=== PATIENT | female | born 1950 | race Caucasian/White ===

== ENCOUNTER → 2018-02-11 11:07 | Outpatient (CLI) | payer MEDICARE, OTHER, SELFPAY ==
[2018-02-11 15:40] LABS: Absolute Neutrophil Count 1.7 X10^3/uL (2.0-7.7); Basophil# 0.01 X10^3/uL; Basophil% 0.3 % (0-1); Eosinophil# 0.03 X10^3/uL; Eosinophils% 0.9 % (0-5); Hematocrit 42.8 % (37-47); Hemoglobin 13.1 g/dl (12.0-15.0); Lymphocyte % 37.2 % (19-41); Mean Corp Hgb Conc 30.6 g/gl (32-36); Mean Corpuscular Hgb 30.6 pg (27.0-32.0); Mean Platelet Vol. 10.5 fl (6.2-12.0); Monocyte# 0.25 X10^3/uL; Monocyte% 7.7 % (0-10); Neutrophil # 1.74 X10^3/uL (2.7-7.7); Neutrophil % 53.9 % (47-70); Platelet Count 159 K/mm3 (150-450); RBC Distribution Width CV 13.8 % (11.6-14.6); RBC Distribution Width SD 50.5 fl (35.1-43.9); Red Blood Count 4.28 M/mm3 (4.2-5.4); White Blood Count 3.2 K/mm3 (4.4-11.0)
[2018-02-11 15:48] LABS: BUN 15 mg/dL (7-18); Creatinine, Serum 0.85 mg/dL (0.55-1.02); Glucose 73 mg/dL (74-106)
[2018-02-11 15:49] LABS: ALB/GLOB Ratio 0.7 RATIO (0.9-2.4); AST(SGOT) 19 U/L (15-37); Alanine Aminotransfer ALT/SGPT 16 U/L (13-56); Albumin, Serum 2.9 g/dL (3.2-5.0); Alkaline Phosphatase 50 U/L (45-117); Anion Gap 6 (5-15); BUN/Creat Ratio 17.6 RATIO (10-20); Calcium,Total 8.7 mg/dL (8.5-10.1); Chloride 99 mmol/L (98-107); Cholesterol 182 mg/dL (200); EST Glomerular Filtration Rate 71 mL/min (>60); Est Glom Filt Rate - Afr Amer 86 mL/min (>60); High Density Lipoprotein 44 mg/dL; Potassium 4.4 mmol/L (3.5-5.1); Protein, Total 6.9 g/dL (6.4-8.2); Sodium Level 140 mmol/L (136-145); Thyroid Stim Hormone (TSH) 2.73 uIU/mL (0.358-3.74); Triglycerides 108 mg/dL; Very Low Density Lipoprotein 22 mg/dL (5-40)
[2018-02-11 15:51] LABS: POSITIVE COUNT NO; POSITIVE DIFFERENTIAL NO; POSITIVE MORPHOLOGY NO
== END ==
PROVIDERS: Family Provider Family Medicine; PCP Family Medicine; Visit Provider Family Medicine
DX: R10.9 Unspecified abdominal pain (principal); I10 Essential (primary) hypertension; E78.00 Pure hypercholesterolemia, unspecified; J43.9 Emphysema, unspecified; R53.83 Other fatigue; K59.00 Constipation, unspecified
CPT/HCPCS: 36415; 74018; 80053; 80061; 84443; 85025

== ENCOUNTER → 2018-02-11 11:41 | Outpatient (CLI) | payer MEDICARE, OTHER, SELFPAY ==
--- NOTE | 2018-02-11 12:20 | RAD_ITS ---
STUDY: X-RAY - ABDOMEN/PELVIS REASON FOR EXAM: Female, 67 years old. Abdominal pain and constipation for several years. Patient has history of hysterectomy for endometriosis. TECHNIQUE: Two AP supine views of the abdomen and pelvis. COMPARISON: CT of the abdomen and pelvis dated September 09, 2016. FINDINGS: Visualized heart appears to be enlarged. There are prominent bronchovascular markings at the lung bases. There is an unremarkable bowel gas pattern. There is no demonstrated free abdominal air. There is no obvious organomegaly, mass or dilated bowel. There are vascular calcifications of the common iliac arteries as well as the arteries of the proximal medial thighs.. There is large amount of bowel gas. Normal soft tissue structures. Patient has had previous thoracic spine surgery. The bones are osteopenic. There are mild degenerative changes of both hips. RAD/Abdomen Single View IMPRESSION: 1. Large amount of bowel gas. 2. No radiographic evidence of acute intra-abdominal disease. Electronically Signed: Danae Mayes MD at 7:25 EDT , Service support ,
== END ==
PROVIDERS: Family Provider Family Medicine; PCP Family Medicine; Visit Provider Family Medicine
DX: R10.9 Unspecified abdominal pain (principal); K59.00 Constipation, unspecified
CPT/HCPCS: 74018

== ENCOUNTER → 2018-06-24 09:28 | Outpatient (CLI) | payer MEDICARE, OTHER, SELFPAY ==
[2016-09-09 14:45] VITALS: BMI 29.3
--- NOTE | 2018-06-24 09:33 | RAD_ITS ---
STUDY: X-RAY CHEST REASON FOR EXAM: Female, 67 years old. Back pain TECHNIQUE: PA and lateral views of the chest. COMPARISON: 06/07/2014 FINDINGS: There is hyperinflation of the lungs consistent with chronic obstructive lung disease (COPD). There is no demonstrated pleural abnormality. There is mild cardiac enlargement. Normal mediastinum and mark. Normal visualized pulmonary arteries. There is atherosclerotic calcification of the aortic arch with tortuosity. Diffuse osteopenia. Posterior fusion hardware of the thoracic spine with stable exaggerated thoracic kyphosis. Normal visualized ribs, clavicles, and shoulders. There is no demonstrated abnormality of the visualized soft tissue structures of the upper abdomen. RAD/Chest PA and Lateral IMPRESSION: Stable, nonacute x-ray examination of the chest. Electronically Signed: David Edmondson MD at 18:29 EST , Service support ,
--- NOTE | 2018-06-24 09:33 | RAD_ITS ---
STUDY: X-RAY - THORACIC SPINE REASON FOR EXAM: Female, 67 years old. Back pain, prior back surgery TECHNIQUE: 3 view(s) of the thoracic spine were obtained. COMPARISON: CTA chest of 04/11/2014 FINDINGS: There is an increase in the normal thoracic kyphosis. There is no substantial scoliosis. There is demineralization of the thoracic spine. Multilevel posterior fusion of the thoracic spine standing compression of T6 and T7 although not well seen, compression appears more severe than prior CT. Atherosclerotic calcifications are identified. RAD/Thoracic Spine 3 Views IMPRESSION: Apparent increased compression of T6 and T7 but would better be evaluated with CT for assessment of interval change. Long segment thoracic posterior fusion. Electronically Signed: David Edmondson MD at 18:36 EST , Service support ,
== END ==
PROVIDERS: Family Provider Family Medicine; PCP Family Medicine; Referring Provider Family Medicine; Visit Provider Family Medicine
DX: J43.9 Emphysema, unspecified (principal); M54.6 Pain in thoracic spine
CPT/HCPCS: 71046; 72072

== ENCOUNTER → 2018-12-06 | Outpatient (CLI) | payer MEDICARE, OTHER, SELFPAY ==
[2018-12-06 15:09] LABS: Absolute Lymphocyte Count 1.05 X10^3/ul (0.83-4.51); Absolute Neutrophil Count 3.3 X10^3/uL (2.0-7.7); Basophil# 0.01 X10^3/uL; Basophil% 0.2 % (0-1); Eosinophil# 0.02 X10^3/uL; Eosinophils% 0.4 % (0-5); Hematocrit 45.1 % (37-47); Hemoglobin 14.3 g/dl (12.0-15.0); Lymphocyte # 1.05 X10^3/ul (4.0); Lymphocyte % 21.6 % (19-41); Mean Corp Hgb Conc 31.7 g/gl (32-36); Mean Corpuscular Volume 100.9 fL (81-99); Mean Platelet Vol. 10.3 fl (6.2-12.0); Monocyte# 0.47 X10^3/uL; Monocyte% 9.7 % (0-10); Neutrophil # 3.31 X10^3/uL (2.7-7.7); Neutrophil % 67.9 % (47-70); POSITIVE COUNT NO; POSITIVE DIFFERENTIAL NO; POSITIVE MORPHOLOGY NO; Platelet Count 143 K/mm3 (150-450); RBC Distribution Width CV 14.1 % (11.6-14.6); RBC Distribution Width SD 51.6 fl (35.1-43.9); Red Blood Count 4.47 M/mm3 (4.2-5.4); White Blood Count 4.9 K/mm3 (4.4-11.0)
[2018-12-06 15:27] LABS: ALB/GLOB Ratio 0.8 RATIO (0.9-2.4); AST(SGOT) 14 U/L (15-37); Alanine Aminotransfer ALT/SGPT 12 U/L (13-56); Alkaline Phosphatase 52 U/L (45-117); Anion Gap 5 (5-15); BUN 21 mg/dL (7-18); BUN/Creat Ratio 25.3 RATIO (10-20); Calcium,Total 8.9 mg/dL (8.5-10.1); Chloride 97 mmol/L (98-107); Creatinine, Serum 0.83 mg/dL (0.55-1.02); EST Glomerular Filtration Rate 73 mL/min (>60); Est Glom Filt Rate - Afr Amer 88 mL/min (>60); Globulin 3.9 g/dL (2.2-4.2); Glucose 98 mg/dL (74-106); Potassium 4.3 mmol/L (3.5-5.1); Protein, Total 6.9 g/dL (6.4-8.2); Sodium Level 139 mmol/L (136-145)
[2018-12-06 15:34] LABS: International Normalized Ratio 1.1; Prothrombin Time (Protime)PT. 13.7 SECONDS (11.7-14.9)
[2018-12-06 15:35] LABS: Partial Thromboplast Time 32.3 Seconds (24.1-36.2)
== END | disposition home or self-care (01) ==
PROVIDERS: Family Provider Family Medicine; PCP Family Medicine; Visit Provider Family Medicine
DX: R23.8 Other skin changes (principal); R23.3 Spontaneous ecchymoses; I10 Essential (primary) hypertension
CPT/HCPCS: 36415; 80053; 85025; 85610; 85730

== ENCOUNTER → 2018-12-13 | Outpatient (CLI) | payer MEDICARE, OTHER, SELFPAY ==
--- NOTE | 2018-12-13 09:52 | US_ITS ---
STUDY: ABDOMINAL ULTRASOUND REASON FOR EXAM: Female, 68 years old. Pain TECHNIQUE: Transabdominal ultrasound was performed with real-time and static pond scale imaging. TECHNICAL QUALITY: Adequate. COMPARISON: None. FINDINGS: Liver: The liver measures 16 cm. There is normal echogenicity of the liver. The bile ducts are within normal limits. There is hepatic color flow. The direction of portal flow is hepatopetal. There is no demonstrated mass lesion. Gallbladder: The gallbladder wall measures 2 mm. There is a negative sonographic Sung's sign. There is no pericholecystic fluid. There are no gallstones. Common Bile Duct (C.B.D.): The common bile duct measures 7 mm. Pancreas: Normal size of the head, body and tail of the pancreas. There is normal echogenicity of the pancreas. There is no demonstrated pancreatic mass or cyst. Spleen: The spleen is mildly enlarged. The spleen measures 11 cm. Right Kidney: The right kidney measures 11 cm. Normal renal cortex. There is a right renal 1.4 cm cyst and right renal 1 cm cyst.. There is mild right renal pelvis prominence. Left Kidney: The left kidney measures 12 cm. Normal renal cortex. There is a left renal 1.7 cm cyst and left renal 7 mm stone.. There is no left hydronephrosis. Aorta: The distal aorta measures 2.8 cm in diameter. I.V.C.: The IVC is patent. There is no ascites. US/Abdomen Complete IMPRESSION: No acute abdominal pathology identified. Bilateral renal cysts and left renal stone. Mild distal aorta ectasia. Mild right renal pelvis prominence. Mild splenomegaly. Electronically Signed: Elder Wood, at 21:31 EDT Tel , Service support ,
== END | disposition home or self-care (01) ==
LOC: US 09:50
PROVIDERS: Family Provider Family Medicine; PCP Family Medicine; Referring Provider Family Medicine; Visit Provider Family Medicine
DX: R10.12 Left upper quadrant pain (principal)
CPT/HCPCS: 76700

== ENCOUNTER 2019-03-03 16:14 | Inpatient (IN) | payer MEDICARE, OTHER, SELFPAY ==
[2019-03-03] VITALS (10 sets, daily range): BP systolic 75–166; BP diastolic 46–114; PULSE 57–76; RESP 15–18; TEMP 36.8–37.2; O2SAT 80–95; BMI 27.6; BMI 27.1
--- NOTE | 2019-03-03 16:36 | EKG12_ITS ---
Test Reason : SOB Blood Pressure : / mmHG Vent. Rate : 058 BPM Atrial Rate : 058 BPM P-R Int : 168 ms QRS Dur : 088 ms QT Int : 408 ms P-R-T Axes : 069 -07 049 degrees QTc Int : 400 ms Sinus bradycardia with marked sinus arrhythmia Low Voltage QRS (Limb Leads) Possible Left atrial enlargement Poor R- wave Progression Borderline ECG Confirmed by ROSA ROMERO, BENNY ([id number]), editor city JSOEPH EASLEY ([id number]) on 03/07/2019 10:22:11 AM Referred By: Quinn South Confirmed By:BENNY LEE MD
--- NOTE | 2019-03-03 17:15 | RAD_ITS ---
HISTORY:Weakness and not feeling well at all per patient. Weakness and not feeling well at all per patient. EXAM: XR Chest 1 View: COMPARISON: June 24, 2018 FINDINGS: # of images incl. paperwork: 2 LINES/DEVICES: None. LUNGS: Right basilar atelectasis. Mild interstitial thickening with hyper aeration seen within the upper lobe suspect for COPD similar to prior study. No consolidation, edema or effusion. No pneumothorax. MEDIASTINUM AND CARDIOVASCULAR STRUCTURES: Cardiac silhouette not enlarged. BONES AND SOFT TISSUES: Posterior rods and pedicle screws with metallic bridge seen at the superior aspect of the rods. Also at the mid to distal aspect. This is present on the prior study in similar RAD/Chest 1 View (Portable) IMPRESSION: Right basilar atelectasis The remainder the chest is similar at 1800 Reported and signed by: Melody Pleitez DO Electronically Signed: Melody Pleitez DO at 17:58 EDT Tel , Service support ,
[2019-03-03] MEDS: 0.9% Normal Saline 1,000 ML 999 ML IV ×3 (17:50→21:34)
[2019-03-03 18:01] LABS: Absolute Lymphocyte Count 1.16 X10^3/uL (0.83-4.51); Basophil# 0.02 X10^3/uL; Basophil% 0.4 % (0-1); Eosinophil# 0.01 X10^3/uL; Eosinophils% 0.2 % (0-5); Hematocrit 46.4 % (37-47); Lymphocyte # 1.16 X10^3/ul (4.0); Lymphocyte % 24.8 % (19-41); Mean Corp Hgb Conc 30.2 g/dL (32-36); Mean Corpuscular Hgb 31.7 pg (27.0-32.0); Monocyte# 0.42 X10^3/uL; NRBC Flagged by Analyzer 0 % (0-5); Neutrophil # 3.01 X10^3/uL (2.7-7.7); Neutrophil % 64.5 % (47-70); Platelet Count 145 K/mm3 (150-450); RBC Distribution Width CV 13.4 % (11.6-14.6); Red Blood Count 4.42 M/mm3 (4.2-5.4); White Blood Count 4.7 K/mm3 (4.4-11.0)
[2019-03-03 18:05] LABS: International Normalized Ratio 1.2; Prothrombin Time (Protime)PT. 14.5 SECONDS (11.7-14.9)
[2019-03-03 18:06] LABS: Partial Thromboplast Time 34.1 Seconds (24.1-36.2)
[2019-03-03 18:14] LABS: Lactic Acid 0.8 mmol/L (0.4-2.0)
[2019-03-03 18:16] LABS: ALB/GLOB Ratio 0.7 RATIO (0.9-2.4); AST(SGOT) 15 U/L (15-37); Alanine Aminotransfer ALT/SGPT 12 U/L (13-56); Albumin, Serum 3.2 g/dL (3.2-5.0); Alkaline Phosphatase 63 U/L (45-117); Anion Gap 1 (5-15); BUN 23 mg/dL (7-18); BUN/Creat Ratio 23.9 RATIO (10-20); Chloride 97 mmol/L (98-107); Creatinine, Serum 0.96 mg/dL (0.55-1.02); EST Glomerular Filtration Rate 61 mL/min (>60); Est Glom Filt Rate - Afr Amer 74 mL/min (>60); Estimated Creatinine Clearance 52.51 ml/min; Globulin 4.3 g/dL (2.2-4.2); Glucose 88 mg/dL (74-106); Protein, Total 7.5 g/dL (6.4-8.2); Sodium Level 138 mmol/L (136-145); Thyroid Stim Hormone (TSH) 1.34 uIU/mL (0.358-3.74)
[2019-03-03 20:14] LABS: Bacteria 0 SEEN /hpf (None Seen); Mucous, Urine 0 SEEN /hpf (<or=2+); Red Blood Cells-Urine 0 SEEN /hpf (0-5); White Blood Cells 0 SEEN /hpf (0-5)
[2019-03-03 20:35] LABS: Color, Urine Yellow (Yellow); Glucose, Dipstick Normal (Normal); Ketone-Dipstick Negative (Negative); Leukocyte Esterase-Dipstick Negative /ul (Negative); Nitrite-Dipstick Negative (Negative); Occult Blood-Urine Negative /ul (Negative); Protein-Dipstick 30 mg/dl (Negative); Specific Gravity, Urine 1.015 (1.002-1.030); Urine Bilirubin Dipstick Negative (Negative); Urine Clarity Clear (Clear); Urine Urobilinogen Normal (Normal)
[2019-03-03 20:57] LABS: Squamous Epithelial Cells - UA 0-5 SEEN /hpf (5-10)
--- NOTE | 2019-03-03 21:12 | PCM.HP.STD ---
Problem List (1) Generalized weakness Status: Acute (2) Hypotension Status: Acute History of Present Illness Date of Admission: 03/03/19 Chief Complaint: weakness The patient is a 68 year old F with a significant history of COPD; chronic back pain and this disease with rods in her back; and hyperlipidemia who presents emergency department with generalized weakness. On day of presentation patient was too weak that she could not go about her activities of daily living. Typically patients get around with her wheelchair and can stand up momentarily to do some chores. However on the day of presentation she was too weak to get around. At the emergency department her blood pressure was found to be low but patient reported that her blood pressure is typically low with systolic in the 80s even though she still continues to be on blood pressure medications. Past Medical History Medical History: Medical History (Last Reviewed 03/04/19 @ 05:44 by Quinn South MD) HTN (hypertension) I10 Allergies No Known Allergies Allergy (Verified 09/09/16 14:43) Home Medications: Ambulatory Orders Medication Instructions Recorded Lisinopril/Hydrochlorothiazide 1 tablet PO DAILY 10/18/13 [Zestoretic Tablet] Gabapentin [Neurontin] 600 mg PO BID 03/03/19 Gemfibrozil 600 mg PO BID 03/03/19 Morphine Sulfate [Morphine Sulfate 30 mg PO DAILY 03/03/19 ER] Morphine Sulfate [Morphine Sulfate 60 mg PO DAILY 03/03/19 ER] Pregabalin 50 mg PO TID 03/03/19 Smz/Tmp Ds [Bactrim Ds] 1 tab PO BID 03/03/19 Surgical History: - - Rods at the back. Lives: Spouse/ Significant Other Smoking Status: Current every day smoker Tobacco Use: Cigarettes Alcohol: None - *Family History Maternal History Items: Heart Disease Paternal History Items: Heart Disease Review of Systems Constitutional: Reports: Weakness, Fatigue. Denies: Chills, Fever, Weight Change HEENT: Denies: Head Aches, Sinus Congestion, Sinus Drainage Cardiovascular: Denies: Chest Pain, Palpitations Respiratory: Denies: Cough, Shortness of breath at rest, Sputum production Gastrointestinal: Denies: Abdominal Pain, Nausea, Vomiting Genitourinary: Denies: Dysuria Musculoskeletal: Reports: Back Pain - chronic. Denies: Joint Pain, Joint Tenderness Skin: Reports: Wounds - open area at coccyx.. Denies: Rash Neurological: Denies: Numbness, Tingling, Focal weakness Psychiatric: Denies: Anxiety, Depression, Homicidal Ideations, Suicidal Ideations Hematologic/ Lymphatic: Denies: Easy Bruising, Easy Bleeding VTE Information - Inpt Only VTE Present on Admission: No VTE Mechan Device Prophylaxis: None VTE Pharm Prophylaxis ordered?: Yes Patient Problems: Active and Suspected Problems (Last Reviewed 03/04/19 @ 05:44 by Quinn South MD) Generalized weakness (Acute) Hypotension (Acute) - Physical Exam General: Oriented x3, Lethargic HEENT: Atraumatic, PERRLA, EOMI, Normocephalic Neck: Supple, No JVD, Negative Carotid Bruits Lungs: Clear to auscultation Cardiovascular: Regular rate, Normal S1, Normal S2, No murmurs Abdomen: Bowel Sounds Present, Soft, Non Tender Extremities: No edema, Capillary Refill Less than 3 Seconds Skin: Ulcer/ Wound - ulcer at coccyx. Musculoskeletal: No Muscle Wasting Neurological: Cranial nerves II-XII grossly intact Psych/Mental Status: Impulsive, - - Tangential conversation. At times changes answers. Vital Signs Temp Pulse Resp BP Pulse Ox 98.2 F 72 15 85/61 L 93 03/03/19 19:21 03/03/19 20:00 03/03/19 20:00 03/03/19 20:00 03/03/19 20:00 Oxygen Flow Rate (L/min) 5 Oxygen Delivery Method Nasal Cannula Weight: 77.8 kg Body Mass Index (BMI) 27.6 Intake and Output for Last 24 Hours 03/01/19 03/02/19 03/03/19 23:59 23:59 23:59 Intake Total 1000 / 1000 Balance 1000 / 1000 Laboratory Tests Past 24 Hrs 03/03/19 03/03/19 03/03/19 17:40 17:40 17:40 WBC 4.7 RBC 4.42 Hgb 14.0 Hct 46.4 MCV 105.0 H MCH 31.7 MCHC 30.2 L RDW Std Deviation 52.0 H RDW Coeff of [place]ver[place] 13.4 Plt Count 145 L MPV 10.0 Immature Gran % (Auto) 1.100 H Neut % (Auto) 64.5 Lymph % (Auto) 24.8 [place] % (Auto) 9.0 Eos % (Auto) 0.2 Baso % (Auto) 0.4 Absolute Neuts (auto) 3.0 Absolute Lymphs (auto) 1.16 Nucleated RBC % 0 PT 14.5 INR 1.2 APTT 34.1 Sodium 138 Potassium 5.0 Chloride 97 L Carbon Dioxide 40.0 H Anion Gap 1 L BUN 23 H Creatinine 0.96 Estim Creat Clear Calc 52.51 Est GFR (MDRD) Af Amer 74 Est GFR (MDRD) Non-Af 61 BUN/Creatinine Ratio 23.9 H Glucose 88 Lactic Acid Calcium 9.0 Total Bilirubin 0.30 AST 15 ALT 12 L Alkaline Phosphatase 63 Troponin I < 0.015 Total Protein 7.5 Albumin 3.2 Globulin 4.3 H Albumin/Globulin Ratio 0.7 L TSH 1.34 Urine Color Urine Clarity Urine pH Ur Specific [place] Urine Protein Urine Glucose (UA) Urine Ketones Urine Occult Blood Urine Nitrite Urine Bilirubin Urine Urobilinogen Ur Leukocyte Esterase Urine RBC Urine WBC Ur Squamous Epith Cells Urine Bacteria Urine Mucus 03/03/19 03/03/19 17:40 20:00 WBC RBC Hgb Hct MCV MCH MCHC RDW Std Deviation RDW Coeff of [place] Plt Count MPV Immature Gran % (Auto) Neut % (Auto) Lymph % (Auto) [place] % (Auto) Eos % (Auto) Baso % (Auto) Absolute Neuts (auto) Absolute Lymphs (auto) Nucleated RBC % PT INR APTT Sodium Potassium Chloride Carbon Dioxide Anion Gap BUN Creatinine Estim Creat Clear Calc Est GFR (MDRD) Af Amer Est GFR (MDRD) Non-Af BUN/Creatinine Ratio Glucose Lactic Acid 0.8 Calcium Total Bilirubin AST ALT Alkaline Phosphatase Troponin I Total Protein Albumin Globulin Albumin/Globulin Ratio TSH Urine Color Yellow Urine Clarity Clear Urine pH 6.0 Ur Specific [place] 1.015 Urine Protein 30 H Urine Glucose (UA) Normal Urine Ketones Negative Urine Occult Blood Negative Urine Nitrite Negative Urine Bilirubin Negative Urine Urobilinogen Normal Ur Leukocyte Esterase Negative Urine RBC 0 SEEN Urine WBC 0 SEEN Ur Squamous Epith Cells 0-5 SEEN Urine Bacteria 0 SEEN Urine Mucus 0 SEEN Assessment/Plan All Active Problems (Last Reviewed 03/04/19 @ 05:44 by Quinn South MD) Generalized weakness (Acute) Hypotension (Acute) The patient is a 68 year old F with a significant history of COPD; chronic back pain and this disease with rods in her back; and hyperlipidemia who presents emergency department with generalized weakness; and hypotension. Generalized weakness Patient is on multiple sedating medications. Will de-escalate her home morphine and gabapentin. Hold Lyrica. Patient working PT and OT. Check TSH Hypotension Reported chronic. Would hold home lisinopril and hydrochlorothiazide. De-escalate sedating medications as above Acute Encephalopathy Likely due to multiple drug use and hypertension. De-escalate medications as above DVT Prophylaxis Subcutaneous lovenox Code Visit OBSV E&M: 29030 Initial observation care L3
--- NOTE | 2019-03-03 21:23 | ED.VISSUMM ---
- ER Visit Summary Date of Service: 03/03/19 Chief Complaint: Weakness History of Present Illness: The patient is a 68 F who presents with generalized weakness. Symptoms have been going on for some time, but they were worse over the last 2 days. Nothing seemed to bring this on. She never had this before. She lives with her . She can barely stand or use the bathroom. She required EMS to bring her to the ED for evaluation. She has no new symptoms otherwise. No other complaints. She has chronic back pain with hardware. She takes Bactrim to suppress history of infections. She is denying any increasing back pain or fevers. Denies any focal neurologic symptoms. Her review of systems otherwise is completely negative. She denies any new medications. Physical Examination: Blood pressure 95/75. Heart rate 57. Afebrile and otherwise vitals unremarkable. Alert and oriented. No acute distress. Speaking full sentences without any distress. Moving comfortably in bed. Head and neck are atraumatic. Heart regular rate and rhythm. Lungs clear. Abdomen soft and nontender. Extremities nontender. Strength and sensation intact, symmetric. No focal or lateralizing neurologic abnormalities. Test Results: EKG showed sinus rhythm at a rate of 58. No acute abnormalities. Chest x-ray showed right basilar atelectasis. Nothing else acute or abnormal. Platelets stable 145, metabolic panel unremarkable. Coags normal. Urinalysis normal. Troponin and lactate normal. Cultures pending. TSH normal. Emergency Department Course and Treatment: Patient presents with generalized weakness. She has no other symptoms to narrow down the differential diagnosis. I checked a broad work-up. Results as above. On reevaluation, patient has some intermittent low blood pressures. She is mentating well. Heart rate is in the 50s. She says this is normal. I looked back her old vital signs from 2017, and they were within normal limits. She is taking lisinopril and HCTZ. No other blood pressure medications. I suspect that these may be contributing and that she may benefit from discontinuing these. I find no other cause for her hypotension emergently. I find no other cause for her generalized weakness. She is not doing well at home and is concerned about safety. I contacted the hospitalist who will admit for further care. Treatment Plan: As above Disposition: Admission Impression: 1. Generalized weakness This note was generated with [employer] software. It may contain incorrect words, spelling, and punctuation that were not noted in review of the chart prior to signing ED Disposition - Plan for ED Patient: Referrals: Matthew Valdivia DO [Primary Care Provider] -
[2019-03-03] MEDS: Smz/Tmp Ds Tablet 1 TABLET PO (23:31)
[2019-03-03] MEDS: Gemfibrozil 600 MG Tablet PO (23:31)
[2019-03-03] MEDS: Gabapentin 300 MG Capsule PO (23:31)
[2019-03-03] MEDS: Menthol/Lanolin/Calamine/Znox 113 GM Tube 1 APPLIC TOPICAL (23:31)
[2019-03-04] VITALS (11 sets, daily range): BP systolic 101–131; BP diastolic 40–78; PULSE 59–84; RESP 15–19; TEMP 36.8–37.2; O2SAT 90–95
[2019-03-04] MEDS: Gemfibrozil 600 MG Tablet PO ×2 (06:47→18:34)
[2019-03-04 07:56] LABS: Absolute Lymphocyte Count 0.63 X10^3/uL (0.83-4.51); Absolute Neutrophil Count 2.9 X10^3/uL (2.0-7.7); Basophil# 0.01 X10^3/uL; Basophil% 0.3 % (0-1); Hemoglobin 13.4 g/dL (12.0-15.0); Lymphocyte # 0.63 X10^3/ul (4.0); Lymphocyte % 16.8 % (19-41); Mean Corp Hgb Conc 31.2 g/dL (32-36); Mean Corpuscular Hgb 31.9 pg (27.0-32.0); Mean Corpuscular Volume 102.4 fL (81-99); Mean Platelet Vol. 10.3 fl (6.2-12.0); Monocyte# 0.19 X10^3/uL; Monocyte% 5.1 % (0-10); NRBC Flagged by Analyzer 0 % (0-5); Neutrophil # 2.88 X10^3/uL (2.7-7.7); POSITIVE COUNT YES; Platelet Count 102 K/mm3 (150-450); RBC Distribution Width CV 13.2 % (11.6-14.6); RBC Distribution Width SD 49.7 fl (35.1-43.9); White Blood Count 3.7 K/mm3 (4.4-11.0)
[2019-03-04 08:04] LABS: Differential Indicated SCAN CRITERIA MET
[2019-03-04 08:23] LABS: Anion Gap 4 (5-15); BUN 20 mg/dL (7-18); BUN/Creat Ratio 29.1 RATIO (10-20); Calcium,Total 8.7 mg/dL (8.5-10.1); Chloride 106 mmol/L (98-107); Creatinine, Serum 0.69 mg/dL (0.55-1.02); EST Glomerular Filtration Rate 90 mL/min (>60); Est Glom Filt Rate - Afr Amer 109 mL/min (>60); Estimated Creatinine Clearance 50.41 ml/min; Glucose 72 mg/dL (74-106); Potassium 4.3 mmol/L (3.5-5.1); Sodium Level 136 mmol/L (136-145)
[2019-03-04] MEDS: Smz/Tmp Ds Tablet 1 TABLET PO ×2 (10:58→18:34)
[2019-03-04] MEDS: morphine SR 15 MG Tablet PO ×2 (10:58→21:00)
[2019-03-04] MEDS: Gabapentin 300 MG Capsule PO ×2 (10:58→21:01)
[2019-03-04] MEDS: Enoxaparin 40 MG/0.4 ML Syringe SC (10:59)
[2019-03-04 11:56] LABS: Magnesium 1.7 mg/dL (1.6-2.6)
--- NOTE | 2019-03-04 13:27 | PN_ITS ---
Patient Problems: Active and Suspected Problems (Last Reviewed 03/04/19 @ 05:44 by Quinn South MD) Generalized weakness (Acute) Hypotension (Acute) Subjective: Patient seen and examined. She complains of leg cramps and feeling tired. Denies chest pain, dizziness. She is wheelchair-bound at baseline and does not move around much. She is on 5 L of oxygen from chronic COPD. She continues to smoke. Discussed with the patient and the at the bedside, depending on what physical and Occupational Therapy says patient will be eligible for subacute care. Vitals/I&O's: Vital Signs Temp Pulse Resp BP Pulse Ox 98.7 F 68 15 114/40 L 90 03/04/19 09:01 03/04/19 12:09 03/04/19 09:01 03/04/19 09:01 03/04/19 11:10 Oxygen Flow Rate (L/min) 5 Oxygen Delivery Method Nasal Cannula Weight: 76.1 kg Body Mass Index (BMI) 27.1 Intake and Output for Last 24 Hours 03/02/19 03/03/19 03/04/19 23:59 23:59 23:59 Intake Total 2500 / 2600 150 / 150 Balance 2500 / 2600 150 / 150 General: Alert, Oriented x3, Cooperative, - - on 5L oxygen HEENT: Atraumatic, PERRLA, EOMI, Normocephalic Oral: Moist Mucosa Neck: Supple Lungs: Clear to auscultation, Normal air movement Cardiovascular: Regular rate, Regular Rhythm, Normal S1, Normal S2, No murmurs Abdomen: Bowel Sounds Present, Soft, Non Tender, Non-Distended, No Hepato- splenomegaly Extremities: No edema Skin: No rashes, No breakdown Musculoskeletal: No Tenderness to Palpation of Joints or Extremities Lymphatic: No Cervical, Supraclavicular, or Inguinal Adenopathy Neurological: Cranial nerves II-XII grossly intact, Neuro grossly intact - except for weakness in left lower extremity. Psych/Mental Status: Normal Affect, Appropriate Laboratory Results 03/03/19 17:40: Sodium 138, Potassium 5.0, Chloride 97 L, Carbon Dioxide 40.0 H, Anion Gap 1 L, BUN 23 H, Creatinine 0.96, Estim Creat Clear Calc 52.51, Est GFR (MDRD) Af Amer 74, Est GFR (MDRD) Non-Af 61, BUN/Creatinine Ratio 23.9 H, Glucose 88, Calcium 9.0, Total Bilirubin 0.30, AST 15, ALT 12 L, Alkaline Phosphatase 63, Troponin I < 0.015, Total Protein 7.5, Albumin 3.2, Globulin 4.3 H, Albumin/Globulin Ratio 0.7 L, TSH 1.34 03/03/19 17:40: WBC 4.7, RBC 4.42, Hgb 14.0, Hct 46.4, MCV 105.0 H, MCH 31.7, MCHC 30.2 L, RDW Std Deviation 52.0 H, RDW Coeff of Alverto 13.4, Plt Count 145 L, MPV 10.0, Immature Gran % (Auto) 1.100 H, Neut % (Auto) 64.5, Lymph % (Auto) 24.8, [place] % (Auto) 9.0, Eos % (Auto) 0.2, Baso % (Auto) 0.4, Absolute Neuts (auto) 3.0, Absolute Lymphs (auto) 1.16, Nucleated RBC % 0 03/03/19 17:40: PT 14.5, INR 1.2, APTT 34.1 03/03/19 17:40: Lactic Acid 0.8 03/03/19 20:00: Urine Color Yellow, Urine Clarity Clear, Urine pH 6.0, Ur Specific [place] 1.015, Urine Protein 30 H, Urine Glucose (UA) Normal, Urine Ketones Negative, Urine Occult Blood Negative, Urine Nitrite Negative, Urine Bilirubin Negative, Urine Urobilinogen Normal, Ur Leukocyte Esterase Negative, Urine RBC 0 SEEN, Urine WBC 0 SEEN, Ur Squamous Epith Cells 0-5 SEEN, Urine Bacteria 0 SEEN, Urine Mucus 0 SEEN 03/04/19 07:35: WBC 3.7 L, RBC 4.20, Hgb 13.4, Hct 43.0, MCV 102.4 H, MCH 31.9, MCHC 31.2 L, RDW Std Deviation 49.7 H, RDW Coeff of [place]verto 13.2, Plt Count 102 L, MPV 10.3, Immature Gran % (Auto) 0.800, Neut % (Auto) 77.0 H, Lymph % (Auto) 16.8 L, [place] % (Auto) 5.1, Eos % (Auto) 0.0, Baso % (Auto) 0.3, Absolute Neuts (auto) 2.9, Absolute Lymphs (auto) 0.63 L, Nucleated RBC % 0 03/04/19 07:35: Sodium 136, Potassium 4.3, Chloride 106, Carbon Dioxide 26.0, Anion Gap 4 L, BUN 20 H, Creatinine 0.69, Estim Creat Clear Calc 50.41, Est GFR (MDRD) Af Amer 109, Est GFR (MDRD) Non-Af 90, BUN/Creatinine Ratio 29.1 H, Glucose 72 L, Calcium 8.7 03/04/19 11:30: Magnesium 1.7 Current Medications Acetaminophen (Tylenol) 650 mg PO Q6H PRN PRN PRN Reason: Mild pain 1-3/Temp > 100.7 F Calamine/Phenol (Calmoseptine Ointment) 1 applic TOPICAL TID [facility]; Protocol Last Admin: 03/04/19 06:47 Dose: Not Given Documented by: Dextrose (D50w Syringe) 0 gm IV X1 PRN; Protocol PRN Reason: Hypoglycemia Enoxaparin Sodium (Lovenox) 40 mg SC DAILY@1000 [facility] Last Admin: 03/04/19 10:59 Dose: 40 mg Documented by: Gabapentin (Neurontin) 300 mg PO BID [facility] Last Admin: 03/04/19 10:58 Dose: 300 mg Documented by: Gemfibrozil (Lopid) 600 mg PO BIDAC [facility] Last Admin: 03/04/19 06:47 Dose: 600 mg Documented by: Glucagon () 1 mg IM .X1 PRN PRN Reason: Hypoglycemia Sodium Chloride () 250 mls @ 15 mls/hr IV .[id number] PRN PRN Reason: SALINE FLUSH Morphine Sulfate (Ms Contin) 15 mg PO BID [facility] Last Admin: 03/04/19 10:58 Dose: 15 mg Documented by: Nicotine (Nicoderm Cq (Pbkc)) 21 mg TRANSDERM. DAILY [facility] Nicotine Polacrilex ([place] Nicotine (Pbkc)) 4 mg PO Q2H PRN PRN PRN Reason: Nicotine Craving Nutritional Formula (Lactose Free) (Ensure Enlive) 120 ml PO 4X/DAY [facility] Last Admin: 03/04/19 10:59 Dose: 120 ml Documented by: Sodium Chloride () 5 - 15 ml IV UD PRN PRN Reason: SALINE FLUSH Trimethoprim/[facility]ulfamethox[facility]s) [facility] Last Admin: 03/04/19 10:58 Dose: 1 tablet Documented by: Medical Necessity - Tobacco Use Smoking Status: Current every day smoker Tobacco Use: Cigarettes Assessment/Plan All Active Problems (Last Reviewed 03/04/19 @ 05:44 by Quinn South MD) Generalized weakness (Acute) Hypotension (Acute) 68 y/o female with PMHx of COPD and chronic back pain, s/p multiple back santana rgeries,wheel- chair bound who comes in with progressive generalized weakness and hypotension. 1. Hypotension, medication side effect, improved on IV fluids Off lisinopril, hydrochlorothiazide Continue to monitor 2. Progressive debility in a patient who is wheelchair-bound, history of multiple back surgeries Normal blood work, will wait for PT and OT to evaluate May need subacute care in the nursing facility 3. Hypomagnesemia, symptomatic leg cramps, replaced, recheck in am 4. Acute encephalopthy continue to polypharmacy, Lyrica held. Continue to monitor off Lyrica 5. DVT PPx- Lovenox SC Code Visit Inpatient E&M: 45200 Subs Hosp L2
[2019-03-04] MEDS: Menthol/Lanolin/Calamine/Znox 113 GM Tube 1 APPLIC TOPICAL ×2 (15:14→21:01)
--- NOTE | 2019-03-04 15:50 | CASEMGMT ---
Social Work Consult: SNF placement Informant: Dr. Mcgee Met with patient and patient family in room. Introduced self as well as social work msw role. Patient prior level of wheelchair with assistance from spouse. Patient and patient family believe that patient is weaker and unable to return to home at prior level. Dr. Mcgee is recommending half-way placement for patient. This social work msw providing patient with list of Nursing homes for patient to choose from. Patient and patient family planning to discuss further over the weekend but that this time [facility] is first choice. Support provided. Social Work to continue to follow. Dominique Maddox MSW, BRIAN
[2019-03-04] MEDS: Ondansetron 4 MG/2 ML Vial IV (17:43)
[2019-03-05] VITALS (14 sets, daily range): BP systolic 94–135; BP diastolic 45–63; PULSE 51–70; RESP 16–20; TEMP 36.8–37.3; O2SAT 94–99
[2019-03-05] MEDS: Menthol/Lanolin/Calamine/Znox 113 GM Tube 1 APPLIC TOPICAL ×3 (06:59→21:50)
[2019-03-05] MEDS: Gemfibrozil 600 MG Tablet PO ×2 (07:00→16:23)
[2019-03-05] MEDS: Enoxaparin 40 MG/0.4 ML Syringe SC (10:51)
[2019-03-05] MEDS: Gabapentin 300 MG Capsule PO ×2 (10:51→21:42)
[2019-03-05] MEDS: morphine SR 15 MG Tablet PO ×2 (10:51→21:45)
[2019-03-05] MEDS: Smz/Tmp Ds Tablet 1 TABLET PO ×2 (10:51→16:23)
[2019-03-05 11:32] LABS: Anion Gap 4 (5-15); BUN 19 mg/dL (7-18); BUN/Creat Ratio 24.4 RATIO (10-20); Calcium,Total 8.6 mg/dL (8.5-10.1); Chloride 100 mmol/L (98-107); Creatinine, Serum 0.78 mg/dL (0.55-1.02); EST Glomerular Filtration Rate 78 mL/min (>60); Est Glom Filt Rate - Afr Amer 95 mL/min (>60); Estimated Creatinine Clearance 50.41 ml/min; Glucose 122 mg/dL (74-106); Magnesium 1.9 mg/dL (1.6-2.6); Potassium 3.8 mmol/L (3.5-5.1); Sodium Level 140 mmol/L (136-145)
--- NOTE | 2019-03-05 13:28 | PN_ITS ---
Patient Problems: Active and Suspected Problems (Last Reviewed 03/04/19 @ 05:44 by Quinn South MD) Generalized weakness (Acute) Hypotension (Acute) Subjective: Patient was seen and examined. Denied any new complains. She appears more alert today. Sitting in a chair, drinking coffee. No more leg cramps Objective: Physical exam: General: Alert, Oriented x3, Cooperative, - - on 5L oxygen HEENT: Atraumatic, PERRLA, EOMI, Normocephalic Oral: Moist Mucosa Neck: Supple Lungs: Clear to auscultation, Normal air movement Cardiovascular: Regular rate, Regular Rhythm, Normal S1, Normal S2, No murmurs Abdomen: Bowel Sounds Present, Soft, Non Tender, Non-Distended, No Hepato- splenomegaly Extremities: No edema Skin: No rashes, No breakdown Musculoskeletal: No Tenderness to Palpation of Joints or Extremities Lymphatic: No Cervical, Supraclavicular, or Inguinal Adenopathy Neurological: Cranial nerves II-XII grossly intact, Neuro grossly intact - except for weakness in left lower extremity. Psych/Mental Status: Normal Affect, Appropriate Vitals/I&O's: Vital Signs Temp Pulse Resp BP Pulse Ox 98.3 F 56 L 18 100/61 96 03/05/19 09:20 03/05/19 11:20 03/05/19 09:20 03/05/19 09:20 03/05/19 09:20 Oxygen Flow Rate (L/min) 3 Oxygen Delivery Method Nasal Cannula Weight: 76.1 kg Body Mass Index (BMI) 27.1 Intake and Output for Last 24 Hours 03/03/19 03/04/19 03/05/19 23:59 23:59 23:59 Intake Total 2500 / 2600 1214 / 1214 240 / 240 Balance 2500 / 2600 1214 / 1214 240 / 240 Microbiology Past 72 Hours 03/03/19 20:00 Urine, Clean Catch Urine Culture - Preliminary Culture exhibits no growth. Laboratory Results 03/05/19 10:50: Sodium 140, Potassium 3.8, Chloride 100, Carbon Dioxide 36.0 H, Anion Gap 4 L, BUN 19 H, Creatinine 0.78, Estim Creat Clear Calc 50.41, Est GFR (MDRD) Af Amer 95, Est GFR (MDRD) Non-Af 78, BUN/Creatinine Ratio 24.4 H, Glucose 122 H, Calcium 8.6, Magnesium 1.9 Current Medications Acetaminophen (Tylenol) 650 mg PO Q6H PRN PRN PRN Reason: Mild pain 1-3/Temp > 100.7 F Calamine/Phenol (Calmoseptine Ointment) 1 applic TOPICAL TID [facility]; Protocol Last Admin: 03/05/19 06:59 Dose: 1 applicatio Documented by: Dextrose (D50w Syringe) 0 gm IV X1 PRN; Protocol PRN Reason: Hypoglycemia Enoxaparin Sodium (Lovenox) 40 mg SC DAILY@1000 [facility] Last Admin: 03/05/19 10:51 Dose: 40 mg Documented by: Gabapentin (Neurontin) 300 mg PO BID [facility] Last Admin: 03/05/19 10:51 Dose: 300 mg Documented by: Gemfibrozil (Lopid) 600 mg PO BIDAC [facility] Last Admin: 03/05/19 07:00 Dose: 600 mg Documented by: Glucagon () 1 mg IM .X1 PRN PRN Reason: Hypoglycemia Sodium Chloride () 250 mls @ 15 mls/hr IV .[id number] PRN PRN Reason: SALINE FLUSH Morphine Sulfate (Ms Contin) 15 mg PO BID [facility] Last Admin: 03/05/19 10:51 Dose: 15 mg Documented by: Nicotine (Nicoderm Cq (Pbkc)) 21 mg TRANSDERM. DAILY [facility] Last Admin: 03/05/19 10:51 Dose: 21 mg Documented by: Nicotine Polacrilex (Rugby Nicotine (Pbkc)) 4 mg PO Q2H PRN PRN PRN Reason: Nicotine Craving Nutritional Formula (Lactose Free) (Ensure Enlive) 120 ml PO 4X/DAY [facility] Last Admin: 03/05/19 10:51 Dose: 120 ml Documented by: Ondansetron HCl (Zofran) 4 mg IV Q8H PRN PRN PRN Reason: NAUSEA Last Admin: 03/04/19 17:43 Dose: 4 mg Documented by: Sodium Chloride () 5 - 15 ml IV UD PRN PRN Reason: SALINE FLUSH Trimethoprim/Sulfamethoxazole (Bactrim Ds) 1 tablet PO BIDCM [facility] Last Admin: 03/05/19 10:51 Dose: 1 tablet Documented by: Medical Necessity - Tobacco Use Smoking Status: Current every day smoker Tobacco Use: Cigarettes Assessment/Plan All Active Problems (Last Reviewed 03/04/19 @ 05:44 by Quinn South MD) Generalized weakness (Acute) Hypotension (Acute) 68 y/o female with PMHx of COPD and chronic back pain, s/p multiple back surgeries,wheel-chair bound who comes in with progressive generalized weakness and hypotension. 1. Hypotension secondary to medication side effect, BP appears improved compared to BP on admission Continue to monitor off lisinopril and hydrochlorothiazide 2. Acute encephalopathy secondary to polypharmacy, improved. Continue to hold Lyrica. 3. Hypomagnesemia, replaced, recheck in am 4. Progressive debility in a patient who is wheelchair-bound, history of multiple back surgeries Discharge planning with geriatric social work professor/case management in progress 5. Nicotine dependence, on replacement 6. DVT PPx- Lovenox SC 7. Disposition: DC to SNF when bed is available, Code Visit Inpatient E&M: 05091 Subs Hosp L2
[2019-03-05] MEDS: 0.9% NaCl Peripheral Flush Adult/Peds IV ×2 (15:11→17:22)
--- NOTE | 2019-03-05 17:25 | NURSING ---
read and reviewed all SN documentation
[2019-03-06] VITALS (11 sets, daily range): BP systolic 92–140; BP diastolic 44–64; PULSE 52–70; RESP 11–18; TEMP 36.8–37.2; O2SAT 94–98
[2019-03-06] MEDS: Menthol/Lanolin/Calamine/Znox 113 GM Tube 1 APPLIC TOPICAL ×3 (05:56→21:14)
[2019-03-06] MEDS: Gemfibrozil 600 MG Tablet PO ×2 (05:56→16:51)
[2019-03-06 06:29] LABS: Anion Gap 6 (5-15); BUN 19 mg/dL (7-18); BUN/Creat Ratio 24.7 RATIO (10-20); Calcium,Total 8.7 mg/dL (8.5-10.1); Chloride 99 mmol/L (98-107); Creatinine, Serum 0.77 mg/dL (0.55-1.02); EST Glomerular Filtration Rate 79 mL/min (>60); Est Glom Filt Rate - Afr Amer 96 mL/min (>60); Estimated Creatinine Clearance 50.41 ml/min; Glucose 82 mg/dL (74-106); Potassium 3.9 mmol/L (3.5-5.1); Sodium Level 142 mmol/L (136-145)
[2019-03-06] MEDS: morphine SR 15 MG Tablet PO ×2 (08:33→21:16)
[2019-03-06] MEDS: Enoxaparin 40 MG/0.4 ML Syringe SC (08:33)
[2019-03-06] MEDS: Gabapentin 300 MG Capsule PO ×2 (08:33→21:16)
[2019-03-06] MEDS: Smz/Tmp Ds Tablet 1 TABLET PO ×2 (08:33→16:51)
--- NOTE | 2019-03-06 08:43 | NURSING ---
Was asked to see patient for wound to sacrum. pt up in chair at this time and states she just got comfortable. prefers that this nurse come back later to asses the sacrum.
--- NOTE | 2019-03-06 09:43 | CASEMGMT ---
SW had a noted on desk that indicates [facility] post [facility] referral [facility] and left a message with referral. SW spoke with patient and she confirmed her 1st choice is TCU. SW told her SW has a call out to TCU to see if they have a room available. Await return call. Cheryl TORRES MSW
--- NOTE | 2019-03-06 11:12 | CASEMGMT ---
TANG received a call from [facility] and she said the only way they would have a bed in TCU would be if another patient gets denied by her insurance. TANG told her to keep patient's name on the list and SW will also make a referral to [facility], patient's second choice. TANG called [facility] with referral as well as faxed information. TANG also let [facility] know that if a bed opens in TCU patient wants TCU. She verbalized understanding. TANG will notify patient. Plan: TCU vs [facility]. Cheryl TORRES MSW
--- NOTE | 2019-03-06 11:34 | CASEMGMT ---
Addendum entered by Cheryl Zaragoza 03/06/19 12:47: TANG spoke with patient and her after GISSELLE Hillman spoke with her. She said she would go to TCU, but nowhere else. TANG told her there may not be a bed in TCU tomorrow and she said she would go home if that is the case. Plan: TCU if there is a bed and if not home. Cheryl Magallanes Nik [employer] Addendum entered by Cheryl Zaraogza 03/06/19 11:55: GISSELLE spoke with patient and she is in agreement with TCU. SW will go back in and let patient know there may not be a bed in TCU and she may have to go to [facility] (her 2nd choice). Cheryl TORRES [employer]ORE J[employer] SOFTWARE ENGINEER Original Note: SW went to patient's room to let her know about the bed situation in TCU and [facility] being a back up plan. Patient's was in the room and he said I thought she was going home tomorrow. TANG told her it was TANG's impression that she came to [facility] for [facility]ci placement for rehab. She said she is doing better now. TANG asked if she would like home health where therapy can come out and see her at home. She said she did not think so as long as the therapists can give her lists of exercises. TANG told her she would have to ask therapy for the handouts. TANG again asked so you do not want to go anywhere for rehab and she said no she is going home. TANG notified KENYA PECK who will notify Rafy PITTS. Plan: Home with . Cheryl TORRES [employer] SOFTWARE ENGINEER
--- NOTE | 2019-03-06 12:27 | PCM.PROGNOTE ---
<Rafy Todd - Last Filed: 03/06/19 12:27> Patient Problems: Active and Suspected Problems (Last Reviewed 03/04/19 @ 05:44 by Quinn South MD) Generalized weakness (Acute) Hypotension (Acute) Subjective: Pt resting upright in chair NAD. No SOB. On 5lpm O2 which is her baseline (2/2 COPD). No cough. No dizziness/LH. Her appetite has been poor recently, improved this AM. She was very unsteady on her feet with therapy yesterday. She would [place] go [place] - Physical Exam General: Alert, Oriented x3, Cooperative HEENT: Atraumatic, PERRLA, EOMI, Normocephalic Neck: Supple, No JVD, Negative Carotid Bruits Lungs: Clear to auscultation, Diminished Cardiovascular: Regular rate, No murmurs Abdomen: Bowel Sounds Present, Soft, Non Tender Extremities: No edema, Capillary Refill Less than 3 Seconds Skin: No rashes, No breakdown Musculoskeletal: No Tenderness to Palpation of Joints or Extremities Neurological: Cranial nerves II-XII grossly intact Psych/Mental Status: Normal Affect, Appropriate, Alert and oriented to time, place, person, mood and affect Vital Signs Temp Pulse Resp BP Pulse Ox 98.3 F 60 16 101/47 L 94 03/06/19 08:15 03/06/19 11:08 03/06/19 08:15 03/06/19 08:15 03/06/19 08:15 Oxygen Flow Rate (L/min) 5 Oxygen Delivery Method Room Air Weight: 167 lb 12.348 oz Body Mass Index (BMI) 27.1 Intake and Output for Last 24 Hours 03/04/19 03/05/19 03/06/19 23:59 23:59 23:59 Intake Total 1214 / 1214 814 / 814 660 / 660 Output Total / Balance 1214 / 1214 814 / 814 658 / 658 Microbiology Past 72 Hours 03/03/19 20:00 Urine Culture - Final Urine, Clean Catch Culture exhibits no growth. 03/03/19 19:40 Blood Culture - Preliminary Blood Culture (Wb) - Right Forearm No growth in 48 hours. 03/03/19 17:40 Blood Culture - Preliminary Blood Culture (Wb) - Left Forearm No growth in 48 hours. Laboratory Tests Past 24 Hrs 03/06/19 05:24 Sodium 142 Potassium 3.9 Chloride 99 Carbon Dioxide 37.0 H Anion Gap 6 BUN 19 H Creatinine 0.77 Estim Creat Clear Calc 50.41 Est GFR (MDRD) Af Amer 96 Est GFR (MDRD) Non-Af 79 BUN/Creatinine Ratio 24.7 H Glucose 82 Calcium 8.7 Medical Necessity - Tobacco Use Smoking Status: Current every day smoker Tobacco Use: Cigarettes Assessment/Plan All Active Problems (Last Reviewed 03/04/19 @ 05:44 by Quinn South MD) Generalized weakness (Acute) Hypotension (Acute) 1. Generalized debility - continue PTOT. Plan for TCU at [place]. 2. Hypotension 2/2 polypharmacy - resolved. Stable without BP meds. 3. Acute toxic encephalopathy present on admission 2/2 lyrica - resolved. no further lyrica. 4. Low mag - repleted. 5. Chronic hypoxic respiratory failure 2/2 COPD - stable at baseline (5lpm) 6. Nicotine dependence - patch DVT ppx: lovenox DC planning: TCU This patient was seen by Rafy Todd PA-C under the supervision of Doctor Sweta. <Laura Sol - Last Filed: 03/06/19 14:23> - Physical Exam Vital Signs Temp Pulse Resp BP Pulse Ox 99.0 F 53 L 17 92/44 L 94 03/06/19 13:52 03/06/19 13:52 03/06/19 13:52 03/06/19 13:52 03/06/19 13:52 Oxygen Flow Rate (L/min) 5 Oxygen Delivery Method Nasal Cannula Weight: 167 lb 12.348 oz Body Mass Index (BMI) 27.1 Intake and Output for Last 24 Hours 03/04/19 03/05/19 03/06/19 23:59 23:59 23:59 Intake Total 1214 / 1214 814 / 814 660 / 660 Output Total 2 / 2 Balance 1214 / 1214 814 / 814 658 / 658 Microbiology Past 72 Hours 03/03/19 20:00 Urine Culture - Final Urine, Clean Catch Culture exhibits no growth. 03/03/19 19:40 Blood Culture - Preliminary Blood Culture (Wb) - Right Forearm No growth in 48 hours. 03/03/19 17:40 Blood Culture - Preliminary Blood Culture (Wb) - Left Forearm No growth in 48 hours. Laboratory Tests Past 24 Hrs 03/06/19 05:24 Sodium 142 Potassium 3.9 Chloride 99 Carbon Dioxide 37.0 H Anion Gap 6 BUN 19 H Creatinine 0.77 Estim Creat Clear Calc 50.41 Est GFR (MDRD) Af Amer 96 Est GFR (MDRD) Non-Af 79 BUN/Creatinine Ratio 24.7 H Glucose 82 Calcium 8.7 Assessment/Plan Patient seen by Rafy Todd PA-C under my supervision Patient seen and examined. She was admitted with complaint of generalized debility. She is awaiting placement. Patient has no complaints today. She feels well and was eating breakfast at time of review. Review of systems otherwise negative. Labs and vitals reviewed. o/e: Vital Signs Height 5 ft 6 in Weight: 167 lb 12.348 oz Weight in Pounds 167.8 lbs Pulse Ox 94 Temperature 99.0 F Pulse Rate 53 Respiratory Rate 17 Blood Pressure 92/44 Blood Pressure Position Left Lateral General: Alert, Oriented x3, Cooperative HEENT: Atraumatic, PERRLA, EOMI, Normocephalic Neck: Supple, No JVD, Negative Carotid Bruits Lungs: Clear to auscultation, Diminished Cardiovascular: Regular rate, No murmurs Abdomen: Bowel Sounds Present, Soft, Non Tender Extremities: No edema, Capillary Refill Less than 3 Seconds Skin: No rashes, No breakdown Musculoskeletal: No Tenderness to Palpation of Joints or Extremities Neurological: Cranial nerves II-XII grossly intact Psych/Mental Status: Normal Affect, Appropriate, Alert and oriented to time, place, person, mood and affect She remains off lisinopril and hydrochlorothiazide. Patient still has episodes of asymptomatic low blood pressure with blood pressure running in the mid 90s and low 100 systolic. Acute metabolic encephalopathy due to polypharmacy has also resolved and patient is stable. Patient is awaiting placement on account of progressive debility and had been wheelchair-bound. Today she stated that she wanted to go home instead of going to the TCU but could not ambulate very well with rehab. She is therefore awaiting placement. Management as per Rafy Todd PA-C's notes which I reviewed and endorsed Code Visit Inpatient E&M: [id number] Subs Hosp L2
[2019-03-06] MEDS: Acetaminophen 325 MG Tablet 650 MG PO (13:09)
[2019-03-07] VITALS (10 sets, daily range): BP systolic 63–129; BP diastolic 41–64; PULSE 48–70; RESP 12–19; TEMP 36.5–36.8; O2SAT 93–95
[2019-03-07] MEDS: Gemfibrozil 600 MG Tablet PO ×2 (06:34→16:32)
[2019-03-07] MEDS: Menthol/Lanolin/Calamine/Znox 113 GM Tube 1 APPLIC TOPICAL ×2 (06:36→13:42)
[2019-03-07] MEDS: Gabapentin 300 MG Capsule PO (09:06)
[2019-03-07] MEDS: Smz/Tmp Ds Tablet 1 TABLET PO ×2 (09:06→16:32)
[2019-03-07] MEDS: Enoxaparin 40 MG/0.4 ML Syringe SC (09:06)
[2019-03-07] MEDS: morphine SR 15 MG Tablet PO (09:08)
--- NOTE | 2019-03-07 13:15 | PCM.PROGNOTE ---
<Rafy Todd - Last Filed: 03/07/19 13:15> Patient Problems: Active and Suspected Problems (Last Reviewed 03/04/19 @ 05:44 by Quinn South MD) Generalized weakness (Acute) Hypotension (Acute) Subjective: No complaints. Upright in chair at side of bed with NAD. Eating no issues. No SOB. Weaned below baseline O2 (5) to 3lpm and without issues. Plan to continue at lower dose. Pt previously followed with Dr. Newell but has not seen him in years. I advised follow up as an outpatient. - Physical Exam General: Alert, Oriented x3, Cooperative HEENT: Atraumatic, PERRLA, EOMI, Normocephalic Neck: Supple, No JVD, Negative Carotid Bruits Lungs: Clear to auscultation, Normal air movement Cardiovascular: Regular rate, No murmurs Abdomen: Bowel Sounds Present, Soft, Non Tender Extremities: No edema, Capillary Refill Less than 3 Seconds Skin: No rashes, No breakdown Musculoskeletal: No Tenderness to Palpation of Joints or Extremities Neurological: Cranial nerves II-XII grossly intact Psych/Mental Status: Normal Affect, Appropriate, Alert and oriented to time, place, person, mood and affect Vital Signs Temp Pulse Resp BP Pulse Ox 97.7 F L 54 L 16 120/58 L 93 03/07/19 09:13 03/07/19 09:13 03/07/19 09:13 03/07/19 09:13 03/07/19 09:13 Oxygen Flow Rate (L/min) 3 Oxygen Delivery Method Nasal Cannula Weight: 167 lb 12.348 oz Body Mass Index (BMI) 27.1 Intake and Output for Last 24 Hours 03/05/19 03/06/19 03/07/19 23:59 23:59 23:59 Intake Total 814 / 814 1300 / 1300 300 / 300 Output Total 2 / 2 Balance 814 / 814 1298 / 1298 300 / 300 Microbiology Past 72 Hours 03/03/19 20:00 Urine Culture - Final Urine, Clean Catch Culture exhibits no growth. 03/03/19 19:40 Blood Culture - Preliminary Blood Culture (Wb) - Right Forearm No growth in 48 hours. 03/03/19 17:40 Blood Culture - Preliminary Blood Culture (Wb) - Left Forearm No growth in 48 hours. Medical Necessity - Tobacco Use Smoking Status: Current every day smoker Tobacco Use: Cigarettes Assessment/Plan All Active Problems (Last Reviewed 03/04/19 @ 05:44 by Quinn South MD) Generalized weakness (Acute) Hypotension (Acute) 1. Generalized debility - continue PTOT. Ambulates with walker. Plan for TCU at [place]. 2. Hypotension 2/2 polypharmacy - resolved. BP still controlled without BP meds. 3. Acute toxic encephalopathy present on admission 2/2 lyrica - resolved. no further lyrica. 4. Low mag - repleted. 5. Chronic hypoxic respiratory failure 2/2 COPD - weaned below baseline. O/p follow up with Dr. Newell. 6. Nicotine dependence - patch DVT ppx: lovenox DC planning: TCU This patient was seen by Rafy Todd PA-C under the supervision of Doctor Sweta. <Laura Sol - Last Filed: 03/07/19 14:03> - Physical Exam Vital Signs Temp Pulse Resp BP Pulse Ox 97.9 F 66 12 80/41 L 93 03/07/19 13:40 03/07/19 13:40 03/07/19 13:40 03/07/19 13:40 03/07/19 13:40 Oxygen Flow Rate (L/min) 3 Oxygen Delivery Method Nasal Cannula Weight: 167 lb 12.348 oz Body Mass Index (BMI) 27.1 Intake and Output for Last 24 Hours 03/05/19 03/06/19 03/07/19 23:59 23:59 23:59 Intake Total 814 / 814 1300 / 1300 300 / 300 Output Total 2 / 2 Balance 814 / 814 1298 / 1298 300 / 300 Microbiology Past 72 Hours 03/03/19 20:00 Urine Culture - Final Urine, Clean Catch Culture exhibits no growth. 03/03/19 19:40 Blood Culture - Preliminary Blood Culture (Wb) - Right Forearm No growth in 48 hours. 03/03/19 17:40 Blood Culture - Preliminary Blood Culture (Wb) - Left Forearm No growth in 48 hours. Assessment/Plan Patient seen by Rafy Todd PA-C under my supervision Patient seen and examined. She was admitted with complaint of generalized debility. She is awaiting placement. Patient has no complaints today. Review of systems otherwise negative. o/e: Vital Signs Height 5 ft 6 in Weight: 167 lb 12.348 oz Weight in Pounds 167.8 lbs Pulse Ox 93 Temperature 97.9 F Pulse Rate 66 Respiratory Rate 12 Blood Pressure 80/41 Blood Pressure Position Sitting General: Alert, Oriented x3, Cooperative HEENT: Atraumatic, PERRLA, EOMI, Normocephalic Neck: Supple, No JVD, Negative Carotid Bruits Lungs: Clear to auscultation, Diminished Cardiovascular: Regular rate, No murmurs Abdomen: Bowel Sounds Present, Soft, Non Tender Extremities: No edema, Capillary Refill Less than 3 Seconds Skin: No rashes, No breakdown Musculoskeletal: No Tenderness to Palpation of Joints or Extremities Neurological: Cranial nerves II-XII grossly intact Psych/Mental Status: Normal Affect, Appropriate, Alert and oriented to time, place, person, mood and affect She remains off lisinopril and hydrochlorothiazide. Patient still has episodes of asymptomatic low blood pressure with blood pressure running in the mid 90s and low 100 systolic. Patient is awaiting placement on account of progressive debility and had been wheelchair-bound. Awaiting bed in TCU. Will check orthostatics and hydrate as needed Management as per Rafy Todd PA-C's notes which I reviewed and endorsed Code Visit Inpatient E&M: [id number] Subs Hosp L2
--- NOTE | 2019-03-07 13:57 | CASEMGMT ---
TANG spoke with patient and her . SW let them know we are still waiting to see if another patient is approved for TCU. SW explained if this other person's insurance denies her then patient would have a bed and if not she said she would go home. SW asked patient and her how they feel about her going home. They both feel okay with it. Patient is feeling much better. SW asked about home health and they do not want home health. They have a list of exercises to do when she gets home. SW told them we can give it until 430 and if we haven't heard anything we can plan for home. They were in agreement with this plan. Cheryl TORRES MSW
[2019-03-07] MEDS: 0.9% Normal Saline 1,000 ML 999 ML IV (14:41)
[2019-03-07] MEDS: 0.9% NaCl Peripheral Flush Adult/Peds IV (14:41)
--- NOTE | 2019-03-07 15:09 | CASEMGMT ---
A bed is now available for patient to go to TCU. SW notified patient, RN, and CM who notified physician. Plan: d/c to [facility] TCU Cheryl SHIN
--- NOTE | 2019-03-07 15:31 | PCM.EXTCARCO ---
<Rafy Todd - Last Filed: 03/07/19 15:31> - Diet 03/03/19 22:30 Diet: Regular Diet Food consistency:: Regular Liquid Consistency:: Regular/Thin - Routine Orders/Code Status Suppository Type: Dulcolax 10mg Suppository Frequency: Daily PRN Routine Lab Work: CBC - 5 days, BMP - 5 days Code Status: DNRCC-A - Wound(s) Coccyx Wound Type: Pressure Injury L forearm Wound Type: Skin Tear - Therapies Physical Therapy: Eval and Treat Occupational Therapy: Eval and Treat - Problem/Diagnosis (1) Hypotension Status: Acute Current Visit: Yes (2) Polypharmacy Status: Acute Current Visit: Yes (3) Toxic encephalopathy Status: Acute Current Visit: Yes (4) Chronic respiratory failure with hypoxia Status: Chronic Current Visit: Yes (5) COPD (chronic obstructive pulmonary disease) Status: Chronic Current Visit: Yes (6) Nicotine abuse Status: Chronic Current Visit: Yes (7) Generalized weakness Status: Chronic Current Visit: Yes - Allergies/Procedures Done in Hospital Allergies/Adverse Reactions: Allergies No Known Allergies Allergy (Verified 09/09/16 14:43) Procedures: None - Type of Care/Length of Stay Estimated LOS: Convalescent Care Less Than 30 days Type of Care Needed: Skilled Rehab Potential: Fair Prognosis: Fair - Additional Orders/Day of Discharge Day of Discharge: 03/07/19 - Follow Up Care Primary Care Physician: Matthew Valdivia DO [Primary Care Provider] - Please follow up with your Primary Care Physician in: 2 weeks <Laura Sol - Last Filed: 03/07/19 16:49> - Diet 03/03/19 22:30 Diet: Regular Diet Food consistency:: Regular Liquid Consistency:: Regular/Thin
--- NOTE | 2019-03-07 16:25 | PCM.DC.SUM ---
<Rafy Todd - Last Filed: 03/07/19 16:25> Discharge Date and Diagnosis - Problem List Patient Problems: Active and Suspected Problems (Last Reviewed 03/04/19 @ 05:44 by Quinn South MD) Hypotension (Acute) Polypharmacy (Acute) Toxic encephalopathy (Acute) Date of Admission: 03/03/19 Date of Discharge: 03/07/19 - Primary Discharge Diagnosis Active and Suspected Problems (Last Reviewed 03/04/19 @ 05:44 by Quinn South MD) Hypotension 2/2 Polypharmacy Toxic encephalopathy 2/2 polypharmacy Orthostatic hypotension Hx HTN Chronic hypoxic respiratory failure 2/2 COPD Generalized Debility Nicotine abuse - Secondary Discharge Diagnosis Chronic Problems (Last Reviewed 03/04/19 @ 05:44 by Quinn South MD) Generalized weakness (Chronic) Chronic respiratory failure with hypoxia (Chronic) COPD (chronic obstructive pulmonary disease) (Chronic) Nicotine abuse (Chronic) Hospital Course and Treatment Imaging Results: RAD/Chest 1 View (Portable) IMPRESSION: Right basilar atelectasis The remainder the chest is similar Consultations 03/03/19 23:43 Consult: Onc/Wound/director health Routine Comment: Reason for Consult:: healing ulcer on coccyx Operations: None Procedures: None Summary of Care Provided: Hospital Course: The patient is a 68 year old F with pmhx of chronic back pain for which she was on MS contin, lyrica, gabapentin, and with HTN for which she was taking lisinopril and HCTZ, who presented to the ER with weakness, hypotension and encephalopathy. These were felt to be 2/2 polypharmacy. She was admitted to the PCU and her BP meds were discontinued, her morphine and gabapentin were significantly reduced, and her lyrica was discontinued. She had improvement in her blood pressure, mentation, and weakness. She continued to remain unsteady with ambulation and nursing home was recommended. Her BP remained well controlled off of her prior BP meds. She also had significant orthostatic hypotension on the day of discharge, which resolved after 1 liter bolus of IV fluids. She was placed on low dose midodrine to try for 2 weeks given her orthostasis, and will need to be monitored for HTN. She will continue her modified pain regimen at the lower dose of morphine and gabapentin and she should remain off lyrica. She chronically was wearing 5lpm o2 at home for her COPD and chronic hypoxic respiratory failure, however here she remained stable on 3lpm and she had no respiratory complaints. She was discharged to nursing home in stable condition and will need follow up with her PCP in 2 weeks. This patient was seen by Rafy Todd PA-C under the supervision of Dr. Sol. [] Patient Problems: Active and Suspected Problems (Last Reviewed 03/04/19 @ 05:44 by Quinn South MD) Hypotension (Acute) Polypharmacy (Acute) Toxic encephalopathy (Acute) - Physical Exam General: Alert, Oriented x3, Cooperative HEENT: Atraumatic, PERRLA, EOMI, Normocephalic Neck: Supple, No JVD, Negative Carotid Bruits Lungs: Clear to auscultation, Normal air movement Cardiovascular: Regular rate, No murmurs Abdomen: Bowel Sounds Present, Soft, Non Tender Extremities: No edema, Capillary Refill Less than 3 Seconds Skin: No rashes, No breakdown Musculoskeletal: No Tenderness to Palpation of Joints or Extremities Neurological: Cranial nerves II-XII grossly intact Psych/Mental Status: Normal Affect, Appropriate, Alert and oriented to time, place, person, mood and affect Vital Signs Temp Pulse Resp BP Pulse Ox 98.0 F 63 16 118/64 94 03/07/19 16:01 03/07/19 16:01 03/07/19 16:01 03/07/19 16:01 03/07/19 16:01 Oxygen Flow Rate (L/min) 3 Oxygen Delivery Method Nasal Cannula Weight: 167 lb 12.348 oz Body Mass Index (BMI) 27.1 Orthostatic Vital Signs Start: 03/07/19 14:37 Freq: q24h Status: Active Protocol: Activity Type Activity Date Activity User E-Sign Co-Sign Detail Recorded Client Recorded Date Recorded By Document 03/07/19 15:58 MLB [id number] 03/07/19 16:01 MLB 03/07/19 15:58 Orthostatic Vitals Standing -Blood Pressure (90/60-120/80) 106/57 L -Extremity Use Left Arm -Pulse Rate (60-100) 63 Sitting -Blood Pressure (90/60-120/80) 101/58 L -Extremity Use Left Arm -Pulse Rate (60-100) 56 L Lying -Blood Pressure (90/60-120/80) 118/64 -Extremity Use Left Arm -Pulse Rate (60-100) 54 L Intake and Output for Last 24 Hours 03/05/19 03/06/19 03/07/19 23:59 23:59 23:59 Intake Total 814 / 814 1300 / 1300 1300 / 1300 Output Total / Balance 814 / 814 1298 / 1298 1300 / 1300 Microbiology Past 72 Hours 03/03/19 20:00 Urine Culture - Final Urine, Clean Catch Culture exhibits no growth. 03/03/19 19:40 Blood Culture - Preliminary Blood Culture (Wb) - Right Forearm No growth in 48 hours. 03/03/19 17:40 Blood Culture - Preliminary Blood Culture (Wb) - Left Forearm No growth in 48 hours. Laboratory Tests Past 24 Hrs 03/07/19 14:45 Cortisol 18.00 Discharge Diet: Low fat/ Low Cholesterol, 2000 mg Sodium Diet Discharge Activity: Return to Normal Activity Home Medications: Medications to take at Discharge Gemfibrozil 600 mg PO BID 03/03/19 Smz/Tmp Ds [Bactrim Ds] 1 tab PO BID 03/03/19 Acetaminophen [Tylenol Tablet] 650 mg PO Q6H PRN PRN tab 03/07/19 Ensure Enlive 120 ml PO 4X/DAY liquid 03/07/19 Gabapentin [Neurontin] 100 mg PO BIDCM cap 03/07/19 Menthol/Lanolin/Calamine/Znox [Calmoseptine Ointment] 1 applic TOPICAL TID tube 03/07/19 Midodrine HCl 2.5 mg PO TID #42 tab 03/07/19 Nicotine [Nicoderm Cq] 21 mg TRANSDERM. DAILY patch 03/07/19 morphine SR tablet [Ms Contin] 15 mg PO BID 3 Days #6 tab 03/07/19 Following Prescrptions Were Given to Patient: Midodrine HCl 2.5 mg PO TID #42 tab morphine SR tablet [Ms Contin] 15 mg PO BID 3 Days #6 tab Prescription Printed Primary Care Physician: Matthew Valdivia DO [Primary Care Provider] - Please follow up with your Primary Care Physician in: 2 weeks Disposition: Long-Term facility Minutes spent on discharge:: 35 Patient Condition:: Stable Medical Necessity - Tobacco Use Smoking Status: Current every day smoker Tobacco Use: Cigarettes Meaningful Use Info Meaningful Use Diagnoses (Choose all that apply): None applicable <Laura Sol - Last Filed: 03/07/19 16:48> Discharge Date and Diagnosis - Primary Discharge Diagnosis Active and Suspected Problems (Last Reviewed 03/04/19 @ 05:44 by Quinn South MD) Hypotension (Acute) Polypharmacy (Acute) Toxic encephalopathy (Acute) - Secondary Discharge Diagnosis Chronic Problems (Last Reviewed 03/04/19 @ 05:44 by Quinn South MD) Generalized weakness (Chronic) Chronic respiratory failure with hypoxia (Chronic) COPD (chronic obstructive pulmonary disease) (Chronic) Nicotine abuse (Chronic) Hospital Course and Treatment Consultations 03/03/19 23:43 Consult: Onc/Wound/director health Routine Comment: Reason for Consult:: healing ulcer on coccyx Summary of Care Provided: Patient seen by Rafy Todd PA-C under my supervision The patient is a 68 year old F admitted through the ED with a complaint of weakness, and altered mental status. She was managed for debility, hypotension and acute metabolic encephalopathy which was thought to be due to polypharmacy. Hypotension was thought to be due to medication and blood pressure medications were discontinued and morphine and gabapentin doses were significantly reduced and Lyrica discontinued. Blood pressure did improve and mentation improved with resolution of acute metabolic encephalopathy. However patient remained persistently orthostatic hypotensive especially on the day of discharge with blood pressure going as low as the 80s systolic and even 60s systolic. This improved with initiation of IV fluids. Due to patient's significant orthostatic hypotension, she was started on low-dose Midodrin for 2 weeks to help improve her orthostasis. Patient was on oxygen 5 L at home on account of COPD but had not been following up with pulmonology. She is follow-up with pulmonology upon discharge. She remained stable and was discharged to a [facility] on 03/07/2019 with a prescription for midodrine. She is follow-up with her primary care doctor and pulmonology. Patient seen and examined prior to discharge. She felt well and had no complaints and was insistent about being discharged. Review of systems otherwise negative. Labs and vitals reviewed. Home medication reviewed and reconciled. o/e: Vital Signs Height 5 ft 6 in Weight: 167 lb 12.348 oz Weight in Pounds 167.8 lbs Pulse Ox 94 Temperature 98.0 F Pulse Rate [Standing] 63 Pulse Rate [Sitting] 56 Pulse Rate [Lying] 54 Pulse Rate 63 Respiratory Rate 16 Blood Pressure [Standing] 106/57 Blood Pressure [Sitting] 101/58 Blood Pressure [Lying] 118/64 Blood Pressure 118/64 Blood Pressure Position Supine [] General: Alert, Oriented x3, Cooperative HEENT: Atraumatic, PERRLA, EOMI, Normocephalic Neck: Supple, No JVD, Negative Carotid Bruits Lungs: Clear to auscultation, Diminished Cardiovascular: Regular rate, No murmurs Abdomen: Bowel Sounds Present, Soft, Non Tender Extremities: No edema, Capillary Refill Less than 3 Seconds Skin: No rashes, No breakdown Musculoskeletal: No Tenderness to Palpation of Joints or Extremities Neurological: Cranial nerves II-XII grossly intact Psych/Mental Status: Normal Affect, Appropriate, Alert and oriented to time, place, person, mood and affect Rest of management as per Rafy Todd PA-C's note, which I have reviewed and endorsed. - Physical Exam Vital Signs Temp Pulse Resp BP Pulse Ox 98.0 F 63 16 118/64 94 03/07/19 16:01 03/07/19 16:01 03/07/19 16:01 03/07/19 16:01 03/07/19 16:01 Oxygen Flow Rate (L/min) 3 Oxygen Delivery Method Nasal Cannula Weight: 167 lb 12.348 oz Body Mass Index (BMI) 27.1 Orthostatic Vital Signs Start: 03/07/19 14:37 Freq: q24h Status: Active Protocol: Activity Type Activity Date Activity User E-Sign Co-Sign Detail Recorded Client Recorded Date Recorded By Document 03/07/19 15:58 MLB [id number] 03/07/19 16:01 MLB 03/07/19 15:58 Orthostatic Vitals Standing -Blood Pressure (90/60-120/80) 106/57 L -Extremity Use Left Arm -Pulse Rate (60-100) 63 Sitting -Blood Pressure (90/60-120/80) 101/58 L -Extremity Use Left Arm -Pulse Rate (60-100) 56 L Lying -Blood Pressure (90/60-120/80) 118/64 -Extremity Use Left Arm -Pulse Rate (60-100) 54 L Intake and Output for Last 24 Hours 03/05/19 03/06/19 03/07/19 23:59 23:59 23:59 Intake Total 814 / 814 1300 / 1300 1300 / 1300 Output Total / Balance 814 / 814 1298 / 1298 1300 / 1300 Microbiology Past 72 Hours 03/03/19 20:00 Urine Culture - Final Urine, Clean Catch Culture exhibits no growth. 03/03/19 19:40 Blood Culture - Preliminary Blood Culture (Wb) - Right Forearm No growth in 48 hours. 03/03/19 17:40 Blood Culture - Preliminary Blood Culture (Wb) - Left Forearm No growth in 48 hours. Laboratory Tests Past 24 Hrs 03/07/19 14:45 Cortisol 18.00 Code Visit Inpatient E&M: [id number] Disch Hosp
[2019-03-07] MEDS: Gabapentin 100 MG Capsule PO (16:32)
--- NOTE | 2019-03-07 16:44 | NURSING ---
report called to Petrona ZAMBRANO in TCU
--- NOTE | 2019-03-07 16:47 | NURSING ---
David notified patient going to TCU room 8.
== END 2019-03-07 16:57 | disposition skilled nursing facility (03) | DRG 312 ==
LOC: ED 17:02 → PCU 22:18
PROVIDERS: Internal Medicine; Admitting Provider Hospitalist; Emergency Provider Emergency Medicine; Family Provider Family Medicine; PCP Family Medicine; Referring Provider Hospitalist; Visit Provider Student in an Organized Health Care Education/Training Program
DX: I95.2 Hypotension due to drugs (principal); G92 Toxic encephalopathy; J96.11 Chronic respiratory failure with hypoxia; R53.1 Weakness; J44.9 Chronic obstructive pulmonary disease, unspecified; E78.5 Hyperlipidemia, unspecified; F17.210 Nicotine dependence, cigarettes, uncomplicated; Z99.3 Dependence on wheelchair; Z99.81 Dependence on supplemental oxygen; E83.42 Hypomagnesemia; T42.6X5A Adverse effect of other antiepileptic and sedative-hypnotic drugs, initial encounter; R53.81 Other malaise; T46.4X5A Adverse effect of angiotensin-converting-enzyme inhibitors, initial encounter; T50.2X5A Adverse effect of carbonic-anhydrase inhibitors, benzothiadiazides and other diuretics, initial encounter; M54.9 Dorsalgia, unspecified; G89.29 Other chronic pain; I95.1 Orthostatic hypotension
CPT/HCPCS: 36415; 71045; 80048; 80053; 81001; 82533; 83605; 83735; 84443; 84484; 85025; 85610; 85730; 87040; 87086; 93005; 97110; 97116; 97162; 97166; 97530; 97802; 99285; 99406; J7030; P9612; A4216; J2405

== ENCOUNTER 2019-03-07 17:26 | Inpatient (IN) | payer MEDICARE, OTHER, SELFPAY ==
[2019-03-03 22:50] VITALS: BMI 27.1
[2019-03-07 17:35] VITALS: BP 138/56; PULSE 55; RESP 16; RESP 18; TEMP 37.7; O2SAT 91; O2SAT 96
[2019-03-07 18:01] VITALS: BMI 26.2
[2019-03-07 18:03] VITALS: BMI 26.2
[2019-03-07] MEDS: morphine SR 15 MG Tablet PO (20:17)
[2019-03-07] MEDS: Midodrine HCl 5 MG Tablet 2.5 MG PO (20:19)
[2019-03-07] MEDS: Menthol/Lanolin/Calamine/Znox 113 GM Tube 1 APPLIC TOPICAL (20:21)
--- NOTE | 2019-03-07 20:23 | HP.PCM_ITS ---
Problem List (1) Debility Status: Acute (2) Chronic back pain Status: Chronic (3) Orthostatic hypotension Status: Acute (4) Hyperlipidemia Status: Chronic (5) Neuropathic pain Status: Chronic (6) Opioid dependence Status: Chronic (7) Recurrent UTI Status: Chronic (8) Tobacco abuse Status: Chronic (9) Generalized weakness Status: Acute (10) Polypharmacy Status: Acute (11) Toxic encephalopathy Status: Acute (12) Chronic respiratory failure with hypoxia Status: Chronic (13) COPD (chronic obstructive pulmonary disease) Status: Chronic History of Present Illness Date of Admission: 03/07/19 Chief Complaint: Here for rehabilitation, strengthening, prior to discharge home with . The patient is a 68 year old Female with below past medical history presented to [facility] Emergency Department 03/03/2019 with weakness. 03/03/2019 Chest X-ray right basilar atelectasis. Generalized weakness, worse x 2 days, can barely stand. EKG sinus rhythm, rate 58. Platelet 145, BMP okay, Coags okay, UA okay, Troponin okay, Lactate okay. TSH okay. Blood pressure low, but patient states her blood pressure is chronically low. 03/03/2019 Admit to Hospital. PT/OT. Hold Lyrica, decrease Morphine, decrease Gabapentin. Hold Lisinopril HCT. Confusion due to polypharmacy. Blood pressure, cognition, weakness improved with medication adjustments. Orthostatic hypotension resolved with 1 liter IV fluid bolus. Low dose Midodrine x 2 weeks for orthostasis. Chronic 5 liters Oxygen at home for COPD, patient did well with 3 liters Oxygen in hospital. 03/07/2019 Admit to TCU with debility, here for rehabilitation, strengthening, prior to discharge home with . Past Medical History Past Medical History (Chronic Problems): Chronic Problems (Last Reviewed 03/04/19 @ 05:44 by Quinn South MD) Chronic respiratory failure with hypoxia (Chronic) COPD (chronic obstructive pulmonary disease) (Chronic) Nicotine abuse (Chronic) Chronic back pain (Chronic) Hyperlipidemia (Chronic) Neuropathic pain (Chronic) Opioid dependence (Chronic) Recurrent UTI (Chronic) Tobacco abuse (Chronic) Medical History: Medical History (Last Reviewed 03/04/19 @ 05:44 by Quinn South MD) HTN (hypertension) I10 Allergies No Known Allergies Allergy (Verified 09/09/16 14:43) Home Medications: Ambulatory Orders Medication Instructions Recorded Gemfibrozil 600 mg PO BID 03/03/19 Smz/Tmp Ds [Bactrim Ds] 1 tab PO BID 03/03/19 Acetaminophen [Tylenol Tablet] 650 mg PO Q6H PRN PRN tab 03/07/19 Ensure Enlive 120 ml PO 4X/DAY 03/07/19 Gabapentin [Neurontin] 100 mg PO BIDCM 03/07/19 Menthol/Lanolin/Calamine/Znox 1 applic TOPICAL TID 03/07/19 [Calmoseptine Ointment] Midodrine HCl 2.5 mg PO TID 03/07/19 Nicotine [Nicoderm Cq] 21 mg TRANSDERM. DAILY 03/07/19 morphine SR tablet [Ms Contin] 15 mg PO BID 03/07/19 Surgical History: - - Rods at the back. 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 Denies: Chills, Fever, Weight Change HEENT: Denies: Head Aches, Sinus Congestion, Sinus Drainage Cardiovascular: Denies: Chest Pain, Palpitations Respiratory: Denies: Cough, Shortness of breath at rest, Sputum production Gastrointestinal: Denies: Abdominal Pain, Nausea, Vomiting Genitourinary: Denies: Dysuria Musculoskeletal: Denies: Joint Pain, Joint Tenderness Skin: Denies: Rash, Wounds Neurological: Denies: Numbness, Tingling, Focal weakness Psychiatric: Denies: Anxiety, Depression, Homicidal Ideations, Suicidal Ideations Hematologic/ Lymphatic: Denies: Easy Bruising, Easy Bleeding VTE Information - Inpt Only VTE Present on Admission: No VTE Mechan Device Prophylaxis: Knee High JERMAINE Hose VTE Pharm Prophylaxis ordered?: Yes Patient Problems: Active and Suspected Problems (Last Reviewed 03/04/19 @ 05:44 by Quinn South MD) Debility (Acute) Orthostatic hypotension (Acute) - Physical Exam General: Alert, Oriented x3, Cooperative HEENT: Atraumatic, PERRLA, EOMI, Normocephalic Neck: Supple, No JVD, Negative Carotid Bruits Lungs: Clear to auscultation, Normal air movement Cardiovascular: Regular rate, No murmurs Abdomen: Bowel Sounds Present, Soft, Non Tender Extremities: No edema, Capillary Refill Less than 3 Seconds Skin: No rashes, No breakdown Musculoskeletal: No Tenderness to Palpation of Joints or Extremities Neurological: Cranial nerves II-XII grossly intact Psych/Mental Status: Normal Affect, Appropriate Vital Signs Temp Pulse Resp BP Pulse Ox 99.9 F H 55 L 18 138/56 H 91 03/07/19 17:35 03/07/19 17:35 03/07/19 17:35 03/07/19 17:35 03/07/19 17:35 Oxygen Flow Rate (L/min) 3 Oxygen Delivery Method Nasal Cannula Weight: 73.624 kg Body Mass Index (BMI) 26.2 Intake and Output for Last 24 Hours 03/05/19 03/06/19 03/07/19 23:59 23:59 23:59 Intake Total 120 / 120 Balance 120 / 120 Assessment/Plan All Active Problems (Last Reviewed 03/04/19 @ 05:44 by Quinn South MD) Generalized weakness (Acute) Hypotension (Acute) Polypharmacy (Acute) Toxic encephalopathy (Acute) Debility (Acute) Orthostatic hypotension (Acute) 68 year old female with below past medical history hospitalized for weakness, encephalopathy, hypotension secondary to polypharmacy, admitted to TCU with debility, here for rehabilitation, strengthening, prior to discharge home with . * Debility - PT/OT. * Pain - MS Contin 15MG BID, Tylenol 1000MG Q6H PRN pain (1-10) * Bowel - Miralax 17GM daily, Senna/colace 2 tablets BID, Dulcolax 10MG MI daily PRN. * Pneumonia vaccination - Administer Prevnar 13 and/or Pneumovax 23 as necessary. * DVT prophylaxis - Lovenox 40MG SC daily. * Nutrition - Ensure Enlive 120ML 4x/day. * Neuropathic pain - Gabapentin 100MG BID. * Hyperlipidemia - Lopid 600MG BIDAC. * Skin irritation - Calmoseptine TID. * Orthostatic hypotension - Midodrine 2.5MG TID. * Tobacco Abuse - Nicotine patch 21MG 1 patch TD daily. * Recurrent UTI - Bactrim DS 1 tablet BID.
--- NOTE | 2019-03-07 23:28 | NURSING ---
Resident has a nicoderm patch to right upper arm dated 03/07/19.
[2019-03-08 06:08] LABS: Absolute Lymphocyte Count 1.03 X10^3/uL (0.83-4.51); Absolute Neutrophil Count 1.9 X10^3/uL (2.0-7.7); Basophil# 0.02 X10^3/uL; Basophil% 0.6 % (0-1); Eosinophil# 0.02 X10^3/uL; Eosinophils% 0.6 % (0-5); Hematocrit 40.2 % (37-47); Hemoglobin 12.6 g/dL (12.0-15.0); Lymphocyte # 1.03 X10^3/ul (4.0); Mean Corp Hgb Conc 31.3 g/dL (32-36); Mean Corpuscular Hgb 31.4 pg (27.0-32.0); Mean Corpuscular Volume 100.2 fL (81-99); Mean Platelet Vol. 10.6 fl (6.2-12.0); Monocyte# 0.43 X10^3/uL; Monocyte% 12.5 % (0-10); NRBC Flagged by Analyzer 0 % (0-5); Neutrophil # 1.92 X10^3/uL (2.7-7.7); Platelet Count 121 K/mm3 (150-450); RBC Distribution Width CV 13.2 % (11.6-14.6); RBC Distribution Width SD 48.6 fl (35.1-43.9); Red Blood Count 4.01 M/mm3 (4.2-5.4); White Blood Count 3.4 K/mm3 (4.4-11.0)
[2019-03-08] MEDS: Midodrine HCl 5 MG Tablet 2.5 MG PO ×3 (06:17→20:15)
[2019-03-08 06:18] LABS: Anion Gap 4 (5-15); BUN 21 mg/dL (7-18); Calcium,Total 8.8 mg/dL (8.5-10.1); Chloride 103 mmol/L (98-107); Creatinine, Serum 0.75 mg/dL (0.55-1.02); EST Glomerular Filtration Rate 82 mL/min (>60); Est Glom Filt Rate - Afr Amer 99 mL/min (>60); Estimated Creatinine Clearance 50.41 ml/min; Glucose 84 mg/dL (74-106); Potassium 4.2 mmol/L (3.5-5.1); Sodium Level 143 mmol/L (136-145)
[2019-03-08] MEDS: Enoxaparin 40 MG/0.4 ML Syringe SC (06:19)
[2019-03-08] MEDS: Senna/Docusate Sodium 1 Tablet 2 TABLET PO ×2 (06:19→18:03)
[2019-03-08] MEDS: Polyethylene Glycol 3350 17 GM PACKET PO (06:19)
[2019-03-08] MEDS: morphine SR 15 MG Tablet PO ×2 (06:26→17:54)
[2019-03-08] MEDS: Menthol/Lanolin/Calamine/Znox 113 GM Tube 1 APPLIC TOPICAL ×3 (06:33→20:16)
--- NOTE | 2019-03-08 07:08 | PCA ---
went in to check patient blood sugar and he refused for me to check it
[2019-03-08] MEDS: Gemfibrozil 600 MG Tablet PO ×2 (08:41→17:55)
[2019-03-08] MEDS: Gabapentin 100 MG Capsule PO ×2 (08:41→17:55)
[2019-03-08] MEDS: Smz/Tmp Ds Tablet 1 TABLET PO ×2 (08:41→17:56)
--- NOTE | 2019-03-08 09:56 | NURSING ---
PT REFUSED TEDHOSE AT THIS TIME. THIS NURSE EXPLAINED TO PT WHY THEY ARE WORN,PT STILL REFUSED.
[2019-03-08] MEDS: Magnesium Citrate 300 ML PO (09:58)
[2019-03-08] MEDS: Tuberculin,Purif.prot.deriv. 50 TU/ML Vial 5 ML ID (09:59)
--- NOTE | 2019-03-08 10:27 | PCM.PN.RX ---
<Mansi Salgado - Last Filed: 03/08/19 10:27> Progress Note - Pharmacy Subjective: TCU Admission Objective: Allergies No Known Allergies Allergy (Verified 09/09/16 14:43) Current Medications Generic Name Dose Route Start Last Admin Trade Name Freq PRN Reason Stop Dose Admin Acetaminophen 1,000 mg 03/07/19 20:38 Tylenol PO Q6H PRN PRN Pain Score 1-10 Bisacodyl 10 mg 03/07/19 17:41 Dulcolax RECTAL DAILY PRN Constipation Calamine/Phenol 1 applic 03/07/19 22:00 03/08/19 06:33 Calmoseptine Ointment TOPICAL 1 applicatio TID LIDA Administration Protocol Enoxaparin Sodium 40 mg 03/08/19 06:00 03/08/19 06:19 Lovenox SC 40 mg DAILY@0600 LIDA Administration Gabapentin 100 mg 03/08/19 08:00 03/08/19 08:41 Neurontin PO 100 mg BIDCM LIDA Administration Gemfibrozil 600 mg 03/08/19 07:30 03/08/19 08:41 Lopid PO 600 mg BIDAC LIDA Administration Midodrine 2.5 mg 03/07/19 22:00 03/08/19 06:17 Proamatine PO 2.5 mg TID LIDA Administration Morphine Sulfate 15 mg 03/07/19 18:00 03/08/19 06:26 Ms Contin PO 15 mg BID LIDA Administration Multi-Ingredient Cream 1 applic 03/08/19 06:00 03/08/19 06:25 Eucerin TOPICAL 1 applicatio 0600,2200 LIDA Administration Protocol Nicotine 21 mg 03/08/19 06:00 03/08/19 06:33 Nicoderm Cq (Pbkc) TRANSDERM. 21 mg DAILY LIDA Administration Nutritional Formula (Lactose Free) 120 ml 03/07/19 22:00 03/08/19 06:18 Ensure Enlive PO 120 ml 4X/DAY LIDA Administration Polyethylene Glycol 17 gm 03/08/19 06:00 03/08/19 06:19 Miralax PO 17 gm DAILY LIDA Administration Senna/Docusate Sodium 2 tablet 03/08/19 06:00 03/08/19 06:19 Senokot-S, Dianna-Colace PO 2 tablet BID LIDA Administration Trimethoprim/Sulfamethoxazole 1 tablet 03/08/19 08:00 03/08/19 08:41 Bactrim Ds PO 1 tablet BIDCM LIDA Administration Tuberculin PPD 5 tu 03/15/19 10:00 Tubersol, Aplisol, Ppd ID 03/15/19 10:01 X1 ONE Problem List (Last Reviewed 03/04/19 @ 05:44 by Quinn South MD) Debility (Acute) Chronic back pain (Chronic) Orthostatic hypotension (Acute) Hyperlipidemia (Chronic) Neuropathic pain (Chronic) Opioid dependence (Chronic) Recurrent UTI (Chronic) Tobacco abuse (Chronic) Vital Signs Temp Pulse Resp BP Pulse Ox 99.9 F H 55 L 16 138/56 H 96 03/07/19 17:35 03/07/19 17:35 03/07/19 17:35 03/07/19 17:35 03/07/19 17:35 Oxygen Flow Rate (L/min) 3 Oxygen Delivery Method Nasal Cannula Weight: 73.624 kg Body Mass Index (BMI) 26.2 Sodium 143 mmol/L (136-145) 03/08/19 05:10 Potassium 4.2 mmol/L (3.5-5.1) 03/08/19 05:10 Chloride 103 mmol/L (98-107) 03/08/19 05:10 Carbon Dioxide 36.0 mmol/L (21.0-32.0) H 03/08/19 05:10 Anion Gap 4 (5-15) L 03/08/19 05:10 BUN 21 mg/dL (7-18) H 03/08/19 05:10 Creatinine 0.75 mg/dL (0.55-1.02) 03/08/19 05:10 Est GFR (MDRD) Af Amer 99 mL/min (>60) 03/08/19 05:10 Est GFR (MDRD) Non-Af 82 mL/min (>60) 03/08/19 05:10 BUN/Creatinine Ratio 28.0 RATIO (10-20) H 03/08/19 05:10 Glucose 84 mg/dL (74-106) 03/08/19 05:10 Assessment/Plan: 1. Pain: morphine SR 15mg PO BID and acetaminophen 1000mg PO Q6H PRN pain (-03/09). Please continue to monitor for S/S respiratory depression, constipation, and increased pain. 2. Recurrent UTI: sulfamethoxazole/trimethoprim DS 1T PO BIDCM. Please continue to monitor for S/S of infection and renal function. 3. Orthostatic hypotension: midodrine 2.5mg PO TID. Please continue to monitor for S/S of hypotension. *4. Tobacco abuse: nicotine patch 21mg 1 patch TD daily. Please consider adding nicotine 4mg gum Q2H PRN nicotine cravings if cravings not satisfied with nicotine patch. Please continue to monitor for nicotine cravings. 5. Neuropathic pain: gabapentin 100mg PO BIDCM. Please continue to monitor renal function and confusion. *6. Hyperlipidemia: gemfibrozil 600mg PO BIDAC. Please consider ordering a lipid panel now and then annually as clinically appropriate. 7. DVT prophylaxis: enoxaparin 40mg SC daily. Please continue to monitor for S/S bleeding, renal function, platelets and S/S of DVT. Psychotropic Medications: None Unnecessary Medications: None Bowel Regimen: Miralax 17gm PO daily, senna/docusate 2T PO BID, bisacodyl 10mg [place] daily PRN constipation. Please continue to monitor for constipation and PRN usage. Date of Note:: 03/08/19 - Provider Comments Provider responsibility: Provider responsible to enter orders to implement recommendations <Alan Leon Chi - Last Filed: 03/08/19 16:51> Progress Note - Pharmacy Subjective: [] Objective: Allergies No Known Allergies Allergy (Verified 09/09/16 14:43) Current Medications Generic Name Dose Route Start Last Admin Trade Name Freq PRN Reason Stop Dose Admin Acetaminophen 1,000 mg 03/07/19 20:38 Tylenol PO Q6H PRN PRN Pain Score 1-03/09 Bisacodyl 10 mg 03/07/19 17:41 Dulcolax RECTAL DAILY PRN Constipation Calamine/Phenol 1 applic 03/07/19 22:00 03/08/19 13:29 Calmoseptine Ointment TOPICAL 1 applicatio TID [facility] Administration Protocol Enoxaparin Sodium 40 mg 03/08/19 06:00 03/08/19 06:19 Lovenox SC 40 mg DAILY@0600 [facility] Administration Gabapentin 100 mg 03/08/19 08:00 03/08/19 08:41 Neurontin PO 100 mg BIDCM [facility] Administration Gemfibrozil 600 mg 03/08/19 07:30 03/08/19 08:41 Lopid PO 600 mg BIDAC LIDA Administration Midodrine 2.5 mg 03/07/19 22:00 03/08/19 13:27 Proamatine PO 2.5 mg TID LIDA Administration Morphine Sulfate 15 mg 03/07/19 18:00 03/08/19 06:26 Ms Contin PO 15 mg BID LIDA Administration Multi-Ingredient Cream 1 applic 03/08/19 06:00 03/08/19 06:25 Eucerin TOPICAL 1 applicatio 0600,2200 LIDA Administration Protocol Nicotine 21 mg 03/08/19 06:00 03/08/19 06:33 Nicoderm Cq (Pbkc) TRANSDERM. 21 mg DAILY LIDA Administration Nutritional Formula (Lactose Free) 120 ml 03/07/19 22:00 03/08/19 11:21 Ensure Enlive PO Not Given 4X/DAY LIDA Polyethylene Glycol 17 gm 03/08/19 06:00 03/08/19 06:19 Miralax PO 17 gm DAILY LIDA Administration Senna/Docusate Sodium 2 tablet 03/08/19 06:00 03/08/19 06:19 Senokot-S, Dianna-Colace PO 2 tablet BID LIDA Administration Trimethoprim/Sulfamethoxazole 1 tablet 03/08/19 08:00 03/08/19 08:41 Bactrim Ds PO 1 tablet BIDCM LIDA Administration Tuberculin PPD 5 tu 03/15/19 10:00 Tubersol, Aplisol, Ppd ID 03/15/19 10:01 X1 ONE Problem List (Last Reviewed 03/04/19 @ 05:44 by Quinn South MD) Debility (Acute) Chronic back pain (Chronic) Orthostatic hypotension (Acute) Hyperlipidemia (Chronic) Neuropathic pain (Chronic) Opioid dependence (Chronic) Recurrent UTI (Chronic) Tobacco abuse (Chronic) Vital Signs Temp Pulse Resp BP Pulse Ox 98.8 F 96 18 118/46 L 100 03/08/19 16:00 03/08/19 16:00 03/08/19 16:00 03/08/19 16:00 03/08/19 16:00 Oxygen Flow Rate (L/min) 3 Oxygen Delivery Method Room Air Weight: 73.624 kg Body Mass Index (BMI) 26.2 Sodium 143 mmol/L (136-145) 03/08/19 05:10 Potassium 4.2 mmol/L (3.5-5.1) 03/08/19 05:10 Chloride 103 mmol/L (98-107) 03/08/19 05:10 Carbon Dioxide 36.0 mmol/L (21.0-32.0) H 03/08/19 05:10 Anion Gap 4 (5-15) L 03/08/19 05:10 BUN 21 mg/dL (7-18) H 03/08/19 05:10 Creatinine 0.75 mg/dL (0.55-1.02) 03/08/19 05:10 Est GFR (MDRD) Af Amer 99 mL/min (>60) 03/08/19 05:10 Est GFR (MDRD) Non-Af 82 mL/min (>60) 03/08/19 05:10 BUN/Creatinine Ratio 28.0 RATIO (10-20) H 03/08/19 05:10 Glucose 84 mg/dL (74-106) 03/08/19 05:10 Assessment/Plan: Psychotropic Medications: Unnecessary Medications: Bowel Regimen: - Provider Comments Provider responsibility: Provider responsible to enter orders to implement recommendations Provider Comments to Recommendations by Pharmacy: Agree
[2019-03-08 16:00] VITALS: BP 118/46; PULSE 96; RESP 18; TEMP 37.1; O2SAT 100
--- NOTE | 2019-03-08 16:25 | CHAPLAIN ---
Type of Pastoral Visit _x__ Initial Visit ___ Follow-up Visit ___ On-call Visit ___ General Patient Visit ___ Spiritual Assessment ___ Family Conference ___ Bereavement ___ Rapid Response ___ Code Blue ___ Other (describe below) Pastoral Care Referral From _x__ Patient ___ Family ___ Nurse ___ Physician ___ Professor Of Marketing ___ Comparator Operator ___ Other (describe below) Sacrament/Intervention _x__ Active listening ___ Anointing ___ Jain ___ Bereavement ___ Communion ___ Rosa Maria exploration ___ _x__ Life review _x__ Prayer ___ Reconciliation ___ Sacrament of Sick _x__ Supportive presence ___ Wedding ___ Other (describe below) Pastoral Comments patient has concerns about future living arrangements for spouse and herself; SW was notified about this concern and she will follow up; 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
[2019-03-08] MEDS: Acetaminophen 500 MG Tablet 1000 MG PO (20:14)
[2019-03-08 20:19] VITALS: PULSE 60; RESP 16
[2019-03-09 00:12] VITALS: O2SAT 94
[2019-03-09] MEDS: Enoxaparin 40 MG/0.4 ML Syringe SC (06:30)
[2019-03-09] MEDS: morphine SR 15 MG Tablet PO ×2 (06:31→17:28)
[2019-03-09] MEDS: Senna/Docusate Sodium 1 Tablet 2 TABLET PO ×2 (06:31→17:28)
[2019-03-09] MEDS: Menthol/Lanolin/Calamine/Znox 113 GM Tube 1 APPLIC TOPICAL ×3 (06:32→21:23)
[2019-03-09] MEDS: Midodrine HCl 5 MG Tablet 2.5 MG PO ×3 (06:33→21:24)
[2019-03-09 06:37] VITALS: PULSE 60; O2SAT 96
[2019-03-09 07:08] VITALS: O2SAT 96
[2019-03-09] MEDS: Smz/Tmp Ds Tablet 1 TABLET PO ×2 (08:38→16:36)
[2019-03-09] MEDS: Gabapentin 100 MG Capsule PO ×2 (08:38→16:36)
[2019-03-09] MEDS: Gemfibrozil 600 MG Tablet PO ×2 (08:38→16:36)
[2019-03-09] MEDS: Acetaminophen 500 MG Tablet 1000 MG PO (08:40)
[2019-03-09 15:43] VITALS: BP 140/59; PULSE 50; RESP 16; TEMP 37.1; O2SAT 93
--- NOTE | 2019-03-09 16:08 | CASEMGMT ---
Social Work Spoke with pt and IDT about pt request on discharging home. Pt states she has met her goals of getting stronger, walking farther than prior and doing ADLS independently. Pt completed 3 steps with handrails. observed pt therapy and is comfortable with DC. Pt denied any DME or HHC/outpatient - states she will be adamant about completing home exercises. Pt and agreeable to DC home 03/11. Plan: DC home with 03/11 with no needs. ALEIDA AndinoW
--- NOTE | 2019-03-09 21:23 | DCINST_ITS ---
- Discharge Diagnoses Current Active Problems: Current Active and Chronic Problems (Last Reviewed 03/04/19 @ 05:44 by Quinn South MD) Debility (Acute) Chronic back pain (Chronic) Orthostatic hypotension (Acute) Hyperlipidemia (Chronic) Neuropathic pain (Chronic) Opioid dependence (Chronic) Recurrent UTI (Chronic) Tobacco abuse (Chronic) You will use the following diet at home:: No restrictions, Regular Your food should be the consistency of: Regular Your liquids should be the consistency of: Regular/Thin Discharge Activity: Return to Normal Activity, May Shower, Use Walker Weight Bearing Status: Weight bearing as tolerated Call your doctor if you observe: Fever of 101 or Higher, Inability to urinate, Inability to have a bowel movement, Shortness of breath, Chest pain, Uncontroll ed pain Allergies/Adverse Reactions: Allergies No Known Allergies Allergy (Verified 09/09/16 14:43) Medications to take at Discharge Gemfibrozil 600 mg PO BID 03/03/19 Smz/Tmp Ds [Bactrim Ds] 1 tab PO BID 03/03/19 Menthol/Lanolin/Calamine/Znox [Calmoseptine Ointment] 1 applic TOPICAL TID 03/07/19 Acetaminophen [Tylenol] 1,000 mg PO Q6H PRN PRN tab 03/09/19 Gabapentin [Neurontin] 100 mg PO BIDCM #60 cap 03/09/19 Mineral Oil/Petrolatum,White [Eucerin] 1 applic TOPICAL 0600,2200 jar 03/09/19 Nicotine [Nicoderm Cq] 21 mg TRANSDERM. DAILY #30 patch 03/09/19 morphine SR tablet [Ms Contin] 15 mg PO BID 7 Days #14 tab 03/09/19 The following prescriptions were given: morphine SR tablet [Ms Contin] 15 mg PO BID 7 Days #14 tab Prescription Printed Gabapentin [Neurontin] 100 mg PO BIDCM #60 cap Transmission Status: Pending to [facility] #30 Nicotine [Nicoderm Cq] 21 mg TRANSDERM. DAILY #30 patch Transmission Status: Pending to [facility] #30 Primary Care Physician: Matthew Valdivia DO [Primary Care Provider] - Please follow up with your Primary Care Physician in: 1 week. Test Results: Test results from this visit will be discussed in further detail at your follow- up appointment, if applicable. Proposed Discharge Date: 03/11/19
--- NOTE | 2019-03-09 21:25 | DS.PCM_ITS ---
Discharge Date and Diagnosis - Problem List Patient Problems: Active and Suspected Problems (Last Reviewed 03/04/19 @ 05:44 by Quinn South MD) Debility (Acute) Orthostatic hypotension (Acute) Date of Admission: 03/07/19 Date of Discharge: 03/11/19 - Primary Discharge Diagnosis Active and Suspected Problems (Last Reviewed 03/04/19 @ 05:44 by Quinn South MD) Debility (Acute) Orthostatic hypotension (Acute) - Secondary Discharge Diagnosis Chronic Problems (Last Reviewed 03/04/19 @ 05:44 by Quinn South MD) Chronic respiratory failure with hypoxia (Chronic) COPD (chronic obstructive pulmonary disease) (Chronic) Nicotine abuse (Chronic) Chronic back pain (Chronic) Hyperlipidemia (Chronic) Neuropathic pain (Chronic) Opioid dependence (Chronic) Recurrent UTI (Chronic) Tobacco abuse (Chronic) Hospital Course and Treatment Imaging Results: 03/07/19 17:39 Diet: Regular Diet Diet Comments: give small portions Labs (Last 48 Hours) 03/08/19 03/08/19 05:10 05:10 WBC 3.4 L RBC 4.01 L Hgb 12.6 Hct 40.2 MCV 100.2 H MCH 31.4 MCHC 31.3 L RDW Std Deviation 48.6 H RDW Coeff of Alverto 13.2 Plt Count 121 L MPV 10.6 Immature Gran % (Auto) 0.300 Neut % (Auto) 56.0 Lymph % (Auto) 30.0 [place] % (Auto) 12.5 H Eos % (Auto) 0.6 Baso % (Auto) 0.6 Absolute Neuts (auto) 1.9 L Absolute Lymphs (auto) 1.03 Nucleated RBC % 0 Sodium 143 Potassium 4.2 Chloride 103 Carbon Dioxide 36.0 H Anion Gap 4 L BUN 21 H Creatinine 0.75 Estim Creat Clear Calc 50.41 Est GFR (MDRD) Af Amer 99 Est GFR (MDRD) Non-Af 82 BUN/Creatinine Ratio 28.0 H Glucose 84 Calcium 8.8 Operations: None Procedures: None Summary of Care Provided: The patient is a 68 year old Female with below past medical history hospitalized for weakness, encephalopathy, hypotension secondary to polypharmacy, admitted to TCU with debility, here for rehabilitation, strengthening, prior to discharge home with . Morphine, Gabapentin dose decreased. Lyrica stopped. Consider tapering off Morphine and/or Gabapentin if possible. Resident had no untoward effects from stopping Lyrica, and lowering morphine, gabapentin. Nicotine patches added to aid in smoking cessation. Discharge home with . Patient Problems: Active and Suspected Problems (Last Reviewed 03/04/19 @ 05:44 by Quinn South MD) Debility (Acute) Orthostatic hypotension (Acute) - Physical Exam Vital Signs Temp Pulse Resp BP Pulse Ox 98.8 F 50 L 16 140/59 H 93 03/09/19 15:43 03/09/19 15:43 03/09/19 15:43 03/09/19 15:43 03/09/19 15:43 Oxygen Flow Rate (L/min) 2 Oxygen Delivery Method Nasal Cannula Weight: 73.624 kg Body Mass Index (BMI) 26.2 Intake and Output for Last 24 Hours 03/07/19 03/08/19 03/09/19 23:59 23:59 23:59 Intake Total 120 / 120 920 / 920 1080 / 1080 Balance 120 / 120 920 / 920 1080 / 1080 Discharge Diet: No Restrictions Discharge Activity: Return to Normal Activity, May Shower, Use Walker Weight Bearing Status: Weight bearing as tolerated Call your doctor if you observe: Fever of 101 or Higher, Inability to urinate, Inability to have a bowel movement, Shortness of breath, Chest pain, Uncontrolled pain Home Medications: Medications to take at Discharge Gemfibrozil 600 mg PO BID 03/03/19 Smz/Tmp Ds [Bactrim Ds] 1 tab PO BID 03/03/19 Menthol/Lanolin/Calamine/Znox [Calmoseptine Ointment] 1 applic TOPICAL TID 03/07/19 Acetaminophen [Tylenol] 1,000 mg PO Q6H PRN PRN tab 03/09/19 Gabapentin [Neurontin] 100 mg PO BIDCM #60 cap 03/09/19 Mineral Oil/Petrolatum,White [Eucerin] 1 applic TOPICAL 0600,2200 jar 03/09/19 Nicotine [Nicoderm Cq] 21 mg TRANSDERM. DAILY #30 patch 03/09/19 morphine SR tablet [Ms Contin] 15 mg PO BID 7 Days #14 tab 03/09/19 Following Prescrptions Were Given to Patient: morphine SR tablet [Ms Contin] 15 mg PO BID 7 Days #14 tab Prescription Printed Gabapentin [Neurontin] 100 mg PO BIDCM #60 cap Transmission Status: Pending to [facility] #30 Nicotine [Nicoderm Cq] 21 mg TRANSDERM. DAILY #30 patch Transmission Status: Pending to [facility] #30 Primary Care Physician: Matthew Valdivia DO [Primary Care Provider] - Please follow up with your Primary Care Physician in: 1 week. Disposition: Home Minutes spent on discharge:: 30 Patient Condition:: Good Medical Necessity - Tobacco Use Smoking Status: Current every day smoker Tobacco Use: Cigarettes Meaningful Use Info Meaningful Use Diagnoses (Choose all that apply): None applicable
[2019-03-09 22:00] VITALS: PULSE 58; RESP 16; O2SAT 97
[2019-03-10] MEDS: Enoxaparin 40 MG/0.4 ML Syringe SC (05:14)
[2019-03-10] MEDS: Midodrine HCl 5 MG Tablet 2.5 MG PO ×3 (05:15→20:35)
[2019-03-10] MEDS: Menthol/Lanolin/Calamine/Znox 113 GM Tube 1 APPLIC TOPICAL ×3 (05:15→20:35)
[2019-03-10] MEDS: Senna/Docusate Sodium 1 Tablet 2 TABLET PO ×2 (05:16→17:00)
[2019-03-10] MEDS: morphine SR 15 MG Tablet PO ×2 (05:22→17:00)
[2019-03-10] MEDS: Gemfibrozil 600 MG Tablet PO ×2 (08:03→16:56)
[2019-03-10] MEDS: Smz/Tmp Ds Tablet 1 TABLET PO ×2 (08:03→16:56)
[2019-03-10] MEDS: Gabapentin 100 MG Capsule PO ×2 (08:03→16:57)
--- NOTE | 2019-03-10 09:17 | CASEMGMT ---
Social Work BIMS and PHQ-9 completed for MDS assessment. Paris Bernabe, COMPLETION MANAGER ALCOHOL RUBBER
[2019-03-10 09:50] VITALS: RESP 16
--- NOTE | 2019-03-10 14:13 | MDS.RN ---
Pain interview for dave 03/11/19 completed.
[2019-03-10 15:45] VITALS: BP 125/82; PULSE 70; RESP 18; TEMP 36.9; O2SAT 96
[2019-03-11] MEDS: morphine SR 15 MG Tablet PO (05:02)
[2019-03-11] MEDS: Menthol/Lanolin/Calamine/Znox 113 GM Tube 1 APPLIC TOPICAL (05:03)
[2019-03-11] MEDS: Enoxaparin 40 MG/0.4 ML Syringe SC (05:04)
[2019-03-11] MEDS: Midodrine HCl 5 MG Tablet 2.5 MG PO (05:06)
[2019-03-11] MEDS: Gabapentin 100 MG Capsule PO (08:26)
[2019-03-11] MEDS: Gemfibrozil 600 MG Tablet PO (08:26)
[2019-03-11] MEDS: Smz/Tmp Ds Tablet 1 TABLET PO (08:26)
[2019-03-11 10:00] VITALS: PULSE 62; RESP 16; O2SAT 96
[2019-03-11 11:29] VITALS: BP 94/63; PULSE 62; RESP 16; TEMP 36.1; O2SAT 96
--- NOTE | 2019-03-20 09:16 | MDS.RN ---
Information for the mds was obtained from review of the clinical record, interview of resident, staff, and direct observation of resident's care.
== END 2019-03-11 10:55 | disposition home or self-care (01) | DRG 92 ==
PROVIDERS: Admitting Provider Family Medicine Geriatric Medicine; Family Provider Family Medicine; PCP Family Medicine; Referring Provider Family Medicine Geriatric Medicine; Visit Provider Family Medicine Geriatric Medicine
DX: G92 Toxic encephalopathy (principal); F11.20 Opioid dependence, uncomplicated; J96.11 Chronic respiratory failure with hypoxia; E78.5 Hyperlipidemia, unspecified; J44.9 Chronic obstructive pulmonary disease, unspecified; I95.1 Orthostatic hypotension; G89.29 Other chronic pain; Z99.81 Dependence on supplemental oxygen; I10 Essential (primary) hypertension; F17.210 Nicotine dependence, cigarettes, uncomplicated
CPT/HCPCS: 36415; 80048; 85025; 97110; 97116; 97162; 97165; 97530; 97535; 97802; 99406

== ENCOUNTER → 2019-03-17 11:27 | Outpatient (CLI) | payer MEDICARE, OTHER, SELFPAY ==
[2019-03-07 18:01] VITALS: BMI 26.2
--- NOTE | 2019-03-17 11:32 | RAD_ITS ---
STUDY: X-RAY - LEFT KNEE REASON FOR EXAM: Left knee pain after fall/hyperextension injury 03/11/2019. TECHNIQUE: 4 view(s) of the knee. COMPARISON: None. FINDINGS: Normal visualized distal femur. Normal visualized proximal tibia and fibula. Normal proximal tibiofibular articulation. There is mild space narrowing of the medial femorotibial compartment. There is mild joint space narrowing of the lateral femorotibial compartment. Normal patellofemoral articulation. There is vascular calcification. RAD/Knee 4 or More Views IMPRESSION: Mild arthrosis of the medial and lateral femorotibial compartments. Electronically Signed: Mando Warren MD at 16:01 EDT Tel , Service support ,
== END ==
PROVIDERS: Family Provider Family Medicine; PCP Family Medicine; Referring Provider Family Medicine; Visit Provider Family Medicine
DX: M25.562 Pain in left knee (principal)
CPT/HCPCS: 73564

== ENCOUNTER → 2019-07-11 14:14 | Outpatient (CLI) | payer MEDICARE, OTHER, SELFPAY ==
--- NOTE | 2019-07-11 14:19 | RAD_ITS ---
STUDY: X-RAY - LUMBAR SPINE REASON FOR EXAM: Female, 68 years old. degeneration of lumbar or lumbosacral intervertebral disc -- back pain TECHNIQUE: 5 view(s) of the lumbar spine were obtained. COMPARISON: 10 February 2013 FINDINGS: Lumbar spine is intact with degenerative changes in the lower lumbar facets. There is grade 1 degenerative anterolisthesis of L5 on S1, less than 2 mm and stable since prior. There is thoracic hardware fusion. Mineralization is diffusely decreased. There are extensive aortic atherosclerotic calcifications. Appearance is similar to prior. RAD/L/S Spine Min 4 Views IMPRESSION: Degenerative changes. Osteoporosis. Atherosclerosis. Prior lower thoracic hardware instrumentation. Electronically Signed: Etienne Bowman, at 9:25 EST Tel , Service support ,
== END ==
PROVIDERS: PCP Family Medicine; Referring Provider Nurse Practitioner Family; Visit Provider Nurse Practitioner Family
DX: M51.36 Other intervertebral disc degeneration, lumbar region (principal); M54.9 Dorsalgia, unspecified
CPT/HCPCS: 72110

== ENCOUNTER 2020-08-06 14:05 | Outpatient (RCR) | payer MEDICARE, OTHER, SELFPAY ==
[2020-08-06] MEDS: COVID-19 VACC, MRNA(PFIZER)/PF 30 MCG/0.3 ML SYRINGE IM (15:49)
[2020-08-27] MEDS: COVID-19 VACC, MRNA(PFIZER)/PF 30 MCG/0.3 ML SYRINGE IM (15:52)
== END 2020-11-05 23:59 ==
LOC: IMMUN 14:05
PROVIDERS: PCP Family Medicine; Referring Provider Family Medicine; Visit Provider Family Medicine
DX: Z23 Encounter for immunization (principal)
CPT/HCPCS: 0001A; 0002A; 91300

== ENCOUNTER 2021-05-05 10:51 | Emergency (ER) | payer MEDICARE, OTHER, SELFPAY ==
[2021-05-05 10:52] VITALS: BP 94/57; PULSE 88; RESP 18; TEMP 35.9; O2SAT 94; BMI 32.3
[2021-05-05 11:16] VITALS: O2SAT 93
--- NOTE | 2021-05-05 11:16 | RAD_ITS ---
STUDY: X-RAY CHEST REASON FOR EXAM: Female, 70 years old. Shortness of breath and chest pain with a deep inspiration. TECHNIQUE: Single AP portable view of the chest. COMPARISON: Comparison is made with prior examination dated 03/03/2019. FINDINGS: Mild degree of residual increased markings at the lung bases likely worse on the right side suggestive of linear atelectasis and/or early infiltrate. There is no demonstrated pleural abnormality. There is mild cardiac enlargement. Normal mediastinum and mark. Normal visualized pulmonary arteries. There is atherosclerotic calcification of the aortic arch with tortuosity. The patient is status post interpedicular screw and anjel fixation of the thoracic spine. Dextroscoliosis. Normal visualized ribs, clavicles, and shoulders. There is no demonstrated abnormality of the visualized soft tissue structures of the upper abdomen. RAD/Chest 1 View (Portable) IMPRESSION: Mild degree of increased markings at the lung bases suggestive of bibasilar atelectasis and/or infiltrates. Follow-up is recommended. Electronically Signed: Óscar Leyva MD at 12:23 EST , Service support ,
--- NOTE | 2021-05-05 11:16 | EKG12_ITS ---
Test Reason : RIB PAIN Blood Pressure : / mmHG Vent. Rate : 088 BPM Atrial Rate : 088 BPM P-R Int : 194 ms QRS Dur : 092 ms QT Int : 360 ms P-R-T Axes : 072 -06 060 degrees QTc Int : 435 ms Normal sinus rhythm Low voltage QRS Confirmed by ROSA ROMERO, BENNY ([id number]), scientific editor NAMITA OVIEDO ([id number]) on 05/07/2021 10:30:21 AM Referred By: BENNY Confirmed By:BENNY LEE MD
[2021-05-05 11:41] LABS: Absolute Lymphocyte Count 0.66 X10^3/uL (0.83-4.51); Absolute Neutrophil Count 5.8 X10^3/uL (2.0-7.7); Basophil# 0.02 X10^3/uL; Basophil% 0.3 % (0-1); Eosinophil# 0.01 X10^3/uL; Eosinophils% 0.1 % (0-5); Hematocrit 35.2 % (37-47); Hemoglobin 11.2 g/dL (12.0-15.0); Lymphocyte # 0.66 X10^3/ul (0.83-4.51); Lymphocyte % 9.2 % (19-41); Mean Corp Hgb Conc 31.8 g/dL (32-36); Mean Corpuscular Hgb 31.9 pg (27.0-32.0); Mean Corpuscular Volume 100.3 fL (81-99); Mean Platelet Vol. 9.9 fl (6.2-12.0); Monocyte# 0.69 X10^3/uL; Monocyte% 9.6 % (0-10); NRBC Flagged by Analyzer 0 % (0-5); Neutrophil # 5.76 X10^3/uL (2.7-7.7); Neutrophil % 80.2 % (47-70); Platelet Count 136 K/mm3 (150-450); RBC Distribution Width CV 13.2 % (11.6-14.6); RBC Distribution Width SD 48.5 fl (35.1-43.9); Red Blood Count 3.51 M/mm3 (4.2-5.4); White Blood Count 7.2 K/mm3 (4.4-11.0)
[2021-05-05 11:56] LABS: D-Dimer Quantitative (DVT/PE) 3.42 FEU/ug/m (0.27-0.49)
[2021-05-05 11:59] LABS: Anion Gap 11 (5-15); BUN 58 mg/dL (7-18); BUN/Creat Ratio 18.1 RATIO (10-20); Chloride 104 mmol/L (98-107); Creatinine, Serum 3.21 mg/dL (0.55-1.02); EST Glomerular Filtration Rate 15 mL/min (>60); Est Glom Filt Rate - Afr Amer 18 mL/min (>60); Estimated Creatinine Clearance 15.27 ml/min; Glucose 99 mg/dL (74-106); Potassium 4.2 mmol/L (3.5-5.1); Sodium Level 138 mmol/L (136-145); Troponin-I HS 19 pg/mL (3.0-54.0)
[2021-05-05 12:39] VITALS: BP 80/69; PULSE 82; RESP 18; O2SAT 92
[2021-05-05 12:52] VITALS: BP 80/69; PULSE 82; RESP 18; O2SAT 92
--- NOTE | 2021-05-05 12:52 | ED.RN ---
PT SIGNED OUT AMA, DR. ZAPATA EXPLAINED RISKS AT BEDSIDE WITH THIS RN. PT AND FAMILY VERBALIZED UNDERSTANDING OF LEAVING AMA. PT D/C TO HOME WITH FAMILY.
--- NOTE | 2021-05-05 13:13 | ED.VIS.CHEST ---
HPI History of Present Illness Chief Complaint: Shortness of Breath Narrative Narrative: Patient presenting with sharp pleuritic pain in the right ribs. This just recently started. She does describe some shortness of breath and pain with deep inspiration. 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 She is not currently anticoagulated. Patient does states she is dyspneic on exertion. She is not describing orthopnea. She states has been eating and drinking normally. She is making normal urine and stool. PFSH PFS Medical History HLD (hyperlipidemia) HTN (hypertension) Home Medications gemfibrozil 600 mg PO BID 03/03/19 [History Last Taken 03/03/19] sulfamethoxazole-trimethoprim 1 tab PO BID 03/03/19 [History Last Taken 03/03/19] menthol-zinc oxide 1 applic TOPICAL TID 03/07/19 [History Last Taken Unknown] acetaminophen 1,000 mg PO Q6H PRN PRN tab 03/09/19 [Rx Last Taken Unknown] gabapentin 100 mg PO BIDCM #60 cap 03/09/19 [Rx Last Taken Unknown] morphine 15 mg PO BID 7 Days #14 tab 03/09/19 [Rx Last Taken Unknown] nicotine 21 mg TRANSDERM. DAILY #30 patch 03/09/19 [Rx Last Taken Unknown] white petrolatum-mineral oil 1 applic TOPICAL 0600,2200 jar 03/09/19 [Rx Last Taken Unknown] Allergy/AdvReac Type Severity Reaction Status Date / Time No Known Allergies Allergy Verified 05/05/21 11:04 Social History Smoking Status: Former smoker ROS ROS ED Constitutional Constitutional ED: Denies chills, fever(s) or subjective Eyes Eyes: Denies blurry vision or change in vision ENT ENT ED: Denies rhinorrhea or sore throat Cardiovascular Cardiovascular: Reports as per HPI and chest pain Respiratory/Chest Respiratory/Chest: Reports dyspnea and dyspnea on exertion; Denies cough Gastrointestinal Gastrointestinal: Denies abdominal pain or nausea Genitourinary Genitourinary ED: Denies dysuria or hematuria Musculoskeletal Musculoskeletal: Denies arthralgias or myalgias Integumentary Denies abscess or rash Neurologic Neurologic: Denies headache(s) Psychiatric Psychiatric: Denies anxiety or depression EXAM Physical Exam Const Vital Signs: 05/05/21 10:52 05/05/21 11:03 05/05/21 11:16 Temperature 96.7 F L Temperature Source Temporal Pulse Rate 88 Respiratory Rate 18 Respiratory Effort Normal Non-Labored Respiratory Depth Normal Respiratory Pattern Normal Blood Pressure 94/57 L Blood Pressure Mean 69 Pulse Ox 94 93 Oxygen Delivery Method Room Air Room Air Room Air 05/05/21 12:39 05/05/21 12:52 Temperature Temperature Source Pulse Rate 82 82 Respiratory Rate 18 18 Respiratory Effort Respiratory Depth Respiratory Pattern Blood Pressure 80/69 L 80/69 L Blood Pressure Mean 72 Pulse Ox 92 92 Oxygen Delivery Method Room Air Positive obese General Appearance ED: NAD; Negative for pallor Nutritional Appearance: obese HEENT normocephalic and atraumatic Eyes PERRL and EOMs intact bilaterally Chest Wall inspection of chest normal and palpation of chest normal Resp normal respiratory effort and clear to auscultation bilaterally Effort and Inspection: respiratory distress Cardio regular rate and regular rhythm Extremity normal to inspection General Extremety ED: Negative for edema or tenderness General Extremity: Negative for edema Neuro oriented x3 and CN's II-XII intact bilaterally Sensorium / Orientation: awake and alert Psych mental status grossly normal Skin General Skin Exam: Negative for jaundice or pallor Heart Score History: Slightly/Non-Suspicious ECG: Normal Age: >/= 65 years Risk Factors: >/= 3 Risk Factors or History of CAD Troponin: </= Normal Limit Score: 4 MDM MDM MDM Narrative Medical decision making narrative: Patient presenting with sharp chest pain and concern for PE with history of DVT/PE and is currently not anticoagulated. I did obtain a cardiac work-up and her EKG is sinus rhythm at a ventricular rate of 88 bpm without sign of ischemic change on my interpretation. Chest x-ray on my interpretation shows bibasilar atelectasis. Radiologist does state that this could be infiltrates. Patient is not having fever, chills, body aches. It is unclear that this would be pneumonia without an elevated white blood cell count. Her CBC shows her white blood cell count is 7.2. Hemoglobin is stable at 11.2. Creatinine is acutely elevated at 3.21. This was 0.075 and 2019. Patient counseled that she will need to be admitted for her renal failure, and in the interim we can obtain a VQ scan to the rule out PE because I cannot do a CTA with her renal function so bad. She states that she does not want to stay in the hospital. She does not want IV fluids. She acknowledges that we cannot diagnose a PE and therefore she cannot be anticoagulated and this might kill her. She also acknowledges that her renal failure could kill her. Her GFR is currently 15. She states that she does not want to stay in the hospital and she acknowledges the risk of , debility, injury. I asked her if she would prefer to speak with her about this and she stated that she would not. At this point we discussed DNR status and she wishes to be a DNR CCA with no intubation. She does not want CPR. I had her fill out the form for this. I did recommend to her that she could return at any time if she changes her mind. She acknowledges understanding this. I spoke with Dr. Valdivia her primary care physician and he states that he will try to follow-up with her. He does acknowledge that she has a poor quality of living and has for some time. He believes this is why she is making this decision. Patient appears mentally clear and has a capacity to make this decision. I will discharge her AGAINST MEDICAL ADVICE. Impression: 1. Chest pain 2. Acute renal failure 3. AMA Lab Data Labs: Laboratory Results - last 24 hr 05/05/21 05/05/21 05/05/21 11:35 11:35 11:35 WBC 7.2 RBC 3.51 L Hgb 11.2 L Hct 35.2 L MCV 100.3 H MCH 31.9 MCHC 31.8 L RDW Std Deviation 48.5 H RDW Coeff of [place]ver[place] 13.2 Plt Count 136 L MPV 9.9 Immature Gran % (Auto) 0.600 Neut % (Auto) 80.2 H Lymph % (Auto) 9.2 L [place] % (Auto) 9.6 Eos % (Auto) 0.1 Baso % (Auto) 0.3 Absolute Neuts (auto) 5.8 Absolute Lymphs (auto) 0.66 L Nucleated RBC % 0 D-Dimer Quant (PE/DVT) 3.42 H* Sodium 138 Potassium 4.2 Chloride 104 Carbon Dioxide 23.0 Anion Gap 11 BUN 58 H Creatinine 3.21 H Estim Creat Clear Calc 15.27 Est GFR (MDRD) Af Amer 18 L Est GFR (MDRD) Non-Af 15 L BUN/Creatinine Ratio 18.1 Glucose 99 Calcium 9.0 Troponin I High Sens 19 Radiography Diagnostic Testing: Clinical Impression(s) from Imaging Studies Chest X-Ray 05/05/21 11:16 IMPRESSION: Mild degree of increased markings at the lung bases suggestive of bibasilar atelectasis and/or infiltrates. Follow-up is recommended. Electronically Signed: Óscar Leyva MD at 12:23 EST , Service support , Discharge Plan Triage Chief Complaint: Shortness of Breath ED Provider: Hi Alvarado Dx/Rx/DC Orders Instructions: ED Chest Pain, Uncertain Cause, ED Renal Insufficiency Prescriptions: No Action sulfamethoxazole-trimethoprim 1 TABLET tablet 1 tab PO BID RF: 0 gemfibrozil 600 MG tablet 600 mg PO BID RF: 0 menthol-zinc oxide 1 APPLIC ointment 1 applic topical TID RF: 0 acetaminophen 500 MG tablet 1,000 mg PO Q6H PRN PRN (Reason: Pain Score 1-10/10) RF: 0 white petrolatum-mineral oil 1 APPLIC cream 1 applic topical 0600,2200 RF: 0 nicotine 21 MG patch 21 mg TRANSDERM. DAILY Qty: 30 RF: 0 morphine 15 MG tablet 15 mg PO BID 7 Days Qty: 14 RF: 0 gabapentin 100 MG capsule 100 mg PO BIDCM Qty: 60 RF: 0 Primary Care Provider: Matthew Valdivia Referrals: Matthew Valdivia DO [Primary Care Provider] - Disposition Disposition: Home, Self Care Discharge Date/Time: 05/05/21 12:55
== END 2021-05-05 12:55 | disposition home or self-care (01) ==
PROVIDERS: Emergency Provider Student in an Organized Health Care Education/Training Program; PCP Family Medicine
DX: R07.9 Chest pain, unspecified (principal); N17.9 Acute kidney failure, unspecified; R06.02 Shortness of breath; R07.81 Pleurodynia; R07.1 Chest pain on breathing; I10 Essential (primary) hypertension; E78.5 Hyperlipidemia, unspecified; Z79.899 Other long term (current) drug therapy; Z86.718 Personal history of other venous thrombosis and embolism; Z86.711 Personal history of pulmonary embolism; Z87.891 Personal history of nicotine dependence
CPT/HCPCS: 71045; 80048; 84484; 85025; 85379; 93005; 99285; A4216

== ENCOUNTER 2021-05-06 15:25 | Inpatient (IN) | payer MEDICARE, OTHER, SELFPAY ==
[2021-05-06] VITALS (13 sets, daily range): BP systolic 75–170; BP diastolic 55–95; PULSE 74–87; RESP 15–22; TEMP 36.1–36.6; O2SAT 89–97; BMI 32.3; BMI 36.1
--- NOTE | 2021-05-06 15:50 | EKG12_ITS ---
Test Reason : DYSRHYTHMIA Blood Pressure : / mmHG Vent. Rate : 080 BPM Atrial Rate : 080 BPM P-R Int : 176 ms QRS Dur : 092 ms QT Int : 350 ms P-R-T Axes : 005 -06 053 degrees QTc Int : 403 ms Normal sinus rhythm Normal ECG Confirmed by URIEL ROMERO, TANA ([id number]), video tape editor NAMITA OVIEDO ([id number]) on 05/07/2021 1:57:16 PM Referred By: MELINDA Confirmed By:TANA TREVINO MD
[2021-05-06 16:02] LABS: Absolute Neutrophil Count 6.1 X10^3/uL (2.0-7.7); Basophil# 0.02 X10^3/uL; Basophil% 0.3 % (0-1); Eosinophil# 0.01 X10^3/uL; Eosinophils% 0.1 % (0-5); Hematocrit 33.8 % (37-47); Lymphocyte % 11.7 % (19-41); Mean Corp Hgb Conc 32.5 g/dL (32-36); Mean Corpuscular Hgb 32.5 pg (27.0-32.0); Mean Platelet Vol. 11.6 fl (6.2-12.0); Monocyte# 0.65 X10^3/uL; Monocyte% 8.5 % (0-10); NRBC Flagged by Analyzer 0 % (0-5); Neutrophil # 6.05 X10^3/uL (2.7-7.7); Neutrophil % 78.9 % (47-70); Platelet Count 197 K/mm3 (150-450); RBC Distribution Width CV 13.6 % (11.6-14.6); RBC Distribution Width SD 50.3 fl (35.1-43.9); Red Blood Count 3.38 M/mm3 (4.2-5.4); White Blood Count 7.7 K/mm3 (4.4-11.0)
--- NOTE | 2021-05-06 16:23 | ED.RN ---
blood is hemolized
--- NOTE | 2021-05-06 16:30 | RAD_ITS ---
STUDY: X-RAY CHEST REASON FOR EXAM: Female, 70 years old. PT WAS SEEN YESTERDAY FOR CHEST PAIN AND POSSIBLE PE. PT LEFT AMA. SEEN PCP TODAY AND IS WILLING TO BE ADMITTED TODAY. PT IN RENAL FAILURE AND HAVING R SIDED CHEST AND BACK PAIN TECHNIQUE: AP COMPARISON: 05/05/2021 FINDINGS: Focal scarring of the lung bases stable. There is no demonstrated pleural abnormality. Normal size heart. Normal mediastinum and mark. Normal visualized pulmonary arteries. Normal visualized aortic arch and descending thoracic aorta. Similar fusion hardware of the thoracic spine. Normal visualized ribs, clavicles, and shoulders. There is no demonstrated abnormality of the visualized soft tissue structures of the upper abdomen. RAD/Chest 1 View (Portable) IMPRESSION: No airspace consolidation or pleural effusion. Electronically Signed: David Edmondson MD ([place]) at 16:44 EST , Service support ,
[2021-05-06 17:51] LABS: Anion Gap 9 (5-15); BUN 65 mg/dL (7-18); BUN/Creat Ratio 18.1 RATIO (10-20); Calcium,Total 9.4 mg/dL (8.5-10.1); Chloride 103 mmol/L (98-107); Creatinine, Serum 3.59 mg/dL (0.55-1.02); EST Glomerular Filtration Rate 13 mL/min (>60); Est Glom Filt Rate - Afr Amer 16 mL/min (>60); Estimated Creatinine Clearance 13.65 ml/min; Glucose 104 mg/dL (74-106); Potassium 4.6 mmol/L (3.5-5.1); Sodium Level 136 mmol/L (136-145); Troponin-I HS 21 pg/mL (3.0-54.0)
[2021-05-06] MEDS: Aspirin 81 MG TAB.CHEW 324 MG PO (18:29)
--- NOTE | 2021-05-06 18:53 | EDS_ITS ---
HPI History of Present Illness Chief Complaint: Chest Pain Informant: patient Onset/Context/Timing Onset: Days (3 days) Current Severity: Moderate Maximum Severity: Moderate Narrative Narrative: Patient presents secondary to right-sided chest pain and shortness of breath. Patient states she woke up Wednesday morning with symptoms. She thought she just laid funny on her side. She did report shortness of breath and increased pain with deep breath. She is a history of PE and felt this was similar. The following day she went to urgent care where she was then sent to the emergency room. Work-up in the emergency room revealed renal failure with a creatinine over 3. D-dimer was elevated but patient was not able to undergo CTA because of her renal condition. Patient signed out AMA. She returns back today stating that she is willing to be admitted for further evaluation. [facility] Medical History (Updated 05/06/21 @ 19:[address] Livier Whipple MD) Chronic back pain COPD (chronic obstructive pulmonary disease) History of pulmonary embolism HLD (hyperlipidemia) HTN (hypertension) Home Medications gemfibrozil 600 mg PO BID 03/03/19 [History Last Taken 03/03/19] sulfamethoxazole-trimethoprim 1 tab PO BID 03/03/19 [History Last Taken 03/03/19] gabapentin 100 mg PO BIDCM #60 cap 03/09/19 [Rx Last Taken Unknown] lisinopril-hydrochlorothiazide 1 tab DAILY 05/06/21 [History Last Taken Unknown] phentermine 37.5 mg DAILY 05/06/21 [History Last Taken Unknown] Allergy/AdvReac Type Severity Reaction Status Date / Time No Known Allergies Allergy Verified 05/06/21 15:27 Social History Smoking Status: Former smoker ROS ROS ED Constitutional Constitutional ED: Denies chills or fever(s) Eyes Eyes: Denies change in vision ENT ENT ED: Denies sore throat Cardiovascular Cardiovascular: Reports chest pain Respiratory/Chest Respiratory/Chest: Reports dyspnea; Denies cough Gastrointestinal Gastrointestinal: Denies abdominal pain, diarrhea, nausea or vomiting Genitourinary Genitourinary ED: Denies dysuria Musculoskeletal Musculoskeletal: Denies back pain Integumentary Denies rash Neurologic Neurologic: Denies headache(s) or weakness Psychiatric Psychiatric: Denies anxiety or depression Endocrine Endocrinology: Denies polydipsia or polyuria Allergic/Immunologic Allergic/Immunologic ED: Denies urticaria EXAM Physical Exam Const Vital Signs: 05/06/21 15:25 05/06/21 18:34 05/06/21 18:35 Temperature 96.9 F L Temperature Source Temporal Pulse Rate 83 87 Respiratory Rate 18 20 H Respiratory Effort Respiratory Pattern Blood Pressure 170/95 H 81/65 L Blood Pressure Mean 120 70 Pulse Ox 93 95 Oxygen Delivery Method Room Air Room Air Room Air 05/06/21 19:00 Temperature Temperature Source Pulse Rate Respiratory Rate Respiratory Effort Normal Non-Labored Respiratory Pattern Normal Blood Pressure Blood Pressure Mean Pulse Ox Oxygen Delivery Method Positive well nourished and well developed General Appearance ED: well developed HEENT Reports moist mucous membranes Eyes PERRL and EOMs intact bilaterally Neck no lymphadenopathy and supple Chest Wall inspection of chest normal and palpation of chest normal Resp normal respiratory effort and clear to auscultation bilaterally Cardio regular rate and regular rhythm GI normal to inspection, nondistended, normoactive bowel sounds and non-tender Palpation: soft Extremity normal to inspection Neuro oriented x3 Sensorium / Orientation: alert Psych mental status grossly normal Skin no rashes or lesions noted MDM MDM MDM Narrative Medical decision making narrative: EKG, lab work, chest x-ray obtained. Lab Data Attestation: I reviewed the patient's lab results. Labs: Laboratory Results - last 24 hr 05/06/21 05/06/21 05/06/21 15:45 15:45 17:21 WBC 7.7 RBC 3.38 L Hgb 11.0 L Hct 33.8 L MCV 100.0 H MCH 32.5 H MCHC 32.5 RDW Std Deviation 50.3 H RDW Coeff of [place]verto 13.6 Plt Count 197 MPV 11.6 Immature Gran % (Auto) 0.500 Neut % (Auto) 78.9 H Lymph % (Auto) 11.7 L [place] % (Auto) 8.5 Eos % (Auto) 0.1 Baso % (Auto) 0.3 Absolute Neuts (auto) 6.1 Absolute Lymphs (auto) 0.90 Nucleated RBC % 0 Sodium Cancelled 136 Potassium Cancelled 4.6 Chloride Cancelled 103 Carbon Dioxide Cancelled 24.0 Anion Gap Cancelled 9 BUN Cancelled 65 H Creatinine Cancelled 3.59 H Estim Creat Clear Calc Cancelled 13.65 Est GFR (MDRD) Af Amer Cancelled 16 L Est GFR (MDRD) Non-Af Cancelled 13 L BUN/Creatinine Ratio Cancelled 18.1 Glucose Cancelled 104 Calcium Cancelled 9.4 Troponin I High Sens Cancelled 21 Radiography Chest X-Ray - ED: 1 View, Read by ED Physician and Chronic Changes Diagnostic Testing: Clinical Impression(s) from Imaging Studies Chest X-Ray 05/06/21 16:30 IMPRESSION: No airspace consolidation or pleural effusion. Electronically Signed: David Edmondson MD ([place]) at 16:44 EST , Service support , EKG Initial EKG: Attestation: I personally reviewed and interpreted this EKG as follows: Interpretation: Sinus Rhythm (Sinus 80 with no acute ischemia.) Treatment and Re-Evaluation Comments:: Patient's blood pressure in triage was listed at 170/95. When she is placed in a room blood pressure is reading 81/65. This is checked on both arms and is reading low. Patient states her blood pressure normally runs low. Yesterday at urgent care her blood pressure was 98/58 and in the ER was 80/69. Patient is currently on lisinopril and states she did take her dose this morning. Lab work is reviewed and largely unchanged from yesterday. Troponin remains negative at 21. Creatinine is 3.59. At this time we cannot obtain a CTA to rule out blood clot. This feels like her prior clot. I will start her on a heparin drip to treat her until a VQ scan can be obtained. I will speak with hospitalist regarding admission. She is currently receiving an IV fluid bolus for her blood pressure. Discharge Plan Triage Chief Complaint: Chest Pain ED Provider: Livier Whipple Dx/Rx/DC Orders Clinical Impression: Renal failure, Hypotension, Pleuritic chest pain Prescriptions: No Action sulfamethoxazole-trimethoprim 1 TABLET tablet 1 tab PO BID RF: 0 gemfibrozil 600 MG tablet 600 mg PO BID RF: 0 gabapentin 100 MG capsule 100 mg PO BIDCM Qty: 60 RF: 0 phentermine 37.5 mg tablet 37.5 mg DAILY RF: 0 lisinopril-hydrochlorothiazide 20-25 mg tablet 1 tab DAILY RF: 0 Primary Care Provider: Matthew Valdivia Referrals: Matthew Valdivia DO [Primary Care Provider] - Disposition Disposition: Acute Care Hospital [facility]
[2021-05-06] MEDS: 0.9% Normal Saline 1,000 ML 999 ML IV (18:59)
[2021-05-06] MEDS: HEPARIN/D5w 25,000 UNITS 25,000 UNITS/250 ML IV.SOLN. 12 UNITS IV (19:33)
[2021-05-06] MEDS: Heparin Injection (Vial) 5,000 UNIT/ML VIAL 6000 UNIT IV (19:39)
--- NOTE | 2021-05-06 19:56 | PCM.HP.STD ---
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 The pain radiates to her entire right side to his right chest and to his right neck. He woke up with the pain. She went up to an urgent care and also the emergent department a day before presentation. D-dimer was elevated. Patient signed out against medical advice and went home. She returns again because of the persistence of the pain. At rest the pain is 5 out of 10. The pain worsens with movement or taking a deep breath. With movement and deep breathing pain increases to 9 out of 10. She described the pain as sharp. She denies any nausea or vomiting. She report that initially she attributed the pain to lying on the right side when she slept but because the pain was not going away and because of shortness of breath she correlated her pain with a previous pulmonary embolism. [facility] Medical History Chronic back pain COPD (chronic obstructive pulmonary disease) History of pulmonary embolism HLD (hyperlipidemia) HTN (hypertension) Stroke/cerebrovascular accident Home Medications gemfibrozil 600 mg PO BID 03/03/19 [History Last Taken 05/06/21] sulfamethoxazole-trimethoprim 1 tab PO BID 03/03/19 [History Last Taken 05/06/21] gabapentin 600 mg PO TID 05/06/21 [History Last Taken 05/06/21] lisinopril-hydrochlorothiazide 1 tab DAILY 05/06/21 [History Last Taken 05/06/21] phentermine 37.5 mg PO DAILY 05/06/21 [History Last Taken 05/06/21] Allergy/AdvReac Type Severity Reaction Status Date / Time No Known Allergies Allergy Verified 05/06/21 15:27 Family History Other Heart disease Surgical History Previous back surgery Social History Smoking Status: Former smoker ROS ROS Narrative Constitutional: Denies fever, chills, fatigue, anorexia and change in weight Eyes: Denies blurry vision, change in eye color, change in vision, discharge from eye(s), double vision, erythema, eye pain, loss of vision or other HEENT: Denies abnormal hearing, dysphagia, ear pain, epistaxis, headache(s), hearing loss, nasal congestion, nasal discharge, post nasal drip, sinus pressure, sore throat or other Cardiovascular: Reports right-sided chest pain chest pain. Denies palpitations. Denies dyspnea on exertion, orthopnea and paroxysmal nocturnal dyspnea Respiratory/Chest: Reports shortness of breath. Denies cough, excessive phlegm production, or wheezing Gastrointestinal: Denies abdominal pain, coffee ground emesis, constipation, diarrhea, dyspepsia, hematemesis, hematochezia, loose stools, melena, nausea, vomiting or other Genitourinary: Denies burning urination, difficulty urinating, dysuria, hematuria, nocturia, urinary frequency, urinary hesitancy, urinary incontinence, urinary urgency or other Musculoskeletal: Reports right waist pain. Denies arthralgias, back pain, joint pain, joint stiffness, joint swelling, myalgias, neck pain or other Neurologic: Denies abnormal gait, abnormal speech, confusion, disequilibrium, dizziness, focal weakness, headache(s), numbness, paresthesias, seizure-like activity, seizures, syncope, tingling, tremor(s) or other Psychiatric: Denies anxiety, depression, homicidal ideation, suicidal ideation or other Endocrinology: Denies change in body appearance, cold intolerance, excessive sweating, heat intolerance, polydipsia, polyuria or other Hematologic/Lymphatic: Denies anemia, easy bleeding, easy bruising, lymphadenopathy or other Integumentary: Denies rashes Allergic/Immunologic: Denies rhinitis, hives, eczema, asthma or other Vital Signs Vital Signs Vital Signs: 05/06/21 15:25 05/06/21 18:34 05/06/21 18:35 Temperature 96.9 F L Temperature Source Temporal Pulse Rate 83 87 Respiratory Rate 18 20 H Respiratory Effort Respiratory Pattern Blood Pressure 170/95 H 81/65 L Blood Pressure Mean 120 70 Pulse Ox 93 95 Oxygen Delivery Method Room Air Room Air Room Air 05/06/21 19:00 Temperature Temperature Source Pulse Rate Respiratory Rate Respiratory Effort Normal Non-Labored Respiratory Pattern Normal Blood Pressure Blood Pressure Mean Pulse Ox Oxygen Delivery Method Weight Weight: 90.718 kg Body Mass Index (BMI) 32.3 Physical Exam Narrative Physical exam: General: Well-nourished, well-developed. Head: Normocephalic, atraumatic, no tenderness Eyes: PERRLA, EOMI ENT, no trauma, moist mucous membranes, no rhinorrhea Neck: Nontender, full range of motion, no spinal tenderness, deformities, step-off CVS: Regular rate and rhythm. S1-S2 present. No murmur, gallop or rub. Respiratory : clear to auscultation bilaterally, chest wall nontender, no wheezing Abdomen: Soft, nontender, nondistended, normal bowel sounds, no masses : Deferred Back: Nontender, no CVA tenderness, no midline spinal tenderness, deformities, step-offs Extremities: Decreased range of motion of left leg. Strength in left leg 1 out of 5. Full range of motion of right leg. Strength in the right leg and bilateral upper extremities 5 out of 5. Skin: Normal color, no trauma, abrasions Neuro: Alert, oriented, cranial nerves II through XII grossly intact. Psychiatry: Normal mood. Normal affect. Not depressed. Not anxious. Results Lab / Micro Data Result Diagrams: 05/06/21 15:45 05/06/21 17:21 Labs: Laboratory Results - last 24 hr 05/06/21 15:45: WBC 7.7, RBC 3.38 L, Hgb 11.0 L, Hct 33.8 L, MCV 100.0 H, MCH 32.5 H, MCHC 32.5, RDW Std Deviation 50.3 H, RDW Coeff of Alverto 13.6, Plt Count 197, MPV 11.6, Immature Gran % (Auto) 0.500, Neut % (Auto) 78.9 H, Lymph % (Auto) 11.7 L, Turner % (Auto) 8.5, Eos % (Auto) 0.1, Baso % (Auto) 0.3, Absolute Neuts (auto) 6.1, Absolute Lymphs (auto) 0.90, Nucleated RBC % 0 05/06/21 15:45: Sodium Cancelled, Potassium Cancelled, Chloride Cancelled, Carbon Dioxide Cancelled, Anion Gap Cancelled, BUN Cancelled, Creatinine Cancelled, Estim Creat Clear Calc Cancelled, Est GFR (MDRD) Af Amer Cancelled, Est GFR (MDRD) Non-Af Cancelled, BUN/Creatinine Ratio Cancelled, Glucose Cancelled, Calcium Cancelled, Troponin I High Sens Cancelled 05/06/21 17:21: Sodium 136, Potassium 4.6, Chloride 103, Carbon Dioxide 24.0, Anion Gap 9, BUN 65 H, Creatinine 3.59 H, Estim Creat Clear Calc 13.65, Est GFR (MDRD) Af Amer 16 L, Est GFR (MDRD) Non-Af 13 L, BUN/Creatinine Ratio 18.1, Glucose 104, Calcium 9.4, Troponin I High Sens 21 Radiology Impression Chest X-Ray 05/06/21 16:30 IMPRESSION: No airspace consolidation or pleural effusion. Electronically Signed: David Edmondson MD (Brooks) at 16:44 EST , Service support , Assessment & Plan Assessment/Plan (1) Hypotension: QUALIFIERS: Hypotension type: unspecified hypotension type Qualified Code(s): I95.9 - Hypotension, unspecified (2) Renal failure: QUALIFIERS: Acute renal failure type: unspecified Renal failure chronicity: acute Qualified Code(s): N17.9 - Acute kidney failure, unspecified PLAN: Hypotension Etiology unclear. Hold home blood pressure medication. Review of records shows that patient has history of orthostatic hypotension from polypharmacy (from discharge summary of Dr. Leon 03/09/2019; discharge summary of Dr. Laura Sol 03/07/2019) Admit to intensive care unit as pulmonary emboli is on the differential. Trend blood pressures. Elevated D-dimer Review of records shows that D-dimer on 05/05/2021 was 3.42. GFR is 13.65 and unable to obtain a CTPA at this time. Was empirically started on heparin drip at emergency department and continued. However when patient got to the intensive care unit she reported that she has a history of brain bleed 5 to 6 years ago. Will stop heparin drip at this time. Will get ultrasound of bilateral legs and VQ scan. If positive for DVT or PE consider IVC filter. Emergent department doctor discussed the case with manager aviation. Will admit to the intensive care unit and will consult manager aviation. Acute Renal failure Stop home Bactrim. Creatinine on presentation was 3.5 now. Review of records show that had creatinine on 05/05/2021 was 3.21. Previous records in hospital system ([facility]) shows creatinine anywhere from 0.69-0.96 in 2019. Review of [facility] records did not show any earlier BMP. Received normal saline bolus at emergency department and continued. Urine electrolytes ordered. History of osteomyelitis Reportedly she takes Bactrim for infection of her back. Stop Bactrim in the setting of acute renal failure. Reportedly she been taking Bactrim since 2005. No sensitivities to start different antibiotics. DVT Prophylaxis Contraindicated at this time since patient may be having PE but reports history of brain bleed. Charges/Coding Visit Charges Inpatient E&M: 48933 Init Hosp L3
[2021-05-06 20:04] LABS: International Normalized Ratio 1.4; Prothrombin Time (Protime)PT. 16.8 SECONDS (11.7-14.9)
--- NOTE | 2021-05-06 21:23 | NM_ITS ---
CLINICAL: 70-year-old female with history of chest pain. VENTILATION-PERFUSION LUNG SCINTIGRAPHY COMPARISON: Plain film chest radiograph report 05/06/2021 FINDINGS: The patient was administered 45.2 mCi 99m Tc DTPA aerosol. The aerosol ventilation study demonstrates heterogeneous ventilation in the bilateral lung alas without corresponding radiographic changes visualized on review of plain film chest x-ray dated 05/06/2021. Central clumping of the aerosol is identified in the bilateral hemithorax. Following the intravenous administration of 5.3 mCi of 99m Tc MAA, the pulmonary perfusion study reveals matching non-uniform perfusion in the right and left lungs correlating with the previously defined ventilation pattern. No moderate subsegmental or large segmental ventilation-perfusion mismatches are noted. There are regions of retained normal perfusion visualized. NM/Lung Scan Vent/Perf IMPRESSION: 1. VERY LOW PROBABILITY FOR PULMONARY EMBOLUS (<10%) 99m Tc DTPA aerosol ventilation / 99m Tc MAA pulmonary perfusion imaging examination, according to PIOPED II interpretive criteria with regard given to the presence of > 2 ventilation-perfusion matches without corresponding radiographic changes. (Sotsman et al, Radiology 246: 941, 2008 Soelvia et al, J Nucl Med 49: 1741, 2008). 2. Central clumping of the aerosol may be secondary to obstructive airway mechanics and or clinical tachypnea. Electronically Signed: Ismael Nolasco DO at 13:51 EST Tel , Service support ,
--- NOTE | 2021-05-06 21:45 | VDLE_ITS ---
Reason For Study: Elevated D-dimer RIGHT LEFT GSV is normal. CFV is compressible, spontaneous, phasic, CFV is compressible, spontaneous, phasic, competent, and demonstrates normal competent and demonstrates normal augmentation. augmentation. FV prox-mid is compressible. FV is compressible, spontaneous, phasic, Acute deep vein thrombosis is noted in the competent and demonstrates normal left FV distal, PopV, T/P Trunk, GastrocV, augmentation. PTV, PeronealV, and SoleusV. POP V is compressible, spontaneous, phasic, competent and demonstrates normal augmentation. T/P Trunk is compressible. PTV is compressible. RT PerV is compressible. Procedure This is a venous duplex using B-mode, color flow and spectral Doppler. Exam performed portable in ED. A preliminary report was called and/or faxed to [facility]. VL/Venous Duplex US - Yonny Extrem Interpretation Summary There is no evidence of right lower extremity deep vein thrombosis. Right great saphenous vein appears patent and compressible segmentally. Acute deep venous thrombosis left femoral, popliteal, tibioperoneal trunk, gastrocnemius, posterior tibial, peroneal, and soleus vein s Patent and compressible left great saphenous vein Ordering Physician: Quinn South Referring Physician: Matthew Valdivia Performed By: Cheryl Moss RVT
[2021-05-06] MEDS: Gabapentin 100 MG Capsule PO (22:00)
[2021-05-06] MEDS: MELATONIN 3 MG TABLET PO (22:01)
[2021-05-06] MEDS: 0.9% Normal Saline 1,000 ML 75 ML IV (22:01)
[2021-05-06 22:29] LABS: Troponin-I HS 21 pg/mL (3.0-54.0)
[2021-05-07] VITALS (22 sets, daily range): BP systolic 72–109; BP diastolic 42–70; PULSE 50–81; RESP 12–21; TEMP 36.3–36.7; O2SAT 92–100
[2021-05-07 00:06] LABS: Troponin-I HS 22 pg/mL (3.0-54.0)
[2021-05-07] MEDS: 0.9% Normal Saline 1,000 ML 500 ML IV (03:15)
[2021-05-07 04:05] LABS: Urea Nitrogen, Urine 476 mg/dL (NO RANGE EST.); Urine Sodium 64 mmol/L (Not Establ.)
[2021-05-07 04:21] LABS: Osmolality, Urine 382 mOsm/KG
[2021-05-07 05:37] LABS: Absolute Lymphocyte Count 0.74 X10^3/uL (0.83-4.51); Absolute Neutrophil Count 3.8 X10^3/uL (2.0-7.7); Basophil# 0.01 X10^3/uL; Basophil% 0.2 % (0-1); Eosinophil# 0.02 X10^3/uL; Eosinophils% 0.4 % (0-5); Hematocrit 29.8 % (37-47); Hemoglobin 9.5 g/dL (12.0-15.0); Lymphocyte # 0.74 X10^3/ul (0.83-4.51); Lymphocyte % 14.7 % (19-41); Mean Corp Hgb Conc 31.9 g/dL (32-36); Mean Corpuscular Hgb 32.4 pg (27.0-32.0); Mean Corpuscular Volume 101.7 fL (81-99); Mean Platelet Vol. 9.8 fl (6.2-12.0); NRBC Flagged by Analyzer 0 % (0-5); Neutrophil # 3.83 X10^3/uL (2.7-7.7); Neutrophil % 76.1 % (47-70); Platelet Count 148 K/mm3 (150-450); RBC Distribution Width CV 13.1 % (11.6-14.6); RBC Distribution Width SD 49.1 fl (35.1-43.9); Red Blood Count 2.93 M/mm3 (4.2-5.4)
[2021-05-07 05:54] LABS: Anion Gap 8 (5-15); BUN 54 mg/dL (7-18); BUN/Creat Ratio 19.7 RATIO (10-20); Calcium,Total 8.5 mg/dL (8.5-10.1); Chloride 110 mmol/L (98-107); Creatinine, Serum 2.74 mg/dL (0.55-1.02); EST Glomerular Filtration Rate 18 mL/min (>60); Est Glom Filt Rate - Afr Amer 22 mL/min (>60); Estimated Creatinine Clearance 17.88 ml/min; Glucose 94 mg/dL (74-106); Potassium 4.2 mmol/L (3.5-5.1); Sodium Level 140 mmol/L (136-145)
--- NOTE | 2021-05-07 05:55 | ECHOCS_ITS ---
Reason For Study: Hypotension Procedure This was a 2D Doppler, Color Flow transthoracic echocardiogram. The study was technically difficult. Contrast injection was performed. Exam performed portable in ICU/CCU. Left Ventricle Normal LV size. Left ventricular systolic function is normal. The estimated ejection fraction is 60 %. Stage 1 diastolic dysfunction. No regional wall motion abnormalities noted. Right Ventricle Normal RV size. Normal systolic function. Atria Normal left atrium. Normal right atrium. Mitral Valve Normal mitral valve. Tricuspid Valve The tricuspid valve is not well visualized. Aortic Valve The aortic valve is not well visualized. Pulmonic Valve The pulmonic valve is not well visualized. Great Vessels Normal aortic root. The pulmonary artery is normal size. Normal inferior vena cava. Pericardium/Pleural No pericardial effusion. Medication Diluted definity 3ml given slow IV push to enhance endocardial definition. MMode/2D Measurements & Calculations LAV(MOD-bp): 52.3 ml LA A4 area: 18.0 cm2 RA A4 area: 16.4 cm2 LAV(MOD-bp) Indexed: 24.9 ml/m2 LAV(MOD-sp2): 59.8 ml LAV(MOD-sp4): 44.7 ml Time Measurements MV dec time: 0.25 sec Doppler Measurements & Calculations MV E max mikal: 68.3 cm/sec Lat Peak E' Mikal: 7.5 cm/sec Med Peak E' Mikal: 6.6 cm/sec MV A max mikal: 97.9 cm/sec E/E' lat: 9.1 E/E' med: 10.4 MV E/A: 0.70 MV V2 max: 126.1 cm/sec MV P1/2t max mikal: 92.9 cm/sec Ao V2 max: 153.6 cm/sec MV max P.4 mmHg MV P1/2t: 63.6 msec Ao max P.4 mmHg MV V2 mean: 68.2 cm/sec MV dec slope: 427.8 cm/sec2 MV mean P.2 mmHg MV V2 VTI: 31.0 cm MVA(P1/2t): 3.5 cm2 LV V1 max: 129.6 cm/sec PA V2 max: 98.4 cm/sec LV V1 max P.7 mmHg ECHO/Echo Complete W/ Contrast Interpretation Summary Normal LV size. Left ventricular systolic function is normal. The estimated ejection fraction is 60 %. Stage 1 diastolic dysfunction. Contrast injection was performed. Ordering Physician: Quinn South Referring Physician: Matthew Valdivia Performed By: Eladio Ho RCS
[2021-05-07] MEDS: Gabapentin 100 MG Capsule PO ×3 (06:20→21:06)
--- NOTE | 2021-05-07 07:36 | US_ITS ---
STUDY: RENAL ULTRASOUND - COMPLETE REASON FOR EXAM: Female, 70 years old. Right flank pain TECHNIQUE: Ultrasound evaluation of the kidneys was performed with real-time and static fall-scale imaging. COMPARISON: None. FINDINGS: RIGHT KIDNEY: Normal location of the right kidney, which is normal in size. The right kidney measures 11.6 cm x 6.2 cm x 5.7 cm. There is diffuse thinning of the renal cortex. The renal cortex measures 0.8 cm. There are 2 renal cysts. The larger measures 1.2 cm x 1.1 cm x 1.1 cm. There are no right renal calculi. There is no right hydronephrosis. DISTAL RIGHT URETER: There is non-visualization of the distal right ureter. There is no demonstrated right ureterovesical junction calculus. There is no demonstrated right ureteral jet. LEFT KIDNEY: Normal location of the left kidney, which is normal in size. The left kidney measures 12.1 cm x 6.4 cm x 5.9 cm. There is diffuse thinning of the renal cortex. The renal cortex measures 0.7 cm. 2 left renal cysts are seen. The larger measures 1.6 cm x 1.6 cm x 1.6 cm. There are no left renal calculi. There is no left hydronephrosis. DISTAL LEFT URETER: There is non-visualization of the distal left ureter. There is no demonstrated left ureterovesical junction calculus. There is no demonstrated left ureteral jet. BLADDER: The distended urinary bladder has a volume of 465 ml. There is a normal wall thickness of the distended urinary bladder. There is no demonstrated mass within the urinary bladder. There is diffuse bladder wall thickening. US/Kidney and Bladder IMPRESSION: Mild degree of the renal cortical thinning. Bilateral renal cysts. Diffuse urinary bladder wall thickening. Electronically Signed: Óscar Leyva MD at 15:12 EST , Service support ,
--- NOTE | 2021-05-07 08:13 | EX.PCM.CONCC ---
Assessment & Plan Assessment/Plan (1) Renal failure: QUALIFIERS: Renal failure chronicity: acute Acute renal failure type: unspecified Qualified Code(s): N17.9 - Acute kidney failure, unspecified (2) Hypotension: QUALIFIERS: Hypotension type: unspecified hypotension type Qualified Code(s): I95.9 - Hypotension, unspecified (3) Polypharmacy: PLAN: RECOMMENDATIONS: 1. Continue work-up for DVT/PE as ordered 2. Hold on systemic anticoagulation for now 3. Obtain renal ultrasound 4. Continue to bolus with IV fluids for hypotension 5. Encourage incentive spirometer and out of bed as tolerated 6. Hold baseline NEGAR inhibitor IMPRESSIONS: 1. Acute kidney injury Unclear onset. Patient does have labs from 2019 showing relatively normal renal function with a creatinine around 1. Patient is reporting good output without hematuria, but appears to have right flank pain. Will obtain an ultrasound for evaluation of hydronephrosis. NEGAR inhibitor will be held. Patient will continue to have aggressive fluid resuscitation as this appears to be improving her overall condition. Bactrim should also be held. No indication for renal replacement therapy at this time. 2. Hypoxia Unclear etiology. Differential diagnosis would include pulmonary embolism, atelectasis, evolving pneumonia or chronic respiratory failure secondary to COPD. Patient should have a PFT at some point. Chest x-ray is not very suggestive of an acute infectious etiology. Patient does have extensive hardware with bony abnormalities. Given history of cerebral bleed, would hold off on empiric anticoagulation at this time as patient is not tachycardic or significantly hypoxic. Agree with work-up with a V/Q and lower extremity Dopplers. 3. Advanced age/history of osteomyelitis/chronic pain syndrome/kyphoscoliosis/delayed presentation Complicates care, management, recovery and prognosis. Monitor for retention of opiates secondary to renal dysfunction. Low clinical suspicion for active osteomyelitis given lack of leukocytosis, fever or other constitutional symptoms. HPI Consult Data Date of Consult: 05/07/21 HPI Narrative HPI Narrative: DESIRE CHAUDHRY is a 70 F, with past medical history listed below, who presents to [facility] on 05/06/2021 secondary to right-sided chest pain and associated shortness of breath. Patient reportedly had woken up 2 days prior with symptomatology. Patient had thought that she had just slept funny overnight. Over time, patient developed worsening shortness of breath and pleuritic chest pain. Patient does have a history of PE and thought this felt similar. Patient went to an urgent care and then was sent to an emergency room. Patient was told that her creatinine was over 3, so she did not undergo a CTA. Patient signed out AMA, but returned last evening for an evaluation after discussing with her family. Patient is not aware of any previous renal dysfunction. On presentation to the ER, patient was initially hypertensive at 170/95, but then became hypotensive at 81/65. Patient was saturating well on room air initially. Laboratory work-up showed a white blood cell count of 7.7, hemoglobin of 11 and platelets of 197. Chemistry showed a potassium of 4.6, BUN of 65 and a creatinine of 3.59. Chest x-ray showed extensive spinal hardware without infiltrates. Given concern for PE, patient was initiated on a heparin drip. Patient also received a fluid bolus with improvement in blood pressure, so no pressors were required. After presentation to the intensive care unit, patient's blood pressure has been relatively stable overnight. Heparin drip was discontinued as patient reported that she did have a history of a brain bleed after being admitted to the hospital. Patient overall feels subjectively unchanged compared to previous on my evaluation this morning. Patient does report a history of a [id number] smoking history and presumed COPD. This has not been confirmed. Patient does have chronic back pain, but states this feels different. Patient states that the pain is localized more to her right flank and she feels she needs oxygen because I cannot take a deep breath. Patient does not report a history of alcohol or drug use. Patient has no history of TB or asbestos exposure. Patient reports that she is an avid drinker of water and pees frequently. Patient has not reported any hematuria. Patient denies any history of renal stones. Review of systems otherwise negative from a constitutional, HEENT, respiratory, cardiovascular, GI, genitourinary, musculoskeletal, skin, neurologic, psychiatric and hematologic system unless stated above. [facility] Medical History Chronic back pain COPD (chronic obstructive pulmonary disease) History of pulmonary embolism HLD (hyperlipidemia) HTN (hypertension) Stroke/cerebrovascular accident Home Medications gemfibrozil 600 mg PO BID 03/03/19 [History Last Taken 05/06/21] sulfamethoxazole-trimethoprim 1 tab PO BID 03/03/19 [History Last Taken 05/06/21] gabapentin 600 mg PO TID 05/06/21 [History Last Taken 05/06/21] lisinopril-hydrochlorothiazide 1 tab DAILY 05/06/21 [History Last Taken 05/06/21] phentermine 37.5 mg PO DAILY 05/06/21 [History Last Taken 05/06/21] Allergy/AdvReac Type Severity Reaction Status Date / Time No Known Allergies Allergy Verified 05/06/21 15:27 Family History Other Heart disease Surgical History Previous back surgery Social History Smoking Status: Former smoker ROS ROS Narrative See HPI Physical Exam Const alert, oriented x3 and no apparent distress General Appearance: cooperative and well developed HEENT normocephalic, head/scalp atraumatic and moist oral mucous membranes Eyes PERRL and EOMs intact bilaterally Neck full ROM and no lymphadenopathy Chest Chest: abnormal inspection of the chest kyphotic, scoliotic and increased A-P diameter; Negative for crepitus Resp normal respiratory effort and no use of accessory muscles Effort and Inspection: able to speak in complete sentences Auscultation: rales bilateral base and diminished lung sounds; Negative for rhonchi or wheezes Percussion: Negative for dullness Cardio regular rate, regular rhythm, S1 normal heart sound, S2 normal heart sound, no murmurs, no rub and no gallops GI normal to inspection, nondistended, normoactive bowel sounds no CVA tenderness Extremity no clubbing, cyanosis or edema Skin no rashes or lesions noted Neuro oriented x3, CN's II-XII intact bilaterally, moves all extremities and no focal motor deficits Psych cooperative and affect normal Lab / Micro Data Result Diagrams: 05/07/21 05:30 05/07/21 05:30 Labs: Laboratory Results - last 24 hr 05/06/21 15:45: WBC 7.7, RBC 3.38 L, Hgb 11.0 L, Hct 33.8 L, MCV 100.0 H, MCH 32.5 H, MCHC 32.5, RDW Std Deviation 50.3 H, RDW Coeff of Alverto 13.6, Plt Count 197, MPV 11.6, Immature Gran % (Auto) 0.500, Neut % (Auto) 78.9 H, Lymph % (Auto) 11.7 L, Tripp % (Auto) 8.5, Eos % (Auto) 0.1, Baso % (Auto) 0.3, Absolute Neuts (auto) 6.1, Absolute Lymphs (auto) 0.90, Nucleated RBC % 0 05/06/21 15:45: Sodium Cancelled, Potassium Cancelled, Chloride Cancelled, Carbon Dioxide Cancelled, Anion Gap Cancelled, BUN Cancelled, Creatinine Cancelled, Estim Creat Clear Calc Cancelled, Est GFR (MDRD) Af Amer Cancelled, Est GFR (MDRD) Non-Af Cancelled, BUN/Creatinine Ratio Cancelled, Glucose Cancelled, Calcium Cancelled, Troponin I High Sens Cancelled 05/06/21 17:21: Sodium 136, Potassium 4.6, Chloride 103, Carbon Dioxide 24.0, Anion Gap 9, BUN 65 H, Creatinine 3.59 H, Estim Creat Clear Calc 13.65, Est GFR (MDRD) Af Amer 16 L, Est GFR (MDRD) Non-Af 13 L, BUN/Creatinine Ratio 18.1, Glucose 104, Calcium 9.4, Troponin I High Sens 05/06/21 19:15: PT 16.8 H, INR 1.4, APTT 40.0 H 05/06/21 21:50: Troponin I High Sens 05/06/21 23:35: Troponin I High Sens 05/07/21 03:48: Urine Osmolality 382, Ur Random Sodium 64, Urine Creatinine 51.40, Urine Urea Nitrogen 476 05/07/21 05:30: WBC 5.0, RBC 2.93 L, Hgb 9.5 L, Hct 29.8 L, MCV 101.7 H, MCH 32.4 H, MCHC 31.9 L, RDW Std Deviation 49.1 H, RDW Coeff of Alverto 13.1, Plt Count 148 L, MPV 9.8, Immature Gran % (Auto) 0.600, Neut % (Auto) 76.1 H, Lymph % (Auto) 14.7 L, Tripp % (Auto) 8.0, Eos % (Auto) 0.4, Baso % (Auto) 0.2, Absolute Neuts (auto) 3.8, Absolute Lymphs (auto) 0.74 L, Nucleated RBC % 0 05/07/21 05:30: Sodium 140, Potassium 4.2, Chloride 110 H, Carbon Dioxide 22.0, Anion Gap 8, BUN 54 H, Creatinine 2.74 H, Estim Creat Clear Calc 17.88, Est GFR (MDRD) Af Amer 22 L, Est GFR (MDRD) Non-Af 18 L, BUN/Creatinine Ratio 19.7, Glucose 94, Calcium 8.5 Radiology Impression Chest X-Ray 05/06/21 16:30 IMPRESSION: No airspace consolidation or pleural effusion. Electronically Signed: David Edmondson MD (Brooks) at 16:44 EST , Service support , Charges/Coding Visit Charges Inpatient E&M: 24867 Init Hosp L3
[2021-05-07] MEDS: Lactated Ringers 1,000 ML 999 ML IV (08:20)
[2021-05-07 10:22] LABS: Bacteria 0 SEEN /hpf (None Seen); Mucous, Urine 0 SEEN /hpf (<or=2+); Squamous Epithelial Cells - UA 0 SEEN /hpf (5-10); White Blood Cells 0 SEEN /hpf (0-5)
[2021-05-07 10:36] LABS: Color, Urine Yellow (Yellow); Glucose, Dipstick Normal (Normal); Ketone-Dipstick Negative (Negative); Leukocyte Esterase-Dipstick Negative /ul (Negative); Nitrite-Dipstick Negative (Negative); Occult Blood-Urine 10 /ul (Negative); Protein-Dipstick 30 mg/dl (Negative); Specific Gravity, Urine 1.015 (1.002-1.030); Urine Bilirubin Dipstick Negative (Negative); Urine Clarity Clear (Clear); Urine Urobilinogen 1 mg/dl (Normal)
--- NOTE | 2021-05-07 10:40 | CASEMGMT ---
KENYA PECK Face to Face with patient for initial transition planning/care coordination assessment. RN CM introduced self and role at [facility]. Patient lying in bed, alert and oriented. Patient willing to participate in assessment and is able to answer all questions appropriately. Care providers, pharmacy, and demographics verified. Patient wishes to discharge home, denies need for home health at this time. Patient states she has no further needs or concerns at this time. CM to follow for discharge planning needs that may arise. PCP: Shea Specialists: none Preferred Pharmacy: [facility] at discharge Insurance: Nevaeh HAMM Prescription Benefit: yes Living Will/HPOA: yes, David Blount LNOK: , niece Living Arrangements: Patient lives with at [facility] independent living in a 2 floor apt with elevator. Patient states she is independent at home Transportation: Niece/ DME/HHC: Patient states she has shower chair, raised toilet, grab bars, cane, walker, wheelchair, and medical alert at home. Patient states she has had [facility] HHC in the past. Disposition Plan: Patient to discharge home with family support and follow-up plans in place. Cheryl ROGERS, RN, CM
[2021-05-07 10:45] LABS: Red Blood Cells-Urine 0-5 SEEN /hpf (0-5)
[2021-05-07] MEDS: 0.9% Normal Saline 1,000 ML 75 ML IV ×2 (10:45→23:55)
--- NOTE | 2021-05-07 12:03 | PN.HOSP_ITS ---
Subjective Subjective Follow-up on hypotension: Patient was seen and examined. Remains relatively hypotensive. Received fluid boluses this morning. VQ scan is negative for acute PE. The echo shows EF of 50%, stage I diastolic dysfunction. Objective Data Objective Data Vital Signs: Vital Signs Temp Pulse Resp BP Pulse Ox 97.4 F L 77 16 97/58 L 97 05/07/21 08:00 05/07/21 11:00 05/07/21 11:00 05/07/21 11:00 05/07/21 11:00 Oxygen Flow Rate (L/min) 2 Oxygen Delivery Method Nasal Cannula Weight: 101.3 kg Body Mass Index (BMI) 36.1 Intake & Output: Intake and Output for Last 24 Hours 05/05/21 05/06/21 05/07/21 23:59 23:59 23:59 Intake Total 1029.4 / 1149.4 3175 / 3175 Balance 1029.4 / 1149.4 3175 / 3175 Lab / Micro Data Result Diagrams: 05/07/21 05:30 05/07/21 05:30 Labs: Laboratory Results - last 24 hr 05/06/21 15:45: WBC 7.7, RBC 3.38 L, Hgb 11.0 L, Hct 33.8 L, MCV 100.0 H, MCH 32.5 H, MCHC 32.5, RDW Std Deviation 50.3 H, RDW Coeff of Alverto 13.6, Plt Count 197, MPV 11.6, Immature Gran % (Auto) 0.500, Neut % (Auto) 78.9 H, Lymph % (Auto) 11.7 L, [place] % (Auto) 8.5, Eos % (Auto) 0.1, Baso % (Auto) 0.3, Absolute Neuts (auto) 6.1, Absolute Lymphs (auto) 0.90, Nucleated RBC % 0 05/06/21 15:45: Sodium Cancelled, Potassium Cancelled, Chloride Cancelled, Carbon Dioxide Cancelled, Anion Gap Cancelled, BUN Cancelled, Creatinine Cancelled, Estim Creat Clear Calc Cancelled, Est GFR (MDRD) Af Amer Cancelled, Est GFR (MDRD) Non-Af Cancelled, BUN/Creatinine Ratio Cancelled, Glucose Cancelled, Calcium Cancelled, Troponin I High Sens Cancelled 05/06/21 17:21: Sodium 136, Potassium 4.6, Chloride 103, Carbon Dioxide 24.0, Anion Gap 9, BUN 65 H, Creatinine 3.59 H, Estim Creat Clear Calc 13.65, Est GFR (MDRD) Af Amer 16 L, Est GFR (MDRD) Non-Af 13 L, BUN/Creatinine Ratio 18.1, Glucose 104, Calcium 9.4, Troponin I High Sens 21 05/06/21 19:15: PT 16.8 H, INR 1.4, APTT 40.0 H 05/06/21 21:50: Troponin I High Sens 21 05/06/21 23:35: Troponin I High Sens 22 05/07/21 03:48: Urine Osmolality 382, Ur Random Sodium 64, Urine Creatinine 51.40, Urine Urea Nitrogen 476 05/07/21 05:30: WBC 5.0, RBC 2.93 L, Hgb 9.5 L, Hct 29.8 L, MCV 101.7 H, MCH 32.4 H, MCHC 31.9 L, RDW Std Deviation 49.1 H, RDW Coeff of Alverto 13.1, Plt Count 148 L, MPV 9.8, Immature Gran % (Auto) 0.600, Neut % (Auto) 76.1 H, Lymph % (Auto) 14.7 L, [place] % (Auto) 8.0, Eos % (Auto) 0.4, Baso % (Auto) 0.2, Absolute Neuts (auto) 3.8, Absolute Lymphs (auto) 0.74 L, Nucleated RBC % 0 05/07/21 05:30: Sodium 140, Potassium 4.2, Chloride 110 H, Carbon Dioxide 22.0, Anion Gap 8, BUN 54 H, Creatinine 2.74 H, Estim Creat Clear Calc 17.88, Est GFR (MDRD) Af Amer 22 L, Est GFR (MDRD) Non-Af 18 L, BUN/Creatinine Ratio 19.7, Glucose 94, Calcium 8.5 05/07/21 10:15: Urine Color Yellow, Urine Clarity Clear, Urine pH 6.0, Ur Specific [place] 1.015, Urine Protein 30 H, Urine Glucose (UA) Normal, Urine Ketones Negative, Urine Occult Blood 10 H, Urine Nitrite Negative, Urine Bilirubin Negative, Urine Urobilinogen 1 H, Ur Leukocyte Esterase Negative, Urine RBC 0-5 SEEN, Urine WBC 0 SEEN, Ur Squamous Epith Cells 0 SEEN, Urine Bacteria 0 SEEN, Urine Mucus 0 SEEN Radiography Diagnostic Testing: Radiology Impression Chest X-Ray 05/06/21 16:30 IMPRESSION: No airspace consolidation or pleural effusion. Electronically Signed: David Edmondson MD (Brooks) at 16:44 EST , Service support , Physical Exam Narrative Physical exam: General: Alert, Oriented x3, Cooperative, obese, in pain, on 2 L of oxygen HEENT: Atraumatic Oral: Moist Mucosa Neck: Supple Lungs: Diminished to auscultation Cardiovascular: HS I+II, regular, no murmurs Abdomen: Bowel Sounds Present, Soft, Non Tender Extremities: No edema Assessment & Plan Assessment/Plan (1) Hypotension: QUALIFIERS: Hypotension type: unspecified hypotension type Qu alified Code(s): I95.9 - Hypotension, unspecified (2) Generalized weakness: (3) Flank pain: PLAN: 1. Hypotension, unclear etiology, patient's blood pressure remains tenuous Continue on IV fluid 2. Concern for possible acute PE, acute PE ruled out with negative VQ scan 3. Acute Flank pain, possible renal stone Renal ultrasound pending Continue pain meds 4. Rest of her chronic medical conditions including chronic back pain, COPD, PE, hypertension, hyperlipidemia remained stable Continue to hold lisinopril hydrochlorothiazide Charges/Coding Visit Charges Inpatient E&M: 03612 Subs Hosp L2
[2021-05-07] MEDS: fentaNYL 100 MCG/2 ML Ampul 50 MCG IV (13:11)
[2021-05-07] MEDS: Enoxaparin 100 MG/ML Syringe SC (17:52)
[2021-05-07] MEDS: MELATONIN 3 MG TABLET PO (21:09)
[2021-05-07] MEDS: 0.9% Saline Lock 10 ML Syringe IV (21:09)
[2021-05-07] MEDS: Acetaminophen 325 MG Tablet 650 MG PO (21:09)
[2021-05-08] VITALS (15 sets, daily range): BP systolic 82–114; BP diastolic 57–72; PULSE 65–91; RESP 17–22; TEMP 36.3–37.1; O2SAT 83–96
[2021-05-08 03:37] LABS: ALB/GLOB Ratio 0.6 RATIO (0.9-2.4); AST(SGOT) 15 U/L (15-37); Alanine Aminotransfer ALT/SGPT 15 U/L (13-56); Albumin, Serum 2.4 g/dL (3.2-5.0); Alkaline Phosphatase 43 U/L (45-117); Anion Gap 7 (5-15); BUN 35 mg/dL (7-18); BUN/Creat Ratio 19.7 RATIO (10-20); Calcium,Total 8.7 mg/dL (8.5-10.1); Chloride 113 mmol/L (98-107); Creatinine, Serum 1.78 mg/dL (0.55-1.02); EST Glomerular Filtration Rate 30 mL/min (>60); Est Glom Filt Rate - Afr Amer 36 mL/min (>60); Estimated Creatinine Clearance 27.53 ml/min; Globulin 4.2 g/dL (2.2-4.2); Glucose 99 mg/dL (74-106); Potassium 4.1 mmol/L (3.5-5.1); Protein, Total 6.6 g/dL (6.4-8.2); Sodium Level 142 mmol/L (136-145)
[2021-05-08 03:41] LABS: Absolute Lymphocyte Count 0.74 X10^3/uL (0.83-4.51); Absolute Neutrophil Count 2.6 X10^3/uL (2.0-7.7); Basophil# 0.01 X10^3/uL; Basophil% 0.3 % (0-1); Eosinophil# 0.04 X10^3/uL; Eosinophils% 1.1 % (0-5); Hematocrit 29.9 % (37-47); Hemoglobin 9.6 g/dL (12.0-15.0); Lymphocyte # 0.74 X10^3/ul (0.83-4.51); Lymphocyte % 19.6 % (19-41); Mean Corp Hgb Conc 32.1 g/dL (32-36); Mean Corpuscular Hgb 32.2 pg (27.0-32.0); Mean Corpuscular Volume 100.3 fL (81-99); Mean Platelet Vol. 9.9 fl (6.2-12.0); Monocyte# 0.38 X10^3/uL; Monocyte% 10.1 % (0-10); NRBC Flagged by Analyzer 0 % (0-5); Neutrophil # 2.58 X10^3/uL (2.7-7.7); Neutrophil % 68.4 % (47-70); Platelet Count 163 K/mm3 (150-450); RBC Distribution Width CV 13.2 % (11.6-14.6); RBC Distribution Width SD 48.3 fl (35.1-43.9); Red Blood Count 2.98 M/mm3 (4.2-5.4); White Blood Count 3.8 K/mm3 (4.4-11.0)
[2021-05-08] MEDS: Gabapentin 100 MG Capsule PO ×3 (04:38→21:00)
[2021-05-08] MEDS: 0.9% Saline Lock 10 ML Syringe IV (04:38)
--- NOTE | 2021-05-08 07:43 | PN.CC_ITS ---
Assessment & Plan Assessment/Plan (1) Renal failure: QUALIFIERS: Renal failure chronicity: acute Acute renal failure type: unspecified Qualified Code(s): N17.9 - Acute kidney failure, unspecified (2) Hypotension: QUALIFIERS: Hypotension type: unspecified hypotension type Qualified Code(s): I95.9 - Hypotension, unspecified (3) Polypharmacy: PLAN: RECOMMENDATIONS: 1. Possibly transition to a 10 a inhibitor for 3 months of total therapy 2. Increase activity as tolerated 3. Possible Florinef candidate. Check orthostatics 4. Continue to hold NEGAR inhibitor 5. Encourage incentive spirometer and out of bed as tolerated 6. Okay to leave the intensive care unit from my perspective 7. If remains hemodynamically stable through the day, will likely sign off from a critical care perspective IMPRESSIONS: 1. Acute kidney injury Slowly improving. Unclear onset. Patient does have labs from 2019 showing relatively normal renal function with a creatinine around 1. Patient is reporting good output without hematuria, but appears to have right flank pain. Will obtain an ultrasound for evaluation of hydronephrosis. NEGAR inhibitor will be held. Patient will continue to have aggressive fluid resuscitation as this appears to be improving her overall condition. Bactrim should also be held. No indication for renal replacement therapy at this time. Renal ultrasound was not suggestive of an occlusive kidney stone and UA did not have red blood cells. 2. Acute hypoxic respiratory insufficiency secondary to subsegmental PE/DVT Unclear etiology. Differential diagnosis would include pulmonary embolism, atelectasis, evolving pneumonia or chronic respiratory failure secondary to COPD. VQ was suggestive of very low probability of PE. However, given the findings of DVT, hypoxia and improvement of pain with anticoagulation, I believe patient likely had a small PE on presentation that was below the resolution of the VQ scan. Patient does have a history of cerebral bleed and previous DVT PE. Patient will need 3 months of anticoagulation, but ultimately will have to choose which is a greater risk before proceeding with lifelong anticoagulation 3. Advanced age/history of osteomyelitis/chronic pain syndrome/kyphoscoliosis/delayed presentation Complicates care, management, recovery and prognosis. Monitor for retention of opiates secondary to renal dysfunction. Low clinical suspicion for active osteomyelitis given lack of leukocytosis, fever or other constitutional symptoms. Subjective Subjective Patient did okay overnight. Patient subjectively feels much improved compared to previous. Patient's blood pressures have remained stable, but on the lower side overnight. Patient did receive some fluid boluses yesterday. Patient tolerating room air when awake. Objective Data Objective Data Vital Signs: Vital Signs Temp Pulse Resp BP Pulse Ox 36.6 C 78 17 82/58 L 93 05/08/21 05:00 05/08/21 06:59 05/08/21 05:00 05/08/21 05:00 05/08/21 05:00 Oxygen Flow Rate (L/min) 2 Oxygen Delivery Method Nasal Cannula Weight: 102.9 kg Body Mass Index (BMI) 36.1 Intake & Output: Intake and Output for Last 24 Hours 05/06/21 05/07/21 05/08/21 23:59 23:59 23:59 Intake Total 1029.4 / 1149.4 4802.5 / 4802.5 60 / 60 Output Total 600 / 600 400 / 400 Balance 1029.4 / 1149.4 4202.5 / 4202.5 -340 / -340 Lab / Micro Data Result Diagrams: 05/08/21 03:10 05/08/21 03:10 Labs: Laboratory Results - last 24 hr 05/07/21 10:15: Urine Color Yellow, Urine Clarity Clear, Urine pH 6.0, Ur Specific [place] 1.015, Urine Protein 30 H, Urine Glucose (UA) Normal, Urine Ketones Negative, Urine Occult Blood 10 H, Urine Nitrite Negative, Urine Bilirubin Negative, Urine Urobilinogen 1 H, Ur Leukocyte Esterase Negative, Urine RBC 0-5 SEEN, Urine WBC 0 SEEN, Ur Squamous Epith Cells 0 SEEN, Urine Bacteria 0 SEEN, Urine Mucus 0 SEEN 05/08/21 03:10: WBC 3.8 L, RBC 2.98 L, Hgb 9.6 L, Hct 29.9 L, MCV 100.3 H, MCH 32.2 H, MCHC 32.1, RDW Std Deviation 48.3 H, RDW Coeff of Alverto 13.2, Plt Count 163, MPV 9.9, Immature Gran % (Auto) 0.500, Neut % (Auto) 68.4, Lymph % (Auto) 19.6, [place] % (Auto) 10.1 H, Eos % (Auto) 1.1, Baso % (Auto) 0.3, Absolute Neuts (auto) 2.6, Absolute Lymphs (auto) 0.74 L, Nucleated RBC % 0 05/08/21 03:10: Sodium 142, Potassium 4.1, Chloride 113 H, Carbon Dioxide 22.0, Anion Gap 7, BUN 35 H, Creatinine 1.78 H, Estim Creat Clear Calc 27.53, Est GFR (MDRD) Af Amer 36 L, Est GFR (MDRD) Non-Af 30 L, BUN/Creatinine Ratio 19.7, Glucose 99, Calcium 8.7, Total Bilirubin 0.20, AST 15, ALT 15, Alkaline Phosphatase 43 L, Total Protein 6.6, Albumin 2.4 L, Globulin 4.2, Albumin/Globulin Ratio 0.6 L Radiography Diagnostic Testing: Radiology Impression Lung Scan-VQ NM 05/06/21 21:23 IMPRESSION: 1. VERY LOW PROBABILITY FOR PULMONARY EMBOLUS (<10%) 99m Tc DTPA aerosol ventilation / 99m Tc MAA pulmonary perfusion imaging examination, according to PIOPED II interpretive criteria with regard given to the presence of > 2 ventilation-perfusion matches without corresponding radiographic changes. (Sotsman et al, Radiology 246: 941, 2008 Soelvia et al, J Nucl Med 49: 1741, 2008). 2. Central clumping of the aerosol may be secondary to obstructive airway mechanics and or clinical tachypnea. Electronically Signed: Ismael Nolasco DO at 13:51 EST Tel , Service support , Venous Doppler Study 05/06/21 21:45 Interpretation Summary There is no evidence of right lower extremity deep vein thrombosis. Right great saphenous vein appears patent and compressible segmentally. Acute deep venous thrombosis left femoral, popliteal, tibioperoneal trunk, gastrocnemius, posterior tibial, peroneal, and soleus veins Patent and compressible left great saphenous vein Ordering Physician: Quinn South Referring Physician: Matthew Valdivia Performed By: Cheryl Moss RVT Echocardiogram 05/07/21 05:55 Interpretation Summary Normal LV size. Left ventricular systolic function is normal. The estimated ejection fraction is 60 %. Stage 1 diastolic dysfunction. Contrast injection was performed. Ordering Physician: Quinn South Referring Physician: Matthew Valdivia Performed By: Eladio Ho, [facility] Renal Ultrasound 05/07/21 07:36 IMPRESSION: Mild degree of the renal cortical thinning. Bilateral renal cysts. Diffuse urinary bladder wall thickening. Electronically Signed: Óscar Leyva MD at 15:12 EST , Service support , Physical Exam Const alert, oriented x3 and no apparent distress General Appearance: cooperative and well developed HEENT normocephalic, head/scalp atraumatic and moist oral mucous membranes Eyes PERRL and EOMs intact bilaterally Neck full ROM and no lymphadenopathy Chest Chest: abnormal inspection of the chest kyphotic, scoliotic and increased A-P diameter; Negative for crepitus Resp normal respiratory effort and no use of accessory muscles Resp Narrative: Less splinting with deep inhalation today Effort and Inspection: able to speak in complete sentences Auscultation: diminished lung sounds; Negative for rales, rhonchi or wheezes Percussion: Negative for dullness Cardio regular rate, regular rhythm, S1 normal heart sound, S2 normal heart sound, no murmurs, no rub and no gallops GI normal to inspection, nondistended, normoactive bowel sounds no CVA tenderness Extremity no clubbing, cyanosis or edema Skin no rashes or lesions noted Neuro oriented x3, CN's II-XII intact bilaterally, moves all extremities and no focal motor deficits Psych cooperative and affect normal Charges/Coding Visit Charges Inpatient E&M: 55162 Subs Hosp L2
--- NOTE | 2021-05-08 07:43 | PCS.PANDOC ---
PANDEMIC DOCUMENTATION INITIATED: Date: 01/13/2021 Time: 190
[2021-05-08] MEDS: Enoxaparin 100 MG/ML Syringe SC (08:48)
--- NOTE | 2021-05-08 13:13 | CHAPLAIN ---
Type of Pastoral Visit _x__ Initial Visit ___ Follow-up Visit ___ On-call Visit ___ General Patient Visit ___ Spiritual Assessment ___ Family Conference ___ Bereavement ___ Rapid Response ___ Code Blue ___ Other (describe below) Pastoral Care Referral From _x__ Patient ___ Family ___ Nurse ___ Physician ___ Oleomargarine Maker ___ Fisher Eel Spear ___ Other (describe below) Sacrament/Intervention _x__ Active listening ___ Anointing ___ Tenriism ___ Bereavement ___ Communion ___ Rosa Maria exploration ___ _x__ Life review _x__ Prayer ___ Reconciliation ___ Sacrament of Sick _x__ Supportive presence ___ Wedding ___ Other (describe below) Pastoral Comments patient is sitting up in chair and discusses her current health; pt goal is clear and that is of going home soon; pt believes she is doing better; pt shares about recent move into [place] along with her
[2021-05-08] MEDS: 0.9% Normal Saline 1,000 ML 75 ML IV (13:18)
--- NOTE | 2021-05-08 13:25 | PN.HOSP_ITS ---
Subjective Subjective Follow-up on hypotension: Patient was seen and examined. Blood pressures are much better. Kidney ultrasound did not show any acute kidney stones. Doppler ultrasound of the left leg shows acute DVT. Patient denied any new complaints. No acute events overnight. Objective Data Objective Data Vital Signs: Vital Signs Temp Pulse Resp BP Pulse Ox 97.9 F 88 22 H 114/72 93 05/08/21 13:23 05/08/21 13:23 05/08/21 13:23 05/08/21 13:23 05/08/21 13:23 Oxygen Flow Rate (L/min) 2 Oxygen Delivery Method Room Air Weight: 102.9 kg Body Mass Index (BMI) 36.1 Intake & Output: Intake and Output for Last 24 Hours 05/06/21 05/07/21 05/08/21 23:59 23:59 23:59 Intake Total 1029.4 / 1149.4 4802.5 / 4802.5 1060 / 1060 Output Total 600 / 600 400 / 400 Balance 1029.4 / 1149.4 4202.5 / 4202.5 660 / 660 Lab / Micro Data Result Diagrams: 05/08/21 03:10 05/08/21 03:10 Labs: Laboratory Results - last 24 hr 05/08/21 03:10: WBC 3.8 L, RBC 2.98 L, Hgb 9.6 L, Hct 29.9 L, MCV 100.3 H, MCH 32.2 H, MCHC 32.1, RDW Std Deviation 48.3 H, RDW Coeff of Alverto 13.2, Plt Count 163, MPV 9.9, Immature Gran % (Auto) 0.500, Neut % (Auto) 68.4, Lymph % (Auto) 19.6, [place] % (Auto) 10.1 H, Eos % (Auto) 1.1, Baso % (Auto) 0.3, Absolute Neuts (auto) 2.6, Absolute Lymphs (auto) 0.74 L, Nucleated RBC % 0 05/08/21 03:10: Sodium 142, Potassium 4.1, Chloride 113 H, Carbon Dioxide 22.0, Anion Gap 7, BUN 35 H, Creatinine 1.78 H, Estim Creat Clear Calc 27.53, Est GFR (MDRD) Af Amer 36 L, Est GFR (MDRD) Non-Af 30 L, BUN/Creatinine Ratio 19.7, Glucose 99, Calcium 8.7, Total Bilirubin 0.20, AST 15, ALT 15, Alkaline Phosphatase 43 L, Total Protein 6.6, Albumin 2.4 L, Globulin 4.2, Albumin/Globulin Ratio 0.6 L Radiography Diagnostic Testing: Radiology Impression Lung Scan-VQ NM 05/06/21 21:23 IMPRESSION: 1. VERY LOW PROBABILITY FOR PULMONARY EMBOLUS (<10%) 99m Tc DTPA aerosol ventilation / 99m Tc MAA pulmonary perfusion imaging examination, according to PIOPED II interpretive criteria with regard given to the presence of > 2 ventilation-perfusion matches without corresponding radiographic changes. (Sotsman et al, Radiology 246: 941, 2008 Sotsman et al, J Nucl Med 49: 1741, 2008). 2. Central clumping of the aerosol may be secondary to obstructive airway mechanics and or clinical tachypnea. Electronically Signed: Ismael Nolasco DO at 13:51 EST Tel , Service support , Venous Doppler Study 05/06/21 21:45 Interpretation Summary There is no evidence of right lower extremity deep vein thrombosis. Right great saphenous vein appears patent and compressible segmentally. Acute deep venous thrombosis left femoral, popliteal, tibioperoneal trunk, gastrocnemius, posterior tibial, peroneal, and soleus veins Patent and compressible left great saphenous vein Ordering Physician: Quinn South Referring Physician: Matthew Valdivia Performed By: Cheryl Moss RVT Renal Ultrasound 05/07/21 07:36 IMPRESSION: Mild degree of the renal cortical thinning. Bilateral renal cysts. Diffuse urinary bladder wall thickening. Electronically Signed: Óscar Leyva MD at 15:12 EST , Service support , Physical Exam Narrative Physical exam: General: Alert, Oriented x3, Cooperative, obese, in pain, off oxygen, but oxygen requirements are tenuous HEENT: Atraumatic Oral: Moist Mucosa Neck: Supple Lungs: Diminished to auscultation Cardiovascular: HS I+II, regular, no murmurs Abdomen: Bowel Sounds Present, Soft, Non Tender Extremities: No edema Assessment & Plan Assessment/Plan (1) Hypotension: QUALIFIERS: Hypotension type: unspecified hypotension type Qualified Code(s): I95.9 - Hypotension, unspecified (2) Generalized weakness: (3) Flank pain: PLAN: 1. Hypotension, improved with IV fluid Continue to monitor, DC IV fluid 2. Acute DVT of the left lower extremity, probable acute PE Doppler ultrasound of the legs positive for acute DVT of the left leg -femoral, popliteal, tibioperoneal trunk, gastrocnemius, posterior tibial, peroneal and soleus veins VQ scan negative for acute PE. Continue on Lovenox therapeutic dosing Change when renal function continues to improved; probably tomorrow 3. RYLEY, baseline creatinine less than 1, slowly improving Admitted creatinine of 3.21; creatinine today is 1.78 Repeat blood work in a.m. 4. Acute flank pain, appears resolved Ultrasound of the kidneys negative for acute sounds 5. Rest of her chronic medical conditions including chronic back pain, COPD, h/o PE, hypertension, hyperlipidemia remained stable Continue to hold lisinopril and hydrochlorothiazide Charges/Coding Visit Charges Inpatient E&M: 74888 Subs Hosp L3
[2021-05-08] MEDS: MELATONIN 3 MG TABLET PO (22:39)
[2021-05-09] VITALS (11 sets, daily range): BP systolic 100–119; BP diastolic 54–87; PULSE 75–100; RESP 18–22; TEMP 36.5–36.9; O2SAT 93–96
[2021-05-09 02:39] LABS: Absolute Lymphocyte Count 0.68 X10^3/uL (0.83-4.51); Absolute Neutrophil Count 1.9 X10^3/uL (2.0-7.7); Basophil# 0.02 X10^3/uL; Basophil% 0.7 % (0-1); Eosinophil# 0.03 X10^3/uL; Hemoglobin 9.6 g/dL (12.0-15.0); Lymphocyte # 0.68 X10^3/ul (0.83-4.51); Lymphocyte % 22.4 % (19-41); Mean Corpuscular Hgb 32.1 pg (27.0-32.0); Mean Corpuscular Volume 100.3 fL (81-99); Mean Platelet Vol. 9.6 fl (6.2-12.0); Monocyte# 0.37 X10^3/uL; Monocyte% 12.2 % (0-10); NRBC Flagged by Analyzer 0 % (0-5); Neutrophil # 1.89 X10^3/uL (2.7-7.7); Neutrophil % 62.4 % (47-70); Platelet Count 175 K/mm3 (150-450); Red Blood Count 2.99 M/mm3 (4.2-5.4)
[2021-05-09 03:17] LABS: ALB/GLOB Ratio 0.6 RATIO (0.9-2.4); AST(SGOT) 18 U/L (15-37); Alanine Aminotransfer ALT/SGPT 15 U/L (13-56); Albumin, Serum 2.4 g/dL (3.2-5.0); Alkaline Phosphatase 41 U/L (45-117); Anion Gap 8 (5-15); BUN 28 mg/dL (7-18); BUN/Creat Ratio 20.1 RATIO (10-20); Calcium,Total 8.9 mg/dL (8.5-10.1); Chloride 115 mmol/L (98-107); Creatinine, Serum 1.39 mg/dL (0.55-1.02); EST Glomerular Filtration Rate 40 mL/min (>60); Est Glom Filt Rate - Afr Amer 48 mL/min (>60); Estimated Creatinine Clearance 35.26 ml/min; Globulin 4.2 g/dL (2.2-4.2); Glucose 96 mg/dL (74-106); Potassium 3.7 mmol/L (3.5-5.1); Protein, Total 6.6 g/dL (6.4-8.2); Sodium Level 145 mmol/L (136-145)
[2021-05-09] MEDS: Gabapentin 100 MG Capsule PO (05:50)
--- NOTE | 2021-05-09 08:32 | PN.CC_ITS ---
Assessment & Plan Assessment/Plan (1) Renal failure: QUALIFIERS: Renal failure chronicity: acute Acute renal failure type: unspecified Qualified Code(s): N17.9 - Acute kidney failure, unspecified (2) Hypotension: QUALIFIERS: Hypotension type: unspecified hypotension type Qualified Code(s): I95.9 - Hypotension, unspecified (3) Polypharmacy: PLAN: RECOMMENDATIONS: 1. Consider transition to a 10 a inhibitor for 3 months of total therapy 2. Increase activity as tolerated 3. Walking oximetry prior to discharge 4. Continue to hold NEGAR inhibitor 5. Encourage incentive spirometer and out of bed as tolerated 6. Okay to leave the intensive care unit from my perspective 7. Hemodynamically stable on room air. Will sign off from a critical care perspective IMPRESSIONS: 1. Acute kidney injury Slowly improving. Unclear onset. Patient does have labs from 2019 showing relatively normal renal function with a creatinine around 1. Patient is reporting good output without hematuria, but appears to have right flank pain. May be able to restart NEGAR inhibitor on discharge with close follow-up. Patient will continue to have aggressive fluid resuscitation as this appears to be improving her overall condition. Bactrim should also be held. No indication for renal replacement therapy at this time. Renal ultrasound was not suggestive of an occlusive kidney stone and UA did not have red blood cells. 2. Acute hypoxic respiratory insufficiency secondary to subsegmental PE/DVT Unclear etiology. Differential diagnosis would include pulmonary embolism, atelectasis, evolving pneumonia or chronic respiratory failure secondary to COPD. VQ was suggestive of very low probability of PE. However, given the findings of DVT, hypoxia and improvement of pain with anticoagulation, I believe patient likely had a small PE on presentation that was below the resolution of the VQ scan. Patient does have a history of cerebral bleed and previous DVT PE. Patient will need 3 months of anticoagulation, but ultimately will have to choose which is a greater risk before proceeding with lifelong anti coagulation. Clinical suspicion for overnight hypoxia related to untreated sleep apnea 3. Advanced age/history of osteomyelitis/chronic pain syndrome/kyphoscoliosis/delayed presentation Complicates care, management, recovery and prognosis. Monitor for retention of opiates secondary to renal dysfunction. Low clinical suspicion for active osteomyelitis given lack of leukocytosis, fever or other constitutional symptoms. Subjective Subjective Patient did well overnight. Patient was noted to have apneic episodes while sleeping and did require supplemental oxygen. Patient subjectively feels improved today compared to yesterday. Patient continues to wait for a floor bed. No fluid boluses or pressors were required overnight. Objective Data Objective Data Vital Signs: Vital Signs Temp Pulse Resp BP Pulse Ox 36.9 C 92 18 107/54 L 95 05/09/21 02:30 05/09/21 06:59 05/09/21 02:30 05/09/21 02:30 05/09/21 02:30 Oxygen Flow Rate (L/min) 3 Oxygen Delivery Method Nasal Cannula Weight: 102.5 kg Body Mass Index (BMI) 36.1 Intake & Output: Intake and Output for Last 24 Hours 05/07/21 05/08/21 05/09/21 23:59 23:59 23:59 Intake Total 4802.5 / 4802.5 1078.75 / 1078.75 Output Total 600 / 600 1000 / 1000 300 / 300 Balance 4202.5 / 4202.5 78.75 / 78.75 -300 / -300 Lab / Micro Data Result Diagrams: 05/09/21 02:25 05/09/21 02:25 Labs: Laboratory Results - last 24 hr 05/08/21 12:15: COVID-19 (NICOLE) Not Detected 05/09/21 02:25: WBC 3.0 L, RBC 2.99 L, Hgb 9.6 L, Hct 30.0 L, MCV 100.3 H, MCH 32.1 H, MCHC 32.0, RDW Std Deviation 48.0 H, RDW Coeff of Alverto 13.0, Plt Count 175, MPV 9.6, Immature Gran % (Auto) 1.300 H, Neut % (Auto) 62.4, Lymph % (Auto) 22.4, [place] % (Auto) 12.2 H, Eos % (Auto) 1.0, Baso % (Auto) 0.7, Absolute Neuts (auto) 1.9 L, Absolute Lymphs (auto) 0.68 L, Nucleated RBC % 0 05/09/21 02:25: Sodium 145, Potassium 3.7, Chloride 115 H, Carbon Dioxide 22.0, Anion Gap 8, BUN 28 H, Creatinine 1.39 H, Estim Creat Clear Calc 35.26, Est GFR (MDRD) Af Amer 48 L, Est GFR (MDRD) Non-Af 40 L, BUN/Creatinine Ratio 20.1 H, G lucose 96, Calcium 8.9, Total Bilirubin 0.20, AST 18, ALT 15, Alkaline Phosphatase 41 L, Total Protein 6.6, Albumin 2.4 L, Globulin 4.2, Album in/Globulin Ratio 0.6 L Physical Exam Const alert, oriented x3 and no apparent distress Constitutional Narrative: Sitting in the chair sleeping on my arrival General Appearance: cooperative and well developed HEENT normocephalic, head/scalp atraumatic and moist oral mucous membranes Eyes PERRL and EOMs intact bilaterally Neck full ROM and no lymphadenopathy Chest Chest: abnormal inspection of the chest kyphotic, scoliotic and increased A-P diameter; Negative for crepitus Resp normal respiratory effort and no use of accessory muscles Resp Narrative: No splinting with deep inhalation today. Some apneic episodes Effort and Inspection: able to speak in complete sentences Auscultation: diminished lung sounds; Negative for rales, rhonchi or wheezes Percussion: Negative for dullness Cardio regular rate, regular rhythm, S1 normal heart sound, S2 normal heart sound, no murmurs, no rub and no gallops GI normal to inspection, nondistended, normoactive bowel sounds no CVA tenderness Extremity no clubbing, cyanosis or edema Skin no rashes or lesions noted Neuro oriented x3, CN's II-XII intact bilaterally, moves all extremities and no focal motor deficits Psych cooperative and affect normal Charges/Coding Visit Charges Inpatient E&M: 30757 Subs Hosp L2
[2021-05-09] MEDS: Enoxaparin 100 MG/ML Syringe SC (10:39)
--- NOTE | 2021-05-09 11:52 | DS.PCM_ITS ---
Providers Date of Admission: 05/06/21 Date of Discharge: 05/09/21 Primary Care Physician: Dr. 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 / Pulmonary Medicine Routine Consulting Provider: Rupert Newell Reason for Consult: Hypotension; possible PE EMERGENT Consult: No MD Notified: Yes Date Notified: 05/06/21 Time Notified: 21:37 Method of Notification: Text Reason For Visit: HYPOTENSION Diagnosis Discharge Diagnosis (1) Renal failure: Status: Acute Code(s): N19 - Unspecified kidney failure Qualifiers: Acute renal failure type: unspecified Renal failure chronicity: acute Qualified Code(s): N17.9 - Acute kidney failure, unspecified (2) Hypotension: Status: Acute Code(s): I95.9 - Hypotension, unspecified Qualifiers: Hypotension type: unspecified hypotension type Qualified Code(s): I95.9 - Hypotension, unspecified (3) Polypharmacy: Status: Acute Code(s): Z79.899 - 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 Patient was seen earlier on in the emergency room and had elevated D-dimer. She signed out AGAINST MEDICAL ADVICE and went home. She returned to the ED with persistent pain. She believed that her pain was due to acute PE. Her kidney function was elevated and could not undergo CTA chest. Patient was also found to be hypotensive and had acute kidney injury. Patient was admitted to the ICU, managed on IV fluids. Her home blood pressure medications were held. VQ scan was negative for acute PE. Doppler ultrasound lower extremities was positive for acute femoral, popliteal, tibioperoneal trunk, gastrocnemius, posterior tibial, peroneal and soleus vein DVT. Patient was started on therapeutic Lovenox. She had 2D echo done that showed EF of 60%, stage I diastolic dysfunction. Kidney ultrasound showed medical renal disease, bilateral renal cyst, diffuse urinary bladder wall thickening. Patient denied any acute UTI symptoms. UA was on not suggestive of acute UTI. She was off oxygen and at time of discharge. However patient needed oxygen usually at night. Suspect she has obstructive sleep apnea. Patient will follow up with pulmonology in the outpatient for [place] oximetry or sleep study. It was stressed to her that she was being discharged with her blood pressure medications. She needed to check her blood pressure every day. She should follow-up with her primary care doctor within a week for possible resumption of blood pressure medication and lasix. She was asked to weigh herself every day. Physical Exam Narrative Physical exam: General: Alert, Oriented x3, Cooperative, obese, in pain, off oxygen, but oxygen requirements are tenuous HEENT: Atraumatic Oral: Moist Mucosa Neck: Supple Lungs: Diminished to auscultation Cardiovascular: HS I+II, regular, no murmurs Abdomen: Bowel Sounds Present, Soft, Non Tender Extremities: No edema Weight / BMI Weight Weight: 102.5 kg Body Mass Index (BMI) 36.1 ABG / Lab / Microbiology Data Result Diagrams: 05/09/21 02:25 05/09/21 02:25 Laboratory: Laboratory Results - last 24 hr 05/08/21 12:15: COVID-19 (NICOLE) Not Detected 05/09/21 02:25: WBC 3.0 L, RBC 2.99 L, Hgb 9.6 L, Hct 30.0 L, MCV 100.3 H, MCH 32.1 H, MCHC 32.0, RDW Std Deviation 48.0 H, RDW Coeff of Alverto 13.0, Plt Count 175, MPV 9.6, Immature Gran % (Auto) 1.300 H, Neut % (Auto) 62.4, Lymph % (Auto) 22.4, [place] % (Auto) 12.2 H, Eos % (Auto) 1.0, Baso % (Auto) 0.7, Absolute Neuts (auto) 1.9 L, Absolute Lymphs (auto) 0.68 L, Nucleated RBC % 0 05/09/21 02:25: Sodium 145, Potassium 3.7, Chloride 115 H, Carbon Dioxide 22.0, Anion Gap 8, BUN 28 H, Creatinine 1.39 H, Estim Creat Clear Calc 35.26, Est GFR (MDRD) Af Amer 48 L, Est GFR (MDRD) Non-Af 40 L, BUN/Creatinine Ratio 20.1 H, Glucose 96, Calcium 8.9, Total Bilirubin 0.20, AST 18, ALT 15, Alkaline Phosphatase 41 L, Total Protein 6.6, Albumin 2.4 L, Globulin 4.2, Albumin /Globulin Ratio 0.6 L Microbiology: Microbiology 05/07/21 10:15 Urine, Clean Catch Urine Culture - Final Mixed Gram Positive Organisms D/C Instructions Discharge Diet: 2000 mg Sodium Diet Meaningful Use Info Meaningful Use Diagnoses (Choose all that apply): None applicable Discharge Plan Admission Admit Date/Time: 05/06/21 19:42 Primary Reason for Your Visit: Hypotension probable acute PE, Acute left leg DVT Attending Provider: Adelina Munson Primary Care Provider: Matthew Valdivia Consulting Providers: Rupert Newell Instructions Additional Instructions / Restrictions: Take note of changes to your medications. You need to continue to take your blood thinners as prescribed. Follow-up with your primary care doctor within 1 to 2 weeks. Follow-up with pulmonology as scheduled for consideration for nocturnal pulse oximetry or sleep study to evaluate for sleep apnea. Measure your blood pressure daily and showed a reading of your blood pressures to your primary care doctor. Discharge Orders/Prescriptions Prescriptions: [place] DVT-PE Treat 30D Start 5 mg (74 tabs) tablets,dose pack See Taper mg PO BID Qty: 74 RF: 0 gabapentin 100 mg Capsule 100 mg PO TID 30 Days Qty: 90 RF: 0 Continued gemfibrozil 600 MG tablet 600 mg PO BID RF: 0 phentermine 37.5 mg tablet 37.5 mg PO DAILY RF: 0 Discontinued sulfamethoxazole-trimethoprim 1 TABLET tablet 1 tab PO BID RF: 0 lisinopril-hydrochlorothiazide 20-25 mg tablet 1 tab DAILY RF: 0 gabapentin 300 mg capsule 600 mg PO TID RF: 0 Referrals / Follow Up: Matthew Valdivia DO [Primary Care Provider] - Viktoria Ramon ENGRAVER SET UP OPERATOR, ENGRAVER SET UP OPERATOR-C [Nurse Practitioner] - 05/27/21 11:15 am Disposition Disposition (needs filled in before D/C Order can be placed): Home, Self Care Charges/Coding Visit Charges Inpatient E&M: 18995 Disch Hosp
--- NOTE | 2021-05-09 12:00 | CASEMGMT ---
KENYA CM in to discuss discharge needs. Patient provided with [employer] savings card. Copay is $25 per [facility]. Patient denies further needs at discharge. Patient does not qualify for home oxygen.
== END 2021-05-09 13:30 | disposition home or self-care (01) | DRG 315 ==
LOC: ED 19:40 → ICU 20:26
PROVIDERS: Emergency Medicine; Admitting Provider Hospitalist; Emergency Provider Emergency Medicine; PCP Family Medicine; Visit Provider Internal Medicine
DX: I95.9 Hypotension, unspecified (principal); N17.9 Acute kidney failure, unspecified; I82.412 Acute embolism and thrombosis of left femoral vein; I82.432 Acute embolism and thrombosis of left popliteal vein; I82.442 Acute embolism and thrombosis of left tibial vein; I82.452 Acute embolism and thrombosis of left peroneal vein; R09.02 Hypoxemia; R07.9 Chest pain, unspecified; G83.14 Monoplegia of lower limb affecting left nondominant side; J44.9 Chronic obstructive pulmonary disease, unspecified; I10 Essential (primary) hypertension; E78.5 Hyperlipidemia, unspecified; M54.9 Dorsalgia, unspecified; G89.4 Chronic pain syndrome; G47.33 Obstructive sleep apnea (adult) (pediatric); Z99.3 Dependence on wheelchair; Z79.899 Other long term (current) drug therapy; Z86.711 Personal history of pulmonary embolism; Z86.73 Personal history of transient ischemic attack (TIA), and cerebral infarction without residual deficits; Z86.718 Personal history of other venous thrombosis and embolism; Z87.891 Personal history of nicotine dependence
CPT/HCPCS: 71045; 76770; 78582; 80048; 80053; 81001; 82570; 83935; 84300; 84484; 84540; 85025; 85379; 85610; 85730; 87086; 87088; 87635; 93005; 93306; 93970; 94762; 97161; 97166; 97802; 99285; A9540; A9567; J7030; J7120; Q9957; U0005; A4216; C8929; U0003

== ENCOUNTER 2021-11-30 20:23 | Inpatient (IN) | payer MEDICARE, OTHER, SELFPAY ==
[2021-11-30] VITALS (12 sets, daily range): BP systolic 84–145; BP diastolic 63–93; PULSE 70–103; RESP 16–21; TEMP 36.8–38.7; O2SAT 85–100; BMI 35.6; BMI 35.2
--- NOTE | 2021-11-30 20:51 | EKG12_ITS ---
Test Reason : FALL Blood Pressure : / mmHG Vent. Rate : 083 BPM Atrial Rate : 083 BPM P-R Int : 178 ms QRS Dur : 090 ms QT Int : 340 ms P-R-T Axes : 048 -24 057 degrees QTc Int : 399 ms Normal sinus rhythm Leftward axis Poor R wave progression Confirmed by ROSA ROMERO, BENNY ([id number]), editor newspaper NAMITA OVIEDO ([id number]) on 12/02/2021 9:50:28 AM Referred By: SUSANNA Confirmed By:BENNY LEE MD
--- NOTE | 2021-11-30 20:53 | EDS_ITS ---
HPI History of Present Illness Chief Complaint: Fall Informant: patient Onset/Context/Timing Onset: Today Narrative Narrative: Patient presents via EMS secondary to weakness. She states today she was just too weak and was lowered to the ground when her leg gave out on her trying to transfer. She states she did not fall hard and there was no injury. EMS reportedly had her O2 sat at 68% on room air. She does not normally wear home oxygen. She denies shortness of breath. She states overall for the past couple days she has felt very weak and tired. No vomiting or diarrhea. She has had a mild cough. [facility] Medical History (Updated 11/30/21 @ 22:[address] Livier Whipple MD) Chronic back pain Constipation COPD (chronic obstructive pulmonary disease) Emphysema lung History of pulmonary embolism HLD (hyperlipidemia) HTN (hypertension) Stroke/cerebrovascular accident Thrombocytopenia Home Medications gemfibrozil 600 mg tablet 600 mg PO BID Check with primary doctor 03/03/19 [History Last Taken 05/06/21] phentermine 37.5 mg tablet 37.5 mg PO DAILY WT LOSS 05/06/21 [History Last Taken 05/06/21] apixaban 5 mg (74 tabs) tablets in a dose pack (Eliquis DVT-PE Treat 30D Start) See Taper PO BID #74 tabs 05/09/21 [Rx Last Taken Unknown] gabapentin 100 mg capsule 100 mg PO TID 30 days #90 caps 05/09/21 [Rx Last Taken Unknown] loperamide 2 mg tablet 2 mg PO Q6H PRN Loose Stool 11/30/21 [History Last Taken Unknown] Allergy/AdvReac Type Severity Reaction Status Date / Time No Known Allergies Allergy Verified 05/27/21 11:18 Family History (Updated 11/30/21 @ 21:[address] Daisy Rivera MD) Mother Heart disease Father Heart disease Surgical History (Updated 11/30/21 @ 21:[address] Daisy Rivera MD) Previous back surgery Social History (Updated 11/30/21 @ 21:[address] Daisy Rivera MD) household members: spouse Smoking Status: Former smoker alcohol intake: never substance use type: does not use ROS ROS ED Constitutional Constitutional ED: Reports fever(s) and subjective; Denies chills Eyes Eyes: Denies change in vision or discharge from eye(s) ENT ENT ED: Reports sore throat; Denies discharge from eye(s) or rhinorrhea Cardiovascular Cardiovascular: Denies palpitations Respiratory/Chest Respiratory/Chest: Reports cough; Denies dyspnea Gastrointestinal Gastrointestinal: Denies abdominal pain, diarrhea, nausea or vomiting Genitourinary Genitourinary ED: Denies dysuria Musculoskeletal Musculoskeletal: Denies back pain or extremity pain Integumentary Denies Abrasions or rash Neurologic Neurologic: Reports weakness; Denies headache(s) Allergic/Immunologic Allergic/Immunologic ED: Denies lip swelling or urticaria EXAM Physical Exam Const Vital Signs: 11/30/21 20:24 11/30/21 20:28 11/30/21 20:30 Temperature 101.7 F H Temperature Source Temporal Pulse Rate 78 74 Respiratory Rate 16 16 Respiratory Effort Normal Non-Labored Respiratory Depth Normal Respiratory Pattern Normal Blood Pressure 137/65 H 137/65 H Blood Pressure Mean 89 89 Pulse Ox 85 92 90 Oxygen Delivery Method Room Air Nasal Cannula Nasal Cannula Oxygen Flow Rate (L/min) 2 2 11/30/21 20:28 11/30/21 22:13 Temperature 100.9 F H 99.4 F H Temperature Source Temporal Oral Pulse Rate 70 98 Respiratory Rate 16 18 Respiratory Effort Respiratory Depth Respiratory Pattern Blood Pressure 137/65 H 135/93 H Blood Pressure Mean 89 107 Pulse Ox 95 95 Oxygen Delivery Method Nasal Cannula Nasal Cannula Oxygen Flow Rate (L/min) 3 8 Positive well nourished and well developed General Appearance ED: well developed HEENT Reports normocephalic and head/scalp atraumatic Eyes PERRL and EOMs intact bilaterally Neck supple Chest Wall inspection of chest normal and palpation of chest normal Resp normal respiratory effort and clear to auscultation bilaterally Cardio regular rate and regular rhythm GI non-tender Auscultation: hypoactive bowel sounds Palpation: soft Extremity normal to inspection Neuro oriented x3 Neuro Narrative: Generalized weakness but no focal neurologic deficits. Sensorium / Orientation: alert Psych mental status grossly normal Skin no rashes or lesions noted MDM MDM MDM Narrative Medical decision making narrative: EKG, chest x-ray, lab work obtained. Lab Data Attestation: I reviewed the patient's lab results. Labs: Laboratory Results - last 24 hr 11/30/21 11/30/21 11/30/21 20:50 20:50 20:50 WBC 3.8 L RBC 3.89 L Hgb 12.4 Hct 39.4 MCV 101.3 H MCH 31.9 MCHC 31.5 L RDW Std Deviation 50.4 H RDW Coeff of Alverto 13.6 Plt Count 127 L MPV 10.1 Immature Gran % (Auto) 1.100 H Neut % (Auto) 73.7 H Lymph % (Auto) 13.5 L [place] % (Auto) 11.4 H Eos % (Auto) 0.0 Baso % (Auto) 0.3 Absolute Neuts (auto) 2.8 Absolute Lymphs (auto) 0.51 L Nucleated RBC % 0 Differential Comment SCANNED D-Dimer Quant (PE/DVT) 1.22 H* Sodium 135 L Potassium 4.7 Chloride 102 Carbon Dioxide 27.0 Anion Gap 6 BUN 28 H Creatinine 2.04 H Estim Creat Clear Calc 25.52 Est GFR (MDRD) Af Amer 31 L Est GFR (MDRD) Non-Af 26 L BUN/Creatinine Ratio 13.7 Glucose 112 H Lactic Acid Calcium 8.7 Total Bilirubin 0.20 Direct Bilirubin 0.09 AST 22 ALT 17 Alkaline Phosphatase 56 Troponin I High Sens 41 Total Protein 7.6 Albumin 3.7 Globulin 3.9 Urine Color Urine Clarity Urine pH Ur Specific [place] Urine Protein Urine Glucose (UA) Urine Ketones Urine Occult Blood Urine Nitrite Urine Bilirubin Urine Urobilinogen Ur Leukocyte Esterase Urine RBC Urine WBC Ur Squamous Epith Cells Urine Bacteria Fine Granular Casts Coarse Granular Casts Urine Mucus 11/30/21 11/30/21 20:50 21:24 WBC RBC Hgb Hct MCV MCH MCHC RDW Std Deviation RDW Coeff of [place] Plt Count MPV Immature Gran % (Auto) Neut % (Auto) Lymph % (Auto) [place] % (Auto) Eos % (Auto) Baso % (Auto) Absolute Neuts (auto) Absolute Lymphs (auto) Nucleated RBC % Differential Comment D-Dimer Quant (PE/DVT) Sodium Potassium Chloride Carbon Dioxide Anion Gap BUN Creatinine Estim Creat Clear Calc Est GFR (MDRD) Af Amer Est GFR (MDRD) Non-Af BUN/Creatinine Ratio Glucose Lactic Acid 0.8 Calcium Total Bilirubin Direct Bilirubin AST ALT Alkaline Phosphatase Troponin I High Sens Total Protein Albumin Globulin Urine Color Yellow Urine Clarity Clear Urine pH 5.0 Ur Specific [place] 1.020 Urine Protein 100 H Urine Glucose (UA) Normal Urine Ketones Negative Urine Occult Blood 50 H Urine Nitrite Negative Urine Bilirubin 1 H Urine Urobilinogen Normal Ur Leukocyte Esterase Negative Urine RBC 0-5 SEEN Urine WBC 0-5 SEEN Ur Squamous Epith Cells 0-5 SEEN Urine Bacteria RARE Fine Granular Casts 5-10 SEEN Coarse Granular Casts 5-10 SEEN Urine Mucus 0 SEEN Rapid COVID: Negative Influenza: Negative Radiography Chest X-Ray - ED: 1 View, Read by ED Physician and Chronic Changes Diagnostic Testing: Clinical Impression(s) from Imaging Studies Chest X-Ray 11/30/21 21:05 IMPRESSION: No acute cardiopulmonary disease or major interval change. Electronically Signed: Shay LombardoDO at 21:53 EDT Reading Location ID and State: [address] [place] [address] Tel [phone], Service support , EKG Initial EKG: Attestation: I personally reviewed and interpreted this EKG as follows: Interpretation: Sinus Rhythm (Sinus at 83 with no acute ischemia.) Treatment and Re-Evaluation Narrative: CBC reveals low white count at 3.8. D-dimer 1.22. Chemistry studies reveal a BUN of 28 and a creatinine of 2.04. She has had a variable baseline creatinine over the last year or 2 ranging from 1.4-2.6. Lactic acid is normal. Troponin is normal at 41. Chest x-ray per my interpretation shows chronic changes with no obvious infiltrate. Patient does have an elevated D-dimer, however her GFR is too low to tolerate a CTA of the chest at this time. Patient is currently on Eliquis and denies missing doses. She denies chest pain and is not tachycardic. Rapid COVID test is negative and influenza test is negative. Is a reenter the room patient's O2 sats are reading in the 70s on nasal cannula. She is sleeping. I awaken her and tell her to take deep breaths. She comes up into the high 80s and then is switched to a nonrebreather mask. At this time she is on high flow nasal cannula at 7 L and maintaining her sats in the high 90s. She falls asleep easily. ABG will be obtained to determine whether patient will need BiPAP. I will speak with hospitalist. Addendum: Patient's ABG reveals a pH of 7.083 with a PCO2 of 98. PO2 is 77 with a sat of 87%. She is being placed on BiPAP and will be admitted to the ICU. Discharge Plan Dx/Rx/DC Orders Clinical Impression: Generalized weakness, Hypoxia, Viral syndrome, CO2 retention Disposition Disposition: Acute Care Hospital [facility]
[2021-11-30 21:04] LABS: Absolute Lymphocyte Count 0.51 X10^3/uL (0.83-4.51); Absolute Neutrophil Count 2.8 X10^3/uL (2.0-7.7); Basophil# 0.01 X10^3/uL; Basophil% 0.3 % (0-1); Hematocrit 39.4 % (37-47); Hemoglobin 12.4 g/dL (12.0-15.0); Lymphocyte # 0.51 X10^3/ul (0.83-4.51); Lymphocyte % 13.5 % (19-41); Mean Corp Hgb Conc 31.5 g/dL (32-36); Mean Corpuscular Hgb 31.9 pg (27.0-32.0); Mean Corpuscular Volume 101.3 fL (81-99); Mean Platelet Vol. 10.1 fl (6.2-12.0); Monocyte# 0.43 X10^3/uL; Monocyte% 11.4 % (0-10); NRBC Flagged by Analyzer 0 % (0-5); Neutrophil # 2.79 X10^3/uL (2.7-7.7); Neutrophil % 73.7 % (47-70); POSITIVE DIFFERENTIAL YES; Platelet Count 127 K/mm3 (150-450); RBC Distribution Width CV 13.6 % (11.6-14.6); RBC Distribution Width SD 50.4 fl (35.1-43.9); Red Blood Count 3.89 M/mm3 (4.2-5.4); White Blood Count 3.8 K/mm3 (4.4-11.0)
[2021-11-30 21:05] LABS: Differential Indicated SCAN CRITERIA MET
--- NOTE | 2021-11-30 21:05 | RAD_ITS ---
STUDY: X-RAY CHEST REASON FOR EXAM: Female, 71 years old. Shortness of breath. Fever sore throat and hypoxia. Oxygen saturation at 68% by EMS. Fall. TECHNIQUE: Single AP portable view of the chest. COMPARISON: 05/06/2021. FINDINGS: The lungs are clear and expanded. There is no demonstrated pleural abnormality. Normal size heart. Normal mediastinum and mark. Normal visualized pulmonary arteries. Normal visualized aortic arch and descending thoracic aorta. Stable fusion of the thoracic spine. Normal visualized ribs, clavicles, and shoulders. There is no demonstrated abnormality of the visualized soft tissue structures of the upper abdomen. RAD/Chest 1 View (Portable) IMPRESSION: No acute cardiopulmonary disease or major interval change. Electronically Signed: Shay Lombardo DO at 21:53 EDT ,
[2021-11-30 21:23] LABS: D-Dimer Quantitative (DVT/PE) 1.22 FEU/ug/m (0.27-0.49)
[2021-11-30] MEDS: Acetaminophen 500 MG Tablet 1000 MG PO (21:24)
[2021-11-30] MEDS: 0.9% Normal Saline 1,000 ML 150 ML IV (21:26)
[2021-11-30 21:28] LABS: Differential Comment SCANNED
[2021-11-30 21:35] LABS: AST(SGOT) 22 U/L (15-37); Alanine Aminotransfer ALT/SGPT 17 U/L (13-56); Albumin, Serum 3.7 g/dL (3.2-5.0); Alkaline Phosphatase 56 U/L (45-117); Anion Gap 6 (5-15); BUN 28 mg/dL (7-18); BUN/Creat Ratio 13.7 RATIO (10-20); Bilirubin, Direct 0.09 mg/dL (0.00-0.30); Calcium,Total 8.7 mg/dL (8.5-10.1); Chloride 102 mmol/L (98-107); Creatinine, Serum 2.04 mg/dL (0.55-1.02); EST Glomerular Filtration Rate 26 mL/min (>60); Est Glom Filt Rate - Afr Amer 31 mL/min (>60); Estimated Creatinine Clearance 25.52 ml/min; Globulin 3.9 g/dL (2.2-4.2); Glucose 112 mg/dL (74-106); Lactic Acid 0.8 mmol/L (0.4-1.9); Potassium 4.7 mmol/L (3.5-5.1); Protein, Total 7.6 g/dL (6.4-8.2); Sodium Level 135 mmol/L (136-145); Troponin-I HS 41 pg/mL (3.0-54.0)
[2021-11-30 21:37] LABS: Mucous, Urine 0 SEEN /hpf (<or=2+)
[2021-11-30 22:02] LABS: Color, Urine Yellow (Yellow); Glucose, Dipstick Normal (Normal); Ketone-Dipstick Negative (Negative); Leukocyte Esterase-Dipstick Negative /ul (Negative); Nitrite-Dipstick Negative (Negative); Occult Blood-Urine 50 /ul (Negative); Protein-Dipstick 100 mg/dl (Negative); Urine Clarity Clear (Clear); Urine Urobilinogen Normal (Normal)
[2021-11-30 22:05] LABS: Urine Bilirubin Dipstick 1 mg/dL (Negative)
[2021-11-30 22:12] LABS: Red Blood Cells-Urine 0-5 SEEN /hpf (0-5); Squamous Epithelial Cells - UA 0-5 SEEN /hpf (5-10); White Blood Cells 0-5 SEEN /hpf (0-5)
[2021-11-30 22:13] LABS: Bacteria RARE /hpf (None Seen)
[2021-11-30 22:14] LABS: Coarse Granular Cast 5-10 SEEN /lpf (0-5 /lpf); Fine Granular Cast- Urine 5-10 SEEN /lpf (0-5)
--- NOTE | 2021-11-30 22:15 | HP.PCM.HOS_ITS ---
HPI - General General Date of Admission: 11/30/21 Date of Service: 11/30/21 Chief Complaint: Fall, weakness, mild cough, hypoxia. HPI Narrative The patient is a 71 y/o F w/ PMHx: COPD with Chronic Hypoxic Respiratory Failure q HS only with suspected YESSY, HTN, HLD, Hx PE, Hx CVA, Chronic thrombocytopenia, Chronic back pain, Obesity, Chronically debilitated and wheelchair bound who presents to the [facility] ED on 11/30/21 with history of mechanical fall with significant weakness reporting that she was attempting to transfer however her legs gave out with no injury upon her fall, loss of consciousness or head trauma however she was unable to even get up prompting EMS call with their evaluation notable for oxygenation 68% on room air with patient reporting that she does not normally wear home oxygen however her records indicate that she has been chronically hypoxic with respiratory failure requiring supplementation previously with reported mild cough, nonproductive with fever and chills prompting ED evaluation. states he felt his baseline and has not been ill at all. He denies that they have had any ill contacts. Work-up in the ED included T101.7, heart rate 78, BP 137/65, respiratory rate 16, initially 85% on room air with improvement to 92 to 95% on 2 to 3 L nasal cannula however continued to worsen eventually increased to 8L NC to maintain even low 90s with eventual transition to BIPAP, CBC with WC 3.8, hemoglobin 12.4, platelet 127 with lymphopenia however increased immature granulocytes noted, D-dimer 1.22, CMP with sodium 135, BUN/creatinine 28/2.04, glucose 112, lactic acid 0.8, unremarkable hepatic profile, urinalysis not marked appearing, chest x-ray with no acute cardiopulmonary findings, blood culture x2 pending per ED, rapid COVID and flu testing negative. In the ED following short period even of BiPAP placement patient is able to be awoken and can answer some questions which is improving since prior. [facility] Medical History (Updated 11/30/21 @ 22:[address] Livier Whipple MD) Chronic back pain Constipation COPD (chronic obstructive pulmonary disease) Emphysema lung History of pulmonary embolism HLD (hyperlipidemia) HTN (hypertension) Stroke/cerebrovascular accident Thrombocytopenia Home Medications gemfibrozil 600 mg tablet 600 mg PO BID Check with primary doctor 03/03/19 [History Last Taken 05/06/21] phentermine 37.5 mg tablet 37.5 mg PO DAILY WT LOSS 05/06/21 [History Last Taken 05/06/21] apixaban 5 mg (74 tabs) tablets in a dose pack (Eliquis DVT-PE Treat 30D Start) See Taper PO BID #74 tabs 05/09/21 [Rx Last Taken Unknown] gabapentin 100 mg capsule 100 mg PO TID 30 days #90 caps 05/09/21 [Rx Last Taken Unknown] loperamide 2 mg tablet 2 mg PO Q6H PRN Loose Stool 11/30/21 [History Last Taken Unknown] Allergy/AdvReac Type Severity Reaction Status Date / Time No Known Allergies Allergy Verified 05/27/21 11:18 Family History (Updated 11/30/21 @ 21:[address] Daisy Rivera MD) Mother Heart disease Father Heart disease Surgical History (Updated 11/30/21 @ 21:[address] Daisy Rivera MD) Previous back surgery Social History (Updated 11/30/21 @ 21:[address] Daisy Rivera MD) household members: spouse Smoking Status: Former smoker alcohol intake: never substance use type: does not use ROS ROS Narrative Patient's who is present gives admission ROS: Admission Review of Systems: CONSTITUTIONAL: No weight loss, + fever, chills, weakness or fatigue. HEENT: Eyes: No visual loss, blurred vision, double vision or yellow sclerae. Ears, Nose, Throat: No hearing loss, sneezing, congestion, runny nose or sore throat. SKIN: No rash or itching, lesions, wounds. CARDIOVASCULAR: No chest pain, chest pressure or chest discomfort, palpitations, edema, orthopnea, syncopal events. RESPIRATORY: + shortness of breath, cough without marked sputum, occasional wheezing, No hemoptysis. GASTROINTESTINAL: + anorexia, No nausea, vomiting or diarrhea, abdominal pain, melena, BRBPR. GENITOURINARY: No dysuria, frequency, urgency or retention. NEUROLOGICAL: + Confusion, encephalopathy, wheelchair bound, chronic neuropathy, chronic debility/weakness, No headache, dizziness, syncope, paralysis, ataxia, focal weakness, change in bowel or bladder control, seizure. MUSCULOSKELETAL: + muscle, back pain, joint pain or stiffness. HEMATOLOGIC: No anemia, bleeding or bruising. LYMPHATICS: No enlarged nodes. No history of splenectomy. PSYCHIATRIC: No history of depression or anxiety. ENDOCRINOLOGIC: No reports of sweating, cold or heat intolerance. No polyuria or polydipsia. ALLERGIES: + history of rhinitis. Vital Signs Vital Signs Vital Signs: 11/30/21 20:24 11/30/21 20:28 11/30/21 20:30 Temperature 101.7 F H Temperature Source Temporal Pulse Rate 78 74 Respiratory Rate 16 16 Respiratory Effort Normal Non-Labored Respiratory Depth Normal Respiratory Pattern Normal Blood Pressure 137/65 H 137/65 H Blood Pressure Mean 89 89 Pulse Ox 85 92 90 Oxygen Delivery Method Room Air Nasal Cannula Nasal Cannula Oxygen Flow Rate (L/min) 2 2 11/30/21 20:28 Temperature 100.9 F H Temperature Source Temporal Pulse Rate 70 Respiratory Rate 16 Respiratory Effort Respiratory Depth Respiratory Pattern Blood Pressure 137/65 H Blood Pressure Mean 89 Pulse Ox 95 Oxygen Delivery Method Nasal Cannula Oxygen Flow Rate (L/min) 3 Weight Weight: 234 lb 9.149 oz Body Mass Index (BMI) 35.6 Physical Exam Narrative Physical Examination: General: Patient is lethargic, awakens to stimuli, more alert when she is awoken but very fatigued, answering some orientation questions appropriately including place, month and year but quickly falls back asleep, currently BiPAP in place, laying in the ED bed, respiratory rate mildly increased, some accessory muscle usage, evidence of distress although improving with BiPAP. Skin: Normal color, normal turgor, no icterus, no cyanosis. HEENT: AT/NC, EOM unable to be assessed well given lethargy, PERRLA, dry MM, difficult to assess carotid bruits or JVD given thickened neck and also BiPAP in place with referred sounds Lungs: Significantly diffusely diminished, increased respiratory rate, accessory muscle usage, BiPAP in place currently, respiratory distress is improving, occasional very soft distant expiratory wheeze. Heart: Tachycardic with regular rhythm; no gallop, rub audible. Abdomen: Soft, obese, NTTP, appears distended but notes this is normal, distant normal BS, difficult to assess HSM secondary to habitus. Extremities: No cyanosis, no clubbing, mild ankle edema, not markedly pitting. Neurological: Patient is lethargic, awakens to stimuli, more alert when she is awoken but very fatigued, answering some orientation questions appropriately i ncluding place, month and year but quickly falls back asleep, currently BiPAP in place, cognitive function not baseline intact; pupils equally reactive to light and accommodation, cranial nerves grossly normal but difficult assessment given lethargy, moving all 4 extremities, no focal deficits, strength severely global decrease secondary to acute presentation Psychiatric: Affect appears flat, lethargic, respiratory distress is improved, no acute evidence of depressive or anxiety feelings. Results Lab / Micro Data Result Diagrams: 11/30/21 20:50 11/30/21 20:50 Labs: Laboratory Results - last 24 hr 11/30/21 20:50: WBC 3.8 L, RBC 3.89 L, Hgb 12.4, Hct 39.4, MCV 101.3 H, MCH 31.9, MCHC 31.5 L, RDW Std Deviation 50.4 H, RDW Coeff of [place]ver[place] 13.6, Plt Count 127 L, MPV 10.1, Immature Gran % (Auto) 1.100 H, Neut % (Auto) 73.7 H, Lymph % (Auto) 13.5 L, [place] % (Auto) 11.4 H, Eos % (Auto) 0.0, Baso % (Auto) 0.3, Absolute Neuts (auto) 2.8, Absolute Lymphs (auto) 0.51 L, Nucleated RBC % 0, Differential Comment SCANNED 11/30/21 20:50: D-Dimer Quant (PE/DVT) 1.22 H* 11/30/21 20:50: Sodium 135 L, Potassium 4.7, Chloride 102, Carbon Dioxide 27.0, Anion Gap 6, BUN 28 H, Creatinine 2.04 H, Estim Creat Clear Calc 25.52, Est GFR (MDRD) Af Amer 31 L, Est GFR (MDRD) Non-Af 26 L, BUN/Creatinine Ratio 13.7, Glucose 112 H, Calcium 8.7, Total Bilirubin 0.20, Direct Bilirubin 0.09, AST 22, ALT 17, Alkaline Phosphatase 56, Troponin I High Sens 41, Total Protein 7.6, Albumin 3.7, Globulin 3.9 11/30/21 20:50: Lactic Acid 0.8 11/30/21 21:24: Urine Color Yellow, Urine Clarity Clear, Urine pH 5.0, Ur Specif ic [place] 1.020, Urine Protein 100 H, Urine Glucose (UA) Normal, Urine Ketones Negative, Urine Occult Blood 50 H, Urine Nitrite Negative, Urine Bilirubin 1 H, Urine Urobilinogen Normal, Ur Leukocyte Esterase Negative, Urine RBC 0-5 SEEN, Urine WBC 0-5 SEEN, Ur Squamous Epith Cells 0-5 SEEN, Urine Bacteria RARE, Fine Granular Casts 5-10 SEEN, Coarse Granular Casts 5-10 SEEN, Urine Mucus 0 SEEN Micro: Microbiology 11/30/21 20:59 Nasal Secretion SARS-CoV-2 & FLU Antigen (Rapid) - Final Radiology Impression Chest X-Ray 11/30/21 21:05 IMPRESSION: No acute cardiopulmonary disease or major interval change. Electronically Signed: Shay Lombardo DO at 21:53 EDT Reading Location ID and State: [facility] / [place] Tel [phone], Service support , Assessment & Plan Assessment/Plan (1) Generalized weakness: (2) Hypoxia: (3) Viral syndrome: PLAN: Plan The patient is a 71 y/o F w/ PMHx: COPD with Chronic Hypoxic Respiratory Failure q HS only with suspected YESSY, HTN, HLD, Hx PE, Hx CVA, Chronic thrombocytopenia, Chronic back pain, Obesity, Chronically debilitated and wheelchair bound who presents to the [facility] ED on 11/30/21 with history of mechanical fall with significant weakness reporting that she was attempting to transfer however her legs gave out with no injury upon her fall, loss of consciousness or head trauma however she was unable to even get up prompting EMS call with their evaluation notable for oxygenation 68% on room air with patient reporting that she does not normally wear home oxygen however her records indicate that she has been chron ically hypoxic with respiratory failure requiring supplementation previously with reported mild cough, nonproductive with fever and chills prompting ED evaluation. #1. Acute Encephalopathy secondary to Acute Hypoxic and Hypercarbic Respiratory Failure (chart reports chronic hypoxic respiratory failure q HS only but patient denies) secondary to Acute viral syndrome and concurrent resulting Acute on Chronic COPD Exacerbation with associated Failure to thrive in adult with generalized weakness, fall: We will admit to ICU to be cautious given worsening hypoxia in the ED now up to 8L NC, transitioning to BIPAP now, will request ICU physician involvement, maintain on fall precautions, continue oxygen supplementation, will obtain respiratory full viral panel as well as COVID PCR to be cautious although rapid was negative, initiate IV solumedrol, continue as noted treatment of COPD with ATC DuoNeb therapies and as needed albuterol, judiciously hydrate, encourage head of bed, I-S, PT/OT/case management consultation for discharge planning. We will additionally also plan repeat chest x-ray in a.m. following overnight hydration to assure no developing pneumonia. #2. Acute kidney injury: Secondary to likely acute presentation number 1 and certainly could have progressing renal disease as no repeat baseline was performed after last noted 05/09/2021 with hospitalization just prior to that. Admission BUN/Cr 28/2.04, prior baseline creatinine noted to be 0.8-1.1 although patient did have admission in April 2021 with acute kidney injury at that time and upon discharge creatinine 1.39 on 05/09/2021. Will continue to hydrate, hold nephrotoxic regimen and trend CMP. If no improvement would obtain renal ultrasound and FeNa assessment if appropriate. #3. Chronic thrombocytopenia, unclear specific etiology: Admission platelets 127, most recently had normal value 05/09/2021 platelet 175 but review of re 3 cords patient does transiently decrease 120-140, continue to trend. #4. Hypertension: Previous list noting lisinopril?hydrochlorothiazide 20-25 mg once daily however from recent medication listing not filled recently although given acute kidney injury would hold at this time, PRN hydralazine. #5. Hyperlipidemia: We will continue patient home gemfibrozil regimen. #6. History CVA: We will continue patient home Eliquis, reinitiate hypertensive regimen if appropriate and once acute kidney injury resolved or use alternate agent that is not nephrotoxic, not on statin therapy but on gemfibrozil, no diabetic history. #7. Chronic back pain: We will continue patient home low-dose gabapentin regimen, encourage positional changes, fall precautions. #8. History VTE, pulmonary emboli: We will continue patient home Eliquis regimen. #9. Obesity: Weight loss and lifestyle changes encouraged. #10. DVT prophylaxis: SCDs, continue home Eliquis regimen. #11. CODE status: Patient SHARON is her who is present and living will is currently in. Discussed CODE status at length including difference between FULL code, DNR-CCA and DNR-CC status. Following discussions about the differences in these status, requested Full Code status. Advanced Care Planning Face to Face Time: 16 minutes. Charges/Coding Visit Charges Inpatient E&M: 94204 Init Hosp L3 Procedures Hospitalists Procedures: 42671 Advncd Care Plan 30 Min
--- NOTE | 2021-11-30 22:31 | ED.RN ---
CALLED REPORT TO KRISH IN ICU.
[2021-11-30] MEDS: 0.9% Normal Saline 1,000 ML 100 ML IV (23:11)
[2021-12-01] VITALS (40 sets, daily range): BP systolic 49–156; BP diastolic 39–97; PULSE 51–119; RESP 11–27; TEMP 35.9–38.2; O2SAT 91–100
[2021-12-01] MEDS: MethylPREDNISolone 125 MG/2 ML Vial IV (00:08)
[2021-12-01] MEDS: CLARIFY ORDER 1 EACH NOTE (01:51)
[2021-12-01 01:52] LABS: Allen Test POS; Blood Gas Specimen Type ART; O2 Delivery Device Nasal Can; SITE R RADIAL
[2021-12-01 01:53] LABS: Bicarbonate 29.5 mmol/L (22-26); PO2 77 mmHG (75-100); SO2 88 % (95-99); Time Given 2212; Total Carbon Dioxide 33 mmol/L; pCO2 98.9 mmHg (35-45); pH 7.08 (7.35-7.45)
[2021-12-01 02:10] LABS: M R Staph aureus DNA By PCR Negative (Negative); Probe Check PASS; Specimen Processing Control PASS
[2021-12-01 02:21] LABS: Allen Test Positive; Base Excess -2 mmol/L (-2 to +2); Blood Gas Specimen Type ART; Comment 18; FI02 50; O2 Delivery Device BiPAP; PO2 122 mmHG (75-100); RR 18; SITE R Brach; SO2 96 % (95-99); Total Carbon Dioxide 32 mmol/L; pCO2 106.1 mmHg (35-45); pH 7.04 (7.35-7.45)
[2021-12-01 04:01] LABS: Allen Test Positive; Base Excess -3 mmol/L (-2 to +2); Bicarbonate 27.4 mmol/L (22-26); Blood Gas Specimen Type ART; FI02 45; O2 Delivery Device BiPAP; PO2 112 mmHG (75-100); RR 16; SITE R Radial; SO2 95 % (95-99); Total Carbon Dioxide 31 mmol/L; Vt 450; pCO2 100.2 mmHg (35-45); pH 7.05 (7.35-7.45)
[2021-12-01 05:35] LABS: Absolute Lymphocyte Count 0.39 X10^3/uL (0.83-4.51); Absolute Neutrophil Count 3.7 X10^3/uL (2.0-7.7); Basophil# 0.01 X10^3/uL; Basophil% 0.2 % (0-1); Eosinophil# 0.01 X10^3/uL; Eosinophils% 0.2 % (0-5); Hematocrit 39.2 % (37-47); Lymphocyte # 0.39 X10^3/ul (0.83-4.51); Lymphocyte % 8.8 % (19-41); Mean Corp Hgb Conc 30.6 g/dL (32-36); Mean Corpuscular Hgb 31.7 pg (27.0-32.0); Mean Corpuscular Volume 103.7 fL (81-99); Mean Platelet Vol. 9.9 fl (6.2-12.0); Monocyte# 0.14 X10^3/uL; Monocyte% 3.2 % (0-10); NRBC Flagged by Analyzer 0 % (0-5); Neutrophil # 3.74 X10^3/uL (2.7-7.7); Neutrophil % 84.2 % (47-70); POSITIVE DIFFERENTIAL YES; Platelet Count 106 K/mm3 (150-450); RBC Distribution Width CV 13.5 % (11.6-14.6); RBC Distribution Width SD 51.8 fl (35.1-43.9); Red Blood Count 3.78 M/mm3 (4.2-5.4); White Blood Count 4.4 K/mm3 (4.4-11.0)
[2021-12-01 05:36] LABS: Differential Indicated SCAN CRITERIA MET
[2021-12-01 05:53] LABS: ALB/GLOB Ratio 0.8 RATIO (0.9-2.4); AST(SGOT) 23 U/L (15-37); Alanine Aminotransfer ALT/SGPT 18 U/L (13-56); Albumin, Serum 3.3 g/dL (3.2-5.0); Alkaline Phosphatase 53 U/L (45-117); Anion Gap 3 (5-15); BUN 29 mg/dL (7-18); BUN/Creat Ratio 14.5 RATIO (10-20); Calcium,Total 8.4 mg/dL (8.5-10.1); Chloride 105 mmol/L (98-107); EST Glomerular Filtration Rate 26 mL/min (>60); Est Glom Filt Rate - Afr Amer 32 mL/min (>60); Estimated Creatinine Clearance 26.03 ml/min; Glucose 154 mg/dL (74-106); Potassium 5.7 mmol/L (3.5-5.1); Protein, Total 7.3 g/dL (6.4-8.2); Sodium Level 136 mmol/L (136-145)
--- NOTE | 2021-12-01 05:55 | RAD_ITS ---
INDICATION: Dyspnea, cough EXAMINATION/TECHNIQUE: X-RAY - XR Chest 1 View COMPARISON: 11/30/2021 FINDINGS: LINES/DEVICES: None. LUNGS: Left lateral lung base opacity partially obscuring the left hemidiaphragm, new compared to the prior. No edema or effusion. No pneumothorax. MEDIASTINUM AND CARDIOVASCULAR STRUCTURES: Atherosclerotic calcifications and cardiomediastinal contours, similar to the prior. BONES AND SOFT TISSUES: Spinal fusion hardware, similar compared to the prior. No acute osseous abnormality.. RAD/Chest 1 View (Portable) IMPRESSION: Left basal lateral opacity, may represent atelectasis or infection. Electronically Signed: Rahul Langford MD at 7:41 EDT ,
[2021-12-01 06:27] LABS: Differential Comment SCANNED
[2021-12-01] MEDS: Ipratropium/Albuterol Sulfate 3 ML AMPUL.NEB INHALATION ×4 (06:55→19:15)
[2021-12-01] MEDS: Propofol 10MG/Ml 1,000 MG/100 ML Bottle 9.5 MG CONT INF ×2 (07:00→08:46)
--- NOTE | 2021-12-01 07:07 | NURSING ---
Decision made to intubate patient based on ABG results. MD at bedside at 0647 20 of etomidate given per MD order at 0649 Intubation at 0650 using glidescope. 7.5fr ET tube, 20cm at the lip. MD also placed NG tube at this time Restraints ordered and placed on patient for safety
--- NOTE | 2021-12-01 07:11 | EX.PCM.CONCC ---
Assessment & Plan Assessment/Plan (1) Acute respiratory failure with hypoxia and hypercapnia: (2) Pneumonia due to COVID-19 virus: (3) Toxic encephalopathy: (4) Renal failure: QUALIFIERS: Renal failure chronicity: acute Acute renal failure type: unspecified Qualified Code(s): N17.9 - Acute kidney failure, unspecified PLAN: Plan RECOMMENDATIONS: 1. Repeat ABG after 1 hour of mechanical ventilation 2. Transition to Decadron therapy 3. Clarify onset with family. Consult ID. Possible baricitinib versus Remdesivir 4. Okay to start tube feeds 5. Potentially obtain renal ultrasound. Monitor urine output with Silverio catheter IMPRESSIONS: 1. Acute combined respiratory failure secondary to COVID-19 pneumonia Patient failed BiPAP therapy and was subsequently intubated on 12/01/2021. Repeat ABG is currently pending. Chest x-ray shows support devices in appropriate position. Somewhat obstructed secondary to spinal hardware. Patient does appear to be developing bilateral infiltrates. Sputum culture has been sent. Initiate antibiotics if gram stain is positive. Procalcitonin will be sent. Spontaneous breathing and awakening trials per protocol. Unclear onset, so will not initiate Remdesivir or baricitinib at this time. Infectious disease can be consulted. 2. Metabolic encephalopathy Patient with significantly elevated CO2. Patient also has an element of renal failure, but BUN is not very elevated. Delirium protocol. Patient is on gabapentin at baseline and may have had some retention given renal failure. 3. Acute kidney injury Baseline creatinine appears to be 1.3. Patient up to 2 at this time. Unclear if this is related to problem #1. No indication for renal replacement therapy at this time. This does pose a relative contraindication to baricitinib and Remdesivir, but defer to infectious disease. 4. Hypertension/hyperlipidemia/chronic thrombocytopenia/obesity/history of VTE/chronic back pain status post fixation Complicates care, management, recovery and prognosis. Patient is reportedly a full code. Patient is anticoagulated at baseline with a 10A inhibitor. May need to discontinue antihypertensives completely. Lisinopril has been held secondary to acute kidney injury. TIME: 40 minutes critical care time spent addressing patient's respiratory failure, metabolic encephalopathy, acute kidney injury, review of all data and collaboration with care team HPI Consult Data Date of Consult: 12/01/21 HPI Narrative Reason for Consultation: Respiratory failure HPI Narrative: DESIRE CHAUDHRY is a 71 F, with past medical history listed below, who presents to [facility] on 11/30/2021 secondary to progressive weakness. Patient reportedly had lowered her self to the ground when her leg gave out. Patient denied any trauma. Patient had called EMS and was noted to be 68% on room air. Patient does not wear supplemental oxygen at baseline and was not reporting any dyspnea at that time. Patient had reported 2 to 3 days of similar type symptoms. Patient denied any nausea or vomiting. Patient did report a mild cough. Patient is currently anticoagulated with Eliquis secondary to history of DVT PE. Patient does carry a diagnosis of COPD. In the ER, patient was febrile at 101.7 ?F and hypoxic noted to be 80s on room air. Patient was initially placed on 2 L nasal cannula, but progressively required up to 8 L nasal cannula. Patient was not tachypneic and blood pressure was adequate. Laboratory work-up showed a white blood cell count of 3.8, hemoglobin 12.4 and platelet count of 127. D-dimer was slightly elevated at 1.22. Creatinine was elevated at 2.04. Lactate and UA were unremarkable. Chest x-ray showed no current infiltrates. Rapid COVID test and influenza test was negative. ABG showed significant hypercarbic respiratory failure with a pH of 7.083 with a PCO2 of 98 and a saturation of 87%. Patient was placed on BiPAP and then transferred to the intensive care unit. Since being in the intensive care unit, patient has had 2 additional ABGs, all with pH is less than 7.1. On my arrival, patient was on BiPAP, but barely arousable. Patient was not significantly tachypneic, but was achieving her volumes on AVAPS. Full CODE STATUS was verified in computer and with nursing and patient was subsequently urgently intubated using a glide scope (see procedure note). No additional information was able to be provided given time of day and patient condition. [facility] Medical History Chronic back pain Constipation COPD (chronic obstructive pulmonary disease) Emphysema lung History of pulmonary embolism HLD (hyperlipidemia) HTN (hypertension) Stroke/cerebrovascular accident Thrombocytopenia Home Medications gemfibrozil 600 mg tablet 600 mg PO BID Check with primary doctor 03/03/19 [History Last Taken 05/06/21] phentermine 37.5 mg tablet 37.5 mg PO DAILY WT LOSS 05/06/21 [History Last Taken 05/06/21] apixaban 5 mg (74 tabs) tablets in a dose pack (Eliquis DVT-PE Treat 30D Start) See Taper PO BID #74 tabs 05/09/21 [Rx Last Taken Unknown] gabapentin 100 mg capsule 100 mg PO TID 30 days #90 caps 05/09/21 [Rx Last Taken Unknown] loperamide 2 mg tablet 2 mg PO Q6H PRN Loose Stool 11/30/21 [History Last Taken Unknown] Allergy/AdvReac Type Severity Reaction Status Date / Time No Known Allergies Allergy Verified 05/27/21 11:18 Family History Mother Heart disease Father Heart disease Surgical History Previous back surgery Social History household members: spouse Smoking Status: Former smoker alcohol intake: never substance use type: does not use ROS Review of Systems ROS Unobtainable: due to endotracheal tube and due to mental status Physical Exam Const General Appearance: patient mechanically ventilated Orientation / Consciousness: obtunded Nutritional Appearance: obese HEENT normocephalic Mouth: endotracheal tube in place and OG tube in place Eyes PERRL, EOMs intact bilaterally and conjunctivae normal Eyes Narrative: Slight scleral injection Neck no lymphadenopathy and no JVD Resp Effort and Inspection: prolonged expiratory phase; Negative for uses accessory muscles Auscultation: diminished lung sounds; Negative for rales, rhonchi or wheezes Cardio regular rate, regular rhythm, S1 normal heart sound, S2 normal heart sound, no murmurs, no rub and no gallops GI normal to inspection, nondistended, normoactive bowel sounds Extremity General Extremity: Negative for clubbing or edema Skin no rashes or lesions noted Neuro Neuro Narrative: Spontaneous movement of all extremities. Sensation intact. Not following commands. Psych Mood & Affect: blunted affect Medical Records Data Attestation: I reviewed the patient's medical records Medical records narrative: Patient has required supplemental oxygen previously and was seen in our office. Patient subsequently has been weaned from oxygen and was following up as needed. Patient's last pulmonary function test was in 2014 showing an isolated reduction in diffusing capacity with preserved spirometry and lung volumes. Lab / Micro Data Attestation: I reviewed the patient's lab results. Result Diagrams: 12/01/21 05:20 12/01/21 05:20 Labs: Laboratory Results - last 24 hr 11/30/21 20:50: WBC 3.8 L, RBC 3.89 L, Hgb 12.4, Hct 39.4, MCV 101.3 H, MCH 31.9, MCHC 31.5 L, RDW Std Deviation 50.4 H, RDW Coeff of Alverto 13.6, Plt Count 127 L, MPV 10.1, Immature Gran % (Auto) 1.100 H, Neut % (Auto) 73.7 H, Lymph % (Auto) 13.5 L, [place] % (Auto) 11.4 H, Eos % (Auto) 0.0, Baso % (Auto) 0.3, Absolute Neuts (auto) 2.8, Absolute Lymphs (auto) 0.51 L, Nucleated RBC % 0, Differential Comment SCANNED, Diff Path Review September foll 11/30/21 20:50: D-Dimer Quant (PE/DVT) 1.22 H* 11/30/21 20:50: Sodium 135 L, Potassium 4.7, Chloride 102, Carbon Dioxide 27.0, Anion Gap 6, BUN 28 H, Creatinine 2.04 H, Estim Creat Clear Calc 25.52, Est GFR (MDRD) Af Amer 31 L, Est GFR (MDRD) Non-Af 26 L, BUN/Creatinine Ratio 13.7, Glucose 112 H, Calcium 8.7, Total Bilirubin 0.20, Direct Bilirubin 0.09, AST 22, ALT 17, Alkaline Phosphatase 56, Troponin I High Sens 41, Total Protein 7.6, Albumin 3.7, Globulin 3.9 11/30/21 20:50: Lactic Acid 0.8 11/30/21 21:24: Urine Color Yellow, Urine Clarity Clear, Urine pH 5.0, Ur Specific [place] 1.020, Urine Protein 100 H, Urine Glucose (UA) Normal, Urine Ketones Negative, Urine Occult Blood 50 H, Urine Nitrite Negative, Urine Bilirubin 1 H, Urine Urobilinogen Normal, Ur Leukocyte Esterase Negative, Urine RBC 0-5 SEEN, Urine WBC 0-5 SEEN, Ur Squamous Epith Cells 0-5 SEEN, Urine Bacteria RARE, Fine Granular Casts 5-10 SEEN, Coarse Granular Casts 5-10 SEEN, Urine Mucus 0 SEEN 11/30/21 23:45: MRSA (PCR) Negative 12/01/21 01:50: COVID-19 (NICOLE) Detected 12/01/21 05:20: WBC 4.4, RBC 3.78 L, Hgb 12.0, Hct 39.2, MCV 103.7 H, MCH 31.7, MCHC 30.6 L, RDW Std Deviation 51.8 H, RDW Coeff of Alverto 13.5, Plt Count 106 L, MPV 9.9, Immature Gran % (Auto) 3.400 H, Neut % (Auto) 84.2 H, Lymph % (Auto) 8.8 L, [place] % (Auto) 3.2, Eos % (Auto) 0.2, Baso % (Auto) 0.2, Absolute Neuts (auto) 3.7, Absolute Lymphs (auto) 0.39 L, Nucleated RBC % 0, Differential Comment SCANNED 12/01/21 05:20: Sodium 136, Potassium 5.7 H, Chloride 105, Carbon Dioxide 28.0, Anion Gap 3 L, BUN 29 H, Creatinine 2.00 H, Estim Creat Clear Calc 26.03, Est GFR (MDRD) Af Amer 32 L, Est GFR (MDRD) Non-Af 26 L, BUN/Creatinine Ratio 14.5, Glucose 154 H, Calcium 8.4 L, Total Bilirubin 0.10 L, AST 23, ALT 18, Alkaline Phosphatase 53, Total Protein 7.3, Albumin 3.3, Globulin 4.0, Albumin/Globulin Ratio 0.8 L Micro: Microbiology 12/01/21 01:50 Mucosa - Nasopharyngeal Respiratory Panel (PCR) - Final 11/30/21 20:59 Nasal Secretion SARS-CoV-2 & FLU Antigen (Rapid) - Final ABG Data ABG results: ABG 11/30/21 11/30/21 11/30/21 22:12 22:12 22:20 Specimen Type Cancelled ART Cancelled Sample Site Cancelled R RADIAL Cancelled pH Cancelled 7.08 L* Cancelled Bicarbonate Actual Cancelled 29.5 H Cancelled Total CO2 Cancelled 33 Cancelled Base Excess Cancelled -0 Cancelled O2 Saturation Cancelled 88 L Cancelled O2 % Cancelled Cancelled ABG pCO2 Cancelled 98.9 H* Cancelled ABG pO2 Cancelled 77 Cancelled Noman Test Cancelled POS Cancelled Respiration Rate Cancelled Cancelled O2 Delivery Device Cancelled Nasal Can Cancelled Liter Flow Cancelled 6.0 Cancelled Minute Volume Cancelled Cancelled Vent Mode Cancelled Cancelled Inspiratory Time Cancelled Cancelled Expiratory Time Cancelled Cancelled Tidal Volume Cancelled Cancelled Mean Airway Pressure Cancelled Cancelled POC PEEP Cancelled Cancelled Peak Inspir Pressure Cancelled Cancelled POC Pressure Suppt Cancelled Cancelled Pressure Control Cancelled Cancelled Pressure High Cancelled Cancelled Pressure Low Cancelled Cancelled Time High Cancelled Cancelled Time Low Cancelled Cancelled EPAP Cancelled Cancelled IPAP Cancelled Cancelled Blood Gas Comments Cancelled Cancelled Crit Call To/Read Back Cancelled Yes Cancelled Blood Gas Notified Whom Cancelled DR HUFF Cancelled Blood Gas Notified Time Cancelled 2212 Cancelled Clinical Comments Cancelled Cancelled 12/01/21 12/01/21 02:16 03:52 Specimen Type ART ART Sample Site R Brach R Radial pH 7.04 L* 7.05 L* Bicarbonate Actual 29.0 H 27.4 H Total CO2 32 31 Base Excess -2 -3 L O2 Saturation 96 95 O2 % 50 45 ABG pCO2 106.1 H* 100.2 H* ABG pO2 122 H 112 H Noman Test Positive Positive Respiration Rate 18 16 O2 Delivery Device BiPAP BiPAP Liter Flow Minute Volume Vent Mode Inspiratory Time Expiratory Time Tidal Volume 450 Mean Airway Pressure POC PEEP Peak Inspir Pressure POC Pressure Suppt Pressure Control Pressure High Pressure Low Time High Time Low EPAP IPAP Blood Gas Comments Crit Call To/Read Back Yes Yes Blood Gas Notified Whom karissa white Karissa,White Blood Gas Notified Time Clinical Comments 18 Attestation: I personally reviewed and interpreted this ABG as follows: Interpretation: Severe respiratory acidosis with increased AA gradient and partial compensation with metabolic alkalosis Rhythm Strip Rhythm Strip: Sinus Rhythm Rate: 68 Radiology Impression Chest X-Ray 11/30/21 21:05 IMPRESSION: No acute cardiopulmonary disease or major interval change. Electronically Signed: Shay Lombardo DO at 21:53 EDT Reading Location ID and State: [address] [place] [address] Tel [phone], Service support , Charges/Coding Procedures Hospitalists Procedures: [id number] [facility]
[2021-12-01 07:56] LABS: CRP 4.11 mg/L (0.0-3.0); Ferritin 79 ng/mL (8-252); LDH 198 U/L (84-246)
[2021-12-01 08:08] LABS: BNP,B-Type NATRIURETIC PEPTIDE 266.5 pg/mL (0-100)
[2021-12-01 08:16] LABS: Allen Test Positive; Base Excess -3 mmol/L (-2 to +2); Bicarbonate 23.9 mmol/L (22-26); Blood Gas Specimen Type ART; FI02 45; Mode AC; O2 Delivery Device Adult Vent; PEEP 5; PO2 90 mmHG (75-100); RR 14; SITE L Radial; SO2 95 % (95-99); Total Carbon Dioxide 26 mmol/L; Vt 450; pCO2 53.1 mmHg (35-45); pH 7.26 (7.35-7.45)
[2021-12-01] MEDS: 0.9% Normal Saline 1,000 ML 100 ML IV ×2 (08:48→17:04)
[2021-12-01] MEDS: Etomidate 20 MG/10 ML Vial IV (08:52)
[2021-12-01 09:21] LABS: CPK Total, Creatine Kinase 208 U/L (26-192); Triglycerides 79 mg/dL
--- NOTE | 2021-12-01 09:28 | PCM.OP.PRO ---
Procedure Report Date of Procedure: 12/01/21 Intubation Indication: Acute combined respiratory failure Consent was obtained from: Emergent The patient was placed in the appropriate sniffing position. Preoxygenated sedation via BiPAP was provided for a minimum of 3 minutes. The patient had continuous cardiac as well as pulse oximetry monitoring during the procedure. Procedure sedation was provided by the administration of 20 mg of etomidate. Video laryngoscopy was then performed using a number 4 blade, which revealed a grade 1 view. A 7.5 mm endotracheal tube was visualized advancing between the cords to the level of 24 cm at the lip. The stylette was then removed and discarded. Tube placement was confirmed by fogging in the tube along with equal and bilateral breath sounds. Colorimetric change was visualized on the CO2 meter. The cuff was then inflated and the tube secured using a commercially available device. A good pulse oximetry waveform was seen on the monitor throughout the procedure. A portable chest x-ray has been ordered to confirm appropriate placement. The patient tolerated the procedure well.
[2021-12-01 10:07] LABS: Procalcitonin 0.21 ng/mL (0.00-0.09)
[2021-12-01] MEDS: Chlorhexidine 15 ML PO ×2 (10:38→22:01)
--- NOTE | 2021-12-01 10:38 | PN.HOSP_ITS ---
Subjective Subjective Intubated and sedated, significant improvement in pH after intubation Objective Data Objective Data Vital Signs: Vital Signs Temp Pulse Resp BP Pulse Ox O2 Del Method O2 Flow Rate 96.6 F L 100 18 156/86 H 100 Mechanical Ventilator 8 12/01/21 04:00 12/01/21 07:00 12/01/21 07:00 12/01/21 07:00 12/01/21 07:00 12/01/21 07:00 11/30/21 22:13 FiO2 35 12/01/21 07:50 Oxygen Flow Rate (L/min) 8 Oxygen Delivery Method Mechanical Ventilator Weight: 232 lb 2.348 oz Body Mass Index (BMI) 35.2 Intake & Output: Intake and Output for Last 24 Hours 11/30/21 12/01/21 12/02/21 03:59 03:59 03:59 Intake Total 1977.48 / Output Total 0 / 0 / Balance 0 / 0 1947.48 / 48 Lab / Micro Data Result Diagrams: 12/01/21 05:20 12/01/21 05:20 Labs: Laboratory Results - last 24 hr 11/30/21 20:50: WBC 3.8 L, RBC 3.89 L, Hgb 12.4, Hct 39.4, MCV 101.3 H, MCH 31.9, MCHC 31.5 L, RDW Std Deviation 50.4 H, RDW Coeff of Alverto 13.6, Plt Count 127 L, MPV 10.1, Immature Gran % (Auto) 1.100 H, Neut % (Auto) 73.7 H, Lymph % (Auto) 13.5 L, [place] % (Auto) 11.4 H, Eos % (Auto) 0.0, Baso % (Auto) 0.3, Absolute Neuts (auto) 2.8, Absolute Lymphs (auto) 0.51 L, Nucleated RBC % 0, Differential Comment SCANNED, Diff Path Review September11/30/21 20:50: D-Dimer Quant (PE/DVT) 1.22 H* 11/30/21 20:50: Sodium 135 L, Potassium 4.7, Chloride 102, Carbon Dioxide 27.0, Anion Gap 6, BUN 28 H, Creatinine 2.04 H, Estim Creat Clear Calc 25.52, Est GFR (MDRD) Af Amer 31 L, Est GFR (MDRD) Non-Af 26 L, BUN/Creatinine Ratio 13.7, Glucose 112 H, Calcium 8.7, Total Bilirubin 0.20, Direct Bilirubin 0.09, AST 22, ALT 17, Alkaline Phosphatase 56, Troponin I High Sens 41, Total Protein 7.6, Albumin 3.7, Globulin 3.9 11/30/21 20:50: Lactic Acid 0.8 11/30/21 20:50: Ferritin 79, Lactate Dehydrogenase 198, C-React Prot Ext Range 4.11 H 11/30/21 21:24: Urine Color Yellow, Urine Clarity Clear, Urine pH 5.0, Ur Specific [place] 1.020, Urine Protein 100 H, Urine Glucose (UA) Normal, Urine Ketones Negative, Urine Occult Blood 50 H, Urine Nitrite Negative, Urine Bilirubin 1 H, Urine Urobilinogen Normal, Ur Leukocyte Esterase Negative, Urine RBC 0-5 SEEN, Urine WBC 0-5 SEEN, Ur Squamous Epith Cells 0-5 SEEN, Urine Bacteria RARE, Fine Granular Casts 5-10 SEEN, Coarse Granular Casts 5-10 SEEN, Urine Mucus 0 SEEN 11/30/21 23:45: MRSA (PCR) Negative 12/01/21 01:50: COVID-19 (NICOLE) Detected 12/01/21 05:20: B-Natriuretic Peptide 266.5 H 12/01/21 05:20: WBC 4.4, RBC 3.78 L, Hgb 12.0, Hct 39.2, MCV 103.7 H, MCH 31.7, MCHC 30.6 L, RDW Std Deviation 51.8 H, RDW Coeff of Alverto 13.5, Plt Count 106 L, MPV 9.9, Immature Gran % (Auto) 3.400 H, Neut % (Auto) 84.2 H, Lymph % (Auto) 8.8 L, [place] % (Auto) 3.2, Eos % (Auto) 0.2, Baso % (Auto) 0.2, Absolute Neuts (auto) 3.7, Absolute Lymphs (auto) 0.39 L, Nucleated RBC % 0, Differential Comment SCANNED 12/01/21 05:20: Sodium 136, Potassium 5.7 H, Chloride 105, Carbon Dioxide 28.0, Anion Gap 3 L, BUN 29 H, Creatinine 2.00 H, Estim Creat Clear Calc 26.03, Est GFR (MDRD) Af Amer 32 L, Est GFR (MDRD) Non-Af 26 L, BUN/Creatinine Ratio 14.5, Glucose 154 H, Calcium 8.4 L, Total Bilirubin 0.10 L, AST 23, ALT 18, Alkaline Phosphatase 53, Total Protein 7.3, Albumin 3.3, Globulin 4.0, Albumin/Globulin Ratio 0.8 L 12/01/21 05:20: Total Creatine Kinase 208 H, Triglycerides 79 12/01/21 09:15: Procalcitonin 0.21 H Micro: Microbiology 12/01/21 07:01 Sputum, Induced/Lukens Gram Stain - Preliminary 11/30/21 06:20 Urine, Clean Catch Legionella Antigen - Final 11/30/21 06:20 Urine, Clean Catch Streptococcus pneumoniae Antigen (M - Final 12/01/21 01:50 Mucosa - Nasopharyngeal Respiratory Panel (PCR) - Final 11/30/21 20:59 Nasal Secretion SARS-CoV-2 & FLU Antigen (Rapid) - Final ABG Data ABG results: ABG 11/30/21 11/30/21 11/30/21 22:12 22:12 22:20 Specimen Type Cancelled ART Cancelled Sample Site Cancelled R RADIAL Cancelled pH Cancelled 7.08 L* Cancelled Bicarbonate Actual Cancelled 29.5 H Cancelled Total CO2 Cancelled 33 Cancelled Base Excess Cancelled -0 Cancelled O2 Saturation Cancelled 88 L Cancelled O2 % Cancelled Cancelled ABG pCO2 Cancelled 98.9 H* Cancelled ABG pO2 Cancelled 77 Cancelled Noman Test Cancelled POS Cancelled Respiration Rate Cancelled Cancelled O2 Delivery Device Cancelled Nasal Can Cancelled Liter Flow Cancelled 6.0 Cancelled Minute Volume Cancelled Cancelled Vent Mode Cancelled Cancelled Inspiratory Time Cancelled Cancelled Expiratory Time Cancelled Cancelled Tidal Volume Cancelled Cancelled Mean Airway Pressure Cancelled Cancelled POC PEEP Cancelled Cancelled Peak Inspir Pressure Cancelled Cancelled POC Pressure Suppt Cancelled Cancelled Pressure Control Cancelled Cancelled Pressure High Cancelled Cancelled Pressure Low Cancelled Cancelled Time High Cancelled Cancelled Time Low Cancelled Cancelled EPAP Cancelled Cancelled IPAP Cancelled Cancelled Blood Gas Comments Cancelled Cancelled Crit Call To/Read Back Cancelled Yes Cancelled Blood Gas Notified Whom Cancelled DR HUFF Cancelled Blood Gas Notified Time Cancelled 2212 Cancelled Clinical Comments Cancelled Cancelled 12/01/21 12/01/21 12/01/21 02:16 03:52 08:07 Specimen Type ART ART ART Sample Site R Brach R Radial L Radial pH 7.04 L* 7.05 L* 7.26 L Bicarbonate Actual 29.0 H 27.4 H 23.9 Total CO2 32 31 26 Base Excess -2 -3 L -3 L O2 Saturation 96 95 95 O2 % 50 45 45 ABG pCO2 106.1 H* 100.2 H* 53.1 H ABG pO2 122 H 112 H 90 Noman Test Positive Positive Positive Respiration Rate 18 16 14 O2 Delivery Device BiPAP BiPAP Adult Vent Liter Flow Minute Volume Vent Mode AC Inspiratory Time Expiratory Time Tidal Volume 450 450 Mean Airway Pressure POC PEEP 5 Peak Inspir Pressure POC Pressure Suppt Pressure Control Pressure High Pressure Low Time High Time Low EPAP IPAP Blood Gas Comments Crit Call To/Read Back Yes Yes Blood Gas Notified Whom white ,White Blood Gas Notified Time Clinical Comments 18 Radiography Diagnostic Testing: Radiology Impression Chest X-Ray 11/30/21 21:05 IMPRESSION: No acute cardiopulmonary disease or major interval change. Electronically Signed: Shay Lombardo DO at 21:53 EDT , Chest X-Ray 12/01/21 05:55 IMPRESSION: Left basal lateral opacity, may represent atelectasis or infection. Electronically Signed: Rahul Langford MD at 7:41 EDT , Rhythm Strip Rhythm Strip: Sinus Rhythm Rate: 68 Physical Exam Const General Appearance: intubated and patient mechanically ventilated HEENT normocephalic Eyes PERRL and conjunctivae normal Neck supple and no JVD Resp normal respiratory effort, no retractions and no use of accessory muscles Auscultation: diminished lung sounds; Negative for crackles, rales, rhonchi or wheezes Cardio regular rate, regular rhythm, S1 normal heart sound, S2 normal heart sound and no murmurs GI soft to palpation and non-distended; Negative for hepatosplenomegaly Extremity no clubbing, cyanosis or edema Skin no rashes or lesions noted Neuro Sensorium / Orientation: sedated on vent Psych Appearance: intubated Assessment & Plan Assessment/Plan (1) Generalized weakness: (2) Hypoxia: (3) Viral syndrome: PLAN: Plan 1. Acute encephalopathy secondary to acute hypoxic and hypercapnic respiratory failure secondary to COVID complicated by acute on chronic COPD exacerbation/RYLEY ? She was intubated this morning, appreciate pulmonology assistance ? Continue with Decadron as she does have an RYLEY no baricitinib hold her remdesivir she is already intubated and there is uncertainty as to how long symptoms have been going on ? Unsure whether or not she is ever been vaccinated ? Continue with Eliquis and inhaler ? Baseline creatinine is around 1 and currently she is at 2, will continue to monitor 2. HTN/HLD/history of CVA/obesity ? Blood pressures are stable ? We will monitor blood pressures and if necessary add more medications at this time she does have hydralazine and as needed available ? Continue with gemfibrozil ? BMI of 35.2, will discuss lifestyle modifications when extubated 3. History of PE ? Continue with her home Eliquis DVT: Eliquis Charges/Coding Visit Charges Inpatient E&M: 66478 Subs Hosp L2
[2021-12-01] MEDS: dexAMETHasone 10 MG/ML Vial 6 MG IV (11:16)
[2021-12-01] MEDS: Insulin Lispro 100 UNIT/ML INSULN.PEN SC ×2 (11:17→23:52)
[2021-12-01] MEDS: 0.9% Saline Lock 10 ML Syringe IV (11:17)
[2021-12-01 13:36] LABS: Bedside Glucose 173 mg/dL (74-106)
[2021-12-01] MEDS: Gabapentin 100 MG Capsule NG ×2 (14:03→22:00)
[2021-12-01] MEDS: Vital High Protein 1,000 ML 20 ML GT (14:03)
[2021-12-01 17:05] LABS: Bedside Glucose 138 mg/dL (74-106)
[2021-12-01] MEDS: Propofol 10MG/Ml 1,000 MG/100 ML Bottle 15.8 MG CONT INF (17:05)
[2021-12-01] MEDS: Propofol 10MG/Ml 1,000 MG/100 ML Bottle 12.6 MG CONT INF (19:40)
[2021-12-01] MEDS: APIXABAN 5 MG TABLET NG (22:00)
[2021-12-01] MEDS: Gemfibrozil 600 MG Tablet NG (22:00)
[2021-12-02] VITALS (39 sets, daily range): BP systolic 78–134; BP diastolic 61–102; PULSE 58–99; RESP 14–25; TEMP 37.6–37.9; O2SAT 88–97
[2021-12-02] MEDS: Dexmedetomidine 1,000 mcg in 0.9% NS 240 mL 26.3 MCG CONT INF (01:20)
[2021-12-02 01:26] LABS: Bedside Glucose 155 mg/dL (74-106)
[2021-12-02] MEDS: 0.9% Normal Saline 1,000 ML 100 ML IV ×3 (02:41→21:34)
[2021-12-02 03:26] LABS: Absolute Lymphocyte Count 0.66 X10^3/uL (0.83-4.51); Absolute Neutrophil Count 4.3 X10^3/uL (2.0-7.7); Hematocrit 34.1 % (37-47); Hemoglobin 11.3 g/dL (12.0-15.0); Lymphocyte # 0.66 X10^3/ul (0.83-4.51); Lymphocyte % 12.2 % (19-41); Mean Corp Hgb Conc 33.1 g/dL (32-36); Mean Corpuscular Hgb 31.8 pg (27.0-32.0); Mean Corpuscular Volume 96.1 fL (81-99); Mean Platelet Vol. 10.6 fl (6.2-12.0); Monocyte# 0.43 X10^3/uL; Monocyte% 7.9 % (0-10); NRBC Flagged by Analyzer 0 % (0-5); Neutrophil # 4.32 X10^3/uL (2.7-7.7); Neutrophil % 79.5 % (47-70); Platelet Count 116 K/mm3 (150-450); RBC Distribution Width CV 13.2 % (11.6-14.6); RBC Distribution Width SD 46.5 fl (35.1-43.9); Red Blood Count 3.55 M/mm3 (4.2-5.4); White Blood Count 5.4 K/mm3 (4.4-11.0)
[2021-12-02 03:48] LABS: Anion Gap 8 (5-15); BUN 30 mg/dL (7-18); BUN/Creat Ratio 19.7 RATIO (10-20); Calcium,Total 8.2 mg/dL (8.5-10.1); Chloride 109 mmol/L (98-107); Creatinine, Serum 1.52 mg/dL (0.55-1.02); EST Glomerular Filtration Rate 36 mL/min (>60); Est Glom Filt Rate - Afr Amer 43 mL/min (>60); Estimated Creatinine Clearance 34.24 ml/min; Glucose 118 mg/dL (74-106); Potassium 4.1 mmol/L (3.5-5.1); Sodium Level 140 mmol/L (136-145)
[2021-12-02 06:15] LABS: Allen Test Positive; Base Excess -2 mmol/L (-2 to +2); Bicarbonate 23.2 mmol/L (22-26); Blood Gas Specimen Type ART; FI02 25; Mode CPAP/PS; O2 Delivery Device Adult Vent; PEEP 5; PO2 55 mmHG (75-100); PS 5; SITE L Radial; SO2 87 % (95-99); Total Carbon Dioxide 25 mmol/L; pCO2 41.8 mmHg (35-45); pH 7.35 (7.35-7.45)
--- NOTE | 2021-12-02 06:35 | PCM.PN.INT ---
Assessment & Plan Assessment/Plan (1) Acute respiratory failure with hypoxia and hypercapnia: (2) Pneumonia due to COVID-19 virus: (3) Toxic encephalopathy: (4) Renal failure: QUALIFIERS: Renal failure chronicity: acute Acute renal failure type: unspecified Qualified Code(s): N17.9 - Acute kidney failure, unspecified PLAN: Plan RECOMMENDATIONS: 1. Initiate trial of extubation 2. Continue Decadron therapy for now 3. Hold on baricitinib or Remdesivir given rapid improvement 4. Wean oxygen as tolerated 5. Increase activity IMPRESSIONS: 1. Acute combined respiratory failure secondary to COVID-19 pneumonia Patient failed BiPAP therapy and was subsequently intubated on 12/01/2021. Patient with rapid recovery following intubation. COVID-19 typically leads to significant AA gradient issues, but patient is more consistent with a COPD/asthma exacerbation secondary to COVID-19 with hypercarbia. Patient doing very well on Decadron therapy. Will attempt trial of extubation. Wean oxygen as tolerated. Wean off Precedex after extubation 2. Metabolic encephalopathy Significantly improved. Patient with significantly elevated CO2. Patient also has an element of renal failure, but BUN is not very elevated. Delirium protocol. Patient is on gabapentin at baseline and may have had some retention given renal failure. 3. Acute kidney injury Improving. Baseline creatinine appears to be 1.3. Unclear if this is related to problem #1. No indication for renal replacement therapy at this time. 4. Hypertension/hyperlipidemia/chronic thrombocytopenia/obesity/history of VTE/chronic back pain status post fixation Complicates care, management, recovery and prognosis. Patient is reportedly a full code. Patient is anticoagulated at baseline with a 10A inhibitor. Continue to hold lisinopril given problem #3 TIME: 34 minutes critical care time spent addressing patient's respiratory failure, metabolic encephalopathy, acute kidney injury, review of all data and collaboration with care team Subjective Subjective Patient did well overnight. Patient did have some soft blood pressures that were attributed to propofol, so she was transitioned to Precedex. Patient was able to tolerate a spontaneous breathing trial this morning and was able to be extubated following my evaluation. Patient was able to tell me that she had pruritus and that she has been vaccinated against COVID-19 previously. Patient was able to tolerate tube feeds prior to spontaneous breathing trial. Objective Data Objective Data Vital Signs: Vital Signs Temp Pulse Resp BP Pulse Ox O2 Del Method O2 Flow Rate 37.6 C H 68 21 H 107/73 90 Mechanical Ventilator 8 12/02/21 06:00 12/02/21 06:00 12/02/21 06:00 12/02/21 06:00 12/02/21 06:00 12/02/21 06:00 11/30/21 22:13 FiO2 25 12/02/21 06:00 Oxygen Flow Rate (L/min) 8 Oxygen Delivery Method Mechanical Ventilator Weight: 105.3 kg Body Mass Index (BMI) 35.2 Intake & Output: Intake and Output for Last 24 Hours 11/30/21 12/01/21 12/02/21 23:59 23:59 23:59 Intake Total 3486.88 / 3535.18 1216.60 / 1216.60 Output Total 1520 / 1660 315 / 315 Balance 1966.88 / 1875.18 901.60 / 901.60 Lab / Micro Data Attestation: I reviewed the patient's lab results. Result Diagrams: 12/02/21 03:20 12/02/21 03:20 Labs: Laboratory Results - last 24 hr 11/30/21 20:50: Ferritin 79, Lactate Dehydrogenase 198, C-React Prot Ext Range 4.11 H 12/01/21 05:20: B-Natriuretic Peptide 266.5 H 12/01/21 05:20: Total Creatine Kinase 208 H, Triglycerides 79 12/01/21 09:15: Procalcitonin 0.21 H 12/01/21 11:14: POC Glucose 173 H 12/01/21 16:36: POC Glucose 138 H 12/01/21 23:51: POC Glucose 155 H 12/02/21 03:20: WBC 5.4, RBC 3.55 L, Hgb 11.3 L, Hct 34.1 L, MCV 96.1 D, MCH 31.8, MCHC 33.1 D, RDW Std Deviation 46.5 H, RDW Coeff of Alverto 13.2, Plt Count 116 L, MPV 10.6, Immature Gran % (Auto) 0.400, Neut % (Auto) 79.5 H, Lymph % (Auto) 12.2 L, [place] % (Auto) 7.9, Eos % (Auto) 0.0, Baso % (Auto) 0.0, Absolute Neuts (auto) 4.3, Absolute Lymphs (auto) 0.66 L, Nucleated RBC % 0 12/02/21 03:20: Sodium 140, Potassium 4.1, Chloride 109 H, Carbon Dioxide 23.0, Anion Gap 8, BUN 30 H, Creatinine 1.52 H, Estim Creat Clear Calc 34.24, Est GFR (MDRD) Af Amer 43 L, Est GFR (MDRD) Non-Af 36 L, BUN/Creatinine Ratio 19.7, Glucose 118 H, Calcium 8.2 L Micro: Microbiology 12/01/21 07:01 Sputum, Induced/Lukens Gram Stain - Preliminary 11/30/21 06:20 Urine, Clean Catch Legionella Antigen - Final 11/30/21 06:20 Urine, Clean Catch Streptococcus pneumoniae Antigen (M - Final 12/01/21 01:50 Mucosa - Nasopharyngeal Respiratory Panel (PCR) - Final 11/30/21 20:59 Nasal Secretion SARS-CoV-2 & FLU Antigen (Rapid) - Final ABG Data ABG results: ABG 12/01/21 12/02/21 08:07 06:11 Specimen Type ART ART Sample Site L Radial L Radial pH 7.26 L 7.35 Bicarbonate Actual 23.9 23.2 Total CO2 26 25 Base Excess -3 L -2 O2 Saturation 95 87 L O2 % 45 25 ABG pCO2 53.1 H 41.8 ABG pO2 90 55 L Noman Test Positive Positive Respiration Rate 14 O2 Delivery Device Adult Vent Adult Vent Vent Mode AC CPAP/PS Tidal Volume 450 POC PEEP 5 5 POC Pressure Suppt 5 Attestation: I personally reviewed and interpreted this ABG as follows: Interpretation: Mild respiratory acidosis with an increased AA gradient Radiography Diagnostic Testing: Radiology Impression Chest X-Ray 12/01/21 05:55 IMPRESSION: Left basal lateral opacity, may represent atelectasis or infection. Electronically Signed: Rahul Langford MD at 7:41 EDT , Rhythm Strip Rhythm Strip: Sinus Rhythm Rate: 62 Physical Exam Const alert and no apparent distress Constitutional Narrative: Comfortable on spontaneous breathing trial General Appearance: patient mechanically ventilated Nutritional Appearance: obese HEENT normocephalic, head/scalp atraumatic and moist oral mucous membranes Eyes PERRL, EOMs intact bilaterally, conjunctivae normal and no scleral icterus Neck no lymphadenopathy and no JVD Resp Effort and Inspection: prolonged expiratory phase; Negative for uses accessory muscles Auscultation: diminished lung sounds; Negative for rales, rhonchi or wheezes Cardio regular rate, regular rhythm, S1 normal heart sound, S2 normal heart sound, no murmurs, no rub and no gallops GI normal to inspection, nondistended, normoactive bowel sounds Extremity General Extremity: Negative for clubbing or edema Skin no rashes or lesions noted Neuro CN's II-XII intact bilaterally, moves all extremities and no focal motor deficits Psych cooperative and affect normal Charges/Coding Procedures Hospitalists Procedures: 00032 Critial Care 1st Hr
[2021-12-02] MEDS: Ipratropium/Albuterol Sulfate 3 ML AMPUL.NEB INHALATION ×4 (07:38→19:54)
[2021-12-02 07:55] LABS: Bedside Glucose 117 mg/dL (74-106)
--- NOTE | 2021-12-02 08:42 | PN.HOSP_ITS ---
Subjective Subjective Extubated this morning and doing well Objective Data Objective Data Vital Signs: Vital Signs Temp Pulse Resp BP Pulse Ox O2 Del Method O2 Flow Rate 99.8 F H 72 16 85/69 L 92 Nasal Cannula 3 12/02/21 08:00 12/02/21 08:00 12/02/21 08:00 12/02/21 08:00 12/02/21 08:00 12/02/21 08:00 12/02/21 08:00 FiO2 25 12/02/21 06:00 Oxygen Flow Rate (L/min) 3 Oxygen Delivery Method Nasal Cannula Weight: 235 lb 3.732 oz Body Mass Index (BMI) 35.2 Intake & Output: Intake and Output for Last 24 Hours 12/01/21 12/02/21 12/03/21 03:59 03:59 03:59 Intake Total 4631.35 / 4677.80 78.25 / 78.25 Output Total 0 / 0 1835 / 1835 200 / 200 Balance 0 / 0 2796.35 / 2842.80 -121.75 / -121.75 Lab / Micro Data Result Diagrams: 12/02/21 03:20 12/02/21 03:20 Labs: Laboratory Results - last 24 hr 12/01/21 05:20: Total Creatine Kinase 208 H, Triglycerides 79 12/01/21 09:15: Procalcitonin 0.21 H 12/01/21 11:14: POC Glucose 173 H 12/01/21 16:36: POC Glucose 138 H 12/01/21 23:51: POC Glucose 155 H 12/02/21 03:20: WBC 5.4, RBC 3.55 L, Hgb 11.3 L, Hct 34.1 L, MCV 96.1 D, MCH 31.8, MCHC 33.1 D, RDW Std Deviation 46.5 H, RDW Coeff of Alverto 13.2, Plt Count 116 L, MPV 10.6, Immature Gran % (Auto) 0.400, Neut % (Auto) 79.5 H, Lymph % (Auto) 12.2 L, [place] % (Auto) 7.9, Eos % (Auto) 0.0, Baso % (Auto) 0.0, Absolute Neuts (auto) 4.3, Absolute Lymphs (auto) 0.66 L, Nucleated RBC % 0 12/02/21 03:20: Sodium 140, Potassium 4.1, Chloride 109 H, Carbon Dioxide 23.0, Anion Gap 8, BUN 30 H, Creatinine 1.52 H, Estim Creat Clear Calc 34.24, Est GFR (MDRD) Af Amer 43 L, Est GFR (MDRD) Non-Af 36 L, BUN/Creatinine Ratio 19.7, Glucose 118 H, Calcium 8.2 L 12/02/21 06:34: POC Glucose 117 H Micro: Microbiology 12/01/21 07:01 Sputum, Induced/Lukens Gram Stain - Preliminary 12/01/21 07:01 Sputum, Induced/Lukens Respiratory Culture - Preliminary Appears to be normal respiratory hung. Further studies to follow. 11/30/21 06:20 Urine, Clean Catch Legionella Antigen - Final 11/30/21 06:20 Urine, Clean Catch Streptococcus pneumoniae Antigen (M - Final 12/01/21 01:50 Mucosa - Nasopharyngeal Respiratory Panel (PCR) - Final 11/30/21 20:59 Nasal Secretion SARS-CoV-2 & FLU Antigen (Rapid) - Final ABG Data ABG results: ABG 12/02/21 06:11 Specimen Type ART Sample Site L Radial pH 7.35 Bicarbonate Actual 23.2 Total CO2 25 Base Excess -2 O2 Saturation 87 L O2 % 25 ABG pCO2 41.8 ABG pO2 55 L Noman Test Positive O2 Delivery Device Adult Vent Vent Mode CPAP/PS POC PEEP 5 POC Pressure Suppt 5 Rhythm Strip Rhythm Strip: Sinus Rhythm Rate: 62 Physical Exam Const alert, oriented x3 and no apparent distress General Appearance: cooperative HEENT normocephalic and moist oral mucous membranes Eyes PERRL, EOMs intact bilaterally and conjunctivae normal Neck supple and no JVD Resp normal respiratory effort, no retractions and no use of accessory muscles Auscultation: diminished lung sounds; Negative for crackles, rales, rhonchi or wheezes Cardio regular rate, regular rhythm, S1 normal heart sound, S2 normal heart sound and no murmurs GI soft to palpation, non-tender and non-distended; Negative for hepatosplenomegaly Extremity no clubbing, cyanosis or edema Skin no rashes or lesions noted Neuro no focal motor deficits and no sensory deficits noted Psych affect normal Appearance: appropriate Assessment & Plan Assessment/Plan (1) Generalized weakness: (2) Hypoxia: (3) Viral syndrome: PLAN: Plan 1. Acute encephalopathy secondary to acute hypoxic and hypercapnic respiratory failure secondary to COVID complicated by acute on chronic COPD exacerbation/RYLEY ?Extubated 12/02/2021 ? Continue with Decadron as she does have an RYLEY no baricitinib or remdesivir as she is rapidly improving ? Continue with Eliquis and inhaler ? Baseline creatinine is around 1 and currently she is at 1.5 just, will continue to monitor 2. HTN/HLD/history of CVA/obesity ? Blood pressures are stable ? We will monitor blood pressures and if necessary add more medications at this time she does have hydralazine and as needed available ? Continue with gemfibrozil ? BMI of 35.2, will discuss lifestyle modifications when extubated 3. History of PE ? Continue with her home Eliquis DVT: Eliquis Charges/Coding Visit Charges Inpatient E&M: 01478 Subs Hosp L2
[2021-12-02] MEDS: Gemfibrozil 600 MG Tablet NG (09:31)
[2021-12-02] MEDS: dexAMETHasone 10 MG/ML Vial 6 MG IV (09:31)
[2021-12-02] MEDS: APIXABAN 5 MG TABLET NG (09:31)
[2021-12-02 12:40] LABS: Bedside Glucose 122 mg/dL (74-106)
[2021-12-02] MEDS: Gabapentin 100 MG Capsule NG (12:51)
--- NOTE | 2021-12-02 15:15 | CASEMGMT ---
KENYA PECK Face to Face with patient for initial transition planning/care coordination assessment. RN CM introduced self and role at [facility]. Patient sitting in chair, alert and oriented. Patient willing to participate in assessment and is able to answer all questions appropriately. Care providers, pharmacy, and demographics verified. Patient wishes to discharge home, denies need for home health at this time. Will monitor progress with therapy for further recommendations. Patient states she has no further needs or concerns at this time. CM to follow for discharge planning needs that may arise. PCP: Shea Specialists: none Preferred Pharmacy: [facility] Insurance: Nevaeh HAMM Prescription Benefit: yes Living Will/HPOA: yes, David Blount LNOK: , niece Living Arrangements: Patient lives with in at [facility] in a 2nd floor apartment with elevator. Patient states she is independent at home. Transportation: Niece DME/HHC: Patient states she has shower chair, raised toilet, grab bars, walker, wheelchair, and pulse ox at home. Patient states she prefers [employer] for DME if needed. Will monitor for home oxygen. Patient states she has had HHC in the past with [facility]. No previous SNF. Disposition Plan: Patient to discharge home with family support and follow-up plans in place. Will monitor for home oxygen and HHC pending course of treatment and progress with therapy. Cheryl ROGERS, RN, CM
[2021-12-02 15:29] LABS: Pathologist Review Reviewed
[2021-12-02 19:36] LABS: Bedside Glucose 131 mg/dL (74-106)
[2021-12-02] MEDS: Gemfibrozil 600 MG Tablet PO (21:35)
[2021-12-02] MEDS: Gabapentin 100 MG Capsule PO (21:35)
[2021-12-02] MEDS: APIXABAN 5 MG TABLET PO (21:35)
[2021-12-02 23:31] LABS: Bedside Glucose 99 mg/dL (74-106)
[2021-12-03] VITALS (22 sets, daily range): BP systolic 93–166; BP diastolic 61–91; PULSE 62–101; RESP 12–22; TEMP 37.2–37.6; O2SAT 90–95
[2021-12-03] MEDS: Gabapentin 100 MG Capsule PO ×3 (04:59→21:20)
[2021-12-03] MEDS: 0.9% Normal Saline 1,000 ML 100 ML IV (05:00)
[2021-12-03 05:11] LABS: Absolute Lymphocyte Count 0.87 X10^3/uL (0.83-4.51); Absolute Neutrophil Count 3.3 X10^3/uL (2.0-7.7); Basophil# 0.01 X10^3/uL; Basophil% 0.2 % (0-1); Hematocrit 33.5 % (37-47); Hemoglobin 10.9 g/dL (12.0-15.0); Lymphocyte # 0.87 X10^3/ul (0.83-4.51); Lymphocyte % 18.9 % (19-41); Mean Corp Hgb Conc 32.5 g/dL (32-36); Mean Corpuscular Hgb 31.9 pg (27.0-32.0); Mean Platelet Vol. 10.2 fl (6.2-12.0); Monocyte# 0.41 X10^3/uL; Monocyte% 8.9 % (0-10); NRBC Flagged by Analyzer 0 % (0-5); Neutrophil % 71.6 % (47-70); Platelet Count 113 K/mm3 (150-450); RBC Distribution Width CV 13.4 % (11.6-14.6); RBC Distribution Width SD 47.9 fl (35.1-43.9); Red Blood Count 3.42 M/mm3 (4.2-5.4); White Blood Count 4.6 K/mm3 (4.4-11.0)
[2021-12-03 05:25] LABS: Anion Gap 7 (5-15); BUN 25 mg/dL (7-18); BUN/Creat Ratio 21.4 RATIO (10-20); Calcium,Total 8.1 mg/dL (8.5-10.1); Chloride 110 mmol/L (98-107); Creatinine, Serum 1.17 mg/dL (0.55-1.02); EST Glomerular Filtration Rate 49 mL/min (>60); Est Glom Filt Rate - Afr Amer 59 mL/min (>60); Estimated Creatinine Clearance 44.49 ml/min; Glucose 89 mg/dL (74-106); Potassium 3.6 mmol/L (3.5-5.1); Sodium Level 142 mmol/L (136-145)
[2021-12-03] MEDS: Ipratropium/Albuterol Sulfate 3 ML AMPUL.NEB INHALATION ×4 (05:46→19:04)
--- NOTE | 2021-12-03 06:08 | PN.CC_ITS ---
Assessment & Plan Assessment/Plan (1) Acute respiratory failure with hypoxia and hypercapnia: (2) Pneumonia due to COVID-19 virus: (3) Toxic encephalopathy: (4) Renal failure: QUALIFIERS: Acute renal failure type: unspecified Renal failure chronicity: acute Qualified Code(s): N17.9 - Acute kidney failure, unspecified PLAN: Plan RECOMMENDATIONS: 1. Add mucolytic 2. Complete 10-day course of Decadron 3. Administer single dose of Lasix therapy 4. Wean oxygen as tolerated 5. Discontinue blood sugar checks 6. Okay to leave the intensive care unit from my perspective IMPRESSIONS: 1. Acute combined respiratory failure secondary to COVID-19 pneumonia Patient failed BiPAP therapy and was subsequently intubated on 12/01/2021. Patient with rapid recovery following intubation. COVID-19 typically leads to significant AA gradient issues, but patient is more consistent with a COPD/asthma exacerbation secondary to COVID-19 with hypercarbia. Patient doing very well on Decadron therapy. Patient has tolerated extubation well. However, secretions are an issue. Patient appears to be somewhat slightly fluid overloaded, so we will give Lasix. Patient will also be given mucolytic to help with pulmonary toileting. Patient likely okay to leave the intensive care unit from my perspective 2. Metabolic encephalopathy Significantly improved. Patient with significantly elevated CO2. Patient also has an element of renal failure, but BUN is not very elevated. Delirium protocol. Patient is on gabapentin at baseline and may have had some retention given renal failure. 3. Acute kidney injury Improving. Baseline creatinine appears to be 1.3. Unclear if this is related to problem #1. No indication for renal replacement therapy at this time. 4. Hypertension/hyperlipidemia/chronic thrombocytopenia/obesity/history of VTE/chronic back pain status post fixation Complicates care, management, recovery and prognosis. Patient is reportedly a full code. Patient is anticoagulated at baseline with a 10A inhibitor. Likely restart lisinopril tomorrow if renal function continues to improve. Patient's blood sugars have remained acceptable despite Decadron therapy. We will discontinue checks. Subjective Subjective Patient successfully extubated yesterday. Patient did well overnight. Patient has had some issues with secretions requiring as needed breathing treatments. Patient reportedly is on 1 to 3 L of nasal cannula oxygen at baseline at the assisted living per nursing. No nausea or vomiting of been reported. Objective Data Objective Data Vital Signs: Vital Signs Temp Pulse Resp BP Pulse Ox O2 Del Method O2 Flow Rate 37.3 C H 71 13 119/69 92 Nasal Cannula 1 12/03/21 05:00 12/03/21 05:46 12/03/21 05:46 12/03/21 05:00 12/03/21 05:00 12/03/21 05:00 12/03/21 05:00 FiO2 25 12/02/21 06:00 Oxygen Flow Rate (L/min) 1 Oxygen Delivery Method Nasal Cannula Weight: 106.594 kg Body Mass Index (BMI) 35.2 Intake & Output: Intake and Output for Last 24 Hours 12/01/21 12/02/21 12/03/21 23:59 23:59 23:59 Intake Total 3486.88 / 3535.18 3951.06 / 3951.06 863.33 / 863.33 Output Total 1520 / 1660 2915 / 2915 980 / 980 Balance 1966.88 / 1875.18 1036.06 / 1036.06 -116.67 / -116.67 Lab / Micro Data Attestation: I reviewed the patient's lab results. Result Diagrams: 12/03/21 05:00 12/03/21 05:00 Labs: Laboratory Results - last 24 hr 11/30/21 20:50: Diff Path Review Reviewed 12/02/21 06:34: POC Glucose 117 H 12/02/21 11:44: POC Glucose 122 H 12/02/21 16:10: POC Glucose 131 H 12/02/21 21:33: POC Glucose 99 12/03/21 05:00: WBC 4.6, RBC 3.42 L, Hgb 10.9 L, Hct 33.5 L, MCV 98.0, MCH 31.9, MCHC 32.5, RDW Std Deviation 47.9 H, RDW Coeff of Alverto 13.4, Plt Count 113 L, MPV 10.2, Immature Gran % (Auto) 0.400, Neut % (Auto) 71.6 H, Lymph % (Auto) 18.9 L, [place] % (Auto) 8.9, Eos % (Auto) 0.0, Baso % (Auto) 0.2, Absolute Neuts (auto) 3.3, Absolute Lymphs (auto) 0.87, Nucleated RBC % 0 12/03/21 05:00: Sodium 142, Potassium 3.6, Chloride 110 H, Carbon Dioxide 25.0, Anion Gap 7, BUN 25 H, Creatinine 1.17 H, Estim Creat Clear Calc 44.49, Est GFR (MDRD) Af Amer 59 L, Est GFR (MDRD) Non-Af 49 L, BUN/Creatinine Ratio 21.4 H, Glucose 89, Calcium 8.1 L Micro: Microbiology 12/01/21 07:01 Sputum, Induced/Lukens Gram Stain - Final 12/01/21 07:01 Sputum, Induced/Lukens Respiratory Culture - Preliminary Appears to be normal respiratory hung. Further studies to follow. 11/30/21 06:20 Urine, Clean Catch Legionella Antigen - Final 11/30/21 06:20 Urine, Clean Catch Streptococcus pneumoniae Antigen (M - Final 12/01/21 01:50 Mucosa - Nasopharyngeal Respiratory Panel (PCR) - Final 11/30/21 20:59 Nasal Secretion SARS-CoV-2 & FLU Antigen (Rapid) - Final ABG Data ABG results: ABG 12/02/21 06:11 Specimen Type ART Sample Site L Radial pH 7.35 Bicarbonate Actual 23.2 Total CO2 25 Base Excess -2 O2 Saturation 87 L O2 % 25 ABG pCO2 41.8 ABG pO2 55 L Noman Test Positive O2 Delivery Device Adult Vent Vent Mode CPAP/PS POC PEEP 5 POC Pressure Suppt 5 Rhythm Strip Rhythm Strip: Sinus Rhythm Rate: 66 Physical Exam Const alert and no apparent distress Constitutional Narrative: Slight conversational dyspnea. Receiving breathing treatment Nutritional Appearance: obese HEENT normocephalic, head/scalp atraumatic and moist oral mucous membranes Eyes PERRL, EOMs intact bilaterally, conjunctivae normal and no scleral icterus Eyes Narrative: Slight scleral injection Neck no lymphadenopathy and no JVD Resp Effort and Inspection: prolonged expiratory phase; Negative for uses accessory muscles Auscultation: rales bilateral base and diminished lung sounds; Negative for rhonchi or wheezes Cardio regular rate, regular rhythm, S1 normal heart sound, S2 normal heart sound, no murmurs, no rub and no gallops GI normal to inspection, nondistended, normoactive bowel sounds Extremity General Extremity: Negative for clubbing or edema Skin no rashes or lesions noted Neuro CN's II-XII intact bilaterally, moves all extremities and no focal motor deficits Psych cooperative and affect normal Mood & Affect: flat affect Charges/Coding Visit Charges Inpatient E&M: 54413 Subs Hosp L3
[2021-12-03] MEDS: guaiFENesin 1,200 MG Tablet 1200 MG PO ×2 (08:19→21:20)
[2021-12-03] MEDS: APIXABAN 5 MG TABLET PO ×2 (08:19→22:14)
[2021-12-03] MEDS: Furosemide 20 MG/2 ML VIAL IV (08:19)
[2021-12-03] MEDS: Gemfibrozil 600 MG Tablet PO ×2 (08:19→21:20)
[2021-12-03] MEDS: dexAMETHasone 10 MG/ML Vial 6 MG IV (08:21)
[2021-12-03] MEDS: Albuterol 2.5 MG/3 ML VIAL.NEB. INHALATION (08:38)
[2021-12-03] MEDS: guaiFENesin 10 ML UDC (200MG/10ML) PO ×2 (08:42→21:20)
--- NOTE | 2021-12-03 09:22 | PCM.PN.HOSP ---
Subjective Subjective Doing well, no issues overnight. She will be trialed on some Lasix today, and see if we can get her off the nasal cannula. Objective Data Objective Data Vital Signs: Vital Signs Temp Pulse Resp BP Pulse Ox O2 Del Method O2 Flow Rate 99.1 F 101 H 21 H 93/71 93 Nasal Cannula 2 12/03/21 08:00 12/03/21 09:00 12/03/21 09:00 12/03/21 09:00 12/03/21 09:00 12/03/21 09:00 12/03/21 09:00 FiO2 25 12/02/21 06:00 Oxygen Flow Rate (L/min) 2 Oxygen Delivery Method Nasal Cannula Weight: 235 lb Body Mass Index (BMI) 35.2 Intake & Output: Intake and Output for Last 24 Hours 12/02/21 12/03/21 12/04/21 03:59 03:59 03:59 Intake Total 4631.35 / 4677.80 2806.59 / 2806.59 1263.33 / 1263.33 Output Total 1835 / 1835 2600 / 2600 980 / 980 Balance 2796.35 / 2842.80 206.59 / 206.59 283.33 / 283.33 Lab / Micro Data Result Diagrams: 12/03/21 05:00 12/03/21 05:00 Labs: Laboratory Results - last 24 hr 11/30/21 20:50: Diff Path Review Reviewed 12/02/21 11:44: POC Glucose 122 H 12/02/21 16:10: POC Glucose 131 H 12/02/21 21:33: POC Glucose 99 12/03/21 05:00: WBC 4.6, RBC 3.42 L, Hgb 10.9 L, Hct 33.5 L, MCV 98.0, MCH 31.9, MCHC 32.5, RDW Std Deviation 47.9 H, RDW Coeff of Alverto 13.4, Plt Count 113 L, MPV 10.2, Immature Gran % (Auto) 0.400, Neut % (Auto) 71.6 H, Lymph % (Auto) 18.9 L, [place] % (Auto) 8.9, Eos % (Auto) 0.0, Baso % (Auto) 0.2, Absolute Neuts (auto) 3.3, Absolute Lymphs (auto) 0.87, Nucleated RBC % 0 12/03/21 05:00: Sodium 142, Potassium 3.6, Chloride 110 H, Carbon Dioxide 25.0, Anion Gap 7, BUN 25 H, Creatinine 1.17 H, Estim Creat Clear Calc 44.49, Est GFR (MDRD) Af Amer 59 L, Est GFR (MDRD) Non-Af 49 L, BUN/Creatinine Ratio 21.4 H, Glucose 89, Calcium 8.1 L Micro: Microbiology 12/01/21 07:01 Sputum, Induced/Lukens Gram Stain - Final 12/01/21 07:01 Sputum, Induced/Lukens Respiratory Culture - Preliminary Gram negative cocco bacillus 11/30/21 06:20 Urine, Clean Catch Legionella Antigen - Final 11/30/21 06:20 Urine, Clean Catch Streptococcus pneumoniae Antigen (M - Final 12/01/21 01:50 Mucosa - Nasopharyngeal Respiratory Panel (PCR) - Final 11/30/21 20:59 Nasal Secretion SARS-CoV-2 & FLU Antigen (Rapid) - Final Rhythm Strip Rhythm Strip: Sinus Rhythm Rate: 66 Physical Exam Narrative Const alert, oriented x3 and no apparent distress General Appearance: cooperative HEENT normocephalic and moist oral mucous membranes Eyes PERRL, EOMs intact bilaterally and conjunctivae normal Neck supple and no JVD Resp normal respiratory effort, no retractions and no use of accessory muscles Auscultation: diminished lung sounds with Rales at the bases; Negative for crackles, rhonchi or wheezes Cardio regular rate, regular rhythm, S1 normal heart sound, S2 normal heart sound and no murmurs GI soft to palpation, non-tender and non-distended; Negative for hepatosplenomegaly Extremity no clubbing, cyanosis or edema Skin no rashes or lesions noted Neuro no focal motor deficits and no sensory deficits noted Psych affect normal Appearance: appropriate Assessment & Plan Assessment/Plan (1) Generalized weakness: (2) Hypoxia: (3) Viral syndrome: PLAN: Plan 1. Acute encephalopathy secondary to acute hypoxic and hypercapnic respiratory failure secondary to COVID complicated by acute on chronic COPD exacerbation/RYLEY ?Extubated 12/02/2021 ? Continue with Decadron ? Renal function is improved, and she is about 3 L positive, will try to diurese ? Continue with Eliquis and inhaler ? Baseline creatinine is around 1 and currently she is at 1.17 just, will continue to monitor 2. HTN/HLD/history of CVA/obesity ? Blood pressures are stable ? We will monitor blood pressures and if necessary add more medications at this time she does have hydralazine and as needed available ? Continue with gemfibrozil ? BMI of 35.2, will discuss lifestyle modifications when extubated 3. History of PE ? Continue with her home Eliquis DVT: Eliquis Charges/Coding Visit Charges Inpatient E&M: 30141 Subs Hosp L2
[2021-12-03] MEDS: 0.9% Saline Lock 10 ML Syringe IV (21:21)
[2021-12-04] VITALS (7 sets, daily range): BP systolic 92–173; BP diastolic 59–87; PULSE 62–89; RESP 16–18; TEMP 36.2–38.3; O2SAT 85–98
[2021-12-04] MEDS: Gabapentin 100 MG Capsule PO (05:38)
[2021-12-04 05:54] LABS: Absolute Lymphocyte Count 0.42 X10^3/uL (0.83-4.51); Absolute Neutrophil Count 3.1 X10^3/uL (2.0-7.7); Basophil# 0.01 X10^3/uL; Basophil% 0.3 % (0-1); Hematocrit 34.4 % (37-47); Lymphocyte # 0.42 X10^3/ul (0.83-4.51); Lymphocyte % 10.9 % (19-41); Mean Corpuscular Hgb 31.6 pg (27.0-32.0); Mean Corpuscular Volume 98.9 fL (81-99); Mean Platelet Vol. 10.2 fl (6.2-12.0); Monocyte# 0.27 X10^3/uL; NRBC Flagged by Analyzer 0 % (0-5); Neutrophil # 3.11 X10^3/uL (2.7-7.7); POSITIVE DIFFERENTIAL YES; Platelet Count 108 K/mm3 (150-450); RBC Distribution Width CV 13.2 % (11.6-14.6); RBC Distribution Width SD 47.8 fl (35.1-43.9); Red Blood Count 3.48 M/mm3 (4.2-5.4); White Blood Count 3.8 K/mm3 (4.4-11.0)
[2021-12-04 05:59] LABS: Differential Indicated SCAN CRITERIA MET
[2021-12-04 06:06] LABS: Anion Gap 4 (5-15); BUN 26 mg/dL (7-18); BUN/Creat Ratio 21.5 RATIO (10-20); Calcium,Total 8.3 mg/dL (8.5-10.1); Chloride 105 mmol/L (98-107); Creatinine, Serum 1.21 mg/dL (0.55-1.02); EST Glomerular Filtration Rate 47 mL/min (>60); Est Glom Filt Rate - Afr Amer 56 mL/min (>60); Estimated Creatinine Clearance 43.02 ml/min; Glucose 84 mg/dL (74-106); Potassium 3.6 mmol/L (3.5-5.1); Sodium Level 140 mmol/L (136-145)
[2021-12-04 06:13] LABS: Differential Comment SCANNED
--- NOTE | 2021-12-04 06:40 | PN.CC_ITS ---
Assessment & Plan Assessment/Plan (1) Acute respiratory failure with hypoxia and hypercapnia: (2) Pneumonia due to COVID-19 virus: (3) Toxic encephalopathy: (4) Renal failure: QUALIFIERS: Renal failure chronicity: acute Acute renal failure type: unspecified Qualified Code(s): N17.9 - Acute kidney failure, unspecified PLAN: Plan RECOMMENDATIONS: 1. Add amoxicillin 2. Complete 10-day course of Decadron 3. Hold on additional Lasix for now 4. Wean oxygen as tolerated 5. Increase activity as tolerated 6. Potential discharge if able to ambulate off of supplemental oxygen IMPRESSIONS: 1. Acute combined respiratory failure secondary to COVID-19 and H flu pneumonia Patient failed BiPAP therapy and was subsequently intubated on 12/01/2021. Patient with rapid recovery following intubation. COVID-19 typically leads to significant AA gradient issues, but patient is more consistent with a COPD/asth ma exacerbation secondary to COVID-19 with hypercarbia. Patient doing very well on Decadron therapy. Patient has tolerated extubation well. Patient has had some increased secretions recently. Patient is growing rare H. influenzae, so we will treat with amoxicillin. 2. Metabolic encephalopathy Resolved. Patient with significantly elevated CO2. Patient also has an element of renal failure, but BUN is not very elevated. Delirium protocol. Okay to reinitiate baseline medications from my perspective 3. Acute kidney injury Improving. Baseline creatinine appears to be 1.3. Unclear if this is related to problem #1. No indication for renal replacement therapy at this time. 4. Hypertension/hyperlipidemia/chronic thrombocytopenia/obesity/history of VTE/chronic back pain status post fixation Complicates care, management, recovery and prognosis. Patient is reportedly a full code. Patient is anticoagulated at baseline with a 10A inhibitor. Restart lisinopril. Subjective Subjective Patient did well overnight. Patient was made MedSurg status yesterday, but was not moved secondary to room availability. Patient did have some increased blood pressures overnight. Patient's oxygenation has improved. Patient continues to have a productive cough, but no fever was noted. Patient does state that she was on lisinopril in the past. Objective Data Objective Data Vital Signs: Vital Signs Temp Pulse Resp BP Pulse Ox O2 Del Method O2 Flow Rate 37.2 C 62 18 173/87 H 98 Nasal Cannula 1 12/04/21 02:00 12/04/21 02:00 12/04/21 02:00 12/04/21 02:00 12/04/21 02:00 12/04/21 02:00 12/04/21 02:00 FiO2 25 12/02/21 06:00 Oxygen Flow Rate (L/min) 1 Oxygen Delivery Method Nasal Cannula Weight: 102 kg Body Mass Index (BMI) 35.2 Intake & Output: Intake and Output for Last 24 Hours 12/02/21 12/03/21 12/04/21 23:59 23:59 23:59 Intake Total 3951.06 / 3951.06 1743.33 / 1743.33 Output Total 2915 / 2915 2780 / 2780 350 / 350 Balance 1036.06 / 1036.06 -1036.67 / -1036.67 -350 / -350 Lab / Micro Data Attestation: I reviewed the patient's lab results. Result Diagrams: 12/04/21 05:40 12/04/21 05:40 Labs: Laboratory Results - last 24 hr 12/04/21 05:40: WBC 3.8 L, RBC 3.48 L, Hgb 11.0 L, Hct 34.4 L, MCV 98.9, MCH 31.6, MCHC 32.0, RDW Std Deviation 47.8 H, RDW Coeff of Alverto 13.2, Plt Count 108 L, MPV 10.2, Immature Gran % (Auto) 0.800, Neut % (Auto) 81.0 H, Lymph % (Auto) 10.9 L, [place] % (Auto) 7.0, Eos % (Auto) 0.0, Baso % (Auto) 0.3, Absolute Neuts (auto) 3.1, Absolute Lymphs (auto) 0.42 L, Nucleated RBC % 0, Differential Comment SCANNED, Diff Path Review September12/04/21 05:40: Sodium 140, Potassium 3.6, Chloride 105, Carbon Dioxide 31.0, Anion Gap 4 L, BUN 26 H, Creatinine 1.21 H, Estim Creat Clear Calc 43.02, Est GFR (MDRD) Af Amer 56 L, Est GFR (MDRD) Non-Af 47 L, BUN/Creatinine Ratio 21.5 H , Glucose 84, Calcium 8.3 L Micro: Microbiology 12/01/21 07:01 Sputum, Induced/Lukens Gram Stain - Final 12/01/21 07:01 Sputum, Induced/Lukens Respiratory Culture - Final Haemophilus influenzae 11/30/21 21:40 Blood Culture (Wb) - Right Hand Blood Culture - Preliminary No growth in 48 hours. 11/30/21 20:50 Blood Culture (Wb) - Anticubital Right Blood Culture - Preliminary No growth in 48 hours. 11/30/21 06:20 Urine, Clean Catch Legionella Antigen - Final 11/30/21 06:20 Urine, Clean Catch Streptococcus pneumoniae Antigen (M - Final 12/01/21 01:50 Mucosa - Nasopharyngeal Respiratory Panel (PCR) - Final 11/30/21 20:59 Nasal Secretion SARS-CoV-2 & FLU Antigen (Rapid) - Final Physical Exam Const alert and no apparent distress Constitutional Narrative: Slight conversational dyspnea. Receiving breathing treatment Nutritional Appearance: obese HEENT normocephalic, head/scalp atraumatic and moist oral mucous membranes Eyes PERRL, EOMs intact bilaterally, conjunctivae normal and no scleral icterus Neck no lymphadenopathy and no JVD Resp Effort and Inspection: prolonged expiratory phase; Negative for uses accessory muscles Auscultation: diminished lung sounds; Negative for rhonchi or wheezes Cardio regular rate, regular rhythm, S1 normal heart sound, S2 normal heart sound, no murmurs, no rub and no gallops GI normal to inspection, nondistended, normoactive bowel sounds Extremity General Extremity: Negative for clubbing or edema Skin no rashes or lesions noted Neuro CN's II-XII intact bilaterally, moves all extremities and no focal motor deficits Psych cooperative and affect normal Charges/Coding Visit Charges Inpatient E&M: 42714 Subs Hosp L2
[2021-12-04] MEDS: Ipratropium/Albuterol Sulfate 3 ML AMPUL.NEB INHALATION ×2 (07:31→11:16)
[2021-12-04] MEDS: guaiFENesin 1,200 MG Tablet 1200 MG PO (08:14)
[2021-12-04] MEDS: dexAMETHasone 4 MG Tablet 6 MG PO (08:14)
[2021-12-04] MEDS: AMOXICILLIN 500 MG CAPSULE PO (08:14)
[2021-12-04] MEDS: Lisinopril 5 MG Tablet PO (08:15)
[2021-12-04] MEDS: APIXABAN 5 MG TABLET PO (08:15)
[2021-12-04] MEDS: Gemfibrozil 600 MG Tablet PO (08:15)
[2021-12-04] MEDS: Acetaminophen 325 MG Tablet 650 MG PO (08:26)
--- NOTE | 2021-12-04 09:35 | CASEMGMT ---
Per Rasheeda ZAMBRANO, pt qualifies for 2L continuous home oxygen and pt states preference for [employer] for [employer] company. Order obtained and faxed to [employer] and pt to use e-tank already provided to [facility]. Pt has pulse ox at home and declines any further therapy. Bryon ZAMBRANO CM
--- NOTE | 2021-12-04 10:16 | DCINST_ITS ---
Discharge Instructions Diet Discharge Diet: Low fat / Low cholesterol Activity Discharge Activity: Return to Normal Activity Dressing / Incision Call your doctor if you observe: Fever of 101 or Higher, Shortness of breath, Dizziness, Fainting spells, Swelling in the ankles, Chest pain and Increased palpitations (irregular heartbeat) Follow Up Care Test Results: Test results from this visit will be discussed in further detail at your follow- up appointment, if applicable. Discharge Plan Admission Admit Date/Time: 11/30/21 22:18 Attending Provider: Teja Zeng Primary Care Provider: Matthew Valdivia Consulting Providers: Daisy Rivera ; Jesus Jolley Discharge Orders/Prescriptions Prescriptions: New amoxicillin 500 mg Capsule 500 mg PO Q12 6 Days Qty: 12 0RF dexamethasone 4 mg Tablet 6 mg PO DAILY 6 Days Qty: 9 0RF Continued gemfibrozil 600 MG tablet 600 mg PO BID phentermine 37.5 mg tablet 37.5 mg PO DAILY Label Comments: TAKE 1 TABLET BY MOUTH DAILY Eliquis DVT-PE Treat 30D Start 5 mg (74 tabs) tablets,dose pack See Taper PO BID Qty: 74 0RF Taper: Apixaban VTE Treatment 10 mg TWICE A DAY for 7 Days 5 mg TWICE A DAY for 30 Days gabapentin 100 mg Capsule 100 mg PO TID 30 Days Qty: 90 0RF loperamide 2 mg Tablet 2 mg PO Q6H PRN (Reason: Loose Stool) Referrals / Follow Up: Matthew Valdivia DO [Primary Care Provider] - Within 1 Week Disposition Disposition (needs filled in before D/C Order can be placed): Home, Self Care
--- NOTE | 2021-12-04 10:21 | PCM.DC.SUM ---
Providers Date of Admission: 11/30/21 Primary Care Physician: Dr. Matthew Valdivia, DO Consultations 11/30/21 23:00 Consult: Mohs Surgeon / Pulmonary Medicine Routine Consulting Provider: Jesus Jolley Reason for Consult: Resp failure, BIPAP started, Acute viral syndrome, COPD EMERGENT Consult: No MD Notified: Yes Date Notified: 11/30/21 Time Notified: 22:20 Method of Notification: Text Reason For Visit: RESPIRATORY FAILURE, ACUTE VIRAL SYNDROME Diagnosis Discharge Diagnosis (1) Acute respiratory failure with hypoxia and hypercapnia: Status: Acute Code(s): J96.01 - Acute respiratory failure with hypoxia; J96.02 - Acute respiratory failure with hypercapnia (2) Pneumonia due to COVID-19 virus: Status: Acute Code(s): U07.1 - COVID-19; J12.82 - Pneumonia due to coronavirus disease 2019 (3) Toxic encephalopathy: Status: Acute Code(s): G92 - Toxic encephalopathy (4) Renal failure: Status: Acute Code(s): N19 - Unspecified kidney failure Qualifiers: Renal failure chronicity: acute Acute renal failure type: unspecified Qualified Code(s): N17.9 - Acute kidney failure, unspecified Plan 1. Acute encephalopathy secondary to acute hypoxic and hypercapnic respiratory failure secondary to COVID complicated by acute on chronic COPD exacerbation/RYLEY ?Extubated 12/02/2021 ? Continue with Decadron ? Renal function is improved, and she is about 3 L positive, will try to diurese ? Continue with Eliquis and inhaler ? Baseline creatinine is around 1 and currently she is at 1.17 just, will continue to monitor 2. HTN/HLD/history of CVA/obesity ? Blood pressures are stable ? We will monitor blood pressures and if necessary add more medications at this time she does have hydralazine and as needed available ? Continue with gemfibrozil ? BMI of 35.2, will discuss lifestyle modifications when extubated 3. History of PE ? Continue with her home Eliquis DVT: Eliquis Medications at Discharge Home Medications gemfibrozil 600 mg tablet 600 mg PO BID Check with primary doctor 03/03/19 phentermine 37.5 mg tablet 37.5 mg PO DAILY WT LOSS 05/06/21 apixaban 5 mg (74 tabs) tablets in a dose pack (Eliquis DVT-PE Treat 30D Start) See Taper PO BID #74 tabs 05/09/21 gabapentin 100 mg capsule 100 mg PO TID 30 days #90 caps 05/09/21 loperamide 2 mg tablet 2 mg PO Q6H PRN Loose Stool 11/30/21 amoxicillin 500 mg capsule 500 mg PO Q12 6 days #12 caps 12/04/21 dexamethasone 4 mg tablet 6 mg PO DAILY 6 days #9 tabs 12/04/21 Hospital Course Operations None Summary of Care Provided Minutes Spent on Discharge: 45 Hospital Course: Per HPI: The patient is a 71 y/o F w/ PMHx: COPD with Chronic Hypoxic Respiratory Failure q HS only with suspected YESSY, HTN, HLD, Hx PE, Hx CVA, Chronic thrombocytopenia, Chronic back pain, Obesity, Chronically debilitated and wheelchair bound who presents to the [facility] ED on 11/30/21 with history of mechanical fall with significant weakness reporting that she was attempting to transfer however her legs gave out with no injury upon her fall, loss of consciousness or head trauma however she was unable to even get up prompting EMS call with their evaluation notable for oxygenation 68% on room air with patient reporting that she does not normally wear home oxygen however her records indicate that she has been chronically hypoxic with respiratory failure requiring supplementation previously with reported mild cough, nonproductive with fever and chills prompting ED evaluation.? states he felt his baseline and has not been ill at all.? He denies that they have had any ill contacts.? Work-up in the ED included T101.7, heart rate 78, BP 137/65, respiratory rate 16, initially 85% on room air with improvement to 92 to 95% on 2 to 3 L nasal cannula however continued to worsen eventually increased to 8L NC to maintain even low 90s with eventual transition to BIPAP, CBC with WC 3.8, hemoglobin 12.4, platelet 127 with lymphopenia however increased immature granulocytes noted, D-dimer 1.22, CMP with sodium 135, BUN/creatinine 28/2.04, glucose 112, lactic acid 0.8, unremarkable hepatic profile, urinalysis not marked appearing, chest x-ray with no acute cardiopulmonary findings, blood culture x2 pending per ED, rapid COVID and flu testing negative.? In the ED following short period even of BiPAP placement patient is able to be awoken and can answer some questions which is improving since prior. Hospital Course: 1.? Acute encephalopathy secondary to acute hypoxic and hypercapnic respiratory failure secondary to COVID and H influenza complicated by acute on chronic COPD exacerbation/RYLEY ?Extubated 12/02/2021, symptoms started on 11/26/2021 ? Continue with Decadron ? Renal function is improved, she is breathing better but does require 2 L nasal cannula continuously ? Continue with Eliquis and inhaler ? Creatinine is stable but do recommend outpatient follow-up ? Sputum cultures also growing H. influenzae so she will be on 5 days of amoxicillin as well ? I discussed with her the plan for discharge today she expressed understanding of the risk benefits going home and would like to go home today. No changes were made in her home medications, she was discharged on Decadron to complete 10 days total as well as 6 more days of amoxicillin for haemophilus influenza. 2.? HTN/HLD/history of CVA/obesity ? Blood pressures are stable ? We will monitor blood pressures and if necessary add more medications at this time she does have hydralazine and as needed available ? Continue with gemfibrozil ? BMI of 35.2, discussed lifestyle modifications 3.? History of PE ? Continue with her home Eliquis Physical Exam Narrative Const alert, oriented x3 and no apparent distress General Appearance: cooperative HEENT normocephalic and moist oral mucous membranes Eyes PERRL, EOMs intact bilaterally and conjunctivae normal Neck supple and no JVD Resp normal respiratory effort, no retractions and no use of accessory muscles Auscultation: diminished lung sounds with Rales at the bases; Negative for crackles,? rhonchi or wheezes Cardio regular rate, regular rhythm, S1 normal heart sound, S2 normal heart sound and no murmurs GI soft to palpation, non-tender and non-distended; Negative for hepatosplenomegaly Extremity no clubbing, cyanosis or edema Skin no rashes or lesions noted Neuro no focal motor deficits and no sensory deficits noted Psych affect normal Appearance: appropriate Weight / BMI Weight Weight: 224 lb 13.944 oz Body Mass Index (BMI) 35.2 ABG / Lab / Microbiology Data Result Diagrams: 12/04/21 05:40 12/04/21 05:40 Laboratory: Laboratory Results - last 24 hr 12/04/21 05:40: WBC 3.8 L, RBC 3.48 L, Hgb 11.0 L, Hct 34.4 L, MCV 98.9, MCH 31.6, MCHC 32.0, RDW Std Deviation 47.8 H, RDW Coeff of Alverto 13.2, Plt Count 108 L, MPV 10.2, Immature Gran % (Auto) 0.800, Neut % (Auto) 81.0 H, Lymph % (Auto) 10.9 L, [place] % (Auto) 7.0, Eos % (Auto) 0.0, Baso % (Auto) 0.3, Absolute Neuts (auto) 3.1, Absolute Lymphs (auto) 0.42 L, Nucleated RBC % 0, Differential Comment SCANNED, Diff Path Review September12/04/21 05:40: Sodium 140, Potassium 3.6, Chloride 105, Carbon Dioxide 31.0, Anion Gap 4 L, BUN 26 H, Creatinine 1.21 H, Estim Creat Clear Calc 43.02, Est GFR (MDRD) Af Amer 56 L, Est GFR (MDRD) Non-Af 47 L, BUN/Creatinine Ratio 21.5 H, Glucose 84, Calcium 8.3 L Microbiology: Microbiology 12/01/21 07:01 Sputum, Induced/Lukens Gram Stain - Final 12/01/21 07:01 Sputum, Induced/Lukens Respiratory Culture - Final Haemophilus influenzae 11/30/21 21:40 Blood Culture (Wb) - Right Hand Blood Culture - Preliminary No growth in 48 hours. 11/30/21 20:50 Blood Culture (Wb) - Anticubital Right Blood Culture - Preliminary No growth in 48 hours. 11/30/21 06:20 Urine, Clean Catch Legionella Antigen - Final 11/30/21 06:20 Urine, Clean Catch Streptococcus pneumoniae Antigen (M - Final 12/01/21 01:50 Mucosa - Nasopharyngeal Respiratory Panel (PCR) - Final 11/30/21 20:59 Nasal Secretion SARS-CoV-2 & FLU Antigen (Rapid) - Final D/C Instructions Discharge Diet: Low fat / Low cholesterol Call your doctor if you observe: Fever of 101 or Higher, Shortness of breath, Dizziness, Fainting spells, Swelling in the ankles, Chest pain and Increased palpitations (irregular heartbeat) Meaningful Use Info Meaningful Use Diagnoses (Choose all that apply): None applicable Discharge Plan Admission Admit Date/Time: 11/30/21 22:18 Attending Provider: Teja Zeng Primary Care Provider: Matthew Valdivia Consulting Providers: Daisy Rivera ; Jesus Jolley Discharge Orders/Prescriptions Prescriptions: New amoxicillin 500 mg Capsule 500 mg PO Q12 6 Days Qty: 12 0RF dexamethasone 4 mg Tablet 6 mg PO DAILY 6 Days Qty: 9 0RF Continued gemfibrozil 600 MG tablet 600 mg PO BID phentermine 37.5 mg tablet 37.5 mg PO DAILY Label Comments: TAKE 1 TABLET BY MOUTH DAILY Eliquis DVT-PE Treat 30D Start 5 mg (74 tabs) tablets,dose pack See Taper PO BID Qty: 74 0RF Taper: Apixaban VTE Treatment 10 mg TWICE A DAY for 7 Days 5 mg TWICE A DAY for 30 Days gabapentin 100 mg Capsule 100 mg PO TID 30 Days Qty: 90 0RF loperamide 2 mg Tablet 2 mg PO Q6H PRN (Reason: Loose Stool) Referrals / Follow Up: Matthew Valdivia DO [Primary Care Provider] - Within 1 Week Disposition Disposition (needs filled in before D/C Order can be placed): Home, Self Care Charges/Coding Visit Charges Inpatient E&M: 53929 Disch Hosp
--- NOTE | 2021-12-04 13:33 | CASEMGMT ---
Social Work Telephone call from Jaylene Thompson. Jyalene request for discharge information to be faxed to [phone] as patient is in supervised care. This social media editor explained to be under the impression that patient was in Independent Living and did not need to send discharge information. Jaylene voiced understanding. This social media editor faxed discharge information. Dominique SHIN, RAQUELS
[2021-12-05 09:37] LABS: Pathologist Review Reviewed
== END 2021-12-04 11:30 | disposition home or self-care (01) | DRG 208 ==
LOC: ED 22:24 → ICU 22:27
PROVIDERS: Internal Medicine Critical Care Medicine; Admitting Provider Family Medicine; Emergency Provider Emergency Medicine; PCP Family Medicine; Visit Provider Family Medicine
DX: U07.1 COVID-19 (principal); J96.01 Acute respiratory failure with hypoxia; J12.82 Pneumonia due to coronavirus disease 2019; G92.9 Unspecified toxic encephalopathy; G93.41 Metabolic encephalopathy; J14 Pneumonia due to Hemophilus influenzae; J96.02 Acute respiratory failure with hypercapnia; N17.9 Acute kidney failure, unspecified; D69.6 Thrombocytopenia, unspecified; J43.9 Emphysema, unspecified; E87.70 Fluid overload, unspecified; I10 Essential (primary) hypertension; E78.5 Hyperlipidemia, unspecified; G47.33 Obstructive sleep apnea (adult) (pediatric); M54.9 Dorsalgia, unspecified; G89.29 Other chronic pain; E66.9 Obesity, unspecified; Z68.35 Body mass index [BMI] 35.0-35.9, adult; Z20.822 Contact with and (suspected) exposure to COVID-19; Z79.01 Long term (current) use of anticoagulants; Z79.899 Other long term (current) drug therapy; Z99.3 Dependence on wheelchair; Z86.73 Personal history of transient ischemic attack (TIA), and cerebral infarction without residual deficits; Z86.711 Personal history of pulmonary embolism; Z87.891 Personal history of nicotine dependence
CPT/HCPCS: 31500; 31720; 36415; 36600; 71045; 80048; 80053; 80076; 81001; 82550; 82728; 82803; 82962; 83605; 83615; 83880; 84145; 84478; 84484; 85025; 85379; 86140; 87040; 87070; 87077; 87205; 87428; 87449; 87633; 87635; 87641; 93005; 94002; 94003; 94640; 94660; 97162; 97166; 97802; 99251; 99285; J7030; J7050; A4216; G0463; J1940; J3010; U0003; U0005

== ENCOUNTER 2022-08-24 09:13 | Emergency (ER) | payer MEDICARE, OTHER, SELFPAY ==
[2022-08-24 09:14] VITALS: BP 104/54; PULSE 64; RESP 14; TEMP 36.9; O2SAT 84; O2SAT 95; BMI 39.2
--- NOTE | 2022-08-24 09:32 | EKG12_ITS ---
Test Reason : LETHARGY Blood Pressure : / mmHG Vent. Rate : 061 BPM Atrial Rate : 061 BPM P-R Int : 188 ms QRS Dur : 086 ms QT Int : 406 ms P-R-T Axes : 043 008 035 degrees QTc Int : 408 ms Sinus rhythm with sinus arrhythmia with occasional Premature ventricular complexes Low voltage QRS Borderline ECG Confirmed by URIEL ROMERO, TANA ([id number]), advertising editor NAMITA OVIEDO ([id number]) on 08/26/2022 9:52:56 AM Referred By: SUSANNA Confirmed By:TANA TREVINO MD
--- NOTE | 2022-08-24 09:33 | EX.ED.DYSGE1 ---
HPI History of Present Illness Chief Complaint: Weakness Informant: patient, EMS and SNF Narrative Narrative: Patient sent in from [facility] secondary to shortness of breath and lethargy. Patient reportedly fell on Wednesday. She was sitting in a chair and got her feet caught in a comforter. She fell from the chair to the floor. Staff from [facility] state patient has been more lethargic since that time. Patient denies striking her head. She denies a headache. She is on Eliquis. Patient denies feeling short of breath. [facility] Medical History Chronic back pain Constipation COPD (chronic obstructive pulmonary disease) Emphysema lung History of pulmonary embolism HLD (hyperlipidemia) HTN (hypertension) Stroke/cerebrovascular accident Thrombocytopenia Home Medications gemfibrozil 600 mg tablet 600 mg PO BID Check with primary doctor 03/03/19 [History Last Taken 05/06/21] phentermine 37.5 mg tablet 37.5 mg PO DAILY WT LOSS 05/06/21 [History Last Taken 05/06/21] apixaban 5 mg (74 tabs) tablets in a dose pack (Eliquis DVT-PE Treat 30D Start) See Taper PO BID #74 tabs 05/09/21 [Rx Last Taken Unknown] gabapentin 100 mg capsule 100 mg PO TID 30 days #90 caps 05/09/21 [Rx Last Taken Unknown] loperamide 2 mg tablet 2 mg PO Q6H PRN Loose Stool 11/30/21 [History Last Taken Unknown] amoxicillin 500 mg capsule 500 mg PO Q12 6 days #12 caps 12/04/21 [Rx Last Taken Unknown] dexamethasone 4 mg tablet 6 mg PO DAILY 6 days #9 tabs 12/04/21 [Rx Last Taken Unknown] doxycycline monohydrate 100 mg capsule 100 mg PO BID #20 CAPSULES 08/24/22 [Rx Last Taken Unknown] Allergy/AdvReac Type Severity Reaction Status Date / Time No Known Allergies Allergy Verified 08/24/22 09:23 Family History Mother Heart disease Father Heart disease Surgical History Previous back surgery Social History household members: spouse Smoking Status: Former smoker alcohol intake: never substance use type: does not use ROS ROS ED Constitutional Constitutional ED: Denies chills or fever(s) Eyes Eyes: Denies change in vision ENT ENT ED: Denies rhinorrhea or sore throat Cardiovascular Cardiovascular: Denies chest pain or palpitations Respiratory/Chest Respiratory/Chest: Denies cough or dyspnea Gastrointestinal Gastrointestinal: Denies abdominal pain Musculoskeletal Musculoskeletal: Denies back pain or neck pain Neurologic Neurologic: Reports weakness; Denies headache(s) Allergic/Immunologic Allergic/Immunologic ED: Denies mouth swelling or tongue swelling EXAM Physical Exam Const Vital Signs: 08/24/22 09:14 08/24/22 09:14 08/24/22 09:28 Temperature 98.4 F Temperature Source Oral Pulse Rate 64 Respiratory Rate 14 Respiratory Pattern Tachypnea Blood Pressure 104/54 L Blood Pressure Mean 70 Pulse Ox 84 95 Oxygen Delivery Method Room Air Nasal Cannula Oxygen Flow Rate (L/min) 6 Fraction of Inspired Oxygen (FIO2) 08/24/22 10:30 08/24/22 11:40 Temperature Temperature Source Pulse Rate 56 L 73 Respiratory Rate 17 20 H Respiratory Pattern Normal Blood Pressure 127/57 H Blood Pressure Mean 80 Pulse Ox 96 90 Oxygen Delivery Method Nasal Cannula Oxygen Flow Rate (L/min) 6 Fraction of Inspired Oxygen (FIO2) 40 Positive well nourished, well developed and obese General Appearance ED: well developed Nutritional Appearance: obese HEENT Reports normocephalic and head/scalp atraumatic Eyes PERRL and EOMs intact bilaterally Neck supple Chest Wall inspection of chest normal and palpation of chest normal Resp normal respiratory effort and clear to auscultation bilaterally Cardio regular rate and regular rhythm GI non-tender Auscultation: normoactive bowel sounds Palpation: soft Extremity normal to inspection Neuro Neuro Narrative: Sleepy but arouses to voice and answers questions appropriately. No focal neurologic deficits. Sensorium / Orientation: alert Psych Psych Narrative: Flat affect. Skin no rashes or lesions noted MDM MDM MDM Narrative Medical decision making narrative: Lab work and ABG ordered. Chest x-ray obtained. Swab for COVID and influenza ordered. CT head ordered given patient's fall. ABG Data ABG results: ABG 08/24/22 09:54 Specimen Type ART Sample Site R Radial pH 7.09 L* Bicarbonate Actual 31.9 H Total CO2 35 Base Excess 2 O2 Saturation 72 L ABG pCO2 106.4 H* ABG pO2 55 L Noman Test Positive O2 Delivery Device Cannula Liter Flow 10.0 Crit Call To/Read Back Yes Radiography Chest X-Ray - ED: 1 View, Read by ED Physician and Right Infiltrate Diagnostic Testing: Clinical Impression(s) from Imaging Studies Chest X-Ray 08/24/22 10:15 IMPRESSION: Cardiomegaly with diffuse interstitial pattern. New denser opacity at the right base which may represent atelectasis or early/developing pneumonia. Follow-up chest imaging to resolution recommended. Electronically Signed: Diego Garvey, at 11:31 EDT , EKG Initial EKG: Attestation: I personally reviewed and interpreted this EKG as follows: Interpretation: Sinus Rhythm (Sinus at 61 with no acute ischemia.) Treatment and Re-Evaluation :: Patient's ABG shows significant CO2 retention. She is placed on BiPAP and only requiring 30% FiO2. Chest x-ray per my interpretation reveals a right lower lobe infiltrate. Radiology interpretation reviewed. At this time we have not been able to get blood from her IV line. Patient is now alert and refusing care. She states she wants the mask off and does not want to be intubated. She states that she will just wear nasal cannula oxygen if she has to. She is refusing blood work. She states she does not want stay in the hospital and wants discharged. She is alert and aware of what is going on. We have advised her multiple times that her oxygen level can drop and she can . I spoke with the patient's niece who is listed as primary contact as well as the patient's . They both agree that they have had conversations and that the patient in fact does not want to be intubated. We have attempted multiple times to convince the patient to stay for treatment, but she is refusing. I spoke with the patient's primary care physician, Dr. Valdivia. Patient has refused to go see him in the office for any follow-up as well. Patient will be discharged back to the [facility] on nasal cannula oxygen. I will write her prescription for an antibiotic to cover pneumonia. I did speak with Dr. Valdivia about possibility of getting palliative care or hospice involved as she is refusing any further care. Discharge Plan Triage Chief Complaint: Weakness Other Complaint: Fall ED Provider: Livier Whipple Dx/Rx/DC Orders Clinical Impression: Pneumonia, CO2 retention, Refusal of care by patient Instructions: ED Pneumonia (Adult) Prescriptions: New doxycycline monohydrate 100 mg capsule 100 mg PO BID Qty: 20 0RF No Action gemfibrozil 600 MG tablet 600 mg PO BID phentermine 37.5 mg tablet 37.5 mg PO DAILY Label Comments: TAKE 1 TABLET BY MOUTH DAILY Eliquis DVT-PE Treat 30D Start 5 mg (74 tabs) tablets,dose pack See Taper PO BID Qty: 74 0RF Taper: Apixaban VTE Treatment 10 mg TWICE A DAY for 7 Days 5 mg TWICE A DAY for 30 Days gabapentin 100 mg Capsule 100 mg PO TID 30 Days Qty: 90 0RF loperamide 2 mg Tablet 2 mg PO Q6H PRN (Reason: Loose Stool) amoxicillin 500 mg Capsule 500 mg PO Q12 6 Days Qty: 12 0RF dexamethasone 4 mg Tablet 6 mg PO DAILY 6 Days Qty: 9 0RF Primary Care Provider: Matthew Valdivia Referrals: Matthew Valdivia DO [Primary Care Provider] - As soon as possible Disposition Disposition: Home, Self Care
[2022-08-24 10:01] LABS: Allen Test Positive; Base Excess 2 mmol/L (-2 to +2); Bicarbonate 31.9 mmol/L (22-26); Blood Gas Specimen Type ART; O2 Delivery Device Cannula; PO2 55 mmHG (75-100); SITE R Radial; SO2 72 % (95-99); Total Carbon Dioxide 35 mmol/L; pCO2 106.4 mmHg (35-45); pH 7.09 (7.35-7.45)
--- NOTE | 2022-08-24 10:15 | RAD_ITS ---
STUDY: X-RAY CHEST REASON FOR EXAM: Female, 71 years old. Shortness of breath. TECHNIQUE: Single frontal view of the chest. COMPARISON: November 01, 2021. FINDINGS: Low volume inspiration with diffuse interstitial pattern. Patchy opacity at the right base which is increased in size and density since the prior study. Right pleural effusion which is increased. Stable cardiomegaly. Normal mediastinum and mark. Normal visualized pulmonary arteries. Aortic tortuosity with calcification. Nathan rods with dextroscoliosis unchanged. Normal visualized ribs, clavicles, and shoulders. There is no demonstrated abnormality of the visualized soft tissue structures of the upper abdomen. RAD/Chest 1 View (Portable) IMPRESSION: Cardiomegaly with diffuse interstitial pattern. New denser opacity at the right base which may represent atelectasis or early/developing pneumonia. Follow-up chest imaging to resolution recommended. Electronically Signed: Diego Garvey, at 11:31 EDT ,
[2022-08-24 10:30] VITALS: PULSE 56; RESP 12; RESP 17; O2SAT 96
--- NOTE | 2022-08-24 10:41 | CPS ---
ER Doc Marilee Whipple notified of ABG results by HINGING MACHINE OPERATOR
[2022-08-24 11:40] VITALS: BP 127/57; PULSE 73; RESP 20; O2SAT 90
[2022-08-24 12:38] VITALS: O2SAT 84; O2SAT 96
--- NOTE | 2022-08-24 12:51 | CM.ED ---
Addendum entered by Mami Heard 08/24/22 13:08: TANG contacted by Talisha with [facility] to review referral, inquiring if patient is active with other providers as she was previously working with [facility]. TANG met with patient and introduced herself and role as [facility] Jute Bag Clipper. Patient was laying on hospital bed and agreeable to speak with social media marketer. SW inquired about patient's current use of oxygen at [facility]. Patient reports she is not currently using oxygen but has used [employer] services in the past. Patient explained she returned all of the equipment. SW inquired if patients FOC is still [employer], patient reports it is preferred. SW explained [facility] hospital liaison was referring patient's referral and would need credit card information on file. Patient reports understanding. TANG updated Talisha with [facility], Talisha reports she just returned from lunch and will be in to patient's room as soon as she is able. Plan: d/c to [facility] with oxygen from [employer] BRIAN Andres Original Note: Social Work Note Referral Source: home restoration service supervisor Alyssa Referral Reason: Home oxygen home restoration service supervisor Alyssa contacted TANG explaining patient is requesting to return to [facility] instead of being admitted to [facility] as recommended by . [facility] reports patient will need oxygen to return. TANG explained she would add the home oxygen qualifications to patient's worklist and send referral to [facility]. TANG met with MD Whipple to complete script for home oxygen. TANG sent referral via [facility] to [facility]. Plan: discharge to [facility] with oxygen BRIAN Andres
--- NOTE | 2022-08-24 13:39 | NURSING ---
CALLED [facility], ETA IS 2 HRS
[2022-08-24 14:29] VITALS: BP 98/63; PULSE 68; RESP 16; O2SAT 92
== END 2022-08-24 15:07 | disposition home or self-care (01) ==
PROVIDERS: Emergency Provider Emergency Medicine; PCP Family Medicine; Visit Provider Emergency Medicine
DX: J18.9 Pneumonia, unspecified organism (principal); J43.9 Emphysema, unspecified; E78.5 Hyperlipidemia, unspecified; Z87.891 Personal history of nicotine dependence; I10 Essential (primary) hypertension; E87.29 Other acidosis; R53.1 Weakness; Z79.01 Long term (current) use of anticoagulants; Z53.9 Procedure and treatment not carried out, unspecified reason; Z20.822 Contact with and (suspected) exposure to COVID-19
CPT/HCPCS: 36600; 71045; 82803; 87428; 93005; 94002; 99285; J7030; A4216

== ENCOUNTER → 2023-03-25 | Outpatient (CLI) | payer MEDICARE, OTHER, SELFPAY ==
[2023-03-25 17:36] LABS: Absolute Lymphocyte Count 0.75 X10^3/uL (0.83-4.51); Absolute Neutrophil Count 1.6 X10^3/uL (2.0-7.7); Basophil# 0.02 X10^3/uL; Basophil% 0.7 % (0-1); Eosinophil# 0.03 X10^3/uL; Eosinophils% 1.1 % (0-5); Hemoglobin 11.8 g/dL (12.0-15.0); Lymphocyte # 0.75 X10^3/ul (0.83-4.51); Lymphocyte % 26.8 % (19-41); Mean Corp Hgb Conc 30.3 g/dL (32-36); Mean Corpuscular Hgb 32.5 pg (27.0-32.0); Mean Corpuscular Volume 107.4 fL (81-99); Mean Platelet Vol. 10.9 fl (6.2-12.0); Monocyte# 0.34 X10^3/uL; Monocyte% 12.1 % (0-10); NRBC Flagged by Analyzer 0 % (0-5); Neutrophil # 1.64 X10^3/uL (2.7-7.7); Neutrophil % 58.6 % (47-70); Platelet Count 145 K/mm3 (150-450); RBC Distribution Width CV 13.7 % (11.6-14.6); RBC Distribution Width SD 54.5 fl (35.1-43.9); Red Blood Count 3.63 M/mm3 (4.2-5.4); White Blood Count 2.8 K/mm3 (4.4-11.0)
[2023-03-25 18:14] LABS: Hemoglobin A1c 4.9 % (3.8-5.6)
[2023-03-25 18:38] LABS: ALB/GLOB Ratio 0.8 RATIO (0.9-2.4); AST(SGOT) 23 U/L (15-37); Alanine Aminotransfer ALT/SGPT 19 U/L (13-56); Albumin, Serum 3.3 g/dL (3.2-5.0); Alkaline Phosphatase 48 U/L (45-117); Anion Gap 6 (5-15); BUN 29 mg/dL (7-18); BUN/Creat Ratio 16.9 RATIO (10-20); Calcium,Total 8.9 mg/dL (8.5-10.1); Chloride 106 mmol/L (98-107); Creatinine, Serum 1.72 mg/dL (0.55-1.02); EST Glomerular Filtration Rate 31 mL/min (>60); Est Glom Filt Rate - Afr Amer 37 mL/min (>60); Globulin 4.1 g/dL (2.2-4.2); Glucose 86 mg/dL (74-106); Potassium 4.8 mmol/L (3.5-5.1); Protein, Total 7.4 g/dL (6.4-8.2); Sodium Level 140 mmol/L (136-145); T4 Free Direct 0.69 ng/dL (0.76-1.46); Thyroid Stim Hormone (TSH) 3.38 uIU/mL (0.358-3.74)
== END | disposition home or self-care (01) ==
PROVIDERS: PCP Family Medicine; Referring Provider Family Medicine; Visit Provider Family Medicine
DX: M19.90 Unspecified osteoarthritis, unspecified site (principal); N18.31 Chronic kidney disease, stage 3a; R53.83 Other fatigue; R73.01 Impaired fasting glucose; R63.5 Abnormal weight gain
CPT/HCPCS: 36415; 80053; 82533; 83036; 84439; 84443; 85025

== ENCOUNTER → 2023-10-26 | Outpatient (CLI) | payer MEDICARE, OTHER, SELFPAY ==
[2023-10-26 15:36] LABS: Anion Gap 6 (5-15); BUN 21 mg/dL (7-18); BUN/Creat Ratio 11.8 RATIO (10-20); Calcium,Total 9.4 mg/dL (8.5-10.1); Chloride 106 mmol/L (98-107); Creatinine, Serum 1.78 mg/dL (0.55-1.02); EST Glomerular Filtration Rate 30 mL/min (>60); Est Glom Filt Rate - Afr Amer 36 mL/min (>60); Glucose 85 mg/dL (74-106); Potassium 4.9 mmol/L (3.5-5.1); Sodium Level 139 mmol/L (136-145)
[2023-10-26 15:39] LABS: Absolute Neutrophil Count 1.6 X10^3/uL (2.0-7.7); Basophil# 0.02 X10^3/uL; Basophil% 0.8 % (0-1); Eosinophil# 0.02 X10^3/uL; Eosinophils% 0.8 % (0-5); Hematocrit 38.4 % (37-47); Hemoglobin 11.6 g/dL (12.0-15.0); Lymphocyte % 23.8 % (19-41); Mean Corp Hgb Conc 30.2 g/dL (32-36); Mean Corpuscular Hgb 31.7 pg (27.0-32.0); Mean Corpuscular Volume 104.9 fL (81-99); Mean Platelet Vol. 10.9 fl (6.2-12.0); Monocyte% 11.9 % (0-10); NRBC Flagged by Analyzer 0 % (0-5); Neutrophil # 1.56 X10^3/uL (2.7-7.7); Neutrophil % 61.9 % (47-70); POSITIVE DIFFERENTIAL YES; Platelet Count 157 K/mm3 (150-450); RBC Distribution Width CV 14.2 % (11.6-14.6); RBC Distribution Width SD 54.1 fl (35.1-43.9); Red Blood Count 3.66 M/mm3 (4.2-5.4); White Blood Count 2.5 K/mm3 (4.4-11.0)
[2023-10-26 15:41] LABS: Differential Indicated SCAN CRITERIA MET
[2023-10-26 19:43] LABS: Differential Comment SCANNED
[2023-10-27 14:05] LABS: Pathologist Review Reviewed
== END | disposition home or self-care (01) ==
LOC: BFHLAB 13:09
PROVIDERS: PCP Family Medicine; Referring Provider Family Medicine; Visit Provider Family Medicine
DX: D61.818 Other pancytopenia (principal); N18.31 Chronic kidney disease, stage 3a
CPT/HCPCS: 36415; 80048; 85025

== ENCOUNTER → 2023-11-10 | Outpatient (CLI) | payer MEDICARE, OTHER, SELFPAY ==
--- NOTE | 2023-11-10 07:46 | CT_ITS ---
STUDY: CT CHEST WITH CONTRAST REASON FOR EXAM: Female, 72 years old. LT LOWER RIB/CHEST WALL PAIN, SMOKER RADIATION DOSAGE (If Supplied By Facility): CTDIvol = ( 20.32 ) mGy, DLP = ( 797.97 ) mGycm TECHNIQUE: Transaxial imaging was performed following intravenous administration of 100 ml Isovue 370. Multiplanar coronal and sagittal images were reformatted. Individualized dose optimization techniques were used for this CT. COMPARISON: Comparison is made with prior study dated August 10, 2011. FINDINGS: CHEST Heterogeneous enlargement of the thyroid gland more prominent on the left side with the mild degree of left substernal extension. Increased markings in the posterior aspect of the lingular segment of the left upper lobe suggestive of scarring. There is also evidence of increased linear markings at the lung bases suggestive of linear scarring. 2 mm noncalcified nodule in the peripheral lateral aspect of the right upper lobe as seen on axial image #64. There is a 4.1 mm noncalcified nodule in the peripheral lateral aspect of the right middle lobe as seen on axial image #94. There is no demonstrated pleural abnormality. There are calcifications of the coronary arteries. Cardiomegaly. Normal mediastinum. Normal hilar regions. The main pulmonary artery is dilated. Normal aorta arch and descending thoracic aorta. Prior intraventricular sclerotic fixation of the thoracic vertebrae with increased kyphosis. Renal cortical thinning. CT/Chest WITH Contrast IMPRESSION: 4.1 mm noncalcified nodule in the peripheral lateral aspect of the right middle lobe as well as a 2 mm noncalcified nodule in the peripheral lateral aspect of the right upper lobe. These are unchanged. Electronically Signed: Óscar Leyva MD at 8:43 EDT ,
== END | disposition home or self-care (01) ==
LOC: CT 07:44
PROVIDERS: PCP Family Medicine; Referring Provider Family Medicine; Visit Provider Family Medicine
DX: R07.81 Pleurodynia (principal); D70.9 Neutropenia, unspecified
CPT/HCPCS: 71260; Q9967

== ENCOUNTER 2024-01-21 11:08 | Inpatient (IN) | payer MEDICARE, OTHER, SELFPAY ==
[2024-01-21] VITALS (30 sets, daily range): BP systolic 86–145; BP diastolic 49–89; PULSE 51–84; RESP 13–24; TEMP 36.2–37; O2SAT 55–100; BMI 39.2; BMI 38.1
[2024-01-21 11:36] LABS: Base Excess 0 mmol/L (-2 to +2); Bicarbonate 30.6 mmol/L (22-26); Blood Gas Specimen Type ART; Mode Not entered; O2 Delivery Device NRB; PO2 82 mmHG (75-100); SITE L Brach; SO2 89 % (95-99); Total Carbon Dioxide 34 mmol/L; pCO2 106.6 mmHg (35-45); pH 7.07 (7.35-7.45)
[2024-01-21 11:45] LABS: Absolute Lymphocyte Count 0.69 X10^3/uL (0.83-4.51); Absolute Neutrophil Count 4.2 X10^3/uL (2.0-7.7); Basophil# 0.05 X10^3/uL; Basophil% 0.9 % (0-1); Hemoglobin 11.7 g/dL (12.0-15.0); Lymphocyte # 0.69 X10^3/ul (0.83-4.51); Lymphocyte % 12.3 % (19-41); Mean Corp Hgb Conc 29.3 g/dL (32-36); Mean Corpuscular Hgb 31.9 pg (27.0-32.0); Mean Platelet Vol. 10.5 fl (6.2-12.0); Monocyte# 0.49 X10^3/uL; Monocyte% 8.7 % (0-10); Neutrophil # 4.24 X10^3/uL (2.7-7.7); Neutrophil % 75.4 % (47-70); Platelet Count 173 K/mm3 (150-450); RBC Distribution Width CV 15.8 % (11.6-14.6); Red Blood Count 3.67 M/mm3 (4.2-5.4); White Blood Count 5.6 K/mm3 (4.4-11.0)
--- NOTE | 2024-01-21 11:52 | RAD_ITS ---
STUDY: X-RAY CHEST REASON FOR EXAM: Female, 73 years old. Respiratory failure TECHNIQUE: Single AP portable view of the chest. COMPARISON: August 24, 2022 FINDINGS: There are monitoring devices. There are mild lower lung increased opacities with consolidation and small pleural effusions. Normal size heart. Normal mediastinum and mark. Normal visualized pulmonary arteries. There is atherosclerotic calcification of the aortic arch with tortuosity. There is postoperative change with rods and screws in the thoracic spine. There is partial resection of the left sixth rib. There is no demonstrated abnormality of the visualized soft tissue structures of the upper abdomen. RAD/Chest 1 View (Portable) IMPRESSION: Lower lung infiltrates or edema and small pleural effusions. Electronically Signed: Luis Antonio Trevino MD at 12:59 EDT ,
[2024-01-21] MEDS: 0.9% Normal Saline (500mL Bag) 500 ML 1000 ML IV (12:02)
[2024-01-21 12:10] LABS: International Normalized Ratio 1.4; Partial Thromboplast Time 35.9 Seconds (24.1-36.2); Prothrombin Time (Protime)PT. 17.1 SECONDS (11.7-14.9)
--- NOTE | 2024-01-21 12:17 | EX.ED.CRITCA ---
HPI History of Present Illness Chief Complaint: Alt LOC Detail of Chief Complaint: Altered mental status due to respiratory failure Informant: family Onset/Context/Timing Onset: Days (Not been her normal self for several days. Detailed HPI narrative) Context: Gradual Onset Timing: Continuous Quality: Altered mental status and hypoxia Location: Presumed respiratory versus cardiovascular Current Severity: Unable to tell since patient is nonverbal Maximum Severity: Unable to tell since patient is nonverbal Worsened by: Unknown Relieved by: Nothing Associated Symptoms Associated Symptoms: other (Unable to determine) Narrative Narrative: Patient is a 73-year-old woman who reportedly has been doing too much caring for her . They are both at [facility]. Family member this with her in the room feels that she overdid herself. There is no outbreak of COVID to their knowledge. She thought the patient's lips looked ashen/pond. Patient does have a signed DNR Comfort Care arrest with specific indication no intubation. History is limited because patient is somnolent. Prior similar symptoms: No Recent Illness/Hospitalization: No PFSH PFS Medical History Constipation Emphysema lung Thrombocytopenia Stroke/cerebrovascular accident History of pulmonary embolism HLD (hyperlipidemia) Chronic back pain COPD (chronic obstructive pulmonary disease) HTN (hypertension) Home Medications ?Medication ?Instructions ?Recorded ?Last Taken ?Type gemfibrozil 600 mg tablet 600 mg PO BID Check with primary 03/03/19 05/06/21 History doctor phentermine 37.5 mg tablet 37.5 mg PO DAILY WT LOSS 05/06/21 05/06/21 History apixaban 5 mg (74 tabs) tablets in See Taper PO BID #74 tabs 05/09/21 Unknown Rx a dose pack (Eliquis DVT-PE Treat 30D Start) gabapentin 100 mg capsule 100 mg PO TID 30 days #90 caps 05/09/21 Unknown Rx loperamide 2 mg tablet 2 mg PO Q6H PRN Loose Stool 11/30/21 Unknown History amoxicillin 500 mg capsule 500 mg PO Q12 6 days #12 caps 12/04/21 Unknown Rx dexamethasone 4 mg tablet 6 mg (1.5 x 4 mg) PO DAILY 6 days 12/04/21 Unknown Rx #9 tabs doxycycline monohydrate 100 mg 100 mg PO BID #20 CAPSULES 08/24/22 Unknown Rx capsule Allergy/AdvReac Type Severity Reaction Status Date / Time No Known Allergies Allergy Verified 01/21/24 12:03 Family History Mother Heart disease Father Heart disease Surgical History Previous back surgery Social History household members: spouse Smoking Status: Former smoker alcohol intake: never substance use type: does not use ROS ROS ED Review of Systems ROS Unobtainable: due to mental status EXAM Physical Exam Const Vital Signs: 01/21/24 11:10 01/21/24 11:10 01/21/24 11:10 Temperature 98.5 F 98.5 F Temperature Source Oral Oral Pulse Rate 84 84 Respiratory Rate 24 H 24 H Blood Pressure 98/49 L 98/49 L Blood Pressure Mean 65 65 Pulse Ox 55 81 55 Oxygen Delivery Method Room Air Nasal Cannula Room Air Oxygen Flow Rate (L/min) 6 Fraction of Inspired Oxygen (FIO2) 01/21/24 11:20 01/21/24 11:31 01/21/24 11:40 Temperature Temperature Source Pulse Rate 69 71 Respiratory Rate 22 H 18 Blood Pressure 100/63 Blood Pressure Mean 75 Pulse Ox 95 98 95 Oxygen Delivery Method Non-Rebreather Non-Rebreather Oxygen Flow Rate (L/min) 15 Fraction of Inspired Oxygen (FIO2) 35 01/21/24 12:32 Temperature 98.6 F Temperature Source Oral Pulse Rate 67 Respiratory Rate 20 H Blood Pressure 121/60 H Blood Pressure Mean 80 Pulse Ox 94 Oxygen Delivery Method Bi-pap Oxygen Flow Rate (L/min) Fraction of Inspired Oxygen (FIO2) 35 Positive well nourished and well developed Constitutional Narrative: Patient is somnolent. She attempts to open her eyes to noxious stimuli. General Appearance ED: well developed and NAD; Negative for pallor HEENT normocephalic, atraumatic and cyanosis of lips/distal nose Eyes Eyes Narrative: There is mild exophthalmos's. Patient has no evidence subconjunctival hemorrhage. There is no nystagmus. General Eye ED: Negative for pale conjunctiva or scleral icterus Neck full ROM and no lymphadenopathy Neck Narrative: Unable to determine JVD because of body habitus. Resp Resp Narrative: Respiration is rapid not necessarily labored. She has bibasilar rales. Diminished breath sounds bilaterally. Cardio regular rate, regular rhythm, S1 normal heart sound, S2 normal heart sound and no murmurs GI non-tender, non-distended and no masses Inspection: Negative for abdominal distention Auscultation: hypoactive bowel sounds Palpation: soft Extremity Extremity Narrative: Patient has edema of her extremities. There are significant bruising. Patient has noted to be on anticoagulant. Neuro No oriented x3 Sensorium / Orientation: Negative for alert Psych Psych Narrative: Unable to determine Skin General Skin Exam: Negative for jaundice or pallor Sepsis Attestation Sepsis Alert: Yes Sepsis Attestation: Sepsis Ruled Out (Patient has multiple issues. There is no obvious infiltrate noted. She has a normal white count. This most likely represents a cardiac etiology and COPD.) MDM MDM MDM Narrative Medical decision making narrative: With history of COPD need to evaluate for respiratory failure with hypercapnia. Differential diagnosis would include congestive heart failure, pneumonia, pneumothorax, pulmonary embolus. Pulm emesis less likely should she is on anticoagulant. She does have a history of prior DVT. EKG was obtained to rule out acute cardiac ischemia. Troponin as well as BNP because of the bibasilar rales and limited history. Since she presents from nursing facility will obtain rapid antigen for COVID, influenza and RSV. Lab Data Attestation: I reviewed the patient's lab results. Lab results narrative: White count reveals mild anemia with MCV of 109. Coags are slightly elevated most likely due to the fact she is on Eliquis. Base metabolic panel was elevated BUN/creatinine of 49 and 2.65.Prior BUN and creatinine was 21 and 1.78 on October 26, 2023. Similar results March 25, 2023. Suspect the elevated troponin is due to type III non-ST elevation MD. BNP is elevated. Chest x-ray is of limited value due to limited inspiratory effort. There may be a component of heart failure on top of everything else. Lasix was not ordered since patient was hypotensive. Labs: Laboratory Results - last 24 hr 01/21/24 01/21/24 11:30 11:47 WBC 5.6 RBC 3.67 L Hgb 11.7 L Hct 40.0 MCV 109.0 H MCH 31.9 MCHC 29.3 L RDW Std Deviation 62.0 H RDW Coeff of Alverto 15.8 H Plt Count 173 MPV 10.5 Immature Gran % (Auto) 2.700 H Neut % (Auto) 75.4 H Lymph % (Auto) 12.3 L [place] % (Auto) 8.7 Eos % (Auto) 0.0 Baso % (Auto) 0.9 Absolute Neuts (auto) 4.2 Absolute Lymphs (auto) 0.69 L Nucleated RBC % 2.0 PT 17.1 H INR 1.4 APTT 35.9 Sodium 134 L Potassium 4.8 Chloride 99 Carbon Dioxide 27.0 Anion Gap 8 BUN 49 H Creatinine 2.65 H Estim Creat Clear Calc 25.41 Est GFR (MDRD) Af Amer 23 L Est GFR (MDRD) Non-Af 19 L BUN/Creatinine Ratio 18.5 Glucose 126 H Lactic Acid 0.5 Calcium 8.0 L Total Bilirubin 0.30 AST 24 ALT 21 Alkaline Phosphatase 55 Troponin I High Sens 277 H* B-Natriuretic Peptide 830.1 H Total Protein 7.0 Albumin 2.9 L Globulin 4.1 Albumin/Globulin Ratio 0.7 L ABG Data Attestation: I personally reviewed and interpreted this ABG as follows: Interpretation: ABG reveals an acute respiratory failure with a pH of 7.07, pCO2 of 106.6, pO2 of 82 on 15 L by nasal cannula. Saturation is 89% which is slightly lower than pulse ox reading of 94%. ABG results: ABG 01/21/24 11:32 Specimen Type ART Sample Site L Brach pH 7.07 L* Bicarbonate Actual 30.6 H Total CO2 34 Base Excess 0 O2 Saturation 89 L O2 % 15.0 ABG pCO2 106.6 H* ABG pO2 82 O2 Delivery Device NRB Vent Mode Not entered Crit Call To/Read Back Yes Blood Gas Notified Whom ug Blood Gas Notified Time 11:33:30 Radiography Chest X-Ray - ED: 1 View and Read by ED Physician (Single view portable chest x-ray is limited. Patient has rods noted in the dorsal spine. This is multilevel. Limited inspiratory volume. There may be a small effusion on the right. Unable to turn but there is an effusion on the left. There is no evidence of pneumothorax.) Diagnostic Testing: Clinical Impression(s) from Imaging Studies Chest X-Ray 01/21/24 11:52 IMPRESSION: Lower lung infiltrates or edema and small pleural effusions. Electronically Signed: Luis Antonio Trevino MD at 12:59 EDT , Management Discussion w/another healthcare provider: Hospitalist Treatment and Re-Evaluation Narrative: Case was discussed with hospitalist. Patient be admitted to PCU stepdown. Critical Care Time Critical Care Time: Yes Critical care time (excluding procedures): 30-74 minutes (33), Including time spent: (History, physical, documentation, review of prior laboratory studies and reports, independent interpretation of laboratory results and initiation of therapy for respiratory failure), Discussing w/Patient &/or Family/Cloth Printing Utility Worker (Regarding DNR status.), Discussing w/Consultants and Arranging Admission or Transfer Discharge Plan Dx/Rx/DC Orders Clinical Impression: Acute respiratory failure with hypoxia and hypercapnia, Acute hypotension, Acute kidney injury superimposed on chronic kidney disease, Non-ST elevation MD (NSTEMI), Elevated brain natriuretic peptide (BNP) level, History of COPD Disposition Disposition: Acute Care [facility]
[2024-01-21 12:31] LABS: ALB/GLOB Ratio 0.7 RATIO (0.9-2.4); AST(SGOT) 24 U/L (15-37); Alanine Aminotransfer ALT/SGPT 21 U/L (13-56); Albumin, Serum 2.9 g/dL (3.2-5.0); Alkaline Phosphatase 55 U/L (45-117); Anion Gap 8 (5-15); BUN 49 mg/dL (7-18); BUN/Creat Ratio 18.5 RATIO (10-20); Chloride 99 mmol/L (98-107); Creatinine, Serum 2.65 mg/dL (0.55-1.02); EST Glomerular Filtration Rate 19 mL/min (>60); Est Glom Filt Rate - Afr Amer 23 mL/min (>60); Estimated Creatinine Clearance 25.41 ml/min; Globulin 4.1 g/dL (2.2-4.2); Glucose 126 mg/dL (74-106); Potassium 4.8 mmol/L (3.5-5.1); Sodium Level 134 mmol/L (136-145); Troponin-I HS (w/2H Reflex) 277 pg/mL (3.0-54.0)
[2024-01-21 12:33] LABS: BNP,B-Type NATRIURETIC PEPTIDE 830.1 pg/mL (0-100)
[2024-01-21 12:37] LABS: Lactic Acid 0.5 mmol/L (0.4-1.9)
--- NOTE | 2024-01-21 13:13 | PCM.HP.STD ---
HPI - General General Date of Admission: 01/21/24 Date of Service: 01/21/24 HPI Narrative DESIRE CHAUDHRY, is a 73 F who presents with altered mental status. Patient is a resident at an assisted living facility was found to be increasingly lethargic and sleepy during the day. EMS squad was called and patient was brought to the emergency department. Patient could not provide history given her present condition. History was therefore provided by her niece. Per patient's niece she did notice patient has been complaining of decreased energy level and increasing fatigue. There was no report of fever no chills. Patient's niece thought her condition was due to patient taking care of her however given her increasing lethargy the EMS cart was called as reported above. Workup in the emergency department demonstrated significant respiratory acidosis was placed on BiPAP and admitted to the intensive care unit for subsequent management [facility] Medical History Constipation Emphysema lung Thrombocytopenia Stroke/cerebrovascular accident History of pulmonary embolism HLD (hyperlipidemia) Chronic back pain COPD (chronic obstructive pulmonary disease) HTN (hypertension) Home Medications ?Medication ?Instructions ?Recorded ?Last Taken ?Type gemfibrozil 600 mg tablet 600 mg PO BID Check with primary 03/03/19 05/06/21 [address] doctor gabapentin 100 mg capsule 100 mg PO TID 30 days #90 caps 05/09/21 Unknown Rx loperamide 2 mg tablet 2 mg PO Q6H PRN Loose Stool 11/30/21 Unknown History acetaminophen 325 mg capsule 325 mg PO Q6H PRN fever or pain 01/21/24 Unknown History apixaban 5 mg tablet (Eliquis) 5 mg PO BID 01/21/24 Unknown History Allergy/AdvReac Type Severity Reaction Status Date / Time No Known Allergies Allergy Verified 01/21/24 12:03 Family History Mother Heart disease Father Heart disease Surgical History Previous back surgery Social History household members: spouse Smoking Status: Former smoker alcohol intake: never substance use type: does not use ROS ROS Narrative Unable to obtain given patient lethargy Vital Signs Vital Signs Vital Signs: 01/21/24 11:10 01/21/24 11:10 01/21/24 11:10 Temperature 98.5 F 98.5 F Temperature Source Oral Oral Pulse Rate 84 84 Respiratory Rate 24 H 24 H Blood Pressure 98/49 L 98/49 L Blood Pressure Mean 65 65 Pulse Ox 55 81 55 Oxygen Delivery Method Room Air Nasal Cannula Room Air Oxygen Flow Rate (L/min) 6 Fraction of Inspired Oxygen (FIO2) 01/21/24 11:20 01/21/24 11:31 01/21/24 11:40 Temperature Temperature Source Pulse Rate 69 71 Respiratory Rate 22 H 18 Blood Pressure 100/63 Blood Pressure Mean 75 Pulse Ox 95 98 95 Oxygen Delivery Method Non-Rebreather Non-Rebreather Oxygen Flow Rate (L/min) 15 Fraction of Inspired Oxygen (FIO2) 35 01/21/24 12:32 01/21/24 12:45 01/21/24 13:00 Temperature 98.6 F 98.5 F 98.6 F Temperature Source Axillary Axillary Axillary Pulse Rate 67 62 64 Respiratory Rate 20 H 15 18 Blood Pressure 121/60 H 117/64 101/71 Blood Pressure Mean 80 81 81 Pulse Ox 94 90 93 Oxygen Delivery Method Bi-pap Bi-pap Bi-pap Oxygen Flow Rate (L/min) Fraction of Inspired Oxygen (FIO2) 35 35 35 Weight Weight: 117 kg Body Mass Index (BMI) 39.2 Physical Exam Narrative GENERAL: Significantly lethargic on BiPAP HEENT: Atraumatic; normocephalic EYES; Anicteric, Normal Conjunctiva NECK; supple, normal thyroid, RESPIRATORY: Diminished to auscultation CARDIOVASCULAR: Regular S1 S2, GI: soft, normoactive bowel sounds, : No Renal angle tenderness; EXTREMITIES: edema, no clubbing, MUSCULOSKELETAL: no muscle wasting NEURO: Lethargic but arouses with sternal rub SKIN: No Rash PSYCH; lethargic Results Lab / Micro Data 01/21/24 11:30 01/21/24 11:30 Labs: Laboratory Results - last 24 hr 01/21/24 11:30: WBC 5.6, RBC 3.67 L, Hgb 11.7 L, Hct 40.0, MCV 109.0 H, MCH 31.9, MCHC 29.3 L, RDW Std Deviation 62.0 H, RDW Coeff of Alverto 15.8 H, Plt Count 173, MPV 10.5, Immature Gran % (Auto) 2.700 H, Neut % (Auto) 75.4 H, Lymph % (Auto) 12.3 L, [place] % (Auto) 8.7, Eos % (Auto) 0.0, Baso % (Auto) 0.9, Absolute Neuts (auto) 4.2, Absolute Lymphs (auto) 0.69 L, Nucleated RBC % 2.0, Sodium 134 L, Potassium 4.8, Chloride 99, Carbon Dioxide 27.0, Anion Gap 8, BUN 49 H, Creatinine 2.65 H, Estim Creat Clear Calc 25.41, Est GFR (MDRD) Af Amer 23 L, Est GFR (MDRD) Non-Af 19 L, BUN/Creatinine Ratio 18.5, Glucose 126 H, Calcium 8.0 L, Total Bilirubin 0.30, AST 24, ALT 21, Alkaline Phosphatase 55, Troponin I High Sens 277 H*, Total Protein 7.0, Albumin 2.9 L, Globulin 4.1, Albumin/Globulin Ratio 0.7 L 01/21/24 11:47: PT 17.1 H, INR 1.4, APTT 35.9, Lactic Acid 0.5, B-Natriuretic Peptide 830.1 H ABG Data ABG results: ABG 01/21/24 11:32 Specimen Type ART Sample Site L Brach pH 7.07 L* Bicarbonate Actual 30.6 H Total CO2 34 Base Excess 0 O2 Saturation 89 L O2 % 15.0 ABG pCO2 106.6 H* ABG pO2 82 O2 Delivery Device NRB Vent Mode Not entered Crit Call To/Read Back Yes Blood Gas Notified Whom ug Blood Gas Notified Time 11:33:30 Imaging Radiology Impression Chest X-Ray 01/21/24 11:52 IMPRESSION: Lower lung infiltrates or edema and small pleural effusions. Electronically Signed: Luis Antonio Trevino MD at 12:59 EDT , Assessment & Plan Assessment/Plan (1) Acute respiratory failure with hypoxia and hypercapnia: PLAN: Plan Patient is a 73-year-old lady with history of COPD admitted with increasing lethargy 1. Acute metabolic encephalopathy ? Secondary to combination of hypoxic and hypercapnic respiratory failure secondary to COPD with acute exacerbation. Admitted to the intensive care unit for management of underlying clinical etiology 2. Acute respiratory acidosis ? Secondary to COPD with acute exacerbation with significant hypercapnia. Admitted to the intensive care unit with treatment of COPD 3. COPD with acute exacerbation ? Patient started on bronchodilator treatment, systemic steroid as well as antibiotic therapy. Patient placed on oxygen via BiPAP titrated to keep saturation greater than 90. 4. Acute kidney injury ? Superimposed on chronic kidney disease stage III. Baseline creatinine from 10/26/2023 was 1.7, creatinine on admission was 2.65 patient started on hydration daily monitoring with BMP ordered 5. Dyslipidemia ? Patient is on gemfibrozil currently being held 6. History of CVA ? Per history 7. History of pulmonary embolism ? Patient patient is on apixaban plan is to resume once home meds have been reconciled 8. Class III obesity with BMI of 40 ? Complicating care 9.Anemia ? Secondary to chronic disorder monitoring H&H and transfuse if patient becomes symptomatic or hemoglobin falls below 7 10. DVT prophylaxis ? Patient already on systemic anticoagulation with apixaban Time spent in the patient's overall evaluation,decision-making process, review of diagnostic data, adjustment of management, discussion with other providers, nursing nursing and ancillary staff involved in patient's care documentation, 80 minutes Advance planning; did discuss with the patient's condition with her niece who was present in the room regarding advanced directives as well as CODE STATUS. Did explain the various scenarios involved ( FULL CODE, DNR CCA, DNR CCA with no intubation, and DNR CC and what each meant) patient had apparently discussed with the niece to remain DNR CCA no intubation prior to her admission. Order was placed. Time spent on discussion 18 minutes. Charges/Coding Multi Select Codes Visit Charges Visit Charges: 72754 Init Hosp L3 Hospitalists' Procedures Procedures: 55564 Advncd Care Plan 30 Min
[2024-01-21 13:20] LABS: Base Excess 0 mmol/L (-2 to +2); Bicarbonate 30.2 mmol/L (22-26); Blood Gas Specimen Type ART; Mode avaps; O2 Delivery Device Not entered; PEEP 14; PIP 28; PO2 71 mmHG (75-100); RR 18; SITE R Brach; SO2 83 % (95-99); Total Carbon Dioxide 34 mmol/L; pH 7.06 (7.35-7.45)
--- NOTE | 2024-01-21 13:28 | CPS ---
Rt talked to Dr menchaca after ABG results. RT let know there is no more wiggle room on the AVAPS machine. This RT also talked to transmitter engineer in charge to let them know about pt condition
[2024-01-21 13:38] LABS: Reflex Troponin-HS? (from REC) Y
[2024-01-21 14:06] LABS: Bacteria 0 SEEN /hpf (None Seen); Mucous, Urine 0 SEEN /hpf (<or=2+); Red Blood Cells-Urine 0 SEEN /hpf (0-5); Squamous Epithelial Cells - UA 0 SEEN /hpf (5-10)
[2024-01-21 14:07] LABS: Color, Urine Yellow (Yellow); Glucose, Dipstick Normal (Normal); Ketone-Dipstick Negative (Negative); Leukocyte Esterase-Dipstick 25 /ul (Negative); Nitrite-Dipstick Negative (Negative); Occult Blood-Urine 10 /ul (Negative); Protein-Dipstick 100 mg/dl (Negative); Specific Gravity, Urine 1.025 (1.002-1.030); Urine Clarity Sl. Cloudy (Clear); Urine Urobilinogen 1 mg/dl (Normal)
[2024-01-21 14:16] LABS: Urine Bilirubin Dipstick 3 mg/dL (Negative)
[2024-01-21 14:21] LABS: White Blood Cells 0-5 SEEN /hpf (0-5)
[2024-01-21 14:32] LABS: Troponin-I HS 315 pg/mL (3.0-54.0)
[2024-01-21] MEDS: 0.9% Normal Saline (1000mL) 1,000 ML 100 ML IV (16:12)
[2024-01-21] MEDS: levoFLOXacin IV 750 MG/150 ML BAG 100 MG IV (16:44)
[2024-01-21] MEDS: 0.9% Normal Saline (500mL Bag) 500 ML 999 ML IV (18:35)
[2024-01-21] MEDS: Ipratropium/Albuterol Sulfate 3 ML AMPUL.NEB INHALATION ×2 (19:12→22:47)
[2024-01-21] MEDS: 0.9% Saline Lock 10 ML Syringe IV (22:00)
[2024-01-22] VITALS (37 sets, daily range): BP systolic 87–129; BP diastolic 51–92; PULSE 53–82; RESP 15–26; TEMP 36.6–37.1; O2SAT 90–100; BMI 38.2
--- NOTE | 2024-01-22 01:34 | CPS ---
Patient placed on 5LNC for a break as tolerated from bipap. RT applied protective barrier on nose due to redness for when patient goes back on bipap. Nursing aware.
[2024-01-22] MEDS: Ipratropium/Albuterol Sulfate 3 ML AMPUL.NEB INHALATION ×6 (03:09→23:09)
[2024-01-22] MEDS: 0.9% Normal Saline (1000mL) 1,000 ML 100 ML IV ×3 (04:38→23:29)
[2024-01-22] MEDS: 0.9% Saline Lock 10 ML Syringe IV (04:45)
[2024-01-22 05:09] LABS: Absolute Lymphocyte Count 0.22 X10^3/uL (0.83-4.51); Absolute Neutrophil Count 4.1 X10^3/uL (2.0-7.7); Basophil# 0.01 X10^3/uL; Basophil% 0.2 % (0-1); Hematocrit 38.1 % (37-47); Hemoglobin 11.3 g/dL (12.0-15.0); Lymphocyte # 0.22 X10^3/ul (0.83-4.51); Lymphocyte % 4.8 % (19-41); Mean Corp Hgb Conc 29.7 g/dL (32-36); Mean Corpuscular Hgb 32.1 pg (27.0-32.0); Mean Corpuscular Volume 108.2 fL (81-99); Mean Platelet Vol. 10.2 fl (6.2-12.0); Monocyte# 0.17 X10^3/uL; Monocyte% 3.7 % (0-10); NRBC Flagged by Analyzer 2.4 % (0-5); Neutrophil # 4.05 X10^3/uL (2.7-7.7); Neutrophil % 89.1 % (47-70); POSITIVE DIFFERENTIAL YES; Platelet Count 154 K/mm3 (150-450); RBC Distribution Width CV 15.4 % (11.6-14.6); RBC Distribution Width SD 59.9 fl (35.1-43.9); Red Blood Count 3.52 M/mm3 (4.2-5.4); White Blood Count 4.6 K/mm3 (4.4-11.0)
[2024-01-22 05:29] LABS: Anion Gap 7 (5-15); BUN 53 mg/dL (7-18); BUN/Creat Ratio 20.4 RATIO (10-20); Calcium,Total 7.6 mg/dL (8.5-10.1); Chloride 103 mmol/L (98-107); EST Glomerular Filtration Rate 19 mL/min (>60); Est Glom Filt Rate - Afr Amer 23 mL/min (>60); Estimated Creatinine Clearance 25.57 ml/min; Glucose 121 mg/dL (74-106); Magnesium 2.1 mg/dL (1.6-2.6); Phosphorus 5.6 mg/dL (2.5-4.9); Potassium 5.2 mmol/L (3.5-5.1); Sodium Level 138 mmol/L (136-145)
--- NOTE | 2024-01-22 07:07 | PCM.PN.HOSP ---
Reason for Visit Reason for Visit: Diagnoses Acute respiratory failure with hypoxia (01/21/24) Acute respiratory failure with hypercapnia (01/21/24) Subjective Subjective Patient seen remains on BiPAP her mentation improving. ABG still shows persistent respiratory acidosis Objective Data Objective Data Vital Signs: Vital Signs Temp Pulse Resp BP Pulse Ox O2 Del Method O2 Flow Rate 98.5 F 69 20 H 91/51 L 95 Bi-pap 5 01/22/24 04:00 01/22/24 07:00 01/22/24 07:00 01/22/24 07:00 01/22/24 07:00 01/22/24 07:00 01/22/24 01:00 FiO2 50 01/22/24 07:00 Oxygen Flow Rate (L/min) 5 Oxygen Delivery Method Bi-pap Weight: 114.3 kg Body Mass Index (BMI) 38.2 Intake & Output: Intake and Output for Last 24 Hours 01/20/24 01/21/24 01/22/24 23:59 23:59 23:59 Intake Total 1233.33 / 1233.33 916.67 / 916.67 Output Total 150 / 400 550 / 550 Balance 1083.33 / 833.33 366.67 / 366.67 Lab / Micro Data 01/22/24 04:43 01/22/24 04:43 Labs: Laboratory Results - last 24 hr 01/21/24 11:30: WBC 5.6, RBC 3.67 L, Hgb 11.7 L, Hct 40.0, MCV 109.0 H, MCH 31.9, MCHC 29.3 L, RDW Std Deviation 62.0 H, RDW Coeff of Alverto 15.8 H, Plt Count 173, MPV 10.5, Immature Gran % (Auto) 2.700 H, Neut % (Auto) 75.4 H, Lymph % (Auto) 12.3 L, [place] % (Auto) 8.7, Eos % (Auto) 0.0, Baso % (Auto) 0.9, Absolute Neuts (auto) 4.2, Absolute Lymphs (auto) 0.69 L, Nucleated RBC % 2.0, Sodium 134 L, Potassium 4.8, Chloride 99, Carbon Dioxide 27.0, Anion Gap 8, BUN 49 H, Creatinine 2.65 H, Estim Creat Clear Calc 25.41, Est GFR (MDRD) Af Amer 23 L, Est GFR (MDRD) Non-Af 19 L, BUN/Creatinine Ratio 18.5, Glucose 126 H, Calcium 8.0 L, Total Bilirubin 0.30, AST 24, ALT 21, Alkaline Phosphatase 55, Troponin I High Sens 277 H*, Total Protein 7.0, Albumin 2.9 L, Globulin 4.1, Albumin/Globulin Ratio 0.7 L 01/21/24 11:47: PT 17.1 H, INR 1.4, APTT 35.9, Lactic Acid 0.5, B-Natriuretic Peptide 830.1 H 01/21/24 14:02: Troponin I High Sens 315 H*, Urine Color Yellow, Urine Clarity Sl. Cloudy, Urine pH 5.0, Ur Specific [place] 1.025, Urine Protein 100 H, Urine Glucose (UA) Normal, Urine Ketones Negative, Urine Occult Blood 10 H, Urine Nitrite Negative, Urine Bilirubin 3 H, Urine Urobilinogen 1 H, Ur Leukocyte Esterase 25 H, Urine RBC 0 SEEN, Urine WBC 0-5 SEEN, Ur Squamous Epith Cells 0 SEEN, Urine Bacteria 0 SEEN, Urine Mucus 0 SEEN 01/22/24 04:43: WBC 4.6, RBC 3.52 L, Hgb 11.3 L, Hct 38.1, MCV 108.2 H, MCH 32.1 H, MCHC 29.7 L, RDW Std Deviation 59.9 H, RDW Coeff of Alverto 15.4 H, Plt Count 154, MPV 10.2, Immature Gran % (Auto) 2.200 H, Neut % (Auto) 89.1 H, Lymph % (Auto) 4.8 L, [place] % (Auto) 3.7, Eos % (Auto) 0.0, Baso % (Auto) 0.2, Absolute Neuts (auto) 4.1, Absolute Lymphs (auto) 0.22 L, Nucleated RBC % 2.4, Sodium 138, Potassium 5.2 H, Chloride 103, Carbon Dioxide 28.0, Anion Gap 7, BUN 53 H, Creatinine 2.60 H, Estim Creat Clear Calc 25.57, Est GFR (MDRD) Af Amer 23 L, Est GFR (MDRD) Non-Af 19 L, BUN/Creatinine Ratio 20.4 H, Glucose 121 H, Calcium 7.6 L, Phosphorus 5.6 H, Magnesium 2.1 Micro: Microbiology 01/21/24 14:04 Mucosa - Nasopharyngeal Respiratory Panel (PCR) - Final 01/21/24 14:04 Mucosa - Nose SARS-CoV-2, Influenza & RSV (PCR) - Final ABG Data ABG results: ABG 01/21/24 01/21/24 11:32 13:16 Specimen Type ART ART Sample Site L Brach R Brach pH 7.07 L* 7.06 L* Bicarbonate Actual 30.6 H 30.2 H Total CO2 34 34 Base Excess 0 0 O2 Saturation 89 L 83 L O2 % 15.0 40.0 ABG pCO2 106.6 H* 107.0 H* ABG pO2 82 71 L Respiration Rate 18 O2 Delivery Device NRB Not entered Vent Mode Not entered avaps Tidal Volume 500.0 POC PEEP 14 Peak Inspir Pressure 28 Crit Call To/Read Back Yes Yes Blood Gas Notified Whom ug ug Blood Gas Notified Time 11:33:30 13:17:41 Radiography Diagnostic Testing: Radiology Impression Chest X-Ray 01/21/24 11:52 IMPRESSION: Lower lung infiltrates or edema and small pleural effusions. Electronically Signed: Luis Antonio Trevino MD at 12:59 EDT , Physical Exam Narrative GENERAL: Patient on BiPAP HEENT: Atraumatic; normocephalic EYES; Anicteric, Normal Conjunctiva NECK; supple, normal thyroid, RESPIRATORY: Diminished to auscultation CARDIOVASCULAR: Regular S1 S2, GI: soft, normoactive bowel sounds, : No Renal angle tenderness; EXTREMITIES: edema, no clubbing, MUSCULOSKELETAL: no muscle wasting NEURO: Lethargic but arouses with sternal rub SKIN: No Rash PSYCH; lethargic Assessment & Plan Assessment/Plan (1) Acute respiratory failure with hypoxia and hypercapnia: PLAN: Plan Patient is a 73-year-old lady with history of COPD admitted with increasing lethargy 1. Acute metabolic encephalopathy ? Secondary to combination of hypoxic and hypercapnic respiratory failure secondary to COPD with acute exacerbation. Admitted to the intensive care unit for management of underlying clinical etiology ? 01/22/2024; level of sensorium improving 2. Acute hypoxic and hypercapnic respiratory failure respiratory acidosis ? Secondary to COPD with acute exacerbation with significant hypercapnia. Admitted to the intensive care unit with treatment of COPD ? 01/22/2024 respiratory acidosis improved attempt to wean patient off so far unsuccessful 3. COPD with acute exacerbation ? Patient started on bronchodilator treatment, systemic steroid as well as antibiotic therapy. Patient placed on oxygen via BiPAP titrated to keep saturation greater than 90. 4. Acute kidney injury ? Superimposed on chronic kidney disease stage III. Baseline creatinine from 10/26/2023 was 1.7, creatinine on admission was 2.65 patient started on hydration daily monitoring with BMP ordered 5. Dyslipidemia ? Patient is on gemfibrozil currently being held 6. History of CVA ? Per history 7. History of pulmonary embolism ? Patient patient is on apixaban plan is to resume once home meds have been reconciled 8. Class III obesity with BMI of 40 ? Complicating care 9.Anemia ? Secondary to chronic disorder monitoring H&H and transfuse if patient becomes symptomatic or hemoglobin falls below 7 10. DVT prophylaxis ? Patient already on systemic anticoagulation with apixaban Time spent in the patient's overall evaluation,decision-making process, review of diagnostic data, adjustment of management, discussion with other providers, nursing nursing and ancillary staff involved in patient's care documentation, 55 minutes Charges/Coding Visit Charges Inpatient E&M: 16860 [facility] Hosp L3
[2024-01-22 09:14] LABS: Allen Test Positive; Base Excess -2 mmol/L (-2 to +2); Bicarbonate 26.5 mmol/L (22-26); Blood Gas Specimen Type ART; Mode Not entered; O2 Delivery Device BiPAP; PEEP 18; PO2 139 mmHG (75-100); RR 18; SITE R Radial; SO2 98 % (95-99); Total Carbon Dioxide 29 mmol/L; pCO2 74.5 mmHg (35-45); pH 7.16 (7.35-7.45)
[2024-01-22] MEDS: guaiFENesin 1,200 MG Tablet 1200 MG PO (09:26)
[2024-01-22] MEDS: APIXABAN 5 MG TABLET PO ×2 (09:26→20:55)
--- NOTE | 2024-01-22 09:28 | CPS ---
Rt attempted abg times 1 in left radial without success. Rt obtained abg in right radial times 1. Results of testing notified to patients nurse. Results sent to dr. Metzger. no adverse reaction noted.
--- NOTE | 2024-01-22 15:39 | NURSING ---
patient refusing to wear bipap and airvo at this times. Benefits of bipap and airvo explained to patient.Continues to refuse to wear. Currently on 6L nc and tolerating well.
--- NOTE | 2024-01-22 15:51 | CPS ---
took patient off of bipap and airvo at 15:40 at her request. She states she does not want either one anymore. nursing informed. put on 6 lpm nasal cannula
[2024-01-23] VITALS (26 sets, daily range): BP systolic 87–162; BP diastolic 51–93; PULSE 57–88; RESP 18–32; TEMP 36.6–37.3; O2SAT 91–100; BMI 39.1
[2024-01-23 01:50] LABS: Allen Test Positive; Base Excess 0 mmol/L (-2 to +2); Bicarbonate 26.7 mmol/L (22-26); Blood Gas Specimen Type ART; Mode Not entered; O2 Delivery Device Cannula; PO2 68 mmHG (75-100); SITE R Radial; SO2 91 % (95-99); Total Carbon Dioxide 28 mmol/L; pCO2 55.5 mmHg (35-45); pH 7.29 (7.35-7.45)
--- NOTE | 2024-01-23 02:03 | NURSING ---
Addendum entered by Shira Wasserman 01/23/24 02:14: Pt received a full bath and is now on Bipap. Original Note: Upon entering room pt had removed dewitt, midline, PIV, and ECG leads. New IV and dewitt placed. Dr. Stone ordered ABG's to be drawn. CO2 trending down to 55.
[2024-01-23 06:21] LABS: Absolute Neutrophil Count 3.9 X10^3/uL (2.0-7.7); Basophil# 0.02 X10^3/uL; Basophil% 0.4 % (0-1); Hematocrit 35.2 % (37-47); Hemoglobin 10.6 g/dL (12.0-15.0); Lymphocyte % 11.5 % (19-41); Mean Corp Hgb Conc 30.1 g/dL (32-36); Mean Corpuscular Volume 106.3 fL (81-99); Mean Platelet Vol. 10.1 fl (6.2-12.0); Monocyte# 0.64 X10^3/uL; Monocyte% 12.3 % (0-10); Neutrophil % 74.8 % (47-70); POSITIVE DIFFERENTIAL YES; Platelet Count 146 K/mm3 (150-450); RBC Distribution Width CV 15.2 % (11.6-14.6); RBC Distribution Width SD 57.9 fl (35.1-43.9); Red Blood Count 3.31 M/mm3 (4.2-5.4); White Blood Count 5.2 K/mm3 (4.4-11.0)
[2024-01-23 06:58] LABS: Anion Gap 8 (5-15); BUN 57 mg/dL (7-18); BUN/Creat Ratio 24.8 RATIO (10-20); Chloride 106 mmol/L (98-107); EST Glomerular Filtration Rate 22 mL/min (>60); Est Glom Filt Rate - Afr Amer 27 mL/min (>60); Estimated Creatinine Clearance 29.31 ml/min; Glucose 106 mg/dL (74-106); Potassium 4.4 mmol/L (3.5-5.1); Sodium Level 137 mmol/L (136-145)
[2024-01-23] MEDS: Ipratropium/Albuterol Sulfate 3 ML AMPUL.NEB INHALATION ×4 (07:02→19:40)
--- NOTE | 2024-01-23 07:20 | PCM.PN.HOSP ---
Reason for Visit Reason for Visit: Diagnoses Acute respiratory failure with hypoxia (01/21/24) Acute respiratory failure with hypercapnia (01/21/24) Subjective Subjective Patient seen per nursing staff patient was delirious during the night and repeating IV as well as Silverio catheter insisting she was going to walk home. Hypercarbia appears to be improving. Kidney function has however worsened. Ordered renal ultrasound for subsequent eval Objective Data Objective Data Vital Signs: Vital Signs Temp Pulse Resp BP Pulse Ox O2 Del Method O2 Flow Rate 98.5 F 63 23 H 110/60 96 Bi-pap 2 01/23/24 05:00 01/23/24 07:03 01/23/24 07:03 01/23/24 07:00 01/23/24 07:03 01/23/24 07:00 01/23/24 00:00 FiO2 30 01/23/24 07:03 Oxygen Flow Rate (L/min) 2 Oxygen Delivery Method Bi-pap Weight: 117.2 kg Body Mass Index (BMI) 39.1 Intake & Output: Intake and Output for Last 24 Hours 01/21/24 01/22/24 01/23/24 23:59 23:59 23:59 Intake Total 1233.33 / 1233.33 3161.67 / 3161.67 Output Total 150 / 400 1000 / 1000 825 / 825 Balance 1083.33 / 833.33 2161.67 / 2161.67 -825 / -825 Lab / Micro Data 01/23/24 06:10 01/23/24 06:10 Labs: Laboratory Results - last 24 hr 01/23/24 06:10: WBC 5.2, RBC 3.31 L, Hgb 10.6 L, Hct 35.2 L, MCV 106.3 H, MCH 32.0, MCHC 30.1 L, RDW Std Deviation 57.9 H, RDW Coeff of Alverto 15.2 H, Plt Count 146 L, MPV 10.1, Immature Gran % (Auto) 1.000 H, Neut % (Auto) 74.8 H, Lymph % (Auto) 11.5 L, [place] % (Auto) 12.3 H, Eos % (Auto) 0.0, Baso % (Auto) 0.4, Absolute Neuts (auto) 3.9, Absolute Lymphs (auto) 0.60 L, Nucleated RBC % 1.0, Sodium 137, Potassium 4.4, Chloride 106, Carbon Dioxide 23.0, Anion Gap 8, BUN 57 H, Creatinine 2.30 H, Estim Creat Clear Calc 29.31, Est GFR (MDRD) Af Amer 27 L, Est GFR (MDRD) Non-Af 22 L, BUN/Creatinine Ratio 24.8 H, Glucose 106, Calcium 8.0 L Micro: Microbiology 01/21/24 14:04 Mucosa - Nasopharyngeal Respiratory Panel (PCR) - Final 01/21/24 14:04 Mucosa - Nose SARS-CoV-2, Influenza & RSV (PCR) - Final ABG Data ABG results: ABG 01/22/24 01/23/24 09:07 01:45 Specimen Type ART ART Sample Site R Radial R Radial pH 7.16 L* 7.29 L Bicarbonate Actual 26.5 H 26.7 H Total CO2 29 28 Base Excess -2 0 O2 Saturation 98 91 L O2 % 50.0 2.0 ABG pCO2 74.5 H* 55.5 H ABG pO2 139 H 68 L [place]oman Test Positive Positive Respiration Rate 18 O2 Delivery Device BiPAP Cannula Vent Mode Not entered Not entered Tidal Volume 500.0 POC PEEP 18 Crit Call To/Read Back Yes Blood Gas Notified Whom dr nation Blood Gas Notified Time 09:09:57 Physical Exam Narrative GENERAL: Patient on BiPAP HEENT: Atraumatic; normocephalic EYES; Anicteric, Normal Conjunctiva NECK; supple, normal thyroid, RESPIRATORY: Diminished to auscultation CARDIOVASCULAR: Regular S1 S2, GI: soft, normoactive bowel sounds, : No Renal angle tenderness; EXTREMITIES: edema, no clubbing, MUSCULOSKELETAL: no muscle wasting NEURO: Lethargic but arouses with sternal rub SKIN: No Rash PSYCH; lethargic Assessment & Plan Assessment/Plan (1) Acute respiratory failure with hypoxia and hypercapnia: PLAN: Plan Patient is a 73-year-old lady with history of COPD admitted with increasing lethargy 1. Acute metabolic encephalopathy ? Secondary to combination of hypoxic and hypercapnic respiratory failure secondary to COPD with acute exacerbation. Admitted to the intensive care unit for management of underlying clinical etiology ? 01/22/2024; level of sensorium improving ? 01/23/2024. Patient did experience episode of delirium during the evening ripping out her IV as well as Silverio catheter. Her hypercapnia is however improving 2. Acute hypoxic and hypercapnic respiratory failure respiratory acidosis ? Secondary to COPD with acute exacerbation with significant hypercapnia. Admitted to the intensive care unit with treatment of COPD ? 01/22/2024 respiratory acidosis improved attempt to wean patient off so far unsuccessful ? 01/23/2024; patient has been weaned off BiPAP currently on nasal cannula 3. COPD with acute exacerbation ? Patient started on bronchodilator treatment, systemic steroid as well as antibiotic therapy. Patient placed on oxygen via BiPAP titrated to keep saturation greater than 90. 4. Acute kidney injury ? Superimposed on chronic kidney disease stage III. Baseline creatinine from 10/26/2023 was 1.7, creatinine on admission was 2.65 patient started on hydration daily monitoring with BMP ordered ? 01/23/2024; kidney function continues to worsen ordered renal ultrasound for subsequent eval 5. Dyslipidemia ? Patient is on gemfibrozil currently being held 6. History of CVA ? Per history 7. History of pulmonary embolism ? Patient patient is on apixaban plan is to resume once home meds have been reconciled 8. Class III obesity with BMI of 40 ? Complicating care 9.Anemia ? Secondary to chronic disorder monitoring H&H and transfuse if patient becomes symptomatic or hemoglobin falls below 7 10. DVT prophylaxis ? Patient already on systemic anticoagulation with apixaban 11. Physical deconditioning ? Requested for PT OT eval and manager social responsibility to assist with discharge planning Time spent in the patient's overall evaluation,decision-making process, review of diagnostic data, adjustment of management, discussion with other providers, nursing nursing and ancillary staff involved in patient's care documentation, 50 minutes Charges/Coding Visit Charges Inpatient E&M: 50322 Subs Hosp L3
[2024-01-23] MEDS: predniSONE 20 MG Tablet 40 MG PO (07:51)
[2024-01-23] MEDS: levoFLOXacin IV 750 MG/150 ML BAG 100 MG IV (07:51)
[2024-01-23] MEDS: guaiFENesin 1,200 MG Tablet 1200 MG PO ×2 (07:51→20:52)
[2024-01-23] MEDS: APIXABAN 5 MG TABLET PO ×2 (07:51→20:51)
[2024-01-23] MEDS: 0.9% Normal Saline (1000mL) 1,000 ML 100 ML IV ×2 (10:47→20:50)
[2024-01-23] MEDS: 0.9% Saline Lock 10 ML Syringe IV (10:47)
--- NOTE | 2024-01-23 12:21 | NURSING ---
Pt is wanting to leave AMA back to [place]. Risks of leaving AMA explained to both Niece and Patient. Message sent to Dr Metzger. Niece is wondering if there is anyway she can be discharged today.
--- NOTE | 2024-01-23 12:51 | PN_ITS ---
Progress Note Got a notification from patient's nurse regarding patient threatening to sign out AGAINST MEDICAL ADVICE. Went over patient's case her progress so far and the need for patient to stay 1 more day. Did discuss with patient on the need to be assessed for home oxygen and also to undergo renal ultrasound to evaluate her impaired kidney function. Patient was still insistent on going home with her niece who happens to be a POA stated patient makes her own decisions. All attempts made for patient to rescind her decision proved futile. She was ins tructed to come back to the emergency department if she changed her mind.
--- NOTE | 2024-01-23 12:52 | DS.PCM_ITS ---
Providers Date of Admission: 01/21/24 Date of Discharge: 01/23/24 Primary Care Physician: Dr. Matthew Valdivia, DO Reason For Visit: AMS Diagnosis Discharge Diagnosis (1) Acute respiratory failure with hypoxia and hypercapnia: Status: Acute Code(s): J96.01 - Acute respiratory failure with hypoxia; J96.02 - Acute respiratory failure with hypercapnia Plan Patient is a 73-year-old lady with history of COPD admitted with increasing lethargy 1. Acute metabolic encephalopathy ? Secondary to combination of hypoxic and hypercapnic respiratory failure secondary to COPD with acute exacerbation. Admitted to the intensive care unit for management of underlying clinical etiology ? 01/22/2024; level of sensorium improving ? 01/23/2024. Patient did experience episode of delirium during the evening ripping out her IV as well as Silverio catheter. Her hypercapnia is however improving Patient elected to sign out AGAINST MEDICAL ADVICE attempt made for patient to rescind her decision proved futile 2. Acute hypoxic and hypercapnic respiratory failure respiratory acidosis ? Secondary to COPD with acute exacerbation with significant hypercapnia. Admitted to the intensive care unit with treatment of COPD ? 01/22/2024 respiratory acidosis improved attempt to wean patient off so far unsuccessful ? 01/23/2024; patient has been weaned off BiPAP currently on nasal cannula 3. COPD with acute exacerbation ? Patient started on bronchodilator treatment, systemic steroid as well as antibiotic therapy. Patient placed on oxygen via BiPAP titrated to keep saturation greater than 90. 4. Acute kidney injury ? Superimposed on chronic kidney disease stage III. Baseline creatinine from 10/26/2023 was 1.7, creatinine on admission was 2.65 patient started on hydration daily monitoring with BMP ordered ? 01/23/2024; kidney function continues to worsen ordered renal ultrasound for subsequent eval 5. Dyslipidemia ? Patient is on gemfibrozil currently being held 6. History of CVA ? Per history 7. History of pulmonary embolism ? Patient patient is on apixaban plan is to resume once home meds have been reconciled 8. Class III obesity with BMI of 40 ? Complicating care 9.Anemia ? Secondary to chronic disorder monitoring H&H and transfuse if patient becomes symptomatic or hemoglobin falls below 7 10. DVT prophylaxis ? Patient already on systemic anticoagulation with apixaban 11. Physical deconditioning ? Requested for PT OT eval and school social worker to assist with discharge planning Time spent in the patient's overall evaluation,decision-making process, review of diagnostic data, adjustment of management, discussion with other providers, nursing nursing and ancillary staff involved in patient's care documentation, 50 minutes Medications at Discharge Home Medications gemfibrozil 600 mg tablet 600 mg PO BID Check with primary doctor 03/03/19 gabapentin 100 mg capsule 100 mg PO TID 30 days #90 caps 05/09/21 loperamide 2 mg tablet 2 mg PO Q6H PRN Loose Stool 11/30/21 acetaminophen 325 mg capsule 325 mg PO Q6H PRN fever or pain 01/21/24 apixaban 5 mg tablet (Eliquis) 5 mg PO BID 01/21/24 Weight / BMI Weight Weight: 117.2 kg Body Mass Index (BMI) 39.1 ABG / Lab / Microbiology Data 01/23/24 06:10 01/23/24 06:10 Laboratory: Laboratory Results - last 24 hr 01/23/24 06:10: WBC 5.2, RBC 3.31 L, Hgb 10.6 L, Hct 35.2 L, MCV 106.3 H, MCH 32.0, MCHC 30.1 L, RDW Std Deviation 57.9 H, RDW Coeff of Alverto 15.2 H, Plt Count 146 L, MPV 10.1, Immature Gran % (Auto) 1.000 H, Neut % (Auto) 74.8 H, Lymph % (Auto) 11.5 L, [place] % (Auto) 12.3 H, Eos % (Auto) 0.0, Baso % (Auto) 0.4, Absolute Neuts (auto) 3.9, Absolute Lymphs (auto) 0.60 L, Nucleated RBC % 1.0, Sodium 137, Potassium 4.4, Chloride 106, Carbon Dioxide 23.0, Anion Gap 8, BUN 57 H, Creatinine 2.30 H, Estim Creat Clear Calc 29.31, Est GFR (MDRD) Af Amer 27 L, Est GFR (MDRD) Non-Af 22 L, BUN/Creatinine Ratio 24.8 H, Glucose 106, Calcium 8.0 L Microbiology: Microbiology 01/21/24 14:04 Mucosa - Nasopharyngeal Respiratory Panel (PCR) - Final 01/21/24 14:04 Mucosa - Nose SARS-CoV-2, Influenza & RSV (PCR) - Final ABG: ABG 01/23/24 01:45 Specimen Type ART Sample Site R Radial pH 7.29 L Bicarbonate Actual 26.7 H Total CO2 28 Base Excess 0 O2 Saturation 91 L O2 % 2.0 ABG pCO2 55.5 H ABG pO2 68 L Noman Test Positive O2 Delivery Device Cannula Vent Mode Not entered Meaningful Use Info Meaningful Use Meaningful Use Diagnoses (Choose all that apply): None applicable Ischemic Stroke Statin Dosing Therapy Reference: STATIN DOSE THERAPY REFERENCE: * Patients > 75 years receive moderate or high dose statin therapy. * Patients 75 years or YOUNGER should receive HIGH intensity statin dose unless contraindicated. You will be required to document reason for non-treatment if statin daily dose does not meet guidelines. HIGH DOSE STATIN THERAPY DAILY Atorvastatin > than or = to 40 mg Rosuvastatin > than or = to 20 mg Amlodipine + Atorvastatin > than or = to 2.5/40 mg Ezetimibe + Simvastatin 10/80 mg Simvastatin 80mg Discharge Plan Admission Admit Date/Time: 01/21/24 13:01 Attending Provider: Con Metzger Primary Care Provider: Matthew Valdivia Discharge Orders/Prescriptions Prescriptions: No Action gemfibrozil 600 MG tablet 600 mg PO BID gabapentin 100 mg Capsule 100 mg PO TID 30 Days Qty: 90 0RF loperamide 2 mg Tablet 2 mg PO Q6H PRN (Reason: Loose Stool) Eliquis 5 mg tablet 5 mg PO BID acetaminophen 325 mg capsule 325 mg PO Q6H PRN (Reason: fever or pain) Referrals / Follow Up: Matthew Valdivia DO [Primary Care Provider] - Disposition Disposition (needs filled in before D/C Order can be placed): Against Medical Advice Charges/Coding Visit Charges Inpatient E&M: 15746 Disch Hosp >30min
[2024-01-24] VITALS (9 sets, daily range): BP systolic 143–166; BP diastolic 59–84; PULSE 60–81; RESP 18–25; TEMP 36.5–37; O2SAT 84–95; BMI 39.3
[2024-01-24 02:26] LABS: Absolute Lymphocyte Count 0.55 X10^3/uL (0.83-4.51); Absolute Neutrophil Count 3.5 X10^3/uL (2.0-7.7); Basophil# 0.01 X10^3/uL; Basophil% 0.2 % (0-1); Hematocrit 34.3 % (37-47); Hemoglobin 10.6 g/dL (12.0-15.0); Lymphocyte # 0.55 X10^3/ul (0.83-4.51); Lymphocyte % 11.7 % (19-41); Mean Corp Hgb Conc 30.9 g/dL (32-36); Mean Corpuscular Hgb 32.1 pg (27.0-32.0); Mean Corpuscular Volume 103.9 fL (81-99); Mean Platelet Vol. 9.7 fl (6.2-12.0); Monocyte# 0.56 X10^3/uL; Monocyte% 11.9 % (0-10); NRBC Flagged by Analyzer 0.9 % (0-5); Neutrophil # 3.52 X10^3/uL (2.7-7.7); Neutrophil % 75.1 % (47-70); POSITIVE DIFFERENTIAL YES; Platelet Count 139 K/mm3 (150-450); RBC Distribution Width CV 15.1 % (11.6-14.6); RBC Distribution Width SD 56.4 fl (35.1-43.9); White Blood Count 4.7 K/mm3 (4.4-11.0)
[2024-01-24 02:39] LABS: Anion Gap 5 (5-15); BUN 49 mg/dL (7-18); BUN/Creat Ratio 24.9 RATIO (10-20); Calcium,Total 8.2 mg/dL (8.5-10.1); Chloride 108 mmol/L (98-107); Creatinine, Serum 1.97 mg/dL (0.55-1.02); EST Glomerular Filtration Rate 26 mL/min (>60); Est Glom Filt Rate - Afr Amer 32 mL/min (>60); Estimated Creatinine Clearance 34.22 ml/min; Glucose 107 mg/dL (74-106); Potassium 4.1 mmol/L (3.5-5.1); Sodium Level 139 mmol/L (136-145)
--- NOTE | 2024-01-24 03:54 | CPS ---
Patient refuses to wear Bipap per RN
[2024-01-24] MEDS: 0.9% Normal Saline (1000mL) 1,000 ML 100 ML IV (05:14)
--- NOTE | 2024-01-24 07:20 | US_ITS ---
STUDY: RENAL ULTRASOUND - COMPLETE REASON FOR EXAM: Female, 73 years old. [place] TECHNIQUE: Ultrasound evaluation of the kidneys was performed with real-time and static fall-scale imaging. COMPARISON: Comparison is made with prior study May 07, 2021. FINDINGS: RIGHT KIDNEY: Normal location of the right kidney, which is normal in size. The right kidney measures 12.4 cm x 6.5 cm x 6.1 cm. There is diffuse thinning of the renal cortex. The renal cortex measures 1 cm. Several cysts are seen. The largest measures 1.8 cm x 1.7 cm x 1.3 cm. There are no right renal calculi. There is no right hydronephrosis. DISTAL RIGHT URETER: There is non-visualization of the distal right ureter. There is no demonstrated right ureterovesical junction calculus. There is a visualized right ureteral jet. LEFT KIDNEY: Normal location of the left kidney, which is normal in size. The left kidney measures 10.5 cm x 6.1 cm x 5.2 cm. There is a normal cortex of the left kidney. The renal cortex measures 1.1 cm. There is no left renal mass or cyst. There are no left renal calculi. There is no left hydronephrosis. DISTAL LEFT URETER: There is non-visualization of the distal left ureter. There is no demonstrated left ureterovesical junction calculus. There is a visualized left ureteral jet. BLADDER: The bladder was not visualized. A Silverio catheter is seen within the empty bladder. US/Kidney and Bladder IMPRESSION: Mild right cortical thinning. Right renal cysts. Electronically Signed: Óscar Leyva MD at 12:03 EDT ,
[2024-01-24] MEDS: predniSONE 20 MG Tablet 40 MG PO (07:35)
[2024-01-24] MEDS: APIXABAN 5 MG TABLET PO (07:35)
[2024-01-24] MEDS: guaiFENesin 1,200 MG Tablet 1200 MG PO (07:35)
--- NOTE | 2024-01-24 09:37 | CASEMGMT ---
Social Work- TANG called Tim and left a message for Juana to determine if pt is able to return at d/c. YOLANDE Koehler
--- NOTE | 2024-01-24 10:22 | CASEMGMT ---
Addendum entered by Yohana Alvares 01/24/24 11:11: Fax confirmation rec'd. Yohana Alvares DC Planning Asst. Original Note: Discharge Planning Updates faxed to Juana Sarmiento @ [place]. Yohana Alvares DC Planning Asst.
[2024-01-24] MEDS: Ipratropium/Albuterol Sulfate 3 ML AMPUL.NEB INHALATION ×2 (11:52→15:24)
--- NOTE | 2024-01-24 13:37 | CASEMGMT ---
Social Work- TANG completed/updated HCPOA per pt request. Pt dtr Amirah and son Real were present. Dtr Amirah asked about medicaid, as pt has no assets and minimal income. TANG completed referral to [facility] and provided [facility]'s contact information to myranda. Rodo., YOLANDE
--- NOTE | 2024-01-24 13:37 | CASEMGMT ---
Social Work Precert has been obtained.? Physician updated and pt is ready for discharge today.? SW faxed discharge to TCU. SW met with pt and they are agreeable to discharge plan as stated above.? Pt dtr Amirah and son Real and bedside nurse notified of discharge. Disposition:?TCU, skilled level of care under convalescent stay. YOLANDE Koehler
--- NOTE | 2024-01-24 13:54 | CASEMGMT ---
Social Work- SW called and spoke with Emeka, nursing at [facility], who reports that pt can return. Oxygen will need set up and delivered prior to pt arrival. RNCM advised. YOLANDE Koehler
--- NOTE | 2024-01-24 14:43 | DCINST_ITS ---
Discharge Instructions Diet Discharge Diet: No restrictions Activity Discharge Activity: Return to Normal Activity Weight Bearing Status: Weight bearing as tolerated Follow Up Care Test Results: Test results from this visit will be discussed in further detail at your follow- up appointment, if applicable. Discharge Plan Admission Admit Date/Time: 01/21/24 13:01 Primary Reason for Your Visit: Respiratory failure, exacerbation of COPD Attending Provider: Matthew Fields Primary Care Provider: Matthew Valdivia Consulting Providers: Con Metzger Instructions Additional Instructions / Restrictions: Use oxygen at 2 L/min via nasal cannula at all times Discharge Orders/Prescriptions Prescriptions: New prednisone 20 mg Tablet 40 mg PO DAILY@0800 Qty: 14 0RF Rx Instructions: 2 tablets daily for 7 days then discontinue albuterol sulfate 90 mcg/actuation HFA aerosol inhaler 2 puff inhalation Q6H PRN (Reason: shortness of breath or wheezing) Qty: 8.5 0RF budesonide-formoterol [Breyna] 80-4.5 mcg/actuation HFA aerosol inhaler 2 puff inhalation BID Qty: 10.2 0RF Continued gemfibrozil 600 MG tablet 600 mg PO BID gabapentin 100 mg Capsule 100 mg PO TID 30 Days Qty: 90 0RF loperamide 2 mg Tablet 2 mg PO Q6H PRN (Reason: Loose Stool) Eliquis 5 mg tablet 5 mg PO BID acetaminophen 325 mg capsule 325 mg PO Q6H PRN (Reason: fever or pain) Referrals / Follow Up: Matthew Valdivia DO [Primary Care Provider] - Within 2 Weeks Disposition Disposition (needs filled in before D/C Order can be placed): Assisted Living
--- NOTE | 2024-01-24 14:43 | PCM.HOSP.N ---
Hospitalist Note Oxygen testing reviewed, patient is ambulatory in the home and community and requires home oxygen with portability
--- NOTE | 2024-01-24 14:45 | CASEMGMT ---
RN CISCO updated that patient will need oxygen at discharge. RN CISCO called benson Fernandes to update regarding oxygen, prefers [facility]. Script received. KENYA PECK udpated by TANG that oxygen will need to be delivered to [place] prior to patient arrival. RN CISCO sent referral via [facility] to [facility]. KENYA PECK called Nayeli at [facility] to arrange for oxygen delivery prior to patient discharge. Nayeli to update CM when oxygen is delivered so transport can be setup. KENYA PECK updated SW. CM will continue to follow this patient and plan for a safe discharge.
--- NOTE | 2024-01-24 14:55 | DS.PCM_ITS ---
Providers Date of Admission: 01/21/24 Date of Discharge: 01/24/24 Primary Care Physician: Dr. Matthew Valdivia DO Reason For Visit: AMS Diagnosis Discharge Diagnosis (1) Acute respiratory failure with hypoxia and hypercapnia: Status: Acute Code(s): J96.01 - Acute respiratory failure with hypoxia; J96.02 - Acute respiratory failure with hypercapnia Plan 1. Acute metabolic encephalopathy-secondary to combined acute respiratory failure secondary to COPD with exacerbation #2 COPD with acute exacerbation #3 acute kidney injury on a backdrop of chronic kidney disease stage IIIb #4 acute combined respiratory failure secondary to exacerbation of COPD Medications at Discharge Home Medications gemfibrozil 600 mg tablet 600 mg PO BID Check with primary doctor 03/03/19 gabapentin 100 mg capsule 100 mg PO TID 30 days #90 caps 05/09/21 loperamide 2 mg tablet 2 mg PO Q6H PRN Loose Stool 11/30/21 acetaminophen 325 mg capsule 325 mg PO Q6H PRN fever or pain 01/21/24 apixaban 5 mg tablet (Eliquis) 5 mg PO BID 01/21/24 albuterol sulfate 90 mcg/actuation aerosol inhaler 2 puff inhalation Q6H PRN shortness of breath or wheezing #8.5 grams 01/24/24 budesonide-formoterol HFA 80 mcg-4.5 mcg/actuation aerosol inhaler (Breyna) 2 puff inhalation BID #10.2 grams 01/24/24 prednisone 20 mg tablet 40 mg (2 x 20 mg) PO DAILY@0800 #14 tabs 01/24/24 Hospital Course Operations None Procedures None Summary of Care Provided Minutes Spent on Discharge: 31 Hospital Course: This 73-year-old white female presented to the emergency room at [facility] from an assisted living facility due to altered mental status, she had been found to be increasingly lethargic and somnolent. Workup in the emergency room demonstrated significant respiratory acidosis and the patient was placed on BiPAP and admitted to the intensive care unit for acute combined respiratory failure. Patient was placed on bronchodilator treatment and systemic corticosteroids as well as antibiotics, she was able to be weaned off BiPAP and onto nasal cannula oxygen. Patient's creatinine was elevated on admission she was felt to have acute kidney injury, she was started on IV fluids and her creatinine improved during her hospital stay. Patient one-time threatened to leave AGAINST MEDICAL ADVICE but then relented. On 01/24/2024, patient was seen and examined: On examination she appeared in good health and spirits, she does not appear to be in any distress. Vital signs as documented. Skin warm and dry and without overt rashes. Neck without JVD, thyroid appears normal, trachea is midline, neck is supple. Lungs clear, normal air movement was noted. Heart exam notable for regular rhythm, normal sounds and absence of murmurs, rubs or gallops. Abdomen unremarkable and without evidence of organomegaly, masses, or abdominal aortic enlargement, bowel sounds are present in all 4 quadrants, no abdominal tenderness was noted. Extremities nonedematous, no cyanosis was noted, no clubbing was noted. Neuro: Cranial nerves II through XII are grossly intact, no focal motor deficits were noted, sensation to light touch and pinprick is intact, motor exam 5/5 throughout. Psych: Patient is alert and oriented x3, she does not appear anxious or depressed, she does not appear agitated. Patient appeared to be stable for discharge back to assisted living on 01/24/2024, patient required 2 L of oxygen continuously via nasal cannula and this was set up for the patient. Weight / BMI Weight Weight: 117.8 kg Body Mass Index (BMI) 39.3 ABG / Lab / Microbiology Data 01/24/24 02:15 01/24/24 02:15 Laboratory: Laboratory Results - last 24 hr 01/24/24 02:15: WBC 4.7, RBC 3.30 L, Hgb 10.6 L, Hct 34.3 L, MCV 103.9 H, MCH 32.1 H, MCHC 30.9 L, RDW Std Deviation 56.4 H, RDW Coeff of Alverto 15.1 H, Plt Count 139 L, MPV 9.7, Immature Gran % (Auto) 1.100 H, Neut % (Auto) 75.1 H, L ymph % (Auto) 11.7 L, [place] % (Auto) 11.9 H, Eos % (Auto) 0.0, Baso % (Auto) 0.2, Absolute Neuts (auto) 3.5, Absolute Lymphs (auto) 0.55 L, Nucleated RBC % 0.9, Sodium 139, Potassium 4.1, Chloride 108 H, Carbon Dioxide 26.0, Anion Gap 5, BUN 49 H, Creatinine 1.97 H, Estim Creat Clear Calc 34.22, Est GFR (MDRD) Af Amer 32 L, Est GFR (MDRD) Non-Af 26 L, BUN/Creatinine Ratio 24.9 H, Glucose 107 H, C alcium 8.2 L Microbiology: Microbiology 01/21/24 14:04 Mucosa - Nasopharyngeal Respiratory Panel (PCR) - Final 01/21/24 14:04 Mucosa - Nose SARS-CoV-2, Influenza & RSV (PCR) - Final Radiography Diagnostic Testing: Radiology Impression Renal Ultrasound 01/24/24 07:20 IMPRESSION: Mild right cortical thinning. Right renal cysts. Electronically Signed: Óscar Leyva MD at 12:03 EDT , D/C Instructions Discharge Diet: No restrictions Weight Bearing Status: Weight bearing as tolerated Meaningful Use Info Meaningful Use Meaningful Use Diagnoses (Choose all that apply): None applicable Ischemic Stroke Statin Dosing Therapy Reference: STATIN DOSE THERAPY REFERENCE: * Patients > 75 years receive moderate or high dose statin therapy. * Patients 75 years or YOUNGER should receive HIGH intensity statin dose unless contraindicated. You will be required to document reason for non-treatment if statin daily dose does not meet guidelines. HIGH DOSE STATIN THERAPY DAILY Atorvastatin > than or = to 40 mg Rosuvastatin > than or = to 20 mg Amlodipine + Atorvastatin > than or = to 2.5/40 mg Ezetimibe + Simvastatin 10/80 mg Simvastatin 80mg Discharge Plan Admission Admit Date/Time: 01/21/24 13:01 Primary Reason for Your Visit: Respiratory failure, exacerbation of COPD Attending Provider: Matthwe Fields Primary Care Provider: Matthew Valdivia Consulting Providers: Con Metzger Instructions Additional Instructions / Restrictions: Use oxygen at 2 L/min via nasal cannula at all times Discharge Orders/Prescriptions Prescriptions: New prednisone 20 mg Tablet 40 mg PO DAILY@0800 Qty: 14 0RF Rx Instructions: 2 tablets daily for 7 days then discontinue albuterol sulfate 90 mcg/actuation HFA aerosol inhaler 2 puff inhalation Q6H PRN (Reason: shortness of breath or wheezing) Qty: 8.5 0RF budesonide-formoterol [Breyna] 80-4.5 mcg/actuation HFA aerosol inhaler 2 puff inhalation BID Qty: 10.2 0RF Continued gemfibrozil 600 MG tablet 600 mg PO BID gabapentin 100 mg Capsule 100 mg PO TID 30 Days Qty: 90 0RF loperamide 2 mg Tablet 2 mg PO Q6H PRN (Reason: Loose Stool) Eliquis 5 mg tablet 5 mg PO BID acetaminophen 325 mg capsule 325 mg PO Q6H PRN (Reason: fever or pain) Referrals / Follow Up: Matthew Valdivia DO [Primary Care Provider] - Within 2 Weeks Disposition Disposition (needs filled in before D/C Order can be placed): Assisted Living Charges/Coding Visit Charges Inpatient E&M: 71595 Disch Hosp >30min
--- NOTE | 2024-01-24 16:26 | CASEMGMT ---
Social Work- RNCM reported oxygen was delivered to [facility]. TANG called [facility] to confirm fax number and oxygen delivery. TANG faxed over d/c instructions. TANG advised [facility] to set up transport. TANG confirmed with [facility] that fax was received and transport time of 5pm. TANG called Dena, pt benson, to advise of d/c. Dena reports that she is on her way to the hospital and will follow pt to [facility]. TANG advised ICU nurse of transport time and Dena's intent to come in to assist pt in getting ready and follow her over. Plan: Return to [facility], YOLANDE Bateman
--- NOTE | 2024-01-24 16:42 | CASEMGMT ---
Discharge Planning SW faxed discharge instructions to [facility]. Physicians will transport patient by wheelchair at . Nursing, SW, and patient updated. SW updated pts Dena knowles. Yohana Alvares DC Planning Asst.
== END 2024-01-24 17:25 | disposition home or self-care (01) | DRG 189 ==
LOC: ED 12:55 → ICU 01-23 12:53
PROVIDERS: Admitting Provider Internal Medicine; Emergency Provider Emergency Medicine; PCP Family Medicine; Visit Provider Internal Medicine
DX: J96.01 Acute respiratory failure with hypoxia (principal); G93.41 Metabolic encephalopathy; J44.1 Chronic obstructive pulmonary disease with (acute) exacerbation; N17.9 Acute kidney failure, unspecified; D69.6 Thrombocytopenia, unspecified; I95.9 Hypotension, unspecified; N18.32 Chronic kidney disease, stage 3b; I12.9 Hypertensive chronic kidney disease with stage 1 through stage 4 chronic kidney disease, or unspecified chronic kidney disease; Z68.39 Body mass index [BMI] 39.0-39.9, adult; E66.01 Morbid (severe) obesity due to excess calories; J96.02 Acute respiratory failure with hypercapnia; J43.9 Emphysema, unspecified; E78.5 Hyperlipidemia, unspecified; Z66 Do not resuscitate; G89.29 Other chronic pain; Z79.01 Long term (current) use of anticoagulants; Z79.899 Other long term (current) drug therapy; Z86.73 Personal history of transient ischemic attack (TIA), and cerebral infarction without residual deficits; Z86.718 Personal history of other venous thrombosis and embolism; Z87.891 Personal history of nicotine dependence
CPT/HCPCS: 36600; 51702; 71045; 76770; 80048; 80053; 81001; 82803; 83605; 83735; 83880; 84100; 84484; 85025; 85610; 85730; 87631; 87633; 93005; 94002; 94003; 94640; 94660; 94668; 94762; 97162; 97165; 97530; 97802; 99252; 99285; J7030; J7040; A4216; G0463

== ENCOUNTER → 2024-03-10 | Outpatient (CLI) | payer MEDICARE, OTHER, SELFPAY ==
--- NOTE | 2024-03-10 12:52 | VDLE_ITS ---
Reason For Study: Left leg swelling Procedure LEFT This is a venous duplex using B-mode, color CFV is compressible, spontaneous, phasic, flow and spectral Doppler. competent, and demonstrates normal Exam performed in department. augmentation. Patient was scanned in reverse Trendelenburg FV is compressible, spontaneous, phasic, position during reflux assessment. competent and demonstrates normal augmentation. POP V is compressible, phasic, and INCOMPETENT for greater than 1.0 second. T/P Trunk is compressible. PTV is compressible. LT PerV is compressible. SFJ is INCOMPETENT and measures 0.65 cm. GSV proximal thigh measures 0.73 x 0.70 cm. GSV above knee is competent. GSV at knee measures 0.46 x 0.47 cm. GSV below knee is INCOMPETENT for greater than 0.5 seconds. ASV proximal calf is INCOMPETENT for greater than 0.5 seconds and measures 0.18 x 0.18 cm. SSV proximal calf is competent and measures 0.16 x 0.14 cm. VL/Venous Duplex US, Unilateral Interpretation Summary Deep veins of the left lower extremity are patent and compressible segmentally. There is no evidence of left lower extremity deep vein thrombosis. The left great saphenous vein carlito ears patent and compressible segmentally. Positive for reflux in the left popliteal vein, saphenofemoral junction, great saphenous vein below the knee, and accessory saphenous vein in the calf Ordering Physician: Matthew Valdivia Referring Physician: Matthew Valdivia Performed By: Cheryl Moss RVT
== END | disposition home or self-care (01) ==
LOC: CVS 12:51
PROVIDERS: PCP Family Medicine; Referring Provider Family Medicine; Visit Provider Family Medicine
DX: M79.89 Other specified soft tissue disorders (principal); Z86.718 Personal history of other venous thrombosis and embolism
CPT/HCPCS: 93971

== ENCOUNTER → 2024-03-29 | Outpatient (CLI) | payer MEDICARE, OTHER, SELFPAY ==
[2024-03-29 15:58] LABS: Syphilis Antibodies Non-reactive
== END | disposition home or self-care (01) ==
LOC: MTLAB 11:25
PROVIDERS: PCP Family Medicine; Referring Provider Physician Assistant; Visit Provider Physician Assistant
DX: L08.9 Local infection of the skin and subcutaneous tissue, unspecified (principal)
CPT/HCPCS: 36415; 86780

== ENCOUNTER → 2024-05-03 | Outpatient (CLI) | payer MEDICARE, OTHER, SELFPAY ==
--- NOTE | 2024-05-03 10:53 | CDU_ITS ---
Version 2 Reason For Study: Carotid Bruit Rt. Velocities/BP Lt. Velocities/BP Prox CCA 132.1/13.3 cm/sec. Prox CCA 124.1/12.7 cm/sec. Mid CCA 105.2/15.7 cm/sec. Mid CCA 119.0/17.9 cm/sec. Dist CCA 81.5/6.6 cm/sec. Dist CCA 144.9/10.1 cm/sec. Prox ICA 134.5/38.6 cm/sec. Prox ICA 341.2/47.9 cm/sec. Mid ICA 60.2/13.3 cm/sec. Mid ICA 173.3/31.0 cm/sec. Dist ICA 113.8/17.9 cm/sec. Dist ICA 199.1/34.3 cm/sec. Rt. ICA/CCA = 1.1. Lt. ICA/CCA = 2.9. Prox ECA 92.5/0.0 cm/sec. Prox ECA 320.5/0.0 cm/sec. Abnormal waveform noted. Flow appears to Abnormal waveform noted. Flow appears to be retrograde. be retrograde. Right Extracranial There is intimal thickening but no significant atherosclerotic plaque noted in the right common carotid artery. There is heterogeneous, irregular atherosclerotic plaque noted in the right internal carotid artery. There is heterogeneous, irregular atherosclerotic plaque noted in the right external carotid artery. Left Extracranial There is heterogeneous, irregular atherosclerotic plaque noted in the left common carotid artery. There is heterogeneous, irregular atherosclerotic plaque noted in the left internal carotid artery. There is heterogeneous, irregular atherosclerotic plaque noted in the left external carotid artery. Procedure Carotid Duplex [id number]. This is a Carotid Duplex examination using B-mode, color flow and specral Doppler. Exam performed in department. . Preliminary report given to GISSELLE Fontana. VL/Carotid Duplex Ultrasound Interpretation Summary Moderate (50-69%) stenosis right extracranial internal carotid. Severe (>70%) stenosis left extracranial internal carotid. Patent and retrograde vertebrals bilaterally. Ordering Physician: Allie Coreas Referring Physician: Matthew Valdivia Performed By: Cheryl Moss RVT and Student
== END | disposition home or self-care (01) ==
LOC: CVS 10:53
PROVIDERS: PCP Family Medicine; Referring Provider Physician Assistant; Visit Provider Physician Assistant
DX: R09.89 Other specified symptoms and signs involving the circulatory and respiratory systems (principal)
CPT/HCPCS: 93880

== ENCOUNTER → 2024-06-21 | Outpatient (CLI) | payer MEDICARE, OTHER, SELFPAY ==
[2024-06-21] MEDS: 0.9% Normal Saline (500mL Bag) 500 ML IV (13:08)
[2024-06-21 13:10] VITALS: BP 121/72; PULSE 59; RESP 16; O2SAT 100; BMI 38.7
[2024-06-21 14:20] VITALS: BP 133/72; PULSE 65; RESP 16; O2SAT 98
--- NOTE | 2024-06-21 14:35 | CT_ITS ---
EXAM: CT ANGIOGRAPHY HEAD AND NECK WITH INTRAVENOUS CONTRAST CLINICAL INDICATION: L ICA stenosis TECHNIQUE: [place] [facility] [place]/head and neck CT angiography protocol performed with intravenous contrast. This CT exam was performed using one or more of the following dose reduction techniques: automated exposure control, adjustment of the mA and/or kV according to patient size, and/or use of iterative reconstruction technique. MIP reconstructed images were created and reviewed. CONTRAST: 100 cc of Isovue-370 IV. RADIATION DOSE: CTDIvol = 31.35 mGy, DLP = 1627.03 mGy-cm COMPARISON: No relevant prior studies available. FINDINGS: HEAD: RIGHT ANTERIOR CEREBRAL ARTERY: Unremarkable. No occlusion or significant stenosis. Anterior communicating artery is present. No aneurysm. RIGHT MIDDLE CEREBRAL ARTERY: Unremarkable. No occlusion or significant stenosis. No aneurysm. RIGHT POSTERIOR CEREBRAL ARTERY: Unremarkable. No occlusion or significant stenosis. No aneurysm. RIGHT INTRACRANIAL INTERNAL CAROTID ARTERY: Mild atherosclerotic changes right intracavernous internal carotid artery without hemodynamic significant stenosis. No dissection or occlusion. RIGHT INTRACRANIAL VERTEBRAL ARTERY: Unremarkable. No significant stenosis. No dissection or occlusion. LEFT ANTERIOR CEREBRAL ARTERY: Unremarkable. No occlusion or significant stenosis. No aneurysm. LEFT MIDDLE CEREBRAL ARTERY: Unremarkable. No occlusion or significant stenosis. No aneurysm. LEFT POSTERIOR CEREBRAL ARTERY: Unremarkable. No occlusion or significant stenosis. No aneurysm. LEFT INTRACRANIAL INTERNAL CAROTID ARTERY: Mild atherosclerotic changes left intracavernous internal carotid artery without hemodynamic significant stenosis. No dissection or occlusion. LEFT INTRACRANIAL VERTEBRAL ARTERY: Unremarkable. No significant stenosis. No dissection or occlusion. BASILAR ARTERY: Unremarkable. No occlusion or significant stenosis. No aneurysm. OTHER VASCULATURE: No vascular malformation. NECK: RIGHT COMMON CAROTID ARTERY: Unremarkable. No significant stenosis. No dissection or occlusion. RIGHT EXTRACRANIAL INTERNAL CAROTID ARTERY: Dense atherosclerotic calcifications right carotid bulb and proximal right internal carotid artery with an approximate 50% diameter stenosis. No dissection or occlusion. RIGHT EXTERNAL CAROTID ARTERY: Unremarkable. No occlusion. RIGHT EXTRACRANIAL VERTEBRAL ARTERY: Unremarkable. No significant stenosis. No dissection or occlusion. LEFT COMMON CAROTID ARTERY: Scattered atherosclerotic changes of the left common carotid artery without hemodynamically significant stenosis. No dissection or occlusion. LEFT EXTRACRANIAL INTERNAL CAROTID ARTERY: Dense atherosclerotic calcifications of the left carotid bulb and proximal left internal carotid artery with an approximate 65% diameter stenosis. No dissection or occlusion. LEFT EXTERNAL CAROTID ARTERY: Unremarkable. No occlusion. LEFT EXTRACRANIAL VERTEBRAL ARTERY: Unremarkable. No significant stenosis. No dissection or occlusion. THYROID: Low-density nodule measuring 1.1 cm left lobe of the thyroid. BRACHIOCEPHALIC AND SUBCLAVIAN ARTERIES: Unremarkable as visualized. No occlusion or significant stenosis. LUNG APICES: Unremarkable as visualized. HEAD and NECK: BONES/JOINTS: Unremarkable. No discrete lytic or blastic abnormalities. SOFT TISSUES: Unremarkable. CAROTID STENOSIS REFERENCE USING NASCET CRITERIA: % ICA stenosis = (1 - narrowest ICA diameter/diameter of distal cervical ICA) x 100. Mild - <50% stenosis. Moderate - 50-69% stenosis. Severe - 70-94% stenosis. Near occlusion - 95-99% stenosis. Occluded - 100% stenosis. CT/CTA Head AND Neck W/ Contrast IMPRESSION: 1. No large vessel occlusion or significant intracranial vascular abnormality. 2. Dense atherosclerotic calcifications of the left carotid bulb and proximal left internal carotid artery with an approximate 65% diameter stenosis. 3. Dense atherosclerotic calcifications right carotid bulb and proximal right internal carotid artery with an approximate 50% diameter stenosis. 4. Mild atherosclerotic changes right intracavernous internal carotid artery without hemodynamic significant stenosis. 5. Mild atherosclerotic changes left intracavernous internal carotid artery without hemodynamic significant stenosis. 6. Low-density nodule measuring 1.1 cm left lobe of the thyroid. No follow-up is necessary. Electronically Signed: Alo Fairbanks MD at 22:27 EST ,
== END | disposition home or self-care (01) ==
LOC: CT 11:55
PROVIDERS: PCP Family Medicine; Referring Provider Physician Assistant; Visit Provider Physician Assistant
DX: I65.22 Occlusion and stenosis of left carotid artery (principal)
CPT/HCPCS: 70496; 70498; Q9967

== ENCOUNTER 2024-10-31 13:11 | Inpatient (IN) | payer MEDICARE, OTHER, SELFPAY ==
[2024-10-31] VITALS (24 sets, daily range): BP systolic 89–139; BP diastolic 41–97; PULSE 54–78; RESP 12–95; TEMP 36.4–37; O2SAT 69–100; BMI 41.3; BMI 41.6
--- NOTE | 2024-10-31 13:31 | EKG12_ITS ---
Test Reason : SOB Blood Pressure : */* mmHG Vent. Rate : 61 BPM Atrial Rate : 61 BPM P-R Int : 176 ms QRS Dur : 84 ms QT Int : 398 ms P-R-T Axes : 76 18 68 degrees QTcB Int : 400 ms Normal sinus rhythm with sinus arrhythmia Normal ECG Confirmed by PORSHA ROMERO, LUKASZ ([id number]), subeditor NAMITA OVIEDO ([id number]) on 11/06/2024 7:08:06 AM Referred By: Confirmed By: LUKASZ STORY MD
--- NOTE | 2024-10-31 13:31 | RAD_ITS ---
PROCEDURE: CHEST PA AND LATERAL 10/31/2024 REASON FOR EXAM: SOB TECHNIQUE: Frontal and lateral views of the chest. COMPARISON: 01/21/2024 CHEST FINDINGS: Lungs: Prominent bilateral lung markings particularly in the lower lobes. Can not exclude a developing infiltrate. Pleura: Bilateral pleural effusions blunt the lateral and posterior costophrenic angles. Heart: Cardiac enlargement. Mediastinum/Estephania: No widening. No hilar masses. Great vessels: Unremarkable. Bones/soft tissues: Dorsal fusion with bilateral Nathan rods and screws. RAD/Chest PA and Lateral IMPRESSION: Prominent lung markings bilaterally. Can not exclude developing infiltrate. Small bilateral pleural effusions. Cardiac enlargement. Other nonacute findings documented above. Reading Location: [place] [address]
--- NOTE | 2024-10-31 13:39 | EX.ED.DYSGE1 ---
HPI History of Present Illness Chief Complaint: Shortness of Breath Narrative Narrative: Patient is a 73-year-old female past medical history of CVA, pulmonary embolism on Eliquis, COPD, hypertension who presented to the emergency department with chief complaint of family noticing that she looked blue. According the patient she went to bed last night and felt well. She states that today she got up early this morning and noted that she felt weak try to get up off the toilet but was ultimately able to do so and went back downstairs to lay on the couch and noted that she put her oxygen on which she wears 2 L at night. She states that she is not on oxygen during the day. Patient states that she felt slightly off earlier as well, when presented to triage she was noted to be hypoxic to 69% on room air. Patient states that she has been compliant with all her medications [facility] Medical History Constipation Emphysema lung Thrombocytopenia Stroke/cerebrovascular accident History of pulmonary embolism HLD (hyperlipidemia) Chronic back pain COPD (chronic obstructive pulmonary disease) HTN (hypertension) Home Medications ?Medication ?Instructions ?Recorded ?Last Taken ?Type gemfibrozil 600 mg tablet 600 mg PO BID Check with primary 03/03/19 10/31/24 History doctor apixaban 5 mg tablet (Eliquis) 5 mg PO BID 01/21/24 10/31/24 History docusate sodium 100 mg capsule 100 mg PO BID 10/31/24 10/31/24 History (Col-Rite) gabapentin 100 mg capsule 200 mg PO BID 10/31/24 10/31/24 History sulfamethoxazole 400 1 tab PO BID 10/31/24 10/31/24 History mg-trimethoprim 80 mg tablet Allergy/AdvReac Type Severity Reaction Status Date / Time No Known Allergies Allergy Verified 10/31/24 13:12 Family History Mother Heart disease Father Heart disease Surgical History Previous back surgery Social History (Updated 10/31/24 @ 13:42 by Jackeline Salinas) household members: spouse housing: assisted living facility Smoking Status: Former smoker alcohol intake: never substance use type: does not use ROS ROS ED ROS Narrative Constitutional: Pleasant lightheadedness denies dizziness, fevers or chills Eyes: Complains of double vision but states that this has been going on for months and is following up with the sausage cutter for this this is not new Cardiovascular: Denies chest pain or palpitations Respiratory: Denies coughing wheezing shortness of breath Abdomen: Denies abdominal pain nausea vomit diarrhea : Denies urinary symptoms Neurological: Denies any numbness, tingling complains of generalized weakness Musculoskeletal: Denies back pain Skin: Denies rashes or lesions EXAM Physical Exam Narrative Exam Narrative: General: Patient lying in bed rest comfortably did not appear to be in acute distress Head: Atraumatic, normocephalic Eyes: PERRL bilaterally, EOMI bilaterally, no conjunctival injection noted Neck: Soft, supple, trachea midline Cardiovascular: Regular rate and rhythm no murmurs gallops rubs noted Respiratory: Clear to auscultation bilaterally Abdomen: Soft, nondistended, no tenderness palpation Extremities: Radial pulses +2/4 in the bilateral extremities, +4/5 strength noted in the bilateral upper and lower extremities Neurological: Patient follow commands knew that she was at [facility] the year is 2024 NIH of 0 GCS 15 Skin: Warm, dry, intact no rashes or lesions noted Const Vital Signs: 10/31/24 13:12 10/31/24 13:16 10/31/24 13:17 Temperature 97.6 F L 97.6 F L Temperature Source Temporal Temporal Pulse Rate 61 61 Respiratory Rate 20 H 20 H Respiratory Effort Respiratory Depth Respiratory Pattern Blood Pressure 94/75 94/75 Blood Pressure Mean 81 81 Pulse Ox 69 69 98 Oxygen Delivery Method Room Air Room Air Nasal Cannula Oxygen Flow Rate (L/min) 3 Fraction of Inspired Oxygen (FIO2) 10/31/24 13:41 10/31/24 13:41 10/31/24 13:53 Temperature Temperature Source Pulse Rate 61 Respiratory Rate 16 Respiratory Effort Non-Labored Short of Breath Respiratory Depth Normal Respiratory Pattern Normal Blood Pressure Blood Pressure Mean Pulse Ox 96 Oxygen Delivery Method Nasal Cannula Nasal Cannula Oxygen Flow Rate (L/min) 3 3 Fraction of Inspired Oxygen (FIO2) 10/31/24 14:16 10/31/24 14:21 10/31/24 15:00 Temperature 98.3 F 98.6 F Temperature Source Oral Oral Pulse Rate 78 76 Respiratory Rate 19 H 23 H Respiratory Effort Respiratory Depth Respiratory Pattern Blood Pressure 123/97 H 100/57 L Blood Pressure Mean 105 71 Pulse Ox 98 94 94 Oxygen Delivery Method Non-Rebreather @ 15L/min Nasal Cannula Nasal Cannula Oxygen Flow Rate (L/min) 2 2 Fraction of Inspired Oxygen (FIO2) 10/31/24 15:44 10/31/24 16:00 10/31/24 16:23 Temperature 98.6 F Temperature Source Temporal Pulse Rate 68 60 Respiratory Rate 15 17 Respiratory Effort Respiratory Depth Respiratory Pattern Blood Pressure 89/50 L 116/54 L Blood Pressure Mean 63 74 Pulse Ox 100 95 Oxygen Delivery Method Bi-pap Oxygen Flow Rate (L/min) Fraction of Inspired Oxygen (FIO2) 30 10/31/24 16:30 10/31/24 17:00 10/31/24 17:09 Temperature 98 F Temperature Source Pulse Rate 60 63 63 Respiratory Rate 95 H 19 H 19 H Respiratory Effort Respiratory Depth Respiratory Pattern Blood Pressure 124/46 H 112/46 L 112/46 L Blood Pressure Mean 72 68 68 Pulse Ox 94 96 96 Oxygen Delivery Method Bi-pap Bi-pap Oxygen Flow Rate (L/min) Fraction of Inspired Oxygen (FIO2) 10/31/24 17:15 10/31/24 17:30 10/31/24 17:32 Temperature Temperature Source Pulse Rate 68 68 62 Respiratory Rate 22 H 15 16 Respiratory Effort Respiratory Depth Respiratory Pattern Normal Blood Pressure 112/41 L 124/59 H Blood Pressure Mean 62 73 Pulse Ox 100 Oxygen Delivery Method Oxygen Flow Rate (L/min) Fraction of Inspired Oxygen (FIO2) 30 MDM MDM MDM Narrative Medical decision making narrative: Patient is a 73-year-old female who presents to the emergency department with a chief complaint of lightheadedness and not feeling well, once again the patient was noted be hypoxic on room air to 69%. On the differential diagnosis includes but not limited to pneumonia, pneumothorax, ACS, PE although feel this less likely as she is chronically anticoagulated on Eliquis not missing doses. Once workup is obtained reviewed she will be reevaluated. Patient will be given DuoNeb and 30 cc/kg bolus of IV fluids based on ideal body weight for BMI of greater than 30 Patient's CBC was reviewed showed a white blood count of 4.8, hemoglobin of 10, platelet count was noted be 156. Patient's INR was 1.2, PT of 15, arterial blood gas was reviewed showed a respiratory acidosis with a pH 7.18 with a PCO2 88.1. Patient sodium was 139, potassium normal at 4.5, creatinine is elevated 1.71 she has underlying chronic kidney disease, lactic acid was less than 1. Patient AST and ALT were 19 and 8 respectively, troponin was 35 with delta troponin pending. Patient's EKG showed sinus rhythm with a rate of 61 bpm this was compared to EKG from January 21, 2024 which is largely unchanged. Patient's urinalysis reviewed and showed negative nitrites negative will leukocyte esterase 0-5 white cells with no bacteria noted. Patient's chest x-ray reviewed by radiology by myself which showed prominent lung markings bilaterally cannot exclude developing infiltrate. Small bilateral pleural effusions. Cardiac enlargement. Patient was given Rocephin and azithromycin at 1536 although there is no identifiable source infection at this time as she is not coughing anything up. After discussion with staff they notified me that the patient does not want to go on BiPAP I went back in and had a long discussion with the patient and she is now agreeable to BiPAP with Ativan she will be given 0.5 mg Ativan. At this point time do believe the patient will warrant admission to the hospital for her acute hypercapnic respiratory failure hypoxic. Patient's case will be discussed with hospitalist for admission. Discussed case with hospitalist who accept patient for admission. Patient is agreeable to plan. Patient's repeat blood gas was reviewed showed a pH 7.18 however pCO2 did improve to 76.9 we will increase her tidal volume and her pressure support. Repeat gas will be obtained. Critical care time 59 minutes Lab Data Labs: Laboratory Results - last 24 hr 10/31/24 10/31/24 10/31/24 13:30 14:55 15:28 WBC 4.8 RBC 3.15 L Hgb 10.0 L Hct 33.1 L MCV 105.1 H MCH 31.7 MCHC 30.2 L RDW Std Deviation 54.5 H RDW Coeff of Alverto 14.4 Plt Count 156 MPV 10.5 Immature Gran % (Auto) 1.400 H Neut % (Auto) 78.2 H Lymph % (Auto) 10.1 L Rolette % (Auto) 9.9 Eos % (Auto) 0.2 Baso % (Auto) 0.2 Absolute Neuts (auto) 3.8 Absolute Lymphs (auto) 0.49 L Nucleated RBC % 0 PT 15.0 H INR 1.2 APTT 32.4 Sodium 139 Potassium 4.5 Chloride 101 Carbon Dioxide 29.1 Anion Gap 9 BUN 27 H Creatinine 1.71 H Estim Creat Clear Calc 37.98 L Est GFR (MDRD) Non-Af 31 L BUN/Creatinine Ratio 15.8 Glucose 112 H Lactic Acid < 1.0 Calcium 8.9 Total Bilirubin 0.17 AST 19 ALT 8 Alkaline Phosphatase 66 Troponin T High Sens 35 H Troponin T Hi Sens 2 Hr 30 H NT pro BNP II 1111 H Total Protein 6.8 Albumin 3.7 Globulin 3.2 Albumin/Globulin Ratio 1.2 Urine Color Yellow Urine Clarity Cloudy Urine pH 6.0 Ur Specific [place] 1.020 Urine Protein 500 H Urine Glucose (UA) Normal Urine Ketones Negative Urine Occult Blood Negative Urine Nitrite Negative Urine Bilirubin Negative Urine Urobilinogen Normal Ur Leukocyte Esterase Negative Urine RBC 0-5 SEEN Urine WBC 0-5 SEEN Ur Squamous Epith Cells 0-5 SEEN Amorphous Sediment 3+ Urine Bacteria 0 SEEN Urine Mucus 0 SEEN ABG Data ABG results: ABG 10/31/24 10/31/24 14:02 17:24 Specimen Type ART ART Sample Site L Brach L Radial pH 7.18 L* 7.18 L* Bicarbonate Actual 32.5 H 28.6 H Total CO2 35 31 Base Excess 4 H 0 O2 Saturation 90 L 82 L O2 % 2.0 25.0 ABG pCO2 88.1 H* 76.9 H* ABG pO2 76 59 L Noman Test Positive Positive O2 Delivery Device Cannula BiPAP Vent Mode Not entered Not entered Crit Call To/Read Back Yes Yes Blood Gas Notified Whom chichi Blood Gas Notified Time 14:04:53 17:27:12 Radiography Diagnostic Testing: Clinical Impression(s) from Imaging Studies Chest X-Ray 10/31/24 13:31 IMPRESSION: Prominent lung markings bilaterally. Can not exclude developing infiltrate. Small bilateral pleural effusions. Cardiac enlargement. Other nonacute findings documented above. Reading Location: [place] [address] Discharge Plan Triage Chief Complaint: Shortness of Breath ED Provider: Janak Hernandez Dx/Rx/DC Orders Clinical Impression: Acute respiratory failure with hypoxia and hypercapnia, CHF (congestive heart failure) Prescriptions: No Action gemfibrozil 600 MG tablet 600 mg PO BID Eliquis 5 mg tablet 5 mg PO BID sulfamethoxazole-trimethoprim 400-80 mg tablet 1 tab PO BID gabapentin 100 mg capsule 200 mg PO BID docusate sodium [Col-Rite] 100 mg capsule 100 mg PO BID Primary Care Provider: Matthew Valdivia Referrals: Matthew Valdivia DO [Primary Care Provider] - Print Language: Austrian Disposition Disposition: Acute Care Hospital [facility]
[2024-10-31 13:43] LABS: Absolute Lymphocyte Count 0.49 X10^3/uL (0.83-4.51); Absolute Neutrophil Count 3.8 X10^3/uL (2.0-7.7); Basophil# 0.01 X10^3/uL; Basophil% 0.2 % (0-1); Eosinophil# 0.01 X10^3/uL; Eosinophils% 0.2 % (0-5); Hematocrit 33.1 % (37-47); Lymphocyte # 0.49 X10^3/ul (0.83-4.51); Lymphocyte % 10.1 % (19-41); Mean Corp Hgb Conc 30.2 g/dL (32-36); Mean Corpuscular Hgb 31.7 pg (27.0-32.0); Mean Corpuscular Volume 105.1 fL (81-99); Mean Platelet Vol. 10.5 fl (6.2-12.0); Monocyte# 0.48 X10^3/uL; Monocyte% 9.9 % (0-10); NRBC Flagged by Analyzer 0 % (0-5); Neutrophil # 3.77 X10^3/uL (2.7-7.7); Neutrophil % 78.2 % (47-70); POSITIVE DIFFERENTIAL YES; Platelet Count 156 K/mm3 (150-450); RBC Distribution Width CV 14.4 % (11.6-14.6); RBC Distribution Width SD 54.5 fl (35.1-43.9); Red Blood Count 3.15 M/mm3 (4.2-5.4); White Blood Count 4.8 K/mm3 (4.4-11.0)
[2024-10-31] MEDS: 0.9% Normal Saline (1000mL) 1,000 ML 999 ML IV ×2 (13:48→15:06)
[2024-10-31 13:52] LABS: International Normalized Ratio 1.2
[2024-10-31 13:53] LABS: Partial Thromboplast Time 32.4 Seconds (24.1-36.2)
[2024-10-31] MEDS: Ipratropium/Albuterol Sulfate 3 ML AMPUL.NEB INHALATION (13:53)
[2024-10-31 14:08] LABS: Allen Test Positive; Base Excess 4 mmol/L (-2 to +2); Bicarbonate 32.5 mmol/L (22-26); Blood Gas Specimen Type ART; Mode Not entered; O2 Delivery Device Cannula; PO2 76 mmHG (75-100); SITE L Brach; SO2 90 % (95-99); Time Given 14:04:53; Total Carbon Dioxide 35 mmol/L; pCO2 88.1 mmHg (35-45); pH 7.18 (7.35-7.45)
[2024-10-31 14:22] LABS: Troponin T High Sensitivity 35 ng/L (<=14)
[2024-10-31 14:23] LABS: ALB/GLOB Ratio 1.2 RATIO (0.9-2.4); AST(SGOT) 19 U/L (<=31); Alanine Aminotransfer ALT/SGPT 8 U/L (<=34); Albumin, Serum 3.7 g/dL (3.4-4.8); Alkaline Phosphatase 66 U/L (35-104); Anion Gap 9 (5-15); BUN 27 mg/dL (4-19); BUN/Creat Ratio 15.8 RATIO (10-20); Calcium,Total 8.9 mg/dL (7.6-11.0); Carbon Dioxide 29.1 mmol/L (21.0-32.0); Chloride 101 mmol/L (98-108); Creatinine, Serum 1.71 mg/dL (0.70-1.20); EST Glomerular Filtration Rate 31 (>60); Estimated Creatinine Clearance 37.98 ml/min (50-250); Globulin 3.2 g/dL (2.2-4.2); Glucose 112 mg/dL (70-99); Lactic Acid < 1.0 mmol/L (0.0-2.0); Potassium 4.5 mmol/L (3.3-5.1); Protein, Total 6.8 g/dL (5.9-8.4); Sodium Level 139 mmol/L (133-145); Total Bilirubin 0.17 mg/dL (0.00-1.30)
[2024-10-31 14:40] LABS: Pro- Brain NATRIURETIC PEPTIDE 1111 pg/mL (<=900)
[2024-10-31 15:02] LABS: Bacteria 0 SEEN /hpf (None Seen); Mucous, Urine 0 SEEN /hpf (<or=2+)
[2024-10-31 15:06] LABS: Color, Urine Yellow (Yellow); Glucose, Dipstick Normal (Normal); Ketone-Dipstick Negative (Negative); Leukocyte Esterase-Dipstick Negative /ul (Negative); Nitrite-Dipstick Negative (Negative); Occult Blood-Urine Negative /ul (Negative); Protein-Dipstick 500 mg/dl (Negative); Urine Bilirubin Dipstick Negative (Negative); Urine Clarity Cloudy (Clear); Urine Urobilinogen Normal (Normal)
[2024-10-31] MEDS: Lorazepam 2 MG/ML WCH Syringe 0.5 MG IV (15:29)
[2024-10-31 15:33] LABS: Red Blood Cells-Urine 0-5 SEEN /hpf (0-5); Squamous Epithelial Cells - UA 0-5 SEEN /hpf (5-10); White Blood Cells 0-5 SEEN /hpf (0-5)
[2024-10-31 15:34] LABS: Amorphous Sediment 3+
--- NOTE | 2024-10-31 15:39 | ED.RN ---
verbal order from dr. cadet to withhold rest of sepsis fluids.
[2024-10-31] MEDS: Ceftriaxone 2 GM in 0.9% Normal Saline (50mL MB+) 50 ML IV (15:57)
[2024-10-31] MEDS: 0.9% Normal Saline (500mL Bag) 500 ML 999 ML IV (15:59)
[2024-10-31 16:09] LABS: Troponin T High Sens 2 HR 30 ng/L (<=14)
--- NOTE | 2024-10-31 16:11 | ED.RN ---
notified Dr. Hernandez of manual BP 90/50. Held lasix. verbal order for 500 cc bolus.
[2024-10-31] MEDS: Azithromycin 500 MG in 0.9% Normal Saline (250mL Bag) 250 ML 255 MG IV (16:32)
--- NOTE | 2024-10-31 17:02 | CM.ED ---
Social work This SW was informed [facility] ED Registration (Giselle) that patient was initially refusing Bipap and entering Hospice care and may be in need of a SW consult. Per doctor's note, patient was later agreeable to Bipap. In looking through patient's chart, HCPOA documents on file do not match the POA listed next to patient's emergency contact of patient's niece, Dena Tirado. SW entered patient's room, introducing self and role at [facility]. SW asked about the discrepancy and Dena stated ability to bring in the updated documents tomorrow, 11/01/24 when coming to visit with patient. This information will be passed on to the acute SW team. Luz Maria Holt, FREELANCE RECR[employer]ITER, [employer]
[2024-10-31 17:29] LABS: Allen Test Positive; Base Excess 0 mmol/L (-2 to +2); Bicarbonate 28.6 mmol/L (22-26); Blood Gas Specimen Type ART; Mode Not entered; O2 Delivery Device BiPAP; PO2 59 mmHG (75-100); SITE L Radial; SO2 82 % (95-99); Time Given 17:27:12; Total Carbon Dioxide 31 mmol/L; pCO2 76.9 mmHg (35-45); pH 7.18 (7.35-7.45)
--- NOTE | 2024-10-31 17:34 | CPS ---
Increased AVAPS settings per MD after ABG results
--- NOTE | 2024-10-31 18:10 | PCM.HP.STD ---
HPI - General General Date of Admission: 10/31/24 Date of Service: 10/31/24 Chief Complaint: Shortness of breath HPI Narrative DESIRE CHAUDHRY, is a 73 F who presented to the emergency department at [facility] on 10/31/2024 with a chief complaint of shortness of breath. Patient told the emergency department that she went to bed last night and felt well and then got up early this morning and felt weak when she tried to get up off the toilet but was ultimately able to do so and then went back downstairs to lay down on the couch. At that time she put her oxygen on. She is supposed to wear 2 L at night however family reported that she is intermittently compliant with everything and, does what she wants. Family noticed that she looked blue at the time they visited. She reported she been compliant with all of her medicines lately however again family does report she is intermittently compliant. Patient was fairly sleepy at the time of my evaluation and was on BiPAP so is unable to obtain any further history from her at the time of my evaluation in the time of admission. Vital signs on presentation showed temperature of 97.6, heart rate 61, respiratory rate 20, blood pressure was 94/75 and pulse ox was 69% on room air. She improved to 98% on 3 L nasal cannula but remained labored so she was placed on BiPAP. CBC shows no leukocytosis. She has a chronic stable anemia with a hemoglobin of 10.0. She has a slight left shift which she does appear to have fairly chronically. Coags are slightly elevated which is to be suspected due to her Eliquis use at baseline. Chemistry panel shows stable CKD with normal electrolytes, glucose of 112 a lactic acid of less than 1 and normal LFTs. Her initial troponin was 35 with a delta of 30 and a 4-hour troponin of 32. Her proBNP is a bit elevated at 1111. COVID/flu/RSV is unremarkable. Blood and urine cultures were obtained in emergency department but are pending at the time of admission. Respiratory viral panel is pending. Chest x-ray shows prominent lung markings bilaterally, small bilateral pleural effusions with cardiac enlargement but no other acute findings. Patient has a significant severe kyphosis and restrictive lung disease related to her kyphosis and instrumentation for fixation. [facility] Medical History Chronic anemia Constipation Emphysema lung Thrombocytopenia Stroke/cerebrovascular accident History of pulmonary embolism HLD (hyperlipidemia) Chronic back pain COPD (chronic obstructive pulmonary disease) HTN (hypertension) Home Medications ?Medication ?Instructions ?Recorded ?Last Taken ?Type gemfibrozil 600 mg tablet 600 mg PO BID Check with primary 03/03/19 10/31/24 History doctor apixaban 5 mg tablet (Eliquis) 5 mg PO BID 01/21/24 10/31/24 History docusate sodium 100 mg capsule 100 mg PO BID 10/31/24 10/31/24 History ([facility]) gabapentin 100 mg capsule 200 mg PO BID 10/31/24 10/31/24 History sulfamethoxazole 400 1 tab PO BID 10/31/24 10/31/24 History mg-trimethoprim 80 mg tablet Allergy/AdvReac Type Severity Reaction Status Date / Time No Known Allergies Allergy Verified 10/31/24 13:12 Family History Mother Heart disease Father Heart disease Surgical History Previous back surgery Social History housing: assisted living facility Smoking Status: Former smoker alcohol intake: never substance use type: does not use ROS Review of Systems ROS Unobtainable: due to mental status Vital Signs Vital Signs Vital Signs: 10/31/24 13:12 10/31/24 13:16 10/31/24 13:17 Temperature 97.6 F L 97.6 F L Temperature Source Temporal Temporal Pulse Rate 61 61 Respiratory Rate 20 H 20 H Respiratory Effort Respiratory Depth Respiratory Pattern Blood Pressure 94/75 94/75 Blood Pressure Mean 81 81 Pulse Ox 69 69 98 Oxygen Delivery Method Room Air Room Air Nasal Cannula Oxygen Flow Rate (L/min) 3 Fraction of Inspired Oxygen (FIO2) 10/31/24 13:41 10/31/24 13:41 10/31/24 13:53 Temperature Temperature Source Pulse Rate 61 Respiratory Rate 16 Respiratory Effort Non-Labored Short of Breath Respiratory Depth Normal Respiratory Pattern Normal Blood Pressure Blood Pressure Mean Pulse Ox 96 Oxygen Delivery Method Nasal Cannula Nasal Cannula Oxygen Flow Rate (L/min) 3 3 Fraction of Inspired Oxygen (FIO2) 10/31/24 14:16 10/31/24 14:21 10/31/24 15:00 Temperature 98.3 F 98.6 F Temperature Source Oral Oral Pulse Rate 78 76 Respiratory Rate 19 H 23 H Respiratory Effort Respiratory Depth Respiratory Pattern Blood Pressure 123/97 H 100/57 L Blood Pressure Mean 105 71 Pulse Ox 98 94 94 Oxygen Delivery Method Non-Rebreather @ 15L/min Nasal Cannula Nasal Cannula Oxygen Flow Rate (L/min) 2 2 Fraction of Inspired Oxygen (FIO2) 10/31/24 15:44 10/31/24 16:00 10/31/24 16:23 Temperature 98.6 F Temperature Source Temporal Pulse Rate 68 60 Respiratory Rate 15 17 Respiratory Effort Respiratory Depth Respiratory Pattern Blood Pressure 89/50 L 116/54 L Blood Pressure Mean 63 74 Pulse Ox 100 95 Oxygen Delivery Method Bi-pap Oxygen Flow Rate (L/min) Fraction of Inspired Oxygen (FIO2) 30 10/31/24 16:30 10/31/24 17:00 10/31/24 17:09 Temperature 98 F Temperature Source Pulse Rate 60 63 63 Respiratory Rate 95 H 19 H 19 H Respiratory Effort Respiratory Depth Respiratory Pattern Blood Pressure 124/46 H 112/46 L 112/46 L Blood Pressure Mean 72 68 68 Pulse Ox 94 96 96 Oxygen Delivery Method Bi-pap Bi-pap Oxygen Flow Rate (L/min) Fraction of Inspired Oxygen (FIO2) 10/31/24 17:15 10/31/24 17:30 10/31/24 17:32 Temperature Temperature Source Pulse Rate 68 68 62 Respiratory Rate 22 H 15 16 Respiratory Effort Respiratory Depth Respiratory Pattern Normal Blood Pressure 112/41 L 124/59 H Blood Pressure Mean 62 73 Pulse Ox 100 Oxygen Delivery Method Oxygen Flow Rate (L/min) Fraction of Inspired Oxygen (FIO2) 30 Weight Weight: 116.3 kg Body Mass Index (BMI) 41.3 Physical Exam Const no apparent distress and well nourished; Negative for oriented x3, average body habitus or healthy appearing Constitutional Narrative: Morbidly obese, older, white female, lying in bed, appears comfortable, awakens and tries to communicate but fairly sleepy, does follow commands consistently, but patient does not appear toxic General Appearance: cooperative HEENT normocephalic, head/scalp atraumatic and hearing grossly normal bilaterally HEENT Narrative: Mucous membranes are dry but patient is on BiPAP currently, Mallampati is 3-4, no thrush noted Eyes conjunctivae normal Eyes Narrative: No scleral icterus Neck supple Neck Narrative: Neck is short and thick but trachea is midline Resp No normal respiratory effort, no use of accessory muscles and No clear to auscultation bilaterally Resp Narrative: Severely diminished diffusely with few scattered end expiratory wheezes, currently resting comfortably on BiPAP Auscultation: wheezes; Negative for crackles or rhonchi Cardio regular rate, regular rhythm, S1 normal heart sound, S2 normal heart sound, no murmurs, no rub, no gallops and no clicks GI normal to inspection, nondistended, normoactive bowel sounds, soft to palpation and non-tender GI Narrative: Large protuberant abdomen Extremity Extremity Narrative: Trace bilateral lower extremity pitting edema, no clubbing or cyanosis noted Skin Skin Narrative: No significant wounds, bilateral lower extremities are consistent with chronic venous stasis changes in the skin Neuro Neuro Narrative: Spontaneously moves all 4 extremities but does appear to be generally weak Psych Psych Narrative: Currently calm Results Lab / Micro Data 10/31/24 13:30 10/31/24 13:30 Labs: Laboratory Results - last 24 hr 10/31/24 13:30: WBC 4.8, RBC 3.15 L, Hgb 10.0 L, Hct 33.1 L, MCV 105.1 H, MCH 31.7, MCHC 30.2 L, RDW Std Deviation 54.5 H, RDW Coeff of [place] 14.4, Plt Count 156, MPV 10.5, Immature Gran % (Auto) 1.400 H, Neut % (Auto) 78.2 H, Lymph % (Auto) 10.1 L, [place] % (Auto) 9.9, Eos % (Auto) 0.2, Baso % (Auto) 0.2, Absolute Neuts (auto) 3.8, Absolute Lymphs (auto) 0.49 L, Nucleated RBC % 0, PT 15.0 H, INR 1.2, APTT 32.4, Sodium 139, Potassium 4.5, Chloride 101, Carbon Dioxide 29.1, Anion Gap 9, BUN 27 H, Creatinine 1.71 H, Estim Creat Clear Calc 37.98 L, Est GFR (MDRD) Non-Af 31 L, BUN/Creatinine Ratio 15.8, Glucose 112 H, Lactic Acid < 1.0, Calcium 8.9, Total Bilirubin 0.17, AST 19, ALT 8, Alkaline Phosphatase 66, Troponin T High Sens 35 H, NT pro BNP II 1111 H, Total Protein 6.8, Albumin 3.7, Globulin 3.2, Albumin/Globulin Ratio 1.2 10/31/24 14:55: Urine Color Yellow, Urine Clarity Cloudy, Urine pH 6.0, Ur Specific [place] 1.020, Urine Protein 500 H, Urine Glucose (UA) Normal, Urine Ketones Negative, Urine Occult Blood Negative, Urine Nitrite Negative, Urine Bilirubin Negative, Urine Urobilinogen Normal, Ur Leukocyte Esterase Negative, Urine RBC 0-5 SEEN, Urine WBC 0-5 SEEN, Ur Squamous Epith Cells 0-5 SEEN, Amorphous Sediment 3+, Urine Bacteria 0 SEEN, Urine Mucus 0 SEEN 10/31/24 15:28: Troponin T Hi Sens 2 Hr 30 H Micro: Microbiology 10/31/24 13:40 Mucosa - Nose SARS-CoV-2, Influenza & RSV (PCR) - Final ABG Data ABG results: ABG 10/31/24 10/31/24 14:02 17:24 Specimen Type ART ART Sample Site L Brach L Radial pH 7.18 L* 7.18 L* Bicarbonate Actual 32.5 H 28.6 H Total CO2 35 31 Base Excess 4 H 0 O2 Saturation 90 L 82 L O2 % 2.0 25.0 ABG pCO2 88.1 H* 76.9 H* ABG pO2 76 59 L Noman Test Positive Positive O2 Delivery Device Cannula BiPAP Vent Mode Not entered Not entered Crit Call To/Read Back Yes Yes Blood Gas Notified Whom [facility] Blood Gas Notified Time 14:04:53 17:27:12 Imaging Radiology Impression Chest X-Ray 10/31/24 13:31 IMPRESSION: Prominent lung markings bilaterally. Can not exclude developing infiltrate. Small bilateral pleural effusions. Cardiac enlargement. Other nonacute findings documented above. Reading Location: [place] [id number] Assessment & Plan Assessment/Plan (1) Acute respiratory failure with hypoxia and hypercapnia: (2) Elevated troponin: (3) Chronic obstructive pulmonary disease with (acute) exacerbation: PLAN: Plan Acute hypoxic and hypercapnic respiratory failure secondary to acute exacerbation of COPD - Patient does not seem to have cough or any signs of pneumonia at this time -Will hold off on antibiotics for now - COVID/flu/RSV are negative - Check respiratory viral panel - Blood and urine cultures were obtained in the emergency department - Was given 1 dose of IV Lasix in the ED as BNP was elevated however I do not feel she is in acute heart failure -Solu-Medrol 40 every 8 - Continue BiPAP and repeat ABG at 5 AM--> follow-up ABGs are showing resolution of her hypercapnia slowly - N.p.o. until off BiPAP - Aggressive pulmonary toilet with scheduled and as needed DuoNebs - Wean oxygen as able - Will need ambulatory pulse ox prior to discharge Elevated troponin - Highly suspect related to demand ischemia from hypoxemia - Will check echocardiogram with elevated BNP in addition to elevated troponin - Last echocardiogram showed EF of 60% with stage I diastolic dysfunction, RV systolic function appeared to be normal but pulmonary artery pressures were not estimated Toxic/metabolic encephalopathy - Related to acute hypercapnia - Seems to be slowly improving - Continue to follow Chronic macrocytic anemia - Hemoglobin is stable - Repeat in a.m. CKD stage IIIb - BUN is 27 serum creatinine 1.71 - Close to baseline - Will trend - Avoid nephrotoxins as able - No further workup required at this time Bilateral carotid artery stenosis - Mild right ICA/moderate left ICA - Continue risk factor modification - Continue outpatient follow-up with vascular surgery Chronic lymphedema secondary to venous insufficiency - IV diuretics given the emergency department - Does have evidence of venous reflux on venous vascular study History of pulmonary embolus - Continue home Eliquis COPD/emphysema - Interestingly patient is not on any home inhalers but has significant emphysematous changes on her CAT scan - Treatment as noted above - Recommend outpatient follow-up with pulmonary medicine after discharge History of thrombocytopenia - Currently normal - Will trend Hyperlipidemia - Continue home gemfibrozil Neuropathy - Continue home gabapentin Chronic constipation - Continue home docusate - As needed senna available Chronic back pain - As needed Tylenol DVT prophylaxis - Continue full dose Eliquis CODE STATUS -DNR CCA with no intubation Charges/Coding Visit Charges Inpatient E&M: 67357 Init Hosp L3
[2024-10-31 18:47] LABS: Troponin T High Sens 4 HR 32 ng/L (<=14)
--- NOTE | 2024-10-31 18:57 | ED.RN ---
PT BP 104/[address] THOMPSON NOTIFIED, WAS TOLD TO TALK TO ER DOC. DR. RESENDEZ NOTIFIED, WAS TOLD BP AND OTHER VITALS ARE STABLE. TO MONITOR AND SEND TO FLOOR WHEN READY.
--- NOTE | 2024-10-31 20:01 | ECHOCS_ITS ---
Reason For Study Reason For Study: CHF Procedure This was a 2D Doppler, Color Flow transthoracic echocardiogram. The study was technically difficult. Contrast injection was performed. Exam performed portable in patient room. Left Ventricle Mild concentric left ventricular hypertrophy. Normal LV size. The LV systolic function is normal. EF is 65 %. Stage 1 diastolic dysfunction. Right Ventricle Normal right ventricle. Atria The left atrium is severely enlarged. Normal right atrium. Prominent eustachian valve. Mitral Valve Trivial mitral valve insufficiency. Tricuspid Valve Trivial tricuspid valve insufficiency. Right ventricular systolic pressure estimated to be 47 mmHg. Aortic Valve Trisinus/trileaflet aortic valve. Aortic sclerosis, no stenosis. Pulmonic Valve The pulmonic valve is not well visualized. Great Vessels Mildly dilated aortic root. Pericardium/Pleural No pericardial effusion. Medication Diluted definity 2.5ml given slow IV push to enhance endocardial definition. MMode/2D Measurements & Calculations LVIDd: 5.4 cm IVSd: 1.2 cm Ao root diam: 4.1 cm LVIDs: 4.0 cm LVPWd: 1.3 cm LA dimension: 5.1 cm RVDd: 3.8 cm FS: 26.7 % LAV(MOD-bp): 70.2 ml LVAd ap4: 44.4 cm2 SV(MOD-sp4): 105.8 ml LAV(MOD-bp) Indexed: 31.5 ml/m2 LVLd ap4: 8.9 cm SI(MOD-sp4): 47.5 ml/m2 LAV(MOD-sp2): 71.8 ml EDV(MOD-sp4): 182.2 ml LAV(MOD-sp4): 68.9 ml EDV(sp4-el): 187.6 ml LVAs ap4: 25.0 cm2 LVLs ap4: 6.6 cm ESV(MOD-sp4): 76.4 ml ESV(sp4-el): 80.2 ml EF(MOD-sp4): 58.1 % EF(sp4-el): 57.2 % SV(sp4-el): 107.3 ml LA A4 area: 23.2 cm2 LA dimension(2D): 4.8 cm RA A4 area: 22.0 cm2 Time Measurements MV dec time: 0.12 sec Doppler Measurements & Calculations MV E max mikal: 101.8 cm/sec Lat Peak E' Mikal: 9.5 cm/sec Med Peak E' Mikal: 7.7 cm/sec MV A max mikal: 126.7 cm/sec E/E' lat: 10.8 E/E' med: 13.1 MV E/A: 0.80 MV V2 max: 151.2 cm/sec MV P1/2t max mikal: 122.5 cm/sec Ao V2 max: 172.2 cm/sec MV max P.1 mmHg MV P1/2t: 55.5 msec Ao max P.9 mmHg MV V2 mean: 83.9 cm/sec MV dec slope: 646.8 cm/sec2 MV mean P.3 mmHg MVA(P1/2t): 4.0 cm2 MV V2 VTI: 40.7 cm LV V1 max: 149.3 cm/sec TR max mikal: 282.9 cm/sec LV V1 max P.9 mmHg TR max P.0 mmHg ECHO/Echo Complete W/ Contrast Interpretation Summary The study was technically difficult. Mild concentric left ventricular hypertrophy. The LV systolic function is normal. EF is 65 %. Stage 1 diastolic dysfunction. The left atrium is severely enlarged. Right ventricular systolic pressure estimated to be 47 mmHg. Aortic sclerosis, no stenosis. Mildly dilated aortic root. Ordering Physician: Zhane Stone Performed By: Eladio Ho RCS
[2024-10-31] MEDS: APIXABAN 5 MG TABLET PO (21:21)
[2024-10-31] MEDS: Gabapentin 100 MG Capsule 200 MG PO (21:21)
[2024-10-31] MEDS: Docusate Sodium 100 MG Capsule PO (21:21)
[2024-10-31] MEDS: Acetaminophen 500 MG Tablet 1000 MG PO (21:21)
[2024-10-31] MEDS: guaiFENesin 1,200 MG Tablet 1200 MG PO (21:21)
[2024-10-31 21:36] LABS: Allen Test Positive; Base Excess 7 mmol/L (-2 to +2); Bicarbonate 34.2 mmol/L (22-26); Blood Gas Specimen Type ART; Mode Not entered; O2 Delivery Device Cannula; PO2 53 mmHG (75-100); SITE L Radial; SO2 79 % (95-99); Time Given 21:33:07; Total Carbon Dioxide 37 mmol/L; pCO2 77.3 mmHg (35-45); pH 7.25 (7.35-7.45)
--- OUTSIDE RECORDS SUMMARY | 2024-10-31 21:56 | XMS RPT_ITS | CCD ---
Author Organization [facility] Care Team Providers Care Aerographer Name Role Phone Dr. Matthew Valdivia Primary Care Provider [phone] Livier Whipple Emergency Provider [phone] Dr. Daisy Rivera Admit Provider Dr. Daisy Rivera Other Provider Dr. Jesus Jolley Other Provider Dr. Teja Zeng Other Provider Dr. Rupert Newell Attending Provider [phone] Teja Zeng Attending Provider Shea, Matthew Primary Care Unavailable [employer] Consulting Unavailable Con Nation Admitting Unavailable Matthew Fields Attending Unavailable TerMatthew elmore Consulting Unavailable Shea, Matthew Primary Care Unavailable Shea, Matthew Referring Unavailable Allie Coreas Attending Unavailable Yehuda Snider Attending Unavailable Shea, Matthew Primary Care Unavailable Shea, Matthew Referring Unavailable Shea, Matthew Attending Unavailable Shea, Matthew Primary Care Unavailable Shea, Matthew Referring Unavailable Shea, Matthew Primary Care Unavailable Shea, Matthew Referring Unavailable Shea, Matthew Attending Unavailable Con Nation Attending Unavailable Shea, Matthew Attending Unavailable Shea, Matthew Primary Care Unavailable Shea, Matthew Referring Unavailable Shea, Matthew Primary Care Unavailable Madalyn Jha Referring Unavailable Michael PAMadalyn Attending Unavailable Shea, Matthew Primary Care Unavailable CoreasSudhirAllie Attending Unavailable Coreas, Allie Referring Unavailable Shea, Matthew Primary Care Unavailable Con Nation Admitting Unavailable Mathtew Fields Attending Unavailable [employer] Consulting Unavailable Shea, Matthew Primary Care Unavailable Allie Coreas Referring Unavailable Allie Coreas Attending Unavailable Yehuda Snider Attending Unavailable Matthew Valdivia Primary Care Unavailable Allie Coreas Referring Unavailable Matthew Valdivia Primary Care Unavailable Matthew Valdivia Referring Unavailable Allie Coreas Attending Unavailable Medications Current Medications Medication Drug Class(es) Dates Sig (Normalized) Sig (Original) amoxicillin 500 mg oral capsule (3 sources) Penicillin-class Antibacterial Start: 12-04-2021 take 500 mg by mouth every twelve hours Amoxicillin Active 500 MG PO EVERY 12 HOURS 12 December 04, 2021 12:00am Apixaban (4 sources) Factor Xa Inhibitor Start: 05-09-2021 Apixaban (Eliquis Dvt-Pe Treat 30d Start) 5 mg (74 tabs) tablets,dose pack Active 0 MG PO TWICE A DAY May 09, 2021 1:00am dexamethasone 4 mg oral tablet (3 sources) Corticosteroid Start: 12-04-2021 take 6 mg by mouth once daily Dexamethasone Active 6 MG PO DAILY 9 December 04, 2021 12:00am doxycycline monohydrate 100 mg oral capsule (2 sources) Tetracycline-class Drug Start: 08-24-2022 take 100 mg by mouth twice daily Doxycycline Monohydrate Active 100 MG PO TWICE A DAY August 24, 2022 12:00am gabapentin 100 mg oral capsule (20 sources) Anti-epileptic Agent Start: 05-09-2021 take 100 mg by mouth three times daily Gabapentin Active 100 MG PO THREE TIMES A DAY May 09, 2021 1:00am Start: 05-06-2021 End: 05-09-2021 take 600 mg by mouth three times daily Gabapentin Discontinued 600 MG PO THREE TIMES A DAY May 06, 2021 1:00am May 09, 2021 12:50pm Start: 03-07-2019 End: 03-09-2019 take 100 mg by mouth twice daily at mealtime Gabapentin Discontinued 100 MG PO TWICE DAILY WITH MEALS March 07, 2019 5:38pm March 09, 2019 9:23pm Start: 03-03-2019 End: 03-07-2019 take 600 mg by mouth twice daily Gabapentin Discontinu ed 600 MG PO TWICE A DAY March 03, 2019 12:00am March 07, 2019 3:27pm gemfibrozil 600 mg oral tablet (4 sources) Peroxisome Proliferator Receptor alpha Agonist Start: 03-03-2019 take 600 mg by mouth twice daily Gemfibrozil Active 600 MG PO TWICE A DAY March 03, 2019 12:00am loperamide hydrochloride 2 mg oral tablet (4 sources) Opioid Agonist Start: 11-30-2021 take 2 mg by mouth every six hours Loperamide Active 2 MG PO EVERY 6 HOURS November 30, 2021 12:00am phentermine hydrochloride 37.5 mg oral tablet (4 sources) Sympathomimetic Amine Anorectic Start: 05-06-2021 take 37.5 mg by mouth once daily Phentermine Active 37.5 MG PO DAILY May 06, 2021 1:00am Completed/Discontinued Medications Medication Drug Class(es) Dates Sig (Normalized) Sig (Original) acetaminophen 325 mg oral tablet (4 sources) Start: 03-07-2019 End: 03-09-2019 take 650 mg by mouth every six hours as needed Acetaminophen Discontinued 650 MG PO EVERY 6 HOURS NEEDED March 07, 2019 12:00am March 09, 2019 9:21pm Food Supplemt, Lactose-Reduced (8 sources) Start: 03-07-2019 End: 03-09-2019 take 1 mL by mouth four times daily Food Supplemt, Lactose-Reduced Discontinued 120 ML PO 4 TIMES DAILY March 07, 2019 5:38pm March 09, 2019 9:21pm Start: 03-07-2019 End: 03-07-2019 take 1 mL by mouth four times daily Food Supplemt, Lactose-Reduced Discontinued 120 ML PO 4 TIMES DAILY March 07, 2019 12:00am March 07, 2019 5:38pm hydroCHLOROthiazide 25 mg / lisinopril 20 mg oral tablet (8 sources) Thiazide Diuretic, Angiotensin Converting Enzyme Inhibitor Start: 05-06-2021 End: 05-09-2021 Lisinopril-Hydrochlorothiazi de Discontinued 1 TABLET DAILY May 06, 2021 1:00am May 09, 2021 12:50pm Start: 10-18-2013 End: 03-07-2019 Lisinopril/Hydrochlorothiazi de (Zestoretic 20/25 Tablet) 1 TABLET tablet Discontinued 1 TABLET PO DAILY October 18, 2013 12:00am March 07, 2019 3:28pm menthol 0.0044 mg/mg / zinc oxide 0.2 mg/mg topical ointment (4 sources) Start: 03-07-2019 End: 03-07-2019 Menthol-Zinc Oxide Discontinued 1 APPLIC TOPICAL THREE TIMES A DAY March 07, 2019 12:00am March 07, 2019 5:38pm midodrine hydrochloride 2.5 mg oral tablet (8 sources) alpha-Adrenergi c Agonist Start: 03-07-2019 End: 03-09-2019 take 2.5 mg by mouth three times daily Midodrine Discontinued 2.5 MG PO THREE TIMES A DAY March 07, 2019 5:38pm March 09, 2019 9:21pm morphine sulfate 15 mg extended release oral tablet (12 sources) Opioid Agonist Start: 03-07-2019 End: 03-09-2019 take 15 mg by mouth twice daily Morphine Discontinued 15 MG PO TWICE A DAY March 07, 2019 5:38pm March 09, 2019 9:23pm Start: 03-03-2019 End: 03-07-2019 take 60 mg by mouth once daily Morphine Discontinued 6 0 MG PO DAILY March 03, 2019 12:00am March 07, 2019 3:28pm Morphine Sulfate (Morphine Sulfate Er) 30 MG Tablet.Er (4 sources) Start: 03-03-2019 End: 03-07-2019 take 1 tablet by mouth once daily Morphine Sulfate (Morphine Sulfate Er) 30 MG Tablet.Er Discontinued 30 MG PO DAILY March 03, 2019 12:00am March 07, 2019 3:27pm 24 hr nicotine 0.875 mg/hr transdermal system (8 sources) Cholinergic Nicotinic Agonist Start: 03-07-2019 End: 03-09-2019 Nicotine Discontinued 21 MG TRANSDERM. DAILY March 07, 2019 5:38pm March 09, 2019 9:23pm pregabalin 50 mg oral capsule (4 sources) Start: 03-03-2019 End: 03-07-2019 take 50 mg by mouth three times daily Pregabalin Discontinued 50 MG PO THREE TIMES A DAY March 03, 2019 12:00am March 07, 2019 3:29pm sulfamethoxazole 800 mg / trimethoprim 160 mg oral tablet (4 sources) Dihydrofolate Reductase Inhibitor Antibacterial, Sulfonamide Antimicrobial Start: 03-03-2019 End: 05-09-2021 take 1 tablet by mouth twice daily Sulfamethoxazole- Trimethoprim Discontinued 1 TABLET PO TWICE A DAY March 03, 2019 12:00am May 09, 2021 12:50pm Problems Active Problems Problem Classification Problem Date Documented Da te Episodic/Chronic Abdominal pain (8 sources) Flank pain; Translations: [Unspecified abdominal pain] 05-13-2021 Episodic Acute and unspecified renal failure (5 sources) Renal failure syndrome; Translations: [Unspecified kidney failure] Chronic Chronic obstructive pulmonary disease and bronchiectasis (4 sources) Chronic obstructive lung disease; Translations: [Chronic obstructive pulmonary disease, unspecified] 05-06-2021 Chronic Deficiency and other anemia (1 source) Other pancytopenia; Translations: [Other pancytopenia] Onset: 11-03-2023 Chronic Disorders of lipid metabolism (4 sources) Hyperlipidemia; Translations: [Hyperlipidemia, unspecified] 03-07-2019 Chronic Fluid and electrolyte disorders (2 sources) Hypercapnia; Translations: [Carbon dioxide retention] 08-24-2022 Episodic Malaise and fatigue (14 sources) Asthenia; Translations: [Weakness] Episodic Occlusion or stenosis of precerebral arteries (1 source) Occlusion and stenosis of left carotid artery; Translations: [Occlusion and stenosis of left carotid artery] Onset: 07-11-2024 Chronic Other aftercare (4 sources) Polypharmacy ; Translations: [Other keno terminal operator (current) drug therapy] 05-13-2021 Episodic Other circulatory disease (4 sources) Orthostatic hypotension; Translations: [Orthostatic hypotension] 03-07-2019 Episodic Other circulatory disease (8 sources) Low blood pressure; Translations: [Hypotension, unspecified] 03-07-2019 Episodic Other circulatory disease (1 source) Other specified symptoms and signs involving the circulatory and respiratory systems; Translations: [Other specified symptoms and signs involving the circulatory and respiratory systems] Onset: 06-01-2024 Episodic Other connective tissue disease (4 sources) Neuropathic pain; Translations: [Neuralgia and neuritis, unspecified] 03-07-2019 Episodic Other lower respiratory disease (4 sources) Pleuritic pain; Translations: [Pleurodynia] 05-13-2021 Episodic Other lower respiratory disease (2 sources) Hypoxia; Translations: [Hypoxemia] Episodic Other lower respiratory disease (2 sources) Hypoxemia; Translations: [Hypoxemia] Episodic Other nervous system disorders (5 sources) Toxic encephalopathy; Translations: [Toxic encephalopathy] Episodic Pneumonia (except that caused by tuberculosis or sexually transmitted disease) (2 sources) Pneumonia; Translations: [Pneumonia, unspecified organism] 08-24-2022 Episodic Residual codes; unclassified (4 sources) Harmful pattern of use of nicotine; Translations: [Tobacco use] 03-07-2019 Episodic Residual codes; unclassified (4 sources) Tobacco user; Translations: [Tobacco use] 03-07-2019 Episodic Respiratory failure; insufficiency; arrest (adult) (4 sources) Chronic hypoxemic respiratory failure; Translations: [Chronic respiratory failure with hypoxia] 03-07-2019 Chronic Respiratory failure; insufficiency; arrest (adult) (7 sources) Acute hypoxemic and hypercapnic respiratory failure; Translations: [Acute respiratory failure with hypoxia] Onset: 01-25-2024 Episodic Skin and subcutaneous tissue infections (1 source) Local infection of the skin and subcutaneous tissue, unspecified; Translations: [Local infection of the skin and subcutaneous tissue, unspecified] Onset: 04-19-2024 Episodic Spondylosis; intervertebral disc disorders; other back problems (4 sources) Chronic back pain ; Translations: [Dorsalgia, unspecified] 05-06-2021 Episodic Substance-related disorders (4 sources) Opioid dependence; Translations: [Opioid dependence, uncomplicated] 03-07-2019 Chronic Urinary tract infections (4 sources) Recurrent urinary tract infection; Translations: [Urinary tract infection, site not specified] 03-07-2019 Episodic Viral infection (8 sources) Viral disease; Translations: [Viral infection, unspecified] Episodic Past or Other Problems Problem Classification Problem Date Documented Da te Episodic/Chronic Other connective tissue disease (1 source) Other specified soft tissue disorders; Translations: [Other specified soft tissue disorders] Onset: 04-04-2024 Episodic Other lower respiratory disease (1 source) Pleurodynia; Translations: [Pleurodynia] Onset: 11-19-2023 Episodic Results Test Name Value Interpretation Reference Range Facility MR/BMSSyl 06-29-2024 MR/BMSGUILLERMO [facility] Vascular Surgery [address] [place] [address] OFFICE VISIT Date of Service: 06/29/24 MR#: [id number] Acct: [id number] Name: LINA CHAUDHRY Rep #: [id number] : 1950 Provider: GISSELLE Fontana Age/Sex: 73/F Location: [facility] Status: Signed Intake Vital Signs 01/22/24 17:49 06/21/24 13:10 06/29/24 09:19 Height 5 ft 8 in 5 ft 6 in BP 134/64 H Blood Pressure Location Rt brachial Position Sitting Respiration 16 Pulse 54 L Pulse Source Monitor Temp 97.4 F L Temp Source Temporal Pulse Oximetry (%) 96 Oxygen Delivery Method room air Intake Visit Reasons: 8 WK FU Is patient in pain?: No Allergies No Known Allergies Allergy (Verified 06/21/24 13:12) Medications ???Medication ???Instructions ???Recorded ???Confirmed ???Type gemfibrozil 600 mg tablet 600 mg PO BID Check with primary 1 06/29/24 History doctor gabapentin 100 mg capsule 100 mg PO TID 30 days #90 caps 03/2006/29/24 Rx apixaban 5 mg tablet (Eliquis) 5 mg PO BID 01/21/24 06/29/24 Hist ory sulfamethoxazole 800 0.5 tab PO BID 06/29/24 06/29/24 H istory mg-trimethoprim 160 mg tablet Is last menstrual period known: No Post menopausal: Yes Patient : No Have you fallen in the past year?: No PFSH Medical History Constipation Emphysema lung Thrombocytopenia Stroke/cerebrovascular accident History of pulmonary embolism HLD (hyperlipidemia) Chronic back pain COPD (chronic obstructive pulmonary disease) HTN (hypertension) Surgical History Previous back surgery Family History Mother Heart disease Father Heart disease Social History household members: spouse Smoking Status: Former smoker alcohol intake: never substance use type: does not use HPI HPI HPI: LINA CHAUDHRY, is a 73 F who presents to the office today for follow-up of LLE edema and to discuss recent carotid ultrasound/CTA results. Carotid duplex was ordered due to bruit on exam. It demonstrated >70% stenosis in the L ICA with max PSV 341.2/47.9 cm/s, 50-69% stenosis R ICA with max PSV 134.5/38.6 cm/sec, and retrograde flow through the bilateral vertebral arteries. Given these findings, further evaluated with CTA. Head/Neck CTA images were reviewed and showed L ICA 58% stenosis, R ICA 46% stenosis. She does not have a history of CVA/TIA. She already takes Eliquis daily. For her LLE edema, at last OV initiated measured compression (with use of an assistive device to increase compliance if possible), leg elevation, and exercise as able. She did obtain 15-20 mmHg knee-high compression stockings and she has been able to apply these daily. She hasn't noticed much difference in her swelling but her legs do seem to bother her less and she has not had any recurrent weeping/wounds since she started wearing them. ROS General General: No weight change, appetite, fatigue, colon cancer, breast cancer or weakness HEENT HEENT: No difficulty swallowing, eye injury, eye surgery, swollen glands or hoarseness Endo Endocrine: No thyroid disease, diabetes mellitus, thyroid cancer, Hair loss, heat intolerance or cold intolerance Skin Skin: No rash or changing moles Musc Musculoskeletal: Yes back problems, arthritis, rheumatoid arthritis and joint pain; No gout Cardio Cardiovascular: Yes murmur; No pacemaker, heart disease, atrial fibrillation, high blood pressure, heart attack, heart stent, palpitations, shortness of breat with exertion or chest pain Psych Psychiatric: No depression, anxiety or hearing voices Resp Respiratory: No shortness of breath, No sleep apnea, No cough, Yes COPD, No asthma, No emphysema and No wheezing Gastro Gastrointestinal: No abdominal pain, No nausea or vomiting, No diarrhea, No constipation, No blood in stool, No acid reflux, No hemorrhoids, No ulcers, No gallbladder problem and No black,tarry stools Fred Hematologic: Yes blood thinners, No blood disorders, Yes bleeding, No anemia and Yes blood clots Neuro Neurologic: No system reviewed and no additional complaints, except as documented, No as per HPI, Yes abnormal gait, No abnormal hearing, No abnormal movements, No abnormal speech, No behavioral changes, No burning sensations, No confusion, No convulsions, Yes disequilibrium, No dizziness, No localized weakness, No frequent falls, No headache(s), No lack of coordination, No loss of vision, No memory loss, Yes numbness, No other visual disturbances, No radicular pain, Yes restless legs, No sensory deficit, No syncope, Yes tingling, No tremor(s), No weakness and No other (more content not included)... Normal [facility] CTA Head AND Neck W/ Contras ton 06-21-2024 CTA Head AND Neck W/ Contrast [facility] Imaging Services [address] [place] [address] CTA Head AND Neck W/ Contrast MR#: [id number] Acct: [id number] Name: LINA CHAUDHRY Rep #: [id number] : 1950 F 73 From: Alo Cheatham PCP: Dr. Matthew Valdivia, DO Status: REG CLI Study: CTA Head AND Neck W/ Contrast Date of Exam: Exam# [id number] Ordering Dr: Allie Coreas [id number] EXAM: CT ANGIOGRAPHY HEAD AND NECK WITH INTRAVENOUS CONTRAST CLINICAL INDICATION: L ICA stenosis TECHNIQUE: [place]/head and neck CT angiography protocol performed with intravenous contrast. This CT exam was performed using one or more of the following dose reduction techniques: automated exposure control, adjustment of the mA and/or kV according to patient size, and/or use of iterative reconstruction technique. MIP reconstructed images were created and reviewed. CONTRAST: 100 cc of Isovue-370 IV. RADIATION DOSE: CTDIvol = 31.35 mGy, DLP = 1627.03 mGy-cm COMPARISON: No relevant prior studies available. FINDINGS: HEAD: RIGHT ANTERIOR CEREBRAL ARTERY: Unremarkable. No occlusion or significant stenosis. Anterior communicating artery is present. No aneurysm. RIGHT MIDDLE CEREBRAL ARTERY: Unremarkable. No occlusion or significant stenosis. No aneurysm. RIGHT POSTERIOR CEREBRAL ARTERY: Unremarkable. No occlusion or significant stenosis. No aneurysm. RIGHT INTRACRANIAL INTERNAL CAROTID ARTERY: Mild atherosclerotic changes right intracavernous internal carotid artery without hemodynamic significant stenosis. No dissection or occlusion. RIGHT INTRACRANIAL VERTEBRAL ARTERY: Unremarkable. No significant stenosis. No dissection or occlusion. LEFT ANTERIOR CEREBRAL ARTERY: Unremarkable. No occlusion or significant stenosis. No aneurysm. LEFT MIDDLE CEREBRAL ARTERY: Unremarkable. No occlusion or significant stenosis. No aneurysm. LEFT POSTERIOR CEREBRAL ARTERY: Unremarkable. No occlusion or significant stenosis. No aneurysm. LEFT INTRACRANIAL INTERNAL CAROTID ARTERY: Mild atherosclerotic changes left intracavernous internal carotid artery without hemodynamic significant stenosis. No dissection or occlusion. LEFT INTRACRANIAL VERTEBRAL ARTERY: Unremarkable. No significant stenosis. No dissection or occlusion. BASILAR ARTERY: Unremarkable. No occlusion or significant stenosis. No aneurysm. OTHER VASCULATURE: No vascular malformation. NECK: RIGHT COMMON CAROTID ARTERY: Unremarkable. No significant stenosis. No dissection or occlusion. RIGHT EXTRACRANIAL INTERNAL CAROTID ARTERY: Dense atherosclerotic calcifications right carotid bulb and proximal right internal carotid artery with an approximate 50% diameter stenosis. No dissection or occlusion. RIGHT EXTERNAL CAROTID ARTERY: Unremarkable. No occlusion. RIGHT EXTRACRANIAL VERTEBRAL ARTERY: Unremarkable. No significant stenosis. No dissection or occlusion. LEFT COMMON CAROTID ARTERY: Scattered atherosclerotic changes of the left common carotid artery without hemodynamically significant stenosis. No dissection or occlusion. LEFT EXTRACRANIAL INTERNAL CAROTID ARTERY: Dense atherosclerotic calcifications of the left carotid bulb and proximal left internal carotid artery with an approximate 65% diameter stenosis. No dissection or occlusion. LEFT EXTERNAL CAROTID ARTERY: Unremarkable. No occlusion. LEFT EXTRACRANIAL VERTEBRAL ARTERY: Unremarkable. No significant stenosis. No dissection or occlusion. THYROID: Low-density nodule measuring 1.1 cm left lobe of the thyroid. BRACHIOCEPHALIC AND SUBCLAVIAN ARTERIES: Unremarkable as visualized. No occlusion or significant stenosis. LUNG APICES: Unremarkable as visualized. HEAD and NECK: BONES/JOINTS: Unremarkable. No discrete lytic or blastic abnormalities. SOFT TISSUES: Unremarkable. CAROTID STENOSIS REFERENCE USING NASCET CRITERIA: % ICA stenosis = (1 - narrowest ICA diameter/diameter of distal cervical ICA) x 100. Mild - <50% stenosis. Moderate - 50-69% stenosis. Severe - 70-94% stenosis. Near occlusion - 95-99% stenosis. Occluded - 100% stenosis. CT/CTA Head AND Neck W/ Contrast IMPRESSION: 1. No large vessel occlusion or significant intracranial vascular abnormality. 2. Dense atherosclerotic calcifications of the left carotid bulb and proximal left internal carotid artery with an approximate 65% diameter stenosis. 3. Dense atherosclerotic calcifications right carotid bulb and proximal right internal carotid artery with an approximate 50% diameter stenosis. 4. Mild atherosclerotic changes right intracavernous internal carotid artery without hemodynamic significant stenosis. 5. Mild atherosclerotic changes left intracavernous internal carotid artery without hemodynamic significant stenosis. 6. Low-density nodule measuring 1.1 cm left (more content not included)... Normal [facility] Carotid Duplex Ultrasoundon 05-03-2024 Carotid Duplex Ultrasound [facility] Cardiovascular [place] [address] [address] Carotid Duplex Ultrasound 05/03/24 1054 MR#: [id number] Acct: [id number] Name: LINA CHAUDHRY Rep #: [id number] : 1950 73 From: Yehuda Snider MD Attending Dr: GISSELLE Fontana Status: REG CLI Ordering Dr: Allie Coreas Date: 05/03/24 Location: [facility] Sex: F C Admitted: Version 2 Reason For Study: Carotid Bruit Rt. Velocities/BP Lt. Velocities/BP Prox CCA 132.1/13.3 cm/sec. Prox CCA 124.1/12.7 cm/sec. Mid CCA 105.2/15.7 cm/sec. Mid CCA 119.0/17.9 cm/sec. Dist CCA 81.5/6.6 cm/sec. Dist CCA 144.9/10.1 cm/sec. Prox ICA 134.5/38.6 cm/sec. Prox ICA 341.2/47.9 cm/sec. Mid ICA 60.2/13.3 cm/sec. Mid ICA 173.3/31.0 cm/sec. Dist ICA 113.8/17.9 cm/sec. Dist ICA 199.1/34.3 cm/sec. Rt. ICA/CCA = 1.1. Lt. ICA/CCA = 2.9. Prox ECA 92.5/0.0 cm/sec. Prox ECA 320.5/0.0 cm/sec. Abnormal waveform noted. Flow appears to Abnormal waveform noted. Flow appears to be retrograde. be retrograde. Right Extracranial There is intimal thickening but no significant atherosclerotic plaque noted in the right common carotid artery. There is heterogeneous, irregular atherosclerotic plaque noted in the right internal carotid artery. There is heterogeneous, irregular atherosclerotic plaque noted in the right external carotid artery. Left Extracranial There is heterogeneous, irregular atherosclerotic plaque noted in the left common carotid artery. There is heterogeneous, irregular atherosclerotic plaque noted in the left internal carotid artery. There is heterogeneous, irregular atherosclerotic plaque noted in the left external carotid artery. Procedure Carotid Duplex [id number]. This is a Carotid Duplex examination using B-mode, color flow and specral Doppler. Exam performed in department. . Preliminary report given to GISSELLE Fontana. VL/Carotid Duplex Ultrasound Interpretation Summary Moderate (50-69%) stenosis right extracranial internal carotid. Severe (>70%) stenosis left extracranial internal carotid. Patent and retrograde vertebrals bilaterally. Ordering Physician: Allie Coreas Referring Physician: Matthew Valdivia Performed By: Clay Moss RVT and Student 05/03/24 1627 Date Yehuda Snider MD CC: GISSELLE Fontana; Dr. Matthew Valdivia, Date Dictated: 05/03/24 1054 Date Transcribed: 05/03/24 1623 Shell Machine Operator: Signed Normal [facility] MR/BMS.BVSon 04-18-2024 MR/BMS.BVS [facility] Vascular Surgery [address] [place] [address]. [address] [place] [address] OFFICE VISIT Date of Service: 04/18/24 MR#: [id number] Acct: [id number] Name: LINA CHAUDHRY Rep #: [id number] : 1950 Provider: GISSELLE Fontana Age/Sex: 73/F Location: [facility] Status: Signed Intake Vital Signs 01/22/24 17:49 04/18/24 13:09 Height 5 ft 8 in Weight: 210 lb BP 104/69 Blood Pressure Location Rt brachial Position Sitting Respiration 16 Pulse 70 Pulse Source Monitor Temp 98.2 F Temp Source Temporal Pulse Oximetry (%) 100 Oxygen Delivery Method room air Intake Visit Reasons: RE VENOUS REFLUX WITH EDEMA LLE Chief Complaint: establish care Is patient in pain?: No Allergies No Known Allergies Allergy (Verified 04/18/24 13:10) Medications ???Medication ???Instructions ???Recorded ???Confirmed ???Type gemfibrozil 600 mg tablet 600 mg PO BID Check with primary 03/03/19 01/21/24 History doctor gabapentin 100 mg capsule 100 mg PO TID 30 days #90 caps 05/09/21 01/21/24 Rx apixaban 5 mg tablet (Eliquis) 5 mg PO BID 01/21/24 01/21/24 History Is last menstrual period known: No Post menopausal: Yes Patient : No Have you fallen in the past year?: No PFSH Medical History Constipation Emphysema lung Thrombocytopenia Stroke/cerebrovascular accident History of pulmonary embolism HLD (hyperlipidemia) Chronic back pain COPD (chronic obstructive pulmonary disease) HTN (hypertension) Surgical History Previous back surgery Family History Mother Heart disease Father Heart disease Social History household members: spouse Smoking Status: Former smoker alcohol intake: never substance use type: does not use HPI HPI HPI: LINA CHAUDHRY, is a 73 F who presents to the office today for evaluation of persistent LLE edema. She reports that much of her LLE symptoms started 20 years ago following a spinal surgery. Since that spine surgery, she has had weakness and sensory deficits throughout her LLE extremity. Presently, she is able to move at her ankle but not much beyond that, she does not ambulate well at this point and is mostly in a wheelchair. She has noticed progressive reddish-purple discoloration in her LLE. More recently, she feels that her LLE no longer improves with elevation as it has in the past. She also has a small area of superficial skin breakdown and has had some occasional weeping though none presently. She is not utilizing any compression, she is not sure she could apply the stockings. She spends a lot of her time in and sleeps in a recliner with her legs elevated. She does also note a history of at least 2 prior episodes of DVT/PE. She reports both DVTs were in her LLE. She is now chronically anticoagulated with Eliquis for this. Unclear if any provocation other than her limited mobility. No recurrence of VTE since starting anticoagulation. ROS General General: Yes weakness; No weight change, appetite, fatigue, colon cancer or breast cancer HEENT HEENT: No difficulty swallowing, eye injury, eye surgery, swollen glands or hoarseness Endo Endocrine: No thyroid disease, diabetes mellitus, thyroid cancer, Hair loss, heat intolerance or cold intolerance Skin Skin: No rash or changing moles Musc Musculoskeletal: Yes back problems, arthritis and rheumatoid arthritis; No gout or joint pain Cardio Cardiovascular: Yes high blood pressure; No murmur, pacemaker, heart disease, atrial fibrillation, heart attack, heart stent, palpitations, shortness of breat with exertion or chest pain Psych Psychiatric: No depression, anxiety or hearing voices Resp Respiratory: No shortness of breath, No sleep apnea, No cough, Yes COPD, No asthma, No emphysema and No wheezing Gastro Gastrointestinal: No abdominal pain, No nausea or vomiting, No diarrhea, No constipation, No blood in stool, No acid reflux, No hemorrhoids, No ulcers, No gallbladder problem and No black,tarry stools Fred Hematologic: Yes blood thinners, No blood disorders, Yes bleeding, No anemia and Yes blood clots Neuro Neurologic: No system reviewed and no additional complaints, except as documented, No as per HPI, Yes abnormal gait, No abnormal hearing, No abnormal movements, No abnormal speech, No behavioral changes, No burning sensations, No confusion, No convulsions, Yes disequilibrium, No dizziness, No localized weakness, No frequent falls, No headache(s), No lack of coordination, No loss of vision, No memory loss, Yes numbness, No other visual disturbances, No radicular pain, Yes restless legs, No sensory defic (more content not included)... Normal [facility] L509.8000on 03-29-2024 Syphilis Abs Non-Reactive Normal [facility] Comment on above: Performed By: #### L 500.2500, L100.0100 #### [facility] [address] [place], [address] Venous Duplex US, Unilateral on 03-10-2024 Venous Duplex US, Unilateral [facility] [address] [place] [address] Venous Duplex US, Unilateral 03/10/24 1306 MR#: [id number] Acct: [id number] Name: LINA CHAUDHRY Rep #: [id number] : 1950 73 From: Yehuda Snider MD Attending Dr: Dr. Matthew Valdivia DO Status: REG CLI Ordering Dr: Matthew Valdivia DO Date: 03/10/24 Location: [facility] Sex: F C Admitted: Reason For Study: Left leg swelling Procedure LEFT This is a venous duplex using B-mode, color CFV is compressible, spontaneous, phasic, flow and spectral Doppler. competent, and demonstrates normal Exam performed in department. augmentation. Patient was scanned in reverse Trendelenburg FV is compressible, spontaneous, phasic, position during reflux assessment. competent and demonstrates normal augmentation. POP V is compressible, phasic, and INCOMPETENT for greater than 1.0 second. T/P Trunk is compressible. PTV is compressible. LT PerV is compressible. SFJ is INCOMPETENT and measures 0.65 cm. GSV proximal thigh measures 0.73 x 0.70 cm. GSV above knee is competent. GSV at knee measures 0.46 x 0.47 cm. GSV below knee is INCOMPETENT for greater than 0.5 seconds. ASV proximal calf is INCOMPETENT for greater than 0.5 seconds and measures 0.18 x 0.18 cm. SSV proximal calf is competent and measures 0.16 x 0.14 cm. VL/Venous Duplex US, Unilateral Interpretation Summary Deep veins of the left lower extremity are patent and compressible segmentally. There is no evidence of left lower extremity deep vein thrombosis. The left great saphenous vein appears patent and compressible segmentally. Positive for reflux in the left popliteal vein, saphenofemoral junction, great saphenous vein below the knee, and accessory saphenous vein in the calf Ordering Physician: Matthew Valdivia Referring Physician: Matthew Valdivia Performed By: Clay Moss RVT 03/13/24800 Date Yehuda Snider MD CC: Dr. Matthew Valdivia, DO Date Dictated: 03/10/24 1306 Date Transcribed: 03/13/24800 Shell Machine Operator: Signed Normal [facility] Basic Metabolic Profile (BMP )on 01-25-2024 BUN Normal 7-18 [facility] Comment on above: Result Comment: Canc elled via OM: Order cancelled - Patient discharged Performed By: #### L 500.2500, L100.0100 #### [facility] [address] [place], [address] BUN/CRE Normal 10-20 [facility] Comment on above: Result Comment: Canc elled via OM: Order cancelled - Patient discharged Performed By: #### L 500.2500, L100.0100 #### [facility] [address] [place], [address] CA,Total Normal 8.5-10.1 [facility] Comment on above: Result Comment: Canc elled via OM: Order cancelled - Patient discharged Performed By: #### L 500.2500, L100.0100 #### [facility] [address] [place], [address] CL Normal 98-107 [facility] Comment on above: Result Comment: Canc elled via OM: Order cancelled - Patient discharged Performed By: #### L 500.2500, L100.0100 #### [facility] [address] [place], [address] CO2 Normal 21.0-32.0 [facility] Comment on above: Result Comment: Canc elled via OM: Order cancelled - Patient discharged Performed By: #### L 500.2500, L100.0100 #### [facility] [address] [place], [address] CREAT,SERUM Normal 0.55-1.02 [facility] Comment on above: Result Comment: Canc elled via OM: Order cancelled - Patient discharged Performed By: #### L 500.2500, L100.0100 #### [facility] [address] [place], [address] EST GFR Normal >60 [facility] Comment on above: Result Comment: Canc elled via OM: Order cancelled - Patient discharged Performed By: #### L 500.2500, L100.0100 #### [facility] [address] [place], [address] EST GFR - AA Normal >60 [facility] Comment on above: Result Comment: Canc elled via OM: Order cancelled - Patient discharged Performed By: #### L 500.2500, L100.0100 #### [facility] [address] [place], [address] GAP Normal 5-15 [facility] Comment on above: Result Comment: Canc elled via OM: Order cancelled - Patient discharged Performed By: #### L 500.2500, L100.0100 #### [facility] [address] [place], [address] GLU Normal 74-106 [facility] Comment on above: Result Comment: Canc elled via OM: Order cancelled - Patient discharged Performed By: #### L 500.2500, L100.0100 #### [facility] [address] [place], [address] Potassium Normal 3.5-5.1 [facility] Comment on above: Result Comment: Canc elled via OM: Order cancelled - Patient discharged Performed By: #### L 500.2500, L100.0100 #### [facility] [address] [place], [address] Basic Metabolic Profile (BMP) Normal 136-145 [facility] Comment on above: Result Comment: Canc elled via OM: Order cancelled - Patient discharged Performed By: #### L 500.2500, L100.0100 #### [facility] [address] [place], [address] CBC W/Diff, Automatedon 08-2 Absolute Neut Normal 2.0-7.7 [facility] Comment on above: Result Comment: Canc elled via OM: Order cancelled - Patient discharged Performed By: #### L 500.2500, L100.0100 #### [facility] [address] [place], [address] HCT Normal 37-47 [facility] Comment on above: Result Comment: Canc elled via OM: Order cancelled - Patient discharged Performed By: #### L 500.2500, L100.0100 #### [facility] [address] [place], [address] HGB Normal 12.0-15.0 [facility] Comment on above: Result Comment: Canc elled via OM: Order cancelled - Patient discharged Performed By: #### L 500.2500, L100.0100 #### [facility] [address] [place], [address] MCH Normal 27.0-32.0 [facility] Comment on above: Result Comment: Canc elled via OM: Order cancelled - Patient discharged Performed By: #### L 500.2500, L100.0100 #### [facility] [address] [place], [address] MCHC Normal 32-36 [facility] Comment on above: Result Comment: Canc elled via OM: Order cancelled - Patient discharged Performed By: #### L 500.2500, L100.0100 #### [facility] [address] [place], [address] MCV Normal 81-99 [facility] Comment on above: Result Comment: Canc elled via OM: Order cancelled - Patient discharged Performed By: #### L 500.2500, L100.0100 #### [facility] [address] [place], [address] NEUT% Normal 47-70 [facility] Comment on above: Result Comment: Canc elled via OM: Order cancelled - Patient discharged Performed By: #### L 500.2500, L100.0100 #### [facility] [address] [place], [address] PLT Normal 150-450 [facility] Comment on above: Result Comment: Canc elled via OM: Order cancelled - Patient discharged Performed By: #### L 500.2500, L100.0100 #### [facility] [address] [place], [address] RBC Normal 4.2-5.4 [facility] Comment on above: Result Comment: Canc elled via OM: Order cancelled - Patient discharged Performed By: #### L 500.2500, L100.0100 #### [facility] [address] [place], [address] RDW CV Normal 11.6-14.6 [facility] Comment on above: Result Comment: Canc elled via OM: Order cancelled - Patient discharged Performed By: #### L 500.2500, L100.0100 #### [facility] [address] [place], [address] RDW SD Normal 35.1-43.9 [facility] Comment on above: Result Comment: Canc elled via OM: Order cancelled - Patient discharged Performed By: #### L 500.2500, L100.0100 #### [facility] [address] [place], [address] WBC Normal 4.4-11.0 [facility] Comment on above: Result Comment: Canc elled via OM: Order cancelled - Patient discharged Performed By: #### L 500.2500, L100.0100 #### [facility] [address] [place], [address] Basic Metabolic Profile (BMP )on 01-24-2024 BUN/CRE 24.9 RATIO High 10-20 [facility] Comment on above: Performed By: #### L 500.2500, L100.0100 #### [facility] [address] [place], [address] CA,Total 8.2 mg/dL Low 8.5-10.1 [facility] Comment on above: Performed By: #### L 500.2500, L100.0100 #### [facility] [address] [place], [address] Chloride [Moles/Vol] 108 mmol/L High 98-107 [facility] Comment on above: Performed By: #### L 500.2500, L100.0100 #### [facility] [address] [place], [address] CO2 [Moles/Vol] 26.0 mmol/L Normal 21.0-32.0 [facility] Comment on above: Performed By: #### L 500.2500, L100.0100 #### [facility] [address] [place], [address] Creatinine [Mass/Vol] 1.97 mg/dL High 0.55-1.02 [facility] Comment on above: Result Comment: The validity of the calculated GFR GFRAA in patients over 70 years has not been determined. Clinical correlation is essential. Performed By: #### L 500.2500, L100.0100 #### [facility] [address] [place], [address] ECRCL 34.22 ml/min Normal [facility] Comment on above: Performed By: #### L 500.2500, L100.0100 #### [facility] [address] [place], [address] EST GFR - AA 32 mL/min Low >60 [facility] Comment on above: Result Comment: Afri can Moldovan GFR Calc Performed By: #### L 500.2500, L100.0100 #### [facility] [address] [place], [address] GAP 5 Normal 5-15 [facility] Comment on above: Performed By: #### L 500.2500, L100.0100 #### [facility] [address] [place], [address] GFR/1.73 sq M.predicted among non-blacks MDRD (S/P/Bld) [Vol rate/Area] 26 mL/min/{1.73_m2} Low >60 [facility] Comment on above: Result Comment: Non- GFR Calc Performed By: #### L 500.2500, L100.0100 #### [facility] [address] [place], [address] Glucose [Mass/Vol] 107 mg/dL High 74-106 [facility] Comment on above: Result Comment: Fast ing Glucose result from 100 to 125 mg/dL suggests IMPAIRED HOMEOSTASIS per A.D.A. criteria. Performed By: #### L 500.2500, L100.0100 #### [facility] [address] [place], [address] Potassium [Moles/Vol] 4.1 mmol/L Normal 3.5-5.1 [facility] Comment on above: Performed By: #### L 500.2500, L100.0100 #### [facility] [address] [place], [address] Sodium [Moles/Vol] 139 mmol/L Normal 136-145 [facility] Comment on above: Performed By: #### L 500.2500, L100.0100 #### [facility] [address] [place], [address] Urea nitrogen [Mass/Vol] 49 mg/dL High 7-18 [facility] Comment on above: Performed By: #### L 500.2500, L100.0100 #### [facility] [address] [place], [address] CBC W/Diff, Automatedon 12-30-2023 Absolute Lymph 0.55 X10 3/uL Low 0.83-4.51 [facility] Comment on above: Performed By: #### L 500.2500, L100.0100 #### [facility] [address] [place], [address] Absolute Neut 3.5 X10 3/uL Normal 2.0-7.7 [facility] Comment on above: Performed By: #### L 500.2500, L100.0100 #### [facility] [address] [place], [address] Basophils/100 WBC (Bld) 0.2 % Normal 0-1 [facility] Comment on above: Performed By: #### L 500.2500, L100.0100 #### [facility] [address] [place], [address] Eosinophils/100 WBC (Bld) 0.0 % Normal 0-5 [facility] Comment on above: Performed By: #### L 500.2500, L100.0100 #### [facility] [address] [place], [address] Erythrocyte distribution width (RBC) [Ratio] 15.1 % High 11.6-14.6 [facility] Comment on above: Performed By: #### L 500.2500, L100.0100 #### [facility] [address] [place], [address] Hematocrit (Bld) [Volume fraction] 34.3 % Low 37-47 [facility] Comment on above: Performed By: #### L 500.2500, L100.0100 #### [facility] [address] [place], [address] Hemoglobin (Bld) [Mass/Vol] 10.6 g/dL Low 12.0-15.0 [facility] Comment on above: Performed By: #### L 500.2500, L100.0100 #### [facility] [address] [place], [address] IG% 1.100 High 0.0-0.9 [facility] Comment on above: Result Comment: IG% - Immature Granulocytes (promyelocytes, myelocytes and metamyelocytes) > 1% indicates that a LEFT SHIFT is Present. Performed By: #### L 500.2500, L100.0100 #### [facility] [address] [place], [address] Lymphocytes/100 WBC (Bld) 11.7 % Low 19-41 [facility] Comment on above: Performed By: #### L 500.2500, L100.0100 #### [facility] [address] [place], [address] MCH (RBC) [Entitic mass] 32.1 pg High 27.0-32.0 [facility] Comment on above: Performed By: #### L 500.2500, L100.0100 #### [facility] [address] [place], [address] MCHC (RBC) [Mass/Vol] 30.9 g/dL Low 32-36 [facility] Comment on above: Performed By: #### L 500.2500, L100.0100 #### [facility] [address] [place], [address] MCV (RBC) [Entitic vol] 103.9 fL High 81-99 [facility] Comment on above: Performed By: #### L 500.2500, L100.0100 #### [facility] [address] [place], [address] Monocytes/100 WBC (Bld) 11.9 % High 0-10 [facility] Comment on above: Performed By: #### L 500.2500, L100.0100 #### [facility] [address] [place], [address] Neutrophils/100 WBC (Bld) 75.1 % High 47-70 [facility] Comment on above: Performed By: #### L 500.2500, L100.0100 #### [facility] [address] [place], [address] Nucleated RBC (Bld) [#/Vol] 0.9 10*3/uL Normal 0-5 [facility] Comment on above: Performed By: #### L 500.2500, L100.0100 #### [facility] [address] [place], [address] Platelet mean volume (Bld) [Entitic vol] 9.7 fL Normal 6.2-12.0 [facility] Comment on above: Performed By: #### L 500.2500, L100.0100 #### [facility] [address] [place], [address] Platelets (Bld) [#/Vol] 139 10*3/uL Low 150-450 [facility] Comment on above: Performed By: #### L 500.2500, L100.0100 #### [facility] [address] [place], [address] RBC (Bld) [#/Vol] 3.30 10*6/uL Low 4.2-5.4 [facility] Comment on above: Performed By: #### L 500.2500, L100.0100 #### [facility] [address] [place], [address] RDW SD 56.4 fl High 35.1-43.9 [facility] Comment on above: Performed By: #### L 500.2500, L100.0100 #### [facility] [address] [place], [address] WBC (Bld) [#/Vol] 4.7 10*3/uL Normal 4.4-11.0 [facility] Comment on above: Performed By: #### L 500.2500, L100.0100 #### [facility] [address] [place], [address] Discharge Instructionon 12-30 Discharge Instruction [facility] Medical Records Department [address] [place] [address] Instructions for Home/Discharge Instructions 01/24/24 1443 MR#: [id number] Acct: [id number] Name: LINA CHAUDHRY Rep #: [id number] : 1950 73 From: Matthew Fields DO PCP: Dr. Matthew Valdivia DO Status:ADM IN Discharge Instructions Diet Discharge Diet: No restrictions Activity Discharge Activity: Return to Normal Activity Weight Bearing Status: Weight bearing as tolerated Follow Up Care Test Results: Test results from this visit will be discussed in further detail at your follow-up appointment, if applicable. Discharge Plan Admission Admit Date/Time: 01/21/24 13:01 Primary Reason for Your Visit: Respiratory failure, exacerbation of COPD Attending Provider: Matthew Fields Primary Care Provider: Matthew Valdivia Consulting Providers: Con Nation Instructions Additional Instructions / Restrictions: Use oxygen at 2 L/min via nasal cannula at all times Discharge Orders/Prescriptions Prescriptions: New prednisone 20 mg Tablet 40 mg PO DAILY@0800 Qty: 14 0RF Rx Instructions: 2 tablets daily for 7 days then discontinue albuterol sulfate 90 mcg/actuation HFA aerosol inhaler 2 puff inhalation Q6H PRN (Reason: shortness of breath or wheezing) Qty: 8.5 0RF budesonide-formoterol [Breyna] 80-4.5 mcg/actuation HFA aerosol inhaler 2 puff inhalation BID Qty: 10.2 0RF Continued gemfibrozil 600 MG tablet 600 mg PO BID gabapentin 100 mg Capsule 100 mg PO TID 30 Days Qty: 90 0RF loperamide 2 mg Tablet 2 mg PO Q6H PRN (Reason: Loose Stool) Eliquis 5 mg tablet 5 mg PO BID acetaminophen 325 mg capsule 325 mg PO Q6H PRN (Reason: fever or pain) Referrals / Follow Up: Matthew Valdivia DO [Primary Care Provider] - Within 2 Weeks Disposition Disposition (needs filled in before D/C Order can be placed): Assisted Living 01/24/24 1455 Matthew Fields DO CC: Dr. Con Nation MD; Dr. Matthew Valdivia DO Signed Normal [facility] Bladderon 024 Kidney and Bladder [facility] Imaging Services [address] [place], [place] [address] Kidney and Bladder MR#: [id number] Acct: [id number] Name: LINA CHAUDHRY Rep #: [id number] : 1950 F 73 From: Óscar love MD PCP: Dr. Matthew Valdivia DO Status: ADM IN Study: Kidney and Bladder Date of Exam: 01/24/24 Exam# [id number] Ordering Dr: Con Nation [place] [id number] STUDY: RENAL ULTRASOUND - COMPLETE REASON FOR EXAM: Female, 73 years old. [place] TECHNIQUE: Ultrasound evaluation of the kidneys was performed with real-time and static fall-scale imaging. COMPARISON: Comparison is made with prior study May 07, 2021. FINDINGS: RIGHT KIDNEY: Normal location of the right kidney, which is normal in size. The right kidney measures 12.4 cm x 6.5 cm x 6.1 cm. There is diffuse thinning of the renal cortex. The renal cortex measures 1 cm. Several cysts are seen. The largest measures 1.8 cm x 1.7 cm x 1.3 cm. There are no right renal calculi. There is no right hydronephrosis. DISTAL RIGHT URETER: There is non-visualization of the distal right ureter. There is no demonstrated right ureterovesical junction calculus. There is a visualized right ureteral jet. LEFT KIDNEY: Normal location of the left kidney, which is normal in size. The left kidney measures 10.5 cm x 6.1 cm x 5.2 cm. There is a normal cortex of the left kidney. The renal cortex measures 1.1 cm. There is no left renal mass or cyst. There are no left renal calculi. There is no left hydronephrosis. DISTAL LEFT URETER: There is non-visualization of the distal left ureter. There is no demonstrated left ureterovesical junction calculus. There is a visualized left ureteral jet. BLADDER: The bladder was not visualized. A Silverio catheter is seen within the empty bladder. US/Kidney and Bladder IMPRESSION: Mild right cortical thinning. Right renal cysts. Electronically Signed: Óscar Leyva MD at 12:03 EDT Reading Location ID and State: [facility] / [place] , Service support , CC: Dr. Con Nation MD; Dr. Matthew Valdivia DO Shell Machine Operator: Signed Normal [facility] Basic Metabolic Profile (BMP )on 01-23-2024 BUN/CRE 24.8 RATIO High 10-20 [facility] [facility] Comment on above: Performed By: #### L 500.2500, L100.0100 #### [facility] [address] [place], [address] CA,Total 8.0 mg/dL Low 8.5-10.1 [facility] Comment on above: Performed By: #### L 500.2500, L100.0100 #### [facility] [address] [place], [address] Chloride [Moles/Vol] 106 mmol/L Normal 98-107 [facility] Comment on above: Performed By: #### L 500.2500, L100.0100 #### [facility] [address] [place], [address] CO2 [Moles/Vol] 23.0 mmol/L Normal 21.0-32.0 [facility] Comment on above: Performed By: #### L 500.2500, L100.0100 #### [facility] [address] [place], [address] Creatinine [Mass/Vol] 2.30 mg/dL High 0.55-1.02 [facility] Comment on above: Result Comment: The validity of the calculated GFR GFRAA in patients over 70 years has not been determined. Clinical correlation is essential. Performed By: #### L 500.2500, L100.0100 #### [facility] [address] [place], [address] ECRCL 29.31 ml/min Normal [facility] Comment on above: Performed By: #### L 500.2500, L100.0100 #### [facility] [address] [place], [address] EST GFR - AA 27 mL/min Low >60 [facility] Comment on above: Result Comment: Afri can Moldovan GFR Calc Performed By: #### L 500.2500, L100.0100 #### [facility] [address] [place], [address] GAP 8 Normal 5-15 [facility] Comment on above: Performed By: #### L 500.2500, L100.0100 #### [facility] [address] [place], [address] GFR/1.73 sq M.predicted among non-blacks MDRD (S/P/Bld) [Vol rate/Area] 22 mL/min/{1.73_m2} Low >60 [facility] Comment on above: Result Comment: Non- GFR Calc Performed By: #### L 500.2500, L100.0100 #### [facility] [address] [place], [address] Glucose [Mass/Vol] 106 mg/dL Normal 74-106 [facility] Comment on above: Result Comment: Fast ing Glucose result from 100 to 125 mg/dL suggests IMPAIRED HOMEOSTASIS per A.D.A. criteria. Performed By: #### L 500.2500, L100.0100 #### [facility] [address] [place], [address] Potassium [Moles/Vol] 4.4 mmol/L Normal 3.5-5.1 [facility] Comment on above: Performed By: #### L 500.2500, L100.0100 #### [facility] [address] [place], [address] Sodium [Moles/Vol] 137 mmol/L Normal 136-145 [facility] Comment on above: Performed By: #### L 500.2500, L100.0100 #### [facility] [address] [place], [address] Urea nitrogen [Mass/Vol] 57 mg/dL High 7-18 [facility] Comment on above: Performed By: #### L 500.2500, L100.0100 #### [facility] [address] [place], [address] Blood Gases by [facility] 024 RHIANNON TEST Positive Normal [facility] Comment on above: Performed By: #### L 500.2500, L100.0100 #### [facility] [address] [place], [address] Base excess Calc (Bld) [Moles/Vol] 0 mmol/L Normal -2 to +2 [facility] Comment on above: Performed By: #### L 500.2500, L100.0100 #### [facility] [address] [place], [address] Blood Gas Type ART Normal [facility] Comment on above: Performed By: #### L 500.2500, L100.0100 #### [facility] [address] [place], [address] CO2 [Moles/Vol] 28 mmol/L Normal [facility] Comment on above: Performed By: #### L 500.2500, L100.0100 #### [facility] [address] [place], [address] FI02 2.0 Normal [facility] Comment on above: Performed By: #### L 500.2500, L100.0100 #### [facility] [address] [place], [address] HCO3 (Bld) [Moles/Vol] 26.7 mmol/L High 22-26 [facility] Comment on above: Performed By: #### L 500.2500, L100.0100 #### [facility] [address] [place], [address] Mode Not entered [facility] Comment on above: Performed By: #### L 500.2500, L100.0100 #### [facility] [address] [place], [address] O2 Delivery Dev Cannula Normal [facility] Comment on above: Performed By: #### L 500.2500, L100.0100 #### [facility] [address] [place], [address] pCO2 55.5 mmHg High 35-45 [facility] Comment on above: Performed By: #### L 500.2500, L100.0100 #### [facility] [address] [place], [address] pH (Bld) 7.29 [pH] Low 7.35-7.45 [facility] Comment on above: Performed By: #### L 500.2500, L100.0100 #### [facility] [address] [place], [address] PO2 68 mmHG Low 75-100 [facility] Comment on above: Performed By: #### L 500.2500, L100.0100 #### [facility] [address] [place], [address] SITE R Radial Normal [facility] Comment on above: Performed By: #### L 500.2500, L100.0100 #### [facility] [address] [place], [address] SO2 91 Low 95-99 [facility] Comment on above: Performed By: #### L 500.2500, L100.0100 #### [facility] [address] [place], [address] CBC W/Diff, Automatedon 12-30-2023 Absolute Lymph 0.60 X10 3/uL Low 0.83-4.51 [facility] Comment on above: Performed By: #### L 500.2500, L100.0100 #### [facility] [address] [place], [address] Absolute Neut 3.9 X10 3/uL Normal 2.0-7.7 [facility] Comment on above: Performed By: #### L 500.2500, L100.0100 #### [facility] [address] [place], [address] Basophils/100 WBC (Bld) 0.4 % Normal 0-1 [facility] Comment on above: Performed By: #### L 500.2500, L100.0100 #### [facility] [address] [place], [address] Eosinophils/100 WBC (Bld) 0.0 % Normal 0-5 [facility] Comment on above: Performed By: #### L 500.2500, L100.0100 #### [facility] [address] [place], [address] Erythrocyte distribution width (RBC) [Ratio] 15.2 % High 11.6-14.6 [facility] Comment on above: Performed By: #### L 500.2500, L100.0100 #### [facility] [address] [place], [address] Hematocrit (Bld) [Volume fraction] 35.2 % Low 37-47 [facility] Comment on above: Performed By: #### L 500.2500, L100.0100 #### [facility] [address] [place], [address] Hemoglobin (Bld) [Mass/Vol] 10.6 g/dL Low 12.0-15.0 [facility] Comment on above: Performed By: #### L 500.2500, L100.0100 #### [facility] [address] [place], [address] IG% 1.000 High 0.0-0.9 [facility] Comment on above: Result Comment: IG% - Immature Granulocytes (promyelocytes, myelocytes and metamyelocytes) > 1% indicates that a LEFT SHIFT is Present. Performed By: #### L 500.2500, L100.0100 #### [facility] [address] [place], [address] Lymphocytes/100 WBC (Bld) 11.5 % Low 19-41 [facility] Comment on above: Performed By: #### L 500.2500, L100.0100 #### [facility] [address] [place], [address] MCH (RBC) [Entitic mass] 32.0 pg Normal 27.0-32.0 [facility] Comment on above: Performed By: #### L 500.2500, L100.0100 #### [facility] [address] [place], [address] MCHC (RBC) [Mass/Vol] 30.1 g/dL Low 32-36 [facility] Comment on above: Performed By: #### L 500.2500, L100.0100 #### [facility] [address] [place], [address] MCV (RBC) [Entitic vol] 106.3 fL High 81-99 [facility] Comment on above: Performed By: #### L 500.2500, L100.0100 #### [facility] [address] [place], [address] Monocytes/100 WBC (Bld) 12.3 % High 0-10 [facility] Comment on above: Performed By: #### L 500.2500, L100.0100 #### [facility] [address] [place], [address] Neutrophils/100 WBC (Bld) 74.8 % High 47-70 [facility] Comment on above: Performed By: #### L 500.2500, L100.0100 #### [facility] [address] [place], [address] Nucleated RBC (Bld) [#/Vol] 1.0 10*3/uL Normal 0-5 [facility] Comment on above: Performed By: #### L 500.2500, L100.0100 #### [facility] [address] [place], [address] Platelet mean volume (Bld) [Entitic vol] 10.1 fL Normal 6.2-12.0 [facility] Comment on above: Performed By: #### L 500.2500, L100.0100 #### [facility] [address] [place], [address] Platelets (Bld) [#/Vol] 146 10*3/uL Low 150-450 [facility] Comment on above: Performed By: #### L 500.2500, L100.0100 #### [facility] [address] [place], [address] RBC (Bld) [#/Vol] 3.31 10*6/uL Low 4.2-5.4 [facility] Comment on above: Performed By: #### L 500.2500, L100.0100 #### [facility] [address] [place], [address] RDW SD 57.9 fl High 35.1-43.9 [facility] Comment on above: Performed By: #### L 500.2500, L100.0100 #### [facility] [address] [place], [address] WBC (Bld) [#/Vol] 5.2 10*3/uL Normal 4.4-11.0 [facility] Comment on above: Performed By: #### L 500.2500, L100.0100 #### [facility] [address] [place], [address] Basic Metabolic Profile (BMP )on 01-22-2024 BUN/CRE 20.4 RATIO High 10-20 [facility] Comment on above: Performed By: #### L 500.2500, L100.0100 #### [facility] [address] [place], [address] CA,Total 7.6 mg/dL Low 8.5-10.1 [facility] Comment on above: Performed By: #### L 500.2500, L100.0100 #### [facility] [address] [place], [address] Chloride [Moles/Vol] 103 mmol/L Normal 98-107 [facility] Comment on above: Performed By: #### L 500.2500, L100.0100 #### [facility] [address] [place], [address] CO2 [Moles/Vol] 28.0 mmol/L Normal 21.0-32.0 [facility] Comment on above: Performed By: #### L 500.2500, L100.0100 #### [facility] [address] [place], [address] Creatinine [Mass/Vol] 2.60 mg/dL High 0.55-1.02 [facility] Comment on above: Result Comment: The validity of the calculated GFR GFRAA in patients over 70 years has not been determined. Clinical correlation is essential. Performed By: #### L 500.2500, L100.0100 #### [facility] [address] [place], [address] ECRCL 25.57 ml/min Normal [facility] Comment on above: Performed By: #### L 500.2500, L100.0100 #### [facility] [address] [place], [address] EST GFR - AA 23 mL/min Low >60 [facility] Comment on above: Result Comment: Afri can Moldovan GFR Calc Performed By: #### L 500.2500, L100.0100 #### [facility] [address] [place], [address] GAP 7 Normal 5-15 [facility] Comment on above: Performed By: #### L 500.2500, L100.0100 #### [facility] [address] [place], [address] GFR/1.73 sq M.predicted among non-blacks MDRD (S/P/Bld) [Vol rate/Area] 19 mL/min/{1.73_m2} Low >60 [facility] Comment on above: Result Comment: Non- GFR Calc Performed By: #### L 500.2500, L100.0100 #### [facility] [address] [place], [address] Glucose [Mass/Vol] 121 mg/dL High 74-106 [facility] Comment on above: Result Comment: Fast ing Glucose result from 100 to 125 mg/dL suggests IMPAIRED HOMEOSTASIS per A.D.A. criteria. Performed By: #### L 500.2500, L100.0100 #### [facility] [address] [place], [address] Potassium [Moles/Vol] 5.2 mmol/L High 3.5-5.1 [facility] Comment on above: Performed By: #### L 500.2500, L100.0100 #### [facility] [address] [place], [address] Sodium [Moles/Vol] 138 mmol/L Normal 136-145 [facility] Comment on above: Performed By: #### L 500.2500, L100.0100 #### [facility] [address] [place], [address] Urea nitrogen [Mass/Vol] 53 mg/dL High 7-18 [facility] Comment on above: Performed By: #### L 500.2500, L100.0100 #### [facility] [address] [place], [address] Blood Gases by [facility] 024 RHIANNON TEST Positive Normal [facility] Comment on above: Performed By: #### L 500.2500, L100.0100 #### [facility] [address] [place], [address] Base excess Calc (Bld) [Moles/Vol] -2 mmol/L Normal -2 to +2 [facility] Comment on above: Performed By: #### L 500.2500, L100.0100 #### [facility] [address] [place], [address] Blood Gas Type ART Normal [facility] Comment on above: Performed By: #### L 500.2500, L100.0100 #### [facility] [address] [place], [address] CO2 [Moles/Vol] 29 mmol/L Normal [facility] Comment on above: Performed By: #### L 500.2500, L100.0100 #### [facility] [address] [place], [address] FI02 50.0 Normal [facility] Comment on above: Performed By: #### L 500.2500, L100.0100 #### [facility] [address] [place], [address] HCO3 (Bld) [Moles/Vol] 26.5 mmol/L High 22-26 [facility] Comment on above: Performed By: #### L 500.2500, L100.0100 #### [facility] [address] [place], [address] Mode Not entered Normal [facility] Comment on above: Performed By: #### L 500.2500, L100.0100 #### [facility] [address] [place], [address] O2 Delivery Dev BiPAP Normal [facility] Comment on above: Performed By: #### L 500.2500, L100.0100 #### [facility] [address] [place], [address] pCO2 74.5 mmHg Invalid Interpretation Code 35-45 [facility] Comment on above: Performed By: #### L 500.2500, L100.0100 #### [facility] [address] [place], [address] PEEP 18 Normal [facility] Comment on above: Performed By: #### L 500.2500, L100.0100 #### [facility] [address] [place], [address] pH (Bld) 7.16 [pH] Invalid Interpretation Code 7.35-7.45 [facility] Comment on above: Performed By: #### L 500.2500, L100.0100 #### [facility] [address] [place], [address] PO2 139 mmHG High 75-100 [facility] Comment on above: Performed By: #### L 500.2500, L100.0100 #### [facility] [address] [place], [address] Read Back By Yes [facility] Comment on above: Performed By: #### L 500.2500, L100.0100 #### [facility] [address] [place], [address] nation [facility] Comment on above: Performed By: #### L 500.2500, L100.0100 #### [facility] [address] [place], [address] RR 18 [facility] Comment on above: Performed By: #### L 500.2500, L100.0100 #### [facility] [address] [place], [address] SITE R Radial [facility] Comment on above: Performed By: #### L 500.2500, L100.0100 #### [facility] [address] [place], [address] SO2 98 Normal 95-99 [facility] Comment on above: Performed By: #### L 500.2500, L100.0100 #### [facility] [address] [place], [address] Time Given 09:09:57 [facility] Comment on above: Performed By: #### L 500.2500, L100.0100 #### [facility] [address] [place], [address] Vt 500.0 mL [facility] Comment on above: Performed By: #### L 500.2500, L100.0100 #### [facility] [address] [place], [address] CBC W/Diff, Automatedon 08-2 -2023 Absolute Lymph 0.22 X10 3/uL Low 0.83-4.51 [facility] Comment on above: Performed By: #### L 500.2500, L100.0100 #### [facility] [address] [place], [address] Absolute Neut 4.1 X10 3/uL Normal 2.0-7.7 [facility] Comment on above: Performed By: #### L 500.2500, L100.0100 #### [facility] [address] [place], [address] Basophils/100 WBC (Bld) 0.2 % Normal 0-1 [facility] Comment on above: Performed By: #### L 500.2500, L100.0100 #### [facility] [address] [place], [address] Eosinophils/100 WBC (Bld) 0.0 % Normal 0-5 [facility] Comment on above: Performed By: #### L 500.2500, L100.0100 #### [facility] [address] [place], [address] Erythrocyte distribution width (RBC) [Ratio] 15.4 % High 11.6-14.6 [facility] Comment on above: Performed By: #### L 500.2500, L100.0100 #### [facility] [address] [place], [address] Hematocrit (Bld) [Volume fraction] 38.1 % Normal 37-47 [facility] Comment on above: Performed By: #### L 500.2500, L100.0100 #### [facility] [address] [place], [address] Hemoglobin (Bld) [Mass/Vol] 11.3 g/dL Low 12.0-15.0 [facility] Comment on above: Performed By: #### L 500.2500, L100.0100 #### [facility] [address] [place], [address] IG% 2.200 High 0.0-0.9 [facility] Comment on above: Result Comment: IG% - Immature Granulocytes (promyelocytes, myelocytes and metamyelocytes) > 1% indicates that a LEFT SHIFT is Present. Performed By: #### L 500.2500, L100.0100 #### [facility] [address] [place], [address] Lymphocytes/100 WBC (Bld) 4.8 % Low 19-41 [facility] Comment on above: Performed By: #### L 500.2500, L100.0100 #### [facility] [address] [place], [address] MCH (RBC) [Entitic mass] 32.1 pg High 27.0-32.0 [facility] Comment on above: Performed By: #### L 500.2500, L100.0100 #### [facility] [address] [place], [address] MCHC (RBC) [Mass/Vol] 29.7 g/dL Low 32-36 [facility] Comment on above: Performed By: #### L 500.2500, L100.0100 #### [facility] [address] [place], [address] MCV (RBC) [Entitic vol] 108.2 fL High 81-99 [facility] Comment on above: Performed By: #### L 500.2500, L100.0100 #### [facility] [address] [place], [address] Monocytes/100 WBC (Bld) 3.7 % Normal 0-10 [facility] Comment on above: Performed By: #### L 500.2500, L100.0100 #### [facility] [address] [place], [address] Neutrophils/100 WBC (Bld) 89.1 % High 47-70 [facility] Comment on above: Performed By: #### L 500.2500, L100.0100 #### [facility] [address] [place], [address] Nucleated RBC (Bld) [#/Vol] 2.4 10*3/uL Normal 0-5 [facility] Comment on above: Performed By: #### L 500.2500, L100.0100 #### [facility] [address] [place], [address] Platelet mean volume (Bld) [Entitic vol] 10.2 fL Normal 6.2-12.0 [facility] Comment on above: Performed By: #### L 500.2500, L100.0100 #### [facility] [address] [place], [address] Platelets (Bld) [#/Vol] 154 10*3/uL Normal 150-450 [facility] Comment on above: Performed By: #### L 500.2500, L100.0100 #### [facility] [address] [place], [address] RBC (Bld) [#/Vol] 3.52 10*6/uL Low 4.2-5.4 [facility] Comment on above: Performed By: #### L 500.2500, L100.0100 #### [facility] [address] [place], [address] RDW SD 59.9 fl High 35.1-43.9 [facility] Comment on above: Performed By: #### L 500.2500, L100.0100 #### [facility] [address] [place], [address] WBC (Bld) [#/Vol] 4.6 10*3/uL Normal 4.4-11.0 [facility] Comment on above: Performed By: #### L 500.2500, L100.0100 #### [facility] [address] [place], [address] Magnesiumon 01-22-2024 Magnesium [Mass/Vol] 2.1 mg/dL Normal 1.6-2.6 [facility] Comment on above: Performed By: #### L 500.2500, L100.0100 #### [facility] [address] [place], [address] Phosphoruson 01-22-2024 Phosphate [Mass/Vol] 5.6 mg/dL High 2.5-4.9 [facility] Comment on above: Performed By: #### L 500.2500, L100.0100 #### [facility] [address] [place], [address] BNP,B-Type NATRIURETIC PEPTI Bhavin 01-21-2024 Natriuretic peptide B (Bld) [Mass/Vol] 830.1 pg/mL High 0-100 [facility] Comment on above: Performed By: #### L 300.3900, L503.6620, L501.5425, L503.6005, L500.4050, L100.0100, L300.4310 #### [facility] [address] [place], [address] Blood Gases by [facility] 024 Base excess Calc (Bld) [Moles/Vol] 0 mmol/L Normal -2 to +2 [facility] Comment on above: Performed By: #### L 300.3900, L503.6620, L501.5425, L503.6005, L500.4050, L100.0100, L300.4310 #### [facility] [address] [place], [address] Blood Gas Type ART [facility] Comment on above: Performed By: #### L 300.3900, L503.6620, L501.5425, L503.6005, L500.4050, L100.0100, L300.4310 #### [facility] [address] [place], [address] CO2 [Moles/Vol] 34 mmol/L [facility] Comment on above: Performed By: #### L 300.3900, L503.6620, L501.5425, L503.6005, L500.4050, L100.0100, L300.4310 #### [facility] [address] [place], [address] FI02 40.0 [facility] Comment on above: Performed By: #### L 300.3900, L503.6620, L501.5425, L503.6005, L500.4050, L100.0100, L300.4310 #### [facility] [address] [place], [address] HCO3 (Bld) [Moles/Vol] 30.2 mmol/L High 22-26 [facility] Comment on above: Performed By: #### L 300.3900, L503.6620, L501.5425, L503.6005, L500.4050, L100.0100, L300.4310 #### [facility] [address] [place], [address] Mode avaps Normal [facility] Comment on above: Performed By: #### L 300.3900, L503.6620, L501.5425, L503.6005, L500.4050, L100.0100, L300.4310 #### [facility] [address] [place], [address] O2 Delivery Dev Not entered Normal [facility] Comment on above: Performed By: #### L 300.3900, L503.6620, L501.5425, L503.6005, L500.4050, L100.0100, L300.4310 #### [facility] [address] [place], [address] pCO2 107.0 mmHg Invalid Interpretation Code 35-45 [facility] Comment on above: Performed By: #### L 300.3900, L503.6620, L501.5425, L503.6005, L500.4050, L100.0100, L300.4310 #### [facility] [address] [place], [address] PEEP 14 [facility] Comment on above: Performed By: #### L 300.3900, L503.6620, L501.5425, L503.6005, L500.4050, L100.0100, L300.4310 #### [facility] [address] [place], [address] pH (Bld) 7.06 [pH] Invalid Interpretation Code 7.35-7.45 [facility] Comment on above: Performed By: #### L 300.3900, L503.6620, L501.5425, L503.6005, L500.4050, L100.0100, L300.4310 #### [facility] [address] [place], [address] PIP 28 [facility] Comment on above: Performed By: #### L 300.3900, L503.6620, L501.5425, L503.6005, L500.4050, L100.0100, L300.4310 #### [facility] [address] [place], [address] PO2 71 mmHG Low 75-100 [facility] Comment on above: Performed By: #### L 300.3900, L503.6620, L501.5425, L503.6005, L500.4050, L100.0100, L300.4310 #### [facility] [address] [place], [address] Read Back By Yes [facility] Comment on above: Performed By: #### L 300.3900, L503.6620, L501.5425, L503.6005, L500.4050, L100.0100, L300.4310 #### [facility] [address] [place], [address] Results To [facility] Comment on above: Performed By: #### L 300.3900, L503.6620, L501.5425, L503.6005, L500.4050, L100.0100, L300.4310 #### [facility] [address] [place], [address] RR 18 [facility] Comment on above: Performed By: #### L 300.3900, L503.6620, L501.5425, L503.6005, L500.4050, L100.0100, L300.4310 #### [facility] [address] [place], [address] SITE R Brach [facility] Comment on above: Performed By: #### L 300.3900, L503.6620, L501.5425, L503.6005, L500.4050, L100.0100, L300.4310 #### [facility] [address] [place], [address] SO2 83 Low 95-99 [facility] Comment on above: Performed By: #### L 300.3900, L503.6620, L501.5425, L503.6005, L500.4050, L100.0100, L300.4310 #### [facility] [address] [place], [address] Time Given 13:17:41 Normal [facility] Comment on above: Performed By: #### L 300.3900, L503.6620, L501.5425, L503.6005, L500.4050, L100.0100, L300.4310 #### [facility] [address] [place], [address] Vt 500.0 mL Normal [facility] Comment on above: Performed By: #### L 300.3900, L503.6620, L501.5425, L503.6005, L500.4050, L100.0100, L300.4310 #### [facility] [address] [place], [address] Base excess Calc (Bld) [Moles/Vol] 0 mmol/L Normal -2 to +2 [facility] Comment on above: Performed By: #### L 9000.0800 #### [facility] [address] [place], [address] Blood Gas Type ART [facility] Comment on above: Performed By: #### L 9000.0800 #### [facility] [address] [place], [address] CO2 [Moles/Vol] 34 mmol/L [facility] Comment on above: Performed By: #### L 9000.0800 #### [facility] [address] [place], [address] FI02 15.0 Normal [facility] Comment on above: Performed By: #### L 9000.0800 #### [facility] [address] [place], [address] HCO3 (Bld) [Moles/Vol] 30.6 mmol/L High 22-26 [facility] Comment on above: Performed By: #### L 9000.0800 #### [facility] [address] [place], [address] Mode Not entered [facility] Comment on above: Performed By: #### L 9000.0800 #### [facility] [address] [place], [address] O2 Delivery Dev NRB Normal [facility] Comment on above: Performed By: #### L 9000.0800 #### [facility] [address] [place], [address] pCO2 106.6 mmHg Invalid Interpretation Code 35-45 [facility] Comment on above: Performed By: #### L 9000.0800 #### [facility] [address] [place], [address] pH (Bld) 7.07 [pH] Invalid Interpretation Code 7.35-7.45 [facility] Comment on above: Performed By: #### L 9000.0800 #### [facility] [address] [place], [address] PO2 82 mmHG Normal 75-100 [facility] Comment on above: Performed By: #### L 9000.0800 #### [facility] [address] [place], [address] Read Back By Yes [facility] Comment on above: Performed By: #### L 9000.0800 #### [facility] [address] [place], [address] Results To ug [facility] Comment on above: Performed By: #### L 9000.0800 #### [facility] [address] [place], [address] SITE L Brach Normal [facility] Comment on above: Performed By: #### L 9000.0800 #### [facility] [address] [place], [address] SO2 89 Low 95-99 [facility] Comment on above: Performed By: #### L 9000.0800 #### [facility] [address] [place], [address] Time Given 11:33:30 Normal [facility] Comment on above: Performed By: #### L 9000.0800 #### [facility] [address] [place], [address] CBC W/Diff, Automatedon 12-30 Absolute Lymph 0.69 X10 3/uL Low 0.83-4.51 [facility] Comment on above: Performed By: #### L 300.3900, L503.6620, L501.5425, L503.6005, L500.4050, L100.0100, L300.4310 #### [facility] [address] [place], [address] Absolute Neut 4.2 X10 3/uL Normal 2.0-7.7 [facility] Comment on above: Performed By: #### L 300.3900, L503.6620, L501.5425, L503.6005, L500.4050, L100.0100, L300.4310 #### [facility] [address] [place], [address] Basophils/100 WBC (Bld) 0.9 % Normal 0-1 [facility] Comment on above: Performed By: #### L 300.3900, L503.6620, L501.5425, L503.6005, L500.4050, L100.0100, L300.4310 #### [facility] [address] [place], [address] Eosinophils/100 WBC (Bld) 0.0 % Normal 0-5 [facility] Comment on above: Performed By: #### L 300.3900, L503.6620, L501.5425, L503.6005, L500.4050, L100.0100, L300.4310 #### [facility] [address] [place], [address] Erythrocyte distribution width (RBC) [Ratio] 15.8 % High 11.6-14.6 [facility] Comment on above: Performed By: #### L 300.3900, L503.6620, L501.5425, L503.6005, L500.4050, L100.0100, L300.4310 #### [facility] [address] [place], [address] Hematocrit (Bld) [Volume fraction] 40.0 % Normal 37-47 [facility] Comment on above: Performed By: #### L 300.3900, L503.6620, L501.5425, L503.6005, L500.4050, L100.0100, L300.4310 #### [facility] [address] [place], [address] Hemoglobin (Bld) [Mass/Vol] 11.7 g/dL Low 12.0-15.0 [facility] Comment on above: Performed By: #### L 300.3900, L503.6620, L501.5425, L503.6005, L500.4050, L100.0100, L300.4310 #### [facility] [address] [place], [address] IG% 2.700 High 0.0-0.9 [facility] Comment on above: Result Comment: IG% - Immature Granulocytes (promyelocytes, myelocytes and metamyelocytes) > 1% indicates that a LEFT SHIFT is Present. Performed By: #### L 300.3900, L503.6620, L501.5425, L503.6005, L500.4050, L100.0100, L300.4310 #### [facility] [address] [place], [address] Lymphocytes/100 WBC (Bld) 12.3 % Low 19-41 [facility] Comment on above: Performed By: #### L 300.3900, L503.6620, L501.5425, L503.6005, L500.4050, L100.0100, L300.4310 #### [facility] [address] [place], [address] MCH (RBC) [Entitic mass] 31.9 pg Normal 27.0-32.0 [facility] Comment on above: Performed By: #### L 300.3900, L503.6620, L501.5425, L503.6005, L500.4050, L100.0100, L300.4310 #### [facility] [address] [place], [address] MCHC (RBC) [Mass/Vol] 29.3 g/dL Low 32-36 [facility] Comment on above: Performed By: #### L 300.3900, L503.6620, L501.5425, L503.6005, L500.4050, L100.0100, L300.4310 #### [facility] [address] [place], [address] MCV (RBC) [Entitic vol] 109.0 fL High 81-99 [facility] Comment on above: Performed By: #### L 300.3900, L503.6620, L501.5425, L503.6005, L500.4050, L100.0100, L300.4310 #### [facility] [address] [place], [address] Monocytes/100 WBC (Bld) 8.7 % Normal 0-10 [facility] Comment on above: Performed By: #### L 300.3900, L503.6620, L501.5425, L503.6005, L500.4050, L100.0100, L300.4310 #### [facility] [address] [place], [address] Neutrophils/100 WBC (Bld) 75.4 % High 47-70 [facility] Comment on above: Performed By: #### L 300.3900, L503.6620, L501.5425, L503.6005, L500.4050, L100.0100, L300.4310 #### [facility] [address] [place], [address] Nucleated RBC (Bld) [#/Vol] 2.0 10*3/uL Normal 0-5 [facility] Comment on above: Performed By: #### L 300.3900, L503.6620, L501.5425, L503.6005, L500.4050, L100.0100, L300.4310 #### [facility] [address] [place], [address] Platelet mean volume (Bld) [Entitic vol] 10.5 fL Normal 6.2-12.0 [facility] Comment on above: Performed By: #### L 300.3900, L503.6620, L501.5425, L503.6005, L500.4050, L100.0100, L300.4310 #### [facility] [address] [place], [address] Platelets (Bld) [#/Vol] 173 10*3/uL Normal 150-450 [facility] Comment on above: Performed By: #### L 300.3900, L503.6620, L501.5425, L503.6005, L500.4050, L100.0100, L300.4310 #### [facility] [address] [place], [address] RBC (Bld) [#/Vol] 3.67 10*6/uL Low 4.2-5.4 [facility] Comment on above: Performed By: #### L 300.3900, L503.6620, L501.5425, L503.6005, L500.4050, L100.0100, L300.4310 #### [facility] [address] [place], [address] RDW SD 62.0 fl High 35.1-43.9 [facility] Comment on above: Performed By: #### L 300.3900, L503.6620, L501.5425, L503.6005, L500.4050, L100.0100, L300.4310 #### [facility] [address] [place], [address] WBC (Bld) [#/Vol] 5.6 10*3/uL Normal 4.4-11.0 [facility] Comment on above: Performed By: #### L 300.3900, L503.6620, L501.5425, L503.6005, L500.4050, L100.0100, L300.4310 #### [facility] [address] [place], [address] Chest 1 View (Portable)on Chest 1 View (Portable) [facility] Imaging Services [address] [place] [address] Chest 1 View (Portable) MR#: [id number] Acct: [id number] Name: LINA CHAUDHRY Rep #: [id number] : 1950 F 73 From: Luis Antonio Trevino MD PCP: Dr. Matthew Valdivia, DO Status: [facility] ER Study: Chest 1 View (Portable) Date of Exam: 01/21/24 Exam# [id number] Ordering Dr: Hernan Diaz MD [id number] STUDY: X-RAY CHEST REASON FOR EXAM: Female, 73 years old. Respiratory failure TECHNIQUE: Single AP portable view of the chest. COMPARISON: August 24, 2022 FINDINGS: There are monitoring devices. There are mild lower lung increased opacities with consolidation and small pleural effusions. Normal size heart. Normal mediastinum and mark. Normal visualized pulmonary arteries. There is atherosclerotic calcification of the aortic arch with tortuosity. There is postoperative change with rods and screws in the thoracic spine. There is partial resection of the left sixth rib. There is no demonstrated abnormality of the visualized soft tissue structures of the upper abdomen. RAD/Chest 1 View (Portable) IMPRESSION: Lower lung infiltrates or edema and small pleural effusions. Electronically Signed: Luis Antonio Trevino MD at 12:59 EDT , CC: Dr. Matthew Valdivia DO; Dr. Hernan Diaz MD Shell Machine Operator: Signed Normal [facility] Comprehensive Metabolic Prof okon 01-21-2024 Albumin [Mass/Vol] 2.9 g/dL Low 3.2-5.0 [facility] Comment on above: Order Comment: 1 Y Performed By: #### L 300.3900, L503.6620, L501.5425, L503.6005, L500.4050, L100.0100, L300.4310 #### [facility] [address] [place], [address] Albumin/Globulin [Mass ratio] 0.7 {ratio} Low 0.9-2.4 [facility] Comment on above: Order Comment: 1 Y Performed By: #### L 300.3900, L503.6620, L501.5425, L503.6005, L500.4050, L100.0100, L300.4310 #### [facility] [address] [place], [address] ALK P 55 U/L Normal 45-117 [facility] Comment on above: Order Comment: 1 Y Performed By: #### L 300.3900, L503.6620, L501.5425, L503.6005, L500.4050, L100.0100, L300.4310 #### [facility] [address] [place], [address] ALT [Catalytic activity/Vol] 21 U/L Normal 13-56 [facility] Comment on above: Order Comment: 1 Y Performed By: #### L 300.3900, L503.6620, L501.5425, L503.6005, L500.4050, L100.0100, L300.4310 #### [facility] [address] [place], [address] AST [Catalytic activity/Vol] 24 U/L Normal 15-37 [facility] Comment on above: Order Comment: 1 Y Performed By: #### L 300.3900, L503.6620, L501.5425, L503.6005, L500.4050, L100.0100, L300.4310 #### [facility] [address] [place], [address] Bilirubin [Mass/Vol] 0.30 mg/dL Normal 0.20-1.00 [facility] Comment on above: Order Comment: 1 Y Result Comment: For patients on eltrombopag therapy, use of Dimension [place] TBIL is not recommended. Performed By: #### L 300.3900, L503.6620, L501.5425, L503.6005, L500.4050, L100.0100, L300.4310 #### [facility] [address] [place], [address] BUN/CRE 18.5 RATIO Normal 10-20 [facility] Comment on above: Order Comment: 1 Y Performed By: #### L 300.3900, L503.6620, L501.5425, L503.6005, L500.4050, L100.0100, L300.4310 #### [facility] [address] [place], [address] CA,Total 8.0 mg/dL Low 8.5-10.1 [facility] Comment on above: Order Comment: 1 Y Performed By: #### L 300.3900, L503.6620, L501.5425, L503.6005, L500.4050, L100.0100, L300.4310 #### [facility] [address] [place], [address] Chloride [Moles/Vol] 99 mmol/L Normal 98-107 [facility] Comment on above: Order Comment: 1 Y Performed By: #### L 300.3900, L503.6620, L501.5425, L503.6005, L500.4050, L100.0100, L300.4310 #### [facility] [address] [place], [address] CO2 [Moles/Vol] 27.0 mmol/L Normal 21.0-32.0 [facility] Comment on above: Order Comment: 1 Y Performed By: #### L 300.3900, L503.6620, L501.5425, L503.6005, L500.4050, L100.0100, L300.4310 #### [facility] [address] [place], [address] Creatinine [Mass/Vol] 2.65 mg/dL High 0.55-1.02 [facility] Comment on above: Order Comment: 1 Y Result Comment: The validity of the calculated GFR GFRAA in patients over 70 years has not been determined. Clinical correlation is essential. Performed By: #### L 300.3900, L503.6620, L501.5425, L503.6005, L500.4050, L100.0100, L300.4310 #### [facility] [address] [place], [address] ECRCL 25.41 ml/min Normal [facility] Comment on above: Order Comment: 1 Y Performed By: #### L 300.3900, L503.6620, L501.5425, L503.6005, L500.4050, L100.0100, L300.4310 #### [facility] [address] [place], [address] EST GFR - AA 23 mL/min Low >60 [facility] Comment on above: Order Comment: 1 Y Result Comment: Afri can Moldovan GFR Calc Performed By: #### L 300.3900, L503.6620, L501.5425, L503.6005, L500.4050, L100.0100, L300.4310 #### [facility] [address] [place], [address] GAP 8 Normal 5-15 [facility] Comment on above: Order Comment: 1 Y Performed By: #### L 300.3900, L503.6620, L501.5425, L503.6005, L500.4050, L100.0100, L300.4310 #### [facility] [address] [place], [address] GFR/1.73 sq M.predicted among non-blacks MDRD (S/P/Bld) [Vol rate/Area] 19 mL/min/{1.73_m2} Low >60 [facility] Comment on above: Order Comment: 1 Y Result Comment: Non- GFR Calc Performed By: #### L 300.3900, L503.6620, L501.5425, L503.6005, L500.4050, L100.0100, L300.4310 #### [facility] [address] [place], [address] Globulin (S) [Mass/Vol] 4.1 g/dL Normal 2.2-4.2 [facility] Comment on above: Order Comment: 1 Y Performed By: #### L 300.3900, L503.6620, L501.5425, L503.6005, L500.4050, L100.0100, L300.4310 #### [facility] [address] [place], [address] Glucose [Mass/Vol] 126 mg/dL High 74-106 [facility] Comment on above: Order Comment: 1 Y Result Comment: Fast ing Glucose result greater than or equal to 126 mg/dL suggests DIABETES MELLITUS per A.D.A. criteria. Performed By: #### L 300.3900, L503.6620, L501.5425, L503.6005, L500.4050, L100.0100, L300.4310 #### [facility] [address] [place], [address] Potassium [Moles/Vol] 4.8 mmol/L Normal 3.5-5.1 [facility] Comment on above: Order Comment: 1 Y Performed By: #### L 300.3900, L503.6620, L501.5425, L503.6005, L500.4050, L100.0100, L300.4310 #### [facility] [address] [place], [address] Sodium [Moles/Vol] 134 mmol/L Low 136-145 [facility] Comment on above: Order Comment: 1 Y Performed By: #### L 300.3900, L503.6620, L501.5425, L503.6005, L500.4050, L100.0100, L300.4310 #### [facility] [address] [place], [address] T PROT 7.0 g/dL Normal 6.4-8.2 [facility] Comment on above: Order Comment: 1 Y Performed By: #### L 300.3900, L503.6620, L501.5425, L503.6005, L500.4050, L100.0100, L300.4310 #### [facility] [address] [place], [address] Urea nitrogen [Mass/Vol] 49 mg/dL High 7-18 [facility] Comment on above: Order Comment: 1 Y Performed By: #### L 300.3900, L503.6620, L501.5425, L503.6005, L500.4050, L100.0100, L300.4310 #### [facility] [address] [place], [address] Emergency Department Summary on 01-21-2024 Emergency Department Summary [facility] Medical Records Department [address] [place] [id number] Emergency Department Summary 01/21/24 MR#: [id number] Acct: [id number] Name: LINA CHAUDHRY Rep #: [id number] : 1950 73 From: Hernan Diaz MD PCP: Dr. Matthew Valdivia, DO Status:REG ER Location: ED HPI History of Present Illness Chief Complaint: Alt LOC Detail of Chief Complaint: Altered mental status due to respiratory failure Informant: family Onset/Context/Timing Onset: Days (Not been her normal self for several days. Detailed HPI narrative) Context: Gradual Onset Timing: Continuous Quality: Altered mental status and hypoxia Location: Presumed respiratory versus cardiovascular Current Severity: Unable to tell since patient is nonverbal Maximum Severity: Unable to tell since patient is nonverbal Worsened by: Unknown Relieved by: Nothing Associated Symptoms Associated Symptoms: other (Unable to determine) Narrative Narrative: Patient is a 73-year-old woman who reportedly has been doing too much caring for her . They are both at [facility]. Family member this with her in the room feels that she overdid herself. There is no outbreak of COVID to their knowledge. She thought the patient's lips looked ashen/pond. Patient does have a signed DNR Comfort Care arrest with specific indication no intubation. History is limited because patient is somnolent. Prior similar symptoms: No Recent Illness/Hospitalizatio n: No PFSH PFSH Medical History Constipation Emphysema lung Thrombocytopenia Stroke/cerebrovascular accident History of pulmonary embolism HLD (hyperlipidemia) Chronic back pain COPD (chronic obstructive pulmonary disease) HTN (hypertension) Home Medications ???Medication ???Instructions ???Recorded ???Last Taken ???Type gemfibrozil 600 mg tablet 600 mg PO BID Check with primary 03/03/19 05/06/21 History doctor phentermine 37.5 mg tablet 37.5 mg PO DAILY WT LOSS 05/06/21 05/06/21 History apixaban 5 mg (74 tabs) tablets in See Taper PO BID #74 tabs 05/09/21 Unknown Rx a dose pack ([employer] DVT-PE Treat 30D Start) gabapentin 100 mg capsule 100 mg PO TID 30 days #90 caps 05/09/21 Unknown Rx loperamide 2 mg tablet 2 mg PO Q6H PRN Loose Stool 11/30/21 Unknown History amoxicillin 500 mg capsule 500 mg PO Q12 6 days #12 caps 12/04/21 Unknown Rx dexamethasone 4 mg tablet 6 mg (1.5 x 4 mg) PO DAILY 6 days 12/04/21 Unknown Rx #9 tabs doxycycline monohydrate 100 mg 100 mg PO BID #20 CAPSULES 08/24/22 Unknown Rx capsule Allergy/AdvReac Type Severity Reaction Status Date / Time No Known Allergies Allergy Verified 01/21/24 12:03 Family History Mother Heart disease Father Heart disease Surgical History Previous back surgery Social History household members: spouse Smoking Status: Former smoker alcohol intake: never substance use type: does not use ROS ROS ED Review of Systems ROS Unobtainable: due to mental status EXAM Physical Exam Const Vital Signs: 01/21/24 11:10 01/21/24 11:10 01/21/24 11:10 Temperature 98.5 F 98.5 F Temperature Source Oral Oral Pulse Rate 84 84 Respiratory Rate 24 H 24 H Blood Pressure 98/49 L 98/49 L Blood Pressure Mean 65 65 Pulse Ox 55 81 55 Oxygen Delivery Method Room Air Nasal Cannula Room Air Oxygen Flow Rate (L/min) 6 Fraction of Inspired Oxygen (FIO2) 01/21/24 11:20 01/21/24 11:31 01/21/24 11:40 Temperature Temperature Source Pulse Rate 69 71 Respiratory Rate 22 H 18 Blood Pressure 100/63 Blood Pressure Mean 75 Pulse Ox 95 98 95 Oxygen Delivery Method Non-Rebreather Non-Rebreather Oxygen Flow Rate (L/min) 15 Fraction of Inspired Oxygen (FIO2) 35 01/21/24 12:32 Temperature 98.6 F Temperature Source Oral Pulse Rate 67 Respiratory Rate 20 H Blood Pressure 121/60 H Blood Pressure Mean 80 Pulse Ox 94 Oxygen Delivery Method Bi-pap Oxygen Flow Rate (L/min) Fraction of Inspired Oxygen (FIO2) 35 Positive well nourished and well developed Constitutional Narrative: Patient is somnolent. She attempts to open her eyes to noxious stimuli. General Appearance ED: well developed and NAD; Negative for pallor HEENT normocephalic, atraumatic and cyanosis of lips/distal nose Eyes Eyes Narrative: There is mild exophthalmos's. Patient has no evidence subconjunctival hemorrhage. There is no nystagmus. General Eye ED: Negative for pale conjunctiva or scleral icterus Neck full ROM and no lymphadenopathy Neck Narrative: Unable to determine JVD because of body habitus. (more content not included)... Normal [facility] H AND P Exam - [facility]iston 01-21-2024 H&P Exam - Hospitalist [facility] Medical Records Department [address] [place] [address] H P Exam - Hospitalist 01/21/24 1313 MR#: [id number] Acct: [id number] Name: LINA CHAUDHRY Rep #: [id number] : 1950 73 From: Con Nation MD PCP: Dr. Matthew Valdivia, DO Status:ADM IN Location: ICU ICU02-1 HPI - General General Date of Admission: 01/21/24 Date of Service: 01/21/24 HPI Narrative LINA CHAUDHRY, is a 73 F who presents with altered mental status. Patient is a resident at an assisted living facility was found to be increasingly lethargic and sleepy during the day. EMS squad was called and patient was brought to the emergency department. Patient could not provide history given her present condition. History was therefore provided by her niece. Per patient's niece she did notice patient has been complaining of decreased energy level and increasing fatigue. There was no report of fever no chills. Patient's niece thought her condition was due to patient taking care of her however given her increasing lethargy the EMS cart was called as reported above. Workup in the emergency department demonstrated significant respiratory acidosis was placed on BiPAP and admitted to the intensive care unit for subsequent management [facility] Medical History Constipation Emphysema lung Thrombocytopenia Stroke/cerebrovascular accident History of pulmonary embolism HLD (hyperlipidemia) Chronic back pain COPD (chronic obstructive pulmonary disease) HTN (hypertension) Home Medications ???Medication ???Instructions ???Recorded ???Last Taken ???Type gemfibrozil 600 mg tablet 600 mg PO BID Check with primary 03/03/19 05/06/21 [address] doctor gabapentin 100 mg capsule 100 mg PO TID 30 days #90 caps 05/09/21 Unknown Rx loperamide 2 mg tablet 2 mg PO Q6H PRN Loose Stool 11/30/21 Unknown History acetaminophen 325 mg capsule 325 mg PO Q6H PRN fever or pain 01/21/24 Unknown History apixaban 5 mg tablet (Eliquis) 5 mg PO BID 01/21/24 Unknown History Allergy/AdvReac Type Severity Reaction Status Date / Time No Known Allergies Allergy Verified 01/21/24 12:03 Family History Mother Heart disease Father Heart disease Surgical History Previous back surgery Social History household members: spouse Smoking Status: Former smoker alcohol intake: never substance use type: does not use ROS ROS Narrative Unable to obtain given patient lethargy Vital Signs Vital Signs Vital Signs: 01/21/24 11:10 01/21/24 11:10 01/21/24 11:10 Temperature 98.5 F 98.5 F Temperature Source Oral Oral Pulse Rate 84 84 Respiratory Rate 24 H 24 H Blood Pressure 98/49 L 98/49 L Blood Pressure Mean 65 65 Pulse Ox 55 81 55 Oxygen Delivery Method Room Air Nasal Cannula Room Air Oxygen Flow Rate (L/min) 6 Fraction of Inspired Oxygen (FIO2) 01/21/24 11:20 01/21/24 11:31 01/21/24 11:40 Temperature Temperature Source Pulse Rate 69 71 Respiratory Rate 22 H 18 Blood Pressure 100/63 Blood Pressure Mean 75 Pulse Ox 95 98 95 Oxygen Delivery Method Non-Rebreather Non-Rebreather Oxygen Flow Rate (L/min) 15 Fraction of Inspired Oxygen (FIO2) 35 01/21/24 12:32 01/21/24 12:45 01/21/24 13:00 Temperature 98.6 F 98.5 F 98.6 F Temperature Source Axillary Axillary Axillary Pulse Rate 67 62 64 Respiratory Rate 20 H 15 18 Blood Pressure 121/60 H 117/64 101/71 Blood Pressure Mean 80 81 81 Pulse Ox 94 90 93 Oxygen Delivery Method Bi-pap Bi-pap Bi-pap Oxygen Flow Rate (L/min) Fraction of Inspired Oxygen (FIO2) 35 35 35 Weight Weight: 117 kg Body Mass Index (BMI) 39.2 Physical Exam Narrative GENERAL: Significantly lethargic on BiPAP HEENT: Atraumatic; normocephalic EYES; Anicteric, Normal Conjunctiva NECK; supple, normal thyroid, RESPIRATORY: Diminished to auscultation CARDIOVASCULAR: Regular S1 S2, GI: soft, normoactive bowel sounds, : No Renal angle tenderness; EXTREMITIES: edema, no clubbing, MUSCULOSKELETAL: no muscle wasting NEURO: Lethargic but arouses with sternal rub SKIN: No Rash PSYCH; lethargic Results Lab / Micro Data 01/21/24 11:30 01/21/24 11:30 Labs: Laboratory Results - last 24 hr 01/21/24 11:30: WBC 5.6, RBC 3.67 L, Hgb 11.7 L, Hct 40.0, MCV 109.0 H, MCH 31.9, MCHC 29.3 L, RDW Std Deviation 62.0 H, RDW Coeff of Alverto 15.8 H, Plt Count 173, MPV 10.5, Immature Gran % (Auto) 2.700 H, Neut % (Auto) 75.4 H, Lymph % (Auto) 12.3 L, [place] % (Auto) 8.7, Eos % (Auto) 0.0, Baso % (Auto) 0.9, Absolute Neuts (auto) 4.2, Absolute Lymphs (auto) 0 (more content not included)... Normal [facility] L501.4020on 01-21-2024 TROPONIN-I HS 315 pg/mL Invalid Interpretation Code 3.0-54.0 [facility] Comment on above: Result Comment: Crit ical Result(s) Called at: 14:31:43 01/21/2024 by: CLAY MIJARES. Results read back by Michaelle. Please Note: New Test Units and Gender Specific Reference Ranges. For more information see Policy Stat Procedure [place] High Sensitivity Troponin (TNIH) and attachments. Performed By: #### L 300.3900, L503.6620, L501.5425, L503.6005, L500.4050, L100.0100, L300.4310 #### [facility] [address] [place], [address] L501.5425on 01-21-2024 TROPONIN-I HS 277 pg/mL Invalid Interpretation Code 3.0-54.0 [facility] Comment on above: Order Comment: 1 Y Result Comment: Crit ical Result(s) Called at: 12:30:09 01/21/2024 by: CLAY MIJARES. Results read back by Michaelle Please Note: New Test Units and Gender Specific Reference Ranges. For more information see Policy Stat Procedure [place] High Sensitivity Troponin (TNIH) and attachments. Performed By: #### L 300.3900, L503.6620, L501.5425, L503.6005, L500.4050, L100.0100, L300.4310 #### [facility] [address] [place], [address] Lactic Acidon 01-21-2024 Lactate [Moles/Vol] 0.5 mmol/L Normal 0.4-1.9 [facility] Comment on above: Order Comment: Y Performed By: #### L 300.3900, L503.6620, L501.5425, L503.6005, L500.4050, L100.0100, L300.4310 #### [facility] [address] [place], [address] M100.678on 01-21-2024 M100.678 Pending SARS-CoV-2 (COVID 19) Negative INFLUENZA A Negative INFLUENZA B Negative RSV PCR Negative Normal [facility] Comment on above: Performed By: #### L 500.2500, L100.0100 #### [facility] [address] [place], [address] Partial Thromboplast Timeon 01-21-2024 aPTT Coag (Bld) [Time] 35.9 s Normal 24.1-36.2 [facility] Comment on above: Performed By: #### L 300.3900, L503.6620, L501.5425, L503.6005, L500.4050, L100.0100, L300.4310 #### [facility] [address] [place], [address] Prothrombin Time w/INRon INR Coag (PPP) [Relative time] 1.4 {INR} Normal [facility] Comment on above: Performed By: #### L 300.3900, L503.6620, L501.5425, L503.6005, L500.4050, L100.0100, L300.4310 #### [facility] [address] [place], [address] PT Coag (PPP) [Time] 17.1 s High 11.7-14.9 [facility] Comment on above: Performed By: #### L 300.3900, L503.6620, L501.5425, L503.6005, L500.4050, L100.0100, L300.4310 #### [facility] [address] [place], [address] RESPIRATORY PANEL MOLECULARo n 01-21-2024 RP PANEL ADENOVIRUS Not Detected INFLUENZA A Not Detected INFLUENZA A (SUBTYPE H1) Not Detected INFLUENZA A (SUBTYPE H3) Not Detected INFLUENZA B Not Detected HUMAN METAPHNEUMO Not Detected PARAINFLUENZA 1 Not Detected PARAINFLUENZA 2 Not Detected PARAINFLUENZA 3 Not Detected PARAINFLUENZA 4 Not Detected RHINOVIRUS Not Detected RSV A Not Detected RSV B Not Detected Normal [facility] Comment on above: Performed By: #### L 500.2500, L100.0100 #### [facility] [address] [place], [address] Urinalysis, Completeon 01-20 WBC 0-5 SEEN Normal 0-5 [facility] Comment on above: Order Comment: BOZENA TER SPECIMEN Performed By: #### L 500.2500, L100.0100 #### [facility] [address] [place], [address] BACTERIA 0 SEEN Normal None Seen [facility] Comment on above: Order Comment: BOZENA TER SPECIMEN Performed By: #### L 500.2500, L100.0100 #### [facility] [address] [place], [address] EPI,SQUAMOUS 0 SEEN Normal 5-10 [facility] Comment on above: Order Comment: BOZENA TER SPECIMEN Performed By: #### L 500.2500, L100.0100 #### [facility] [address] [place], [address] Mucus Ql (Urine sed) 0 SEEN Normal [facility] Comment on above: Order Comment: BOZENA TER SPECIMEN Performed By: #### L 500.2500, L100.0100 #### [facility] [address] [place], [address] RBC 0 SEEN Normal 0-5 [facility] Comment on above: Order Comment: BOZENA TER SPECIMEN Performed By: #### L 500.2500, L100.0100 #### [facility] [address] [place], [address] Chest WITH Contraston 2023 Chest WITH Contrast [facility] Imaging Services [address] [place] [address] Chest WITH Contrast MR#: [id number] Acct: [id number] Name: LINA CHAUDHRY Rep #: [id number] : 1950 F 72 From: Óscar love MD PCP: Dr. Matthew Valdivia DO Status: REG CLI Study: Chest WITH Contrast Date of Exam: 11/10/23 Exam# [id number] Ordering Dr: Matthew Valdivia DO [id number] STUDY: CT CHEST WITH CONTRAST REASON FOR EXAM: Female, 72 years old. LT LOWER RIB/CHEST WALL PAIN, SMOKER RADIATION DOSAGE (If Supplied By Facility): CTDIvol = ( 20.32 ) mGy, DLP = ( 797.97 ) mGycm TECHNIQUE: Transaxial imaging was performed following intravenous administration of 100 ml Isovue 370. Multiplanar coronal and sagittal images were reformatted. Individualized dose optimization techniques were used for this CT. COMPARISON: Comparison is made with prior study dated August 10, 2011. FINDINGS: CHEST Heterogeneous enlargement of the thyroid gland more prominent on the left side with the mild degree of left substernal extension. Increased markings in the posterior aspect of the lingular segment of the left upper lobe suggestive of scarring. There is also evidence of increased linear markings at the lung bases suggestive of linear scarring. 2 mm noncalcified nodule in the peripheral lateral aspect of the right upper lobe as seen on axial image #64. There is a 4.1 mm noncalcified nodule in the peripheral lateral aspect of the right middle lobe as seen on axial image #94. There is no demonstrated pleural abnormality. There are calcifications of the coronary arteries. Cardiomegaly. Normal mediastinum. Normal hilar regions. The main pulmonary artery is dilated. Normal aorta arch and descending thoracic aorta. Prior intraventricular sclerotic fixation of the thoracic vertebrae with increased kyphosis. Renal cortical thinning. CT/Chest WITH Contrast IMPRESSION: 4.1 mm noncalcified nodule in the peripheral lateral aspect of the right middle lobe as well as a 2 mm noncalcified nodule in the peripheral lateral aspect of the right upper lobe. These are unchanged. Electronically Signed: Óscar Leyva MD at 8:43 EDT , CC: Dr. Matthew Valdivia, DO Shell Machine Operator: Signed Normal [facility] CBC W/Diff, Automatedon - PATH REV Reviewed Normal [facility] Comment on above: Result Comment: ABSO LUTE NEUTOPENIA MACROCYTIC RBC's Clinical correlation suggested. Sathish Owens D.O. 10/27/23 AMENDED REPORT 10/27/23 1404 PATH REV previously reported as: September Performed By: #### L 500.2500, L100.0100 #### [facility] [address] [place], [address] Basic Metabolic Profile (BMP )on 10-26-2023 BUN/CRE 11.8 RATIO Normal 10-20 [facility] Comment on above: Performed By: #### L 500.2500, L100.0100 #### [facility] [address] [place], [address] CA,Total 9.4 mg/dL Normal 8.5-10.1 [facility] Comment on above: Performed By: #### L 500.2500, L100.0100 #### [facility] [address] [place], [address] Chloride [Moles/Vol] 106 mmol/L Normal 98-107 [facility] Comment on above: Performed By: #### L 500.2500, L100.0100 #### [facility] [address] [place], [address] CO2 [Moles/Vol] 27.0 mmol/L Normal 21.0-32.0 [facility] Comment on above: Performed By: #### L 500.2500, L100.0100 #### [facility] [address] [place], [address] Creatinine [Mass/Vol] 1.78 mg/dL High 0.55-1.02 [facility] Comment on above: Result Comment: The validity of the calculated GFR GFRAA in patients over 70 years has not been determined. Clinical correlation is essential. Performed By: #### L 500.2500, L100.0100 #### [facility] [address] [place], [address] EST GFR - AA 36 mL/min Low >60 [facility] Comment on above: Result Comment: Afri can [place] GFR Calc Performed By: #### L 500.2500, L100.0100 #### [facility] [address] [place], [address] GAP 6 Normal 5-15 [facility] Comment on above: Performed By: #### L 500.2500, L100.0100 #### [facility] [address] [place], [address] GFR/1.73 sq M.predicted among non-blacks MDRD (S/P/Bld) [Vol rate/Area] 30 mL/min/{1.73_m2} Low >60 [facility] Comment on above: Result Comment: Non- GFR Calc Performed By: #### L 500.2500, L100.0100 #### [facility] [address] [place], [address] Glucose [Mass/Vol] 85 mg/dL Normal 74-106 [facility] Comment on above: Performed By: #### L 500.2500, L100.0100 #### [facility] [address] [place], [address] Potassium [Moles/Vol] 4.9 mmol/L Normal 3.5-5.1 [facility] Comment on above: Performed By: #### L 500.2500, L100.0100 #### [facility] [address] [place], [address] Sodium [Moles/Vol] 139 mmol/L Normal 136-145 [facility] Comment on above: Performed By: #### L 500.2500, L100.0100 #### [facility] [address] [place], [address] Urea nitrogen [Mass/Vol] 21 mg/dL High 7-18 [facility] Comment on above: Performed By: #### L 500.2500, L100.0100 #### [facility] [address] [place], [address] Absolute lymphocyte countOrd ered By: Matthew Valdivia on 03-25-2023 Lymphocytes Auto (Unsp spec) [#/Vol] 0.75 10*3/uL 0.83-4.51 [facility] Basophil percentageOrdered B y: Matthew Valdivia on 03-25-2023 Basophils/100 WBC (Bld) 0.7 % 0-1 [facility] Bilirubin [Mass/Vol] 0.20 mg/dL 0.20-1.00 [facility] Comment on above: For patients on eltr ombopag therapy, use of Dimension [place] TBIL is not recommended. Chloride [Moles/Vol] 106 mmol/L 98-107 [facility] Eosinophils/100 WBC (Bld) 1.1 % 0-5 [facility] Glucose [Mass/Vol] 86 mg/dL 74-106 [facility] Neutrophils (Bld) [#/Vol] 1.6 10*3/uL 2.0-7.7 [facility] Neutrophils/100 WBC (Bld) 58.6 % 47-70 [facility] Potassium [Moles/Vol] 4.8 mmol/L 3.5-5.1 [facility] Comment on above: Slight Hemolysis, Re sult may be falsely increased. Protein [Mass/Vol] 7.4 g/dL 6.4-8.2 [facility] Sodium [Moles/Vol] 140 mmol/L 136-145 [facility] WBC (Bld) [#/Vol] 2.8 10*3/uL 4.4-11.0 [facility] Blood erythrocytes count (nu mber/volume)Ordered By: Matthew Valdivia on 03-25-2023 RBC (Bld) [#/Vol] 3.63 10*6/uL 4.2-5.4 [facility] Blood hemoglobin measurement (mass/volume)Ordered By: Matthew Valdivia on 03-25-2023 Hemoglobin (Bld) [Mass/Vol] 11.8 g/dL 12.0-15.0 [facility] Blood lymphocytes/100 leukoc ytesOrdered By: Matthew Valdivia on 03-25-2023 Lymphocytes/100 WBC (Bld) 26.8 % 19-41 [facility] Blood monocytes/100 leukocyt esOrdered By: Matthew Valdivia on 03-25-2023 Monocytes/100 WBC (Bld) 12.1 % 0-10 [facility] Blood platelet mean volumeOr dered By: Matthew Valdivia on 03-25-2023 Platelet mean volume (Bld) [Entitic vol] 10.9 fL 6.2-12.0 [facility] Determination of erythrocyte mean corpuscular volume (MCV)Ordered By: Matthew Valdivia on 03-25-2023 MCV (RBC) [Entitic vol] 107.4 fL 81-99 [facility] Hematocrit Auto (Bld) [Volum e fraction]Ordered By: Matthew Valdivia on 03-25-2023 Hematocrit (Bld) [Volume fraction] 39.0 % 37-47 [facility] - Chemistry and C hemistry - challengeOrdered By: Matthew Valdivia on 03-25-2023 ALP [Catalytic activity/Vol] 48 U/L 45-117 [facility] ALT [Catalytic activity/Vol] 19 U/L 13-56 [facility] CO2 [Moles/Vol] 28.0 mmol/L 21.0-32.0 [facility] Free T4 [Mass/Vol] 0.69 ng/dL 0.76-1.46 [facility] Globulin (S) [Mass/Vol] 4.1 g/dL 2.2-4.2 [facility] Urea nitrogen/Creatinine [Mass ratio] 16.9 mg/mg 10-20 [facility] - Hematology and Cell countsOrdered By: Matthew Valdivia on 03-25-2023 Erythrocyte distribution width (RBC) [Entitic vol] 54.5 fL 35.1-43.9 [facility] Erythrocyte distribution width (RBC) [Ratio] 13.7 % 11.6-14.6 [facility] Immature granulocytes/100 WBC (Bld) 0.700 % 0.0-0.9 [facility] Comment on above: IG% - Immature Granu locytes (promyelocytes, myelocytes and metamyelocytes) > 1% indicates that a LEFT SHIFT is Present. MCH (RBC) [Entitic mass] 32.5 pg 27.0-32.0 [facility] Nucleated RBC/100 WBC (Bld) [Ratio] 0 % 0-5 [facility] MCHC Auto (RBC) [Mass/Vol]Or dered By: Matthew Valdivia on 03-25-2023 MCHC (RBC) [Mass/Vol] 30.3 g/dL 32-36 [facility] No Panel InformationOrdered By: Matthew Valdivia on 03-25-2023 Estimated GFR (MDRD) Amer 37 mL/min >60 [facility] Comment on above: GFR Calc Estimated GFR (MDRD) Non-Af Amer 31 mL/min >60 [facility] Comment on above: Non- GFR Calc Thyroid Stimulating Hormone (TSH) 3.38 uIU/mL 0.358-3.74 [facility] Platelets bldOrdered By: Kim Valdivia on 03-25-2023 Platelets (Bld) [#/Vol] 145 10*3/uL 150-450 [facility] Serum or plasma albumin jocelyn urement (mass/volume)Ordered By: Matthew Valdivia on 03-25-2023 Albumin [Mass/Vol] 3.3 g/dL 3.2-5.0 [facility] Serum or plasma albumin/glob ulin mass ratioOrdered By: Matthew Valdivia on 03-25-2023 Albumin/Globulin [Mass ratio] 0.8 {ratio} 0.9-2.4 [facility] Serum or plasma calcium jocelyn urement (mass/volume)Ordered By: Matthew Valdivia on 03-25-2023 Calcium [Mass/Vol] 8.9 mg/dL 8.5-10.1 [facility] Serum or plasma cortisol cathy surement (mass/volume)Ordered By: Matthew Valdivia on 03-25-2023 Cortisol [Mass/Vol] 10.40 ug/dL 3.44-22.45 [facility] Comment on above: Adult (AM) 5.27 - 22 .45 ug/dL Adult (PM) 3.44 - 16.76 ug/dLPlease note revised CORTISOL reference range effective 2019. Serum or plasma creatinine m easurement (mass/volume)Ordered By: Matthew Valdivia on 03-25-2023 Creatinine [Mass/Vol] 1.72 mg/dL 0.55-1.02 [facility] Comment on above: The validity of the calculated GFR & GFRAA in patients over 70 years has not been determined. Clinical correlation is essential. Serum or plasma urea nitroge n measurement (mass/volume)Ordered By: Matthew Valdivia on 03-25-2023 Urea nitrogen [Mass/Vol] 29 mg/dL 7-18 [facility] Thin prep Papanicolaou smear with manual screeningOrdered By: Matthew Valdivia on 03-25-2023 Thin prep Papanicolaou smear with manual screening 23 U/L 15-37 [facility] Comment on above: Slight Hemolysis, Re sult may be falsely increased. Thin prep Papanicolaou smear with manual screening 6 5-15 [facility] Whole blood hemoglobin A1c/t otal hemoglobin ratio (mass fraction)Ordered By: Matthew Valdivia on 03-25-2023 HbA1c (Bld) [Mass fraction] 4.9 % 3.8-5.6 [facility] Comment on above: Normal < 5.7 % Predi abetic 5.7 - 6.4 % Diabetic >or= 6.5 % Please note range changes. Assessment of wrist artery p atency prior to arterial punctureOrdered By: Dr. Whipple on 08-24-2022 Arterial patency Wrist artery --pre arterial puncture Positive [facility] Base excessOrdered By: Dr. Ronan gaspar on 08-24-2022 Base excess Calc (BldV) [Moles/Vol] 2 mmol/L -2-2 [facility] Basophil percentageOrdered B y: Dr. Whipple on 08-24-2022 Basophil percentage 31.9 mmol/L 22- [facility] Basophils/100 WBC (Bld) 72 % 95-99 [facility] CO2 (BldA) [Partial pressure ]Ordered By: Dr. Whipple on 08-24-2022 CO2 (Bld) [Partial pressure] 106.4 mm[Hg] 35-45 [facility] Influenza virus A and B and SARS-CoV-2 (COVID-19) Ag panel - Upper respiratory specimOrdered By: Dr. Whipple on 08-24-2022 SARS-CoV-2 (COVID-19) RNA NICOLE+probe Ql (Resp) [facility] No Panel InformationOrdered By: Dr. Whipple on 08-24-2022 Bld Gas Crit Called To/Read Back By Yes [facility] Blood Gas Liter Flow 10.0 /min [facility] Blood Gas Sample Site R Radial [facility] Blood Gas Specimen Type ART [facility] Blood Gas Total CO2 35 mmol/L [facility] Oxygen Delivery Device Cannula [facility] Oxygen (BldA) [Partial press ure]Ordered By: Dr. Whipple on 08-24-2022 Oxygen (Bld) [Partial pressure] 55 mmHG 75-100 [facility] pH measurementOrdered By: Dr Saravanan Whipple on 08-24-2022 pH (Unsp spec) 7.09 [pH] 7.35-7.45 [facility] Absolute lymphocyte counton 12-04-2021 Lymphocytes Auto (Unsp spec) [#/Vol] 0.42 10*3/uL 0.83-4.51 [facility] Work Phone: Basophil percentageon 2021 Basophils/100 WBC (Bld) 0.3 % 0-1 [facility] Work Phone: Chloride [Moles/Vol] 105 mmol/L 98-107 [facility] Work Phone: Eosinophils/100 WBC (Bld) 0.0 % 0-5 [facility] Work Phone: Glucose [Mass/Vol] 84 mg/dL 74-106 [facility] Work Phone: Neutrophils (Bld) [#/Vol] 3.1 10*3/uL 2.0-7.7 [facility] Work Phone: Neutrophils/100 WBC (Bld) 81.0 % 47-70 [facility] Work Phone: Potassium [Moles/Vol] 3.6 mmol/L 3.5-5.1 [facility] Work Phone: Comment on above: Slight Hemolysis, Re sult may be falsely increased. Sodium [Moles/Vol] 140 mmol/L 136-145 [facility] Work Phone: WBC (Bld) [#/Vol] 3.8 10*3/uL 4.4-11.0 [facility] Work Phone: Blood erythrocytes count (nu mber/volume)on 12-04-2021 RBC (Bld) [#/Vol] 3.48 10*6/uL 4.2-5.4 [facility] Work Phone: Blood hemoglobin measurement (mass/volume)on 12-04-2021 Hemoglobin (Bld) [Mass/Vol] 11.0 g/dL 12.0-15.0 [facility] Work Phone: Blood lymphocytes/100 leukoc yteson 12-04-2021 Lymphocytes/100 WBC (Bld) 10.9 % 19-41 [facility] Work Phone: Blood manual differential co mment interpretation (narrative result)on 12-04-2021 Manual differential comment Alvaro (Bld) [Interp] SCANNED [facility] Work Phone: Blood monocytes/100 leukocyt eson 12-04-2021 Monocytes/100 WBC (Bld) 7.0 % 0-10 [facility] Work Phone: [phone] Blood platelet mean volumeon 12-04-2021 Platelet mean volume (Bld) [Entitic vol] 10.2 fL 6.2-12.0 [facility] Work Phone: [phone] Determination of erythrocyte mean corpuscular volume (MCV)on 12-04-2021 MCV (RBC) [Entitic vol] 98.9 fL 81-99 [facility] Work Phone: [phone] Hematocrit Auto (Bld) [Volum e fraction]on 12-04-2021 Hematocrit (Bld) [Volume fraction] 34.4 % 37-47 [facility] Work Phone: Laboratory - Chemistry and C hemistry - challengeon 12-04-2021 CO2 [Moles/Vol] 31.0 mmol/L 21.0-32.0 [facility] Work Phone: [phone] Urea nitrogen/Creatinine [Mass ratio] 21.5 mg/mg 10-20 [facility] Work Phone: [phone] Laboratory - Hematology and Cell countson 12-04-2021 Erythrocyte distribution width (RBC) [Entitic vol] 47.8 fL 35.1-43.9 [facility] Work Phone: [phone] Erythrocyte distribution width (RBC) [Ratio] 13.2 % 11.6-14.6 [facility] Work Phone: [phone] Immature granulocytes/100 WBC (Bld) 0.800 % 0.0-0.9 [facility] Work Phone: [phone] Comment on above: IG% - Immature Granu locytes (promyelocytes, myelocytes and metamyelocytes) > 1% indicates that a LEFT SHIFT is Present. MCH (RBC) [Entitic mass] 31.6 pg 27.0-32.0 [facility] Work Phone: Nucleated RBC/100 WBC (Bld) [Ratio] 0 % 0-5 [facility] Work Phone: MCHC Auto (RBC) [Mass/Vol]on 12-04-2021 MCHC (RBC) [Mass/Vol] 32.0 g/dL 32-36 [facility] Work Phone: No Panel Informationon 12-04 Estimated Creatinine Clearance Calc 43.02 ml/min [facility] Work Phone: Estimated GFR (MDRD) Amer 56 mL/min >60 [facility] Work Phone: Comment on above: GFR Calc Estimated GFR (MDRD) Non-Af Amer 47 mL/min >60 [facility] Work Phone: Comment on above: Non- GFR Calc Platelets bldon 12-04-2021 Platelets (Bld) [#/Vol] 108 10*3/uL 150-450 [facility] Work Phone: Review by pathologiston Pathologist review Alvaro (Unsp spec) [Interp] May toyin [facility] Work Phone: Serum or plasma calcium jocelyn urement (mass/volume)on 12-04-2021 Calcium [Mass/Vol] 8.3 mg/dL 8.5-10.1 [facility] Work Phone: Serum or plasma creatinine m easurement (mass/volume)on 12-04-2021 Creatinine [Mass/Vol] 1.21 mg/dL 0.55-1.02 [facility] Work Phone: Comment on above: The validity of the calculated GFR & GFRAA in patients over 70 years has not been determined. Clinical correlation is essential. Serum or plasma urea nitroge n measurement (mass/volume)on 12-04-2021 Urea nitrogen [Mass/Vol] 26 mg/dL 7-18 [facility] Work Phone: Thin prep Papanicolaou smear with manual screeningon 12-04-2021 Thin prep Papanicolaou smear with manual screening 4 5-15 [facility] Work Phone: Assessment of wrist artery p atency prior to arterial punctureon 12-02-2021 Arterial patency Wrist artery --pre arterial puncture Positive [facility] Work Phone: [phone] Base excesson 12-02-2021 Base excess Calc (BldV) [Moles/Vol] -2 mmol/L -2-2 [facility] Work Phone: Basophil percentageon 2021 Basophil percentage 23.2 mmol/L 22-26 [facility] Work Phone: Basophils/100 WBC (Bld) 87 % 95-99 [facility] Work Phone: CO2 (BldA) [Partial pressure ]on 12-02-2021 CO2 (Bld) [Partial pressure] 41.8 mm[Hg] 35-45 [facility] Work Phone: [phone] Glucose Glucometer (BldC) [M ass/Vol]on 12-02-2021 Glucose [Mass/Vol] 99 mg/dL 74-106 [facility] Work Phone: Comment on above: MANAGEMENT OF PATIEN T CARE PER NURSING PROTOCOL No Panel Informationon 12-02 Bedside Blood Gas PEEP 5 [facility] Work Phone: Bedside Blood Gas Pressure Support 5 [facility] Work Phone: Blood Gas Oxygen Percent 25 [facility] Work Phone: Blood Gas Sample Site L Radial [facility] Work Phone: Blood Gas Specimen Type ART [facility] Work Phone: [phone] Blood Gas Total CO2 25 mmol/L [facility] Work Phone: Blood Gas Vent Mode CPAP/PS [facility] Work Phone: Oxygen Delivery Device Adult Vent [facility] Work Phone: [phone] Oxygen (BldA) [Partial press ure]on 12-02-2021 Oxygen (Bld) [Partial pressure] 55 mmHG 75-100 [facility] Work Phone: pH measurementon 12-02-2021 pH (Unsp spec) 7.35 [pH] 7.35-7.45 [facility] Work Phone: Basophil percentageon 2021 Bilirubin [Mass/Vol] 0.10 mg/dL 0.20-1.00 [facility] Work Phone: Comment on above: For patients on eltr ombopag therapy, use of Dimension [place] TBIL is not recommended. Protein [Mass/Vol] 7.3 g/dL 6.4-8.2 [facility] Work Phone: Triglyceride [Mass/Vol] 79 mg/dL <199 [facility] Work Phone: Comment on above: The drugs N-Acetylcy steine and Metamizole may falsely depress this assay.Serum Triglycerides Reference Interval Normal <150 mg/dL Borderline high 150 - 199 mg/dL High 200 - 499 mg/dL Very High > or = 500 mg/dL Laboratory - Chemistry and C hemistry - challengeon 12-01-2021 ALP [Catalytic activity/Vol] 53 U/L 45-117 [facility] Work Phone: ALT [Catalytic activity/Vol] 18 U/L 13-56 [facility] Work Phone: CK [Catalytic activity/Vol] 208 U/L 26-192 [facility] Work Phone: Globulin (S) [Mass/Vol] 4.0 g/dL 2.2-4.2 [facility] Work Phone: Natriuretic peptide B (Bld) [Mass/Vol] 266.5 pg/mL 0-100 [facility] Work Phone: Laboratory - Microbiology an d Antimicrobial susceptibilityon 12-01-2021 SARS-CoV-2 (COVID-19) RNA NICOLE+probe Ql (Unsp spec) Detected Not Detect [facility] Work Phone: Comment on above: RESULTS CALLED TO KENIA CARR 12/01/21 0438 Roman Rivera.REPORT READ BACK BY SAME.Normal Reference Range: Not DetectedMethod:(RT-PCR) real-time reverse transcriptase PCRLuOrganizerx VideoMining Instrument*The Food and Drug Administration (FDA) has issued an Emergency Use Authorization (EAU) for the VideoMining SARS-CoV-2 Assay for the rapid detection of the virus that causes COVID-19. This test has been validated, but the FDAs independent review of this validation is pending.*Negative results do not preclude infection and should not be used as the sole basis for treatment or patient management. Optimum specimen types and timing for peak viral levels during infections caused by SARS-CoV-2 have not been determined. Collection of multiple specimens from the same patient may be necessary to detect the virus. The possibility of a false negative result should be considered if the patient has clinical presentation or has had recent exposure. No Panel Informationon 12-01 Blood Gas Respiration Rate 14 [facility] Work Phone: [phone] Blood Gas Tidal Volume 450 [facility] Work Phone: [phone] Bld Gas Crit Called To/Read Back By Yes [facility] Work Phone: [phone] Blood Gas Clinical Comments See comment [facility] Work Phone: [phone] Comment on above: AVAPS VT450 RR16 E8 MIN16 MAX26 45% Blood Gas Notified Whom Nicole Villa [facility] Work Phone: [phone] Serum or plasma albumin jocelyn urement (mass/volume)on 12-01-2021 Albumin [Mass/Vol] 3.3 g/dL 3.2-5.0 [facility] Work Phone: [phone] Serum or plasma albumin/glob ulin mass ratioon 12-01-2021 Albumin/Globulin [Mass ratio] 0.8 {ratio} 0.9-2.4 [facility] Work Phone: [phone] Serum procalcitonin measurem enton 12-01-2021 Procalcitonin [Mass/Vol] 0.21 ng/mL 0.00-0.09 [facility] Work Phone: [phone] Comment on above: A procalcitonin (PCT ) level above 2.0 ng/mL on the first day of ICU admission is associated with a high risk for progression to severe sepsis and/or septic shock. A PCT level below 0.5 ng/mL on the first day of ICU admission is associated with a low risk for progression to severe and/or septic shock. Note: Concentrations <0.5 ng/mL do not exclude an infection on account of localized infections (without systemic signs) which can be associated with such low concentrations, or a systemic infection in its initial stages (<6 hours). Furthermore, increased procalcitonin can occur without infection. PCT concentrations between 0.5 and 2.0 ng/mL should be interpreted taking into account the patient's history. It is recommended to retest PCT within 6-24 hours if any concentrations <2 ng/mL are obtained. Thin prep Papanicolaou smear with manual screeningon 12-01-2021 Thin prep Papanicolaou smear with manual screening 23 U/L 15-37 [facility] Work Phone: Absolute lymphocyte counton 11-30-2021 Lymphocytes Auto (Unsp spec) [#/Vol] 0.51 10*3/uL 0.83-4.51 [facility] Work Phone: Assessment of wrist artery p atency prior to arterial punctureon 11-30-2021 Arterial patency Wrist artery --pre arterial puncture Positive [facility] Work Phone: Base excesson 11-30-2021 Base excess Calc (BldV) [Moles/Vol] 0 mmol/L -2-2 [facility] Work Phone: Basophil percentageon 2021 Basophil percentage 29.4 mmol/L 22-26 [facility] Work Phone: [phone] Basophils/100 WBC (Bld) 89 % 95-99 [facility] Work Phone: [phone] Basophil percentage 0-5 SEEN /hpf 0-5 [facility] Work Phone: Basophils/100 WBC (Bld) 0.3 % 0-1 [facility] Work Phone: [phone] Bilirubin [Mass/Vol] 0.20 mg/dL 0.20-1.00 [facility] Work Phone: [phone] Comment on above: For patients on eltr ombopag therapy, use of Dimension [place] TBIL is not recommended. Chloride [Moles/Vol] 102 mmol/L 98-107 [facility] Work [facility]: Eosinophils/100 WBC (Bld) 0.0 % 0-5 [facility] Work Phone: Glucose [Mass/Vol] 112 mg/dL 74-106 [facility] Work Phone: Comment on above: Fasting Glucose resu lt from 100 to 125 mg/dL suggests IMPAIRED HOMEOSTASIS per A.D.A. criteria. Lactate [Moles/Vol] 0.8 mmol/L 0.4-2.0 [facility] Work Phone: Neutrophils (Bld) [#/Vol] 2.8 10*3/uL 2.0-7.7 [facility] Work Phone: Neutrophils/100 WBC (Bld) 73.7 % 47-70 [facility] Work Phone: Potassium [Moles/Vol] 4.7 mmol/L 3.5-5.1 [facility] Work Phone: Protein [Mass/Vol] 7.6 g/dL 6.4-8.2 [facility] Work Phone: Sodium [Moles/Vol] 135 mmol/L 136-145 [facility] Work Phone: WBC (Bld) [#/Vol] 3.8 10*3/uL 4.4-11.0 [facility] Work Phone: Bilirubin Test strip Ql (U)o n 11-30-2021 Bilirubin Ql (U) 1 mg/dL Negative [facility] Work Phone: Comment on above: NCOLOR OF URINE MAY AFFECT DIPSTICK RESULTS. Blood erythrocytes count (nu mber/volume)on 11-30-2021 RBC (Bld) [#/Vol] 3.89 10*6/uL 4.2-5.4 [facility] Work Phone: Blood hemoglobin measurement (mass/volume)on 11-30-2021 Hemoglobin (Bld) [Mass/Vol] 12.4 g/dL 12.0-15.0 [facility] Work Phone: Blood lymphocytes/100 leukoc yteson 11-30-2021 Lymphocytes/100 WBC (Bld) 13.5 % 19-41 [facility] Work Phone: [phone] Blood manual differential co mment interpretation (narrative result)on 11-30-2021 Manual differential comment Alvaro (Bld) [Interp] SCANNED [facility] Work Phone: Comment on above: LYMPHOPENIA NOTED Blood monocytes/100 leukocyt eson 11-30-2021 Monocytes/100 WBC (Bld) 11.4 % 0-10 [facility] Work Phone: Blood platelet mean volumeon 11-30-2021 Platelet mean volume (Bld) [Entitic vol] 10.1 fL 6.2-12.0 [facility] Work Phone: CO2 (BldA) [Partial pressure ]on 11-30-2021 CO2 (Bld) [Partial pressure] 93.8 mm[Hg] 35-45 [facility] Work Phone: [phone] Determination of erythrocyte mean corpuscular volume (MCV)on 11-30-2021 MCV (RBC) [Entitic vol] 101.3 fL 81-99 [facility] Work Phone: Direct bilirubinon Bilirubin.direct [Mass/Vol] 0.09 mg/dL 0.00-0.30 [facility] Work Phone: [phone] Hematocrit Auto (Bld) [Volum e fraction]on 11-30-2021 Hematocrit (Bld) [Volume fraction] 39.4 % 37-47 [facility] Work Phone: [phone] Ketones Test strip Ql (U)on 11-30-2021 Ketones Ql (U) Negative Negative [facility] Work Phone: [phone] Laboratory - Chemistry and C hemistry - challengeon 11-30-2021 ALP [Catalytic activity/Vol] 56 U/L 45-117 [facility] Work Phone: [phone] ALT [Catalytic activity/Vol] 17 U/L 13-56 [facility] Work Phone: [phone] CO2 [Moles/Vol] 27.0 mmol/L 21.0-32.0 [facility] Work Phone: [phone] Globulin (S) [Mass/Vol] 3.9 g/dL 2.2-4.2 [facility] Work Phone: [phone] Urea nitrogen/Creatinine [Mass ratio] 13.7 mg/mg 10-20 [facility] Work Phone: [phone] Laboratory - Hematology and Cell countson 11-30-2021 Erythrocyte distribution width (RBC) [Entitic vol] 50.4 fL 35.1-43.9 [facility] Work Phone: [phone] Erythrocyte distribution width (RBC) [Ratio] 13.6 % 11.6-14.6 [facility] Work Phone: [phone] Immature granulocytes/100 WBC (Bld) 1.100 % 0.0-0.9 [facility] Work Phone: [phone] Comment on above: IG% - Immature Granu locytes (promyelocytes, myelocytes and metamyelocytes) > 1% indicates that a LEFT SHIFT is Present. MCH (RBC) [Entitic mass] 31.9 pg 27.0-32.0 [facility] Work Phone: Nucleated RBC/100 WBC (Bld) [Ratio] 0 % 0-5 [facility] Work Phone: [phone] MCHC Auto (RBC) [Mass/Vol]on 11-30-2021 MCHC (RBC) [Mass/Vol] 31.5 g/dL 32-36 [facility] Work Phone: Mucus LM Ql (Urine sed)on Mucus Ql (Urine sed) 0 SEEN /hpf [facility] Work Phone: [phone] Nitrite Test strip Ql (U)on 11-30-2021 Nitrite Ql (U) Negative Negative [facility] Work Phone: [phone] No Panel Informationon 11-30 Methicillin-Resist S.aureus DNA PCR Negative Negative [facility] Work Phone: [phone] Bld Gas Crit Called To/Read Back By Yes [facility] Work Phone: Blood Gas Liter Flow 6.0 /min [facility] Work Phone: [phone] Blood Gas Notified Whom whipple [facility] Work Phone: Blood Gas Sample Site R Radial [facility] Work Phone: Blood Gas Specimen Type ART [facility] Work Phone: Blood Gas Total CO2 32 mmol/L [facility] Work Phone: Oxygen Delivery Device Cannula [facility] Work Phone: [phone] Blood Gas Liter Flow 6.0 /min [facility] Work Phone: Blood Gas Notified Time 2212 [facility] Work Phone: [phone] D-Dimer Quantitative (PE/DVT) 1.22 FEU/ug/m 0.27-0.49 [facility] Work Phone: Comment on above: D-Dimer ELEVATED (>0 .49): Additional studies and clinicalassessments are indicated to conclude diagnosis of:Deep Vein Thrombosis (DVT) or Pulmonary Embolism (PE)CRITICAL VALUE VERIFIED. CALLED TO [id number] Kaylah Maurice.RESULTS READ BACK BY SAME . Estimated Creatinine Clearance Calc 25.52 ml/min [facility] Work Phone: [phone] Estimated GFR (MDRD) Amer 31 mL/min >60 [facility] Work Phone: Comment on above: GFR Calc Estimated GFR (MDRD) Non-Af Amer 26 mL/min >60 [facility] Work Phone: [phone] Comment on above: Non- GFR Calc Troponin I High Sensitivity 41 pg/mL 3.0-54.0 [facility] Work Phone: [phone] Comment on above: Please Note: New Rosa Elena t Units and Gender Specific Reference Ranges. For more information see Policy Stat Procedure [place] High Sensitivity Troponin (TNIH) and attachments. Oxygen (BldA) [Partial press ure]on 11-30-2021 Oxygen (Bld) [Partial pressure] 78 mmHG 75-100 [facility] Work Phone: Platelets bldon 11-30-2021 Platelets (Bld) [#/Vol] 127 10*3/uL 150-450 [facility] Work Phone: Protein Test strip Ql (U)on 11-30-2021 Protein Ql (U) 100 mg/dl Negative [facility] Work Phone: Serum or plasma C reactive p rotein measurement (mass/volume)on 11-30-2021 CRP [Mass/Vol] 4.11 mg/L 0.0-3.0 [facility] Work Phone: Comment on above: C-Reactive Protein ( CRP) provides useful information for thediagnosis, therapy and monitoring of inflammatory processesand associated diseases. For the evaluation of Relative Riskfor Cardiovascular Disease, a High Sensitivity CRP (HSCRP)should be ordered. Serum or plasma albumin jocelyn urement (mass/volume)on 11-30-2021 Albumin [Mass/Vol] 3.7 g/dL 3.2-5.0 [facility] Work Phone: Serum or plasma calcium jocelyn urement (mass/volume)on 11-30-2021 Calcium [Mass/Vol] 8.7 mg/dL 8.5-10.1 [facility] Work Phone: Serum or plasma creatinine m easurement (mass/volume)on 11-30-2021 Creatinine [Mass/Vol] 2.04 mg/dL 0.55-1.02 [facility] Work Phone: Comment on above: The validity of the calculated GFR & GFRAA in patients over 70 years has not been determined. Clinical correlation is essential. Serum or plasma ferritin cathy surement (mass/volume)on 11-30-2021 Ferritin [Mass/Vol] 79 ng/mL 8-252 [facility] Work Phone: Serum or plasma urea nitroge n measurement (mass/volume)on 11-30-2021 Urea nitrogen [Mass/Vol] 28 mg/dL 7-18 [facility] Work Phone: Squamous epithelial cells de tection in urine sediment by light microscopyon 11-30-2021 Epithelial cells.squamous LM Ql (Urine sed) 0-5 SEEN /hpf 5-10 [facility] Work Phone: Thin prep Papanicolaou smear with manual screeningon 11-30-2021 Thin prep Papanicolaou smear with manual screening 22 U/L 15-37 [facility] Work Phone: Thin prep Papanicolaou smear with manual screening 6 5-15 [facility] Work Phone: Thin prep Papanicolaou smear with manual screening 198 U/L 84-246 [facility] Work Phone: Urine blood detectionon 07- RBC Ql (U) 50 /ul Negative [facility] Work Phone: RBC Ql (U) 0-5 SEEN /hpf 0-5 [facility] Work Phone: Urine clarityon 11-30-2021 Clarity (U) Clear Clear [facility] Work Phone: Urine coarse granular cast d etectionon 11-30-2021 Coarse Granular Casts LM Ql (Urine sed) 5-10 SEEN /lpf 0-5 /lpf [facility] Work Phone: Urine color determinationon 11-30-2021 Color (U) Yellow Yellow [facility] Work Phone: Urine glucose detectionon Glucose Ql (U) Normal mg/dl Normal [facility] Work Phone: Urine leukocyte esterase det ection by dipstickon 11-30-2021 Leukocyte esterase Test strip Ql (U) Negative Negative [facility] Work Phone: Urine pHon 11-30-2021 pH (U) 5.0 [pH] 5.0 - 8.0 [facility] Work Phone: Urine sediment bacteria coun t by microscopy (number/high power field)on 11-30-2021 Bacteria LM.HPF (Urine sed) [#/Area] RARE /hpf None Seen [facility] Work Phone: Urine sediment fine granular cast count by microscopy (number/low power field)on 11-30-2021 Fine Granular Casts LM.LPF (Urine sed) [#/Area] 5-10 SEEN /lpf 0-5 [facility] Work Phone: Urine specific gravity measu rementon 11-30-2021 Specific gravity (U) [Rel density] 1.020 1.002-1.030 [facility] Work Phone: Urobilinogen Auto test strip Ql (U)on 11-30-2021 Urobilinogen Ql (U) Normal mg/dl Normal [facility] Work Phone: pH measurementon 11-30-2021 pH (Unsp spec) 7.10 [pH] 7.35-7.45 [facility] Work Phone: CNOVon 05-05-2021 CNOV Office Visit (UCWSTR ) LINA CHAUDHRY ([id number]) 1950 F Date Time Provider Department 05/05/21 10:30 AM [place] [facility] During your visit today, we recorded the following information about you: Temperature Pulse Respiration Blood pressure 97.8 degrees 91/minute 16/minute 98/58 Weight 90.7 kg Montana Hendrix PA-C 05/05/2021 9:18 PM Signed Subjective HPI HPI Linachristine Chaudhry is a 70 year old female who presents with pleuritic CP that feels just like my previous blood clot. Has a hx of PE. C/o associated SOB. BP 98/58 Pulse 91 Temp 36.6 ?C (97.8 ?F) Resp 16 Wt 90.7 kg (200 lb) SpO2 91% BMI 32.28 kg/m? ALLERGIES No Known Allergies ACTIVE PROBLEM LIST Benign Neoplasm of Colon Internal Hemorrhoids Without Mention of Complication External Hemorrhoids Without Mention of Complication Unspecified Constipation Epidermal Cyst Fusion of Spine, Thoracic Region Spinal Stenosis, Lumbar Region, With Neurogenic Claudication Left Buttock Pain Chronic Midline Low Back Pain Without Sciatica Family History Problem Relation Age of Onset - Coronary Artery Disease Mother - Coronary Artery Disease Father - Diabetes Brother - Diabetes Sister Social History Tobacco Use - Smoking status: Current Every Day Smoker Packs/day: 0.50 Years: 20.00 Pack years: 10.00 Types: Cigarettes Last attempt to quit: 03/31/2006 Years since quittin.1 - Smokeless tobacco: Never Used Substance Use Topics - Alcohol use: No - Drug use: No ROS Objective Physical Exam ASSESSMENT/PLAN: 1. SOB (shortness of breath) - ICD9: 786.05, ICD10: R06.02 SOB, Pulse ox of 91% associated with pleuritic CP that feels just like when I had a PE in the past - explained to pt that she requires a higher level of care to adequately evaluate for more concerning causes. Pt expressed understanding and agrees. Pt's niece will drive her over at this time. Montana Hendrix PA-C Referring Provider: SELF [200] Allergies As of Date: 05/05/2021 (No Known Allergies) Date Reviewed: 05/05/2021 Reviewed by: Tiffany Chase MA - Fully Assessed Reason for Visit: Shortness of Breath [227] Cmt: R sided chest discomfort x1 day Primary Visit Diagnosis:SOB (shortness of breath) [R06.02] Prescriptions as of 05/05/2021 - morphine SR (MS CONTIN, ORAMORPH SR) 60 mg 12 hr tablet Take 60 mg by mouth twice daily. - budesonide-formoterol (SYMBICORT) 160-4.5 mcg/actuation inhaler Inhale 2 Puffs as instructed twice daily. - Fenofibric Acid (TRILIPIX) 135 mg CpDR Take by mouth. - aclidinium bromide (TUDORZA PRESSAIR) 400 mcg/actuation AePB Inhale as instructed. - B Complex-Vitamin C-Folic Acid 0.5 mg Tab Take by mouth. - polyethylene glycol 3350(MIRALAX 100 % ORAL POWDER) Take 30ml mixed in 8oz water once daily - NEURONTIN 300 MG CAP Take two capsules three times daily - FOLIC ACID-VIT B6-VIT B12 2.2 MG-25 MG-1 MG TAB Take one(1) tablet daily. Problem List As Of Date 05/05/2021 Noted Resolved BENIGN NEOPLASM LG BOWEL [D12.6] 06/06/2007 INT HEMORRHOID W/O COMPL [K64.8] 06/06/2007 EXT HEMORRHOID W/O COMPL [K64.4] 06/06/2007 CONSTIPATION NOS [K59.00] 06/06/2007 Epidermal cyst [L72.0] 02/03/2013 Midline low back pain without sciatica [M54.50] 03/26/2015 01/30/2016 Fusion of spine, thoracic region [M43.24] 03/26/2015 Spinal stenosis, lumbar region, with neurogenic*04/11/2015 Left buttock pain [M79.18] 07/23/2015 Chronic midline low back pain without sciatica *01/30/2016 Letter Text Encounter Status:Closed by [place] HENDRI[place] on 05/05/21 Normal [place] Bronchoalveolar lavage cultu re with Gram stain Respiratory Culture Haemophilus influenzae [facility] Work Phone: Gram stain for investigation of transfusion reaction Microscopic observation Gram stain Nom (Unsp spec) [facility] Work Phone: No Panel Information SARS-CoV-2 & FLU Antigen (Rapid) [facility] Work Phone: Streptococcus pneumoniae Antigen (M [facility] Work Phone: Vital Signs Date Time Vital Sign Value Performing Clinician Facility 08-24-2022 14:29-0400 Diastolic blood pressure 63 mm[Hg] [facility] 08-24-2022 14:29-0400 Heart rate 68 /min [facility] 08-24-2022 14:29-0400 Respiratory rate 16 /min [facility] 08-24-2022 14:29-0400 SaO2% (BldA) [Mass fraction] 92 % [facility] 08-24-2022 14:29-0400 Systolic blood pressure 98 mm[Hg] [facility] 08-24-2022 12:38-0400 Inhaled oxygen flow rate 6 L/min [facility] 08-24-2022 10:30-0400 Inhaled oxygen concentration 40 % [facility] 08-24-2022 09:14-0400 Body height 172.72 cm [facility] 08-24-2022 09:14-0400 Body mass index (BMI) [Ratio] 39.2 kg/m2 [facility] 08-24-2022 09:14-0400 Body temperature 98.4 [degF] [facility] 08-24-2022 09:14-0400 Body weight 117 kg [facility] 12-04-2021 11:20-0400 Inhaled oxygen flow rate 1 L/min Dr. Matthew Valdivia Work Phone: [facility] Work Phone: 12-04-2021 11:20-0400 SaO2% (BldA) [Mass fraction] 93 % Dr. Matthew Valdivia Work Phone: [facility] Work Phone: 12-04-2021 11:16-0400 Heart rate 69 /min Dr. Matthew Valdivia Work Phone: [facility] Work Phone: 12-04-2021 11:16-0400 Respiratory rate 17 /min Dr. Matthew Valdivia Work Phone: [facility] Work Phone: 12-04-2021 10:40-0400 Body temperature 97.2 [degF] Dr. Matthew Valdivia Work Phone: [facility] Work Phone: 12-04-2021 10:40-0400 Diastolic blood pressure 59 mm[Hg] Dr. Matthew Valdivia Work Phone: [facility] Work Phone: 12-04-2021 10:40-0400 Systolic blood pressure 92 mm[Hg] Dr. Matthew Valdivia Work Phone: [facility] Work Phone: 12-04-2021 09:07-0400 Body height 172.[address] Matthew Valdivia Work Phone: [facility] Work Phone: 12-04-2021 09:07-0400 Body weight [address] Matthew Valdivia Work Phone: [facility] Work Phone: 12-02-2021 06:00-0400 Inhaled oxygen concentration 25 % Dr. Matthew Valdivia Work Phone: [facility] Work Phone: 11-30-2021 23:02-0400 Body mass index (BMI) [Ratio] 35.2 kg/m2 Dr. Matthew Valdivia Work Phone: [facility] Work Phone: 11-30-2021 22:29-0400 Body temperature 99.4 [degF] [facility] Work Phone: 11-30-2021 22:29-0400 Diastolic blood pressure 90 mm[Hg] [facility] Work Phone: 11-30-2021 22:29-0400 Heart rate 103 /min [facility] Work Phone: 11-30-2021 22:29-0400 Respiratory rate 18 /min [facility] Work Phone: 11-30-2021 22:29-0400 SaO2% (BldA) [Mass fraction] 100 % [facility] Work Phone: 11-30-2021 22:29-0400 Systolic blood pressure 145 mm[Hg] [facility] Work Phone: 11-30-2021 22:13-0400 Inhaled oxygen flow rate 8 L/min [facility] Work Phone: 11-30-2021 20:24-0400 Body height 172.72 cm [facility] Work Phone: 11-30-2021 20:24-0400 Body mass index (BMI) [Ratio] 35.6 kg/m2 [facility] Work Phone: 11-30-2021 20:24-0400 Body weight 106.4 kg [facility] Work Phone: Encounters Encounter Date Encounter Type Care Provider Facility Start: 06-29-2024 End: 06-29-2024 ambulatory [facility] Start: 06-21-2024 End: 06-21-2024 ambulatory [facility] Facility:[facility] Start: 05-03-2024 ambulatory [facility] Start: 05-03-2024 End: 05-03-2024 ambulatory [facility] Facility:[facility] Start: 04-18-2024 End: 04-18-2024 ambulatory [facility] Start: 03-29-2024 End: 03-29-2024 ambulatory [facility] Facility:[facility] Start: 03-10-2024 ambulatory [facility] Start: 03-10-2024 End: 03-10-2024 ambulatory [facility] Facility:[facility] Start: 01-21-2024 ambulatory [facility] Start: 01-21-2024 End: 01-24-2024 Evaluation and management of inpatient [facility] Facility:[facility] Start: 11-10-2023 End: 11-10-2023 ambulatory [facility] Facility:[facility] Start: 10-26-2023 End: 10-26-2023 ambulatory [facility] Facility:[facility] Start: 03-25-2023 End: 03-25-2023 ambulatory [facility] Work Phone: Start: 03-25-2023 End: 03-25-2023 Patient encounter procedure [facility]Angel Matt [facility] Start: 08-24-2022 End: 08-24-2022 Emergency department patient visit [facility] Start: 12-04-2021 Non-patient / Non-visit Dr. Ramona Valdivia Work Phone: [facility] Start: 12-03-2021 Non-patient / Non-visit Dr. Ramona Valdivia Work Phone: [facility] Start: 12-03-2021 Non-patient / Non-visit Dr. Ramona Valdivia Work Phone: [facility] Start: 12-02-2021 Non-patient / Non-visit Dr. Ramona polo Shea Work Phone: [facility] Start: 12-02-2021 Non-patient / Non-visit Dr. Ramona polo Shea Work Phone: [facility] Start: 12-01-2021 Non-patient / Non-visit Dr. Ramona Glasgowutzman Work Phone: [facility] Start: 12-01-2021 Non-patient / Non-visit Dr. Ramona polo [employer] Work Phone: [facility] Start: 11-30-2021 End: 12-04-2021 Evaluation and management of inpatient [facility]Intensive Care Unit Procedures Date Procedure Procedure Detail Performing Clinician Start: 08-24-2022 Plain chest X-ray Start: 12-01-2021 Plain chest X-ray Dr. Valarie Valdivia Work Phone: Start: 11-30-2021 Plain chest X-ray Investigation of transfusion reaction Dr. Matthew Valdivia Work Phone: Legionella pneumophi la antigen assay Dr. Matthew Valdivia Work Phone: Refusal of treatment by patient Refusal of care by patient Respiratory microbia l culture Dr. Matthew Valdivia Work Phone: SARS-CoV-2 & FLU Ant igen (Rapid) SARS-CoV-2 & FLU Ant igen (Rapid) Streptococcus pneumo niae Antigen (M Dr. Matthew Valdivia Work Phone: Plan of Treatment Date Care Activity Detail Author Start: 08-24-2022 Continuous pulse oximetry [facility] Start: 08-24-2022 Dual pressure spontaneous ventilation support [facility] Start: 08-24-2022 Blood chemistry [facility] Start: 08-24-2022 Brain natriuretic peptide measurement [facility] Start: 08-24-2022 CT of head without contrast Brain/Head without Contrast [facility] Start: 08-24-2022 Troponin I measurement [facility] Start: 08-24-2022 End: 08-24-2022 [facility] Start: 12-04-2021 Patient discharge [facility] Work Phone: Start: 12-03-2021 Care planning and problem solving actions [facility] Work Phone: Start: 12-01-2021 End: 12-02-2021 [facility] Work Phone: Start: 12-01-2021 Application of intermittent pneumatic compression device [facility] Work Phone: Start: 11-30-2021 Following clinical pathway protocol [facility] Work Phone: Start: 11-30-2021 Aspiration precautions [facility] Work Phone: Start: 11-30-2021 Assessment of risk of venous thromboembolism [facility] Work Phone: Start: 11-30-2021 Consultation [facility] Work Phone: Start: 11-30-2021 Continuous pulse oximetry [facility] Work Phone: Start: 11-30-2021 Elevation of head of bed [facility] Work Phone: Start: 11-30-2021 Fall prevention [facility] Work Phone: Start: 11-30-2021 Incentive spirometry [facility] Work Phone: Start: 11-30-2021 Inhalation therapy procedure [facility] Work Phone: Start: 11-30-2021 Insertion of catheter into peripheral vein [facility] Work Phone: Start: 11-30-2021 Introduction of urinary catheter [facility] Work Phone: Start: 11-30-2021 Measuring intake and output [facility] Work Phone: Start: 11-30-2021 Methicillin resistant Staphylococcus aureus screening test [facility] Work Phone: Start: 11-30-2021 Oxygen therapy [facility] Work Phone: Start: 11-30-2021 Providing care according to standard [facility] Work Phone: Start: 11-30-2021 Provision of activity privileges [facility] Work Phone: Start: 11-30-2021 Referral to occupational therapist [facility] Work Phone: Start: 11-30-2021 Referral to service [facility] Work Phone: Start: 11-30-2021 Vital signs measurements [facility] Work Phone: Start: 11-30-2021 Verification routine [facility] Work Phone: Start: 11-30-2021 Brain natriuretic peptide measurement [facility] Work Phone: Start: 11-30-2021 Dual pressure spontaneous ventilation support [facility] Work Phone: Start: 11-30-2021 Legionella pneumophila Ag [Presence] in Urine [facility] Work Phone: Start: 11-30-2021 Streptococcus pneumoniae antigen assay [facility] Work Phone: Start: 11-30-2021 End: 11-30-2021 [facility] Work Phone: Start: 11-30-2021 Viral nucleic acid assay [facility] Work Phone: Start: 11-30-2021 Admission procedure [facility] Work Phone: Start: 11-30-2021 End: 11-30-2021 Blood culture [facility] Work Phone: Start: 11-30-2021 End: 12-01-2021 [facility] Work Phone: Start: 11-30-2021 Patient referral to dietitian [facility] Work Phone: Alanine aminotransfe rase [Enzymatic activity/volume] in Serum or Plasma [facility] Albumin [Mass/volume ] in Serum or Plasma [facility] Alkaline phosphatase [Enzymatic activity/volume] in Serum or Plasma [facility] Anion gap measurement [facility] Aspartate aminotrans ferase [Enzymatic activity/volume] in Serum or Plasma [facility] Bacteria identified in Blood by Culture Blood Culture [facility] Work Phone: Bilirubin, total measurement [facility] Bilirubin.direct [Mass/volume] in Serum or Plasma [facility] Blood culture [facility] Work Phone: Brain natriuretic pe ptide measurement [facility] Work Phone: BUN/Creatinine ratio [facility] C reactive protein [Mass/volume] in Serum or Plasma [facility] Work Phone: Calcium [Mass/volume ] in Serum or Plasma [facility] Carbon dioxide, tota l [Moles/volume] in Serum or Plasma [facility] Chloride [Moles/volu me] in Serum or Plasma [facility] Creatinine [Moles/vo lume] in Serum or Plasma [facility] Ferritin [Mass/volum e] in Serum or Plasma [facility] Work Phone: Glucose [Mass/volume ] in Serum or Plasma [facility] Hematocrit [Volume F raction] of Blood [facility] Hemoglobin [Mass/vol ume] in Blood [facility] Work Phone: Leukocytes [#/volume ] in Blood [facility] Mean corpuscular hem oglobin concentration determination [facility] Mean corpuscular hem oglobin determination [facility] Measurement of renal function [facility] Neutrophil count [facility] Neutrophil percent differential count [facility] Patient Education ED Pneumonia (Adult) [facility] Work Phone: Patient referral [facility] Work Phone: Platelets [#/volume] in Blood [facility] Potassium [Moles/vol ume] in Serum or Plasma [facility] Red blood cell count [facility] Red cell distributio n width determination [facility] Sodium [Moles/volume ] in Serum or Plasma [facility] Total protein measurement [facility] Urea nitrogen [Mass/ volume] in Serum or Plasma [facility] Immunizations Immunization Date Immunization Notes Care Provider Fa cili 08-27-2020 Covid (Pfizer) [facility] 08-06-2020 Covid (Pfizer) [facility] Payers Date Payer Category Payer Self-pay [id number] 2014 Private Health Insurance [id number] 2006 Medicare [id number] Unknown [id number] 2.16.8 [id number] Unknown [id number] 2.16.8 [id number] Unknown [id number] 2.16.8 [id number] Unknown [id number] 2.16.8 [id number] Unknown [id number] 2.16.8 [id number] Unknown [id number] 2.16.8 [id number] Unknown [id number] 2.16.8 [id number] Unknown [id number] 2.16.8 [id number] Unknown [id number] 2.16.8 [id number] Unknown [id number] 2.16.8 [id number] Unknown [id number] 2.16.8 [id number] Unknown [id number] 2.16.8 [id number] Unknown [id number] 2.16.8 [id number] Unknown [id number] 2.16.8 [id number] Unknown [id number] 2.16.8 [id number] Social History Date Type Detail Facility Start: 11-30-2021 End: 08-24-2022 Tobacco smoking status NHIS Unknown if ever smoked [facility] Start: 03-07-2019 None [facility] Start: 03-07-2019 Spouse/ Signif icant Other [facility] Start: 03-08-2019 Cigarettes [facility] Start: 1950 Sex Assigned At Female W [facility] Goals Date Patient Goal Desired Activity /State Functional Status Date Assessment Result Facility 12-04-2021 Functional status Chair [facility] Work Phone: Mental Status Date Assessment Result Facility 08-24-2022 Cognitive function Level Of Consciousness Drowsy [facility] Work Phone: 12-04-2021 Cognitive function Voice/Name [facility] Work Phone: Discharge summary note 01-24-2024 Note Date & Type Note Facility 01-24-2024 Note [facility] Medical Records Department [address] [place] [address] Discharge Summary 01/24/24 1455 MR#: [id number] Acct: [id number] Name: ISIDOROLINA K Rep #: [id number] : 1950 73 From: Matthew Fields DO PCP: Dr. Matthew Valdivia DO Status:DIS IN Location: ICU ICU02-1 Providers Date of Admission: 01/21/24 Date of Discharge: 01/24/24 Primary Care Physician: Dr. Matthew Valdivia DO Reason For Visit: AMS Diagnosis Discharge Diagnosis (1) Acute respiratory failure with hypoxia and hypercapnia: Status: Acute Code(s): J96.01 - Acute respiratory failure with hypoxia; J96.02 - Acute respiratory failure with hypercapnia Plan 1. Acute metabolic encephalopathy-secondary to combined acute respiratory failure secondary to COPD with exacerbation #2 COPD with acute exacerbation #3 acute kidney injury on a backdrop of chronic kidney disease stage IIIb #4 acute combined respiratory failure secondary to exacerbation of COPD Medications at Discharge Home Medications gemfibrozil 600 mg tablet 600 mg PO BID Check with primary doctor 03/03/19 gabapentin 100 mg capsule 100 mg PO TID 30 days #90 caps 05/09/21 loperamide 2 mg tablet 2 mg PO Q6H PRN Loose Stool 11/30/21 acetaminophen 325 mg capsule 325 mg PO Q6H PRN fever or pain 01/21/24 apixaban 5 mg tablet (Eliquis) 5 mg PO BID 01/21/24 albuterol sulfate 90 mcg/actuation aerosol inhaler 2 puff inhalation Q6H PRN shortness of breath or wheezing #8.5 grams 01/24/24 budesonide-formoterol HFA 80 mcg-4.5 mcg/actuation aerosol inhaler (Breyna) 2 puff inhalation BID #10.2 grams 01/24/24 prednisone 20 mg tablet 40 mg (2 x 20 mg) PO DAILY@0800 #14 tabs 01/24/24 Hospital Course Operations None Procedures None Summary of Care Provided Minutes Spent on Discharge: 31 Hospital Course: This 73-year-old white female presented to the emergency room at [facility] from an assisted living facility due to altered mental status, she had been found to be increasingly lethargic and somnolent. Workup in the emergency room demonstrated significant respiratory acidosis and the patient was placed on BiPAP and admitted to the intensive care unit for acute combined respiratory failure. Patient was placed on bronchodilator treatment and systemic corticosteroids as well as antibiotics, she was able to be weaned off BiPAP and onto nasal cannula oxygen. Patient's creatinine was elevated on admission she was felt to have acute kidney injury, she was started on IV fluids and her creatinine improved during her hospital stay. Patient one-time threatened to leave AGAINST MEDICAL ADVICE but then relented. On 01/24/2024, patient was seen and examined: On examination she appeared in good health and spirits, she does not appear to be in any distress. Vital signs as documented. Skin warm and dry and without overt rashes. Neck without JVD, thyroid appears normal, trachea is midline, neck is supple. Lungs clear, normal air movement was noted. Heart exam notable for regular rhythm, normal sounds and absence of murmurs, rubs or gallops. Abdomen unremarkable and without evidence of organomegaly, masses, or abdominal aortic enlargement, bowel sounds are present in all 4 quadrants, no abdominal tenderness was noted. Extremities nonedematous, no cyanosis was noted, no clubbing was noted. Neuro: Cranial nerves II through XII are grossly intact, no focal motor deficits were noted, sensation to light touch and pinprick is intact, motor exam 5/5 throughout. Psych: Patient is alert and oriented x3, she does not appear anxious or depressed, she does not appear agitated. Patient appeared to be stable for discharge back to assisted living on 01/24/2024, patient required 2 L of oxygen continuously via nasal cannula and this was set up for the patient. Weight / BMI Weight Weight: 117.8 kg Body Mass Index (BMI) 39.3 ABG / Lab / Microbiology Data 01/24/24 02:15 01/24/24 02:15 Laboratory: Laboratory Results - last 24 hr 01/24/24 02:15: WBC 4.7, RBC 3.30 L, Hgb 10.6 L, Hct 34.3 L, MCV 103.9 H, MCH 32.1 H, MCHC 30.9 L, R DW Std Deviation 56.4 H, RDW Coeff of Alverto 15.1 H, Plt Count 139 L, MPV 9.7, Immature Gran % (Auto) 1.100 H, Neut % (Auto) 75.1 H, Lymph % (Auto) 11.7 L, [place] % (Auto) 11.9 H, Eos % (Auto) 0.0, Baso % (Auto) 0.2, Absolute Neuts (auto) 3.5, Absolute Lymphs (auto) 0.55 L, Nucleated RBC % 0.9, Sodium 139, Potassium 4.1, Chloride 108 H, Carbon Dioxide 26.0, Anion Gap 5, BUN 49 H, Creatinine 1.97 H, Estim Creat Clear Calc 34.22, Est GFR (MDRD) Af Amer 32 L, Est GFR (MDRD) Non-Af 26 L, B UN/Creatinine Ratio 24.9 H, Glucose 107 H, Calcium 8.2 L Microbiology: Microbiology 01/21/24 14:04 Mucosa - Nasopharyngeal Respiratory Panel (PCR) - Final 01/21/24 14:04 Mucosa - Nose SARS-CoV-2, Influenza RSV (PCR) - Final Radiography Diagnostic (more content not included)... [facility] Progress note 05-05-2021 Note Date & Type Note Facility 05-05-2021 Note HNO ID: [id number] Author: Montana Hendrix PA-C Service: ? Author Type: Physician Rn Telephonic Type: Progress Notes Filed: 05/05/2021 9:18 PM Note Text: Subjective HPI HPI Lina Chaudhry is a 70 year old female who presents with pleuritic CP that feels just like my previous blood clot. Has a hx of PE. C/o associated SOB. BP 98/58 Pulse 91 Temp 36.6 ?C (97.8 ?F) Resp 16 Wt 90.7 kg (200 lb) SpO2 91% BMI 32.28 kg/m? ALLERGIES No Known Allergies ACTIVE PROBLEM LIST Benign Neoplasm of Colon Internal Hemorrhoids Without Mention of Complication External Hemorrhoids Without Mention of Complication Unspecified Constipation Epidermal Cyst Fusion of Spine, Thoracic Region Spinal Stenosis, Lumbar Region, With Neurogenic Claudication Left Buttock Pain Chronic Midline Low Back Pain Without Sciatica Family History Problem Relation Age of Onset - Coronary Artery Disease Mother - Coronary Artery Disease Father - Diabetes Brother - Diabetes Sister Social History Tobacco Use - Smoking status: Current Every Day Smoker Packs/day: 0.50 Years: 20.00 Pack years: 10.00 Types: Cigarettes Last attempt to quit: 03/31/2006 Years since quittin.1 - Smokeless tobacco: Never Used Substance Use Topics - Alcohol use: No - Drug use: No ROS Objective Physical Exam ASSESSMENT/PLAN: 1. SOB (shortness of breath) - ICD9: 786.05, ICD10: R06.02 SOB, Pulse ox of 91% associated with pleuritic CP that feels just like when I had a PE in the past - explained to pt that she requires a higher level of care to adequately evaluate for more concerning causes. Pt expressed understanding and agrees. Pt's niece will drive her over at this time. Montana Hendrix PA-C [place] Evaluation note Note Date & Type Note Facility Evaluation note Diagnosis Onset Date Generalized weakness acute Hypoxia acute Viral syndrome [facility] Work Phone: Evaluation note Note Date & Type Note Facility Evaluation note Diagnosis Onset Date Acute respiratory failure wi th hypoxia and hypercapnia acute Generalized weakness acute Hypoxia acute Pneumonia due to COVID-19 virus acute Renal failure acute Toxic encephalopathy acute Viral syndrome [facility] Work Phone: Evaluation note Note Date & Type Note Facility Evaluation note No assessment information availa [facility] Work Phone: Summary Purpose Family History No Family History Records Found Relationship Condition Age at Onset Recorded Date/T emery mother Cardiac disease Unknown father Cardiac disease Unknown Advance Directives No Advanced Directives Records Found Advance Directive Response Recorded Date/ Time Advance Directives Yes October 20 4 1:05pm Living Will Yes November 30, 2021 8 :30pm Power of Ruling Machine Set Up Operator Yes November 30, 2021 8:30pm Name of Medical Power of Ruling Machine Set Up Operator ARLYN YANETH November 30, 2021 8:30pm Advance Directive Response Recorded Date/ Time Name of Medical Power of Ruling Machine Set Up Operator Sharita November 30, 2021 11:02pm Advance Directives Yes October 20 1:05pm Living Will Yes November 30, 2021 1 1:02pm Power of Ruling Machine Set Up Operator Yes November 30, 2021 11:02pm Advance Directive Response Recorded Date/ Time Advance Directives Yes October 20 4 1:05pm Living Will No August 24, 2022 9:29am Power of Ruling Machine Set Up Operator No August 24 9:29am Chief Complaint and Reason for Visit Chief Complaint RESPIRATORY FAILURE, ACUTE VIRAL SYNDROME Reason for Visit Generalized weakness Hypoxia Viral syndrome Chief Complaint RESPIRATORY FAILURE, ACUTE VIRAL SYNDROME RESPIRATORY FAILURE, ACUTE VIRAL SYNDROME RESPIRATORY FAILURE, ACUTE VIRAL SYNDROME RESPIRATORY FAILURE, ACUTE VIRAL SYNDROME RESPIRATORY FAILURE, ACUTE VIRAL SYNDROME RESPIRATORY FAILURE, ACUTE VIRAL SYNDROME RESPIRATORY FAILURE, ACUTE VIRAL SYNDROME RESPIRATORY FAILURE, ACUTE VIRAL SYNDROME Reason for Visit Acute respiratory fa ilure with hypoxia and hypercapnia Generalized weakness Hypoxia Pneumonia due to COVID-19 virus Renal failure Toxic encephalopathy Viral syndrome Chief Complaint FALL, LETHARGY Additional Source Comments INFORMATION SOURCE (unrecogn ized section and content) DATE CREATED AUTHOR 08/17/2021 [place] DATE CREATED AUTHOR AUTHOR'S ORGANROVERTO ATION 07/13/2024 [facility] Goals (unrecognized section and content) Goals may be documented in a n alternate sectionGoals may be documented in an alternate sectionGoals may be documented in an alternate section Care Teams (unrecognized sec tion and content) Team Status: Active Member Role Status Dates Dr. Matthew Valdivia DO Family Provider Active Dr. Matthew Valdivia DO Primary Care Provider Active Team Status: Inactive Member Role Status Dates Dr. Matthew Valdivia DO Primary Care Provider Active Dr. Livier Whipple MD Emergency Provider Active Team Status: Inactive Member Role Status Dates Dr. Matthew Valdivia DO Primary Care Prov ider, Attending Provider, Referring Provider Active FOR RECORDS PERTAINING TO PATIENTS WHO ARE OR HAVE BEEN ENROLLED IN A CHEMICAL DEPENDENCY/SUBSTANCEABUSE PROGRAM, SOME INFORMATION MAY BE OMITTED. This clinical summary was aggregated from multiple sources. Caution should be exercised in using it in the provision of clinical care. This summary normalizes information from multiple sources, and as a consequence, information in this document may materially change the coding, format and clinical context of patient data. In addition, data may be omitted in some cases. CLINICAL DECISIONS SHOULD BE BASED ON THE PRIMARY CLINICAL RECORDS. [facility] [employer] [facility]. provides no warranty or guarantee of the accuracy or completeness of information in this document.
--- NOTE | 2024-10-31 22:15 | PCM.HOSP.N ---
Sepsis Attestation Sepsis Alert: Yes Sepsis Attestation: Sepsis Ruled Out Date exam was performed: 10/31/24 Time exam was performed: 19:00
[2024-11-01] VITALS (14 sets, daily range): BP systolic 102–135; BP diastolic 61–79; PULSE 59–90; RESP 14–22; TEMP 36.5–37.4; O2SAT 92–95; BMI 41.9
[2024-11-01] MEDS: Ipratropium/Albuterol Sulfate 3 ML AMPUL.NEB INHALATION ×5 (00:15→19:30)
[2024-11-01 01:19] LABS: Allen Test Positive; Base Excess 2 mmol/L (-2 to +2); Bicarbonate 29.4 mmol/L (22-26); Blood Gas Specimen Type ART; Mode AVAPS; O2 Delivery Device BiPAP; PEEP 10; PIP 23; PO2 71 mmHG (75-100); RR 16; SITE L Radial; SO2 91 % (95-99); Total Carbon Dioxide 31 mmol/L; pCO2 66.6 mmHg (35-45); pH 7.25 (7.35-7.45)
[2024-11-01] MEDS: Acetaminophen 500 MG Tablet 1000 MG PO ×3 (05:28→20:56)
[2024-11-01] MEDS: Gemfibrozil 600 MG Tablet PO ×2 (05:29→16:06)
[2024-11-01 05:38] LABS: Allen Test Positive; Base Excess 5 mmol/L (-2 to +2); Bicarbonate 31.4 mmol/L (22-26); Blood Gas Specimen Type ART; Mode AVAPS; O2 Delivery Device BiPAP; PEEP 10; PIP 28; PO2 79 mmHG (75-100); RR 16; SITE R Radial; SO2 93 % (95-99); Total Carbon Dioxide 34 mmol/L; pCO2 68.3 mmHg (35-45); pH 7.27 (7.35-7.45)
[2024-11-01 05:42] LABS: Absolute Lymphocyte Count 0.33 X10^3/uL (0.83-4.51); Basophil# 0.01 X10^3/uL; Basophil% 0.2 % (0-1); Hematocrit 28.8 % (37-47); Hemoglobin 8.9 g/dL (12.0-15.0); Lymphocyte # 0.33 X10^3/ul (0.83-4.51); Lymphocyte % 7.3 % (19-41); Mean Corp Hgb Conc 30.9 g/dL (32-36); Mean Corpuscular Hgb 31.7 pg (27.0-32.0); Mean Corpuscular Volume 102.5 fL (81-99); Mean Platelet Vol. 10.5 fl (6.2-12.0); Monocyte# 0.13 X10^3/uL; Monocyte% 2.9 % (0-10); NRBC Flagged by Analyzer 0 % (0-5); Neutrophil # 3.99 X10^3/uL (2.7-7.7); Neutrophil % 88.9 % (47-70); POSITIVE DIFFERENTIAL YES; Platelet Count 142 K/mm3 (150-450); RBC Distribution Width CV 14.1 % (11.6-14.6); RBC Distribution Width SD 52.5 fl (35.1-43.9); Red Blood Count 2.81 M/mm3 (4.2-5.4); White Blood Count 4.5 K/mm3 (4.4-11.0)
[2024-11-01 06:22] LABS: ALB/GLOB Ratio 1.1 RATIO (0.9-2.4); AST(SGOT) 13 U/L (<=31); Alanine Aminotransfer ALT/SGPT 6 U/L (<=34); Albumin, Serum 3.2 g/dL (3.4-4.8); Alkaline Phosphatase 58 U/L (35-104); Anion Gap 9 (5-15); BUN 29 mg/dL (4-19); Calcium,Total 8.6 mg/dL (7.6-11.0); Carbon Dioxide 25.3 mmol/L (21.0-32.0); Chloride 104 mmol/L (98-108); Creatinine, Serum 1.61 mg/dL (0.70-1.20); EST Glomerular Filtration Rate 34 (>60); Estimated Creatinine Clearance 40.47 ml/min (50-250); Globulin 2.9 g/dL (2.2-4.2); Glucose 121 mg/dL (70-99); Phosphorus 3.7 mg/dL (2.7-4.5); Protein, Total 6.1 g/dL (5.9-8.4); Sodium Level 138 mmol/L (133-145); Total Bilirubin 0.16 mg/dL (0.00-1.30)
[2024-11-01] MEDS: APIXABAN 5 MG TABLET PO ×2 (10:01→20:56)
[2024-11-01] MEDS: guaiFENesin 1,200 MG Tablet 1200 MG PO ×2 (10:01→20:56)
[2024-11-01] MEDS: Docusate Sodium 100 MG Capsule PO ×2 (10:01→20:55)
[2024-11-01] MEDS: Gabapentin 100 MG Capsule 200 MG PO ×2 (10:02→20:55)
[2024-11-01] MEDS: 0.9% Saline Lock 10 ML Syringe IV ×2 (14:03→20:55)
--- NOTE | 2024-11-01 16:34 | PN_ITS ---
Subjective Subjective Patient seen and examined. She was feeling much better today and felt her breathing had improved. She denied any cough, chest pain, palpitations, nausea, vomiting or any other symptoms. Review of systems is otherwise negative. She is on 4L of oxygen by nasal canula. Objective Data Objective Data Vital Signs: Vital Signs Temp Pulse Resp BP Pulse Ox O2 Del Method O2 Flow Rate 99.4 F H 70 20 H 112/68 93 Nasal Cannula 4 11/01/24 16:00 11/01/24 16:00 11/01/24 16:00 11/01/24 16:00 11/01/24 16:00 11/01/24 16:00 11/01/24 16:06 FiO2 35 11/01/24 02:45 Oxygen Flow Rate (L/min) 4 Oxygen Delivery Method Nasal Cannula Weight: 259 lb 15.999 oz Body Mass Index (BMI) 41.9 Intake & Output: Intake and Output for Last 24 Hours 10/30/24 10/31/24 11/01/24 23:59 23:59 23:59 Intake Total 2371.1 / 2671.1 700 / 700 Balance 2371.1 / 2671.1 700 / 700 Lab / Micro Data 11/01/24 04:42 11/01/24 04:42 Labs: Laboratory Results - last 24 hr 10/31/24 18:23: Troponin T Hi Sens 4Hr 32 H 11/01/24 04:42: WBC 4.5, RBC 2.81 L, Hgb 8.9 L, Hct 28.8 L, MCV 102.5 H, MCH 31.7, MCHC 30.9 L, RDW Std Deviation 52.5 H, RDW Coeff of Alverto 14.1, Plt Count 142 L, MPV 10.5, Immature Gran % (Auto) 0.700, Neut % (Auto) 88.9 H, Lymph % (Auto) 7.3 L, [place] % (Auto) 2.9, Eos % (Auto) 0.0, Baso % (Auto) 0.2, Absolute Neuts (auto) 4.0, Absolute Lymphs (auto) 0.33 L, Nucleated RBC % 0, Sodium 138, Potassium 5.0, Chloride 104, Carbon Dioxide 25.3, Anion Gap 9, BUN 29 H, C reatinine 1.61 H, Estim Creat Clear Calc 40.47 L, Est GFR (MDRD) Non-Af 34 L, BUN/Creatinine Ratio 18.0, Glucose 121 H, Calcium 8.6, Phosphorus 3.7, Magnesium 2.0, Total Bilirubin 0.16, AST 13, ALT 6, Alkaline Phosphatase 58, Total Protein 6.1, Albumin 3.2 L, Globulin 2.9, Albumin/Globulin Ratio 1.1 Micro: Microbiology 10/31/24 20:24 Mucosa - Nasopharyngeal Respiratory Panel (PCR) - Final 10/31/24 13:40 Mucosa - Nose SARS-CoV-2, Influenza & RSV (PCR) - Final ABG Data ABG results: ABG 10/31/24 10/31/24 11/01/24 17:24 21:30 01:14 Specimen Type ART ART ART Sample Site L Radial L Radial L Radial pH 7.18 L* 7.25 L 7.25 L Bicarbonate Actual 28.6 H 34.2 H 29.4 H Total CO2 31 37 31 Base Excess 0 7 H 2 O2 Saturation 82 L 79 L 91 L O2 % 25.0 5.0 35.0 ABG pCO2 76.9 H* 77.3 H* 66.6 H ABG pO2 59 L 53 L 71 L Noman Test Positive Positive Positive Respiration Rate 16 O2 Delivery Device BiPAP Cannula BiPAP Vent Mode Not entered Not entered AVAPS Tidal Volume 500.0 POC PEEP 10 Peak Inspir Pressure 23 Crit Call To/Read Back Yes Yes Blood Gas Notified Whom chichi Stone Blood Gas Notified Time 17:27:12 21:33:07 11/01/24 05:34 Specimen Type ART Sample Site R Radial pH 7.27 L Bicarbonate Actual 31.4 H Total CO2 34 Base Excess 5 H O2 Saturation 93 L O2 % 35.0 ABG pCO2 68.3 H* ABG pO2 79 Noman Test Positive Respiration Rate 16 O2 Delivery Device BiPAP Vent Mode AVAPS Tidal Volume 500.0 POC PEEP 10 Peak Inspir Pressure 28 Crit Call To/Read Back Yes Blood Gas Notified Whom DR JONES Blood Gas Notified Time 05:36:18 Radiography Diagnostic Testing: Radiology Impression Echocardiogram 10/31/24 20:01 Interpretation Summary The study was technically difficult. Mild concentric left ventricular hypertrophy. The LV systolic function is normal. EF is 65 %. Stage 1 diastolic dysfunction. The left atrium is severely enlarged. Right ventricular systolic pressure estimated to be 47 mmHg. Aortic sclerosis, no stenosis. Mildly dilated aortic root. Ordering Physician: Zhane Stone Performed By: Eladio Ho RCS Physical Exam Const alert, oriented x3 and no apparent distress Constitutional Narrative: class III obesity General Appearance: cooperative HEENT normocephalic, head/scalp atraumatic and moist oral mucous membranes Eyes PERRL and EOMs intact bilaterally Neck no lymphadenopathy and supple Lymph Lymphatic: no lymphedema noted Resp normal respiratory effort, normal air movement and clear to auscultation bilaterally Cardio regular rate, regular rhythm, S1 normal heart sound, S2 normal heart sound and no murmurs GI normal to inspection, nondistended, normoactive bowel sounds, soft to palpation, non-tender and non-distended Extremity normal capillary refill, no clubbing, cyanosis or edema and no calf tenderness General Extremity: no tenderness to palpation of joints or extremities Skin General Skin Exam: no breakdown Neuro CN's II-XII intact bilaterally and no focal motor deficits Motor Exam: general weakness Psych thought process normal and cooperative Appearance: appropriate Assessment & Plan Assessment/Plan (1) CHF (congestive heart failure): (2) Elevated troponin: (3) Acute respiratory failure with hypoxia and hypercapnia: PLAN: Plan #Acute hypoxic and hypercapnic respiratory failure due to acute exacerbation of COPD * now on 4L of oxygen. * on breathing treatment with bronchodilators. Titrate oxygen to maintain sats >90% * on Iv solumedrol 40mg q8 * 2D echo shwoed EF of 65% with mild concentric LVH and stage I diastolic dysfunction; left atrium is severely enlarged. RVSP is 47mmHg. #Elevated troponin: #Acute metabolic encephalopathy: * thought to be due to demand ischemia from hypoxia. * Her BNP was elevated though. Resolved. Now alert and communicative. #CKD IIIb: Cr is 1.61. was 1.71 on admission> Baseline Cr is ~ 1.7. #Bilateral carotid artery disease * imagine showed mild right ICA and moderate left ICA. * to follow up with vascular surgery on outpatient basis * #History of PE: on eliquis #Chronic thrombocytopenia: * platelets are 142 today. * Was 156 yesterday, though she has had occasional thrombocytopenia. Will monitor closely. #Hyperlipidemia: on gemfibrozil #History of peripheral neuropathy: on gabapentin #DVT prophylaxis: on eliquis Charges/Coding Visit Charges Inpatient E&M: 05138 Subs Hosp L2
[2024-11-01] MEDS: Menthol/Lanolin/Calamine/Znox 113 GM Tube 1 APPLIC TOPICAL (20:56)
[2024-11-01] MEDS: Nystatin Powder 15gm Bottle 1 APPLIC TOPICAL (20:57)
[2024-11-01] MEDS: MELATONIN 3 MG TABLET PO (23:47)
[2024-11-02] VITALS (13 sets, daily range): BP systolic 109–156; BP diastolic 68–88; PULSE 56–86; RESP 16–20; TEMP 36.7–37.1; O2SAT 87–98; BMI 41.2
[2024-11-02] MEDS: Ipratropium/Albuterol Sulfate 3 ML AMPUL.NEB INHALATION ×6 (00:49→23:55)
[2024-11-02 05:49] LABS: Absolute Lymphocyte Count 0.34 X10^3/uL (0.83-4.51); Hematocrit 29.3 % (37-47); Hemoglobin 9.2 g/dL (12.0-15.0); Lymphocyte # 0.34 X10^3/ul (0.83-4.51); Lymphocyte % 7.4 % (19-41); Mean Corp Hgb Conc 31.4 g/dL (32-36); Mean Corpuscular Hgb 31.9 pg (27.0-32.0); Mean Corpuscular Volume 101.7 fL (81-99); Mean Platelet Vol. 10.8 fl (6.2-12.0); Monocyte# 0.22 X10^3/uL; Monocyte% 4.8 % (0-10); NRBC Flagged by Analyzer 0 % (0-5); Neutrophil # 3.98 X10^3/uL (2.7-7.7); Neutrophil % 86.9 % (47-70); POSITIVE DIFFERENTIAL YES; Platelet Count 162 K/mm3 (150-450); RBC Distribution Width SD 51.2 fl (35.1-43.9); Red Blood Count 2.88 M/mm3 (4.2-5.4); White Blood Count 4.6 K/mm3 (4.4-11.0)
[2024-11-02] MEDS: Acetaminophen 500 MG Tablet 1000 MG PO ×3 (06:11→22:39)
[2024-11-02] MEDS: Gemfibrozil 600 MG Tablet PO ×2 (06:12→17:25)
[2024-11-02] MEDS: 0.9% Saline Lock 10 ML Syringe IV ×3 (06:12→22:39)
[2024-11-02 06:22] LABS: Anion Gap 11 (5-15); BUN 36 mg/dL (4-19); BUN/Creat Ratio 21.9 RATIO (10-20); Calcium,Total 8.5 mg/dL (7.6-11.0); Carbon Dioxide 25.5 mmol/L (21.0-32.0); Chloride 104 mmol/L (98-108); Creatinine, Serum 1.65 mg/dL (0.70-1.20); EST Glomerular Filtration Rate 33 (>60); Estimated Creatinine Clearance 39.26 ml/min (50-250); Glucose 131 mg/dL (70-99); Potassium 4.9 mmol/L (3.3-5.1); Sodium Level 141 mmol/L (133-145)
--- NOTE | 2024-11-02 08:06 | CASEMGMT ---
Addendum entered by Yohana Alvares 11/02/24 08:24: Fax confirmation rec'd. Yohana Alvares DC Planning Asst. Original Note: Discharge Planning Updates faxed to Jackie @ [place]. Asked for confirmation of current O2 order and where she gets it from. Awaiting response. Yohana Alvares DC Planning Asst.
[2024-11-02] MEDS: APIXABAN 5 MG TABLET PO ×2 (10:03→22:39)
[2024-11-02] MEDS: Menthol/Lanolin/Calamine/Znox 113 GM Tube 1 APPLIC TOPICAL ×2 (10:03→22:41)
[2024-11-02] MEDS: Gabapentin 100 MG Capsule 200 MG PO ×2 (10:03→22:38)
[2024-11-02] MEDS: guaiFENesin 1,200 MG Tablet 1200 MG PO ×2 (10:03→22:39)
[2024-11-02] MEDS: Nystatin Powder 15gm Bottle 1 APPLIC TOPICAL ×2 (10:04→22:40)
--- NOTE | 2024-11-02 11:38 | CASEMGMT ---
Addendum entered by Cheryl Zaragoza 11/02/24 12:41: [facility] has accepted patient. SW will notify patient. Cheryl TORRES Original Note: SW spoke with patient and she is aware she may return to [place] today. SW asked patient about transportation back and she said family will transport her. SW asked patient if she would like therapy at [place]. Patient said she would as long as her insurance pays for it. SW told patient it does. SW called [facility] and made a referral as this is who [place] utilizes. They will review referral. Cheryl TORRES
--- NOTE | 2024-11-02 16:27 | PN_ITS ---
Subjective Subjective Patient seen and examined. She had no complaints and was on 3 L of oxygen today. Says she was feeling better. Patient tells me that she does not wear any oxygen at home during the day. However according to case management it does appear that patient is post to be wearing 2 L continuous oxygen. Review systems otherwise negative. Objective Data Objective Data Vital Signs: Vital Signs Temp Pulse Resp BP Pulse Ox O2 Del Method O2 Flow Rate 98.1 F 69 18 109/68 93 Nasal Cannula 2 11/02/24 10:15 11/02/24 11:40 11/02/24 11:40 11/02/24 10:15 11/02/24 14:03 11/02/24 14:03 11/02/24 14:03 FiO2 35 11/02/24 03:55 Oxygen Flow Rate (L/min) 2 Oxygen Delivery Method Nasal Cannula Weight: 255 lb 4.725 oz Body Mass Index (BMI) 41.2 Intake & Output: Intake and Output for Last 24 Hours 10/31/24 11/01/24 11/02/24 23:59 23:59 23:59 Intake Total 2371.1 / 2671.1 1300 / 1300 520 / 520 Output Total 500 / 500 Balance 2371.1 / 2671.1 1300 / 1300 20 / 20 Lab / Micro Data 11/02/24 04:40 11/02/24 04:40 Labs: Laboratory Results - last 24 hr 11/02/24 04:40: WBC 4.6, RBC 2.88 L, Hgb 9.2 L, Hct 29.3 L, MCV 101.7 H, MCH 31.9, MCHC 31.4 L, RDW Std Deviation 51.2 H, RDW Coeff of Alverto 14.0, Plt Count 162, MPV 10.8, Immature Gran % (Auto) 0.900, Neut % (Auto) 86.9 H, Lymph % (Auto) 7.4 L, [place] % (Auto) 4.8, Eos % (Auto) 0.0, Baso % (Auto) 0.0, Absolute Neuts (auto) 4.0, Absolute Lymphs (auto) 0.34 L, Nucleated RBC % 0, Sodium 141, Potassium 4.9, Chloride 104, Carbon Dioxide 25.5, Anion Gap 11, BUN 36 H, C reatinine 1.65 H, Estim Creat Clear Calc 39.26 L, Est GFR (MDRD) Non-Af 33 L, B UN/Creatinine Ratio 21.9 H, Glucose 131 H, Calcium 8.5 Micro: Microbiology 10/31/24 13:55 Blood Culture (Wb) - Venous Blood Culture - Preliminary No growth in 48 hours. 10/31/24 13:30 Blood Culture (Wb) - Venous Blood Culture - Preliminary No growth in 48 hours. 10/31/24 14:55 Urine, Clean Catch Urine Culture - Final Mixed Gram Positive Organisms 10/31/24 20:24 Mucosa - Nasopharyngeal Respiratory Panel (PCR) - Final 10/31/24 13:40 Mucosa - Nose SARS-CoV-2, Influenza & RSV (PCR) - Final Physical Exam Const alert, oriented x3, no apparent distress and well nourished; Negative for average body habitus or healthy appearing Constitutional Narrative: class III obesity General Appearance: cooperative HEENT normocephalic, head/scalp atraumatic, hearing grossly normal bilaterally and moist oral mucous membranes Eyes EOMs intact bilaterally and conjunctivae normal Eyes Narrative: No scleral icterus Neck no lymphadenopathy and supple Lymph Lymphatic: no lymphedema noted Resp Resp Narrative: mildly diminished breath sounds bibasally, no wheezes or crackles. On 2L of oxygen by nasal canula. Cardio regular rate, regular rhythm, S1 normal heart sound, S2 normal heart sound and no murmurs GI normal to inspection, nondistended, normoactive bowel sounds, soft to palpation, non-tender and non-distended GI Narrative: obese abdomen Extremity normal capillary refill Extremity Narrative: Trace bilateral lower extremity pitting edema, no clubbing or cyanosis noted General Extremity: no tenderness to palpation of joints or extremities Skin Skin Narrative: No significant wounds, bilateral lower extremities are consistent with chronic venous stasis changes in the skin Neuro CN's II-XII intact bilaterally and no focal motor deficits Neuro Narrative: Spontaneously moves all 4 extremities Motor Exam: general weakness Psych thought process normal and cooperative Appearance: appropriate Assessment & Plan Assessment/Plan (1) CHF (congestive heart failure): (2) Elevated troponin: (3) Acute respiratory failure with hypoxia and hypercapnia: PLAN: Plan #Acute hypoxic and hypercapnic respiratory failure due to acute exacerbation of COPD * now on 2L of oxygen. * on breathing treatment with bronchodilators. Titrate oxygen to maintain sats >90% * on Iv solumedrol 40mg q8 * 2D echo showed EF of 65% with mild concentric LVH and stage I diastolic dysfunction; left atrium is severely enlarged. RVSP is 47mmHg. #Elevated troponin: #Acute metabolic encephalopathy: * thought to be due to demand ischemia from hypoxia. * Her BNP was elevated though. Resolved. Now alert and communicative. #CKD IIIb: Cr is 1.65. was 1.71 on admission> Baseline Cr is ~ 1.7. #Bilateral carotid artery disease * imagine showed mild right ICA and moderate left ICA. * to follow up with vascular surgery on outpatient basis * #History of PE: on eliquis #Chronic thrombocytopenia: * have improved to 162 today. Will monitor. #Hyperlipidemia: on gemfibrozil #History of peripheral neuropathy: on gabapentin #DVT prophylaxis: on eliquis Disposition; anticipate dc over the next 24 hours. Charges/Coding Visit Charges Inpatient E&M: 64813 Subs Hosp L2
[2024-11-02] MEDS: MELATONIN 3 MG TABLET PO (22:38)
[2024-11-02] MEDS: Docusate Sodium 100 MG Capsule PO (22:40)
[2024-11-03] VITALS (8 sets, daily range): BP systolic 124–153; BP diastolic 65–86; PULSE 59–102; RESP 16–18; TEMP 36.5–36.9; O2SAT 86–96; BMI 41.3
[2024-11-03] MEDS: Ipratropium/Albuterol Sulfate 3 ML AMPUL.NEB INHALATION ×2 (03:20→08:06)
[2024-11-03] MEDS: Acetaminophen 500 MG Tablet 1000 MG PO (06:01)
[2024-11-03] MEDS: 0.9% Saline Lock 10 ML Syringe IV (06:01)
[2024-11-03] MEDS: Gemfibrozil 600 MG Tablet PO (06:02)
[2024-11-03 06:52] LABS: Absolute Lymphocyte Count 0.32 X10^3/uL (0.83-4.51); Absolute Neutrophil Count 4.1 X10^3/uL (2.0-7.7); Hematocrit 32.4 % (37-47); Hemoglobin 10.3 g/dL (12.0-15.0); Lymphocyte # 0.32 X10^3/ul (0.83-4.51); Lymphocyte % 6.9 % (19-41); Mean Corp Hgb Conc 31.8 g/dL (32-36); Mean Corpuscular Hgb 31.9 pg (27.0-32.0); Mean Corpuscular Volume 100.3 fL (81-99); Mean Platelet Vol. 10.6 fl (6.2-12.0); Monocyte# 0.18 X10^3/uL; Monocyte% 3.9 % (0-10); NRBC Flagged by Analyzer 0 % (0-5); Neutrophil # 4.13 X10^3/uL (2.7-7.7); Neutrophil % 88.3 % (47-70); POSITIVE DIFFERENTIAL YES; Platelet Count 183 K/mm3 (150-450); RBC Distribution Width CV 14.3 % (11.6-14.6); RBC Distribution Width SD 51.2 fl (35.1-43.9); Red Blood Count 3.23 M/mm3 (4.2-5.4); White Blood Count 4.7 K/mm3 (4.4-11.0)
[2024-11-03 07:36] LABS: Anion Gap 12 (5-15); BUN 36 mg/dL (4-19); BUN/Creat Ratio 21.9 RATIO (10-20); Calcium,Total 9.3 mg/dL (7.6-11.0); Carbon Dioxide 27.4 mmol/L (21.0-32.0); Chloride 102 mmol/L (98-108); Creatinine, Serum 1.63 mg/dL (0.70-1.20); EST Glomerular Filtration Rate 33 (>60); Estimated Creatinine Clearance 39.78 ml/min (50-250); Glucose 118 mg/dL (70-99); Potassium 4.5 mmol/L (3.3-5.1); Sodium Level 142 mmol/L (133-145)
[2024-11-03] MEDS: Menthol/Lanolin/Calamine/Znox 113 GM Tube 1 APPLIC TOPICAL (10:05)
[2024-11-03] MEDS: predniSONE 20 MG Tablet 40 MG PO (10:05)
[2024-11-03] MEDS: Nystatin Powder 15gm Bottle 1 APPLIC TOPICAL (10:05)
[2024-11-03] MEDS: Gabapentin 100 MG Capsule 200 MG PO (10:06)
[2024-11-03] MEDS: Docusate Sodium 100 MG Capsule PO (10:06)
[2024-11-03] MEDS: guaiFENesin 1,200 MG Tablet 1200 MG PO (10:06)
[2024-11-03] MEDS: APIXABAN 5 MG TABLET PO (10:06)
--- NOTE | 2024-11-03 11:29 | DCINST_ITS ---
Discharge Instructions Diet Discharge Diet: No restrictions DC O2, CPAP, BIPAP needs Home O2 Discharge instructions: No Dressing / Incision Discharge Activity: Return to Normal Activity Dressing / Incision Call your doctor if you observe: Fever of 101 or Higher, Shortness of breath, Dizziness, Fainting spells, Swelling in the ankles, Chest pain and Increased palpitations (irregular heartbeat) Follow Up Care Test Results: Test results from this visit will be discussed in further detail at your follow- up appointment, if applicable. Discharge Plan Admission Admit Date/Time: 10/31/24 18:12 Attending Provider: Teja Zeng Primary Care Provider: Matthew Valdivia Consulting Providers: Zhane Stone; Laura Sol Discharge Orders/Prescriptions Prescriptions: New prednisone 10 mg tablet 10 mg PO DAILY Qty: 20 0RF Rx Instructions: 3 tablets daily for 3 days then 2 tablets daily for 3 days then 1 tablet daily for 3 days then half tablet daily for 4 days Continued gemfibrozil 600 MG tablet 600 mg PO BID Eliquis 5 mg tablet 5 mg PO BID sulfamethoxazole-trimethoprim 400-80 mg tablet 1 tab PO BID gabapentin 100 mg capsule 200 mg PO BID docusate sodium [Col-Rite] 100 mg capsule 100 mg PO BID Referrals / Follow Up: Matthew Valdivia DO [Primary Care Provider] - Within 1 Week Disposition Disposition (needs filled in before D/C Order can be placed): Assisted Living
--- NOTE | 2024-11-03 11:47 | CASEMGMT ---
Discharge Planning Discharge instructions faxed to [facility] and directly to [facility]. Phone number given to nursing for report. Fax confirmations [email or web address]'bethany. Yohana Alvares DC Planning Asst.
--- NOTE | 2024-11-03 17:35 | PCM.DC.SUM ---
Providers Date of Admission: 10/31/24 Primary Care Physician: Dr. Matthew Valdivia, DO Reason For Visit: ACUTE ON CHRONIC HYPOXIC & HYPERCAPNIC RESPIRATORY Diagnosis Discharge Diagnosis (1) Elevated troponin: Status: Acute Code(s): R79.89 - Other specified abnormal findings of blood chemistry (2) Acute respiratory failure with hypoxia and hypercapnia: Status: Acute Code(s): J96.01 - Acute respiratory failure with hypoxia; J96.02 - Acute respiratory failure with hypercapnia Medications at Discharge Home Medications gemfibrozil 600 mg tablet 600 mg PO BID cholesteol 03/03/19 apixaban 5 mg tablet (Eliquis) 5 mg PO BID blood thinner 01/21/24 docusate sodium 100 mg capsule (Col-Rite) 100 mg PO BID stool softner 10/31/24 gabapentin 100 mg capsule 200 mg PO BID nerve pain 10/31/24 sulfamethoxazole 400 mg-trimethoprim 80 mg tablet 1 tab PO BID infection 10/31/24 prednisone 10 mg tablet 10 mg PO DAILY #20 tabs 11/03/24 Hospital Course Operations None Procedures 2-D Echocardiogram Summary of Care Provided Minutes Spent on Discharge: 31 Hospital Course: Per HPI: DESIRE CHAUDHRY, is a 73 F who presented to the emergency department at [facility] on 10/31/2024 with a chief complaint of shortness of breath. Patient told the emergency department that she went to bed last night and felt well and then got up early this morning and felt weak when she tried to get up off the toilet but was ultimately able to do so and then went back downstairs to lay down on the couch. At that time she put her oxygen on. She is supposed to wear 2 L at night however family reported that she is intermittently compliant with everything and, does what she wants. Family noticed that she looked blue at the time they visited. She reported she been compliant with all of her medicines lately however again family does report she is intermittently compliant. Patient was fairly sleepy at the time of my evaluation and was on BiPAP so is unable to obtain any further history from her at the time of my evaluation in the time of admission. Vital signs on presentation showed temperature of 97.6, heart rate 61, respiratory rate 20, blood pressure was 94/75 and pulse ox was 69% on room air. She improved to 98% on 3 L nasal cannula but remained labored so she was placed on BiPAP. CBC shows no leukocytosis. She has a chronic stable anemia with a hemoglobin of 10.0. She has a slight left shift which she does appear to have fairly chronically. Coags are slightly elevated which is to be suspected due to her Eliquis use at baseline. Chemistry panel shows stable CKD with normal electrolytes, glucose of 112 a lactic acid of less than 1 and normal LFTs. Her initial troponin was 35 with a delta of 30 and a 4-hour troponin of 32. Her proBNP is a bit elevated at 1111. COVID/flu/RSV is unremarkable. Blood and urine cultures were obtained in emergency department but are pending at the time of admission. Respiratory viral panel is pending. Chest x-ray shows prominent lung markings bilaterally, small bilateral pleural effusions with cardiac enlargement but no other acute findings. Patient has a significant severe kyphosis and restrictive lung disease related to her kyphosis and instrumentation for fixation. Hospital Course: 1. Acute hypoxic and hypercapnic respiratory failure secondary to COPD exacerbation with acute metabolic encephalopathy?73-year-old female presented to the hospital with hypoxia and hypercapnia. She needed to be on BiPAP given her labored breathing and her elevated pCO2 68 on ABG. She did have subsequent improvement and is currently on 2 L nasal cannula with activity and at night. There is some question of a possible CHF exacerbation however echocardiogram had an EF of 65% with stage I diastolic dysfunction and RVSP of 47 mmHg. She has not been on Lasix in the last 24 hours with continued improvement and does not take Lasix at home. Will continue with the steroid taper on discharge. I do recommend that she follow-up with her PCP in 3 to 5 days and potentially be referred for pulmonary function testing and if necessary establish with a sprinkler tender depending on his pulmonary function tests. Of note she did have an elevated troponin which was insignificant secondary to her hypoxia did not need further workup 2. CKD 3, history of pulmonary embolism with chronic thrombocytopenia, hyperlipidemia, peripheral neuropathy all chronic medical conditions which complicate her care. Her home medications were continued where appropriate Physical Exam Narrative General: Alert, Oriented x3, Cooperative, No apparent distress HEENT: Atraumatic, PERRLA, EOMI, Normocephalic Oral: Moist Mucosa Neck: Supple, No JVD Lungs: Diminished, Normal air movement, No rhonchi, No wheeze, No rales Cardiovascular: Regular rate, Regular Rhythm, Normal S1, Normal S2, No murmurs Abdomen: Soft, Non Tender, Non-Distended, No Hepato-splenomegaly Extremities: No edema, Capillary Refill Less than 3 Seconds Skin: No rashes, No breakdown Musculoskeletal: No Tenderness to Palpation of Joints or Extremities Neurological: No focal neurological deficits, Motor Exam 5/5 strength throughout, Sensory exam intact to light touch and pain Psych/Mental Status: Normal Affect, Appropriate Weight / BMI Weight Weight: 255 lb 11.779 oz Body Mass Index (BMI) 41.3 ABG / Lab / Microbiology Data 11/03/24 06:10 11/03/24 06:10 Laboratory: Laboratory Results - last 24 hr 11/03/24 06:10: WBC 4.7, RBC 3.23 L, Hgb 10.3 L, Hct 32.4 L, MCV 100.3 H, MCH 31.9, MCHC 31.8 L, RDW Std Deviation 51.2 H, RDW Coeff of Alverto 14.3, Plt Count 183, MPV 10.6, Immature Gran % (Auto) 0.900, Neut % (Auto) 88.3 H, Lymph % (Auto) 6.9 L, [place] % (Auto) 3.9, Eos % (Auto) 0.0, Baso % (Auto) 0.0, Absolute Neuts (auto) 4.1, Absolute Lymphs (auto) 0.32 L, Nucleated RBC % 0, Sodium 142, Potassium 4.5, Chloride 102, Carbon Dioxide 27.4, Anion Gap 12, BUN 36 H, Creatinine 1.63 H, Estim Creat Clear Calc 39.78 L, Est GFR (MDRD) Non-Af 33 L, BUN/Creatinine Ratio 21.9 H, Glucose 118 H, Calcium 9.3 Microbiology: Microbiology 10/31/24 13:55 Blood Culture (Wb) - Venous Blood Culture - Preliminary No growth in 48 hours. 10/31/24 13:30 Blood Culture (Wb) - Venous Blood Culture - Preliminary No growth in 48 hours. 10/31/24 14:55 Urine, Clean Catch Urine Culture - Final Mixed Gram Positive Organisms 10/31/24 20:24 Mucosa - Nasopharyngeal Respiratory Panel (PCR) - Final 10/31/24 13:40 Mucosa - Nose SARS-CoV-2, Influenza & RSV (PCR) - Final D/C Instructions Discharge Diet: No restrictions Call your doctor if you observe: Fever of 101 or Higher, Shortness of breath, Dizziness, Fainting spells, Swelling in the ankles, Chest pain and Increased palpitations (irregular heartbeat) DC O2, CPAP, BIPAP Needs Home O2 Discharge instructions: No Meaningful Use Info Meaningful Use Meaningful Use Diagnoses (Choose all that apply): None applicable Ischemic Stroke Statin Dosing Therapy Reference: STATIN DOSE THERAPY REFERENCE: * Patients > 75 years receive moderate or high dose statin therapy. * Patients 75 years or YOUNGER should receive HIGH intensity statin dose unless contraindicated. You will be required to document reason for non-treatment if statin daily dose does not meet guidelines. HIGH DOSE STATIN THERAPY DAILY Atorvastatin > than or = to 40 mg Rosuvastatin > than or = to 20 mg Amlodipine + Atorvastatin > than or = to 2.5/40 mg Ezetimibe + Simvastatin 10/80 mg Simvastatin 80mg Discharge Plan Admission Admit Date/Time: 10/31/24 18:12 Attending Provider: Teja Zeng Primary Care Provider: Matthew Valdivia Consulting Providers: Zhane Stone; Laura Sol Discharge Orders/Prescriptions Prescriptions: New prednisone 10 mg tablet 10 mg PO DAILY Qty: 20 0RF Rx Instructions: 3 tablets daily for 3 days then 2 tablets daily for 3 days then 1 tablet daily for 3 days then half tablet daily for 4 days Continued gemfibrozil 600 MG tablet 600 mg PO BID Eliquis 5 mg tablet 5 mg PO BID sulfamethoxazole-trimethoprim 400-80 mg tablet 1 tab PO BID gabapentin 100 mg capsule 200 mg PO BID docusate sodium [Col-Rite] 100 mg capsule 100 mg PO BID Referrals / Follow Up: Matthew Valdivia DO [Primary Care Provider] - Within 1 Week Disposition Disposition (needs filled in before D/C Order can be placed): Assisted Living Charges/Coding Visit Charges Inpatient E&M: 16202 Disch Hosp >30min
== END 2024-11-03 13:01 | disposition home or self-care (01) | DRG 189 ==
LOC: ED 17:44 → PCU 18:21
PROVIDERS: Student in an Organized Health Care Education/Training Program; Admitting Provider Internal Medicine; Emergency Provider Emergency Medicine; PCP Family Medicine; Visit Provider Family Medicine
DX: J96.02 Acute respiratory failure with hypercapnia (principal); G93.41 Metabolic encephalopathy; I13.0 Hypertensive heart and chronic kidney disease with heart failure and stage 1 through stage 4 chronic kidney disease, or unspecified chronic kidney disease; Z68.41 Body mass index [BMI] 40.0-44.9, adult; J44.1 Chronic obstructive pulmonary disease with (acute) exacerbation; I24.89 Other forms of acute ischemic heart disease; I50.30 Unspecified diastolic (congestive) heart failure; Z66 Do not resuscitate; N18.32 Chronic kidney disease, stage 3b; I65.23 Occlusion and stenosis of bilateral carotid arteries; D53.9 Nutritional anemia, unspecified; J96.01 Acute respiratory failure with hypoxia; J43.9 Emphysema, unspecified; E78.5 Hyperlipidemia, unspecified; I89.0 Lymphedema, not elsewhere classified; I87.2 Venous insufficiency (chronic) (peripheral); G62.9 Polyneuropathy, unspecified; Z11.52 Encounter for screening for COVID-19; T41.5X6A Underdosing of therapeutic gases, initial encounter; Z91.148 Patient's other noncompliance with medication regimen for other reason; E66.813 Obesity, class 3; G89.29 Other chronic pain; Z79.01 Long term (current) use of anticoagulants; Z79.899 Other long term (current) drug therapy; Z87.891 Personal history of nicotine dependence; Z86.711 Personal history of pulmonary embolism; Z86.73 Personal history of transient ischemic attack (TIA), and cerebral infarction without residual deficits
CPT/HCPCS: 36415; 36600; 71046; 80048; 80053; 81001; 82803; 83605; 83735; 83880; 84100; 84484; 85025; 85610; 85730; 87040; 87086; 87088; 87631; 87633; 93005; 93306; 94002; 94003; 94640; 94668; 94762; 97116; 97161; 97165; 97802; 99284; Q9957; A4216; C8929; J0696; J1938

== ENCOUNTER 2025-01-05 09:50 | Inpatient (IN) | payer MEDICARE, OTHER, SELFPAY ==
[2025-01-05] VITALS (19 sets, daily range): BP systolic 111–153; BP diastolic 46–73; PULSE 63–100; RESP 10–24; TEMP 36–37.1; O2SAT 2–100; BMI 42.5; BMI 40.5
--- NOTE | 2025-01-05 10:08 | EKG12_ITS ---
Test Reason : AFIB RVR Blood Pressure : */* mmHG Vent. Rate : 144 BPM Atrial Rate : * BPM P-R Int : * ms QRS Dur : 190 ms QT Int : 330 ms P-R-T Axes : * 2 135 degrees QTcB Int : 510 ms Critical Test Result: High HR , Arrhythmia Atrial fibrillation with rapid ventricular response Non-specific intra-ventricular conduction block Minimal voltage criteria for LVH, may be normal variant ( [place] product ) Anterolateral infarct , age undetermined Abnormal ECG When compared with ECG of 05-Jan-2025 10:15, MANUAL COMPARISON REQUIRED DATA IS UNCONFIRMED Confirmed by URIEL ROMERO, TANA ([id number]), editor farm journal CRISTINA ROCK ([id number]) on 01/08/2025 1:02:22 PM Referred By: Confirmed By: TANA TREVINO MD
--- NOTE | 2025-01-05 10:08 | EKG12_ITS ---
Test Reason : AFIB RVR Blood Pressure : */* mmHG Vent. Rate : 144 BPM Atrial Rate : * BPM P-R Int : * ms QRS Dur : 190 ms QT Int : 330 ms P-R-T Axes : * 2 135 degrees QTcB Int : 510 ms Critical Test Result: High HR , Arrhythmia Atrial fibrillation with rapid ventricular response Non-specific intra-ventricular conduction block Minimal voltage criteria for LVH, may be normal variant ( [place] product ) Anterolateral infarct , age undetermined Abnormal ECG When compared with ECG of 05-Jan-2025 10:15, MANUAL COMPARISON REQUIRED DATA IS UNCONFIRMED Confirmed by URIEL ROMERO, TANA ([id number]), pictures editor CRISTINA ROCK ([id number]) on 01/08/2025 1:02:22 PM Referred By: Confirmed By: TANA TREVINO MD
--- NOTE | 2025-01-05 10:09 | RAD_ITS ---
PROCEDURE: CHEST PA AND LATERAL 01/05/2025 REASON FOR EXAM: CHEST PAIN TECHNIQUE: CHEST PA AND LATERAL COMPARISON: October 31, 2024 FINDINGS: Hardware: Posterior fusion of the thoracic spine with pedicle screws and rods. EKG leads. Heart: Enlarged. Mediastinum: Atherosclerosis of the thoracic aorta. Lungs: Interstitial and alveolar edema with scant pleural fluid and subsegmental atelectasis. Bones: Degenerative changes are identified within the thoracic spine. RAD/Chest PA and Lateral IMPRESSION: Cardiac enlargement. Interstitial and alveolar edema. Reading Location: [id number]
--- NOTE | 2025-01-05 10:09 | RAD_ITS ---
PROCEDURE: CHEST PA AND LATERAL 01/05/2025 REASON FOR EXAM: CHEST PAIN TECHNIQUE: CHEST PA AND LATERAL COMPARISON: October 31, 2024 FINDINGS: Hardware: Posterior fusion of the thoracic spine with pedicle screws and rods. EKG leads. Heart: Enlarged. Mediastinum: Atherosclerosis of the thoracic aorta. Lungs: Interstitial and alveolar edema with scant pleural fluid and subsegmental atelectasis. Bones: Degenerative changes are identified within the thoracic spine. RAD/Chest PA and Lateral IMPRESSION: Cardiac enlargement. Interstitial and alveolar edema. Reading Location: [id number]
--- NOTE | 2025-01-05 10:11 | ED.VIS.DYS ---
HPI History of Present Illness Chief Complaint: Shortness of Breath Informant: patient Onset/Context/Timing Onset: Days Context: gradual Timing: Continuous Current Severity: Mild Maximum Severity: Mild Worsened by: Nothing Associated Symptoms Negative for cough Chest Pain: Positive for None Narrative Narrative: 74-year-old female history of COPD and hypertension currently on Eliquis due to prior DVT and PEs. She is chronically on 2 L of oxygen recently has been bumped up to 3 L. States that she has been short of breath the last couple days. No new cough. No chest pain. No leg pain or swelling. Denies any fever or chills. Denies recent illness. Was hospitalized at [facility] for similar event in early October. PE Risk Factors: Positive for Prior DVT or PE and Recent immobilization; Negative for Cancer, OCP + Smoking + > 35, Recent surgery or Recent travel Prior similar symptoms: Yes Recent Illness/Hospitalization: Yes [facility] Medical History Chronic anemia Constipation Emphysema lung Thrombocytopenia Stroke/cerebrovascular accident History of pulmonary embolism HLD (hyperlipidemia) Chronic back pain COPD (chronic obstructive pulmonary disease) HTN (hypertension) Home Medications ?Medication ?Instructions ?Recorded ?Last Taken ?Type gemfibrozil 600 mg tablet 600 mg PO BID cholesteol 03/03/19 10/31/24 History apixaban 5 mg tablet (Eliquis) 5 mg PO BID blood thinner 01/21/24 10/31/24 History docusate sodium 100 mg capsule 100 mg PO BID stool softner 10/31/24 10/31/24 History (Col-Rite) gabapentin 100 mg capsule 200 mg PO BID nerve pain 10/31/24 10/31/24 History sulfamethoxazole 400 1 tab PO BID infection 10/31/24 10/31/24 History mg-trimethoprim 80 mg tablet prednisone 10 mg tablet 10 mg PO DAILY #20 tabs 11/03/24 Unknown Rx Allergy/AdvReac Type Severity Reaction Status Date / Time No Known Allergies Allergy Verified 01/05/25 09:52 Family History Mother Heart disease Father Heart disease Surgical History Previous back surgery Social History housing: assisted living facility Smoking Status: Former smoker alcohol intake: never substance use type: does not use ROS ROS ED ROS Narrative Shortness of breath. Denies cough. Denies fever. Denies chest pain. Constitutional Constitutional ED: Denies chills or fever(s) Eyes Eyes: Denies blurry vision ENT ENT ED: Denies ear pain Cardiovascular Cardiovascular: Denies chest pain Respiratory/Chest Respiratory/Chest: Denies cough Gastrointestinal Gastrointestinal: Denies abdominal pain Genitourinary Genitourinary ED: Denies dysuria or hematuria Musculoskeletal Musculoskeletal: Denies arthralgias or back pain Integumentary Denies abscess or Abrasions Neurologic Neurologic: Denies headache(s) Psychiatric Psychiatric: Denies anxiety or depression Endocrine Endocrinology: Denies cold intolerance Hematologic/Lymphatic Hematologic/Lymphatic: Denies easy bleeding Allergic/Immunologic Allergic/Immunologic ED: Denies mouth swelling or tongue swelling EXAM Physical Exam Narrative Exam Narrative: 74-year-old female sitting upright in bed. Family at bedside. Vital signs are stable she is hypoxic on 2 L at 85 to 89%. But she is not in significant distress. H EENT exam pupils round react light. Moist mucous membranes. Neck nontender no JVD. Lungs coarse breath sounds. No rales or rhonchi. Really not excessive wheezing. Heart regular rhythm rate about 60 no murmur. Chest wall ribs nontender. Abdomen soft nontender. Moving all 4 extremities. Calves are nontender without edema or cords. Normal dorsi plantarflexion. 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 Neurologically she is awake and alert. Answering questions following commands. Const Vital Signs: 01/05/25 09:52 01/05/25 09:56 01/05/25 09:56 Temperature 98.5 F 98.5 F Temperature Source Oral Oral Pulse Rate 64 63 Respiratory Rate 24 H 18 Respiratory Effort Short of Breath Respiratory Depth Normal Respiratory Pattern Normal Blood Pressure 116/46 L 116/46 L Blood Pressure Mean 69 69 Pulse Ox 89 85 Oxygen Delivery Method Nasal Cannula Nasal Cannula Nasal Cannula Oxygen Flow Rate (L/min) 2 4 4 01/05/25 10:25 01/05/25 10:26 01/05/25 10:26 Temperature Temperature Source Pulse Rate 63 Respiratory Rate 20 H Respiratory Effort Respiratory Depth Respiratory Pattern Blood Pressure Blood Pressure Mean Pulse Ox 2 96 Oxygen Delivery Method Nasal Cannula Nasal Cannula Oxygen Flow Rate (L/min) 3 01/05/25 10:30 01/05/25 10:37 Temperature Temperature Source Pulse Rate 65 Respiratory Rate 22 H Respiratory Effort Respiratory Depth Respiratory Pattern Blood Pressure 153/73 H Blood Pressure Mean 99 Pulse Ox 98 Oxygen Delivery Method Nasal Cannula Oxygen Flow Rate (L/min) 2 Positive well nourished and well developed General Appearance ED: well developed; Negative for pallor HEENT Reports moist mucous membranes Eyes PERRL and EOMs intact bilaterally Neck no lymphadenopathy, supple, no meningeal signs and no JVD Resp normal respiratory effort Resp Narrative: Coarse breath sounds bilaterally. Auscultation: wheezes; Negative for rales or rhonchi Cardio regular rate, regular rhythm, S1 normal heart sound, S2 normal heart sound and no murmurs GI non-tender, non-distended and no masses Auscultation: normoactive bowel sounds Palpation: soft; Negative for tender, guarding or rebound tenderness present Back/Spine no CVA tenderness and normal to inspection Extremity normal to inspection General Extremety ED: Negative for edema or tenderness General Extremity: Negative for edema Neuro oriented x3 and CN's II-XII intact bilaterally Sensorium / Orientation: alert, oriented to person, oriented to place and oriented to time; Negative for orientation impaired, confused or lethargic Speech: speech normal Motor Exam: strength 5/5 throughout Psych mental status grossly normal Thought Process: normal thought process Skin no wounds and skin turgor normal General Skin Exam: Negative for jaundice or pallor Lesions: no lesions Rashes: no rashes MDM MDM MDM Narrative Medical decision making narrative: 74-year-old female history of COPD and prior DVT and PEs on Eliquis complaining shortness of breath. She is on oxygen on her normal 2 L she is 85 to 89%. Cardiac site and respiratory workup. She will be treated with DuoNeb and albuterol aerosols and IV Solu-Medrol. Differential would include COPD exacerbation, pneumonia, viral URI, CHF versus other etiologies. I do not think this is a PE given that she is on anticoagulation has been taking it. History & Record Review Additional record(s) reviewed:: Prior inpatient record, Prior outpatient record, Prior ED visit and Prior labs Lab Data Attestation: I reviewed the patient's lab results. Lab results narrative: CBC shows a white count of 5.5. H&H 10.1 and 33. Platelets 153. Electrolytes show sodium 141. Gap 8. BUN and creatinine of 30 and 1.79. Glucose 96. Troponin 37. Blood gas shows a pH of 7.12, PCO2 of 97 and PO2 of 57 consistent with CO2 retention and respiratory acidosis along with hypoxia. Sat was 76%. Labs: Laboratory Results - last 24 hr 01/05/25 10:10 WBC 5.5 RBC 3.11 L Hgb 10.1 L Hct 33.7 L MCV 108.4 H MCH 32.5 H MCHC 30.0 L RDW Std Deviation 57.4 H RDW Coeff of [place]ver[place] 14.5 Plt Count 153 MPV 10.7 Immature Gran % (Auto) 4.200 H Neut % (Auto) 77.1 H Lymph % (Auto) 9.6 L [place] % (Auto) 8.5 Eos % (Auto) 0.2 Baso % (Auto) 0.4 Absolute Neuts (auto) 4.3 Absolute Lymphs (auto) 0.53 L Nucleated RBC % 0 Sodium 141 Potassium 4.9 Chloride 102 Carbon Dioxide 31.4 Anion Gap 8 BUN 38 H Creatinine 1.79 H Estim Creat Clear Calc 36.33 L Est GFR (MDRD) Non-Af 29 L BUN/Creatinine Ratio 21.3 H Glucose 96 Calcium 9.3 Troponin T High Sens 37 H ABG Data ABG results: ABG 01/05/25 10:46 Specimen Type ART Sample Site L Brach pH 7.12 L* Bicarbonate Actual 32.0 H Total CO2 35 Base Excess 3 H O2 Saturation 76 L O2 % 2.0 ABG pCO2 97.8 H* ABG pO2 57 L O2 Delivery Device Cannula Vent Mode Not entered Crit Call To/Read Back Yes Radiography Chest X-Ray - ED: 2 View, Read by ED Physician, Heart, Mediastinum, Bony Structures and Chronic Changes Diagnostic Testing: Chest x-ray, 2 views AP and lateral shows prominent opacity right lower lung could be consistent with a pneumonia. Normal cardiac silhouette. Orthopedic hardware along the thoracic spine with rods and screws. Rhythm Strip Rhythm Strip: Sinus Rhythm Rate: 65 Ectopy: None EKG Initial EKG: Attestation: I personally reviewed and interpreted this EKG as follows: Interpretation: Sinus Rhythm and No Acute Injury Pattern Comments: Normal sinus rhythm rate of 65 no acute signs of [place] or ischemia. Discharge Plan Triage Chief Complaint: Shortness of Breath ED Provider: Lobito Benson Dx/Rx/DC Orders Prescriptions: No Action gemfibrozil 600 MG tablet 600 mg PO BID Eliquis 5 mg tablet 5 mg PO BID sulfamethoxazole-trimethoprim 400-80 mg tablet 1 tab PO BID gabapentin 100 mg capsule 200 mg PO BID docusate sodium [Col-Rite] 100 mg capsule 100 mg PO BID prednisone 10 mg tablet 10 mg PO DAILY Qty: 20 0RF Rx Instructions: 3 tablets daily for 3 days then 2 tablets daily for 3 days then 1 tablet daily for 3 days then half tablet daily for 4 days Primary Care Provider: Matthew Valdivia Referrals: Matthew Valdivia DO [Primary Care Provider] - Print Language: Slovenian
[2025-01-05] MEDS: Albuterol 2.5 MG/3 ML VIAL.NEB. INHALATION ×2 (10:23→19:56)
[2025-01-05 10:25] LABS: Hematocrit 33.7 % (37-47); Hemoglobin 10.1 g/dL (12.0-15.0); Immature Granulocytes Count 0.230 X10^3/uL (0.0-0.0); Mean Corp Hgb Conc 30.0 g/dL (32-36); Mean Corpuscular Volume 108.4 fL (81-99); Mean Platelet Vol. 10.7 fl (6.2-12.0); NRBC Flagged by Analyzer 0 % (0-5); POSITIVE DIFFERENTIAL YES; Platelet Count 153 K/mm3 (150-450); RBC Distribution Width CV 14.5 % (11.6-14.6); RBC Distribution Width SD 57.4 fl (35.1-43.9); Red Blood Count 3.11 M/mm3 (4.2-5.4); White Blood Count 5.5 K/mm3 (4.4-11.0)
[2025-01-05 10:49] LABS: Anion Gap 8 (5-15); BUN 38 mg/dL (4-19); BUN/Creat Ratio 21.3 RATIO (10-20); Calcium,Total 9.3 mg/dL (7.6-11.0); Carbon Dioxide 31.4 mmol/L (21.0-32.0); Chloride 102 mmol/L (98-108); Estimated Creatinine Clearance 36.33 ml/min (50-250); Glucose 96 mg/dL (70-99); Potassium 4.9 mmol/L (3.3-5.1); Troponin T High Sensitivity 37 ng/L (<=14)
--- NOTE | 2025-01-05 10:50 | CPS ---
Critical blood gas results given to Dr Benson.
--- NOTE | 2025-01-05 10:50 | CPS ---
Critical blood gas results given to Dr Benson.
[2025-01-05 10:51] LABS: Base Excess 3 mmol/L (-2 to +2); FI02 2.0; PO2 57 mmHG (75-100); SITE L Brach; SO2 76 % (95-99)
--- NOTE | 2025-01-05 11:07 | PCM.HP.STD ---
HPI - General General Date of Admission: 01/05/25 Date of Service: 01/05/25 Chief Complaint: shortness of breath HPI Narrative DESIRE CHAUDHRY, is a 74 F with a PMH as outlined who was admitted via the ED on 01/05/2025 with a complaint of shortness of breath. She is chronically on 2L of oxygen at home, and says she had recently been bumped up to 3L. She started feeling short of breath for a couple of days prior to admission. She usually wears oxygen at home but her shortness of breath was not improving. She denied any cough, chest pain, wheezing, nausea or vomiting, palpitations or any other symptoms. She called the EMS who found her to be saturating in the 30s when they arrived. Vitals in the ED were BP of 153/65, [place] of 72, RR of 20 and temp of 96.8F. She was saturating at 100% on BIPAP. CBC showed hb of 10.1, wbc of 5.5 and platelets of 153. Chemistry showed sodium of 141, potassium of 4.9 and bicarb of 31.4. Cr was 1.79 and initial troponin was 37. ABG showed pH of 7.12, pCO2 of 97.8 as well as pO2 of 57. She is being admitted to be managed for acute on chronic hypoxic and hypercapnic respiratory failure due to COPD exacerbation and possible pneumonia. CXR showed cardiac enlargement with interstitial and alveolar edema. FORMERLY [facility], [facility] Medical History Chronic anemia Constipation Emphysema lung Thrombocytopenia Stroke/cerebrovascular accident History of pulmonary embolism HLD (hyperlipidemia) Chronic back pain COPD (chronic obstructive pulmonary disease) HTN (hypertension) Home Medications ?Medication ?Instructions ?Recorded ?Last Taken ?Type gemfibrozil 600 mg tablet 600 mg PO BID cholesteol 03/03/19 10/31/24 History apixaban 5 mg tablet (Eliquis) 5 mg PO BID blood thinner 01/21/24 10/31/24 History sulfamethoxazole 400 1 tab PO BID infection 10/31/24 10/31/24 History mg-trimethoprim 80 mg tablet albuterol sulfate 90 mcg/actuation 2 puff inhalation Q6H PRN PRN 01/05/25 Unknown History aerosol inhaler wheezing budesonide-formoterol HFA 80 2 puff inhalation Q12H COPD 01/05/25 Unknown History mcg-4.5 mcg/actuation aerosol inhaler (Breyna) gabapentin 300 mg capsule 300 mg PO Q12H 01/05/25 Unknown History sennosides 8.6 mg-docusate sodium 2 tab-cap PO BID PRN constipation 01/05/25 Unknown History 50 mg tablet (Senna with Docusate Sodium) Allergy/AdvReac Type Severity Reaction Status Date / Time No Known Allergies Allergy Verified 01/05/25 09:52 Family History Mother Heart disease Father Heart disease Surgical History Previous back surgery Social History housing: assisted living facility Smoking Status: Former smoker alcohol intake: never substance use type: does not use ROS Constitutional Constitutional: Reports fatigue, malaise and weakness; Denies anorexia, chills or fever(s) Eyes Eyes: Denies change in vision ENT HEENT: Denies dysphagia, headache(s) or sore throat Cardiovascular Cardiovascular: Reports dyspnea on exertion; Denies chest pain, edema, lightheadedness, orthopnea, palpitations, paroxysmal nocturnal dyspnea, rapid heart rate or syncope Respiratory/Chest Respiratory/Chest: Reports cough, dyspnea, shortness of breath at rest and shortness of breath with exertion; Denies excessive phlegm production, hemoptysis, productive cough or wheezing Gastrointestinal Gastrointestinal: Denies abdominal pain, constipation, diarrhea, nausea or vomiting Genitourinary Genitourinary: Denies dysuria Neurologic Neurologic: Denies confusion, dizziness, focal weakness, headache(s) or numbness Psychiatric Psychiatric: Denies anxiety Vital Signs Vital Signs Vital Signs: 01/05/25 09:52 01/05/25 09:56 01/05/25 09:56 Temperature 98.5 F 98.5 F Temperature Source Oral Oral Pulse Rate 64 63 Respiratory Rate 24 H 18 Respiratory Effort Short of Breath Respiratory Depth Normal Respiratory Pattern Normal Blood Pressure 116/46 L 116/46 L Blood Pressure Mean 69 69 Pulse Ox 89 85 Oxygen Delivery Method Nasal Cannula Nasal Cannula Nasal Cannula Oxygen Flow Rate (L/min) 2 4 4 01/05/25 10:25 01/05/25 10:26 01/05/25 10:26 Temperature Temperature Source Pulse Rate 63 Respiratory Rate 20 H Respiratory Effort Respiratory Depth Respiratory Pattern Blood Pressure Blood Pressure Mean Pulse Ox 2 96 Oxygen Delivery Method Nasal Cannula Nasal Cannula Oxygen Flow Rate (L/min) 3 01/05/25 10:30 01/05/25 10:37 Temperature Temperature Source Pulse Rate 65 Respiratory Rate 22 H Respiratory Effort Respiratory Depth Respiratory Pattern Blood Pressure 153/73 H Blood Pressure Mean 99 Pulse Ox 98 Oxygen Delivery Method Nasal Cannula Oxygen Flow Rate (L/min) 2 Weight Weight: 263 lb 14.293 oz Body Mass Index (BMI) 42.5 Physical Exam Const alert, oriented x3 and no apparent distress Constitutional Narrative: Class II obesity. At time of my review patient off BiPAP and on 3 L of oxygen by nasal cannula HEENT normocephalic, head/scalp atraumatic and hearing grossly normal bilaterally HEENT Narrative: dry oral mucosa Mouth: oral and palatal mucosa normal Eyes EOMs intact bilaterally and conjunctivae normal Neck no lymphadenopathy and supple Resp Resp Narrative: Moderately diminished breath sounds bibasilar. Mild wheezing, bilateral coarse crackles. Was on 3 L at time of my review but later transitioned back onto BiPAP. Cardio regular rate, regular rhythm, S1 normal heart sound, S2 normal heart sound and no murmurs GI normal to inspection, nondistended, normoactive bowel sounds, soft to palpation, non-tender and non-distended Extremity normal to inspection, full ROM and no clubbing, cyanosis or edema Neuro oriented x3, CN's II-XII intact bilaterally and moves all extremities Sensorium / Orientation: awake and alert Motor Exam: strength 5/5 throughout Psych affect normal Results Lab / Micro Data 01/05/25 10:10 01/05/25 10:10 Labs: Laboratory Results - last 24 hr 01/05/25 10:10: WBC 5.5, RBC 3.11 L, Hgb 10.1 L, Hct 33.7 L, MCV 108.4 H, MCH 32.5 H, MCHC 30.0 L, RDW Std Deviation 57.4 H, RDW Coeff of Alverto 14.5, Plt Count 153, MPV 10.7, Immature Gran % (Auto) 4.200 H, Neut % (Auto) 77.1 H, Lymph % (Auto) 9.6 L, [place] % (Auto) 8.5, Eos % (Auto) 0.2, Baso % (Auto) 0.4, Absolute Neuts (auto) 4.3, Absolute Lymphs (auto) 0.53 L, Nucleated RBC % 0, Sodium 141, Potassium 4.9, Chloride 102, Carbon Dioxide 31.4, Anion Gap 8, BUN 38 H, Creatinine 1.79 H, Estim Creat Clear Calc 36.33 L, Est GFR (MDRD) Non-Af 29 L, BUN/Creatinine Ratio 21.3 H, Glucose 96, Calcium 9.3, Troponin T High Sens 37 H ABG Data ABG results: ABG 01/05/25 10:46 Specimen Type ART Sample Site L Brach pH 7.12 L* Bicarbonate Actual 32.0 H Total CO2 35 Base Excess 3 H O2 Saturation 76 L O2 % 2.0 ABG pCO2 97.8 H* ABG pO2 57 L O2 Delivery Device Cannula Vent Mode Not entered Crit Call To/Read Back Yes Rhythm Strip Rhythm Strip: Sinus Rhythm Rate: 65 Ectopy: None Imaging Radiology Impression Chest X-Ray 01/05/25 10:09 IMPRESSION: Cardiac enlargement. Interstitial and alveolar edema. Reading Location: [facility] Assessment & Plan Assessment/Plan (1) Increasing shortness of breath: (2) Right lower lobe pneumonia: (3) Hypoxia: PLAN: Plan #Acute on chronic hypoxic and hypercapnic respiratory failure due to COPD exacerbation as well as fluid overload and pneumonia Admit to PCU. Patient was on BiPAP but she wants to be DNR CCA no intubation so will not put her in the ICU. Admitted with a complaint of sudden onset shortness of breath that started in the early hours of the day of admission. Chest x-ray showed interstitial and alveolar edema as well as cardiac enlargement. CT of the chest done without contrast as she is already on blood thinners showed bilateral small pleural effusions right greater than left with consolidation in the right lower lobe and possible atelectasis in the left lower lobe as well as minimal pericardial thickening Started on IV levofloxacin. Also added on IV Solu-Medrol 40 mg Q8. Diuresed with IV Lasix 40 mg twice daily in light of elevated BNP ABG done showed pH of 7.12 with PCO2 of 97 and PO2 of 57. Patient used BiPAP as needed for shortness of breath Breathing treatments bronchodilators. Consult pulmonology. Titrate oxygen to maintain saturation above 90%. Check urine for strep and Legionella and sputum cultures. #History of PE: On Eliquis #Hyperlipidemia: On gemfibrozil #History of peripheral neuropathy: On gabapentin. History of CKD stage III: Creatinine was 1.79 on admission which is around her baseline. WIll monitor DVT prophylaxis: Already on Eliquis CODE STATUS: DNR CCA no intubation Patient counseled extensively about different types of CODE STATUS including full code, DNR CC and DNR CCA. Patient elects to be DNRCCA no intubation; she does not want chest compressions and does not want to be intubated. her niece who is her primary caregiver was by her bedside and clarified that this is what patient wanted. Total [id number] time 17 minutes. Charges/Coding Visit Charges Inpatient E&M: 99722 Init Hosp L3 Procedures Hospitalists Procedures: 25205 Advncd Care Plan 30 Min
--- NOTE | 2025-01-05 11:11 | CT_ITS ---
PROCEDURE: CHEST WITHOUT CONTRAST 01/05/2025 REASON FOR EXAM: RIGHT LOWER LOBE DENSITY QUESTION PNEUMONIA VERSUS TECHNIQUE: Chest CT without contrast. Coronal and Sagittal reconstruction series were provided. One or more dose reduction techniques were used (e.g., Automated exposure control, adjustment of the mA and/or kV according to patient size, use of iterative reconstruction technique RADIATION DOSE SUMMARY: CTDlvol: 21.87 mGy DLP: 788.07 mGycm COMPARISON: Prior chest radiograph done earlier in the day. FINDINGS: Hardware: EKG electrodes are seen. A dual-chamber pacemaker is seen. Lymph nodes: Small benign-appearing mediastinal lymph nodes. Heart and Vasculature: Cardiomegaly. Minimal pericardial thickening. Coronary Artery Calcifications: Present Lungs and Airways: Small bilateral pleural effusions. Consolidation in the right lower lobe. Mild increased markings at the left lung base suggestive of possible compressive atelectasis. No evidence of pulmonary edema. Upper Abdomen: Unremarkable Bones: Prior intrapedicular screw and anjel fixation of the thoracic spine. Multilevel loss of height of the thoracic spine with increased kyphosis. CT/Chest without Contrast IMPRESSION: Coronary artery calcification (CAC) is is present Small bilateral effusions right greater than left with consolidation in the rig ht lower lobe and possible atelectasis in the left lower lobe. Minimal pericardial thickening. Reading Location: [id number]
--- NOTE | 2025-01-05 11:19 | CPS ---
Addendum entered by Melly Law 01/05/25 12:04: Patient wanting BiPAP mask off at 1105, settings decreased from 18/9 to 12/5. Patient tolerated a bit better. BiPAP mask removed at [address] scan. Patient awake and alert when returning from imaging. Patient left on 2lpm nasal cannula, RN aware. Original Note: 1
--- NOTE | 2025-01-05 11:25 | CASEMGMT ---
Social Work Patients family verified that patient will be returning to [place] when medically ready. Emily Herrera, TAXI TRUCK DRIVER, COMMERCIAL ART INSTRUCTOR
--- NOTE | 2025-01-05 11:25 | CASEMGMT ---
Social Work Patients family verified that patient will be returning to [place] when medically ready. Emily Herrera, TUNNEL FORM PLACING SUPERVISOR, METAL BONDING HELPER
[2025-01-05 12:34] LABS: Troponin T High Sens 2 HR 31 ng/L (<=14)
--- NOTE | 2025-01-05 12:39 | ED.RN ---
called respiratory to inform of pt being drowsy again, will awakened but may need to be placed back on bipap. medic taking patient to PCU
--- NOTE | 2025-01-05 12:39 | ED.RN ---
called respiratory to inform of pt being drowsy again, will awakened but may need to be placed back on bipap. medic taking patient to PCU
[2025-01-05] MEDS: 0.9% Saline Lock 10 ML Syringe IV ×3 (14:50→20:16)
--- NOTE | 2025-01-05 16:00 | NURSING ---
dewayne lepe r/t waiting for pharm to send to floor.
--- NOTE | 2025-01-05 16:00 | NURSING ---
dewayne lepe r/t waiting for pharm to send to floor.
[2025-01-05] MEDS: Smz/Tmp Ds Tablet 0.5 TABLET PO (17:06)
[2025-01-05] MEDS: levoFLOXacin IV 750 MG/150 ML BAG 100 MG IV (17:19)
[2025-01-05 19:31] LABS: Allen Test Positive; Base Excess 10 mmol/L (-2 to +2); FI02 30.0; PEEP 8; PO2 59 mmHG (75-100); SITE R Radial; SO2 88 % (95-99)
[2025-01-05] MEDS: Budesonide Respules 0.5 MG/2 ML AMPUL.NEB. INHALATION (19:56)
[2025-01-05] MEDS: APIXABAN 5 MG TABLET PO (20:28)
[2025-01-06] VITALS (10 sets, daily range): BP systolic 114–158; BP diastolic 54–76; PULSE 67–176; RESP 14–20; TEMP 2.9–37.3; O2SAT 91–98
--- NOTE | 2025-01-06 03:32 | PCMCONS.TICU ---
HPI Consult Data Date of Consult: 01/06/25 HPI Narrative HPI Narrative: DESIRE CHAUDHRY is a 74 F with a history of chronic O2 presentes with progressive shortness of breath over several days. EMS found SpO2 in the 30s; placed on BiPAP with rapid improvement. Initial ABG: PCO2 97.8 mmHg, pH 7.12 (severe hypercapnia and respiratory acidosis). She denies history of sleep study, CPAP, or BiPAP at home. No known history of snoring or witnessed apneas. Denies nocturnal choking or gasping, though detailed sleep history limited. Reports no prior nocturnal noninvasive ventilation use. Currently on BiPAP, tolerating well, improved comfort and breathing. No acute distress. Education provided about likely contribution of obesity hypoventilation syndrome and/or sleep-disordered breathing to recurrent hypercapnic episodes; emphasized importance of sleep study and home noninvasive ventilation. [facility] Medical History Chronic anemia Constipation Emphysema lung Thrombocytopenia Stroke/cerebrovascular accident History of pulmonary embolism HLD (hyperlipidemia) Chronic back pain COPD (chronic obstructive pulmonary disease) HTN (hypertension) Home Medications ?Medication ?Instructions ?Recorded ?Last Taken ?Type gemfibrozil 600 mg tablet 600 mg PO BID cholesteol 03/03/19 10/31/24 History apixaban 5 mg tablet (Eliquis) 5 mg PO BID blood thinner 01/21/24 10/31/24 History sulfamethoxazole 400 1 tab PO BID infection 10/31/24 10/31/24 History mg-trimethoprim 80 mg tablet albuterol sulfate 90 mcg/actuation 2 puff inhalation Q6H PRN PRN 01/05/25 Unknown History aerosol inhaler wheezing budesonide-formoterol HFA 80 2 puff inhalation Q12H COPD 01/05/25 Unknown History mcg-4.5 mcg/actuation aerosol inhaler (Breyna) gabapentin 300 mg capsule 300 mg PO Q12H 01/05/25 Unknown History sennosides 8.6 mg-docusate sodium 2 tab-cap PO BID PRN constipation 01/05/25 Unknown History 50 mg tablet (Senna with Docusate Sodium) Allergy/AdvReac Type Severity Reaction Status Date / Time No Known Allergies Allergy Verified 01/05/25 09:52 Family History Mother Heart disease Father Heart disease Surgical History Previous back surgery Social History housing: assisted living facility Smoking Status: Former smoker alcohol intake: never substance use type: does not use Objective Data Objective Data Vital Signs: Vital Signs Last response Temperature 36.7 C 01/05/25 20:13 Temperature Source Temporal 01/05/25 20:13 Pulse Rate 85 01/05/25 23:25 Pulse Strength Normal (2+) 01/05/25 20:15 Respiratory Rate 20 H 01/05/25 23:25 Respiratory Effort Normal, Non-Labored 01/05/25 20:15 Respiratory Depth Normal 01/05/25 20:15 Respiratory Pattern Normal 01/05/25 23:25 Blood Pressure 145/68 H 01/05/25 20:13 Blood Pressure Mean 93 01/05/25 20:13 Pulse Ox 92 01/05/25 23:25 Oxygen Delivery Method Nasal Cannula 01/05/25 21:08 Oxygen Flow Rate (L/min) 2.5 01/05/25 21:08 Fraction of Inspired Oxygen (FIO2) 32 01/05/25 23:25 I&O: I&O Last 24 Hours 01/05/25 01/05/25 01/06/25 11:59 23:59 11:59 Intake Total 250 / 250 Output Total 2200 / 2200 Balance -1950 / -1950 I&O: Total Stay 01/05/25 09:50 thru 01/05/25 23:30 Intake Total 250 Output Total 0 Balance -1949 Current Meds Ordered / Administered: Current meds ordered / Administered Generic Name Dose Route Start Last Admin Trade Name Freq PRN Reason Stop Dose Admin Acetaminophen 650 mg 01/05/25 13:15 Acetaminophen 325 Mg Tablet PO Q6H PRN PRN Pain 1-10 Or Fever >100.7 Albuterol Sulfate 2.5 mg 01/05/25 13:30 01/05/25 19:56 Albuterol 2.5 Mg/3 Ml Vial.Neb. INHALATION 2.5 mg Q6HWA.RT LIDA Administration Apixaban 5 mg 01/05/25 22:00 01/05/25 20:28 Apixaban 5 Mg Tablet PO 5 mg BID LIDA Administration Budesonide 0.5 mg 01/05/25 13:30 01/05/25 19:56 Budesonide Respules 0.5 Mg/2 Ml Ampul.Neb. INHALATION 0.5 mg Q12H.RT LIDA Administration Furosemide 40 mg 01/05/25 13:15 01/05/25 19:00 Furosemide 40 Mg/4 Ml Vial IV 40 mg BIDLX LIDA Administration Protocol Gabapentin 300 mg 01/05/25 22:00 01/05/25 20:28 Gabapentin 300 Mg Capsule PO 300 mg Q12 LIDA Administration Gemfibrozil 600 mg 01/05/25 22:00 01/05/25 20:28 Gemfibrozil 600 Mg Tablet PO 600 mg BID LIDA Administration Levofloxacin 750 mg in 150 mls @ 100 mls/hr 01/05/25 13:15 01/05/25 19:00 Levaquin Iv IV Infused Q48 LIDA Infusion Sodium Chloride 250 mls @ 15 mls/hr 01/05/25 14:30 IV .[id number] PRN Saline Flush Sodium Chloride 250 mls @ 15 mls/hr 01/05/25 14:30 IV .[id number] PRN Additional IVPB Infusion Methylprednisolone Sodium Succinate 40 mg 01/05/25 19:00 01/05/25 20:16 Methylprednisolone Sod Succ 40 Mg/Ml Vial IV 40 mg Q8 LIDA Administration Nitroglycerin 0.4 mg 01/05/25 13:15 Nitroglycerin (Inpatient Use) 0.4 Mg Tab.Subl SL Q5M PRN CARDIAC/CHEST PAIN Ondansetron HCl 4 mg 01/05/25 13:15 Ondansetron 4 Mg/2 Ml Vial IV Q8H PRN PRN NAUSEA/VOMITING Oxycodone HCl 2.5 - 5 mg 01/05/25 13:15 Oxycodone 5 Mg Tablet PO Q4H PRN PRN Pain Score 4-10 Sodium Chloride 10 - 40 ml 01/05/25 14:30 01/05/25 20:16 0.9% Saline Lock 10 Ml Syringe IV 10 ml UD PRN Administration SALINE FLUSH Trimethoprim/Sulfamethoxazole 0.5 tablet 01/05/25 17:00 01/05/25 17:06 Smz/Tmp Ds Tablet PO 0.5 tablet BIDCM LIDA Administration Physical Exam Narrative General: Alert, talking, comfortable on BiPAP Resp: Improved oxygenation on BiPAP Neuro: No focal deficits Const alert and oriented x3 General Appearance: cooperative Eyes PERRL Neck full ROM Resp Effort and Inspection: able to speak in complete sentences GI normal to inspection, nondistended, normoactive bowel sounds Neuro oriented x3, moves all extremities and no focal motor deficits Lab / Micro Data 01/05/25 10:10 01/05/25 10:10 Labs: Laboratory Results - last 24 hr 01/05/25 10:10: WBC 5.5, RBC 3.11 L, Hgb 10.1 L, Hct 33.7 L, MCV 108.4 H, MCH 32.5 H, MCHC 30.0 L, RDW Std Deviation 57.4 H, RDW Coeff of Alverto 14.5, Plt Count 153, MPV 10.7, Immature Gran % (Auto) 4.200 H, Neut % (Auto) 77.1 H, Lymph % (Auto) 9.6 L, [place] % (Auto) 8.5, Eos % (Auto) 0.2, Baso % (Auto) 0.4, Absolute Neuts (auto) 4.3, Absolute Lymphs (auto) 0.53 L, Nucleated RBC % 0, Sodium 141, Potassium 4.9, Chloride 102, Carbon Dioxide 31.4, Anion Gap 8, BUN 38 H, Creatinine 1.79 H, Estim Creat Clear Calc 36.33 L, Est GFR (MDRD) Non-Af 29 L, BUN/Creatinine Ratio 21.3 H, Glucose 96, Calcium 9.3, Troponin T High Sens 37 H 01/05/25 12:00: Troponin T Hi Sens 2 Hr 31 H Micro: Microbiology 01/05/25 20:18 Mucosa - Nasopharyngeal Respiratory Panel (PCR) - Final 01/05/25 15:15 Urine, Random Legionella Antigen - Final 01/05/25 15:15 Urine, Random Streptococcus pneumoniae Antigen (M - Final ABG Data ABG results: ABG 01/05/25 01/05/25 10:46 19:26 Specimen Type ART ART Sample Site L Brach R Radial pH 7.12 L* 7.34 L Bicarbonate Actual 32.0 H 35.7 H Total CO2 35 38 Base Excess 3 H 10 H O2 Saturation 76 L 88 L O2 % 2.0 30.0 ABG pCO2 97.8 H* 65.6 H ABG pO2 57 L 59 L Noman Test Positive O2 Delivery Device Cannula BiPAP Vent Mode Not entered AVAPS Tidal Volume 450.0 POC PEEP 8 Crit Call To/Read Back Yes Rhythm Strip Rhythm Strip: Sinus Rhythm Rate: 65 Ectopy: None Imaging Radiology Impression Chest X-Ray 01/05/25 10:09 IMPRESSION: Cardiac enlargement. Interstitial and alveolar edema. Reading Location: [id number] Chest CT 01/05/25 11:11 IMPRESSION: Coronary artery calcification (CAC) is is present Small bilateral effusions right greater than left with consolidation in the right lower lobe and possible atelectasis in the left lower lobe. Minimal pericardial thickening. Reading Location: [id number] Assessment and Plan . Assessment and plan: Critical Care Time: The entirety of this encounter was done via Telemedicine 1. Acute on chronic hypercapnic respiratory failure ? Continue BiPAP, titrate settings for optimal CO2 clearance; monitor serial ABGs; transition to nocturnal noninvasive ventilation when stable. 2. Suspected obesity hypoventilation syndrome ? undiagnosed sleep apnea ? Arrange outpatient sleep study; patient counseling completed. 3. Chronic hypoxemic respiratory failure ? Resume baseline O2 when not on BiPAP; monitor saturation. 4. Education/Long-term planning ? Reinforced need for home BiPAP/CPAP to prevent recurrence; coordinate with pulmonology.
[2025-01-06] MEDS: 0.9% Saline Lock 10 ML Syringe IV (05:22)
[2025-01-06 06:48] LABS: Hematocrit 29.1 % (37-47); Hemoglobin 8.8 g/dL (12.0-15.0); Immature Granulocytes Count 0.050 X10^3/uL (0.0-0.0); Mean Corp Hgb Conc 30.2 g/dL (32-36); Mean Corpuscular Volume 104.7 fL (81-99); Mean Platelet Vol. 11.2 fl (6.2-12.0); NRBC Flagged by Analyzer 0 % (0-5); POSITIVE DIFFERENTIAL YES; Platelet Count 165 K/mm3 (150-450); RBC Distribution Width CV 14.0 % (11.6-14.6); RBC Distribution Width SD 53.3 fl (35.1-43.9); Red Blood Count 2.78 M/mm3 (4.2-5.4); White Blood Count 4.8 K/mm3 (4.4-11.0)
[2025-01-06] MEDS: Budesonide Respules 0.5 MG/2 ML AMPUL.NEB. INHALATION ×2 (06:48→19:55)
[2025-01-06] MEDS: Albuterol 2.5 MG/3 ML VIAL.NEB. INHALATION ×3 (06:48→19:55)
[2025-01-06 07:10] LABS: Anion Gap 11 (5-15); BUN 42 mg/dL (4-19); BUN/Creat Ratio 20.8 RATIO (10-20); Calcium,Total 9.0 mg/dL (7.6-11.0); Carbon Dioxide 30.2 mmol/L (21.0-32.0); Chloride 98 mmol/L (98-108); Estimated Creatinine Clearance 32.69 ml/min (50-250); Glucose 118 mg/dL (70-99); Potassium 4.9 mmol/L (3.3-5.1)
[2025-01-06] MEDS: Smz/Tmp Ds Tablet 0.5 TABLET PO ×2 (08:06→17:27)
[2025-01-06] MEDS: APIXABAN 5 MG TABLET PO ×2 (10:42→21:42)
--- NOTE | 2025-01-06 11:21 | CASEMGMT ---
Social Work Updated clinicals faxed to Jackie at [place]. Phone call to Jackie who confirms pt can return to [facility] when medically ready. Pt sister is able to provide transport home. Green Sheet on chart to facilitate weekend discharge. Plan: Return to [facility], when medically ready YOLANDE Rodarte
--- NOTE | 2025-01-06 11:21 | CASEMGMT ---
Social Work Updated clinicals faxed to Jackie at [place]. Phone call to Jackie who confirms pt can return to [facility] when medically ready. Pt sister is able to provide transport home. Green Sheet on chart to facilitate weekend discharge. Plan: Return to [facility], when medically ready YOLANDE Rodarte
--- NOTE | 2025-01-06 13:26 | PN.CC_ITS ---
Objective Data Objective Data Vital Signs: Vital Signs Last response 3 Temperature 37.1 C 01/06/25 08:03 Temperature Source Oral 01/06/25 08:03 Pulse Rate 74 01/06/25 13:11 Pulse Strength Normal (2+) 01/06/25 10:00 Respiratory Rate 18 01/06/25 13:11 Respiratory Effort Normal, Non-Labored 01/06/25 10:00 Respiratory Depth Normal 01/06/25 10:00 Respiratory Pattern Normal 01/06/25 13:11 Blood Pressure 158/64 H 01/06/25 08:03 Blood Pressure Mean 95 01/06/25 08:03 Pulse Ox 93 01/06/25 08:03 Oxygen Delivery Method Nasal Cannula 01/06/25 10:00 Oxygen Flow Rate (L/min) 3 01/06/25 10:00 Fraction of Inspired Oxygen (FIO2) 32 01/06/25 03:00 I&O: I&O Last 24 Hours 3 01/05/25 01/06/25 01/06/25 23:59 11:59 23:59 Intake Total 250 / 250 180 / 180 Output Total 2200 / 2200 1000 / 1000 Balance -1950 / -1950 -820 / -820 I&O: Total Stay 3 01/05/25 09:50 thru 01/06/25 09:40 Intake Total 430 Output Total 3200 Balance -2770 Current Meds Ordered / Administered: Current meds ordered / Administered 3 Generic Name Dose Route Start Last Admin Trade Name Freq PRN Reason Stop Dose Admin Acetaminophen 650 mg 01/05/25 13:15 Acetaminophen 325 Mg Tablet PO Q6H PRN PRN Pain 1-10 Or Fever >100.7 Albuterol Sulfate 2.5 mg 01/05/25 13:30 01/06/25 13:11 Albuterol 2.5 Mg/3 Ml Vial.Neb. INHALATION 2.5 mg Q6HWA.RT LIDA Administration Apixaban 5 mg 01/05/25 22:00 01/06/25 10:42 Apixaban 5 Mg Tablet PO 5 mg BID LIDA Administration Budesonide 0.5 mg 01/05/25 13:30 01/06/25 06:48 Budesonide Respules 0.5 Mg/2 Ml Ampul.Neb. INHALATION 0.5 mg Q12H.RT LIDA Administration Furosemide 40 mg 01/05/25 13:15 01/06/25 10:43 Furosemide 40 Mg/4 Ml Vial IV 40 mg BIDLX LIDA Administration Protocol Gabapentin 300 mg 01/05/25 22:00 01/06/25 10:46 Gabapentin 300 Mg Capsule PO 300 mg Q12 LIDA Administration Gemfibrozil 600 mg 01/05/25 22:00 01/06/25 10:43 Gemfibrozil 600 Mg Tablet PO 600 mg BID LIDA Administration Levofloxacin 750 mg in 150 mls @ 100 mls/hr 01/05/25 13:15 01/05/25 19:00 Levaquin Iv IV Infused Q48 LIDA Infusion Sodium Chloride 250 mls @ 15 mls/hr 01/05/25 14:30 IV .[id number] PRN Saline Flush Sodium Chloride 250 mls @ 15 mls/hr 01/05/25 14:30 IV .[id number] PRN Additional IVPB Infusion Methylprednisolone Sodium Succinate 40 mg 01/05/25 19:00 01/06/25 05:22 Methylprednisolone Sod Succ 40 Mg/Ml Vial IV 40 mg Q8 LIDA Administration Nitroglycerin 0.4 mg 01/05/25 13:15 Nitroglycerin (Inpatient Use) 0.4 Mg Tab.Subl SL Q5M PRN CARDIAC/CHEST PAIN Ondansetron HCl 4 mg 01/05/25 13:15 Ondansetron 4 Mg/2 Ml Vial IV Q8H PRN PRN NAUSEA/VOMITING Oxycodone HCl 2.5 - 5 mg 01/05/25 13:15 Oxycodone 5 Mg Tablet PO Q4H PRN PRN Pain Score 4-10 Sodium Chloride 10 - 40 ml 01/05/25 14:30 01/06/25 05:22 0.9% Saline Lock 10 Ml Syringe IV 10 ml UD PRN Administration SALINE FLUSH Trimethoprim/Sulfamethoxazole 0.5 tablet 01/05/25 17:00 01/06/25 08:06 Smz/Tmp Ds Tablet PO 0.5 tablet BIDCM LIDA Administration Lab / Micro Data 01/06/25 05:31 01/06/25 05:31 Labs: Laboratory Results - last 24 hr 01/06/25 05:31: WBC 4.8, RBC 2.78 L, Hgb 8.8 L, Hct 29.1 L, MCV 104.7 H, MCH 31.7, MCHC 30.2 L, RDW Std Deviation 53.3 H, RDW Coeff of Alverto 14.0, Plt Count 165, MPV 11.2, Immature Gran % (Auto) 1.000 H, Neut % (Auto) 83.7 H, Lymph % (Auto) 8.5 L, [place] % (Auto) 6.6, Eos % (Auto) 0.0, Baso % (Auto) 0.2, Absolute Neuts (auto) 4.0, Absolute Lymphs (auto) 0.41 L, Nucleated RBC % 0, Sodium 140, Potassium 4.9, Chloride 98, Carbon Dioxide 30.2, Anion Gap 11, BUN 42 H, C reatinine 2.00 H, Estim Creat Clear Calc 32.69 L, Est GFR (MDRD) Non-Af 26 L, B UN/Creatinine Ratio 20.8 H, Glucose 118 H, Calcium 9.0 Micro: Microbiology 01/05/25 20:18 Mucosa - Nasopharyngeal Respiratory Panel (PCR) - Final 01/05/25 15:15 Urine, Random Legionella Antigen - Final 01/05/25 15:15 Urine, Random Streptococcus pneumoniae Antigen (M - Final ABG Data ABG results: ABG 01/05/25 19:26 Specimen Type ART Sample Site R Radial pH 7.34 L Bicarbonate Actual 35.7 H Total CO2 38 Base Excess 10 H O2 Saturation 88 L O2 % 30.0 ABG pCO2 65.6 H ABG pO2 59 L Noman Test Positive O2 Delivery Device BiPAP Vent Mode AVAPS Tidal Volume 450.0 POC PEEP 8 Rhythm Strip Rhythm Strip: Sinus Rhythm Rate: 65 Ectopy: None Assessment and Plan . Assessment and plan: Chart and data reviewed d/w ICU staff She is improved - ABG noted Continue supplemental O2, NIV support w/ sleep, inhaled BD, loop diuretics, short course steroids
--- NOTE | 2025-01-06 16:35 | PN_ITS ---
Subjective Subjective Patient seen and examined. She says she is feeling much better today. She is down to 3 L of oxygen. I saw her with her nurse by her bedside. Patient was requesting to be discharged home. I explained to her that she was very short of breath yesterday requiring BiPAP and just got on the oxygen by nasal cannula today. I therefore think it is advisable to keep her 1 more day to ensure she is further optimized. She insisted on leaving and wanted to sign out AMA but her family member came in and spoke to her subsequently and calmed her down. She therefore agreed to stay for 1 more night. Has been hemodynamically stable. Objective Data Objective Data Vital Signs: Vital Signs Temp Pulse Resp BP Pulse Ox O2 Del Method O2 Flow Rate 98.5 F 72 18 141/65 H 93 Nasal Cannula 3 01/06/25 13:32 01/06/25 13:32 01/06/25 13:32 01/06/25 13:32 01/06/25 13:32 01/06/25 14:00 01/06/25 14:00 FiO2 32 01/06/25 03:00 Oxygen Flow Rate (L/min) 3 Oxygen Delivery Method Nasal Cannula Weight: 258 lb 13.163 oz Body Mass Index (BMI) 40.5 Intake & Output: Intake and Output for Last 24 Hours 01/04/25 01/05/25 01/06/25 23:59 23:59 23:59 Intake Total 250 / 250 180 / 180 Output Total 2200 / 2200 1400 / 1400 Balance -1950 / -1950 -1220 / -1220 Lab / Micro Data 01/06/25 05:31 01/06/25 05:31 Labs: Laboratory Results - last 24 hr 01/06/25 05:31: WBC 4.8, RBC 2.78 L, Hgb 8.8 L, Hct 29.1 L, MCV 104.7 H, MCH 31.7, MCHC 30.2 L, RDW Std Deviation 53.3 H, RDW Coeff of Alverto 14.0, Plt Count 165, MPV 11.2, Immature Gran % (Auto) 1.000 H, Neut % (Auto) 83.7 H, Lymph % (Auto) 8.5 L, [place] % (Auto) 6.6, Eos % (Auto) 0.0, Baso % (Auto) 0.2, Absolute Neuts (auto) 4.0, Absolute Lymphs (auto) 0.41 L, Nucleated RBC % 0, Sodium 140, Potassium 4.9, Chloride 98, Carbon Dioxide 30.2, Anion Gap 11, BUN 42 H, C reatinine 2.00 H, Estim Creat Clear Calc 32.69 L, Est GFR (MDRD) Non-Af 26 L, B UN/Creatinine Ratio 20.8 H, Glucose 118 H, Calcium 9.0 Micro: Microbiology 01/05/25 20:18 Mucosa - Nasopharyngeal Respiratory Panel (PCR) - Final 01/05/25 15:15 Urine, Random Legionella Antigen - Final 01/05/25 15:15 Urine, Random Streptococcus pneumoniae Antigen (M - Final ABG Data ABG results: ABG 01/05/25 19:26 Specimen Type ART Sample Site R Radial pH 7.34 L Bicarbonate Actual 35.7 H Total CO2 38 Base Excess 10 H O2 Saturation 88 L O2 % 30.0 ABG pCO2 65.6 H ABG pO2 59 L Noman Test Positive O2 Delivery Device BiPAP Vent Mode AVAPS Tidal Volume 450.0 POC PEEP 8 Rhythm Strip Rhythm Strip: Sinus Rhythm Rate: 65 Ectopy: None Physical Exam Const alert, oriented x3 and no apparent distress Constitutional Narrative: Class II obesity. HEENT normocephalic, head/scalp atraumatic and hearing grossly normal bilaterally Eyes EOMs intact bilaterally and conjunctivae normal Neck no lymphadenopathy and supple Resp Resp Narrative: Mildly diminished breath sounds bibasilarly. No wheezes or crackles. On 3 L of oxygen by nasal cannula. Cardio regular rate, regular rhythm, S1 normal heart sound, S2 normal heart sound and no murmurs GI normal to inspection, nondistended, normoactive bowel sounds, soft to palpation, non-tender and non-distended Extremity normal to inspection, full ROM, normal capillary refill and no clubbing, cyanosis or edema General Extremity: no tenderness to palpation of joints or extremities Skin General Skin Exam: no breakdown Neuro oriented x3, CN's II-XII intact bilaterally and moves all extremities Sensorium / Orientation: awake and alert Motor Exam: general weakness Psych thought process normal, cooperative and affect normal Appearance: appropriate Assessment & Plan Assessment/Plan (1) Increasing shortness of breath: (2) Right lower lobe pneumonia: (3) Hypoxia: PLAN: Plan #Acute on chronic hypoxic and hypercapnic respiratory failure due to COPD exacerbation as well as fluid overload and pneumonia * Off BiPAP and on 3 L of oxygen by nasal cannula. * Currently on IV levofloxacin and IV Solu-Medrol as well as IV Lasix. * Critical care on board. Breathing treatments and bronchodilators. Titrate oxygen to maintain saturation above 90%. * Chest x-ray showed interstitial and alveolar edema as well as cardiac enlargement. CT of the chest done without contrast as she is already on blood thinners showed bilateral small pleural effusions right greater than left with consolidation in the right lower lobe and possible atelectasis in the left lower lobe as well as minimal pericardial thickening * Breathing treatments bronchodilators. Consult pulmonology. Titrate oxygen to maintain saturation above 90%. * Urine for strep and Legionella negative * #History of PE: On Eliquis #Hyperlipidemia: On gemfibrozil #History of peripheral neuropathy: On gabapentin. History of CKD stage III: Creatinine is 2 today. This is up from 1.79 yesterday but is around previous baselines. Will monitor. DVT prophylaxis: Already on Eliquis CODE STATUS: DNR CCA no intubation * Disposition: Anticipate discharge tomorrow if she remains medically stable Charges/Coding Visit Charges Inpatient E&M: 42732 Subs Hosp L2
--- NOTE | 2025-01-06 22:48 | EKG12_ITS ---
Test Reason : SOB Blood Pressure : */* mmHG Vent. Rate : 65 BPM Atrial Rate : 65 BPM P-R Int : 182 ms QRS Dur : 86 ms QT Int : 392 ms P-R-T Axes : 44 9 45 degrees QTcB Int : 407 ms Normal sinus rhythm with sinus arrhythmia Possible Anterior infarct , age undetermined Abnormal ECG Confirmed by URIEL ROMERO, TANA ([id number]), web editor CRISTINA ROCK ([id number]) on 01/08/2025 1:03:40 PM Referred By: RODRIGO Confirmed By: TANA TREVINO MD
--- NOTE | 2025-01-06 22:48 | EKG12_ITS ---
Test Reason : SOB Blood Pressure : */* mmHG Vent. Rate : 65 BPM Atrial Rate : 65 BPM P-R Int : 182 ms QRS Dur : 86 ms QT Int : 392 ms P-R-T Axes : 44 9 45 degrees QTcB Int : 407 ms Normal sinus rhythm with sinus arrhythmia Possible Anterior infarct , age undetermined Abnormal ECG Confirmed by URIEL ROMERO, TANA ([id number]), sports editor CRISTINA ROCK ([id number]) on 01/08/2025 1:03:40 PM Referred By: RODRIGO Confirmed By: TANA TREVINO MD
--- NOTE | 2025-01-06 23:24 | PCM.HOSP.N ---
Hospitalist Note Patient with onset of chest fluttering, on monitor had onset PAF with RVR, does not appear to have history, already on eliquis. Will administer cardizem bolus and add oral BB regimen pending response to bolus. Recent ECHO 10/31/24 noted. Will obtain mag, TSH levels.
[2025-01-07] VITALS (12 sets, daily range): BP systolic 98–148; BP diastolic 49–74; PULSE 60–127; RESP 16–18; TEMP 36.5–37.2; O2SAT 91–98
[2025-01-07 00:57] LABS: Magnesium 1.8 mg/dL (1.5-2.2)
[2025-01-07 07:06] LABS: Hematocrit 29.4 % (37-47); Hemoglobin 9.2 g/dL (12.0-15.0); Immature Granulocytes Count 0.050 X10^3/uL (0.0-0.0); Mean Corp Hgb Conc 31.3 g/dL (32-36); Mean Corpuscular Volume 101.4 fL (81-99); Mean Platelet Vol. 10.6 fl (6.2-12.0); NRBC Flagged by Analyzer 0 % (0-5); POSITIVE DIFFERENTIAL YES; Platelet Count 185 K/mm3 (150-450); RBC Distribution Width CV 13.7 % (11.6-14.6); RBC Distribution Width SD 51.0 fl (35.1-43.9); Red Blood Count 2.90 M/mm3 (4.2-5.4); White Blood Count 6.4 K/mm3 (4.4-11.0)
[2025-01-07] MEDS: Albuterol 2.5 MG/3 ML VIAL.NEB. INHALATION ×3 (07:12→19:03)
[2025-01-07] MEDS: Budesonide Respules 0.5 MG/2 ML AMPUL.NEB. INHALATION ×2 (07:12→19:03)
[2025-01-07] MEDS: Smz/Tmp Ds Tablet 0.5 TABLET PO ×2 (07:33→17:02)
[2025-01-07 07:40] LABS: Anion Gap 11 (5-15); BUN 52 mg/dL (4-19); BUN/Creat Ratio 26.3 RATIO (10-20); Calcium,Total 8.8 mg/dL (7.6-11.0); Carbon Dioxide 32.7 mmol/L (21.0-32.0); Chloride 97 mmol/L (98-108); Estimated Creatinine Clearance 33.36 ml/min (50-250); Glucose 123 mg/dL (70-99); Potassium 4.2 mmol/L (3.3-5.1)
[2025-01-07] MEDS: APIXABAN 5 MG TABLET PO ×2 (09:52→21:14)
[2025-01-07] MEDS: levoFLOXacin IV 750 MG/150 ML BAG 100 MG IV (09:53)
--- NOTE | 2025-01-07 10:54 | PN_ITS ---
Subjective Subjective Patient seen and examined. I saw her with her nurse by her bedside. She was lying in bed calmly. She had no active complaints. She did have an episode of A-fib with RVR overnight which resolved with Cardizem bolus. She is saturating just around 90% even on 3 L of oxygen this morning. She denies any shortness of breath or cough, palpitations, nausea or vomiting. Review of systems otherwise negative. Objective Data Objective Data Vital Signs: Vital Signs Temp Pulse Resp BP Pulse Ox O2 Del Method O2 Flow Rate 97.7 F L 97 18 148/72 H 91 Nasal Cannula 3 01/07/25 07:29 01/07/25 09:52 01/07/25 07:29 01/07/25 07:29 01/07/25 07:29 01/07/25 07:54 01/07/25 07:54 FiO2 32 01/06/25 03:00 Oxygen Flow Rate (L/min) 3 Oxygen Delivery Method Nasal Cannula Weight: 258 lb 13.163 oz Body Mass Index (BMI) 40.5 Intake & Output: Intake and Output for Last 24 Hours 01/05/25 01/06/25 01/07/25 23:59 23:59 23:59 Intake Total 250 / 250 580 / 580 Output Total 2200 / 2200 3050 / 3950 900 / 900 Balance -1950 / -1950 -2470 / -3370 -900 / -900 Lab / Micro Data 01/07/25 06:53 01/07/25 06:53 Labs: Laboratory Results - last 24 hr 01/06/25 00:07: Magnesium 1.8 01/07/25 06:53: WBC 6.4, RBC 2.90 L, Hgb 9.2 L, Hct 29.4 L, MCV 101.4 H, MCH 31.7, MCHC 31.3 L, RDW Std Deviation 51.0 H, RDW Coeff of Alverto 13.7, Plt Count 185, MPV 10.6, Immature Gran % (Auto) 0.800, Neut % (Auto) 86.2 H, Lymph % (Auto) 8.3 L, [place] % (Auto) 4.7, Eos % (Auto) 0.0, Baso % (Auto) 0.0, Absolute Neuts (auto) 5.5, Absolute Lymphs (auto) 0.53 L, Nucleated RBC % 0, Sodium 140, Potassium 4.2, Chloride 97 L, Carbon Dioxide 32.7 H, Anion Gap 11, BUN 52 H, C reatinine 1.96 H, Estim Creat Clear Calc 33.36 L, Est GFR (MDRD) Non-Af 26 L, B UN/Creatinine Ratio 26.3 H, Glucose 123 H, Calcium 8.8, TSH 0.756 Micro: Microbiology 01/05/25 20:18 Mucosa - Nasopharyngeal Respiratory Panel (PCR) - Final 01/05/25 15:15 Urine, Random Legionella Antigen - Final 01/05/25 15:15 Urine, Random Streptococcus pneumoniae Antigen (M - Final Rhythm Strip Rhythm Strip: Sinus Rhythm Rate: 65 Ectopy: None Physical Exam Const alert, oriented x3 and no apparent distress Constitutional Narrative: Class II obesity. HEENT normocephalic, head/scalp atraumatic and hearing grossly normal bilaterally Eyes EOMs intact bilaterally and conjunctivae normal Neck no lymphadenopathy and supple Resp Resp Narrative: Mildly diminished breath sounds bibasilarly. No wheezes or crackles. On 3 L of oxygen by nasal cannula. Cardio regular rate, regular rhythm, S1 normal heart sound, S2 normal heart sound and no murmurs GI normal to inspection, nondistended, normoactive bowel sounds, soft to palpation, non-tender and non-distended Extremity normal to inspection, full ROM, normal capillary refill and no clubbing, cyanosis or edema General Extremity: no tenderness to palpation of joints or extremities Skin General Skin Exam: no breakdown Neuro oriented x3, CN's II-XII intact bilaterally and moves all extremities Sensorium / Orientation: awake and alert Motor Exam: general weakness Psych thought process normal, cooperative and affect normal Appearance: appropriate Assessment & Plan Assessment/Plan (1) Increasing shortness of breath: (2) Right lower lobe pneumonia: (3) Hypoxia: PLAN: Plan #Acute on chronic hypoxic and hypercapnic respiratory failure due to COPD exacerbation as well as fluid overload and pneumonia * remains on 3L of oxygen. * Currently on IV levofloxacin and IV Solu-Medrol as well as IV Lasix. * Critical care on board. Breathing treatments and bronchodilators. Titrate oxygen to maintain saturation above 90%. * Chest x-ray showed interstitial and alveolar edema as well as cardiac enlargement. CT of the chest done without contrast as she is already on blood thinners showed bilateral small pleural effusions right greater than left with consolidation in the right lower lobe and possible atelectasis in the left lower lobe as well as minimal pericardial thickening * Breathing treatments bronchodilators. Titrate oxygen to maintain saturation above 90%. * Urine for strep and Legionella negative * In cumulative negative balance by 5.32 L. * #Paroxysmal afib * new onset. Developed afib with RVR overnight and received a cardizem bolus. * Started on oral metoprolol. * 2D echo done on 10/31/2024 showed: Mild concentric left ventricular hypertrophy with EF of 65% and stage I diastolic dysfunction with severely enlarged left atrium and RVSP of 47 mmHg. * continue eliquis and oral metoprolol 12.5mg bid. * TSH WNL * #History of PE: On Eliquis #Hyperlipidemia: On gemfibrozil #History of peripheral neuropathy: On gabapentin. History of CKD stage III: Cr is down to 1.96 today. This is up from 1.79 yesterday but is around previous baselines. Will monitor. DVT prophylaxis: Already on Eliquis CODE STATUS: DNR CCA no intubation * Disposition: Anticipated discharge by tomorrow if patient remains stable in light of new onset A-fib. Charges/Coding Visit Charges Inpatient E&M: 23205 Subs Hosp L2
--- NOTE | 2025-01-07 18:05 | PN.CC_ITS ---
Objective Data Objective Data Vital Signs: Vital Signs Last response 3 Temperature 36.9 C 01/07/25 13:42 Temperature Source Oral 01/07/25 13:42 Pulse Rate 77 01/07/25 13:42 Pulse Strength Normal (2+) 01/07/25 07:57 Respiratory Rate 17 01/07/25 13:42 Respiratory Effort Normal, Non-Labored 01/07/25 07:54 Respiratory Depth Normal 01/07/25 07:54 Respiratory Pattern Normal 01/07/25 12:59 Blood Pressure 98/59 L 01/07/25 13:42 Blood Pressure Mean 72 01/07/25 13:42 Blood Pressure Source Monitor 01/07/25 06:00 Pulse Ox 91 01/07/25 13:42 Oxygen Delivery Method Nasal Cannula 01/07/25 14:00 Oxygen Flow Rate (L/min) 3 01/07/25 14:00 Fraction of Inspired Oxygen (FIO2) 32 01/06/25 03:00 I&O: I&O Last 24 Hours 3 01/06/25 01/07/25 01/07/25 23:59 11:59 23:59 Intake Total 400 / 580 270 / 620 350 / 620 Output Total 2050 / 3950 1550 / 2500 950 / 2500 Balance -1650 / -3370 -1280 / -1880 -600 / -1880 I&O: Total Stay 3 01/05/25 09:50 thru 01/07/25 15:48 Intake Total 1450 Output Total 7750 Balance -6300 Current Meds Ordered / Administered: Current meds ordered / Administered 3 Generic Name Dose Route Start Last Admin Trade Name Brandonq PRN Reason Stop Dose Admin Acetaminophen 650 mg 01/05/25 13:15 Acetaminophen 325 Mg Tablet PO Q6H PRN PRN Pain 1-10 Or Fever >100.7 Albuterol Sulfate 2.5 mg 01/05/25 13:30 01/07/25 12:58 Albuterol 2.5 Mg/3 Ml Vial.Neb. INHALATION 2.5 mg Q6HWA.RT LIDA Administration Apixaban 5 mg 01/05/25 22:00 01/07/25 09:52 Apixaban 5 Mg Tablet PO 5 mg BID LIDA Administration Budesonide 0.5 mg 01/05/25 13:30 01/07/25 07:12 Budesonide Respules 0.5 Mg/2 Ml Ampul.Neb. INHALATION 0.5 mg Q12H.RT LIDA Administration Furosemide 40 mg 01/05/25 13:15 01/07/25 16:58 Furosemide 40 Mg/4 Ml Vial IV 40 mg BIDLX LIDA Administration Protocol Gabapentin 300 mg 01/05/25 22:00 01/07/25 09:51 Gabapentin 300 Mg Capsule PO 300 mg Q12 LIDA Administration Gemfibrozil 600 mg 01/05/25 22:00 01/07/25 09:52 Gemfibrozil 600 Mg Tablet PO 600 mg BID LIDA Administration Levofloxacin 750 mg in 150 mls @ 100 mls/hr 01/05/25 13:15 01/07/25 11:48 Levaquin Iv IV Infused Q48 LIDA Infusion Sodium Chloride 250 mls @ 15 mls/hr 01/05/25 14:30 IV .[id number] PRN Saline Flush Sodium Chloride 250 mls @ 15 mls/hr 01/05/25 14:30 IV .[id number] PRN Additional IVPB Infusion Methylprednisolone Sodium Succinate 40 mg 01/05/25 19:00 01/07/25 13:39 Methylprednisolone Sod Succ 40 Mg/Ml Vial IV 40 mg Q8 LIDA Administration Metoprolol Tartrate 12.5 mg 01/07/25 00:15 01/07/25 09:52 Metoprolol Tartrate 25 Mg Tablet PO 12.5 mg BID LIDA Administration Protocol Nitroglycerin 0.4 mg 01/05/25 13:15 Nitroglycerin (Inpatient Use) 0.4 Mg Tab.Subl SL Q5M PRN CARDIAC/CHEST PAIN Ondansetron HCl 4 mg 01/05/25 13:15 Ondansetron 4 Mg/2 Ml Vial IV Q8H PRN PRN NAUSEA/VOMITING Oxycodone HCl 2.5 - 5 mg 01/05/25 13:15 Oxycodone 5 Mg Tablet PO Q4H PRN PRN Pain Score 4-10 Sodium Chloride 10 - 40 ml 01/05/25 14:30 01/06/25 05:22 0.9% Saline Lock 10 Ml Syringe IV 10 ml UD PRN Administration SALINE FLUSH Trimethoprim/Sulfamethoxazole 0.5 tablet 01/05/25 17:00 01/07/25 17:02 Smz/Tmp Ds Tablet PO 0.5 tablet BIDCM LIDA Administration Lab / Micro Data 01/07/25 06:53 01/07/25 06:53 Labs: Laboratory Results - last 24 hr 01/06/25 00:07: Magnesium 1.8 01/07/25 06:53: WBC 6.4, RBC 2.90 L, Hgb 9.2 L, Hct 29.4 L, MCV 101.4 H, MCH 31.7, MCHC 31.3 L, RDW Std Deviation 51.0 H, RDW Coeff of Alverto 13.7, Plt Count 185, MPV 10.6, Immature Gran % (Auto) 0.800, Neut % (Auto) 86.2 H, Lymph % (Auto) 8.3 L, [place] % (Auto) 4.7, Eos % (Auto) 0.0, Baso % (Auto) 0.0, Absolute Neuts (auto) 5.5, Absolute Lymphs (auto) 0.53 L, Nucleated RBC % 0, Sodium 140, Potassium 4.2, Chloride 97 L, Carbon Dioxide 32.7 H, Anion Gap 11, BUN 52 H, C reatinine 1.96 H, Estim Creat Clear Calc 33.36 L, Est GFR (MDRD) Non-Af 26 L, B UN/Creatinine Ratio 26.3 H, Glucose 123 H, Calcium 8.8, TSH 0.756 Rhythm Strip Rhythm Strip: Sinus Rhythm Rate: 65 Ectopy: None Assessment and Plan . Assessment and plan: HPI 74 F with a history of chronic O2 presentes with progressive shortness of breath over several days. EMS found SpO2 in the 30s; placed on BiPAP with rapid improvement. Initial ABG: PCO2 97.8 mmHg, pH 7.12 (severe hypercapnia and respiratory acidosis). She denies history of sleep study, CPAP, or BiPAP at home. No known history of snoring or witnessed apneas. Denies nocturnal choking or gasping, though detailed sleep history limited. Reports no prior nocturnal noninvasive ventilation use. Currently on BiPAP, tolerating well, improved comfort and breathing. No acute distress. Education provided about likely contribution of obesity hypoventilation syndrome and/or sleep-disordered breathing to recurrent hypercapnic episodes; emphasized importance of sleep study and home noninvasive ventilation. 01/07/25 She feels better O2 3 LPM N/C Transient AF/RVR - now NSR Brisk diuresis w/ furosemide Renal function stable TTE - LVH, dilated LA EXAM GEN NAD VS as above HEENT N/C NECK obese COR RRR CHEST CTA ABD soft EXT modest edema SKIN w/d JARRED NF ASSESSMENT/PLAN 1. Acute and chronic respiratory failure requiring NIV support 2. Suspected underlying and untreated YESSY/OHVS 3. Chronic CHF 4. CKD 5. Former tobacco use 6. PAF - NSR now 7. H/O VTED - chronic NOAC use -supplemental O2 -continue NIV support w/ sleep as tolerated -stop albuterol d/t AF/tachycardia -short course steroids/ABX - would stop soon -chronic A/C -loop diuretics as tolerated -needs outpatient PSG or perhaps just commit to chronic nocturnal NIV use given chronic hypercapnia The entirety of this encounter was done via Telemedicine
[2025-01-07] MEDS: 0.9% Saline Lock 10 ML Syringe IV (21:15)
[2025-01-08 03:30] VITALS: BP 149/77; PULSE 77; RESP 18; TEMP 36.7; O2SAT 94
[2025-01-08 06:05] LABS: Hematocrit 33.1 % (37-47); Hemoglobin 10.1 g/dL (12.0-15.0); Immature Granulocytes Count 0.050 X10^3/uL (0.0-0.0); Mean Corp Hgb Conc 30.5 g/dL (32-36); Mean Corpuscular Volume 103.8 fL (81-99); Mean Platelet Vol. 10.5 fl (6.2-12.0); NRBC Flagged by Analyzer 0 % (0-5); POSITIVE DIFFERENTIAL YES; Platelet Count 178 K/mm3 (150-450); RBC Distribution Width CV 13.7 % (11.6-14.6); RBC Distribution Width SD 52.0 fl (35.1-43.9); Red Blood Count 3.19 M/mm3 (4.2-5.4); White Blood Count 5.5 K/mm3 (4.4-11.0)
[2025-01-08 06:34] LABS: Anion Gap 15 (5-15); BUN 64 mg/dL (4-19); BUN/Creat Ratio 29.1 RATIO (10-20); Calcium,Total 8.4 mg/dL (7.6-11.0); Carbon Dioxide 31.3 mmol/L (21.0-32.0); Chloride 94 mmol/L (98-108); Estimated Creatinine Clearance 29.86 ml/min (50-250); Glucose 125 mg/dL (70-99); Potassium 4.1 mmol/L (3.3-5.1)
[2025-01-08 06:58] VITALS: PULSE 65; RESP 16; O2SAT 95
[2025-01-08] MEDS: Budesonide Respules 0.5 MG/2 ML AMPUL.NEB. INHALATION (06:58)
[2025-01-08 07:25] VITALS: BP 145/69; PULSE 63; RESP 17; TEMP 36.5; O2SAT 94
[2025-01-08] MEDS: Smz/Tmp Ds Tablet 0.5 TABLET PO ×2 (07:30→16:05)
[2025-01-08 09:10] VITALS: PULSE 69
[2025-01-08] MEDS: APIXABAN 5 MG TABLET PO (09:11)
--- NOTE | 2025-01-08 13:59 | DCINST_ITS ---
Discharge Instructions DC O2, CPAP, BIPAP needs Home O2 Discharge instructions: Yes Type of respiratory needs?: Oxygen Oxygen frequency: Continuous Continuous oxygen liters per minute: 2 Dressing / Incision Discharge Activity: Return to Normal Activity Weight Bearing Status: Weight bearing as tolerated Dressing / Incision Call your doctor if you observe: Fever of 101 or Higher, Shortness of breath, Di zziness, Swelling in the ankles and Chest pain Follow Up Care Test Results: Test results from this visit will be discussed in further detail at your follow- up appointment, if applicable. Discharge Plan Admission Admit Date/Time: 01/05/25 11:13 Primary Reason for Your Visit: acute on chronic hypoxic and hypercapnic respiratory failure Attending Provider: Laura Sol Primary Care Provider: Matthew Valdivia Instructions Patient Instructions: Coping with Heart Failure, COPD Controlled Breathing Dc Discharge Orders/Prescriptions Prescriptions: New furosemide 40 mg Tablet 40 mg PO DAILY Qty: 30 2RF levofloxacin 750 mg Tablet 750 mg PO Q48 Qty: 3 0RF metoprolol tartrate 25 mg Tablet 12.5 mg PO BID Qty: 30 2RF prednisone 20 mg tablet 40 mg PO DAILY 5 Days Qty: 10 0RF Continued gemfibrozil 600 MG tablet 600 mg PO BID albuterol sulfate 90 mcg/actuation HFA aerosol inhaler 2 puff inhalation Q6H PRN PRN (Reason: wheezing) budesonide-formoterol [Breyna] 80-4.5 mcg/actuation HFA aerosol inhaler 2 puff inhalation Q12H gabapentin 300 mg capsule 300 mg PO Q12H sennosides-docusate sodium [Senna with Docusate Sodium] 8.6-50 mg tablet 2 tab-cap PO BID PRN (Reason: constipation) Eliquis 5 mg tablet 5 mg PO BID Discontinued sulfamethoxazole-trimethoprim 400-80 mg tablet 1 tab PO BID Referrals / Follow Up: Matthew Valdivia DO [Primary Care Provider] - Within 1 Week Disposition Disposition (needs filled in before D/C Order can be placed): Home, Self Care
--- NOTE | 2025-01-08 14:01 | DS.PCM_ITS ---
Providers Date of Admission: 01/05/25 Date of Discharge: 01/08/25 Primary Care Physician: Dr. Matthew Valdivia, DO Consultations 01/05/25 18:43 Consult: Construction Technician / Pulmonary Medicine Routine Consulting Provider: Intensivists/Pulmonary Med Reason for Consult: acute on chronic hypoxic and hypercapnic respiratory failure EMERGENT Consult: No MD Notified: Yes Date Notified: 01/05/25 Time Notified: 18:43 Method of Notification: Answering Service Reason For Visit: ACUTE ON CHRONIC HYPOXIC & HYPERCAPNIC RESPIRATORY Diagnosis Discharge Diagnosis (1) Increasing shortness of breath: Status: Acute Code(s): R06.02 - Shortness of breath (2) Right lower lobe pneumonia: Status: Acute Code(s): J18.9 - Pneumonia, unspecified organism (3) Hypoxia: Status: Acute Code(s): R09.02 - Hypoxemia Plan #Acute on chronic hypoxic and hypercapnic respiratory failure due to COPD exacerbation as well as fluid overload and pneumonia * remains on 3L of oxygen. * Currently on IV levofloxacin and IV Solu-Medrol as well as IV Lasix. * Critical care on board. Breathing treatments and bronchodilators. Titrate oxygen to maintain saturation above 90%. * Chest x-ray showed interstitial and alveolar edema as well as cardiac enlargement. CT of the chest done without contrast as she is already on blood thinners showed bilateral small pleural effusions right greater than left with consolidation in the right lower lobe and possible atelectasis in the left lower lobe as well as minimal pericardial thickening * Breathing treatments bronchodilators. Titrate oxygen to maintain saturation above 90%. * Urine for strep and Legionella negative * In cumulative negative balance by 5.32 L. * #Paroxysmal afib * new onset. Developed afib with RVR overnight and received a cardizem bolus. * Started on oral metoprolol. * 2D echo done on 10/31/2024 showed: Mild concentric left ventricular hypertrophy with EF of 65% and stage I diastolic dysfunction with severely enlarged left atrium and RVSP of 47 mmHg. * continue eliquis and oral metoprolol 12.5mg bid. * TSH WNL * #History of PE: On Eliquis #Hyperlipidemia: On gemfibrozil #History of peripheral neuropathy: On gabapentin. History of CKD stage III: Cr is down to 1.96 today. This is up from 1.79 yesterday but is around previous baselines. Will monitor. DVT prophylaxis: Already on Eliquis CODE STATUS: DNR CCA no intubation * Disposition: Anticipated discharge by tomorrow if patient remains stable in
--- NOTE | 2025-01-08 14:01 | PCM.DC.SUM ---
Providers Date of Admission: 01/05/25 Date of Discharge: 01/08/25 Primary Care Physician: Dr. Matthew Valdivia, DO Consultations 01/05/25 18:43 Consult: Dry Placer Machine Operator / Pulmonary Medicine Routine Consulting Provider: Intensivists/Pulmonary Med Reason for Consult: acute on chronic hypoxic and hypercapnic respiratory failure EMERGENT Consult: No MD Notified: Yes Date Notified: 01/05/25 Time Notified: 18:43 Method of Notification: Answering Service Reason For Visit: ACUTE ON CHRONIC HYPOXIC & HYPERCAPNIC RESPIRATORY Diagnosis Discharge Diagnosis (1) Increasing shortness of breath: Status: Acute Code(s): R06.02 - Shortness of breath (2) Right lower lobe pneumonia: Status: Acute Code(s): J18.9 - Pneumonia, unspecified organism (3) Hypoxia: Status: Acute Code(s): R09.02 - Hypoxemia Plan #Acute on chronic hypoxic and hypercapnic respiratory failure due to COPD exacerbation as well as fluid overload and pneumonia remains on 3L of oxygen. Currently on IV levofloxacin and IV Solu-Medrol as well as IV Lasix. Critical care on board. Breathing treatments and bronchodilators. Titrate oxygen to maintain saturation above 90%. Chest x-ray showed interstitial and alveolar edema as well as cardiac enlargement. CT of the chest done without contrast as she is already on blood thinners showed bilateral small pleural effusions right greater than left with consolidation in the right lower lobe and possible atelectasis in the left lower lobe as well as minimal pericardial thickening Breathing treatments bronchodilators. Titrate oxygen to maintain saturation above 90%. Urine for strep and Legionella negative In cumulative negative balance by 5.32 L. #Paroxysmal afib new onset. Developed afib with RVR overnight and received a cardizem bolus. Started on oral metoprolol. 2D echo done on 10/31/2024 showed: Mild concentric left ventricular hypertrophy with EF of 65% and stage I diastolic dysfunction with severely enlarged left atrium and RVSP of 47 mmHg. continue eliquis and oral metoprolol 12.5mg bid. TSH WNL #History of PE: On Eliquis #Hyperlipidemia: On gemfibrozil #History of peripheral neuropathy: On gabapentin. History of CKD stage III: Cr is down to 1.96 today. This is up from 1.79 yesterday but is around previous baselines. Will monitor. DVT prophylaxis: Already on Eliquis CODE STATUS: DNR CCA no intubation Disposition: Anticipated discharge by tomorrow if patient remains stable in light of new onset A-fib. Medications at Discharge Home Medications gemfibrozil 600 mg tablet 600 mg PO BID cholesteol 03/03/19 apixaban 5 mg tablet (Eliquis) 5 mg PO BID blood thinner 01/21/24 albuterol sulfate 90 mcg/actuation aerosol inhaler 2 puff inhalation Q6H PRN PRN wheezing 01/05/25 budesonide-formoterol HFA 80 mcg-4.5 mcg/actuation aerosol inhaler (Breyna) 2 puff inhalation Q12H COPD 01/05/25 gabapentin 300 mg capsule 300 mg PO Q12H 01/05/25 sennosides 8.6 mg-docusate sodium 50 mg tablet (Senna with Docusate Sodium) 2 tab-cap PO BID PRN constipation 01/05/25 furosemide 40 mg tablet 40 mg PO DAILY #30 tabs 01/08/25 levofloxacin 750 mg tablet 750 mg PO Q48 #3 tabs 01/08/25 metoprolol tartrate 25 mg tablet 12.5 mg (1/2 x 25 mg) PO BID #30 tabs 01/08/25 prednisone 20 mg tablet 40 mg (2 x 20 mg) PO DAILY 5 days #10 tabs 01/08/25 Hospital Course Operations None Procedures None Summary of Care Provided Minutes Spent on Discharge: 47 Hospital Course: DESIRE CHAUDHRY, is a 74 F with a PMH as outlined who was admitted via the ED on 01/05/2025 with a complaint of shortness of breath. She is chronically on 2L of oxygen at home, and says she had recently been bumped up to 3L. She started feeling short of breath for a couple of days prior to admission. She usually wears oxygen at home but her shortness of breath was not improving. She denied any cough, chest pain, wheezing, nausea or vomiting, palpitations or any other symptoms. She called the EMS who found her to be saturating in the 30s when they arrived. Vitals in the ED were BP of 153/65, ME of 72, RR of 20 and temp of 96.8F. She was saturating at 100% on BIPAP. CBC showed hb of 10.1, wbc of 5.5 and platelets of 153. Chemistry showed sodium of 141, potassium of 4.9 and bicarb of 31.4. Cr was 1.79 and initial troponin was 37. ABG showed pH of 7.12, pCO2 of 97.8 as well as pO2 of 57. She was admitted to be managed for acute on chronic hypoxic and hypercapnic respiratory failure due to COPD exacerbation and possible pneumonia. CXR showed cardiac enlargement with interstitial and alveolar edema. She was started on diuresis with IV Lasix and also started on IV Levophed floxacillin as well as IV Solu-Medrol. Pulmonology was consulted. Hospital course was complicated by new onset A-fib for which she was started on p.o. metoprolol. The A-fib subsequently resolved and she converted to normal sinus rhythm. Her shortness of breath improved and she was weaned down to her baseline oxygen levels. She felt much better and was discharged home on 01/08/2025. Lasix 40 mg daily, p.o. metoprolol 12.5 mg twice daily. She was already on Eliquis 5 mg daily and was continued on this. She was discharged with a 3 day course of PO levaquin 750mg [id number]. She is to follow up with her PCP and income auditor within 1-2 weeks. Patient seen and examined prior to discharge. She felt much better today and had no complaints. She had an uneventful night. Review of systems otherwise negative. Her shortness of breath is improved. Labs and vitals reviewed. Home medication reviewed and reconciled. Physical Exam Const alert, oriented x3 and no apparent distress Constitutional Narrative: Class II obesity. General Appearance: cooperative and comfortable HEENT normocephalic, head/scalp atraumatic and hearing grossly normal bilaterally Mouth: oral and palatal mucosa normal Eyes PERRL, EOMs intact bilaterally and conjunctivae normal Neck no lymphadenopathy and supple Resp Resp Narrative: Mildly diminished breath sounds bibasilarly. No wheezes or crackles. On 2L of oxygen by nasal cannula. Cardio regular rate, regular rhythm, S1 normal heart sound, S2 normal heart sound and no murmurs GI normal to inspection, nondistended, normoactive bowel sounds, soft to palpation, non-tender and non-distended Extremity normal to inspection, full ROM, normal capillary refill and no clubbing, cyanosis or edema General Extremity: no tenderness to palpation of joints or extremities Skin General Skin Exam: no breakdown Neuro oriented x3, CN's II-XII intact bilaterally and moves all extremities Sensorium / Orientation: awake and alert Motor Exam: strength 5/5 throughout and general weakness Psych thought process normal, cooperative and affect normal Appearance: appropriate Weight / BMI Weight Weight: 258 lb 13.163 oz Body Mass Index (BMI) 40.5 ABG / Lab / Microbiology Data 01/08/25 05:33 01/08/25 05:33 Laboratory: Laboratory Results - last 24 hr 01/08/25 05:33: WBC 5.5, RBC 3.19 L, Hgb 10.1 L, Hct 33.1 L, MCV 103.8 H, MCH 31.7, MCHC 30.5 L, RDW Std Deviation 52.0 H, RDW Coeff of Alverto 13.7, Plt Count 178, MPV 10.5, Immature Gran % (Auto) 0.900, Neut % (Auto) 87.5 H, Lymph % (Auto) 6.7 L, Alexander % (Auto) 4.7, Eos % (Auto) 0.0, Baso % (Auto) 0.2, Absolute Neuts (auto) 4.8, Absolute Lymphs (auto) 0.37 L, Nucleated RBC % 0, Sodium 140, Potassium 4.1, Chloride 94 L, Carbon Dioxide 31.3, Anion Gap 15, BUN 64 H, Creatinine 2.19 H, Estim Creat Clear Calc 29.86 L, Est GFR (MDRD) Non-Af 23 L, BUN/Creatinine Ratio 29.1 H, Glucose 125 H, Calcium 8.4 Microbiology: Microbiology 01/05/25 20:18 Mucosa - Nasopharyngeal Respiratory Panel (PCR) - Final 01/05/25 15:15 Urine, Random Legionella Antigen - Final 01/05/25 15:15 Urine, Random Streptococcus pneumoniae Antigen (M - Final D/C Instructions Discharge Activity: Return to Normal Activity Weight Bearing Status: Weight bearing as tolerated Call your doctor if you observe: Fever of 101 or Higher, Shortness of breath, Dizziness, Swelling in the ankles and Chest pain DC O2, CPAP, BIPAP Needs Home O2 Discharge instructions: Yes Type of respiratory needs?: Oxygen Oxygen frequency: Continuous Continuous oxygen liters per minute: 2 DC home with Oxygen: Yes Home O2 MD Review: I have reviewed the oxygen testing, and the patient qualifies for home oxygen equipment and portability. The patient is mobile in the home and the community. Meaningful Use Info Meaningful Use Meaningful Use Diagnoses (Choose all that apply): CHF CHF NEGAR/ARB ordered at discharge?: No Reason NEGAR/ARB not ordered?: Not indicated Documented LVEF (%): 65 Discharge Plan Admission Admit Date/Time: 01/05/25 11:13 Primary Reason for Your Visit: acute on chronic hypoxic and hypercapnic respiratory failure Attending Provider: Laura Sol Primary Care Provider: Matthew Valdivia Instructions Patient Instructions: Coping with Heart Failure, COPD Controlled Breathing Dc Discharge Orders/Prescriptions Prescriptions: New furosemide 40 mg Tablet 40 mg PO DAILY Qty: 30 2RF levofloxacin 750 mg Tablet 750 mg PO Q48 Qty: 3 0RF metoprolol tartrate 25 mg Tablet 12.5 mg PO BID Qty: 30 2RF prednisone 20 mg tablet 40 mg PO DAILY 5 Days Qty: 10 0RF Continued gemfibrozil 600 MG tablet 600 mg PO BID albuterol sulfate 90 mcg/actuation HFA aerosol inhaler 2 puff inhalation Q6H PRN PRN (Reason: wheezing) budesonide-formoterol [Breyna] 80-4.5 mcg/actuation HFA aerosol inhaler 2 puff inhalation Q12H gabapentin 300 mg capsule 300 mg PO Q12H sennosides-docusate sodium [Senna with Docusate Sodium] 8.6-50 mg tablet 2 tab-cap PO BID PRN (Reason: constipation) Eliquis 5 mg tablet 5 mg PO BID Discontinued sulfamethoxazole-trimethoprim 400-80 mg tablet 1 tab PO BID Referrals / Follow Up: Matthew Valdivia DO [Primary Care Provider] - Within 1 Week Disposition Disposition (needs filled in before D/C Order can be placed): Home, Self Care Charges/Coding Visit Charges Inpatient E&M: 65286 Disch Hosp >30min
--- NOTE | 2025-01-08 14:33 | CASEMGMT ---
KENYA PECK in to update patient and Niece Dena of discharge. KENYA PECK discussed HHC for therapy at [facility], patient declines HHC at this time. KENYA PECK encourages patient to follow up with [facility] if patient would need HHC in the future. Patient and niece state they will need transport setup for discharge. Patient and niece state they have no further questions or concerns. CM setup transport with Physician at 1730. KENYA PECK updated patient, niece, and staff. OLIVER sales planning coordinator to update [facility] of transport time.
--- NOTE | 2025-01-08 14:33 | CASEMGMT ---
KENYA PECK in to update patient and Niece Dena of discharge. KENYA PECK discussed HHC for therapy at [facility], patient declines HHC at this time. KENYA PECK encourages patient to follow up with [facility] if patient would need HHC in the future. Patient and niece state they will need transport setup for discharge. Patient and niece state they have no further questions or concerns. CM setup transport with Physician at 1730. KENYA PECK updated patient, niece, and staff. OLIVER director traffic and planning to update [facility] of transport time.
--- NOTE | 2025-01-08 14:43 | PHA.DC_ITS ---
Pharmacy [facility] Counseling Pharmacy Service has performed discharge medication reconciliation and counseling for this patient. 1. FUROSEMIDE 40MG PO DAILY 2. LEVOFLOXACIN 750MG PO Q48 X 3 DOSES 3. METOPROLOL TARTRATE 12.5MG PO BID 4. PREDNISONE 40MG PO X 5 DAYS The patient's discharge medication list was reviewed for discrepancies and discrepancies were resolved. The patient was counseled on the following discharge medications and changes in medications for homegoing were reviewed. The Reason for Use, instructions for use, and potential side effects were reviewed for all new medications. The patient's questions regarding all of their medications were answered. The patient was able to verbally demonstrate an understanding of their discharge medications. Medications at Discharge Home Medications gemfibrozil 600 mg tablet 600 mg PO BID cholesteol 03/03/19 apixaban 5 mg tablet (Eliquis) 5 mg PO BID blood thinner 01/21/24 albuterol sulfate 90 mcg/actuation aerosol inhaler 2 puff inhalation Q6H PRN PRN wheezing 01/05/25 budesonide-formoterol HFA 80 mcg-4.5 mcg/actuation aerosol inhaler (Breyna) 2 puff inhalation Q12H COPD 01/05/25 gabapentin 300 mg capsule 300 mg PO Q12H 01/05/25 sennosides 8.6 mg-docusate sodium 50 mg tablet (Senna with Docusate Sodium) 2 tab-cap PO BID PRN constipation 01/05/25 furosemide 40 mg tablet 40 mg PO DAILY #30 tabs 01/08/25 levofloxacin 750 mg tablet 750 mg PO Q48 #3 tabs 01/08/25 metoprolol tartrate 25 mg tablet 12.5 mg (1/2 x 25 mg) PO BID #30 tabs 01/08/25 prednisone 20 mg tablet 40 mg (2 x 20 mg) PO DAILY 5 days #10 tabs 01/08/25
--- NOTE | 2025-01-08 14:46 | CASEMGMT ---
Addendum entered by Yohana Alvares 01/08/25 14:54: Fax confirmation rec'd. Yohana Alvares DC Planning Asst. Original Note: Discharge Planning Discharge Instructions and transport time sent to [facility] [place]. Yohana Alvares DC Planning Asst.
--- NOTE | 2025-01-08 16:57 | NURSING ---
report called to Marilee prajapati [place]
--- NOTE | 2025-01-08 16:57 | NURSING ---
report called to Marilee prajapati [place]
== END 2025-01-08 16:59 | disposition home or self-care (01) | DRG 189 ==
LOC: ED 11:19 → PCU 11:26
PROVIDERS: Family Medicine; Admitting Provider Student in an Organized Health Care Education/Training Program; Emergency Provider Emergency Medicine; PCP Family Medicine; Visit Provider Student in an Organized Health Care Education/Training Program
DX: J96.21 Acute and chronic respiratory failure with hypoxia (principal); I50.33 Acute on chronic diastolic (congestive) heart failure; J18.9 Pneumonia, unspecified organism; E66.2 Morbid (severe) obesity with alveolar hypoventilation; I13.0 Hypertensive heart and chronic kidney disease with heart failure and stage 1 through stage 4 chronic kidney disease, or unspecified chronic kidney disease; J44.0 Chronic obstructive pulmonary disease with (acute) lower respiratory infection; Z68.41 Body mass index [BMI] 40.0-44.9, adult; J44.1 Chronic obstructive pulmonary disease with (acute) exacerbation; Z66 Do not resuscitate; Z99.81 Dependence on supplemental oxygen; N18.30 Chronic kidney disease, stage 3 unspecified; I48.0 Paroxysmal atrial fibrillation; E78.5 Hyperlipidemia, unspecified; G62.9 Polyneuropathy, unspecified; K59.00 Constipation, unspecified; J96.22 Acute and chronic respiratory failure with hypercapnia; G89.29 Other chronic pain; Z86.711 Personal history of pulmonary embolism; Z86.718 Personal history of other venous thrombosis and embolism; Z79.01 Long term (current) use of anticoagulants; Z86.73 Personal history of transient ischemic attack (TIA), and cerebral infarction without residual deficits; Z87.891 Personal history of nicotine dependence
CPT/HCPCS: 36415; 36600; 71046; 71250; 80048; 82803; 83735; 84443; 84484; 85025; 87449; 87633; 93005; 94002; 94003; 94640; 94762; 97802; 99285; A4216; J1938

== ENCOUNTER 2025-04-23 10:16 | Inpatient (IN) | payer MEDICARE, OTHER, SELFPAY ==
[2025-04-23] VITALS (15 sets, daily range): BP systolic 98–139; BP diastolic 53–64; PULSE 53–61; RESP 12–26; TEMP 36.5–37.1; O2SAT 87–97; BMI 42.3; BMI 42.1
--- NOTE | 2025-04-23 10:37 | EKG12_ITS ---
Test Reason : WEAKNESS Blood Pressure : */* mmHG Vent. Rate : 53 BPM Atrial Rate : 53 BPM P-R Int : 186 ms QRS Dur : 86 ms QT Int : 422 ms P-R-T Axes : 69 20 78 degrees QTcB Int : 395 ms Sinus bradycardia with Premature atrial complexes Nonspecific ST abnormality Abnormal ECG Confirmed by URIEL ROMERO, TANA ([id number]), editorial clerk NAMITA OVIEDO ([id number]) on 04/25/2025 9:08:45 AM Referred By: NENO Confirmed By: TANA TREVINO MD
--- NOTE | 2025-04-23 10:38 | ED.VIS.DYS ---
HPI History of Present Illness Chief Complaint: Shortness of Breath Informant: patient and EMS Narrative Narrative: Patient is a 74-year-old female with a history of COPD and blood clots, presenting [facility] a [facility] for evaluation of hypoxia and decreased mobility. - Patient was [facility] from the [facility] after routine vital sign check revealed SpO2 of 89%; she was reportedly not moving around as well as usual and had difficulty getting to the bathroom. - Patient is a mouth breather and uses 2 L/min O2 at baseline. - Denies increased dyspnea, chest discomfort, or cough. - Reports feeling weak and fatigued for the past 2-3 days. - Experienced a back spasm 3-4 days ago while sitting in a chair, lasting about an hour; denies recurrence. - Denies abdominal discomfort, emesis, or diarrhea. - Denies orthopnea. - Has not been using her prescribed inhaler. - Reports mild leg swelling, which is chronic and attributed to a bad leg. - On Eliquis for a history of blood clots. - Denies known cardiac issues. - Underwent back surgery 20 years ago, complicated by blood clots. - Received cortisone injections for knee and shoulder issues. [facility] Medical History Chronic anticoagulation Chronic anemia Constipation Emphysema lung Thrombocytopenia Stroke/cerebrovascular accident History of pulmonary embolism HLD (hyperlipidemia) Chronic back pain COPD (chronic obstructive pulmonary disease) HTN (hypertension) Home Medications ?Medication ?Instructions ?Recorded ?Last Taken ?Type gemfibrozil 600 mg tablet 600 mg PO BID cholesteol 03/03/19 10/31/24 History apixaban 5 mg tablet (Eliquis) 5 mg PO BID blood thinner 01/21/24 10/31/24 History albuterol sulfate 90 mcg/actuation 2 puff inhalation Q6H PRN PRN 01/05/25 Unknown History aerosol inhaler wheezing budesonide-formoterol HFA 80 2 puff inhalation Q12H COPD 01/05/25 Unknown History mcg-4.5 mcg/actuation aerosol inhaler (Breyna) gabapentin 300 mg capsule 300 mg PO Q12H 01/05/25 Unknown History sennosides 8.6 mg-docusate sodium 2 tab-cap PO BID PRN constipation 01/05/25 Unknown History 50 mg tablet (Senna with Docusate Sodium) furosemide 40 mg tablet 40 mg PO DAILY #30 tabs 01/08/25 Unknown Rx acetaminophen 325 mg capsule 325 mg PO Q4H PRN fever or pain 04/23/25 Unknown History duloxetine 30 mg capsule,delayed 30 mg PO DAILY 04/23/25 Unknown History release loperamide 2 mg tablet 2 mg PO Q6H PRN loose stool 04/23/25 Unknown History (Anti-Diarrheal (loperamide)) magnesium hydroxide 400 mg/5 mL 30 ml PO PRN 04/23/25 Unknown History oral suspension (Gentle Laxative (magnesium hydroxide)) metoprolol tartrate 25 mg tablet 25 mg PO BID 04/23/25 Unknown History Allergy/AdvReac Type Severity Reaction Status Date / Time No Known Allergies Allergy Verified 04/23/25 10:22 Family History Mother Heart disease Father Heart disease Surgical History Previous back surgery Social History housing: assisted living facility Smoking Status: Former smoker alcohol intake: never substance use type: does not use ROS ROS ED Constitutional Constitutional ED: Reports fatigue; Denies chills or fever(s) Eyes Eyes: Denies change in vision or diplopia ENT ENT ED: Denies rhinorrhea or sore throat Cardiovascular Cardiovascular: Reports leg edema; Denies chest pain or palpitations Respiratory/Chest Respiratory/Chest: Denies cough or dyspnea Gastrointestinal Gastrointestinal: Denies abdominal pain, diarrhea, nausea or vomiting Genitourinary Genitourinary ED: Denies dysuria or hematuria Musculoskeletal Musculoskeletal: Denies back pain or neck pain Integumentary Denies abscess or rash Neurologic Neurologic: Denies headache(s), paresthesias or weakness Psychiatric Psychiatric: Denies anxiety or suicidal thoughts Hematologic/Lymphatic Hematologic/Lymphatic: Reports easy bleeding and easy bruising EXAM Physical Exam Const Vital Signs: 04/23/25 10:17 04/23/25 10:22 04/23/25 10:37 Temperature 98.2 F 98.2 F Temperature Source Oral Oral Pulse Rate 58 L 55 L Respiratory Rate 16 19 H Respiratory Pattern Blood Pressure 121/53 H 121/53 H Blood Pressure Mean 75 75 Pulse Ox 90 96 Oxygen Delivery Method Nasal Cannula Nasal Cannula Nasal Cannula Oxygen Flow Rate (L/min) 4 4 2 04/23/25 11:04 04/23/25 11:22 Temperature 97.7 F L Temperature Source Temporal Pulse Rate 60 57 L Respiratory Rate 16 20 H Respiratory Pattern Normal Blood Pressure 110/57 L Blood Pressure Mean 74 Pulse Ox 97 Oxygen Delivery Method Bi-pap Oxygen Flow Rate (L/min) Positive well nourished, well developed and obese General Appearance ED: well developed and NAD Nutritional Appearance: obese HEENT Reports moist mucous membranes normocephalic and atraumatic Eyes PERRL and EOMs intact bilaterally Neck full ROM, no lymphadenopathy, supple, no meningeal signs and no JVD Resp normal respiratory effort Resp Narrative: Diffuse mild expiratory wheezes. Diffuse mild expiratory rhonchi. Conversive in full sentences Cardio regular rate, regular rhythm and no murmurs GI non-tender and non-distended Auscultation: normoactive bowel sounds Palpation: soft Back/Spine no CVA tenderness General Back: other FROM Extremity normal to inspection General Extremety ED: Yes edema; Negative for pulses abnormal or tenderness General Extremity: edema bilateral lower extremity Details: moderate (With changes of chronic stasis dermatitis bilaterally no tenderness); Negative for pulses abnormal Neuro oriented x3, CN's II-XII intact bilaterally and no sensory deficits noted Sensorium / Orientation: awake and alert Motor Exam: general weakness Skin no rashes or lesions noted and no wounds MDM MDM MDM Narrative Medical decision making narrative: Assessment: The patient is a 74-year-old female with PMH of COPD, chronic kidney disease, prior venous thromboembolism on Eliquis, and recurrent hypercapnic episodes, presenting from a nursing facility for hypoxia noted during routine vitals and progressive fatigue with decreased mobility since /Wednesday. She is DNR-CCA with no intubation per prior directive confirmed with daughter. ABG shows pH 7.15, PCO2 86, HCO3 30 indicating acute on chronic hypercapnic respiratory acidosis. Chest X-ray demonstrates mild cephalization supportive of congestive heart failure, and proBNP 7 is roughly double her October baseline despite stable renal function, suggesting acute on chronic diastolic CHF exacerbation. Troponin 35 and non-ischemic EKG make ACS unlikely. Overall picture is acute on chronic respiratory failure with hypoxia and hypercapnia attributable to COPD exacerbation, complicated by volume overload from diastolic CHF. In talking with the niece the patient did follow-up with pulmonary, but decided not to do the sleep study because she did not want to do CPAP/BiPAP at night. Also, since the patient has been feeling weak the last 3 to 4 days, she been having trouble getting up and getting to the bathroom so she stopped taking her every other day furosemide, which may also be contributing to her mild pulmonary edema. Plan: - Duo-neb breathing treatment administered for wheezes and to improve oxygenation; after cardiac workup showing mild exacerbation of diastolic CHF, furosemide also ordered - Maintained on home O2 2 L nasal cannula; avoided higher flows to limit CO2 retention - Confirmed and documented DNR-CCA (no intubation) status with niece - Accepted for admission to PCU for non-invasive ventilation as needed and management of acute on chronic respiratory failure and CHF exacerbation Diagnostics: - ABG: pH 7.15, PCO2 86 mmHg, HCO3 30 mEq/L, base excess 1.4 ? acute on chronic hypercapnia - Chest X-ray: mild cephalization consistent with CHF - proBNP 2237 pg/mL (elevated above prior baseline) - Troponin 35 ng/L, unchanged from prior - EKG interpreted by [facility]: no ST-segment elevation or ischemic changes Consultations: - Dr. Jolley, Critical Care ? agrees with PCU admission; comfortable without intubation given DNR-CCA - Hospitalist service ? accepted patient to PCU for further management History & Record Review Additional record(s) reviewed:: Prior labs and Other (Prior echo 10/31/2024 showing stage I diastolic dysfunction but normal EF) Lab Data Attestation: I reviewed the patient's lab results. Labs: Laboratory Results - last 24 hr 04/23/25 10:40 WBC 5.6 RBC 3.15 L Hgb 10.2 L Hct 33.4 L MCV 106.0 H MCH 32.4 H MCHC 30.5 L RDW Std Deviation 59.8 H RDW Coeff of Alverto 15.5 H Plt Count 160 MPV 10.7 Immature Gran % (Auto) 2.700 H Neut % (Auto) 80.4 H Lymph % (Auto) 8.3 L [place] % (Auto) 7.9 Eos % (Auto) 0.0 Baso % (Auto) 0.7 Absolute Neuts (auto) 4.5 Absolute Lymphs (auto) 0.46 L Nucleated RBC % 0 Sodium 141 Potassium 5.0 Chloride 105 Carbon Dioxide 26.5 Anion Gap 10 BUN 41 H Creatinine 1.74 H Estim Creat Clear Calc 38.47 L Est GFR (MDRD) Non-Af 30 L BUN/Creatinine Ratio 23.6 H Glucose 111 H Calcium 9.1 Troponin T High Sens 35 H NT pro BNP II 2237 H ABG Data ABG results: ABG 04/23/25 11:16 Specimen Type ART Sample Site L Radial pH 7.15 L* Bicarbonate Actual 30.2 H Total CO2 33 Base Excess 1 O2 Saturation 73 L O2 % 2.0 ABG pCO2 85.9 H* ABG pO2 51 L Noman Test Positive O2 Delivery Device Cannula Vent Mode Not entered Crit Call To/Read Back Yes Blood Gas Notified Whom NENO Blood Gas Notified Time 11:18:11 Radiography Diagnostic Testing: Clinical Impression(s) from Imaging Studies Chest X-Ray 04/23/25 11:00 IMPRESSION: Cardiomegaly and mild CHF with blunting of the right costophrenic angle and mild bibasilar atelectasis. Reading Location: [place] [id number] Rhythm Strip Rhythm Strip: Sinus Rhythm Rate: 55 Ectopy: PAC(s) EKG Initial EKG: Attestation: I personally reviewed and interpreted this EKG as follows: Interpretation: Sinus Rhythm and No Acute Injury Pattern Comments: pac. Normal intervals and normal axis. Management Discussion w/another healthcare provider: Hospitalist and Environmental Remediation Engineer (Pulmonary Dr. Shaw for PCU non-ICU admission on BiPAP) Critical Care Time Critical Care Time: Yes Critical care time (excluding procedures): 30-74 minutes (33 min), Including time spent:, Discussing w/Patient &/or Family/Manager Corporate Strategy, Discussing w/Consultants, Arranging Admission or Transfer and Performing Direct Patient Care at Bedside Discharge Plan Dx/Rx/DC Orders Clinical Impression: Acute on chronic respiratory failure with hypoxia and hypercapnia, COPD (chronic obstructive pulmonary disease), CKD (chronic kidney disease), Acute on chronic diastolic (congestive) heart failure Disposition Disposition: [facility]
[2025-04-23 10:50] LABS: Hematocrit 33.4 % (37-47); Hemoglobin 10.2 g/dL (12.0-15.0); Immature Granulocytes Count 0.150 X10^3/uL (0.0-0.0); Mean Corp Hgb Conc 30.5 g/dL (32-36); Mean Corpuscular Volume 106.0 fL (81-99); Mean Platelet Vol. 10.7 fl (6.2-12.0); NRBC Flagged by Analyzer 0 % (0-5); POSITIVE DIFFERENTIAL YES; Platelet Count 160 K/mm3 (150-450); RBC Distribution Width CV 15.5 % (11.6-14.6); RBC Distribution Width SD 59.8 fl (35.1-43.9); Red Blood Count 3.15 M/mm3 (4.2-5.4); White Blood Count 5.6 K/mm3 (4.4-11.0)
--- NOTE | 2025-04-23 11:00 | RAD_ITS ---
PROCEDURE: CHEST 1 VIEW (PORTABLE) 04/23/2025 REASON FOR EXAM: SOB TECHNIQUE: Frontal view of the chest. COMPARISON: January 05, 2025. FINDINGS: Hardware: EKG electrodes are seen. Marked degree of dextroconvex scoliosis with evidence of prior screw and anjel fixation. Heart: Cardiomegaly. Lungs: Vascular congestion and mild CHF. Small right pleural effusion with the bibasilar atelectasis. Bones: Marked dextroscoliosis and prior screw and anjel fixation. RAD/Chest 1 View (Portable) IMPRESSION: Cardiomegaly and mild CHF with blunting of the right costophrenic angle and mil d bibasilar atelectasis. Reading Location: [place] [id number]
[2025-04-23 11:22] LABS: Allen Test Positive; Base Excess 1 mmol/L (-2 to +2); FI02 2.0; PO2 51 mmHG (75-100); SITE L Radial; SO2 73 % (94-98)
[2025-04-23 11:27] LABS: Anion Gap 10 (5-15); BUN 41 mg/dL (4-19); BUN/Creat Ratio 23.6 RATIO (10-20); Calcium,Total 9.1 mg/dL (7.6-11.0); Carbon Dioxide 26.5 mmol/L (21.0-32.0); Chloride 105 mmol/L (98-108); Estimated Creatinine Clearance 38.47 ml/min (50-250); Glucose 111 mg/dL (70-99); Potassium 5.0 mmol/L (3.3-5.1); Pro- Brain NATRIURETIC PEPTIDE 2237 pg/mL (<=900); Troponin T High Sensitivity 35 ng/L (<=14)
--- NOTE | 2025-04-23 11:57 | HP.PCM.HOS_ITS ---
HPI - General General Date of Admission: 04/23/25 Date of Service: 04/23/25 Chief Complaint: Shortness of breath HPI Narrative DESIRE CHAUDHRY, is a 74 F with past medical history sent in for COPD, class III obesity with BMI of 42, suspected sleep apnea chronic congestive heart failure who presented to the emergency department with shortness of breath. Patient could not provide much history given her lethargy history was provided by niece her POA who was with her by the bedside. Patient is apparently a resident at time [facility] and was found to have significant hypoxia and decreased mobility. Patient had apparently not been using her breathing treatment and diuretic therapy as previously diagnosed. In the emergency department patient was found to be significantly hypoxic with respiratory acidosis and hypercapnic. Placed on noninvasive ventilation and admitted to regular nursing floor for further management [facility] Medical History Chronic anticoagulation Chronic anemia Constipation Emphysema lung Thrombocytopenia Stroke/cerebrovascular accident History of pulmonary embolism HLD (hyperlipidemia) Chronic back pain COPD (chronic obstructive pulmonary disease) HTN (hypertension) Home Medications ?Medication ?Instructions ?Recorded ?Last Taken ?Type gemfibrozil 600 mg tablet 600 mg PO BID cholesteol 09/1610/31/24 History apixaban 5 mg tablet (Eliquis) 5 mg PO BID blood thinn er 01/21/24 10/31/24 History albuterol sulfate 90 mcg/actuation 2 puff inhalation Q 6H PRN PRN 01/05/25 Unknown History aerosol inhaler wheezing budesonide-formoterol HFA 80 2 puff inhalation Q12H CO PD 01/05/25 Unknown History mcg-4.5 mcg/actuation aerosol inhaler (Breyna) gabapentin 300 mg capsule 300 mg PO Q12H 01/05/25 Unkn own History sennosides 8.6 mg-docusate sodium 2 tab-cap PO BID PRN constipation 01/05/25 Unknown History 50 mg tablet (Senna with Docusate Sodium) furosemide 40 mg tablet 40 mg PO DAILY #30 tabs 12/29 06/24 Unknown Rx acetaminophen 325 mg capsule 325 mg PO Q4H PRN fever o r pain 04/23/25 Unknown History duloxetine 30 mg capsule,delayed 30 mg PO DAILY Unknown History release loperamide 2 mg tablet 2 mg PO Q6H PRN loose stool 04/23/25 Unknown History (Anti-Diarrheal (loperamide)) magnesium hydroxide 400 mg/5 mL 30 ml PO PRN 04/23/25 Unknown History oral suspension (Gentle Laxative (magnesium hydroxide)) metoprolol tartrate 25 mg tablet 25 mg PO BID 04/23/25 Unknown History Allergy/AdvReac Type Severity Reaction Status Date / Time No Known Allergies Allergy Verified 04/23/25 10:22 Family History Mother Heart disease Father Heart disease Surgical History Previous back surgery Social History housing: assisted living facility Smoking Status: Former smoker alcohol intake: never substance use type: does not use ROS ROS Narrative Unable to obtain given patient current clinical condition Vital Signs Vital Signs Vital Signs: 04/23/25 10:17 04/23/25 10:22 04/23/25 10:37 Temperature 98.2 F 98.2 F Temperature Source Oral Oral Pulse Rate 58 L 55 L Respiratory Rate 16 19 H Respiratory Pattern Blood Pressure 121/53 H 121/53 H Blood Pressure Mean 75 75 Pulse Ox 90 96 Oxygen Delivery Method Nasal Cannula Nasal Cannula Nasal Cannula Oxygen Flow Rate (L/min) 4 4 2 04/23/25 11:04 04/23/25 11:22 Temperature 97.7 F L Temperature Source Temporal Pulse Rate 60 57 L Respiratory Rate 16 20 H Respiratory Pattern Normal Blood Pressure 110/57 L Blood Pressure Mean 74 Pulse Ox 97 Oxygen Delivery Method Bi-pap Oxygen Flow Rate (L/min) Weight Weight: 122.4 kg Body Mass Index (BMI) 42.3 Physical Exam Narrative GENERAL: Lethargic but arousable, on BiPAP HEENT: Atraumatic; normocephalic EYES; Anicteric, Normal Conjunctiva NECK; supple, normal thyroid, RESPIRATORY: Diminished to auscultation CARDIOVASCULAR: Regular S1 S2, GI: soft, normoactive bowel sounds, : No Renal angle tenderness; EXTREMITIES: Trace bipedal edema, no clubbing, MUSCULOSKELETAL: no muscle wasting NEURO: Lethargic but arousable no lateralizing signs. SKIN: No Rash PSYCH; lethargic Results Lab / Micro Data 04/23/25 10:40 04/23/25 10:40 Labs: Laboratory Results - last 24 hr 04/23/25 10:40: WBC 5.6, RBC 3.15 L, Hgb 10.2 L, Hct 33.4 L, MCV 106.0 H, MCH 32.4 H, MCHC 30.5 L, RDW Std Deviation 59.8 H, RDW Coeff of Alverto 15.5 H, Plt Count 160, MPV 10.7, Immature Gran % (Auto) 2.700 H, Neut % (Auto) 80.4 H, Lymph % (Auto) 8.3 L, [place] % (Auto) 7.9, Eos % (Auto) 0.0, Baso % (Auto) 0.7, Absolute Neuts (auto) 4.5, Absolute Lymphs (auto) 0.46 L, Nucleated RBC % 0, Sodium 141, Potassium 5.0, Chloride 105, Carbon Dioxide 26.5, Anion Gap 10, BUN 41 H, C reatinine 1.74 H, Estim Creat Clear Calc 38.47 L, Est GFR (MDRD) Non-Af 30 L, B UN/Creatinine Ratio 23.6 H, Glucose 111 H, Calcium 9.1, Troponin T High Sens 35 H, NT pro BNP II 2237 H ABG Data ABG results: ABG 04/23/25 11:16 Specimen Type ART Sample Site L Radial pH 7.15 L* Bicarbonate Actual 30.2 H Total CO2 33 Base Excess 1 O2 Saturation 73 L O2 % 2.0 ABG pCO2 85.9 H* ABG pO2 51 L Noman Test Positive O2 Delivery Device Cannula Vent Mode Not entered Crit Call To/Read Back Yes Blood Gas Notified Whom NENO Blood Gas Notified Time 11:18:11 Rhythm Strip Rhythm Strip: Sinus Rhythm Rate: 55 Ectopy: PAC(s) Imaging Radiology Impression Chest X-Ray 04/23/25 11:00 IMPRESSION: Cardiomegaly and mild CHF with blunting of the right costophrenic angle and mild bibasilar atelectasis. Reading Location: [facility] Assessment & Plan Assessment/Plan (1) Acute on chronic diastolic (congestive) heart failure: (2) CKD (chronic kidney disease): (3) COPD (chronic obstructive pulmonary disease): (4) Acute on chronic respiratory failure with hypoxia and hypercapnia: PLAN: Plan Patient is 74-year-old lady with multiple comorbidities presented with significant shortness of breath 1. Acute hypoxic and hypercapnic respiratory failure ? Multifactorial including CHF, COPD, suspected obstructive sleep apnea as well as obesity hypoventilation syndrome. ABG obtained on admission demonstrated significant acidosis with pH of 7.15 and pCO2 of 85.9. Patient placed on noninvasive ventilation BiPAP admitted to monitored bed. Repeat ABG ordered in 3 hours to assess response to initial therapy 2. Acute on chronic congestive heart failure with preserved ejection fraction ? 2D echo obtained in October 2024 did show Mild concentric left ventricular hypertrophy. The LV systolic function is normal. EF is 65 %. Stage 1 diastolic dysfunction. The left atrium is severely enlarged.Right ventricular systolic pressure estimated to be 47 mmHg. Aortic sclerosis, no stenosis. Mildly dilated aortic root.. Chest x-ray on admission demonstrated Cardiomegaly and mild CHF with blunting of the right costophrenic angle and mild bibasilar atelectasis. Patient presented with acute hypoxic and hypercapnic respiratory failure admitted to a monitored bed placed on noninvasive ventilation BiPAP as documented above also ordered IV furosemide 40 mg every 8 in addition to fluid restriction strict input and output Silverio catheter was ordered for assessment of accurate I's and O's 3. COPD ? Bronchodilator treatments as needed in addition to PAP therapy described above 4. Suspected obstructive sleep apnea ? Patient had apparently been evaluated by pulmonology as outpatient patient however elected not to wear any PAP therapy official sleep study was subsequently not ordered 5. Class III obesity with BMI of 42.3 ? Complicating care plan is to admissions counselor patient on weight reduction following improvement in her altered mental status 6. Acute metabolic encephalopathy Secondary to combination of hypoxia and hypercapnic respiratory failure do expect improvement in her level of sensorium with treatment of underlying clinical etiology 7. History of pulmonary embolism ? Patient is on apixaban 8. Chronic kidney disease stage IIIb ? Patient kidney function at baseline 9. Anemia ? Secondary to chronic disorder monitoring H&H and transfuse if patient becomes symptomatic or hemoglobin falls below 7 10. Essential hypertension ? Patient is on metoprolol 11. Dyslipidemia ? Patient is on gemfibrozil held on admission 12. DVT prophylaxis ? Patient already anticoagulated with apixaban Time spent in the patient's overall evaluation,decision-making process, review of diagnostic data, adjustment of management, discussion with other providers, nursing nursing and ancillary staff involved in patient's care documentation, 75 Minutes Advance planning; did discuss with the patient's family (her niece who appears to be MPOA) regarding advanced directives as well as CODE STATUS. Did explain the various scenarios involved ( FULL CODE, DNR CCA, DNR CCA with no intubation, and DNR CC and what each meant) patient's POA did confirm patient CODE STATUS which is DNR CCA with no intubation Order was placed. Time spent on discussion 16 minutes. Charges/Coding Multi Select Codes Visit Charges Visit Charges: 75633 Init Hosp L3
[2025-04-23 13:15] LABS: Troponin T High Sens 2 HR 36 ng/L (<=14)
[2025-04-23] MEDS: 0.9% Saline Lock 10 ML Syringe IV ×2 (14:09→21:27)
[2025-04-23 14:37] LABS: Base Excess 2 mmol/L (-2 to +2); FI02 3.0; PO2 61 mmHG (75-100); SITE R Brach; SO2 85 % (94-98)
[2025-04-23 15:14] LABS: Troponin T High Sens 4 HR 39 ng/L (<=14)
--- OUTSIDE RECORDS SUMMARY | 2025-04-23 17:06 | XMS RPT_ITS | CCD ---
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 Zee Jose Primary Care Provider Dr. Livier Whipple Emergency Provider Dr. Daisy Rivera Admit Provider Dr. Daisy Rivera Other Provider Dr. Jesus Akhtar Other Provider Dr. Teja Zeng Other Provider Dr. Rupert Newell Attending Provider Dr. Teja Zeng Attending Provider Dr. Zee Jose DO Primary Care Provider Dr. Janak Hernandez DO Emergency Provider Dr. Zhane Stone DO Admit Provider Dr. Zhane Stone DO Other Provider Dr. Teja Zeng MD Attending Provider Sweta ROMERO, Dr. Laura Álvarez Other Provider Dr. Michelle Gonzales MD Attending Provider Sweta ROMERO, Dr. Laura Álvarez Attending Provider Dr. Zhane Stone DO Attending Provider Dr. Teja Zeng MD Other Provider Dr. Lobito Benson MD Emergency Provider Sweta ROMERO, Dr. Laura Álvarez Admit Provider Dominga ROMERO, Dr. Maurice Other Provider Jennifer ROMERO, Dr. Gonzalez Other Provider Reece ROMERO, Dr. Emery Other Provider Shola ESCOBEDO, Dr. Lee Other Provider Tiki ROMERO, Dr. Con Eisenberg Other Provider Lina ROMERO, Dr. Villaseñor Other Provider Flavio ROMERO, Dr. Oh Other Provider Frieda ROMERO, Dr. Melgoza Other Provider Chai ROMERO, Dr. Reyes Other Provider Manish ROMERO, Dr. Alegria Other Provider [phone] Juvenal ROMERO, Dr. Collazo Other Provider Efrem ROMERO, Dr. Schneider Other Provider Jonathan ROMERO, Dr. Belle Other Provider Unavailabl jg Lisa MD, Dr. Rae Other Provider Reece ROMERO, Dr. Li Other Provider [phone] Sindy ROMERO, Dr. Espitia Other Provider Kiersten ROMERO, Dr. Tomlinson Other Provider Dr. Farhan Benavidez DO Other Provider [phone] Dr. Cordell Dia MD Other Provider Sandra ROMERO, Dr. Marquez Other Provider [phone] Dr. Marvin Jameson DO Other Provider Baron ROMERO, Dr. Wadsworth Other Provider [phone] Tal ROMERO, Dr. Castro Other Provider [phone] Yehuda Snider Attending Unavailable Allie Coreas Referring Unavailable Zee Jose Primary Care Unavailable Con Metzger Attending Unavailable Con Metzger Consulting Unavailable Con Metzger Admitting Unavailable Zee Jose Primary Care Unavailable Allie Coreas Attending Unavailable [facility] Primary Care Unavailable [facility] Referring Unavailable Josafat Orr Consulting Unavailable Koram, Laura Preeti Admitting Unavailable Koram, Laura Preeti Attending Unavailable [facility] Primary Care Unavailable Jennifer, Carlos Consulting Unavailable Rupert Newell Consulting Unavailable Jesus Akhtar Consulting Unavailable Con Fairbanks Consulting Unavailable Kasi Mills Consulting Unavailable Flavio, Adriano Consulting Unavailable Habtegebrclaire, Rhona Consulting Unavailab le Dand, Eric Consulting Unavailable Hammond, Raji Consulting Unavailable Zay Sanford Consulting Unavailable Efrem, Jennie Consulting Unavailable Aljundi, Lamia Consulting Unavailable Lisa, Kyra Consulting Unavailable Reece, Guillermo Consulting Unavailable Irukulla, Omkar Consulting Unavailable Kiersten, Davi Consulting Unavailable Dhesi, Farhan Consulting Unavailable Cordell Dia Consulting Unavailable Athens, Solemanishah Consulting Unavailable Fernstrom, Marvin Consulting Unavailable Baron, Ananth Consulting Unavailable Matthew Parada Consulting Unavailable Koram, Laura Preeti Consulting Unavailable Zhane Stone Consulting Unavailable [facility] Primary Care Unavailable Koram, Laura Preeti Attending Unavailable Zhane Stone Admitting Unavailable Koram, Laura Preeti Consulting Unavailable Teja Zeng Attending Unavailable Teja Zeng Consulting Unavailable Josafat Orr Consulting Unavailable Koram, Laura Preeti Admitting Unavailable Koram, Laura Preeti Attending Unavailable [facility] Care Unavailable Jennifer, Carlos Consulting Unavailable Rupert Newell Consulting Unavailable Jesus Akhtar Consulting Unavailable Con Fairbanks Consulting Unavailable Kasi Mills Consulting Unavailable Flavio, Adriano Consulting Unavailable Habtegeflorecita, Rhona Consulting Unavailab le Dand, Eric Consulting Unavailable Hammond, Raji Consulting Unavailable Sanford Zay Consulting Unavailable Efrem, Jennie Consulting Unavailable Aljundi, Lamia Consulting Unavailable Lisa, Kyra Consulting Unavailable Reece, Guillermo Consulting Unavailable Irukulla, Omkar Consulting Unavailable Kiersten, Davi Consulting Unavailable Dhesi, Farhan Consulting Unavailable Dia, Cordell Consulting Unavailable Athens, Soleyah Consulting Unavailable Fernstrom, Marvin Consulting Unavailable Baron, Ananth Consulting Unavailable Matthew Parada Consulting Unavailable Zhane Stone Admitting Unavailable Zhane Stone Consulting Unavailable Teja Zeng Attending Unavailable Rebeca, Zee Primary Care Unavailable Laura Sol Consulting Unavailable Zee Fields Attending Unavailable Zee Fields Consulting Unavailable Michelle Gonzales Attending Unavailable Rebeca, Zee Primary Care Unavailable Yehuda Snider Attending Unavailable Rebeca, Zee Primary Care Unavailable Rebeca, Zee Referring Unavailable Zhane Stone Attending Unavailable Rebeca, Zee Referring Unavailable Rebeca, Zee Primary Care Unavailable Coreas, Allie Attending Unavailable Michael PITTS, Madalyn Attending Unavailable Michael PITTS, Madalyn Referring Unavailable Rebeca, Zee Primary Care Unavailable Coreas, Allie Attending Unavailable Coreas, Allie Referring Unavailable Rebeca, Zee Primary Care Unavailable Con Metzger Consulting Unavailable Zee Fields Attending Unavailable Con Metzger Admitting Unavailable Rebeca, Zee Primary Care Unavailable Coreas, Allie Attending Unavailable Coreas, Allie Referring Unavailable Rebeca, Zee Primary Care Unavailable RebecaZee randhawa Attending Unavailable Rebeca, Zee Primary Care Unavailable Rebeca, Zee Referring Unavailable Rebeca Zee ESCOBEDO A Primary Care Provider REBECAZEE RANDHAWA A Primary Care Unavailable KATHARINE AKHTAR Referring Unavailable JACQUELYN CASTILLO Attending Unavailable REBECAZEE RANDHAWA Referring Unavailable REBECA, ZEE A Primary Care Unavailable KATHARINE AKHTAR Attending Unavailable ZEE JOSE Primary Care Unavailable KATHARINE AKHTAR Referring Unavailable ZEE JOSE Primary Care Unavailable KATHARINE AKHTAR Referring Unavailable Medications Current Medications Medication Drug Class(es) Dates Sig (Normalized) Sig (Original) [id number] 200 actuat albuterol 0.09 mg/actuat metered dose inhaler (7 sources) beta2-Adrenergic Agonist Start: 01-05-2025 Albuterol Sulfate 90 mcg/actuation HFA aerosol inhaler Active 2 NMA INHALATION EVERY 6 HOURS NEEDED as needed for wheezing January 05, 2025 12:00am Start: 01-24-2024 End: 04-18-2024 Albuterol Sulfate 90 mcg/act uation HFA aerosol inhaler Discontinued 2 NMA INHALATION EVERY 6 HOURS as needed for shortness of breath or wheezing 8.5 0 January 24, 2024 12:00am April 18, 2024 2:11pm apixaban 5 mg oral tablet (16 sources) Factor Xa Inhibitor Start: 01-21-2024 take 1 tablet by mouth twice daily ELIQUIS 5 mg tab(s) Take 5 mg by mouth two times a day. 12/04/2024 Active Start: 05-09-2021 End: 01-21-2024 Apixaban (Eliquis Dvt-Pe Christiano at 30d Start) 5 mg (74 tabs) tablets,dose pack Discontinued 0 mg PO TWICE A DAY 74 May 09, 2021 1:00am January 21, 2024 1:13pm Please contact the information source for Taper Schedule details. Start: 05-09-2021 End: 01-21-2024 Apixaban (Eliquis Dvt-Pe Christiano at 30d Start) 5 mg (74 tabs) tablets,dose pack Discontinued 0 mg PO TWICE A DAY May 09, 2021 1:00am January 21, 2024 1:13pm Please contact the information source for Taper Schedule details. Start: 05-09-2021 Apixaban (Eliq uis Dvt-Pe Treat 30d Start) 5 mg (74 tabs) tablets,dose pack Active 0 MG PO TWICE A DAY May 09, 2021 1:00am Budesonide-Formoterol (10 sources) Corticosteroid, beta2-Adrenergic Agonist Start: 01-05-2025 Budesonide-Formoterol (Breyna) 80-4.5 mcg/actuation HFA aerosol inhaler Active 2 NMA INHALATION Q12H January 05, 2025 12:00am COPD Start: 01-05-2025 Budesonide-For moterol (Breyna) 80-4.5 mcg/actuation HFA aerosol inhaler Active 2 NMA INHALATION Q12H January 05, 2025 12:00am Start: 01-24-2024 End: 04-18-2024 Budesonide-Formoterol (Breyn a) 80-4.5 mcg/actuation HFA aerosol inhaler Discontinued 2 NMA INHALATION TWICE A DAY 10.2 0 January 24, 2024 12:00am April 18, 2024 2:00pm Start: 01-24-2024 End: 04-18-2024 Budesonide-Formoterol (Breyn a) 80-4.5 mcg/actuation HFA aerosol inhaler Discontinued 2 NMA INHALATION TWICE A DAY 10.2 January 24, 2024 12:00am April 18, 2024 2:00pm End: 01-16-2025 take 2 puff(s) by inhalation twice daily budesonide-formoterol (SYMBICORT) 160-4.5 mcg/actuation inhaler Inhale 2 Puffs as instructed twice daily. 01/16/2025 Discontinued (Other) 120 actuat budesonide 0.16 mg/actuat / formoterol fumarate 0.0048 mg/actuat / glycopyrrolate 0.009 mg/actuat metered dose inhaler (2 sources) Corticosteroid, beta2-Adrenergic Agonist Start: 01-16-2025 take 2 puff(s) by inhalation twice daily xltjtsuact-eazwneso-qctplhcryj (BREZTRI AEROSPHERE) 160-9-4.8 mcg/actuation HFA aerosol inhaler Inhale 2 puffs as instructed two times a day. 1 each 11 01/16/2025 Active docusate sodium 50 mg / sennosides, halfway 8.6 mg oral tablet (1 source) Start: 01-05-2025 Sennosides-Docusate Sodium (Senna With Docusate Sodium) 8.6-50 mg tablet Active 2 NMA PO TWICE A DAY as needed for constipation January 05, 2025 12:00am 30 actuat fluticasone furoate 0.1 mg/actuat / umeclidinium 0.0625 mg/actuat / vilanterol 0.025 mg/actuat dry powder inhaler (1 source) Anticholinergic, Corticosteroid, beta2-Adrenergic Agonist Start: 01-17-2025 take 1 puff(s) by inhalation once daily karxgxcziar-nzyehvxda-hehhzkyy (TRELEGY ELLIPTA) 100-62.5-25 mcg inhalation powder Inhale 1 puff as instructed once daily. 1 each 01/17/2025 Active furosemide 40 mg oral tablet (3 sources) Loop Diuretic Start: 01-08-2025 take 1 tablet by mouth once daily furosemide (LASIX) 40 mg tablet Take 1 tablet by mouth once daily. 01/08/2025 Active gabapentin 300 mg oral capsule (20 sources) Anti-epileptic Agent Start: 01-05-2025 take 1 capsule by mouth every twelve hours Gabapentin 300 mg capsule Active 300 mg PO Q12H January 05, 2025 12:00am Start: 10-31-2024 End: 01-05-2025 take 2 capsules by mouth twice daily Gabapentin 100 mg capsule Discontinued 200 mg PO TWICE A DAY October 31, 2024 12:00am January 05, 2025 11:11am nerve pain Start: 10-31-2024 End: 10-31-2024 Gabapentin 300 mg capsule Discontinued PO October 31, 2024 12:00am October 31, 2024 2:01pm Start: 05-09-2021 End: 10-31-2024 take 1 capsule by mouth three times daily Gabapentin 100 mg Capsule Discontinued 100 mg PO THREE TIMES A DAY 90 30 0 May 09, 2021 1:00am October 31, 2024 1:14pm Start: 05-06-2021 End: 05-09-2021 take 600 mg by mouth three times daily Gabapentin Discontinued 600 MG PO THREE TIMES A DAY May 06, 2021 1:00am May 09, 2021 12:50pm Start: 03-07-2019 End: 03-09-2019 take 1 capsule by mouth twice daily at mealtime Gabapentin 100 MG capsule Discontinued 100 mg PO TWICE DAILY WITH MEALS March 07, 2019 5:38pm March 09, 2019 9:23pm nerve pain Start: 03-03-2019 End: 03-07-2019 take 2 capsules by mouth twice daily Gabapentin 300 MG capsule Discontinued 600 mg PO TWICE A DAY March 03, 2019 12:00am March 07, 2019 3:27pm Start: 03-03-2019 End: 03-07-2019 take 600 mg by mouth twice daily Gabapentin Discontinu ed 600 MG PO TWICE A DAY March 03, 2019 12:00am March 07, 2019 3:27pm Start: 07-16-2006 End: 05-09-2021 NEURONTIN 300 MG CAP Take tw o capsules three times daily 0 07/16/2006 Active gemfibrozil 600 mg oral tablet (11 sources) Peroxisome Proliferator Receptor alpha Agonist Start: 03-03-2019 take 1 tablet by mouth twice daily gemfibrozil (LOPID) 600 mg tablet Take 600 mg by mouth two times a day. 03/03/2019 Active levoFLOXacin 750 mg oral tablet (1 source) Quinolone Antimicrobial Start: 01-08-2025 Levofloxacin 750 mg Tablet Active 750 mg PO EVERY 48 HOURS 3 January 08, 2025 12:00am metoprolol tartrate 25 mg oral tablet (3 sources) beta-Adrenergic Kathy Start: 01-08-2025 take 1 tablet by mouth twice daily metoprolol tartrate, short acting, (LOPRESSOR) 25 mg tablet Take 25 mg by mouth two times a day. 01/08/2025 Active Start: 01-08-2025 Metoprolol Tar trate 25 mg Tablet Active 12.5 mg PO TWICE A DAY 30 January 08, 2025 12:00am predniSONE 20 mg oral tablet (10 sources) Start: 01-08-2025 take 2 tablets by mouth once daily Prednisone 20 mg tablet Active 40 mg PO DAILY 10 5 January 08, 2025 12:00am Start: 11-03-2024 End: 01-05-2025 take 3 tablets by mouth once daily, then take 2 tablets by mouth once daily, then take 1 tablet by mouth once daily, then take 0.5 tablet by mouth once daily Prednisone 10 mg tablet Discontinued 10 mg PO DAILY 20 0 November 03, 2024 12:00am January 05, 2025 11:11am 3 tablets daily for 3 days then 2 tablets daily for 3 days then 1 tablet daily for 3 days then half tablet daily for 4 days Start: 01-24-2024 End: 04-18-2024 Prednisone 20 mg Tablet Disc ontinued 40 mg PO DAILY@0800 14 January 24, 2024 12:00am April 18, 2024 2:00pm 2 tablets daily for 7 days then discontinue sulfamethoxazole 400 mg / trimethoprim 80 mg oral tablet (20 sources) Dihydrofolate Reductase Inhibitor Antibacterial, Sulfonamide Antimicrobial Start: 12-30-2024 take 1 tablet by mouth once daily sulfamethoxazole-trimethoprim (BACTRIM) 400-80 mg per tablet Take 1 tablet by mouth once daily. 12/30/2024 Active Start: 10-31-2024 End: 01-08-2025 Sulfamethoxazole-Trimethopri m 400-80 mg tablet Discontinued 1 {tbl} PO TWICE A DAY October 31, 2024 12:00am January 08, 2025 1:58pm infection Start: 06-21-2024 End: 10-31-2024 Sulfamethoxazole-Trimethopri m 800-160 mg tablet Discontinued 0.5 {tbl} PO TWICE A DAY June 29, 2024 10:06am October 31, 2024 2:01pm Start: 03-03-2019 End: 05-09-2021 Sulfamethoxazole-Trimethopri m 1 TABLET tablet Discontinued 1 {tbl} PO TWICE A DAY March 03, 2019 12:00am May 09, 2021 12:50pm antibiotic Start: 03-03-2019 End: 05-09-2021 take 1 tablet by mouth twice daily Sulfamethoxazole-Trimethoprim Discontinu ed 1 TABLET PO TWICE A DAY March 03, 2019 12:00am May 09, 2021 12:50pm Completed/Discontinued Medications Medication Drug Class(es) Dates Sig (Normalized) Sig (Original) acetaminophen 325 mg oral capsule (14 sources) Start: 01-21-2024 End: 04-18-2024 take 1 capsule by mouth every six hours as needed for pain Acetaminophen 325 mg capsule Discontinued 325 mg PO EVERY 6 HOURS as needed for fever or pain January 21, 2024 12:00am April 18, 2024 2:00pm Start: 03-07-2019 End: 03-09-2019 Acetaminophen 325 MG tablet Discontinued 650 mg PO EVERY 6 HOURS NEEDED as needed for Mild pain 1-3/Temp > 100.7 F 0 March 07, 2019 12:00am March 09, 2019 9:21pm Start: 03-07-2019 End: 03-09-2019 take 650 mg by mouth every six hours as needed Acetaminophen Discontinued 650 MG PO EVERY 6 HOURS NEEDED March 07, 2019 12:00am March 09, 2019 9:21pm 30 actuat aclidinium bromide 0.4 mg/actuat dry powder inhaler (3 sources) Start: 01-12-2013 End: 01-16-2025 aclidinium bromide (TUDORZA PRESSAIR) 400 mcg/actuation AePB Inhale as instructed. 0 01/12/2013 01/16/2025 Discontinued (Other) amoxicillin 500 mg oral capsule (8 sources) Penicillin-class Antibacterial Start: 12-04-2021 End: 01-21-2024 take 1 capsule by mouth every twelve hours Amoxicillin 500 mg Capsule Discontinued 500 mg PO EVERY 12 HOURS 12 6 0 December 04, 2021 12:00am January 21, 2024 1:13pm B Complex-Vitamin C-Folic Acid 0.5 mg Tab (3 sources) Start: 01-12-2013 End: 01-16-2025 B Complex-Vitamin C-Folic Acid 0.5 mg Tab Take by mouth. 0 01/12/2013 01/16/2025 Discontinued (Other) dexamethasone 4 mg oral tablet (8 sources) Corticosteroid Start: 12-04-2021 End: 01-21-2024 take 6 mg by mouth once daily Dexamethasone 4 mg Tablet Discontinued 6 mg PO DAILY 9 December 04, 2021 12:00am January 21, 2024 1:13pm Start: 12-04-2021 take 6 mg by mouth once daily Dexamethasone Active 6 MG PO DAILY 9 December 04, 2021 12:00am docusate sodium 100 mg oral capsule (5 sources) Start: 10-31-2024 End: 01-05-2025 take 1 capsule by mouth twice daily Docusate Sodium (Col-Rite) 100 mg capsule Discontinued 100 mg PO TWICE A DAY October 31, 2024 12:00am January 05, 2025 11:11am stool softner doxycycline monohydrate 100 mg oral capsule (7 sources) Tetracycline-class Drug Start: 08-24-2022 End: 01-21-2024 take 1 capsule by mouth twice daily Doxycycline Monohydrate 100 mg capsule Discontinued 100 mg PO TWICE A DAY August 24, 2022 12:00am January 21, 2024 1:13pm fenofibric acid 135 mg delayed release oral capsule (3 sources) Peroxisome Proliferator Receptor alpha Agonist Start: 01-12-2013 End: 01-16-2025 Fenofibric Acid (TRILIPIX) 135 mg CpDR Take by mouth. 0 01/12/2013 01/16/2025 Discontinued (Other) folic acid 2.2 mg / pyridoxine 25 mg / vitamin b12 1 mg oral tablet (3 sources) Vitamin B12 Start: 07-16-2006 End: 01-16-2025 FOLIC ACID-VIT B6-VIT B12 2.2 MG-25 MG-1 MG TAB Take one(1) tablet daily. 100 0 07/16/2006 01/16/2025 Discontinued (Other) Food Supplemt, Lactose-Reduced (8 sources) Start: 03-07-2019 [...] 07, 2019 12:00am March 07, 2019 5:38pm Food Supplemt, Lactose-Reduced 120 ML liquid (10 sources) Start: 03-07-2019 End: 03-09-2019 take 1 mL by mouth four times daily Food Supplemt, Lactose-Reduced 120 ML liquid Discontinued 120 mL PO 4 TIMES DAILY March 07, 2019 5:38pm March 09, 2019 9:21pm supplement Start: 03-07-2019 End: 03-09-2019 take 1 mL by mouth four times daily Food Supplemt, Lactose-Reduced 120 ML liquid Discontinued 120 mL PO 4 TIMES DAILY March 07, 2019 5:38pm March 09, 2019 9:21pm Start: 03-07-2019 End: 03-07-2019 take 1 mL by mouth four times daily Food Supplemt, Lactose-Reduced 120 ML liquid Discontinued 120 mL PO 4 TIMES DAILY 0 March 07, 2019 12:00am March 07, 2019 5:38pm Start: 03-07-2019 End: 03-07-2019 take 1 mL by mouth four times daily Food Supplemt, Lactose-Reduced 120 ML liquid Discontinued 120 mL PO 4 TIMES DAILY March 07, 2019 12:00am March 07, 2019 5:38pm hydroCHLOROthiazide 25 mg / lisinopril 20 mg oral tablet (18 sources) Thiazide Diuretic, Angiotensin Converting Enzyme Inhibitor Start: 05-06-2021 End: 05-09-2021 Lisinopril-Hydrochlorothiazi de 20-25 mg tablet Discontinued 1 {tbl} DAILY May 06, 2021 1:00am May 09, 2021 12:50pm Start: 05-06-2021 End: 05-09-2021 Lisinopril-Hydrochlorothiazi de Discontinued 1 TABLET DAILY May 06, 2021 1:00am May 09, 2021 12:50pm Start: 10-18-2013 End: 03-07-2019 take 1 tablet by mouth once daily Lisinopril/Hydrochlorothiazide (Zestoret ic 20/25 Tablet) 1 TABLET tablet Discontinued 1 {tbl} PO DAILY October 18, 2013 12:00am March 07, 2019 3:28pm loperamide hydrochloride 2 mg oral tablet (9 sources) Opioid Agonist Start: 11-30-2021 End: 04-18-2024 take 1 tablet by mouth every six hours as needed Loperamide 2 mg Tablet Discontinued 2 mg PO EVERY 6 HOURS as needed for Loose Stool November 30, 2021 12:00am April 18, 2024 2:00pm menthol 0.0044 mg/mg / zinc oxide 0.2 mg/mg topical ointment (9 sources) Start: 03-07-2019 End: 03-07-2019 Menthol-Zinc Oxide 1 APPLIC ointment Discontinued 1 NMA TOPICAL THREE TIMES A DAY 0 March 07, 2019 12:00am March 07, 2019 5:38pm Please contact the information source for Protocol details. Start: 03-07-2019 End: 03-07-2019 Menthol-Zinc Oxide Discontin ued 1 APPLIC TOPICAL THREE TIMES A DAY March 07, 2019 12:00am March 07, 2019 5:38pm midodrine hydrochloride 2.5 mg oral tablet (18 sources) alpha-Adrenergic Agonist Start: 03-07-2019 End: 03-09-2019 take 1 tablet by mouth three times daily Midodrine 2.5 MG tablet Discontinued 2.5 mg PO THREE TIMES A DAY March 07, 2019 5:38pm March 09, 2019 9:21pm orthostatic BP morphine sulfate 15 mg extended release oral tablet (20 sources) Opioid Agonist Start: 03-07-2019 End: 03-09-2019 take 1 tablet by mouth twice daily Morphine 15 MG tablet Discontinued 15 mg PO TWICE A DAY March 07, 2019 5:38pm March 09, 2019 9:23pm pain Start: 03-03-2019 End: 03-07-2019 take 2 tablets by mouth once daily Morphine 30 MG tablet extended release Discontinued 60 mg PO DAILY March 03, 2019 12:00am March 07, 2019 3:28pm Start: 03-03-2019 End: 03-07-2019 take 60 mg by mouth once daily Morphine Discontinued 6 0 MG PO DAILY March 03, 2019 12:00am March 07, 2019 3:28pm End: 01-16-2025 take 1 tablet by mouth twice daily, then take 1 tablet by mouth every twelve hours morphine SR (MS CONTIN, ORAMORPH SR) 60 mg 12 hr tablet Take 60 mg by mouth twice daily. 01/16/2025 Discontinued (Other) Morphine Sulfate (Morphine Sulfate Er) 30 MG Tablet.Er (9 sources) Start: 03-03-2019 End: 03-07-2019 take 1 tablet by mouth once daily Morphine Sulfate (Morphine Sulfate Er) 30 MG Tablet.Er Discontinued 30 mg PO DAILY March 03, 2019 12:00am March 07, 2019 3:27pm Start: 03-03-2019 End: 03-07-2019 take 1 tablet by mouth once daily Morphine Sulfate (Morphine Sulfate Er) 30 MG Tablet.Er Discontinued 30 MG PO DAILY March 03, 2019 12:00am March 07, 2019 3:27pm 24 hr nicotine 0.875 mg/hr transdermal system (18 sources) Cholinergic Nicotinic Agonist Start: 03-07-2019 End: 03-09-2019 apply 21 mg transdermal route once daily Nicotine 21 MG patch Discontinued 21 mg TRANSDERM. DAILY March 07, 2019 5:38pm March 09, 2019 9:23pm pain phentermine hydrochloride 37.5 mg oral tablet (9 sources) Sympathomimetic Amine Anorectic Start: 05-06-2021 End: 01-21-2024 take 1 tablet by mouth once daily Phentermine 37.5 mg tablet Discontinued 37.5 mg PO DAILY May 06, 2021 1:00am January 21, 2024 1:13pm WT LOSS polyethylene glycol 3350 94938 mg powder for oral solution (3 sources) Osmotic Laxative Start: 06-06-2007 End: 01-16-2025 polyethylene glycol 3350(MIRALAX 100 % ORAL POWDER) Take 30ml mixed in 8oz water once daily 0 06/06/2007 01/16/2025 Discontinued (Other) pregabalin 50 mg oral capsule (9 sources) Start: 03-03-2019 End: 03-07-2019 take 1 capsule by mouth three times daily Pregabalin 50 MG capsule Discontinued 50 mg PO THREE TIMES A DAY March 03, 2019 12:00am March 07, 2019 3:29pm pain Problems Active Problems Problem Classification Problem Date Documented Da te Episodic/Chronic Abdominal pain (18 sources) Flank pain; Translations: [Unspecified abdominal pain] 05-13-2021 Episodic Acute and unspecified renal failure (10 sources) Renal failure syndrome; Translations: [Unspecified kidney failure] Chronic Acute and unspecified renal failure (5 sources) Acute renal failure syndrome; Translations: [Acute kidney failure, unspecified] 01-21-2024 Episodic Acute myocardial infarction (5 sources) Myocardial infarction; Translations: [Non-ST elevation (NSTEMI) myocardial infarction] 01-21-2024 Chronic Chronic kidney disease (5 sources) Chronic kidney disease; Translations: [Chronic kidney disease, unspecified] 06-20-2024 Chronic Chronic obstructive pulmonary disease and bronchiectasis (20 sources) Chronic obstructive lung disease; Translations: [Chronic obstructive pulmonary disease, unspecified] Onset: 11-03-2024 05-06-2021 Chronic Congestive heart failure; nonhypertensive (10 sources) Congestive heart failure; Translations: [Heart failure, unspecified] Onset: 11-03-2024 10-31-2024 Chronic Disorders of lipid metabolism (9 sources) Hyperlipidemia; Translations: [Hyperlipidemia, unspecified] 03-07-2019 Chronic Fluid and electrolyte disorders (7 sources) Hypercapnia; Translations: [Carbon dioxide retention] 08-24-2022 Episodic Malaise and fatigue (20 sources) Asthenia; Translations: [Weakness] Episodic Occlusion or stenosis of precerebral arteries (11 sources) Bilateral stenosis of carotid arteries; Translations: [Occlusion and stenosis of bilateral carotid arteries] Onset: 07-11-2024 06-29-2024 Chronic Comment on above: CTA 06/22/24: L ICA 5 8% stenosis, R ICA 46% stenosis. Other aftercare (9 sources) Polypharmacy ; Translations: [Other fpc (current) drug therapy] 05-13-2021 Episodic Other aftercare (4 sources) Long-term current use of anticoagulant; Translations: [longterm (current) use of anticoagulants] 01-05-2025 Episodic Other circulatory disease (9 sources) Orthostatic hypotension; Translations: [Orthostatic hypotension] 03-07-2019 Episodic Other circulatory disease (20 sources) Low blood pressure; Translations: [Hypotension, unspecified] 03-07-2019 Episodic Other circulatory disease (5 sources) Carotid bruit; Translations: [Other specified symptoms and signs involving the circulatory and respiratory systems] 04-18-2024 Episodic Other connective tissue disease (9 sources) Neuropathic pain; Translations: [Neuralgia and neuritis, unspecified] 03-07-2019 Episodic Other diseases of veins and lymphatics (5 sources) Lymphedema; Translations: [Lymphedema, not elsewhere classified] 04-18-2024 Chronic Other diseases of veins and lymphatics (5 sources) Vascular insufficiency; Translations: [Venous insufficiency (chronic) (peripheral)] 04-18-2024 Episodic Comment on above: Venous reflux study 03/10/24: Positive for reflux in the left popliteal vein, saphenofemoral junction, great saphenous vein belowthe knee, and accessory saphenous vein in the calf Other lower respiratory disease (9 sources) Pleuritic pain; Translations: [Pleurodynia] 05-13-2021 Episodic Other lower respiratory disease (6 sources) Hypoxia; Translations: [Hypoxemia] 01-05-2025 Episodic Other lower respiratory disease (3 sources) Hypoxemia; Translations: [Hypoxemia] Onset: 01-09-2025 Episodic Other lower respiratory disease (5 sources) History of chronic obstructive airway disease; Translations: [Personal history of other diseases of the respiratory system] 01-21-2024 Episodic Other lower respiratory disease (4 sources) Increasing breathlessness; Translations: [Shortness of breath] 01-05-2025 Episodic Other lower respiratory disease (2 sources) Shortness of breath; Translations: [Shortness of breath] Onset: 01-09-2025 Episodic Other lower respiratory disease (1 source) Other abnormalities of breathing; Translations: [Hypercapnia] Onset: 03-19-2025 Episodic Other nervous system disorders (10 sources) Toxic encephalopathy; Translations: [Toxic encephalopathy] Episodic Other nutritional; endocrine; and metabolic disorders (1 source) Morbid obesity; Translations: [Morbid (severe) obesity due to excess calories] 01-16-2025 Chronic Other nutritional; endocrine; and metabolic disorders (1 source) Morbid (severe) obesity due to excess calories; Translations: [Morbid obesity (HCC)] Onset: 01-16-2025 Chronic Other screening for suspected conditions (not mental disorders or infectious disease) (16 sources) Hormone level - finding; Translations: [Other specified abnormal findings of blood chemistry] Onset: 11-03-2024 01-21-2024 Episodic Pneumonia (except that caused by tuberculosis or sexually transmitted disease) (12 sources) Pneumonia; Translations: [Pneumonia, unspecified organism] Onset: 01-09-2025 08-24-2022 Episodic Pulmonary heart disease (2 sources) Pulmonary hypertension; Translations: [Pulmonary hypertension, unspecified] Onset: 01-16-2025 01-16-2025 Chronic Residual codes; unclassified (2 sources) Obstructive sleep apnea syndrome; Translations: [Obstructive sleep apnea (adult) (pediatric)] 01-16-2025 Chronic Residual codes; unclassified (1 source) Obstructive sleep apnea (adult) (pediatric); Translations: [YESSY (obstructive sleep apnea)] Onset: 01-16-2025 Chronic Residual codes; unclassified (9 sources) Harmful pattern of use of nicotine; Translations: [Tobacco use] 03-07-2019 Episodic Residual codes; unclassified (9 sources) Tobacco user; Translations: [Tobacco use] 03-07-2019 Episodic Residual codes; unclassified (5 sources) Procedure and treatment not carried out because of patient's decision for other reasons; Translations: [Care refused by patient] 09-01-2022 Episodic Respiratory failure; insufficiency; arrest (adult) (12 sources) Chronic hypoxemic respiratory failure; Translations: [Chronic respiratory failure with hypoxia] Onset: 01-16-2025 03-07-2019 Chronic Respiratory failure; insufficiency; arrest (adult) (20 sources) Acute hypoxemic and hypercapnic respiratory failure; Translations: [Acute respiratory failure with hypoxia] Onset: 04-18-2024 Episodic Screening and history of mental health and substance abuse codes (2 sources) Ex-cigarette smoker; Translations: [Personal history of nicotine dependence] Onset: 01-16-2025 01-16-2025 Episodic Substance-related disorders (9 sources) Opioid dependence; Translations: [Opioid dependence, uncomplicated] 03-07-2019 Chronic Urinary tract infections (9 sources) Recurrent urinary tract infection; Translations: [Urinary tract infection, site not specified] 03-07-2019 Episodic Viral infection (13 sources) Viral disease; Translations: [Viral infection, unspecified] Episodic Past or Other Problems Problem Classification Problem Date Documented Da te Episodic/Chronic Hemorrhoids (8 sources) Internal hemorrhoids; Translations: [Other hemorrhoids] Onset: 06-06-2007 09-26-2024 Episodic Other and unspecified benign neoplasm (4 sources) Benign neoplasm of colon; Translations: [Benign neoplasm of colon, unspecified] Onset: 06-06-2007 09-26-2024 Episodic Other circulatory disease (1 source) Other specified symptoms and signs involving the circulatory and respiratory systems; Translations: [Other specified symptoms and signs involving the circulatory and respiratory systems] Onset: 06-01-2024 Episodic Other connective tissue disease (1 source) Other specified soft tissue disorders; Translations: [Other specified soft tissue disorders] Onset: 04-04-2024 Episodic Other connective tissue disease (4 sources) Pain in buttock; Translations: [Myalgia, other site] Onset: 07-23-2015 07-23-2015 Episodic Other gastrointestinal disorders (4 sources) Constipation; Translations: [Constipation, unspecified] Onset: 06-06-2007 09-26-2024 Episodic Other skin disorders (4 sources) Epidermoid cyst of skin; Translations: [Epidermal cyst] Onset: 02-03-2013 02-03-2013 Episodic Skin and subcutaneous tissue infections (1 source) Local infection of the skin and subcutaneous tissue, unspecified; Translations: [Local infection of the skin and subcutaneous tissue, unspecified] Onset: 04-19-2024 Episodic Spondylosis; intervertebral disc disorders; other back problems (20 sources) Chronic back pain ; Translations: [Dorsalgia, unspecified] Onset: 03-26-2015 Resolved: 01-30-2016 05-06-2021 Episodic Results Test Name Value Interpretation Reference Range Facility CNOVon 03-19-2025 CNOV Office Visit (SLEWST ) DESIRE CHAUDHRY ([id number]) 1950 F Date Time Provider Department 03/19/25 8:00 AM JACQUELYN CASTILLO During your visit today, we recorded the following information about you: Pulse Respiration Blood pressure 61/minute 16/minute 138/92 Jacquelyn Castillo APRN.CNP 03/23/2025 5:[address] [facility] New Patient Evaluation PATIENT NAME: Desire Chaudhry DATE OF SERVICE: March 18, 2025 Recording using Powered software for draft documentation of the visit was discussed with the patient/authorized health and safety representative; all questions welcomed and answered. Patient/authorized health and safety representative agreed to proceed CONSULTING PROVIDER: Katharine Akhtar ([facility]) [address] [facility] [address] REASON FOR CONSULT: Katharine Akhtar sends the patient for an opinion about Has COPD as well with history of hypercapnia. Treated with BiPAP in hospital. My findings and recommendations will be transmitted electronically via shared medical record to the consulting provider. HPI: The patient is a 74-year-old female with COPD, chronic hypoxemic and hypercapnic respiratory failure, diastolic heart failure, recent-onset atrial fibrillation, stroke with left leg paralysis, CKD, HTN, HLD, pulmonary HTN, obesity, and limited mobility due to left leg paralysis from stroke and complications from multiple back surgeries. She presents for evaluation of sleep-disordered breathing and the need for a BiPAP titration. She is accompanied by a it application architect who provides additional history. The patient was referred by pulmonology for a sleep study due to multiple hospitalizations for hypercapnia. She has been treated with BiPAP during hospitalizations but reports poor tolerance of the mask. She currently uses 2 L of oxygen at night, prescribed by her PCP, and believes she is doing well with this regimen. She is not interested in a sleep study or BiPAP therapy at this time. She reports that her had noted snoring, but she denies waking herself up with snoring, snorting, or gasping. She denies headaches, heartburn, acid reflux, sleep paralysis, sleep hallucinations, memory issues, and acting out dreams. She reports a single episode of palpitations during her last hospitalization, which led to the initiation of a new medication. She denies restless legs but notes chronic left leg pain and limited mobility due to her stroke and back surgeries. Her sleep schedule consists of going to bed around midnight and waking up around 0600. She reports no difficulty falling asleep and wakes up a couple of times during the night to use the bathroom. She occasionally takes naps but not routinely. She reports feeling well during the day and does not drive. She engages in activities such as crossword puzzles, jigsaw puzzles, painting, and word searches. Patient Questionnaires Sleep Scores 01/30/2016 PHQ-9 Score 2 Data saved with a previous flowsheet row definition 01/30/2016 PROMIS Global Health - (T-Scores - the mean of general population = 50. Five points is a clinically meaningful difference.) Mental T-Score 41.1 PAST TREATMENTS: None PRIOR SLEEP STUDIES: None PAST MEDICAL HISTORY Diagnosis Date Atherosclerosis of both carotid arteries Atrial fibrillation (HCC) Benign neoplasm of colon Chronic respiratory failure (HCC) CKD (chronic kidney disease) COPD (chronic obstructive pulmonary disease) (HCC) Degeneration of intervertebral disc, site unspecified Diastolic heart failure (HCC) History of DVT (deep vein thrombosis) HLD (hyperlipidemia) Hypertension Intracranial hemorrhage (HCC) 2017 Lymphedema Obesity, unspecified Pulmonary hypertension (HCC) Pure hypercholesterolemia Unspecified constipation PAST SURGICAL HISTORY Procedure Laterality Date BACK SURGERY HX x 7 COLONOSCOPY FLX DX W/COLLJ SPEC WHEN PFRMD 06/06/2007 Colonoscopy DECOMPRESSION THORACIC SEGMENT TRANSPED PAST SURGICAL HISTORY OF hysterectomy ACTIVE PROBLEM LIST Benign Neoplasm of Colon Internal Hemorrhoids Without Mention of Complication External Hemorrhoids Without Mention of Complication Unspecified Constipation Epidermal Cyst Fusion of Spine, Thoracic Region Spinal Stenosis, Lumbar Region, With Neurogenic Claudication Left Buttock Pain Chronic Midline Low Back Pain Without Sciatica Allergies As of Date: 03/19/2025 (No Known Allergies) Fully Assessed 03/19/2025 CURRENT MEDICATIONS: ELIQUIS 5 mg tab(s) Take 5 mg by mouth two times a day. furosemide (LASIX) 40 mg tablet Take 1 tablet by mouth once daily. (Patient taking differently: Take 1 tablet by mouth as needed.) gemfibrozil (LOPID) 600 mg tablet Take 600 mg by mouth two times a day. metoprolol tartrate, short acting, (LOPRESSOR) 25 mg tablet Take 25 mg by mouth two times a day. sulfamethoxazole (more content not included)... [facility] DESIRE CHAUDHRY ([id number]) 1950 F Date Time Provider Department 01/17/25 KATHARINE AKHTAR During your visit today, we recorded the following information about you: Beti Siegel LPN 01/17/2025 9:35 AM Signed Breztri is a non covered medication by patient's benefit plan. Prefer Trelegy Ellipta. Please advise. Beti KYE Siegel Allergies As of Date: 01/17/2025 (No Known Allergies) Date Reviewed: 01/16/2025 Reviewed by: Katharine Akhtar MD - Fully Assessed Reason for Visit: Insurance Authorization [[id number]] Order(s):fluticasone-um eclidin-vilanter (TRELEGY ELLIPTA) 100-62.5-25 mcg inhalation powderInhale 1 puff as instructed once daily.Disp: 1 eachRfl: 5 Prescriptions as of 01/17/2025 - yudelxumppz-zpsaltsnx-e ilanter (TRELEGY ELLIPTA) 100-62.5-25 mcg inhalation powder Inhale 1 puff as instructed once daily. - ELIQUIS 5 mg tab(s) Take 5 mg by mouth two times a day. - furosemide (LASIX) 40 mg tablet Take 1 tablet by mouth once daily. - gemfibrozil (LOPID) 600 mg tablet Take 600 mg by mouth two times a day. - metoprolol tartrate, short acting, (LOPRESSOR) 25 mg tablet Take 25 mg by mouth two times a day. - sulfamethoxazole-trimet hoprim (BACTRIM) 400-80 mg per tablet Take 1 tablet by mouth once daily. - mmiabwenxq-msdtxcqr-umf moterol (BREZTRI AEROSPHERE) 160-9-4.8 mcg/actuation HFA aerosol inhaler Inhale 2 puffs as instructed two times a day. - NEURONTIN 300 MG CAP Take two capsules three times daily Problem List As Of Date 01/17/2025 Noted Resolved BENIGN NEOPLASM LG BOWEL [D12.6] 06/06/2007 INT HEMORRHOID W/O COMPL [K64.8] 06/06/2007 EXT HEMORRHOID W/O COMPL [K64.4] 06/06/2007 CONSTIPATION NOS [K59.00] 06/06/2007 Epidermal cyst [L72.0] 02/03/2013 Midline low back pain without sciatica [M54.50] 03/26/2015 01/30/2016 Fusion of spine, thoracic region [M43.24] 03/26/2015 Spinal stenosis, lumbar region, with neurogenic*04/11/2015 Left buttock pain [M79.18] 07/23/2015 Chronic midline low back pain without sciatica *01/30/2016 Prescriptions ordered this encounter Disp Refills Start End TRELEGY ELLIPTA 100 MCG-62.5 MCG-25 * 1 ea* 5 01/17/2025 Route: INH Sig: Inhale 1 puff as instructed once daily. Encounter Status:Closed by KATHARINE AKHTAR on 01/17/25 Normal [facility] CNOVon 01-16-2025 CNOV Office Visit (PULMWS ) DESIRE CHAUDHRY ([id number]) 1950 F Date Time Provider Department 01/16/25 1:30 PM KATHARINE AKHTAR PULMWS During your visit today, we recorded the following information about you: Pulse Blood pressure Weight Height 84/minute 99/58 116.1 kg 1.676 m Katharine Akhtar MD 01/16/2025 4:32 PM Signed . Respiratory Brandon Note Patient name: Desire Chaudhry PCP: Zee Jose DO Referring Physician: same Recording using Powered software for draft documentation of the visit was discussed with the patient/authorized health and safety representative; all questions welcomed and answered. Patient/authorized health and safety representative agreed to proceed Consultation requested by Dr. Jose for an opinion regarding COPD. My final recommendations will be communicated back to the requesting physician by way of shared Medical record or letter to requesting physician via US mail. CC: COPD HPI: Desire Chaudhry 74 year old female recently admitted to [facility] with acute on chronic hypoxemic and hypercapnic respiratory failure due to COPD exacerbation with diastolic heart failure, new onset AF and possible pneumonia. Other medical issues include CKD, history of stroke, history of pulmonary embolism on Eliquis, HTN, HLD, pulmonary hypertension. She required BiPAP/NIV during her hospital stay for hypercapnia (pCO2 92 with pH 7.19). Responded well to diuresis and was discharged on 2 L continuous oxygen. She states that she used to have portable tanks at home but no longer has portable oxygen available. Desire has been hospitalized three times for CO2 retention. She has not undergone a sleep study and is not currently using BiPAP. She is non-ambulatory, with limited mobility due to paralyzed left leg as complication from multiple back surgeries. Can only transfer from her chair to the toilet and couch. Chronic respiratory symptoms consist of RICHARDSON. Denies chronic cough, mucus production, wheezing or chest pain. Not currently using any inhaled therapy other than albuterol which she stopped using due to lack of efficacy. She is a former 1 pack-a-day smoker having quit more than 15 years ago. DME: [employer] 2 L DATA: PFT: PFT 2015: SPIROMETRY Ref ULN/LLN Pre Pre Post Post Post Reese % Ref Reese % Ref % Chg FVC (L) 2.97 2.39 81 2.38 80 -1 FEV1 (L) 2.19 1.56 72 1.65 75 5 FEV1/FVC (%) 81 65 69 FEV6 2.22 2.26 2 FEF 25-75% (L/sec) 1.88 0.73 39 0.99 53 36 FEF 50% (L/sec) 2.73 (1.4 - 4.1) 1.09 40 1.65 60 52 FEF 75% (L/sec) 0.64 (0.2 - 1.1) 0.23 36 0.30 47 30 PEF (L/sec) 5.77 (2.9 - 8.6) 4.16 72 4.82 83 16 FET 100% (sec) 10.90 9.48 -13 FIVC (L/min) 2.97 2.07 70 2.17 73 5 FEF/FIF50 0.46 0.51 12 MVV (L/min) Imaging / Diagnostic Studies: Echocardiogram 10/2024: Stage I diastolic dysfunction, EF 65%. Severe LAE RVSP [address] 01/05/25 [facility]: Lungs and Airways: Small bilateral pleural effusions. Consolidation in the right lower lobe. Mild increased markings at the left lung base suggestive of possible compressive atelectasis. No evidence of pulmonary edema. Review of chest CT shows pleural effusions, emphysema and RLL consolidation PAST MEDICAL HISTORY Diagnosis Date Atherosclerosis of both carotid arteries Atrial fibrillation (HCC) Benign neoplasm of colon Chronic respiratory failure (HCC) CKD (chronic kidney disease) COPD (chronic obstructive pulmonary disease) (HCC) Degeneration of intervertebral disc, site unspecified Diastolic heart failure (HCC) History of DVT (deep vein thrombosis) HLD (hyperlipidemia) Hypertension Intracranial hemorrhage (HCC) 2017 Lymphedema Obesity, unspecified Pulmonary hypertension (HCC) Pure hypercholesterolemia Unspecified constipation ALLERGIES No Known Allergies ELIQUIS 5 mg tab(s) Take 5 mg by mouth two times a day. furosemide (LASIX) 40 mg tablet Take 1 tablet by mouth once daily. gemfibrozil (LOPID) 600 mg tablet Take 600 mg by mouth two times a day. metoprolol tartrate, short acting, (LOPRESSOR) 25 mg tablet Take 25 mg by mouth two times a day. sulfamethoxazole-trimet hoprim (BACTRIM) 400-80 mg per tablet Take 1 tablet by mouth once daily. NEURONTIN 300 MG CAP Take two capsules three times daily mgobsajtxm-comkigsz-uoo moterol (BREZTRI AEROSPHERE) 160-9-4.8 mcg/actuation HFA aerosol inhaler Inhale 2 puffs as instructed two times a day. SOCIAL HISTORY[1] Retired from [employer] 31 years Pets: None FAMILY HISTORY Problem Relation Age of Onset Coronary Artery Disease Mother Coronary Artery Disease Father other (Black lung) Father Diabetes Sister Diabetes Brother PAST SURGICAL HISTORY Procedure Laterality Date BACK SURGERY HX x 7 COLONOSCOPY FLX DX W/COLLJ SPEC WHEN PFRMD 06/06/2007 Colonoscopy DECOMPRESSION THORACIC SEGMENT TRANSPED PAST SURGICAL HISTORY OF hysterectomy (more content not included)... 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 No contraindications or sensitivities were noted. Meds taken: No inhaled respiratory medications taken before testing. 4 puffs Albuterol (360 mcg) delivered by MDI via holding chamber. HR pre = 84 /min, HR post = 84 /min. Current ATS/ERS acceptability and repeatability standards for spirometry met. Start of test and EOFE criteria met. Current ATS/ERS acceptability and repeatability standards for DLCO met with 2 acceptable maneuvers. IMPRESSION: Spirometry indicates severe obstruction. Negative bronchodilator response. The diffusing capacity (uncorrected for hemoglobin) is reduced. Electronically Signed On 01-16-2025 16:56:46 EDT by Katharine Akhtar MD ID: [id number] Name: DESIRE CHAUDHRY Race: White Ht: 66.00 in Wt: 256.00 lbs Age: 74 Gender: Female : 1950 Dx: COPD_ Smoking Hx: Non-smoker Doctor: KATHARINE AKHTAR Test Date: 01/16/2025 Site: Tech: Candy Ramirez PRE-BRONCH POST-BRONCH Reese LLN Pred ULN %Pred ZScore Reese %Pred %Chg ZScore SPIROMETRY FVC 1.91 2.02 2.89 3.78 66 -1.87 1.91 66 0 -1.87 FEV1 1.05 1.53 2.21 2.86 47 -2.70 1.15 52 4 -2.47 FEV1/FVC 0.55 0.65 0.78 0.89 70 -2.62 0.60 77 10 -2.10 FEFMax 3.54 3.81 5.63 7.45 62 -1.88 3.86 68 9 -1.59 FEF50 0.47 1.56 3.16 4.77 14 -2.76 0.69 21 47 -2.53 FIF50 2.27 2.33 2 FEF50/FIF50 0.21 90-100 0.29 43 FIVC 1.90 1.80 -5 ULD09-77 0.28 0.80 1.81 3.27 15 -3.03 0.47 26 66 -2.43 ExpiredTime 10.90 8.28 -24 TimeToFEFMax 0.08 0.05 -34 TINO 0.05 0.04 -24 VolExtrap% 2 2 -24 LUNG DIFFUSION DLCOunc 13.18 14.68 19.65 25.80 67 -2.22 DLCOStdPB 12.94 14.68 19.65 25.80 65 -2.32 VA 3.32 3.84 4.82 5.91 68 -2.61 Kco 3.91 3.07 4.03 5.14 96 -0.20 Comments: Medications and Allergies were reviewed for possible drug interactions per policy. No contraindications or sensitivities were noted. Meds taken: No inhaled respiratory medications taken before testing. 4 puffs Albuterol (360 mcg) delivered by MDI via holding chamber. HR pre = 84 /min, HR post = 84 /min. Current ATS/ERS acceptability and repeatability standards for spirometry met. Start of test and EOFE criteria met. Current ATS/ERS acceptability and repeatability standards for DLCO met with 2 acceptable maneuvers. Normal [facility] No Panel Informationon 01-16 DLCO (ml/min/mmHg) 13.18 ml/min/mmHg [facility] DLCO LLN (ml/min/mmHg) 14.68 ml/min/mmHg [facility] DLCO PREDICTED (ml/min/mmHg) 19.65 ml/min/mmHg [facility] DLCO ULN (ml/min/mmHg) 25.80 ml/min/mmHg [facility] DLCO/VA (ml/min/mmHg/L) 0.04 ml/m in/mmHg /L [facility] DLCO/VA PREDICTED (ml/min/mmHg/L) 0.04 ml/min/mmHg /L [facility] DLCO/VAcor (ml/min/mmHg/L) 0.04 ml/min/mmHg /L [facility] DLCOcor (ml/min/mmHg) 12.94 ml/min/mmHg Cl [facility] DLCOcor PREDICTED (ml/min/mmHg) 19.65 ml/min/mmHg [facility] ERV PREDICTED (L) 0.96 L/S [facility] FEF25% POST (L/S) 2.63 L/S [facility] FEF25% PRE (L/S) 1.62 L/S [facility] KGA18-62% LLN (L/S) 0.80 L/S [facility] LJZ46-54% POST (L/S) 0.47 L/S [facility] GBF41-85% PRE (L/S) 0.28 L/S [facility] LSI46-63% PREDICTED (L/S) 1.81 L/S [facility] FEF75% LLN (L/S) 0.15 L/S [facility] FEF75% POST (L/S) 0.18 L/S [facility] FEF75% PRE (L/S0 0.09 L/S [facility] FEF75% PREDICTED (L/S) 0.43 L/S [facility] FEF75% ULN (L/S) 1.19 L/S [facility] FET POST (S) 8.[address] [facility] FET PRE (S) 10.[address] [facility] FEV1 LLN (L) 1.[address] [facility] FEV1 PRE (L) 1.[address] [facility] FEV1 PREDICTED (L) 2.21 L [facility] FEV1 ULN (L) 2.[address] [facility] FEV1/FVC LLN (%) 65 % [facility] FEV1/FVC POST (%) 60 % [facility] FEV1/FVC PRE (%) 55 % [facility] FEV1/FVC PREDICTED (%) 78 % [facility] FEV1_POST (L) 1.[address] [facility] FVC LLN (L) 2.[address] [facility] FVC POST (L) 1.[address] [facility] FVC PRE (L) 1.[address] [facility] FVC PREDICTED (L) 2.89 L [facility] FVC ULN (L) 3.[address] [facility] IC PREDICTED (L) 1.93 L/S [facility] PEF LLN (L/S) 3.81 L/S [facility] PEF POST (L/S) 3.86 L/S [facility] PEF PRE (L/S) 3.54 L/S [facility] PEF ULN (L/S) 7.45 L/S [facility] SVC LLN (L) 2.02 L/S [facility] SVC PREDICTED (L) 2.89 L/S [facility] SVC ULN (L) 3.78 L/S [facility] VA (L) 3.[address] 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 No contraindications or sensitivities were noted. Meds taken: No inhaled respiratory medications taken before testing. 4 puffs Albuterol (360 mcg) delivered by MDI via holding chamber. HR pre = 84 /min, HR post = 84 /min. Current ATS/ERS acceptability and repeatability standards for spirometry met. Start of test and EOFE criteria met. Current ATS/ERS acceptability and repeatability standards for DLCO met with 2 acceptable maneuvers. IMPRESSION: Spirometry indicates severe obstruction. Negative bronchodilator response. The diffusing capacity (uncorrected for hemoglobin) is reduced. Electronically Signed On 01-16-2025 16:56:46 EDT by Katharine Akhtar MD ID: [id number] Name: DESIRE CHAUDHRY Race: White Ht: 66.00 in Wt: 256.00 lbs Age: 74 Gender: Female : 1950 Dx: COPD_ Smoking Hx: Non-smoker Doctor: KATHARINE AKHTAR Test Date: 01/16/2025 Site: Tech: Candy Ramirez PRE-BRONCH POST-BRONCH Reese LLN Pred ULN %Pred ZScore Reese %Pred %Chg ZScore SPIROMETRY FVC 1.91 2.02 2.89 3.78 66 -1.87 1.91 66 0 -1.87 FEV1 1.05 1.53 2.21 2.86 47 -2.70 1.15 52 4 -2.47 FEV1/FVC 0.55 0.65 0.78 0.89 70 -2.62 0.60 77 10 -2.10 FEFMax 3.54 3.81 5.63 7.45 62 -1.88 3.86 68 9 -1.59 FEF50 0.47 1.56 3.16 4.77 14 -2.76 0.69 21 47 -2.53 FIF50 2.27 2.33 2 FEF50/FIF50 0.21 90-100 0.29 43 FIVC 1.90 1.80 -5 AET67-74 0.28 0.80 1.81 3.27 15 -3.03 0.47 26 66 -2.43 ExpiredTime 10.90 8.28 -24 TimeToFEFMax 0.08 0.05 -34 TINO 0.05 0.04 -24 VolExtrap% 2 2 -24 LUNG DIFFUSION DLCOunc 13.18 14.68 19.65 25.80 67 -2.22 DLCOStdPB 12.94 14.68 19.65 25.80 65 -2.32 VA 3.32 3.84 4.82 5.91 68 -2.61 Kco 3.91 3.07 4.03 5.14 96 -0.20 Comments: Medications and Allergies were reviewed for possible drug interactions per policy. No contraindications or sensitivities were noted. Meds taken: No inhaled respiratory medications taken before testing. 4 puffs Albuterol (360 mcg) delivered by MDI via holding chamber. HR pre = 84 /min, HR post = 84 /min. Current ATS/ERS acceptability and repeatability standards for spirometry met. Start of test and EOFE criteria met. Current ATS/ERS acceptability and repeatability standards for DLCO met with 2 acceptable maneuvers. PULMONARY FUNCTION LAB 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 No contraindications or sensitivities were noted. Meds taken: No inhaled respiratory medications taken before testing. 4 puffs Albuterol (360 mcg) delivered by MDI via holding chamber. HR pre = 84 /min, HR post = 84 /min. Current ATS/ERS acceptability and repeatability standards for spirometry met. Start of test and EOFE criteria met. Current ATS/ERS acceptability and repeatability standards for DLCO met with 2 acceptable maneuvers. IMPRESSION: Spirometry indicates severe obstruction. Negative bronchodilator response. The diffusing capacity (uncorrected for hemoglobin) is reduced. Electronically Signed On 01-16-2025 16:56:46 EDT by Katharine Akhtar MD ID: [id number] Name: DESIRE CHAUDHRY Race: White Ht: 66.00 in Wt: 256.00 lbs Age: 74 Gender: Female : 1950 Dx: COPD_ Smoking Hx: Non-smoker Doctor: KATHARINE AKHTAR Test Date: 01/16/2025 Site: Tech: Candy Ramirez PRE-BRONCH POST-BRONCH Reese LLN Pred ULN %Pred ZScore Reese %Pred %Chg ZScore SPIROMETRY FVC 1.91 2.02 2.89 3.78 66 -1.87 1.91 66 0 -1.87 FEV1 1.05 1.53 2.21 2.86 47 -2.70 1.15 52 4 -2.47 FEV1/FVC 0.55 0.65 0.78 0.89 70 -2.62 0.60 77 10 -2.10 FEFMax 3.54 3.81 5.63 7.45 62 -1.88 3.86 68 9 -1.59 FEF50 0.47 1.56 3.16 4.77 14 -2.76 0.69 21 47 -2.53 FIF50 2.27 2.33 2 FEF50/FIF50 0.21 90-100 0.29 43 FIVC 1.90 1.80 -5 ZYI70-61 0.28 0.80 1.81 3.27 15 -3.03 0.47 26 66 -2.43 ExpiredTime 10.90 8.28 -24 TimeToFEFMax 0.08 0.05 -34 TINO 0.05 0.04 -24 VolExtrap% 2 2 -24 LUNG DIFFUSION DLCOunc 13.18 14.68 19.65 25.80 67 -2.22 DLCOStdPB 12.94 14.68 19.65 25.80 65 -2.32 VA 3.32 3.84 4.82 5.91 68 -2.61 Kco 3.91 3.07 4.03 5.14 96 -0.20 Comments: Medications and Allergies were reviewed for possible drug interactions per policy. No contraindications or sensitivities were noted. Meds taken: No inhaled respiratory medications taken before testing. 4 puffs Albuterol (360 mcg) delivered by MDI via holding chamber. HR pre = 84 /min, HR post = 84 /min. Current ATS/ERS acceptability and repeatability standards for spirometry met. Start of test and EOFE criteria met. Current ATS/ERS acceptability and repeatability standards for DLCO met with 2 acceptable maneuvers. FVC_PRE (L) : 1.91 L FVC_POST (L) : 1.91 L FVC_PRED (L) : 2.89 L FVC_LLN (L) : 2.02 L FVC_ULN (L) : 3.78 L FEV1_PRE (L) : 1.05 L FEV1_POST (L) : 1.15 L FEV1_PRED (L) : 2.21 L FEV1_LLN (L) : 1.53 L FEV1_ULN (L) : 2.86 L FEV1/FVC_PRE (%) : 55 % FEV1/FVC_POST (%) : 60 % FEV1/FVC_PRED (%) : 78 % FEV1/FVC_LLN (%) : 65 % RFR72_TFU (L/S) : 1.62 L/S VAU90_BJVO (L/S) : 2.63 L/S NEC65_RXT (L/S) : 0.09 L/S JAR19_FNOH (L/S) : 0.18 L/S BLQ67_BBYJ (L/S) : 0.43 L/S LMQ17_KXD (L/S) : 0.15 L/S PKO95_IPK (L/S) : 1.19 L/S VQI54-61%_PRE (L/S) : 0.28 L/S JWK44-55%_POST (L/S) : 0.47 L/S FOX31-74%_PRED (L/S) : 1.81 L/S DFE65-52%_LLN (L/S) : 0.80 L/S PEF_PRE (L/S) : 3.54 L/S PEF_POST (L/S) : 3.86 L/S PEFMAX_LLN (L/S) : 3.81 L/S PEFMAX_ULN (L/S) : 7.45 L/S SVC_PRED (L) : 2.89 L/S SVC_LLN (L) : 2.02 L/S SVC_ULN (L/S) : 3.78 L/S IC_PRED (L) : 1.93 L/S ERV_PREDICTED (L) : 0.96 L/S DLCO (ML/MIN/MMHG) : 13.18 ml/min/mmHg DLCO_PRED (ML/MIN/MMHG) : 19.65 ml/min/mmHg DLCO_LLN(ML/MIN/MMHG) : 14.68 ml/min/mmHg DLCO_ULN (ML/MIN/MMHG) : 25.80 ml/min/mmHg FET_PRE (S) : 10.90 S FET_POST (S) : 8.28 S VA (L) : 3.32 L VA_PRD (L) : 4.82 L DLCO/VA (ML/MIN/MMHG/L) : 0.04 ml/min/mmHg/L DLCO_VA_PRED (L) : 0.04 ml/min/mmHg/L DLCOCOR (ML/MIN/MMHG) : 12.94 ml/min/mmHg DLCOCOR_PRED (ML/MIN/MMHG) : 19.65 ml/min/mmHg DLCO/VACOR (ML/MIN/MMHG/L) : 0.04 ml/min/mmHg/L Normal [facility] Basic Metabolic Profile (BMP )on 01-10-2025 BUN Normal 09-16 [facility] Comment on above: Result Comment: Canc elled via OM: Order cancelled - Patient discharged Performed By: #### L 500.2500, L100.0100 ####[facility] [address] [place], [address] BUN/CRE Normal - [facility] Comment on above: Result Comment: Canc elled via OM: Order cancelled - Patient discharged Performed By: #### L 500.2500, L100.0100 ####[facility] [address] [place], [address] Calcium Normal 7.6-11.0 [facility] Comment on above: Result Comment: Canc elled via OM: Order cancelled - Patient discharged Performed By: #### L 500.2500, L100.0100 ####[facility] [address] [place], [address] CL Normal 98-108 [facility] Comment on above: Result Comment: Canc elled via OM: Order cancelled - Patient discharged Performed By: #### L 500.2500, L100.0100 ####[facility] [address] [place], [address] CO2 Normal 21.0-32.0 [facility] Comment on above: Result Comment: Canc elled via OM: Order cancelled - Patient discharged Performed By: #### L 500.2500, L100.0100 ####[facility] [address] [place], [address] CREAT,SERUM Normal 0.70-1.20 [facility] Comment on above: Result Comment: Canc elled via OM: Order cancelled - Patient discharged Performed By: #### L 500.2500, L100.0100 ####[facility] [address] [place], [address] eGFR Normal >60 [facility] Comment on above: Result Comment: Canc elled via OM: Order cancelled - Patient discharged Performed By: #### L 500.2500, L100.0100 ####[facility] [address] [place], [address] GAP Normal 5-15 [facility] Comment on above: Result Comment: Canc elled via OM: Order cancelled - Patient discharged Performed By: #### L 500.2500, L100.0100 ####[facility] [address] [place], [address] GLU Normal 70-99 [facility] Comment on above: Result Comment: Canc elled via OM: Order cancelled - Patient discharged Performed By: #### L 500.2500, L100.0100 ####[facility] [address] [place], [address] Potassium Normal 3.3-5.1 [facility] Comment on above: Result Comment: Canc elled via OM: Order cancelled - Patient discharged Performed By: #### L 500.2500, L100.0100 ####[facility] [address] [place], [address] Basic Metabolic Profile (BMP) Normal 133-145 [facility] Comment on above: Result Comment: Canc elled via OM: Order cancelled - Patient discharged Performed By: #### L 500.2500, L100.0100 ####[facility] [address] [place], [address] CBC W/Diff, Automatedon 08- Absolute Neut Normal 2.0-7.7 [facility] Comment on above: Result Comment: Canc elled via OM: Order cancelled - Patient discharged Performed By: #### L 500.2500, L100.0100 ####[facility] [address] [place], [address] HCT Normal 37-47 [facility] Comment on above: Result Comment: Canc elled via OM: Order cancelled - Patient discharged Performed By: #### L 500.2500, L100.0100 ####[facility] [address] [place], [address] HGB Normal 12.0-15.0 [facility] Comment on above: Result Comment: Canc elled via OM: Order cancelled - Patient discharged Performed By: #### L 500.2500, L100.0100 ####[facility] [address] [place], [address] MCH Normal 27.0-32.0 [facility] Comment on above: Result Comment: Canc elled via OM: Order cancelled - Patient discharged Performed By: #### L 500.2500, L100.0100 ####[facility] [address] [place], [address] MCHC Normal 32-36 [facility] Comment on above: Result Comment: Canc elled via OM: Order cancelled - Patient discharged Performed By: #### L 500.2500, L100.0100 ####[facility] [address] [place], [address] MCV Normal 81-99 [facility] Comment on above: Result Comment: Canc elled via OM: Order cancelled - Patient discharged Performed By: #### L 500.2500, L100.0100 ####[facility] [address] [place], [address] NEUT% Normal 47-70 [facility] Comment on above: Result Comment: Canc elled via OM: Order cancelled - Patient discharged Performed By: #### L 500.2500, L100.0100 ####[facility] [address] [place], [address] PLT Normal 150-450 [facility] Comment on above: Result Comment: Canc elled via OM: Order cancelled - Patient discharged Performed By: #### L 500.2500, L100.0100 ####[facility] [address] [place], [address] RBC Normal 4.2-5.4 [facility] Comment on above: Result Comment: Canc elled via OM: Order cancelled - Patient discharged Performed By: #### L 500.2500, L100.0100 ####[facility] [address] [place], [address] RDW CV Normal 11.6-14.6 [facility] Comment on above: Result Comment: Canc elled via OM: Order cancelled - Patient discharged Performed By: #### L 500.2500, L100.0100 ####[facility] [address] [place], [address] RDW SD Normal 35.1-43.9 [facility] Comment on above: Result Comment: Canc elled via OM: Order cancelled - Patient discharged Performed By: #### L 500.2500, L100.0100 ####[facility] [address] [place], [address] WBC Normal 4.4-11.0 [facility] Comment on above: Result Comment: Canc elled via OM: Order cancelled - Patient discharged Performed By: #### L 500.2500, L100.0100 ####[facility] [address] [place], [address] Basic Metabolic Profile (BMP )on 01-09-2025 BUN Normal 4-19 [facility] Comment on above: Result Comment: Canc elled via OM: Order cancelled - Patient discharged Performed By: #### L 500.2500, L100.0100 ####[facility] [address] [place], [address] BUN/CRE Normal 10-20 [facility] Comment on above: Result Comment: Canc elled via OM: Order cancelled - Patient discharged Performed By: #### L 500.2500, L100.0100 ####[facility] [address] [place], [address] Calcium Normal 7.6-11.0 [facility] Comment on above: Result Comment: Canc elled via OM: Order cancelled - Patient discharged Performed By: #### L 500.2500, L100.0100 ####[facility] [address] [place], [address] CL Normal 98-108 [facility] Comment on above: Result Comment: Canc elled via OM: Order cancelled - Patient discharged Performed By: #### L 500.2500, L100.0100 ####[facility] [address] [place], [address] CO2 Normal 21.0-32.0 [facility] Comment on above: Result Comment: Canc elled via OM: Order cancelled - Patient discharged Performed By: #### L 500.2500, L100.0100 ####[facility] [address] [place], [address] CREAT,SERUM Normal 0.70-1.20 [facility] Comment on above: Result Comment: Canc elled via OM: Order cancelled - Patient discharged Performed By: #### L 500.2500, L100.0100 ####[facility] [address] [place], [address] eGFR Normal >60 [facility] Comment on above: Result Comment: Canc elled via OM: Order cancelled - Patient discharged Performed By: #### L 500.2500, L100.0100 ####[facility] [address] [place], [address] GAP Normal 5-15 [facility] Comment on above: Result Comment: Canc elled via OM: Order cancelled - Patient discharged Performed By: #### L 500.2500, L100.0100 ####[facility] [address] [place], [address] GLU Normal 70-99 [facility] Comment on above: Result Comment: Canc elled via OM: Order cancelled - Patient discharged Performed By: #### L 500.2500, L100.0100 ####[facility] [address] [place], [address] Potassium Normal 3.3-5.1 [facility] Comment on above: Result Comment: Canc elled via OM: Order cancelled - Patient discharged Performed By: #### L 500.2500, L100.0100 ####[facility] [address] [place], [address] Basic Metabolic Profile (BMP) Normal 133-145 [facility] Comment on above: Result Comment: Canc elled via OM: Order cancelled - Patient discharged Performed By: #### L 500.2500, L100.0100 ####[facility] [address] [place], [address] CBC W/Diff, Automatedon - Absolute Neut Normal 2.0-7.7 [facility] Comment on above: Result Comment: Canc elled via OM: Order cancelled - Patient discharged Performed By: #### L 500.2500, L100.0100 ####[facility] [address] [place], [address] HCT Normal 37-47 [facility] Comment on above: Result Comment: Canc elled via OM: Order cancelled - Patient discharged Performed By: #### L 500.2500, L100.0100 ####[facility] [address] [place], [address] HGB Normal 12.0-15.0 [facility] Comment on above: Result Comment: Canc elled via OM: Order cancelled - Patient discharged Performed By: #### L 500.2500, L100.0100 ####[facility] [address] [place], [address] MCH Normal 27.0-32.0 [facility] Comment on above: Result Comment: Canc elled via OM: Order cancelled - Patient discharged Performed By: #### L 500.2500, L100.0100 ####[facility] [address] [place], [address] MCHC Normal 32-36 [facility] Comment on above: Result Comment: Canc elled via OM: Order cancelled - Patient discharged Performed By: #### L 500.2500, L100.0100 ####[facility] [address] [place], [address] MCV Normal 81-99 [facility] Comment on above: Result Comment: Canc elled via OM: Order cancelled - Patient discharged Performed By: #### L 500.2500, L100.0100 ####[facility] [address] [place], [address] NEUT% Normal 47-70 [facility] Comment on above: Result Comment: Canc elled via OM: Order cancelled - Patient discharged Performed By: #### L 500.2500, L100.0100 ####[facility] [address] [place], [address] PLT Normal 150-450 [facility] Comment on above: Result Comment: Canc elled via OM: Order cancelled - Patient discharged Performed By: #### L 500.2500, L100.0100 ####[facility] [address] [place], [address] RBC Normal 4.2-5.4 [facility] Comment on above: Result Comment: Canc elled via OM: Order cancelled - Patient discharged Performed By: #### L 500.2500, L100.0100 ####[facility] [address] [place], [address] RDW CV Normal 11.6-14.6 [facility] Comment on above: Result Comment: Canc elled via OM: Order cancelled - Patient discharged Performed By: #### L 500.2500, L100.0100 ####[facility] [address] [place], [address] RDW SD Normal 35.1-43.9 [facility] Comment on above: Result Comment: Canc elled via OM: Order cancelled - Patient discharged Performed By: #### L 500.2500, L100.0100 ####[facility] [address] [place], [address] WBC Normal 4.4-11.0 [facility] Comment on above: Result Comment: Canc elled via OM: Order cancelled - Patient discharged Performed By: #### L 500.2500, L100.0100 ####[facility] [address] [place], [address] Absolute lymphocyte countOrd ered By: Laura Sol on 01-08-2025 Lymphocytes Auto (Unsp spec) [#/Vol] 0.37 10*3/uL Low 0.83-4.51 [facility] Absolute neutrophil countOrd ered By: Laurameka Sol on 01-08-2025 Neutrophils (Bld) [#/Vol] 4.8 10*3/uL 2.0-7.7 [facility] Anion gap in Serum or Plasma Ordered By: Laura Sol on 01-08-2025 Anion gap [Moles/Vol] 15 mmol/L 5-15 [facility] Automated lymphocyte count a s percentage of total leukocytesOrdered By: Laura Sol on 01-08-2025 Lymphocytes/100 WBC Auto (Unsp spec) 6.7 % Low 19-41 [facility] BUN/creatinine ratioOrdered By: Laura Sol on 01-08-2025 Urea nitrogen/Creatinine [Mass ratio] 29.1 mg/mg High 10-20 [facility] Basic Metabolic Profile (BMP )on 01-08-2025 BUN/CRE 29.1 RATIO High 10-20 [facility] Comment on above: Performed By: #### L 500.2500, L100.0100 ####[facility] [address] [place], [address] Calcium [Mass/Vol] 8.4 mg/dL Normal 7.6-11.0 [facility] Comment on above: Performed By: #### L 500.2500, L100.0100 ####[facility] [address] [place], [address] Chloride [Moles/Vol] 94 mmol/L Low 98-108 [facility] Comment on above: Performed By: #### L 500.2500, L100.0100 ####[facility] [address] [place], [address] CO2 [Moles/Vol] 31.3 mmol/L Normal 21.0-32.0 [facility] Comment on above: Performed By: #### L 500.2500, L100.0100 ####[facility] [address] [place], [address] Creatinine [Mass/Vol] 2.19 mg/dL High 0.70-1.20 [facility] Comment on above: Performed By: #### L 500.2500, L100.0100 ####[facility] [address] [place], [address] ECRCL 29.86 ml/min Low 50-250 [facility] Comment on above: Performed By: #### L 500.2500, L100.0100 ####[facility] [address] [place], [address] GAP 15 Normal 5-15 [facility] Comment on above: Performed By: #### L 500.2500, L100.0100 ####[facility] [address] [place], [address] GFR/1.73 sq M.predicted among non-blacks MDRD (S/P/Bld) [Vol rate/Area] 23 mL/min/{1.73_m2} Low >60 [facility] Comment on above: Result Comment: mL/m in/1.73m2 CKD-EPI Creatinine Equation (2020) Performed By: #### L 500.2500, L100.0100 ####[facility] [address] [place], [address] Glucose [Mass/Vol] 125 mg/dL High 70-99 [facility] Comment on above: Performed By: #### L 500.2500, L100.0100 ####[facility] [address] [place], [address] Potassium [Moles/Vol] 4.1 mmol/L Normal 3.3-5.1 [facility] Comment on above: Performed By: #### L 500.2500, L100.0100 ####[facility] [address] [place], [address] Sodium [Moles/Vol] 140 mmol/L Normal 133-145 [facility] Comment on above: Performed By: #### L 500.2500, L100.0100 ####[facility] [address] [place], [address] Urea nitrogen [Mass/Vol] 64 mg/dL High 4-19 [facility] Comment on above: Performed By: #### L 500.2500, L100.0100 ####[facility] [address] [place], [address] Basophil percentageOrdered B y: Laura Sol on 01-08-2025 Basophils/100 WBC (Bld) 0.2 % 0-[address] [facility] CBC W/Diff, Automatedon 12-29 Absolute Lymph 0.37 X10 3/uL Low 0.83-4.51 [facility] Comment on above: Performed By: #### L 500.2500, L100.0100 ####[facility] [address] [place], [address] Absolute Neut 4.8 X10 3/uL Normal 2.0-7.7 [facility] Comment on above: Performed By: #### L 500.2500, L100.0100 ####[facility] [address] [place], [address] Basophils/100 WBC (Bld) 0.2 % Normal 0-[address] [facility] Comment on above: Performed By: #### L 500.2500, L100.0100 ####[facility] [address] [place], [address] Eosinophils/100 WBC (Bld) 0.0 % Normal 0-5 [facility] Comment on above: Performed By: #### L 500.2500, L100.0100 ####[facility] [address] [place], [address] Erythrocyte distribution width (RBC) [Ratio] 13.7 % Normal 11.6-14.6 [facility] Comment on above: Performed By: #### L 500.2500, L100.0100 ####[facility] [address] [place], [address] Hematocrit (Bld) [Volume fraction] 33.1 % Low 37-47 [facility] Comment on above: Performed By: #### L 500.2500, L100.0100 ####[facility] [address] [place], [address] Hemoglobin (Bld) [Mass/Vol] 10.1 g/dL Low 12.0-15.0 [facility] Comment on above: Performed By: #### L 500.2500, L100.0100 ####[facility] [address] [place], [address] IG% 0.900 Normal 0.0-0.9 [facility] Comment on above: Result Comment: IG% - Immature Granulocytes (promyelocytes, myelocytes andmetamyelocytes) > 1% indicates that a LEFT SHIFT is Present. Performed By: #### L 500.2500, L100.0100 ####[facility] [address] [place], [address] Lymphocytes/100 WBC (Bld) 6.7 % Low 19-41 [facility] Comment on above: Performed By: #### L 500.2500, L100.0100 ####[facility] [address] [place], [address] MCH (RBC) [Entitic mass] 31.7 pg Normal 27.0-32.0 [facility] Comment on above: Performed By: #### L 500.2500, L100.0100 ####[facility] [address] [place], [address] MCHC (RBC) [Mass/Vol] 30.5 g/dL Low 32-36 [facility] Comment on above: Performed By: #### L 500.2500, L100.0100 ####[facility] [address] [place], [address] MCV (RBC) [Entitic vol] 103.8 fL High 81-[address] [facility] Comment on above: Performed By: #### L 500.2500, L100.0100 ####[facility] [address] [place], [address] Monocytes/100 WBC (Bld) 4.7 % Normal 0-10 [facility] Comment on above: Performed By: #### L 500.2500, L100.0100 ####[facility] [address] [place], [address] Neutrophils/100 WBC (Bld) 87.5 % High 47-70 [facility] Comment on above: Performed By: #### L 500.2500, L100.0100 ####[facility] [address] [place], [address] Nucleated RBC (Bld) [#/Vol] 0 10*3/uL Normal 0-5 [facility] Comment on above: Performed By: #### L 500.2500, L100.0100 ####[facility] [address] [place], [address] Platelet mean volume (Bld) [Entitic vol] 10.5 fL Normal 6.2-12.0 [facility] Comment on above: Performed By: #### L 500.2500, L100.0100 ####[facility] [address] [place], [address] Platelets (Bld) [#/Vol] 178 10*3/uL Normal 150-450 [facility] Comment on above: Performed By: #### L 500.2500, L100.0100 ####[facility] [address] [place], [address] RBC (Bld) [#/Vol] 3.19 10*6/uL Low 4.2-5.4 [facility] Comment on above: Performed By: #### L 500.2500, L100.0100 ####[facility] [address] [place], [address] RDW SD 52.0 fl High 35.1-43.9 [facility] Comment on above: Performed By: #### L 500.2500, L100.0100 ####[facility] [address] [place], [address] WBC (Bld) [#/Vol] 5.5 10*3/uL Normal 4.4-11.0 [facility] Comment on above: Performed By: #### L 500.2500, L100.0100 ####[facility] [address] [place], [address] Carbon dioxide, total [Moles /volume] in Central venous bloodOrdered By: Laura Sol on 01-08-2025 CO2 [Moles/Vol] 31.3 mmol/L 21.0-32.0 [facility] Chloride assayOrdered By: Erik Sol on 01-08-2025 Chloride [Moles/Vol] 94 mmol/L Low 98-108 [facility] Discharge Instructionon 12-29 Discharge Instruction Normal [facility] Electrocardiogram reportOrde red By: Aris Childs on 01-08-2025 EKG study [facility] Cardiovascular Services [address] [place] [address] 12 Lead EKG 01/05/25 1015 MR#: [id number] Acct: [id number] Name: DESIRE CHAUDHRY Rep #:[id number] : 1950 74 From: Aris Childs MD Attending Dr: Dr. Laura Sol MD Status: ADM IN Ordering Dr: Daisy Rivera MD Date: 01/06/25 Location: U Sex: F C Admitted: 01/05/25 Test Reason : SOB Blood Pressure : */* mmHG Vent. Rate : 65 BPM Atrial Rate : 65 BPM P-R Int : 182 ms QRS Dur : 86 ms QT Int : 392 ms P-R-T Axes : 44 9 45 degrees QTcB Int : 407 ms Normal sinus rhythm with sinus arrhythmia Possible Anterior infarct , age undetermined Abnormal ECG Confirmed by URIEL ROMERO, ARIS ([id number]), visual effects editor CRISTINA ROCK ([id number]) on 01/08/2025 1:03:40 PM Referred By: RODRIGO Confirmed By: ARIS CHILDS MD 01/08/25 1303 Date _ Aris Childs MD CC: Dr. Daisy Rivera MD; Dr. Zee Jose DO; Dr. Laura Sol MD ~ Signed [facility] Other Phone: EKG study [facility] Cardiovascular Services [address] [place] [address] 12 Lead EKG 01/06/25 2305 MR#: [id number] Acct: [id number] Name: DESIRE CHAUDHRY Rep #:[id number] : 1950 74 From: Aris Childs MD Attending Dr: Dr. Laura Sol MD Status: ADM IN Ordering Dr: Lobito Benson MD Date: 01/22 Location: U Sex: F C Admitted: 01/05/25 Test Reason : AFIB RVR Blood Pressure : */* mmHG Vent. Rate : 144 BPM Atrial Rate : * BPM P-R Int : * ms QRS Dur : 190 ms QT Int : 330 ms P-R-T Axes : * 2 135 degrees QTcB Int : 510 ms Critical Test Result: High HR , Arrhythmia Atrial fibrillation with rapid ventricular response Non-specific intra-ventricular conduction block Minimal voltage criteria for LVH, may be normal variant ( Ghanshyam product ) Anterolateral infarct , age undetermined Abnormal ECG When compared with ECG of 05-Jan-2025 10:15, MANUAL COMPARISON REQUIRED DATA IS UNCONFIRMED Confirmed by ARIS CHILDS MD ([id number]), visual effects editor CRISTINA ROCK ([id number]) on 01/08/2025 1:02:22 PM Referred By: Confirmed By: ARIS CHILDS MD 01/08/25 1302 Date _ Aris Childs MD CC: Dr. Lobito Benson MD; Dr. Zee Jose DO; Dr. Laura Sol MD ~ Signed [facility] Other Phone: Eosinophil percentageOrdered By: Laura Sol on 01-08-2025 Eosinophils/100 WBC (Bld) 0.0 % 0-5 [facility] Erythrocyte distribution wid th ratioOrdered By: Laura Sol on 01-08-2025 Erythrocyte distribution width (RBC) [Ratio] 13.7 % 11.6-14.6 [facility] Erythrocyte distribution wid th standard deviationOrdered By: Laura Sol on 01-08-2025 Erythrocyte distribution width (RBC) [Ratio] 52.0 fl High 35.1-43.9 [facility] Glomerular filtration rate ( GFR) estimation/1.73 sq m using serum, plasma, or whole bOrdered By: Laura Sol on 01-08-2025 GFR/1.73 sq M.predicted among non-blacks MDRD (S/P/Bld) [Vol rate/Area] 23 mL/min/{1.73_m2} Low >60 [facility] Comment on above: mL/min/1.73m2 CKD-EP I Creatinine Equation (2020) Hematocrit Auto (Bld) [Volum e fraction]Ordered By: Laura Sol on 01-08-2025 Hematocrit (Bld) [Volume fraction] 33.1 % Low 37-47 [facility] Hemoglobin measurementOrdere d By: Laura Sol on 01-08-2025 Hemoglobin (Bld) [Mass/Vol] 10.1 g/dL Low 12.0-15.0 [facility] Immature granulocytes/100 WB C Auto (Bld)Ordered By: Laura Sol on 01-08-2025 Immature granulocytes/100 WBC (Bld) 0.900 % 0.0-0.9 [facility] Comment on above: IG% - Immature Granu locytes (promyelocytes, myelocytes and metamyelocytes) > 1% indicates that a LEFT SHIFT is Present. MCV (mean corpuscular volume ) determinationOrdered By: Laura Sol on 01-08-2025 MCV (RBC) [Entitic vol] 103.8 fL High 81-[address] [facility] Mean corpuscular hemoglobin (MCH) determinationOrdered By: Laura Sol 01-08-2025 MCH (RBC) [Entitic mass] 31.7 pg 27.0-32.0 [facility] Mean corpuscular hemoglobin concentration (MCHC) determinationOrdered By: Laura Sol 01-08-2025 MCHC (RBC) [Mass/Vol] 30.5 g/dL Low 32-36 [facility] Mean platelet volume determi nationOrdered By: Laura Sol 01-08-2025 Platelet mean volume (Bld) [Entitic vol] 10.5 fL 6.2-12.0 [facility] Monocyte percentageOrdered B y: Laura Sol on 01-08-2025 Monocytes/100 WBC (Bld) 4.7 % 0-[address] [facility] Neutrophil percentageOrdered By: Laura Sol on 01-08-2025 Neutrophils/100 WBC (Bld) 87.5 % High 47-70 [facility] Nucleated red blood cell per centageOrdered By: Laura Sol on 01-08-2025 Nucleated RBC/100 WBC (Bld) [Ratio] 0 % 0-5 [facility] Platelet countOrdered By: Erik Sol on 01-08-2025 Platelets (Bld) [#/Vol] 178 10*3/uL 150-450 [facility] Potassium measurement (mass/ volume)Ordered By: Laura Sol on 01-08-2025 Potassium (Unsp spec) [Mass/Vol] 4.1 mmol/L 3.3-5.1 [facility] RBC Auto (Bld) [#/Vol]Ordere d By: Laura Sol on 01-08-2025 RBC (Bld) [#/Vol] 3.19 10*6/uL Low 4.2-5.4 [facility] Serum creatinine measurement (mass/volume)Ordered By: Laura Sol on 01-08-2025 Creatinine [Mass/Vol] 2.19 mg/dL High 0.70-1.20 [facility] Serum glucose measurement (m ass/volume)Ordered By: Laura Sol on 01-08-2025 Glucose [Mass/Vol] 125 mg/dL High 70-99 [facility] Serum or plasma calcium reese urement (mass/volume)Ordered By: Laura Sol on 01-08-2025 Calcium [Mass/Vol] 8.4 mg/dL 7.6-11.0 [facility] Serum or plasma urea nitroge n measurement (mass/volume)Ordered By: Laura Sol on 01-08-2025 Urea nitrogen [Mass/Vol] 64 mg/dL High 4-19 [facility] Sodium levelOrdered By: Laura Sol on 01-08-2025 Sodium [Moles/Vol] 140 mmol/L 133-145 [facility] White blood cell (WBC) count Ordered By: Laura Sol on 01-08-2025 WBC (Bld) [#/Vol] 5.5 10*3/uL 4.4-11.0 [facility] Basic Metabolic Profile (BMP )on 01-07-2025 BUN/CRE 26.3 RATIO High 10-20 [facility] Comment on above: Performed By: #### L 500.2500, L100.0100, L501.9520 ####[facility] [address] [place], [place], [address] Calcium [Mass/Vol] 8.8 mg/dL Normal 7.6-11.0 [facility] Comment on above: Performed By: #### L 500.2500, L100.0100, L501.9520 ####[facility] [address] [place], [address] Chloride [Moles/Vol] 97 mmol/L Low 98-108 [facility] Comment on above: Performed By: #### L 500.2500, L100.0100, L501.9520 ####[facility] [address] [place], [address] CO2 [Moles/Vol] 32.7 mmol/L High 21.0-32.0 [facility] Comment on above: Performed By: #### L 500.2500, L100.0100, L501.9520 ####[facility] [address] [place], [address] Creatinine [Mass/Vol] 1.96 mg/dL High 0.70-1.20 [facility] Comment on above: Performed By: #### L 500.2500, L100.0100, L501.9520 ####[facility] [address] [place], [address] ECRCL 33.36 ml/min Low 50-250 [facility] Comment on above: Performed By: #### L 500.2500, L100.0100, L501.9520 ####[facility] [address] [place], [address] GAP 11 Normal 5-15 [facility] Comment on above: Performed By: #### L 500.2500, L100.0100, L501.9520 ####[facility] [address] [place], [address] GFR/1.73 sq M.predicted among non-blacks MDRD (S/P/Bld) [Vol rate/Area] 26 mL/min/{1.73_m2} Low >60 [facility] Comment on above: Result Comment: mL/m in/1.73m2 CKD-EPI Creatinine Equation (2020) Performed By: #### L 500.2500, L100.0100, L501.9520 ####[facility] [address] [place], [address] Glucose [Mass/Vol] 123 mg/dL High 70-99 [facility] Comment on above: Performed By: #### L 500.2500, L100.0100, L501.9520 ####[facility] [address] [place], [address] Potassium [Moles/Vol] 4.2 mmol/L Normal 3.3-5.1 [facility] Comment on above: Performed By: #### L 500.2500, L100.0100, L501.9520 ####[facility] [address] [place], [address] Sodium [Moles/Vol] 140 mmol/L Normal 133-145 [facility] Comment on above: Performed By: #### L 500.2500, L100.0100, L501.9520 ####[facility] [address] [place], [address] Urea nitrogen [Mass/Vol] 52 mg/dL High 4-19 [facility] Comment on above: Performed By: #### L 500.2500, L100.0100, L501.9520 ####[facility] [address] [place], [address] CBC W/Diff, Automatedon 08 0-2024 Absolute Lymph 0.53 X10 3/uL Low 0.83-4.51 [facility] Comment on above: Performed By: #### L 500.2500, L100.0100, L501.9520 ####[facility] [address] [place], [address] Absolute Neut 5.5 X10 3/uL Normal 2.0-7.7 [facility] Comment on above: Performed By: #### L 500.2500, L100.0100, L501.9520 ####[facility] [address] [place], [address] Basophils/100 WBC (Bld) 0.0 % Normal 0-[address] [facility] Comment on above: Performed By: #### L 500.2500, L100.0100, L501.9520 ####[facility] [address] [place], [address] Eosinophils/100 WBC (Bld) 0.0 % Normal 0-5 [facility] Comment on above: Performed By: #### L 500.2500, L100.0100, L501.9520 ####[facility] [address] [place], [address] Erythrocyte distribution width (RBC) [Ratio] 13.7 % Normal 11.6-14.6 [facility] Comment on above: Performed By: #### L 500.2500, L100.0100, L501.9520 ####[facility] [address] [place], [address] Hematocrit (Bld) [Volume fraction] 29.4 % Low 37-47 [facility] Comment on above: Performed By: #### L 500.2500, L100.0100, L501.9520 ####[facility] [address] [place], [address] Hemoglobin (Bld) [Mass/Vol] 9.2 g/dL Low 12.0-15.0 [facility] Comment on above: Performed By: #### L 500.2500, L100.0100, L501.9520 ####[facility] [address] [place], [address] IG% 0.800 Normal 0.0-0.9 [facility] Comment on above: Result Comment: IG% - Immature Granulocytes (promyelocytes, myelocytes andmetamyelocytes) > 1% indicates that a LEFT SHIFT is Present. Performed By: #### L 500.2500, L100.0100, L501.20 ####[facility] [address] [place], [address] Lymphocytes/100 WBC (Bld) 8.3 % Low 19-41 [facility] Comment on above: Performed By: #### L 500.2500, L100.0100, L5.20 ####[facility] [address] [place], [address] MCH (RBC) [Entitic mass] 31.7 pg Normal 27.0-32.0 [facility] Comment on above: Performed By: #### L 500.2500, L100.0100, L501.20 ####[facility] [address] [place], [address] MCHC (RBC) [Mass/Vol] 31.3 g/dL Low 32-36 [facility] Comment on above: Performed By: #### L 500.2500, L100.0100, L5.20 ####[facility] [address] [place], [address] MCV (RBC) [Entitic vol] 101.4 fL High 81-[address] [facility] Comment on above: Performed By: #### L 500.2500, L100.0100, L5.20 ####[facility] [address] [place], [address] Monocytes/100 WBC (Bld) 4.7 % Normal 0-[address] [facility] Comment on above: Performed By: #### L 500.2500, L100.0100, L501.20 ####[facility] [address] [place], [address] Neutrophils/100 WBC (Bld) 86.2 % High 47-70 [facility] Comment on above: Performed By: #### L 500.2500, L100.0100, L501.9520 ####[facility] [address] [place], [address] Nucleated RBC (Bld) [#/Vol] 0 10*3/uL Normal 0-5 [facility] Comment on above: Performed By: #### L 500.2500, L100.0100, L501.9520 ####[facility] [address] [place], [address] Platelet mean volume (Bld) [Entitic vol] 10.6 fL Normal 6.2-12.0 [facility] Comment on above: Performed By: #### L 500.2500, L100.0100, L501.9520 ####[facility] [address] [place], [address] Platelets (Bld) [#/Vol] 185 10*3/uL Normal 150-450 [facility] Comment on above: Performed By: #### L 500.2500, L100.0100, L501.9520 ####[facility] [address] [place], [address] RBC (Bld) [#/Vol] 2.90 10*6/uL Low 4.2-5.4 [facility] Comment on above: Performed By: #### L 500.2500, L100.0100, L501.9520 ####[facility] [address] [place], [address] RDW SD 51.0 fl High 35.1-43.9 [facility] Comment on above: Performed By: #### L 500.2500, L100.0100, L501.9520 ####[facility] [address] [place], [address] WBC (Bld) [#/Vol] 6.4 10*3/uL Normal 4.4-11.0 [facility] Comment on above: Performed By: #### L 500.2500, L100.0100, L501.9520 ####[facility] [address] [place], [address] Magnesiumon 01-07-2025 Magnesium [Mass/Vol] 1.8 mg/dL Normal 1.5-2.2 [facility] Comment on above: Performed By: #### L 501.5200 ####[facility] [address] [place], [address] TSH DL <= 0.005 mIU/L QnOrde red By: Daisy White on 01-07-2025 TSH Qn 0.756 uIU/mL 0.300-4.200 [facility] Thyroid Stim Hormone (TSH)on 01-07-2025 TSH 0.756 uIU/mL Normal 0.300-4.200 [facility] Comment on above: Performed By: #### L 500.2500, L100.0100, L501.9520 ####[facility] [address] [place], [address] 12 Lead EKGon 01-06-2025 12 Lead EKG Normal [facility] Basic Metabolic Profile (BMP )on 01-06-2025 BUN/CRE 20.8 RATIO High 10-20 [facility] Comment on above: Performed By: #### L 500.2500, L100.0100 ####[facility] [address] [place], [address] Calcium [Mass/Vol] 9.0 mg/dL Normal 7.6-11.0 [facility] Comment on above: Performed By: #### L 500.2500, L100.0100 ####[facility] [address] [place], [address] Chloride [Moles/Vol] 98 mmol/L Normal 98-108 [facility] Comment on above: Performed By: #### L 500.2500, L100.0100 ####[facility] [address] [place], [address] CO2 [Moles/Vol] 30.2 mmol/L Normal 21.0-32.0 [facility] Comment on above: Performed By: #### L 500.2500, L100.0100 ####[facility] [address] [place], [address] Creatinine [Mass/Vol] 2.00 mg/dL High 0.70-1.20 [facility] Comment on above: Performed By: #### L 500.2500, L100.0100 ####[facility] [address] [place], [address] ECRCL 32.69 ml/min Low 50-250 [facility] Comment on above: Performed By: #### L 500.2500, L100.0100 ####[facility] [address] [place], [address] GAP 11 Normal 5-15 [facility] Comment on above: Performed By: #### L 500.2500, L100.0100 ####[facility] [address] [place], [address] GFR/1.73 sq M.predicted among non-blacks MDRD (S/P/Bld) [Vol rate/Area] 26 mL/min/{1.73_m2} Low >60 [facility] Comment on above: Result Comment: mL/m in/1.73m2 CKD-EPI Creatinine Equation (2020) Performed By: #### L 500.2500, L100.0100 ####[facility] [address] [place], [address] Glucose [Mass/Vol] 118 mg/dL High 70-99 [facility] Comment on above: Performed By: #### L 500.2500, L100.0100 ####[facility] [address] [place], [address] Potassium [Moles/Vol] 4.9 mmol/L Normal 3.3-5.1 [facility] Comment on above: Performed By: #### L 500.2500, L100.0100 ####[facility] [address] [place], [address] Sodium [Moles/Vol] 140 mmol/L Normal 133-145 [facility] Comment on above: Performed By: #### L 500.2500, L100.0100 ####[facility] [address] [place], [address] Urea nitrogen [Mass/Vol] 42 mg/dL High 4-19 [facility] Comment on above: Performed By: #### L 500.2500, L100.0100 ####[facility] [address] [place], [address] CBC W/Diff, Automatedon 08-0 9-2024 Absolute Lymph 0.41 X10 3/uL Low 0.83-4.51 [facility] Comment on above: Performed By: #### L 500.2500, L100.0100 ####[facility] [address] [place], [address] Absolute Neut 4.0 X10 3/uL Normal 2.0-7.7 [facility] Comment on above: Performed By: #### L 500.2500, L100.0100 ####[facility] [address] [place], [address] Basophils/100 WBC (Bld) 0.2 % Normal 0-[address] [facility] Comment on above: Performed By: #### L 500.2500, L100.0100 ####[facility] [address] [place], [address] Eosinophils/100 WBC (Bld) 0.0 % Normal 0-5 [facility] Comment on above: Performed By: #### L 500.2500, L100.0100 ####[facility] [address] [place], [address] Erythrocyte distribution width (RBC) [Ratio] 14.0 % Normal 11.6-14.6 [facility] Comment on above: Performed By: #### L 500.2500, L100.0100 ####[facility] [address] [place], [address] Hematocrit (Bld) [Volume fraction] 29.1 % Low 37-47 [facility] Comment on above: Performed By: #### L 500.2500, L100.0100 ####[facility] [address] [place], [address] Hemoglobin (Bld) [Mass/Vol] 8.8 g/dL Low 12.0-15.0 [facility] Comment on above: Performed By: #### L 500.2500, L100.0100 ####[facility] [address] [place], [address] IG% 1.000 High 0.0-0.9 [facility] Comment on above: Result Comment: IG% - Immature Granulocytes (promyelocytes, myelocytes andmetamyelocytes) > 1% indicates that a LEFT SHIFT is Present. Performed By: #### L 500.2500, L100.0100 ####[facility] [address] [place], [address] Lymphocytes/100 WBC (Bld) 8.5 % Low 19-41 [facility] Comment on above: Performed By: #### L 500.2500, L100.0100 ####[facility] [address] [place], [address] MCH (RBC) [Entitic mass] 31.7 pg Normal 27.0-32.0 [facility] Comment on above: Performed By: #### L 500.2500, L100.0100 ####[facility] [address] [place], [address] MCHC (RBC) [Mass/Vol] 30.2 g/dL Low 32-36 [facility] Comment on above: Performed By: #### L 500.2500, L100.0100 ####[facility] [address] [place], [address] MCV (RBC) [Entitic vol] 104.7 fL High 81-99 [facility] Comment on above: Performed By: #### L 500.2500, L100.0100 ####[facility] [address] [place], [address] Monocytes/100 WBC (Bld) 6.6 % Normal 0-10 [facility] Comment on above: Performed By: #### L 500.2500, L100.0100 ####[facility] [address] [place], [address] Neutrophils/100 WBC (Bld) 83.7 % High 47-70 [facility] Comment on above: Performed By: #### L 500.2500, L100.0100 ####[facility] [address] [place], [address] Nucleated RBC (Bld) [#/Vol] 0 10*3/uL Normal 0-5 [facility] Comment on above: Performed By: #### L 500.2500, L100.0100 ####[facility] [address] [place], [address] Platelet mean volume (Bld) [Entitic vol] 11.2 fL Normal 6.2-12.0 [facility] Comment on above: Performed By: #### L 500.2500, L100.0100 ####[facility] [address] [place], [address] Platelets (Bld) [#/Vol] 165 10*3/uL Normal 150-450 [facility] Comment on above: Performed By: #### L 500.2500, L100.0100 ####[facility] [address] [place], [address] RBC (Bld) [#/Vol] 2.78 10*6/uL Low 4.2-5.4 [facility] Comment on above: Performed By: #### L 500.2500, L100.0100 ####[facility] [address] [place], [address] RDW SD 53.3 fl High 35.1-43.9 [facility] Comment on above: Performed By: #### L 500.2500, L100.0100 ####[facility] [address] [place], [address] WBC (Bld) [#/Vol] 4.8 10*3/uL Normal 4.4-11.0 [facility] Comment on above: Performed By: #### L 500.2500, L100.0100 ####[facility] [address] 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, [address] 12 Lead EKGon 01-05-2025 12 Lead EKG Normal [facility] Absolute lymphocyte countOrd ered By: Lobito Benson on 01-05-2025 Lymphocytes Auto (Unsp spec) [#/Vol] 0.53 10*3/uL Low 0.83-4.51 [facility] Absolute neutrophil countOrd ered By: Lobito Benson on 01-05-2025 Neutrophils (Bld) [#/Vol] 4.3 10*3/uL 2.0-7.7 [facility] Anion gap in Serum or Plasma Ordered By: Lobito Benson on 01-05-2025 Anion gap [Moles/Vol] 8 mmol/L 5-15 [facility] Assessment of wrist artery p atency prior to arterial punctureOrdered By: Laura Sol on 01-05-2025 Arterial patency Wrist artery --pre arterial puncture Positive [facility] Automated lymphocyte count a s percentage of total leukocytesOrdered By: Lobiot Benson on 01-05-2025 Lymphocytes/100 WBC Auto (Unsp spec) 9.6 % Low 19-41 [facility] BUN/creatinine ratioOrdered By: Lobito Benson on 01-05-2025 Urea nitrogen/Creatinine [Mass ratio] 21.3 mg/mg High 10-20 [facility] Basic Metabolic Profile (BMP )on 01-05-2025 BUN/CRE 21.3 RATIO High 10-20 [facility] Comment on above: Performed By: #### L 500.2500, L501.4021, L100.0100 ####[facility] [address] [place], [address] Calcium [Mass/Vol] 9.3 mg/dL Normal 7.6-11.0 [facility] Comment on above: Performed By: #### L 500.2500, L501.4021, L100.0100 ####[facility] [address] [place], [address] Chloride [Moles/Vol] 102 mmol/L Normal 98-108 [facility] Comment on above: Performed By: #### L 500.2500, L501.4021, L100.0100 ####[facility] [address] [place], [address] CO2 [Moles/Vol] 31.4 mmol/L Normal 21.0-32.0 [facility] Comment on above: Performed By: #### L 500.2500, L501.4021, L100.0100 ####[facility] [address] [place], [address] Creatinine [Mass/Vol] 1.79 mg/dL High 0.70-1.20 [facility] Comment on above: Performed By: #### L 500.2500, L501.4021, L100.0100 ####[facility] [address] [place], [address] ECRCL 36.33 ml/min Low 50-250 [facility] Comment on above: Performed By: #### L 500.2500, L501.4021, L100.0100 ####[facility] [address] [place], [address] GAP 8 Normal 5-15 [facility] Comment on above: Performed By: #### L 500.2500, L501.4021, L100.0100 ####[facility] [address] [place], [address] GFR/1.73 sq M.predicted among non-blacks MDRD (S/P/Bld) [Vol rate/Area] 29 mL/min/{1.73_m2} Low >60 [facility] Comment on above: Result Comment: mL/m in/1.73m2 CKD-EPI Creatinine Equation (2020) Performed By: #### L 500.2500, L501.4021, L100.0100 ####[facility] [address] [place], [address] Glucose [Mass/Vol] 96 mg/dL Normal 70-99 [facility] Comment on above: Performed By: #### L 500.2500, L501.4021, L100.0100 ####[facility] [address] [place], [address] Potassium [Moles/Vol] 4.9 mmol/L Normal 3.3-5.1 [facility] Comment on above: Performed By: #### L 500.2500, L501.4021, L100.0100 ####[facility] [address] [place], [address] Sodium [Moles/Vol] 141 mmol/L Normal 133-145 [facility] Comment on above: Performed By: #### L 500.2500, L501.4021, L100.0100 ####[facility] [address] [place], [address] Urea nitrogen [Mass/Vol] 38 mg/dL High 4-19 [facility] Comment on above: Performed By: #### L 500.2500, L501.4021, L100.0100 ####[facility] [address] [place], [address] Basophil percentageOrdered B y: Lobito Benson on 01-05-2025 Basophils/100 WBC (Bld) 0.4 % 0-[address] [facility] R[facility]ON TEST Positive Normal [facility] Comment on above: Performed By: #### L 9000.0800 ####[facility] [address] [place], [address] Base excess Calc (Bld) [Moles/Vol] 10 mmol/L High -2 to +2 [facility] Comment on above: Performed By: #### L 9000.0800 ####[facility] [address] [place], [address] Blood Gas Type ART Normal [facility] Comment on above: Performed By: #### L 9000.0800 ####[facility] [address] [place], [address] CO2 [Moles/Vol] 38 mmol/L Normal [facility] Comment on above: Performed By: #### L 9000.0800 ####[facility] [address] [place], [address] FI02 30.0 Normal [facility] Comment on above: Performed By: #### L 9000.0800 ####[facility] [address] [place], [address] HCO3 (Bld) [Moles/Vol] 35.7 mmol/L High 22-[address] [facility] Comment on above: Performed By: #### L 9000.0800 ####[facility] [address] [place], [address] Mode AVAPS Normal [facility] Comment on above: Performed By: #### L 9000.0800 ####[facility] [address] [place], [address] O2 Delivery Dev BiPAP Normal [facility] Comment on above: Performed By: #### L 9000.0800 ####[facility] [address] [place], [address] pCO2 65.6 mmHg High 35-45 [facility] Comment on above: Performed By: #### L 9000.0800 ####[facility] [address] [place], [address] PEEP 8 Normal [facility] Comment on above: Performed By: #### L 9000.0800 ####[facility] [address] [place], [address] pH (Bld) 7.34 [pH] Low 7.35-7.45 [facility] Comment on above: Performed By: #### L 9000.0800 ####[facility] [address] [place], [address] PO2 59 mmHG Low 75-100 [facility] Comment on above: Performed By: #### L 9000.0800 ####[facility] [address] [place], [address] SITE R Radial Normal [facility] Comment on above: Performed By: #### L 9000.0800 ####[facility] [address] [place], [address] SO2 88 Low 95-99 [facility] Comment on above: Performed By: #### L 9000.0800 ####[facility] [address] [place], [address] Vt 450.0 mL Normal [facility] Comment on above: Performed By: #### L 9000.0800 ####[facility] [address] [place], [address] Base excess Calc (Bld) [Moles/Vol] 3 mmol/L High -2 to +2 [facility] Comment on above: Performed By: #### L 9000.0800 ####[facility] [address] [place], [address] Blood Gas Type ART Normal [facility] Comment on above: Performed By: #### L 9000.0800 ####[facility] [address] [place], [address] CO2 [Moles/Vol] 35 mmol/L Normal [facility] Comment on above: Performed By: #### L 9000.0800 ####[facility] [address] [place], [address] FI02 2.0 Normal [facility] Comment on above: Performed By: #### L 9000.0800 ####[facility] [address] [place], [address] HCO3 (Bld) [Moles/Vol] 32.0 mmol/L High 22-[address] [facility] Comment on above: Performed By: #### L 9000.0800 ####[facility] [address] [place], [address] Mode Not entered Normal [facility] Comment on above: Performed By: #### L 9000.0800 ####[facility] [address] [place], [address] O2 Delivery Dev Cannula Normal [facility] Comment on above: Performed By: #### L 9000.0800 ####[facility] [address] [place], [address] pCO2 97.8 mmHg Invalid Interpretation Code 35-45 [facility] Comment on above: Performed By: #### L 9000.0800 ####[facility] [address] [place], [address] pH (Bld) 7.12 [pH] Invalid Interpretation Code 7.35-7.45 [facility] Comment on above: Performed By: #### L 9000.0800 ####[facility] [address] [place], [address] PO2 57 mmHG Low 75-100 [facility] Comment on above: Performed By: #### L 9000.0800 ####[facility] [address] [place], [address] Read Back By Yes [facility] Comment on above: Performed By: #### L 9000.0800 ####[facility] [address] [place], [address] SITE L Brach Normal [facility] Comment on above: Performed By: #### L 9000.0800 ####[facility] [address] [place], [address] SO2 76 Low 95-99 [facility] Comment on above: Performed By: #### L 9000.0800 ####[facility] [address] [place], [address] Blood base excess determinat ionOrdered By: Laura Sol on 01-05-2025 Base excess Calc (BldV) [Moles/Vol] 10 mmol/L [facility]2-2 [facility] Blood base excess determinat ionOrdered By: Lobito Benson on 01-05-2025 Base excess Calc (BldV) [Moles/Vol] 3 mmol/L [facility]22 [facility] Blood bicarbonate measuremen tOrdered By: Laura Sol on 01-05-2025 HCO3 (Bld) [Moles/Vol] 35.7 mmol/L High - [facility] Blood bicarbonate measuremen tOrdered By: Lobito Benson on 01-05-2025 HCO3 (Bld) [Moles/Vol] 32.0 mmol/L High 22-[address] [facility] CBC W/Diff, Automatedon Absolute Lymph 0.53 X10 3/uL Low 0.83-4.51 [facility] Comment on above: Performed By: #### L 500.2500, L501.4021, L100.0100 ####[facility] [address] [place], [address] Absolute Neut 4.3 X10 3/uL Normal 2.0-7.7 [facility] Comment on above: Performed By: #### L 500.2500, L501.4021, L100.0100 ####[facility] [address] [place], [address] Basophils/100 WBC (Bld) 0.4 % Normal 0-[address] [facility] Comment on above: Performed By: #### L 500.2500, L501.4021, L100.0100 ####[facility] [address] [place], [address] Eosinophils/100 WBC (Bld) 0.2 % Normal 0-5 [facility] Comment on above: Performed By: #### L 500.2500, L501.4021, L100.0100 ####[facility] [address] [place], [address] Erythrocyte distribution width (RBC) [Ratio] 14.5 % Normal 11.6-14.6 [facility] Comment on above: Performed By: #### L 500.2500, L501.4021, L100.0100 ####[facility] [address] [place], [address] Hematocrit (Bld) [Volume fraction] 33.7 % Low 37-47 [facility] Comment on above: Performed By: #### L 500.2500, L501.4021, L100.0100 ####[facility] [address] [place], [address] Hemoglobin (Bld) [Mass/Vol] 10.1 g/dL Low 12.0-15.0 [facility] Comment on above: Performed By: #### L 500.2500, L501.4021, L100.0100 ####[facility] [address] [place], [address] IG% 4.200 High 0.0-0.9 [facility] Comment on above: Result Comment: IG% - Immature Granulocytes (promyelocytes, myelocytes andmetamyelocytes) > 1% indicates that a LEFT SHIFT is Present. Performed By: #### L 500.2500, L501.4021, L100.0100 ####[facility] [address] [place], [address] Lymphocytes/100 WBC (Bld) 9.6 % Low 19-41 [facility] Comment on above: Performed By: #### L 500.2500, L501.4021, L100.0100 ####[facility] [address] [place], [address] MCH (RBC) [Entitic mass] 32.5 pg High 27.0-32.0 [facility] Comment on above: Performed By: #### L 500.2500, L501.4021, L100.0100 ####[facility] [address] [place], [address] MCHC (RBC) [Mass/Vol] 30.0 g/dL Low 32-36 [facility] Comment on above: Performed By: #### L 500.2500, L501.4021, L100.0100 ####[facility] [address] [place], [address] MCV (RBC) [Entitic vol] 108.4 fL High 81-[address] [facility] Comment on above: Performed By: #### L 500.2500, L501.4021, L100.0100 ####[facility] [address] [place], [address] Monocytes/100 WBC (Bld) 8.5 % Normal 0-10 [facility] Comment on above: Performed By: #### L 500.2500, L501.4021, L100.0100 ####[facility] [address] [place], [address] Neutrophils/100 WBC (Bld) 77.1 % High 47-70 [facility] Comment on above: Performed By: #### L 500.2500, L501.4021, L100.0100 ####[facility] [address] [place], [address] Nucleated RBC (Bld) [#/Vol] 0 10*3/uL Normal 0-5 [facility] Comment on above: Performed By: #### L 500.2500, L501.4021, L100.0100 ####[facility] [address] [place], [address] Platelet mean volume (Bld) [Entitic vol] 10.7 fL Normal 6.2-12.0 [facility] Comment on above: Performed By: #### L 500.2500, L501.4021, L100.0100 ####[facility] [address] [place], [address] Platelets (Bld) [#/Vol] 153 10*3/uL Normal 150-450 [facility] Comment on above: Performed By: #### L 500.2500, L501.4021, L100.0100 ####[facility] [address] [place], [address] RBC (Bld) [#/Vol] 3.11 10*6/uL Low 4.2-5.4 [facility] Comment on above: Performed By: #### L 500.2500, L501.4021, L100.0100 ####[facility] [address] [place], [address] RDW SD 57.4 fl High 35.1-43.9 [facility] Comment on above: Performed By: #### L 500.2500, L501.4021, L100.0100 ####[facility] [address] [place], [address] WBC (Bld) [#/Vol] 5.5 10*3/uL Normal 4.4-11.0 [facility] Comment on above: Performed By: #### L 500.2500, L501.4021, L100.0100 ####[facility] [address] [place], [address] Carbon dioxide, total [Moles /volume] in Central venous bloodOrdered By: Lobito Benson on 01-05-2025 CO2 [Moles/Vol] 31.4 mmol/L 21.0-32.0 [facility] Chest PA and Lateralon 01-05 Chest PA and Lateral Normal [facility] Chest without Contraston Chest without Contrast Normal [facility] Chloride assayOrdered By: James Benson on 01-05-2025 Chloride [Moles/Vol] 102 mmol/L 98-108 [facility] Emergency Department Summary on 01-05-2025 Emergency Department Summary Normal [facility] Eosinophil percentageOrdered By: Lobito Benson on 01-05-2025 Eosinophils/100 WBC (Bld) 0.2 % 0-5 [facility] Erythrocyte distribution wid th ratioOrdered By: Lobito Benson on 01-05-2025 Erythrocyte distribution width (RBC) [Ratio] 14.5 % 11.6-14.6 [facility] Erythrocyte distribution wid th standard deviationOrdered By: Lobito Benson on 01-05-2025 Erythrocyte distribution width (RBC) [Ratio] 57.4 fl High 35.1-43.9 [facility] Glomerular filtration rate ( GFR) estimation/1.73 sq m using serum, plasma, or whole bOrdered By: Lobito Benson on 01-05-2025 GFR/1.73 sq M.predicted among non-blacks MDRD (S/P/Bld) [Vol rate/Area] 29 mL/min/{1.73_m2} Low >60 [facility] Comment on above: mL/min/1.73m2 CKD-EP I Creatinine Equation (2020) H AND P Exam - Hospitaliston 01-05-2025 H&P Exam - Hospitalist Normal [facility] Hematocrit Auto (Bld) [Volum e fraction]Ordered By: Lobito Benson on 01-05-2025 Hematocrit (Bld) [Volume fraction] 33.7 % Low 37-47 [facility] Hemoglobin measurementOrdere d By: Lobito Benson on 01-05-2025 Hemoglobin (Bld) [Mass/Vol] 10.1 g/dL Low 12.0-15.0 [facility] Immature granulocytes/100 WB C Auto (Bld)Ordered By: Lobito Benson on 01-05-2025 Immature granulocytes/100 WBC (Bld) 4.200 % High 0.0-0.9 [facility] Comment on above: IG% - Immature Granu locytes (promyelocytes, myelocytes and metamyelocytes) > 1% indicates that a LEFT SHIFT is Present. L501.4021on 01-05-2025 Trop T High Sen 37 ng/L High <=14 [facility] Comment on above: Performed By: #### L 500.2500, L501.4021, L100.0100 ####[facility] [address] [place], [address] Legionella Antigen Urineon 0 01-05-2025 LEGU Normal [facility] Comment on above: Performed By: #### M 300.4500, M300.4600 ####[facility] [address] [place], [address] MCV (mean corpuscular volume ) determinationOrdered By: Lobito Benson on 01-05-2025 MCV (RBC) [Entitic vol] 108.4 fL High 81-99 [facility] Mean corpuscular hemoglobin (MCH) determinationOrdered By: Lobito Benson on 01-05-2025 MCH (RBC) [Entitic mass] 32.5 pg High 27.0-32.0 [facility] Mean corpuscular hemoglobin concentration (MCHC) determinationOrdered By: Lobito Benson on 01-05-2025 MCHC (RBC) [Mass/Vol] 30.0 g/dL Low 32-36 [facility] Mean platelet volume determi nationOrdered By: Lobito Benson on 01-05-2025 Platelet mean volume (Bld) [Entitic vol] 10.7 fL 6.2-12.0 [facility] Measurement, pHOrdered By: Dat Sol on 01-05-2025 pH (Unsp spec) 7.34 [pH] Low 7.35-7.45 [facility] Measurement, pHOrdered By: Acosta Benson on 01-05-2025 pH (Unsp spec) 7.12 [pH] Low 7.35-7.45 [facility] Monocyte percentageOrdered B y: Lobito Benson on 01-05-2025 Monocytes/100 WBC (Bld) 8.5 % 0-10 [facility] Neutrophil percentageOrdered By: Lobito Benson on 01-05-2025 Neutrophils/100 WBC (Bld) 77.1 % High 47-70 [facility] No Panel InformationOrdered By: Laura Sol on 01-05-2025 Bedside Blood Gas PEEP 8 [facility] Blood Gas Sample Site R Radial [facility] Blood Gas Specimen Type ART [facility] Blood Gas Tidal Volume 450.0 mL [facility] Blood Gas Vent Mode AVAPS [facility] Oxygen Delivery Device BiPAP [facility] No Panel InformationOrdered By: Lobito Benson on 01-05-2025 Bld Gas Crit Called To/Read Back By Yes [facility] Blood Gas Sample Site L Joselin [facility] Blood Gas Specimen Type ART [facility] Blood Gas Vent Mode Not entered [facility] Oxygen Delivery Device Cannula [facility] Nucleated red blood cell per centageOrdered By: Lobito Benson on 01-05-2025 Nucleated RBC/100 WBC (Bld) [Ratio] 0 % 0-5 [facility] Platelet countOrdered By: James Benson on 01-05-2025 Platelets (Bld) [#/Vol] 153 10*3/uL 150-450 [facility] Potassium measurement (mass/ volume)Ordered By: Lobito Benson on 01-05-2025 Potassium (Unsp spec) [Mass/Vol] 4.9 mmol/L 3.3-5.1 [facility] RBC Auto (Bld) [#/Vol]Ordere d By: Lobito Benson on 01-05-2025 RBC (Bld) [#/Vol] 3.11 10*6/uL Low 4.2-5.4 [facility] Respiratory pathogens detect ion panel by molecular detection methodOrdered By: Laura Sol on 01-05-2025 Respiratory pathogens DNA and RNA panel NICOLE+probe (Resp) [facility] Serum creatinine measurement (mass/volume)Ordered By: Lobito Benson on 01-05-2025 Creatinine [Mass/Vol] 1.79 mg/dL High 0.70-1.20 [facility] Serum glucose measurement (m ass/volume)Ordered By: Lobito Benson on 01-05-2025 Glucose [Mass/Vol] 96 mg/dL 70-99 [facility] Serum or plasma calcium reese urement (mass/volume)Ordered By: Lobito Benson on 01-05-2025 Calcium [Mass/Vol] 9.3 mg/dL 7.6-11.0 [facility] Serum or plasma urea nitroge n measurement (mass/volume)Ordered By: Lobito Benson on 01-05-2025 Urea nitrogen [Mass/Vol] 38 mg/dL High 4-19 [facility] Sodium levelOrdered By: Lobito Benson on 01-05-2025 Sodium [Moles/Vol] 141 mmol/L 133-145 [facility] Strep pneumoniae Antig(UR,CS F)on 01-05-2025 STPAG Normal [facility] Comment on above: Performed By: #### M 300.4500, M300.4600 ####[facility] [address] [place], [place], [id number] Total carbon dioxide measure mentOrdered By: Laura Sol on 01-05-2025 CO2 [Moles/Vol] 38 mmol/L [facility] Total carbon dioxide measure mentOrdered By: Lobito Benson on 01-05-2025 CO2 [Moles/Vol] 35 mmol/L [facility] Troponin T HS 2 HRon 025 Trop T High Sen 31 ng/L High <=14 [facility] Comment on above: Performed By: #### L 499.0042 ####[facility] [address] [place], [address] Troponin T.cardiac [Mass/vol ume] in Serum or Plasma by High sensitivity methodOrdered By: Lobito Benson on 01-05-2025 Troponin T.cardiac High sensitivity method [Mass/Vol] 31 ng/L High <14 [facility] Troponin T.cardiac High sensitivity method [Mass/Vol] 37 ng/L High <14 [facility] Urine Legionella pneumophila antigen detectionOrdered By: Laura Sol on 01-05-2025 L. pneumophila Ag Ql (U) [facility] White blood cell (WBC) count Ordered By: Lobito Benson on 01-05-2025 WBC (Bld) [#/Vol] 5.5 10*3/uL 4.4-11.0 [facility] Basic Metabolic Profile (BMP )on 11-09-2024 BUN Normal 4-19 [facility] Comment on above: Result Comment: Canc elled via OM: Order cancelled - Patient discharged Performed By: #### L 500.2500, L100.0100 ####[facility] [address] [place], [place], [id number] BUN/CRE Normal 10-20 [facility] Comment on above: Result Comment: Canc elled via OM: Order cancelled - Patient discharged Performed By: #### L 500.2500, L100.0100 ####[facility] [address] [place], [address] Calcium Normal 7.6-11.0 [facility] Comment on above: Result Comment: Canc elled via OM: Order cancelled - Patient discharged Performed By: #### L 500.2500, L100.0100 ####[facility] [address] [place], [address] CL Normal 98-108 [facility] Comment on above: Result Comment: Canc elled via OM: Order cancelled - Patient discharged Performed By: #### L 500.2500, L100.0100 ####[facility] [address] [place], [address] CO2 Normal 21.0-32.0 [facility] Comment on above: Result Comment: Canc elled via OM: Order cancelled - Patient discharged Performed By: #### L 500.2500, L100.0100 ####[facility] [address] [place], [address] CREAT,SERUM Normal 0.70-1.20 [facility] Comment on above: Result Comment: Canc elled via OM: Order cancelled - Patient discharged Performed By: #### L 500.2500, L100.0100 ####[facility] [address] [place], [address] eGFR Normal >60 [facility] Comment on above: Result Comment: Canc elled via OM: Order cancelled - Patient discharged Performed By: #### L 500.2500, L100.0100 ####[facility] [address] [place], [address] GAP Normal 5-15 [facility] Comment on above: Result Comment: Canc elled via OM: Order cancelled - Patient discharged Performed By: #### L 500.2500, L100.0100 ####[facility] [address] [place], [address] GLU Normal 70-99 [facility] Comment on above: Result Comment: Canc elled via OM: Order cancelled - Patient discharged Performed By: #### L 500.2500, L100.0100 ####[facility] [address] [place], [address] Potassium Normal 3.3-5.1 [facility] Comment on above: Result Comment: Canc elled via OM: Order cancelled - Patient discharged Performed By: #### L 500.2500, L100.0100 ####[facility] [address] [place], [address] Basic Metabolic Profile (BMP) Normal 133-145 [facility] Comment on above: Result Comment: Canc elled via OM: Order cancelled - Patient discharged Performed By: #### L 500.2500, L100.0100 ####[facility] [address] [place], [address] CBC W/Diff, Automatedon 06- Absolute Neut Normal 2.0-7.7 [facility] Comment on above: Result Comment: Canc elled via OM: Order cancelled - Patient discharged Performed By: #### L 500.2500, L100.0100 ####[facility] [address] [place], [address] HCT Normal 37-47 [facility] Comment on above: Result Comment: Canc elled via OM: Order cancelled - Patient discharged Performed By: #### L 500.2500, L100.0100 ####[facility] [address] [place], [address] HGB Normal 12.0-15.0 [facility] Comment on above: Result Comment: Canc elled via OM: Order cancelled - Patient discharged Performed By: #### L 500.2500, L100.0100 ####[facility] [address] [place], [address] MCH Normal 27.0-32.0 [facility] Comment on above: Result Comment: Canc elled via OM: Order cancelled - Patient discharged Performed By: #### L 500.2500, L100.0100 ####[facility] [address] [place], [address] MCHC Normal 32-36 [facility] Comment on above: Result Comment: Canc elled via OM: Order cancelled - Patient discharged Performed By: #### L 500.2500, L100.0100 ####[facility] [address] [place], [address] MCV Normal 81-99 [facility] Comment on above: Result Comment: Canc elled via OM: Order cancelled - Patient discharged Performed By: #### L 500.2500, L100.0100 ####[facility] [address] [place], [address] NEUT% Normal 47-70 [facility] Comment on above: Result Comment: Canc elled via OM: Order cancelled - Patient discharged Performed By: #### L 500.2500, L100.0100 ####[facility] [address] [place], [address] PLT Normal 150-450 [facility] Comment on above: Result Comment: Canc elled via OM: Order cancelled - Patient discharged Performed By: #### L 500.2500, L100.0100 ####[facility] [address] [place], [address] RBC Normal 4.2-5.4 [facility] Comment on above: Result Comment: Canc elled via OM: Order cancelled - Patient discharged Performed By: #### L 500.2500, L100.0100 ####[facility] [address] [place], [address] RDW CV Normal 11.6-14.6 [facility] Comment on above: Result Comment: Canc elled via OM: Order cancelled - Patient discharged Performed By: #### L 500.2500, L100.0100 ####[facility] [address] [place], [address] RDW SD Normal 35.1-43.9 [facility] Comment on above: Result Comment: Canc elled via OM: Order cancelled - Patient discharged Performed By: #### L 500.2500, L100.0100 ####[facility] [address] [place], [address] WBC Normal 4.4-11.0 [facility] Comment on above: Result Comment: Canc elled via OM: Order cancelled - Patient discharged Performed By: #### L 500.2500, L100.0100 ####[facility] [address] [place], [address] Basic Metabolic Profile (BMP )on 11-08-2024 BUN Normal 4-19 [facility] Comment on above: Result Comment: Canc elled via OM: Order cancelled - Patient discharged Performed By: #### L 500.2500, L100.0100 ####[facility] [address] [place], [address] BUN/CRE Normal 10-20 [facility] Comment on above: Result Comment: Canc elled via OM: Order cancelled - Patient discharged Performed By: #### L 500.2500, L100.0100 ####[facility] [address] [place], [address] Calcium Normal 7.6-11.0 [facility] Comment on above: Result Comment: Canc elled via OM: Order cancelled - Patient discharged Performed By: #### L 500.2500, L100.0100 ####[facility] [address] [place], [address] CL Normal 98-108 [facility] Comment on above: Result Comment: Canc elled via OM: Order cancelled - Patient discharged Performed By: #### L 500.2500, L100.0100 ####[facility] [address] [place], [address] CO2 Normal 21.0-32.0 [facility] Comment on above: Result Comment: Canc elled via OM: Order cancelled - Patient discharged Performed By: #### L 500.2500, L100.0100 ####[facility] [address] [place], [address] CREAT,SERUM Normal 0.70-1.20 [facility] Comment on above: Result Comment: Canc elled via OM: Order cancelled - Patient discharged Performed By: #### L 500.2500, L100.0100 ####[facility] [address] [place], [address] eGFR Normal >60 [facility] Comment on above: Result Comment: Canc elled via OM: Order cancelled - Patient discharged Performed By: #### L 500.2500, L100.0100 ####[facility] [address] [place], [address] GAP Normal 5-15 [facility] Comment on above: Result Comment: Canc elled via OM: Order cancelled - Patient discharged Performed By: #### L 500.2500, L100.0100 ####[facility] [address] [place], [address] GLU Normal 70-99 [facility] Comment on above: Result Comment: Canc elled via OM: Order cancelled - Patient discharged Performed By: #### L 500.2500, L100.0100 ####[facility] [address] [place], [address] Potassium Normal 3.3-5.1 [facility] Comment on above: Result Comment: Canc elled via OM: Order cancelled - Patient discharged Performed By: #### L 500.2500, L100.0100 ####[facility] [address] [place], [address] Basic Metabolic Profile (BMP) Normal 133-145 [facility] Comment on above: Result Comment: Canc elled via OM: Order cancelled - Patient discharged Performed By: #### L 500.2500, L100.0100 ####[facility] [address] [place], [address] CBC W/Diff, Automatedon - Absolute Neut Normal 2.0-7.7 [facility] Comment on above: Result Comment: Canc elled via OM: Order cancelled - Patient discharged Performed By: #### L 500.2500, L100.0100 ####[facility] [address] [place], [address] HCT Normal 37-47 [facility] Comment on above: Result Comment: Canc elled via OM: Order cancelled - Patient discharged Performed By: #### L 500.2500, L100.0100 ####[facility] [address] [place], [address] HGB Normal 12.0-15.0 [facility] Comment on above: Result Comment: Canc elled via OM: Order cancelled - Patient discharged Performed By: #### L 500.2500, L100.0100 ####[facility] [address] [place], [address] MCH Normal 27.0-32.0 [facility] Comment on above: Result Comment: Canc elled via OM: Order cancelled - Patient discharged Performed By: #### L 500.2500, L100.0100 ####[facility] [address] [place], [address] MCHC Normal 32-36 [facility] Comment on above: Result Comment: Canc elled via OM: Order cancelled - Patient discharged Performed By: #### L 500.2500, L100.0100 ####[facility] [address] [place], [address] MCV Normal 81-99 [facility] Comment on above: Result Comment: Canc elled via OM: Order cancelled - Patient discharged Performed By: #### L 500.2500, L100.0100 ####[facility] [address] [place], [address] NEUT% Normal 47-70 [facility] Comment on above: Result Comment: Canc elled via OM: Order cancelled - Patient discharged Performed By: #### L 500.2500, L100.0100 ####[facility] [address] [place], [address] PLT Normal 150-450 [facility] Comment on above: Result Comment: Canc elled via OM: Order cancelled - Patient discharged Performed By: #### L 500.2500, L100.0100 ####[facility] [address] [place], [address] RBC Normal 4.2-5.4 [facility] Comment on above: Result Comment: Canc elled via OM: Order cancelled - Patient discharged Performed By: #### L 500.2500, L100.0100 ####[facility] [address] [place], [address] RDW CV Normal 11.6-14.6 [facility] Comment on above: Result Comment: Canc elled via OM: Order cancelled - Patient discharged Performed By: #### L 500.2500, L100.0100 ####[facility] [address] [place], [address] RDW SD Normal 35.1-43.9 [facility] Comment on above: Result Comment: Canc elled via OM: Order cancelled - Patient discharged Performed By: #### L 500.2500, L100.0100 ####[facility] [address] [place], [address] WBC Normal 4.4-11.0 [facility] Comment on above: Result Comment: Canc elled via OM: Order cancelled - Patient discharged Performed By: #### L 500.2500, L100.0100 ####[facility] [address] [place], [address] Basic Metabolic Profile (BMP )on 11-07-2024 BUN Normal 4-19 [facility] Comment on above: Result Comment: Canc elled via OM: Order cancelled - Patient discharged Performed By: #### L 500.2500, L100.0100 ####[facility] [address] [place], [address] BUN/CRE Normal 10-20 [facility] Comment on above: Result Comment: Canc elled via OM: Order cancelled - Patient discharged Performed By: #### L 500.2500, L100.0100 ####[facility] [address] [place], [address] Calcium Normal 7.6-11.0 [facility] Comment on above: Result Comment: Canc elled via OM: Order cancelled - Patient discharged Performed By: #### L 500.2500, L100.0100 ####[facility] [address] [place], [address] CL Normal 98-108 [facility] Comment on above: Result Comment: Canc elled via OM: Order cancelled - Patient discharged Performed By: #### L 500.2500, L100.0100 ####[facility] [address] [place], [address] CO2 Normal 21.0-32.0 [facility] Comment on above: Result Comment: Canc elled via OM: Order cancelled - Patient discharged Performed By: #### L 500.2500, L100.0100 ####[facility] [address] [place], [address] CREAT,SERUM Normal 0.70-1.20 [facility] Comment on above: Result Comment: Canc elled via OM: Order cancelled - Patient discharged Performed By: #### L 500.2500, L100.0100 ####[facility] [address] [place], [address] eGFR Normal >60 [facility] Comment on above: Result Comment: Canc elled via OM: Order cancelled - Patient discharged Performed By: #### L 500.2500, L100.0100 ####[facility] [address] [place], [address] GAP Normal 5-15 [facility] Comment on above: Result Comment: Canc elled via OM: Order cancelled - Patient discharged Performed By: #### L 500.2500, L100.0100 ####[facility] [address] [place], [address] GLU Normal 70-99 [facility] Comment on above: Result Comment: Canc elled via OM: Order cancelled - Patient discharged Performed By: #### L 500.2500, L100.0100 ####[facility] [address] [place], [address] Potassium Normal 3.3-5.1 [facility] Comment on above: Result Comment: Canc elled via OM: Order cancelled - Patient discharged Performed By: #### L 500.2500, L100.0100 ####[facility] [address] [place], [address] Basic Metabolic Profile (BMP) Normal 133-145 [facility] Comment on above: Result Comment: Canc elled via OM: Order cancelled - Patient discharged Performed By: #### L 500.2500, L100.0100 ####[facility] [address] [place], [address] CBC W/Diff, Automatedon 06- 0-2024 Absolute Neut Normal 2.0-7.7 [facility] Comment on above: Result Comment: Canc elled via OM: Order cancelled - Patient discharged Performed By: #### L 500.2500, L100.0100 ####[facility] [address] [place], [address] HCT Normal 37-47 [facility] Comment on above: Result Comment: Canc elled via OM: Order cancelled - Patient discharged Performed By: #### L 500.2500, L100.0100 ####[facility] [address] [place], [address] HGB Normal 12.0-15.0 [facility] Comment on above: Result Comment: Canc elled via OM: Order cancelled - Patient discharged Performed By: #### L 500.2500, L100.0100 ####[facility] [address] [place], [address] MCH Normal 27.0-32.0 [facility] Comment on above: Result Comment: Canc elled via OM: Order cancelled - Patient discharged Performed By: #### L 500.2500, L100.0100 ####[facility] [address] [place], [address] MCHC Normal 32-36 [facility] Comment on above: Result Comment: Canc elled via OM: Order cancelled - Patient discharged Performed By: #### L 500.2500, L100.0100 ####[facility] [address] [place], [address] MCV Normal 81-99 [facility] Comment on above: Result Comment: Canc elled via OM: Order cancelled - Patient discharged Performed By: #### L 500.2500, L100.0100 ####[facility] [address] [place], [address] NEUT% Normal 47-70 [facility] Comment on above: Result Comment: Canc elled via OM: Order cancelled - Patient discharged Performed By: #### L 500.2500, L100.0100 ####[facility] [address] [place], [address] PLT Normal 150-450 [facility] Comment on above: Result Comment: Canc elled via OM: Order cancelled - Patient discharged Performed By: #### L 500.2500, L100.0100 ####[facility] [address] [place], [address] RBC Normal 4.2-5.4 [facility] Comment on above: Result Comment: Canc elled via OM: Order cancelled - Patient discharged Performed By: #### L 500.2500, L100.0100 ####[facility] [address] [place], [address] RDW CV Normal 11.6-14.6 [facility] Comment on above: Result Comment: Canc elled via OM: Order cancelled - Patient discharged Performed By: #### L 500.2500, L100.0100 ####[facility] [address] [place], [address] RDW SD Normal 35.1-43.9 [facility] Comment on above: Result Comment: Canc elled via OM: Order cancelled - Patient discharged Performed By: #### L 500.2500, L100.0100 ####[facility] [address] [place], [address] WBC Normal 4.4-11.0 [facility] Comment on above: Result Comment: Canc elled via OM: Order cancelled - Patient discharged Performed By: #### L 500.2500, L100.0100 ####[facility] [address] [place], [address] Basic Metabolic Profile (BMP )on 11-06-2024 BUN Normal 4-19 [facility] Comment on above: Result Comment: Canc elled via OM: Order cancelled - Patient discharged Performed By: #### L 100.0100, L500.2500 ####[facility] [address] [place], [address] BUN/CRE Normal 10-20 [facility] Comment on above: Result Comment: Canc elled via OM: Order cancelled - Patient discharged Performed By: #### L 100.0100, L500.2500 ####[facility] [address] [place], [address] Calcium Normal 7.6-11.0 [facility] Comment on above: Result Comment: Canc elled via OM: Order cancelled - Patient discharged Performed By: #### L 100.0100, L500.2500 ####[facility] [address] [place], [address] CL Normal 98-108 [facility] Comment on above: Result Comment: Canc elled via OM: Order cancelled - Patient discharged Performed By: #### L 100.0100, L500.2500 ####[facility] [address] [place], [address] CO2 Normal 21.0-32.0 [facility] Comment on above: Result Comment: Canc elled via OM: Order cancelled - Patient discharged Performed By: #### L 100.0100, L500.2500 ####[facility] [address] [place], [address] CREAT,SERUM Normal 0.70-1.20 [facility] Comment on above: Result Comment: Canc elled via OM: Order cancelled - Patient discharged Performed By: #### L 100.0100, L500.2500 ####[facility] [address] [place], [address] eGFR Normal >60 [facility] Comment on above: Result Comment: Canc elled via OM: Order cancelled - Patient discharged Performed By: #### L 100.0100, L500.2500 ####[facility] [address] [place], [address] GAP Normal 5-15 [facility] Comment on above: Result Comment: Canc elled via OM: Order cancelled - Patient discharged Performed By: #### L 100.0100, L500.2500 ####[facility] [address] [place], [address] GLU Normal 70-99 [facility] Comment on above: Result Comment: Canc elled via OM: Order cancelled - Patient discharged Performed By: #### L 100.0100, L500.2500 ####[facility] [address] [place], [address] Potassium Normal 3.3-5.1 [facility] Comment on above: Result Comment: Canc elled via OM: Order cancelled - Patient discharged Performed By: #### L 100.0100, L500.2500 ####[facility] [address] [place], [address] Basic Metabolic Profile (BMP) Normal 133-145 [facility] Comment on above: Result Comment: Canc elled via OM: Order cancelled - Patient discharged Performed By: #### L 100.0100, L500.2500 ####[facility] [address] [place], [address] CBC W/Diff, Automatedon 06-0 9-2024 Absolute Neut Normal 2.0-7.7 [facility] Comment on above: Result Comment: Canc elled via OM: Order cancelled - Patient discharged Performed By: #### L 100.0100, L500.2500 ####[facility] [address] [place], [address] HCT Normal 37-47 [facility] Comment on above: Result Comment: Canc elled via OM: Order cancelled - Patient discharged Performed By: #### L 100.0100, L500.2500 ####[facility] [address] [place], [address] HGB Normal 12.0-15.0 [facility] Comment on above: Result Comment: Canc elled via OM: Order cancelled - Patient discharged Performed By: #### L 100.0100, L500.2500 ####[facility] [address] [place], [address] MCH Normal 27.0-32.0 [facility] Comment on above: Result Comment: Canc elled via OM: Order cancelled - Patient discharged Performed By: #### L 100.0100, L500.2500 ####[facility] [address] [place], [address] MCHC Normal 32-36 [facility] Comment on above: Result Comment: Canc elled via OM: Order cancelled - Patient discharged Performed By: #### L 100.0100, L500.2500 ####[facility] [address] [place], [address] MCV Normal 81-99 [facility] Comment on above: Result Comment: Canc elled via OM: Order cancelled - Patient discharged Performed By: #### L 100.0100, L500.2500 ####[facility] [address] [place], [address] NEUT% Normal 47-70 [facility] Comment on above: Result Comment: Canc elled via OM: Order cancelled - Patient discharged Performed By: #### L 100.0100, L500.2500 ####[facility] [address] [place], [address] PLT Normal 150-450 [facility] Comment on above: Result Comment: Canc elled via OM: Order cancelled - Patient discharged Performed By: #### L 100.0100, L500.2500 ####[facility] [address] [place], [address] RBC Normal 4.2-5.4 [facility] Comment on above: Result Comment: Canc elled via OM: Order cancelled - Patient discharged Performed By: #### L 100.0100, L500.2500 ####[facility] [address] [place], [address] RDW CV Normal 11.6-14.6 [facility] Comment on above: Result Comment: Canc elled via OM: Order cancelled - Patient discharged Performed By: #### L 100.0100, L500.2500 ####[facility] [address] [place], [address] RDW SD Normal 35.1-43.9 [facility] Comment on above: Result Comment: Canc elled via OM: Order cancelled - Patient discharged Performed By: #### L 100.0100, L500.2500 ####[facility] [address] [place], [address] WBC Normal 4.4-11.0 [facility] Comment on above: Result Comment: Canc elled via OM: Order cancelled - Patient discharged Performed By: #### L 100.0100, L500.2500 ####[facility] [address] [place], [address] Basic Metabolic Profile (BMP )on 11-05-2024 BUN Normal 4-19 [facility] Comment on above: Result Comment: Canc elled via OM: Order cancelled - Patient discharged Performed By: #### L 100.0100, L500.2500 ####[facility] [address] [place], [address] BUN/CRE Normal 10-20 [facility] Comment on above: Result Comment: Canc elled via OM: Order cancelled - Patient discharged Performed By: #### L 100.0100, L500.2500 ####[facility] [address] [place], [address] Calcium Normal 7.6-11.0 [facility] Comment on above: Result Comment: Canc elled via OM: Order cancelled - Patient discharged Performed By: #### L 100.0100, L500.2500 ####[facility] [address] [place], [address] CL Normal 98-108 [facility] Comment on above: Result Comment: Canc elled via OM: Order cancelled - Patient discharged Performed By: #### L 100.0100, L500.2500 ####[facility] [address] [place], [address] CO2 Normal 21.0-32.0 [facility] Comment on above: Result Comment: Canc elled via OM: Order cancelled - Patient discharged Performed By: #### L 100.0100, L500.2500 ####[facility] [address] [place], [address] CREAT,SERUM Normal 0.70-1.20 [facility] Comment on above: Result Comment: Canc elled via OM: Order cancelled - Patient discharged Performed By: #### L 100.0100, L500.2500 ####[facility] [address] [place], [address] eGFR Normal >60 [facility] Comment on above: Result Comment: Canc elled via OM: Order cancelled - Patient discharged Performed By: #### L 100.0100, L500.2500 ####[facility] [address] [place], [address] GAP Normal 5-15 [facility] Comment on above: Result Comment: Canc elled via OM: Order cancelled - Patient discharged Performed By: #### L 100.0100, L500.2500 ####[facility] [address] [place], [address] GLU Normal 70-99 [facility] Comment on above: Result Comment: Canc elled via OM: Order cancelled - Patient discharged Performed By: #### L 100.0100, L500.2500 ####[facility] [address] [place], [address] Potassium Normal 3.3-5.1 [facility] Comment on above: Result Comment: Canc elled via OM: Order cancelled - Patient discharged Performed By: #### L 100.0100, L500.2500 ####[facility] [address] [place], [address] Basic Metabolic Profile (BMP) Normal 133-145 [facility] Comment on above: Result Comment: Canc elled via OM: Order cancelled - Patient discharged Performed By: #### L 100.0100, L500.2500 ####[facility] [address] [place], [address] CBC W/Diff, Automatedon 06-0 -2024 Absolute Neut Normal 2.0-7.7 [facility] Comment on above: Result Comment: Canc elled via OM: Order cancelled - Patient discharged Performed By: #### L 100.0100, L500.2500 ####[facility] [address] [place], [address] HCT Normal 37-47 [facility] Comment on above: Result Comment: Canc elled via OM: Order cancelled - Patient discharged Performed By: #### L 100.0100, L500.2500 ####[facility] [address] [place], [address] HGB Normal 12.0-15.0 [facility] Comment on above: Result Comment: Canc elled via OM: Order cancelled - Patient discharged Performed By: #### L 100.0100, L500.2500 ####[facility] [address] [place], [address] MCH Normal 27.0-32.0 [facility] Comment on above: Result Comment: Canc elled via OM: Order cancelled - Patient discharged Performed By: #### L 100.0100, L500.2500 ####[facility] [address] [place], [address] MCHC Normal 32-36 [facility] Comment on above: Result Comment: Canc elled via OM: Order cancelled - Patient discharged Performed By: #### L 100.0100, L500.2500 ####[facility] [address] [place], [address] MCV Normal 81-99 [facility] Comment on above: Result Comment: Canc elled via OM: Order cancelled - Patient discharged Performed By: #### L 100.0100, L500.2500 ####[facility] [address] [place], [address] NEUT% Normal 47-70 [facility] Comment on above: Result Comment: Canc elled via OM: Order cancelled - Patient discharged Performed By: #### L 100.0100, L500.2500 ####[facility] [address] [place], [address] PLT Normal 150-450 [facility] Comment on above: Result Comment: Canc elled via OM: Order cancelled - Patient discharged Performed By: #### L 100.0100, L500.2500 ####[facility] [address] [place], [address] RBC Normal 4.2-5.4 [facility] Comment on above: Result Comment: Canc elled via OM: Order cancelled - Patient discharged Performed By: #### L 100.0100, L500.2500 ####[facility] [address] [place], [address] RDW CV Normal 11.6-14.6 [facility] Comment on above: Result Comment: Canc elled via OM: Order cancelled - Patient discharged Performed By: #### L 100.0100, L500.2500 ####[facility] [address] [place], [address] RDW SD Normal 35.1-43.9 [facility] Comment on above: Result Comment: Canc elled via OM: Order cancelled - Patient discharged Performed By: #### L 100.0100, L500.2500 ####[facility] [address] [place], [address] WBC Normal 4.4-11.0 [facility] Comment on above: Result Comment: Canc elled via OM: Order cancelled - Patient discharged Performed By: #### L 100.0100, L500.2500 ####[facility] [address] [place], [address] Culture, Blood (WB)on 2024 CUB Blood cultures x2, f rom two different sites No growth in 5 days. Normal [facility] Comment on above: Performed By: #### L 300.3900, M200.1000, L500.4050, L300.4310, L503.6005, L501.4021, L100.0100 ####[facility] [address] [place], [address] Basic Metabolic Profile (BMP )on 11-04-2024 BUN Normal 4-19 [facility] Comment on above: Result Comment: Canc elled via OM: Order cancelled - Patient discharged Performed By: #### L 500.2500, L100.0100 ####[facility] [address] [place], [address] BUN/CRE Normal 10-20 [facility] Comment on above: Result Comment: Canc elled via OM: Order cancelled - Patient discharged Performed By: #### L 500.2500, L100.0100 ####[facility] [address] [place], [address] Calcium Normal 7.6-11.0 [facility] Comment on above: Result Comment: Canc elled via OM: Order cancelled - Patient discharged Performed By: #### L 500.2500, L100.0100 ####[facility] [address] [place], [address] CL Normal 98-108 [facility] Comment on above: Result Comment: Canc elled via OM: Order cancelled - Patient discharged Performed By: #### L 500.2500, L100.0100 ####[facility] [address] [place], [address] CO2 Normal 21.0-32.0 [facility] Comment on above: Result Comment: Canc elled via OM: Order cancelled - Patient discharged Performed By: #### L 500.2500, L100.0100 ####[facility] [address] [place], [address] CREAT,SERUM Normal 0.70-1.20 [facility] Comment on above: Result Comment: Canc elled via OM: Order cancelled - Patient discharged Performed By: #### L 500.2500, L100.0100 ####[facility] [address] [place], [address] eGFR Normal >60 [facility] Comment on above: Result Comment: Canc elled via OM: Order cancelled - Patient discharged Performed By: #### L 500.2500, L100.0100 ####[facility] [address] [place], [address] GAP Normal 5-15 [facility] Comment on above: Result Comment: Canc elled via OM: Order cancelled - Patient discharged Performed By: #### L 500.2500, L100.0100 ####[facility] [address] [place], [address] GLU Normal 70-99 [facility] Comment on above: Result Comment: Canc elled via OM: Order cancelled - Patient discharged Performed By: #### L 500.2500, L100.0100 ####[facility] [address] [place], [address] Potassium Normal 3.3-5.1 [facility] Comment on above: Result Comment: Canc elled via OM: Order cancelled - Patient discharged Performed By: #### L 500.2500, L100.0100 ####[facility] [address] [place], [address] Basic Metabolic Profile (BMP) Normal 133-145 [facility] Comment on above: Result Comment: Canc elled via OM: Order cancelled - Patient discharged Performed By: #### L 500.2500, L100.0100 ####[facility] [address] [place], [address] CBC W/Diff, Automatedon 06-0 -2024 Absolute Neut Normal 2.0-7.7 [facility] Comment on above: Result Comment: Canc elled via OM: Order cancelled - Patient discharged Performed By: #### L 500.2500, L100.0100 ####[facility] [address] [place], [address] HCT Normal 37-47 [facility] Comment on above: Result Comment: Canc elled via OM: Order cancelled - Patient discharged Performed By: #### L 500.2500, L100.0100 ####[facility] [address] [place], [address] HGB Normal 12.0-15.0 [facility] Comment on above: Result Comment: Canc elled via OM: Order cancelled - Patient discharged Performed By: #### L 500.2500, L100.0100 ####[facility] [address] [place], [address] MCH Normal 27.0-32.0 [facility] Comment on above: Result Comment: Canc elled via OM: Order cancelled - Patient discharged Performed By: #### L 500.2500, L100.0100 ####[facility] [address] [place], [address] MCHC Normal 32-36 [facility] Comment on above: Result Comment: Canc elled via OM: Order cancelled - Patient discharged Performed By: #### L 500.2500, L100.0100 ####[facility] [address] [place], [address] MCV Normal 81-99 [facility] Comment on above: Result Comment: Canc elled via OM: Order cancelled - Patient discharged Performed By: #### L 500.2500, L100.0100 ####[facility] [address] [place], [address] NEUT% Normal 47-70 [facility] Comment on above: Result Comment: Canc elled via OM: Order cancelled - Patient discharged Performed By: #### L 500.2500, L100.0100 ####[facility] [address] [place], [address] PLT Normal 150-450 [facility] Comment on above: Result Comment: Canc elled via OM: Order cancelled - Patient discharged Performed By: #### L 500.2500, L100.0100 ####[facility] [address] [place], [address] RBC Normal 4.2-5.4 [facility] Comment on above: Result Comment: Canc elled via OM: Order cancelled - Patient discharged Performed By: #### L 500.2500, L100.0100 ####[facility] [address] [place], [address] RDW CV Normal 11.6-14.6 [facility] Comment on above: Result Comment: Canc elled via OM: Order cancelled - Patient discharged Performed By: #### L 500.2500, L100.0100 ####[facility] [address] [place], [address] RDW SD Normal 35.1-43.9 [facility] Comment on above: Result Comment: Canc elled via OM: Order cancelled - Patient discharged Performed By: #### L 500.2500, L100.0100 ####[facility] [address] [place], [address] WBC Normal 4.4-11.0 [facility] Comment on above: Result Comment: Canc elled via OM: Order cancelled - Patient discharged Performed By: #### L 500.2500, L100.0100 ####[facility] [address] [place], [address] Absolute lymphocyte countOrd ered By: Laurameka Sol on 11-03-2024 Lymphocytes Auto (Unsp spec) [#/Vol] 0.32 10*3/uL Low 0.83-4.51 [facility] Absolute neutrophil countOrd ered By: Laurameka Sol on 11-03-2024 Neutrophils (Bld) [#/Vol] 4.1 10*3/uL 2.0-7.7 [facility] Anion gap in Serum or Plasma Ordered By: Laura Sol on 11-03-2024 Anion gap [Moles/Vol] 12 mmol/L 5-15 [facility] Automated lymphocyte count a s percentage of total leukocytesOrdered By: Laura Sol on 11-03-2024 Lymphocytes/100 WBC Auto (Unsp spec) 6.9 % Low 19-41 [facility] BUN/creatinine ratioOrdered By: Laura Sol on 11-03-2024 Urea nitrogen/Creatinine [Mass ratio] 21.9 mg/mg High 10-20 [facility] Basic Metabolic Profile (BMP )on 11-03-2024 BUN/CRE 21.9 RATIO High 10-20 [facility] Comment on above: Performed By: #### L 100.0100, L500.2500 ####[facility] [address] [place], [address] Calcium [Mass/Vol] 9.3 mg/dL Normal 7.6-11.0 [facility] Comment on above: Performed By: #### L 100.0100, L500.2500 ####[facility] [address] [place], [address] Chloride [Moles/Vol] 102 mmol/L Normal 98-108 [facility] Comment on above: Performed By: #### L 100.0100, L500.2500 ####[facility] [address] [place], [address] CO2 [Moles/Vol] 27.4 mmol/L Normal 21.0-32.0 [facility] Comment on above: Performed By: #### L 100.0100, L500.2500 ####[facility] [address] [place], [address] Creatinine [Mass/Vol] 1.63 mg/dL High 0.70-1.20 [facility] Comment on above: Performed By: #### L 100.0100, L500.2500 ####[facility] [address] [place], [address] ECRCL 39.78 ml/min Low 50-250 [facility] Comment on above: Performed By: #### L 100.0100, L500.2500 ####[facility] [address] [place], [address] GAP 12 Normal 5-15 [facility] Comment on above: Performed By: #### L 100.0100, L500.2500 ####[facility] [address] [place], [address] GFR/1.73 sq M.predicted among non-blacks MDRD (S/P/Bld) [Vol rate/Area] 33 mL/min/{1.73_m2} Low >60 [facility] Comment on above: Result Comment: mL/m in/1.73m2 CKD-EPI Creatinine Equation (2020) Performed By: #### L 100.0100, L500.2500 ####[facility] [address] [place], [address] Glucose [Mass/Vol] 118 mg/dL High 70-99 [facility] Comment on above: Performed By: #### L 100.0100, L500.2500 ####[facility] [address] [place], [address] Potassium [Moles/Vol] 4.5 mmol/L Normal 3.3-5.1 [facility] Comment on above: Performed By: #### L 100.0100, L500.2500 ####[facility] [address] [place], [address] Sodium [Moles/Vol] 142 mmol/L Normal 133-145 [facility] Comment on above: Performed By: #### L 100.0100, L500.2500 ####[facility] [address] [place], [address] Urea nitrogen [Mass/Vol] 36 mg/dL High 4-19 [facility] Comment on above: Performed By: #### L 100.0100, L500.2500 ####[facility] [address] [place], [address] Basophil percentageOrdered B y: Laura Sol on 11-03-2024 Basophils/100 WBC (Bld) 0.0 % 0-[address] [facility] CBC W/Diff, Automatedon Absolute Lymph 0.32 X10 3/uL Low 0.83-4.51 [facility] Comment on above: Performed By: #### L 100.0100, L500.2500 ####[facility] [address] [place], [address] Absolute Neut 4.1 X10 3/uL Normal 2.0-7.7 [facility] Comment on above: Performed By: #### L 100.0100, L500.2500 ####[facility] [address] [place], [address] Basophils/100 WBC (Bld) 0.0 % Normal 0-[address] [facility] Comment on above: Performed By: #### L 100.0100, L500.2500 ####[facility] [address] [place], [address] Eosinophils/100 WBC (Bld) 0.0 % Normal 0-5 [facility] Comment on above: Performed By: #### L 100.0100, L500.2500 ####[facility] [address] [place], [address] Erythrocyte distribution width (RBC) [Ratio] 14.3 % Normal 11.6-14.6 [facility] Comment on above: Performed By: #### L 100.0100, L500.2500 ####[facility] [address] [place], [address] Hematocrit (Bld) [Volume fraction] 32.4 % Low 37-47 [facility] Comment on above: Performed By: #### L 100.0100, L500.2500 ####[facility] [address] [place], [address] Hemoglobin (Bld) [Mass/Vol] 10.3 g/dL Low 12.0-15.0 [facility] Comment on above: Performed By: #### L 100.0100, L500.2500 ####[facility] [address] [place], [address] IG% 0.900 Normal 0.0-0.9 [facility] Comment on above: Result Comment: IG% - Immature Granulocytes (promyelocytes, myelocytes andmetamyelocytes) > 1% indicates that a LEFT SHIFT is Present. Performed By: #### L 100.0100, L500.2500 ####[facility] [address] [place], [address] Lymphocytes/100 WBC (Bld) 6.9 % Low 19-41 [facility] Comment on above: Performed By: #### L 100.0100, L500.2500 ####[facility] [address] [place], [address] MCH (RBC) [Entitic mass] 31.9 pg Normal 27.0-32.0 [facility] Comment on above: Performed By: #### L 100.0100, L500.2500 ####[facility] [address] [place], [address] MCHC (RBC) [Mass/Vol] 31.8 g/dL Low 32-36 [facility] Comment on above: Performed By: #### L 100.0100, L500.2500 ####[facility] [address] [place], [address] MCV (RBC) [Entitic vol] 100.3 fL High 81-[address] [facility] Comment on above: Performed By: #### L 100.0100, L500.2500 ####[facility] [address] [place], [address] Monocytes/100 WBC (Bld) 3.9 % Normal 0-10 [facility] Comment on above: Performed By: #### L 100.0100, L500.2500 ####[facility] [address] [place], [address] Neutrophils/100 WBC (Bld) 88.3 % High 47-70 [facility] Comment on above: Performed By: #### L 100.0100, L500.2500 ####[facility] [address] [place], [address] Nucleated RBC (Bld) [#/Vol] 0 10*3/uL Normal 0-5 [facility] Comment on above: Performed By: #### L 100.0100, L500.2500 ####[facility] [address] [place], [address] Platelet mean volume (Bld) [Entitic vol] 10.6 fL Normal 6.2-12.0 [facility] Comment on above: Performed By: #### L 100.0100, L500.2500 ####[facility] [address] [place], [address] Platelets (Bld) [#/Vol] 183 10*3/uL Normal 150-450 [facility] Comment on above: Performed By: #### L 100.0100, L500.2500 ####[facility] [address] [place], [address] RBC (Bld) [#/Vol] 3.23 10*6/uL Low 4.2-5.4 [facility] Comment on above: Performed By: #### L 100.0100, L500.2500 ####[facility] [address] [place], [address] RDW SD 51.2 fl High 35.1-43.9 [facility] Comment on above: Performed By: #### L 100.0100, L500.2500 ####[facility] [address] [place], [address] WBC (Bld) [#/Vol] 4.7 10*3/uL Normal 4.4-11.0 [facility] Comment on above: Performed By: #### L 100.0100, L500.2500 ####[facility] [address] [place], [address] Carbon dioxide, total [Moles /volume] in Central venous bloodOrdered By: Laura Sol on 11-03-2024 CO2 [Moles/Vol] 27.4 mmol/L 21.0-32.0 [facility] Chloride assayOrdered By: Erik Sol on 11-03-2024 Chloride [Moles/Vol] 102 mmol/L 98-108 [facility] Discharge Instructionon 06-0 Discharge Instruction Normal [facility] Eosinophil percentageOrdered By: Laura Sol on 11-03-2024 Eosinophils/100 WBC (Bld) 0.0 % 0-5 [facility] Erythrocyte distribution wid th ratioOrdered By: Laura Sol on 11-03-2024 Erythrocyte distribution width (RBC) [Ratio] 14.3 % 11.6-14.6 [facility] Erythrocyte distribution wid th standard deviationOrdered By: Laura Sol on 11-03-2024 Erythrocyte distribution width (RBC) [Ratio] 51.2 fl High 35.1-43.9 [facility] Glomerular filtration rate ( GFR) estimation/1.73 sq m using serum, plasma, or whole bOrdered By: Laurameka Sol on 11-03-2024 GFR/1.73 sq M.predicted among non-blacks MDRD (S/P/Bld) [Vol rate/Area] 33 mL/min/{1.73_m2} Low >60 [facility] Comment on above: mL/min/1.73m2 CKD-EP I Creatinine Equation (2020) Hematocrit Auto (Bld) [Volum e fraction]Ordered By: Laura Sol 11-03-2024 Hematocrit (Bld) [Volume fraction] 32.4 % Low 37-47 [facility] Hemoglobin measurementOrdere d By: [facility]-2024 Hemoglobin (Bld) [Mass/Vol] 10.3 g/dL Low 12.0-15.0 [facility] Immature granulocytes/100 WB C Auto (Bld)Ordered By: Laura Sol 11-03-2024 Immature granulocytes/100 WBC (Bld) 0.900 % 0.0-0.9 [facility] Comment on above: IG% - Immature Granu locytes (promyelocytes, myelocytes and metamyelocytes) > 1% indicates that a LEFT SHIFT is Present. MCV (mean corpuscular volume ) determinationOrdered By: Laura Sol 11-03-2024 MCV (RBC) [Entitic vol] 100.3 fL High 81-[address] [facility] Mean corpuscular hemoglobin (MCH) determinationOrdered By: Laura Sol 11-03-2024 MCH (RBC) [Entitic mass] 31.9 pg 27.0-32.0 [facility] Mean corpuscular hemoglobin concentration (MCHC) determinationOrdered By: Laura Sol on 11-03-2024 MCHC (RBC) [Mass/Vol] 31.8 g/dL Low 32-36 [facility] Mean platelet volume determi nationOrdered By: Laura Sol on 11-03-2024 Platelet mean volume (Bld) [Entitic vol] 10.6 fL 6.2-12.0 [facility] Monocyte percentageOrdered B y: Laura Sol on 11-03-2024 Monocytes/100 WBC (Bld) 3.9 % 0-[address] [facility] Neutrophil percentageOrdered By: Laura Sol on 11-03-2024 Neutrophils/100 WBC (Bld) 88.3 % High 47-70 [facility] Nucleated red blood cell per centageOrdered By: Laura Sol on 11-03-2024 Nucleated RBC/100 WBC (Bld) [Ratio] 0 % 0-5 [facility] Platelet countOrdered By: Na erik Sol on 11-03-2024 Platelets (Bld) [#/Vol] 183 10*3/uL 150-450 [facility] Potassium measurement (mass/ volume)Ordered By: Laura Sol on 11-03-2024 Potassium (Unsp spec) [Mass/Vol] 4.5 mmol/L 3.3-5.1 [facility] RBC Auto (Bld) [#/Vol]Ordere d By: Laura Sol on 11-03-2024 RBC (Bld) [#/Vol] 3.23 10*6/uL Low 4.2-5.4 [facility] Serum creatinine measurement (mass/volume)Ordered By: Laura Sol on 11-03-2024 Creatinine [Mass/Vol] 1.63 mg/dL High 0.70-1.20 [facility] Serum glucose measurement (m ass/volume)Ordered By: Laura Sol on 11-03-2024 Glucose [Mass/Vol] 118 mg/dL High 70-99 [facility] Serum or plasma calcium reese urement (mass/volume)Ordered By: Laura Sol on 11-03-2024 Calcium [Mass/Vol] 9.3 mg/dL 7.6-11.0 [facility] Serum or plasma urea nitroge n measurement (mass/volume)Ordered By: Laura Sol on 11-03-2024 Urea nitrogen [Mass/Vol] 36 mg/dL High 4-19 [facility] Sodium levelOrdered By: Laura Sol on 11-03-2024 Sodium [Moles/Vol] 142 mmol/L 133-145 [facility] White blood cell (WBC) count Ordered By: Laura Sol on 11-03-2024 WBC (Bld) [#/Vol] 4.7 10*3/uL 4.4-11.0 [facility] Basic Metabolic Profile (BMP )on 11-02-2024 BUN/CRE 21.9 RATIO High 10-20 [facility] Comment on above: Performed By: #### L 100.0100, L500.2500 ####[facility] [address] [place], [address] Calcium [Mass/Vol] 8.5 mg/dL Normal 7.6-11.0 [facility] Comment on above: Performed By: #### L 100.0100, L500.2500 ####[facility] [address] [place], [address] Chloride [Moles/Vol] 104 mmol/L Normal 98-108 [facility] Comment on above: Performed By: #### L 100.0100, L500.2500 ####[facility] [address] [place], [address] CO2 [Moles/Vol] 25.5 mmol/L Normal 21.0-32.0 [facility] Comment on above: Performed By: #### L 100.0100, L500.2500 ####[facility] [address] [place], [address] Creatinine [Mass/Vol] 1.65 mg/dL High 0.70-1.20 [facility] Comment on above: Performed By: #### L 100.0100, L500.2500 ####[facility] [address] [place], [address] ECRCL 39.26 ml/min Low 50-250 [facility] Comment on above: Performed By: #### L 100.0100, L500.2500 ####[facility] [address] [place], [address] GAP 11 Normal 5-15 [facility] Comment on above: Performed By: #### L 100.0100, L500.2500 ####[facility] [address] [place], [address] GFR/1.73 sq M.predicted among non-blacks MDRD (S/P/Bld) [Vol rate/Area] 33 mL/min/{1.73_m2} Low >60 [facility] Comment on above: Result Comment: mL/m in/1.73m2 CKD-EPI Creatinine Equation (2020) Performed By: #### L 100.0100, L500.2500 ####[facility] [address] [place], [address] Glucose [Mass/Vol] 131 mg/dL High 70-99 [facility] Comment on above: Performed By: #### L 100.0100, L500.2500 ####[facility] [address] [place], [address] Potassium [Moles/Vol] 4.9 mmol/L Normal 3.3-5.1 [facility] Comment on above: Performed By: #### L 100.0100, L500.2500 ####[facility] [address] [place], [address] Sodium [Moles/Vol] 141 mmol/L Normal 133-145 [facility] Comment on above: Performed By: #### L 100.0100, L500.2500 ####[facility] [address] [place], [address] Urea nitrogen [Mass/Vol] 36 mg/dL High 4-19 [facility] Comment on above: Performed By: #### L 100.0100, L500.2500 ####[facility] [address] [place], [address] CBC W/Diff, Automatedon 06-0 5-2025 Absolute Lymph 0.34 X10 3/uL Low 0.83-4.51 [facility] Comment on above: Performed By: #### L 100.0100, L500.2500 ####[facility] [address] [place], [address] Absolute Neut 4.0 X10 3/uL Normal 2.0-7.7 [facility] Comment on above: Performed By: #### L 100.0100, L500.2500 ####[facility] [address] [place], [address] Basophils/100 WBC (Bld) 0.0 % Normal 0-[address] [facility] Comment on above: Performed By: #### L 100.0100, L500.2500 ####[facility] [address] [place], [address] Eosinophils/100 WBC (Bld) 0.0 % Normal 0-5 [facility] Comment on above: Performed By: #### L 100.0100, L500.2500 ####[facility] [address] [place], [address] Erythrocyte distribution width (RBC) [Ratio] 14.0 % Normal 11.6-14.6 [facility] Comment on above: Performed By: #### L 100.0100, L500.2500 ####[facility] [address] [place], [address] Hematocrit (Bld) [Volume fraction] 29.3 % Low 37-47 [facility] Comment on above: Performed By: #### L 100.0100, L500.2500 ####[facility] [address] [place], [address] Hemoglobin (Bld) [Mass/Vol] 9.2 g/dL Low 12.0-15.0 [facility] Comment on above: Performed By: #### L 100.0100, L500.2500 ####[facility] [address] [place], [address] IG% 0.900 Normal 0.0-0.9 [facility] Comment on above: Result Comment: IG% - Immature Granulocytes (promyelocytes, myelocytes andmetamyelocytes) > 1% indicates that a LEFT SHIFT is Present. Performed By: #### L 100.0100, L500.2500 ####[facility] [address] [place], [address] Lymphocytes/100 WBC (Bld) 7.4 % Low 19-41 [facility] Comment on above: Performed By: #### L 100.0100, L500.2500 ####[facility] [address] [place], [address] MCH (RBC) [Entitic mass] 31.9 pg Normal 27.0-32.0 [facility] Comment on above: Performed By: #### L 100.0100, L500.2500 ####[facility] [address] [place], [address] MCHC (RBC) [Mass/Vol] 31.4 g/dL Low 32-36 [facility] Comment on above: Performed By: #### L 100.0100, L500.2500 ####[facility] [address] [place], [address] MCV (RBC) [Entitic vol] 101.7 fL High 81-[address] [facility] Comment on above: Performed By: #### L 100.0100, L500.2500 ####[facility] [address] [place], [address] Monocytes/100 WBC (Bld) 4.8 % Normal 0-[address] [facility] Comment on above: Performed By: #### L 100.0100, L500.2500 ####[facility] [address] [place], [address] Neutrophils/100 WBC (Bld) 86.9 % High 47-70 [facility] Comment on above: Performed By: #### L 100.0100, L500.2500 ####[facility] [address] [place], [address] Nucleated RBC (Bld) [#/Vol] 0 10*3/uL Normal 0-5 [facility] Comment on above: Performed By: #### L 100.0100, L500.2500 ####[facility] [address] [place], [address] Platelet mean volume (Bld) [Entitic vol] 10.8 fL Normal 6.2-12.0 [facility] Comment on above: Performed By: #### L 100.0100, L500.2500 ####[facility] [address] [place], [address] Platelets (Bld) [#/Vol] 162 10*3/uL Normal 150-450 [facility] Comment on above: Performed By: #### L 100.0100, L500.2500 ####[facility] [address] [place], [address] RBC (Bld) [#/Vol] 2.88 10*6/uL Low 4.2-5.4 [facility] Comment on above: Performed By: #### L 100.0100, L500.2500 ####[facility] [address] [place], [address] RDW SD 51.2 fl High 35.1-43.9 [facility] Comment on above: Performed By: #### L 100.0100, L500.2500 ####[facility] [address] [place], [address] WBC (Bld) [#/Vol] 4.6 10*3/uL Normal 4.4-11.0 [facility] Comment on above: Performed By: #### L 100.0100, L500.2500 ####[facility] [address] [place], [address] Urine Cultureon 11-02-2024 URC Mixed Gram Positive Organisms [place] Count 50,000-80,000 MIXC Mixed contaminants. Submit a new specimen if indicated. Normal [facility] Comment on above: Performed By: #### M 100.2200, L400.0001, M100.678 ####[facility] [address] [place], [address] Assessment of wrist artery p atency prior to arterial punctureOrdered By: Zhane Stone on 11-01-2024 Arterial patency Wrist artery --pre arterial puncture Positive [facility] Bilirubin, totalOrdered By: Zhane Stone on 11-01-2024 Bilirubin [Mass/Vol] 0.16 mg/dL 0.00-1.30 [facility] Blood Gases by CPSon 025 RHIANNON TEST Positive Normal [facility] Comment on above: Performed By: #### L 9000.0800 ####[facility] [address] [place], [address] Base excess Calc (Bld) [Moles/Vol] 5 mmol/L High -2 to +2 [facility] Comment on above: Performed By: #### L 9000.0800 ####[facility] [address] [place], [address] Blood Gas Type ART Normal [facility] Comment on above: Performed By: #### L 9000.0800 ####[facility] [address] [place], [address] CO2 [Moles/Vol] 34 mmol/L Normal [facility] Comment on above: Performed By: #### L 9000.0800 ####[facility] [address] [place], [address] FI02 35.0 Normal [facility] Comment on above: Performed By: #### L 9000.0800 ####[facility] [address] [place], [address] HCO3 (Bld) [Moles/Vol] 31.4 mmol/L High 22-[address] [facility] Comment on above: Performed By: #### L 9000.0800 ####[facility] [address] [place], [address] Mode AVAPS Normal [facility] Comment on above: Performed By: #### L 9000.0800 ####[facility] [address] [place], [address] O2 Delivery Dev BiPAP Normal [facility] Comment on above: Performed By: #### L 9000.0800 ####[facility] [address] [place], [address] pCO2 68.3 mmHg Invalid Interpretation Code 35-45 [facility] Comment on above: Performed By: #### L 9000.0800 ####[facility] [address] [place], [address] PEEP 10 Normal [facility] Comment on above: Performed By: #### L 9000.0800 ####[facility] [address] [place], [address] pH (Bld) 7.27 [pH] Low 7.35-7.45 [facility] Comment on above: Performed By: #### L 9000.0800 ####[facility] [address] [place], [address] PIP 28 Normal [facility] Comment on above: Performed By: #### L 9000.0800 ####[facility] [address] [place], [address] PO2 79 mmHG Normal 75-100 [facility] Comment on above: Performed By: #### L 9000.0800 ####[facility] [address] [place], [address] Read Back By Yes [facility] Comment on above: Performed By: #### L 9000.0800 ####[facility] [address] [place], [address] RIVERA [facility] Comment on above: Performed By: #### L 9000.0800 ####[facility] [address] [place], [address] [address] 16 Normal [facility] Comment on above: Performed By: #### L 9000.0800 ####[facility] [address] [place], [address] SITE R Radial Normal [facility] Comment on above: Performed By: #### L 9000.0800 ####[facility] [address] [place], [address] SO2 93 Low 95-99 [facility] Comment on above: Performed By: #### L 9000.0800 ####[facility] [address] [place], [address] Time Given 05:36:18 [facility] Comment on above: Performed By: #### L 9000.0800 ####[facility] [address] [place], [address] Vt 500.0 mL [facility] Comment on above: Performed By: #### L 9000.0800 ####[facility] [address] [place], [address] RHIANNON TEST Positive Normal [facility] Comment on above: Performed By: #### L 9000.0800 ####[facility] [address] [place], [address] Base excess Calc (Bld) [Moles/Vol] 2 mmol/L Normal -2 to +2 [facility] [facility] Comment on above: Performed By: #### L 9000.0800 ####[facility] [address] [place], [address] Blood Gas Type ART Normal [facility] Comment on above: Performed By: #### L 9000.0800 ####[facility] [address] [place], [address] CO2 [Moles/Vol] 31 mmol/L Normal [facility] Comment on above: Performed By: #### L 9000.0800 ####[facility] [address] [place], [address] FI02 35.0 Normal [facility] Comment on above: Performed By: #### L 9000.0800 ####[facility] [address] [place], [address] HCO3 (Bld) [Moles/Vol] 29.4 mmol/L High 22-[address] [facility] Comment on above: Performed By: #### L 9000.0800 ####[facility] [address] [place], [address] Mode AVAPS Normal [facility] Comment on above: Performed By: #### L 9000.0800 ####[facility] [address] [place], [address] O2 Delivery Dev BiPAP Normal [facility] Comment on above: Performed By: #### L 9000.0800 ####[facility] [address] [place], [address] pCO2 66.6 mmHg High 35-45 [facility] Comment on above: Performed By: #### L 9000.0800 ####[facility] [address] [place], [address] PEEP 10 Normal [facility] Comment on above: Performed By: #### L 9000.0800 ####[facility] [address] [place], [address] pH (Bld) 7.25 [pH] Low 7.35-7.45 [facility] Comment on above: Performed By: #### L 9000.0800 ####[facility] [address] [place], [address] PIP 23 Normal [facility] Comment on above: Performed By: #### L 9000.0800 ####[facility] [address] [place], [address] PO2 71 mmHG Low 75-100 [facility] Comment on above: Performed By: #### L 9000.0800 ####[facility] [address] [place], [address] RR 16 Normal [facility] Comment on above: Performed By: #### L 9000.0800 ####[facility] [address] [place], [address] SITE L Radial Normal [facility] Comment on above: Performed By: #### L 9000.0800 ####[facility] [address] [place], [address] SO2 91 Low 95-99 [facility] Comment on above: Performed By: #### L 9000.0800 ####[facility] [address] [place], [address] Vt 500.0 mL Normal [facility] Comment on above: Performed By: #### L 9000.0800 ####[facility] [address] [place], [address] Blood base excess determinat ionOrdered By: Zhane Stone on 11-01-2024 Base excess Calc (BldV) [Moles/Vol] 5 mmol/L High -2-2 [facility] Blood bicarbonate measuremen tOrdered By: Zhane Stone on 11-01-2024 HCO3 (Bld) [Moles/Vol] 31.4 mmol/L High 22-[address] [facility] CBC W/Diff, Automatedon 06-0 Absolute Lymph 0.33 X10 3/uL Low 0.83-4.51 [facility] Comment on above: Performed By: #### L 500.4050, L100.0100, L501.2300, L501.5200 ####[facility] [address] [place], [address] Absolute Neut 4.0 X10 3/uL Normal 2.0-7.7 [facility] Comment on above: Performed By: #### L 500.4050, L100.0100, L501.2300, L501.5200 ####[facility] [address] [place], [address] Basophils/100 WBC (Bld) 0.2 % Normal 0-[address] [facility] Comment on above: Performed By: #### L 500.4050, L100.0100, L501.2300, L501.5200 ####[facility] [address] [place], [address] Eosinophils/100 WBC (Bld) 0.0 % Normal 0-5 [facility] Comment on above: Performed By: #### L 500.4050, L100.0100, L501.2300, L501.5200 ####[facility] [address] [place], [address] Erythrocyte distribution width (RBC) [Ratio] 14.1 % Normal 11.6-14.6 [facility] Comment on above: Performed By: #### L 500.4050, L100.0100, L501.2300, L501.5200 ####[facility] [address] [place], [address] Hematocrit (Bld) [Volume fraction] 28.8 % Low 37-47 [facility] Comment on above: Performed By: #### L 500.4050, L100.0100, L501.2300, L501.5200 ####[facility] [address] [place], [address] Hemoglobin (Bld) [Mass/Vol] 8.9 g/dL Low 12.0-15.0 [facility] Comment on above: Performed By: #### L 500.4050, L100.0100, L501.2300, L501.5200 ####[facility] [address] [place], [address] IG% 0.700 Normal 0.0-0.9 [facility] Comment on above: Result Comment: IG% - Immature Granulocytes (promyelocytes, myelocytes andmetamyelocytes) > 1% indicates that a LEFT SHIFT is Present. Performed By: #### L 500.4050, L100.0100, L501.2300, L501.5200 ####[facility] [address] [place], [address] Lymphocytes/100 WBC (Bld) 7.3 % Low 19-41 [facility] Comment on above: Performed By: #### L 500.4050, L100.0100, L501.2300, L501.5200 ####[facility] [address] [place], [address] MCH (RBC) [Entitic mass] 31.7 pg Normal 27.0-32.0 [facility] Comment on above: Performed By: #### L 500.4050, L100.0100, L501.2300, L501.5200 ####[facility] [address] [place], [address] MCHC (RBC) [Mass/Vol] 30.9 g/dL Low 32-36 [facility] Comment on above: Performed By: #### L 500.4050, L100.0100, L501.2300, L501.5200 ####[facility] [address] [place], [address] MCV (RBC) [Entitic vol] 102.5 fL High 81-[address] [facility] Comment on above: Performed By: #### L 500.4050, L100.0100, L501.2300, L501.5200 ####[facility] [address] [place], [address] Monocytes/100 WBC (Bld) 2.9 % Normal 0-10 [facility] Comment on above: Performed By: #### L 500.4050, L100.0100, L501.2300, L501.5200 ####[facility] [address] [place], [address] Neutrophils/100 WBC (Bld) 88.9 % High 47-70 [facility] Comment on above: Performed By: #### L 500.4050, L100.0100, L501.2300, L501.5200 ####[facility] [address] [place], [address] Nucleated RBC (Bld) [#/Vol] 0 10*3/uL Normal 0-5 [facility] Comment on above: Performed By: #### L 500.4050, L100.0100, L501.2300, L501.5200 ####[facility] [address] [place], [address] Platelet mean volume (Bld) [Entitic vol] 10.5 fL Normal 6.2-12.0 [facility] Comment on above: Performed By: #### L 500.4050, L100.0100, L501.2300, L501.5200 ####[facility] [address] [place], [address] Platelets (Bld) [#/Vol] 142 10*3/uL Low 150-450 [facility] Comment on above: Performed By: #### L 500.4050, L100.0100, L501.2300, L501.5200 ####[facility] [address] [place], [address] RBC (Bld) [#/Vol] 2.81 10*6/uL Low 4.2-5.4 [facility] Comment on above: Performed By: #### L 500.4050, L100.0100, L501.2300, L501.5200 ####[facility] [address] [place], [address] RDW SD 52.5 fl High 35.1-43.9 [facility] Comment on above: Performed By: #### L 500.4050, L100.0100, L501.2300, L501.5200 ####[facility] [address] [place], [address] WBC (Bld) [#/Vol] 4.5 10*3/uL Normal 4.4-11.0 [facility] Comment on above: Performed By: #### L 500.4050, L100.0100, L501.2300, L501.5200 ####[facility] [address] [place], [address] Comprehensive Metabolic Prof [facility] 11-01-2024 Albumin [Mass/Vol] 3.2 g/dL Low 3.4-4.8 [facility] Comment on above: Performed By: #### L 500.4050, L100.0100, L501.2300, L501.5200 ####[facility] [address] [place], [address] Albumin/Globulin [Mass ratio] 1.1 {ratio} Normal 0.9-2.4 [facility] Comment on above: Performed By: #### L 500.4050, L100.0100, L501.2300, L501.5200 ####[facility] [address] [place], [address] ALK PHOS 58 U/L Normal 35-104 [facility] Comment on above: Performed By: #### L 500.4050, L100.0100, L501.2300, L501.5200 ####[facility] [address] [place], [address] ALT [Catalytic activity/Vol] 6 U/L Normal <=34 [facility] Comment on above: Performed By: #### L 500.4050, L100.0100, L501.2300, L501.5200 ####[facility] [address] [place], [address] AST [Catalytic activity/Vol] 13 U/L Normal <=31 [facility] Comment on above: Performed By: #### L 500.4050, L100.0100, L501.2300, L501.5200 ####[facility] [address] [place], [address] Bilirubin [Mass/Vol] 0.16 mg/dL Normal 0.00-1.30 [facility] Comment on above: Performed By: #### L 500.4050, L100.0100, L501.2300, L501.5200 ####[facility] [address] [place], [address] BUN/CRE 18.0 RATIO Normal 10-20 [facility] Comment on above: Performed By: #### L 500.4050, L100.0100, L501.2300, L501.5200 ####[facility] [address] [place], [address] Calcium [Mass/Vol] 8.6 mg/dL Normal 7.6-11.0 [facility] Comment on above: Performed By: #### L 500.4050, L100.0100, L501.2300, L501.5200 ####[facility] [address] [place], [address] Chloride [Moles/Vol] 104 mmol/L Normal 98-108 [facility] Comment on above: Performed By: #### L 500.4050, L100.0100, L501.2300, L501.5200 ####[facility] [address] [place], [address] CO2 [Moles/Vol] 25.3 mmol/L Normal 21.0-32.0 [facility] Comment on above: Performed By: #### L 500.4050, L100.0100, L501.2300, L501.5200 ####[facility] [address] [place], [address] Creatinine [Mass/Vol] 1.61 mg/dL High 0.70-1.20 [facility] Comment on above: Performed By: #### L 500.4050, L100.0100, L501.2300, L501.5200 ####[facility] [address] [place], [address] ECRCL 40.47 ml/min Low 50-250 [facility] Comment on above: Performed By: #### L 500.4050, L100.0100, L501.2300, L501.5200 ####[facility] [address] [place], [address] GAP 9 Normal 5-15 [facility] Comment on above: Performed By: #### L 500.4050, L100.0100, L501.2300, L501.5200 ####[facility] [address] [place], [address] GFR/1.73 sq M.predicted among non-blacks MDRD (S/P/Bld) [Vol rate/Area] 34 mL/min/{1.73_m2} Low >60 [facility] Comment on above: Result Comment: mL/m in/1.73m2 CKD-EPI Creatinine Equation (2020) Performed By: #### L 500.4050, L100.0100, L501.2300, L501.5200 ####[facility] [address] [place], [address] Globulin (S) [Mass/Vol] 2.9 g/dL Normal 2.2-4.2 [facility] Comment on above: Performed By: #### L 500.4050, L100.0100, L501.2300, L501.5200 ####[facility] [address] [place], [address] Glucose [Mass/Vol] 121 mg/dL High 70-99 [facility] Comment on above: Performed By: #### L 500.4050, L100.0100, L501.2300, L501.5200 ####[facility] [address] [place], [address] Potassium [Moles/Vol] 5.0 mmol/L Normal 3.3-5.1 [facility] Comment on above: Performed By: #### L 500.4050, L100.0100, L501.2300, L501.5200 ####[facility] [address] [place], [address] Sodium [Moles/Vol] 138 mmol/L Normal 133-145 [facility] Comment on above: Performed By: #### L 500.4050, L100.0100, L501.2300, L501.5200 ####[facility] [address] [place], [address] T PROT 6.1 g/dL Normal 5.9-8.4 [facility] Comment on above: Performed By: #### L 500.4050, L100.0100, L501.2300, L501.5200 ####[facility] [address] [place], [address] Urea nitrogen [Mass/Vol] 29 mg/dL High 4-19 [facility] Comment on above: Performed By: #### L 500.4050, L100.0100, L501.2300, L501.5200 ####[facility] [address] [place], [address] Echocardiogram study reportO rdered By: Michelle Gonzales on 11-01-2024 Study report [facility] [address] [place] [address] Echo Complete W/ Contrast 11/01/24 0855 MR#: [id number] Acct: [id number] Name: DESIRE CHAUDHRY Rep #:[id number] : 1950 73 From: Michelle Gonzales MD Attending Dr: Dr. Laura Sol MD Status: ADM IN Ordering Dr: Zhane Stone DO Date: 08/22 Location: U Sex: F C Admitted: 10/31/24 Reason For Study Reason For Study: CHF Procedure This was a 2D Doppler, Color Flow transthoracic echocardiogram. The study was technically difficult. Contrast injection was performed. Exam performed portable in patient room. Left Ventricle Mild concentric left ventricular hypertrophy. Normal LV size. The LV systolic function is normal. EF is 65 %. Stage 1 diastolic dysfunction. Right Ventricle Normal right ventricle. Atria The left atrium is severely enlarged. Normal right atrium. Prominent eustachian valve. Mitral Valve Trivial mitral valve insufficiency. Tricuspid Valve Trivial tricuspid valve insufficiency. Right ventricular systolic pressure estimated to be 47 mmHg. Aortic Valve Trisinus/trileaflet aortic valve. Aortic sclerosis, no stenosis. Pulmonic Valve The pulmonic valve is not well visualized. Great Vessels Mildly dilated aortic root. Pericardium/Pleural No pericardial effusion. Medication Diluted definity 2.5ml given slow IV push to enhance endocardial definition. MMode/2D Measurements & Calculations LVIDd: 5.4 cm IVSd: 1.2 cm Ao root diam: 4.1 cm LVIDs: 4.0 cm LVPWd: 1.3 cm LA dimension: 5.1 cm RVDd: 3.8 cm FS: 26.7 % LAV(MOD-bp): 70.2 ml LVAd ap4: 44.4 cm2 SV(MOD-sp4): 105.8 ml LAV(MOD-bp) Indexed: 31.5 ml/m2 LVLd ap4: 8.9 cm SI(MOD-sp4): 47.5 ml/m2 LAV(MOD-sp2): 71.8 ml EDV(MOD-sp4): 182.2 ml LAV(MOD-sp4): 68.9 ml EDV(sp4-el): 187.6 ml LVAs ap4: 25.0 cm2 LVLs ap4: 6.6 cm ESV(MOD-sp4): 76.4 ml ESV(sp4-el): 80.2 ml EF(MOD-sp4): 58.1 % EF(sp4-el): 57.2 % SV(sp4-el): 107.3 ml LA A4 area: 23.2 cm2 LA dimension(2D): 4.8 cm RA A4 area: 22.0 cm2 Time Measurements MV dec time: 0.12 sec Doppler Measurements & Calculations MV E max yogesh: 101.8 cm/sec Lat Peak E' Yogesh: 9.5 cm/sec Med Peak E' Yogesh: 7.7 cm/sec MV A max yogesh: 126.7 cm/sec E/E' lat: 10.8 E/E' med: 13.1 MV E/A: 0.80 MV V2 max: 151.2 cm/sec MV P1/2t max yogesh: 122.5 cm/sec Ao V2 max: 172.2 cm/sec MV max P.1 mmHg MV P1/2t: 55.5 msec Ao max P.9 mmHg MV V2 mean: 83.9 cm/sec MV dec slope: 646.8 cm/sec2 MV mean P.3 mmHg MVA(P1/2t): 4.0 cm2 MV V2 VTI: 40.7 cm LV V1 max: 149.3 cm/sec TR max yogesh: 282.9 cm/sec LV V1 max P.9 mmHg TR max P.0 mmHg ECHO/Echo Complete W/ Contrast Interpretation Summary The study was technically difficult. Mild concentric left ventricular hypertrophy. The LV systolic function is normal. EF is 65 %. Stage 1 diastolic dysfunction. The left atrium is severely enlarged. Right ventricular systolic pressure estimated to be 47 mmHg. Aortic sclerosis, no stenosis. Mildly dilated aortic root. Ordering Physician: Zhane Stone Performed By: Eladio Ho RCS 11/01/24 1204 Date _ Michelle Gonzales MD CC: Dr. Zhane Stone DO; Dr. Zee Jose DO; Dr. Laura Sol MD ~ Date Dictated: 11/01/24 0855 Date Transcribed: 11/01/24 1204 Mobile Developer: Signed [facility] Work Phone: Laboratory - Chemistry and C hemistry - challengeOrdered By: Zhane Stone on 11-01-2024 AST [Catalytic activity/Vol] 13 U/L <32 [facility] Magnesiumon 11-01-2024 Magnesium [Mass/Vol] 2.0 mg/dL Normal 1.5-2.2 [facility] Comment on above: Performed By: #### L 500.4050, L100.0100, L501.2300, L501.5200 ####[facility] [address] [place], [place], [address] Magnesium measurement (mass/ volume)Ordered By: Zhane Stone on 11-01-2024 Magnesium (Unsp spec) [Mass/Vol] 2.0 mg/dL 1.5-2.2 [facility] Measurement, pHOrdered By: Ronan Stone on 11-01-2024 pH (Unsp spec) 7.27 [pH] Low 7.35-7.45 [facility] No Panel InformationOrdered By: Zhane Stone on 11-01-2024 Bedside Blood Gas PEEP 10 [facility] Bld Gas Crit Called To/Read Back By Yes [facility] Bld Gas Peak Inspiratory Pressure 28 [facility] Blood Gas Notified Time 05:36:18 [facility] Blood Gas Notified Whom DR RIVERA [facility] Blood Gas Respiration Rate 16 [facility] Blood Gas Sample Site R Radial [facility] Blood Gas Specimen Type ART [facility] Blood Gas Tidal Volume 500.0 mL [facility] Blood Gas Vent Mode AVAPS [facility] Oxygen Delivery Device BiPAP [facility] Phosphoruson 11-01-2024 Phosphate [Mass/Vol] 3.7 mg/dL Normal 2.7-4.5 [facility] Comment on above: Performed By: #### L 500.4050, L100.0100, L501.2300, L501.5200 ####[facility] [address] [place], [place], [id number] RESPIRATORY PANEL MOLECULARo n 11-01-2024 RP PANEL Normal [facility] Comment on above: Performed By: #### M 100.638 ####[facility] [address] [place], [place], [address] Serum globulin measurementOr dered By: Zhane Stone on 11-01-2024 Globulin (S) [Mass/Vol] 2.9 g/dL 2.2-4.2 [facility] Serum or plasma alanine centeno otransferase (ALT) measurementOrdered By: Zhane Stone on 11-01-2024 ALT [Catalytic activity/Vol] 6 U/L <35 [facility] Serum or plasma albumin reese urement (mass/volume)Ordered By: Zhane Stone on 11-01-2024 Albumin [Mass/Vol] 3.2 g/dL Low 3.4-4.8 [facility] Serum or plasma albumin/glob ulin mass ratioOrdered By: Zhane Stone on 11-01-2024 Albumin/Globulin [Mass ratio] 1.1 {ratio} 0.9-2.4 [facility] Serum or plasma alkaline sohail sphatase measurementOrdered By: Zhane Stone on 11-01-2024 ALP [Catalytic activity/Vol] 58 U/L 35-104 [facility] Total carbon dioxide measure mentOrdered By: Zhane Stone on 11-01-2024 CO2 [Moles/Vol] 34 mmol/L [facility] Total proteinOrdered By: Darlene Stone on 11-01-2024 Protein [Mass/Vol] 6.1 g/dL 5.9-8.4 [facility] 12 Lead EKGon 10-31-2024 12 Lead EKG Normal [facility] Absolute lymphocyte countOrd ered By: Janak Hernandez on 10-31-2024 Lymphocytes Auto (Unsp spec) [#/Vol] 0.49 10*3/uL Low 0.83-4.51 [facility] Absolute neutrophil countOrd ered By: Janak Hernandez on 10-31-2024 Neutrophils (Bld) [#/Vol] 3.8 10*3/uL 2.0-7.7 [facility] Activated partial thrombopla stin time (aPTT) in platelet poor plasma by coagulation aOrdered By: Janak Hernandez on 10-31-2024 aPTT Coag (PPP) [Time] 32.4 s 24.1-36.2 [facility] Amorphous sediment detection in urine sediment by light microscopyOrdered By: Janak Hernandez on 10-31-2024 Amorphous sediment LM Ql (Urine sed) 3+ [facility] Anion gap in Serum or Plasma Ordered By: Janak Hernandez on 10-31-2024 Anion gap [Moles/Vol] 9 mmol/L 5-15 [facility] Assessment of wrist artery p atency prior to arterial punctureOrdered By: Janak Hernandez on 10-31-2024 Arterial patency Wrist artery --pre arterial puncture Positive [facility] Automated lymphocyte count a s percentage of total leukocytesOrdered By: Janak Hernandez on 10-31-2024 Lymphocytes/100 WBC Auto (Unsp spec) 10.1 % Low 19-41 [facility] BUN/creatinine ratioOrdered By: Janak Hernandez on 10-31-2024 Urea nitrogen/Creatinine [Mass ratio] 15.8 mg/mg 10-20 [facility] Basophil percentageOrdered B y: Janak Hernandez on 10-31-2024 Basophils/100 WBC (Bld) 0.2 % 0-[address] [facility] Bilirubin Test strip Ql (U)O rdered By: Janak Hernandez on 10-31-2024 Bilirubin Ql (U) Negative Negative [facility] Bilirubin, totalOrdered By: Janak Henrandez on 10-31-2024 Bilirubin [Mass/Vol] 0.17 mg/dL 0.00-1.30 [facility] Blood Gases by CPSon 025 RHIANNON TEST Positive Normal [facility] Comment on above: Performed By: #### L 9000.0800 ####[facility] [address] [place], [address] Base excess Calc (Bld) [Moles/Vol] 7 mmol/L High -2 to +2 [facility] Comment on above: Performed By: #### L 9000.0800 ####[facility] [address] [place], [address] Blood Gas Type ART Normal [facility] Comment on above: Performed By: #### L 9000.0800 ####[facility] [address] [place], [address] CO2 [Moles/Vol] 37 mmol/L Normal [facility] Comment on above: Performed By: #### L 9000.0800 ####[facility] [address] [place], [address] FI02 5.0 Normal [facility] Comment on above: Performed By: #### L 9000.08 ####[facility] [address] [place], [address] HCO3 (Bld) [Moles/Vol] 34.2 mmol/L High 22-[address] [facility] Comment on above: Performed By: #### L 9000.0800 ####[facility] [address] [place], [address] Mode Not entered Normal [facility] Comment on above: Performed By: #### L 9000.0800 ####[facility] [address] [place], [address] O2 Delivery Dev Cannula Normal [facility] Comment on above: Performed By: #### L 9000.0800 ####[facility] [address] [place], [address] pCO2 77.3 mmHg Invalid Interpretation Code 35-45 [facility] Comment on above: Performed By: #### L 9000.0800 ####[facility] [address] [place], [address] pH (Bld) 7.25 [pH] Low 7.35-7.45 [facility] Comment on above: Performed By: #### L 9000.0800 ####[facility] [address] [place], [address] PO2 53 mmHG Low 75-100 [facility] Comment on above: Performed By: #### L 9000.0800 ####[facility] [address] [place], [address] Read Back By Yes [facility] Comment on above: Performed By: #### L 9000.0800 ####[facility] [address] [place], [address] Results To Chase [facility] Comment on above: Performed By: #### L 9000.0800 ####[facility] [address] [place], [address] SITE L Radial Normal [facility] Comment on above: Performed By: #### L 8999.799 ####[facility] [address] [place], [address] SO2 79 Low 95-99 [facility] Comment on above: Performed By: #### L 8999.08 ####[facility] [address] [place], [address] Time Given 21:33:07 Normal [facility] Comment on above: Performed By: #### L 8999.08 ####[facility] [address] [place], [address] RHIANNON TEST Positive Normal [facility] Comment on above: Performed By: #### L 8999.08 ####[facility] [address] [place], [address] Base excess Calc (Bld) [Moles/Vol] 0 mmol/L Normal -2 to +2 [facility] Comment on above: Performed By: #### L 8999.08 ####[facility] [address] [place], [address] Blood Gas Type ART Normal [facility] Comment on above: Performed By: #### L 8999.08 ####[facility] [address] [place], [address] CO2 [Moles/Vol] 31 mmol/L Normal [facility] Comment on above: Performed By: #### L 8999.08 ####[facility] [address] [place], [address] FI02 25.0 Normal [facility] Comment on above: Performed By: #### L 8999.0800 ####[facility] [address] [place], [address] HCO3 (Bld) [Moles/Vol] 28.6 mmol/L High 22-[address] [facility] Comment on above: Performed By: #### L 9000.0800 ####[facility] [address] [place], [address] Mode Not entered Normal [facility] Comment on above: Performed By: #### L 9000.0800 ####[facility] [address] [place], [address] O2 Delivery Dev BiPAP Normal [facility] Comment on above: Performed By: #### L 9000.0800 ####[facility] [address] [place], [address] pCO2 76.9 mmHg Invalid Interpretation Code 35-45 [facility] Comment on above: Performed By: #### L 9000.0800 ####[facility] [address] [place], [address] pH (Bld) 7.18 [pH] Invalid Interpretation Code 7.35-7.45 [facility] Comment on above: Performed By: #### L 9000.0800 ####[facility] [address] [place], [address] PO2 59 mmHG Low 75-100 [facility] Comment on above: Performed By: #### L 9000.0800 ####[facility] [address] [place], [address] Read Back By Yes Normal [facility] Comment on above: Performed By: #### L 9000.0800 ####[facility] [address] [place], [address] Results To hernandez Normal [facility] Comment on above: Performed By: #### L 9000.0800 ####[facility] [address] [place], [address] SITE L Radial Normal [facility] Comment on above: Performed By: #### L 9000.0800 ####[facility] [address] [place], [address] SO2 82 Low 95-99 [facility] Comment on above: Performed By: #### L 9000.0800 ####[facility] [address] [place], [address] Time Given 17:27:12 [facility] Comment on above: Performed By: #### L 9000.0800 ####[facility] [address] [place], [address] RHIANNON TEST Positive Normal [facility] Comment on above: Performed By: #### L 9000.0800 ####[facility] [address] [place], [address] Base excess Calc (Bld) [Moles/Vol] 4 mmol/L High -2 to +2 [facility] Comment on above: Performed By: #### L 9000.0800 ####[facility] [address] [place], [address] Blood Gas Type ART Normal [facility] Comment on above: Performed By: #### L 9000.0800 ####[facility] [address] [place], [address] CO2 [Moles/Vol] 35 mmol/L Normal [facility] Comment on above: Performed By: #### L 9000.0800 ####[facility] [address] [place], [address] FI02 2.0 Normal [facility] Comment on above: Performed By: #### L 9000.0800 ####[facility] [address] [place], [address] HCO3 (Bld) [Moles/Vol] 32.5 mmol/L High 22-[address] [facility] Comment on above: Performed By: #### L 9000.0800 ####[facility] [address] [place], [address] Mode Not entered [facility] Comment on above: Performed By: #### L 9000.0800 ####[facility] [address] [place], [address] O2 Delivery Dev Cannula Normal [facility] Comment on above: Performed By: #### L 9000.0800 ####[facility] [address] [place], [address] pCO2 88.1 mmHg Invalid Interpretation Code 35-45 [facility] Comment on above: Performed By: #### L 9000.0800 ####[facility] [address] [place], [address] pH (Bld) 7.18 [pH] Invalid Interpretation Code 7.35-7.45 [facility] Comment on above: Performed By: #### L 9000.0800 ####[facility] [address] [place], [address] PO2 76 mmHG Normal 75-100 [facility] Comment on above: Performed By: #### L 9000.0800 ####[facility] [address] [place], [address] Read Back By Yes [facility] Comment on above: Performed By: #### L 9000.0800 ####[facility] [address] [place], [address] SITE L Brach [facility] Comment on above: Performed By: #### L 9000.0800 ####[facility] [address] [place], [address] SO2 90 Low 95-99 [facility] Comment on above: Performed By: #### L 9000.0800 ####[facility] [address] [place], [address] Time Given 14:04:53 Normal [facility] Comment on above: Performed By: #### L 9000.0800 ####[facility] [address] [place], [address] Blood base excess determinat ionOrdered By: Janak Hernandez on 10-31-2024 Base excess Calc (BldV) [Moles/Vol] 0 mmol/L -2-2 [facility] Blood bicarbonate measuremen tOrdered By: Janak Hernandez on 10-31-2024 HCO3 (Bld) [Moles/Vol] 28.6 mmol/L High 22-[address] [facility] Blood cultureOrdered By: Boris Hernandez on 10-31-2024 Bacteria identified Cx Nom (Bld) No growth in 5 days. [facility] Bacteria identified Cx Nom (Bld) No growth in 5 days. [facility] CBC W/Diff, Automatedon 06-0 -2024 Absolute Lymph 0.49 X10 3/uL Low 0.83-4.51 [facility] Comment on above: Performed By: #### L 300.3900, M200.1000, L500.4050, L300.4310, L503.6005, L501.4021, L100.0100 ####[facility] [address] [place], [address] Absolute Neut 3.8 X10 3/uL Normal 2.0-7.7 [facility] Comment on above: Performed By: #### L 300.3900, M200.1000, L500.4050, L300.4310, L503.6005, L501.4021, L100.0100 ####[facility] [address] [place], [address] Basophils/100 WBC (Bld) 0.2 % Normal 0-[address] [facility] Comment on above: Performed By: #### L 300.3900, M200.1000, L500.4050, L300.4310, L503.6005, L501.4021, L100.0100 ####[facility] [address] [place], [address] Eosinophils/100 WBC (Bld) 0.2 % Normal 0-5 [facility] Comment on above: Performed By: #### L 300.3900, M200.1000, L500.4050, L300.4310, L503.6005, L501.4021, L100.0100 ####[facility] [address] [place], [address] Erythrocyte distribution width (RBC) [Ratio] 14.4 % Normal 11.6-14.6 [facility] Comment on above: Performed By: #### L 300.3900, M200.1000, L500.4050, L300.4310, L503.6005, L501.4021, L100.0100 ####[facility] [address] [place], [address] Hematocrit (Bld) [Volume fraction] 33.1 % Low 37-47 [facility] Comment on above: Performed By: #### L 300.3900, M200.1000, L500.4050, L300.4310, L503.6005, L501.4021, L100.0100 ####[facility] [address] [place], [address] Hemoglobin (Bld) [Mass/Vol] 10.0 g/dL Low 12.0-15.0 [facility] Comment on above: Performed By: #### L 300.3900, M200.1000, L500.4050, L300.4310, L503.6005, L501.4021, L100.0100 ####[facility] [address] [place], [address] IG% 1.400 High 0.0-0.9 [facility] Comment on above: Result Comment: IG% - Immature Granulocytes (promyelocytes, myelocytes andmetamyelocytes) > 1% indicates that a LEFT SHIFT is Present. Performed By: #### L 300.3900, M200.1000, L500.4050, L300.4310, L503.6005, L501.4021, L100.0100 ####[facility] [address] [place], [address] Lymphocytes/100 WBC (Bld) 10.1 % Low 19-41 [facility] Comment on above: Performed By: #### L 300.3900, M200.1000, L500.4050, L300.4310, L503.6005, L501.4021, L100.0100 ####[facility] [address] [place], [address] MCH (RBC) [Entitic mass] 31.7 pg Normal 27.0-32.0 [facility] Comment on above: Performed By: #### L 300.3900, M200.1000, L500.4050, L300.4310, L503.6005, L501.4021, L100.0100 ####[facility] [address] [place], [address] MCHC (RBC) [Mass/Vol] 30.2 g/dL Low 32-36 [facility] Comment on above: Performed By: #### L 300.3900, M200.1000, L500.4050, L300.4310, L503.6005, L501.4021, L100.0100 ####[facility] [address] [place], [address] MCV (RBC) [Entitic vol] 105.1 fL High 81-[address] [facility] Comment on above: Performed By: #### L 300.3900, M200.1000, L500.4050, L300.4310, L503.6005, L501.4021, L100.0100 ####[facility] [address] [place], [address] Monocytes/100 WBC (Bld) 9.9 % Normal 0-[address] [facility] Comment on above: Performed By: #### L 300.3900, M200.1000, L500.4050, L300.4310, L503.6005, L501.4021, L100.0100 ####[facility] [address] [place], [address] Neutrophils/100 WBC (Bld) 78.2 % High 47-70 [facility] Comment on above: Performed By: #### L 300.3900, M200.1000, L500.4050, L300.4310, L503.6005, L501.4021, L100.0100 ####[facility] [address] [place], [address] Nucleated RBC (Bld) [#/Vol] 0 10*3/uL Normal 0-5 [facility] Comment on above: Performed By: #### L 300.3900, M200.1000, L500.4050, L300.4310, L503.6005, L501.4021, L100.0100 ####[facility] [address] [place], [address] Platelet mean volume (Bld) [Entitic vol] 10.5 fL Normal 6.2-12.0 [facility] Comment on above: Performed By: #### L 300.3900, M200.1000, L500.4050, L300.4310, L503.6005, L501.4021, L100.0100 ####[facility] [address] [place], [address] Platelets (Bld) [#/Vol] 156 10*3/uL Normal 150-450 [facility] Comment on above: Performed By: #### L 300.3900, M200.1000, L500.4050, L300.4310, L503.6005, L501.4021, L100.0100 ####[facility] [address] [place], [address] RBC (Bld) [#/Vol] 3.15 10*6/uL Low 4.2-5.4 [facility] Comment on above: Performed By: #### L 300.3900, M200.1000, L500.4050, L300.4310, L503.6005, L501.4021, L100.0100 ####[facility] [address] [place], [address] RDW SD 54.5 fl High 35.1-43.9 [facility] Comment on above: Performed By: #### L 300.3900, M200.1000, L500.4050, L300.4310, L503.6005, L501.4021, L100.0100 ####[facility] [address] [place], [address] WBC (Bld) [#/Vol] 4.8 10*3/uL Normal 4.4-11.0 [facility] Comment on above: Performed By: #### L 300.3900, M200.1000, L500.4050, L300.4310, L503.6005, L501.4021, L100.0100 ####[facility] [address] [place], [address] Carbon dioxide, total [Moles /volume] in Central venous bloodOrdered By: Janak Hernandez on 10-31-2024 CO2 [Moles/Vol] 29.1 mmol/L 21.0-32.0 [facility] Chest PA and Lateralon 10-31 Chest PA and Lateral Normal [facility] Chloride assayOrdered By: Deven Hernandez on 10-31-2024 Chloride [Moles/Vol] 101 mmol/L 98-108 [facility] Comprehensive Metabolic Prof ilon 10-31-2024 Albumin [Mass/Vol] 3.7 g/dL Normal 3.4-4.8 [facility] Comment on above: Performed By: #### L 300.3900, M200.1000, L500.4050, L300.4310, L503.6005, L501.4021, L100.0100 ####[facility] [address] [place], [address] Albumin/Globulin [Mass ratio] 1.2 {ratio} Normal 0.9-2.4 [facility] Comment on above: Performed By: #### L 300.3900, M200.1000, L500.4050, L300.4310, L503.6005, L501.4021, L100.0100 ####[facility] [address] [place], [address] ALK PHOS 66 U/L Normal 35-104 [facility] Comment on above: Performed By: #### L 300.3900, M200.1000, L500.4050, L300.4310, L503.6005, L501.4021, L100.0100 ####[facility] [address] [place], [address] ALT [Catalytic activity/Vol] 8 U/L Normal <=34 [facility] Comment on above: Performed By: #### L 300.3900, M200.1000, L500.4050, L300.4310, L503.6005, L501.4021, L100.0100 ####[facility] [address] [place], [address] AST [Catalytic activity/Vol] 19 U/L Normal <=31 [facility] Comment on above: Result Comment: Hemo lysis present, Results??could be affected.?? Performed By: #### L 300.3900, M200.1000, L500.4050, L300.4310, L503.6005, L501.4021, L100.0100 ####[facility] [address] [place], [address] Bilirubin [Mass/Vol] 0.17 mg/dL Normal 0.00-1.30 [facility] Comment on above: Performed By: #### L 300.3900, M200.1000, L500.4050, L300.4310, L503.6005, L501.4021, L100.0100 ####[facility] [address] [place], [address] BUN/CRE 15.8 RATIO Normal 10-20 [facility] Comment on above: Performed By: #### L 300.3900, M200.1000, L500.4050, L300.4310, L503.6005, L501.4021, L100.0100 ####[facility] [address] [place], [address] Calcium [Mass/Vol] 8.9 mg/dL Normal 7.6-11.0 [facility] Comment on above: Performed By: #### L 300.3900, M200.1000, L500.4050, L300.4310, L503.6005, L501.4021, L100.0100 ####[facility] [address] [place], [address] Chloride [Moles/Vol] 101 mmol/L Normal 98-108 [facility] Comment on above: Performed By: #### L 300.3900, M200.1000, L500.4050, L300.4310, L503.6005, L501.4021, L100.0100 ####[facility] [address] [place], [address] CO2 [Moles/Vol] 29.1 mmol/L Normal 21.0-32.0 [facility] Comment on above: Performed By: #### L 300.3900, M200.1000, L500.4050, L300.4310, L503.6005, L501.4021, L100.0100 ####[facility] [address] [place], [address] Creatinine [Mass/Vol] 1.71 mg/dL High 0.70-1.20 [facility] Comment on above: Performed By: #### L 300.3900, M200.1000, L500.4050, L300.4310, L503.6005, L501.4021, L100.0100 ####[facility] [address] [place], [address] ECRCL 37.98 ml/min Low 50-250 [facility] Comment on above: Performed By: #### L 300.3900, M200.1000, L500.4050, L300.4310, L503.6005, L501.4021, L100.0100 ####[facility] [address] [place], [address] GAP 9 Normal 5-15 [facility] Comment on above: Performed By: #### L 300.3900, M200.1000, L500.4050, L300.4310, L503.6005, L501.4021, L100.0100 ####[facility] [address] [place], [address] GFR/1.73 sq M.predicted among non-blacks MDRD (S/P/Bld) [Vol rate/Area] 31 mL/min/{1.73_m2} Low >60 [facility] Comment on above: Result Comment: mL/m in/1.73m2 CKD-EPI Creatinine Equation (2020) Performed By: #### L 300.3900, M200.1000, L500.4050, L300.4310, L503.6005, L501.4021, L100.0100 ####[facility] [address] [place], [address] Globulin (S) [Mass/Vol] 3.2 g/dL Normal 2.2-4.2 [facility] Comment on above: Performed By: #### L 300.3900, M200.1000, L500.4050, L300.4310, L503.6005, L501.4021, L100.0100 ####[facility] [address] [place], [address] Glucose [Mass/Vol] 112 mg/dL High 70-99 [facility] Comment on above: Performed By: #### L 300.3900, M200.1000, L500.4050, L300.4310, L503.6005, L501.4021, L100.0100 ####[facility] [address] [place], [address] Potassium [Moles/Vol] 4.5 mmol/L Normal 3.3-5.1 [facility] Comment on above: Result Comment: Hemo lysis present, Results??could be affected.?? Performed By: #### L 300.3900, M200.1000, L500.4050, L300.4310, L503.6005, L501.4021, L100.0100 ####[facility] [address] [place], [address] Sodium [Moles/Vol] 139 mmol/L Normal 133-145 [facility] Comment on above: Performed By: #### L 300.3900, M200.1000, L500.4050, L300.4310, L503.6005, L501.4021, L100.0100 ####[facility] [address] [place], [address] T PROT 6.8 g/dL Normal 5.9-8.4 [facility] Comment on above: Performed By: #### L 300.3900, M200.1000, L500.4050, L300.4310, L503.6005, L501.4021, L100.0100 ####[facility] [address] [place], [place], [address] Urea nitrogen [Mass/Vol] 27 mg/dL High 4-19 [facility] Comment on above: Performed By: #### L 300.3900, M200.1000, L500.4050, L300.4310, L503.6005, L501.4021, L100.0100 ####[facility] [address] [place], [place], [address] Echo Complete W/ Contraston 10-31-2024 Echo Complete W/ Contrast Normal [facility] Emergency Department Summary on 10-31-2024 Emergency Department Summary Normal [facility] Eosinophil percentageOrdered By: Janak Hernandez on 10-31-2024 Eosinophils/100 WBC (Bld) 0.2 % 0-5 [facility] Erythrocyte distribution wid th ratioOrdered By: Janak Hernandez on 10-31-2024 Erythrocyte distribution width (RBC) [Ratio] 14.4 % 11.6-14.6 [facility] Erythrocyte distribution wid th standard deviationOrdered By: Janak Hernandez on 10-31-2024 Erythrocyte distribution width (RBC) [Ratio] 54.5 fl High 35.1-43.9 [facility] Glomerular filtration rate ( GFR) estimation/1.73 sq m using serum, plasma, or whole bOrdered By: Janak Hernandez on 10-31-2024 GFR/1.73 sq M.predicted among non-blacks MDRD (S/P/Bld) [Vol rate/Area] 31 mL/min/{1.73_m2} Low >60 [facility] Comment on above: mL/min/1.73m2 CKD-EP I Creatinine Equation (2020) H AND P Exam - Hospitaliston 10-31-2024 H&P Exam - Hospitalist Normal [facility] Hematocrit Auto (Bld) [Volum e fraction]Ordered By: Janak Hernandez on 10-31-2024 Hematocrit (Bld) [Volume fraction] 33.1 % Low 37-47 [facility] Hemoglobin measurementOrdere d By: Janak Hernandez on 10-31-2024 Hemoglobin (Bld) [Mass/Vol] 10.0 g/dL Low 12.0-15.0 [facility] Immature granulocytes/100 WB C Auto (Bld)Ordered By: Janak Hernandez on 10-31-2024 Immature granulocytes/100 WBC (Bld) 1.400 % High 0.0-0.9 [facility] Comment on above: IG% - Immature Granu locytes (promyelocytes, myelocytes and metamyelocytes) > 1% indicates that a LEFT SHIFT is Present. Influenza virus A and B and SARS-CoV-2 (COVID-19) and Respiratory syncytial virus RNAOrdered By: Janak Hernandez on 10-31-2024 SARS-CoV-2 (COVID-19) RNA NICOLE+probe Ql (Unsp spec) [facility] International normalized rat io (INR) calculationOrdered By: Janak Hernandez on 10-31-2024 INR Coag (Bld) [Relative time] 1.2 {INR} [facility] Ketones Test strip Ql (U)Ord ered By: Janak Hernandez on 10-31-2024 Ketones Ql (U) Negative Negative [facility] L499.0042on 10-31-2024 Trop T High Sen 30 ng/L High <=14 [facility] Comment on above: Performed By: #### L 499.0042 ####[facility] [address] [place], [address] L499.0043on 10-31-2024 Trop T High Sen 32 ng/L High <=14 [facility] Comment on above: Performed By: #### L 499.0043 ####[facility] [address] [place], [address] L501.4021on 10-31-2024 Trop T High Sen 35 ng/L High <=14 [facility] Comment on above: Performed By: #### L 300.3900, M200.1000, L500.4050, L300.4310, L503.6005, L501.4021, L100.0100 ####[facility] [address] [place], [place], [address] L503.7505on 10-31-2024 Natriuretic peptide B (Bld) [Mass/Vol] 1111 pg/mL High <=900 [facility] Comment on above: Result Comment: Hear t Failure Unlikely: < 300 pg/mLHeart Failure Likely< 50 Years: > 450 pg/mL50-75 Years: > 900 pg/mL>75 Years: > 1800 pg/mL Performed By: #### L 503.7505 ####[facility] [address] [place], [place], [address] Laboratory - Chemistry and C hemistry - challengeOrdered By: Janak Hernandez on 10-31-2024 AST [Catalytic activity/Vol] 19 U/L <32 [facility] Comment on above: Hemolysis present, R esults could be affected. Lactic Acidon 10-31-2024 Lactate [Moles/Vol] mmol/L Normal 0.0-2.0 [facility] Comment on above: Order Comment: Y Performed By: #### L 300.3900, M200.1000, L500.4050, L300.4310, L503.6005, L501.4021, L100.0100 ####[facility] [address] [place], [place], [address] Lactic acid measurementOrder ed By: Janak Hernandez on 10-31-2024 Lactate [Moles/Vol] mmol/L 0.0-2.0 [facility] M100.678on 10-31-2024 M100.678 Pending SARS-CoV-2 (COVID 19) Negative INFLUENZA A Negative INFLUENZA B Negative RSV PCR Negative Normal [facility] Comment on above: Performed By: #### M 100.2200, L400.0001, M100.678 ####[facility] [address] [place], [address] MCV (mean corpuscular volume ) determinationOrdered By: Janak Hernandez on 10-31-2024 MCV (RBC) [Entitic vol] 105.1 fL High 81-[address] [facility] Mean corpuscular hemoglobin (MCH) determinationOrdered By: Janak Hernandez on 10-31-2024 MCH (RBC) [Entitic mass] 31.7 pg 27.0-32.0 [facility] Mean corpuscular hemoglobin concentration (MCHC) determinationOrdered By: Janak Hernandez on 10-31-2024 MCHC (RBC) [Mass/Vol] 30.2 g/dL Low 32-36 [facility] Mean platelet volume determi nationOrdered By: Janak Hernandez on 10-31-2024 Platelet mean volume (Bld) [Entitic vol] 10.5 fL 6.2-12.0 [facility] Measurement, pHOrdered By: Kecia Hernandez on 10-31-2024 pH (Unsp spec) 7.18 [pH] Low 7.35-7.45 [facility] Microscopic analysis of urin e for red blood cells (RBC)Ordered By: Janak Hernandez on 10-31-2024 Microscopic analysis of urine for red blood cells (RBC) 0-5 SEEN /hpf 0-5 [facility] Monocyte percentageOrdered B y: Janak Hernandez on 10-31-2024 Monocytes/100 WBC (Bld) 9.9 % 0-[address] [facility] Mucus LM Ql (Urine sed)Order ed By: Janak Hernandez on 10-31-2024 Mucus Ql (Urine sed) 0 SEEN /hpf [facility] Natriuretic peptide.B prohor marichuy N-Terminal [Mass/volume] in Serum or PlasmaOrdered By: Janak Hernandez on 10-31-2024 Natriuretic peptide.B prohormone N-Terminal [Mass/Vol] 1111 pg/mL High <900 [facility] Comment on above: Heart Failure Unlike ly: < 300 pg/mLHeart Failure Likely< 50 Years: > 450 pg/mL50-75 Years: > 900 pg/mL>75 Years: > 1800 pg/mL Neutrophil percentageOrdered By: Janak Hernandez on 10-31-2024 Neutrophils/100 WBC (Bld) 78.2 % High 47-70 [facility] Nitrite Test strip Ql (U)Ord ered By: Janak Hernandez on 10-31-2024 Nitrite Ql (U) Negative Negative [facility] No Panel InformationOrdered By: Janak Hernandez on 10-31-2024 Bld Gas Crit Called To/Read Back By Yes [facility] Blood Gas Notified Time 17:27:[address] [facility] Blood Gas Notified Whom chichi Mos[facility] Blood Gas Sample Site L Radial [facility] Blood Gas Specimen Type ART [facility] Blood Gas Vent Mode Not entered [facility] Oxygen Delivery Device BiPAP [facility] Nucleated red blood cell per centageOrdered By: Janak Hernandez on 10-31-2024 Nucleated RBC/100 WBC (Bld) [Ratio] 0 % 0-5 [facility] Partial Thromboplast Timeon 10-31-2024 aPTT Coag (Bld) [Time] 32.4 s Normal 24.1-36.2 [facility] Comment on above: Performed By: #### L 300.3900, M200.1000, L500.4050, L300.4310, L503.6005, L501.4021, L100.0100 ####[facility] [address] [place], [place], [id number] Platelet countOrdered By: Deven Hernandez on 10-31-2024 Platelets (Bld) [#/Vol] 156 10*3/uL 150-450 [facility] Potassium measurement (mass/ volume)Ordered By: Janak Hernandez on 10-31-2024 Potassium (Unsp spec) [Mass/Vol] 4.5 mmol/L 3.3-5.1 [facility] Comment on above: Hemolysis present, R esults could be affected. Protein Test strip Ql (U)Ord ered By: Janak Hernandez on 10-31-2024 Protein Ql (U) 500 mg/dl High Negative [facility] Prothrombin Time w/INRon INR Coag (PPP) [Relative time] 1.2 {INR} Normal [facility] Comment on above: Performed By: #### L 300.3900, M200.1000, L500.4050, L300.4310, L503.6005, L501.4021, L100.0100 ####[facility] [address] [place], [address] PT Coag (PPP) [Time] 15.0 s High 11.7-14.9 [facility] Comment on above: Performed By: #### L 300.3900, M200.1000, L500.4050, L300.4310, L503.6005, L501.4021, L100.0100 ####[facility] [address] [place], [address] Prothrombin timeOrdered By: Janak Hernandez on 10-31-2024 PT Coag (PPP) [Time] 15.0 s High 11.7-14.9 [facility] RBC Auto (Bld) [#/Vol]Ordere d By: Janak Hernandez on 10-31-2024 RBC (Bld) [#/Vol] 3.15 10*6/uL Low 4.2-5.4 [facility] Respiratory pathogens detect ion panel by molecular detection methodOrdered By: Zhane Stone on 10-31-2024 Respiratory pathogens DNA and RNA panel NICOLE+probe (Resp) [facility] Serum creatinine measurement (mass/volume)Ordered By: Janak Hernandez on 10-31-2024 Creatinine [Mass/Vol] 1.71 mg/dL High 0.70-1.20 [facility] Serum globulin measurementOr dered By: Janak Hernandez on 10-31-2024 Globulin (S) [Mass/Vol] 3.2 g/dL 2.2-4.[address] [facility] Serum glucose measurement (m ass/volume)Ordered By: Janak Hernandez on 10-31-2024 Glucose [Mass/Vol] 112 mg/dL High 70-99 [facility] Serum or plasma alanine centeno otransferase (ALT) measurementOrdered By: Janak Hernandez on 10-31-2024 ALT [Catalytic activity/Vol] 8 U/L <35 [facility] Serum or plasma albumin reese urement (mass/volume)Ordered By: Janak Hernandez on 10-31-2024 Albumin [Mass/Vol] 3.7 g/dL 3.4-4.8 [facility] Serum or plasma albumin/glob ulin mass ratioOrdered By: Janak Hernandez on 10-31-2024 Albumin/Globulin [Mass ratio] 1.2 {ratio} 0.9-2.4 [facility] Serum or plasma alkaline sohail sphatase measurementOrdered By: Janak Hernandez on 10-31-2024 ALP [Catalytic activity/Vol] 66 U/L 35-104 [facility] Serum or plasma calcium reese urement (mass/volume)Ordered By: Janak Hernandez on 10-31-2024 Calcium [Mass/Vol] 8.9 mg/dL 7.6-11.0 [facility] Serum or plasma urea nitroge n measurement (mass/volume)Ordered By: Janak Hernandez on 10-31-2024 Urea nitrogen [Mass/Vol] 27 mg/dL High 4-19 [facility] Sodium levelOrdered By: Efrain Hernandez on 10-31-2024 Sodium [Moles/Vol] 139 mmol/L 133-145 [facility] Squamous epithelial cells de tection in urine sediment by light microscopyOrdered By: Janak Hernandez on 10-31-2024 Epithelial cells.squamous LM Ql (Urine sed) 0-5 SEEN /hpf 5-10 [facility] Total carbon dioxide measure mentOrdered By: Janak Hernandez on 10-31-2024 CO2 [Moles/Vol] 31 mmol/L [facility] Total proteinOrdered By: Boris Hernandez on 10-31-2024 Protein [Mass/Vol] 6.8 g/dL 5.9-8.4 [facility] Troponin T.cardiac [Mass/vol ume] in Serum or Plasma by High sensitivity methodOrdered By: Janak Hernandez on 10-31-2024 Troponin T.cardiac High sensitivity method [Mass/Vol] 32 ng/L High <14 [facility] Troponin T.cardiac High sensitivity method [Mass/Vol] 30 ng/L High <14 [facility] Troponin T.cardiac High sensitivity method [Mass/Vol] 35 ng/L High <14 [facility] Urinalysis, Completeon 10-31 AMORPHOUS 3+ Normal [facility] Comment on above: Order Comment: [facility] CTOR TO SPECIFY Performed By: #### M 100.2200, L400.0001, M100.678 ####[facility] [address] [place], [address] EPI,SQUAMOUS 0-5 SEEN Normal 5-10 [facility] Comment on above: Order Comment: COLLE CTOR TO SPECIFY Performed By: #### M 100.2200, L400.0001, M100.678 ####[facility] [address] [place], [address] RBC 0-5 SEEN Normal 0-5 [facility] Comment on above: Order Comment: [facility] CTOR TO SPECIFY Performed By: #### M 100.2200, L400.0001, M100.678 ####[facility] [address] [place], [address] WBC 0-5 SEEN Normal 0-5 [facility] Comment on above: Order Comment: [facility] CTOR TO SPECIFY Performed By: #### M 100.2200, L400.0001, M100.678 ####[facility] [address] [place], [address] BACTERIA 0 SEEN Normal None Seen [facility] Comment on above: Order Comment: [facility] CTOR TO SPECIFY Performed By: #### M 100.2200, L400.0001, M100.678 ####[facility] [address] [place], [address] Mucus Ql (Urine sed) 0 SEEN Normal [facility] Comment on above: Order Comment: [facility] CTOR TO SPECIFY Performed By: #### M 100.2200, L400.0001, M100.678 ####[facility] [address] [place], [address] Urine clarityOrdered By: Boris Hernandez on 10-31-2024 Clarity (U) Cloudy Clear [facility] Urine color determinationOrd ered By: Janak Hernandez on 10-31-2024 Color (U) Yellow Yellow [facility] Urine cultureOrdered By: Boris Hernandez on 10-31-2024 Bacteria identified Cx Nom (U) Positive Abnormal [facility] Urine glucose detectionOrder ed By: Janak Hernandez on 10-31-2024 Glucose Ql (U) Normal mg/dl Normal [facility] Urine leukocyte esterase det ection by dipstickOrdered By: Janak Hernandez on 10-31-2024 Leukocyte esterase Test strip Ql (U) Negative Negative [facility] Urine pHOrdered By: Janak steinberg on 10-31-2024 pH (U) 6.0 [pH] 5.0 - 8.0 [facility] Urine sediment bacteria coun t by microscopy (number/high power field)Ordered By: Janak Hernandez on 10-31-2024 Bacteria LM.HPF (Urine sed) [#/Area] 0 /[HPF] None Seen [facility] Urine specific gravity measu rementOrdered By: Janak Hernandez on 10-31-2024 Specific gravity (U) [Rel density] 1.020 1.002-1.030 [facility] Urine urobilinogen measureme ntOrdered By: Janak Hernandez on 10-31-2024 Urobilinogen Ql (U) Normal mg/dl Normal [facility] White blood cell (WBC) count Ordered By: Janak Hernandez on 10-31-2024 WBC (Bld) [#/Vol] 4.8 10*3/uL 4.4-11.0 [facility] White blood cell countOrdere d By: Janak Hernandez on 10-31-2024 White blood cell count 0-5 SEEN /hpf 0-5 [facility] MR/BMS.BVSon 06-29-2024 MR/BMS.BVS Normal [facility] CTA Head AND Neck W/ Contras ton 06-21-2024 CTA Head AND Neck W/ Contrast Normal [facility] Carotid Duplex Ultrasoundon 05-03-2024 Carotid Duplex Ultrasound Normal [facility] MR/BMS.BVSon 04-18-2024 MR/BMS.BVS Normal [facility] L509.8000on 03-29-2024 Syphilis Abs Non-Reactive Normal [facility] Comment on above: Performed By: #### L 509.8000 ####[facility] [address] [place], [address] Venous Duplex US, Unilateral on 03-10-2024 Venous Duplex US, Unilateral Normal [facility] Basic Metabolic Profile (BMP )on 01-25-2024 BUN Normal 7-18 [facility] Comment on above: Result Comment: Canc elled via OM: Order cancelled - Patient discharged Performed By: #### L 500.2500, L100.0100 ####[facility] [address] [place], [address] BUN/CRE Normal 10-20 [facility] Comment on above: Result Comment: Canc elled via OM: Order cancelled - Patient discharged Performed By: #### L 500.2500, L100.0100 ####[facility] [address] [place], [address] CA,Total Normal 8.5-10.1 [facility] Comment on above: Result Comment: Canc elled via OM: Order cancelled - Patient discharged Performed By: #### L 500.2500, L100.0100 ####[facility] [address] [place], [address] CL Normal 98-107 [facility] Comment on above: Result Comment: Canc elled via OM: Order cancelled - Patient discharged Performed By: #### L 500.2500, L100.0100 ####[facility] [address] [place], [address] CO2 Normal 21.0-32.0 [facility] Comment on above: Result Comment: Canc elled via OM: Order cancelled - Patient discharged Performed By: #### L 500.2500, L100.0100 ####[facility] [address] [place], [address] CREAT,SERUM Normal 0.55-1.02 [facility] Comment on above: Result Comment: Canc elled via OM: Order cancelled - Patient discharged Performed By: #### L 500.2500, L100.0100 ####[facility] [address] [place], [address] EST GFR Normal >60 [facility] Comment on above: Result Comment: Canc elled via OM: Order cancelled - Patient discharged Performed By: #### L 500.2500, L100.0100 ####[facility] [address] [place], [address] EST GFR - AA Normal >60 [facility] Comment on above: Result Comment: Canc elled via OM: Order cancelled - Patient discharged Performed By: #### L 500.2500, L100.0100 ####[facility] [address] [place], [address] GAP Normal 5-15 [facility] Comment on above: Result Comment: Canc elled via OM: Order cancelled - Patient discharged Performed By: #### L 500.2500, L100.0100 ####[facility] [address] [place], [address] GLU Normal 74-106 [facility] Comment on above: Result Comment: Canc elled via OM: Order cancelled - Patient discharged Performed By: #### L 500.2500, L100.0100 ####[facility] [address] [place], [address] Potassium Normal 3.5-5.1 [facility] Comment on above: Result Comment: Canc elled via OM: Order cancelled - Patient discharged Performed By: #### L 500.2500, L100.0100 ####[facility] [address] [place], [address] Basic Metabolic Profile (BMP) Normal 136-145 [facility] Comment on above: Result Comment: Canc elled via OM: Order cancelled - Patient discharged Performed By: #### L 500.2500, L100.0100 ####[facility] [address] [place], [address] CBC W/Diff, Automatedon 08- Absolute Neut Normal 2.0-7.7 [facility] Comment on above: Result Comment: Canc elled via OM: Order cancelled - Patient discharged Performed By: #### L 500.2500, L100.0100 ####[facility] [address] [place], [address] HCT Normal 37-47 [facility] Comment on above: Result Comment: Canc elled via OM: Order cancelled - Patient discharged Performed By: #### L 500.2500, L100.0100 ####[facility] [address] [place], [address] HGB Normal 12.0-15.0 [facility] Comment on above: Result Comment: Canc elled via OM: Order cancelled - Patient discharged Performed By: #### L 500.2500, L100.0100 ####[facility] [address] [place], [address] MCH Normal 27.0-32.0 [facility] Comment on above: Result Comment: Canc elled via OM: Order cancelled - Patient discharged Performed By: #### L 500.2500, L100.0100 ####[facility] [address] [place], [address] MCHC Normal 32-36 [facility] Comment on above: Result Comment: Canc elled via OM: Order cancelled - Patient discharged Performed By: #### L 500.2500, L100.0100 ####[facility] [address] [place], [address] MCV Normal 81-99 [facility] Comment on above: Result Comment: Canc elled via OM: Order cancelled - Patient discharged Performed By: #### L 500.2500, L100.0100 ####[facility] [address] [place], [address] NEUT% Normal 47-70 [facility] Comment on above: Result Comment: Canc elled via OM: Order cancelled - Patient discharged Performed By: #### L 500.2500, L100.0100 ####[facility] [address] [place], [address] PLT Normal 150-450 [facility] Comment on above: Result Comment: Canc elled via OM: Order cancelled - Patient discharged Performed By: #### L 500.2500, L100.0100 ####[facility] [address] [place], [address] RBC Normal 4.2-5.4 [facility] Comment on above: Result Comment: Canc elled via OM: Order cancelled - Patient discharged Performed By: #### L 500.2500, L100.0100 ####[facility] [address] [place], [address] RDW CV Normal 11.6-14.6 [facility] Comment on above: Result Comment: Canc elled via OM: Order cancelled - Patient discharged Performed By: #### L 500.2500, L100.0100 ####[facility] [address] [place], [address] RDW SD Normal 35.1-43.9 [facility] Comment on above: Result Comment: Canc elled via OM: Order cancelled - Patient discharged Performed By: #### L 500.2500, L100.0100 ####[facility] [address] [place], [address] WBC Normal 4.4-11.0 [facility] Comment on above: Result Comment: Canc elled via OM: Order cancelled - Patient discharged Performed By: #### L 500.2500, L100.0100 ####[facility] [address] [place], [address] Basic Metabolic Profile (BMP )on 01-24-2024 BUN/CRE 24.9 RATIO High 10-20 [facility] Comment on above: Performed By: #### L 500.2500, L100.0100 ####[facility] [address] [place], [address] CA,Total 8.2 mg/dL Low 8.5-10.1 [facility] Comment on above: Performed By: #### L 500.2500, L100.0100 ####[facility] [address] [place], [address] Chloride [Moles/Vol] 108 mmol/L High 98-107 [facility] Comment on above: Performed By: #### L 500.2500, L100.0100 ####[facility] [address] [place], [address] CO2 [Moles/Vol] 26.0 mmol/L Normal 21.0-32.0 [facility] Comment on above: Performed By: #### L 500.2500, L100.0100 ####[facility] [address] [place], [address] Creatinine [Mass/Vol] 1.97 mg/dL High 0.55-1.02 [facility] Comment on above: Result Comment: The validity of the calculated GFR GFRAA in patients over70 years has not been determined. Clinical correlation isessential. Performed By: #### L 500.2500, L100.0100 ####[facility] [address] [place], [address] ECRCL 34.22 ml/min Normal [facility] Comment on above: Performed By: #### L 500.2500, L100.0100 ####[facility] [address] [place], [address] EST GFR - AA 32 mL/min Low >60 [facility] Comment on above: Result Comment: Afri can Senegalese GFR Calc Performed By: #### L 500.2500, L100.0100 ####[facility] [address] [place], [address] GAP 5 Normal 5-15 [facility] Comment on above: Performed By: #### L 500.2500, L100.0100 ####[facility] [address] [place], [address] GFR/1.73 sq M.predicted among non-blacks MDRD (S/P/Bld) [Vol rate/Area] 26 mL/min/{1.73_m2} Low >60 [facility] Comment on above: Result Comment: Non- GFR Calc Performed By: #### L 500.2500, L100.0100 ####[facility] [address] [place], [address] Glucose [Mass/Vol] 107 mg/dL High 74-106 [facility] Comment on above: Result Comment: Fast ing Glucose result from 100 to 125 mg/dLsuggests IMPAIRED HOMEOSTASIS per A.D.A. criteria. Performed By: #### L 500.2500, L100.0100 ####[facility] [address] [place], [address] Potassium [Moles/Vol] 4.1 mmol/L Normal 3.5-5.1 [facility] Comment on above: Performed By: #### L 500.2500, L100.0100 ####[facility] [address] [place], [address] Sodium [Moles/Vol] 139 mmol/L Normal 136-145 [facility] Comment on above: Performed By: #### L 500.2500, L100.0100 ####[facility] [address] [place], [address] Urea nitrogen [Mass/Vol] 49 mg/dL High 7-18 [facility] Comment on above: Performed By: #### L 500.2500, L100.0100 ####[facility] [address] [place], [address] CBC W/Diff, Automatedon 08-2 -2023 Absolute Lymph 0.55 X10 3/uL Low 0.83-4.51 [facility] Comment on above: Performed By: #### L 500.2500, L100.0100 ####[facility] [address] [place], [address] Absolute Neut 3.5 X10 3/uL Normal 2.0-7.7 [facility] Comment on above: Performed By: #### L 500.2500, L100.0100 ####[facility] [address] [place], [address] Basophils/100 WBC (Bld) 0.2 % Normal 0-[address] [facility] Comment on above: Performed By: #### L 500.2500, L100.0100 ####[facility] [address] [place], [address] Eosinophils/100 WBC (Bld) 0.0 % Normal 0-5 [facility] Comment on above: Performed By: #### L 500.2500, L100.0100 ####[facility] [address] [place], [address] Erythrocyte distribution width (RBC) [Ratio] 15.1 % High 11.6-14.6 [facility] Comment on above: Performed By: #### L 500.2500, L100.0100 ####[facility] [address] [place], [address] Hematocrit (Bld) [Volume fraction] 34.3 % Low 37-47 [facility] Comment on above: Performed By: #### L 500.2500, L100.0100 ####[facility] [address] [place], [address] Hemoglobin (Bld) [Mass/Vol] 10.6 g/dL Low 12.0-15.0 [facility] Comment on above: Performed By: #### L 500.2500, L100.0100 ####[facility] [address] [place], [address] IG% 1.100 High 0.0-0.9 [facility] Comment on above: Result Comment: IG% - Immature Granulocytes (promyelocytes, myelocytes andmetamyelocytes) > 1% indicates that a LEFT SHIFT is Present. Performed By: #### L 500.2500, L100.0100 ####[facility] [address] [place], [address] Lymphocytes/100 WBC (Bld) 11.7 % Low 19-41 [facility] Comment on above: Performed By: #### L 500.2500, L100.0100 ####[facility] [address] [place], [address] MCH (RBC) [Entitic mass] 32.1 pg High 27.0-32.0 [facility] Comment on above: Performed By: #### L 500.2500, L100.0100 ####[facility] [address] [place], [address] MCHC (RBC) [Mass/Vol] 30.9 g/dL Low 32-36 [facility] Comment on above: Performed By: #### L 500.2500, L100.0100 ####[facility] [address] [place], [address] MCV (RBC) [Entitic vol] 103.9 fL High 81-[address] [facility] Comment on above: Performed By: #### L 500.2500, L100.0100 ####[facility] [address] [place], [address] Monocytes/100 WBC (Bld) 11.9 % High 0-[address] [facility] Comment on above: Performed By: #### L 500.2500, L100.0100 ####[facility] [address] [place], [address] Neutrophils/100 WBC (Bld) 75.1 % High 47-70 [facility] Comment on above: Performed By: #### L 500.2500, L100.0100 ####[facility] [address] [place], [address] Nucleated RBC (Bld) [#/Vol] 0.9 10*3/uL Normal 0-5 [facility] Comment on above: Performed By: #### L 500.2500, L100.0100 ####[facility] [address] [place], [address] Platelet mean volume (Bld) [Entitic vol] 9.7 fL Normal 6.2-12.0 [facility] Comment on above: Performed By: #### L 500.2500, L100.0100 ####[facility] [address] [place], [address] Platelets (Bld) [#/Vol] 139 10*3/uL Low 150-450 [facility] Comment on above: Performed By: #### L 500.2500, L100.0100 ####[facility] [address] [place], [address] RBC (Bld) [#/Vol] 3.30 10*6/uL Low 4.2-5.4 [facility] Comment on above: Performed By: #### L 500.2500, L100.0100 ####[facility] [address] [place], [address] RDW SD 56.4 fl High 35.1-43.9 [facility] Comment on above: Performed By: #### L 500.2500, L100.0100 ####[facility] [address] [place], [address] WBC (Bld) [#/Vol] 4.7 10*3/uL Normal 4.4-11.0 [facility] Comment on above: Performed By: #### L 500.2500, L100.0100 ####[facility] [address] [place], [address] Discharge Instructionon 12-30 Discharge Instruction Normal [facility] Kidney and Bladderon 024 Kidney and Bladder Normal [facility] Basic Metabolic Profile (BMP )on 01-23-2024 BUN/CRE 24.8 RATIO High 10-20 [facility] Comment on above: Performed By: #### L 500.2500, L100.0100 ####[facility] [address] [place], [address] CA,Total 8.0 mg/dL Low 8.5-10.1 [facility] Comment on above: Performed By: #### L 500.2500, L100.0100 ####[facility] [address] [place], [address] Chloride [Moles/Vol] 106 mmol/L Normal 98-107 [facility] Comment on above: Performed By: #### L 500.2500, L100.0100 ####[facility] [address] [place], [address] CO2 [Moles/Vol] 23.0 mmol/L Normal 21.0-32.0 [facility] Comment on above: Performed By: #### L 500.2500, L100.0100 ####[facility] [address] [place], [address] Creatinine [Mass/Vol] 2.30 mg/dL High 0.55-1.02 [facility] Comment on above: Result Comment: The validity of the calculated GFR GFRAA in patients over70 years has not been determined. Clinical correlation isessential. Performed By: #### L 500.2500, L100.0100 ####[facility] [address] [place], [address] ECRCL 29.31 ml/min Normal [facility] Comment on above: Performed By: #### L 500.2500, L100.0100 ####[facility] [address] [place], [address] EST GFR - AA 27 mL/min Low >60 [facility] Comment on above: Result Comment: Afri can [place] GFR Calc Performed By: #### L 500.2500, L100.0100 ####[facility] [address] [place], [address] GAP 8 Normal 5-15 [facility] Comment on above: Performed By: #### L 500.2500, L100.0100 ####[facility] [address] [place], [address] GFR/1.73 sq M.predicted among non-blacks MDRD (S/P/Bld) [Vol rate/Area] 22 mL/min/{1.73_m2} Low >60 [facility] Comment on above: Result Comment: Non- GFR Calc Performed By: #### L 500.2500, L100.0100 ####[facility] [address] [place], [address] Glucose [Mass/Vol] 106 mg/dL Normal 74-106 [facility] Comment on above: Result Comment: Fast ing Glucose result from 100 to 125 mg/dLsuggests IMPAIRED HOMEOSTASIS per A.D.A. criteria. Performed By: #### L 500.2500, L100.0100 ####[facility] [address] [place], [address] Potassium [Moles/Vol] 4.4 mmol/L Normal 3.5-5.1 [facility] Comment on above: Performed By: #### L 500.2500, L100.0100 ####[facility] [address] [place], [address] Sodium [Moles/Vol] 137 mmol/L Normal 136-145 [facility] Comment on above: Performed By: #### L 500.2500, L100.0100 ####[facility] [address] [place], [address] Urea nitrogen [Mass/Vol] 57 mg/dL High 7-18 [facility] Comment on above: Performed By: #### L 500.2500, L100.0100 ####[facility] [address] [place], [address] Blood Gases by [facility] 024 RHIANNON TEST Positive Normal [facility] Comment on above: Performed By: #### L 9000.0800 ####[facility] [address] [place], [address] Base excess Calc (Bld) [Moles/Vol] 0 mmol/L Normal -2 to +2 [facility] Comment on above: Performed By: #### L 9000.0800 ####[facility] [address] [place], [address] Blood Gas Type ART Normal [facility] Comment on above: Performed By: #### L 9000.0800 ####[facility] [address] [place], [address] CO2 [Moles/Vol] 28 mmol/L Normal [facility] Comment on above: Performed By: #### L 9000.0800 ####[facility] [address] [place], [address] FI02 2.0 Normal [facility] Comment on above: Performed By: #### L 9000.0800 ####[facility] [address] [place], [address] HCO3 (Bld) [Moles/Vol] 26.7 mmol/L High 22-[address] [facility] Comment on above: Performed By: #### L 9000.0800 ####[facility] [address] [place], [address] Mode Not entered Normal [facility] Comment on above: Performed By: #### L 9000.0800 ####[facility] [address] [place], [address] O2 Delivery Dev Cannula Normal [facility] Comment on above: Performed By: #### L 9000.0800 ####[facility] [address] [place], [address] pCO2 55.5 mmHg High 35-45 [facility] Comment on above: Performed By: #### L 9000.0800 ####[facility] [address] [place], [address] pH (Bld) 7.29 [pH] Low 7.35-7.45 [facility] Comment on above: Performed By: #### L 9000.0800 ####[facility] [address] [place], [address] PO2 68 mmHG Low 75-100 [facility] Comment on above: Performed By: #### L 9000.0800 ####[facility] [address] [place], [address] SITE R Radial Normal [facility] Comment on above: Performed By: #### L 9000.0800 ####[facility] [address] [place], [address] SO2 91 Low 95-99 [facility] Comment on above: Performed By: #### L 9000.0800 ####[facility] [address] [place], [address] CBC W/Diff, Automatedon 12-30 Absolute Lymph 0.60 X10 3/uL Low 0.83-4.51 [facility] Comment on above: Performed By: #### L 500.2500, L100.0100 ####[facility] [address] [place], [address] Absolute Neut 3.9 X10 3/uL Normal 2.0-7.7 [facility] Comment on above: Performed By: #### L 500.2500, L100.0100 ####[facility] [address] [place], [address] Basophils/100 WBC (Bld) 0.4 % Normal 0-[address] [facility] Comment on above: Performed By: #### L 500.2500, L100.0100 ####[facility] [address] [place], [address] Eosinophils/100 WBC (Bld) 0.0 % Normal 0-5 [facility] Comment on above: Performed By: #### L 500.2500, L100.0100 ####[facility] [address] [place], [address] Erythrocyte distribution width (RBC) [Ratio] 15.2 % High 11.6-14.6 [facility] Comment on above: Performed By: #### L 500.2500, L100.0100 ####[facility] [address] [place], [address] Hematocrit (Bld) [Volume fraction] 35.2 % Low 37-47 [facility] Comment on above: Performed By: #### L 500.2500, L100.0100 ####[facility] [address] [place], [address] Hemoglobin (Bld) [Mass/Vol] 10.6 g/dL Low 12.0-15.0 [facility] Comment on above: Performed By: #### L 500.2500, L100.0100 ####[facility] [address] [place], [address] IG% 1.000 High 0.0-0.9 [facility] Comment on above: Result Comment: IG% - Immature Granulocytes (promyelocytes, myelocytes andmetamyelocytes) > 1% indicates that a LEFT SHIFT is Present. Performed By: #### L 500.2500, L100.0100 ####[facility] [address] [place], [address] Lymphocytes/100 WBC (Bld) 11.5 % Low 19-41 [facility] Comment on above: Performed By: #### L 500.2500, L100.0100 ####[facility] [address] [place], [address] MCH (RBC) [Entitic mass] 32.0 pg Normal 27.0-32.0 [facility] Comment on above: Performed By: #### L 500.2500, L100.0100 ####[facility] [address] [place], [address] MCHC (RBC) [Mass/Vol] 30.1 g/dL Low 32-36 [facility] Comment on above: Performed By: #### L 500.2500, L100.0100 ####[facility] [address] [place], [address] MCV (RBC) [Entitic vol] 106.3 fL High 81-[address] [facility] Comment on above: Performed By: #### L 500.2500, L100.0100 ####[facility] [address] [place], [address] Monocytes/100 WBC (Bld) 12.3 % High 0-[address] [facility] Comment on above: Performed By: #### L 500.2500, L100.0100 ####[facility] [address] [place], [address] Neutrophils/100 WBC (Bld) 74.8 % High 47-70 [facility] Comment on above: Performed By: #### L 500.2500, L100.0100 ####[facility] [address] [place], [address] Nucleated RBC (Bld) [#/Vol] 1.0 10*3/uL Normal 0-5 [facility] Comment on above: Performed By: #### L 500.2500, L100.0100 ####[facility] [address] [place], [address] Platelet mean volume (Bld) [Entitic vol] 10.1 fL Normal 6.2-12.0 [facility] Comment on above: Performed By: #### L 500.2500, L100.0100 ####[facility] [address] [place], [address] Platelets (Bld) [#/Vol] 146 10*3/uL Low 150-450 [facility] Comment on above: Performed By: #### L 500.2500, L100.0100 ####[facility] [address] [place], [address] RBC (Bld) [#/Vol] 3.31 10*6/uL Low 4.2-5.4 [facility] Comment on above: Performed By: #### L 500.2500, L100.0100 ####[facility] [address] [place], [address] RDW SD 57.9 fl High 35.1-43.9 [facility] Comment on above: Performed By: #### L 500.2500, L100.0100 ####[facility] [address] [place], [address] WBC (Bld) [#/Vol] 5.2 10*3/uL Normal 4.4-11.0 [facility] Comment on above: Performed By: #### L 500.2500, L100.0100 ####[facility] [address] [place], [address] Basic Metabolic Profile (BMP )on 01-22-2024 BUN/CRE 20.4 RATIO High 10-20 [facility] Comment on above: Performed By: #### L 501.5200, L100.0100, L501.2300, L500.2500 ####[facility] [address] [place], [address] CA,Total 7.6 mg/dL Low 8.5-10.1 [facility] Comment on above: Performed By: #### L 501.5200, L100.0100, L501.2300, L500.2500 ####[facility] [address] [place], [address] Chloride [Moles/Vol] 103 mmol/L Normal 98-107 [facility] Comment on above: Performed By: #### L 501.5200, L100.0100, L501.2300, L500.2500 ####[facility] [address] [place], [address] CO2 [Moles/Vol] 28.0 mmol/L Normal 21.0-32.0 [facility] Comment on above: Performed By: #### L 501.5200, L100.0100, L501.2300, L500.2500 ####[facility] [address] [place], [address] Creatinine [Mass/Vol] 2.60 mg/dL High 0.55-1.02 [facility] Comment on above: Result Comment: The validity of the calculated GFR GFRAA in patients over70 years has not been determined. Clinical correlation isessential. Performed By: #### L 501.5200, L100.0100, L501.2300, L500.2500 ####[facility] [address] [place], [address] ECRCL 25.57 ml/min Normal [facility] Comment on above: Performed By: #### L 501.5200, L100.0100, L501.2300, L500.2500 ####[facility] [address] [place], [address] EST GFR - AA 23 mL/min Low >60 [facility] Comment on above: Result Comment: Afri can [place] GFR Calc Performed By: #### L 501.5200, L100.0100, L501.2300, L500.2500 ####[facility] [address] [place], [address] GAP 7 Normal 5-15 [facility] Comment on above: Performed By: #### L 501.5200, L100.0100, L501.2300, L500.2500 ####[facility] [address] [place], [address] GFR/1.73 sq M.predicted among non-blacks MDRD (S/P/Bld) [Vol rate/Area] 19 mL/min/{1.73_m2} Low >60 [facility] Comment on above: Result Comment: Non- GFR Calc Performed By: #### L 501.5200, L100.0100, L501.2300, L500.2500 ####[facility] [address] [place], [address] Glucose [Mass/Vol] 121 mg/dL High 74-106 [facility] Comment on above: Result Comment: Fast ing Glucose result from 100 to 125 mg/dLsuggests IMPAIRED HOMEOSTASIS per A.D.A. criteria. Performed By: #### L 501.5200, L100.0100, L501.2300, L500.2500 ####[facility] [address] [place], [address] Potassium [Moles/Vol] 5.2 mmol/L High 3.5-5.1 [facility] Comment on above: Performed By: #### L 501.5200, L100.0100, L501.2300, L500.2500 ####[facility] [address] [place], [address] Sodium [Moles/Vol] 138 mmol/L Normal 136-145 [facility] Comment on above: Performed By: #### L 501.5200, L100.0100, L501.2300, L500.2500 ####[facility] [address] [place], [address] Urea nitrogen [Mass/Vol] 53 mg/dL High 7-18 [facility] Comment on above: Performed By: #### L 501.5200, L100.0100, L501.2300, L500.2500 ####[facility] [address] [place], [address] Blood Gases by [facility] 024 RHIANNON TEST Positive Normal [facility] Comment on above: Performed By: #### L 9000.0800 ####[facility] [address] [place], [address] Base excess Calc (Bld) [Moles/Vol] -2 mmol/L Normal -2 to +2 [facility] Comment on above: Performed By: #### L 9000.0800 ####[facility] [address] [place], [address] Blood Gas Type ART Normal [facility] Comment on above: Performed By: #### L 9000.0800 ####[facility] [address] [place], [address] CO2 [Moles/Vol] 29 mmol/L Normal [facility] Comment on above: Performed By: #### L 9000.0800 ####[facility] [address] [place], [address] FI02 50.0 Normal [facility] Comment on above: Performed By: #### L 9000.0800 ####[facility] [address] [place], [address] HCO3 (Bld) [Moles/Vol] 26.5 mmol/L High 22-[address] [facility] Comment on above: Performed By: #### L 9000.0800 ####[facility] [address] [place], [address] Mode Not entered Normal [facility] Comment on above: Performed By: #### L 9000.0800 ####[facility] [address] [place], [address] O2 Delivery Dev BiPAP Normal [facility] Comment on above: Performed By: #### L 9000.0800 ####[facility] [address] [place], [address] pCO2 74.5 mmHg Invalid Interpretation Code 35-45 [facility] Comment on above: Performed By: #### L 9000.0800 ####[facility] [address] [place], [address] PEEP 18 Normal [facility] Comment on above: Performed By: #### L 9000.0800 ####[facility] [address] [place], [address] pH (Bld) 7.16 [pH] Invalid Interpretation Code 7.35-7.45 [facility] Comment on above: Performed By: #### L 9000.0800 ####[facility] [address] [place], [address] PO2 139 mmHG High 75-100 [facility] Comment on above: Performed By: #### L 9000.0800 ####[facility] [address] [place], [address] Read Back By Yes [facility] Comment on above: Performed By: #### L 9000.0800 ####[facility] [address] [place], [address] metzger [facility] Comment on above: Performed By: #### L 9000.0800 ####[facility] [address] [place], [address] [address] [facility] Comment on above: Performed By: #### L 9000.0800 ####[facility] [address] [place], [address] SITE R Radial [facility] Comment on above: Performed By: #### L 0.0800 ####[facility] [address] [place], [address] SO2 98 Normal 95-99 [facility] Comment on above: Performed By: #### L 0.0800 ####[facility] [address] [place], [address] Time Given 09:09:57 [facility] Comment on above: Performed By: #### L 9000.0800 ####[facility] [address] [place], [address] Vt 500.0 mL [facility] Comment on above: Performed By: #### L 9000.0800 ####[facility] [address] [place], [address] CBC W/Diff, Automatedon 08-2 Absolute Lymph 0.22 X10 3/uL Low 0.83-4.51 [facility] Comment on above: Performed By: #### L 501.5200, L100.0100, L501.2300, L500.2500 ####[facility] [address] [place], [address] Absolute Neut 4.1 X10 3/uL Normal 2.0-7.7 [facility] Comment on above: Performed By: #### L 501.5200, L100.0100, L501.2300, L500.2500 ####[facility] [address] [place], [address] Basophils/100 WBC (Bld) 0.2 % Normal 0-[address] [facility] Comment on above: Performed By: #### L 501.5200, L100.0100, L501.2300, L500.2500 ####[facility] [address] [place], [address] Eosinophils/100 WBC (Bld) 0.0 % Normal 0-5 [facility] Comment on above: Performed By: #### L 501.5200, L100.0100, L501.2300, L500.2500 ####[facility] [address] [place], [address] Erythrocyte distribution width (RBC) [Ratio] 15.4 % High 11.6-14.6 [facility] Comment on above: Performed By: #### L 501.5200, L100.0100, L501.2300, L500.2500 ####[facility] [address] [place], [address] Hematocrit (Bld) [Volume fraction] 38.1 % Normal 37-47 [facility] Comment on above: Performed By: #### L 501.5200, L100.0100, L501.2300, L500.2500 ####[facility] [address] [place], [address] Hemoglobin (Bld) [Mass/Vol] 11.3 g/dL Low 12.0-15.0 [facility] Comment on above: Performed By: #### L 501.5200, L100.0100, L501.2300, L500.2500 ####[facility] [address] [place], [address] IG% 2.200 High 0.0-0.9 [facility] Comment on above: Result Comment: IG% - Immature Granulocytes (promyelocytes, myelocytes andmetamyelocytes) > 1% indicates that a LEFT SHIFT is Present. Performed By: #### L 501.5200, L100.0100, L501.2300, L500.2500 ####[facility] [address] [place], [address] Lymphocytes/100 WBC (Bld) 4.8 % Low 19-41 [facility] Comment on above: Performed By: #### L 501.5200, L100.0100, L501.2300, L500.2500 ####[facility] [address] [place], [address] MCH (RBC) [Entitic mass] 32.1 pg High 27.0-32.0 [facility] Comment on above: Performed By: #### L 501.5200, L100.0100, L501.2300, L500.2500 ####[facility] [address] [place], [address] MCHC (RBC) [Mass/Vol] 29.7 g/dL Low 32-36 [facility] Comment on above: Performed By: #### L 501.5200, L100.0100, L501.2300, L500.2500 ####[facility] [address] [place], [address] MCV (RBC) [Entitic vol] 108.2 fL High 81-99 [facility] Comment on above: Performed By: #### L 501.5200, L100.0100, L501.2300, L500.2500 ####[facility] [address] [place], [address] Monocytes/100 WBC (Bld) 3.7 % Normal 0-10 [facility] Comment on above: Performed By: #### L 501.5200, L100.0100, L501.2300, L500.2500 ####[facility] [address] [place], [address] Neutrophils/100 WBC (Bld) 89.1 % High 47-70 [facility] Comment on above: Performed By: #### L 501.5200, L100.0100, L501.2300, L500.2500 ####[facility] [address] [place], [address] Nucleated RBC (Bld) [#/Vol] 2.4 10*3/uL Normal 0-5 [facility] Comment on above: Performed By: #### L 501.5200, L100.0100, L501.2300, L500.2500 ####[facility] [address] [place], [address] Platelet mean volume (Bld) [Entitic vol] 10.2 fL Normal 6.2-12.0 [facility] Comment on above: Performed By: #### L 501.5200, L100.0100, L501.2300, L500.2500 ####[facility] [address] [place], [address] Platelets (Bld) [#/Vol] 154 10*3/uL Normal 150-450 [facility] Comment on above: Performed By: #### L 501.5200, L100.0100, L501.2300, L500.2500 ####[facility] [address] [place], [address] RBC (Bld) [#/Vol] 3.52 10*6/uL Low 4.2-5.4 [facility] Comment on above: Performed By: #### L 501.5200, L100.0100, L501.2300, L500.2500 ####[facility] [address] [place], [address] RDW SD 59.9 fl High 35.1-43.9 [facility] Comment on above: Performed By: #### L 501.5200, L100.0100, L501.2300, L500.2500 ####[facility] [address] [place], [address] WBC (Bld) [#/Vol] 4.6 10*3/uL Normal 4.4-11.0 [facility] Comment on above: Performed By: #### L 501.5200, L100.0100, L501.2300, L500.2500 ####[facility] [address] [place], [address] Magnesiumon 01-22-2024 Magnesium [Mass/Vol] 2.1 mg/dL Normal 1.6-2.6 [facility] Comment on above: Performed By: #### L 501.5200, L100.0100, L501.2300, L500.2500 ####[facility] [address] [place], [address] Phosphoruson 01-22-2024 Phosphate [Mass/Vol] 5.6 mg/dL High 2.5-4.9 [facility] Comment on above: Performed By: #### L 501.5200, L100.0100, L501.2300, L500.2500 ####[facility] [address] [place], [address] BNP,B-Type NATRIURETIC PEPTI Bhavin 01-21-2024 Natriuretic peptide B (Bld) [Mass/Vol] 830.1 pg/mL High 0-100 [facility] Comment on above: Performed By: #### L 500.4050, L300.3900, L503.6620, L501.5425, L503.6005, L100.0100, L300.4310 ####[facility] [address] [place], [address] Blood Gases by CPSon 024 Base excess Calc (Bld) [Moles/Vol] 0 mmol/L Normal -2 to +2 [facility] Comment on above: Performed By: #### L 9000.0800 ####[facility] [address] [place], [address] Blood Gas Type ART Normal [facility] Comment on above: Performed By: #### L 9000.0800 ####[facility] [address] [place], [address] CO2 [Moles/Vol] 34 mmol/L Normal [facility] Comment on above: Performed By: #### L 9000.0800 ####[facility] [address] [place], [address] FI02 40.0 Normal [facility] Comment on above: Performed By: #### L 9000.0800 ####[facility] [address] [place], [address] HCO3 (Bld) [Moles/Vol] 30.2 mmol/L High 22-[address] [facility] Comment on above: Performed By: #### L 9000.0800 ####[facility] [address] [place], [address] Mode avaps Normal [facility] Comment on above: Performed By: #### L 9000.0800 ####[facility] [address] [place], [address] O2 Delivery Dev Not entered Normal [facility] Comment on above: Performed By: #### L 9000.0800 ####[facility] [address] [place], [address] pCO2 107.0 mmHg Invalid Interpretation Code 35-45 [facility] Comment on above: Performed By: #### L 9000.0800 ####[facility] [address] [place], [address] PEEP 14 Normal [facility] Comment on above: Performed By: #### L 9000.0800 ####[facility] [address] [place], [address] pH (Bld) 7.06 [pH] Invalid Interpretation Code 7.35-7.45 [facility] Comment on above: Performed By: #### L 9000.0800 ####[facility] [address] [place], [address] PIP 28 Normal [facility] Comment on above: Performed By: #### L 9000.0800 ####[facility] [address] [place], [address] PO2 71 mmHG Low 75-100 [facility] Comment on above: Performed By: #### L 9000.0800 ####[facility] [address] [place], [address] Read Back By Yes [facility] Comment on above: Performed By: #### L 9000.0800 ####[facility] [address] [place], [address] Results To ug Normal [facility] Comment on above: Performed By: #### L 9000.0800 ####[facility] [address] [place], [address] [address] 18 Normal [facility] Comment on above: Performed By: #### L 9000.0800 ####[facility] [address] [place], [address] SITE R Brach Normal [facility] Comment on above: Performed By: #### L 9000.0800 ####[facility] [address] [place], [address] SO2 83 Low 95-99 [facility] Comment on above: Performed By: #### L 9000.0800 ####[facility] [address] [place], [address] Time Given 13:17:41 Normal [facility] Comment on above: Performed By: #### L 9000.0800 ####[facility] [address] [place], [address] Vt 500.0 mL Normal [facility] Comment on above: Performed By: #### L 9000.0800 ####[facility] [address] [place], [address] Base excess Calc (Bld) [Moles/Vol] 0 mmol/L Normal -2 to +2 [facility] Comment on above: Performed By: #### L 9000.0800 ####[facility] [address] [place], [address] Blood Gas Type ART Normal [facility] Comment on above: Performed By: #### L 9000.0800 ####[facility] [address] [place], [address] CO2 [Moles/Vol] 34 mmol/L Normal [facility] Comment on above: Performed By: #### L 9000.0800 ####[facility] [address] [place], [address] FI02 15.0 Normal [facility] Comment on above: Performed By: #### L 9000.0800 ####[facility] [address] [place], [address] HCO3 (Bld) [Moles/Vol] 30.6 mmol/L High 22-[address] [facility] Comment on above: Performed By: #### L 9000.0800 ####[facility] [address] [place], [address] Mode Not entered [facility] Comment on above: Performed By: #### L 9000.0800 ####[facility] [address] [place], [address] O2 Delivery Dev NRB [facility] Comment on above: Performed By: #### L 9000.0800 ####[facility] [address] [place], [address] pCO2 106.6 mmHg Invalid Interpretation Code 35-45 [facility] Comment on above: Performed By: #### L 9000.0800 ####[facility] [address] [place], [address] pH (Bld) 7.07 [pH] Invalid Interpretation Code 7.35-7.45 [facility] Comment on above: Performed By: #### L 9000.0800 ####[facility] [address] [place], [address] PO2 82 mmHG Normal 75-100 [facility] Comment on above: Performed By: #### L 9000.0800 ####[facility] [address] [place], [address] Read Back By Yes [facility] Comment on above: Performed By: #### L 9000.0800 ####[facility] [address] [place], [address] Results To ug [facility] Comment on above: Performed By: #### L 9000.0800 ####[facility] [address] [place], [address] SITE L Brach [facility] Comment on above: Performed By: #### L 9000.0800 ####[facility] [address] [place], [address] SO2 89 Low 95-99 [facility] Comment on above: Performed By: #### L 9000.0800 ####[facility] [address] [place], [address] Time Given 11:33:30 Normal [facility] Comment on above: Performed By: #### L 0.0800 ####[facility] [address] [place], [address] CBC W/Diff, Automatedon 12-30 Absolute Lymph 0.69 X10 3/uL Low 0.83-4.51 [facility] Comment on above: Performed By: #### L 500.4050, L300.3900, L503.6620, L501.5425, L503.6005, L100.0100, L300.4310 ####[facility] [address] [place], [address] Absolute Neut 4.2 X10 3/uL Normal 2.0-7.7 [facility] Comment on above: Performed By: #### L 500.4050, L300.3900, L503.6620, L501.5425, L503.6005, L100.0100, L300.4310 ####[facility] [address] [place], [address] Basophils/100 WBC (Bld) 0.9 % Normal 0-[address] [facility] Comment on above: Performed By: #### L 500.4050, L300.3900, L503.6620, L501.5425, L503.6005, L100.0100, L300.4310 ####[facility] [address] [place], [address] Eosinophils/100 WBC (Bld) 0.0 % Normal 0-5 [facility] Comment on above: Performed By: #### L 500.4050, L300.3900, L503.6620, L501.5425, L503.6005, L100.0100, L300.4310 ####[facility] [address] [place], [address] Erythrocyte distribution width (RBC) [Ratio] 15.8 % High 11.6-14.6 [facility] Comment on above: Performed By: #### L 500.4050, L300.3900, L503.6620, L501.5425, L503.6005, L100.0100, L300.4310 ####[facility] [address] [place], [address] Hematocrit (Bld) [Volume fraction] 40.0 % Normal 37-47 [facility] Comment on above: Performed By: #### L 500.4050, L300.3900, L503.6620, L501.5425, L503.6005, L100.0100, L300.4310 ####[facility] [address] [place], [address] Hemoglobin (Bld) [Mass/Vol] 11.7 g/dL Low 12.0-15.0 [facility] Comment on above: Performed By: #### L 500.4050, L300.3900, L503.6620, L501.5425, L503.6005, L100.0100, L300.4310 ####[facility] [address] [place], [address] IG% 2.700 High 0.0-0.9 [facility] Comment on above: Result Comment: IG% - Immature Granulocytes (promyelocytes, myelocytes andmetamyelocytes) > 1% indicates that a LEFT SHIFT is Present. Performed By: #### L 500.4050, L300.3900, L503.6620, L501.5425, L503.6005, L100.0100, L300.4310 ####[facility] [address] [place], [address] Lymphocytes/100 WBC (Bld) 12.3 % Low 19-41 [facility] Comment on above: Performed By: #### L 500.4050, L300.3900, L503.6620, L501.5425, L503.6005, L100.0100, L300.4310 ####[facility] [address] [place], [address] MCH (RBC) [Entitic mass] 31.9 pg Normal 27.0-32.0 [facility] Comment on above: Performed By: #### L 500.4050, L300.3900, L503.6620, L501.5425, L503.6005, L100.0100, L300.4310 ####[facility] [address] [place], [address] MCHC (RBC) [Mass/Vol] 29.3 g/dL Low 32-36 [facility] Comment on above: Performed By: #### L 500.4050, L300.3900, L503.6620, L501.5425, L503.6005, L100.0100, L300.4310 ####[facility] [address] [place], [address] MCV (RBC) [Entitic vol] 109.0 fL High 81-[address] [facility] Comment on above: Performed By: #### L 500.4050, L300.3900, L503.6620, L501.5425, L503.6005, L100.0100, L300.4310 ####[facility] [address] [place], [address] Monocytes/100 WBC (Bld) 8.7 % Normal 0-[address] [facility] Comment on above: Performed By: #### L 500.4050, L300.3900, L503.6620, L501.5425, L503.6005, L100.0100, L300.4310 ####[facility] [address] [place], [address] Neutrophils/100 WBC (Bld) 75.4 % High 47-70 [facility] Comment on above: Performed By: #### L 500.4050, L300.3900, L503.6620, L501.5425, L503.6005, L100.0100, L300.4310 ####[facility] [address] [place], [address] Nucleated RBC (Bld) [#/Vol] 2.0 10*3/uL Normal 0-5 [facility] Comment on above: Performed By: #### L 500.4050, L300.3900, L503.6620, L501.5425, L503.6005, L100.0100, L300.4310 ####[facility] [address] [place], [address] Platelet mean volume (Bld) [Entitic vol] 10.5 fL Normal 6.2-12.0 [facility] Comment on above: Performed By: #### L 500.4050, L300.3900, L503.6620, L501.5425, L503.6005, L100.0100, L300.4310 ####[facility] [address] [place], [address] Platelets (Bld) [#/Vol] 173 10*3/uL Normal 150-450 [facility] Comment on above: Performed By: #### L 500.4050, L300.3900, L503.6620, L501.5425, L503.6005, L100.0100, L300.4310 ####[facility] [address] [place], [address] RBC (Bld) [#/Vol] 3.67 10*6/uL Low 4.2-5.4 [facility] Comment on above: Performed By: #### L 500.4050, L300.3900, L503.6620, L501.5425, L503.6005, L100.0100, L300.4310 ####[facility] [address] [place], [address] RDW SD 62.0 fl High 35.1-43.9 [facility] Comment on above: Performed By: #### L 500.4050, L300.3900, L503.6620, L501.5425, L503.6005, L100.0100, L300.4310 ####[facility] [address] [place], [address] WBC (Bld) [#/Vol] 5.6 10*3/uL Normal 4.4-11.0 [facility] Comment on above: Performed By: #### L 500.4050, L300.3900, L503.6620, L501.5425, L503.6005, L100.0100, L300.4310 ####[facility] [address] [place], [address] Chest 1 View (Portable)on Chest 1 View (Portable) Normal [facility] Comprehensive Metabolic Prof ilon 01-21-2024 Albumin [Mass/Vol] 2.9 g/dL Low 3.2-5.0 [facility] Comment on above: Order Comment: 1Y Performed By: #### L 500.4050, L300.3900, L503.6620, L501.5425, L503.6005, L100.0100, L300.4310 ####[facility] [address] [place], [address] Albumin/Globulin [Mass ratio] 0.7 {ratio} Low 0.9-2.4 [facility] Comment on above: Order Comment: 1Y Performed By: #### L 500.4050, L300.3900, L503.6620, L501.5425, L503.6005, L100.0100, L300.4310 ####[facility] [address] [place], [address] ALK P 55 U/L Normal 45-117 [facility] Comment on above: Order Comment: 1Y Performed By: #### L 500.4050, L300.3900, L503.6620, L501.5425, L503.6005, L100.0100, L300.4310 ####[facility] [address] [place], [address] ALT [Catalytic activity/Vol] 21 U/L Normal 13-56 [facility] Comment on above: Order Comment: 1Y Performed By: #### L 500.4050, L300.3900, L503.6620, L501.5425, L503.6005, L100.0100, L300.4310 ####[facility] [address] [place], [address] AST [Catalytic activity/Vol] 24 U/L Normal 15-37 [facility] Comment on above: Order Comment: 1Y Performed By: #### L 500.4050, L300.3900, L503.6620, L501.5425, L503.6005, L100.0100, L300.4310 ####[facility] [address] [place], [address] Bilirubin [Mass/Vol] 0.30 mg/dL Normal 0.20-1.00 [facility] Comment on above: Order Comment: 1Y Result Comment: For patients on eltrombopag therapy, use of Dimension [place] TBIL is not recommended. Performed By: #### L 500.4050, L300.3900, L503.6620, L501.5425, L503.6005, L100.0100, L300.4310 ####[facility] [address] [place], [address] BUN/CRE 18.5 RATIO Normal 10-20 [facility] Comment on above: Order Comment: 1Y Performed By: #### L 500.4050, L300.3900, L503.6620, L501.5425, L503.6005, L100.0100, L300.4310 ####[facility] [address] [place], [address] CA,Total 8.0 mg/dL Low 8.5-10.1 [facility] Comment on above: Order Comment: 1Y Performed By: #### L 500.4050, L300.3900, L503.6620, L501.5425, L503.6005, L100.0100, L300.4310 ####[facility] [address] [place], [address] Chloride [Moles/Vol] 99 mmol/L Normal 98-107 [facility] Comment on above: Order Comment: 1Y Performed By: #### L 500.4050, L300.3900, L503.6620, L501.5425, L503.6005, L100.0100, L300.4310 ####[facility] [address] [place], [address] CO2 [Moles/Vol] 27.0 mmol/L Normal 21.0-32.0 [facility] Comment on above: Order Comment: 1Y Performed By: #### L 500.4050, L300.3900, L503.6620, L501.5425, L503.6005, L100.0100, L300.4310 ####[facility] [address] [place], [address] Creatinine [Mass/Vol] 2.65 mg/dL High 0.55-1.02 [facility] Comment on above: Order Comment: 1Y Result Comment: The validity of the calculated GFR GFRAA in patients over70 years has not been determined. Clinical correlation isessential. Performed By: #### L 500.4050, L300.3900, L503.6620, L501.5425, L503.6005, L100.0100, L300.4310 ####[facility] [address] [place], [address] ECRCL 25.41 ml/min Normal [facility] Comment on above: Order Comment: 1Y Performed By: #### L 500.4050, L300.3900, L503.6620, L501.5425, L503.6005, L100.0100, L300.4310 ####[facility] [address] [place], [address] EST GFR - AA 23 mL/min Low >60 [facility] Comment on above: Order Comment: 1Y Result Comment: Afri can [place] GFR Calc Performed By: #### L 500.4050, L300.3900, L503.6620, L501.5425, L503.6005, L100.0100, L300.4310 ####[facility] [address] [place], [address] GAP 8 Normal 5-15 [facility] Comment on above: Order Comment: 1Y Performed By: #### L 500.4050, L300.3900, L503.6620, L501.5425, L503.6005, L100.0100, L300.4310 ####[facility] [address] [place], [address] GFR/1.73 sq M.predicted among non-blacks MDRD (S/P/Bld) [Vol rate/Area] 19 mL/min/{1.73_m2} Low >60 [facility] Comment on above: Order Comment: 1Y Result Comment: Non- GFR Calc Performed By: #### L 500.4050, L300.3900, L503.6620, L501.5425, L503.6005, L100.0100, L300.4310 ####[facility] [address] [place], [address] Globulin (S) [Mass/Vol] 4.1 g/dL Normal 2.2-4.2 [facility] Comment on above: Order Comment: 1Y Performed By: #### L 500.4050, L300.3900, L503.6620, L501.5425, L503.6005, L100.0100, L300.4310 ####[facility] [address] [place], [address] Glucose [Mass/Vol] 126 mg/dL High 74-106 [facility] Comment on above: Order Comment: 1Y Result Comment: Fast ing Glucose result greater than or equal to 126 mg/dLsuggests DIABETES MELLITUS per A.D.A. criteria. Performed By: #### L 500.4050, L300.3900, L503.6620, L501.5425, L503.6005, L100.0100, L300.4310 ####[facility] [address] [place], [address] Potassium [Moles/Vol] 4.8 mmol/L Normal 3.5-5.1 [facility] Comment on above: Order Comment: 1Y Performed By: #### L 500.4050, L300.3900, L503.6620, L501.5425, L503.6005, L100.0100, L300.4310 ####[facility] [address] [place], [address] Sodium [Moles/Vol] 134 mmol/L Low 136-145 [facility] Comment on above: Order Comment: 1Y Performed By: #### L 500.4050, L300.3900, L503.6620, L501.5425, L503.6005, L100.0100, L300.4310 ####[facility] [address] [place], [address] T PROT 7.0 g/dL Normal 6.4-8.2 [facility] Comment on above: Order Comment: 1Y Performed By: #### L 500.4050, L300.3900, L503.6620, L501.5425, L503.6005, L100.0100, L300.4310 ####[facility] [address] [place], [address] Urea nitrogen [Mass/Vol] 49 mg/dL High 7-18 [facility] Comment on above: Order Comment: 1Y Performed By: #### L 500.4050, L300.3900, L503.6620, L501.5425, L503.6005, L100.0100, L300.4310 ####[facility] [address] [place], [address] Emergency Department Summary on 01-21-2024 Emergency Department Summary Normal [facility] H AND P Exam - Hospitaliston 01-21-2024 H&P Exam - Hospitalist Normal [facility] L501.4020on 01-21-2024 TROPONIN-I HS 315 pg/mL Invalid Interpretation Code 3.0-54.0 [facility] Comment on above: Result Comment: Crit ical Result(s) Called at: 14:31:43 01/21/2024 by: TANIA. Results read back by Michaelle. Please Note: New Test Units and Gender Specific Reference Ranges. For more information see Policy Stat Procedure [place] High Sensitivity Troponin (TNIH) and attachments. Performed By: #### L 501.4020 ####[facility] [address] [place], [address] L501.5425on 01-21-2024 TROPONIN-I HS 277 pg/mL Invalid Interpretation Code 3.0-54.0 [facility] Comment on above: Order Comment: 1Y Result Comment: Crit ical Result(s) Called at: 12:30:09 01/21/2024 by: TANIA. Results read back by Pepper Please Note: New Test Units and Gender Specific Reference Ranges. For more information see Policy Stat Procedure [place] High Sensitivity Troponin (TNIH) and attachments. Performed By: #### L 500.4050, L300.3900, L503.6620, L501.5425, L503.6005, L100.0100, L300.4310 ####[facility] [address] [place], [address] Lactic Acidon 01-21-2024 Lactate [Moles/Vol] 0.5 mmol/L Normal 0.4-1.9 [facility] Comment on above: Order Comment: Y Performed By: #### L 500.4050, L300.3900, L503.6620, L501.5425, L503.6005, L100.0100, L300.4310 ####[facility] [address] [place], [address] M100.678on 01-21-2024 M100.678 Pending SARS-CoV-2 (COVID 19) Negative INFLUENZA A Negative INFLUENZA B Negative RSV PCR Negative Normal [facility] Comment on above: Performed By: #### M 100.678, L400.0001 ####[facility] [address] [place], [address] Partial Thromboplast Timeon 01-21-2024 aPTT Coag (Bld) [Time] 35.9 s Normal 24.1-36.2 [facility] Comment on above: Performed By: #### L 500.4050, L300.3900, L503.6620, L501.5425, L503.6005, L100.0100, L300.4310 ####[facility] [address] [place], [address] Prothrombin Time w/INRon INR Coag (PPP) [Relative time] 1.4 {INR} Normal [facility] Comment on above: Performed By: #### L 500.4050, L300.3900, L503.6620, L501.5425, L503.6005, L100.0100, L300.4310 ####[facility] [address] [place], [address] PT Coag (PPP) [Time] 17.1 s High 11.7-14.9 [facility] Comment on above: Performed By: #### L 500.4050, L300.3900, L503.6620, L501.5425, L503.6005, L100.0100, L300.4310 ####[facility] [address] [place], [address] RESPIRATORY PANEL MOLECULARo n 01-21-2024 RP PANEL Normal [facility] Comment on above: Performed By: #### M 100.638 ####[facility] [address] [place], [address] Urinalysis, Completeon 01-20 WBC 0-5 SEEN Normal 0-5 [facility] Comment on above: Order Comment: BOZENA TER SPECIMEN Performed By: #### M 100.678, L400.0001 ####[facility] [address] [place], [address] BACTERIA 0 SEEN Normal None Seen [facility] Comment on above: Order Comment: BOZENA TER SPECIMEN Performed By: #### M 100.678, L400.0001 ####[facility] [address] [place], [address] EPI,SQUAMOUS 0 SEEN Normal 5-10 [facility] Comment on above: Order Comment: BOZENA TER SPECIMEN Performed By: #### M 100.678, L400.0001 ####[facility] [address] [place], [address] Mucus Ql (Urine sed) 0 SEEN Normal [facility] Comment on above: Order Comment: BOZENA TER SPECIMEN Performed By: #### M 100.678, L400.0001 ####[facility] [address] [place], [place], [address] RBC 0 SEEN Normal 0-5 [facility] Comment on above: Order Comment: BOZENA BOYER SPECIMEN Performed By: #### M 100.678, L400.0001 ####[facility] [address] [place], [place], [address] Absolute lymphocyte countOrd ered By: Zee Jose on 03-25-2023 Lymphocytes Auto (Unsp spec) [#/Vol] 0.75 10*3/uL 0.83-4.51 [facility] Basophil percentageOrdered B y: Zee Jose on 03-25-2023 Basophils/100 WBC (Bld) 0.7 % 0-[address] [facility] Bilirubin [Mass/Vol] 0.20 mg/dL 0.20-1.00 [facility] Comment on above: For patients on eltr ombopag therapy, use of Dimension [place] TBIL is not recommended. Chloride [Moles/Vol] 106 mmol/L 98-107 [facility] Eosinophils/100 WBC (Bld) 1.1 % 0-5 [facility] Glucose [Mass/Vol] 86 mg/dL 74-106 [facility] Neutrophils (Bld) [#/Vol] 1.6 10*3/uL 2.0-7.7 [facility] Neutrophils/100 WBC (Bld) 58.6 % 47-70 [facility] Potassium [Moles/Vol] 4.8 mmol/L 3.5-5.1 [facility] Comment on above: Slight Hemolysis, Re sult may be falsely increased. Protein [Mass/Vol] 7.4 g/dL 6.4-8.2 [facility] Sodium [Moles/Vol] 140 mmol/L 136-145 [facility] WBC (Bld) [#/Vol] 2.8 10*3/uL 4.4-11.0 [facility] Blood erythrocytes count (nu mber/volume)Ordered By: Zee Jose on 03-25-2023 RBC (Bld) [#/Vol] 3.63 10*6/uL 4.2-5.4 [facility] Blood hemoglobin measurement (mass/volume)Ordered By: Zee Jose on 03-25-2023 Hemoglobin (Bld) [Mass/Vol] 11.8 g/dL 12.0-15.0 [facility] Blood lymphocytes/100 leukoc ytesOrdered By: Zee Jose on 03-25-2023 Lymphocytes/100 WBC (Bld) 26.8 % 19-41 [facility] Blood monocytes/100 leukocyt esOrdered By: Zee Jose on 03-25-2023 Monocytes/100 WBC (Bld) 12.1 % 0-[address] [facility] Blood platelet mean volumeOr dered By: Zee Jose on 03-25-2023 Platelet mean volume (Bld) [Entitic vol] 10.9 fL 6.2-12.0 [facility] Determination of erythrocyte mean corpuscular volume (MCV)Ordered By: Zee Jose on 03-25-2023 MCV (RBC) [Entitic vol] 107.4 fL 81-[address] [facility] Hematocrit Auto (Bld) [Volum e fraction]Ordered By: Zee Jose on 03-25-2023 Hematocrit (Bld) [Volume fraction] 39.0 % 37-47 [facility] Laboratory - Chemistry and C hemistry - challengeOrdered By: Zee Jose on 03-25-2023 ALP [Catalytic activity/Vol] 48 U/L 45-117 [facility] ALT [Catalytic activity/Vol] 19 U/L 13-56 [facility] CO2 [Moles/Vol] 28.0 mmol/L 21.0-32.0 [facility] Free T4 [Mass/Vol] 0.69 ng/dL 0.76-1.46 [facility] Globulin (S) [Mass/Vol] 4.1 g/dL 2.2-4.2 [facility] Urea nitrogen/Creatinine [Mass ratio] 16.9 mg/mg 10-20 [facility] Laboratory - Hematology and Cell countsOrdered By: Zee Jose on 03-25-2023 Erythrocyte distribution width (RBC) [Entitic vol] 54.5 fL 35.1-43.9 [facility] Erythrocyte distribution width (RBC) [Ratio] 13.7 % 11.6-14.6 [facility] Immature granulocytes/100 WBC (Bld) 0.700 % 0.0-0.9 [facility] Comment on above: IG% - Immature Granu locytes (promyelocytes, myelocytes and metamyelocytes) > 1% indicates that a LEFT SHIFT is Present. MCH (RBC) [Entitic mass] 32.5 pg 27.0-32.0 [facility] Nucleated RBC/100 WBC (Bld) [Ratio] 0 % 0-5 [facility] MCHC Auto (RBC) [Mass/Vol]Or dered By: Zee Jose on 03-25-2023 MCHC (RBC) [Mass/Vol] 30.3 g/dL 32-36 [facility] No Panel InformationOrdered By: Zee Jose on 03-25-2023 Estimated GFR (MDRD) Amer 37 mL/min >60 [facility] Comment on above: GFR Calc Estimated GFR (MDRD) Non-Af Amer 31 mL/min >60 [facility] Comment on above: Non- GFR Calc Thyroid Stimulating Hormone (TSH) 3.38 uIU/mL 0.358-3.74 [facility] Platelets bldOrdered By: Kim Jose on 03-25-2023 Platelets (Bld) [#/Vol] 145 10*3/uL 150-450 [facility] Serum or plasma albumin reese urement (mass/volume)Ordered By: Zee Jose on 03-25-2023 Albumin [Mass/Vol] 3.3 g/dL 3.2-5.0 [facility] Serum or plasma albumin/glob ulin mass ratioOrdered By: Zee Jose on 03-25-2023 Albumin/Globulin [Mass ratio] 0.8 {ratio} 0.9-2.4 [facility] Serum or plasma calcium reese urement (mass/volume)Ordered By: Zee Jose on 03-25-2023 Calcium [Mass/Vol] 8.9 mg/dL 8.5-10.1 [facility] Serum or plasma cortisol cathy surement (mass/volume)Ordered By: Zee Jose on 03-25-2023 Cortisol [Mass/Vol] 10.40 ug/dL 3.44-22.45 [facility] Comment on above: Adult (AM) 5.27 - 22 .45 ug/dL Adult (PM) 3.44 - 16.76 ug/dLPlease note revised CORTISOL reference range effective 2019. Serum or plasma creatinine m easurement (mass/volume)Ordered By: Zee Jose on 03-25-2023 Creatinine [Mass/Vol] 1.72 mg/dL 0.55-1.02 [facility] Comment on above: The validity of the calculated GFR & GFRAA in patients over 70 years has not been determined. Clinical correlation is essential. Serum or plasma urea nitroge n measurement (mass/volume)Ordered By: Zee Jose on 03-25-2023 Urea nitrogen [Mass/Vol] 29 mg/dL 12-15 [facility] Thin prep Papanicolaou smear with manual screeningOrdered By: Zee Jose on 03-25-2023 Thin prep Papanicolaou smear with manual screening 23 U/L [facility] Comment on above: Slight Hemolysis, Re sult may be falsely increased. Thin prep Papanicolaou smear with manual screening 6 10-12 [facility] Whole blood hemoglobin A1c/t otal hemoglobin ratio (mass fraction)Ordered By: Zee Jose on 03-25-2023 HbA1c (Bld) [Mass fraction] 4.9 % 3.8-5.6 [facility] Comment on above: Normal < 5.7 % Predi abetic 5.7 - 6.4 % Diabetic >or= 6.5 % Please note range changes. Assessment of wrist artery p atency prior to arterial punctureOrdered By: Dr. Whipple on 08-24-2022 Arterial patency Wrist artery --pre arterial puncture Positive [facility] Base excessOrdered By: Dr. Ronan gaspar on 08-24-2022 Base excess Calc (BldV) [Moles/Vol] 2 mmol/L -2-2 [facility] Basophil percentageOrdered B y: Dr. Whipple on 08-24-2022 Basophil percentage 31.9 mmol/L [facility] Basophils/100 WBC (Bld) 72 % 95-[address] [facility] CO2 (BldA) [Partial pressure ]Ordered By: Dr. Whipple on 08-24-2022 CO2 (Bld) [Partial pressure] 106.4 mm[Hg] 35-45 [facility] Influenza virus A and B and SARS-CoV-2 (COVID-19) Ag panel - Upper respiratory specimOrdered By: Dr. Wihpple on 08-24-2022 SARS-CoV-2 (COVID-19) RNA NICOLE+probe Ql (Resp) [facility] No Panel InformationOrdered By: Dr. Whipple on 08-24-2022 Bld Gas Crit Called To/Read Back By Yes [facility] Blood Gas Liter Flow 10.0 /min [facility] Blood Gas Sample Site R Radial [facility] Blood Gas Specimen Type ART [facility] Blood Gas Total CO2 35 mmol/L [facility] Oxygen Delivery Device Cannula [facility] Oxygen (BldA) [Partial press ure]Ordered By: Dr. Whipple on 08-24-2022 Oxygen (Bld) [Partial pressure] 55 mmHG 75-100 [facility] pH measurementOrdered By: Dr Saravanan Whipple on 08-24-2022 pH (Unsp spec) 7.09 [pH] 7.35-7.45 [facility] Absolute lymphocyte counton 12-04-2021 Lymphocytes Auto (Unsp spec) [#/Vol] 0.42 10*3/uL 0.83-4.51 [facility] Work Phone: Basophil percentageon 2021 Basophils/100 WBC (Bld) 0.3 % 0-1 [facility] Work Phone: Chloride [Moles/Vol] 105 mmol/L 98-107 [facility] Work Phone: Eosinophils/100 WBC (Bld) 0.0 % 0-5 [facility] Work Phone: Glucose [Mass/Vol] 84 mg/dL 74-106 [facility] Work Phone: Neutrophils (Bld) [#/Vol] 3.1 10*3/uL 2.0-7.7 [facility] Work Phone: Neutrophils/100 WBC (Bld) 81.0 % 47-70 [facility] Work Phone: Potassium [Moles/Vol] 3.6 mmol/L 3.5-5.1 [facility] Work Phone: Comment on above: Slight Hemolysis, Re sult may be falsely increased. Sodium [Moles/Vol] 140 mmol/L 136-145 [facility] Work Phone: WBC (Bld) [#/Vol] 3.8 10*3/uL 4.4-11.0 [facility] Work Phone: Blood erythrocytes count (nu mber/volume)on 12-04-2021 RBC (Bld) [#/Vol] 3.48 10*6/uL 4.2-5.4 [facility] Work Phone: Blood hemoglobin measurement (mass/volume)on 12-04-2021 Hemoglobin (Bld) [Mass/Vol] 11.0 g/dL 12.0-15.0 [facility] Work Phone: Blood lymphocytes/100 leukoc yteson 12-04-2021 Lymphocytes/100 WBC (Bld) 10.9 % 19-41 [facility] Work Phone: Blood manual differential co mment interpretation (narrative result)on 12-04-2021 Manual differential comment Alvaro (Bld) [Interp] SCANNED [facility] Work Phone: [phone] Blood monocytes/100 leukocyt eson 12-04-2021 Monocytes/100 WBC (Bld) 7.0 % 0-[address] [facility] Work Phone: Blood platelet mean volumeon 12-04-2021 Platelet mean volume (Bld) [Entitic vol] 10.2 fL 6.2-12.0 [facility] Work Phone: Determination of erythrocyte mean corpuscular volume (MCV)on 12-04-2021 MCV (RBC) [Entitic vol] 98.9 fL 81-[address] [facility] Work Phone: Hematocrit Auto (Bld) [Volum e fraction]on 12-04-2021 Hematocrit (Bld) [Volume fraction] 34.4 % 37-47 [facility] Work Phone: Laboratory - Chemistry and C hemistry - challengeon 12-04-2021 CO2 [Moles/Vol] 31.0 mmol/L 21.0-32.0 [facility] Work Phone: Urea nitrogen/Creatinine [Mass ratio] 21.5 mg/mg 10-20 [facility] Work Phone: Laboratory - Hematology and Cell countson 12-04-2021 Erythrocyte distribution width (RBC) [Entitic vol] 47.8 fL 35.1-43.9 [facility] Work Phone: Erythrocyte distribution width (RBC) [Ratio] 13.2 % 11.6-14.6 [facility] Work Phone: Immature granulocytes/100 WBC (Bld) 0.800 % 0.0-0.9 [facility] Work Phone: Comment on above: IG% - Immature Granu locytes (promyelocytes, myelocytes and metamyelocytes) > 1% indicates that a LEFT SHIFT is Present. MCH (RBC) [Entitic mass] 31.6 pg 27.0-32.0 [facility] Work Phone: Nucleated RBC/100 WBC (Bld) [Ratio] 0 % 0-5 [facility] Work Phone: MCHC Auto (RBC) [Mass/Vol]on 12-04-2021 MCHC (RBC) [Mass/Vol] 32.0 g/dL 32-36 [facility] Work Phone: No Panel Informationon 12-04 Estimated Creatinine Clearance Calc 43.02 ml/min [facility] Work Phone: Estimated GFR (MDRD) Amer 56 mL/min >60 [facility] Work Phone: Comment on above: GFR Calc Estimated GFR (MDRD) Non-Af Amer 47 mL/min >60 [facility] Work Phone: Comment on above: Non- GFR Calc Platelets bldon 12-04-2021 Platelets (Bld) [#/Vol] 108 10*3/uL 150-450 [facility] Work Phone: Review by pathologiston Pathologist review Alvaro (Unsp spec) [Interp] September toyin [facility] Work Phone: Serum or plasma calcium reese urement (mass/volume)on 12-04-2021 Calcium [Mass/Vol] 8.3 mg/dL 8.5-10.[address] [facility] Work Phone: Serum or plasma creatinine m easurement (mass/volume)on 12-04-2021 Creatinine [Mass/Vol] 1.21 mg/dL 0.55-1.02 [facility] Work Phone: Comment on above: The validity of the calculated GFR & GFRAA in patients over 70 years has not been determined. Clinical correlation is essential. Serum or plasma urea nitroge n measurement (mass/volume)on 12-04-2021 Urea nitrogen [Mass/Vol] 26 mg/dL 7-18 [facility] Work Phone: Thin prep Papanicolaou smear with manual screeningon 12-04-2021 Thin prep Papanicolaou smear with manual screening 4 5-15 [facility] Work Phone: Assessment of wrist artery p atency prior to arterial punctureon 12-02-2021 Arterial patency Wrist artery --pre arterial puncture Positive [facility] Work Phone: Base excesson 12-02-2021 Base excess Calc (BldV) [Moles/Vol] -2 mmol/L -2-2 [facility] Work Phone: Basophil percentageon 2021 Basophil percentage 23.2 mmol/L 22-26 [facility] Work Phone: Basophils/100 WBC (Bld) 87 % 95-[address] [facility] Work Phone: CO2 (BldA) [Partial pressure ]on 12-02-2021 CO2 (Bld) [Partial pressure] 41.8 mm[Hg] 35-45 [facility] Work Phone: Glucose Glucometer (BldC) [M ass/Vol]on 12-02-2021 Glucose [Mass/Vol] 99 mg/dL 74-106 [facility] Work Phone: Comment on above: MANAGEMENT OF PATIEN T CARE PER NURSING PROTOCOL No Panel Informationon 12-02 Bedside Blood Gas PEEP 5 [facility] Work Phone: Bedside Blood Gas Pressure Support 5 [facility] Work Phone: Blood Gas Oxygen Percent 25 [facility] Work Phone: Blood Gas Sample Site L Radial [facility] Work Phone: Blood Gas Specimen Type ART [facility] Work Phone: Blood Gas Total CO2 25 mmol/L [facility] Work Phone: Blood Gas Vent Mode CPAP/PS [facility] Work Phone: Oxygen Delivery Device Adult Vent [facility] Work Phone: Oxygen (BldA) [Partial press ure]on 12-02-2021 Oxygen (Bld) [Partial pressure] 55 mmHG 75-100 [facility] Work Phone: pH measurementon 12-02-2021 pH (Unsp spec) 7.35 [pH] 7.35-7.45 [facility] Work Phone: Basophil percentageon 2021 Bilirubin [Mass/Vol] 0.10 mg/dL 0.20-1.00 [facility] Work Phone: Comment on above: For patients on eltr ombopag therapy, use of Dimension [place] TBIL is not recommended. Protein [Mass/Vol] 7.3 g/dL 6.4-8.2 [facility] Work Phone: Triglyceride [Mass/Vol] 79 mg/dL <199 [facility] Work Phone: Comment on above: The drugs N-Acetylcy steine and Metamizole may falsely depress this assay.Serum Triglycerides Reference Interval Normal <150 mg/dL Borderline high 150 - 199 mg/dL High 200 - 499 mg/dL Very High > or = 500 mg/dL Laboratory - Chemistry and C hemistry - challengeon 12-01-2021 ALP [Catalytic activity/Vol] 53 U/L 45-117 [facility] Work Phone: ALT [Catalytic activity/Vol] 18 U/L 13-56 [facility] Work Phone: CK [Catalytic activity/Vol] 208 U/L 26-192 [facility] Work Phone: Globulin (S) [Mass/Vol] 4.0 g/dL 2.2-4.[address] [facility] Work Phone: Natriuretic peptide B (Bld) [Mass/Vol] 266.5 pg/mL 0-100 [facility] Work Phone: Laboratory - Microbiology an d Antimicrobial susceptibilityon 12-01-2021 SARS-CoV-2 (COVID-19) RNA NICOLE+probe Ql (Unsp spec) Detected Not Detect [facility] Work Phone: Comment on above: RESULTS CALLED TO KENIA CARR 12/01/21 0438 Roman Rivera.REPORT READ BACK BY SAME.Normal Reference Range: Not DetectedMethod:(RT-PCR) real-time reverse transcriptase PCRLuminex MARCELO Instrument*The Food and Drug Administration (FDA) has issued an Emergency Use Authorization (EAU) for the MARCELO SARS-CoV-2 Assay for the rapid detection of [...] Informationon 12-01 Blood Gas Respiration Rate 14 [facility] Work Phone: Blood Gas Tidal Volume [address] [facility] [facility] Work Phone: Bld Gas Crit Called To/Read Back By Yes [facility] Work Phone: Blood Gas Clinical Comments See comment [facility] Work Phone: Comment on above: AVAPS VT450 RR16 E8 MIN16 MAX26 45% Blood Gas Notified Whom Nicole Villa [facility] Work Phone: Serum or plasma albumin reese urement (mass/volume)on 12-01-2021 Albumin [Mass/Vol] 3.3 g/dL 3.2-5.0 [facility] Work Phone: Serum or plasma albumin/glob ulin mass ratioon 12-01-2021 Albumin/Globulin [Mass ratio] 0.8 {ratio} 0.9-2.4 [facility] Work Phone: Serum procalcitonin measurem enton 12-01-2021 Procalcitonin [Mass/Vol] 0.21 ng/mL 0.00-0.09 [facility] Work Phone: Comment on above: A procalcitonin (PCT ) [...] smear with manual screening 23 U/L 15-37 [facility] Work Phone: Absolute lymphocyte counton 11-30-2021 Lymphocytes Auto (Unsp spec) [#/Vol] 0.51 10*3/uL 0.83-4.51 [facility] Work Phone: Assessment of wrist artery p atency prior to arterial punctureon 11-30-2021 Arterial patency Wrist artery --pre arterial puncture Positive [facility] Work Phone: Base excesson 11-30-2021 Base excess Calc (BldV) [Moles/Vol] 0 mmol/L -2-2 [facility] Work Phone: Basophil percentageon 2021 Basophil percentage 29.4 mmol/L 22-26 [facility] Work Phone: [phone] Basophils/100 WBC (Bld) 89 % 95-[address] [facility] Work Phone: Basophil percentage 0-5 SEEN /hpf 0-[address] [facility] Work Phone: Basophils/100 WBC (Bld) 0.3 % 0-[address] [facility] Work Phone: Bilirubin [Mass/Vol] 0.20 mg/dL 0.20-1.00 [facility] Work Phone: Comment on above: For patients on eltr ombopag therapy, use of Dimension [place] TBIL is not recommended. Chloride [Moles/Vol] 102 mmol/L 98-107 [facility] Work Phone: Eosinophils/100 WBC (Bld) 0.0 % 0-5 [facility] Work Phone: [phone] Glucose [Mass/Vol] 112 mg/dL 74-106 [facility] Work Phone: Comment on above: Fasting Glucose resu lt from 100 to 125 mg/dL suggests IMPAIRED HOMEOSTASIS per A.D.A. criteria. Lactate [Moles/Vol] 0.8 mmol/L 0.4-2.0 [facility] Work Phone: Neutrophils (Bld) [#/Vol] 2.8 10*3/uL 2.0-7.7 [facility] Work Phone: Neutrophils/100 WBC (Bld) 73.7 % 47-70 [facility] Work Phone: Potassium [Moles/Vol] 4.7 mmol/L 3.5-5.1 [facility] Work Phone: Protein [Mass/Vol] 7.6 g/dL 6.4-8.2 [facility] Work Phone: Sodium [Moles/Vol] 135 mmol/L 136-145 [facility] Work Phone: WBC (Bld) [#/Vol] 3.8 10*3/uL 4.4-11.0 [facility] Work Phone: Bilirubin Test strip Ql (U)o n 11-30-2021 Bilirubin Ql (U) 1 mg/dL Negative [facility] Work Phone: Comment on above: NCOLOR OF URINE MAY AFFECT DIPSTICK RESULTS. Blood erythrocytes count (nu mber/volume)on 11-30-2021 RBC (Bld) [#/Vol] 3.89 10*6/uL 4.2-5.4 [facility] Work Phone: Blood hemoglobin measurement (mass/volume)on 11-30-2021 Hemoglobin (Bld) [Mass/Vol] 12.4 g/dL 12.0-15.0 [facility] Work Phone: Blood lymphocytes/100 leukoc yteson 11-30-2021 Lymphocytes/100 WBC (Bld) 13.5 % 19-41 [facility] Work Phone: Blood manual differential co mment interpretation (narrative result)on 11-30-2021 Manual differential comment Alvaro (Bld) [Interp] SCANNED [facility] Work Phone: Comment on above: LYMPHOPENIA NOTED Blood monocytes/100 leukocyt eson 11-30-2021 Monocytes/100 WBC (Bld) 11.4 % 0-[address] [facility] Work Phone: Blood platelet mean volumeon 11-30-2021 Platelet mean volume (Bld) [Entitic vol] 10.1 fL 6.2-12.0 [facility] Work Phone: CO2 (BldA) [Partial pressure ]on 11-30-2021 CO2 (Bld) [Partial pressure] 93.8 mm[Hg] 35-45 [facility] Work Phone: Determination of erythrocyte mean corpuscular volume (MCV)on 11-30-2021 MCV (RBC) [Entitic vol] 101.3 fL 81-[address] [facility] Work Phone: Direct bilirubinon 2 Bilirubin.direct [Mass/Vol] 0.09 mg/dL 0.00-0.30 [facility] Work Phone: Hematocrit Auto (Bld) [Volum e fraction]on 11-30-2021 Hematocrit (Bld) [Volume fraction] 39.4 % 37-47 [facility] Work Phone: Ketones Test strip Ql (U)on 11-30-2021 Ketones Ql (U) Negative Negative [facility] Work Phone: Laboratory - Chemistry and C hemistry - challengeon 11-30-2021 ALP [Catalytic activity/Vol] 56 U/L 45-117 [facility] Work Phone: ALT [Catalytic activity/Vol] 17 U/L 13-56 [facility] Work Phone: CO2 [Moles/Vol] 27.0 mmol/L 21.0-32.0 [facility] Work Phone: Globulin (S) [Mass/Vol] 3.9 g/dL 2.2-4.[address] [facility] Work Phone: Urea nitrogen/Creatinine [Mass ratio] 13.7 mg/mg 10-20 [facility] Work Phone: Laboratory - Hematology and Cell countson 11-30-2021 Erythrocyte distribution width (RBC) [Entitic vol] 50.4 fL 35.1-43.9 [facility] Work Phone: Erythrocyte distribution width (RBC) [Ratio] 13.6 % 11.6-14.6 [facility] Work Phone: Immature granulocytes/100 WBC (Bld) 1.100 % 0.0-0.9 [facility] Work Phone: Comment on above: IG% - Immature Granu locytes (promyelocytes, myelocytes and metamyelocytes) > 1% indicates that a LEFT SHIFT is Present. MCH (RBC) [Entitic mass] 31.9 pg 27.0-32.0 [facility] Work Phone: Nucleated RBC/100 WBC (Bld) [Ratio] 0 % 0-5 [facility] Work Phone: MCHC Auto (RBC) [Mass/Vol]on 11-30-2021 MCHC (RBC) [Mass/Vol] 31.5 g/dL 32-36 [facility] Work Phone: Mucus LM Ql (Urine sed)on Mucus Ql (Urine sed) 0 SEEN /hpf [facility] Work Phone: Nitrite Test strip Ql (U)on 11-30-2021 Nitrite Ql (U) Negative Negative [facility] Work Phone: No Panel Informationon 11-30 Methicillin-Resist S.aureus DNA PCR Negative Negative [facility] Work Phone: Bld Gas Crit Called To/Read Back By Yes [facility] Work Phone: Blood Gas Liter Flow 6.0 /min [facility] Work Phone: Blood Gas Notified Whom pranay [facility] Work Phone: Blood Gas Sample Site R Radial [facility] Work Phone: Blood Gas Specimen Type ART [facility] Work Phone: Blood Gas Total CO2 32 mmol[facility]L [facility] Work [facility]: Oxygen Delivery Device Cannula [facility] Work Phone: Blood Gas Liter Flow 6.0 /min [facility] Work Phone: Blood Gas Notified Time [address] [facility] [address] [facility] Work Phone: D-Dimer Quantitative (PE/DVT) 1.22 FEU/ug/m 0.27-0.49 [facility] Work Phone: Comment on above: D-Dimer ELEVATED (>0 .49): Additional studies and clinicalassessments are indicated to conclude diagnosis of:Deep Vein Thrombosis (DVT) or Pulmonary Embolism (PE)CRITICAL VALUE VERIFIED. CALLED TO [id number] Kaylah Maurice.RESULTS READ BACK BY SAME . Estimated Creatinine Clearance Calc 25.52 ml/min [facility] Work Phone: Estimated GFR (MDRD) Amer 31 mL/min >60 [facility] Work Phone: Comment on above: GFR Calc Estimated GFR (MDRD) Non-Af Amer 26 mL/min >60 [facility] Work Phone: Comment on above: Non- GFR Calc Troponin I High Sensitivity 41 pg/mL 3.0-54.0 [facility] Work Phone: Comment on above: Please Note: New Rosa Elena t Units and Gender Specific Reference Ranges. For more information see Policy Stat Procedure [place] High Sensitivity Troponin (TNIH) and attachments. Oxygen (BldA) [Partial press ure]on 11-30-2021 Oxygen (Bld) [Partial pressure] 78 mmHG 75-100 [facility] Work Phone: Platelets bldon 11-30-2021 Platelets (Bld) [#/Vol] 127 10*3/uL 150-450 [facility] Work Phone: Protein Test strip Ql (U)on 11-30-2021 Protein Ql (U) 100 mg/dl Negative [facility] Work Phone: Serum or plasma C reactive p rotein measurement (mass/volume)on 11-30-2021 CRP [Mass/Vol] 4.11 mg/L 0.0-3.0 [facility] Work Phone: Comment on above: C-Reactive Protein ( CRP) provides useful information for thediagnosis, therapy and monitoring of inflammatory processesand associated diseases. For the evaluation of Relative Riskfor Cardiovascular Disease, a High Sensitivity CRP (HSCRP)should be ordered. Serum or plasma albumin reese urement (mass/volume)on 11-30-2021 Albumin [Mass/Vol] 3.7 g/dL 3.2-5.0 [facility] Work Phone: Serum or plasma calcium reese urement (mass/volume)on 11-30-2021 Calcium [Mass/Vol] 8.7 mg/dL 8.5-10.1 [facility] Work Phone: Serum or plasma creatinine m easurement (mass/volume)on 11-30-2021 Creatinine [Mass/Vol] 2.04 mg/dL 0.55-1.02 [facility] Work Phone: Comment on above: The validity of the calculated GFR & GFRAA in patients over 70 years has not been determined. Clinical correlation is essential. Serum or plasma ferritin cathy surement (mass/volume)on 11-30-2021 Ferritin [Mass/Vol] 79 ng/mL 8-252 [facility] Work Phone: Serum or plasma urea nitroge n measurement (mass/volume)on 11-30-2021 Urea nitrogen [Mass/Vol] 28 mg/dL 7-18 [facility] Work Phone: Squamous epithelial cells de tection in urine sediment by light microscopyon 11-30-2021 Epithelial cells.squamous LM Ql (Urine sed) 0-5 SEEN /hpf 5-10 [facility] Work Phone: Thin prep Papanicolaou smear with manual screeningon 11-30-2021 Thin prep Papanicolaou smear with manual screening 22 U/L 15-37 [facility] Work Phone: Thin prep Papanicolaou smear with manual screening 6 5-15 [facility] Work Phone: Thin prep Papanicolaou smear with manual screening 198 U/L 84-246 [facility] Work Phone: Urine blood detectionon 07-0 RBC Ql (U) 50 /ul Negative [facility] Work Phone: RBC Ql (U) 0-5 SEEN /hpf 0-5 [facility] Work Phone: Urine clarityon 11-30-2021 Clarity (U) Clear Clear [facility] Work Phone: Urine coarse granular cast d etectionon 11-30-2021 Coarse Granular Casts LM Ql (Urine sed) 5-10 SEEN /lpf 0-5 /lpf [facility] Work Phone: Urine color determinationon 11-30-2021 Color (U) Yellow Yellow [facility] Work Phone: Urine glucose detectionon Glucose Ql (U) Normal mg/dl Normal [facility] Work Phone: Urine leukocyte esterase det ection by dipstickon 11-30-2021 Leukocyte esterase Test strip Ql (U) Negative Negative [facility] Work Phone: Urine pHon 11-30-2021 pH (U) 5.0 [pH] 5.0 - 8.0 [facility] Work Phone: Urine sediment bacteria coun t by microscopy (number/high power field)on 11-30-2021 Bacteria LM.HPF (Urine sed) [#/Area] RARE /hpf None Seen [facility] Work Phone: Urine sediment fine granular cast count by microscopy (number/low power field)on 11-30-2021 Fine Granular Casts LM.LPF (Urine sed) [#/Area] 5-10 SEEN /lpf 0-5 [facility] Work Phone: Urine specific gravity measu rementon 11-30-2021 Specific gravity (U) [Rel density] 1.020 1.002-1.030 [facility] Work Phone: Urobilinogen Auto test strip Ql (U)on 07-03-2022 Urobilinogen Ql (U) Normal mg/dl Normal [facility] Work Phone: pH measurementon 11-30-2021 pH (Unsp spec) 7.10 [pH] 7.35-7.45 [facility] Work Phone: Bronchoalveolar lavage cultu re with Gram stain Respiratory Culture Haemophilus influenzae [facility] Work Phone: Gram stain for investigation of transfusion reaction Microscopic observation Gram stain Nom (Unsp spec) [facility] Work Phone: No Panel Information SARS-CoV-2 & FLU Antigen (Rapid) [facility] Work Phone: Streptococcus pneumoniae Antigen (M [facility] Work Phone: Vital Signs Date Time Vital Sign Value Performing Clinician Facility 01-16-2025 13:21-0400 Body height 167.6 cm Katharine Akhtar MD Work Phone: [facility] 01-16-2025 13:21-0400 Body mass index (BMI) [Ratio] 41.32 kg/m2 Katharine Akhtar MD Work Phone: [facility] 01-16-2025 13:21-0400 Body weight 116.12 kg Katharine Akhtar MD Work Phone: [facility] 01-16-2025 13:21-0400 Diastolic blood pressure 58 mm[Hg] Katharine Akhtar MD Work Phone: [facility] 01-16-2025 13:21-0400 Heart rate 84 /min Katharine Akhtar MD Work Phone: [facility] 01-16-2025 13:21-0400 SaO2% (BldA) [Mass fraction] 94 % Katharine Akhtar MD Work Phone: [facility] 01-16-2025 13:21-0400 Systolic blood pressure 99 mm[Hg] Katharine Akhtar MD Work Phone: [facility] 01-16-2025 13:19-0400 Body mass index (BMI) [Ratio] 41.32 kg/m2 [facility] Work Phone: [facility] 01-16-2025 13:19-0400 Body weight 116.12 kg [facility] Work Phone: [facility] Comment on above: patient stated. unable to stand on scale 01-16-2025 13:19-0400 Heart rate 84 /min [facility] Work Phone: [facility] 01-16-2025 13:19-0400 SaO2% (BldA) [Mass fraction] 94 % [facility] Work Phone: [facility] 01-08-2025 14:00-0400 Inhaled oxygen flow rate 2 L/min Dr. Zee Jose DO Work Phone: [facility] 01-08-2025 09:10-0400 Heart rate 69 /min Dr. Zee Jose DO Work Phone: [facility] 01-08-2025 07:25-0400 Body temperature 97.7 [degF] Dr. Zee Jose DO Work Phone: [facility] 01-08-2025 07:25-0400 Diastolic blood pressure 69 mm[Hg] Dr. Zee Jose DO Work Phone: [facility] 01-08-2025 07:25-0400 Respiratory rate 17 /min Dr. Zee Jose DO Work Phone: [facility] 01-08-2025 07:25-0400 SaO2% (BldA) [Mass fraction] 94 % Dr. Zee Jose DO Work Phone: [facility] 01-08-2025 07:25-0400 Systolic blood pressure 145 mm[Hg] Dr. Zee Jose DO Work Phone: [facility] 01-06-2025 03:00-0400 Inhaled oxygen concentration 32 % Dr. Zee Jose DO Work Phone: [facility] 01-05-2025 14:27-0400 Body height 170.[address] Zee Jose DO Work Phone: [facility] 01-05-2025 14:27-0400 Body weight 117.[address] Zee Jose DO Work Phone: [facility] 01-05-2025 12:50-0400 Body mass index (BMI) [Ratio] 40.5 kg/m2 Dr. Zee Jose DO Work Phone: [facility] 01-05-2025 11:31-0400 Body temperature 96.8 [degF] Dr. Zee Jose DO Work Phone: [facility] 01-05-2025 11:31-0400 Diastolic blood pressure 73 mm[Hg] Dr. Zee Jose DO Work Phone: [facility] 01-05-2025 11:31-0400 Heart rate 75 /min Dr. Zee Jose DO Work Phone: [facility] 01-05-2025 11:31-0400 Respiratory rate 18 /min Dr. Zee Jose DO Work Phone: [facility] 01-05-2025 11:31-0400 SaO2% (BldA) [Mass fraction] 91 % Dr. Zee Jose DO Work Phone: [facility] 01-05-2025 11:31-0400 Systolic blood pressure 125 mm[Hg] Dr. Zee Jose DO Work Phone: [facility] 01-05-2025 11:05-0400 Inhaled oxygen concentration 30 % Dr. Zee Jose DO Work Phone: [facility] 01-05-2025 10:30-0400 Inhaled oxygen flow rate 2 L/min Dr. Zee Jose DO Work Phone: [facility] 01-05-2025 09:52-0400 Body height 167.[address] Zee Jose DO Work Phone: [facility] 01-05-2025 09:52-0400 Body mass index (BMI) [Ratio] 42.5 kg/m2 Dr. Zee Jose DO Work Phone: [facility] 01-05-2025 09:52-0400 Body weight 119.[address] Zee Jose DO Work Phone: [facility] 11-03-2024 12:41-0400 Body temperature 98.5 [degF] Dr. Zee Jose DO Work Phone: [facility] 11-03-2024 12:41-0400 Diastolic blood pressure 83 mm[Hg] Dr. Zee Jose DO Work Phone: [facility] 11-03-2024 12:41-0400 Heart rate 67 /min Dr. Zee Jose DO Work Phone: [facility] 11-03-2024 12:41-0400 Respiratory rate 16 /min Dr. Zee Jose DO Work Phone: [facility] 11-03-2024 12:41-0400 SaO2% (BldA) [Mass fraction] 90 % Dr. Zee Jose DO Work Phone: [facility] 11-03-2024 12:41-0400 Systolic blood pressure 153 mm[Hg] Dr. Zee Jose DO Work Phone: [facility] 11-03-2024 08:06-0400 Inhaled oxygen flow rate 2 L/min Dr. Zee Jose DO Work Phone: [facility] 11-03-2024 04:34-0400 Body mass index (BMI) [Ratio] 41.3 kg/m2 Dr. Zee Jose DO Work Phone: [facility] 11-03-2024 04:34-0400 Body weight [address] Zee Jose DO Work Phone: [facility] 11-02-2024 20:32-0400 Inhaled oxygen concentration 93 % Dr. Zee Jose DO Work Phone: [facility] 11-01-2024 14:01-0400 Body height 167.[address] Zee Jose DO Work Phone: [facility] 10-31-2024 19:00-0400 Diastolic blood pressure 52 mm[Hg] Dr. Zee Jose DO Work Phone: [facility] 10-31-2024 19:00-0400 Heart rate 58 /min Dr. Zee Jose DO Work Phone: [facility] 10-31-2024 19:00-0400 Respiratory rate 17 /min Dr. Zee Jose DO Work Phone: [facility] 10-31-2024 19:00-0400 SaO2% (BldA) [Mass fraction] 98 % Dr. Zee Jose DO Work Phone: [facility] 10-31-2024 19:00-0400 Systolic blood pressure 139 mm[Hg] Dr. Zee Jose DO Work Phone: [facility] 10-31-2024 18:30-0400 Inhaled oxygen concentration 30 % Dr. Zee Jose DO Work Phone: [facility] 10-31-2024 17:09-0400 Body temperature 98 [degF] Dr. Zee Jose DO Work Phone: [facility] 10-31-2024 15:00-0400 Inhaled oxygen flow rate 2 L/min Dr. Zee Jose DO Work Phone: [facility] 10-31-2024 13:41-0400 Body mass index (BMI) [Ratio] 41.3 kg/m2 Dr. Zee Jose DO Work Phone: [facility] 10-31-2024 13:41-0400 Body weight 116.[address] Zee Jose DO Work Phone: [facility] 06-03-2025 13:12-0400 Body height 167.[address] Zee Jose DO Work Phone: [facility] 08-24-2022 14:29-0400 Diastolic blood pressure 63 mm[Hg] [facility] 08-24-2022 14:29-0400 Heart rate 68 /min [facility] 08-24-2022 14:29-0400 Respiratory rate 16 /min [facility] 08-24-2022 14:29-0400 SaO2% (BldA) [Mass fraction] 92 % [facility] 08-24-2022 14:29-0400 Systolic blood pressure 98 mm[Hg] [facility] 08-24-2022 12:38-0400 Inhaled oxygen flow rate 6 L/min [facility] 08-24-2022 10:30-0400 Inhaled oxygen concentration 40 % [facility] 08-24-2022 09:14-0400 Body height 172.72 cm [facility] 08-24-2022 09:14-0400 Body mass index (BMI) [Ratio] 39.2 kg/m2 [facility] 08-24-2022 09:14-0400 Body temperature 98.4 [degF] [facility] 08-24-2022 09:14-0400 Body weight 117 kg [facility] 12-04-2021 11:20-0400 Inhaled oxygen flow rate 1 L/min Dr. Zee Jose Work Phone: [facility] Work Phone: 12-04-2021 11:20-0400 SaO2% (BldA) [Mass fraction] 93 % Dr. Zee Jose Work Phone: [facility] Work Phone: 12-04-2021 11:16-0400 Heart rate 69 /min Dr. Zee Jose Work Phone: [facility] Work Phone: 12-04-2021 11:16-0400 Respiratory rate 17 /min Dr. Zee Jose Work Phone: [facility] Work Phone: 12-04-2021 10:40-0400 Body temperature 97.2 [degF] Dr. Zee Jose Work Phone: [facility] Work Phone: 12-04-2021 10:40-0400 Diastolic blood pressure 59 mm[Hg] Dr. Zee Jose Work Phone: [facility] Work Phone: 12-04-2021 10:40-0400 Systolic blood pressure 92 mm[Hg] Dr. Zee Jose Work Phone: [facility] Work Phone: 12-04-2021 09:07-0400 Body height 172.[address] Zee Jose Work Phone: [facility] Work Phone: 12-04-2021 09:07-0400 Body weight [address] Zee Jose Work Phone: [facility] Work Phone: 12-02-2021 06:00-0400 Inhaled oxygen concentration 25 % Dr. Zee Jose Work Phone: [facility] Work Phone: 11-30-2021 23:02-0400 Body mass index (BMI) [Ratio] 35.2 kg/m2 Dr. Zee Jose Work Phone: [facility] Work Phone: 11-30-2021 22:29-0400 Body temperature 99.4 [degF] [facility] Work Phone: 11-30-2021 22:29-0400 Diastolic blood pressure 90 mm[Hg] [facility] Work Phone: 11-30-2021 22:29-0400 Heart rate 103 /min [facility] Work Phone: 11-30-2021 22:29-0400 Respiratory rate 18 /min [facility] Work Phone: 11-30-2021 22:29-0400 SaO2% (BldA) [Mass fraction] 100 % [facility] Work Phone: 11-30-2021 22:29-0400 Systolic blood pressure 145 mm[Hg] [facility] Work Phone: 11-30-2021 22:13-0400 Inhaled oxygen flow rate 8 L/min [facility] Work Phone: 11-30-2021 20:24-0400 Body height 172.72 cm [facility] Work Phone: 11-30-2021 20:24-0400 Body mass index (BMI) [Ratio] 35.6 kg/m2 [facility] Work Phone: 11-30-2021 20:24-040 Body weight 106.4 kg [facility] Work Phone: Encounters Encounter Date Encounter Type Care Provider Facility Start: 03-19-2025 End: 03-19-2025 ambulatory [facility] Facility:[facility] Start: 01-17-2025 End: 01-17-2025 Telephone encounter Katharine Akhtar MD Work Phone: Pulmonary Medicine Comment on above: Insurance Authorizat ion Start: 01-16-2025 End: 01-16-2025 Patient encounter procedure [facility]m [facility] Work Phone: [facility]M [facility] Comment on above: Stage 3 severe COPD by GOLD classification ([facility]) (Primary Dx); Chronic respiratory failure with hypoxia and hypercapnia (HCC); YESSY (obstructive sleep apnea); Former cigarette smoker; Morbid obesity ([facility]); Pulmonary hypertension (HCC) Start: 01-16-2025 End: 01-16-2025 ambulatory [facility] Work Phone: PULM LAB [facility] [id number] Comment on above: Spirometry Start: 01-08-2025 Non-patient / Non-visit Dr. Laura Sol MD -[facility] Work Phone: Start: 01-07-2025 Non-patient / Non-visit Dr. Laura Sol MD -[facility] Work Phone: Start: 01-06-2025 Non-patient / Non-visit Dr. Laura Sol MD -[facility] Work Phone: Start: 01-05-2025 ambulatory Josafat Taylorjulian Gracia ity:[facility] Start: 01-05-2025 End: 01-08-2025 Evaluation and management of inpatient Dr. Laura Sol MD -[facility] Work Phone: Start: 11-03-2024 Non-patient / Non-visit Dr. Annette Zeng MD -[facility] Work Phone: Start: 11-02-2024 Non-patient / Non-visit Dr. Laura Sol MD [facility] Work Phone: Start: 11-01-2024 Non-patient / Non-visit Dr. Laura Sol MD [facility] Work Phone: Start: 11-01-2024 ambulatory Michelle Gonzales Facility[facility] Start: 11-01-2024 Non-patient / Non-visit Dr. Michelle chaudhry MD -[facility] Start: 10-31-2024 ambulatory Zhane Stone Facility:[facility] Start: 10-31-2024 End: 11-03-2024 Evaluation and management of inpatient Dr. Teja Zeng MD -[facility] Work Phone: Start: 06-29-2024 End: 06-29-2024 ambulatory Zee Rebeca Facility:[facility] Start: 06-21-2024 End: 06-21-2024 ambulatory [facility] Facility:[facility] Start: 05-03-2024 ambulatory Yehuda Snider Facility:[facility] Start: 05-03-2024 End: 05-03-2024 ambulatory [facility] Facility:[facility] Start: 04-18-2024 End: 04-18-2024 ambulatory Allie Coreas Facility:[facility] Start: 03-29-2024 End: 03-29-2024 ambulatory Madalyn PITTS Facility:[facility] Start: 03-10-2024 ambulatory Yehudajeanine Snider Facility:[facility] Start: 03-10-2024 End: 03-10-2024 ambulatory Zee Jose Facility:[facility] Start: 01-21-2024 ambulatory Con Metzger Facility:[facility] Start: 01-21-2024 End: 01-24-2024 Evaluation and management of inpatient Con Metzger Facility:[facility] Start: 03-25-2023 End: 03-25-2023 ambulatory [facility] Work Phone: Start: 03-25-2023 End: 03-25-2023 Patient encounter procedure [facility]-Shaka Angel Wangannita [facility] Start: 08-24-2022 End: 08-24-2022 Emergency department patient visit [facility] Start: 12-04-2021 Non-patient / Non-visit Dr. Ramona Jose Work Phone: [facility] Start: 12-03-2021 Non-patient / Non-visit Dr. Ramona Jose Work Phone: [facility] Start: 12-03-2021 Non-patient / Non-visit Dr. Ramona Jose Work Phone: [facility] Start: 12-02-2021 Non-patient / Non-visit Dr. Ramona Jose Work Phone: [facility] Start: 12-02-2021 Non-patient / Non-visit Dr. Ramona Jose Work Phone: [facility] Start: 12-01-2021 Non-patient / Non-visit Dr. Ramona Jose Work Phone: [facility] Start: 12-01-2021 Non-patient / Non-visit Dr. Ramona Jose Work Phone: [facility] Start: 11-30-2021 End: 12-04-2021 Evaluation and management of inpatient [facility]Intensive Care Unit Procedures Date Procedure Procedure Detail Performing Clinician Start: 01-16-2025 Co diffusing capacity E tang Akhtar MD Work Phone: Start: 01-08-[address] Zee Jose DO Work Phone: Start: 01-05-2025 Carbon dioxide measurement, partial pressure Dr. Zee Jose DO Work Phone: Start: 01-05-2025 Gases blood o2 satur ation only direct reese Dr. Zee Jose DO Work Phone: Start: 01-05-2025 Measurement of parti al pressure of oxygen in blood Dr. Zee Jose DO Work Phone: Start: 01-05-[address] Zee Jose DO Work Phone: Start: 01-05-2025 Legionella pneumophi la antigen assay Dr. Zee Jose DO Work Phone: Start: 01-05-[address] Zee Jsoe DO Work Phone: Start: 01-05-2025 End: 01-05-2025 Streptococcus pneumoniae antigen assay Dr. Zee Jose DO Work Phone: Start: 01-05-2025 CT of chest without contrast Dr. Zee Jose DO Work Phone: Start: 01-05-2025 Carbon dioxide measurement, partial pressure Dr. Zee Jose DO Work Phone: Start: 01-05-2025 Gases blood o2 satur ation only direct reese Dr. Zee Jose DO Work Phone: Start: 01-05-2025 Measurement of parti al pressure of oxygen in blood Dr. Zee Jose DO Work Phone: Start: 01-05-[address] Zee Jose DO Work Phone: Start: 01-05-[address] Zee Jose DO Work Phone: Start: 01-05-2025 X-ray of chest, PA a nd lateral views Dr. Zee Jose DO Work Phone: Start: 11-03-[address] Zee Jose DO Work Phone: Start: 11-01-2024 Carbon dioxide measurement, partial pressure Dr. Zee Jose DO Work Phone: Start: 11-01-2024 Gases blood o2 satur ation only direct reese Dr. Zee Jose DO Work Phone: Start: 11-01-2024 Measurement of parti al pressure of oxygen in blood Dr. Zee Jose DO Work Phone: Start: 11-01-[address] Zee Jose DO Work Phone: Start: 11-01-2024 Serum inorganic phos phate measurement Dr. Zee Jose DO Work Phone: Start: 10-31-2024 Carbon dioxide measurement, partial pressure Dr. Zee Jose DO Work Phone: Start: 10-31-2024 Gases blood o2 satur ation only direct reese Dr. Zee Jose DO Work Phone: Start: 10-31-2024 Measurement of parti al pressure of oxygen in blood Dr. Zee Jose DO Work Phone: Start: 10-31-[address] Zee Jose DO Work Phone: Start: 10-31-2024 Urnls dip stick/tabl et reagent auto microscopy Dr. Zee Jose DO Work Phone: Start: 10-31-[address] Zee Jose DO Work Phone: Start: 10-31-[address] Zee Jose DO Work Phone: Start: 10-31-2024 SARS-CoV-2, Influenz a & RSV (PCR) Dr. Zee Jose DO Work Phone: Start: 10-31-[address] Zee Jose DO Work Phone: Start: 10-31-2024 X-ray of chest, PA a nd lateral views Dr. Zee Jose DO Work Phone: Start: 10-31-[address] Zee Jose DO Work Phone: Start: 08-24-2022 Plain chest X-ray Start: 12-01-2021 Plain chest X-ray Dr. Valarie Jose Work Phone: Start: 11-30-2021 Plain chest X-ray Start: 06-06-2007 Colonoscopy Pulm [facility] Work Phone: Investigation of transfusion reaction Dr. Zee Jose Work Phone: Legionella pneumophi la antigen assay Dr. Zee Jose Work Phone: Refusal of treatment by patient Refusal of care by patient Respiratory microbia l culture Dr. Zee Jose Work Phone: SARS-CoV-2 & FLU Ant igen (Rapid) SARS-CoV-2 & FLU Ant igen (Rapid) Streptococcus pneumo niae Antigen (M Dr. Zee Jose Work Phone: Plan of Treatment Date Care Activity Detail Author Start: 04-16-2025 End: 04-16-2025 Patient encounter procedure 04/16/2025 1:30 PM EST Office Visit Pulmonary Medicine [address] [place] [address] Katharine Akhtar MD [address] [place] [address] 3 mth follow up Pulmonary Medicine Comment on above: 3 mth follow up Start: 02-16-2025 End: 02-16-2025 Patient encounter procedure 02/16/2025 3:00 PM EDT Office Visit Neurology [address] [place] [address] Jacquelyn Castillo APRN.MANUFACTURING ENGINEER SUPERVISOR [address] [place] [address] Stage 3 severe COPD by GOLD classification (HCC) [J44.9]; YESSY (obstructive sleep apnea) [G47.33] Neurology Comment on above: Stage 3 severe COPD by GOLD classification (HCC) [J44.9]; YESSY (obstructive sleep apnea) [G47.33] Start: 01-29-2025 Influenza vaccination Influenza Vacc ine (#1) [facility] Start: 01-08-2025 Patient discharge [facility] Start: 01-05-2025 [facility] Start: 01-05-2025 Following clinical p athway protocol [facility] Start: 01-05-2025 Assessment of risk o f venous thromboembolism [facility] Start: 01-05-2025 Insertion of cathete r into peripheral vein [facility] Start: 01-05-2025 Measuring intake and output [facility] Start: 01-05-2025 Oxygen therapy [facility] Start: 01-05-2025 Providing care accor ding to standard [facility] Start: 01-05-2025 Provision of activit y privileges [facility] Start: 01-05-2025 Referral to occupati onal therapist [facility] Start: 01-05-2025 Referral to service [facility] Start: 01-05-2025 [facility] Start: 01-05-2025 Continuous pulse oximetry [facility] Start: 01-05-2025 Admission procedure [facility] Start: 01-05-2025 Hospital admission, emergency, from emergency room, medical nature [facility] Start: 01-05-2025 [facility] Start: 01-05-2025 Dual pressure sponta neous ventilation support [facility] Start: 01-05-2025 Inhalation therapy procedure [facility] Start: 01-05-2025 Patient referral to dietitian [facility] Start: 11-03-2024 Patient discharge [facility] Start: 11-02-2024 Referral to service [facility] Start: 10-31-2024 Following clinical p athway protocol [facility] Start: 10-31-2024 Assessment of risk o f venous thromboembolism [facility] Start: 10-31-2024 Catheterization of vein [facility] Start: 10-31-2024 Insertion of cathete r into peripheral vein [facility] Start: 10-31-2024 Measuring intake and output [facility] Start: 10-31-2024 Oxygen therapy [facility] Start: 10-31-2024 Patient referral to dietitian [facility] Start: 10-31-2024 Physiotherapy of chest [facility] Start: 10-31-2024 Providing care accor ding to standard [facility] Start: 10-31-2024 Referral to occupati onal therapist [facility] Start: 10-31-2024 Referral to service [facility] Start: 10-31-2024 [facility] Start: 10-31-2024 Respiratory pathogen s DNA and RNA panel - Respiratory specimen by NICOLE with probe detection [facility] Start: 10-31-2024 Verification routine [facility] Start: 10-31-2024 Admission procedure [facility] Start: 10-31-2024 Hospital admission, emergency, from emergency room, medical nature [facility] Start: 10-31-2024 Continuous pulse oximetry [facility] Start: 10-31-2024 Dual pressure sponta neous ventilation support [facility] Start: 10-31-2024 Bacteria identified in Blood by Culture Blood Culture [facility] Start: 10-31-2024 Bacteria identified in Urine by Culture Urine Culture [facility] Start: 10-31-2024 Blood culture Blood Culture [facility] Start: 10-31-2024 End: 10-31-2024 [facility] Start: 05-31-2024 Advance Directive Discussion Advance Directive Discussion [facility] Start: 08-24-2022 Continuous pulse oximetry [facility] Start: 08-24-2022 Dual pressure sponta neous ventilation support [facility] Start: 08-24-2022 Blood chemistry [facility] Start: 08-24-2022 Brain natriuretic pe ptide measurement [facility] Start: 08-24-2022 CT of head without contrast Brain/Head without Contrast [facility] Start: 08-24-2022 Troponin I measurement [facility] Start: 08-24-2022 End: 08-24-2022 [facility] Start: 12-04-2021 Patient discharge [facility] Work Phone: Start: 12-03-2021 Care planning and pr oblem solving actions [facility] Work Phone: Start: 12-01-2021 End: 12-02-2021 [facility] Work Phone: Start: 12-01-2021 Application of intermittent pneumatic compression device [facility] Work Phone: Start: 11-30-2021 Following clinical p athway protocol [facility] Work Phone: Start: 11-30-2021 Aspiration precautions [facility] Work Phone: Start: 11-30-2021 Assessment of risk o f venous thromboembolism [facility] Work Phone: Start: 11-30-2021 Consultation [facility] Work Phone: Start: 11-30-2021 Continuous pulse oximetry [facility] Work Phone: Start: 11-30-2021 Elevation of head of bed [facility] Work Phone: Start: 11-30-2021 Fall prevention [facility] Work Phone: Start: 11-30-2021 Incentive spirometry [facility] Work Phone: Start: 11-30-2021 Inhalation therapy procedure [facility] Work Phone: Start: 11-30-2021 Insertion of cathete r into peripheral vein [facility] Work Phone: Start: 11-30-2021 Introduction of urin raymundo catheter [facility] Work Phone: Start: 11-30-2021 Measuring intake and output [facility] Work Phone: Start: 11-30-2021 Methicillin resistan t Staphylococcus aureus screening test [facility] Work Phone: Start: 11-30-2021 Oxygen therapy [facility] Work Phone: Start: 11-30-2021 Providing care accor ding to standard [facility] Work Phone: Start: 11-30-2021 Provision of activit y privileges [facility] Work Phone: Start: 11-30-2021 Referral to occupati onal therapist [facility] Work Phone: Start: 11-30-2021 Referral to service [facility] Work Phone: Start: 11-30-2021 Vital signs measurements [facility] Work Phone: Start: 11-30-2021 Verification routine [facility] Work Phone: Start: 11-30-2021 Brain natriuretic pe ptide measurement [facility] Work Phone: Start: 11-30-2021 Dual pressure sponta neous ventilation support [facility] Work Phone: Start: 11-30-2021 Legionella pneumophi la Ag [Presence] in Urine [facility] Work Phone: Start: 11-30-2021 Streptococcus pneumo niae antigen assay [facility] Work Phone: Start: 11-30-2021 End: 11-30-2021 [facility] Work Phone: Start: 11-30-2021 Viral nucleic acid assay [facility] Work Phone: Start: 11-30-2021 Admission procedure [facility] Work Phone: Start: 11-30-2021 End: 11-30-2021 Blood culture [facility] Work Phone: Start: 11-30-2021 End: 12-01-2021 [facility] Work Phone: Start: 11-30-2021 Patient referral to dietitian [facility] Work Phone: Start: 04-13-2017 Diabetes Screening Diabetes Screenin g [facility] Start: 11-12-2015 Screening for osteoporosis Bone Dens ity Screening [facility] Start: 2010 RSV Vaccine (1 - Ris k 60-74 years 1-dose series) RSV Vaccine (1 - Risk 60-74 years 1-dose series) [facility] Start: 06-06-2010 Screening for malign ant neoplasm of colon [facility] Start: 12-29-2006 Medicare Annual Well ness Visit Medicare Annual Wellness Visit [facility] Start: 03-20-2006 Pneumococcal Vaccine : 50+ (2 of 2 - PCV) Pneumococcal Vaccine: 50+ (2 of 2 - PCV) [facility] Start: 2000 Shingrix Vaccine (1 of 2) Rodrigues grix Vaccine (1 of 2) [facility] Start: 11-12-1995 Lipid panel Lipid Screening [facility] Start: 11-12-1995 Screening for malign ant neoplasm of colon [facility] Start: 1990 Screening for malign ant neoplasm of breast Mammogram Screening [facility] Start: 1969 Urine microalbumin profile DTa P,Tdap,Td Vaccine (1 - Tdap) [facility] Start: 1968 Anxiety Screening Anxiety Screening [facility] Start: 1968 Depression Screening Depression Scre ening [facility] Start: 1968 Hepatitis C screening Hepatitis C [facility] Alanine aminotransfe rase [Enzymatic activity/volume] in Serum or Plasma [facility] Albumin [Mass/volume ] in Serum or Plasma [facility] Alkaline phosphatase [Enzymatic activity/volume] in Serum or Plasma [facility] Anion gap measurement [facility] Aspartate aminotrans ferase [Enzymatic activity/volume] in Serum or Plasma [facility] Bacteria identified in Blood by Culture Blood Culture [facility] Work Phone: Bilirubin, total measurement [facility] Bilirubin.direct [Mass/volume] in Serum or Plasma [facility] Blood culture [facility] Work Phone: Brain natriuretic pe ptide measurement [facility] Work Phone: BUN/Creatinine ratio [facility] C reactive protein [Mass/volume] in Serum or Plasma [facility] Work Phone: Calcium [Mass/volume ] in Serum or Plasma [facility] Carbon dioxide, tota l [Moles/volume] in Serum or Plasma [facility] Chloride [Moles/volu me] in Serum or Plasma [facility] Creatinine [Moles/vo lume] in Serum or Plasma [facility] Ferritin [Mass/volum e] in Serum or Plasma [facility] Work Phone: Glucose [Mass/volume ] in Serum or Plasma [facility] Hematocrit [Volume Fraction] of Blood [facility] Hemoglobin [Mass/vol ume] in Blood [facility] Work Phone: Leukocytes [#/volume ] in Blood [facility] Mean corpuscular hemoglobin concentration determination [facility] Mean corpuscular hemoglobin determination [facility] Measurement of renal function [facility] Neutrophil count [facility] Neutrophil percent differential count [facility] Patient Education [facility] Work Phone: Patient referral [facility] Work Phone: Platelets [#/volume] in Blood [facility] Potassium [Moles/vol ume] in Serum or Plasma [facility] Red blood cell count [facility] Red cell distributio n width determination [facility] Sodium [Moles/volume ] in Serum or Plasma [facility] Total protein measurement [facility] Urea nitrogen [Mass/volume] in Serum or Plasma [facility] Urine culture [facility] Immunizations Immunization Date Immunization Notes Care Provider Fa [facility] 03-25-2023 influenza, injectabl e, quadrivalent, preservative free Dr. Zee Jose DO Work Phone: [facility] 03-25-2023 influenza virus vacc ine, unspecified formulation [facility] Work Phone: [facility] 08-27-2020 Covid (Pfizer) [facility] 08-06-2020 Covid (Pfizer) [facility] 03-20-2005 pneumococcal polysaccharide vaccine, [address] Zee Jose DO Work Phone: [facility] Payers Date Payer Category Payer Self-pay [id number] 2006 Medicare MEDICARE [id number] 2006 Medicare [id number] 2005 Private Health Insurance [facility] [id number] 2005 Private Health Insurance [id number] Unknown [id number] .2.462 Unknown [id number] 2.16840.1.039359.3.579 .2.462 Unknown [id number] 2.16.840.1.721956.3.579 .2.462 Unknown [id number] 2.16840.1.906732.3.579 .2.462 Unknown [id number] 2.16.840.1.859755.3.579 .2.462 Unknown [id number] 2.16840.1.013170.3.579 .2.462 Unknown [id number] 2.16840.1.182723.3.579 .2.462 Unknown [id number] 2.840.1.085598.3.579 .2.462 Unknown [id number] 2.840.1.748057.3.579 .2.462 Unknown [id number] 2.840.1.013846.3.579 .2.462 Unknown [id number] 2.840.1.276194.3.579 .2.462 Unknown [id number] 2.840.1.462056.3.579 .2.462 Unknown [id number] 2.840.1.517703.3.579 .2.462 Unknown [id number] 2.840.1.924856.3.579 .2.462 Unknown [id number] 2.840.1.795255.3.579 .2.462 Unknown [id number] 2.840.1.268978.3.579 .2.462 Unknown [id number] 2.840.1.280900.3.579 .2.462 Unknown [id number] 2.840.1.956678.3.579 .2.462 Unknown [id number] 2.16840.1.693447.3.579 .2.462 Unknown [id number] 2.16840.1.989849.3.579 .2.462 Unknown [id number] 2.840.1.219907.3.579 .2.462 Unknown [id number] 2.16.840.1.880267.3.579 .2.462 Unknown [id number] 2.16.840.1.425059.3.579 .2.462 Unknown [id number] 2.16.840.1.988364.3.579 .2.462 Social History Date Type Detail Facility Start: 11-30-2021 End: 08-24-2022 Tobacco smoking status CAIS Unknown if ever smoked [facility] Start: 03-07-2019 None [facility] Start: 03-07-2019 Spouse/ Signif icant Other [facility] Start: 03-08-2019 Cigarettes [facility] Start: 1950 Sex Assigned At Female [facility] Start: 10-31-2024 End: 01-16-2025 Tobacco smoking status CAIS Ex-smoker (finding) [facility] Start: 03-31-1986 End: 03-31-2006 History of tobacco use Current smoker [facility] Start: 03-31-1986 End: 03-31-2006 History of tobacco use Cigarette Smoker [facility] Start: 01-16-2025 Cigarettes smoked current (pack per day) - Reported [address] [facility] Start: 01-16-2025 Tobacco use and exposure Smokeless tobacco non-user [facility] Start: 01-16-2025 Alcoholic beverage intake Current non-drinker of alcohol (finding) [facility] Start: 01-16-2025 Tobacco use panel [facility] Start: 05-01-2012 National Score (1-10 0), lower number is lower risk [address] [facility] Start: 01-16-2025 Tobacco Comment Quit 2009 [facility] Start: 1950 Sex assigned at Not on file [facility] Goals Date Patient Goal Desired Activity /State Functional Status Date Assessment Result Facility 01-08-2025 Functional status Chair;Stand and pivot [facility] Work Phone: 11-03-2024 Functional status Ambulates [facility] Work Phone: 12-04-2021 Functional status Chair [facility] Work Phone: Mental Status Date Assessment Result Facility 01-08-2025 Cognitive function Voice/Name [facility] Work Phone: 11-03-2024 Cognitive function Voice/Name [facility] Work Phone: 08-24-2022 Cognitive function Level Of Consciousness Drowsy [facility] Work Phone: 12-04-2021 Cognitive function Voice/Name [facility] Work Phone: Clinical Notes 01-24-2024 to 03-19-2025 Telephone Encounter - Beti Siegel LPN - 01/17/2025 9:33 AM EDTTelephone Encounter - Beti Siegel LPN - 01/17/2025 9:33 AM EDTPatient Instructions Note Date & Type Note Facility 03-19-2025 Note HNO ID: [id number] Author: JACQUELYN CASTILLO APRN.MANUFACTURING ENGINEER SUPERVISOR Service: ? Author Type: Nurse Practitioner Type: Progress Notes Filed: 03/23/2025 17:15 Note Text: [facility] New Patient Evaluation PATIENT NAME: Desire Chaudhry DATE OF SERVICE: March 18, 2025 Recording using Powered software for draft documentation of the visit was discussed with the patient/authorized health and safety representative; all questions welcomed and answered. Patient/authorized health and safety representative agreed to proceed CONSULTING PROVIDER: Katharine Akhtar (Edy) [address] [facility] [address] REASON FOR CONSULT: Katharine Akhtar sends the patient for an opinion about Has COPD as well with history of hypercapnia. Treated with BiPAP in hospital. My findings and recommendations will be transmitted electronically via shared medical record to the consulting provider. HPI: The patient is a 74-year-old female with COPD, chronic hypoxemic and hypercapnic respiratory failure, diastolic heart failure, recent-onset atrial fibrillation, stroke with left leg paralysis, CKD, HTN, HLD, pulmonary HTN, obesity, and limited mobility due to left leg paralysis from stroke and complications from multiple back surgeries. She presents for evaluation of sleep-disordered breathing and the need for a BiPAP titration. She is accompanied by a it application architect who provides additional history. The patient was referred by pulmonology for a sleep study due to multiple hospitalizations for hypercapnia. She has been treated with BiPAP during hospitalizations but reports poor tolerance of the mask. She currently uses 2 L of oxygen at night, prescribed by her PCP, and believes she is doing well with this regimen. She is not interested in a sleep study or BiPAP therapy at this time. She reports that her had noted snoring, but she denies waking herself up with snoring, snorting, or gasping. She denies headaches, heartburn, acid reflux, sleep paralysis, sleep hallucinations, memory issues, and acting out dreams. She reports a single episode of palpitations during her last hospitalization, which led to the initiation of a new medication. She denies restless legs but notes chronic left leg pain and limited mobility due to her stroke and back surgeries. Her sleep schedule consists of going to bed around midnight and waking up around 0600. She reports no difficulty falling asleep and wakes up a couple of times during the night to use the bathroom. She occasionally takes naps but not routinely. She reports feeling well during the day and does not drive. She engages in activities such as crossword puzzles, jigsaw puzzles, painting, and word searches. Patient Questionnaires Sleep Scores 01/30/2016 PHQ-9 Score 2 Data saved with a previous flowsheet row definition 01/30/2016 PROMIS Global Health - (T-Scores - the mean of general population = 50. Five points is a clinically meaningful difference.) Mental T-Score 41.1 PAST TREATMENTS: None PRIOR SLEEP STUDIES: None PAST MEDICAL HISTORY Diagnosis Date Atherosclerosis of both carotid arteries Atrial fibrillation (HCC) Benign neoplasm of colon Chronic respiratory failure (HCC) CKD (chronic kidney disease) COPD (chronic obstructive pulmonary disease) (HCC) Degeneration of intervertebral disc, site unspecified Diastolic heart failure (HCC) History of DVT (deep vein thrombosis) HLD (hyperlipidemia) Hypertension Intracranial hemorrhage (HCC) 2017 Lymphedema Obesity, unspecified Pulmonary hypertension (HCC) Pure hypercholesterolemia Unspecified constipation PAST SURGICAL HISTORY Procedure Laterality Date BACK SURGERY HX x 7 COLONOSCOPY FLX DX W/COLLJ SPEC WHEN PFRMD 06/06/2007 Colonoscopy DECOMPRESSION THORACIC SEGMENT TRANSPED PAST SURGICAL HISTORY OF hysterectomy ACTIVE PROBLEM LIST Benign Neoplasm of Colon Internal Hemorrhoids Without Mention of Complication External Hemorrhoids Without Mention of Complication Unspecified Constipation Epidermal Cyst Fusion of Spine, Thoracic Region Spinal Stenosis, Lumbar Region, With Neurogenic Claudication Left Buttock Pain Chronic Midline Low Back Pain Without Sciatica Allergies As of Date: 03/19/2025 (No Known Allergies) Fully Assessed 03/19/2025 CURRENT MEDICATIONS: ELIQUIS 5 mg tab(s) Take 5 mg by mouth two times a day. furosemide (LASIX) 40 mg tablet Take 1 tablet by mouth once daily. (Patient taking differently: Take 1 tablet by mouth as needed.) gemfibrozil (LOPID) 600 mg tablet Take 600 mg by mouth two times a day. metoprolol tartrate, short acting, (LOPRESSOR) 25 mg tablet Take 25 mg by mouth two times a day. sulfamethoxazole-trimethoprim (BACTRIM) 400-80 mg per tablet Take 1 tablet by mouth once daily. NEURONTIN 300 MG CAP Take two capsules three times daily onjjphoebex-fbhvwboyx-wtqexhff (TRELEGY ELLIPTA) 100-62.5-25 mcg inhalation powder Inhale 1 puff as instr (more content not included)... [facility] 01-17-2025 Telephone encounter Note Breztri is a non covered medication by patient's benefit plan. Prefer Trelegy Ellipta. Please advise. Beti Siegel LPN [facility] 01-17-2025 Miscellaneous Notes Breztri is a non covered medication by patient's benefit plan. Prefer Trelegy Ellipta. Please advise. Beti Siegel LPN documented in this encounter [facility] 01-16-2025 Instructions Katharine Akhtar MD - 01/16/2025 2:16 PM EDT COPD=Chronic obstructive lung disease documented in this encounter [facility] 01-16-2025 History of Present illness Narrative Images from the original note were not included. . Respiratory [facility] Note Patient name: Desire Chaudhry PCP: Zee Jose DO Referring Physician: same Recording using Powered software for draft documentation of the visit was discussed with the patient/authorized health and safety representative; all questions welcomed and answered. Patient/authorized health and safety representative agreed to proceed Consultation requested by Dr. Jose for an opinion regarding COPD. My final recommendations will be communicated back to the requesting physician by way of shared Medical record or letter to requesting physician via US mail. CC: COPD HPI: Desire Chaudhry 74 year old female recently admitted to [facility] with acute on chronic hypoxemic and hypercapnic respiratory failure due to COPD exacerbation with diastolic heart failure, new onset AF and possible pneumonia. Other medical issues include CKD, history of stroke, history of pulmonary embolism on Eliquis, HTN, HLD, pulmonary hypertension. She required BiPAP/NIV during her hospital stay for hypercapnia (pCO2 92 with pH 7.19). Responded well to diuresis and was discharged on 2 L continuous oxygen. She states that she used to have portable tanks at home but no longer has portable oxygen available. Desire has been hospitalized three times for CO2 retention. She has not undergone a sleep study and is not currently using BiPAP. She is non-ambulatory, with limited mobility due to paralyzed left leg as complication from multiple back surgeries. Can only transfer from her chair to the toilet and couch. Chronic respiratory symptoms consist of RICHARDSON. Denies chronic cough, mucus production, wheezing or chest pain. Not currently using any inhaled therapy other than albuterol which she stopped using due to lack of efficacy. She is a former 1 pack-a-day smoker having quit more than 15 years ago. DME: [employer] 2 L DATA: PFT: PFT 2015: SPIROMETRY Ref ULN/LLN Pre Pre Post Post Post Reese % Ref Reese % Ref % Chg FVC (L) 2.97 2.39 81 2.38 80 -1 FEV1 (L) 2.19 1.56 72 1.65 75 5 FEV1/FVC (%) 81 65 69 FEV6 2.22 2.26 2 FEF 25-75% (L/sec) 1.88 0.73 39 0.99 53 36 FEF 50% (L/sec) 2.73 (1.4 - 4.1) 1.09 40 1.65 60 52 FEF 75% (L/sec) 0.64 (0.2 - 1.1) 0.23 36 0.30 47 30 PEF (L/sec) 5.77 (2.9 - 8.6) 4.16 72 4.82 83 16 FET 100% (sec) 10.90 9.48 -13 FIVC (L/min) 2.97 2.07 70 2.17 73 5 FEF/FIF50 0.46 0.51 12 MVV (L/min) Imaging / Diagnostic Studies: Echocardiogram 10/2024: Stage I diastolic dysfunction, EF 65%. Severe LAE RVSP [address] 01/05/25 [facility]: Lungs and Airways: Small bilateral pleural effusions. Consolidation in the right lower lobe. Mild increased markings at the left lung base suggestive of possible compressive atelectasis. No evidence of pulmonary edema. Review of chest CT shows pleural effusions, emphysema and RLL consolidation PAST MEDICAL HISTORY Diagnosis Date Atherosclerosis of both carotid arteries Atrial fibrillation (HCC) Benign neoplasm of colon Chronic respiratory failure (HCC) CKD (chronic kidney disease) COPD (chronic obstructive pulmonary disease) (HCC) Degeneration of intervertebral disc, site unspecified Diastolic heart failure (HCC) History of DVT (deep vein thrombosis) HLD (hyperlipidemia) Hypertension Intracranial hemorrhage (HCC) 2017 Lymphedema Obesity, unspecified Pulmonary hypertension (HCC) Pure hypercholesterolemia Unspecified constipation ALLERGIES No Known Allergies ELIQUIS 5 mg tab(s) Take 5 mg by mouth two times a day. furosemide (LASIX) 40 mg tablet Take 1 tablet by mouth once daily. gemfibrozil (LOPID) 600 mg tablet Take 600 mg by mouth two times a day. metoprolol tartrate, short acting, (LOPRESSOR) 25 mg tablet Take 25 mg by mouth two times a day. sulfamethoxazole-trimethoprim (BACTRIM) 400-80 mg per tablet Take 1 tablet by mouth once daily. NEURONTIN 300 MG CAP Take two capsules three times daily kuwbotsyge-axkkxcax-gulwzgrocw (BREZTRI AEROSPHERE) 160-9-4.8 mcg/actuation HFA aerosol inhaler Inhale 2 puffs as instructed two times a day. SOCIAL HISTORY[1] Retired from [employer] 31 years Pets: None FAMILY HISTORY Problem Relation Age of Onset Coronary Artery Disease Mother Coronary Artery Disease Father other (Black lung) Father Diabetes Sister Diabetes Brother PAST SURGICAL HISTORY Procedure Laterality Date BACK SURGERY HX x 7 COLONOSCOPY FLX DX W/COLLJ SPEC WHEN PFRMD 06/06/2007 Colonoscopy DECOMPRESSION THORACIC SEGMENT TRANSPED PAST SURGICAL HISTORY OF hysterectomy PMH, Social history, family history and surgical history reviewed and updated in EMR REVIEW OF SYSTEMS: CONSTITUTIONAL: No fevers, chills, nightsweats, unintended weight loss HEENT: Denies nasal congestion/sinus symptoms, problematic allergy problems. CARDIOVASCULAR: No chest pain, palpitations, orthopnea, PND. Edema, dyspnea PULM: See HPI GI: No GI issues NEURO: No neuropathy MUSC-SKEL: Back pain, paralyzed left lower extremity PSY: No concerns regarding depression, anxiety INTEGUMENTARY: Bruising PHYSICAL EXAMINATION: BP 99/58 Pulse 84 Ht 5' 6 (1.68m) Wt 256 lb (116.1kg) SpO2 94% BMI 41.34 kg/(m^2). General Appearance: Obese elderly female in wheelchair. Skin: Skin color, texture, turgor normal, no suspicious rashes or lesions. Multiple ecchymoses Head: Normocephalic, no masses, lesions, tenderness or abnormalities. Oropharynx: No oral lesions. Neck: No masses or adenopathy Chest wall: Kyphosis Lungs: Not labored, normal to percussion, diminished breath sounds, expiratory wheezes on the right. Heart: Regular rate and rhythm, no murmur. Extremities: Edema left greater than right, no clubbing. Assessment/Plan: 1. Severe COPD, GOLD stage 3 - Recommend triple inhaler therapy. Sent prescription for Breztri -Discussed potential side effects and proper usage 2. Chronic hypoxemic and hypercapnic respiratory failure -She will need a formal sleep study for BiPAP titration. If does not tolerate BiPAP then will need NIV -Mild sleep medicine -Send prescription for oxygen to her DME 3. Probable YESSY -High likelihood of YESSY/OHS -See #2 4. Former cigarette smoker - Former smoker with sequelae of emphysema -Does not qualify for lung cancer screening based on her duration of smoking history greater than 15 years -She will however need follow-up imaging of her chest to look for clearance of her infiltrate 5. Morbid obesity - BMI 41 -Weight loss advised 6. 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 Katharine Akhtar MD Respiratory [facility] [1] Social History Tobacco Use Smoking status: Former Current packs/day: 0.00 Average packs/day: 1 pack/day for 20.0 years (20.0 ttl pk-yrs) Types: Cigarettes Start date: 03/31/1986 Quit date: 03/31/2006 Years since quittin.8 Smokeless tobacco: Never Tobacco comments: Quit 2009 Vaping Use Vaping status: Never Used Substance Use Topics Alcohol use: No Drug use: No documented in this encounter [facility] 01-16-2025 Note HNO ID: [id number] Author: KATHARINE AKHTAR MD Service: ? Author Type: Physician Type: Progress Notes Filed: 01/16/2025 16:32 Note Text: . Respiratory Brandon Note Patient name: Desire Chaudhry PCP: Zee Jose DO Referring Physician: same Recording using Powered software for draft documentation of the visit was discussed with the patient/authorized health and safety representative; all questions welcomed and answered. Patient/authorized health and safety representative agreed to proceed Consultation requested by Dr. Jose for an opinion regarding COPD. My final recommendations will be communicated back to the requesting physician by way of shared Medical record or letter to requesting physician via US mail. CC: COPD HPI: Desire Chaudhry 74 year old female recently admitted to [facility] with acute on chronic hypoxemic and hypercapnic respiratory failure due to COPD exacerbation with diastolic heart failure, new onset AF and possible pneumonia. Other medical issues include CKD, history of stroke, history of pulmonary embolism on Eliquis, HTN, HLD, pulmonary hypertension. She required BiPAP/NIV during her hospital stay for hypercapnia (pCO2 92 with pH 7.19). Responded well to diuresis and was discharged on 2 L continuous oxygen. She states that she used to have portable tanks at home but no longer has portable oxygen available. Desire has been hospitalized three times for CO2 retention. She has not undergone a sleep study and is not currently using BiPAP. She is non-ambulatory, with limited mobility due to paralyzed left leg as complication from multiple back surgeries. Can only transfer from her chair to the toilet and couch. Chronic respiratory symptoms consist of RICHARDSON. Denies chronic cough, mucus production, wheezing or chest pain. Not currently using any inhaled therapy other than albuterol which she stopped using due to lack of efficacy. She is a former 1 pack-a-day smoker having quit more than 15 years ago. DME: [employer] 2 L DATA: PFT: PFT 2014: SPIROMETRY Ref ULN/LLN Pre Pre Post Post Post Reese % Ref Reese % Ref % Chg FVC (L) 2.97 2.39 81 2.38 80 -1 FEV1 (L) 2.19 1.56 72 1.65 75 5 FEV1/FVC (%) 81 65 69 FEV6 2.22 2.26 2 FEF 25-75% (L/sec) 1.88 0.73 39 0.99 53 36 FEF 50% (L/sec) 2.73 (1.4 - 4.1) 1.09 40 1.65 60 52 FEF 75% (L/sec) 0.64 (0.2 - 1.1) 0.23 36 0.30 47 30 PEF (L/sec) 5.77 (2.9 - 8.6) 4.16 72 4.82 83 16 FET 100% (sec) 10.90 9.48 -13 FIVC (L/min) 2.97 2.07 70 2.17 73 5 FEF/FIF50 0.46 0.51 12 MVV (L/min) Imaging / Diagnostic Studies: Echocardiogram 10/2024: Stage I diastolic dysfunction, EF 65%. Severe LAE RVSP [address] 01/05/25 [facility]: Lungs and Airways: Small bilateral pleural effusions. Consolidation in the right lower lobe. Mild increased markings at the left lung base suggestive of possible compressive atelectasis. No evidence of pulmonary edema. Review of chest CT shows pleural effusions, emphysema and RLL consolidation PAST MEDICAL HISTORY Diagnosis Date Atherosclerosis of both carotid arteries Atrial fibrillation (HCC) Benign neoplasm of colon Chronic respiratory failure (HCC) CKD (chronic kidney disease) COPD (chronic obstructive pulmonary disease) (HCC) Degeneration of intervertebral disc, site unspecified Diastolic heart failure (HCC) History of DVT (deep vein thrombosis) HLD (hyperlipidemia) Hypertension Intracranial hemorrhage (HCC) 2017 Lymphedema Obesity, unspecified Pulmonary hypertension (HCC) Pure hypercholesterolemia Unspecified constipation ALLERGIES No Known Allergies ELIQUIS 5 mg tab(s) Take 5 mg by mouth two times a day. furosemide (LASIX) 40 mg tablet Take 1 tablet by mouth once daily. gemfibrozil (LOPID) 600 mg tablet Take 600 mg by mouth two times a day. metoprolol tartrate, short acting, (LOPRESSOR) 25 mg tablet Take 25 mg by mouth two times a day. sulfamethoxazole-trimethoprim (BACTRIM) 400-80 mg per tablet Take 1 tablet by mouth once daily. NEURONTIN 300 MG CAP Take two capsules three times daily cqbagklpje-rwitosbr-pxdpnqhzfz (BREZTRI AEROSPHERE) 160-9-4.8 mcg/actuation HFA aerosol inhaler Inhale 2 puffs as instructed two times a day. SOCIAL HISTORY[1] Retired from [employer] 31 years Pets: None FAMILY HISTORY Problem Relation Age of Onset Coronary Artery Disease Mother Coronary Artery Disease Father other (Black lung) Father Diabetes Sister Diabetes Brother PAST SURGICAL HISTORY Procedure Laterality Date BACK SURGERY HX x 7 COLONOSCOPY FLX DX W/COLLJ SPEC WHEN PFRMD 06/06/2007 Colonoscopy DECOMPRESSION THORACIC SEGMENT TRANSPED PAST SURGICAL HISTORY OF hysterectomy PMH, Social history, family history and surgical history reviewed and updated in EMR REVIEW OF SYSTEMS: CONSTITUTIONAL: No fevers, chills, nightsweats, unintended weight loss HEENT: Denies nasal congestion/sinus symptoms, problematic allergy problems. CARDIOVASCU (more content not included)... [facility] 01-08-2025 Consult note Note Date/Time January 08, 2025 2:44pm [facility] Medical Records Department [address] [place] [address] Counseling Note - Pharmacy 01/08/25 1443 MR#: [id number] Acct: [id number] Name: DESIRE CHAUDHRY Rep #:[id number] : 1950 74 From: Mansi Flores PCP: Dr. Zee Jose, DO Status:ADM IN Y Location: [place] [address] Pharmacy [facility] Counseling Pharmacy Service has performed discharge medication reconciliation and counseling for this patient. 1. FUROSEMIDE 40MG PO DAILY 2. LEVOFLOXACIN 750MG PO Q48 X 3 DOSES 3. METOPROLOL TARTRATE 12.5MG PO BID 4. PREDNISONE 40MG PO X 5 DAYS The patient's discharge medication list was reviewed for discrepancies and discrepancies were resolved. The patient was counseled on the following discharge medications and changes in medications for homegoing were reviewed. The Reason for Use, instructions for use, and potential side effects were reviewed for all new medications. The patient's questions regarding all of their medications were answered. The patient was able to verbally demonstrate an understanding of their dischargemedications. Medications at Discharge Home Medications gemfibrozil 600 mg tablet 600 mg PO BID cholesteol 03/03/19 apixaban 5 mg tablet (Eliquis) 5 mg PO BID blood thinner 01/21/24 albuterol sulfate 90 mcg/actuation aerosol inhaler 2 puff inhalation Q6H PRN PRNwheezing 01/05/25 budesonide-formoterol HFA 80 mcg-4.5 mcg/actuation aerosol inhaler (Breyna) 2 puff inhalation Q12H COPD 01/05/25 gabapentin 300 mg capsule 300 mg PO Q12H 01/05/25 sennosides 8.6 mg-docusate sodium 50 mg tablet (Senna with Docusate Sodium) 2 tab-cap PO BID PRN constipation 01/05/25 furosemide 40 mg tablet 40 mg PO DAILY #30 tabs 01/08/25 levofloxacin 750 mg tablet 750 mg PO Q48 #3 tabs 01/08/25 metoprolol tartrate 25 mg tablet 12.5 mg (1/2 x 25 mg) PO BID #30 tabs 01/08/25 prednisone 20 mg tablet 40 mg (2 x 20 mg) PO DAILY 5 days #10 tabs 01/08/25 01/08/25 1444 <Electronically signed by Mansi Flores> Date _ Mansi Resendez Signature (if applicable): Date CC: ~ Signed [facility] Work Phone: [phone] Discharge summary [facility] Medical Records Department [address] [place] [address] Discharge Summary 01/08/25 1401 MR#: [id number] Acct: [id number] Name: DESIRE CHAUDHRY Rep #:[id number] : 1950 74 From: Laura Sol MD PCP: Dr. Zee Jose DO Status:ADM IN Location: [place] [address] Providers Date of Admission: 01/05/25 Date of Discharge: 01/08/25 Primary Care Physician: Dr. 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 Medicine Routine Consulting Provider: Intensivists/Pulmonary Med Reason for Consult: acute on chronic hypoxic and hypercapnic respiratory failure EMERGENT Consult: No MD Notified: Yes Date Notified: 01/05/25 Time Notified: 18:43 Method of Notification: Answering Service Reason For Visit: ACUTE ON CHRONIC HYPOXIC & HYPERCAPNIC RESPIRATORY Diagnosis Discharge Diagnosis (1) Increasing shortness of breath: Status: Acute Code(s): R06.02 - Shortness of breath (2) Right lower lobe pneumonia: Status: Acute Code(s): J18.9 - Pneumonia, unspecified organism (3) Hypoxia: Status: Acute Code(s): R09.02 - Hypoxemia Plan #Acute on chronic hypoxic and hypercapnic respiratory failure due to COPD exacerbation as well as fluid overload and pneumonia * remains on 3L of oxygen. * Currently on IV levofloxacin and IV Solu-Medrol as well as IV Lasix. * Critical care on board. Breathing treatments and bronchodilators. Titrate oxygen to maintain saturation above 90%. * Chest x-ray showed interstitial and alveolar edema as well as cardiac enlargement. CT of the chest done without contrast as she is already on blood thinners showed bilateral small pleural effusionsright greater than left with consolidation in the right lower lobe and possible atelectasis in the left lower lobe as well as minimal pericardial thickening * Breathing treatments bronchodilators. Titrate oxygen to maintain saturation above 90%. * Urine for strep and Legionella negative * In cumulative negative balance by 5.32 L. * #Paroxysmal afib * new onset. Developed afib with RVR overnight and received a cardizem bolus. * Started on oral metoprolol. * 2D echo done on 10/31/2024 showed: Mild concentric left ventricular hypertrophy with EF of 65% andstage I diastolic dysfunction with severely enlarged left atrium and RVSP of 47 mmHg. * continue eliquis and oral metoprolol 12.5mg bid. * TSH WNL * #History of PE: On Eliquis #Hyperlipidemia: On gemfibrozil #History of peripheral neuropathy: On gabapentin. History of CKD stage III: Cr is down to 1.96 today. This is up from 1.79 yesterday but is around previous baselines. Will monitor. DVT prophylaxis: Already on Eliquis CODE STATUS: DNR CCA no intubation * Disposition: Anticipated discharge by tomorrow if patient remains stable in light of new onset A-fib. Medications at Discharge Home Medications gemfibrozil 600 mg tablet 600 mg PO BID cholesteol 03/03/19 apixaban 5 mg tablet (Eliquis) 5 mg PO BID blood thinner 01/21/24 albuterol sulfate 90 mcg/actuation aerosol inhaler 2 puff inhalation Q6H PRN PRNwheezing 01/05/25 budesonide-formoterol HFA 80 mcg-4.5 mcg/actuation aerosol inhaler (Breyna) 2 puff inhalation Q12H COPD 01/05/25 gabapentin 300 mg capsule 300 mg PO Q12H 01/05/25 sennosides 8.6 mg-docusate sodium 50 mg tablet (Senna with Docusate Sodium) 2 tab-cap PO BID PRN constipation 01/05/25 furosemide 40 mg tablet 40 mg PO DAILY #30 tabs 01/08/25 levofloxacin 750 mg tablet 750 mg PO Q48 #3 tabs 01/08/25 metoprolol tartrate 25 mg tablet 12.5 mg (1/2 x 25 mg) PO BID #30 tabs 01/08/25 prednisone 20 mg tablet 40 mg (2 x 20 mg) PO DAILY 5 days #10 tabs 01/08/25 Hospital Course Operations None Procedures None Summary of Care Provided Minutes Spent on Discharge: 47 Hospital Course: DESIRE CHAUDHRY, is a 74 F with a PMH as outlined who was admitted via the ED on 01/05/2025 with a complaint of shortness of breath. She is chronically on 2L of oxygen at home, and says she had recently been bumped up to 3L. She started feeling short of breath for a couple of days prior to admission. She usually wears oxygen at home but her shortness of breath was not improving. She denied any cough,chest pain, wheezing, nausea or vomiting, palpitations or any other symptoms. She called the EMS who found her to be saturating in the 30s when they arrived. Vitals in the ED were BP of 153/65, OK of 72, RR of 20 and temp of 96.8F. She was saturating at 100% on BIPAP. CBC showed hb of 10.1, wbc of 5.5 and plateletsof 153. Chemistry showed sodium of 141, potassium of 4.9 and bicarb of 31.4. Cr was 1.79 and initial troponin was 37. ABG showed pH of 7.12, pCO2 of 97.8 as well as pO2 of 57. She was admitted to be managed for acute on chronic hypoxic and hypercapnic respiratory failure due to COPD exacerbation and possible pneumonia. CXR showed cardiac enlargement with interstitial and alveolar edema. She was started on diuresis with IV Lasix and also started on IV Levophed floxacillin as well as IV Solu-Medrol. Pulmonology was consulted. Hospital course was complicated by new onset A-fib for which she was started on p.o. metoprolol. The A-fib subsequently resolved and she converted to normal sinus rhythm. Her shortness of breath improved and shewas weaned down to her baseline oxygen levels. She felt much better and was discharged home on 2024. Lasix 40 mg daily, p.o. metoprolol 12.5 mg twice daily. She was already on Eliquis 5 mg dailyand was continued on this. She was discharged witha 3 day course of PO levaquin 750mg hr40yoxs. Sheis to follow up with her PCP and patient appointment coordinator within 1-2 weeks. Patient seen and examined prior to discharge. She felt much better today and had no complaints. Shehad an uneventful night. Review of systems otherwise negative. Her shortness of breath is improved.Labs and vitals reviewed. Homemedication reviewed and reconciled. Physical Exam Const alert, oriented x3 and no apparent distress Constitutional Narrative: Class II obesity. General Appearance: cooperative and comfortable HEENT normocephalic, head/scalp atraumatic and hearing grossly normal bilaterally Mouth: oral and palatal mucosa normal Eyes PERRL, EOMs intact bilaterally and conjunctivae normal Neck no lymphadenopathy and supple Resp Resp Narrative: Mildly diminished breath sounds bibasilarly. No wheezes or crackles. On 2L of oxygen by nasal cannula. Cardio regular rate, regular rhythm, S1 normal heart sound, S2 normal heart sound and no murmurs GI normal to inspection, nondistended, normoactive bowel sounds, soft to palpation,non-tender and non-distended Extremity normal to inspection, full ROM, normal capillary refill and no clubbing, cyanosis or edema General Extremity: no tenderness to palpation of joints or extremities Skin General Skin Exam: no breakdown Neuro oriented x3, CN's II-XII intact bilaterally and moves all extremities Sensorium / Orientation: awake and alert Motor Exam: strength 5/5 throughout and general weakness Psych thought process normal, cooperative and affect normal Appearance: appropriate Weight / BMI Weight Weight: 258 lb 13.163 oz Body Mass Index (BMI) 40.5 ABG / Lab / Microbiology Data 01/08/25 05:33 01/08/25 05:33 Laboratory: Laboratory Results - last 24 hr 01/08/25 05:33: WBC 5.5, RBC 3.19 L, Hgb 10.1 L, Hct 33.1 L, MCV 103.8 H, MCH 31.7, MCHC 30.5 L, RDW Std Deviation 52.0 H, RDW Coeff of Alverto 13.7, Plt Count 178, MPV 10.5, Immature Gran % (Auto) 0.900, Neut % (Auto) 87.5 H, Lymph % (Auto) 6.7 L, Sequoyah % (Auto) 4.7, Eos % (Auto) 0.0, Baso % (Auto) 0.2, Absolute Neuts (auto) 4.8, Absolute Lymphs (auto) 0.37 L, Nucleated RBC % 0, Sodium 140, Potassium4.1, Chloride 94 L, Carbon Dioxide 31.3, Anion Gap 15, BUN 64 H, Creatinine 2.19 H, Estim Creat Clear Calc 29.86 L, Est GFR (MDRD) Non-Af 23 L, BUN/Creatinine Ratio 29.1 H, Glucose 125 H, Calcium 8.4 Microbiology: Microbiology 01/05/25 20:18 Mucosa - Nasopharyngeal Respiratory Panel (PCR) - Final 01/05/25 15:15 Urine, Random Legionella Antigen - Final 01/05/25 15:15 Urine, Random Streptococcus pneumoniae Antigen (M - Final D/C Instructions Discharge Activity: Return to Normal Activity Weight Bearing Status: Weight bearing as tolerated Call your doctor if you observe: Fever of 101 or Higher, Shortness of breath, Dizziness, Swelling in the ankles and Chest pain DC O2, CPAP, BIPAP Needs Home O2 Discharge instructions: Yes Type of respiratory needs?: Oxygen Oxygen frequency: ContinuousContinuous oxygen liters per minute: 2 DC home with Oxygen: Yes Home O2 MD Review: I have reviewed the oxygen testing, and the patient qualifies for home oxygen equipment and portability. The patient is mobile in the home and the community. Meaningful Use Info Meaningful Use Meaningful Use Diagnoses (Choose all that apply): CHF CHF NEGAR/ARB ordered at discharge?: No Reason NEGAR/ARB not ordered?: Not indicated Documented LVEF (%): 65 Discharge Plan Admission Admit Date/Time: 01/05/25 11:13 Primary Reason for Your Visit: acute on chronic hypoxic and hypercapnic respiratory failure Attending Provider: Laura Sol Primary Care Provider: Zee Jose Instructions Patient Instructions: Coping with Heart Failure, COPD Controlled Breathing Dc Discharge Orders/Prescriptions Prescriptions: New furosemide 40 mg Tablet 40 mg PO DAILY Qty: 30 2RF levofloxacin 750 mg Tablet 750 mg PO Q48 Qty: 3 0RF metoprolol tartrate 25 mg Tablet 12.5 mg PO BID Qty: 30 2RF prednisone 20 mg tablet 40 mg PO DAILY 5 Days Qty: 10 0RF Continued gemfibrozil 600 MG tablet 600 mg PO BID albuterol sulfate 90 mcg/actuation HFA aerosol inhaler 2 puff inhalation Q6H PRN PRN (Reason: wheezing) budesonide-formoterol [Breyna] 80-4.5 mcg/actuation HFA aerosol inhaler 2 puff inhalation Q12H gabapentin 300 mg capsule 300 mg PO Q12H sennosides-docusate sodium [Senna with Docusate Sodium] 8.6-50 mg tablet 2 tab-cap PO BID PRN (Reason: constipation) Eliquis 5 mg tablet 5 mg PO BID Discontinued sulfamethoxazole-trimethoprim 400-80 mg tablet 1 tab PO BID Referrals / Follow Up: Zee Jose DO [Primary Care Provider] - Within 1 Week Disposition Disposition (needs filled in before D/C Order can be placed): Home, Self Care Charges/Coding Visit Charges Inpatient E&M: 22343 Disch Hosp >30min 01/08/25 163 Cosigner Signature (if applicable): CC: Dr. Zee Jose DO; Dr. Laura Sol MD~ Signed [facility]08-11-2025 Discharge summary Author Laura [facility] Note Date/Time January 08, 2025 2: 01pm [facility] Medical Records Department [address] [place] [address] Instructions for Home/Discharge Instructions 01/08/25 1359 MR#: [id number] Acct: [id number] Name: DESIRE CHAUDHRY Rep #:[id number] : 1950 74 From: Laura Sol MD PCP: Dr. Zee Jose DO Status:ADM IN Discharge Instructions DC O2, CPAP, BIPAP needs Home O2 Discharge instructions: Yes Type of respiratory needs?: Oxygen Oxygen frequency: Continuous Continuous oxygen liters per minute: 2 Dressing / Incision Discharge Activity: Return to Normal Activity Weight Bearing Status: Weight bearing as tolerated Dressing / Incision Call your doctor if you observe: Fever of 101 or Higher, Shortness of breath, Dizziness, Swelling in the ankles and Chest pain Follow Up Care Test Results: Test results from this visit will be discussed in further detail at your follow- up appointment, if applicable. Discharge Plan Admission Admit Date/Time: 01/05/25 11:13 Primary Reason for Your Visit: acute on chronic hypoxic and hypercapnic respiratory failure Attending Provider: Laura Sol Primary Care Provider: Zee Jose Instructions Patient Instructions: Coping with Heart Failure, COPD Controlled Breathing Dc Discharge Orders/Prescriptions Prescriptions: New furosemide 40 mg Tablet 40 mg PO DAILY Qty: 30 2RF levofloxacin 750 mg Tablet 750 mg PO Q48 Qty: 3 0RF metoprolol tartrate 25 mg Tablet 12.5 mg PO BID Qty: 30 2RF prednisone 20 mg tablet 40 mg PO DAILY 5 Days Qty: 10 0RF Continued gemfibrozil 600 MG tablet 600 mg PO BID albuterol sulfate 90 mcg/actuation HFA aerosol inhaler 2 puff inhalation Q6H PRN PRN (Reason: wheezing) budesonide-formoterol [Breyna] 80-4.5 mcg/actuation HFA aerosol inhaler 2 puff inhalation Q12H gabapentin 300 mg capsule 300 mg PO Q12H sennosides-docusate sodium [Senna with Docusate Sodium] 8.6-50 mg tablet 2 tab-cap PO BID PRN (Reason: constipation) Eliquis 5 mg tablet 5 mg PO BID Discontinued sulfamethoxazole-trimethoprim 400-80 mg tablet 1 tab PO BID Referrals / Follow Up: Zee Jose DO [Primary Care Provider] - Within 1 Week Disposition Disposition (needs filled in before D/C Order can be placed): Home, Self Care 01/08/25 1401<Electronically signed by Laura Sol MD>Laura Sol MD CC: Dr. Zee Jose DO ~ Signed [facility] Work Phone: [phone]) 865-290508-11-2025 Discharge summary Author [facility] Note Date/Time January 08, 2025 4: 38pm [facility] Medical Records Department [address] [place] [address] Discharge Summary 01/08/25 1401 MR#: [id number] Acct: [id number] Name: DESIRE CHAUDHYR Rep #:[id number] : 1950 74 From: Laura Sol MD PCP: Dr. Zee Jose DO Status:ADM IN Location: [facility] [id number] Providers Date of Admission: 01/05/25 Date of Discharge: 01/08/25 Primary Care Physician: Dr. 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 Medicine Routine Consulting Provider: Intensivists/Pulmonary Med Reason for Consult: acute on chronic hypoxic and hypercapnic respiratory failure EMERGENT Consult: No MD Notified: Yes Date Notified: 01/05/25 Time Notified: 18:43 Method of Notification: Answering Service Reason For Visit: ACUTE ON CHRONIC HYPOXIC & HYPERCAPNIC RESPIRATORY Diagnosis Discharge Diagnosis (1) Increasing shortness of breath: Status: Acute Code(s): R06.02 - Shortness of breath (2) Right lower lobe pneumonia: Status: Acute Code(s): J18.9 - Pneumonia, unspecified organism (3) Hypoxia: Status: Acute Code(s): R09.02 - Hypoxemia Plan #Acute on chronic hypoxic and hypercapnic respiratory failure due to COPD exacerbation as well as fluid overload and pneumonia * remains on 3L of oxygen. * Currently on IV levofloxacin and IV Solu-Medrol as well as IV Lasix. * Critical care on board. Breathing treatments and bronchodilators. Titrate oxygen to maintain saturation above 90%. * Chest x-ray showed interstitial and alveolar edema as well as cardiac enlargement. CT of the chest done without contrast as she is already on blood thinners showed bilateral small pleural effusions right greater than left with consolidation in the right lower lobe and possible atelectasis in the left lower lobe as well as minimal pericardial thickening * Breathing treatments bronchodilators. Titrate oxygen to maintain saturation above 90%. * Urine for strep and Legionella negative * In cumulative negative balance by 5.32 L. * #Paroxysmal afib * new onset. Developed afib with RVR overnight and received a cardizem bolus. * Started on oral metoprolol. * 2D echo done on 10/31/2024 showed: Mild concentric left ventricular hypertrophy with EF of 65% and stage I diastolic dysfunction with severely enlarged left atrium and RVSP of 47 mmHg. * continue eliquis and oral metoprolol 12.5mg bid. * TSH WNL * #History of PE: On Eliquis #Hyperlipidemia: On gemfibrozil #History of peripheral neuropathy: On gabapentin. History of CKD stage III: Cr is down to 1.96 today. This is up from 1.79 yesterday but is around previous baselines. Will monitor. DVT prophylaxis: Already on Eliquis CODE STATUS: DNR CCA no intubation * Disposition: Anticipated discharge by tomorrow if patient remains stable in light of new onset A-fib. Medications at Discharge Home Medications gemfibrozil 600 mg tablet 600 mg PO BID cholesteol 03/03/19 apixaban 5 mg tablet (Eliquis) 5 mg PO BID blood thinner 01/21/24 albuterol sulfate 90 mcg/actuation aerosol inhaler 2 puff inhalation Q6H PRN PRNwheezing 01/05/25 budesonide-formoterol HFA 80 mcg-4.5 mcg/actuation aerosol inhaler (Breyna) 2 puff inhalation Q12H COPD 01/05/25 gabapentin 300 mg capsule 300 mg PO Q12H 01/05/25 sennosides 8.6 mg-docusate sodium 50 mg tablet (Senna with Docusate Sodium) 2 tab-cap PO BID PRN constipation 01/05/25 furosemide 40 mg tablet 40 mg PO DAILY #30 tabs 01/08/25 levofloxacin 750 mg tablet 750 mg PO Q48 #3 tabs 01/08/25 metoprolol tartrate 25 mg tablet 12.5 mg (1/2 x 25 mg) PO BID #30 tabs 01/08/25 prednisone 20 mg tablet 40 mg (2 x 20 mg) PO DAILY 5 days #10 tabs 01/08/25 Hospital Course Operations None Procedures None Summary of Care Provided Minutes Spent on Discharge: 47 Hospital Course: DESIRE CHAUDHRY, is a 74 F with a PMH as outlined who was admitted via the ED on 01/05/2025 with a complaint of shortness of breath. She is chronically on 2L of oxygen at home, and says she had recently been bumped up to 3L. She started feeling short of breath for a couple of days prior to admission. She usually wears oxygen at home but her shortness of breath was not improving. She denied any cough, chest pain, wheezing, nausea or vomiting, palpitations or any other symptoms. She called the EMS who found her to be saturating in the 30s when they arrived. Vitals in the ED were BP of 153/65, OK of 72, RR of 20 and temp of 96.8F. She was saturating at 100% on BIPAP. CBC showed hb of 10.1, wbc of 5.5 and plateletsof 153. Chemistry showed sodium of 141, potassium of 4.9 and bicarb of 31.4. Cr was 1.79 and initial troponin was 37. ABG showed pH of 7.12, pCO2 of 97.8 as well as pO2 of 57. She was admitted to be managed for acute on chronic hypoxic and hypercapnic respiratory failure due to COPD exacerbation and possible pneumonia. CXR showed cardiac enlargement with interstitial and alveolar edema. She was started on diuresis with IV Lasix and also started on IV Levophed floxacillin as well as IV Solu- Medrol. Pulmonology was consulted. Hospital course was complicated by new onset A-fib for which she was started on p.o. metoprolol. The A-fib subsequently resolved and she converted to normal sinus rhythm. Her shortness of breath improved and she was weaned down to her baseline oxygen levels. She felt much better and was discharged home on 01/08/2025. Lasix 40 mg daily, p.o. metoprolol 12.5 mg twice daily. She was already on Eliquis 5 mg daily and was continued on this. She was discharged witha 3 day course of PO levaquin 750mg [id number]. She is to follow up with her PCP and patient appointment coordinator within 1-2 weeks. Patient seen and examined prior to discharge. She felt much better today and had no complaints. She had an uneventful night. Review of systems otherwise negative. Her shortness of breath is improved. Labs and vitals reviewed. Homemedication reviewed and reconciled. Physical Exam Const alert, oriented x3 and no apparent distress Constitutional Narrative: Class II obesity. General Appearance: cooperative and comfortable HEENT normocephalic, head/scalp atraumatic and hearing grossly normal bilaterally Mouth: oral and palatal mucosa normal Eyes PERRL, EOMs intact bilaterally and conjunctivae normal Neck no lymphadenopathy and supple Resp Resp Narrative: Mildly diminished breath sounds bibasilarly. No wheezes or crackles. On 2L of oxygen by nasal cannula. Cardio regular rate, regular rhythm, S1 normal heart sound, S2 normal heart sound and no murmurs GI normal to inspection, nondistended, normoactive bowel sounds, soft to palpation,non-tender and non-distended Extremity normal to inspection, full ROM, normal capillary refill and no clubbing, cyanosis or edema General Extremity: no tenderness to palpation of joints or extremities Skin General Skin Exam: no breakdown Neuro oriented x3, CN's II-XII intact bilaterally and moves all extremities Sensorium / Orientation: awake and alert Motor Exam: strength 5/5 throughout and general weakness Psych thought process normal, cooperative and affect normal Appearance: appropriate Weight / BMI Weight Weight: 258 lb 13.163 oz Body Mass Index (BMI) 40.5 ABG / Lab / Microbiology Data 01/08/25 05:33 01/08/25 05:33 Laboratory: Laboratory Results - last 24 hr 01/08/25 05:33: WBC 5.5, RBC 3.19 L, Hgb 10.1 L, Hct 33.1 L, MCV 103.8 H, MCH 31.7, MCHC 30.5 L, RDW Std Deviation 52.0 H, RDW Coeff of Alverto 13.7, Plt Count 178, MPV 10.5, Immature Gran % (Auto) 0.900, Neut % (Auto) 87.5 H, Lymph % (Auto) 6.7 L, Sequoyah % (Auto) 4.7, Eos % (Auto) 0.0, Baso % (Auto) 0.2, Absolute Neuts (auto) 4.8, Absolute Lymphs (auto) 0.37 L, Nucleated RBC % 0, Sodium 140, Potassium 4.1, Chloride 94 L, Carbon Dioxide 31.3, Anion Gap 15, BUN 64 H, Creatinine 2.19 H, Estim Creat Clear Calc 29.86 L, Est GFR (MDRD) Non-Af 23 L, BUN/Creatinine Ratio 29.1 H, Glucose 125 H, Calcium 8.4 Microbiology: Microbiology 01/05/25 20:18 Mucosa - Nasopharyngeal Respiratory Panel (PCR) - Final 01/05/25 15:15 Urine, Random Legionella Antigen - Final 01/05/25 15:15 Urine, Random Streptococcus pneumoniae Antigen (M - Final D/C Instructions Discharge Activity: Return to Normal Activity Weight Bearing Status: Weight bearing as tolerated Call your doctor if you observe: Fever of 101 or Higher, Shortness of breath, Dizziness, Swelling in the ankles and Chest pain DC O2, CPAP, BIPAP Needs Home O2 Discharge instructions: Yes Type of respiratory needs?: Oxygen Oxygen frequency: Continuous Continuous oxygen liters per minute: 2 DC home with Oxygen: Yes Home O2 MD Review: I have reviewed the oxygen testing, and the patient qualifies for home oxygen equipment and portability. The patient is mobile in the home and the community. Meaningful Use Info Meaningful Use Meaningful Use Diagnoses (Choose all that apply): CHF CHF NEGAR/ARB ordered at discharge?: No Reason NEGAR/ARB not ordered?: Not indicated Documented LVEF (%): 65 Discharge Plan Admission Admit Date/Time: 01/05/25 11:13 Primary Reason for Your Visit: acute on chronic hypoxic and hypercapnic respiratory failure Attending Provider: Laura Sol Primary Care Provider: Zee Jose Instructions Patient Instructions: Coping with Heart Failure, COPD Controlled Breathing Dc Discharge Orders/Prescriptions Prescriptions: New furosemide 40 mg Tablet 40 mg PO DAILY Qty: 30 2RF levofloxacin 750 mg Tablet 750 mg PO Q48 Qty: 3 0RF metoprolol tartrate 25 mg Tablet 12.5 mg PO BID Qty: 30 2RF prednisone 20 mg tablet 40 mg PO DAILY 5 Days Qty: 10 0RF Continued gemfibrozil 600 MG tablet 600 mg PO BID albuterol sulfate 90 mcg/actuation HFA aerosol inhaler 2 puff inhalation Q6H PRN PRN (Reason: wheezing) budesonide-formoterol [Breyna] 80-4.5 mcg/actuation HFA aerosol inhaler 2 puff inhalation Q12H gabapentin 300 mg capsule 300 mg PO Q12H sennosides-docusate sodium [Senna with Docusate Sodium] 8.6-50 mg tablet 2 tab-cap PO BID PRN (Reason: constipation) Eliquis 5 mg tablet 5 mg PO BID Discontinued sulfamethoxazole-trimethoprim 400-80 mg tablet 1 tab PO BID Referrals / Follow Up: Zee Jose DO [Primary Care Provider] - Within 1 Week Disposition Disposition (needs filled in before D/C Order can be placed): Home, Self Care Charges/Coding Visit Charges Inpatient E&M: 41760 Disch Hosp >30min 01/08/25 1638 <Electronically signed by Laura Sol MD> Cosigner Signature (if applicable): CC: Dr. Zee Jose DO; Dr. Laura Sol MD~ Signed [facility] Work Phone: [phone]) 638-332808-11-2025 Consult note [facility] Medical Records Department [address] [place] [address] Counseling Note - Pharmacy 01/08/25 1443 MR#: [id number] Acct: [id number] Name: ISIDORODESIRE K Rep #:[id number] : 1950 74 From: Mansi Flores PCP: Dr. Zee Jose, DO Status:ADM IN Y Location: [place] [address] Pharmacy [facility] has performed discharge medication reconciliation and counseling for this patient. 1. FUROSEMIDE 40MG PO DAILY 2. LEVOFLOXACIN 750MG PO Q48 X 3 DOSES 3. METOPROLOL TARTRATE 12.5MG PO BID 4. PREDNISONE 40MG PO X 5 DAYS The patient's discharge medication list was reviewed for discrepancies and discrepancies were resolved. The patient was counseled on the following discharge medications and changes in medications for homegoing were reviewed. The Reason for Use, instructions for use, and potential side effects were reviewed for all new medications. The patient's questions regarding all of their medications were answered. The patient was able to verbally demonstrate an understanding of their dischargemedications. Medications at Discharge Home Medications gemfibrozil 600 mg tablet 600 mg PO BID cholesteol 03/03/19 apixaban 5 mg tablet (Eliquis) 5 mg PO BID blood thinner 01/21/24 albuterol sulfate 90 mcg/actuation aerosol inhaler 2 puff inhalation Q6H PRN PRNwheezing 01/05/25 budesonide-formoterol HFA 80 mcg-4.5 mcg/actuation aerosol inhaler (Breyna) 2 puff inhalation Q12H COPD 01/05/25 gabapentin 300 mg capsule 300 mg PO Q12H 01/05/25 sennosides 8.6 mg-docusate sodium 50 mg tablet (Senna with Docusate Sodium) 2 tab-cap PO BID PRN constipation 01/05/25 furosemide 40 mg tablet 40 mg PO DAILY #30 tabs 01/08/25 levofloxacin 750 mg tablet 750 mg PO Q48 #3 tabs 01/08/25 metoprolol tartrate 25 mg tablet 12.5 mg (1/2 x 25 mg) PO BID #30 tabs 01/08/25 prednisone 20 mg tablet 40 mg (2 x 20 mg) PO DAILY 5 days #10 tabs 01/08/25 01/08/25 1444 Date _ Mansi Asherignsummer Signature (if applicable): Date CC: ~ Signed [facility]08-11-2025 Discharge summary [facility] Medical Records Department [address] [place] [address] Instructions for Home/Discharge Instructions 01/08/25 1359 MR#: [id number] Acct: [id number] Name: DESIRE CHAUDHRY Rep #:[id number] : 1950 74 From: Laura Sol MD PCP: Dr. Zee Jose, Status:ADM IN Discharge Instructions DC O2, CPAP, BIPAP needs Home O2 Discharge instructions: Yes Type of respiratory needs?: Oxygen Oxygen frequency: ContinuousContinuous oxygen liters per minute: 2 Dressing / Incision Discharge Activity: Return to Normal Activity Weight Bearing Status: Weight bearing as tolerated Dressing / Incision Call your doctor if you observe: Fever of 101 or Higher, Shortness of breath, Dizziness, Swelling in the ankles and Chest pain Follow Up Care Test Results: Test results from this visit will be discussed in further detail at your follow- up appointment, if applicable. Discharge Plan Admission Admit Date/Time: 01/05/25 11:13 Primary Reason for Your Visit: acute on chronic hypoxic and hypercapnic respiratory failure Attending Provider: Laura Sol Primary Care Provider: Zee Jose Instructions Patient Instructions: Coping with Heart Failure, COPD Controlled Breathing Dc Discharge Orders/Prescriptions Prescriptions: New furosemide 40 mg Tablet 40 mg PO DAILY Qty: 30 2RF levofloxacin 750 mg Tablet 750 mg PO Q48 Qty: 3 0RF metoprolol tartrate 25 mg Tablet 12.5 mg PO BID Qty: 30 2RF prednisone 20 mg tablet 40 mg PO DAILY 5 Days Qty: 10 0RF Continued gemfibrozil 600 MG tablet 600 mg PO BID albuterol sulfate 90 mcg/actuation HFA aerosol inhaler 2 puff inhalation Q6H PRN PRN (Reason: wheezing) budesonide-formoterol [Breyna] 80-4.5 mcg/actuation HFA aerosol inhaler 2 puff inhalation Q12H gabapentin 300 mg capsule 300 mg PO Q12H sennosides-docusate sodium [Senna with Docusate Sodium] 8.6-50 mg tablet 2 tab-cap PO BID PRN (Reason: constipation) Eliquis 5 mg tablet 5 mg PO BID Discontinued sulfamethoxazole-trimethoprim 400-80 mg tablet 1 tab PO BID Referrals / Follow Up: Zee Jose DO [Primary Care Provider] - Within 1 Week Disposition Disposition (needs filled in before D/C Order can be placed): Home, Self Care 01/08/25 1401Laura Sol MD CC: Dr. 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 Zee Jose DO Status:ADM IN Location: [place] [address] Objective Data Objective Data Vital Signs: Vital Signs Last response 3 Temperature 36.9 C 01/07/25 13:42 Temperature Source Oral 01/07/25 13:42 Pulse Rate 77 01/07/25 13:42 Pulse Strength Normal (2+) 01/07/25 07:57 Respiratory Rate 17 01/07/25 13:42 Respiratory Effort Normal, Non-Labored 01/07/25 07:54 Respiratory Depth Normal 01/07/25 07:54 Respiratory Pattern Normal 01/07/25 12:59 Blood Pressure 98/59 L 01/07/25 13:42 Blood Pressure Mean 72 01/07/25 13:42 Blood Pressure Source Monitor 01/07/25 06:00 Pulse Ox 91 01/07/25 13:42 Oxygen Delivery Method Nasal Cannula 01/07/25 14:00 Oxygen Flow Rate (L/min) 3 01/07/25 14:00 Fraction of Inspired Oxygen (FIO2) 32 01/06/25 03:00 I&O: I&O Last 24 Hours 3 01/06/25 01/07/25 01/07/25 23:59 11:59 23:59 Intake Total 400 / 580 270 / 620 350 / 620 Output Total 2050 / 3950 1550 / 2500 950 / 2500 Balance -1650 / -3370 -1280 / -1880 -600 / -1880 I&O: Total Stay 3 01/05/25 09:50 thru 01/07/25 15:48 Intake Total 1450 Output Total 7750 Balance -6300 Current Meds Ordered / Administered: Current meds ordered / Administered 3 Generic Name Dose Route Start Last Admin Trade Name Freq PRN Reason Stop Dose Admin Acetaminophen 650 mg 01/05/25 13:15 Acetaminophen 325 Mg Tablet PO Q6H PRN PRN Pain 1-10 Or Fever >100.7 Albuterol Sulfate 2.5 mg 01/05/25 13:30 01/07/25 12:58 Albuterol 2.5 Mg/3 Ml Vial.Neb. INHALATION 2.5 mg Q6HWA.RT LIDA Administration Apixaban 5 mg 01/05/25 22:00 01/07/25 09:52 Apixaban 5 Mg Tablet PO 5 mg BID LIDA Administration Budesonide 0.5 mg 01/05/25 13:30 01/07/25 07:12 Budesonide Respules 0.5 Mg/2 Ml Ampul.Neb. INHALATION 0.5 mg Q12H.RT LIDA Administration Furosemide 40 mg 01/05/25 13:15 01/07/25 16:58 Furosemide 40 Mg/4 Ml Vial IV 40 mg BIDLX LIDA Administration Protocol Gabapentin 300 mg 01/05/25 22:00 01/07/25 09:51 Gabapentin 300 Mg Capsule PO 300 mg Q12 LIDA Administration Gemfibrozil 600 mg 01/05/25 22:00 01/07/25 09:52 Gemfibrozil 600 Mg Tablet PO 600 mg BID LIDA Administration Levofloxacin 750 mg in 150 mls @ 100 mls/hr 01/05/25 13:15 01/07/25 11:48 Levaquin Iv IV Infused Q48 LIDA Infusion Sodium Chloride 250 mls @ 15 mls/hr 01/05/25 14:30 IV .[id number] PRN Saline Flush Sodium Chloride 250 mls @ 15 mls/hr 01/05/25 14:30 IV .[id number] PRN Additional IVPB Infusion Methylprednisolone Sodium Succinate 40 mg 01/05/25 19:00 01/07/25 13:39 Methylprednisolone Sod Succ 40 Mg/Ml Vial IV 40 mg Q8 LIDA Administration Metoprolol Tartrate 12.5 mg 01/07/25 00:15 01/07/25 09:52 Metoprolol Tartrate 25 Mg Tablet PO 12.5 mg BID LIDA Administration Protocol Nitroglycerin 0.4 mg 01/05/25 13:15 Nitroglycerin (Inpatient Use) 0.4 Mg Tab.Subl SL Q5M PRN CARDIAC/CHEST PAIN Ondansetron HCl 4 mg 01/05/25 13:15 Ondansetron 4 Mg/2 Ml Vial IV Q8H PRN PRN NAUSEA/VOMITING Oxycodone HCl 2.5 - 5 mg 01/05/25 13:15 Oxycodone 5 Mg Tablet PO Q4H PRN PRN Pain Score 4-10 Sodium Chloride 10 - 40 ml 01/05/25 14:30 01/06/25 05:22 0.9% Saline Lock 10 Ml Syringe IV 10 ml UD PRN Administration SALINE FLUSH Trimethoprim/Sulfamethoxazole 0.5 tablet 01/05/25 17:00 01/07/25 17:02 Smz/Tmp Ds Tablet PO 0.5 tablet BIDCM [facility] Administration Lab / Micro Data 01/07/25 06:53 01/07/25 06:53 Labs: Laboratory Results - last 24 hr 01/06/25 00:07: Magnesium 1.8 01/07/25 06:53: WBC 6.4, RBC 2.90 L, Hgb 9.2 L, Hct 29.4 L, MCV 101.4 H, MCH 31.7, MCHC 31.3 L, RDW Std Deviation 51.0 H, RDW Coeff of Alverto 13.7, Plt Count 185, MPV 10.6, Immature Gran % (Auto) 0.800, Neut % (Auto) 86.2 H, Lymph % (Auto) 8.3 L, Sequoyah % (Auto) 4.7, Eos % (Auto) 0.0, Baso % (Auto) 0.0, Absolute Neuts (auto) 5.5, Absolute Lymphs (auto) 0.53 L, Nucleated RBC % 0, Sodium 140, Potassium 4.2, Chloride 97 L, Carbon Dioxide 32.7 H, Anion Gap 11, BUN 52 H, Creatinine 1.96 H, Estim Creat Clear Calc 33.36 L, Est GFR (MDRD) Non-Af 26 L, BUN/Creatinine Ratio 26.3 H, Glucose 123 H, Calcium 8.8, TSH 0.756 Rhythm Strip Rhythm Strip: Sinus Rhythm Rate: 65 Ectopy: None Assessment and Plan . Assessment and plan: HPI 74 F with a history of chronic O2 presentes with progressive shortness of breathover several days. EMS found SpO2 in the 30s; placed on BiPAP with rapid improvement. Initial ABG: PCO2 97.8 mmHg, pH 7.12 (severe hypercapnia and respiratory acidosis). She denies history of sleep study, CPAP, or BiPAP at home. No known history of snoring or witnessed apneas. Denies nocturnal choking or gasping, though detailed sleep history limited. Reports no prior nocturnal noninvasive ventilation use. Currently on BiPAP, tolerating well, improved comfort and breathing. No acute distress. Education provided about likely contribution of obesity hypoventilation syndrome and/or sleep-disordered breathing to recurrent hypercapnic episodes; emphasized importance of sleep study and home noninvasive ventilation. 01/07/25 She feels better O2 3 LPM N/C Transient AF/RVR - now NSR Brisk diuresis w/ furosemide Renal function stable TTE - LVH, dilated LA EXAM GEN NAD VS as above HEENT N/C NECK obese COR RRR CHEST CTA ABD soft EXT modest edema SKIN w/d JARRED NF ASSESSMENT/PLAN 1. Acute and chronic respiratory failure requiring NIV support 2. Suspected underlying and untreated YESSY/OHVS 3. Chronic CHF 4. CKD 5. Former tobacco use 6. PAF - NSR now 7. H/O VTED - chronic NOAC use -supplemental O2 -continue NIV support w/ sleep as tolerated -stop albuterol d/t AF/tachycardia -short course steroids/ABX - would stop soon -chronic A/C -loop diuretics as tolerated -needs outpatient PSG or perhaps just commit to chronic nocturnal NIV use given chronic hypercapnia The entirety of this encounter was done via Telemedicine 01/07/251939 <Electronically signed by Matthew Parada MD> Cosigner Signature (if applicable): CC: ~ Signed [facility] Work Phone: [phone] [id number] Progress note [facility] Medical Records Department [address] [place] [address] Progress 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 Zee Jose, DO Status:ADM IN Location: [address] 1 Objective Data Objective Data Vital Signs: Vital Signs Last response 3 Temperature 36.9 C 01/07/25 13:42 Temperature Source Oral 01/07/25 13:42 Pulse Rate 77 01/07/25 13:42 Pulse Strength Normal (2+) 01/07/25 07:57 Respiratory Rate 17 01/07/25 13:42 Respiratory Effort Normal, Non-Labored 01/07/25 07:54 Respiratory Depth Normal 01/07/25 07:54 Respiratory Pattern Normal 01/07/25 12:59 Blood Pressure 98/59 L 01/07/25 13:42 Blood Pressure Mean 72 01/07/25 13:42 Blood Pressure Source Monitor 01/07/25 06:00 Pulse Ox 91 01/07/25 13:42 Oxygen Delivery Method Nasal Cannula 01/07/25 14:00 Oxygen Flow Rate (L/min) 3 01/07/25 14:00 Fraction of Inspired Oxygen (FIO2) 32 01/06/25 03:00 I&O: I&O Last 24 Hours 3 01/06/25 01/07/25 01/07/25 23:59 11:59 23:59 Intake Total 400 / 580 270 / 620 350 / 620 Output Total 2050 / 3950 1550 / 2500 950 / 2500 Balance -1650 / -3370 -1280 / -1880 -600 / -1880 I&O: Total Stay 3 01/05/25 09:50 thru 01/07/25 15:48 Intake Total 1450 Output Total 7750 Balance -4160 Current Meds Ordered / Administered: Current meds ordered / Administered 3 Generic Name Dose Route Start Last Admin Trade Name Spencer PRN Reason Stop Dose Admin Acetaminophen 650 mg 01/05/25 13:15 Acetaminophen 325 Mg Tablet PO Q6H PRN PRN Pain 1-10 Or Fever >100.7 Albuterol Sulfate 2.5 mg 01/05/25 13:30 01/07/25 12:58 Albuterol 2.5 Mg/3 Ml Vial.Neb. INHALATION 2.5 mg Q6HWA.RT LIDA Administration Apixaban 5 mg 01/05/25 22:00 01/07/25 09:52 Apixaban 5 Mg Tablet PO 5 mg BID LIDA Administration Budesonide 0.5 mg 01/05/25 13:30 01/07/25 07:12 Budesonide Respules 0.5 Mg/2 Ml Ampul.Neb. INHALATION 0.5 mg Q12H.RT LIDA Administration Furosemide 40 mg 01/05/25 13:15 01/07/25 16:58 Furosemide 40 Mg/4 Ml Vial IV 40 mg [id number] LIDA Administration Protocol Gabapentin 300 mg 01/05/25 22:00 01/07/25 09:51 Gabapentin 300 Mg Capsule PO 300 mg Q12 LIDA Administration Gemfibrozil 600 mg 01/05/25 22:00 01/07/25 09:52 Gemfibrozil 600 Mg Tablet PO 600 mg BID LIDA Administration Levofloxacin 750 mg in 150 mls @ 100 mls/hr 01/05/25 13:15 01/07/25 11:48 Levaquin Iv IV Infused Q48 LIDA Infusion Sodium Chloride 250 mls @ 15 mls/hr 01/05/25 14:30 IV .[id number] PRN Saline Flush Sodium Chloride 250 mls @ 15 mls/hr 01/05/25 14:30 IV .[id number] PRN Additional IVPB Infusion Methylprednisolone Sodium Succinate 40 mg 01/05/25 19:00 01/07/25 13:39 Methylprednisolone Sod Succ 40 Mg/Ml Vial IV 40 mg Q8 LIDA Administration Metoprolol Tartrate 12.5 mg 01/07/25 00:15 01/07/25 09:52 Metoprolol Tartrate 25 Mg Tablet PO 12.5 mg BID LIDA Administration Protocol Nitroglycerin 0.4 mg 01/05/25 13:15 Nitroglycerin (Inpatient Use) 0.4 Mg Tab.Subl SL Q5M PRN CARDIAC/CHEST PAIN Ondansetron HCl 4 mg 01/05/25 13:15 Ondansetron 4 Mg/2 Ml Vial IV Q8H PRN PRN NAUSEA/VOMITING Oxycodone HCl 2.5 - 5 mg 01/05/25 13:15 Oxycodone 5 Mg Tablet PO Q4H PRN PRN Pain Score 4-10 Sodium Chloride 10 - 40 ml 01/05/25 14:30 01/06/25 05:22 0.9% Saline Lock 10 Ml Syringe IV 10 ml UD PRN Administration SALINE FLUSH Trimethoprim/Sulfamethoxazole 0.5 tablet 01/05/25 17:00 01/07/25 17:02 Smz/Tmp Ds Tablet PO 0.5 tablet BIDCM LIDA Administration Lab / Micro Data 01/07/25 06:53 01/07/25 06:53 Labs: Laboratory Results - last 24 hr 01/06/25 00:07: Magnesium 1.8 01/07/25 06:53: WBC 6.4, RBC 2.90 L, Hgb 9.2 L, Hct 29.4 L, MCV 101.4 H, MCH 31.7, MCHC 31.3 L, RDWStd Deviation 51.0 H, RDW Coeff of Alverto 13.7, Plt Count 185, MPV 10.6, Immature Gran % (Auto) 0.800,Neut % (Auto) 86.2 H, Lymph % (Auto) 8.3 L, Sequoyah % (Auto) 4.7, Eos % (Auto) 0.0, Baso % (Auto) 0.0,Absolute Neuts (auto) 5.5, Absolute Lymphs (auto) 0.53 L, Nucleated RBC % 0, Sodium 140, Potassium 4.2, Chloride 97 L, Carbon Dioxide 32.7 H, Anion Gap 11, BUN 52 H, Creatinine 1.96 H, Estim Creat Clear Calc 33.36 L, Est GFR (MDRD) Non-Af 26 L, BUN/Creatinine Ratio 26.3 H, Glucose 123 H, Calcium 8.8, TSH 0.756 Rhythm Strip Rhythm Strip: Sinus Rhythm Rate: 65 Ectopy: None Assessment and Plan . Assessment and plan: HPI 74 F with a history of chronic O2 presentes with progressive shortness of breathover several days. EMS found SpO2 in the 30s; placed on BiPAP with rapid improvement. Initial ABG: PCO2 97.8 mmHg, pH 7.12 (severe hypercapnia and respiratory acidosis). She denies history of sleep study, CPAP, or BiPAPat home. No known history of snoring or witnessed apneas. Denies nocturnal choking or gasping, though detailed sleep history limited. Reports no prior nocturnal noninvasive ventilation use. Currently on BiPAP, tolerating well, improved comfort and breathing. No acute distress. Education provided about likely contribution of obesity hypoventilation syndrome and/or sleep-disordered breathing to recurrent hypercapnic episodes; emphasized importance of sleep study and home noninvasive ventilation. 01/07/25 She feels better O2 3 LPM N/C Transient AF/RVR - now NSR Brisk diuresis w/ furosemide Renal function stable TTE - LVH, dilated LA EXAM GEN NAD VS as above HEENT N/C NECK obese COR RRR CHEST CTA ABD soft EXT modest edema SKIN w/d JARRED NF ASSESSMENT/PLAN 1. Acute and chronic respiratory failure requiring NIV support 2. Suspected underlying and untreated YESSY/OHVS 3. Chronic CHF 4. CKD 5. Former tobacco use 6. PAF - NSR now 7. H/O VTED - chronic NOAC use -supplemental O2 -continue NIV support w/ sleep as tolerated -stop albuterol d/t AF/tachycardia -short course steroids/ABX - would stop soon -chronic A/C -loop diuretics as tolerated -needs outpatient PSG or perhaps just commit to chronic nocturnal NIV use given chronic hypercapnia The entirety of this encounter was done via Telemedicine 01/07/251939 Cosigner Signature (if applicable): CC: ~ Signed [facility]08-10-2025 Progress note Author Laura Sol [facility] Note Date/Time January 07, 2025 3: 57pm [facility] Medical Records Department [address] [place] [address] Progress Note 01/07/25 1054 MR#: [id number] Acct: [id number] Name: DESIRE CHAUDHRY Rep #:[id number] : 1950 74 From: Laura Sol MD PCP: Dr. Zee Jose, DO Status:ADM IN Location: [place] [address]- 1 Subjective Subjective Patient seen and examined. I saw her with her nurse by her bedside. She was lying in bed calmly. She had no active complaints. She did have an episode of A-fib with RVR overnight which resolved with Cardizem bolus. She is saturating just around 90% even on 3 L of oxygen this morning. She denies any shortness ofbreath or cough, palpitations, nausea or vomiting. Review of systems otherwise negative. Objective Data Objective Data Vital Signs: Vital Signs Temp Pulse Resp BP Pulse Ox O2 Del Method O2 Flow Rate 97.7 F L 97 18 148/72 H 91 Nasal Cannula 3 01/07/25 07:29 01/07/25 09:52 01/07/25 07:29 01/07/25 07:29 01/07/25 07:29 01/07/25 07:54 01/07/25 07:54 FiO2 32 01/06/25 03:00 Oxygen Flow Rate (L/min) 3 Oxygen Delivery Method Nasal Cannula Weight: 258 lb 13.163 oz Body Mass Index (BMI) 40.5 Intake & Output: Intake and Output for Last 24 Hours 01/05/25 01/06/25 01/07/25 23:59 23:59 23:59 Intake Total 250 / 250 580 / 580 Output Total 2200 / 2200 3050 / 3950 900 / 900 Balance -1950 / -1950 -2470 / -3370 -900 / -900 Lab / Micro Data 01/07/25 06:53 01/07/25 06:53 Labs: Laboratory Results - last 24 hr 01/06/25 00:07: Magnesium 1.8 01/07/25 06:53: WBC 6.4, RBC 2.90 L, Hgb 9.2 L, Hct 29.4 L, MCV 101.4 H, MCH 31.7, MCHC 31.3 L, RDW Std Deviation 51.0 H, RDW Coeff of Alverto 13.7, Plt Count 185, MPV 10.6, Immature Gran % (Auto) 0.800, Neut % (Auto) 86.2 H, Lymph % (Auto) 8.3 L, Sequoyah % (Auto) 4.7, Eos % (Auto) 0.0, Baso % (Auto) 0.0, Absolute Neuts (auto) 5.5, Absolute Lymphs (auto) 0.53 L, Nucleated RBC % 0, Sodium 140, Potassium 4.2, Chloride 97 L, Carbon Dioxide 32.7 H, Anion Gap 11, BUN 52 H, Creatinine 1.96 H, Estim Creat Clear Calc 33.36 L, Est GFR (MDRD) Non-Af 26 L, BUN/Creatinine Ratio 26.3 H, Glucose 123 H, Calcium 8.8, TSH 0.756 Micro: Microbiology 01/05/25 20:18 Mucosa - Nasopharyngeal Respiratory Panel (PCR) - Final 01/05/25 15:15 Urine, Random Legionella Antigen - Final 01/05/25 15:15 Urine, Random Streptococcus pneumoniae Antigen (M - Final Rhythm Strip Rhythm Strip: Sinus Rhythm Rate: 65 Ectopy: None Physical Exam Const alert, oriented x3 and no apparent distress Constitutional Narrative: Class II obesity. HEENT normocephalic, head/scalp atraumatic and hearing grossly normal bilaterally Eyes EOMs intact bilaterally and conjunctivae normal Neck no lymphadenopathy and supple Resp Resp Narrative: Mildly diminished breath sounds bibasilarly. No wheezes or crackles. On 3 L ofoxygen by nasal cannula. Cardio regular rate, regular rhythm, S1 normal heart sound, S2 normal heart sound and no murmurs GI normal to inspection, nondistended, normoactive bowel sounds, soft to palpation,non-tender and non-distended Extremity normal to inspection, full ROM, normal capillary refill and no clubbing, cyanosis or edema General Extremity: no tenderness to palpation of joints or extremities Skin General Skin Exam: no breakdown Neuro oriented x3, CN's II-XII intact bilaterally and moves all extremities Sensorium / Orientation: awake and alert Motor Exam: general weakness Psych thought process normal, cooperative and affect normal Appearance: appropriate Assessment & Plan Assessment/Plan (1) Increasing shortness of breath: (2) Right lower lobe pneumonia: (3) Hypoxia: PLAN: Plan #Acute on chronic hypoxic and hypercapnic respiratory failure due to COPD exacerbation as well as fluid overload and pneumonia * remains on 3L of oxygen. * Currently on IV levofloxacin and IV Solu-Medrol as well as IV Lasix. * Critical care on board. Breathing treatments and bronchodilators. Titrate oxygen to maintain saturation above 90%. * Chest x-ray showed interstitial and alveolar edema as well as cardiac enlargement. CT of the chest done without contrast as she is already on blood thinners showed bilateral small pleural effusions right greater than left with consolidation in the right lower lobe and possible atelectasis in the left lower lobe as well as minimal pericardial thickening * Breathing treatments bronchodilators. Titrate oxygen to maintain saturation above 90%. * Urine for strep and Legionella negative * In cumulative negative balance by 5.32 L. * #Paroxysmal afib * new onset. Developed afib with RVR overnight and received a cardizem bolus. * Started on oral metoprolol. * 2D echo done on 10/31/2024 showed: Mild concentric left ventricular hypertrophy with EF of 65% and stage I diastolic dysfunction with severely enlarged left atrium and RVSP of 47 mmHg. * continue eliquis and oral metoprolol 12.5mg bid. * TSH WNL * #History of PE: On Eliquis #Hyperlipidemia: On gemfibrozil #History of peripheral neuropathy: On gabapentin. History of CKD stage III: Cr is down to 1.96 today. This is up from 1.79 yesterday but is around previous baselines. Will monitor. DVT prophylaxis: Already on Eliquis CODE STATUS: DNR CCA no intubation * Disposition: Anticipated discharge by tomorrow if patient remains stable in light of new onset A-fib. Charges/Coding Visit Charges Inpatient E&M: 64130 Subs Hosp L2 01/07/25 1107 <Electronically signed by Laura Sol MD> Laura Sol MD Cosigner Signature (if applicable): CC: ~ Signed [facility] Work Phone: [phone] 937-564508-10-2025 Progress note [facility] Medical Records Department [address] [place] [address] Progress Note 01/07/25 1054 MR#: [id number] Acct: [id number] Name: DESIRE CHAUDHRY Rep #:[id number] : 1950 74 From: Laura Sol MD PCP: Dr. Zee Jose, DO Status:ADM IN Location: [place] [address]- 1 Subjective Subjective Patient seen and examined. I saw her with her nurse by her bedside. She was lying in bed calmly. She had no active complaints. She did have an episode of A- fib with RVR overnight which resolved with Cardizem bolus. She is saturating just around 90% even on 3 L of oxygen this morning. She denies anyshortness ofbreath or cough, palpitations, nausea or vomiting. Review of systems otherwise negative. Objective Data Objective Data Vital Signs: Vital Signs Temp Pulse Resp BP Pulse Ox O2 Del Method O2 Flow Rate 97.7 F L 97 18 148/72 H 91 Nasal Cannula 3 01/07/25 07:29 01/07/25 09:52 01/07/25 07:29 01/07/25 07:29 01/07/25 07:29 01/07/25 07:54 01/07/25 07:54 FiO2 32 01/06/25 03:00 Oxygen Flow Rate (L/min) 3 Oxygen Delivery Method Nasal Cannula Weight: 258 lb 13.163 oz Body Mass Index (BMI) 40.5 Intake & Output: Intake and Output for Last 24 Hours 01/05/25 01/06/25 01/07/25 23:59 23:59 23:59 Intake Total 250 / 250 580 / 580 Output Total 2200 / 2200 3050 / 3950 900 / 900 Balance -1950 / -1950 -2470 / -3370 -900 / -900 Lab / Micro Data 01/07/25 06:53 01/07/25 06:53 Labs: Laboratory Results - last 24 hr 01/06/25 00:07: Magnesium 1.8 01/07/25 06:53: WBC 6.4, RBC 2.90 L, Hgb 9.2 L, Hct 29.4 L, MCV 101.4 H, MCH 31.7, MCHC 31.3 L, RDWStd Deviation 51.0 H, RDW Coeff of Alverto 13.7, Plt Count 185, MPV 10.6, Immature Gran % (Auto) 0.800,Neut % (Auto) 86.2 H, Lymph % (Auto) 8.3 L, Sequoyah % (Auto) 4.7, Eos % (Auto) 0.0, Baso % (Auto) 0.0,Absolute Neuts (auto) 5.5, Absolute Lymphs (auto) 0.53 L, Nucleated RBC % 0, Sodium 140, Potassium 4.2, Chloride 97 L, Carbon Dioxide 32.7 H, Anion Gap 11, BUN 52 H, Creatinine 1.96 H, Estim Creat Clear Calc 33.36 L, Est GFR (MDRD) Non-Af 26 L, BUN/Creatinine Ratio 26.3 H, Glucose 123 H, Calcium 8.8, TSH 0.756 Micro: Microbiology 01/05/25 20:18 Mucosa - Nasopharyngeal Respiratory Panel (PCR) - Final 01/05/25 15:15 Urine, Random Legionella Antigen - Final 01/05/25 15:15 Urine, Random Streptococcus pneumoniae Antigen (M - Final Rhythm Strip Rhythm Strip: Sinus Rhythm Rate: 65 Ectopy: None Physical Exam Const alert, oriented x3 and no apparent distress Constitutional Narrative: Class II obesity. HEENT normocephalic, head/scalp atraumatic and hearing grossly normal bilaterally Eyes EOMs intact bilaterally and conjunctivae normal Neck no lymphadenopathy and supple Resp Resp Narrative: Mildly diminished breath sounds bibasilarly. No wheezes or crackles. On 3 L ofoxygen by nasal cannula. Cardio regular rate, regular rhythm, S1 normal heart sound, S2 normal heart sound and no murmurs GI normal to inspection, nondistended, normoactive bowel sounds, soft to palpation,non-tender and non-distended Extremity normal to inspection, full ROM, normal capillary refill and no clubbing, cyanosis or edema General Extremity: no tenderness to palpation of joints or extremities Skin General Skin Exam: no breakdown Neuro oriented x3, CN's II-XII intact bilaterally and moves all extremities Sensorium / Orientation: awake and alert Motor Exam: general weakness Psych thought process normal, cooperative and affect normal Appearance: appropriate Assessment & Plan Assessment/Plan (1) Increasing shortness of breath: (2) Right lower lobe pneumonia: (3) Hypoxia: PLAN: Plan #Acute on chronic hypoxic and hypercapnic respiratory failure due to COPD exacerbation as well as fluid overload and pneumonia * remains on 3L of oxygen. * Currently on IV levofloxacin and IV Solu-Medrol as well as IV Lasix. * Critical care on board. Breathing treatments and bronchodilators. Titrate oxygen to maintain saturation above 90%. * Chest x-ray showed interstitial and alveolar edema as well as cardiac enlargement. CT of the chest done without contrast as she is already on blood thinners showed bilateral small pleural effusionsright greater than left with consolidation in the right lower lobe and possible atelectasis in the left lower lobe as well as minimal pericardial thickening * Breathing treatments bronchodilators. Titrate oxygen to maintain saturation above 90%. * Urine for strep and Legionella negative * In cumulative negative balance by 5.32 L. * #Paroxysmal afib * new onset. Developed afib with RVR overnight and received a cardizem bolus. * Started on oral metoprolol. * 2D echo done on 10/31/2024 showed: Mild concentric left ventricular hypertrophy with EF of 65% andstage I diastolic dysfunction with severely enlarged left atrium and RVSP of 47 mmHg. * continue eliquis and oral metoprolol 12.5mg bid. * TSH WNL * #History of PE: On Eliquis #Hyperlipidemia: On gemfibrozil #History of peripheral neuropathy: On gabapentin. History of CKD stage III: Cr is down to 1.96 today. This is up from 1.79 yesterday but is around previous baselines. Will monitor. DVT prophylaxis: Already on Eliquis CODE STATUS: DNR CCA no intubation * Disposition: Anticipated discharge by tomorrow if patient remains stable in light of new onset A-fib. Charges/Coding Visit Charges Inpatient E&M: 16638 Subs Hosp L2 01/07/25 4732 Laura Sol MD Cosigner Signature (if applicable): CC: ~ Signed [facility]08-10-2025 Progress note Author Daisy Nicole [facility] Note Date/Time January 06, 2025 11: 28pm [facility] Medical Records Department [address] [place] [address] Progress Note - Hospitalist 01/06/252323 MR#: [id number] Acct: [id number] Name: DESIRE CHAUDHRY Rep #:[id number] : 1950 74 From: Daisy Rivera MD PCP: Dr. Zee Jose, DO Status:ADM IN Location: [place] [address] Hospitalist Note Patient with onset of chest fluttering, on monitor had onset PAF with RVR, does not appear to have history, already on eliquis. Will administer cardizem bolus and add oral BB regimen pending response to bolus. Recent ECHO 10/31/24 noted. Will obtain mag, TSH levels. 01/06/252327 <Electronically signed by Daisy Rivera MD> Cosigner Signature (if applicable): CC: ~ Signed [facility] Work Phone: [phone] 544-794508-09-2025 Progress note [facility] Medical Records Department [address] [place] [address] Progress Note - Hospitalist 01/06/254 MR#: [id number] Acct: [id number] Name: DESIRE CHAUDHRY Rep #:[id number] : 1950 74 From: Daisy Rivera MD PCP: Dr. Zee Jose, DO Status:ADM IN Location: [place] [address] Hospitalist Note Patient with onset of chest fluttering, on monitor had onset PAF with RVR, does not appear to have history, already on eliquis. Will administer cardizem bolus and add oral BB regimen pending responseto bolus. Recent ECHO 10/31/24 noted. Will obtain mag, TSH levels. 01/06/252327 Cosigner Signature (if applicable): CC: ~ Signed [facility]08-09-2025 [facility] Note Date/Time January 06, 2025 4:3 9pm [facility] Medical Records Department [address] [place] [address] Progress Note 01/06/25 1635 MR#: [id number] Acct: [id number] Name: DESIRE CHAUDHRY Rep #:[id number] : 1950 74 From: Laura Sol MD PCP: Dr. Zee Jose, DO Status:ADM IN Location: [place] [address] Subjective Subjective Patient seen and examined. She says she is feeling much better today. She is down to 3 L of oxygen. I saw her with her nurse by her bedside. Patient was requesting to be discharged home. I explained to her that she was very short ofbreath yesterday requiring BiPAP and just got on the oxygen by nasal cannula today. I therefore think it is advisable to keep her 1 more day to ensure she is further optimized. She insisted on leaving and wanted to sign out AMA but her family member came in and spoke to her subsequently and calmed her down. She therefore agreed to stay for 1 more night. Has been hemodynamically stable. Objective Data Objective Data Vital Signs: Vital Signs Temp Pulse Resp BP Pulse Ox O2 Del Method O2 Flow Rate 98.5 F 72 18 141/65 H 93 Nasal Cannula 3 01/06/25 13:32 01/06/25 13:32 01/06/25 13:32 01/06/25 13:32 01/06/25 13:32 01/06/25 14:00 01/06/25 14:00 FiO2 32 01/06/25 03:00 Oxygen Flow Rate (L/min) 3 Oxygen Delivery Method Nasal Cannula Weight: 258 lb 13.163 oz Body Mass Index (BMI) 40.5 Intake & Output: Intake and Output for Last 24 Hours 01/04/25 01/05/25 01/06/25 23:59 23:59 23:59 Intake Total 250 / 250 180 / 180 Output Total 2200 / 2200 1400 / 1400 Balance -1950 / -1950 -1220 / -1220 Lab / Micro Data 01/06/25 05:31 01/06/25 05:31 Labs: Laboratory Results - last 24 hr 01/06/25 05:31: WBC 4.8, RBC 2.78 L, Hgb 8.8 L, Hct 29.1 L, MCV 104.7 H, MCH 31.7, MCHC 30.2 L, RDW Std Deviation 53.3 H, RDW Coeff of Alverto 14.0, Plt Count 165, MPV 11.2, Immature Gran % (Auto) 1.000 H, Neut % (Auto) 83.7 H, Lymph % (Auto) 8.5 L, Sequoyah % (Auto) 6.6, Eos % (Auto) 0.0, Baso % (Auto) 0.2, Absolute Neuts (auto) 4.0, Absolute Lymphs (auto) 0.41 L, Nucleated RBC % 0, Sodium 140, Potassium 4.9, Chloride 98, Carbon Dioxide 30.2, Anion Gap 11, BUN 42 H, Creatinine 2.00 H, Estim Creat Clear Calc 32.69 L, Est GFR (MDRD) Non-Af 26 L, BUN/Creatinine Ratio 20.8 H, Glucose 118 H, Calcium 9.0 Micro: Microbiology 01/05/25 20:18 Mucosa - Nasopharyngeal Respiratory Panel (PCR) - Final 01/05/25 15:15 Urine, Random Legionella Antigen - Final 01/05/25 15:15 Urine, Random Streptococcus pneumoniae Antigen (M - Final ABG Data ABG results: ABG 01/05/25 19:26 Specimen Type ART Sample Site R Radial pH 7.34 L Bicarbonate Actual 35.7 H Total CO2 38 Base Excess 10 H O2 Saturation 88 L O2 % 30.0 ABG pCO2 65.6 H ABG pO2 59 L Rhiannon Test Positive O2 Delivery Device BiPAP Vent Mode AVAPS Tidal Volume 450.0 POC PEEP 8 Rhythm Strip Rhythm Strip: Sinus Rhythm Rate: 65 Ectopy: None Physical Exam Const alert, oriented x3 and no apparent distress Constitutional Narrative: Class II obesity. HEENT normocephalic, head/scalp atraumatic and hearing grossly normal bilaterally Eyes EOMs intact bilaterally and conjunctivae normal Neck no lymphadenopathy and supple Resp Resp Narrative: Mildly diminished breath sounds bibasilarly. No wheezes or crackles. On 3 L ofoxygen by nasal cannula. Cardio regular rate, regular rhythm, S1 normal heart sound, S2 normal heart sound and no murmurs GI normal to inspection, nondistended, normoactive bowel sounds, soft to palpation,non-tender and non-distended Extremity normal to inspection, full ROM, normal capillary refill and no clubbing, cyanosis or edema General Extremity: no tenderness to palpation of joints or extremities Skin General Skin Exam: no breakdown Neuro oriented x3, CN's II-XII intact bilaterally and moves all extremities Sensorium / Orientation: awake and alert Motor Exam: general weakness Psych thought process normal, cooperative and affect normal Appearance: appropriate Assessment & Plan Assessment/Plan (1) Increasing shortness of breath: (2) Right lower lobe pneumonia: (3) Hypoxia: PLAN: Plan #Acute on chronic hypoxic and hypercapnic respiratory failure due to COPD exacerbation as well as fluid overload and pneumonia * Off BiPAP and on 3 L of oxygen by nasal cannula. * Currently on IV levofloxacin and IV Solu-Medrol as well as IV Lasix. * Critical care on board. Breathing treatments and bronchodilators. Titrate oxygen to maintain saturation above 90%. * Chest x-ray showed interstitial and alveolar edema as well as cardiac enlargement. CT of the chest done without contrast as she is already on blood thinners showed bilateral small pleural effusions right greater than left with consolidation in the right lower lobe and possible atelectasis in the left lower lobe as well as minimal pericardial thickening * Breathing treatments bronchodilators. Consult pulmonology. Titrate oxygen to maintain saturation above 90%. * Urine for strep and Legionella negative * #History of PE: On Eliquis #Hyperlipidemia: On gemfibrozil #History of peripheral neuropathy: On gabapentin. History of CKD stage III: Creatinine is 2 today. This is up from 1.79 yesterdaybut is around previous baselines. Will monitor. DVT prophylaxis: Already on Eliquis CODE STATUS: DNR CCA no intubation * Disposition: Anticipate discharge tomorrow if she remains medically stable Charges/Coding Visit Charges Inpatient E&M: 47115 Subs Hosp L2 01/06/25 1639 <Electronically signed by Laura Sol MD> Laura Sol MD Cosigner Signature (if applicable): CC: ~ Signed [facility] Work Phone: [phone] [id number] Progress note [facility] Medical Records Department [address] [place] [address] Progress Note 01/06/25 1635 MR#: [id number] Acct: [id number] Name: DESIRE CHAUDHRY Rep #:[id number] : 1950 74 From: Laura Sol MD PCP: Dr. Zee Jose, DO Status:ADM IN Location: [place] [address] Subjective Subjective Patient seen and examined. She says she is feeling much better today. She is down to 3 L of oxygen.I saw her with her nurse by her bedside. Patient was requesting to be discharged home. I explained to her that she was very short ofbreath yesterday requiring BiPAP and just got on the oxygen by nasal cannula today. I therefore think it is advisable to keep her 1 more day to ensure she is further optimized. She insisted on leaving and wanted to sign out AMA but her family member came in and spoketo her subsequently and calmed her down. She therefore agreed to stay for 1 more night. Has been hemodynamically stable. Objective Data Objective Data Vital Signs: Vital Signs Temp Pulse Resp BP Pulse Ox O2 Del Method O2 Flow Rate 98.5 F 72 18 141/65 H 93 Nasal Cannula 3 01/06/25 13:32 01/06/25 13:32 01/06/25 13:32 01/06/25 13:32 01/06/25 13:32 01/06/25 14:00 01/06/25 14:00 FiO2 32 01/06/25 03:00 Oxygen Flow Rate (L/min) 3 Oxygen Delivery Method Nasal Cannula Weight: 258 lb 13.163 oz Body Mass Index (BMI) 40.5 Intake & Output: Intake and Output for Last 24 Hours 01/04/25 01/05/25 01/06/25 23:59 23:59 23:59 Intake Total 250 / 250 180 / 180 Output Total 2200 / 2200 1400 / 1400 Balance -1950 / -1950 -1220 / -1220 Lab / Micro Data 01/06/25 05:31 01/06/25 05:31 Labs: Laboratory Results - last 24 hr 01/06/25 05:31: WBC 4.8, RBC 2.78 L, Hgb 8.8 L, Hct 29.1 L, MCV 104.7 H, MCH 31.7, MCHC 30.2 L, RDWStd Deviation 53.3 H, RDW Coeff of Alverto 14.0, Plt Count 165, MPV 11.2, Immature Gran % (Auto) 1.000 H, Neut % (Auto) 83.7 H, Lymph % (Auto) 8.5 L, Sequoyah % (Auto) 6.6, Eos % (Auto) 0.0, Baso % (Auto) 0.2, Absolute Neuts (auto) 4.0, Absolute Lymphs (auto) 0.41 L, Nucleated RBC % 0, Sodium 140, Potassium 4.9, Chloride 98, Carbon Dioxide 30.2, Anion Gap 11, BUN 42 H, Creatinine 2.00 H, Estim Creat Clear Calc 32.69 L, Est GFR (MDRD) Non-Af 26 L, BUN/Creatinine Ratio 20.8 H, Glucose 118 H, Calcium 9.0 Micro: Microbiology 01/05/25 20:18 Mucosa - Nasopharyngeal Respiratory Panel (PCR) - Final 01/05/25 15:15 Urine, Random Legionella Antigen - Final 01/05/25 15:15 Urine, Random Streptococcus pneumoniae Antigen (M - Final ABG Data ABG results: ABG 01/05/25 19:26 Specimen Type ART Sample Site R Radial pH 7.34 L Bicarbonate Actual 35.7 H Total CO2 38 Base Excess 10 H O2 Saturation 88 L O2 % 30.0 ABG pCO2 65.6 H ABG pO2 59 L Rhiannon Test Positive O2 Delivery Device BiPAP Vent Mode AVAPS Tidal Volume 450.0 POC PEEP 8 Rhythm Strip Rhythm Strip: Sinus Rhythm Rate: 65 Ectopy: None Physical Exam Const alert, oriented x3 and no apparent distress Constitutional Narrative: Class II obesity. HEENT normocephalic, head/scalp atraumatic and hearing grossly normal bilaterally Eyes EOMs intact bilaterally and conjunctivae normal Neck no lymphadenopathy and supple Resp Resp Narrative: Mildly diminished breath sounds bibasilarly. No wheezes or crackles. On 3 L ofoxygen by nasal cannula. Cardio regular rate, regular rhythm, S1 normal heart sound, S2 normal heart sound and no murmurs GI normal to inspection, nondistended, normoactive bowel sounds, soft to palpation,non-tender and non-distended Extremity normal to inspection, full ROM, normal capillary refill and no clubbing, cyanosis or edema General Extremity: no tenderness to palpation of joints or extremities Skin General Skin Exam: no breakdown Neuro oriented x3, CN's II-XII intact bilaterally and moves all extremities Sensorium / Orientation: awake and alert Motor Exam: general weakness Psych thought process normal, cooperative and affect normal Appearance: appropriate Assessment & Plan Assessment/Plan (1) Increasing shortness of breath: (2) Right lower lobe pneumonia: (3) Hypoxia: PLAN: Plan #Acute on chronic hypoxic and hypercapnic respiratory failure due to COPD exacerbation as well as fluid overload and pneumonia * Off BiPAP and on 3 L of oxygen by nasal cannula. * Currently on IV levofloxacin and IV Solu-Medrol as well as IV Lasix. * Critical care on board. Breathing treatments and bronchodilators. Titrate oxygen to maintain saturation above 90%. * Chest x-ray showed interstitial and alveolar edema as well as cardiac enlargement. CT of the chest done without contrast as she is already on blood thinners showed bilateral small pleural effusionsright greater than left with consolidation in the right lower lobe and possible atelectasis in the left lower lobe as well as minimal pericardial thickening * Breathing treatments bronchodilators. Consult pulmonology. Titrate oxygen to maintain saturation above 90%. * Urine for strep and Legionella negative * #History of PE: On Eliquis #Hyperlipidemia: On gemfibrozil #History of peripheral neuropathy: On gabapentin. History of CKD stage III: Creatinine is 2 today. This is up from 1.79 yesterdaybut is around previous baselines. Will monitor. DVT prophylaxis: Already on Eliquis CODE STATUS: DNR CCA no intubation * Disposition: Anticipate discharge tomorrow if she remains medically stable Charges/Coding Visit Charges Inpatient E&M: 94258 Subs Hosp L2 01/06/25 1639 Laura Sol MD Cosigner Signature (if applicable): CC: ~ Signed [facility]08-09-2025 Progress note Author Matthew Parada [facility] Note Date/Time January 06, 2025 1:2 7pm [facility] Medical Records Department [address] [place] [address] Progress Note - Bandage Winding Machine Operator 01/06/25 1326 MR#: [id number] Acct: [id number] Name: DESIRE CHAUDHRY Rep #:[id number] : 1950 74 From: Matthew Cheatham PCP: Dr. Zee Jose, DO Status:ADM IN Location: [place] [address] Objective Data Objective Data Vital Signs: Vital Signs Last response 3 Temperature 37.1 C 01/06/25 08:03 Temperature Source Oral 01/06/25 08:03 Pulse Rate 74 01/06/25 13:11 Pulse Strength Normal (2+) 01/06/25 10:00 Respiratory Rate 18 01/06/25 13:11 Respiratory Effort Normal, Non-Labored 01/06/25 10:00 Respiratory Depth Normal 01/06/25 10:00 Respiratory Pattern Normal 01/06/25 13:11 Blood Pressure 158/64 H 01/06/25 08:03 Blood Pressure Mean 95 01/06/25 08:03 Pulse Ox 93 01/06/25 08:03 Oxygen Delivery Method Nasal Cannula 01/06/25 10:00 Oxygen Flow Rate (L/min) 3 01/06/25 10:00 Fraction of Inspired Oxygen (FIO2) 32 01/06/25 03:00 I&O: I&O Last 24 Hours 3 01/05/25 01/06/25 01/06/25 23:59 11:59 23:59 Intake Total 250 / 250 180 / 180 Output Total 2200 / 2200 1000 / 1000 Balance -1950 / -1950 -820 / -820 I&O: Total Stay 3 01/05/25 09:50 thru 01/06/25 09:40 Intake Total 430 Output Total 3200 Balance -2770 Current Meds Ordered / Administered: Current meds ordered / Administered 3 Generic Name Dose Route Start Last Admin Trade Name Freq PRN Reason Stop Dose Admin Acetaminophen 650 mg 01/05/25 13:15 Acetaminophen 325 Mg Tablet PO Q6H PRN PRN Pain 1-10 Or Fever >100.7 Albuterol Sulfate 2.5 mg 01/05/25 13:30 01/06/25 13:11 Albuterol 2.5 Mg/3 Ml Vial.Neb. INHALATION 2.5 mg Q6HWA.RT LIDA Administration Apixaban 5 mg 01/05/25 22:00 01/06/25 10:42 Apixaban 5 Mg Tablet PO 5 mg BID LIDA Administration Budesonide 0.5 mg 01/05/25 13:30 01/06/25 06:48 Budesonide Respules 0.5 Mg/2 Ml Ampul.Neb. INHALATION 0.5 mg Q12H.RT LIDA Administration Furosemide 40 mg 01/05/25 13:15 01/06/25 10:43 Furosemide 40 Mg/4 Ml Vial IV 40 mg BIDLX LIDA Administration Protocol Gabapentin 300 mg 01/05/25 22:00 01/06/25 10:46 Gabapentin 300 Mg Capsule PO 300 mg Q12 LIDA Administration Gemfibrozil 600 mg 01/05/25 22:00 01/06/25 10:43 Gemfibrozil 600 Mg Tablet PO 600 mg BID LIDA Administration Levofloxacin 750 mg in 150 mls @ 100 mls/hr 01/05/25 13:15 01/05/25 19:00 Levaquin Iv IV Infused Q48 LIDA Infusion Sodium Chloride 250 mls @ 15 mls/hr 01/05/25 14:30 IV .[id number] PRN Saline Flush Sodium Chloride 250 mls @ 15 mls/hr 01/05/25 14:30 IV .[id number] PRN Additional IVPB Infusion Methylprednisolone Sodium Succinate 40 mg 01/05/25 19:00 01/06/25 05:22 Methylprednisolone Sod Succ 40 Mg/Ml Vial IV 40 mg Q8 LIDA Administration Nitroglycerin 0.4 mg 01/05/25 13:15 Nitroglycerin (Inpatient Use) 0.4 Mg Tab.Subl SL Q5M PRN CARDIAC/CHEST PAIN Ondansetron HCl 4 mg 01/05/25 13:15 Ondansetron 4 Mg/2 Ml Vial IV Q8H PRN PRN NAUSEA/VOMITING Oxycodone HCl 2.5 - 5 mg 01/05/25 13:15 Oxycodone 5 Mg Tablet PO Q4H PRN PRN Pain Score 4-10 Sodium Chloride 10 - 40 ml 01/05/25 14:30 01/06/25 05:22 0.9% Saline Lock 10 Ml Syringe IV 10 ml UD PRN Administration SALINE FLUSH Trimethoprim/Sulfamethoxazole 0.5 tablet 01/05/25 17:00 01/06/25 08:06 Smz/Tmp Ds Tablet PO 0.5 tablet BIDCM LIDA Administration Lab / Micro Data 01/06/25 05:31 01/06/25 05:31 Labs: Laboratory Results - last 24 hr 01/06/25 05:31: WBC 4.8, RBC 2.78 L, Hgb 8.8 L, Hct 29.1 L, MCV 104.7 H, MCH 31.7, MCHC 30.2 L, RDW Std Deviation 53.3 H, RDW Coeff of Alverto 14.0, Plt Count 165, MPV 11.2, Immature Gran % (Auto) 1.000 H, Neut % (Auto) 83.7 H, Lymph % (Auto) 8.5 L, Sequoyah % (Auto) 6.6, Eos % (Auto) 0.0, Baso % (Auto) 0.2, Absolute Neuts (auto) 4.0, Absolute Lymphs (auto) 0.41 L, Nucleated RBC % 0, Sodium 140, Potassium 4.9, Chloride 98, Carbon Dioxide 30.2, Anion Gap 11, BUN 42 H, Creatinine 2.00 H, Estim Creat Clear Calc 32.69 L, Est GFR (MDRD) Non-Af 26 L, BUN/Creatinine Ratio 20.8 H, Glucose 118 H, Calcium 9.0 Micro: Microbiology 01/05/25 20:18 Mucosa - Nasopharyngeal Respiratory Panel (PCR) - Final 01/05/25 15:15 Urine, Random Legionella Antigen - Final 01/05/25 15:15 Urine, Random Streptococcus pneumoniae Antigen (M - Final ABG Data ABG results: ABG 01/05/25 19:26 Specimen Type ART Sample Site R Radial pH 7.34 L Bicarbonate Actual 35.7 H Total CO2 38 Base Excess 10 H O2 Saturation 88 L O2 % 30.0 ABG pCO2 65.6 H ABG pO2 59 L Rhiannon Test Positive O2 Delivery Device BiPAP Vent Mode AVAPS Tidal Volume 450.0 POC PEEP 8 Rhythm Strip Rhythm Strip: Sinus Rhythm Rate: 65 Ectopy: None Assessment and Plan . Assessment and plan: Chart and data reviewed d/w ICU staff She is improved - ABG noted Continue supplemental O2, NIV support w/ sleep, inhaled BD, loop diuretics, short course steroids 01/06/25 1327 <Electronically signed by Matthew Parada MD> Cosigner Signature (if applicable): CC: ~ Signed [facility] Work Phone: [phone] 610-606908-09-2025 Progress note [facility] Medical Records Department [address] [place] [address] Progress Note - Bandage Winding Machine Operator 01/06/25 1326 MR#: [id number] Acct: [id number] Name: DESIRE CHAUDHRY Rep #:[id number] : 1950 74 From: Matthew Cheatham PCP: Dr. Zee Jose, DO Status:ADM IN Location: [place] [address] Objective Data Objective Data Vital Signs: Vital Signs Last response 3 Temperature 37.1 C 01/06/25 08:03 Temperature Source Oral 01/06/25 08:03 Pulse Rate 74 01/06/25 13:11 Pulse Strength Normal (2+) 01/06/25 10:00 Respiratory Rate 18 01/06/25 13:11 Respiratory Effort Normal, Non-Labored 01/06/25 10:00 Respiratory Depth Normal 01/06/25 10:00 Respiratory Pattern Normal 01/06/25 13:11 Blood Pressure 158/64 H 01/06/25 08:03 Blood Pressure Mean 95 01/06/25 08:03 Pulse Ox 93 01/06/25 08:03 Oxygen Delivery Method Nasal Cannula 01/06/25 10:00 Oxygen Flow Rate (L/min) 3 01/06/25 10:00 Fraction of Inspired Oxygen (FIO2) 32 01/06/25 03:00 I&O: I&O Last 24 Hours 3 01/05/25 01/06/25 01/06/25 23:59 11:59 23:59 Intake Total 250 / 250 180 / 180 Output Total 2200 / 2200 1000 / 1000 Balance -1950 / -1950 -820 / -820 I&O: Total Stay 3 01/05/25 09:50 thru 01/06/25 09:40 Intake Total 430 Output Total 3200 Balance -2770 Current Meds Ordered / Administered: Current meds ordered / Administered 3 Generic Name Dose Route Start Last Admin Trade Name Fretyler PRN Reason Stop Dose Admin Acetaminophen 650 mg 01/05/25 13:15 Acetaminophen 325 Mg Tablet PO Q6H PRN PRN Pain 1-10 Or Fever >100.7 Albuterol Sulfate 2.5 mg 01/05/25 13:30 01/06/25 13:11 Albuterol 2.5 Mg/3 Ml Vial.Neb. INHALATION 2.5 mg Q6HWA.RT LIDA Administration Apixaban 5 mg 01/05/25 22:00 01/06/25 10:42 Apixaban 5 Mg Tablet PO 5 mg BID LIDA Administration Budesonide 0.5 mg 01/05/25 13:30 01/06/25 06:48 Budesonide Respules 0.5 Mg/2 Ml Ampul.Neb. INHALATION 0.5 mg Q12H.RT LIDA Administration Furosemide 40 mg 01/05/25 13:15 01/06/25 10:43 Furosemide 40 Mg/4 Ml Vial IV 40 mg BIDLX LIDA Administration Protocol Gabapentin 300 mg 01/05/25 22:00 01/06/25 10:46 Gabapentin 300 Mg Capsule PO 300 mg Q12 LIDA Administration Gemfibrozil 600 mg 01/05/25 22:00 01/06/25 10:43 Gemfibrozil 600 Mg Tablet PO 600 mg BID LIDA Administration Levofloxacin 750 mg in 150 mls @ 100 mls/hr 01/05/25 13:15 01/05/25 19:00 Levaquin Iv IV Infused Q48 LIDA Infusion Sodium Chloride 250 mls @ 15 mls/hr 01/05/25 14:30 IV .[id number] PRN Saline Flush Sodium Chloride 250 mls @ 15 mls/hr 01/05/25 14:30 IV .[id number] PRN Additional IVPB Infusion Methylprednisolone Sodium Succinate 40 mg 01/05/25 19:00 01/06/25 05:22 Methylprednisolone Sod Succ 40 Mg/Ml Vial IV 40 mg Q8 LIDA Administration Nitroglycerin 0.4 mg 01/05/25 13:15 Nitroglycerin (Inpatient Use) 0.4 Mg Tab.Subl SL Q5M PRN CARDIAC/CHEST PAIN Ondansetron HCl 4 mg 01/05/25 13:15 Ondansetron 4 Mg/2 Ml Vial IV Q8H PRN PRN NAUSEA/VOMITING Oxycodone HCl 2.5 - 5 mg 01/05/25 13:15 Oxycodone 5 Mg Tablet PO Q4H PRN PRN Pain Score 4-10 Sodium Chloride 10 - 40 ml 01/05/25 14:30 01/06/25 05:22 0.9% Saline Lock 10 Ml Syringe IV 10 ml UD PRN Administration SALINE FLUSH Trimethoprim/Sulfamethoxazole 0.5 tablet 01/05/25 17:00 01/06/25 08:06 Smz/Tmp Ds Tablet PO 0.5 tablet BIDCM LIDA Administration Lab / Micro Data 01/06/25 05:31 01/06/25 05:31 Labs: Laboratory Results - last 24 hr 01/06/25 05:31: WBC 4.8, RBC 2.78 L, Hgb 8.8 L, Hct 29.1 L, MCV 104.7 H, MCH 31.7, MCHC 30.2 L, RDWStd Deviation 53.3 H, RDW Coeff of Alverto 14.0, Plt Count 165, MPV 11.2, Immature Gran % (Auto) 1.000 H, Neut % (Auto) 83.7 H, Lymph % (Auto) 8.5 L, Sequoyah % (Auto) 6.6, Eos % (Auto) 0.0, Baso % (Auto) 0.2, Absolute Neuts (auto) 4.0, Absolute Lymphs (auto) 0.41 L, Nucleated RBC % 0, Sodium 140, Potassium 4.9, Chloride 98, Carbon Dioxide 30.2, Anion Gap 11, BUN 42 H, Creatinine 2.00 H, Estim Creat Clear Calc 32.69 L, Est GFR (MDRD) Non-Af 26 L, BUN/Creatinine Ratio 20.8 H, Glucose 118 H, Calcium 9.0 Micro: Microbiology 01/05/25 20:18 Mucosa - Nasopharyngeal Respiratory Panel (PCR) - Final 01/05/25 15:15 Urine, Random Legionella Antigen - Final 01/05/25 15:15 Urine, Random Streptococcus pneumoniae Antigen (M - Final ABG Data ABG results: ABG 01/05/25 19:26 Specimen Type ART Sample Site R Radial pH 7.34 L Bicarbonate Actual 35.7 H Total CO2 38 Base Excess 10 H O2 Saturation 88 L O2 % 30.0 ABG pCO2 65.6 H ABG pO2 59 L Rhiannon Test Positive O2 Delivery Device BiPAP Vent Mode AVAPS Tidal Volume 450.0 POC PEEP 8 Rhythm Strip Rhythm Strip: Sinus Rhythm Rate: 65 Ectopy: None Assessment and Plan . Assessment and plan: Chart and data reviewed d/w ICU staff She is improved - ABG noted Continue supplemental O2, NIV support w/ sleep, inhaled BD, loop diuretics, short course steroids 01/06/25 1327 Cosigner Signature (if applicable): CC: ~ Signed [facility]08-09-2025 Consult note Author Raji Hammond [facility] Note Date/Time January 06, 2025 4:5 1am [facility] Medical Records Department [address] [place] [address] Consultation - Bandage Winding Machine Operator 01/06/25 0332 MR#: [id number] Acct: [id number] Name: DESIRE CHAUDHRY Rep #:[id number] : 1950 74 From: Raji Hammond MD PCP: Dr. Zee Jose, DO Status:ADM IN Location: [place] [address] HPI Consult Data Date of Consult: 01/06/25 HPI Narrative HPI Narrative: DESIRE CHAUDHRY is a 74 F with a history of chronic O2 presentes with progressive shortness of breath over several days. EMS found SpO2 in the 30s; placed on BiPAP with rapid improvement. Initial ABG: PCO2 97.8 mmHg, pH 7.12 (severe hypercapnia and respiratory acidosis). She denies history of sleep study, CPAP, or BiPAP at home. No known history of snoring or witnessed apneas. Denies nocturnal choking or gasping, though detailed sleep history limited. Reports no prior nocturnal noninvasive ventilation use. Currently on BiPAP, tolerating well, improved comfort and breathing. No acute distress. Education provided about likely contribution of obesity hypoventilation syndrome and/or sleep-disordered breathing to recurrent hypercapnic episodes; emphasized importance of sleep study and home noninvasive ventilation. [facility] Medical History Chronic anemia Constipation Emphysema lung Thrombocytopenia Stroke/cerebrovascular accident History of pulmonary embolism HLD (hyperlipidemia) Chronic back pain COPD (chronic obstructive pulmonary disease) HTN (hypertension) Home Medications ?Medication ?Instructions ?Recorded ?Last Taken ?Type gemfibrozil 600 mg tablet 600 mg PO BID cholesteol 09/1610/31/24 History apixaban 5 mg tablet (Eliquis) 5 mg PO BID blood thinn er 01/21/24 10/31/24 History sulfamethoxazole 400 1 tab PO BID infection 10/3110/31/24 History mg-trimethoprim 80 mg tablet albuterol sulfate 90 mcg/actuation 2 puff inhalation Q 6H PRN PRN 01/05/25 Unknown History aerosol inhaler wheezing budesonide-formoterol HFA 80 2 puff inhalation Q12H CO PD 01/05/25 Unknown History mcg-4.5 mcg/actuation aerosol inhaler (Breyna) gabapentin 300 mg capsule 300 mg PO Q12H 01/05/25 Unkn own History sennosides 8.6 mg-docusate sodium 2 tab-cap PO BID PRN constipation 01/05/25 Unknown History 50 mg tablet (Senna with Docusate Sodium) Allergy/AdvReac Type Severity Reaction Status Date / Time No Known Allergies Allergy Verified 01/05/25 09:52 Family History Mother Heart disease Father Heart disease Surgical History Previous back surgery Social History housing: assisted living facility Smoking Status: Former smoker alcohol intake: never substance use type: does not use Objective Data Objective Data Vital Signs: Vital Signs Last response 3 Temperature 36.7 C 01/05/25 20:13 Temperature Source Temporal 01/05/25 20:13 Pulse Rate 85 01/05/25 23:25 Pulse Strength Normal (2+) 01/05/25 20:15 Respiratory Rate 20 H 01/05/25 23:25 Respiratory Effort Normal, Non-Labored 01/05/25 20:15 Respiratory Depth Normal 01/05/25 20:15 Respiratory Pattern Normal 01/05/25 23:25 Blood Pressure 145/68 H 01/05/25 20:13 Blood Pressure Mean 93 01/05/25 20:13 Pulse Ox 92 01/05/25 23:25 Oxygen Delivery Method Nasal Cannula 01/05/25 21:08 Oxygen Flow Rate (L/min) 2.5 01/05/25 21:08 Fraction of Inspired Oxygen (FIO2) 32 01/05/25 23:25 I&O: I&O Last 24 Hours 3 01/05/25 01/05/25 01/06/25 11:59 23:59 11:59 Intake Total 250 / 250 Output Total 2200 / 2200 Balance -1950 / -1950 I&O: Total Stay 3 01/05/25 09:50 thru 01/05/25 23:30 Intake Total 250 Output Total 2200 Balance -1949 Current Meds Ordered / Administered: Current meds ordered / Administered 3 Generic Name Dose Route Start Last Admin Trade Name Freq PRN Reason Stop Dose Admin Acetaminophen 650 mg 01/05/25 13:15 Acetaminophen 325 Mg Tablet PO Q6H PRN PRN Pain 1-10 Or Fever >100.7 Albuterol Sulfate 2.5 mg 01/05/25 13:30 01/05/25 19:56 Albuterol 2.5 Mg/3 Ml Vial.Neb. INHALATION 2.5 mg Q6HWA.RT LIDA Administration Apixaban 5 mg 01/05/25 22:00 01/05/25 20:28 Apixaban 5 Mg Tablet PO 5 mg BID LIDA Administration Budesonide 0.5 mg 01/05/25 13:30 01/05/25 19:56 Budesonide Respules 0.5 Mg/2 Ml Ampul.Neb. INHALATION 0.5 mg Q12H.RT LIDA Administration Furosemide 40 mg 01/05/25 13:15 01/05/25 19:00 Furosemide 40 Mg/4 Ml Vial IV 40 mg BIDLX LIDA Administration Protocol Gabapentin 300 mg 01/05/25 22:00 01/05/25 20:28 Gabapentin 300 Mg Capsule PO 300 mg Q12 LIDA Administration Gemfibrozil 600 mg 01/05/25 22:00 01/05/25 20:28 Gemfibrozil 600 Mg Tablet PO 600 mg BID LIDA Administration Levofloxacin 750 mg in 150 mls @ 100 mls/hr 01/05/25 13:15 01/05/25 19:00 Levaquin Iv IV Infused Q48 LIDA Infusion Sodium Chloride 250 mls @ 15 mls/hr 01/05/25 14:30 IV .[id number] PRN Saline Flush Sodium Chloride 250 mls @ 15 mls/hr 01/05/25 14:30 IV .[id number] PRN Additional IVPB Infusion Methylprednisolone Sodium Succinate 40 mg 01/05/25 19:00 01/05/25 20:16 Methylprednisolone Sod Succ 40 Mg/Ml Vial IV 40 mg Q8 LIDA Administration Nitroglycerin 0.4 mg 01/05/25 13:15 Nitroglycerin (Inpatient Use) 0.4 Mg Tab.Subl SL Q5M PRN CARDIAC/CHEST PAIN Ondansetron HCl 4 mg 01/05/25 13:15 Ondansetron 4 Mg/2 Ml Vial IV Q8H PRN PRN NAUSEA/VOMITING Oxycodone HCl 2.5 - 5 mg 01/05/25 13:15 Oxycodone 5 Mg Tablet PO Q4H PRN PRN Pain Score 4-10 Sodium Chloride 10 - 40 ml 01/05/25 14:30 01/05/25 20:16 0.9% Saline Lock 10 Ml Syringe IV 10 ml UD PRN Administration SALINE FLUSH Trimethoprim/Sulfamethoxazole 0.5 tablet 01/05/25 17:00 01/05/25 17:06 Smz/Tmp Ds Tablet PO 0.5 tablet BIDCM LIDA Administration Physical Exam Narrative General: Alert, talking, comfortable on BiPAP Resp: Improved oxygenation on BiPAP Neuro: No focal deficits Const alert and oriented x3 General Appearance: cooperative Eyes PERRL Neck full ROM Resp Effort and Inspection: able to speak in complete sentences GI normal to inspection, nondistended, normoactive bowel sounds Neuro oriented x3, moves all extremities and no focal motor deficits Lab / Micro Data 01/05/25 10:10 01/05/25 10:10 Labs: Laboratory Results - last 24 hr 01/05/25 10:10: WBC 5.5, RBC 3.11 L, Hgb 10.1 L, Hct 33.7 L, MCV 108.4 H, MCH 32.5 H, MCHC 30.0 L, RDW Std Deviation 57.4 H, RDW Coeff of Alverto 14.5, Plt Count 153, MPV 10.7, Immature Gran % (Auto) 4.200 H, Neut % (Auto) 77.1 H, Lymph % (Auto) 9.6 L, [place]oyah % (Auto) 8.5, Eos % (Auto) 0.2, Baso % (Auto) 0.4, Absolute Neuts (auto) 4.3, Absolute Lymphs (auto) 0.53 L, Nucleated RBC % 0, Sodium 141, Potassium 4.9, Chloride 102, Carbon Dioxide 31.4, Anion Gap 8, BUN 38 H, Creatinine 1.79 H, Estim Creat Clear Calc 36.33 L, Est GFR (MDRD) Non-Af 29 L, BUN/Creatinine Ratio 21.3 H, Glucose 96, Calcium 9.3, Troponin T High Sens 37 H 01/05/25 12:00: Troponin T Hi Sens 2 Hr 31 H Micro: Microbiology 01/05/25 20:18 Mucosa - Nasopharyngeal Respiratory Panel (PCR) - Final 01/05/25 15:15 Urine, Random Legionella Antigen - Final 01/05/25 15:15 Urine, Random Streptococcus pneumoniae Antigen (M - Final ABG Data ABG results: ABG 01/05/25 01/05/25 10:46 19:26 Specimen Type ART ART Sample Site L Brach R Radial pH 7.12 L* 7.34 L Bicarbonate Actual 32.0 H 35.7 H Total CO2 35 38 Base Excess 3 H 10 H O2 Saturation 76 L 88 L O2 % 2.0 30.0 ABG pCO2 97.8 H* 65.6 H ABG pO2 57 L 59 L Rhiannon Test Positive O2 Delivery Device Cannula BiPAP Vent Mode Not entered AVAPS Tidal Volume 450.0 POC PEEP 8 Crit Call To/Read Back Yes Rhythm Strip Rhythm Strip: Sinus Rhythm Rate: 65 Ectopy: None Imaging Radiology Impression Chest X-Ray 01/05/25 10:09 IMPRESSION: Cardiac enlargement. Interstitial and alveolar edema. Reading Location: [facility] Chest CT 01/05/25 11:11 IMPRESSION: Coronary artery calcification (CAC) is is present Small bilateral effusions right greater than left with consolidation in the right lower lobe and possible atelectasis in the left lower lobe. Minimal pericardial thickening. Reading Location: [id number] Assessment and Plan . Assessment and plan: Critical Care Time: The entirety of this encounter was done via Telemedicine 1. Acute on chronic hypercapnic respiratory failure ? Continue BiPAP, titrate settings for optimal CO2 clearance; monitor serial ABGs; transition to nocturnal noninvasive ventilation when stable. 2. Suspected obesity hypoventilation syndrome ? undiagnosed sleep apnea ? Arrange outpatient sleep study; patient counseling completed. 3. Chronic hypoxemic respiratory failure ? Resume baseline O2 when not on BiPAP; monitor saturation. 4. Education/Long-term planning ? Reinforced need for home BiPAP/CPAP to prevent recurrence; coordinate with pulmonology. 01/06/25 0458 <Electronically signed by Raji Hammond MD> Cosigner Signature (if applicable): CC: Dr. Zee Jose, ~ Signed [facility] Work Phone: 1(240) 928-965308-09-2025 Consult note [facility] Medical Records Department [address] [place] [id number] Consultation - Bandage Winding Machine Operator 01/06/25 0332 MR#: [id number] Acct: [id number] Name: DESIRE CHAUDHRY Rep #:[id number] : 1950 74 From: Raji Hammond MD PCP: Dr. Zee Jose, Status:ADM IN Location: [place] [id number] HPI Consult Data Date of Consult: 01/06/25 HPI Narrative HPI Narrative: DESIRE CHAUDHRY is a 74 F with a history of chronic O2 presentes with progressive shortness of breathover several days. EMS found SpO2 in the 30s; placed on BiPAP with rapid improvement. Initial ABG: PCO2 97.8 mmHg, pH 7.12 (severe hypercapnia and respiratory acidosis). She denies history of sleep study, CPAP, or BiPAP at home. No known history of snoring or witnessed apneas. Denies nocturnal choking or gasping, though detailed sleep history limited. Reports no prior nocturnal noninvasive ventilation use. Currently on BiPAP, tolerating well, improved comfort and breathing. No acute distress. Education provided about likely contribution of obesity hypoventilation syndrome and/or sleep-disordered breathing to recurrent hypercapnic episodes; emphasized importance of sleep study and home noninvasive ventilation. [facility] Medical History Chronic anemia Constipation Emphysema lung Thrombocytopenia Stroke/cerebrovascular accident History of pulmonary embolism HLD (hyperlipidemia) Chronic back pain COPD (chronic obstructive pulmonary disease) HTN (hypertension) Home Medications ?Medication ?Instructions ?Recorded ?Last Taken ?Type gemfibrozil 600 mg tablet 600 mg PO BID cholesteol 09/1610/31/24 History apixaban 5 mg tablet (Eliquis) 5 mg PO BID blood thinn er 01/21/24 10/31/24 History sulfamethoxazole 400 1 tab PO BID infection 10/3110/31/24 History mg-trimethoprim 80 mg tablet albuterol sulfate 90 mcg/actuation 2 puff inhalation Q 6H PRN PRN 01/05/25 Unknown History aerosol inhaler wheezing budesonide-formoterol HFA 80 2 puff inhalation Q12H CO PD 01/05/25 Unknown History mcg-4.5 mcg/actuation aerosol inhaler (Breyna) gabapentin 300 mg capsule 300 mg PO Q12H 01/05/25 Unkn own History sennosides 8.6 mg-docusate sodium 2 tab-cap PO BID PRN constipation 01/05/25 Unknown History 50 mg tablet (Senna with Docusate Sodium) Allergy/AdvReac Type Severity Reaction Status Date / Time No Known Allergies Allergy Verified 01/05/25 09:52 Family History Mother Heart disease Father Heart disease Surgical History Previous back surgery Social History housing: assisted living facility Smoking Status: Former smoker alcohol intake: never substance use type: does not use Objective Data Objective Data Vital Signs: Vital Signs Last response 3 Temperature 36.7 C 01/05/25 20:13 Temperature Source Temporal 01/05/25 20:13 Pulse Rate 85 01/05/25 23:25 Pulse Strength Normal (2+) 01/05/25 20:15 Respiratory Rate 20 H 01/05/25 23:25 Respiratory Effort Normal, Non-Labored 01/05/25 20:15 Respiratory Depth Normal 01/05/25 20:15 Respiratory Pattern Normal 01/05/25 23:25 Blood Pressure 145/68 H 01/05/25 20:13 Blood Pressure Mean 93 01/05/25 20:13 Pulse Ox 92 01/05/25 23:25 Oxygen Delivery Method Nasal Cannula 01/05/25 21:08 Oxygen Flow Rate (L/min) 2.5 01/05/25 21:08 Fraction of Inspired Oxygen (FIO2) 32 01/05/25 23:25 I&O: I&O Last 24 Hours 3 01/05/25 01/05/25 01/06/25 11:59 23:59 11:59 Intake Total 250 / 250 Output Total 2200 / 2200 Balance -1950 / -1949 I&O: Total Stay 3 01/05/25 09:50 thru 01/05/25 23:30 Intake Total 250 Output Total 2200 Balance -1949 Current Meds Ordered / Administered: Current meds ordered / Administered 3 Generic Name Dose Route Start Last Admin Trade Name Freq PRN Reason Stop Dose Admin Acetaminophen 650 mg 01/05/25 13:15 Acetaminophen 325 Mg Tablet PO Q6H PRN PRN Pain 1-10 Or Fever >100.7 Albuterol Sulfate 2.5 mg 01/05/25 13:30 01/05/25 19:56 Albuterol 2.5 Mg/3 Ml Vial.Neb. INHALATION 2.5 mg Q6HWA.RT LIDA Administration Apixaban 5 mg 01/05/25 22:00 01/05/25 20:28 Apixaban 5 Mg Tablet PO 5 mg BID LIDA Administration Budesonide 0.5 mg 01/05/25 13:30 01/05/25 19:56 Budesonide Respules 0.5 Mg/2 Ml Ampul.Neb. INHALATION 0.5 mg Q12H.RT LIDA Administration Furosemide 40 mg 01/05/25 13:15 01/05/25 19:00 Furosemide 40 Mg/4 Ml Vial IV 40 mg BIDLX LIDA Administration Protocol Gabapentin 300 mg 01/05/25 22:00 01/05/25 20:28 Gabapentin 300 Mg Capsule PO 300 mg Q12 LIDA Administration Gemfibrozil 600 mg 01/05/25 22:00 01/05/25 20:28 Gemfibrozil 600 Mg Tablet PO 600 mg BID LIDA Administration Levofloxacin 750 mg in 150 mls @ 100 mls/hr 01/05/25 13:15 01/05/25 19:00 Levaquin Iv IV Infused Q48 LIDA Infusion Sodium Chloride 250 mls @ 15 mls/hr 01/05/25 14:30 IV .[id number] PRN Saline Flush Sodium Chloride 250 mls @ 15 mls/hr 01/05/25 14:30 IV .[id number] PRN Additional IVPB Infusion Methylprednisolone Sodium Succinate 40 mg 01/05/25 19:00 01/05/25 20:16 Methylprednisolone Sod Succ 40 Mg/Ml Vial IV 40 mg Q8 LIDA Administration Nitroglycerin 0.4 mg 01/05/25 13:15 Nitroglycerin (Inpatient Use) 0.4 Mg Tab.Subl SL Q5M PRN CARDIAC/CHEST PAIN Ondansetron HCl 4 mg 01/05/25 13:15 Ondansetron 4 Mg/2 Ml Vial IV Q8H PRN PRN NAUSEA/VOMITING Oxycodone HCl 2.5 - 5 mg 01/05/25 13:15 Oxycodone 5 Mg Tablet PO Q4H PRN PRN Pain Score 4-10 Sodium Chloride 10 - 40 ml 01/05/25 14:30 01/05/25 20:16 0.9% Saline Lock 10 Ml Syringe IV 10 ml UD PRN Administration SALINE FLUSH Trimethoprim/Sulfamethoxazole 0.5 tablet 01/05/25 17:00 01/05/25 17:06 Smz/Tmp Ds Tablet PO 0.5 tablet BIDCM LIDA Administration Physical Exam Narrative General: Alert, talking, comfortable on BiPAP Resp: Improved oxygenation on BiPAP Neuro: No focal deficits Const alert and oriented x3 General Appearance: cooperative Eyes PERRL Neck full ROM Resp Effort and Inspection: able to speak in complete sentences GI normal to inspection, nondistended, normoactive bowel sounds Neuro oriented x3, moves all extremities and no focal motor deficits Lab / Micro Data 01/05/25 10:10 01/05/25 10:10 Labs: Laboratory Results - last 24 hr 01/05/25 10:10: WBC 5.5, RBC 3.11 L, Hgb 10.1 L, Hct 33.7 L, MCV 108.4 H, MCH 32.5 H, MCHC 30.0 L, RDW Std Deviation 57.4 H, RDW Coeff of Alverto 14.5, Plt Count 153, MPV 10.7, Immature Gran % (Auto) 4.200 H, Neut % (Auto) 77.1 H, Lymph % (Auto) 9.6 L, Sequoyah % (Auto) 8.5, Eos % (Auto) 0.2, Baso % (Auto)0.4, Absolute Neuts (auto) 4.3, Absolute Lymphs (auto) 0.53 L, Nucleated RBC % 0, Sodium 141, Potassium 4.9, Chloride 102, Carbon Dioxide 31.4, Anion Gap 8, BUN 38 H, Creatinine 1.79 H, Estim Creat Clear Calc 36.33 L, Est GFR (MDRD) Non-Af 29 L, BUN/Creatinine Ratio 21.3 H, Glucose 96, Calcium 9.3,Troponin T High Sens 37 H 01/05/25 12:00: Troponin T Hi Sens 2 Hr 31 H Micro: Microbiology 01/05/25 20:18 Mucosa - Nasopharyngeal Respiratory Panel (PCR) - Final 01/05/25 15:15 Urine, Random Legionella Antigen - Final 01/05/25 15:15 Urine, Random Streptococcus pneumoniae Antigen (M - Final ABG Data ABG results: ABG 01/05/25 01/05/25 10:46 19:26 Specimen Type ART ART Sample Site L Brach R Radial pH 7.12 L* 7.34 L Bicarbonate Actual 32.0 H 35.7 H Total CO2 35 38 Base Excess 3 H 10 H O2 Saturation 76 L 88 L O2 % 2.0 30.0 ABG pCO2 97.8 H* 65.6 H ABG pO2 57 L 59 L Rhiannon Test Positive O2 Delivery Device Cannula BiPAP Vent Mode Not entered AVAPS Tidal Volume 450.0 POC PEEP 8 Crit Call To/Read Back Yes Rhythm Strip Rhythm Strip: Sinus Rhythm Rate: 65 Ectopy: None Imaging Radiology Impression Chest X-Ray 01/05/25 10:09 IMPRESSION: Cardiac enlargement. Interstitial and alveolar edema. Reading Location: [facility] Chest CT 01/05/25 11:11 IMPRESSION: Coronary artery calcification (CAC) is is present Small bilateral effusions right greater than left with consolidation in the right lower lobe and possible atelectasis in the left lower lobe. Minimal pericardial thickening. Reading Location: [facility] Assessment and Plan . Assessment and plan: Critical Care Time: The entirety of this encounter was done via Telemedicine 1. Acute on chronic hypercapnic respiratory failure ? Continue BiPAP, titrate settings for optimal CO2 clearance; monitor serial ABGs; transition to nocturnal noninvasive ventilation when stable. 2. Suspected obesity hypoventilation syndrome ? undiagnosed sleep apnea ? Arrange outpatient sleep study; patient counseling completed. 3. Chronic hypoxemic respiratory failure ? Resume baseline O2 when not on BiPAP; monitor saturation. 4. Education/Long-term planning ? Reinforced need for home BiPAP/CPAP to prevent recurrence; coordinate with pulmonology. 01/06/25 0451 Cosigner Signature (if applicable): CC: Dr. Zee Jose, DO~ Signed [facility]08-09-2025 Discharge summary Author Lobito Benson [facility] Note Date/Time January 05, 2025 10: 06pm [facility] Medical Records Department [address] [place] [address] Emergency Department Summary 01/05/25 MR#: [id number] Acct: [id number] Name: DESIRE CHAUDHRY Rep #:[id number] : 1950 74 From: Lobito Benson MD PCP: Dr. Zee Jose, Status:ADM IN Location: [place] [address] HPI History of Present Illness Chief Complaint: Shortness of Breath Informant: patient Onset/Context/Timing Onset: Days Context: gradual Timing: Continuous Current Severity: Mild Maximum Severity: Mild Worsened by: Nothing Associated Symptoms Negative for cough Chest Pain: Positive for None Narrative Narrative: 74-year-old female history of COPD and hypertension currently on Eliquis due to prior DVT and PEs. She is chronically on 2 L of oxygen recently has been bumpedup to 3 L. States that she has been short of breath the last couple days. No new cough. No chest pain. No leg pain or swelling. Denies any fever or chills. Denies recent illness. Was hospitalized at [facility] for similar event in early October. PE Risk Factors: Positive for Prior DVT or PE and Recent immobilization; Negative for Cancer, OCP + Smoking + > 35, Recent surgery or Recent travel Prior similar symptoms: Yes Recent Illness/Hospitalization: Yes [facility] PFSH Medical History Chronic anemia Constipation Emphysema lung Thrombocytopenia Stroke/cerebrovascular accident History of pulmonary embolism HLD (hyperlipidemia) Chronic back pain COPD (chronic obstructive pulmonary disease) HTN (hypertension) Home Medications ?Medication ?Instructions ?Recorded ?Last Taken ?Type gemfibrozil 600 mg tablet 600 mg PO BID cholesteol 09/1610/31/24 History apixaban 5 mg tablet (Eliquis) 5 mg PO BID blood thinn er 01/21/24 10/31/24 History docusate sodium 100 mg capsule 100 mg PO BID stool sof tner 10/31/24 10/31/24 History (Col-Rite) gabapentin 100 mg capsule 200 mg PO BID nerve pain 08/2210/31/24 History sulfamethoxazole 400 1 tab PO BID infection 10/3110/31/24 History mg-trimethoprim 80 mg tablet prednisone 10 mg tablet 10 mg PO DAILY #20 tabs 11/22 Unknown Rx Allergy/AdvReac Type Severity Reaction Status Date / Time No Known Allergies Allergy Verified 01/05/25 09:52 Family History Mother Heart disease Father Heart disease Surgical History Previous back surgery Social History housing: assisted living facility Smoking Status: Former smoker alcohol intake: never substance use type: does not use ROS ROS ED ROS Narrative Shortness of breath. Denies cough. Denies fever. Denies chest pain. Constitutional Constitutional ED: Denies chills or fever(s) Eyes Eyes: Denies blurry vision ENT ENT ED: Denies ear pain Cardiovascular Cardiovascular: Denies chest pain Respiratory/Chest Respiratory/Chest: Denies cough Gastrointestinal Gastrointestinal: Denies abdominal pain Genitourinary Genitourinary ED: Denies dysuria or hematuria Musculoskeletal Musculoskeletal: Denies arthralgias or back pain Integumentary Denies abscess or Abrasions Neurologic Neurologic: Denies headache(s) Psychiatric Psychiatric: Denies anxiety or depression Endocrine Endocrinology: Denies cold intolerance Hematologic/Lymphatic Hematologic/Lymphatic: Denies easy bleeding Allergic/Immunologic Allergic/Immunologic ED: Denies mouth swelling or tongue swelling EXAM Physical Exam Narrative Exam Narrative: 74-year-old female sitting upright in bed. Family at bedside. Vital signs are stable she is hypoxic on 2 L at 85 to 89%. But she is not in significant distress. H EENT exam pupils round react light. Moist mucous membranes. Neck nontender no JVD. Lungs coarse breath sounds. No rales or rhonchi. Really notexcessive wheezing. Heart regular rhythm rate about 60 no murmur. Chest wall ribs nontender. Abdomen soft nontender. Moving all 4 extremities. Calves are nontender without edema or cords. Normal dorsi plantarflexion. Normal front end java developer strength. Neurologically she is awake and alert. Answering questions followingcommands. Const Vital Signs: 01/05/25 09:52 01/05/25 09:56 01/05/25 09:56 Temperature 98.5 F 98.5 F Temperature Source Oral Oral Pulse Rate 64 63 Respiratory Rate 24 H 18 Respiratory Effort Short of Breath Respiratory Depth Normal Respiratory Pattern Normal Blood Pressure 116/46 L 116/46 L Blood Pressure Mean 69 69 Pulse Ox 89 85 Oxygen Delivery Method Nasal Cannula Nasal Cannula Nasal Cannula Oxygen Flow Rate (L/min) 2 4 4 01/05/25 10:25 01/05/25 10:26 01/05/25 10:26 Temperature Temperature Source Pulse Rate 63 Respiratory Rate 20 H Respiratory Effort Respiratory Depth Respiratory Pattern Blood Pressure Blood Pressure Mean Pulse Ox 2 96 Oxygen Delivery Method Nasal Cannula Nasal Cannula Oxygen Flow Rate (L/min) 3 01/05/25 10:30 01/05/25 10:37 Temperature Temperature Source Pulse Rate 65 Respiratory Rate 22 H Respiratory Effort Respiratory Depth Respiratory Pattern Blood Pressure 153/73 H Blood Pressure Mean 99 Pulse Ox 98 Oxygen Delivery Method Nasal Cannula Oxygen Flow Rate (L/min) 2 Positive well nourished and well developed General Appearance ED: well developed; Negative for pallor HEENT Reports moist mucous membranes Eyes PERRL and EOMs intact bilaterally Neck no lymphadenopathy, supple, no meningeal signs and no JVD Resp normal respiratory effort Resp Narrative: Coarse breath sounds bilaterally. Auscultation: wheezes; Negative for rales or rhonchi Cardio regular rate, regular rhythm, S1 normal heart sound, S2 normal heart sound and no murmurs GI non-tender, non-distended and no masses Auscultation: normoactive bowel sounds Palpation: soft; Negative for tender, guarding or rebound tenderness present Back/Spine no CVA tenderness and normal to inspection Extremity normal to inspection General Extremety ED: Negative for edema or tenderness General Extremity: Negative for edema Neuro oriented x3 and CN's II-XII intact bilaterally Sensorium / Orientation: alert, oriented to person, oriented to place and oriented to time; Negative for orientation impaired, confused or lethargic Speech: speech normal Motor Exam: strength 5/5 throughout Psych mental status grossly normal Thought Process: normal thought process Skin no wounds and skin turgor normal General Skin Exam: Negative for jaundice or pallor Lesions: no lesions Rashes: no rashes MDM MDM MDM Narrative Medical decision making narrative: 74-year-old female history of COPD and prior DVT and PEs on Eliquis complaining shortness of breath. She is on oxygen on her normal 2 L she is 85 to 89%. Cardiac site and respiratory workup. She will be treated with DuoNeb and albuterol aerosols and IV Solu-Medrol. Differential would include COPD exacerbation, pneumonia, viral URI, CHF versus other etiologies. I do not thinkthis is a PE given that she is on anticoagulation has been taking it. History & Record Review Additional record(s) reviewed:: Prior inpatient record, Prior outpatient record,Prior ED visit and Prior labs Lab Data Attestation: I reviewed the patient's lab results. Lab results narrative: CBC shows a white count of 5.5. H&H 10.1 and 33. Platelets 153. Electrolytes show sodium 141. Gap 8. BUN and creatinine of 30 and 1.79. Glucose 96. Troponin 37. Blood gas shows a pH of 7.12, PCO2 of 97 and PO2 of 57 consistent with CO2 retention and respiratory acidosis along with hypoxia. Sat was 76%. Labs: Laboratory Results - last 24 hr 01/05/25 10:10 WBC 5.5 RBC 3.11 L Hgb 10.1 L Hct 33.7 L MCV 108.4 H MCH 32.5 H MCHC 30.0 L RDW Std Deviation 57.4 H RDW Coeff of Alverto 14.5 Plt Count 153 MPV 10.7 Immature Gran % (Auto) 4.200 H Neut % (Auto) 77.1 H Lymph % (Auto) 9.6 L Sequoyah % (Auto) 8.5 Eos % (Auto) 0.2 Baso % (Auto) 0.4 Absolute Neuts (auto) 4.3 Absolute Lymphs (auto) 0.53 L Nucleated RBC % 0 Sodium 141 Potassium 4.9 Chloride 102 Carbon Dioxide 31.4 Anion Gap 8 BUN 38 H Creatinine 1.79 H Estim Creat Clear Calc 36.33 L Est GFR (MDRD) Non-Af 29 L BUN/Creatinine Ratio 21.3 H Glucose 96 Calcium 9.3 Troponin T High Sens 37 H ABG Data ABG results: ABG 01/05/25 10:46 Specimen Type ART Sample Site L Brach pH 7.12 L* Bicarbonate Actual 32.0 H Total CO2 35 Base Excess 3 H O2 Saturation 76 L O2 % 2.0 ABG pCO2 97.8 H* ABG pO2 57 L O2 Delivery Device Cannula Vent Mode Not entered Crit Call To/Read Back Yes Radiography Chest X-Ray - ED: 2 View, Read by ED Physician, Heart, Mediastinum, Bony Structures and Chronic Changes Diagnostic Testing: Chest x-ray, 2 views AP and lateral shows prominent opacity right lower lung could be consistent with a pneumonia. Normal cardiac silhouette. Orthopedic hardware along the thoracic spine with rods and screws. Rhythm Strip Rhythm Strip: Sinus Rhythm Rate: 65 Ectopy: None EKG Initial EKG: Attestation: I personally reviewed and interpreted this EKG as follows: Interpretation: Sinus Rhythm and No Acute Injury Pattern Comments: Normal sinus rhythm rate of 65 no acute signs of ID or ischemia. Discharge Plan Triage Chief Complaint: Shortness of Breath ED Provider: Lobito Benson Dx/Rx/DC Orders Prescriptions: No Action gemfibrozil 600 MG tablet 600 mg PO BID Eliquis 5 mg tablet 5 mg PO BID sulfamethoxazole-trimethoprim 400-80 mg tablet 1 tab PO BID gabapentin 100 mg capsule 200 mg PO BID docusate sodium [Col-Rite] 100 mg capsule 100 mg PO BID prednisone 10 mg tablet 10 mg PO DAILY Qty: 20 0RF Rx Instructions: 3 tablets daily for 3 days then 2 tablets daily for 3 days then 1 tablet daily for 3 days then half tablet daily for 4 days Primary Care Provider: Zee Jose Referrals: Zee Jose, [Primary Care Provider] - Print Language: Citizen Of [place] What to do if you have Problems For any increased pain, shortness of breath, bleeding, nausea or vomiting, chestpain, or any unexpected problems, contact your Primary Care Provider. Call [facility] ([phone]) or report to the closest Emergency Room. Call 911 if necessary. 01/05/252205 <Electronically signed by Lobito Benson MD> Cosigner Signature (if applicable): CC: Dr. Zee Jose, DO ~ Signed [facility] Work Phone: [phone] Discharge summary [facility] Medical Records Department [address] [place] [address] Emergency Department Summary 01/05/25 MR#: [id number] Acct: [id number] Name: DESIRE CHAUDHRY Rep #:[id number] : 1950 74 From: Lobito Benson MD PCP: Dr. Zee Jose, Status:ADM IN Location: [place] [address] HPI History of Present Illness Chief Complaint: Shortness of Breath Informant: patient Onset/Context/Timing Onset: Days Context: gradual Timing: Continuous Current Severity: Mild Maximum Severity: Mild Worsened by: Nothing Associated Symptoms Negative for cough Chest Pain: Positive for None Narrative Narrative: 74-year-old female history of COPD and hypertension currently on Eliquis due to prior DVT and PEs. She is chronically on 2 L of oxygen recently has been bumpedup to 3 L. States that she has been short of breath the last couple days. No new cough. No chest pain. No leg pain or swelling. Denies any fever or chills. Denies recent illness. Was hospitalized at [facility] for similar event in early October. PE Risk Factors: Positive for Prior DVT or PE and Recent immobilization; Negative for Cancer, OCP +Smoking + > 35, Recent surgery or Recent travel Prior similar symptoms: Yes Recent Illness[facility] Medical History Chronic anemia Constipation Emphysema lung Thrombocytopenia Stroke/cerebrovascular accident History of pulmonary embolism HLD (hyperlipidemia) Chronic back pain COPD (chronic obstructive pulmonary disease) HTN (hypertension) Home Medications ?Medication ?Instructions ?Recorded ?Last Taken ?Type gemfibrozil 600 mg tablet 600 mg PO BID cholesteol 09/1610/31/24 History apixaban 5 mg tablet (Eliquis) 5 mg PO BID blood thinn er 01/21/24 10/31/24 History docusate sodium 100 mg capsule 100 mg PO BID stool sof tner 10/31/24 10/31/24 History (Col-Rite) gabapentin 100 mg capsule 200 mg PO BID nerve pain 08/2210/31/24 History sulfamethoxazole 400 1 tab PO BID infection 10/3110/31/24 History mg-trimethoprim 80 mg tablet prednisone 10 mg tablet 10 mg PO DAILY #20 tabs 11/22 Unknown Rx Allergy/AdvReac Type Severity Reaction Status Date / Time No Known Allergies Allergy Verified 01/05/25 09:52 Family History Mother Heart disease Father Heart disease Surgical History Previous back surgery Social History housing: assisted living facility Smoking Status: Former smoker alcohol intake: never substance use type: does not use ROS ROS ED ROS Narrative Shortness of breath. Denies cough. Denies fever. Denies chest pain. Constitutional Constitutional ED: Denies chills or fever(s) Eyes Eyes: Denies blurry vision ENT ENT ED: Denies ear pain Cardiovascular Cardiovascular: Denies chest pain Respiratory/Chest Respiratory/Chest: Denies cough Gastrointestinal Gastrointestinal: Denies abdominal pain Genitourinary Genitourinary ED: Denies dysuria or hematuria Musculoskeletal Musculoskeletal: Denies arthralgias or back pain Integumentary Denies abscess or Abrasions Neurologic Neurologic: Denies headache(s) Psychiatric Psychiatric: Denies anxiety or depression Endocrine Endocrinology: Denies cold intolerance Hematologic/Lymphatic Hematologic/Lymphatic: Denies easy bleeding Allergic/Immunologic Allergic/Immunologic ED: Denies mouth swelling or tongue swelling EXAM Physical Exam Narrative Exam Narrative: 74-year-old female sitting upright in bed. Family at bedside. Vital signs are stable she is hypoxicon 2 L at 85 to 89%. But she is not in significant distress. H EENT exam pupils round react light. Moist mucous membranes. Neck nontender no JVD. Lungs coarse breath sounds. No rales or rhonchi. Really notexcessive wheezing. Heart regular rhythm rate about 60 no murmur. Chest wall ribs nontender. Abdomen soft nontender. Moving all 4 extremities. Calves are nontender without edema or cords. Normaldorsi plantarflexion. Normal front end java developer strength. Neurologically she is awake and alert. Answering questions followingcommands. Const Vital Signs: 01/05/25 09:52 01/05/25 09:56 01/05/25 09:56 Temperature 98.5 F 98.5 F Temperature Source Oral Oral Pulse Rate 64 63 Respiratory Rate 24 H 18 Respiratory Effort Short of Breath Respiratory Depth Normal Respiratory Pattern Normal Blood Pressure 116/46 L 116/46 L Blood Pressure Mean 69 69 Pulse Ox 89 85 Oxygen Delivery Method Nasal Cannula Nasal Cannula Nasal Cannula Oxygen Flow Rate (L/min) 2 4 4 01/05/25 10:25 01/05/25 10:26 01/05/25 10:26 Temperature Temperature Source Pulse Rate 63 Respiratory Rate 20 H Respiratory Effort Respiratory Depth Respiratory Pattern Blood Pressure Blood Pressure Mean Pulse Ox 2 96 Oxygen Delivery Method Nasal Cannula Nasal Cannula Oxygen Flow Rate (L/min) 3 01/05/25 10:30 01/05/25 10:37 Temperature Temperature Source Pulse Rate 65 Respiratory Rate 22 H Respiratory Effort Respiratory Depth Respiratory Pattern Blood Pressure 153/73 H Blood Pressure Mean 99 Pulse Ox 98 Oxygen Delivery Method Nasal Cannula Oxygen Flow Rate (L/min) 2 Positive well nourished and well developed General Appearance ED: well developed; Negative for pallor HEENT Reports moist mucous membranes Eyes PERRL and EOMs intact bilaterally Neck no lymphadenopathy, supple, no meningeal signs and no JVD Resp normal respiratory effort Resp Narrative: Coarse breath sounds bilaterally. Auscultation: wheezes; Negative for rales or rhonchi Cardio regular rate, regular rhythm, S1 normal heart sound, S2 normal heart sound and no murmurs GI non-tender, non-distended and no masses Auscultation: normoactive bowel sounds Palpation: soft; Negative for tender, guarding or rebound tenderness present Back/Spine no CVA tenderness and normal to inspection Extremity normal to inspection General Extremety ED: Negative for edema or tenderness General Extremity: Negative for edema Neuro oriented x3 and CN's II-XII intact bilaterally Sensorium / Orientation: alert, oriented to person, oriented to place and oriented to time; Negative for orientation impaired, confused or lethargic Speech: speech normal Motor Exam: strength 5/5 throughout Psych mental status grossly normal Thought Process: normal thought process Skin no wounds and skin turgor normal General Skin Exam: Negative for jaundice or pallor Lesions: no lesions Rashes: no rashes MDM MDM MDM Narrative Medical decision making narrative: 74-year-old female history of COPD and prior DVT and PEs on Eliquis complaining shortness of breath. She is on oxygen on her normal 2 L she is 85 to 89%. Cardiac site and respiratory workup. She willbe treated with DuoNeb and albuterol aerosols and IV Solu-Medrol. Differential would include COPD ex acerbation, pneumonia, viral URI, CHF versus other etiologies. I do not thinkthis is a PE given that she is on anticoagulation has been taking it. History & Record Review Additional record(s) reviewed:: Prior inpatient record, Prior outpatient record,Prior ED visit and Prior labs Lab Data Attestation: I reviewed the patient's lab results. Lab results narrative: CBC shows a white count of 5.5. H&H 10.1 and 33. Platelets 153. Electrolytes show sodium 141. Gap 8. BUN and creatinine of 30 and 1.79. Glucose 96. Troponin 37. Blood gas shows a pH of 7.12, PCO2 of 97 and PO2 of 57 consistent with CO2 retention and respiratory acidosis along with hypoxia. Sat was 76%. Labs: Laboratory Results - last 24 hr 01/05/25 10:10 WBC 5.5 RBC 3.11 L Hgb 10.1 L Hct 33.7 L MCV 108.4 H MCH 32.5 H MCHC 30.0 L RDW Std Deviation 57.4 H RDW Coeff of Alverto 14.5 Plt Count 153 MPV 10.7 Immature Gran % (Auto) 4.200 H Neut % (Auto) 77.1 H Lymph % (Auto) 9.6 L Sequoyah % (Auto) 8.5 Eos % (Auto) 0.2 Baso % (Auto) 0.4 Absolute Neuts (auto) 4.3 Absolute Lymphs (auto) 0.53 L Nucleated RBC % 0 Sodium 141 Potassium 4.9 Chloride 102 Carbon Dioxide 31.4 Anion Gap 8 BUN 38 H Creatinine 1.79 H Estim Creat Clear Calc 36.33 L Est GFR (MDRD) Non-Af 29 L BUN/Creatinine Ratio 21.3 H Glucose 96 Calcium 9.3 Troponin T High Sens 37 H ABG Data ABG results: ABG 01/05/25 10:46 Specimen Type ART Sample Site L Brach pH 7.12 L* Bicarbonate Actual 32.0 H Total CO2 35 Base Excess 3 H O2 Saturation 76 L O2 % 2.0 ABG pCO2 97.8 H* ABG pO2 57 L O2 Delivery Device Cannula Vent Mode Not entered Crit Call To/Read Back Yes Radiography Chest X-Ray - ED: 2 View, Read by ED Physician, Heart, Mediastinum, Bony Structures and Chronic Changes Diagnostic Testing: Chest x-ray, 2 views AP and lateral shows prominent opacity right lower lung could be consistent with a pneumonia. Normal cardiac silhouette. Orthopedic hardware along the thoracic spine with rods and screws. Rhythm Strip Rhythm Strip: Sinus Rhythm Rate: 65 Ectopy: None EKG Initial EKG: Attestation: I personally reviewed and interpreted this EKG as follows: Interpretation: Sinus Rhythm and No Acute Injury Pattern Comments: Normal sinus rhythm rate of 65 no acute signs of ID or ischemia. Discharge Plan Triage Chief Complaint: Shortness of Breath ED Provider: Lobito Benson Dx/Rx/DC Orders Prescriptions: No Action gemfibrozil 600 MG tablet 600 mg PO BID Eliquis 5 mg tablet 5 mg PO BID sulfamethoxazole-trimethoprim 400-80 mg tablet 1 tab PO BID gabapentin 100 mg capsule 200 mg PO BID docusate sodium [Col-Rite] 100 mg capsule 100 mg PO BID prednisone 10 mg tablet 10 mg PO DAILY Qty: 20 0RF Rx Instructions: 3 tablets daily for 3 days then 2 tablets daily for 3 days then 1 tablet daily for 3 days then halftablet daily for 4 days Primary Care Provider: Zee Jose Referrals: Zee Jose DO [Primary Care Provider] - Print Language: Citizen Of [place] What to do if you have Problems For any increased pain, shortness of breath, bleeding, nausea or vomiting, chestpain, or any unexpected problems, contact your Primary Care Provider. Call [facility] ([phone]) or report tothe closest Emergency Room. Call 911 if necessary. 01/05/252205 Cosigner Signature (if applicable): CC: Dr. Zee Jose DO ~ Signed [facility]08-08-2025 History and physical note Author Laura Sol [facility] Note Date/Time January 05, 2025 6:2 3pm [facility] Medical Records Department [address] [place] [address] H&P Exam - Hospitalist 01/05/25 1107 MR#: [id number] Acct: [id number] Name: DESIRE CHAUDHRY Rep #:[id number] : 1950 74 From: Laura Sol MD PCP: Dr. Zee Jose, DO Status:ADM IN Location: [address] 1 HPI - General General Date of Admission: 01/05/25 Date of Service: 01/05/25 Chief Complaint: shortness of breath HPI Narrative DESIRE CHAUDHRY, is a 74 F with a PMH as outlined who was admitted via the ED on 01/05/2025 with a complaint of shortness of breath. She is chronically on 2L of oxygen at home, and says she had recently been bumped up to 3L. She started feeling short of breath for a couple of days prior to admission. She usually wears oxygen at home but her shortness of breath was not improving. She denied any cough, chest pain, wheezing, nausea or vomiting, palpitations or any other symptoms. She called the EMS who found her to be saturating in the 30s when they arrived. Vitals in the ED were BP of 153/65, OK of 72, RR of 20 and temp of 96.8F. She was saturating at 100% on BIPAP. CBC showed hb of 10.1, wbc of 5.5 and plateletsof 153. Chemistry showed sodium of 141, potassium of 4.9 and bicarb of 31.4. Cr was 1.79 and initial troponin was 37. ABG showed pH of 7.12, pCO2 of 97.8 as well as pO2 of 57. She is being admitted to be managed for acute on chronic hypoxic and hypercapnic respiratory failure due to COPD exacerbation and possible pneumonia. CXR showed cardiac enlargement with interstitial and alveolar edema. [facility] Medical History Chronic anemia Constipation Emphysema lung Thrombocytopenia Stroke/cerebrovascular accident History of pulmonary embolism HLD (hyperlipidemia) Chronic back pain COPD (chronic obstructive pulmonary disease) HTN (hypertension) Home Medications ?Medication ?Instructions ?Recorded ?Last Taken ?Type gemfibrozil 600 mg tablet 600 mg PO BID cholesteol 09/1610/31/24 History apixaban 5 mg tablet (Eliquis) 5 mg PO BID blood thinn er 01/21/24 10/31/24 History sulfamethoxazole 400 1 tab PO BID infection 10/3110/31/24 History mg-trimethoprim 80 mg tablet albuterol sulfate 90 mcg/actuation 2 puff inhalation Q 6H PRN PRN 01/05/25 Unknown History aerosol inhaler wheezing budesonide-formoterol HFA 80 2 puff inhalation Q12H CO PD 01/05/25 Unknown History mcg-4.5 mcg/actuation aerosol inhaler (Breyna) gabapentin 300 mg capsule 300 mg PO Q12H 01/05/25 Unkn own History sennosides 8.6 mg-docusate sodium 2 tab-cap PO BID PRN constipation 01/05/25 Unknown History 50 mg tablet (Senna with Docusate Sodium) Allergy/AdvReac Type Severity Reaction Status Date / Time No Known Allergies Allergy Verified 01/05/25 09:52 Family History Mother Heart disease Father Heart disease Surgical History Previous back surgery Social History housing: assisted living facility Smoking Status: Former smoker alcohol intake: never substance use type: does not use ROS Constitutional Constitutional: Reports fatigue, malaise and weakness; Denies anorexia, chills or fever(s) Eyes Eyes: Denies change in vision ENT HEENT: Denies dysphagia, headache(s) or sore throat Cardiovascular Cardiovascular: Reports dyspnea on exertion; Denies chest pain, edema, lightheadedness, orthopnea, palpitations, paroxysmal nocturnal dyspnea, rapid heart rate or syncope Respiratory/Chest Respiratory/Chest: Reports cough, dyspnea, shortness of breath at rest and shortness of breath with exertion; Denies excessive phlegm production, hemoptysis, productive cough or wheezing Gastrointestinal Gastrointestinal: Denies abdominal pain, constipation, diarrhea, nausea or vomiting Genitourinary Genitourinary: Denies dysuria Neurologic Neurologic: Denies confusion, dizziness, focal weakness, headache(s) or numbness Psychiatric Psychiatric: Denies anxiety Vital Signs Vital Signs Vital Signs: 01/05/25 09:52 01/05/25 09:56 01/05/25 09:56 Temperature 98.5 F 98.5 F Temperature Source Oral Oral Pulse Rate 64 63 Respiratory Rate 24 H 18 Respiratory Effort Short of Breath Respiratory Depth Normal Respiratory Pattern Normal Blood Pressure 116/46 L 116/46 L Blood Pressure Mean 69 69 Pulse Ox 89 85 Oxygen Delivery Method Nasal Cannula Nasal Cannula Nasal Cannula Oxygen Flow Rate (L/min) 2 4 4 01/05/25 10:25 01/05/25 10:26 01/05/25 10:26 Temperature Temperature Source Pulse Rate 63 Respiratory Rate 20 H Respiratory Effort Respiratory Depth Respiratory Pattern Blood Pressure Blood Pressure Mean Pulse Ox 2 96 Oxygen Delivery Method Nasal Cannula Nasal Cannula Oxygen Flow Rate (L/min) 3 01/05/25 10:30 01/05/25 10:37 Temperature Temperature Source Pulse Rate 65 Respiratory Rate 22 H Respiratory Effort Respiratory Depth Respiratory Pattern Blood Pressure 153/73 H Blood Pressure Mean 99 Pulse Ox 98 Oxygen Delivery Method Nasal Cannula Oxygen Flow Rate (L/min) 2 Weight Weight: 263 lb 14.293 oz Body Mass Index (BMI) 42.5 Physical Exam Const alert, oriented x3 and no apparent distress Constitutional Narrative: Class II obesity. At time of my review patient off BiPAP and on 3 L of oxygen by nasal cannula HEENT normocephalic, head/scalp atraumatic and hearing grossly normal bilaterally HEENT Narrative: dry oral mucosa Mouth: oral and palatal mucosa normal Eyes EOMs intact bilaterally and conjunctivae normal Neck no lymphadenopathy and supple Resp Resp Narrative: Moderately diminished breath sounds bibasilar. Mild wheezing, bilateral coarse crackles. Was on 3 L at time of my review but later transitioned back onto BiPAP. Cardio regular rate, regular rhythm, S1 normal heart sound, S2 normal heart sound and no murmurs GI normal to inspection, nondistended, normoactive bowel sounds, soft to palpation,non-tender and non-distended Extremity normal to inspection, full ROM and no clubbing, cyanosis or edema Neuro oriented x3, CN's II-XII intact bilaterally and moves all extremities Sensorium / Orientation: awake and alert Motor Exam: strength 5/5 throughout Psych affect normal Results Lab / Micro Data 01/05/25 10:10 01/05/25 10:10 Labs: Laboratory Results - last 24 hr 01/05/25 10:10: WBC 5.5, RBC 3.11 L, Hgb 10.1 L, Hct 33.7 L, MCV 108.4 H, MCH 32.5 H, MCHC 30.0 L, RDW Std Deviation 57.4 H, RDW Coeff of Alverto 14.5, Plt Count 153, MPV 10.7, Immature Gran % (Auto) 4.200 H, Neut % (Auto) 77.1 H, Lymph % (Auto) 9.6 L, Sequoyah % (Auto) 8.5, Eos % (Auto) 0.2, Baso % (Auto) 0.4, Absolute Neuts (auto) 4.3, Absolute Lymphs (auto) 0.53 L, Nucleated RBC % 0, Sodium 141, Potassium 4.9, Chloride 102, Carbon Dioxide 31.4, Anion Gap 8, BUN 38 H, Creatinine 1.79 H, Estim Creat Clear Calc 36.33 L, Est GFR (MDRD) Non-Af 29 L, BUN/Creatinine Ratio 21.3 H, Glucose 96, Calcium 9.3, Troponin T High Sens 37 H ABG Data ABG results: ABG 01/05/25 10:46 Specimen Type ART Sample Site L Brach pH 7.12 L* Bicarbonate Actual 32.0 H Total CO2 35 Base Excess 3 H O2 Saturation 76 L O2 % 2.0 ABG pCO2 97.8 H* ABG pO2 57 L O2 Delivery Device Cannula Vent Mode Not entered Crit Call To/Read Back Yes Rhythm Strip Rhythm Strip: Sinus Rhythm Rate: 65 Ectopy: None Imaging Radiology Impression Chest X-Ray 01/05/25 10:09 IMPRESSION: Cardiac enlargement. Interstitial and alveolar edema. Reading Location: [id number] Assessment & Plan Assessment/Plan (1) Increasing shortness of breath: (2) Right lower lobe pneumonia: (3) Hypoxia: PLAN: Plan #Acute on chronic hypoxic and hypercapnic respiratory failure due to COPD exacerbation as well as fluid overload and pneumonia * Admit to PCU. Patient was on BiPAP but she wants to be DNR CCA no intubation so will not put her in the ICU. * Admitted with a complaint of sudden onset shortness of breath that started in the early hours of the day of admission. * Chest x-ray showed interstitial and alveolar edema as well as cardiac enlargement. CT of the chest done without contrast as she is already on blood thinners showed bilateral small pleural effusions right greater than left with consolidation in the right lower lobe and possible atelectasis in the left lower lobe as well as minimal pericardial thickening * Started on IV levofloxacin. Also added on IV Solu-Medrol 40 mg Q8. * Diuresed with IV Lasix 40 mg twice daily in light of elevated BNP * ABG done showed pH of 7.12 with PCO2 of 97 and PO2 of 57. Patient used BiPAP as needed for shortness of breath * Breathing treatments bronchodilators. Consult pulmonology. Titrate oxygen to maintain saturation above 90%. * Check urine for strep and Legionella and sputum cultures. * #History of PE: On Eliquis #Hyperlipidemia: On gemfibrozil #History of peripheral neuropathy: On gabapentin. History of CKD stage III: Creatinine was 1.79 on admission which is around her baseline. WIll monitor DVT prophylaxis: Already on Eliquis CODE STATUS: DNR CCA no intubation * Patient counseled extensively about different types of CODE STATUS including full code, DNR CC and DNR CCA. * Patient elects to be DNRCCA no intubation; she does not want chest compressions and does not want to be intubated. * her niece who is her primary caregiver was by her bedside and clarified that this is what patient wanted. * Total [id number] time 17 minutes. Charges/Coding Visit Charges Inpatient E&M: 53110 Init Hosp L3 Procedures Hospitalists Procedures: 33335 Advncd Care Plan 30 Min 01/05/25 6343 <Electronically signed by Laura Sol MD> Cosigner Signature (if applicable): CC: Dr. Zee Jose DO; Dr. Laura Sol MD~ Signed [facility] Work Phone: 1([phone]) 106-474408-08-2025 History and physical note [facility] Medical Records Department [address] [place] [address] H&P Exam - Hospitalist 01/05/25 1107 MR#: [id number] Acct: [id number] Name: DESIRE CHAUDHRY Rep #:[id number] : 1950 74 From: Laura Sol MD PCP: Dr. Zee Rebeca, DO Status:ADM IN Location: [id number] 1 HPI - General General Date of Admission: 01/05/25 Date of Service: 01/05/25 Chief Complaint: shortness of breath HPI Narrative DESIRE CHAUDHRY, is a 74 F with a PMH as outlined who was admitted via the ED on 01/05/2025 with a complaint of shortness of breath. She is chronically on 2L of oxygen at home, and says she had recently been bumped up to 3L. She started feeling short of breath for a couple of days prior to admission. She usually wears oxygen at home but her shortness of breath was not improving. She denied any cough,chest pain, wheezing, nausea or vomiting, palpitations or any other symptoms. She called the EMS who found her to be saturating in the 30s when they arrived. Vitals in the ED were BP of 153/65, OK of 72, RR of 20 and temp of 96.8F. She was saturating at 100% on BIPAP. CBC showed hb of 10.1, wbc of 5.5 and plateletsof 153. Chemistry showed sodium of 141, potassium of 4.9 and bicarb of 31.4. Cr was 1.79 and initial troponin was 37. ABG showed pH of 7.12, pCO2 of 97.8 as well as pO2 of 57. She is being admitted to be managed for acute on chronic hypoxic and hypercapnic respiratory failure due to COPD exacerbation and possible pneumonia. CXR showed cardiac enlargement with interstitial and alveolar edema. [facility] Medical History Chronic anemia Constipation Emphysema lung Thrombocytopenia Stroke/cerebrovascular accident History of pulmonary embolism HLD (hyperlipidemia) Chronic back pain COPD (chronic obstructive pulmonary disease) HTN (hypertension) Home Medications ?Medication ?Instructions ?Recorded ?Last Taken ?Type gemfibrozil 600 mg tablet 600 mg PO BID cholesteol 09/1610/31/24 History apixaban 5 mg tablet (Eliquis) 5 mg PO BID blood thinn er 01/21/24 10/31/24 History sulfamethoxazole 400 1 tab PO BID infection 10/3110/31/24 History mg-trimethoprim 80 mg tablet albuterol sulfate 90 mcg/actuation 2 puff inhalation Q 6H PRN PRN 01/05/25 Unknown History aerosol inhaler wheezing budesonide-formoterol HFA 80 2 puff inhalation Q12H CO PD 01/05/25 Unknown History mcg-4.5 mcg/actuation aerosol inhaler (Breyna) gabapentin 300 mg capsule 300 mg PO Q12H 01/05/25 Unkn own History sennosides 8.6 mg-docusate sodium 2 tab-cap PO BID PRN constipation 01/05/25 Unknown History 50 mg tablet (Senna with Docusate Sodium) Allergy/AdvReac Type Severity Reaction Status Date / Time No Known Allergies Allergy Verified 01/05/25 09:52 Family History Mother Heart disease Father Heart disease Surgical History Previous back surgery Social History housing: assisted living facility Smoking Status: Former smoker alcohol intake: never substance use type: does not use ROS Constitutional Constitutional: Reports fatigue, malaise and weakness; Denies anorexia, chills or fever(s) Eyes Eyes: Denies change in vision ENT HEENT: Denies dysphagia, headache(s) or sore throat Cardiovascular Cardiovascular: Reports dyspnea on exertion; Denies chest pain, edema, lightheadedness, orthopnea, palpitations, paroxysmal nocturnal dyspnea, rapid heart rate or syncope Respiratory/Chest Respiratory/Chest: Reports cough, dyspnea, shortness of breath at rest and shortness of breath withexertion; Denies excessive phlegm production, hemoptysis, productive cough or wheezing Gastrointestinal Gastrointestinal: Denies abdominal pain, constipation, diarrhea, nausea or vomiting Genitourinary Genitourinary: Denies dysuria Neurologic Neurologic: Denies confusion, dizziness, focal weakness, headache(s) or numbness Psychiatric Psychiatric: Denies anxiety Vital Signs Vital Signs Vital Signs: 01/05/25 09:52 01/05/25 09:56 01/05/25 09:56 Temperature 98.5 F 98.5 F Temperature Source Oral Oral Pulse Rate 64 63 Respiratory Rate 24 H 18 Respiratory Effort Short of Breath Respiratory Depth Normal Respiratory Pattern Normal Blood Pressure 116/46 L 116/46 L Blood Pressure Mean 69 69 Pulse Ox 89 85 Oxygen Delivery Method Nasal Cannula Nasal Cannula Nasal Cannula Oxygen Flow Rate (L/min) 2 4 4 01/05/25 10:25 01/05/25 10:26 01/05/25 10:26 Temperature Temperature Source Pulse Rate 63 Respiratory Rate 20 H Respiratory Effort Respiratory Depth Respiratory Pattern Blood Pressure Blood Pressure Mean Pulse Ox 2 96 Oxygen Delivery Method Nasal Cannula Nasal Cannula Oxygen Flow Rate (L/min) 3 01/05/25 10:30 01/05/25 10:37 Temperature Temperature Source Pulse Rate 65 Respiratory Rate 22 H Respiratory Effort Respiratory Depth Respiratory Pattern Blood Pressure 153/73 H Blood Pressure Mean 99 Pulse Ox 98 Oxygen Delivery Method Nasal Cannula Oxygen Flow Rate (L/min) 2 Weight Weight: 263 lb 14.293 oz Body Mass Index (BMI) 42.5 Physical Exam Const alert, oriented x3 and no apparent distress Constitutional Narrative: Class II obesity. At time of my review patient off BiPAP and on 3 L of oxygen by nasal cannula HEENT normocephalic, head/scalp atraumatic and hearing grossly normal bilaterally HEENT Narrative: dry oral mucosa Mouth: oral and palatal mucosa normal Eyes EOMs intact bilaterally and conjunctivae normal Neck no lymphadenopathy and supple Resp Resp Narrative: Moderately diminished breath sounds bibasilar. Mild wheezing, bilateral coarse crackles. Was on 3 Lat time of my review but later transitioned back onto BiPAP. Cardio regular rate, regular rhythm, S1 normal heart sound, S2 normal heart sound and no murmurs GI normal to inspection, nondistended, normoactive bowel sounds, soft to palpation,non-tender and non-distended Extremity normal to inspection, full ROM and no clubbing, cyanosis or edema Neuro oriented x3, CN's II-XII intact bilaterally and moves all extremities Sensorium / Orientation: awake and alert Motor Exam: strength 5/5 throughout Psych affect normal Results Lab / Micro Data 01/05/25 10:10 01/05/25 10:10 Labs: Laboratory Results - last 24 hr 01/05/25 10:10: WBC 5.5, RBC 3.11 L, Hgb 10.1 L, Hct 33.7 L, MCV 108.4 H, MCH 32.5 H, MCHC 30.0 L, RDW Std Deviation 57.4 H, RDW Coeff of Alverto 14.5, Plt Count 153, MPV 10.7, Immature Gran % (Auto) 4.200 H, Neut % (Auto) 77.1 H, Lymph % (Auto) 9.6 L, Sequoyah % (Auto) 8.5, Eos % (Auto) 0.2, Baso % (Auto)0.4, Absolute Neuts (auto) 4.3, Absolute Lymphs (auto) 0.53 L, Nucleated RBC % 0, Sodium 141, Potassium 4.9, Chloride 102, Carbon Dioxide 31.4, Anion Gap 8, BUN 38 H, Creatinine 1.79 H, Estim Creat Clear Calc 36.33 L, Est GFR (MDRD) Non-Af 29 L, BUN/Creatinine Ratio 21.3 H, Glucose 96, Calcium 9.3,Troponin T High Sens 37 H ABG Data ABG results: ABG 01/05/25 10:46 Specimen Type ART Sample Site L Brach pH 7.12 L* Bicarbonate Actual 32.0 H Total CO2 35 Base Excess 3 H O2 Saturation 76 L O2 % 2.0 ABG pCO2 97.8 H* ABG pO2 57 L O2 Delivery Device Cannula Vent Mode Not entered Crit Call To/Read Back Yes Rhythm Strip Rhythm Strip: Sinus Rhythm Rate: 65 Ectopy: None Imaging Radiology Impression Chest X-Ray 01/05/25 10:09 IMPRESSION: Cardiac enlargement. Interstitial and alveolar edema. Reading Location: [id number] Assessment & Plan Assessment/Plan (1) Increasing shortness of breath: (2) Right lower lobe pneumonia: (3) Hypoxia: PLAN: Plan #Acute on chronic hypoxic and hypercapnic respiratory failure due to COPD exacerbation as well as fluid overload and pneumonia * Admit to PCU. Patient was on BiPAP but she wants to be DNR CCA no intubation so will not put her in the ICU. * Admitted with a complaint of sudden onset shortness of breath that started in the early hours of the day of admission. * Chest x-ray showed interstitial and alveolar edema as well as cardiac enlargement. CT of the chest done without contrast as she is already on blood thinners showed bilateral small pleural effusionsright greater than left with consolidation in the right lower lobe and possible atelectasis in the left lower lobe as well as minimal pericardial thickening * Started on IV levofloxacin. Also added on IV Solu-Medrol 40 mg Q8. * Diuresed with IV Lasix 40 mg twice daily in light of elevated BNP * ABG done showed pH of 7.12 with PCO2 of 97 and PO2 of 57. Patient used BiPAP as needed for shortness of breath * Breathing treatments bronchodilators. Consult pulmonology. Titrate oxygen to maintain saturation above 90%. * Check urine for strep and Legionella and sputum cultures. * #History of PE: On Eliquis #Hyperlipidemia: On gemfibrozil #History of peripheral neuropathy: On gabapentin. History of CKD stage III: Creatinine was 1.79 on admission which is around her baseline. WIll monitor DVT prophylaxis: Already on Eliquis CODE STATUS: DNR CCA no intubation * Patient counseled extensively about different types of CODE STATUS including full code, DNR CC and DNR CCA. * Patient elects to be DNRCCA no intubation; she does not want chest compressions and does not wantto be intubated. * her niece who is her primary caregiver was by her bedside and clarified that this is what patientwanted. * Total [id number] time 17 minutes. Charges/Coding Visit Charges Inpatient E&M: 00835 Init Hosp L3 Procedures Hospitalists Procedures: 60176 Advncd Care Plan 30 Min 01/05/25 1823 Cosigner Signature (if applicable): CC: Dr. Zee Jose DO; Dr. Laura Sol MD~ Signed [facility]08-08-2025 Radiology Diagnostic study note [facility] Imaging Services [address] [place] [address] Chest without Contrast MR#: [id number] Acct: [id number] Name: DESIRE CHAUDHRY Rep #: [id number] : 1950 F 74 From: Fredy Leyva MD PCP: Dr. Zee Jose DO Status: ADM IN Study:Chest without Contrast Date of Exam: 01/05/25 Exam# [id number] Ordering Dr: Acosta Benson MD PROCEDURE: CHEST WITHOUT CONTRAST 01/05/2025 REASON FOR EXAM: RIGHT LOWER LOBE DENSITY QUESTION PNEUMONIA VERSUS TECHNIQUE: Chest CT without contrast. Coronal and Sagittal reconstruction series were provided. One or more dose reduction techniques were used (e.g., Automated exposure control, adjustment of the mA and/or kV according to patient size, use of iterative reconstruction technique RADIATION DOSE SUMMARY: CTDlvol: 21.87 mGy DLP: 788.07 mGycm COMPARISON: Prior chest radiograph done earlier in the day. FINDINGS: Hardware: EKG electrodes are seen. A dual-chamber pacemaker is seen. Lymph nodes: Small benign-appearing mediastinal lymph nodes. Heart and Vasculature: Cardiomegaly. Minimal pericardial thickening. Coronary Artery Calcifications: Present Lungs and Airways: Small bilateral pleural effusions. Consolidation in the right lower lobe. Mild increased markings at the left lung base suggestive of possible compressive atelectasis. No evidence of pulmonary edema. Upper Abdomen: Unremarkable Bones: Prior intrapedicular screw and anjel fixation of the thoracic spine. Multilevel loss of heightof the thoracic spine with increased kyphosis. CT/Chest without Contrast IMPRESSION: Coronary artery calcification (CAC) is is present Small bilateral effusions right greater than left with consolidation in the right lower lobe and possible atelectasis in the left lower lobe. Minimal pericardial thickening. Reading Location: [id number] CC: Dr. Lobito Benson MD; Dr. Zee Jose DO ~ Mobile Developer: Signed [facility]08-08-2025 Radiology Diagnostic study note [facility] Imaging Services [address] [place] [id number] Chest PA and Lateral MR#: [id number] Acct: [id number] Name: DESIRE CHAUDHRY Rep #: [id number] : 1950 F 74 From: Alondra Fraser MD PCP: Dr. Zee Jose DO Status: REG ER Study:Chest PA and Lateral Date of Exam: 01/05/25 Exam# [id number] Ordering Dr: Acosta Benson MD PROCEDURE: CHEST PA AND LATERAL 01/05/2025 REASON FOR EXAM: CHEST PAIN TECHNIQUE: CHEST PA AND LATERAL COMPARISON: October 31, 2024 FINDINGS: Hardware: Posterior fusion of the thoracic spine with pedicle screws and rods. EKG leads. Heart: Enlarged. Mediastinum: Atherosclerosis of the thoracic aorta. Lungs: Interstitial and alveolar edema with scant pleural fluid and subsegmentalatelectasis. Bones: Degenerative changes are identified within the thoracic spine. RAD/Chest PA and Lateral IMPRESSION: Cardiac enlargement. Interstitial and alveolar edema. Reading Location: [id number] CC: Dr. Lobito Benson MD; Dr. Zee Jose DO ~ Mobile Developer: Signed [facility]06-06-2025 [facility]06-06-2025 Discharge summary [facility] Medical Records Department [address] [place] [address] Instructions for Home/Discharge Instructions 11/03/24 1129 MR#: [id number] Acct: [id number] Name: DESIRE CHAUDHRY Rep #:[id number] : 1950 73 From: Teja post MD PCP: Dr. Zee Jose DO Status:ADM IN Discharge Instructions Diet Discharge Diet: No restrictions DC O2, CPAP, BIPAP needs Home O2 Discharge instructions: No Dressing / Incision Discharge Activity: Return to Normal Activity Dressing / Incision Call your doctor if you observe: Fever of 101 or Higher, Shortness of breath, Dizziness, Fainting spells, Swelling in the ankles, Chest pain and Increased palpitations (irregular heartbeat) Follow Up Care Test Results: Test results from this visit will be discussed in further detail at your follow- up appointment, if applicable. Discharge Plan Admission Admit Date/Time: 10/31/24 18:12 Attending Provider: Teja Zeng Primary Care Provider: Zee Jose Consulting Providers: Zhane Stone; Laura Sol Discharge Orders/Prescriptions Prescriptions: New prednisone 10 mg tablet 10 mg PO DAILY Qty: 20 0RF Rx Instructions: 3 tablets daily for 3 days then 2 tablets daily for 3 days then 1 tablet daily for 3 days then halftablet daily for 4 days Continued gemfibrozil 600 MG tablet 600 mg PO BID Eliquis 5 mg tablet 5 mg PO BID sulfamethoxazole-trimethoprim 400-80 mg tablet 1 tab PO BID gabapentin 100 mg capsule 200 mg PO BID docusate sodium [Col-Rite] 100 mg capsule 100 mg PO BID Referrals / Follow Up: Zee Jose DO [Primary Care Provider] - Within 1 Week Disposition Disposition (needs filled in before D/C Order can be placed): Assisted Living 11/03/24 1133Teja Zeng MD CC: Dr. Zhane Stone DO; Dr. Zee Jose DO; Dr. Laura Sol MD ~ Signed [facility]06-05-2025 Progress note Author [facility] Note Date/Time November 02, 2024 4:30p m [facility] Medical Records Department [address] [place] [address] Progress Note 11/02/24 1627 MR#: [id number] Acct: [id number] Name: DESIRE CHAUDHRY Rep #:[id number] : 1950 73 From: Laura Sol MD PCP: Dr. Zee Jose DO Status:ADM IN Location: [place] [address] Subjective Subjective Patient seen and examined. She had no complaints and was on 3 L of oxygen today. Says she was feeling better. Patient tells me that she does not wear any oxygen at home during the day. However according to case management it doesappear that patient is post to be wearing 2 L continuous oxygen. Review systemsotherwise negative. Objective Data Objective Data Vital Signs: Vital Signs Temp Pulse Resp BP Pulse Ox O2 Del Method O2 Flow Rate 98.1 F 69 18 109/68 93 Nasal Cannula 2 11/02/24 10:15 11/02/24 11:40 11/02/24 11:40 11/02/24 10:15 11/02/24 14:03 11/02/24 14:03 11/02/24 14:03 FiO2 35 11/02/24 03:55 Oxygen Flow Rate (L/min) 2 Oxygen Delivery Method Nasal Cannula Weight: 255 lb 4.725 oz Body Mass Index (BMI) 41.2 Intake & Output: Intake and Output for Last 24 Hours 10/31/24 11/01/24 11/02/24 23:59 23:59 23:59 Intake Total 2371.1 / 2671.1 1300 / 1300 520 / 520 Output Total 500 / 500 Balance 2371.1 / 2671.1 1300 / 1300 20 / 20 Lab / Micro Data 11/02/24 04:40 11/02/24 04:40 Labs: Laboratory Results - last 24 hr 11/02/24 04:40: WBC 4.6, RBC 2.88 L, Hgb 9.2 L, Hct 29.3 L, MCV 101.7 H, MCH 31.9, MCHC 31.4 L, RDW Std Deviation 51.2 H, RDW Coeff of Alverto 14.0, Plt Count 162, MPV 10.8, Immature Gran % (Auto) 0.900, Neut % (Auto) 86.9 H, Lymph % (Auto) 7.4 L, Sequoyah % (Auto) 4.8, Eos % (Auto) 0.0, Baso % (Auto) 0.0, Absolute Neuts (auto) 4.0, Absolute Lymphs (auto) 0.34 L, Nucleated RBC % 0, Sodium 141, Potassium 4.9, Chloride 104, Carbon Dioxide 25.5, Anion Gap 11, BUN 36 H, Creatinine 1.65 H, Estim Creat Clear Calc 39.26 L, Est GFR (MDRD) Non-Af 33 L, BUN/Creatinine Ratio 21.9 H, Glucose 131 H, Calcium 8.5 Micro: Microbiology 10/31/24 13:55 Blood Culture (Wb) - Venous Blood Culture - Preliminary No growth in 48 hours. 10/31/24 13:30 Blood Culture (Wb) - Venous Blood Culture - Preliminary No growth in 48 hours. 10/31/24 14:55 Urine, Clean Catch Urine Culture - Final Mixed Gram Positive Organisms 10/31/24 20:24 Mucosa - Nasopharyngeal Respiratory Panel (PCR) - Final 10/31/24 13:40 Mucosa - Nose SARS-CoV-2, Influenza & RSV (PCR) - Final Physical Exam Const alert, oriented x3, no apparent distress and well nourished; Negative for average body habitus or healthy appearing Constitutional Narrative: class III obesity General Appearance: cooperative HEENT normocephalic, head/scalp atraumatic, hearing grossly normal bilaterally and moist oral mucous membranes Eyes EOMs intact bilaterally and conjunctivae normal Eyes Narrative: No scleral icterus Neck no lymphadenopathy and supple Lymph Lymphatic: no lymphedema noted Resp Resp Narrative: mildly diminished breath sounds bibasally, no wheezes or crackles. On 2L of oxygen by nasal canula. Cardio regular rate, regular rhythm, S1 normal heart sound, S2 normal heart sound and no murmurs GI normal to inspection, nondistended, normoactive bowel sounds, soft to palpation,non-tender and non-distended GI Narrative: obese abdomen Extremity normal capillary refill Extremity Narrative: Trace bilateral lower extremity pitting edema, no clubbing or cyanosis noted General Extremity: no tenderness to palpation of joints or extremities Skin Skin Narrative: No significant wounds, bilateral lower extremities are consistent with chronic venous stasis changes in the skin Neuro CN's II-XII intact bilaterally and no focal motor deficits Neuro Narrative: Spontaneously moves all 4 extremities Motor Exam: general weakness Psych thought process normal and cooperative Appearance: appropriate Assessment & Plan Assessment/Plan (1) CHF (congestive heart failure): (2) Elevated troponin: (3) Acute respiratory failure with hypoxia and hypercapnia: PLAN: Plan #Acute hypoxic and hypercapnic respiratory failure due to acute exacerbation of COPD * now on 2L of oxygen. * on breathing treatment with bronchodilators. Titrate oxygen to maintain sats >90% * on Iv solumedrol 40mg q8 * 2D echo showed EF of 65% with mild concentric LVH and stage I diastolic dysfunction; left atrium is severely enlarged. RVSP is 47mmHg. #Elevated troponin: #Acute metabolic encephalopathy: * thought to be due to demand ischemia from hypoxia. * Her BNP was elevated though. Resolved. Now alert and communicative. #CKD IIIb: Cr is 1.65. was 1.71 on admission> Baseline Cr is ~ 1.7. #Bilateral carotid artery disease * imagine showed mild right ICA and moderate left ICA. * to follow up with vascular surgery on outpatient basis * #History of PE: on eliquis #Chronic thrombocytopenia: * have improved to 162 today. Will monitor. #Hyperlipidemia: on gemfibrozil #History of peripheral neuropathy: on gabapentin #DVT prophylaxis: on eliquis Disposition; anticipate dc over the next 24 hours. Charges/Coding Visit Charges Inpatient E&M: 98662 Subs Hosp L2 11/02/24 1630 <Electronically signed by Laura Sol MD> Laura Sol MD Cosigner Signature (if applicable): CC: ~ Signed [facility] Work Phone: 1(247) 739-858106-05-2025 Progress note [facility] Medical Records Department [address] [place] [address] Progress Note 11/02/24 1627 MR#: [id number] Acct: [id number] Name: DESIRE CHAUDHRY Rep #:[id number] : 1950 73 From: Laura Sol MD PCP: Dr. Zee Jose, DO Status:ADM IN Location: [place] [address] Subjective Subjective Patient seen and examined. She had no complaints and was on 3 L of oxygen today. Says she was feeling better. Patient tells me that she does not wear any oxygen at home during the day. However according to case management it doesappear that patient is post to be wearing 2 L continuous oxygen. Review systemsotherwise negative. Objective Data Objective Data Vital Signs: Vital Signs Temp Pulse Resp BP Pulse Ox O2 Del Method O2 Flow Rate 98.1 F 69 18 109/68 93 Nasal Cannula 2 11/02/24 10:15 11/02/24 11:40 11/02/24 11:40 11/02/24 10:15 11/02/24 14:03 11/02/24 14:03 11/02/24 14:03 FiO2 35 11/02/24 03:55 Oxygen Flow Rate (L/min) 2 Oxygen Delivery Method Nasal Cannula Weight: 255 lb 4.725 oz Body Mass Index (BMI) 41.2 Intake & Output: Intake and Output for Last 24 Hours 10/31/24 11/01/24 11/02/24 23:59 23:59 23:59 Intake Total 2371.1 / 2671.1 1300 / 1300 520 / 520 Output Total 500 / 500 Balance 2371.1 / 2671.1 1300 / 1300 20 / 20 Lab / Micro Data 11/02/24 04:40 11/02/24 04:40 Labs: Laboratory Results - last 24 hr 11/02/24 04:40: WBC 4.6, RBC 2.88 L, Hgb 9.2 L, Hct 29.3 L, MCV 101.7 H, MCH 31.9, MCHC 31.4 L, RDWStd Deviation 51.2 H, RDW Coeff of Alverto 14.0, Plt Count 162, MPV 10.8, Immature Gran % (Auto) 0.900,Neut % (Auto) 86.9 H, Lymph % (Auto) 7.4 L, Sequoyah % (Auto) 4.8, Eos % (Auto) 0.0, Baso % (Auto) 0.0,Absolute Neuts (auto) 4.0, Absolute Lymphs (auto) 0.34 L, Nucleated RBC % 0, Sodium 141, Potassium 4.9, Chloride 104, Carbon Dioxide 25.5, Anion Gap 11, BUN 36 H, Creatinine 1.65 H, Estim Creat ClearCalc 39.26 L, Est GFR (MDRD) Non-Af 33 L, BUN/Creatinine Ratio 21.9 H, Glucose 131 H, Calcium 8.5 Micro: Microbiology 10/31/24 13:55 Blood Culture (Wb) - Venous Blood Culture - Preliminary No growth in 48 hours. 10/31/24 13:30 Blood Culture (Wb) - Venous Blood Culture - Preliminary No growth in 48 hours. 10/31/24 14:55 Urine, Clean Catch Urine Culture - Final Mixed Gram Positive Organisms 10/31/24 20:24 Mucosa - Nasopharyngeal Respiratory Panel (PCR) - Final 10/31/24 13:40 Mucosa - Nose SARS-CoV-2, Influenza & RSV (PCR) - Final Physical Exam Const alert, oriented x3, no apparent distress and well nourished; Negative for average body habitus or healthy appearing Constitutional Narrative: class III obesity General Appearance: cooperative HEENT normocephalic, head/scalp atraumatic, hearing grossly normal bilaterally and moist oral mucous membranes Eyes EOMs intact bilaterally and conjunctivae normal Eyes Narrative: No scleral icterus Neck no lymphadenopathy and supple Lymph Lymphatic: no lymphedema noted Resp Resp Narrative: mildly diminished breath sounds bibasally, no wheezes or crackles. On 2L of oxygen by nasal canula. Cardio regular rate, regular rhythm, S1 normal heart sound, S2 normal heart sound and no murmurs GI normal to inspection, nondistended, normoactive bowel sounds, soft to palpation,non-tender and non-distended GI Narrative: obese abdomen Extremity normal capillary refill Extremity Narrative: Trace bilateral lower extremity pitting edema, no clubbing or cyanosis noted General Extremity: no tenderness to palpation of joints or extremities Skin Skin Narrative: No significant wounds, bilateral lower extremities are consistent with chronic venous stasis changes in the skin Neuro CN's II-XII intact bilaterally and no focal motor deficits Neuro Narrative: Spontaneously moves all 4 extremities Motor Exam: general weakness Psych thought process normal and cooperative Appearance: appropriate Assessment & Plan Assessment/Plan (1) CHF (congestive heart failure): (2) Elevated troponin: (3) Acute respiratory failure with hypoxia and hypercapnia: PLAN: Plan #Acute hypoxic and hypercapnic respiratory failure due to acute exacerbation of COPD * now on 2L of oxygen. * on breathing treatment with bronchodilators. Titrate oxygen to maintain sats >90% * on Iv solumedrol 40mg q8 * 2D echo showed EF of 65% with mild concentric LVH and stage I diastolic dysfunction; left atrium is severely enlarged. RVSP is 47mmHg. #Elevated troponin: #Acute metabolic encephalopathy: * thought to be due to demand ischemia from hypoxia. * Her BNP was elevated though. Resolved. Now alert and communicative. #CKD IIIb: Cr is 1.65. was 1.71 on admission> Baseline Cr is ~ 1.7. #Bilateral carotid artery disease * imagine showed mild right ICA and moderate left ICA. * to follow up with vascular surgery on outpatient basis * #History of PE: on eliquis #Chronic thrombocytopenia: * have improved to 162 today. Will monitor. #Hyperlipidemia: on gemfibrozil #History of peripheral neuropathy: on gabapentin #DVT prophylaxis: on eliquis Disposition; anticipate dc over the next 24 hours. Charges/Coding Visit Charges Inpatient E&M: 93534 Subs Hosp L2 11/02/24 1630 Laura Sol MD Cosigner Signature (if applicable): CC: ~ Signed [facility]06-04-2025 Progress note Author [facility] Note Date/Time November 01, 2024 5:43p m [facility] Medical Records Department [address] [place] [address] Progress Note 11/01/24 1634 MR#: [id number] Acct: [id number] Name: DESIRE CHAUDHRY Rep #:[id number] : 1950 73 From: Laura Sol MD PCP: Dr. Zee Jose, DO Status:ADM IN Location: [place] [address] Subjective Subjective Patient seen and examined. She was feeling much better today and felt her breathing had improved. She denied any cough, chest pain, palpitations, nausea, vomiting or any other symptoms. Review of systems is otherwise negative. She is on 4L of oxygen by nasal canula. Objective Data Objective Data Vital Signs: Vital Signs Temp Pulse Resp BP Pulse Ox O2 Del Method O2 Flow Rate 99.4 F H 70 20 H 112/68 93 Nasal Cannula 4 11/01/24 16:00 11/01/24 16:00 11/01/24 16:00 11/01/24 16:00 11/01/24 16:00 11/01/24 16:00 11/01/24 16:06 FiO2 35 11/01/24 02:45 Oxygen Flow Rate (L/min) 4 Oxygen Delivery Method Nasal Cannula Weight: 259 lb 15.999 oz Body Mass Index (BMI) 41.9 Intake & Output: Intake and Output for Last 24 Hours 10/30/24 10/31/24 11/01/24 23:59 23:59 23:59 Intake Total 2371.1 / 2671.1 700 / 700 Balance 2371.1 / 2671.1 700 / 700 Lab / Micro Data 11/01/24 04:42 11/01/24 04:42 Labs: Laboratory Results - last 24 hr 10/31/24 18:23: Troponin T Hi Sens 4Hr 32 H 11/01/24 04:42: WBC 4.5, RBC 2.81 L, Hgb 8.9 L, Hct 28.8 L, MCV 102.5 H, MCH 31.7, MCHC 30.9 L, RDW Std Deviation 52.5 H, RDW Coeff of Alverto 14.1, Plt Count 142 L, MPV 10.5, Immature Gran % (Auto) 0.700, Neut % (Auto) 88.9 H, Lymph % (Auto) 7.3 L, Sequoyah % (Auto) 2.9, Eos % (Auto) 0.0, Baso % (Auto) 0.2, Absolute Neuts (auto) 4.0, Absolute Lymphs (auto) 0.33 L, Nucleated RBC % 0, Sodium 138, Potassium 5.0, Chloride 104, Carbon Dioxide 25.3, Anion Gap 9, BUN 29 H, Creatinine 1.61 H, Estim Creat Clear Calc 40.47 L, Est GFR (MDRD) Non-Af 34 L, BUN/Creatinine Ratio 18.0, Glucose 121 H, Calcium 8.6, Phosphorus 3.7, Magnesium2.0, Total Bilirubin 0.16, AST 13, ALT 6, Alkaline Phosphatase 58, Total Protein6.1, Albumin 3.2 L, Globulin 2.9, Albumin/Globulin Ratio 1.1 Micro: Microbiology 10/31/24 20:24 Mucosa - Nasopharyngeal Respiratory Panel (PCR) - Final 10/31/24 13:40 Mucosa - Nose SARS-CoV-2, Influenza & RSV (PCR) - Final ABG Data ABG results: ABG 10/31/24 10/31/24 11/01/24 17:24 21:30 01:14 Specimen Type ART ART ART Sample Site L Radial L Radial L Radial pH 7.18 L* 7.25 L 7.25 L Bicarbonate Actual 28.6 H 34.2 H 29.4 H Total CO2 31 37 31 Base Excess 0 7 H 2 O2 Saturation 82 L 79 L 91 L O2 % 25.0 5.0 35.0 ABG pCO2 76.9 H* 77.3 H* 66.6 H ABG pO2 59 L 53 L 71 L Rhiannon Test Positive Positive Positive Respiration Rate 16 O2 Delivery Device BiPAP Cannula BiPAP Vent Mode Not entered Not entered AVAPS Tidal Volume 500.0 POC PEEP 10 Peak Inspir Pressure 23 Crit Call To/Read Back Yes Yes Blood Gas Notified Whom chichi Stone Blood Gas Notified Time 17:27:12 21:33:07 11/01/24 05:34 Specimen Type ART Sample Site R Radial pH 7.27 L Bicarbonate Actual 31.4 H Total CO2 34 Base Excess 5 H O2 Saturation 93 L O2 % 35.0 ABG pCO2 68.3 H* ABG pO2 79 Rhiannon Test Positive Respiration Rate 16 O2 Delivery Device BiPAP Vent Mode AVAPS Tidal Volume 500.0 POC PEEP 10 Peak Inspir Pressure 28 Crit Call To/Read Back Yes Blood Gas Notified Whom DR RIVERA Blood Gas Notified Time 05:36:18 Radiography Diagnostic Testing: Radiology Impression Echocardiogram 10/31/24 20:01 Interpretation Summary The study was technically difficult. Mild concentric left ventricular hypertrophy. The LV systolic function is normal. EF is 65 %. Stage 1 diastolic dysfunction. The left atrium is severely enlarged. Right ventricular systolic pressure estimated to be 47 mmHg. Aortic sclerosis, no stenosis. Mildly dilated aortic root. Ordering Physician: Zhane Stone Performed By: Eladio Ho RCS Physical Exam Const alert, oriented x3 and no apparent distress Constitutional Narrative: class III obesity General Appearance: cooperative HEENT normocephalic, head/scalp atraumatic and moist oral mucous membranes Eyes PERRL and EOMs intact bilaterally Neck no lymphadenopathy and supple Lymph Lymphatic: no lymphedema noted Resp normal respiratory effort, normal air movement and clear to auscultation bilaterally Cardio regular rate, regular rhythm, S1 normal heart sound, S2 normal heart sound and no murmurs GI normal to inspection, nondistended, normoactive bowel sounds, soft to palpation,non-tender and non-distended Extremity normal capillary refill, no clubbing, cyanosis or edema and no calf tenderness General Extremity: no tenderness to palpation of joints or extremities Skin General Skin Exam: no breakdown Neuro CN's II-XII intact bilaterally and no focal motor deficits Motor Exam: general weakness Psych thought process normal and cooperative Appearance: appropriate Assessment & Plan Assessment/Plan (1) CHF (congestive heart failure): (2) Elevated troponin: (3) Acute respiratory failure with hypoxia and hypercapnia: PLAN: Plan #Acute hypoxic and hypercapnic respiratory failure due to acute exacerbation of COPD * now on 4L of oxygen. * on breathing treatment with bronchodilators. Titrate oxygen to maintain sats >90% * on Iv solumedrol 40mg q8 * 2D echo shwoed EF of 65% with mild concentric LVH and stage I diastolic dysfunction; left atrium is severely enlarged. RVSP is 47mmHg. #Elevated troponin: #Acute metabolic encephalopathy: * thought to be due to demand ischemia from hypoxia. * Her BNP was elevated though. Resolved. Now alert and communicative. #CKD IIIb: Cr is 1.61. was 1.71 on admission> Baseline Cr is ~ 1.7. #Bilateral carotid artery disease * imagine showed mild right ICA and moderate left ICA. * to follow up with vascular surgery on outpatient basis * #History of PE: on eliquis #Chronic thrombocytopenia: * platelets are 142 today. * Was 156 yesterday, though she has had occasional thrombocytopenia. Will monitor closely. #Hyperlipidemia: on gemfibrozil #History of peripheral neuropathy: on gabapentin #DVT prophylaxis: on eliquis Charges/Coding Visit Charges Inpatient E&M: 51132 Subs Hosp L2 11/01/24 1743 <Electronically signed by Laura Sol MD> Laura Sol MD Cosigner Signature (if applicable): CC: ~ Signed [facility] Work Phone: 1(856) 470-287206-04-2025 Progress note [facility] Medical Records Department [address] [place] [address] Progress Note 11/01/24 1634 MR#: [id number] Acct: [id number] Name: DESIRE CHAUDHRY Rep #:[id number] : 1950 73 From: Laura Sol MD PCP: Dr. Zee Jose, DO Status:ADM IN Location: [place] [address] Subjective Subjective Patient seen and examined. She was feeling much better today and felt her breathing had improved. She denied any cough, chest pain, palpitations, nausea, vomiting or any other symptoms. Review of systems is otherwise negative. She is on 4L of oxygen by nasal canula. Objective Data Objective Data Vital Signs: Vital Signs Temp Pulse Resp BP Pulse Ox O2 Del Method O2 Flow Rate 99.4 F H 70 20 H 112/68 93 Nasal Cannula 4 11/01/24 16:00 11/01/24 16:00 11/01/24 16:00 11/01/24 16:00 11/01/24 16:00 11/01/24 16:00 11/01/24 16:06 FiO2 35 11/01/24 02:45 Oxygen Flow Rate (L/min) 4 Oxygen Delivery Method Nasal Cannula Weight: 259 lb 15.999 oz Body Mass Index (BMI) 41.9 Intake & Output: Intake and Output for Last 24 Hours 10/30/24 10/31/24 11/01/24 23:59 23:59 23:59 Intake Total 2371.1 / 2671.1 700 / 700 Balance 2371.1 / 2671.1 700 / 700 Lab / Micro Data 11/01/24 04:42 11/01/24 04:42 Labs: Laboratory Results - last 24 hr 10/31/24 18:23: Troponin T Hi Sens 4Hr 32 H 11/01/24 04:42: WBC 4.5, RBC 2.81 L, Hgb 8.9 L, Hct 28.8 L, MCV 102.5 H, MCH 31.7, MCHC 30.9 L, RDWStd Deviation 52.5 H, RDW Coeff of Alverto 14.1, Plt Count 142 L, MPV 10.5, Immature Gran % (Auto) 0.700, Neut % (Auto) 88.9 H, Lymph % (Auto) 7.3 L, Sequoyah % (Auto) 2.9, Eos % (Auto) 0.0, Baso % (Auto) 0.2, Absolute Neuts (auto) 4.0, Absolute Lymphs (auto) 0.33 L, Nucleated RBC % 0, Sodium 138, Potassium 5.0, Chloride 104, Carbon Dioxide 25.3, Anion Gap 9, BUN 29 H, Creatinine 1.61 H, Estim Creat Clear Calc 40.47 L, Est GFR (MDRD) Non-Af 34 L, BUN/Creatinine Ratio 18.0, Glucose 121 H, Calcium 8.6, Phosphorus 3.7, Magnesium2.0, Total Bilirubin 0.16, AST 13, ALT 6, Alkaline Phosphatase 58, Total Protein6.1, Albumin 3.2 L, Globulin 2.9, Albumin/Globulin Ratio 1.1 Micro: Microbiology 10/31/24 20:24 Mucosa - Nasopharyngeal Respiratory Panel (PCR) - Final 10/31/24 13:40 Mucosa - Nose SARS-CoV-2, Influenza & RSV (PCR) - Final ABG Data ABG results: ABG 10/31/24 10/31/24 11/01/24 17:24 21:30 01:14 Specimen Type ART ART ART Sample Site L Radial L Radial L Radial pH 7.18 L* 7.25 L 7.25 L Bicarbonate Actual 28.6 H 34.2 H 29.4 H Total CO2 31 37 31 Base Excess 0 7 H 2 O2 Saturation 82 L 79 L 91 L O2 % 25.0 5.0 35.0 ABG pCO2 76.9 H* 77.3 H* 66.6 H ABG pO2 59 L 53 L 71 L Rhiannon Test Positive Positive Positive Respiration Rate 16 O2 Delivery Device BiPAP Cannula BiPAP Vent Mode Not entered Not entered AVAPS Tidal Volume 500.0 POC PEEP 10 Peak Inspir Pressure 23 Crit Call To/Read Back Yes Yes Blood Gas Notified Whom chichi Stone Blood Gas Notified Time 17:27:12 21:33:07 11/01/24 05:34 Specimen Type ART Sample Site R Radial pH 7.27 L Bicarbonate Actual 31.4 H Total CO2 34 Base Excess 5 H O2 Saturation 93 L O2 % 35.0 ABG pCO2 68.3 H* ABG pO2 79 Rhiannon Test Positive Respiration Rate 16 O2 Delivery Device BiPAP Vent Mode AVAPS Tidal Volume 500.0 POC PEEP 10 Peak Inspir Pressure 28 Crit Call To/Read Back Yes Blood Gas Notified Whom DR RIVERA Blood Gas Notified Time 05:36:18 Radiography Diagnostic Testing: Radiology Impression Echocardiogram 10/31/24 20:01 Interpretation Summary The study was technically difficult. Mild concentric left ventricular hypertrophy. The LV systolic function is normal. EF is 65 %. Stage 1 diastolic dysfunction. The left atrium is severely enlarged. Right ventricular systolic pressure estimated to be 47 mmHg. Aortic sclerosis, no stenosis. Mildly dilated aortic root. Ordering Physician: Zhane Stone Performed By: Eladio Ho RCS Physical Exam Const alert, oriented x3 and no apparent distress Constitutional Narrative: class III obesity General Appearance: cooperative HEENT normocephalic, head/scalp atraumatic and moist oral mucous membranes Eyes PERRL and EOMs intact bilaterally Neck no lymphadenopathy and supple Lymph Lymphatic: no lymphedema noted Resp normal respiratory effort, normal air movement and clear to auscultation bilaterally Cardio regular rate, regular rhythm, S1 normal heart sound, S2 normal heart sound and no murmurs GI normal to inspection, nondistended, normoactive bowel sounds, soft to palpation,non-tender and non-distended Extremity normal capillary refill, no clubbing, cyanosis or edema and no calf tenderness General Extremity: no tenderness to palpation of joints or extremities Skin General Skin Exam: no breakdown Neuro CN's II-XII intact bilaterally and no focal motor deficits Motor Exam: general weakness Psych thought process normal and cooperative Appearance: appropriate Assessment & Plan Assessment/Plan (1) CHF (congestive heart failure): (2) Elevated troponin: (3) Acute respiratory failure with hypoxia and hypercapnia: PLAN: Plan #Acute hypoxic and hypercapnic respiratory failure due to acute exacerbation of COPD * now on 4L of oxygen. * on breathing treatment with bronchodilators. Titrate oxygen to maintain sats >90% * on Iv solumedrol 40mg q8 * 2D echo shwoed EF of 65% with mild concentric LVH and stage I diastolic dysfunction; left atrium is severely enlarged. RVSP is 47mmHg. #Elevated troponin: #Acute metabolic encephalopathy: * thought to be due to demand ischemia from hypoxia. * Her BNP was elevated though. Resolved. Now alert and communicative. #CKD IIIb: Cr is 1.61. was 1.71 on admission> Baseline Cr is ~ 1.7. #Bilateral carotid artery disease * imagine showed mild right ICA and moderate left ICA. * to follow up with vascular surgery on outpatient basis * #History of PE: on eliquis #Chronic thrombocytopenia: * platelets are 142 today. * Was 156 yesterday, though she has had occasional thrombocytopenia. Will monitor closely. #Hyperlipidemia: on gemfibrozil #History of peripheral neuropathy: on gabapentin #DVT prophylaxis: on eliquis Charges/Coding Visit Charges Inpatient E&M: 84034 Subs Hosp L2 11/01/24 1743 Laura Sol MD Cosigner Signature (if applicable): CC: ~ Signed [facility]06-04-2025 Progress note Author Zhane Stone [facility] Note Date/Time October 31, 2024 10:16 pm [facility] Medical Records Department [address] [place] [address] Progress Note - Hospitalist 10/31/245 MR#: [id number] Acct: [id number] Name: DESIRE CHAUDHRY Rep #:[id number] : 1950 73 From: Zhane Stone DO PCP: Dr. Zee Jose, DO Status:ADM IN Location: [facility] R[facility]790- 1 Sepsis Attestation Sepsis Alert: Yes Sepsis Attestation: Sepsis Ruled Out Date exam was performed: 10/31/24 Time exam was performed: 19:00 10/31/24 2335 <Electronically signed by Zhane Stone DO> Cosigner Signature (if applicable): CC: ~ Signed [facility] Work Phone: [phone] 978-707306-04-2025 History and physical note Author Zhane Stone [facility] Note Date/Time October 31, 2024 10:15 pm [facility] Medical Records Department [address] [place] [address] H&P Exam - Hospitalist 10/31/24 1810 MR#: [id number] Acct: [id number] Name: DESIRE CHAUDHRY Rep #:[id number] : 1950 73 From: Zhane Stone DO PCP: Dr. Zee Jose, Status:ADM IN Location: [place] [id number] HPI - General General Date of Admission: 10/31/24 Date of Service: 10/31/24 Chief Complaint: Shortness of breath HPI Narrative DESIRE CHAUDHRY, is a 73 F who presented to the emergency department at [facility] on 10/31/2024 with a chief complaint of shortness of breath. Patient told the emergency department that she went to bed last night and felt well and then got up early this morning and felt weak when she tried to get up off the toilet but was ultimately able to do so and then went back downstairs tolay down on the couch. At that time she put her oxygen on. She is supposed to wear 2 L at night however family reported that she is intermittently compliant with everything and, does what she wants. Family noticed that she looked blue at the time they visited. She reported she been compliant with all of her medicines lately however again family does report she is intermittently compliant. Patient was fairly sleepy at the time of my evaluation and was on BiPAP so is unable to obtain any further history from her at the time of my evaluation in the time of admission. Vital signs on presentation showed temperature of 97.6, heart rate 61, respiratory rate 20, blood pressure was 94/75 and pulse ox was 69% on room air. She improved to 98% on 3 L nasal cannula but remained labored so she was placed on BiPAP. CBC shows no leukocytosis. She has a chronic stable anemia with a hemoglobin of 10.0. She has a slight left shift which she does appear to have fairly chronically. Coags are slightly elevated which is to be suspected due toher Eliquis use at baseline. Chemistry panel shows stable CKD with normal electrolytes, glucose of 112 a lactic acid of less than 1 and normal LFTs. Her initial troponin was 35 with a delta of 30 and a 4-hour troponin of 32. Her proBNP is a bit elevated at 1111. COVID/flu/RSV is unremarkable. Blood and urine cultures were obtained in emergency department but are pending at the timeof admission. Respiratory viral panel is pending. Chest x-ray shows prominent lung markings bilaterally, small bilateral pleural effusions with cardiac enlargement but no other acute findings. Patient has a significant severe kyphosis and restrictive lung disease related to her kyphosis and instrumentation for fixation. [facility] Medical History Chronic anemia Constipation Emphysema lung Thrombocytopenia Stroke/cerebrovascular accident History of pulmonary embolism HLD (hyperlipidemia) Chronic back pain COPD (chronic obstructive pulmonary disease) HTN (hypertension) Home Medications ?Medication ?Instructions ?Recorded ?Last Taken ?Type gemfibrozil 600 mg tablet 600 mg PO BID Check with nina smith 03/03/19 10/31/24 History doctor apixaban 5 mg tablet (Eliquis) 5 mg PO BID 01/21/24 History docusate sodium 100 mg capsule 100 mg PO BID 10/31/24 10/31/24 History (Col-Rite) gabapentin 100 mg capsule 200 mg PO BID 10/31/2410/31 History sulfamethoxazole 400 1 tab PO BID 10/31/24 History mg-trimethoprim 80 mg tablet Allergy/AdvReac Type Severity Reaction Status Date / Time No Known Allergies Allergy Verified 10/31/24 13:12 Family History Mother Heart disease Father Heart disease Surgical History Previous back surgery Social History housing: assisted living facility Smoking Status: Former smoker alcohol intake: never substance use type: does not use ROS Review of Systems ROS Unobtainable: due to mental status Vital Signs Vital Signs Vital Signs: 10/31/24 13:12 10/31/24 13:16 10/31/24 13:17 Temperature 97.6 F L 97.6 F L Temperature Source Temporal Temporal Pulse Rate 61 61 Respiratory Rate 20 H 20 H Respiratory Effort Respiratory Depth Respiratory Pattern Blood Pressure 94/75 94/75 Blood Pressure Mean 81 81 Pulse Ox 69 69 98 Oxygen Delivery Method Room Air Room Air Nasal Cannula Oxygen Flow Rate (L/min) 3 Fraction of Inspired Oxygen (FIO2) 10/31/24 13:41 10/31/24 13:41 10/31/24 13:53 Temperature Temperature Source Pulse Rate 61 Respiratory Rate 16 Respiratory Effort Non-Labored Short of Breath Respiratory Depth Normal Respiratory Pattern Normal Blood Pressure Blood Pressure Mean Pulse Ox 96 Oxygen Delivery Method Nasal Cannula Nasal Cannula Oxygen Flow Rate (L/min) 3 3 Fraction of Inspired Oxygen (FIO2) 10/31/24 14:16 10/31/24 14:21 10/31/24 15:00 Temperature 98.3 F 98.6 F Temperature Source Oral Oral Pulse Rate 78 76 Respiratory Rate 19 H 23 H Respiratory Effort Respiratory Depth Respiratory Pattern Blood Pressure 123/97 H 100/57 L Blood Pressure Mean 105 71 Pulse Ox 98 94 94 Oxygen Delivery Method Non-Rebreather @ 15L/min Nasal Cannula Nasal Cannula Oxygen Flow Rate (L/min) 2 2 Fraction of Inspired Oxygen (FIO2) 10/31/24 15:44 10/31/24 16:00 10/31/24 16:23 Temperature 98.6 F Temperature Source Temporal Pulse Rate 68 60 Respiratory Rate 15 17 Respiratory Effort Respiratory Depth Respiratory Pattern Blood Pressure 89/50 L 116/54 L Blood Pressure Mean 63 74 Pulse Ox 100 95 Oxygen Delivery Method Bi-pap Oxygen Flow Rate (L/min) Fraction of Inspired Oxygen (FIO2) 30 10/31/24 16:30 10/31/24 17:00 10/31/24 17:09 Temperature 98 F Temperature Source Pulse Rate 60 63 63 Respiratory Rate 95 H 19 H 19 H Respiratory Effort Respiratory Depth Respiratory Pattern Blood Pressure 124/46 H 112/46 L 112/46 L Blood Pressure Mean 72 68 68 Pulse Ox 94 96 96 Oxygen Delivery Method Bi-pap Bi-pap Oxygen Flow Rate (L/min) Fraction of Inspired Oxygen (FIO2) 10/31/24 17:15 10/31/24 17:30 10/31/24 17:32 Temperature Temperature Source Pulse Rate 68 68 62 Respiratory Rate 22 H 15 16 Respiratory Effort Respiratory Depth Respiratory Pattern Normal Blood Pressure 112/41 L 124/59 H Blood Pressure Mean 62 73 Pulse Ox 100 Oxygen Delivery Method Oxygen Flow Rate (L/min) Fraction of Inspired Oxygen (FIO2) 30 Weight Weight: 116.3 kg Body Mass Index (BMI) 41.3 Physical Exam Const no apparent distress and well nourished; Negative for oriented x3, average body habitus or healthy appearing Constitutional Narrative: Morbidly obese, older, white female, lying in bed, appears comfortable, awakens and tries to communicate but fairly sleepy, does follow commands consistently, but patient does not appear toxic General Appearance: cooperative HEENT normocephalic, head/scalp atraumatic and hearing grossly normal bilaterally HEENT Narrative: Mucous membranes are dry but patient is on BiPAP currently, Mallampati is 3-4, no thrush noted Eyes conjunctivae normal Eyes Narrative: No scleral icterus Neck supple Neck Narrative: Neck is short and thick but trachea is midline Resp No normal respiratory effort, no use of accessory muscles and No clear to auscultation bilaterally Resp Narrative: Severely diminished diffusely with few scattered end expiratory wheezes, currently resting comfortably on BiPAP Auscultation: wheezes; Negative for crackles or rhonchi Cardio regular rate, regular rhythm, S1 normal heart sound, S2 normal heart sound, no murmurs, no rub, no gallops and no clicks GI normal to inspection, nondistended, normoactive bowel sounds, soft to palpation and non-tender GI Narrative: Large protuberant abdomen Extremity Extremity Narrative: Trace bilateral lower extremity pitting edema, no clubbing or cyanosis noted Skin Skin Narrative: No significant wounds, bilateral lower extremities are consistent with chronic venous stasis changes in the skin Neuro Neuro Narrative: Spontaneously moves all 4 extremities but does appear to be generally weak Psych Psych Narrative: Currently calm Results Lab / Micro Data 10/31/24 13:30 10/31/24 13:30 Labs: Laboratory Results - last 24 hr 10/31/24 13:30: WBC 4.8, RBC 3.15 L, Hgb 10.0 L, Hct 33.1 L, MCV 105.1 H, MCH 31.7, MCHC 30.2 L, RDW Std Deviation 54.5 H, RDW Coeff of [place]ver[place] 14.4, Plt Count 156, MPV 10.5, Immature Gran % (Auto) 1.400 H, Neut % (Auto) 78.2 H, Lymph % (Auto) 10.1 L, [place] % (Auto) 9.9, Eos % (Auto) 0.2, Baso % (Auto) 0.2, Absolute Neuts (auto) 3.8, Absolute Lymphs (auto) 0.49 L, Nucleated RBC % 0, PT 15.0 H, INR 1.2, APTT 32.4, Sodium 139, Potassium 4.5, Chloride 101, Carbon Dioxide 29.1, Anion Gap 9, BUN 27 H, Creatinine 1.71 H, Estim Creat Clear Calc 37.98 L, Est GFR (MDRD) Non-Af 31 L, BUN/Creatinine Ratio 15.8, Glucose 112 H, Lactic Acid < 1.0, Calcium 8.9, Total Bilirubin 0.17, AST 19, ALT 8, Alkaline Phosphatase 66, Troponin T High Sens 35 H, NT pro BNP II 1111 H, Total Protein 6.8, Albumin 3.7, Globulin 3.2, Albumin/Globulin Ratio 1.2 10/31/24 14:55: Urine Color Yellow, Urine Clarity Cloudy, Urine pH 6.0, Ur Specific [place] 1.020, Urine Protein 500 H, Urine Glucose (UA) Normal, Urine Ketones Negative, Urine Occult Blood Negative, Urine Nitrite Negative, Urine Bilirubin Negative, Urine Urobilinogen Normal, Ur Leukocyte Esterase Negative, Urine RBC 0-5 SEEN, Urine WBC 0-5 SEEN, Ur Squamous Epith Cells 0-5 SEEN, Amorphous Sediment 3+, Urine Bacteria 0 SEEN, Urine Mucus 0 SEEN 10/31/24 15:28: Troponin T Hi Sens 2 Hr 30 H Micro: Microbiology 10/31/24 13:40 Mucosa - Nose SARS-CoV-2, Influenza & RSV (PCR) - Final ABG Data ABG results: ABG 10/31/24 10/31/24 14:02 17:24 Specimen Type ART ART Sample Site L Brach L Radial pH 7.18 L* 7.18 L* Bicarbonate Actual 32.5 H 28.6 H Total CO2 35 31 Base Excess 4 H 0 O2 Saturation 90 L 82 L O2 % 2.0 25.0 ABG pCO2 88.1 H* 76.9 H* ABG pO2 76 59 L Rhiannon Test Positive Positive O2 Delivery Device Cannula BiPAP Vent Mode Not entered Not entered Crit Call To/Read Back Yes Yes Blood Gas Notified Whom chichi Blood Gas Notified Time 14:04:53 17:27:12 Imaging Radiology Impression Chest X-Ray 10/31/24 13:31 IMPRESSION: Prominent lung markings bilaterally. Can not exclude developing infiltrate. Small bilateral pleural effusions. Cardiac enlargement. Other nonacute findings documented above. Reading Location: [place] [address] Assessment & Plan Assessment/Plan (1) Acute respiratory failure with hypoxia and hypercapnia: (2) Elevated troponin: (3) Chronic obstructive pulmonary disease with (acute) exacerbation: PLAN: Plan Acute hypoxic and hypercapnic respiratory failure secondary to acute exacerbation of COPD - Patient does not seem to have cough or any signs of pneumonia at this time -Will hold off on antibiotics for now - COVID/flu/RSV are negative - Check respiratory viral panel - Blood and urine cultures were obtained in the emergency department - Was given 1 dose of IV Lasix in the ED as BNP was elevated however I do not feel she is in acute heart failure -Solu-Medrol 40 every 8 - Continue BiPAP and repeat ABG at 5 AM--> follow-up ABGs are showing resolutionof her hypercapnia slowly - N.p.o. until off BiPAP - Aggressive pulmonary toilet with scheduled and as needed DuoNebs - Wean oxygen as able - Will need ambulatory pulse ox prior to discharge Elevated troponin - Highly suspect related to demand ischemia from hypoxemia - Will check echocardiogram with elevated BNP in addition to elevated troponin - Last echocardiogram showed EF of 60% with stage I diastolic dysfunction, RV systolic function appeared to be normal but pulmonary artery pressures were not estimated Toxic/metabolic encephalopathy - Related to acute hypercapnia - Seems to be slowly improving - Continue to follow Chronic macrocytic anemia - Hemoglobin is stable - Repeat in a.m. CKD stage IIIb - BUN is 27 serum creatinine 1.71 - Close to baseline - Will trend - Avoid nephrotoxins as able - No further workup required at this time Bilateral carotid artery stenosis - Mild right ICA/moderate left ICA - Continue risk factor modification - Continue outpatient follow-up with vascular surgery Chronic lymphedema secondary to venous insufficiency - IV diuretics given the emergency department - Does have evidence of venous reflux on venous vascular study History of pulmonary embolus - Continue home Eliquis COPD/emphysema - Interestingly patient is not on any home inhalers but has significant emphysematous changes on her CAT scan - Treatment as noted above - Recommend outpatient follow-up with pulmonary medicine after discharge History of thrombocytopenia - Currently normal - Will trend Hyperlipidemia - Continue home gemfibrozil Neuropathy - Continue home gabapentin Chronic constipation - Continue home docusate - As needed senna available Chronic back pain - As needed Tylenol DVT prophylaxis - Continue full dose Eliquis CODE STATUS -DNR CCA with no intubation Charges/Coding Visit Charges Inpatient E&M: 57381 Init Hosp L3 10/31/242154 <Electronically signed by Zhane Stone DO> Cosigner Signature (if applicable): CC: Dr. Zhane Stone DO; Dr. Zee Jose DO~ Signed ADDENDUM by Dr. Zhane Stone DO on 10/31/24 at 2215 Addendum . 10/31/242214<Electronically signed by Zhane Stone DO> Cosigner Signature (if applicable): cc: Dr. Zhane Stone DO; Dr. Zee Jose DO ~* Signed [facility] Work Phone: 1(384) 516-104806-03-2025 Progress note [facility] Medical Records Department [address] [place] [address] Progress Note - Hospitalist 10/31/242214 MR#: [id number] Acct: [id number] Name: DESIRE CHAUDHRY Rep #:[id number] : 1950 73 From: Zhane Stone DO PCP: Dr. Zee Jose DO Status:ADM IN Location: [place] [id number]- [id number] Sepsis Attestation Sepsis Alert: Yes Sepsis Attestation: Sepsis Ruled Out Date exam was performed: 10/31/24 Time exam was performed: 19:00 10/31/242215 Cosigner Signature (if applicable): CC: ~ Signed [facility]06-03-2025 History and physical note [facility] Medical Records Department [address] [place] [address] H&P Exam - Hospitalist 10/31/24 1810 MR#: [id number] Acct: [id number] Name: DESIRE CHAUDHRY Rep #:[id number] : 1950 73 From: Zhane Stone DO PCP: Dr. Zee Jose DO Status:ADM IN Location: [place] [id number]- [id number] HPI - General General Date of Admission: 10/31/24 Date of Service: 10/31/24 Chief Complaint: Shortness of breath HPI Narrative DESIRE CHAUDHRY, is a 73 F who presented to the emergency department at [facility] on10/31/2024 with a chief complaint of shortness of breath. Patient told the emergency department that she went to bed last night and felt well and then got up early this morning and felt weak when she tried to get up off the toilet but was ultimately able to do so and then went back downstairs tolay down on the couch. At that time she put her oxygen on. She is supposed to wear 2 L at night however family reported that she is intermittently compliant with everything and, does what she wants. Familynoticed that she looked blue at the time they visited. She reported she been compliant with all of her medicines lately however again family does report she is intermittently compliant. Patient was fairly sleepy at the time of my evaluation and was on BiPAP so is unable to obtain any further history from her at the time of my evaluation in the time of admission. Vital signs on presentation showed temperature of 97.6, heart rate 61, respiratory rate 20, blood pressure was 94/75 and pulse ox was 69% on room air. She improved to 98% on 3 L nasal cannula but remained labored so she was placed on BiPAP. CBC shows no leukocytosis. She has a chronic stable anemiawith a hemoglobin of 10.0. She has a slight left shift which she does appear to have fairly chronically. Coags are slightly elevated which is to be suspected due toher Eliquis use at baseline. Chemistry panel shows stable CKD with normal electrolytes, glucose of 112 a lactic acid of less than 1 andnormal LFTs. Her initial troponin was 35 with a delta of 30 and a 4-hour troponin of 32. Her proBNPis a bit elevated at 1111. COVID/flu/RSV is unremarkable. Blood and urine cultures were obtained inemergency department but are pending at the timeof admission. Respiratory viral panel is pending. Chest x-ray shows prominent lung markings bilaterally, small bilateral pleural effusions with cardiacenlargement but no other acute findings. Patient has a significant severe kyphosis and restrictive lung disease related to her kyphosis and instrumentation for fixation. [facility] Medical History Chronic anemia Constipation Emphysema lung Thrombocytopenia Stroke/cerebrovascular accident History of pulmonary embolism HLD (hyperlipidemia) Chronic back pain COPD (chronic obstructive pulmonary disease) HTN (hypertension) Home Medications ?Medication ?Instructions ?Recorded ?Last Taken ?Type gemfibrozil 600 mg tablet 600 mg PO BID Check with nina smith 03/03/19 10/31/24 History doctor apixaban 5 mg tablet (Eliquis) 5 mg PO BID 01/21/24 History docusate sodium 100 mg capsule 100 mg PO BID 10/31/24 10/31/24 History (Col-Rite) gabapentin 100 mg capsule 200 mg PO BID 10/31/2410/31 History sulfamethoxazole 400 1 tab PO BID 10/31/24 History mg-trimethoprim 80 mg tablet Allergy/AdvReac Type Severity Reaction Status Date / Time No Known Allergies Allergy Verified 10/31/24 13:12 Family History Mother Heart disease Father Heart disease Surgical History Previous back surgery Social History housing: assisted living facility Smoking Status: Former smoker alcohol intake: never substance use type: does not use ROS Review of Systems ROS Unobtainable: due to mental status Vital Signs Vital Signs Vital Signs: 10/31/24 13:12 10/31/24 13:16 10/31/24 13:17 Temperature 97.6 F L 97.6 F L Temperature Source Temporal Temporal Pulse Rate 61 61 Respiratory Rate 20 H 20 H Respiratory Effort Respiratory Depth Respiratory Pattern Blood Pressure 94/75 94/75 Blood Pressure Mean 81 81 Pulse Ox 69 69 98 Oxygen Delivery Method Room Air Room Air Nasal Cannula Oxygen Flow Rate (L/min) 3 Fraction of Inspired Oxygen (FIO2) 10/31/24 13:41 10/31/24 13:41 10/31/24 13:53 Temperature Temperature Source Pulse Rate 61 Respiratory Rate 16 Respiratory Effort Non-Labored Short of Breath Respiratory Depth Normal Respiratory Pattern Normal Blood Pressure Blood Pressure Mean Pulse Ox 96 Oxygen Delivery Method Nasal Cannula Nasal Cannula Oxygen Flow Rate (L/min) 3 3 Fraction of Inspired Oxygen (FIO2) 10/31/24 14:16 10/31/24 14:21 10/31/24 15:00 Temperature 98.3 F 98.6 F Temperature Source Oral Oral Pulse Rate 78 76 Respiratory Rate 19 H 23 H Respiratory Effort Respiratory Depth Respiratory Pattern Blood Pressure 123/97 H 100/57 L Blood Pressure Mean 105 71 Pulse Ox 98 94 94 Oxygen Delivery Method Non-Rebreather @ 15L/min Nasal Cannula Nasal Cannula Oxygen Flow Rate (L/min) 2 2 Fraction of Inspired Oxygen (FIO2) 10/31/24 15:44 10/31/24 16:00 10/31/24 16:23 Temperature 98.6 F Temperature Source Temporal Pulse Rate 68 60 Respiratory Rate 15 17 Respiratory Effort Respiratory Depth Respiratory Pattern Blood Pressure 89/50 L 116/54 L Blood Pressure Mean 63 74 Pulse Ox 100 95 Oxygen Delivery Method Bi-pap Oxygen Flow Rate (L/min) Fraction of Inspired Oxygen (FIO2) 30 10/31/24 16:30 10/31/24 17:00 10/31/24 17:09 Temperature 98 F Temperature Source Pulse Rate 60 63 63 Respiratory Rate 95 H 19 H 19 H Respiratory Effort Respiratory Depth Respiratory Pattern Blood Pressure 124/46 H 112/46 L 112/46 L Blood Pressure Mean 72 68 68 Pulse Ox 94 96 96 Oxygen Delivery Method Bi-pap Bi-pap Oxygen Flow Rate (L/min) Fraction of Inspired Oxygen (FIO2) 10/31/24 17:15 10/31/24 17:30 10/31/24 17:32 Temperature Temperature Source Pulse Rate 68 68 62 Respiratory Rate 22 H 15 16 Respiratory Effort Respiratory Depth Respiratory Pattern Normal Blood Pressure 112/41 L 124/59 H Blood Pressure Mean 62 73 Pulse Ox 100 Oxygen Delivery Method Oxygen Flow Rate (L/min) Fraction of Inspired Oxygen (FIO2) 30 Weight Weight: 116.3 kg Body Mass Index (BMI) 41.3 Physical Exam Const no apparent distress and well nourished; Negative for oriented x3, average body habitus or healthy appearing Constitutional Narrative: Morbidly obese, older, white female, lying in bed, appears comfortable, awakens and tries to communicate but fairly sleepy, does follow commands consistently, but patient does not appear toxic General Appearance: cooperative HEENT normocephalic, head/scalp atraumatic and hearing grossly normal bilaterally HEENT Narrative: Mucous membranes are dry but patient is on BiPAP currently, Mallampati is 3-4, no thrush noted Eyes conjunctivae normal Eyes Narrative: No scleral icterus Neck supple Neck Narrative: Neck is short and thick but trachea is midline Resp No normal respiratory effort, no use of accessory muscles and No clear to auscultation bilaterally Resp Narrative: Severely diminished diffusely with few scattered end expiratory wheezes, currently resting comfortably on BiPAP Auscultation: wheezes; Negative for crackles or rhonchi Cardio regular rate, regular rhythm, S1 normal heart sound, S2 normal heart sound, no murmurs, no rub, no gallops and no clicks GI normal to inspection, nondistended, normoactive bowel sounds, soft to palpation and non-tender GI Narrative: Large protuberant abdomen Extremity Extremity Narrative: Trace bilateral lower extremity pitting edema, no clubbing or cyanosis noted Skin Skin Narrative: No significant wounds, bilateral lower extremities are consistent with chronic venous stasis changes in the skin Neuro Neuro Narrative: Spontaneously moves all 4 extremities but does appear to be generally weak Psych Psych Narrative: Currently calm Results Lab / Micro Data 10/31/24 13:30 10/31/24 13:30 Labs: Laboratory Results - last 24 hr 10/31/24 13:30: WBC 4.8, RBC 3.15 L, Hgb 10.0 L, Hct 33.1 L, MCV 105.1 H, MCH 31.7, MCHC 30.2 L, RDW Std Deviation 54.5 H, RDW Coeff of Alverto 14.4, Plt Count 156, MPV 10.5, Immature Gran % (Auto) 1.400H, Neut % (Auto) 78.2 H, Lymph % (Auto) 10.1 L, Sequoyah % (Auto) 9.9, Eos % (Auto) 0.2, Baso % (Auto) 0.2, Absolute Neuts (auto) 3.8, Absolute Lymphs (auto) 0.49 L, Nucleated RBC % 0, PT 15.0 H, INR 1.2, APTT 32.4, Sodium 139, Potassium 4.5, Chloride 101, Carbon Dioxide 29.1, Anion Gap 9, BUN 27 H, Creatinine 1.71 H, Estim Creat Clear Calc 37.98 L, Est GFR (MDRD) Non-Af 31 L, BUN/Creatinine Ratio 15.8, Glucose 112 H, Lactic Acid < 1.0, Calcium 8.9, Total Bilirubin 0.17, AST 19, ALT 8, Alkaline P hosphatase 66, Troponin T High Sens 35 H, NT pro BNP II 1111 H, Total Protein 6.8, Albumin 3.7, Globulin 3.2, Albumin/Globulin Ratio 1.2 10/31/24 14:55: Urine Color Yellow, Urine Clarity Cloudy, Urine pH 6.0, Ur Specific [place] 1.020, Urine Protein 500 H, Urine Glucose (UA) Normal, Urine Ketones Negative, Urine Occult Blood Negative,Urine Nitrite Negative, Urine Bilirubin Negative, Urine Urobilinogen Normal, Ur Leukocyte Esterase Negative, Urine RBC 0-5 SEEN, Urine WBC 0-5 SEEN, Ur Squamous Epith Cells 0-5 SEEN, Amorphous Sediment 3+, Urine Bacteria 0 SEEN, Urine Mucus 0 SEEN 10/31/24 15:28: Troponin T Hi Sens 2 Hr 30 H Micro: Microbiology 10/31/24 13:40 Mucosa - Nose SARS-CoV-2, Influenza & RSV (PCR) - Final ABG Data ABG results: ABG 10/31/24 10/31/24 14:02 17:24 Specimen Type ART ART Sample Site L Brach L Radial pH 7.18 L* 7.18 L* Bicarbonate Actual 32.5 H 28.6 H Total CO2 35 31 Base Excess 4 H 0 O2 Saturation 90 L 82 L O2 % 2.0 25.0 ABG pCO2 88.1 H* 76.9 H* ABG pO2 76 59 L Rhiannon Test Positive Positive O2 Delivery Device Cannula BiPAP Vent Mode Not entered Not entered Crit Call To/Read Back Yes Yes Blood Gas Notified Whom hernandez Blood Gas Notified Time 14:04:53 17:27:12 Imaging Radiology Impression Chest X-Ray 10/31/24 13:31 IMPRESSION: Prominent lung markings bilaterally. Can not exclude developing infiltrate. Small bilateral pleural effusions. Cardiac enlargement. Other nonacute findings documented above. Reading Location: [place] [address] Assessment & Plan Assessment/Plan (1) Acute respiratory failure with hypoxia and hypercapnia: (2) Elevated troponin: (3) Chronic obstructive pulmonary disease with (acute) exacerbation: PLAN: Plan Acute hypoxic and hypercapnic respiratory failure secondary to acute exacerbation of COPD - Patient does not seem to have cough or any signs of pneumonia at this time -Will hold off on antibiotics for now - COVID/flu/RSV are negative - Check respiratory viral panel - Blood and urine cultures were obtained in the emergency department - Was given 1 dose of IV Lasix in the ED as BNP was elevated however I do not feel she is in acute heart failure -Solu-Medrol 40 every 8 - Continue BiPAP and repeat ABG at 5 AM--> follow-up ABGs are showing resolutionof her hypercapnia slowly - N.p.o. until off BiPAP - Aggressive pulmonary toilet with scheduled and as needed DuoNebs - Wean oxygen as able - Will need ambulatory pulse ox prior to discharge Elevated troponin - Highly suspect related to demand ischemia from hypoxemia - Will check echocardiogram with elevated BNP in addition to elevated troponin - Last echocardiogram showed EF of 60% with stage I diastolic dysfunction, RV systolic function appeared to be normal but pulmonary artery pressures were not estimated Toxic/metabolic encephalopathy - Related to acute hypercapnia - Seems to be slowly improving - Continue to follow Chronic macrocytic anemia - Hemoglobin is stable - Repeat in a.m. CKD stage IIIb - BUN is 27 serum creatinine 1.71 - Close to baseline - Will trend - Avoid nephrotoxins as able - No further workup required at this time Bilateral carotid artery stenosis - Mild right ICA/moderate left ICA - Continue risk factor modification - Continue outpatient follow-up with vascular surgery Chronic lymphedema secondary to venous insufficiency - IV diuretics given the emergency department - Does have evidence of venous reflux on venous vascular study History of pulmonary embolus - Continue home Eliquis COPD/emphysema - Interestingly patient is not on any home inhalers but has significant emphysematous changes on her CAT scan - Treatment as noted above - Recommend outpatient follow-up with pulmonary medicine after discharge History of thrombocytopenia - Currently normal - Will trend Hyperlipidemia - Continue home gemfibrozil Neuropathy - Continue home gabapentin Chronic constipation - Continue home docusate - As needed senna available Chronic back pain - As needed Tylenol DVT prophylaxis - Continue full dose Eliquis CODE STATUS -DNR CCA with no intubation Charges/Coding Visit Charges Inpatient E&M: 96215 Init Hosp L3 10/31/242154 Cosigner Signature (if applicable): CC: Dr. Zhane Stone DO; Dr. Zee Jose DO~ Signed ADDENDUM by Dr. Zhane Stone DO on 10/31/24 at 2215 Addendum . 10/31/242214 Cosigner Signature (if applicable): cc: Dr. Zhane Stone DO; Dr. Zee Jose DO ~* Signed [facility]06-03-2025 Evaluation note* Diagnosis Onset Date Resolution Status Admit Date Acute respiratory failure wi th hypoxia and hypercapnia acute October 6:12pm CHF (congestive heart failure) acute October 31, 2024 6:12pm Elevated troponin acute October 6:12pm Chronic obstructive pulmonar y disease with (acute) exacerbation chronic October 31, 2024 6:12pm [facility] Work Phone: [phone]) 785-245506-03-2025 Evaluation note* Diagnosis Onset Date Resolution Status Admit Date Acute respiratory failure wi th hypoxia and hypercapnia acute October 6:12pm CHF (congestive heart failure) acute October 31, 2024 6:12pm Elevated troponin acute October 6:12pm Chronic obstructive pulmonar y disease with (acute) exacerbation resolved October 31, 2024 6 :12pm [facility] Work Phone: 1([phone]) 583-147706-03-2025 Evaluation note* Diagnosis Onset Date Resolution Status Admit Date Acute respiratory failure wi th hypoxia and hypercapnia acute October 6:12pm CHF (congestive heart failure) acute October 31, 2024 6:12pm Elevated troponin acute October 6:12pm Chronic obstructive pulmonar y disease with (acute) exacerbation resolved October 31, 2024 6 :12pm Acute respiratory acidosis acute January 05, 2025 11:13am Chronic anticoagulation acute A ug2024 11:13am Hypoxia acute January 05 11:13am Increasing shortness of breath acute January 05, 2025 11:13am Right lower lobe pneumonia acute January 05, 2025 11:13am COPD exacerbation chronic January 05, 2025 11:13am [facility] Work Phone: 1([phone]) 958-358706-03-2025 Discharge summary Author Janak Hernandez [facility] Note Date/Time October 31, 2024 5:44p m [facility] Medical Records Department [address] [place] [address] Emergency Department Summary 10/31/24 MR#: [id number] Acct: [id number] Name: DESIRE CHAUDHRY Rep #:[id number] : 1950 73 From: Janak Hernandez DO PCP: Dr. Zee Jose, DO Status:REG ER Location: ED HPI History of Present Illness Chief Complaint: Shortness of Breath Narrative Narrative: Patient is a 73-year-old female past medical history of CVA, pulmonary embolism on Eliquis, COPD, hypertension who presented to the emergency department with chief complaint of family noticing that she looked blue. According the patient she went to bed last night and felt well. She states that today she got up early this morning and noted that she felt weak try to get up off the toilet butwas ultimately able to do so and went back downstairs to lay on the couch and noted that she put her oxygen on which she wears 2 L at night. She states that she is not on oxygen during the day. Patient states that she felt slightly off earlier as well, when presented to triage she was noted to be hypoxic to 69% on room air. Patient states that she has been compliant with all her medications [facility] Medical History Constipation Emphysema lung Thrombocytopenia Stroke/cerebrovascular accident History of pulmonary embolism HLD (hyperlipidemia) Chronic back pain COPD (chronic obstructive pulmonary disease) HTN (hypertension) Home Medications ?Medication ?Instructions ?Recorded ?Last Taken ?Type gemfibrozil 600 mg tablet 600 mg PO BID Check with nina smith 03/03/19 10/31/24 History doctor apixaban 5 mg tablet (Eliquis) 5 mg PO BID 01/21/24 History docusate sodium 100 mg capsule 100 mg PO BID 10/31/24 10/31/24 History (Col-Rite) gabapentin 100 mg capsule 200 mg PO BID 10/31/2410/31 History sulfamethoxazole 400 1 tab PO BID 10/31/24 History mg-trimethoprim 80 mg tablet Allergy/AdvReac Type Severity Reaction Status Date / Time No Known Allergies Allergy Verified 10/31/24 13:12 Family History Mother Heart disease Father Heart disease Surgical History Previous back surgery Social History (Updated 10/31/24 @ 13:42 by Jackeline Salinas) household members: spouse housing: assisted living facility Smoking Status: Former smoker alcohol intake: never substance use type: does not use ROS ROS ED ROS Narrative Constitutional: Pleasant lightheadedness denies dizziness, fevers or chills Eyes: Complains of double vision but states that this has been going on for months and is following up with the post partum nurse for this this is not new Cardiovascular: Denies chest pain or palpitations Respiratory: Denies coughing wheezing shortness of breath Abdomen: Denies abdominal pain nausea vomit diarrhea : Denies urinary symptoms Neurological: Denies any numbness, tingling complains of generalized weakness Musculoskeletal: Denies back pain Skin: Denies rashes or lesions EXAM Physical Exam Narrative Exam Narrative: General: Patient lying in bed rest comfortably did not appear to be in acute distress Head: Atraumatic, normocephalic Eyes: PERRL bilaterally, EOMI bilaterally, no conjunctival injection noted Neck: Soft, supple, trachea midline Cardiovascular: Regular rate and rhythm no murmurs gallops rubs noted Respiratory: Clear to auscultation bilaterally Abdomen: Soft, nondistended, no tenderness palpation Extremities: Radial pulses +2/4 in the bilateral extremities, +4/5 strength noted in the bilateral upper and lower extremities Neurological: Patient follow commands knew that she was at [facility] the year is 2024 NIH of 0 GCS 15 Skin: Warm, dry, intact no rashes or lesions noted Const Vital Signs: 10/31/24 13:12 10/31/24 13:16 10/31/24 13:17 Temperature 97.6 F L 97.6 F L Temperature Source Temporal Temporal Pulse Rate 61 61 Respiratory Rate 20 H 20 H Respiratory Effort Respiratory Depth Respiratory Pattern Blood Pressure 94/75 94/75 Blood Pressure Mean 81 81 Pulse Ox 69 69 98 Oxygen Delivery Method Room Air Room Air Nasal Cannula Oxygen Flow Rate (L/min) 3 Fraction of Inspired Oxygen (FIO2) 10/31/24 13:41 10/31/24 13:41 10/31/24 13:53 Temperature Temperature Source Pulse Rate 61 Respiratory Rate 16 Respiratory Effort Non-Labored Short of Breath Respiratory Depth Normal Respiratory Pattern Normal Blood Pressure Blood Pressure Mean Pulse Ox 96 Oxygen Delivery Method Nasal Cannula Nasal Cannula Oxygen Flow Rate (L/min) 3 3 Fraction of Inspired Oxygen (FIO2) 10/31/24 14:16 10/31/24 14:21 10/31/24 15:00 Temperature 98.3 F 98.6 F Temperature Source Oral Oral Pulse Rate 78 76 Respiratory Rate 19 H 23 H Respiratory Effort Respiratory Depth Respiratory Pattern Blood Pressure 123/97 H 100/57 L Blood Pressure Mean 105 71 Pulse Ox 98 94 94 Oxygen Delivery Method Non-Rebreather @ 15L/min Nasal Cannula Nasal Cannula Oxygen Flow Rate (L/min) 2 2 Fraction of Inspired Oxygen (FIO2) 10/31/24 15:44 10/31/24 16:00 10/31/24 16:23 Temperature 98.6 F Temperature Source Temporal Pulse Rate 68 60 Respiratory Rate 15 17 Respiratory Effort Respiratory Depth Respiratory Pattern Blood Pressure 89/50 L 116/54 L Blood Pressure Mean 63 74 Pulse Ox 100 95 Oxygen Delivery Method Bi-pap Oxygen Flow Rate (L/min) Fraction of Inspired Oxygen (FIO2) 30 10/31/24 16:30 10/31/24 17:00 10/31/24 17:09 Temperature 98 F Temperature Source Pulse Rate 60 63 63 Respiratory Rate 95 H 19 H 19 H Respiratory Effort Respiratory Depth Respiratory Pattern Blood Pressure 124/46 H 112/46 L 112/46 L Blood Pressure Mean 72 68 68 Pulse Ox 94 96 96 Oxygen Delivery Method Bi-pap Bi-pap Oxygen Flow Rate (L/min) Fraction of Inspired Oxygen (FIO2) 10/31/24 17:15 10/31/24 17:30 10/31/24 17:32 Temperature Temperature Source Pulse Rate 68 68 62 Respiratory Rate 22 H 15 16 Respiratory Effort Respiratory Depth Respiratory Pattern Normal Blood Pressure 112/41 L 124/59 H Blood Pressure Mean 62 73 Pulse Ox 100 Oxygen Delivery Method Oxygen Flow Rate (L/min) Fraction of Inspired Oxygen (FIO2) 30 MDM MDM MDM Narrative Medical decision making narrative: Patient is a 73-year-old female who presents to the emergency department with a chief complaint of lightheadedness and not feeling well, once again the patient was noted be hypoxic on room air to 69%. On the differential diagnosis includesbut not limited to pneumonia, pneumothorax, ACS, PE although feel this less likely as she is chronically anticoagulated on Eliquis not missing doses. Once workup is obtained reviewed she will be reevaluated. Patient will be given DuoNeb and 30 cc/kg bolus of IV fluids based on ideal body weight for BMI of greater than 30 Patient's CBC was reviewed showed a white blood count of 4.8, hemoglobin of 10, platelet count was noted be 156. Patient's INR was 1.2, PT of 15, arterial blood gas was reviewed showed a respiratory acidosis with a pH 7.18 with a PCO2 88.1. Patient sodium was 139, potassium normal at 4.5, creatinine is elevated 1.71 she has underlying chronic kidney disease, lactic acid was less than 1. Patient AST and ALT were 19 and 8 respectively, troponin was 35 with delta troponin pending. Patient's EKG showed sinus rhythm with a rate of 61 bpm thiswas compared to EKG from January 21, 2024 which is largely unchanged. Patient's urinalysis reviewed and showed negative nitrites negative will leukocyte esterase 0-5 white cells with no bacteria noted. Patient's chest x-ray reviewedby radiology by myself which showed prominent lung markings bilaterally cannot exclude developing infiltrate. Small bilateral pleural effusions. Cardiac enlargement. Patient was given Rocephin and azithromycin at 1536 although there is no identifiable source infection at this time as she is not coughing anything up. After discussion with staff they notified me that the patient does not want to go on BiPAP I went back in and had a long discussion with the patient and she isnow agreeable to BiPAP with Ativan she will be given 0.5 mg Ativan. At this point time do believe the patient will warrant admission to the hospitalfor her acute hypercapnic respiratory failure hypoxic. Patient's case will be discussed with hospitalist for admission. Discussed case with hospitalist who accept patient for admission. Patient is agreeable to plan. Patient's repeat blood gas was reviewed showed a pH 7.18 however pCO2 did improve to 76.9 we will increase her tidal volume and her pressure support. Repeat gas will be obtained. Critical care time 59 minutes Lab Data Labs: Laboratory Results - last 24 hr 10/31/24 10/31/24 10/31/24 13:30 14:55 15:28 WBC 4.8 RBC 3.15 L Hgb 10.0 L Hct 33.1 L MCV 105.1 H MCH 31.7 MCHC 30.2 L RDW Std Deviation 54.5 H RDW Coeff of Alverto 14.4 Plt Count 156 MPV 10.5 Immature Gran % (Auto) 1.400 H Neut % (Auto) 78.2 H Lymph % (Auto) 10.1 L Sequoyah % (Auto) 9.9 Eos % (Auto) 0.2 Baso % (Auto) 0.2 Absolute Neuts (auto) 3.8 Absolute Lymphs (auto) 0.49 L Nucleated RBC % 0 PT 15.0 H INR 1.2 APTT 32.4 Sodium 139 Potassium 4.5 Chloride 101 Carbon Dioxide 29.1 Anion Gap 9 BUN 27 H Creatinine 1.71 H Estim Creat Clear Calc 37.98 L Est GFR (MDRD) Non-Af 31 L BUN/Creatinine Ratio 15.8 Glucose 112 H Lactic Acid < 1.0 Calcium 8.9 Total Bilirubin 0.17 AST 19 ALT 8 Alkaline Phosphatase 66 Troponin T High Sens 35 H Troponin T Hi Sens 2 Hr 30 H NT pro BNP II 1111 H Total Protein 6.8 Albumin 3.7 Globulin 3.2 Albumin/Globulin Ratio 1.2 Urine Color Yellow Urine Clarity Cloudy Urine pH 6.0 Ur Specific [place] 1.020 Urine Protein 500 H Urine Glucose (UA) Normal Urine Ketones Negative Urine Occult Blood Negative Urine Nitrite Negative Urine Bilirubin Negative Urine Urobilinogen Normal Ur Leukocyte Esterase Negative Urine RBC 0-5 SEEN Urine WBC 0-5 SEEN Ur Squamous Epith Cells 0-5 SEEN Amorphous Sediment 3+ Urine Bacteria 0 SEEN Urine Mucus 0 SEEN ABG Data ABG results: ABG 10/31/24 10/31/24 14:02 17:24 Specimen Type ART ART Sample Site L Brach L Radial pH 7.18 L* 7.18 L* Bicarbonate Actual 32.5 H 28.6 H Total CO2 35 31 Base Excess 4 H 0 O2 Saturation 90 L 82 L O2 % 2.0 25.0 ABG pCO2 88.1 H* 76.9 H* ABG pO2 76 59 L Rhiannon Test Positive Positive O2 Delivery Device Cannula BiPAP Vent Mode Not entered Not entered Crit Call To/Read Back Yes Yes Blood Gas Notified Whom chichi Blood Gas Notified Time 14:04:53 17:27:12 Radiography Diagnostic Testing: Clinical Impression(s) from Imaging Studies Chest X-Ray 10/31/24 13:31 IMPRESSION: Prominent lung markings bilaterally. Can not exclude developing infiltrate. Small bilateral pleural effusions. Cardiac enlargement. Other nonacute findings documented above. Reading Location: [place] [address] Discharge Plan Triage Chief Complaint: Shortness of Breath ED Provider: Janak Hernandez Dx/Rx/DC Orders Clinical Impression: Acute respiratory failure with hypoxia and hypercapnia, CHF (congestive heart failure) Prescriptions: No Action gemfibrozil 600 MG tablet 600 mg PO BID Eliquis 5 mg tablet 5 mg PO BID sulfamethoxazole-trimethoprim 400-80 mg tablet 1 tab PO BID gabapentin 100 mg capsule 200 mg PO BID docusate sodium [Col-Rite] 100 mg capsule 100 mg PO BID Primary Care Provider: Zee Jose Referrals: Zee Jose DO [Primary Care Provider] - Print Language: Citizen Of [place] Disposition Disposition: Acute Care Hospital [facility] What to do if you have Problems For any increased pain, shortness of breath, bleeding, nausea or vomiting, chestpain, or any unexpected problems, contact your Primary Care Provider. Call [facility] ([phone]) or report to the closest Emergency Room. Call 911 if necessary. 10/31/24 1744 <Electronically signed by Janak Hernandez DO> Cosigner Signature (if applicable): CC: Dr. Zee Jose DO ~ Signed [facility] Work Phone: 1(106) 364-872506-03-2025 Discharge summary [facility] Medical Records Department [address] [place] [address] Emergency Department Summary 10/31/24 MR#: [id number] Acct: [id number] Name: DESIRE CHAUDHRY Rep #:[id number] : 1950 73 From: Janak Hernandez DO PCP: Dr. Zee Jose DO Status:REG ER Location: ED HPI History of Present Illness Chief Complaint: Shortness of Breath Narrative Narrative: Patient is a 73-year-old female past medical history of CVA, pulmonary embolism on Eliquis, COPD, hypertension who presented to the emergency department with chief complaint of family noticing that she looked blue. According the patient she went to bed last night and felt well. She states that today she got up early this morning and noted that she felt weak try to get up off the toilet butwas ultimately able to do so and went back downstairs to lay on the couch and noted that she put her oxygenon which she wears 2 L at night. She states that she is not on oxygen during the day. Patient states that she felt slightly off earlier as well, when presented to triage she was noted to be hypoxic to 69% on room air. Patient states that she has been compliant with all her medications [facility] Medical History Constipation Emphysema lung Thrombocytopenia Stroke/cerebrovascular accident History of pulmonary embolism HLD (hyperlipidemia) Chronic back pain COPD (chronic obstructive pulmonary disease) HTN (hypertension) Home Medications ?Medication ?Instructions ?Recorded ?Last Taken ?Type gemfibrozil 600 mg tablet 600 mg PO BID Check with nina smith 03/03/19 10/31/24 History doctor apixaban 5 mg tablet (Eliquis) 5 mg PO BID 01/21/24 History docusate sodium 100 mg capsule 100 mg PO BID 10/31/24 10/31/24 History (Col-Rite) gabapentin 100 mg capsule 200 mg PO BID 10/31/2410/31 History sulfamethoxazole 400 1 tab PO BID 10/31/24 History mg-trimethoprim 80 mg tablet Allergy/AdvReac Type Severity Reaction Status Date / Time No Known Allergies Allergy Verified 10/31/24 13:12 Family History Mother Heart disease Father Heart disease Surgical History Previous back surgery Social History (Updated 10/31/24 @ 13:42 by Jackeline Salinas) household members: spouse housing: assisted living facility Smoking Status: Former smoker alcohol intake: never substance use type: does not use ROS ROS ED ROS Narrative Constitutional: Pleasant lightheadedness denies dizziness, fevers or chills Eyes: Complains of double vision but states that this has been going on for months and is followingup with the post partum nurse for this this is not new Cardiovascular: Denies chest pain or palpitations Respiratory: Denies coughing wheezing shortness of breath Abdomen: Denies abdominal pain nausea vomit diarrhea : Denies urinary symptoms Neurological: Denies any numbness, tingling complains of generalized weakness Musculoskeletal: Denies back pain Skin: Denies rashes or lesions EXAM Physical Exam Narrative Exam Narrative: General: Patient lying in bed rest comfortably did not appear to be in acute distress Head: Atraumatic, normocephalic Eyes: PERRL bilaterally, EOMI bilaterally, no conjunctival injection noted Neck: Soft, supple, trachea midline Cardiovascular: Regular rate and rhythm no murmurs gallops rubs noted Respiratory: Clear to auscultation bilaterally Abdomen: Soft, nondistended, no tenderness palpation Extremities: Radial pulses +2/4 in the bilateral extremities, +4/5 strength noted in the bilateral upper and lower extremities Neurological: Patient follow commands knew that she was at [facility] the year is 2024 NIH of0 GCS 15 Skin: Warm, dry, intact no rashes or lesions noted Const Vital Signs: 10/31/24 13:12 10/31/24 13:16 10/31/24 13:17 Temperature 97.6 F L 97.6 F L Temperature Source Temporal Temporal Pulse Rate 61 61 Respiratory Rate 20 H 20 H Respiratory Effort Respiratory Depth Respiratory Pattern Blood Pressure 94/75 94/75 Blood Pressure Mean 81 81 Pulse Ox 69 69 98 Oxygen Delivery Method Room Air Room Air Nasal Cannula Oxygen Flow Rate (L/min) 3 Fraction of Inspired Oxygen (FIO2) 10/31/24 13:41 10/31/24 13:41 10/31/24 13:53 Temperature Temperature Source Pulse Rate 61 Respiratory Rate 16 Respiratory Effort Non-Labored Short of Breath Respiratory Depth Normal Respiratory Pattern Normal Blood Pressure Blood Pressure Mean Pulse Ox 96 Oxygen Delivery Method Nasal Cannula Nasal Cannula Oxygen Flow Rate (L/min) 3 3 Fraction of Inspired Oxygen (FIO2) 10/31/24 14:16 10/31/24 14:21 10/31/24 15:00 Temperature 98.3 F 98.6 F Temperature Source Oral Oral Pulse Rate 78 76 Respiratory Rate 19 H 23 H Respiratory Effort Respiratory Depth Respiratory Pattern Blood Pressure 123/97 H 100/57 L Blood Pressure Mean 105 71 Pulse Ox 98 94 94 Oxygen Delivery Method Non-Rebreather @ 15L/min Nasal Cannula Nasal Cannula Oxygen Flow Rate (L/min) 2 2 Fraction of Inspired Oxygen (FIO2) 10/31/24 15:44 10/31/24 16:00 10/31/24 16:23 Temperature 98.6 F Temperature Source Temporal Pulse Rate 68 60 Respiratory Rate 15 17 Respiratory Effort Respiratory Depth Respiratory Pattern Blood Pressure 89/50 L 116/54 L Blood Pressure Mean 63 74 Pulse Ox 100 95 Oxygen Delivery Method Bi-pap Oxygen Flow Rate (L/min) Fraction of Inspired Oxygen (FIO2) 30 10/31/24 16:30 10/31/24 17:00 10/31/24 17:09 Temperature 98 F Temperature Source Pulse Rate 60 63 63 Respiratory Rate 95 H 19 H 19 H Respiratory Effort Respiratory Depth Respiratory Pattern Blood Pressure 124/46 H 112/46 L 112/46 L Blood Pressure Mean 72 68 68 Pulse Ox 94 96 96 Oxygen Delivery Method Bi-pap Bi-pap Oxygen Flow Rate (L/min) Fraction of Inspired Oxygen (FIO2) 10/31/24 17:15 10/31/24 17:30 10/31/24 17:32 Temperature Temperature Source Pulse Rate 68 68 62 Respiratory Rate 22 H 15 16 Respiratory Effort Respiratory Depth Respiratory Pattern Normal Blood Pressure 112/41 L 124/59 H Blood Pressure Mean 62 73 Pulse Ox 100 Oxygen Delivery Method Oxygen Flow Rate (L/min) Fraction of Inspired Oxygen (FIO2) 30 MDM MDM MDM Narrative Medical decision making narrative: Patient is a 73-year-old female who presents to the emergency department with a chief complaint of lightheadedness and not feeling well, once again the patient was noted be hypoxic on room air to 69%. On the differential diagnosis includesbut not limited to pneumonia, pneumothorax, ACS, PE althoughfeel this less likely as she is chronically anticoagulated on Eliquis not missing doses. Once workup is obtained reviewed she will be reevaluated. Patient will be given DuoNeb and 30 cc/kg bolus of IV fluids based on ideal body weight for BMI of greater than 30 Patient's CBC was reviewed showed a white blood count of 4.8, hemoglobin of 10, platelet count was noted be 156. Patient's INR was 1.2, PT of 15, arterial blood gas was reviewed showed a respiratory acidosis with a pH 7.18 with a PCO2 88.1. Patient sodium was 139, potassium normal at 4.5, creatinine is elevated 1.71 she has underlying chronic kidney disease, lactic acid was less than 1. Patient AST and ALT were 19 and 8 respectively, troponin was 35 with delta troponin pending. Patient's EKG showed sinus rhythm with a rate of 61 bpm thiswas compared to EKG from January 21, 2024 which is largely unchanged. Patient's urinalysis reviewed and showed negative nitrites negative will leukocyte esterase 0-5 white cells with no bacteria noted. Patient's chest x-ray reviewedby radiology by myself felipe murphy showed prominent lung markings bilaterally cannot exclude developing infiltrate. Small bilateralpleural effusions. Cardiac enlargement. Patient was given Rocephin and azithromycin at 1536 although there is no identifiable source infection at this time as she is not coughing anything up. After discussion with staff they notified me that the patient does not want to go on BiPAP I went back in and had a long discussion with the patient and she isnow agreeable to BiPAP with Ativan she will be given 0.5 mg Ativan. At this point time do believe the patient will warrant admission to the hospitalfor her acute hypercapnic respiratory failure hypoxic. Patient's case will be discussed with hospitalist for admission. Discussed case with hospitalist who accept patient for admission. Patient is agreeable to plan. Patient's repeat blood gas was reviewed showed a pH 7.18 however pCO2 did improve to 76.9 we will increase her tidal volume and her pressure support. Repeat gas will be obtained. Critical care time 59 minutes Lab Data Labs: Laboratory Results - last 24 hr 10/31/24 10/31/24 10/31/24 13:30 14:55 15:28 WBC 4.8 RBC 3.15 L Hgb 10.0 L Hct 33.1 L MCV 105.1 H MCH 31.7 MCHC 30.2 L RDW Std Deviation 54.5 H RDW Coeff of Alverto 14.4 Plt Count 156 MPV 10.5 Immature Gran % (Auto) 1.400 H Neut % (Auto) 78.2 H Lymph % (Auto) 10.1 L Sequoyah % (Auto) 9.9 Eos % (Auto) 0.2 Baso % (Auto) 0.2 Absolute Neuts (auto) 3.8 Absolute Lymphs (auto) 0.49 L Nucleated RBC % 0 PT 15.0 H INR 1.2 APTT 32.4 Sodium 139 Potassium 4.5 Chloride 101 Carbon Dioxide 29.1 Anion Gap 9 BUN 27 H Creatinine 1.71 H Estim Creat Clear Calc 37.98 L Est GFR (MDRD) Non-Af 31 L BUN/Creatinine Ratio 15.8 Glucose 112 H Lactic Acid < 1.0 Calcium 8.9 Total Bilirubin 0.17 AST 19 ALT 8 Alkaline Phosphatase 66 Troponin T High Sens 35 H Troponin T Hi Sens 2 Hr 30 H NT pro BNP II 1111 H Total Protein 6.8 Albumin 3.7 Globulin 3.2 Albumin/Globulin Ratio 1.2 Urine Color Yellow Urine Clarity Cloudy Urine pH 6.0 Ur Specific [place] 1.020 Urine Protein 500 H Urine Glucose (UA) Normal Urine Ketones Negative Urine Occult Blood Negative Urine Nitrite Negative Urine Bilirubin Negative Urine Urobilinogen Normal Ur Leukocyte Esterase Negative Urine RBC 0-5 SEEN Urine WBC 0-5 SEEN Ur Squamous Epith Cells 0-5 SEEN Amorphous Sediment 3+ Urine Bacteria 0 SEEN Urine Mucus 0 SEEN ABG Data ABG results: ABG 10/31/24 10/31/24 14:02 17:24 Specimen Type ART ART Sample Site L Brach L Radial pH 7.18 L* 7.18 L* Bicarbonate Actual 32.5 H 28.6 H Total CO2 35 31 Base Excess 4 H 0 O2 Saturation 90 L 82 L O2 % 2.0 25.0 ABG pCO2 88.1 H* 76.9 H* ABG pO2 76 59 L Rhiannon Test Positive Positive O2 Delivery Device Cannula BiPAP Vent Mode Not entered Not entered Crit Call To/Read Back Yes Yes Blood Gas Notified Whom chichi Blood Gas Notified Time 14:04:53 17:27:12 Radiography Diagnostic Testing: Clinical Impression(s) from Imaging Studies Chest X-Ray 10/31/24 13:31 IMPRESSION: Prominent lung markings bilaterally. Can not exclude developing infiltrate. Small bilateral pleural effusions. Cardiac enlargement. Other nonacute findings documented above. Reading Location: [place] [address] Discharge Plan Triage Chief Complaint: Shortness of Breath ED Provider: Jaank Hernandez Dx/Rx/DC Orders Clinical Impression: Acute respiratory failure with hypoxia and hypercapnia, CHF (congestive heart failure) Prescriptions: No Action gemfibrozil 600 MG tablet 600 mg PO BID Eliquis 5 mg tablet 5 mg PO BID sulfamethoxazole-trimethoprim 400-80 mg tablet 1 tab PO BID gabapentin 100 mg capsule 200 mg PO BID docusate sodium [Col-Rite] 100 mg capsule 100 mg PO BID Primary Care Provider: Zee Jose Referrals: Zee Jose DO [Primary Care Provider] - Print Language: Citizen Of [place] Disposition Disposition: Acute Care Hospital [facility] What to do if you have Problems For any increased pain, shortness of breath, bleeding, nausea or vomiting, chestpain, or any unexpected problems, contact your Primary Care Provider. Call [facility] ([phone]) or report tothe closest Emergency Room. Call 911 if necessary. 10/31/24 1744 Cosigner Signature (if applicable): CC: Dr. Zee Jose DO ~ Signed [facility]06-03-2025 Radiology Diagnostic study note [facility] Imaging Services [address] [place], [place] [id number] Chest PA and Lateral MR#: [id number] Acct: [id number] Name: DESIRE CHAUDHRY Rep #: [id number] : 1950 F 73 From: Merline Hendrickson MD PCP: Dr. Zee Jose DO Status: [facility] ER Study:Chest PA and Lateral Date of Exam: 10/31/24 Exam# [id number] Ordering Dr: Kecia Hernandez DO PROCEDURE: CHEST PA AND LATERAL 10/31/2024 REASON FOR EXAM: SOB TECHNIQUE: Frontal and lateral views of the chest. COMPARISON: 01/21/2024 CHEST FINDINGS: Lungs: Prominent bilateral lung markings particularly in the lower lobes. Can not exclude a developing infiltrate. Pleura: Bilateral pleural effusions blunt the lateral and posterior costophrenicangles. Heart: Cardiac enlargement. Mediastinum/Estephania: No widening. No hilar masses. Great vessels: Unremarkable. Bones/soft tissues: Dorsal fusion with bilateral Nathan rods and screws. RAD/Chest PA and Lateral IMPRESSION: Prominent lung markings bilaterally. Can not exclude developing infiltrate. Small bilateral pleural effusions. Cardiac enlargement. Other nonacute findings documented above. Reading Location: [place] [address] CC: Dr. Zee Jose DO; Dr. Janak Hernandez DO ~ Mobile Developer: Signed [facility]08[facility]26-[facility] Teja [facility] Note Date/Time November 03, 2024 11:33 am [facility] Medical Records Department [address] [place] [address] Instructions for Home/Discharge Instructions 11/03/24 1129 MR#: [id number] Acct: [id number] Name: DESIRE CHAUDHRY Rep #:[id number] : 1950 73 From: Teja post MD PCP: Dr. Zee Jose DO Status:ADM IN Discharge Instructions Diet Discharge Diet: No restrictions DC O2, CPAP, BIPAP needs Home O2 Discharge instructions: No Dressing / Incision Discharge Activity: Return to Normal Activity Dressing / Incision Call your doctor if you observe: Fever of 101 or Higher, Shortness of breath, Dizziness, Fainting spells, Swelling in the ankles, Chest pain and Increased palpitations (irregular heartbeat) Follow Up Care Test Results: Test results from this visit will be discussed in further detail at your follow- up appointment, if applicable. Discharge Plan Admission Admit Date/Time: 10/31/24 18:12 Attending Provider: Teja Zeng Primary Care Provider: Zee Jose Consulting Providers: Zhane Stone; Laura Sol Discharge Orders/Prescriptions Prescriptions: New prednisone 10 mg tablet 10 mg PO DAILY Qty: 20 0RF Rx Instructions: 3 tablets daily for 3 days then 2 tablets daily for 3 days then 1 tablet daily for 3 days then half tablet daily for 4 days Continued gemfibrozil 600 MG tablet 600 mg PO BID Eliquis 5 mg tablet 5 mg PO BID sulfamethoxazole-trimethoprim 400-80 mg tablet 1 tab PO BID gabapentin 100 mg capsule 200 mg PO BID docusate sodium [Col-Rite] 100 mg capsule 100 mg PO BID Referrals / Follow Up: Zee Jose DO [Primary Care Provider] - Within 1 Week Disposition Disposition (needs filled in before D/C Order can be placed): Assisted Living 11/03/24 1133<Electronically signed by Teja Zeng MD>Teja Zeng MD CC: Dr. Zhane Stone DO; Dr. Zee Jose DO; Dr. Laura Sol MD ~ Signed [facility] Work Phone: Evaluation note* Diagnosis Onset Date Resolution Status Generalized weakness acute Hypoxia acute Viral syndrome acute [facility] Work Phone: Evaluation note* Diagnosis Onset Date Resolution Status Acute respiratory failure with hypoxia and hypercapnia acute Generalized weakness acute Hypoxia acute Pneumonia due to COVID-19 virus acute Renal failure acute Toxic encephalopathy acute Viral syndrome acute [facility] Work Phone: Evaluation noteNo assessment information available [facility] Work Phone: Evaluation note* Diagnosis Onset Date Resolution Status Admit Date Acute respiratory failure wi th hypoxia and hypercapnia acute October 6:12pm Elevated troponin acute October 6:12pm Chronic obstructive pulmonar y disease with (acute) exacerbation chronic October 31, 2024 6:12pm [facility] Work Phone: Evaluation note* Diagnosis Chronic obstructive pulmonary disease, unspecified COPD type (HCC) documented in this encounter [facility] note* Diagnosis Chronic obstructive pulmonary disease, unspecified COPD type (HCC) Chronic obstructive pulmonary disease, unspecified COPD type (HCC) Stage 3 severe COPD by GOLD classification ([facility])- Primary Chronic respiratory failure with hypoxia and hypercapnia (HCC) YESSY (obstructive sleep apnea) Obstructive sleep apnea (adult) (pediatric) Former cigarette smoker Personal history of tobacco use, presenting hazards to health Morbid obesity (HCC) Morbid obesity Pulmonary hypertension (HCC) Other chronic pulmonary heart diseases [facility]ative[facility]No reason for referral information availableParkwood Hospital Work Phone: Chief Complaint and Reason for Visit Chief [...] encephalopathy Viral syndrome Chief Complaint FALL, LETHARGY Chief Complaint Admit Date ACUTE ON CHRONIC HYPOXIC & HYPERCAPNIC R ESPIRATORY October 31, 2024 6:12pm ACUTE ON CHRONIC HYPOXIC & HYPERCAPNIC R ESPIRATORY November 01, 2024 4:34pm ACUTE ON CHRONIC HYPOXIC & HYPERCAPNIC R ESPIRATORY November 02, 2024 4:27pm Reason for Visit Admit Date Acute respiratory failure with hypoxia a nd hypercapnia October 31, 2024 6:12pm CHF (congestive heart failure) October 31, 2024 6:12pm Elevated troponin October 31, 2024 6:12p m Chronic obstructive pulmonary disease wi th (acute) exacerbation October 31, 2024 6:12pm Chief Complaint Admit Date ACUTE ON CHRONIC HYPOXIC & HYPERCAPNIC R ESPIRATORY October 31, 2024 6:12pm Reason for Visit Admit Date Acute respiratory failure with hypoxia a nd hypercapnia October 31, 2024 6:12pm Elevated troponin October 31, 2024 6:12p m Chronic obstructive pulmonary disease wi th (acute) exacerbation October 31, 2024 6:12pm Chief Complaint Admit Date ACUTE ON CHRONIC HYPOXIC & HYPERCAPNIC R ESPIRATORY October 31, 2024 6:12pm ACUTE ON CHRONIC HYPOXIC & HYPERCAPNIC R ESPIRATORY November 01, 2024 4:34pm ACUTE ON CHRONIC HYPOXIC & HYPERCAPNIC R ESPIRATORY November 02, 2024 4:27pm ACUTE ON CHRONIC HYPOXIC & HYPERCAPNIC R ESPIRATORY November 03, 2024 5:35pm Chief Complaint Admit Date ACUTE ON CHRONIC HYPOXIC & HYPERCAPNIC R ESPIRATORY October 31, 2024 6:12pm ACUTE ON CHRONIC HYPOXIC & HYPERCAPNIC R ESPIRATORY November 01, 2024 4:34pm ACUTE ON CHRONIC HYPOXIC & HYPERCAPNIC R ESPIRATORY November 02, 2024 4:27pm ACUTE ON CHRONIC HYPOXIC & HYPERCAPNIC R ESPIRATORY November 03, 2024 5:35pm ACUTE ON CHRONIC HYPOXIC & HYPERCAPNIC R ESPIRATORY January 05, 2025 11:13am Reason for Visit Admit Date Acute respiratory failure with hypoxia a nd hypercapnia October 31, 2024 6:12pm CHF (congestive heart failure) October 31, 2024 6:12pm Elevated troponin October 31, 2024 6:12p m Chronic obstructive pulmonar y disease with (acute) exacerbation October 31, 2024 6:12pm Acute respiratory acidosis January 05, 025 11:13am Chronic anticoagulation January 05, 2025 11:13am Hypoxia January 05, 2025 11: 13am Increasing shortness of breath December 11:13am Right lower lobe pneumonia January 05 025 11:13am COPD exacerbation January 05, 2025 11: 13am Chief Complaint Admit Date ACUTE ON CHRONIC HYPOXIC & HYPERCAPNIC R ESPIRATORY October 31, 2024 6:12pm ACUTE ON CHRONIC HYPOXIC & HYPERCAPNIC R ESPIRATORY November 01, 2024 4:34pm ACUTE ON CHRONIC HYPOXIC & HYPERCAPNIC R ESPIRATORY November 02, 2024 4:27pm ACUTE ON CHRONIC HYPOXIC & HYPERCAPNIC R ESPIRATORY November 03, 2024 5:35pm ACUTE ON CHRONIC HYPOXIC & HYPERCAPNIC R ESPIRATORY January 05, 2025 11:13am ACUTE ON CHRONIC HYPOXIC & HYPERCAPNIC R ESPIRATORY January 06, 2025 4:35pm ACUTE ON CHRONIC HYPOXIC & HYPERCAPNIC R ESPIRATORY January 07, 2025 10:54am ACUTE ON CHRONIC HYPOXIC & HYPERCAPNIC R ESPIRATORY January 08, 2025 2:01pm Family History No Family History Records Found Relationship Condition Age at Onset Recorded Date/T emery mother Cardiac disease Unknown father Cardiac disease Unknown Advance Directives No Advanced Directives Records Found Advance Directive Response Recorded Date/ Time Advance Directives Yes October 20 1:05pm Living Will Yes November 30, 2021 8 :30pm Power of Interventional Pain Physician Yes November 30, 2021 8:30pm Name of Medical Power of Interventional Pain Physician ARLYN WOLFE November 30, 2021 8:30pm Advance Directive Response Recorded Date/ Time Name of Medical Power of Interventional Pain Physician Sharita November 30, 2021 11:02pm Advance Directives Yes October 20 1:05pm Living Will Yes November 30, 2021 1 1:02pm Power of Interventional Pain Physician Yes November 30, 2021 11:02pm Advance Directive Response Recorded Date/ Time Advance Directives Yes October 20 1:05pm Living Will No August 24, 2022 9:29am Power of Interventional Pain Physician No August 24 9:29am Advance Directive Response Recorded Date/ Time Do you have a Healthcare Power of Interventional Pain Physician? Yes October 31, 2024 8:02pm Advance Directives Yes October 20 1:05pm Advance Directive Response Recorded Date/ Time Do you have a Healthcare Power of Interventional Pain Physician? Yes October 31, 2024 1:41pm Advance Directives Yes October 20 1:05pm Advance Directive Response Recorded Date/ Time Do you have a Healthcare Power of Interventional Pain Physician? No January 05, 2025 9:56am Do you have a Healthcare Power of Interventional Pain Physician? Yes October 31, 2024 8:02pm Advance Directives Yes October 20 1:05pm Advance Directive Response Recorded Date/ Time Do you have a Healthcare Power of Interventional Pain Physician? Yes January 05, 2025 12:50pm Name of Medical Power of Interventional Pain Physician Michele Tirado January 05, 2025 12:50pm Do you have a Healthcare Power of Interventional Pain Physician? Yes October 31, 2024 8:02pm Advance Directives Yes October 20 1:05pm Summary Purpose Additional Source Comments Goals (unrecognized section and content) Goals may be documented in a n alternate sectionGoals may be documented in an alternate sectionGoals may be documented in an alternate sectionGoals may be documented in an alternate section Care Teams (unrecognized sec tion and content) Team Status: Active Member Role Status Dates Dr. Zee Jose DO Primary Care Provider Active Team Status: Inactive Member Role Status Dates Dr. Zee Jose DO Primary Care Provider Active Start: October 31, 2024 End: November 03, 2024 Dr. Janak Hernandez , Emergency Provider Active Start: October 31, 2024 End: November 03, 2024 Dr. Zhane Stone , DO Admit Provider Active Start : October 31, 2024 End: November 03, 2024 Dr. Zhane Stone , Other Provider Active Start : October 31, 2024 End: November 03, 2024 Dr. Teja Zeng MD Attending Provider Active Start: October 31, 2024 End: November 03, 2024 Dr. Laura Sol MD Other Provider Active St art: October 31, 2024 End: November 03, 2024 Team Status: Active Member Role Status Dates Dr. Zee Jose DO Primary Care Provider Active Start: November 01, 2024 Dr. Michelle Gonzales MD Attending Provider Active Start: November 01, 2024 Team Status: Active Member Role Status Dates Dr. Zee Jose DO Primary Care Provider Active Start: November 01, 2024 Dr. Janak Hernandez DO Emergency Provider Active Start: November 01, 2024 Dr. Zhane Stone DO Admit Provider Active Start : November 01, 2024 Dr. Zhane Stone DO Other Provider Active Start : November 01, 2024 Dr. Laura Sol MD Attending Provider Active Start: November 01, 2024 Dr. Laura Sol MD Other Provider Active St art: November 01, 2024 Team Status: Active Member Role Status Dates Dr. Zee Jose DO Primary Care Provider Active Start: November 02, 2024 Dr. Janak Hernandez DO Emergency Provider Active Start: November 02, 2024 Dr. Zhane Stone DO Admit Provider Active Start : November 02, 2024 Dr. Zhane Stone DO Other Provider Active Start : November 02, 2024 Dr. Laura Sol MD Attending Provider Active Start: November 02, 2024 Dr. Laura Sol MD Other Provider Active St art: November 02, 2024 Team Status: Active Member Role Status Dates Dr. Zee Jose DO Primary Care Provider Active Start: November 03, 2024 Dr. Janak Hernandez DO Emergency Provider Active Start: November 03, 2024 Dr. Zhane Stone DO Admit Provider Active Start : November 03, 2024 Dr. Zhane Stone DO Other Provider Active Start : November 03, 2024 Dr. Teja Zeng MD Attending Provider Active Start: November 03, 2024 Dr. Teja Zeng MD Other Provider Active Start: November 03, 2024 Dr. Laura Sol MD Other Provider Active St art: November 03, 2024 Team Status: Active Member Role Status Dates Dr. Zee Jose DO Primary Care Provider Active Start: October 31, 2024 Dr. Janak Hernandez DO Emergency Provider Active Start: October 31, 2024 Dr. Zhane Stone DO Admit Provider Active Start : October 31, 2024 Dr. Zhane Stone DO Attending Provider Active S tart: October 31, 2024 Team Status: Active Member Role Status Dates Dr. Zee Jose DO Family Provider Active Dr. Zee Jose DO Primary Care Provider Active Team Status: Inactive Member Role Status Dates Dr. Zee Rebeca , DO Primary Care Provider Active Dr. Livier Whipple MD Emergency Provider Active Team Status: Inactive Member Role Status Dates Dr. Zee Jose DO Primary Care Prov ider, Attending Provider, Referring Provider Active Team Status: Active Member Role/Relationship Status Dates Dr. Zee Jose DO Primary Care Provider Active Team Status: Inactive Member Role/Relationship Status Dates Dr. Zee Jose DO Primary Care Provider Active Start: October 31, 2024 End: November 03, 2024 Dr. Janak Hernandez DO Emergency Provider Active Start: October 31, 2024 End: November 03, 2024 Dr. Zhane Stone DO Admit Provider Active Start : October 31, 2024 End: November 03, 2024 Dr. Zhane Stone DO Other Provider Active Start : October 31, 2024 End: November 03, 2024 Dr. Teja Zeng MD Attending Provider Active Start: October 31, 2024 End: November 03, 2024 Dr. Laura Sol MD Other Provider Active St art: October 31, 2024 End: November 03, 2024 Team Status: Active Member Role/Relationship Status Dates Dr. Zee Jose DO Primary Care Provider Active Start: November 01, 2024 Dr. Michelle Gonzales MD Attending Provider Active Start: November 01, 2024 Team Status: Active Member Role/Relationship Status Dates Dr. Zee Jose DO Primary Care Provider Active Start: November 01, 2024 Dr. Janak Hernandez DO Emergency Provider Active Start: November 01, 2024 Dr. Zhane Stone DO Admit Provider Active Start : November 01, 2024 Dr. Zhane Stone DO Other Provider Active Start : November 01, 2024 Dr. Laura Sol MD Attending Provider Active Start: November 01, 2024 Dr. Laura Sol MD Other Provider Active St art: November 01, 2024 Team Status: Active Member Role/Relationship Status Dates Dr. Zee Jose DO Primary Care Provider Active Start: November 02, 2024 Dr. Janak Hernandez DO Emergency Provider Active Start: November 02, 2024 Dr. Zhane Stone DO Admit Provider Active Start : November 02, 2024 Dr. Zhane Stone DO Other Provider Active Start : November 02, 2024 Dr. Laura Sol MD Attending Provider Active Start: November 02, 2024 Dr. Laura Sol MD Other Provider Active St art: November 02, 2024 Team Status: Active Member Role/Relationship Status Dates Dr. Zee Jose DO Primary Care Provider Active Start: November 03, 2024 Dr. Janak Hernandez DO Emergency Provider Active Start: November 03, 2024 Dr. Zhane Stone DO Admit Provider Active Start : November 03, 2024 Dr. Zhane Stone DO Other Provider Active Start : November 03, 2024 Dr. Teja Zeng MD Attending Provider Active Start: November 03, 2024 Dr. Teja Zeng MD Other Provider Active Start: November 03, 2024 Dr. Laura Sol MD Other Provider Active St art: November 03, 2024 Team Status: Active Member Role/Relationship Status Dates Dr. Zee Jose DO Primary Care Provider Active Start: January 05, 2025 Dr. Lobito Benson MD Emergency Provider Active S tart: January 05, 2025 Dr. Laura Sol MD Admit Provider Active St art: January 05, 2025 Dr. Laura Sol MD Attending Provider Active Start: January 05, 2025 Team Status: Inactive Member Role/Relationship Status Dates Dr. Zee Jose DO Primary Care Provider Active Start: January 05, 2025 End: January 08, 2025 Dr. Lobito Benson MD Emergency Provider Active S tart: January 05, 2025 End: January 08, 2025 Dr. Laura Sol MD Admit Provider Active St art: January 05, 2025 End: January 08, 2025 Dr. Laura Sol MD Attending Provider Active Start: January 05, 2025 End: January 08, 2025 Dr. Laura Sol MD Other Provider Active St art: January 05, 2025 Team Status: Active Member Role/Relationship Status Dates Dr. Zee Jose DO Primary Care Provider Active Start: January 06, 2025 Dr. Lobito Benson MD Emergency Provider Active S tart: January 06, 2025 Dr. Laura Sol MD Admit Provider Active St art: January 06, 2025 Dr. Laura Sol MD Attending Provider Active Start: January 06, 2025 Dr. Laura Sol MD Other Provider Active St art: January 06, 2025 Dr. Josafat Orr MD Other Provider Active Start: January 06, 2025 Dr. Carlos Rodriguez MD Other Provider Active Start: January 06, 2025 Dr. Rupert Newell MD Other Provider Active Star t: January 06, 2025 Dr. Jesus Akhtar DO Other Provider Active Start : January 06, 2025 Dr. Con Fairbanks MD Other Provider Active Sta rt: January 06, 2025 Dr. Kasi Mills MD Other Provider Active St art: January 06, 2025 Dr. Adriano Muniz MD Other Provider Active S tart: January 06, 2025 Dr. Rhona Malave MD Other Provider Active Start: January 06, 2025 Dr. Eric Paula MD Other Provider Active Start : January 06, 2025 Dr. Raji Hammond MD Other Provider Active Start: January 06, 2025 Dr. Zay Sanford MD Other Provider Active Start : January 06, 2025 Dr. Jennie Topete MD Other Provider Active Star t: January 06, 2025 Dr. Barbra Castillo MD Other Provider Active Sta rt: January 06, 2025 Dr. Kyra Lisa MD Other Provider Active Sta rt: January 06, 2025 Dr. Guillermo Newell MD Other Provider Active Star t: January 06, 2025 Dr. Omkar Callahan MD Other Provider Active St art: January 06, 2025 Dr. Davi Burch MD Other Provider Active Star t: January 06, 2025 Dr. Farhan Benavidez DO Other Provider Active St art: January 06, 2025 Dr. Cordell Dia MD Other Provider Active Start: January 06, 2025 Dr. Jimmy Flores MD Other Provider Active St art: January 06, 2025 Dr. Marvin Jameson DO Other Provider Active Start: January 06, 2025 Dr. Ananth Draper MD Other Provider Active Star t: January 06, 2025 Dr. Matthew Parada MD Other Provider Active Sta rt: January 06, 2025 Team Status: Active Member Role/Relationship Status Dates Dr. Zee Jose , Primary Care Provider Active Start: January 07, 2025 Dr. Lobito Benson MD Emergency Provider Active S tart: January 07, 2025 Dr. Laura Sol MD Admit Provider Active St art: January 07, 2025 Dr. Laura Sol MD Attending Provider Active Start: January 07, 2025 Dr. Laura Sol MD Other Provider Active St art: January 07, 2025 Dr. Josafat Orr MD Other Provider Active Start: January 07, 2025 Dr. Carlos Rodriguez MD Other Provider Active Start: January 07, 2025 Dr. Rupert Newell MD Other Provider Active Star t: January 07, 2025 Dr. Jesus Akhtar DO Other Provider Active Start : January 07, 2025 Dr. Con Fairbanks MD Other Provider Active Sta rt: January 07, 2025 Dr. Kasi Mills MD Other Provider Active St art: January 07, 2025 Dr. Adriano Muniz MD Other Provider Active S tart: January 07, 2025 Dr. Rhona Malave MD Other Provider Active Start: January 07, 2025 Dr. Eric Paula MD Other Provider Active Start : January 07, 2025 Dr. Raji Hammond MD Other Provider Active Start: January 07, 2025 Dr. Zay Sanford MD Other Provider Active Start : January 07, 2025 Dr. Jennie Topete MD Other Provider Active Star t: January 07, 2025 Dr. Barbra Castillo MD Other Provider Active Sta rt: January 07, 2025 Dr. Kyra Lisa MD Other Provider Active Sta rt: January 07, 2025 Dr. Guillermo Newell MD Other Provider Active Star t: January 07, 2025 Dr. Omkar Callahan MD Other Provider Active St art: January 07, 2025 Dr. Davi Burch MD Other Provider Active Star t: January 07, 2025 Dr. Farhan Benavidez DO Other Provider Active St art: January 07, 2025 Dr. Cordell Dia MD Other Provider Active Start: January 07, 2025 Dr. Jimmy Flores MD Other Provider Active St art: January 07, 2025 Dr. Marvin Jameson DO Other Provider Active Start: January 07, 2025 Dr. Ananth Draper MD Other Provider Active Star t: January 07, 2025 Dr. Matthew Parada MD Other Provider Active Sta rt: January 07, 2025 Team Status: Active Member Role/Relationship Status Dates Dr. Zee Jose DO Primary Care Provider Active Start: January 08, 2025 Dr. Lobito Benson MD Emergency Provider Active S tart: January 08, 2025 Dr. Laura Sol MD Admit Provider Active St art: January 08, 2025 Dr. Laura Sol MD Attending Provider Active Start: January 08, 2025 Dr. 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 Start Date End Date Zee Jose DO [address] [place] [address] PCP - General Family Medicine 01/16/25 INFORMATION SOURCE (unrecogn ized section and content) DATE CREATED AUTHOR [facility]/14/2025 [facility] DATE CREATED AUTHOR AUTHOR'S ORGANIZ ATION 03/24/2025 [facility] Source Comments (unrecognize d section and content) In the event this informatio n is protected by the Federal Confidentiality of Alcohol and Drug Abuse Patient Records regulations: The Federal rules restrict any use of the information to criminally investigate or prosecute any alcohol or drug abuse patient.[facility] the event this information is protected by the Federal Confidentiality of Alcohol and Drug Abuse Patient Records regulations: The Federal rules restrict any use of the information to criminally investigate or prosecute any alcohol or drug abuse patient.[facility] the event this information is protected by the Federal Confidentiality of Alcohol and Drug Abuse Patient Records regulations: The Federal rules restrict any use of the information to criminally investigate or prosecute any alcohol or drug abuse patient.[facility] Center[facility] the event this information is protected by the Federal Confidentiality of Alcohol and Drug Abuse Patient Records regulations: The Federal rules restrict any use of the information to criminally investigate or prosecute any alcohol or drug abuse patient.[facility] Reason for Visit (unrecogniz ed section and content) Reason Comments Spirometry Specialty Diagnoses / Procedures Referred By Kp t Referred To Contact [facility] Diagnoses Chronic obstructive pulmonary disease, unspecified COPD type (HCC) Procedures LUNG DIFFUSION CAPACITY (DLCO) DIFFUSING CAPACITY Katharine Akhtar MD [address] [place] [address] Phone: tel: fax: [address] [phone] Referral ID Status Reason Start Date Expiration Date V isits Requested Visits Authorized [id number] Closed Auto-Generate d Referral 01/16/2025 02/15/2026 1 1 Specialty Diagnoses / Procedures Referred By Contac t Referred To Contact [facility] Diagnoses Chronic obstructive pulmonary disease, unspecified COPD type (HCC) Procedures SPIROMETRY WITH DILATOR IF OBSTRUCTED BRNCDILAT RSPSE SPMTRY PRE&POST-BRNCDILAT ADMN Katharine Akhtar MD [address] [place] [address] Phone: tel: fax: [address] [phone] Referral ID Status Reason Start Date Expiration Date V isits Requested Visits Authorized [id number] Closed Auto-Generate d Referral 01/16/2025 02/15/2026 1 1 Reason Comments Consult COPD Reason Comments Insurance Authorization FOR RECORDS PERTAINING TO PATIENTS WHO ARE [...] BE BASED ON THE PRIMARY CLINICAL RECORDS. [employer] provides no warranty or guarantee of the accuracy or completeness of information in this document.
[2025-04-23] MEDS: APIXABAN 5 MG TABLET PO (21:22)
[2025-04-24] VITALS (15 sets, daily range): BP systolic 103–138; BP diastolic 43–65; PULSE 58–66; RESP 16–20; TEMP 35.9–37.3; O2SAT 88–95; BMI 42.4
[2025-04-24 06:09] LABS: Hematocrit 30.3 % (37-47); Hemoglobin 9.4 g/dL (12.0-15.0); Immature Granulocytes Count 0.060 X10^3/uL (0.0-0.0); Mean Corp Hgb Conc 31.0 g/dL (32-36); Mean Corpuscular Volume 103.4 fL (81-99); Mean Platelet Vol. 10.4 fl (6.2-12.0); NRBC Flagged by Analyzer 0 % (0-5); POSITIVE DIFFERENTIAL YES; Platelet Count 170 K/mm3 (150-450); RBC Distribution Width CV 15.4 % (11.6-14.6); RBC Distribution Width SD 58.0 fl (35.1-43.9); Red Blood Count 2.93 M/mm3 (4.2-5.4); White Blood Count 4.1 K/mm3 (4.4-11.0)
[2025-04-24 06:36] LABS: Anion Gap 9 (5-15); BUN 48 mg/dL (4-19); BUN/Creat Ratio 23.9 RATIO (10-20); Calcium,Total 8.8 mg/dL (7.6-11.0); Carbon Dioxide 30.4 mmol/L (21.0-32.0); Chloride 105 mmol/L (98-108); Estimated Creatinine Clearance 32.13 ml/min (50-250); Glucose 132 mg/dL (70-99); Magnesium 2.2 mg/dL (1.5-2.2); Potassium 5.0 mmol/L (3.3-5.1)
--- NOTE | 2025-04-24 07:44 | PCM.PN.HOSP ---
Reason for Visit Chief Complaint: Shortness of breath Subjective Subjective Patient presented with lethargy and shortness of breath and assessment of acute metabolic encephalopathy secondary to respiratory acidosis as a result of CHF/COPD. Treatment initiated per protocol admitted to monitored bed. Seen this morning patient appears to be back to baseline much more interactive Objective Data Objective Data Vital Signs: Vital Signs Temp Pulse Resp BP Pulse Ox O2 Del Method O2 Flow Rate 97.0 F L 61 18 120/54 L 93 Nasal Cannula 3 04/24/25 03:02 04/24/25 05:19 04/24/25 03:02 04/24/25 05:19 04/24/25 03:47 04/24/25 03:48 04/24/25 03:48 FiO2 35 04/23/25 11:35 Oxygen Flow Rate (L/min) 3 Oxygen Delivery Method Nasal Cannula Weight: 119.3 kg Body Mass Index (BMI) 42.4 Intake & Output: Intake and Output for Last 24 Hours 04/22/25 04/23/25 04/24/25 23:59 23:59 23:59 Intake Total 420 / 420 Output Total 2100 / 2100 700 / 700 Balance -1680 / -1680 -700 / -700 Lab / Micro Data 04/24/25 05:55 04/24/25 05:55 Labs: Laboratory Results - last 24 hr 04/23/25 10:40: WBC 5.6, RBC 3.15 L, Hgb 10.2 L, Hct 33.4 L, MCV 106.0 H, MCH 32.4 H, MCHC 30.5 L, RDW Std Deviation 59.8 H, RDW Coeff of Alverto 15.5 H, Plt Count 160, MPV 10.7, Immature Gran % (Auto) 2.700 H, Neut % (Auto) 80.4 H, Lymph % (Auto) 8.3 L, [place] % (Auto) 7.9, Eos % (Auto) 0.0, Baso % (Auto) 0.7, Absolute Neuts (auto) 4.5, Absolute Lymphs (auto) 0.46 L, Nucleated RBC % 0, Sodium 141, Potassium 5.0, Chloride 105, Carbon Dioxide 26.5, Anion Gap 10, BUN 41 H, Creatinine 1.74 H, Estim Creat Clear Calc 38.47 L, Est GFR (MDRD) Non-Af 30 L, BUN/Creatinine Ratio 23.6 H, Glucose 111 H, Calcium 9.1, Troponin T High Sens 35 H, NT pro BNP II 2237 H 04/23/25 12:33: Troponin T Hi Sens 2 Hr 36 H 04/23/25 14:25: Troponin T Hi Sens 4Hr 39 H 04/24/25 05:55: WBC 4.1 L, RBC 2.93 L, Hgb 9.4 L, Hct 30.3 L, MCV 103.4 H, MCH 32.1 H, MCHC 31.0 L, RDW Std Deviation 58.0 H, RDW Coeff of Alverto 15.4 H, Plt Count 170, MPV 10.4, Immature Gran % (Auto) 1.500 H, Neut % (Auto) 84.8 H, Lymph % (Auto) 9.3 L, [place] % (Auto) 4.4, Eos % (Auto) 0.0, Baso % (Auto) 0.0, Absolute Neuts (auto) 3.5, Absolute Lymphs (auto) 0.38 L, Nucleated RBC % 0, Sodium 144, Potassium 5.0, Chloride 105, Carbon Dioxide 30.4, Anion Gap 9, BUN 48 H, Creatinine 2.02 H, Estim Creat Clear Calc 32.13 L, Est GFR (MDRD) Non-Af 25 L, BUN/Creatinine Ratio 23.9 H, Glucose 132 H, Calcium 8.8, Phosphorus 5.1 H, Magnesium 2.2 04/24/25 05:55: Magnesium Cancelled Micro: Microbiology 04/23/25 14:02 Mucosa - Nasopharyngeal Respiratory Panel (PCR) - Final 04/23/25 14:03 Mucosa - Nose Coronavirus COVID-19 PCR - Final ABG Data ABG results: ABG 04/23/25 04/23/25 11:16 14:31 Specimen Type ART ART Sample Site L Radial R Brach pH 7.15 L* 7.22 L Bicarbonate Actual 30.2 H 29.6 H Total CO2 33 32 Base Excess 1 2 O2 Saturation 73 L 85 L O2 % 2.0 3.0 ABG pCO2 85.9 H* 72.0 H* ABG pO2 51 L 61 L Noman Test Positive N/A O2 Delivery Device Cannula Cannula Vent Mode Not entered Not entered Crit Call To/Read Back Yes Yes Blood Gas Notified Whom NENO GONZALEZ CHARGE Blood Gas Notified Time 11:18:11 14:34:21 Radiography Diagnostic Testing: Radiology Impression Chest X-Ray 04/23/25 11:00 IMPRESSION: Cardiomegaly and mild CHF with blunting of the right costophrenic angle and mild bibasilar atelectasis. Reading Location: [place] [address] Rhythm Strip Rhythm Strip: Sinus Rhythm Rate: 55 Ectopy: PAC(s) Physical Exam Narrative GENERAL: Awake and cooperative HEENT: Atraumatic; normocephalic EYES; Anicteric, Normal Conjunctiva NECK; supple, normal thyroid, RESPIRATORY: Diminished to auscultation CARDIOVASCULAR: Regular S1 S2, GI: soft, normoactive bowel sounds, : No Renal angle tenderness; EXTREMITIES: Trace bipedal edema, no clubbing, MUSCULOSKELETAL: no muscle wasting NEURO: Awake, no lateralizing signs SKIN: No Rash PSYCH; cheerful Assessment & Plan Assessment/Plan (1) Acute on chronic diastolic (congestive) heart failure: (2) CKD (chronic kidney disease): (3) COPD (chronic obstructive pulmonary disease): (4) Acute on chronic respiratory failure with hypoxia and hypercapnia: PLAN: Plan Patient is 74-year-old lady with multiple comorbidities presented with significant shortness of breath 1. Acute hypoxic and hypercapnic respiratory failure ? Multifactorial including CHF, COPD, suspected obstructive sleep apnea as well as obesity hypoventilation syndrome. ABG obtained on admission demonstrated significant acidosis with pH of 7.15 and pCO2 of 85.9. Patient placed on noninvasive ventilation BiPAP admitted to monitored bed. Repeat ABG ordered in 3 hours to assess response to initial therapy ? 04/24/2024 patient responded to initial therapy and has since been weaned off BiPAP and is currently on nasal cannula 2. Acute on chronic congestive heart failure with preserved ejection fraction ? 2D echo obtained in October 2024 did show Mild concentric left ventricular hypertrophy. The LV systolic function is normal. EF is 65 %. Stage 1 diastolic dysfunction. The left atrium is severely enlarged.Right ventricular systolic pressure estimated to be 47 mmHg. Aortic sclerosis, no stenosis. Mildly dilated aortic root.. Chest x-ray on admission demonstrated Cardiomegaly and mild CHF with blunting of the right costophrenic angle and mild bibasilar atelectasis. Patient presented with acute hypoxic and hypercapnic respiratory failure admitted to a monitored bed placed on noninvasive ventilation BiPAP as documented above also ordered IV furosemide 40 mg every 8 in addition to fluid restriction strict input and output Silverio catheter was ordered for assessment of accurate I's and O's ? 04/24/2025; patient is in a negative fluid balance of 2.4 L since admission 3. COPD ? Bronchodilator treatments as needed in addition to PAP therapy described above 4. Suspected obstructive sleep apnea ? Patient had apparently been evaluated by pulmonology as outpatient patient however elected not to wear any PAP therapy official sleep study was subsequently not ordered 5. Class III obesity with BMI of 42.3 ? Complicating care plan is to rehabilitation counsellor patient on weight reduction following improvement in her altered mental status 6. Acute metabolic encephalopathy Secondary to combination of hypoxia and hypercapnic respiratory failure do expect improvement in her level of sensorium with treatment of underlying clinical etiology 7. History of pulmonary embolism ? Patient is on apixaban 8. Chronic kidney disease stage IIIb ? Patient kidney function at baseline ? 04/24/2025 was no patient kidney function adjusted Lasix dose 9. Anemia ? Secondary to chronic disorder monitoring H&H and transfuse if patient becomes symptomatic or hemoglobin falls below 7 ? 04/24/2025; patient hemoglobin down to 9.4 will continue with monitoring repeat H&H ordered for a.m. 10. Essential hypertension ? Patient is on metoprolol 11. Dyslipidemia ? Patient is on gemfibrozil held on admission 12. DVT prophylaxis ? Patient already anticoagulated with apixaban Time spent in the patient's overall evaluation,decision-making process, review of diagnostic data, adjustment of management, discussion with other providers, nursing nursing and ancillary staff involved in patient's care documentation, 50 Minutes Charges/Coding Visit Charges Inpatient E&M: 42349 Subs Hosp L3
[2025-04-24] MEDS: APIXABAN 5 MG TABLET PO ×2 (09:55→21:44)
--- NOTE | 2025-04-24 10:19 | CASEMGMT ---
Social Work SW spoke with the patient and she reported her plan is to return to [facility]. Patient reported she uses [employer] for her oxygen. SW called [employer] and confirmed patient uses [employer] 3LPM continuous. BRIAN Fierro
--- NOTE | 2025-04-24 10:59 | CASEMGMT ---
Discharge Planning Updates faxed to christ[facility] Dumont; Cheryl with not requesting follow up if they have any concerns with pt returning. Fax confirmation rec'd. Yohana Alvares DC Planning Asst.
--- NOTE | 2025-04-24 12:22 | CASEMGMT ---
Discharge Planning A list of?SNF providers including quality and resource use data and consistent with the patient's preferred geographic region, medical needs, and insurance network was created in [employer] Guide.? This list was provided to the TANG. Yohana Alvares, Discharge Planning Asst
--- NOTE | 2025-04-24 13:21 | CASEMGMT ---
Social Work SW spoke with the patient. Patient reported she does not want to DC to a SNF and she does not want HH at DC. Patient reported she wants to DC back to [place]. BRIAN Fierro
[2025-04-24] MEDS: 0.9% Saline Lock 10 ML Syringe IV ×3 (14:26→21:49)
--- NOTE | 2025-04-24 14:48 | CHAPLAIN ---
Type of Pastoral Visit _x__ Initial Visit ___ Follow-up Visit ___ On-call Visit ___ General Patient Visit ___ Spiritual Assessment ___ Family Conference ___ Bereavement ___ Rapid Response ___ Code Blue ___ Other (describe below) Pastoral Care Referral From _x__ Patient ___ Family ___ Nurse ___ Physician ___ Scraper Meat ___ Feeder Catcher ___ Other (describe below) Sacrament/Intervention _x__ Active listening ___ Anointing ___ Yarsanism ___ Bereavement ___ Communion _x__ Rosa Maria exploration ___ ___ Life review _x__ Prayer ___ Reconciliation ___ Sacrament of Sick _x__ Supportive presence ___ Wedding ___ Other (describe below) Pastoral Comments patient is eager to talk about her situation, life perspective, politics and rosa maria, and her living arrangements at [place]; however as talk continued she shared about losing her and how that has changed so much of her life, especially since she did not have children; prayer is welcomed; presence given
--- NOTE | 2025-04-24 23:40 | CPS ---
PATIENT REFUSED PAP THERAPY FOR NIGHT TIME USE
[2025-04-25] VITALS (12 sets, daily range): BP systolic 97–109; BP diastolic 54–79; PULSE 63–147; RESP 16–20; TEMP 36.1–36.8; O2SAT 84–94; BMI 41.9; BMI 41.6
--- NOTE | 2025-04-25 00:30 | EKG12_ITS ---
Test Reason : RYTHM CHANGE Blood Pressure : */* mmHG Vent. Rate : 143 BPM Atrial Rate : * BPM P-R Int : * ms QRS Dur : 86 ms QT Int : 276 ms P-R-T Axes : * 5 195 degrees QTcB Int : 425 ms Critical Test Result: High HR Atrial fibrillation with rapid ventricular response with premature ventricular or aberrantly conducted complexes Nonspecific ST and T wave abnormality Abnormal ECG When compared with ECG of 23-Apr-2025 10:44, MANUAL COMPARISON REQUIRED DATA IS UNCONFIRMED Confirmed by URIEL ROMERO, TANA ([id number]), film and video editor NAMITA OVIEDO ([id number]) on 04/25/2025 1:57:51 PM Referred By: DAYANARA Confirmed By: TANA TREVINO MD
--- NOTE | 2025-04-25 01:14 | PCM.HOSP.N ---
Hospitalist Note EKG obtained, demonstrates AFib/RVR with rate of 130-145, hx of AFib last documented in December of this year. She is anticoagulated on apixaban 5mg twice daily, taking metoprolol 25mg twice daily. BP 109/70. I ordered metoprolol 5mg IV x1 now, will re-evaluate post administration of medication. HR remains 130s. Additional metoprolol 5mg IV x2, w/15min , ordered per discussion w/ of giving a total of 15mg metoprolol IV before considering giving diltiazem 20mg IV. Nrsg to notify hospitalist after 3 total doses of metoprolol 5mg w/HR and BP.
--- NOTE | 2025-04-25 04:50 | RAD_ITS ---
PROCEDURE: CHEST 1 VIEW (PORTABLE) 04/25/2025 REASON FOR EXAM: FOLLOW-UP PULMONARY EDEMA AND EFFUSION TECHNIQUE: Frontal view of the chest. COMPARISON: Available priors FINDINGS: Cardiomegaly. Atherosclerosis of the aorta. No lobar consolidation. Mild pulmonary venous congestion. Blunted right costophrenic angle consistent with small effusion. No pneumothorax. The patient is status post extensive thoracic fusion for scoliosis. RAD/Chest 1 View (Portable) IMPRESSION: Cardiomegaly. Small right pleural effusion with mild pulmonary venous congestion. No change since previous exams. Reading Location: [id number]
--- NOTE | 2025-04-25 05:12 | PCM.HOSP.N ---
Hospitalist Note Patient's heart rate remained in the 130s and 140s range, A-fib rhythm. She received a total of 4 doses of IV metoprolol 5 mg each between 1 AM and 3 AM. Heart rate slowed down, between 110 and 130. Blood pressure remained okay systolic around 100, MAP above 75 Very comfortable lying in bed, no orthopnea or PND while asleep, no resting dyspnea while awake. No snoring or apneic episodes witnessed. On 6 L oxygen higher than baseline probably because she is not using her CPAP during the night. Scattered end expiratory wheezing on exam Overall she is improving, edema is almost gone in her legs Because she occasionally goes to sinus rhythm with a rate in the 40s, I did not start a diltiazem drip for rate control. She is tolerating the current rate Narrow pulse pressure, 100/70, suggesting intravascular volume depletion. She is -5 L, I reduced her Lasix further to once a day, next dose around noon so she would have time for intravascular refill. Her LVEF is normal, and diastolic heart failure needs some filling pressures so aggressive diuresis may be less tolerated as compared to systolic failure. I did not order small bolus as she should improve by reducing Lasix alone. I ordered chest x-ray to make sure her 6 L oxygen requirement is not from worsening or persistent edema
[2025-04-25 05:58] LABS: Hematocrit 30.9 % (37-47); Hemoglobin 9.9 g/dL (12.0-15.0); Immature Granulocytes Count 0.060 X10^3/uL (0.0-0.0); Mean Corp Hgb Conc 32.0 g/dL (32-36); Mean Corpuscular Volume 100.3 fL (81-99); Mean Platelet Vol. 10.4 fl (6.2-12.0); NRBC Flagged by Analyzer 0 % (0-5); POSITIVE DIFFERENTIAL YES; Platelet Count 196 K/mm3 (150-450); RBC Distribution Width CV 15.0 % (11.6-14.6); RBC Distribution Width SD 53.9 fl (35.1-43.9); Red Blood Count 3.08 M/mm3 (4.2-5.4); White Blood Count 4.9 K/mm3 (4.4-11.0)
[2025-04-25 06:22] LABS: Anion Gap 12 (5-15); BUN 57 mg/dL (4-19); BUN/Creat Ratio 28.9 RATIO (10-20); Calcium,Total 8.7 mg/dL (7.6-11.0); Carbon Dioxide 29.4 mmol/L (21.0-32.0); Chloride 101 mmol/L (98-108); Estimated Creatinine Clearance 32.75 ml/min (50-250); Glucose 119 mg/dL (70-99); Potassium 4.0 mmol/L (3.3-5.1)
--- NOTE | 2025-04-25 07:49 | CON.PCM.CA_ITS ---
Assessment & Plan Assessment/Plan (1) Paroxysmal atrial fibrillation: PLAN: Presents with paroxysmal defibrillation. Her ventricular response rate appears to be fairly well-controlled she is already on anticoagulation recommendation would continue the beta-kelin as well as the anticoagulation. (2) Acute on chronic diastolic (congestive) heart failure: PLAN: She does have likely diastolic heart failure. I would recommend that we continue to monitor her at this time carefully adjusting her fluid intake. HPI Consult Data Date of Consult: 04/25/25 HPI Narrative HPI Narrative: DESIRE CHAUDHRY, is a 74 F who presents with PMH of COPD, chronic kidney disease, prior venous thromboembolism on Eliquis, and recurrent hypercapnic episodes, presenting from a nursing facility for hypoxia noted during routine vitals and progressive fatigue with decreased mobility since /Wednesday. She is DNR- CCA with no intubation per prior directive confirmed with daughter. ABG shows pH 7.15, PCO2 86, HCO3 30 indicating acute on chronic hypercapnic respiratory acidosis. Chest X-ray demonstrates mild cephalization supportive of congestive heart failure, and proBNP 2237 is roughly double her October baseline despite stable renal function, suggesting acute on chronic diastolic CHF exacerbation. Troponin 35 and non-ischemic EKG make ACS unlikely. Overall picture is acute on chronic respiratory failure with hypoxia and hypercapnia attributable to COPD exacerbation, complicated by volume overload from diastolic CHF. While she was in the hospital she was noted to be in atrial fibrillation with a rapid ventricular response rate which has improved and cardiology was consulted. She had previously had an echocardiogram this year which demonstrated preserved left ventricular systolic function of 65%. She apparently had an appointment with pulmonary service but did not follow-up with them because she did not want her BiPAP. [facility] Medical History Chronic anticoagulation Chronic anemia Constipation Emphysema lung Thrombocytopenia Stroke/cerebrovascular accident History of pulmonary embolism HLD (hyperlipidemia) Chronic back pain COPD (chronic obstructive pulmonary disease) HTN (hypertension) Home Medications ?Medication ?Instructions ?Recorded ?Last Taken ?Type gemfibrozil 600 mg tablet 600 mg PO BID cholesteol 09/1610/31/24 History apixaban 5 mg tablet (Eliquis) 5 mg PO BID blood thinn er 01/21/24 10/31/24 History albuterol sulfate 90 mcg/actuation 2 puff inhalation Q 6H PRN PRN 01/05/25 Unknown History aerosol inhaler wheezing budesonide-formoterol HFA 80 2 puff inhalation Q12H CO PD 01/05/25 Unknown History mcg-4.5 mcg/actuation aerosol inhaler (Breyna) gabapentin 300 mg capsule 300 mg PO Q12H 01/05/25 Unkn own History sennosides 8.6 mg-docusate sodium 2 tab-cap PO BID PRN constipation 01/05/25 Unknown History 50 mg tablet (Senna with Docusate Sodium) furosemide 40 mg tablet 40 mg PO DAILY #30 tabs 12/29 06/24 Unknown Rx OXYGEN - Supplemental ([facility] 04/23/25 Unknown History INFORMATIONAL USE ONLY) acetaminophen 325 mg capsule 325 mg PO Q4H PRN fever o r pain 04/23/25 Unknown History loperamide 2 mg tablet 2 mg PO Q6H PRN loose stool 04/23/25 Unknown History (Anti-Diarrheal (loperamide)) magnesium hydroxide 400 mg/5 mL 30 ml PO PRN 04/23/25 Unknown History oral suspension (Gentle Laxative (magnesium hydroxide)) metoprolol tartrate 25 mg tablet 25 mg PO BID 04/23/25 Unknown History Allergy/AdvReac Type Severity Reaction Status Date / Time No Known Allergies Allergy Verified 04/23/25 10:22 Family History Mother Heart disease Father Heart disease Surgical History Previous back surgery Social History housing: assisted living facility Smoking Status: Former smoker alcohol intake: never substance use type: does not use ROS Constitutional Constitutional: Denies fever(s) or weight loss Eyes Eyes: Reports systems reviewed and no addt'l complaints, except as documented ENT HEENT: Reports systems reviewed and no addt'l complaints, except as documented Cardiovascular Cardiovascular: Reports dyspnea at rest and dyspnea on exertion; Denies chest pain at rest, chest pain with activity, edema, palpitations or paroxysmal nocturnal dyspnea Respiratory/Chest Respiratory/Chest: Denies dyspnea on exertion, productive cough, shortness of breath at rest or shortness of breath with exertion Gastrointestinal Gastrointestinal: Denies change in bowel habits, nausea, vomiting or weight changes Genitourinary Genitourinary: Denies difficulty urinating Musculoskeletal Musculoskeletal: Denies joint stiffness or muscle weakness Integumentary Integumentary: Denies lesions Neurologic Neurologic: Denies dizziness or syncope Psychiatric Psychiatric: Denies anxiety Endocrine Endocrinology: Denies excessive sweating or fatigue Hematologic/Lymphatic Hematologic/Lymphatic: Denies anemia Allergic/Immunologic Allergic/Immunologic: Denies seasonal rhinorrhea Physical Exam Const alert and oriented x3 Orientation / Consciousness: awake Eyes PERRL and EOMs intact bilaterally Neck full ROM Chest inspection of chest normal Resp Auscultation: diminished lung sounds Cardio Rhythm: abnormal rhythm irregularly irregular GI normal to inspection, nondistended, normoactive bowel sounds Psych mental status grossly normal Objective Data Vital Signs: Vital Signs Temp Pulse Resp BP Pulse Ox O2 Del Method O2 Flow Rate 97.3 F L 122 H 18 97/79 92 Nasal Cannula 6 04/25/25 02:20 04/25/25 03:28 04/25/25 02:20 04/25/25 02:20 04/25/25 02:20 04/25/25 04:20 04/25/25 04:20 FiO2 35 04/23/25 11:35 Oxygen Flow Rate (L/min) 6 Oxygen Delivery Method Nasal Cannula Weight: 257 lb 15.053 oz Body Mass Index (BMI) 41.6 Intake & Output: Intake and Output for Last 24 Hours 04/23/25 04/24/25 04/25/25 23:59 23:59 23:59 Intake Total 420 / 420 860 / 860 Output Total 2100 / 2100 4250 / 4250 800 / 800 Balance -1680 / -1680 -3390 / -3390 -800 / -800 Lab / Micro Data 04/25/25 05:30 04/25/25 05:30 Labs: Laboratory Results - last 24 hr 04/25/25 05:30: WBC 4.9, RBC 3.08 L, Hgb 9.9 L, Hct 30.9 L, MCV 100.3 H, MCH 32.1 H, MCHC 32.0, RDW Std Deviation 53.9 H, RDW Coeff of Alverto 15.0 H, Plt Count 196, MPV 10.4, Immature Gran % (Auto) 1.200 H, Neut % (Auto) 86.2 H, Lymph % (Auto) 8.1 L, [place] % (Auto) 4.5, Eos % (Auto) 0.0, Baso % (Auto) 0.0, Absolute Neuts (auto) 4.2, Absolute Lymphs (auto) 0.40 L, Nucleated RBC % 0, Sodium 142, Potassium 4.0, Chloride 101, Carbon Dioxide 29.4, Anion Gap 12, BUN 57 H, C reatinine 1.96 H, Estim Creat Clear Calc 32.75 L, Est GFR (MDRD) Non-Af 26 L, B UN/Creatinine Ratio 28.9 H, Glucose 119 H, Calcium 8.7 Rhythm Strip Rhythm Strip: Sinus Rhythm Rate: 55 Ectopy: PAC(s) Cardiology Labs/Tests 04/25/25 05:30: WBC 4.9, RBC 3.08 L, Hgb 9.9 L, Hct 30.9 L, MCV 100.3 H, MCH 32.1 H, MCHC 32.0, Plt Count 196, MPV 10.4, Immature Gran % (Auto) 1.200 H, Neut % (Auto) 86.2 H, Lymph % (Auto) 8.1 L, [place] % (Auto) 4.5, Eos % (Auto) 0.0, Baso % (Auto) 0.0, Absolute Neuts (auto) 4.2, Nucleated RBC % 0, Sodium 142, Potassium 4.0, Chloride 101, Carbon Dioxide 29.4, Anion Gap 12, BUN 57 H, C reatinine 1.96 H, Est GFR (MDRD) Non-Af 26 L, BUN/Creatinine Ratio 28.9 H, G lucose 119 H, Calcium 8.7 Rhythm: EKG: ECHO: Stress Test: Cardiac Cath: PCI: CT Surgery: Holter monitor: EPS: PPM: CXR: Chest CT Scan: Radiography Diagnostic Testing: Radiology Impression Chest X-Ray 04/25/25 04:50 IMPRESSION: Cardiomegaly. Small right pleural effusion with mild pulmonary venous congestion. No change since previous exams. Reading Location: [facility] Risk Score for UA/STEMI Assesmment (YES = 1) Risk Stratification Applicable: No
--- NOTE | 2025-04-25 07:49 | PCM.PN.HOSP ---
Reason for Visit Chief Complaint: Shortness of breath Subjective Subjective Patient seen still remains on supplemental oxygen. Plan is to repeat patient home oxygen requirement and if close to her baseline decision will be made to discharge patient Objective Data Objective Data Vital Signs: Vital Signs Temp Pulse Resp BP Pulse Ox O2 Del Method O2 Flow Rate 97.3 F L 122 H 18 97/79 92 Nasal Cannula 6 04/25/25 02:20 04/25/25 03:28 04/25/25 02:20 04/25/25 02:20 04/25/25 02:20 04/25/25 04:20 04/25/25 04:20 FiO2 35 04/23/25 11:35 Oxygen Flow Rate (L/min) 6 Oxygen Delivery Method Nasal Cannula Weight: 117 kg Body Mass Index (BMI) 41.6 Intake & Output: Intake and Output for Last 24 Hours 04/23/25 04/24/25 04/25/25 23:59 23:59 23:59 Intake Total 420 / 420 860 / 860 Output Total 2100 / 2100 4250 / 4250 800 / 800 Balance -1680 / -1680 -3390 / -3390 -800 / -800 Lab / Micro Data 04/25/25 05:30 04/25/25 05:30 Labs: Laboratory Results - last 24 hr 04/25/25 05:30: WBC 4.9, RBC 3.08 L, Hgb 9.9 L, Hct 30.9 L, MCV 100.3 H, MCH 32.1 H, MCHC 32.0, RDW Std Deviation 53.9 H, RDW Coeff of Alverto 15.0 H, Plt Count 196, MPV 10.4, Immature Gran % (Auto) 1.200 H, Neut % (Auto) 86.2 H, Lymph % (Auto) 8.1 L, [place] % (Auto) 4.5, Eos % (Auto) 0.0, Baso % (Auto) 0.0, Absolute Neuts (auto) 4.2, Absolute Lymphs (auto) 0.40 L, Nucleated RBC % 0, Sodium 142, Potassium 4.0, Chloride 101, Carbon Dioxide 29.4, Anion Gap 12, BUN 57 H, Creatinine 1.96 H, Estim Creat Clear Calc 32.75 L, Est GFR (MDRD) Non-Af 26 L, BUN/Creatinine Ratio 28.9 H, Glucose 119 H, Calcium 8.7 Micro: Microbiology 04/23/25 14:02 Mucosa - Nasopharyngeal Respiratory Panel (PCR) - Final 04/23/25 14:03 Mucosa - Nose Coronavirus COVID-19 PCR - Final Radiography Diagnostic Testing: Radiology Impression Chest X-Ray 04/25/25 04:50 IMPRESSION: Cardiomegaly. Small right pleural effusion with mild pulmonary venous congestion. No change since previous exams. Reading Location: [facility] Rhythm Strip Rhythm Strip: Sinus Rhythm Rate: 55 Ectopy: PAC(s) Physical Exam Narrative GENERAL: Awake and cooperative HEENT: Atraumatic; normocephalic EYES; Anicteric, Normal Conjunctiva NECK; supple, normal thyroid, RESPIRATORY: Diminished to auscultation CARDIOVASCULAR: Regular S1 S2, GI: soft, normoactive bowel sounds, : No Renal angle tenderness; EXTREMITIES: Trace bipedal edema, no clubbing, MUSCULOSKELETAL: no muscle wasting NEURO: Awake, no lateralizing signs SKIN: No Rash PSYCH; cheerful Assessment & Plan Assessment/Plan (1) Acute on chronic diastolic (congestive) heart failure: (2) CKD (chronic kidney disease): (3) COPD (chronic obstructive pulmonary disease): (4) Acute on chronic respiratory failure with hypoxia and hypercapnia: PLAN: Plan Patient is 74-year-old lady with multiple comorbidities presented with significant shortness of breath 1. Acute hypoxic and hypercapnic respiratory failure ? Multifactorial including CHF, COPD, suspected obstructive sleep apnea as well as obesity hypoventilation syndrome. ABG obtained on admission demonstrated significant acidosis with pH of 7.15 and pCO2 of 85.9. Patient placed on noninvasive ventilation BiPAP admitted to monitored bed. Repeat ABG ordered in 3 hours to assess response to initial therapy ? 04/24/2025 patient responded to initial therapy and has since been weaned off BiPAP and is currently on nasal cannula ?04/25/2025;Patient seen still remains on supplemental oxygen. Plan is to repeat patient home oxygen requirement and if close to her baseline decision will be made to discharge patient 2. Acute on chronic congestive heart failure with preserved ejection fraction ? 2D echo obtained in October 2024 did show Mild concentric left ventricular hypertrophy. The LV systolic function is normal. EF is 65 %. Stage 1 diastolic dysfunction. The left atrium is severely enlarged.Right ventricular systolic pressure estimated to be 47 mmHg. Aortic sclerosis, no stenosis. Mildly dilated aortic root.. Chest x-ray on admission demonstrated Cardiomegaly and mild CHF with blunting of the right costophrenic angle and mild bibasilar atelectasis. Patient presented with acute hypoxic and hypercapnic respiratory failure admitted to a monitored bed placed on noninvasive ventilation BiPAP as documented above also ordered IV furosemide 40 mg every 8 in addition to fluid restriction strict input and output Silverio catheter was ordered for assessment of accurate I's and O's ? 04/24/2025; patient is in a negative fluid balance of 2.4 L since admission ? 04/25/2025; patient continues to diurese well and was net negative fluid balance of 3.5 L over the past 24 hours 3. COPD ? Bronchodilator treatments as needed in addition to PAP therapy described above 4. Suspected obstructive sleep apnea ? Patient had apparently been evaluated by pulmonology as outpatient patient however elected not to wear any PAP therapy official sleep study was subsequently not ordered 5. Class III obesity with BMI of 42.3 ? Complicating care plan is to hiv counselor patient on weight reduction following improvement in her altered mental status 6. Acute metabolic encephalopathy Secondary to combination of hypoxia and hypercapnic respiratory failure do expect improvement in her level of sensorium with treatment of underlying clinical etiology 7. History of pulmonary embolism ? Patient is on apixaban 8. Chronic kidney disease stage IIIb ? Patient kidney function at baseline ? 04/24/2025 was no patient kidney function adjusted Lasix dose 9. Anemia ? Secondary to chronic disorder monitoring H&H and transfuse if patient becomes symptomatic or hemoglobin falls below 7 ? 04/24/2025; patient hemoglobin down to 9.4 will continue with monitoring repeat H&H ordered for a.m. 10. Essential hypertension ? Patient is on metoprolol 11. Dyslipidemia ? Patient is on gemfibrozil held on admission 12. DVT prophylaxis ? Patient already anticoagulated with apixaban Time spent in the patient's overall evaluation,decision-making process, review of diagnostic data, adjustment of management, discussion with other providers, nursing nursing and ancillary staff involved in patient's care documentation, 40 Minutes Charges/Coding Visit Charges Inpatient E&M: 40047 Subs Hosp L2
[2025-04-25] MEDS: APIXABAN 5 MG TABLET PO (09:06)
--- NOTE | 2025-04-25 09:24 | CASEMGMT ---
Addendum entered by Yohana Alvares 04/25/25 11:28: Call placed to Tim and vm left for [place] to verify receipt of updates. Original Note: Discharge Planning Updates faxed to christiano Dumont; Cheryl with note that pt should dc today and to call if they had any concerns with her return. Fax confirmation rec'd. Yohana Alvares DC Planning Asst.
--- NOTE | 2025-04-25 09:25 | CASEMGMT ---
Addendum entered by Ashley Luis 04/25/25 11:01: Patient reported she already has papers posted with the exercise she needs to do and she can do them herself. Patient reported she does not need therapy at DC. Original Note: Social Work SW spoke with the patient. SW asked again if the patient wants HH at DC and patient reported no. SW informed the patient SW will set up transportation when she DC. Patient will need a new oxygen order due to her oxygen level increase during her hospital stay. BRIAN Fierro
--- NOTE | 2025-04-25 10:59 | DS.PCM_ITS ---
Providers Date of Admission: 04/23/25 Date of Discharge: 04/25/25 Primary Care Physician: Dr. Matthew Valdivia, Consultations 04/25/25 06:48 Consult: Cardiology Routine Consulting Provider: Aris Childs Reason for Consult: A-fib with RVR EMERGENT Consult: No MD Notified: Yes Date Notified: 04/25/25 Time Notified: 07:54 Method of Notification: Text Reason For Visit: CHF, ACUTE HYPOXIC RESPIRATORY FAILURE Diagnosis Discharge Diagnosis (1) Acute on chronic diastolic (congestive) heart failure: Status: Chronic Code(s): I50.33 - Acute on chronic diastolic (congestive) heart failure (2) CKD (chronic kidney disease): Status: Chronic Code(s): N18.9 - Chronic kidney disease, unspecified (3) COPD (chronic obstructive pulmonary disease): Status: Chronic Code(s): J44.9 - Chronic obstructive pulmonary disease, unspecified (4) Acute on chronic respiratory failure with hypoxia and hypercapnia: Status: Chronic Code(s): J96.21 - Acute and chronic respiratory failure with hypoxia; J96.22 - Acute and chronic respiratory failure with hypercapnia Plan Patient is 74-year-old lady with multiple comorbidities presented with significant shortness of breath 1. Acute hypoxic and hypercapnic respiratory failure ? Multifactorial including CHF, COPD, suspected obstructive sleep apnea as well as obesity hypoventilation syndrome. ABG obtained on admission demonstrated significant acidosis with pH of 7.15 and pCO2 of 85.9. Patient placed on noninvasive ventilation BiPAP admitted to monitored bed. Repeat ABG ordered in 3 hours to assess response to initial therapy ? 04/24/2025 patient responded to initial therapy and has since been weaned off BiPAP and is currently on nasal cannula ?04/25/2025;Patient seen still remains on supplemental oxygen. Plan is to repeat patient home oxygen requirement and if close to her baseline decision will be made to discharge patient ? Patient home oxygen assessment did not indicate any increased requirement. She was therefore made to discharge patient home 2. Acute on chronic congestive heart failure with preserved ejection fraction ? 2D echo obtained in October 2024 did show Mild concentric left ventricular hypertrophy. The LV systolic function is normal. EF is 65 %. Stage 1 diastolic dysfunction. The left atrium is severely enlarged.Right ventricular systolic pressure estimated to be 47 mmHg. Aortic sclerosis, no stenosis. Mildly dilated aortic root.. Chest x-ray on admission demonstrated Cardiomegaly and mild CHF with blunting of the right costophrenic angle and mild bibasilar atelectasis. Patient presented with acute hypoxic and hypercapnic respiratory failure admitted to a monitored bed placed on noninvasive ventilation BiPAP as documented above also ordered IV furosemide 40 mg every 8 in addition to fluid restriction strict input and output Silverio catheter was ordered for assessment of accurate I's and O's ? 04/24/2025; patient is in a negative fluid balance of 2.4 L since admission ? 04/25/2025; patient continues to diurese well and was net negative fluid balance of 3.5 L over the past 24 hours 3. COPD ? Bronchodilator treatments as needed in addition to PAP therapy described above 4. Suspected obstructive sleep apnea ? Patient had apparently been evaluated by pulmonology as outpatient patient however elected not to wear any PAP therapy official sleep study was subsequently not ordered 5. Class III obesity with BMI of 42.3 ? 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 Acute metabolic encephalopathy Secondary to combination of hypoxia and hypercapnic respiratory failure do expect improvement in her level of sensorium with treatment of underlying clinical etiology 7. History of pulmonary embolism ? Patient is on apixaban 8. Chronic kidney disease stage IIIb ? Patient kidney function at baseline ? 04/24/2025 was no patient kidney function adjusted Lasix dose 9. Anemia ? Secondary to chronic disorder monitoring H&H and transfuse if patient becomes symptomatic or hemoglobin falls below 7 ? 04/24/2025; patient hemoglobin down to 9.4 will continue with monitoring repeat H&H ordered for a.m. 10. Essential hypertension ? Patient is on metoprolol 11. Dyslipidemia ? Patient is on gemfibrozil held on admission 12. DVT prophylaxis ? Patient already anticoagulated with apixaban Time spent in the patient's overall evaluation,decision-making process, review of diagnostic data, adjustment of management, discussion with other providers, nursing nursing and ancillary staff involved in patient's care documentation, 40 Minutes Medications at Discharge Home Medications gemfibrozil 600 mg tablet 600 mg PO BID cholesteol 03/03/19 apixaban 5 mg tablet (Eliquis) 5 mg PO BID blood thinner 01/21/24 albuterol sulfate 90 mcg/actuation aerosol inhaler 2 puff inhalation Q6H PRN PRN wheezing 01/05/25 budesonide-formoterol HFA 80 mcg-4.5 mcg/actuation aerosol inhaler (Breyna) 2 puff inhalation Q12H COPD 01/05/25 gabapentin 300 mg capsule 300 mg PO Q12H 01/05/25 sennosides 8.6 mg-docusate sodium 50 mg tablet (Senna with Docusate Sodium) 2 tab-cap PO BID PRN constipation 01/05/25 furosemide 40 mg tablet 40 mg PO DAILY #30 tabs 01/08/25 OXYGEN - Supplemental ([facility] INFORMATIONAL USE ONLY) 04/23/25 acetaminophen 325 mg capsule 325 mg PO Q4H PRN fever or pain 04/23/25 loperamide 2 mg tablet (Anti-Diarrheal (loperamide)) 2 mg PO Q6H PRN loose stool 04/23/25 magnesium hydroxide 400 mg/5 mL oral suspension (Gentle Laxative (magnesium hydroxide)) 30 ml PO PRN 04/23/25 metoprolol tartrate 25 mg tablet 25 mg PO BID 04/23/25 guaifenesin 600 mg tablet, extended release 12 hr (Mucinex) 1,200 mg (2 x 600 mg) PO BID 10 days #40 tabs 04/25/25 prednisone 20 mg tablet 20 mg PO BID 7 days #14 tabs 04/25/25 spironolactone 25 mg tablet (Aldactone) 25 mg PO DAILY #30 tabs 04/25/25 Physical Exam Narrative GENERAL: Awake and cooperative HEENT: Atraumatic; normocephalic EYES; Anicteric, Normal Conjunctiva NECK; supple, normal thyroid, RESPIRATORY: Diminished to auscultation CARDIOVASCULAR: Regular S1 S2, GI: soft, normoactive bowel sounds, : No Renal angle tenderness; EXTREMITIES: Trace bipedal edema, no clubbing, MUSCULOSKELETAL: no muscle wasting NEURO: Awake, no lateralizing signs SKIN: No Rash PSYCH; cheerful Weight / BMI Weight Weight: 117 kg Body Mass Index (BMI) 41.6 ABG / Lab / Microbiology Data 04/25/25 05:30 04/25/25 05:30 Laboratory: Laboratory Results - last 24 hr 04/25/25 05:30: WBC 4.9, RBC 3.08 L, Hgb 9.9 L, Hct 30.9 L, MCV 100.3 H, MCH 32.1 H, MCHC 32.0, RDW Std Deviation 53.9 H, RDW Coeff of Alverto 15.0 H, Plt Count 196, MPV 10.4, Immature Gran % (Auto) 1.200 H, Neut % (Auto) 86.2 H, Lymph % (Auto) 8.1 L, Hall % (Auto) 4.5, Eos % (Auto) 0.0, Baso % (Auto) 0.0, Absolute Neuts (auto) 4.2, Absolute Lymphs (auto) 0.40 L, Nucleated RBC % 0, Sodium 142, Potassium 4.0, Chloride 101, Carbon Dioxide 29.4, Anion Gap 12, BUN 57 H, C reatinine 1.96 H, Estim Creat Clear Calc 32.75 L, Est GFR (MDRD) Non-Af 26 L, B UN/Creatinine Ratio 28.9 H, Glucose 119 H, Calcium 8.7 Microbiology: Microbiology 04/23/25 14:02 Mucosa - Nasopharyngeal Respiratory Panel (PCR) - Final 04/23/25 14:03 Mucosa - Nose Coronavirus COVID-19 PCR - Final Radiography Diagnostic Testing: Radiology Impression Chest X-Ray 04/25/25 04:50 IMPRESSION: Cardiomegaly. Small right pleural effusion with mild pulmonary venous congestion. No change since previous exams. Reading Location: [facility] D/C Instructions DC O2, CPAP, BIPAP Needs Home O2 Discharge instructions: Yes Type of respiratory needs?: Oxygen Oxygen frequency: Continuous Continuous oxygen liters per minute: 2 DC home with Oxygen: Yes Home O2 MD Review: I have reviewed the oxygen testing, and the patient qualifies for home oxygen equipment and portability. The patient is mobile in the home and the community. Meaningful Use Info Meaningful Use Meaningful Use Diagnoses (Choose all that apply): CHF CHF NEGAR/ARB ordered at discharge?: No Reason NEGAR/ARB not ordered?: Not indicated Documented LVEF (%): 65 Discharge Plan Admission Admit Date/Time: 04/23/25 11:58 Attending Provider: Con Metzger Primary Care Provider: Matthew Valdivia Consulting Providers: Aris Childs Discharge Orders/Prescriptions Prescriptions: New spironolactone [Aldactone] 25 mg tablet 25 mg PO DAILY Qty: 30 0RF prednisone 20 mg tablet 20 mg PO BID 7 Days Qty: 14 0RF guaifenesin [Mucinex] 600 mg tablet extended release 12hr 1,200 mg PO BID 10 Days Qty: 40 0RF Continued gemfibrozil 600 MG tablet 600 mg PO BID albuterol sulfate 90 mcg/actuation HFA aerosol inhaler 2 puff inhalation Q6H PRN PRN (Reason: wheezing) budesonide-formoterol [Breyna] 80-4.5 mcg/actuation HFA aerosol inhaler 2 puff inhalation Q12H gabapentin 300 mg capsule 300 mg PO Q12H sennosides-docusate sodium [Senna with Docusate Sodium] 8.6-50 mg tablet 2 tab-cap PO BID PRN (Reason: constipation) furosemide 40 mg Tablet 40 mg PO DAILY Qty: 30 2RF loperamide [Anti-Diarrheal (loperamide)] 2 mg tablet 2 mg PO Q6H PRN (Reason: loose stool) magnesium hydroxide [Gentle Laxative (mag hydrox)] 400 mg/5 mL suspension 30 ml PO PRN acetaminophen 325 mg capsule 325 mg PO Q4H PRN (Reason: fever or pain) metoprolol tartrate 25 mg Tablet 25 mg PO BID (DME) OXYGEN - Supplemental ([facility] INFORMATIONAL USE ONLY) 0 .ROUTE .MEDSUPPLY Patient Comments: 2lpm O2 @HS Eliquis 5 mg tablet 5 mg PO BID Referrals / Follow Up: Matthew Valdivia DO [Primary Care Provider, Family Practice] - Within 2 Weeks Disposition Disposition (needs filled in before D/C Order can be placed): Home Health Service Charges/Coding Visit Charges Inpatient E&M: 73727 Disch Hosp >30min
--- NOTE | 2025-04-25 11:40 | CASEMGMT ---
Discharge Planning Discharge instructions faxed to [place] with transport time. Fax confirmation rec'd. Nursing, SW, patient, and her niece (Dena) updated. Yohana Alvares DC Planning Asst.
--- NOTE | 2025-04-25 14:20 | NURSING ---
Called in report to Zoya ZAMBRANO from Tim CAMARGO at 14:20.
== END 2025-04-25 13:31 | disposition home or self-care (01) | DRG 291 ==
LOC: ED 12:02 → PCU 12:16
PROVIDERS: Admitting Provider Internal Medicine; Emergency Provider Emergency Medicine; PCP Family Medicine; Visit Provider Internal Medicine
DX: I13.0 Hypertensive heart and chronic kidney disease with heart failure and stage 1 through stage 4 chronic kidney disease, or unspecified chronic kidney disease (principal); J96.22 Acute and chronic respiratory failure with hypercapnia; G93.41 Metabolic encephalopathy; J96.21 Acute and chronic respiratory failure with hypoxia; I50.33 Acute on chronic diastolic (congestive) heart failure; E66.2 Morbid (severe) obesity with alveolar hypoventilation; Z68.41 Body mass index [BMI] 40.0-44.9, adult; Z66 Do not resuscitate; J44.9 Chronic obstructive pulmonary disease, unspecified; N18.32 Chronic kidney disease, stage 3b; D63.1 Anemia in chronic kidney disease; I48.0 Paroxysmal atrial fibrillation; E78.5 Hyperlipidemia, unspecified; Z79.01 Long term (current) use of anticoagulants; Z86.711 Personal history of pulmonary embolism; Z87.891 Personal history of nicotine dependence; E66.813 Obesity, class 3; Z79.899 Other long term (current) drug therapy; Z86.73 Personal history of transient ischemic attack (TIA), and cerebral infarction without residual deficits; Z79.51 Long term (current) use of inhaled steroids
CPT/HCPCS: 36415; 36600; 71045; 80048; 82803; 83735; 83880; 84100; 84484; 85025; 87633; 87635; 93005; 94002; 94640; 97163; 97167; 97803; 99252; 99285; A4216; G0463; J1938

== ENCOUNTER 2025-05-06 02:30 | Emergency (ER) | payer MEDICARE, OTHER, SELFPAY ==
[2025-05-06 02:33] VITALS: BP 121/46; PULSE 60; RESP 18; TEMP 37; O2SAT 95; BMI 18.1
--- OUTSIDE RECORDS SUMMARY | 2025-05-06 03:27 | XMS RPT_ITS | CCD ---
Author Organization [facility] Care Team Providers Care Nursing Professor Name Role Phone Dr. Zee Jose Primary [...] Provider Manish ROMERO, Dr. Alegria Other Provider [phone] Juvenal ROMERO, Dr. Collazo Other Provider [phone] Efrem ROMERO, Dr. Schneider Other Provider Jonathan ROMERO, Dr. Belle Other Provider Unavailabl jg Lisa MD, Dr. Rae Other Provider Reece ROMERO, Dr. Li Other Provider Sindy ROMERO, Dr. Espitia Other Provider [phone] Kiersten ROMERO, Dr. Tomlinson Other Provider Dr. Farhan Benavidez DO Other Provider Dr. Cordell Dia MD Other Provider Sandra ROMERO, Dr. Marquez Other Provider Dr. Marvin Jameson DO Other Provider Baron ROMERO, Dr. Wadsworth Other Provider [phone] Tal ROMERO, Dr. Castro Other Provider Yehuda Snider Attending Unavailable Allie Coreas Referring Unavailable Zee Jose Primary Care Unavailable Con Metzger Attending Unavailable Con Metzger Consulting Unavailable Con Metzger Admitting Unavailable Zee Jose Primary Care Unavailable Allie Coreas Attending Unavailable [facility] Primary Care Unavailable [facility] Referring Unavailable Josafat Orr Consulting Unavailable Koram, Laura Preeti Admitting Unavailable Koram, Laura Preeti Attending Unavailable [facility] Primary Care Unavailable Jennifer, Carlos Consulting [...] Consulting Unavailable Kiersten, Davi Consulting Unavailable Dhesi, Farhna Consulting Unavailable Cordell Dia Consulting Unavailable Pearl, Solemanishah Consulting Unavailable Fernstrom, Marvin Consulting Unavailable Baron, Ananth Consulting Unavailable Matthew Parada Consulting Unavailable Koram, Luara Preeti Consulting Unavailable Zhane Stone Consulting Unavailable [facility] Primary Care Unavailable Koram, Laura Preeti Attending Unavailable Zhane Stone Admitting Unavailable Koram, Laura Preeti Consulting Unavailable Teja Zeng Attending Unavailable Teja Zeng Consulting Unavailable Josafat Orr Consulting Unavailable Koram, Laura Preeti Admitting Unavailable Koram, Laura Preeti Attending Unavailable [facility] Care Unavailable Jennifer, Carlos Consulting Unavailable Rupert [...] Farhan Consulting Unavailable Dia, Cordell Consulting Unavailable Pearl, Soleyah Consulting Unavailable Fernstrom, Marvin Consulting Unavailable [...] Drug Class(es) Dates Sig (Normalized) Sig (Original) [id number] 200 actuat albuterol 0.09 mg/actuat metered dose [...] take 2 puff(s) by inhalation twice daily tpjqyhlllc-muoodpuo-sklwpirdlg (BREZTRI AEROSPHERE) 160-9-4.8 mcg/actuation HFA aerosol inhaler Inhale 2 puffs as instructed two times a day. 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] 01-05-2025 Episodic Other [...] CNOV Office Visit (SLEWST ) DESIRE CHAUDHRY ([id number]) 1950 F Date Time Provider Department 03/19/25 8:00 AM JACQUELYN CASTILLO During your visit today, we recorded the following information about you: Pulse Respiration Blood pressure 61/minute 16/minute 138/92 Jacquelyn Castillo APRN.CNP 03/23/2025 5:15 PM Signed [facility] New Patient Evaluation PATIENT NAME: Desire Chaudhry DATE OF SERVICE: March 18, 2025 Recording using [employer] software for draft documentation of the visit was discussed with the patient/authorized customer development representative; all questions welcomed and answered. Patient/authorized customer development representative agreed to proceed CONSULTING PROVIDER: Katharine Akhtar ([facility]) [address] [facility] [address] REASON FOR CONSULT: Katharine Akhtar sends the [...] BiPAP titration. She is accompanied by a marketing clerk who provides additional history. The patient was [...] day. sulfamethoxazole (more content not included)... [facility] DESIRE CHAUDHR[facility] ([id number]) 1950 F Date Time Provider Department 01/17/25 [...] Fully Assessed Reason for Visit: Insurance Authorization [[id number]] Order(s):fluticasone-um eclidin-vilanter (TRELEGY ELLIPTA) 100-62.5-25 mcg inhalation powderInhale 1 puff as instructed once daily.Disp: 1 eachRfl: 5 Prescriptions as of 01/17/2025 - cfjwzfaztvh-gvgsswmqt-e ilanter (TRELEGY ELLIPTA) 100-62.5-25 mcg inhalation powder [...] 1 tablet by mouth once daily. - ksoblfbwxy-hlhylrwb-wkv moterol (BREZTRI AEROSPHERE) 160-9-4.8 mcg/actuation HFA aerosol [...] Status:Closed by KATHARINE AKHTAR on 01/17/25 Normal [facility] CNOVon 01-16-2025 CNOV Office Visit (PULMWS ) DESIRE CHAUDHRY ([id number]) 1950 F Date Time Provider Department 01/16/25 1:30 PM KATHARINE AKHTAR PULMWS During your visit today, we recorded the following information about you: Pulse Blood pressure Weight Height 84/minute 99/58 116.1 kg 1.676 m Katharine Akhtar MD 01/16/2025 4:32 PM Signed . Respiratory [place] Note Patient name: Desire Chaudhry PCP: Zee Jose DO Referring Physician: same Recording using [employer] software for draft documentation of the visit was discussed with the patient/authorized customer development representative; all questions welcomed and answered. Patient/authorized customer development representative agreed to proceed Consultation requested by Dr. Jose for an opinion regarding COPD. My final recommendations will be communicated back to the requesting physician by way of shared Medical record or letter to requesting physician via US mail. CC: COPD HPI: Desire Chaudhry 74 year old female recently admitted to [facility] with acute on chronic hypoxemic and hypercapnic [...] CAP Take two capsules three times daily oupkgjxjpd-jhtkatpw-qqh moterol (BREZTRI AEROSPHERE) 160-9-4.8 mcg/actuation HFA aerosol inhaler Inhale 2 puffs as instructed two times a day. SOCIAL HISTORY[1] Retired from [employer] years Pets: None FAMILY HISTORY Problem Relation Age of Onset Coronary Artery Disease Mother Coronary Artery Disease Father other (Black lung) Father Diabetes Sister Diabetes Brother PAST SURGICAL HISTORY Procedure Laterality Date BACK SURGERY HX x 7 COLONOSCOPY FLX DX W/COLLJ SPEC WHEN PFRMD 06/06/2007 Colonoscopy DECOMPRESSION THORACIC SEGMENT TRANSPED PAST SURGICAL HISTORY OF hysterectomy (more content not included)... Normal [facility] LUNG DIFFUSION CAPACITY (SANDY O)on 01-16-2025 LUNG DIFFUSION CAPACITY (DLCO) [facility] [address] [place] [address] Test Date: 2025-01-16 Pat Name: DESIRE CHAUDHRY Department: Room: Gender: Female Can Sterilizer: : 1950 Requested By: Order Number: [id number] Reading MD: Katharine Akhtar MD Interpretive Statements [...] 16:56:46 EDT by Katharine Akhtar MD ID: [id number] Name: DESIRE CHAUDHRY Race: White Ht: 66.00 [...] 90-100 0.29 43 FIVC 1.90 1.80 -5 IBG84-15 0.28 0.80 1.81 3.27 15 -3.03 0.47 [...] DLCO met with 2 acceptable maneuvers. Normal [facility] No Panel Informationon 01-16 DLCO (ml/min/mmHg) 13.18 ml/min/mmHg [facility] DLCO LLN (ml/min/mmHg) 14.68 ml/min/mmHg [facility] DLCO PREDICTED (ml/min/mmHg) 19.65 ml/min/mmHg [facility] DLCO ULN (ml/min/mmHg) 25.80 ml/min/mmHg [facility] DLCO/VA (ml/min/mmHg/L) 0.04 ml/m in/mmHg /L [facility] DLCO/VA PREDICTED (ml/min/mmHg/L) 0.04 ml/min/mmHg /L [facility] DLCO/VAcor (ml/min/mmHg/L) 0.04 ml/min/mmHg /L [facility] DLCOcor (ml/min/mmHg) 12.94 ml/min/mmHg Cl [facility] DLCOcor PREDICTED (ml/min/mmHg) 19.65 ml/min/mmHg [facility] ERV PREDICTED (L) 0.96 L/S [facility] FEF25% POST (L/S) 2.63 L/S [facility] FEF25% PRE (L/S) 1.62 L/S [facility] BCB86-19% LLN (L/S) 0.80 L/S [facility] FFS18-49% POST (L/S) 0.47 L/S [facility] OUR99-35% PRE (L/S) 0.28 L/S [facility] PIN85-03% PREDICTED (L/S) 1.81 L/S [facility] FEF75% LLN (L/S) 0.15 L/S [facility] FEF75% POST (L/S) 0.18 L/S [facility] FEF75% PRE (L/S0 0.09 L/S [facility] FEF75% PREDICTED (L/S) 0.43 L/S [facility] FEF75% ULN (L/S) 1.19 L/S [facility] FET POST (S) 8.28 S [facility] FET PRE (S) 10.90 S [facility] FEV1 LLN (L) 1.53 L [facility] FEV1 PRE (L) 1.05 L [facility] FEV1 PREDICTED (L) 2.21 L [facility] FEV1 ULN (L) 2.86 L [facility] FEV1/FVC LLN (%) 65 % [facility] FEV1/FVC POST (%) 60 % [facility] FEV1/FVC PRE (%) 55 % [facility] FEV1/FVC PREDICTED (%) 78 % [facility] FEV1_POST (L) 1.15 L [facility] FVC LLN (L) 2.02 L [facility] FVC POST (L) 1.91 L [facility] FVC PRE (L) 1.91 L [facility] FVC PREDICTED (L) 2.[address] [facility] FVC ULN (L) 3.78 L [facility] IC PREDICTED (L) 1.93 L/S [facility] PEF LLN (L/S) 3.81 L/S [facility] PEF POST (L/S) 3.86 L/S [facility] PEF PRE (L/S) 3.54 L/S [facility] PEF ULN (L/S) 7.45 L/S [facility] SVC LLN (L) 2.02 L/S [facility] SVC PREDICTED (L) 2.89 L/S [facility] SVC ULN (L) 3.78 L/S [facility] VA (L) 3.32 L [facility] VA PREDICTED (L) 4.[address] [facility] [address] [place] [address] Test Date: 2025-01-16 Pat Name: DESIRE CHAUDHRY Department: Room: Gender: Female Can Sterilizer: : 1950 Requested By: Order Number: [id number] Reading MD: Katharine Akhtar MD Interpretive Statements [...] 16:56:46 EDT by Katharine Akhtar MD ID: [id number] Name: DESIRE CHAUDHRY Race: White Ht: 66.00 [...] 90-100 0.29 43 FIVC 1.90 1.80 -5 IRW35-52 0.28 0.80 1.81 3.27 15 -3.03 0.47 [...] with 2 acceptable maneuvers. PULMONARY FUNCTION LAB [facility] SPIROMETRY WITH DILATOR IF O BSTRUCTEDon 01-16-2025 SPIROMETRY WITH DILATOR IF OBSTRUCTED [facility] [place] [address] [place] [address] Test Date: 2025-01-16 Pat Name: DESIRE CHAUDHRY Department: Room: Gender: Female Can Sterilizer: : 1950 Requested By: Order Number: [id number] Reading MD: Katharine Akhtar MD Interpretive Statements [...] 16:56:46 EDT by Katharine Akhtar MD ID: [id number] Name: DESIRE CHAUDHRY Race: White Ht: 66.00 [...] 90-100 0.29 43 FIVC 1.90 1.80 -5 KOJ59-36 0.28 0.80 1.81 3.27 15 -3.03 0.47 [...] 78 % FEV1/FVC_LLN (%) : 65 % WTY63_LSF (L/S) : 1.62 L/S DPJ16_DXKW (L/S) : 2.63 L/S QUV68_LQT (L/S) : 0.09 L/S RSW00_KQQK (L/S) : 0.18 L/S ZIB78_ZQSN (L/S) : 0.43 L/S HBZ02_GOI (L/S) : 0.15 L/S OFQ94_PLL (L/S) : 1.19 L/S XJJ53-98%_PRE (L/S) : 0.28 L/S CKN40-21%_POST (L/S) : 0.47 L/S LAQ53-33%_PRED (L/S) : 1.81 L/S GLE62-91%_LLN (L/S) : 0.80 L/S PEF_PRE (L/S) : [...] ml/min/mmHg DLCO/VACOR (ML/MIN/MMHG/L) : 0.04 ml/min/mmHg/L Normal [facility] Basic Metabolic Profile (BMP )on 01-10-2025 BUN Normal 09-16 [facility] Comment on above: Result Comment: Canc elled via OM: Order cancelled - Patient discharged Performed By: #### L 500.2500, L100.0100 ####[facility] [address] [place], [address] BUN/CRE Normal - [facility] Comment on above: Result Comment: Canc elled via OM: Order cancelled - Patient discharged Performed By: #### L 500.2500, L100.0100 ####[facility] [address] [place], [address] Calcium Normal 7.6-11.0 [facility] Comment on above: Result Comment: Canc elled via OM: Order cancelled - Patient discharged Performed By: #### L 500.2500, L100.0100 ####[facility] [address] [place], [address] CL Normal 98-108 [facility] Comment on above: Result Comment: Canc elled via OM: Order cancelled - Patient discharged Performed By: #### L 500.2500, L100.0100 ####[facility] [address] [place], [address] CO2 Normal 21.0-32.0 [facility] Comment on above: Result Comment: Canc elled via OM: Order cancelled - Patient discharged Performed By: #### L 500.2500, L100.0100 ####[facility] [address] [place], [address] CREAT,SERUM Normal 0.70-1.20 [facility] Comment on above: Result Comment: Canc elled via OM: Order cancelled - Patient discharged Performed By: #### L 500.2500, L100.0100 ####[facility] [address] [place], [address] eGFR Normal >60 [facility] Comment on above: Result Comment: Canc elled via OM: Order cancelled - Patient discharged Performed By: #### L 500.2500, L100.0100 ####[facility] [address] [place], [address] GAP Normal 5-15 [facility] Comment on above: Result Comment: Canc elled via OM: Order cancelled - Patient discharged Performed By: #### L 500.2500, L100.0100 ####[facility] [address] [place], [address] GLU Normal 70-99 [facility] Comment on above: Result Comment: Canc elled via OM: Order cancelled - Patient discharged Performed By: #### L 500.2500, L100.0100 ####[facility] [address] [place], [address] Potassium Normal 3.3-5.1 [facility] Comment on above: Result Comment: Canc elled via OM: Order cancelled - Patient discharged Performed By: #### L 500.2500, L100.0100 ####[facility] [address] [place], [address] Basic Metabolic Profile (BMP) Normal 133-145 [facility] Comment on above: Result Comment: Canc elled via OM: Order cancelled - Patient discharged Performed By: #### L 500.2500, L100.0100 ####[facility] [address] [place], [address] CBC W/Diff, Automatedon 08- Absolute Neut Normal 2.0-7.7 [facility] Comment on above: Result Comment: Canc elled via OM: Order cancelled - Patient discharged Performed By: #### L 500.2500, L100.0100 ####[facility] [address] [place], [address] HCT Normal 37-47 [facility] Comment on above: Result Comment: Canc elled via OM: Order cancelled - Patient discharged Performed By: #### L 500.2500, L100.0100 ####[facility] [address] [place], [address] HGB Normal 12.0-15.0 [facility] Comment on above: Result Comment: Canc elled via OM: Order cancelled - Patient discharged Performed By: #### L 500.2500, L100.0100 ####[facility] [address] [place], [address] MCH Normal 27.0-32.0 [facility] Comment on above: Result Comment: Canc elled via OM: Order cancelled - Patient discharged Performed By: #### L 500.2500, L100.0100 ####[facility] [address] [place], [address] MCHC Normal 32-36 [facility] Comment on above: Result Comment: Canc elled via OM: Order cancelled - Patient discharged Performed By: #### L 500.2500, L100.0100 ####[facility] [address] [place], [address] MCV Normal 81-99 [facility] Comment on above: Result Comment: Canc elled via OM: Order cancelled - Patient discharged Performed By: #### L 500.2500, L100.0100 ####[facility] [address] [place], [address] NEUT% Normal 47-70 [facility] Comment on above: Result Comment: Canc elled via OM: Order cancelled - Patient discharged Performed By: #### L 500.2500, L100.0100 ####[facility] [address] [place], [address] PLT Normal 150-450 [facility] Comment on above: Result Comment: Canc elled via OM: Order cancelled - Patient discharged Performed By: #### L 500.2500, L100.0100 ####[facility] [address] [place], [address] RBC Normal 4.2-5.4 [facility] Comment on above: Result Comment: Canc elled via OM: Order cancelled - Patient discharged Performed By: #### L 500.2500, L100.0100 ####[facility] [address] [place], [address] RDW CV Normal 11.6-14.6 [facility] Comment on above: Result Comment: Canc elled via OM: Order cancelled - Patient discharged Performed By: #### L 500.2500, L100.0100 ####[facility] [address] [place], [address] RDW SD Normal 35.1-43.9 [facility] Comment on above: Result Comment: Canc elled via OM: Order cancelled - Patient discharged Performed By: #### L 500.2500, L100.0100 ####[facility] [address] [place], [address] WBC Normal 4.4-11.0 [facility] Comment on above: Result Comment: Canc elled via OM: Order cancelled - Patient discharged Performed By: #### L 500.2500, L100.0100 ####[facility] [address] [place], [address] Basic Metabolic Profile (BMP )on 01-09-2025 BUN Normal 4-19 [facility] Comment on above: Result Comment: Canc elled via OM: Order cancelled - Patient discharged Performed By: #### L 500.2500, L100.0100 ####[facility] [address] [place], [address] BUN/CRE Normal 10-20 [facility] Comment on above: Result Comment: Canc elled via OM: Order cancelled - Patient discharged Performed By: #### L 500.2500, L100.0100 ####[facility] [address] [place], [address] Calcium Normal 7.6-11.0 [facility] Comment on above: Result Comment: Canc elled via OM: Order cancelled - Patient discharged Performed By: #### L 500.2500, L100.0100 ####[facility] [address] [place], [address] CL Normal 98-108 [facility] Comment on above: Result Comment: Canc elled via OM: Order cancelled - Patient discharged Performed By: #### L 500.2500, L100.0100 ####[facility] [address] [place], [address] CO2 Normal 21.0-32.0 [facility] Comment on above: Result Comment: Canc elled via OM: Order cancelled - Patient discharged Performed By: #### L 500.2500, L100.0100 ####[facility] [address] [place], [address] CREAT,SERUM Normal 0.70-1.20 [facility] Comment on above: Result Comment: Canc elled via OM: Order cancelled - Patient discharged Performed By: #### L 500.2500, L100.0100 ####[facility] [address] [place], [address] eGFR Normal >60 [facility] Comment on above: Result Comment: Canc elled via OM: Order cancelled - Patient discharged Performed By: #### L 500.2500, L100.0100 ####[facility] [address] [place], [address] GAP Normal 5-15 [facility] Comment on above: Result Comment: Canc elled via OM: Order cancelled - Patient discharged Performed By: #### L 500.2500, L100.0100 ####[facility] [address] [place], [address] GLU Normal 70-99 [facility] Comment on above: Result Comment: Canc elled via OM: Order cancelled - Patient discharged Performed By: #### L 500.2500, L100.0100 ####[facility] [address] [place], [address] Potassium Normal 3.3-5.1 [facility] Comment on above: Result Comment: Canc elled via OM: Order cancelled - Patient discharged Performed By: #### L 500.2500, L100.0100 ####[facility] [address] [place], [address] Basic Metabolic Profile (BMP) Normal 133-145 [facility] Comment on above: Result Comment: Canc elled via OM: Order cancelled - Patient discharged Performed By: #### L 500.2500, L100.0100 ####[facility] [address] [place], [address] CBC W/Diff, Automatedon - Absolute Neut Normal 2.0-7.7 [facility] Comment on above: Result Comment: Canc elled via OM: Order cancelled - Patient discharged Performed By: #### L 500.2500, L100.0100 ####[facility] [address] [place], [address] HCT Normal 37-47 [facility] Comment on above: Result Comment: Canc elled via OM: Order cancelled - Patient discharged Performed By: #### L 500.2500, L100.0100 ####[facility] [address] [place], [address] HGB Normal 12.0-15.0 [facility] Comment on above: Result Comment: Canc elled via OM: Order cancelled - Patient discharged Performed By: #### L 500.2500, L100.0100 ####[facility] [address] [place], [address] MCH Normal 27.0-32.0 [facility] Comment on above: Result Comment: Canc elled via OM: Order cancelled - Patient discharged Performed By: #### L 500.2500, L100.0100 ####[facility] [address] [place], [address] MCHC Normal 32-36 [facility] Comment on above: Result Comment: Canc elled via OM: Order cancelled - Patient discharged Performed By: #### L 500.2500, L100.0100 ####[facility] [address] [place], [address] MCV Normal 81-99 [facility] Comment on above: Result Comment: Canc elled via OM: Order cancelled - Patient discharged Performed By: #### L 500.2500, L100.0100 ####[facility] [address] [place], [address] NEUT% Normal 47-70 [facility] Comment on above: Result Comment: Canc elled via OM: Order cancelled - Patient discharged Performed By: #### L 500.2500, L100.0100 ####[facility] [address] [place], [address] PLT Normal 150-450 [facility] Comment on above: Result Comment: Canc elled via OM: Order cancelled - Patient discharged Performed By: #### L 500.2500, L100.0100 ####[facility] [address] [place], [address] RBC Normal 4.2-5.4 [facility] Comment on above: Result Comment: Canc elled via OM: Order cancelled - Patient discharged Performed By: #### L 500.2500, L100.0100 ####[facility] [address] [place], [address] RDW CV Normal 11.6-14.6 [facility] Comment on above: Result Comment: Canc elled via OM: Order cancelled - Patient discharged Performed By: #### L 500.2500, L100.0100 ####[facility] [address] [place], [address] RDW SD Normal 35.1-43.9 [facility] Comment on above: Result Comment: Canc elled via OM: Order cancelled - Patient discharged Performed By: #### L 500.2500, L100.0100 ####[facility] [address] [place], [address] WBC Normal 4.4-11.0 [facility] Comment on above: Result Comment: Canc elled via OM: Order cancelled - Patient discharged Performed By: #### L 500.2500, L100.0100 ####[facility] [address] [place], [address] Absolute lymphocyte countOrd ered By: Laura Sol on 01-08-2025 Lymphocytes Auto (Unsp spec) [#/Vol] 0.37 10*3/uL Low 0.83-4.51 [facility] Absolute neutrophil countOrd ered By: Laurameka Sol on 01-08-2025 Neutrophils (Bld) [#/Vol] 4.8 10*3/uL 2.0-7.7 [facility] Anion gap in Serum or Plasma Ordered By: Laura Sol on 01-08-2025 Anion gap [Moles/Vol] 15 mmol/L 5-15 [facility] Automated lymphocyte count a s percentage of total leukocytesOrdered By: Laura Sol on 01-08-2025 Lymphocytes/100 WBC Auto (Unsp spec) 6.7 % Low 19-41 [facility] BUN/creatinine ratioOrdered By: Laura Sol on 01-08-2025 Urea nitrogen/Creatinine [Mass ratio] 29.1 mg/mg High 10-20 [facility] Basic Metabolic Profile (BMP )on 01-08-2025 BUN/CRE 29.1 RATIO High 10-20 [facility] Comment on above: Performed By: #### L 500.2500, L100.0100 ####[facility] [address] [place], [address] Calcium [Mass/Vol] 8.4 mg/dL Normal 7.6-11.0 [facility] Comment on above: Performed By: #### L 500.2500, L100.0100 ####[facility] [address] [place], [address] Chloride [Moles/Vol] 94 mmol/L Low 98-108 [facility] Comment on above: Performed By: #### L 500.2500, L100.0100 ####[facility] [address] [place], [address] CO2 [Moles/Vol] 31.3 mmol/L Normal 21.0-32.0 [facility] Comment on above: Performed By: #### L 500.2500, L100.0100 ####[facility] [address] [place], [address] Creatinine [Mass/Vol] 2.19 mg/dL High 0.70-1.20 [facility] Comment on above: Performed By: #### L 500.2500, L100.0100 ####[facility] [address] [place], [address] ECRCL 29.86 ml/min Low 50-250 [facility] Comment on above: Performed By: #### L 500.2500, L100.0100 ####[facility] [address] [place], [address] GAP 15 Normal 5-15 [facility] Comment on above: Performed By: #### L 500.2500, L100.0100 ####[facility] [address] [place], [address] GFR/1.73 sq M.predicted among non-blacks MDRD (S/P/Bld) [Vol rate/Area] 23 mL/min/{1.73_m2} Low >60 [facility] Comment on above: Result Comment: mL/m in/1.73m2 CKD-EPI Creatinine Equation (2020) Performed By: #### L 500.2500, L100.0100 ####[facility] [address] [place], [address] Glucose [Mass/Vol] 125 mg/dL High 70-99 [facility] Comment on above: Performed By: #### L 500.2500, L100.0100 ####[facility] [address] [place], [address] Potassium [Moles/Vol] 4.1 mmol/L Normal 3.3-5.1 [facility] Comment on above: Performed By: #### L 500.2500, L100.0100 ####[facility] [address] [place], [address] Sodium [Moles/Vol] 140 mmol/L Normal 133-145 [facility] Comment on above: Performed By: #### L 500.2500, L100.0100 ####[facility] [address] [place], [address] Urea nitrogen [Mass/Vol] 64 mg/dL High 4-19 [facility] Comment on above: Performed By: #### L 500.2500, L100.0100 ####[facility] [address] [place], [address] Basophil percentageOrdered B y: Laura Sol on 01-08-2025 Basophils/100 WBC (Bld) 0.2 % 0-1 [facility] CBC W/Diff, Automatedon 12-29 Absolute Lymph 0.37 X10 3/uL Low 0.83-4.51 [facility] Comment on above: Performed By: #### L 500.2500, L100.0100 ####[facility] [address] [place], [address] Absolute Neut 4.8 X10 3/uL Normal 2.0-7.7 [facility] Comment on above: Performed By: #### L 500.2500, L100.0100 ####[facility] [address] [place], [address] Basophils/100 WBC (Bld) 0.2 % Normal 0-1 [facility] Comment on above: Performed By: #### L 500.2500, L100.0100 ####[facility] [address] [place], [address] Eosinophils/100 WBC (Bld) 0.0 % Normal 0-5 [facility] Comment on above: Performed By: #### L 500.2500, L100.0100 ####[facility] [address] [place], [address] Erythrocyte distribution width (RBC) [Ratio] 13.7 % Normal 11.6-14.6 [facility] Comment on above: Performed By: #### L 500.2500, L100.0100 ####[facility] [address] [place], [address] Hematocrit (Bld) [Volume fraction] 33.1 % Low 37-47 [facility] Comment on above: Performed By: #### L 500.2500, L100.0100 ####[facility] [address] [place], [address] Hemoglobin (Bld) [Mass/Vol] 10.1 g/dL Low 12.0-15.0 [facility] Comment on above: Performed By: #### L 500.2500, L100.0100 ####[facility] [address] [place], [address] IG% 0.900 Normal 0.0-0.9 [facility] Comment on above: Result Comment: IG% - Immature Granulocytes (promyelocytes, myelocytes andmetamyelocytes) > 1% indicates that a LEFT SHIFT is Present. Performed By: #### L 500.2500, L100.0100 ####[facility] [address] [place], [address] Lymphocytes/100 WBC (Bld) 6.7 % Low 19-41 [facility] Comment on above: Performed By: #### L 500.2500, L100.0100 ####[facility] [address] [place], [address] MCH (RBC) [Entitic mass] 31.7 pg Normal 27.0-32.0 [facility] Comment on above: Performed By: #### L 500.2500, L100.0100 ####[facility] [address] [place], [address] MCHC (RBC) [Mass/Vol] 30.5 g/dL Low 32-36 [facility] Comment on above: Performed By: #### L 500.2500, L100.0100 ####[facility] [address] [place], [address] MCV (RBC) [Entitic vol] 103.8 fL High 81-99 [facility] Comment on above: Performed By: #### L 500.2500, L100.0100 ####[facility] [address] [place], [address] Monocytes/100 WBC (Bld) 4.7 % Normal 0-10 [facility] Comment on above: Performed By: #### L 500.2500, L100.0100 ####[facility] [address] [place], [address] Neutrophils/100 WBC (Bld) 87.5 % High 47-70 [facility] Comment on above: Performed By: #### L 500.2500, L100.0100 ####[facility] [address] [place], [address] Nucleated RBC (Bld) [#/Vol] 0 10*3/uL Normal 0-5 [facility] Comment on above: Performed By: #### L 500.2500, L100.0100 ####[facility] [address] [place], [address] Platelet mean volume (Bld) [Entitic vol] 10.5 fL Normal 6.2-12.0 [facility] Comment on above: Performed By: #### L 500.2500, L100.0100 ####[facility] [address] [place], [address] Platelets (Bld) [#/Vol] 178 10*3/uL Normal 150-450 [facility] Comment on above: Performed By: #### L 500.2500, L100.0100 ####[facility] [address] [place], [address] RBC (Bld) [#/Vol] 3.19 10*6/uL Low 4.2-5.4 [facility] Comment on above: Performed By: #### L 500.2500, L100.0100 ####[facility] [address] [place], [address] RDW SD 52.0 fl High 35.1-43.9 [facility] Comment on above: Performed By: #### L 500.2500, L100.0100 ####[facility] [address] [place], [address] WBC (Bld) [#/Vol] 5.5 10*3/uL Normal 4.4-11.0 [facility] Comment on above: Performed By: #### L 500.2500, L100.0100 ####[facility] [address] [place], [address] Carbon dioxide, total [Moles /volume] in Central venous bloodOrdered By: Laura Sol on 01-08-2025 CO2 [Moles/Vol] 31.3 mmol/L 21.0-32.0 [facility] Chloride assayOrdered By: Erik Sol on 01-08-2025 Chloride [Moles/Vol] 94 mmol/L Low 98-108 [facility] Discharge Instructionon 12-29 Discharge Instruction Normal [facility] Electrocardiogram reportOrde red By: Aris Childs on 01-08-2025 EKG study [facility] [address] [place] [address] 12 Lead EKG 01/05/25 1015 MR#: [id number] Acct: [id number] Name: DESIRE CHAUDHRY Rep #:[id number] : 1950 74 From: Aris Childs MD [...] Abnormal ECG Confirmed by URIEL ROMERO, ARIS ([id number]), department editor CRISTINA ROCK ([id number]) on 01/08/2025 1:03:40 PM Referred By: RODRIGO Confirmed By: ARIS CHILDS MD 01/08/25 1303 Date _ Aris Childs MD CC: Dr. Daisy Rivera MD; Dr. Zee Jose DO; Dr. Laura Sol MD ~ Signed [facility] Other Phone: EKG study [facility] [address] [place] [address] 12 Lead EKG 01/06/25 2305 MR#: [id number] Acct: [id number] Name: DESIRE CHAUDHRY Rep #:[id number] : 1950 74 From: Aris Childs MD [...] IS UNCONFIRMED Confirmed by ARIS CHILDS MD ([id number]), department editor CRISTINA ROCK ([id number]) on 01/08/2025 1:02:22 PM Referred By: Confirmed By: ARIS CHILDS MD 01/08/25 1302 Date _ Aris Childs MD CC: Dr. Lobito Benson MD; Dr. Zee Jose DO; Dr. Laura Sol MD ~ Signed [facility] Other Phone: Eosinophil percentageOrdered By: Laura Sol on 01-08-2025 Eosinophils/100 WBC (Bld) 0.0 % 0-5 [facility] Erythrocyte distribution wid th ratioOrdered By: Laura Sol on 01-08-2025 Erythrocyte distribution width (RBC) [Ratio] 13.7 % 11.6-14.6 [facility] Erythrocyte distribution wid th standard deviationOrdered By: Laura Sol on 01-08-2025 Erythrocyte distribution width (RBC) [Ratio] 52.0 fl High 35.1-43.9 [facility] Glomerular filtration rate ( GFR) estimation/1.73 sq m using serum, plasma, or whole bOrdered By: Laura Sol on 01-08-2025 GFR/1.73 sq M.predicted among non-blacks MDRD (S/P/Bld) [Vol rate/Area] 23 mL/min/{1.73_m2} Low >60 [facility] Comment on above: mL/min/1.73m2 CKD-EP I Creatinine Equation (2020) Hematocrit Auto (Bld) [Volum e fraction]Ordered By: Laura Sol on 01-08-2025 Hematocrit (Bld) [Volume fraction] 33.1 % Low 37-47 [facility] Hemoglobin measurementOrdere d By: Laura Sol on 01-08-2025 Hemoglobin (Bld) [Mass/Vol] 10.1 g/dL Low 12.0-15.0 [facility] Immature granulocytes/100 WB C Auto (Bld)Ordered By: Laura Sol on 01-08-2025 Immature granulocytes/100 WBC (Bld) 0.900 % 0.0-0.9 [facility] Comment on above: IG% - Immature Granu locytes (promyelocytes, myelocytes and metamyelocytes) > 1% indicates that a LEFT SHIFT is Present. MCV (mean corpuscular volume ) determinationOrdered By: Laura Sol on 01-08-2025 MCV (RBC) [Entitic vol] 103.8 fL High 81-99 [facility] Mean corpuscular hemoglobin (MCH) determinationOrdered By: Laura Sol 01-08-2025 MCH (RBC) [Entitic mass] 31.7 pg 27.0-32.0 [facility] Mean corpuscular hemoglobin concentration (MCHC) determinationOrdered By: Laura Sol 01-08-2025 MCHC (RBC) [Mass/Vol] 30.5 g/dL Low 32-36 [facility] Mean platelet volume determi nationOrdered By: Laura Sol 01-08-2025 Platelet mean volume (Bld) [Entitic vol] 10.5 fL 6.2-12.0 [facility] Monocyte percentageOrdered B y: Laura Sol on 01-08-2025 Monocytes/100 WBC (Bld) 4.7 % 0-10 [facility] Neutrophil percentageOrdered By: Laura Sol on 01-08-2025 Neutrophils/100 WBC (Bld) 87.5 % High 47-70 [facility] Nucleated red blood cell per centageOrdered By: Laura Sol on 01-08-2025 Nucleated RBC/100 WBC (Bld) [Ratio] 0 % 0-5 [facility] Platelet countOrdered By: Erik Sol on 01-08-2025 Platelets (Bld) [#/Vol] 178 10*3/uL 150-450 [facility] Potassium measurement (mass/ volume)Ordered By: Laura Sol on 01-08-2025 Potassium (Unsp spec) [Mass/Vol] 4.1 mmol/L 3.3-5.1 [facility] RBC Auto (Bld) [#/Vol]Ordere d By: Laura Sol on 01-08-2025 RBC (Bld) [#/Vol] 3.19 10*6/uL Low 4.2-5.4 [facility] Serum creatinine measurement (mass/volume)Ordered By: Laura Sol on 01-08-2025 Creatinine [Mass/Vol] 2.19 mg/dL High 0.70-1.20 [facility] Serum glucose measurement (m ass/volume)Ordered By: Laura Sol on 01-08-2025 Glucose [Mass/Vol] 125 mg/dL High 70-99 [facility] Serum or plasma calcium reese urement (mass/volume)Ordered By: Laura Sol on 01-08-2025 Calcium [Mass/Vol] 8.4 mg/dL 7.6-11.0 [facility] Serum or plasma urea nitroge n measurement (mass/volume)Ordered By: Laura Sol on 01-08-2025 Urea nitrogen [Mass/Vol] 64 mg/dL High 4-19 [facility] Sodium levelOrdered By: Laura Sol on 01-08-2025 Sodium [Moles/Vol] 140 mmol/L 133-145 [facility] White blood cell (WBC) count Ordered By: Laura Sol on 01-08-2025 WBC (Bld) [#/Vol] 5.5 10*3/uL 4.4-11.0 [facility] Basic Metabolic Profile (BMP )on 01-07-2025 BUN/CRE 26.3 RATIO High 10-20 [facility] Comment on above: Performed By: #### L 500.2500, L100.0100, L501.9520 ####[facility] [address] [place], [place], [address] Calcium [Mass/Vol] 8.8 mg/dL Normal 7.6-11.0 [facility] Comment on above: Performed By: #### L 500.2500, L100.0100, L501.9520 ####[facility] [address] [place], [address] Chloride [Moles/Vol] 97 mmol/L Low 98-108 [facility] Comment on above: Performed By: #### L 500.2500, L100.0100, L501.9520 ####[facility] [address] [place], [address] CO2 [Moles/Vol] 32.7 mmol/L High 21.0-32.0 [facility] Comment on above: Performed By: #### L 500.2500, L100.0100, L501.9520 ####[facility] [address] [place], [address] Creatinine [Mass/Vol] 1.96 mg/dL High 0.70-1.20 [facility] Comment on above: Performed By: #### L 500.2500, L100.0100, L501.9520 ####[facility] [address] [place], [address] ECRCL 33.36 ml/min Low 50-250 [facility] Comment on above: Performed By: #### L 500.2500, L100.0100, L501.9520 ####[facility] [address] [place], [address] GAP 11 Normal 5-15 [facility] Comment on above: Performed By: #### L 500.2500, L100.0100, L501.9520 ####[facility] [address] [place], [address] GFR/1.73 sq M.predicted among non-blacks MDRD (S/P/Bld) [Vol rate/Area] 26 mL/min/{1.73_m2} Low >60 [facility] Comment on above: Result Comment: mL/m in/1.73m2 CKD-EPI Creatinine Equation (2020) Performed By: #### L 500.2500, L100.0100, L501.9520 ####[facility] [address] [place], [address] Glucose [Mass/Vol] 123 mg/dL High 70-99 [facility] Comment on above: Performed By: #### L 500.2500, L100.0100, L501.9520 ####[facility] [address] [place], [address] Potassium [Moles/Vol] 4.2 mmol/L Normal 3.3-5.1 [facility] Comment on above: Performed By: #### L 500.2500, L100.0100, L501.9520 ####[facility] [address] [place], [address] Sodium [Moles/Vol] 140 mmol/L Normal 133-145 [facility] Comment on above: Performed By: #### L 500.2500, L100.0100, L501.9520 ####[facility] [address] [place], [address] Urea nitrogen [Mass/Vol] 52 mg/dL High 4-19 [facility] Comment on above: Performed By: #### L 500.2500, L100.0100, L501.9520 ####[facility] [address] [place], [address] CBC W/Diff, Automatedon 08 0-2024 Absolute Lymph 0.53 X10 3/uL Low 0.83-4.51 [facility] Comment on above: Performed By: #### L 500.2500, L100.0100, L501.9520 ####[facility] [address] [place], [address] Absolute Neut 5.5 X10 3/uL Normal 2.0-7.7 [facility] Comment on above: Performed By: #### L 500.2500, L100.0100, L501.9520 ####[facility] [address] [place], [address] Basophils/100 WBC (Bld) 0.0 % Normal 0-1 [facility] Comment on above: Performed By: #### L 500.2500, L100.0100, L501.9520 ####[facility] [address] [place], [address] Eosinophils/100 WBC (Bld) 0.0 % Normal 0-5 [facility] Comment on above: Performed By: #### L 500.2500, L100.0100, L501.9520 ####[facility] [address] [place], [address] Erythrocyte distribution width (RBC) [Ratio] 13.7 % Normal 11.6-14.6 [facility] Comment on above: Performed By: #### L 500.2500, L100.0100, L501.9520 ####[facility] [address] [place], [address] Hematocrit (Bld) [Volume fraction] 29.4 % Low 37-47 [facility] Comment on above: Performed By: #### L 500.2500, L100.0100, L501.9520 ####[facility] [address] [place], [address] Hemoglobin (Bld) [Mass/Vol] 9.2 g/dL Low 12.0-15.0 [facility] Comment on above: Performed By: #### L 500.2500, L100.0100, L501.9520 ####[facility] [address] [place], [address] IG% 0.800 Normal 0.0-0.9 [facility] Comment on above: Result Comment: IG% - Immature Granulocytes (promyelocytes, myelocytes andmetamyelocytes) > 1% indicates that a LEFT SHIFT is Present. Performed By: #### L 500.2500, L100.0100, L501.20 ####[facility] [address] [place], [address] Lymphocytes/100 WBC (Bld) 8.3 % Low 19-41 [facility] Comment on above: Performed By: #### L 500.2500, L100.0100, L5.20 ####[facility] [address] [place], [address] MCH (RBC) [Entitic mass] 31.7 pg Normal 27.0-32.0 [facility] Comment on above: Performed By: #### L 500.2500, L100.0100, L501.20 ####[facility] [address] [place], [address] MCHC (RBC) [Mass/Vol] 31.3 g/dL Low 32-36 [facility] Comment on above: Performed By: #### L 500.2500, L100.0100, L5.20 ####[facility] [address] [place], [address] MCV (RBC) [Entitic vol] 101.4 fL High 81-99 [facility] Comment on above: Performed By: #### L 500.2500, L100.0100, L5.20 ####[facility] [address] [place], [address] Monocytes/100 WBC (Bld) 4.7 % Normal 0-10 [facility] Comment on above: Performed By: #### L 500.2500, L100.0100, L501.20 ####[facility] [address] [place], [address] Neutrophils/100 WBC (Bld) 86.2 % High 47-70 [facility] Comment on above: Performed By: #### L 500.2500, L100.0100, L501.9520 ####[facility] [address] [place], [address] Nucleated RBC (Bld) [#/Vol] 0 10*3/uL Normal 0-5 [facility] Comment on above: Performed By: #### L 500.2500, L100.0100, L501.9520 ####[facility] [address] [place], [address] Platelet mean volume (Bld) [Entitic vol] 10.6 fL Normal 6.2-12.0 [facility] Comment on above: Performed By: #### L 500.2500, L100.0100, L501.9520 ####[facility] [address] [place], [address] Platelets (Bld) [#/Vol] 185 10*3/uL Normal 150-450 [facility] Comment on above: Performed By: #### L 500.2500, L100.0100, L501.9520 ####[facility] [address] [place], [address] RBC (Bld) [#/Vol] 2.90 10*6/uL Low 4.2-5.4 [facility] Comment on above: Performed By: #### L 500.2500, L100.0100, L501.9520 ####[facility] [address] [place], [address] RDW SD 51.0 fl High 35.1-43.9 [facility] Comment on above: Performed By: #### L 500.2500, L100.0100, L501.9520 ####[facility] [address] [place], [address] WBC (Bld) [#/Vol] 6.4 10*3/uL Normal 4.4-11.0 [facility] Comment on above: Performed By: #### L 500.2500, L100.0100, L501.9520 ####[facility] [address] [place], [address] Magnesiumon 01-07-2025 Magnesium [Mass/Vol] 1.8 mg/dL Normal 1.5-2.2 [facility] Comment on above: Performed By: #### L 501.5200 ####[facility] [address] [place], [address] TSH DL <= 0.005 mIU/L QnOrde red By: Daisy White on 01-07-2025 TSH Qn 0.756 uIU/mL 0.300-4.200 [facility] Thyroid Stim Hormone (TSH)on 01-07-2025 TSH 0.756 uIU/mL Normal 0.300-4.200 [facility] Comment on above: Performed By: #### L 500.2500, L100.0100, L501.9520 ####[facility] [address] [place], [address] 12 Lead EKGon 01-06-2025 12 Lead EKG Normal [facility] Basic Metabolic Profile (BMP )on 01-06-2025 BUN/CRE 20.8 RATIO High 10-20 [facility] Comment on above: Performed By: #### L 500.2500, L100.0100 ####[facility] [address] [place], [address] Calcium [Mass/Vol] 9.0 mg/dL Normal 7.6-11.0 [facility] Comment on above: Performed By: #### L 500.2500, L100.0100 ####[facility] [address] [place], [address] Chloride [Moles/Vol] 98 mmol/L Normal 98-108 [facility] Comment on above: Performed By: #### L 500.2500, L100.0100 ####[facility] [address] [place], [address] CO2 [Moles/Vol] 30.2 mmol/L Normal 21.0-32.0 [facility] Comment on above: Performed By: #### L 500.2500, L100.0100 ####[facility] [address] [place], [address] Creatinine [Mass/Vol] 2.00 mg/dL High 0.70-1.20 [facility] Comment on above: Performed By: #### L 500.2500, L100.0100 ####[facility] [address] [place], [address] ECRCL 32.69 ml/min Low 50-250 [facility] Comment on above: Performed By: #### L 500.2500, L100.0100 ####[facility] [address] [place], [address] GAP 11 Normal 5-15 [facility] Comment on above: Performed By: #### L 500.2500, L100.0100 ####[facility] [address] [place], [address] GFR/1.73 sq M.predicted among non-blacks MDRD (S/P/Bld) [Vol rate/Area] 26 mL/min/{1.73_m2} Low >60 [facility] Comment on above: Result Comment: mL/m in/1.73m2 CKD-EPI Creatinine Equation (2020) Performed By: #### L 500.2500, L100.0100 ####[facility] [address] [place], [address] Glucose [Mass/Vol] 118 mg/dL High 70-99 [facility] Comment on above: Performed By: #### L 500.2500, L100.0100 ####[facility] [address] [place], [address] Potassium [Moles/Vol] 4.9 mmol/L Normal 3.3-5.1 [facility] Comment on above: Performed By: #### L 500.2500, L100.0100 ####[facility] [address] [place], [address] Sodium [Moles/Vol] 140 mmol/L Normal 133-145 [facility] Comment on above: Performed By: #### L 500.2500, L100.0100 ####[facility] [address] [place], [address] Urea nitrogen [Mass/Vol] 42 mg/dL High 4-19 [facility] Comment on above: Performed By: #### L 500.2500, L100.0100 ####[facility] [address] [place], [address] CBC W/Diff, Automatedon 08-0 9-2024 Absolute Lymph 0.41 X10 3/uL Low 0.83-4.51 [facility] Comment on above: Performed By: #### L 500.2500, L100.0100 ####[facility] [address] [place], [address] Absolute Neut 4.0 X10 3/uL Normal 2.0-7.7 [facility] Comment on above: Performed By: #### L 500.2500, L100.0100 ####[facility] [address] [place], [address] Basophils/100 WBC (Bld) 0.2 % Normal 0-1 [facility] Comment on above: Performed By: #### L 500.2500, L100.0100 ####[facility] [address] [place], [address] Eosinophils/100 WBC (Bld) 0.0 % Normal 0-5 [facility] Comment on above: Performed By: #### L 500.2500, L100.0100 ####[facility] [address] [place], [address] Erythrocyte distribution width (RBC) [Ratio] 14.0 % Normal 11.6-14.6 [facility] Comment on above: Performed By: #### L 500.2500, L100.0100 ####[facility] [address] [place], [address] Hematocrit (Bld) [Volume fraction] 29.1 % Low 37-47 [facility] Comment on above: Performed By: #### L 500.2500, L100.0100 ####[facility] [address] [place], [address] Hemoglobin (Bld) [Mass/Vol] 8.8 g/dL Low 12.0-15.0 [facility] Comment on above: Performed By: #### L 500.2500, L100.0100 ####[facility] [address] [place], [address] IG% 1.000 High 0.0-0.9 [facility] Comment on above: Result Comment: IG% - Immature Granulocytes (promyelocytes, myelocytes andmetamyelocytes) > 1% indicates that a LEFT SHIFT is Present. Performed By: #### L 500.2500, L100.0100 ####[facility] [address] [place], [address] Lymphocytes/100 WBC (Bld) 8.5 % Low 19-41 [facility] Comment on above: Performed By: #### L 500.2500, L100.0100 ####[facility] [address] [place], [address] MCH (RBC) [Entitic mass] 31.7 pg Normal 27.0-32.0 [facility] Comment on above: Performed By: #### L 500.2500, L100.0100 ####[facility] [address] [place], [address] MCHC (RBC) [Mass/Vol] 30.2 g/dL Low 32-36 [facility] Comment on above: Performed By: #### L 500.2500, L100.0100 ####[facility] [address] [place], [address] MCV (RBC) [Entitic vol] 104.7 fL High 81-99 [facility] Comment on above: Performed By: #### L 500.2500, L100.0100 ####[facility] [address] [place], [address] Monocytes/100 WBC (Bld) 6.6 % Normal 0-10 [facility] Comment on above: Performed By: #### L 500.2500, L100.0100 ####[facility] [address] [place], [address] Neutrophils/100 WBC (Bld) 83.7 % High 47-70 [facility] Comment on above: Performed By: #### L 500.2500, L100.0100 ####[facility] [address] [place], [address] Nucleated RBC (Bld) [#/Vol] 0 10*3/uL Normal 0-5 [facility] Comment on above: Performed By: #### L 500.2500, L100.0100 ####[facility] [address] [place], [address] Platelet mean volume (Bld) [Entitic vol] 11.2 fL Normal 6.2-12.0 [facility] Comment on above: Performed By: #### L 500.2500, L100.0100 ####[facility] [address] [place], [address] Platelets (Bld) [#/Vol] 165 10*3/uL Normal 150-450 [facility] Comment on above: Performed By: #### L 500.2500, L100.0100 ####[facility] [address] [place], [address] RBC (Bld) [#/Vol] 2.78 10*6/uL Low 4.2-5.4 [facility] Comment on above: Performed By: #### L 500.2500, L100.0100 ####[facility] [address] [place], [address] RDW SD 53.3 fl High 35.1-43.9 [facility] Comment on above: Performed By: #### L 500.2500, L100.0100 ####[facility] [address] [place], [address] WBC (Bld) [#/Vol] 4.8 10*3/uL Normal 4.4-11.0 [facility] Comment on above: Performed By: #### L 500.2500, L100.0100 ####[facility] [address] [place], [address] Consultation - Intensiviston 01-06-2025 Consultation - Dental Service Chief Normal [facility] Magnesium measurement (mass/ volume)Ordered By: Daisy Rivera on 01-06-2025 Magnesium (Unsp spec) [Mass/Vol] 1.8 mg/dL 1.5-2.2 [facility] RESPIRATORY PANEL MOLECULARo n 01-06-2025 RP PANEL Normal [facility] Comment on above: Performed By: #### M 100.638 ####[facility] [address] [place], [address] 12 Lead EKGon 01-05-2025 12 Lead EKG Normal [facility] Absolute lymphocyte countOrd ered By: Lobito Benson on 01-05-2025 Lymphocytes Auto (Unsp spec) [#/Vol] 0.53 10*3/uL Low 0.83-4.51 [facility] Absolute neutrophil countOrd ered By: Lobito Benson on 01-05-2025 Neutrophils (Bld) [#/Vol] 4.3 10*3/uL 2.0-7.7 [facility] Anion gap in Serum or Plasma Ordered By: Lobito Benson on 01-05-2025 Anion gap [Moles/Vol] 8 mmol/L 5-15 [facility] Assessment of wrist artery p atency prior to arterial punctureOrdered By: Laura Sol on 01-05-2025 Arterial patency Wrist artery --pre arterial puncture Positive [facility] Automated lymphocyte count a s percentage of total leukocytesOrdered By: Lobito Benson on 01-05-2025 Lymphocytes/100 WBC Auto (Unsp spec) 9.6 % Low 19-41 [facility] BUN/creatinine ratioOrdered By: Lobito Benson on 01-05-2025 Urea nitrogen/Creatinine [Mass ratio] 21.3 mg/mg High 10-20 [facility] Basic Metabolic Profile (BMP )on 01-05-2025 BUN/CRE 21.3 RATIO High 10-20 [facility] Comment on above: Performed By: #### L 500.2500, L501.4021, L100.0100 ####[facility] [address] [place], [address] Calcium [Mass/Vol] 9.3 mg/dL Normal 7.6-11.0 [facility] Comment on above: Performed By: #### L 500.2500, L501.4021, L100.0100 ####[facility] [address] [place], [address] Chloride [Moles/Vol] 102 mmol/L Normal 98-108 [facility] Comment on above: Performed By: #### L 500.2500, L501.4021, L100.0100 ####[facility] [address] [place], [address] CO2 [Moles/Vol] 31.4 mmol/L Normal 21.0-32.0 [facility] Comment on above: Performed By: #### L 500.2500, L501.4021, L100.0100 ####[facility] [address] [place], [address] Creatinine [Mass/Vol] 1.79 mg/dL High 0.70-1.20 [facility] Comment on above: Performed By: #### L 500.2500, L501.4021, L100.0100 ####[facility] [address] [place], [address] ECRCL 36.33 ml/min Low 50-250 [facility] Comment on above: Performed By: #### L 500.2500, L501.4021, L100.0100 ####[facility] [address] [place], [address] GAP 8 Normal 5-15 [facility] Comment on above: Performed By: #### L 500.2500, L501.4021, L100.0100 ####[facility] [address] [place], [address] GFR/1.73 sq M.predicted among non-blacks MDRD (S/P/Bld) [Vol rate/Area] 29 mL/min/{1.73_m2} Low >60 [facility] Comment on above: Result Comment: mL/m in/1.73m2 CKD-EPI Creatinine Equation (2020) Performed By: #### L 500.2500, L501.4021, L100.0100 ####[facility] [address] [place], [address] Glucose [Mass/Vol] 96 mg/dL Normal 70-99 [facility] Comment on above: Performed By: #### L 500.2500, L501.4021, L100.0100 ####[facility] [address] [place], [address] Potassium [Moles/Vol] 4.9 mmol/L Normal 3.3-5.1 [facility] Comment on above: Performed By: #### L 500.2500, L501.4021, L100.0100 ####[facility] [address] [place], [address] Sodium [Moles/Vol] 141 mmol/L Normal 133-145 [facility] Comment on above: Performed By: #### L 500.2500, L501.4021, L100.0100 ####[facility] [address] [place], [address] Urea nitrogen [Mass/Vol] 38 mg/dL High 4-19 [facility] Comment on above: Performed By: #### L 500.2500, L501.4021, L100.0100 ####[facility] [address] [place], [address] Basophil percentageOrdered B y: Lobito Benson on 01-05-2025 Basophils/100 WBC (Bld) 0.4 % 0-1 [facility] Positive Normal [facility] Comment on above: Performed By: #### L 9000.0800 ####[facility] [address] [place], [address] Base excess Calc (Bld) [Moles/Vol] 10 mmol/L High -2 to +2 [facility] Comment on above: Performed By: #### L 9000.0800 ####[facility] [address] [place], [address] Blood Gas Type ART Normal [facility] Comment on above: Performed By: #### L 9000.0800 ####[facility] [address] [place], [address] CO2 [Moles/Vol] 38 mmol/L Normal [facility] Comment on above: Performed By: #### L 9000.0800 ####[facility] [address] [place], [address] FI02 30.0 Normal [facility] Comment on above: Performed By: #### L 9000.0800 ####[facility] [address] [place], [address] HCO3 (Bld) [Moles/Vol] 35.7 mmol/L High 22-26 [facility] Comment on above: Performed By: #### L 9000.0800 ####[facility] [address] [place], [address] Mode AVAPS Normal [facility] Comment on above: Performed By: #### L 9000.0800 ####[facility] [address] [place], [address] O2 Delivery Dev BiPAP Normal [facility] Comment on above: Performed By: #### L 9000.0800 ####[facility] [address] [place], [address] pCO2 65.6 mmHg High 35-45 [facility] Comment on above: Performed By: #### L 9000.0800 ####[facility] [address] [place], [address] PEEP 8 Normal [facility] Comment on above: Performed By: #### L 9000.0800 ####[facility] [address] [place], [address] pH (Bld) 7.34 [pH] Low 7.35-7.45 [facility] Comment on above: Performed By: #### L 9000.0800 ####[facility] [address] [place], [address] PO2 59 mmHG Low 75-100 [facility] Comment on above: Performed By: #### L 9000.0800 ####[facility] [address] [place], [address] SITE R Radial Normal [facility] Comment on above: Performed By: #### L 9000.0800 ####[facility] [address] [place], [address] SO2 88 Low 95-99 [facility] Comment on above: Performed By: #### L 9000.0800 ####[facility] [address] [place], [address] Vt 450.0 mL Normal [facility] Comment on above: Performed By: #### L 9000.0800 ####[facility] [address] [place], [address] Base excess Calc (Bld) [Moles/Vol] 3 mmol/L High -2 to +2 [facility] Comment on above: Performed By: #### L 9000.0800 ####[facility] [address] [place], [address] Blood Gas Type ART Normal [facility] Comment on above: Performed By: #### L 9000.0800 ####[facility] [address] [place], [address] CO2 [Moles/Vol] 35 mmol/L Normal [facility] Comment on above: Performed By: #### L 9000.0800 ####[facility] [address] [place], [address] FI02 2.0 Normal [facility] Comment on above: Performed By: #### L 9000.0800 ####[facility] [address] [place], [address] HCO3 (Bld) [Moles/Vol] 32.0 mmol/L High 22-26 [facility] Comment on above: Performed By: #### L 9000.0800 ####[facility] [address] [place], [address] Mode Not entered Normal [facility] Comment on above: Performed By: #### L 9000.0800 ####[facility] [address] [place], [address] O2 Delivery Dev Cannula Normal [facility] Comment on above: Performed By: #### L 9000.0800 ####[facility] [address] [place], [address] pCO2 97.8 mmHg Invalid Interpretation Code 35-45 [facility] Comment on above: Performed By: #### L 9000.0800 ####[facility] [address] [place], [address] pH (Bld) 7.12 [pH] Invalid Interpretation Code 7.35-7.45 [facility] Comment on above: Performed By: #### L 9000.0800 ####[facility] [address] [place], [address] PO2 57 mmHG Low 75-100 [facility] Comment on above: Performed By: #### L 9000.0800 ####[facility] [address] [place], [address] Read Back By Yes [facility] Comment on above: Performed By: #### L 9000.0800 ####[facility] [address] [place], [address] SITE L Brach Normal [facility] Comment on above: Performed By: #### L 9000.0800 ####[facility] [address] [place], [address] SO2 76 Low 95-99 [facility] Comment on above: Performed By: #### L 9000.0800 ####[facility] [address] [place], [address] Blood base excess determinat ionOrdered By: Laura Sol on 01-05-2025 Base excess Calc (BldV) [Moles/Vol] 10 mmol/L [facility]2-2 [facility] Blood base excess determinat ionOrdered By: Lobito Benson on 01-05-2025 Base excess Calc (BldV) [Moles/Vol] 3 mmol/L [facility]22 [facility] Blood bicarbonate measuremen tOrdered By: Laura Sol on 01-05-2025 HCO3 (Bld) [Moles/Vol] 35.7 mmol/L High - [facility] Blood bicarbonate measuremen tOrdered By: Lobito Benson on 01-05-2025 HCO3 (Bld) [Moles/Vol] 32.0 mmol/L High 22-26 [facility] CBC W/Diff, Automatedon Absolute Lymph 0.53 X10 3/uL Low 0.83-4.51 [facility] Comment on above: Performed By: #### L 500.2500, L501.4021, L100.0100 ####[facility] [address] [place], [address] Absolute Neut 4.3 X10 3/uL Normal 2.0-7.7 [facility] Comment on above: Performed By: #### L 500.2500, L501.4021, L100.0100 ####[facility] [address] [place], [address] Basophils/100 WBC (Bld) 0.4 % Normal 0-1 [facility] Comment on above: Performed By: #### L 500.2500, L501.4021, L100.0100 ####[facility] [address] [place], [address] Eosinophils/100 WBC (Bld) 0.2 % Normal 0-5 [facility] Comment on above: Performed By: #### L 500.2500, L501.4021, L100.0100 ####[facility] [address] [place], [address] Erythrocyte distribution width (RBC) [Ratio] 14.5 % Normal 11.6-14.6 [facility] Comment on above: Performed By: #### L 500.2500, L501.4021, L100.0100 ####[facility] [address] [place], [address] Hematocrit (Bld) [Volume fraction] 33.7 % Low 37-47 [facility] Comment on above: Performed By: #### L 500.2500, L501.4021, L100.0100 ####[facility] [address] [place], [address] Hemoglobin (Bld) [Mass/Vol] 10.1 g/dL Low 12.0-15.0 [facility] Comment on above: Performed By: #### L 500.2500, L501.4021, L100.0100 ####[facility] [address] [place], [address] IG% 4.200 High 0.0-0.9 [facility] Comment on above: Result Comment: IG% - Immature Granulocytes (promyelocytes, myelocytes andmetamyelocytes) > 1% indicates that a LEFT SHIFT is Present. Performed By: #### L 500.2500, L501.4021, L100.0100 ####[facility] [address] [place], [address] Lymphocytes/100 WBC (Bld) 9.6 % Low 19-41 [facility] Comment on above: Performed By: #### L 500.2500, L501.4021, L100.0100 ####[facility] [address] [place], [address] MCH (RBC) [Entitic mass] 32.5 pg High 27.0-32.0 [facility] Comment on above: Performed By: #### L 500.2500, L501.4021, L100.0100 ####[facility] [address] [place], [address] MCHC (RBC) [Mass/Vol] 30.0 g/dL Low 32-36 [facility] Comment on above: Performed By: #### L 500.2500, L501.4021, L100.0100 ####[facility] [address] [place], [address] MCV (RBC) [Entitic vol] 108.4 fL High 81-99 [facility] Comment on above: Performed By: #### L 500.2500, L501.4021, L100.0100 ####[facility] [address] [place], [address] Monocytes/100 WBC (Bld) 8.5 % Normal 0-10 [facility] Comment on above: Performed By: #### L 500.2500, L501.4021, L100.0100 ####[facility] [address] [place], [address] Neutrophils/100 WBC (Bld) 77.1 % High 47-70 [facility] Comment on above: Performed By: #### L 500.2500, L501.4021, L100.0100 ####[facility] [address] [place], [address] Nucleated RBC (Bld) [#/Vol] 0 10*3/uL Normal 0-5 [facility] Comment on above: Performed By: #### L 500.2500, L501.4021, L100.0100 ####[facility] [address] [place], [address] Platelet mean volume (Bld) [Entitic vol] 10.7 fL Normal 6.2-12.0 [facility] Comment on above: Performed By: #### L 500.2500, L501.4021, L100.0100 ####[facility] [address] [place], [address] Platelets (Bld) [#/Vol] 153 10*3/uL Normal 150-450 [facility] Comment on above: Performed By: #### L 500.2500, L501.4021, L100.0100 ####[facility] [address] [place], [address] RBC (Bld) [#/Vol] 3.11 10*6/uL Low 4.2-5.4 [facility] Comment on above: Performed By: #### L 500.2500, L501.4021, L100.0100 ####[facility] [address] [place], [address] RDW SD 57.4 fl High 35.1-43.9 [facility] Comment on above: Performed By: #### L 500.2500, L501.4021, L100.0100 ####[facility] [address] [place], [address] WBC (Bld) [#/Vol] 5.5 10*3/uL Normal 4.4-11.0 [facility] Comment on above: Performed By: #### L 500.2500, L501.4021, L100.0100 ####[facility] [address] [place], [address] Carbon dioxide, total [Moles /volume] in Central venous bloodOrdered By: Lobito Bensno on 01-05-2025 CO2 [Moles/Vol] 31.4 mmol/L 21.0-32.0 [facility] Chest PA and Lateralon 01-05 Chest PA and Lateral Normal [facility] Chest without Contraston Chest without Contrast Normal [facility] Chloride assayOrdered By: James Benson on 01-05-2025 Chloride [Moles/Vol] 102 mmol/L 98-108 [facility] Emergency Department Summary on 01-05-2025 Emergency Department Summary Normal [facility] Eosinophil percentageOrdered By: Lobito Benson on 01-05-2025 Eosinophils/100 WBC (Bld) 0.2 % 0-5 [facility] Erythrocyte distribution wid th ratioOrdered By: Lobito Benson on 01-05-2025 Erythrocyte distribution width (RBC) [Ratio] 14.5 % 11.6-14.6 [facility] Erythrocyte distribution wid th standard deviationOrdered By: Lobito Benson on 01-05-2025 Erythrocyte distribution width (RBC) [Ratio] 57.4 fl High 35.1-43.9 [facility] Glomerular filtration rate ( GFR) estimation/1.73 sq m using serum, plasma, or whole bOrdered By: Lobito Benson on 01-05-2025 GFR/1.73 sq M.predicted among non-blacks MDRD (S/P/Bld) [Vol rate/Area] 29 mL/min/{1.73_m2} Low >60 [facility] Comment on above: mL/min/1.73m2 CKD-EP I Creatinine Equation (2020) H AND P Exam - [facility] 01-05-2025 H&P Exam - Hospitalist Normal [facility] Hematocrit Auto (Bld) [Volum e fraction]Ordered By: Lobito Benson on 01-05-2025 Hematocrit (Bld) [Volume fraction] 33.7 % Low 37-47 [facility] Hemoglobin measurementOrdere d By: Lobito Benson on 01-05-2025 Hemoglobin (Bld) [Mass/Vol] 10.1 g/dL Low 12.0-15.0 [facility] Immature granulocytes/100 WB C Auto (Bld)Ordered By: Lobito Benson on 01-05-2025 Immature granulocytes/100 WBC (Bld) 4.200 % High 0.0-0.9 [facility] Comment on above: IG% - Immature Granu locytes (promyelocytes, myelocytes and metamyelocytes) > 1% indicates that a LEFT SHIFT is Present. L501.4021on 01-05-2025 Trop T High Sen 37 ng/L High <=14 [facility] Comment on above: Performed By: #### L 500.2500, L501.4021, L100.0100 ####[facility] [address] [place], [address] Legionella Antigen Urineon 0 01-05-2025 LEGU Normal [facility] Comment on above: Performed By: #### M 300.4500, M300.4600 ####[facility] [address] [place], [address] MCV (mean corpuscular volume ) determinationOrdered By: Lobito Benson on 01-05-2025 MCV (RBC) [Entitic vol] 108.4 fL High 81-99 [facility] Mean corpuscular hemoglobin (MCH) determinationOrdered By: Lobito Benson on 01-05-2025 MCH (RBC) [Entitic mass] 32.5 pg High 27.0-32.0 [facility] Mean corpuscular hemoglobin concentration (MCHC) determinationOrdered By: Lobito Bensno on 01-05-2025 MCHC (RBC) [Mass/Vol] 30.0 g/dL Low 32-36 [facility] Mean platelet volume determi nationOrdered By: Lobito Benson on 01-05-2025 Platelet mean volume (Bld) [Entitic vol] 10.7 fL 6.2-12.0 [facility] Measurement, pHOrdered By: Dat Sol on 01-05-2025 pH (Unsp spec) 7.34 [pH] Low 7.35-7.45 [facility] Measurement, pHOrdered By: Acosta Benson on 01-05-2025 pH (Unsp spec) 7.12 [pH] Low 7.35-7.45 [facility] Monocyte percentageOrdered B y: Lobito Benson on 01-05-2025 Monocytes/100 WBC (Bld) 8.5 % 0-10 [facility] Neutrophil percentageOrdered By: Lobito Benson on 01-05-2025 Neutrophils/100 WBC (Bld) 77.1 % High 47-70 [facility] No Panel InformationOrdered By: Laura Sol on 01-05-2025 Bedside Blood Gas PEEP 8 [facility] Blood Gas Sample Site R Radial [facility] Blood Gas Specimen Type ART [facility] Blood Gas Tidal Volume 450.0 mL [facility] Blood Gas Vent Mode AVAPS [facility] Oxygen Delivery Device BiPAP [facility] No Panel InformationOrdered By: Lobito Benson on 01-05-2025 Bld Gas Crit Called To/Read Back By Yes [facility] Blood Gas Sample Site L Joselin [facility] Blood Gas Specimen Type ART [facility] Blood Gas Vent Mode Not entered [facility] Oxygen Delivery Device Cannula [facility] Nucleated red blood cell per centageOrdered By: Lobito Benson on 01-05-2025 Nucleated RBC/100 WBC (Bld) [Ratio] 0 % 0-5 [facility] Platelet countOrdered By: James Benson on 01-05-2025 Platelets (Bld) [#/Vol] 153 10*3/uL 150-450 [facility] Potassium measurement (mass/ volume)Ordered By: Lobito Benson on 01-05-2025 Potassium (Unsp spec) [Mass/Vol] 4.9 mmol/L 3.3-5.1 [facility] RBC Auto (Bld) [#/Vol]Ordere d By: Lobito Benson on 01-05-2025 RBC (Bld) [#/Vol] 3.11 10*6/uL Low 4.2-5.4 [facility] Respiratory pathogens detect ion panel by molecular detection methodOrdered By: Laura Sol on 01-05-2025 Respiratory pathogens DNA and RNA panel NICOLE+probe (Resp) [facility] Serum creatinine measurement (mass/volume)Ordered By: Lobito Benson on 01-05-2025 Creatinine [Mass/Vol] 1.79 mg/dL High 0.70-1.20 [facility] Serum glucose measurement (m ass/volume)Ordered By: Lobito Benson on 01-05-2025 Glucose [Mass/Vol] 96 mg/dL 70-99 [facility] Serum or plasma calcium reese urement (mass/volume)Ordered By: Lobito Benson on 01-05-2025 Calcium [Mass/Vol] 9.3 mg/dL 7.6-11.0 [facility] Serum or plasma urea nitroge n measurement (mass/volume)Ordered By: Lobito Benson on 01-05-2025 Urea nitrogen [Mass/Vol] 38 mg/dL High 4-19 [facility] Sodium levelOrdered By: Lobito Benson on 01-05-2025 Sodium [Moles/Vol] 141 mmol/L 133-145 [facility] Strep pneumoniae Antig(UR,CS F)on 01-05-2025 STPAG Normal [facility] Comment on above: Performed By: #### M 300.4500, M300.4600 ####[facility] [address] [place], [place], [id number] Total carbon dioxide measure mentOrdered By: Larua Sol on 01-05-2025 CO2 [Moles/Vol] 38 mmol/L [facility] Total carbon dioxide measure mentOrdered By: Lobito Benson on 01-05-2025 CO2 [Moles/Vol] 35 mmol/L [facility] Troponin T HS 2 HRon 025 Trop T High Sen 31 ng/L High <=14 [facility] Comment on above: Performed By: #### L 499.0042 ####[facility] [address] [place], [address] Troponin T.cardiac [Mass/vol ume] in Serum or Plasma by High sensitivity methodOrdered By: Lobito Benson on 01-05-2025 Troponin T.cardiac High sensitivity method [Mass/Vol] 31 ng/L High <14 [facility] Troponin T.cardiac High sensitivity method [Mass/Vol] 37 ng/L High <14 [facility] Urine Legionella pneumophila antigen detectionOrdered By: Laura Sol on 01-05-2025 L. pneumophila Ag Ql (U) [facility] White blood cell (WBC) count Ordered By: Lobito Benson on 01-05-2025 WBC (Bld) [#/Vol] 5.5 10*3/uL 4.4-11.0 [facility] Basic Metabolic Profile (BMP )on 11-09-2024 BUN Normal 4-19 [facility] Comment on above: Result Comment: Canc elled via OM: Order cancelled - Patient discharged Performed By: #### L 500.2500, L100.0100 ####[facility] [address] [place], [place], [id number] BUN/CRE Normal 10-20 [facility] Comment on above: Result Comment: Canc elled via OM: Order cancelled - Patient discharged Performed By: #### L 500.2500, L100.0100 ####[facility] [address] [place], [address] Calcium Normal 7.6-11.0 [facility] Comment on above: Result Comment: Canc elled via OM: Order cancelled - Patient discharged Performed By: #### L 500.2500, L100.0100 ####[facility] [address] [place], [address] CL Normal 98-108 [facility] Comment on above: Result Comment: Canc elled via OM: Order cancelled - Patient discharged Performed By: #### L 500.2500, L100.0100 ####[facility] [address] [place], [address] CO2 Normal 21.0-32.0 [facility] Comment on above: Result Comment: Canc elled via OM: Order cancelled - Patient discharged Performed By: #### L 500.2500, L100.0100 ####[facility] [address] [place], [address] CREAT,SERUM Normal 0.70-1.20 [facility] Comment on above: Result Comment: Canc elled via OM: Order cancelled - Patient discharged Performed By: #### L 500.2500, L100.0100 ####[facility] [address] [place], [address] eGFR Normal >60 [facility] Comment on above: Result Comment: Canc elled via OM: Order cancelled - Patient discharged Performed By: #### L 500.2500, L100.0100 ####[facility] [address] [place], [address] GAP Normal 5-15 [facility] Comment on above: Result Comment: Canc elled via OM: Order cancelled - Patient discharged Performed By: #### L 500.2500, L100.0100 ####[facility] [address] [place], [address] GLU Normal 70-99 [facility] Comment on above: Result Comment: Canc elled via OM: Order cancelled - Patient discharged Performed By: #### L 500.2500, L100.0100 ####[facility] [address] [place], [address] Potassium Normal 3.3-5.1 [facility] Comment on above: Result Comment: Canc elled via OM: Order cancelled - Patient discharged Performed By: #### L 500.2500, L100.0100 ####[facility] [address] [place], [address] Basic Metabolic Profile (BMP) Normal 133-145 [facility] Comment on above: Result Comment: Canc elled via OM: Order cancelled - Patient discharged Performed By: #### L 500.2500, L100.0100 ####[facility] [address] [place], [address] CBC W/Diff, Automatedon 06- Absolute Neut Normal 2.0-7.7 [facility] Comment on above: Result Comment: Canc elled via OM: Order cancelled - Patient discharged Performed By: #### L 500.2500, L100.0100 ####[facility] [address] [place], [address] HCT Normal 37-47 [facility] Comment on above: Result Comment: Canc elled via OM: Order cancelled - Patient discharged Performed By: #### L 500.2500, L100.0100 ####[facility] [address] [place], [address] HGB Normal 12.0-15.0 [facility] Comment on above: Result Comment: Canc elled via OM: Order cancelled - Patient discharged Performed By: #### L 500.2500, L100.0100 ####[facility] [address] [place], [address] MCH Normal 27.0-32.0 [facility] Comment on above: Result Comment: Canc elled via OM: Order cancelled - Patient discharged Performed By: #### L 500.2500, L100.0100 ####[facility] [address] [place], [address] MCHC Normal 32-36 [facility] Comment on above: Result Comment: Canc elled via OM: Order cancelled - Patient discharged Performed By: #### L 500.2500, L100.0100 ####[facility] [address] [place], [address] MCV Normal 81-99 [facility] Comment on above: Result Comment: Canc elled via OM: Order cancelled - Patient discharged Performed By: #### L 500.2500, L100.0100 ####[facility] [address] [place], [address] NEUT% Normal 47-70 [facility] Comment on above: Result Comment: Canc elled via OM: Order cancelled - Patient discharged Performed By: #### L 500.2500, L100.0100 ####[facility] [address] [place], [address] PLT Normal 150-450 [facility] Comment on above: Result Comment: Canc elled via OM: Order cancelled - Patient discharged Performed By: #### L 500.2500, L100.0100 ####[facility] [address] [place], [address] RBC Normal 4.2-5.4 [facility] Comment on above: Result Comment: Canc elled via OM: Order cancelled - Patient discharged Performed By: #### L 500.2500, L100.0100 ####[facility] [address] [place], [address] RDW CV Normal 11.6-14.6 [facility] Comment on above: Result Comment: Canc elled via OM: Order cancelled - Patient discharged Performed By: #### L 500.2500, L100.0100 ####[facility] [address] [place], [address] RDW SD Normal 35.1-43.9 [facility] Comment on above: Result Comment: Canc elled via OM: Order cancelled - Patient discharged Performed By: #### L 500.2500, L100.0100 ####[facility] [address] [place], [address] WBC Normal 4.4-11.0 [facility] Comment on above: Result Comment: Canc elled via OM: Order cancelled - Patient discharged Performed By: #### L 500.2500, L100.0100 ####[facility] [address] [place], [address] Basic Metabolic Profile (BMP )on 11-08-2024 BUN Normal 4-19 [facility] Comment on above: Result Comment: Canc elled via OM: Order cancelled - Patient discharged Performed By: #### L 500.2500, L100.0100 ####[facility] [address] [place], [address] BUN/CRE Normal 10-20 [facility] Comment on above: Result Comment: Canc elled via OM: Order cancelled - Patient discharged Performed By: #### L 500.2500, L100.0100 ####[facility] [address] [place], [address] Calcium Normal 7.6-11.0 [facility] Comment on above: Result Comment: Canc elled via OM: Order cancelled - Patient discharged Performed By: #### L 500.2500, L100.0100 ####[facility] [address] [place], [address] CL Normal 98-108 [facility] Comment on above: Result Comment: Canc elled via OM: Order cancelled - Patient discharged Performed By: #### L 500.2500, L100.0100 ####[facility] [address] [place], [address] CO2 Normal 21.0-32.0 [facility] Comment on above: Result Comment: Canc elled via OM: Order cancelled - Patient discharged Performed By: #### L 500.2500, L100.0100 ####[facility] [address] [place], [address] CREAT,SERUM Normal 0.70-1.20 [facility] Comment on above: Result Comment: Canc elled via OM: Order cancelled - Patient discharged Performed By: #### L 500.2500, L100.0100 ####[facility] [address] [place], [address] eGFR Normal >60 [facility] Comment on above: Result Comment: Canc elled via OM: Order cancelled - Patient discharged Performed By: #### L 500.2500, L100.0100 ####[facility] [address] [place], [address] GAP Normal 5-15 [facility] Comment on above: Result Comment: Canc elled via OM: Order cancelled - Patient discharged Performed By: #### L 500.2500, L100.0100 ####[facility] [address] [place], [address] GLU Normal 70-99 [facility] Comment on above: Result Comment: Canc elled via OM: Order cancelled - Patient discharged Performed By: #### L 500.2500, L100.0100 ####[facility] [address] [place], [address] Potassium Normal 3.3-5.1 [facility] Comment on above: Result Comment: Canc elled via OM: Order cancelled - Patient discharged Performed By: #### L 500.2500, L100.0100 ####[facility] [address] [place], [address] Basic Metabolic Profile (BMP) Normal 133-145 [facility] Comment on above: Result Comment: Canc elled via OM: Order cancelled - Patient discharged Performed By: #### L 500.2500, L100.0100 ####[facility] [address] [place], [address] CBC W/Diff, Automatedon - Absolute Neut Normal 2.0-7.7 [facility] Comment on above: Result Comment: Canc elled via OM: Order cancelled - Patient discharged Performed By: #### L 500.2500, L100.0100 ####[facility] [address] [place], [address] HCT Normal 37-47 [facility] Comment on above: Result Comment: Canc elled via OM: Order cancelled - Patient discharged Performed By: #### L 500.2500, L100.0100 ####[facility] [address] [place], [address] HGB Normal 12.0-15.0 [facility] Comment on above: Result Comment: Canc elled via OM: Order cancelled - Patient discharged Performed By: #### L 500.2500, L100.0100 ####[facility] [address] [place], [address] MCH Normal 27.0-32.0 [facility] Comment on above: Result Comment: Canc elled via OM: Order cancelled - Patient discharged Performed By: #### L 500.2500, L100.0100 ####[facility] [address] [place], [address] MCHC Normal 32-36 [facility] Comment on above: Result Comment: Canc elled via OM: Order cancelled - Patient discharged Performed By: #### L 500.2500, L100.0100 ####[facility] [address] [place], [address] MCV Normal 81-99 [facility] Comment on above: Result Comment: Canc elled via OM: Order cancelled - Patient discharged Performed By: #### L 500.2500, L100.0100 ####[facility] [address] [place], [address] NEUT% Normal 47-70 [facility] Comment on above: Result Comment: Canc elled via OM: Order cancelled - Patient discharged Performed By: #### L 500.2500, L100.0100 ####[facility] [address] [place], [address] PLT Normal 150-450 [facility] Comment on above: Result Comment: Canc elled via OM: Order cancelled - Patient discharged Performed By: #### L 500.2500, L100.0100 ####[facility] [address] [place], [address] RBC Normal 4.2-5.4 [facility] Comment on above: Result Comment: Canc elled via OM: Order cancelled - Patient discharged Performed By: #### L 500.2500, L100.0100 ####[facility] [address] [place], [address] RDW CV Normal 11.6-14.6 [facility] Comment on above: Result Comment: Canc elled via OM: Order cancelled - Patient discharged Performed By: #### L 500.2500, L100.0100 ####[facility] [address] [place], [address] RDW SD Normal 35.1-43.9 [facility] Comment on above: Result Comment: Canc elled via OM: Order cancelled - Patient discharged Performed By: #### L 500.2500, L100.0100 ####[facility] [address] [place], [address] WBC Normal 4.4-11.0 [facility] Comment on above: Result Comment: Canc elled via OM: Order cancelled - Patient discharged Performed By: #### L 500.2500, L100.0100 ####[facility] [address] [place], [address] Basic Metabolic Profile (BMP )on 11-07-2024 BUN Normal 4-19 [facility] Comment on above: Result Comment: Canc elled via OM: Order cancelled - Patient discharged Performed By: #### L 500.2500, L100.0100 ####[facility] [address] [place], [address] BUN/CRE Normal 10-20 [facility] Comment on above: Result Comment: Canc elled via OM: Order cancelled - Patient discharged Performed By: #### L 500.2500, L100.0100 ####[facility] [address] [place], [address] Calcium Normal 7.6-11.0 [facility] Comment on above: Result Comment: Canc elled via OM: Order cancelled - Patient discharged Performed By: #### L 500.2500, L100.0100 ####[facility] [address] [place], [address] CL Normal 98-108 [facility] Comment on above: Result Comment: Canc elled via OM: Order cancelled - Patient discharged Performed By: #### L 500.2500, L100.0100 ####[facility] [address] [place], [address] CO2 Normal 21.0-32.0 [facility] Comment on above: Result Comment: Canc elled via OM: Order cancelled - Patient discharged Performed By: #### L 500.2500, L100.0100 ####[facility] [address] [place], [address] CREAT,SERUM Normal 0.70-1.20 [facility] Comment on above: Result Comment: Canc elled via OM: Order cancelled - Patient discharged Performed By: #### L 500.2500, L100.0100 ####[facility] [address] [place], [address] eGFR Normal >60 [facility] Comment on above: Result Comment: Canc elled via OM: Order cancelled - Patient discharged Performed By: #### L 500.2500, L100.0100 ####[facility] [address] [place], [address] GAP Normal 5-15 [facility] Comment on above: Result Comment: Canc elled via OM: Order cancelled - Patient discharged Performed By: #### L 500.2500, L100.0100 ####[facility] [address] [place], [address] GLU Normal 70-99 [facility] Comment on above: Result Comment: Canc elled via OM: Order cancelled - Patient discharged Performed By: #### L 500.2500, L100.0100 ####[facility] [address] [place], [address] Potassium Normal 3.3-5.1 [facility] Comment on above: Result Comment: Canc elled via OM: Order cancelled - Patient discharged Performed By: #### L 500.2500, L100.0100 ####[facility] [address] [place], [address] Basic Metabolic Profile (BMP) Normal 133-145 [facility] Comment on above: Result Comment: Canc elled via OM: Order cancelled - Patient discharged Performed By: #### L 500.2500, L100.0100 ####[facility] [address] [place], [address] CBC W/Diff, Automatedon 06- 0-2024 Absolute Neut Normal 2.0-7.7 [facility] Comment on above: Result Comment: Canc elled via OM: Order cancelled - Patient discharged Performed By: #### L 500.2500, L100.0100 ####[facility] [address] [place], [address] HCT Normal 37-47 [facility] Comment on above: Result Comment: Canc elled via OM: Order cancelled - Patient discharged Performed By: #### L 500.2500, L100.0100 ####[facility] [address] [place], [address] HGB Normal 12.0-15.0 [facility] Comment on above: Result Comment: Canc elled via OM: Order cancelled - Patient discharged Performed By: #### L 500.2500, L100.0100 ####[facility] [address] [place], [address] MCH Normal 27.0-32.0 [facility] Comment on above: Result Comment: Canc elled via OM: Order cancelled - Patient discharged Performed By: #### L 500.2500, L100.0100 ####[facility] [address] [place], [address] MCHC Normal 32-36 [facility] Comment on above: Result Comment: Canc elled via OM: Order cancelled - Patient discharged Performed By: #### L 500.2500, L100.0100 ####[facility] [address] [place], [address] MCV Normal 81-99 [facility] Comment on above: Result Comment: Canc elled via OM: Order cancelled - Patient discharged Performed By: #### L 500.2500, L100.0100 ####[facility] [address] [place], [address] NEUT% Normal 47-70 [facility] Comment on above: Result Comment: Canc elled via OM: Order cancelled - Patient discharged Performed By: #### L 500.2500, L100.0100 ####[facility] [address] [place], [address] PLT Normal 150-450 [facility] Comment on above: Result Comment: Canc elled via OM: Order cancelled - Patient discharged Performed By: #### L 500.2500, L100.0100 ####[facility] [address] [place], [address] RBC Normal 4.2-5.4 [facility] Comment on above: Result Comment: Canc elled via OM: Order cancelled - Patient discharged Performed By: #### L 500.2500, L100.0100 ####[facility] [address] [place], [address] RDW CV Normal 11.6-14.6 [facility] Comment on above: Result Comment: Canc elled via OM: Order cancelled - Patient discharged Performed By: #### L 500.2500, L100.0100 ####[facility] [address] [place], [address] RDW SD Normal 35.1-43.9 [facility] Comment on above: Result Comment: Canc elled via OM: Order cancelled - Patient discharged Performed By: #### L 500.2500, L100.0100 ####[facility] [address] [place], [address] WBC Normal 4.4-11.0 [facility] Comment on above: Result Comment: Canc elled via OM: Order cancelled - Patient discharged Performed By: #### L 500.2500, L100.0100 ####[facility] [address] [place], [address] Basic Metabolic Profile (BMP )on 11-06-2024 BUN Normal 4-19 [facility] Comment on above: Result Comment: Canc elled via OM: Order cancelled - Patient discharged Performed By: #### L 100.0100, L500.2500 ####[facility] [address] [place], [address] BUN/CRE Normal 10-20 [facility] Comment on above: Result Comment: Canc elled via OM: Order cancelled - Patient discharged Performed By: #### L 100.0100, L500.2500 ####[facility] [address] [place], [address] Calcium Normal 7.6-11.0 [facility] Comment on above: Result Comment: Canc elled via OM: Order cancelled - Patient discharged Performed By: #### L 100.0100, L500.2500 ####[facility] [address] [place], [address] CL Normal 98-108 [facility] Comment on above: Result Comment: Canc elled via OM: Order cancelled - Patient discharged Performed By: #### L 100.0100, L500.2500 ####[facility] [address] [place], [address] CO2 Normal 21.0-32.0 [facility] Comment on above: Result Comment: Canc elled via OM: Order cancelled - Patient discharged Performed By: #### L 100.0100, L500.2500 ####[facility] [address] [place], [address] CREAT,SERUM Normal 0.70-1.20 [facility] Comment on above: Result Comment: Canc elled via OM: Order cancelled - Patient discharged Performed By: #### L 100.0100, L500.2500 ####[facility] [address] [place], [address] eGFR Normal >60 [facility] Comment on above: Result Comment: Canc elled via OM: Order cancelled - Patient discharged Performed By: #### L 100.0100, L500.2500 ####[facility] [address] [place], [address] GAP Normal 5-15 [facility] Comment on above: Result Comment: Canc elled via OM: Order cancelled - Patient discharged Performed By: #### L 100.0100, L500.2500 ####[facility] [address] [place], [address] GLU Normal 70-99 [facility] Comment on above: Result Comment: Canc elled via OM: Order cancelled - Patient discharged Performed By: #### L 100.0100, L500.2500 ####[facility] [address] [place], [address] Potassium Normal 3.3-5.1 [facility] Comment on above: Result Comment: Canc elled via OM: Order cancelled - Patient discharged Performed By: #### L 100.0100, L500.2500 ####[facility] [address] [place], [address] Basic Metabolic Profile (BMP) Normal 133-145 [facility] Comment on above: Result Comment: Canc elled via OM: Order cancelled - Patient discharged Performed By: #### L 100.0100, L500.2500 ####[facility] [address] [place], [address] CBC W/Diff, Automatedon 06-0 9-2024 Absolute Neut Normal 2.0-7.7 [facility] Comment on above: Result Comment: Canc elled via OM: Order cancelled - Patient discharged Performed By: #### L 100.0100, L500.2500 ####[facility] [address] [place], [address] HCT Normal 37-47 [facility] Comment on above: Result Comment: Canc elled via OM: Order cancelled - Patient discharged Performed By: #### L 100.0100, L500.2500 ####[facility] [address] [place], [address] HGB Normal 12.0-15.0 [facility] Comment on above: Result Comment: Canc elled via OM: Order cancelled - Patient discharged Performed By: #### L 100.0100, L500.2500 ####[facility] [address] [place], [address] MCH Normal 27.0-32.0 [facility] Comment on above: Result Comment: Canc elled via OM: Order cancelled - Patient discharged Performed By: #### L 100.0100, L500.2500 ####[facility] [address] [place], [address] MCHC Normal 32-36 [facility] Comment on above: Result Comment: Canc elled via OM: Order cancelled - Patient discharged Performed By: #### L 100.0100, L500.2500 ####[facility] [address] [place], [address] MCV Normal 81-99 [facility] Comment on above: Result Comment: Canc elled via OM: Order cancelled - Patient discharged Performed By: #### L 100.0100, L500.2500 ####[facility] [address] [place], [address] NEUT% Normal 47-70 [facility] Comment on above: Result Comment: Canc elled via OM: Order cancelled - Patient discharged Performed By: #### L 100.0100, L500.2500 ####[facility] [address] [place], [address] PLT Normal 150-450 [facility] Comment on above: Result Comment: Canc elled via OM: Order cancelled - Patient discharged Performed By: #### L 100.0100, L500.2500 ####[facility] [address] [place], [address] RBC Normal 4.2-5.4 [facility] Comment on above: Result Comment: Canc elled via OM: Order cancelled - Patient discharged Performed By: #### L 100.0100, L500.2500 ####[facility] [address] [place], [address] RDW CV Normal 11.6-14.6 [facility] Comment on above: Result Comment: Canc elled via OM: Order cancelled - Patient discharged Performed By: #### L 100.0100, L500.2500 ####[facility] [address] [place], [address] RDW SD Normal 35.1-43.9 [facility] Comment on above: Result Comment: Canc elled via OM: Order cancelled - Patient discharged Performed By: #### L 100.0100, L500.2500 ####[facility] [address] [place], [address] WBC Normal 4.4-11.0 [facility] Comment on above: Result Comment: Canc elled via OM: Order cancelled - Patient discharged Performed By: #### L 100.0100, L500.2500 ####[facility] [address] [place], [address] Basic Metabolic Profile (BMP )on 11-05-2024 BUN Normal 4-19 [facility] Comment on above: Result Comment: Canc elled via OM: Order cancelled - Patient discharged Performed By: #### L 100.0100, L500.2500 ####[facility] [address] [place], [address] BUN/CRE Normal 10-20 [facility] Comment on above: Result Comment: Canc elled via OM: Order cancelled - Patient discharged Performed By: #### L 100.0100, L500.2500 ####[facility] [address] [place], [address] Calcium Normal 7.6-11.0 [facility] Comment on above: Result Comment: Canc elled via OM: Order cancelled - Patient discharged Performed By: #### L 100.0100, L500.2500 ####[facility] [address] [place], [address] CL Normal 98-108 [facility] Comment on above: Result Comment: Canc elled via OM: Order cancelled - Patient discharged Performed By: #### L 100.0100, L500.2500 ####[facility] [address] [place], [address] CO2 Normal 21.0-32.0 [facility] Comment on above: Result Comment: Canc elled via OM: Order cancelled - Patient discharged Performed By: #### L 100.0100, L500.2500 ####[facility] [address] [place], [address] CREAT,SERUM Normal 0.70-1.20 [facility] Comment on above: Result Comment: Canc elled via OM: Order cancelled - Patient discharged Performed By: #### L 100.0100, L500.2500 ####[facility] [address] [place], [address] eGFR Normal >60 [facility] Comment on above: Result Comment: Canc elled via OM: Order cancelled - Patient discharged Performed By: #### L 100.0100, L500.2500 ####[facility] [address] [place], [address] GAP Normal 5-15 [facility] Comment on above: Result Comment: Canc elled via OM: Order cancelled - Patient discharged Performed By: #### L 100.0100, L500.2500 ####[facility] [address] [place], [address] GLU Normal 70-99 [facility] Comment on above: Result Comment: Canc elled via OM: Order cancelled - Patient discharged Performed By: #### L 100.0100, L500.2500 ####[facility] [address] [place], [address] Potassium Normal 3.3-5.1 [facility] Comment on above: Result Comment: Canc elled via OM: Order cancelled - Patient discharged Performed By: #### L 100.0100, L500.2500 ####[facility] [address] [place], [address] Basic Metabolic Profile (BMP) Normal 133-145 [facility] Comment on above: Result Comment: Canc elled via OM: Order cancelled - Patient discharged Performed By: #### L 100.0100, L500.2500 ####[facility] [address] [place], [address] CBC W/Diff, Automatedon 06-0 -2024 Absolute Neut Normal 2.0-7.7 [facility] Comment on above: Result Comment: Canc elled via OM: Order cancelled - Patient discharged Performed By: #### L 100.0100, L500.2500 ####[facility] [address] [place], [address] HCT Normal 37-47 [facility] Comment on above: Result Comment: Canc elled via OM: Order cancelled - Patient discharged Performed By: #### L 100.0100, L500.2500 ####[facility] [address] [place], [address] HGB Normal 12.0-15.0 [facility] Comment on above: Result Comment: Canc elled via OM: Order cancelled - Patient discharged Performed By: #### L 100.0100, L500.2500 ####[facility] [address] [place], [address] MCH Normal 27.0-32.0 [facility] Comment on above: Result Comment: Canc elled via OM: Order cancelled - Patient discharged Performed By: #### L 100.0100, L500.2500 ####[facility] [address] [place], [address] MCHC Normal 32-36 [facility] Comment on above: Result Comment: Canc elled via OM: Order cancelled - Patient discharged Performed By: #### L 100.0100, L500.2500 ####[facility] [address] [place], [address] MCV Normal 81-99 [facility] Comment on above: Result Comment: Canc elled via OM: Order cancelled - Patient discharged Performed By: #### L 100.0100, L500.2500 ####[facility] [address] [place], [address] NEUT% Normal 47-70 [facility] Comment on above: Result Comment: Canc elled via OM: Order cancelled - Patient discharged Performed By: #### L 100.0100, L500.2500 ####[facility] [address] [place], [address] PLT Normal 150-450 [facility] Comment on above: Result Comment: Canc elled via OM: Order cancelled - Patient discharged Performed By: #### L 100.0100, L500.2500 ####[facility] [address] [place], [address] RBC Normal 4.2-5.4 [facility] Comment on above: Result Comment: Canc elled via OM: Order cancelled - Patient discharged Performed By: #### L 100.0100, L500.2500 ####[facility] [address] [place], [address] RDW CV Normal 11.6-14.6 [facility] Comment on above: Result Comment: Canc elled via OM: Order cancelled - Patient discharged Performed By: #### L 100.0100, L500.2500 ####[facility] [address] [place], [address] RDW SD Normal 35.1-43.9 [facility] Comment on above: Result Comment: Canc elled via OM: Order cancelled - Patient discharged Performed By: #### L 100.0100, L500.2500 ####[facility] [address] [place], [address] WBC Normal 4.4-11.0 [facility] Comment on above: Result Comment: Canc elled via OM: Order cancelled - Patient discharged Performed By: #### L 100.0100, L500.2500 ####[facility] [address] [place], [address] Culture, Blood (WB)on 2024 CUB Blood cultures x2, f rom two different sites No growth in 5 days. Normal [facility] Comment on above: Performed By: #### L 300.3900, M200.1000, L500.4050, L300.4310, L503.6005, L501.4021, L100.0100 ####[facility] [address] [place], [address] Basic Metabolic Profile (BMP )on 11-04-2024 BUN Normal 4-19 [facility] Comment on above: Result Comment: Canc elled via OM: Order cancelled - Patient discharged Performed By: #### L 500.2500, L100.0100 ####[facility] [address] [place], [address] BUN/CRE Normal 10-20 [facility] Comment on above: Result Comment: Canc elled via OM: Order cancelled - Patient discharged Performed By: #### L 500.2500, L100.0100 ####[facility] [address] [place], [address] Calcium Normal 7.6-11.0 [facility] Comment on above: Result Comment: Canc elled via OM: Order cancelled - Patient discharged Performed By: #### L 500.2500, L100.0100 ####[facility] [address] [place], [address] CL Normal 98-108 [facility] Comment on above: Result Comment: Canc elled via OM: Order cancelled - Patient discharged Performed By: #### L 500.2500, L100.0100 ####[facility] [address] [place], [address] CO2 Normal 21.0-32.0 [facility] Comment on above: Result Comment: Canc elled via OM: Order cancelled - Patient discharged Performed By: #### L 500.2500, L100.0100 ####[facility] [address] [place], [address] CREAT,SERUM Normal 0.70-1.20 [facility] Comment on above: Result Comment: Canc elled via OM: Order cancelled - Patient discharged Performed By: #### L 500.2500, L100.0100 ####[facility] [address] [place], [address] eGFR Normal >60 [facility] Comment on above: Result Comment: Canc elled via OM: Order cancelled - Patient discharged Performed By: #### L 500.2500, L100.0100 ####[facility] [address] [place], [address] GAP Normal 5-15 [facility] Comment on above: Result Comment: Canc elled via OM: Order cancelled - Patient discharged Performed By: #### L 500.2500, L100.0100 ####[facility] [address] [place], [address] GLU Normal 70-99 [facility] Comment on above: Result Comment: Canc elled via OM: Order cancelled - Patient discharged Performed By: #### L 500.2500, L100.0100 ####[facility] [address] [place], [address] Potassium Normal 3.3-5.1 [facility] Comment on above: Result Comment: Canc elled via OM: Order cancelled - Patient discharged Performed By: #### L 500.2500, L100.0100 ####[facility] [address] [place], [address] Basic Metabolic Profile (BMP) Normal 133-145 [facility] Comment on above: Result Comment: Canc elled via OM: Order cancelled - Patient discharged Performed By: #### L 500.2500, L100.0100 ####[facility] [address] [place], [address] CBC W/Diff, Automatedon 06-0 -2024 Absolute Neut Normal 2.0-7.7 [facility] Comment on above: Result Comment: Canc elled via OM: Order cancelled - Patient discharged Performed By: #### L 500.2500, L100.0100 ####[facility] [address] [place], [address] HCT Normal 37-47 [facility] Comment on above: Result Comment: Canc elled via OM: Order cancelled - Patient discharged Performed By: #### L 500.2500, L100.0100 ####[facility] [address] [place], [address] HGB Normal 12.0-15.0 [facility] Comment on above: Result Comment: Canc elled via OM: Order cancelled - Patient discharged Performed By: #### L 500.2500, L100.0100 ####[facility] [address] [place], [address] MCH Normal 27.0-32.0 [facility] Comment on above: Result Comment: Canc elled via OM: Order cancelled - Patient discharged Performed By: #### L 500.2500, L100.0100 ####[facility] [address] [place], [address] MCHC Normal 32-36 [facility] Comment on above: Result Comment: Canc elled via OM: Order cancelled - Patient discharged Performed By: #### L 500.2500, L100.0100 ####[facility] [address] [place], [address] MCV Normal 81-99 [facility] Comment on above: Result Comment: Canc elled via OM: Order cancelled - Patient discharged Performed By: #### L 500.2500, L100.0100 ####[facility] [address] [place], [address] NEUT% Normal 47-70 [facility] Comment on above: Result Comment: Canc elled via OM: Order cancelled - Patient discharged Performed By: #### L 500.2500, L100.0100 ####[facility] [address] [place], [address] PLT Normal 150-450 [facility] Comment on above: Result Comment: Canc elled via OM: Order cancelled - Patient discharged Performed By: #### L 500.2500, L100.0100 ####[facility] [address] [place], [address] RBC Normal 4.2-5.4 [facility] Comment on above: Result Comment: Canc elled via OM: Order cancelled - Patient discharged Performed By: #### L 500.2500, L100.0100 ####[facility] [address] [place], [address] RDW CV Normal 11.6-14.6 [facility] Comment on above: Result Comment: Canc elled via OM: Order cancelled - Patient discharged Performed By: #### L 500.2500, L100.0100 ####[facility] [address] [place], [address] RDW SD Normal 35.1-43.9 [facility] Comment on above: Result Comment: Canc elled via OM: Order cancelled - Patient discharged Performed By: #### L 500.2500, L100.0100 ####[facility] [address] [place], [address] WBC Normal 4.4-11.0 [facility] Comment on above: Result Comment: Canc elled via OM: Order cancelled - Patient discharged Performed By: #### L 500.2500, L100.0100 ####[facility] [address] [place], [address] Absolute lymphocyte countOrd ered By: Laurameka Sol on 11-03-2024 Lymphocytes Auto (Unsp spec) [#/Vol] 0.32 10*3/uL Low 0.83-4.51 [facility] Absolute neutrophil countOrd ered By: Laurameka Slo on 11-03-2024 Neutrophils (Bld) [#/Vol] 4.1 10*3/uL 2.0-7.7 [facility] Anion gap in Serum or Plasma Ordered By: Laura Sol on 11-03-2024 Anion gap [Moles/Vol] 12 mmol/L 5-15 [facility] Automated lymphocyte count a s percentage of total leukocytesOrdered By: Laura Sol on 11-03-2024 Lymphocytes/100 WBC Auto (Unsp spec) 6.9 % Low 19-41 [facility] BUN/creatinine ratioOrdered By: Laura Sol on 11-03-2024 Urea nitrogen/Creatinine [Mass ratio] 21.9 mg/mg High 10-20 [facility] Basic Metabolic Profile (BMP )on 11-03-2024 BUN/CRE 21.9 RATIO High 10-20 [facility] Comment on above: Performed By: #### L 100.0100, L500.2500 ####[facility] [address] [place], [address] Calcium [Mass/Vol] 9.3 mg/dL Normal 7.6-11.0 [facility] Comment on above: Performed By: #### L 100.0100, L500.2500 ####[facility] [address] [place], [address] Chloride [Moles/Vol] 102 mmol/L Normal 98-108 [facility] Comment on above: Performed By: #### L 100.0100, L500.2500 ####[facility] [address] [place], [address] CO2 [Moles/Vol] 27.4 mmol/L Normal 21.0-32.0 [facility] Comment on above: Performed By: #### L 100.0100, L500.2500 ####[facility] [address] [place], [address] Creatinine [Mass/Vol] 1.63 mg/dL High 0.70-1.20 [facility] Comment on above: Performed By: #### L 100.0100, L500.2500 ####[facility] [address] [place], [address] ECRCL 39.78 ml/min Low 50-250 [facility] Comment on above: Performed By: #### L 100.0100, L500.2500 ####[facility] [address] [place], [address] GAP 12 Normal 5-15 [facility] Comment on above: Performed By: #### L 100.0100, L500.2500 ####[facility] [address] [place], [address] GFR/1.73 sq M.predicted among non-blacks MDRD (S/P/Bld) [Vol rate/Area] 33 mL/min/{1.73_m2} Low >60 [facility] Comment on above: Result Comment: mL/m in/1.73m2 CKD-EPI Creatinine Equation (2020) Performed By: #### L 100.0100, L500.2500 ####[facility] [address] [place], [address] Glucose [Mass/Vol] 118 mg/dL High 70-99 [facility] Comment on above: Performed By: #### L 100.0100, L500.2500 ####[facility] [address] [place], [address] Potassium [Moles/Vol] 4.5 mmol/L Normal 3.3-5.1 [facility] Comment on above: Performed By: #### L 100.0100, L500.2500 ####[facility] [address] [place], [address] Sodium [Moles/Vol] 142 mmol/L Normal 133-145 [facility] Comment on above: Performed By: #### L 100.0100, L500.2500 ####[facility] [address] [place], [address] Urea nitrogen [Mass/Vol] 36 mg/dL High 4-19 [facility] Comment on above: Performed By: #### L 100.0100, L500.2500 ####[facility] [address] [place], [address] Basophil percentageOrdered B y: Laura Sol on 11-03-2024 Basophils/100 WBC (Bld) 0.0 % 0-1 [facility] CBC W/Diff, Automatedon Absolute Lymph 0.32 X10 3/uL Low 0.83-4.51 [facility] Comment on above: Performed By: #### L 100.0100, L500.2500 ####[facility] [address] [place], [address] Absolute Neut 4.1 X10 3/uL Normal 2.0-7.7 [facility] Comment on above: Performed By: #### L 100.0100, L500.2500 ####[facility] [address] [place], [address] Basophils/100 WBC (Bld) 0.0 % Normal 0-1 [facility] Comment on above: Performed By: #### L 100.0100, L500.2500 ####[facility] [address] [place], [address] Eosinophils/100 WBC (Bld) 0.0 % Normal 0-5 [facility] Comment on above: Performed By: #### L 100.0100, L500.2500 ####[facility] [address] [place], [address] Erythrocyte distribution width (RBC) [Ratio] 14.3 % Normal 11.6-14.6 [facility] Comment on above: Performed By: #### L 100.0100, L500.2500 ####[facility] [address] [place], [address] Hematocrit (Bld) [Volume fraction] 32.4 % Low 37-47 [facility] Comment on above: Performed By: #### L 100.0100, L500.2500 ####[facility] [address] [place], [address] Hemoglobin (Bld) [Mass/Vol] 10.3 g/dL Low 12.0-15.0 [facility] Comment on above: Performed By: #### L 100.0100, L500.2500 ####[facility] [address] [place], [address] IG% 0.900 Normal 0.0-0.9 [facility] Comment on above: Result Comment: IG% - Immature Granulocytes (promyelocytes, myelocytes andmetamyelocytes) > 1% indicates that a LEFT SHIFT is Present. Performed By: #### L 100.0100, L500.2500 ####[facility] [address] [place], [address] Lymphocytes/100 WBC (Bld) 6.9 % Low 19-41 [facility] Comment on above: Performed By: #### L 100.0100, L500.2500 ####[facility] [address] [place], [address] MCH (RBC) [Entitic mass] 31.9 pg Normal 27.0-32.0 [facility] Comment on above: Performed By: #### L 100.0100, L500.2500 ####[facility] [address] [place], [address] MCHC (RBC) [Mass/Vol] 31.8 g/dL Low 32-36 [facility] Comment on above: Performed By: #### L 100.0100, L500.2500 ####[facility] [address] [place], [address] MCV (RBC) [Entitic vol] 100.3 fL High 81-99 [facility] Comment on above: Performed By: #### L 100.0100, L500.2500 ####[facility] [address] [place], [address] Monocytes/100 WBC (Bld) 3.9 % Normal 0-10 [facility] Comment on above: Performed By: #### L 100.0100, L500.2500 ####[facility] [address] [place], [address] Neutrophils/100 WBC (Bld) 88.3 % High 47-70 [facility] Comment on above: Performed By: #### L 100.0100, L500.2500 ####[facility] [address] [place], [address] Nucleated RBC (Bld) [#/Vol] 0 10*3/uL Normal 0-5 [facility] Comment on above: Performed By: #### L 100.0100, L500.2500 ####[facility] [address] [place], [address] Platelet mean volume (Bld) [Entitic vol] 10.6 fL Normal 6.2-12.0 [facility] Comment on above: Performed By: #### L 100.0100, L500.2500 ####[facility] [address] [place], [address] Platelets (Bld) [#/Vol] 183 10*3/uL Normal 150-450 [facility] Comment on above: Performed By: #### L 100.0100, L500.2500 ####[facility] [address] [place], [address] RBC (Bld) [#/Vol] 3.23 10*6/uL Low 4.2-5.4 [facility] Comment on above: Performed By: #### L 100.0100, L500.2500 ####[facility] [address] [place], [address] RDW SD 51.2 fl High 35.1-43.9 [facility] Comment on above: Performed By: #### L 100.0100, L500.2500 ####[facility] [address] [place], [address] WBC (Bld) [#/Vol] 4.7 10*3/uL Normal 4.4-11.0 [facility] Comment on above: Performed By: #### L 100.0100, L500.2500 ####[facility] [address] [place], [address] Carbon dioxide, total [Moles /volume] in Central venous bloodOrdered By: Laura Sol on 11-03-2024 CO2 [Moles/Vol] 27.4 mmol/L 21.0-32.0 [facility] Chloride assayOrdered By: Erik Sol on 11-03-2024 Chloride [Moles/Vol] 102 mmol/L 98-108 [facility] Discharge Instructionon 06-0 Discharge Instruction Normal [facility] Eosinophil percentageOrdered By: Laura Sol on 11-03-2024 Eosinophils/100 WBC (Bld) 0.0 % 0-5 [facility] Erythrocyte distribution wid th ratioOrdered By: Laura Sol on 11-03-2024 Erythrocyte distribution width (RBC) [Ratio] 14.3 % 11.6-14.6 [facility] Erythrocyte distribution wid th standard deviationOrdered By: Laura Sol on 11-03-2024 Erythrocyte distribution width (RBC) [Ratio] 51.2 fl High 35.1-43.9 [facility] Glomerular filtration rate ( GFR) estimation/1.73 sq m using serum, plasma, or whole bOrdered By: Laurameka Sol on 11-03-2024 GFR/1.73 sq M.predicted among non-blacks MDRD (S/P/Bld) [Vol rate/Area] 33 mL/min/{1.73_m2} Low >60 [facility] Comment on above: mL/min/1.73m2 CKD-EP I Creatinine Equation (2020) Hematocrit Auto (Bld) [Volum e fraction]Ordered By: Laura Sol 11-03-2024 Hematocrit (Bld) [Volume fraction] 32.4 % Low 37-47 [facility] Hemoglobin measurementOrdere d By: [facility] 11-03-2024 Hemoglobin (Bld) [Mass/Vol] 10.3 g/dL Low 12.0-15.0 [facility] Immature granulocytes/100 WB C Auto (Bld)Ordered By: Laura Sol 11-03-2024 Immature granulocytes/100 WBC (Bld) 0.900 % 0.0-0.9 [facility] Comment on above: IG% - Immature Granu locytes (promyelocytes, myelocytes and metamyelocytes) > 1% indicates that a LEFT SHIFT is Present. MCV (mean corpuscular volume ) determinationOrdered By: Laura Sol 11-03-2024 MCV (RBC) [Entitic vol] 100.3 fL High 81-99 [facility] Mean corpuscular hemoglobin (MCH) determinationOrdered By: Laura Sol 11-03-2024 MCH (RBC) [Entitic mass] 31.9 pg 27.0-32.0 [facility] Mean corpuscular hemoglobin concentration (MCHC) determinationOrdered By: Laura Sol on 11-03-2024 MCHC (RBC) [Mass/Vol] 31.8 g/dL Low 32-36 [facility] Mean platelet volume determi nationOrdered By: Laura Sol on 11-03-2024 Platelet mean volume (Bld) [Entitic vol] 10.6 fL 6.2-12.0 [facility] Monocyte percentageOrdered B y: Laura Sol on 11-03-2024 Monocytes/100 WBC (Bld) 3.9 % 0-10 [facility] Neutrophil percentageOrdered By: Laura Sol on 11-03-2024 Neutrophils/100 WBC (Bld) 88.3 % High 47-70 [facility] Nucleated red blood cell per centageOrdered By: Laura Sol on 11-03-2024 Nucleated RBC/100 WBC (Bld) [Ratio] 0 % 0-5 [facility] Platelet countOrdered By: Na erik Sol on 11-03-2024 Platelets (Bld) [#/Vol] 183 10*3/uL 150-450 [facility] Potassium measurement (mass/ volume)Ordered By: Laura Sol on 11-03-2024 Potassium (Unsp spec) [Mass/Vol] 4.5 mmol/L 3.3-5.1 [facility] RBC Auto (Bld) [#/Vol]Ordere d By: Laura Sol on 11-03-2024 RBC (Bld) [#/Vol] 3.23 10*6/uL Low 4.2-5.4 [facility] Serum creatinine measurement (mass/volume)Ordered By: Laura Sol on 11-03-2024 Creatinine [Mass/Vol] 1.63 mg/dL High 0.70-1.20 [facility] Serum glucose measurement (m ass/volume)Ordered By: Laura Sol on 11-03-2024 Glucose [Mass/Vol] 118 mg/dL High 70-99 [facility] Serum or plasma calcium reese urement (mass/volume)Ordered By: Laura Sol on 11-03-2024 Calcium [Mass/Vol] 9.3 mg/dL 7.6-11.0 [facility] Serum or plasma urea nitroge n measurement (mass/volume)Ordered By: Laura Sol on 11-03-2024 Urea nitrogen [Mass/Vol] 36 mg/dL High 4-19 [facility] Sodium levelOrdered By: Laura Sol on 11-03-2024 Sodium [Moles/Vol] 142 mmol/L 133-145 [facility] White blood cell (WBC) count Ordered By: Laura Sol on 11-03-2024 WBC (Bld) [#/Vol] 4.7 10*3/uL 4.4-11.0 [facility] Basic Metabolic Profile (BMP )on 11-02-2024 BUN/CRE 21.9 RATIO High 10-20 [facility] Comment on above: Performed By: #### L 100.0100, L500.2500 ####[facility] [address] [place], [address] Calcium [Mass/Vol] 8.5 mg/dL Normal 7.6-11.0 [facility] Comment on above: Performed By: #### L 100.0100, L500.2500 ####[facility] [address] [place], [address] Chloride [Moles/Vol] 104 mmol/L Normal 98-108 [facility] Comment on above: Performed By: #### L 100.0100, L500.2500 ####[facility] [address] [place], [address] CO2 [Moles/Vol] 25.5 mmol/L Normal 21.0-32.0 [facility] Comment on above: Performed By: #### L 100.0100, L500.2500 ####[facility] [address] [place], [address] Creatinine [Mass/Vol] 1.65 mg/dL High 0.70-1.20 [facility] Comment on above: Performed By: #### L 100.0100, L500.2500 ####[facility] [address] [place], [address] ECRCL 39.26 ml/min Low 50-250 [facility] Comment on above: Performed By: #### L 100.0100, L500.2500 ####[facility] [address] [place], [address] GAP 11 Normal 5-15 [facility] Comment on above: Performed By: #### L 100.0100, L500.2500 ####[facility] [address] [place], [address] GFR/1.73 sq M.predicted among non-blacks MDRD (S/P/Bld) [Vol rate/Area] 33 mL/min/{1.73_m2} Low >60 [facility] Comment on above: Result Comment: mL/m in/1.73m2 CKD-EPI Creatinine Equation (2020) Performed By: #### L 100.0100, L500.2500 ####[facility] [address] [place], [address] Glucose [Mass/Vol] 131 mg/dL High 70-99 [facility] Comment on above: Performed By: #### L 100.0100, L500.2500 ####[facility] [address] [place], [address] Potassium [Moles/Vol] 4.9 mmol/L Normal 3.3-5.1 [facility] Comment on above: Performed By: #### L 100.0100, L500.2500 ####[facility] [address] [place], [address] Sodium [Moles/Vol] 141 mmol/L Normal 133-145 [facility] Comment on above: Performed By: #### L 100.0100, L500.2500 ####[facility] [address] [place], [address] Urea nitrogen [Mass/Vol] 36 mg/dL High 4-19 [facility] Comment on above: Performed By: #### L 100.0100, L500.2500 ####[facility] [address] [place], [address] CBC W/Diff, Automatedon 06-0 5-2025 Absolute Lymph 0.34 X10 3/uL Low 0.83-4.51 [facility] Comment on above: Performed By: #### L 100.0100, L500.2500 ####[facility] [address] [place], [address] Absolute Neut 4.0 X10 3/uL Normal 2.0-7.7 [facility] Comment on above: Performed By: #### L 100.0100, L500.2500 ####[facility] [address] [place], [address] Basophils/100 WBC (Bld) 0.0 % Normal 0-1 [facility] Comment on above: Performed By: #### L 100.0100, L500.2500 ####[facility] [address] [place], [address] Eosinophils/100 WBC (Bld) 0.0 % Normal 0-5 [facility] Comment on above: Performed By: #### L 100.0100, L500.2500 ####[facility] [address] [place], [address] Erythrocyte distribution width (RBC) [Ratio] 14.0 % Normal 11.6-14.6 [facility] Comment on above: Performed By: #### L 100.0100, L500.2500 ####[facility] [address] [place], [address] Hematocrit (Bld) [Volume fraction] 29.3 % Low 37-47 [facility] Comment on above: Performed By: #### L 100.0100, L500.2500 ####[facility] [address] [place], [address] Hemoglobin (Bld) [Mass/Vol] 9.2 g/dL Low 12.0-15.0 [facility] Comment on above: Performed By: #### L 100.0100, L500.2500 ####[facility] [address] [place], [address] IG% 0.900 Normal 0.0-0.9 [facility] Comment on above: Result Comment: IG% - Immature Granulocytes (promyelocytes, myelocytes andmetamyelocytes) > 1% indicates that a LEFT SHIFT is Present. Performed By: #### L 100.0100, L500.2500 ####[facility] [address] [place], [address] Lymphocytes/100 WBC (Bld) 7.4 % Low 19-41 [facility] Comment on above: Performed By: #### L 100.0100, L500.2500 ####[facility] [address] [place], [address] MCH (RBC) [Entitic mass] 31.9 pg Normal 27.0-32.0 [facility] Comment on above: Performed By: #### L 100.0100, L500.2500 ####[facility] [address] [place], [address] MCHC (RBC) [Mass/Vol] 31.4 g/dL Low 32-36 [facility] Comment on above: Performed By: #### L 100.0100, L500.2500 ####[facility] [address] [place], [address] MCV (RBC) [Entitic vol] 101.7 fL High 81-99 [facility] Comment on above: Performed By: #### L 100.0100, L500.2500 ####[facility] [facility] [address] [place], [address] Monocytes/100 WBC (Bld) 4.8 % Normal 0-10 [facility] Comment on above: Performed By: #### L 100.0100, L500.2500 ####[facility] [address] [place], [address] Neutrophils/100 WBC (Bld) 86.9 % High 47-70 [facility] Comment on above: Performed By: #### L 100.0100, L500.2500 ####[facility] [address] [place], [address] Nucleated RBC (Bld) [#/Vol] 0 10*3/uL Normal 0-5 [facility] Comment on above: Performed By: #### L 100.0100, L500.2500 ####[facility] [address] [place], [address] Platelet mean volume (Bld) [Entitic vol] 10.8 fL Normal 6.2-12.0 [facility] Comment on above: Performed By: #### L 100.0100, L500.2500 ####[facility] [address] [place], [address] Platelets (Bld) [#/Vol] 162 10*3/uL Normal 150-450 [facility] Comment on above: Performed By: #### L 100.0100, L500.2500 ####[facility] [address] [place], [address] RBC (Bld) [#/Vol] 2.88 10*6/uL Low 4.2-5.4 [facility] Comment on above: Performed By: #### L 100.0100, L500.2500 ####[facility] [address] [place], [address] RDW SD 51.2 fl High 35.1-43.9 [facility] Comment on above: Performed By: #### L 100.0100, L500.2500 ####[facility] [address] [place], [address] WBC (Bld) [#/Vol] 4.6 10*3/uL Normal 4.4-11.0 [facility] Comment on above: Performed By: #### L 100.0100, L500.2500 ####[facility] [address] [place], [address] Urine Cultureon 11-02-2024 [facility] Mixed Gram Positive Organisms Outing Count 50,000-80,000 MIXC Mixed contaminants. Submit a new specimen if indicated. Normal [facility] Comment on above: Performed By: #### M 100.2200, L400.0001, M100.678 ####[facility] [address] [place], [address] Assessment of wrist artery p atency prior to arterial punctureOrdered By: Zhane Stone on 11-01-2024 Arterial patency Wrist artery --pre arterial puncture Positive [facility] Bilirubin, totalOrdered By: Zhane Stone on 11-01-2024 Bilirubin [Mass/Vol] 0.16 mg/dL 0.00-1.30 [facility] Blood Gases by CPSon 025 RHIANNON TEST Positive Normal [facility] Comment on above: Performed By: #### L 9000.0800 ####[facility] [address] [place], [address] Base excess Calc (Bld) [Moles/Vol] 5 mmol/L High -2 to +2 [facility] Comment on above: Performed By: #### L 9000.0800 ####[facility] [address] [place], [address] Blood Gas Type ART Normal [facility] Comment on above: Performed By: #### L 9000.0800 ####[facility] [address] [place], [address] CO2 [Moles/Vol] 34 mmol/L Normal [facility] Comment on above: Performed By: #### L 9000.0800 ####[facility] [address] [place], [address] FI02 35.0 Normal [facility] Comment on above: Performed By: #### L 9000.0800 ####[facility] [address] [place], [address] HCO3 (Bld) [Moles/Vol] 31.4 mmol/L High 22-26 [facility] Comment on above: Performed By: #### L 9000.0800 ####[facility] [address] [place], [address] Mode AVAPS Normal [facility] Comment on above: Performed By: #### L 9000.0800 ####[facility] [address] [place], [address] O2 Delivery Dev BiPAP Normal [facility] Comment on above: Performed By: #### L 9000.0800 ####[facility] [address] [place], [address] pCO2 68.3 mmHg Invalid Interpretation Code 35-45 [facility] Comment on above: Performed By: #### L 9000.0800 ####[facility] [address] [place], [address] PEEP 10 Normal [facility] Comment on above: Performed By: #### L 9000.0800 ####[facility] [address] [place], [address] pH (Bld) 7.27 [pH] Low 7.35-7.45 [facility] Comment on above: Performed By: #### L 9000.0800 ####[facility] [address] [place], [address] PIP 28 Normal [facility] Comment on above: Performed By: #### L 9000.0800 ####[facility] [address] [place], [address] PO2 79 mmHG Normal 75-100 [facility] Comment on above: Performed By: #### L 9000.0800 ####[facility] [address] [place], [address] Read Back By Yes [facility] Comment on above: Performed By: #### L 9000.0800 ####[facility] [address] [place], [address] RIVERA [facility] Comment on above: Performed By: #### L 9000.0800 ####[facility] [address] [place], [address] RR 16 Normal [facility] Comment on above: Performed By: #### L 9000.0800 ####[facility] [address] [place], [address] SITE R Radial Normal [facility] Comment on above: Performed By: #### L 9000.0800 ####[facility] [address] [place], [address] SO2 93 Low 95-99 [facility] Comment on above: Performed By: #### L 9000.0800 ####[facility] [address] [place], [address] Time Given 05:36:18 [facility] Comment on above: Performed By: #### L 9000.0800 ####[facility] [address] [place], [address] Vt 500.0 mL [facility] Comment on above: Performed By: #### L 9000.0800 ####[facility] [address] [place], [address] RHIANNON TEST Positive Normal [facility] Comment on above: Performed By: #### L 9000.0800 ####[facility] [address] [place], [address] Base excess Calc (Bld) [Moles/Vol] 2 mmol/L Normal -2 to +2 [facility] Comment on above: Performed By: #### L 9000.0800 ####[facility] [address] [place], [address] Blood Gas Type ART Normal [facility] Comment on above: Performed By: #### L 9000.0800 ####[facility] [address] [place], [address] CO2 [Moles/Vol] 31 mmol/L Normal [facility] Comment on above: Performed By: #### L 9000.0800 ####[facility] [address] [place], [address] FI02 35.0 Normal [facility] Comment on above: Performed By: #### L 9000.0800 ####[facility] [address] [place], [address] HCO3 (Bld) [Moles/Vol] 29.4 mmol/L High 22-26 [facility] Comment on above: Performed By: #### L 9000.0800 ####[facility] [address] [place], [address] Mode AVAPS Normal [facility] Comment on above: Performed By: #### L 9000.0800 ####[facility] [address] [place], [address] O2 Delivery Dev BiPAP Normal [facility] Comment on above: Performed By: #### L 9000.0800 ####[facility] [address] [place], [address] pCO2 66.6 mmHg High 35-45 [facility] Comment on above: Performed By: #### L 9000.0800 ####[facility] [address] [place], [address] PEEP 10 Normal [facility] Comment on above: Performed By: #### L 9000.0800 ####[facility] [address] [place], [address] pH (Bld) 7.25 [pH] Low 7.35-7.45 [facility] Comment on above: Performed By: #### L 9000.0800 ####[facility] [address] [place], [address] PIP 23 Normal [facility] Comment on above: Performed By: #### L 9000.0800 ####[facility] [address] [place], [address] PO2 71 mmHG Low 75-100 [facility] Comment on above: Performed By: #### L 9000.0800 ####[facility] [address] [place], [address] RR 16 Normal [facility] Comment on above: Performed By: #### L 9000.0800 ####[facility] [address] [place], [address] SITE L Radial Normal [facility] Comment on above: Performed By: #### L 9000.0800 ####[facility] [address] [place], [address] SO2 91 Low 95-99 [facility] Comment on above: Performed By: #### L 9000.0800 ####[facility] [address] [place], [address] Vt 500.0 mL Normal [facility] Comment on above: Performed By: #### L 9000.0800 ####[facility] [address] [place], [address] Blood base excess determinat ionOrdered By: Zhane Stone on 11-01-2024 Base excess Calc (BldV) [Moles/Vol] 5 mmol/L High -2-2 [facility] Blood bicarbonate measuremen tOrdered By: Zhane Stone on 11-01-2024 HCO3 (Bld) [Moles/Vol] 31.4 mmol/L High 22-26 [facility] CBC W/Diff, Automatedon 06-0 Absolute Lymph 0.33 X10 3/uL Low 0.83-4.51 [facility] Comment on above: Performed By: #### L 500.4050, L100.0100, L501.2300, L501.5200 ####[facility] [address] [place], [address] Absolute Neut 4.0 X10 3/uL Normal 2.0-7.7 [facility] Comment on above: Performed By: #### L 500.4050, L100.0100, L501.2300, L501.5200 ####[facility] [address] [place], [address] Basophils/100 WBC (Bld) 0.2 % Normal 0-1 [facility] Comment on above: Performed By: #### L 500.4050, L100.0100, L501.2300, L501.5200 ####[facility] [address] [place], [address] Eosinophils/100 WBC (Bld) 0.0 % Normal 0-5 [facility] Comment on above: Performed By: #### L 500.4050, L100.0100, L501.2300, L501.5200 ####[facility] [address] [place], [address] Erythrocyte distribution width (RBC) [Ratio] 14.1 % Normal 11.6-14.6 [facility] Comment on above: Performed By: #### L 500.4050, L100.0100, L501.2300, L501.5200 ####[facility] [address] [place], [address] Hematocrit (Bld) [Volume fraction] 28.8 % Low 37-47 [facility] Comment on above: Performed By: #### L 500.4050, L100.0100, L501.2300, L501.5200 ####[facility] [address] [place], [address] Hemoglobin (Bld) [Mass/Vol] 8.9 g/dL Low 12.0-15.0 [facility] Comment on above: Performed By: #### L 500.4050, L100.0100, L501.2300, L501.5200 ####[facility] [address] [place], [address] IG% 0.700 Normal 0.0-0.9 [facility] Comment on above: Result Comment: IG% - Immature Granulocytes (promyelocytes, myelocytes andmetamyelocytes) > 1% indicates that a LEFT SHIFT is Present. Performed By: #### L 500.4050, L100.0100, L501.2300, L501.5200 ####[facility] [address] [place], [address] Lymphocytes/100 WBC (Bld) 7.3 % Low 19-41 [facility] Comment on above: Performed By: #### L 500.4050, L100.0100, L501.2300, L501.5200 ####[facility] [address] [place], [address] MCH (RBC) [Entitic mass] 31.7 pg Normal 27.0-32.0 [facility] Comment on above: Performed By: #### L 500.4050, L100.0100, L501.2300, L501.5200 ####[facility] [address] [place], [address] MCHC (RBC) [Mass/Vol] 30.9 g/dL Low 32-36 [facility] Comment on above: Performed By: #### L 500.4050, L100.0100, L501.2300, L501.5200 ####[facility] [address] [place], [address] MCV (RBC) [Entitic vol] 102.5 fL High 81-99 [facility] Comment on above: Performed By: #### L 500.4050, L100.0100, L501.2300, L501.5200 ####[facility] [address] [place], [address] Monocytes/100 WBC (Bld) 2.9 % Normal 0-10 [facility] Comment on above: Performed By: #### L 500.4050, L100.0100, L501.2300, L501.5200 ####[facility] [address] [place], [address] Neutrophils/100 WBC (Bld) 88.9 % High 47-70 [facility] Comment on above: Performed By: #### L 500.4050, L100.0100, L501.2300, L501.5200 ####[facility] [address] [place], [address] Nucleated RBC (Bld) [#/Vol] 0 10*3/uL Normal 0-5 [facility] Comment on above: Performed By: #### L 500.4050, L100.0100, L501.2300, L501.5200 ####[facility] [address] [place], [address] Platelet mean volume (Bld) [Entitic vol] 10.5 fL Normal 6.2-12.0 [facility] Comment on above: Performed By: #### L 500.4050, L100.0100, L501.2300, L501.5200 ####[facility] [address] [place], [address] Platelets (Bld) [#/Vol] 142 10*3/uL Low 150-450 [facility] Comment on above: Performed By: #### L 500.4050, L100.0100, L501.2300, L501.5200 ####[facility] [address] [place], [address] RBC (Bld) [#/Vol] 2.81 10*6/uL Low 4.2-5.4 [facility] Comment on above: Performed By: #### L 500.4050, L100.0100, L501.2300, L501.5200 ####[facility] [address] [place], [address] RDW SD 52.5 fl High 35.1-43.9 [facility] Comment on above: Performed By: #### L 500.4050, L100.0100, L501.2300, L501.5200 ####[facility] [address] [place], [address] WBC (Bld) [#/Vol] 4.5 10*3/uL Normal 4.4-11.0 [facility] Comment on above: Performed By: #### L 500.4050, L100.0100, L501.2300, L501.5200 ####[facility] [address] [place], [address] Comprehensive Metabolic Prof [facility] 11-01-2024 Albumin [Mass/Vol] 3.2 g/dL Low 3.4-4.8 [facility] Comment on above: Performed By: #### L 500.4050, L100.0100, L501.2300, L501.5200 ####[facility] [address] [place], [address] Albumin/Globulin [Mass ratio] 1.1 {ratio} Normal 0.9-2.4 [facility] Comment on above: Performed By: #### L 500.4050, L100.0100, L501.2300, L501.5200 ####[facility] [address] [place], [address] ALK PHOS 58 U/L Normal 35-104 [facility] Comment on above: Performed By: #### L 500.4050, L100.0100, L501.2300, L501.5200 ####[facility] [address] [place], [address] ALT [Catalytic activity/Vol] 6 U/L Normal <=34 [facility] Comment on above: Performed By: #### L 500.4050, L100.0100, L501.2300, L501.5200 ####[facility] [address] [place], [address] AST [Catalytic activity/Vol] 13 U/L Normal <=31 [facility] Comment on above: Performed By: #### L 500.4050, L100.0100, L501.2300, L501.5200 ####[facility] [address] [place], [address] Bilirubin [Mass/Vol] 0.16 mg/dL Normal 0.00-1.30 [facility] Comment on above: Performed By: #### L 500.4050, L100.0100, L501.2300, L501.5200 ####[facility] [address] [place], [address] BUN/CRE 18.0 RATIO Normal 10-20 [facility] Comment on above: Performed By: #### L 500.4050, L100.0100, L501.2300, L501.5200 ####[facility] [address] [place], [address] Calcium [Mass/Vol] 8.6 mg/dL Normal 7.6-11.0 [facility] Comment on above: Performed By: #### L 500.4050, L100.0100, L501.2300, L501.5200 ####[facility] [address] [place], [address] Chloride [Moles/Vol] 104 mmol/L Normal 98-108 [facility] Comment on above: Performed By: #### L 500.4050, L100.0100, L501.2300, L501.5200 ####[facility] [address] [place], [address] CO2 [Moles/Vol] 25.3 mmol/L Normal 21.0-32.0 [facility] Comment on above: Performed By: #### L 500.4050, L100.0100, L501.2300, L501.5200 ####[facility] [address] [place], [address] Creatinine [Mass/Vol] 1.61 mg/dL High 0.70-1.20 [facility] Comment on above: Performed By: #### L 500.4050, L100.0100, L501.2300, L501.5200 ####[facility] [address] [place], [address] ECRCL 40.47 ml/min Low 50-250 [facility] Comment on above: Performed By: #### L 500.4050, L100.0100, L501.2300, L501.5200 ####[facility] [address] [place], [address] GAP 9 Normal 5-15 [facility] Comment on above: Performed By: #### L 500.4050, L100.0100, L501.2300, L501.5200 ####[facility] [address] [place], [address] GFR/1.73 sq M.predicted among non-blacks MDRD (S/P/Bld) [Vol rate/Area] 34 mL/min/{1.73_m2} Low >60 [facility] Comment on above: Result Comment: mL/m in/1.73m2 CKD-EPI Creatinine Equation (2020) Performed By: #### L 500.4050, L100.0100, L501.2300, L501.5200 ####[facility] [address] [place], [address] Globulin (S) [Mass/Vol] 2.9 g/dL Normal 2.2-4.2 [facility] Comment on above: Performed By: #### L 500.4050, L100.0100, L501.2300, L501.5200 ####[facility] [address] [place], [address] Glucose [Mass/Vol] 121 mg/dL High 70-99 [facility] Comment on above: Performed By: #### L 500.4050, L100.0100, L501.2300, L501.5200 ####[facility] [address] [place], [address] Potassium [Moles/Vol] 5.0 mmol/L Normal 3.3-5.1 [facility] Comment on above: Performed By: #### L 500.4050, L100.0100, L501.2300, L501.5200 ####[facility] [address] [place], [address] Sodium [Moles/Vol] 138 mmol/L Normal 133-145 [facility] Comment on above: Performed By: #### L 500.4050, L100.0100, L501.2300, L501.5200 ####[facility] [address] [place], [address] T PROT 6.1 g/dL Normal 5.9-8.4 [facility] Comment on above: Performed By: #### L 500.4050, L100.0100, L501.2300, L501.5200 ####[facility] [address] [place], [address] Urea nitrogen [Mass/Vol] 29 mg/dL High 4-19 [facility] Comment on above: Performed By: #### L 500.4050, L100.0100, L501.2300, L501.5200 ####[facility] [address] [place], [address] Echocardiogram study reportO rdered By: Michelle Gonzales on 11-01-2024 Study report [facility] [address] [place] [address] Echo Complete W/ Contrast 11/01/24 0855 MR#: [id number] Acct: [id number] Name: DESIRE CHAUDHRY Rep #:[id number] : 1950 73 From: Michelle Gonzales MD [...] Dictated: 11/01/24 0855 Date Transcribed: 11/01/24 1204 Maintenance Inspector: Signed [facility] Work Phone: Laboratory - Chemistry and C hemistry - challengeOrdered By: Zhane Stone on 11-01-2024 AST [Catalytic activity/Vol] 13 U/L <32 [facility] Magnesiumon 11-01-2024 Magnesium [Mass/Vol] 2.0 mg/dL Normal 1.5-2.2 [facility] Comment on above: Performed By: #### L 500.4050, L100.0100, L501.2300, L501.5200 ####[facility] [address] [place], [place], [id number] Magnesium measurement (mass/ volume)Ordered By: Zhane Stone on 11-01-2024 Magnesium (Unsp spec) [Mass/Vol] 2.0 mg/dL 1.5-2.2 [facility] Measurement, pHOrdered By: Ronan Stone on 11-01-2024 pH (Unsp spec) 7.27 [pH] Low 7.35-7.45 [facility] No Panel InformationOrdered By: Zhane Stone on 11-01-2024 Bedside Blood Gas PEEP 10 [facility] Bld Gas Crit Called To/Read Back By Yes [facility] Bld Gas Peak Inspiratory Pressure 28 [facility] Blood Gas Notified Time 05:36:18 [facility] Blood Gas Notified Whom DR RIVERA [facility] Blood Gas Respiration Rate 16 [facility] Blood Gas Sample Site R Radial [facility] Blood Gas Specimen Type ART [facility] Blood Gas Tidal Volume 500.0 mL [facility] Blood Gas Vent Mode AVAPS [facility] Oxygen Delivery Device BiPAP [facility] Phosphoruson 11-01-2024 Phosphate [Mass/Vol] 3.7 mg/dL Normal 2.7-4.5 [facility] Comment on above: Performed By: #### L 500.4050, L100.0100, L501.2300, L501.5200 ####[facility] [address] [place], [place], [id number] RESPIRATORY PANEL MOLECULARo n 11-01-2024 RP PANEL Normal [facility] Comment on above: Performed By: #### M 100.638 ####[facility] [address] [place], [place], [id number] Serum globulin measurementOr dered By: Zhane Stone on 11-01-2024 Globulin (S) [Mass/Vol] 2.9 g/dL 2.2-4.2 [facility] Serum or plasma alanine centeno otransferase (ALT) measurementOrdered By: Zhane Stone on 11-01-2024 ALT [Catalytic activity/Vol] 6 U/L <35 [facility] Serum or plasma albumin reese urement (mass/volume)Ordered By: Zhane Stone on 11-01-2024 Albumin [Mass/Vol] 3.2 g/dL Low 3.4-4.8 [facility] Serum or plasma albumin/glob ulin mass ratioOrdered By: Zhane Stone on 11-01-2024 Albumin/Globulin [Mass ratio] 1.1 {ratio} 0.9-2.4 [facility] Serum or plasma alkaline sohail sphatase measurementOrdered By: Zhane Stone on 11-01-2024 ALP [Catalytic activity/Vol] 58 U/L 35-104 [facility] Total carbon dioxide measure mentOrdered By: Zhane Stone on 11-01-2024 CO2 [Moles/Vol] 34 mmol/L [facility] Total proteinOrdered By: Darlene Stone on 11-01-2024 Protein [Mass/Vol] 6.1 g/dL 5.9-8.4 [facility] 12 Lead EKGon 10-31-2024 12 Lead EKG Normal [facility] Absolute lymphocyte countOrd ered By: Janak Hernandez on 10-31-2024 Lymphocytes Auto (Unsp spec) [#/Vol] 0.49 10*3/uL Low 0.83-4.51 [facility] Absolute neutrophil countOrd ered By: Janak Hernandez on 10-31-2024 Neutrophils (Bld) [#/Vol] 3.8 10*3/uL 2.0-7.7 [facility] Activated partial thrombopla stin time (aPTT) in platelet poor plasma by coagulation aOrdered By: Janak Hernandez on 10-31-2024 aPTT Coag (PPP) [Time] 32.4 s 24.1-36.2 [facility] Amorphous sediment detection in urine sediment by light microscopyOrdered By: Janak Hernandez on 10-31-2024 Amorphous sediment LM Ql (Urine sed) 3+ [facility] Anion gap in Serum or Plasma Ordered By: Janak Hernandez on 10-31-2024 Anion gap [Moles/Vol] 9 mmol/L 5-15 [facility] Assessment of wrist artery p atency prior to arterial punctureOrdered By: Janak Hernandez on 10-31-2024 Arterial patency Wrist artery --pre arterial puncture Positive [facility] Automated lymphocyte count a s percentage of total leukocytesOrdered By: Janak Hernandez on 10-31-2024 Lymphocytes/100 WBC Auto (Unsp spec) 10.1 % Low 19-41 [facility] BUN/creatinine ratioOrdered By: Janak Hernandez on 10-31-2024 Urea nitrogen/Creatinine [Mass ratio] 15.8 mg/mg 10-20 [facility] Basophil percentageOrdered B y: Janak Hernandez on 10-31-2024 Basophils/100 WBC (Bld) 0.2 % 0-1 [facility] Bilirubin Test strip Ql (U)O rdered By: Janak Hernandez on 10-31-2024 Bilirubin Ql (U) Negative Negative [facility] Bilirubin, totalOrdered By: Janak Hernandez on 10-31-2024 Bilirubin [Mass/Vol] 0.17 mg/dL 0.00-1.30 [facility] Blood Gases by CPSon 025 RHIANNON TEST Positive Normal [facility] Comment on above: Performed By: #### L 9000.0800 ####[facility] [address] [place], [address] Base excess Calc (Bld) [Moles/Vol] 7 mmol/L High -2 to +2 [facility] Comment on above: Performed By: #### L 9000.0800 ####[facility] [address] [place], [address] Blood Gas Type ART Normal [facility] Comment on above: Performed By: #### L 9000.0800 ####[facility] [address] [place], [address] CO2 [Moles/Vol] 37 mmol/L Normal [facility] Comment on above: Performed By: #### L 9000.0800 ####[facility] [address] [place], [address] FI02 5.0 Normal [facility] Comment on above: Performed By: #### L 9000.08 ####[facility] [address] [place], [address] HCO3 (Bld) [Moles/Vol] 34.2 mmol/L High 22-26 [facility] Comment on above: Performed By: #### L 9000.0800 ####[facility] [address] [place], [address] Mode Not entered Normal [facility] Comment on above: Performed By: #### L 9000.0800 ####[facility] [address] [place], [address] O2 Delivery Dev Cannula Normal [facility] Comment on above: Performed By: #### L 9000.0800 ####[facility] [address] [place], [address] pCO2 77.3 mmHg Invalid Interpretation Code 35-45 [facility] Comment on above: Performed By: #### L 9000.0800 ####[facility] [address] [place], [address] pH (Bld) 7.25 [pH] Low 7.35-7.45 [facility] Comment on above: Performed By: #### L 9000.0800 ####[facility] [address] [place], [address] PO2 53 mmHG Low 75-100 [facility] Comment on above: Performed By: #### L 9000.0800 ####[facility] [address] [place], [address] Read Back By Yes [facility] Comment on above: Performed By: #### L 9000.0800 ####[facility] [address] [place], [address] Results To Chase [facility] Comment on above: Performed By: #### L 9000.0800 ####[facility] [address] [place], [address] SITE L Radial Normal [facility] Comment on above: Performed By: #### L 8999.799 ####[facility] [address] [place], [address] SO2 79 Low 95-99 [facility] Comment on above: Performed By: #### L 8999.08 ####[facility] [address] [place], [address] Time Given 21:33:07 Normal [facility] Comment on above: Performed By: #### L 8999.08 ####[facility] [address] [place], [address] RHIANNON TEST Positive Normal [facility] Comment on above: Performed By: #### L 8999.08 ####[facility] [address] [place], [address] Base excess Calc (Bld) [Moles/Vol] 0 mmol/L Normal -2 to +2 [facility] Comment on above: Performed By: #### L 8999.08 ####[facility] [address] [place], [address] Blood Gas Type ART Normal [facility] Comment on above: Performed By: #### L 8999.08 ####[facility] [address] [place], [address] CO2 [Moles/Vol] 31 mmol/L Normal [facility] Comment on above: Performed By: #### L 8999.08 ####[facility] [address] [place], [address] FI02 25.0 Normal [facility] Comment on above: Performed By: #### L 8999.0800 ####[facility] [address] [place], [address] HCO3 (Bld) [Moles/Vol] 28.6 mmol/L High 22-26 [facility] Comment on above: Performed By: #### L 9000.0800 ####[facility] [address] [place], [address] Mode Not entered Normal [facility] Comment on above: Performed By: #### L 9000.0800 ####[facility] [address] [place], [address] O2 Delivery Dev BiPAP Normal [facility] Comment on above: Performed By: #### L 9000.0800 ####[facility] [address] [place], [address] pCO2 76.9 mmHg Invalid Interpretation Code 35-45 [facility] Comment on above: Performed By: #### L 9000.0800 ####[facility] [address] [place], [address] pH (Bld) 7.18 [pH] Invalid Interpretation Code 7.35-7.45 [facility] Comment on above: Performed By: #### L 9000.0800 ####[facility] [address] [place], [address] PO2 59 mmHG Low 75-100 [facility] Comment on above: Performed By: #### L 9000.0800 ####[facility] [address] [place], [address] Read Back By Yes Normal [facility] Comment on above: Performed By: #### L 9000.0800 ####[facility] [address] [place], [address] Results To hernandez Normal [facility] Comment on above: Performed By: #### L 9000.0800 ####[facility] [address] [place], [address] SITE L Radial Normal [facility] Comment on above: Performed By: #### L 9000.0800 ####[facility] [address] [place], [address] SO2 82 Low 95-99 [facility] Comment on above: Performed By: #### L 9000.0800 ####[facility] [address] [place], [address] Time Given 17:27:12 [facility] Comment on above: Performed By: #### L 9000.0800 ####[facility] [address] [place], [address] RHIANNON TEST Positive Normal [facility] Comment on above: Performed By: #### L 9000.0800 ####[facility] [address] [place], [address] Base excess Calc (Bld) [Moles/Vol] 4 mmol/L High -2 to +2 [facility] Comment on above: Performed By: #### L 9000.0800 ####[facility] [address] [place], [address] Blood Gas Type ART Normal [facility] Comment on above: Performed By: #### L 9000.0800 ####[facility] [address] [place], [address] CO2 [Moles/Vol] 35 mmol/L Normal [facility] Comment on above: Performed By: #### L 9000.0800 ####[facility] [address] [place], [address] FI02 2.0 Normal [facility] Comment on above: Performed By: #### L 9000.0800 ####[facility] [address] [place], [address] HCO3 (Bld) [Moles/Vol] 32.5 mmol/L High 22-26 [facility] Comment on above: Performed By: #### L 9000.0800 ####[facility] [address] [place], [address] Mode Not entered [facility] Comment on above: Performed By: #### L 9000.0800 ####[facility] [address] [place], [address] O2 Delivery Dev Cannula Normal [facility] Comment on above: Performed By: #### L 9000.0800 ####[facility] [address] [place], [address] pCO2 88.1 mmHg Invalid Interpretation Code 35-45 [facility] Comment on above: Performed By: #### L 9000.0800 ####[facility] [address] [place], [address] pH (Bld) 7.18 [pH] Invalid Interpretation Code 7.35-7.45 [facility] Comment on above: Performed By: #### L 9000.0800 ####[facility] [address] [place], [address] PO2 76 mmHG Normal 75-100 [facility] Comment on above: Performed By: #### L 9000.0800 ####[facility] [address] [place], [address] Read Back By Yes [facility] Comment on above: Performed By: #### L 9000.0800 ####[facility] [address] [place], [address] SITE L Brach [facility] Comment on above: Performed By: #### L 9000.0800 ####[facility] [address] [place], [address] SO2 90 Low 95-99 [facility] Comment on above: Performed By: #### L 9000.0800 ####[facility] [address] [place], [address] Time Given 14:04:53 Normal [facility] Comment on above: Performed By: #### L 9000.0800 ####[facility] [address] [place], [address] Blood base excess determinat ionOrdered By: Janak Hernandez on 10-31-2024 Base excess Calc (BldV) [Moles/Vol] 0 mmol/L -2-2 [facility] Blood bicarbonate measuremen tOrdered By: Janak Hernandez on 10-31-2024 HCO3 (Bld) [Moles/Vol] 28.6 mmol/L High 22-26 [facility] Blood cultureOrdered By: Boris Hernandez on 10-31-2024 Bacteria identified Cx Nom (Bld) No growth in 5 days. [facility] Bacteria identified Cx Nom (Bld) No growth in 5 days. [facility] CBC W/Diff, Automatedon 06-0 -2024 Absolute Lymph 0.49 X10 3/uL Low 0.83-4.51 [facility] Comment on above: Performed By: #### L 300.3900, M200.1000, L500.4050, L300.4310, L503.6005, L501.4021, L100.0100 ####[facility] [address] [place], [address] Absolute Neut 3.8 X10 3/uL Normal 2.0-7.7 [facility] Comment on above: Performed By: #### L 300.3900, M200.1000, L500.4050, L300.4310, L503.6005, L501.4021, L100.0100 ####[facility] [address] [place], [address] Basophils/100 WBC (Bld) 0.2 % Normal 0-1 [facility] Comment on above: Performed By: #### L 300.3900, M200.1000, L500.4050, L300.4310, L503.6005, L501.4021, L100.0100 ####[facility] [address] [place], [address] Eosinophils/100 WBC (Bld) 0.2 % Normal 0-5 [facility] Comment on above: Performed By: #### L 300.3900, M200.1000, L500.4050, L300.4310, L503.6005, L501.4021, L100.0100 ####[facility] [address] [place], [address] Erythrocyte distribution width (RBC) [Ratio] 14.4 % Normal 11.6-14.6 [facility] Comment on above: Performed By: #### L 300.3900, M200.1000, L500.4050, L300.4310, L503.6005, L501.4021, L100.0100 ####[facility] [address] [place], [address] Hematocrit (Bld) [Volume fraction] 33.1 % Low 37-47 [facility] Comment on above: Performed By: #### L 300.3900, M200.1000, L500.4050, L300.4310, L503.6005, L501.4021, L100.0100 ####[facility] [address] [place], [address] Hemoglobin (Bld) [Mass/Vol] 10.0 g/dL Low 12.0-15.0 [facility] Comment on above: Performed By: #### L 300.3900, M200.1000, L500.4050, L300.4310, L503.6005, L501.4021, L100.0100 ####[facility] [address] [place], [address] IG% 1.400 High 0.0-0.9 [facility] Comment on above: Result Comment: IG% - Immature Granulocytes (promyelocytes, myelocytes andmetamyelocytes) > 1% indicates that a LEFT SHIFT is Present. Performed By: #### L 300.3900, M200.1000, L500.4050, L300.4310, L503.6005, L501.4021, L100.0100 ####[facility] [address] [place], [address] Lymphocytes/100 WBC (Bld) 10.1 % Low 19-41 [facility] Comment on above: Performed By: #### L 300.3900, M200.1000, L500.4050, L300.4310, L503.6005, L501.4021, L100.0100 ####[facility] [address] [place], [address] MCH (RBC) [Entitic mass] 31.7 pg Normal 27.0-32.0 [facility] Comment on above: Performed By: #### L 300.3900, M200.1000, L500.4050, L300.4310, L503.6005, L501.4021, L100.0100 ####[facility] [address] [place], [address] MCHC (RBC) [Mass/Vol] 30.2 g/dL Low 32-36 [facility] Comment on above: Performed By: #### L 300.3900, M200.1000, L500.4050, L300.4310, L503.6005, L501.4021, L100.0100 ####[facility] [address] [place], [address] MCV (RBC) [Entitic vol] 105.1 fL High 81-99 [facility] Comment on above: Performed By: #### L 300.3900, M200.1000, L500.4050, L300.4310, L503.6005, L501.4021, L100.0100 ####[facility] [address] [place], [address] Monocytes/100 WBC (Bld) 9.9 % Normal 0-10 [facility] Comment on above: Performed By: #### L 300.3900, M200.1000, L500.4050, L300.4310, L503.6005, L501.4021, L100.0100 ####[facility] [address] [place], [address] Neutrophils/100 WBC (Bld) 78.2 % High 47-70 [facility] Comment on above: Performed By: #### L 300.3900, M200.1000, L500.4050, L300.4310, L503.6005, L501.4021, L100.0100 ####[facility] [address] [place], [address] Nucleated RBC (Bld) [#/Vol] 0 10*3/uL Normal 0-5 [facility] Comment on above: Performed By: #### L 300.3900, M200.1000, L500.4050, L300.4310, L503.6005, L501.4021, L100.0100 ####[facility] [address] [place], [address] Platelet mean volume (Bld) [Entitic vol] 10.5 fL Normal 6.2-12.0 [facility] Comment on above: Performed By: #### L 300.3900, M200.1000, L500.4050, L300.4310, L503.6005, L501.4021, L100.0100 ####[facility] [address] [place], [address] Platelets (Bld) [#/Vol] 156 10*3/uL Normal 150-450 [facility] Comment on above: Performed By: #### L 300.3900, M200.1000, L500.4050, L300.4310, L503.6005, L501.4021, L100.0100 ####[facility] [address] [place], [address] RBC (Bld) [#/Vol] 3.15 10*6/uL Low 4.2-5.4 [facility] Comment on above: Performed By: #### L 300.3900, M200.1000, L500.4050, L300.4310, L503.6005, L501.4021, L100.0100 ####[facility] [address] [place], [address] RDW SD 54.5 fl High 35.1-43.9 [facility] Comment on above: Performed By: #### L 300.3900, M200.1000, L500.4050, L300.4310, L503.6005, L501.4021, L100.0100 ####[facility] [address] [place], [address] WBC (Bld) [#/Vol] 4.8 10*3/uL Normal 4.4-11.0 [facility] Comment on above: Performed By: #### L 300.3900, M200.1000, L500.4050, L300.4310, L503.6005, L501.4021, L100.0100 ####[facility] [address] [place], [address] Carbon dioxide, total [Moles /volume] in Central venous bloodOrdered By: Janak Hernandez on 10-31-2024 CO2 [Moles/Vol] 29.1 mmol/L 21.0-32.0 [facility] Chest PA and Lateralon 10-31 Chest PA and Lateral Normal [facility] Chloride assayOrdered By: Deven Hernandez on 10-31-2024 Chloride [Moles/Vol] 101 mmol/L 98-108 [facility] Comprehensive Metabolic Prof ilon 10-31-2024 Albumin [Mass/Vol] 3.7 g/dL Normal 3.4-4.8 [facility] Comment on above: Performed By: #### L 300.3900, M200.1000, L500.4050, L300.4310, L503.6005, L501.4021, L100.0100 ####[facility] [address] [place], [address] Albumin/Globulin [Mass ratio] 1.2 {ratio} Normal 0.9-2.4 [facility] Comment on above: Performed By: #### L 300.3900, M200.1000, L500.4050, L300.4310, L503.6005, L501.4021, L100.0100 ####[facility] [address] [place], [address] ALK PHOS 66 U/L Normal 35-104 [facility] Comment on above: Performed By: #### L 300.3900, M200.1000, L500.4050, L300.4310, L503.6005, L501.4021, L100.0100 ####[facility] [address] [place], [address] ALT [Catalytic activity/Vol] 8 U/L Normal <=34 [facility] Comment on above: Performed By: #### L 300.3900, M200.1000, L500.4050, L300.4310, L503.6005, L501.4021, L100.0100 ####[facility] [address] [place], [address] AST [Catalytic activity/Vol] 19 U/L Normal <=31 [facility] Comment on above: Result Comment: Hemo lysis present, Results??could be affected.?? Performed By: #### L 300.3900, M200.1000, L500.4050, L300.4310, L503.6005, L501.4021, L100.0100 ####[facility] [address] [place], [address] Bilirubin [Mass/Vol] 0.17 mg/dL Normal 0.00-1.30 [facility] Comment on above: Performed By: #### L 300.3900, M200.1000, L500.4050, L300.4310, L503.6005, L501.4021, L100.0100 ####[facility] [address] [place], [address] BUN/CRE 15.8 RATIO Normal 10-20 [facility] Comment on above: Performed By: #### L 300.3900, M200.1000, L500.4050, L300.4310, L503.6005, L501.4021, L100.0100 ####[facility] [address] [place], [address] Calcium [Mass/Vol] 8.9 mg/dL Normal 7.6-11.0 [facility] Comment on above: Performed By: #### L 300.3900, M200.1000, L500.4050, L300.4310, L503.6005, L501.4021, L100.0100 ####[facility] [address] [place], [address] Chloride [Moles/Vol] 101 mmol/L Normal 98-108 [facility] Comment on above: Performed By: #### L 300.3900, M200.1000, L500.4050, L300.4310, L503.6005, L501.4021, L100.0100 ####[facility] [address] [place], [address] CO2 [Moles/Vol] 29.1 mmol/L Normal 21.0-32.0 [facility] [facility] Comment on above: Performed By: #### L 300.3900, M200.1000, L500.4050, L300.4310, L503.6005, L501.4021, L100.0100 ####[facility] [address] [place], [address] Creatinine [Mass/Vol] 1.71 mg/dL High 0.70-1.20 [facility] Comment on above: Performed By: #### L 300.3900, M200.1000, L500.4050, L300.4310, L503.6005, L501.4021, L100.0100 ####[facility] [address] [place], [address] ECRCL 37.98 ml/min Low 50-250 [facility] Comment on above: Performed By: #### L 300.3900, M200.1000, L500.4050, L300.4310, L503.6005, L501.4021, L100.0100 ####[facility] [address] [place], [address] GAP 9 Normal 5-15 [facility] Comment on above: Performed By: #### L 300.3900, M200.1000, L500.4050, L300.4310, L503.6005, L501.4021, L100.0100 ####[facility] [address] [place], [address] GFR/1.73 sq M.predicted among non-blacks MDRD (S/P/Bld) [Vol rate/Area] 31 mL/min/{1.73_m2} Low >60 [facility] Comment on above: Result Comment: mL/m in/1.73m2 CKD-EPI Creatinine Equation (2020) Performed By: #### L 300.3900, M200.1000, L500.4050, L300.4310, L503.6005, L501.4021, L100.0100 ####[facility] [address] [place], [address] Globulin (S) [Mass/Vol] 3.2 g/dL Normal 2.2-4.2 [facility] Comment on above: Performed By: #### L 300.3900, M200.1000, L500.4050, L300.4310, L503.6005, L501.4021, L100.0100 ####[facility] [address] [place], [address] Glucose [Mass/Vol] 112 mg/dL High 70-99 [facility] Comment on above: Performed By: #### L 300.3900, M200.1000, L500.4050, L300.4310, L503.6005, L501.4021, L100.0100 ####[facility] [address] [place], [address] Potassium [Moles/Vol] 4.5 mmol/L Normal 3.3-5.1 [facility] Comment on above: Result Comment: Hemo lysis present, Results??could be affected.?? Performed By: #### L 300.3900, M200.1000, L500.4050, L300.4310, L503.6005, L501.4021, L100.0100 ####[facility] [address] [place], [address] Sodium [Moles/Vol] 139 mmol/L Normal 133-145 [facility] Comment on above: Performed By: #### L 300.3900, M200.1000, L500.4050, L300.4310, L503.6005, L501.4021, L100.0100 ####[facility] [address] [place], [address] T PROT 6.8 g/dL Normal 5.9-8.4 [facility] Comment on above: Performed By: #### L 300.3900, M200.1000, L500.4050, L300.4310, L503.6005, L501.4021, L100.0100 ####[facility] [address] [place], [place], [id number] Urea nitrogen [Mass/Vol] 27 mg/dL High 4-19 [facility] Comment on above: Performed By: #### L 300.3900, M200.1000, L500.4050, L300.4310, L503.6005, L501.4021, L100.0100 ####[facility] [address] [place], [place], [id number] Echo Complete W/ Contraston 10-31-2024 Echo Complete W/ Contrast Normal [facility] Emergency Department Summary on 10-31-2024 Emergency Department Summary Normal [facility] Eosinophil percentageOrdered By: Janak Hernandez on 10-31-2024 Eosinophils/100 WBC (Bld) 0.2 % 0-5 [facility] Erythrocyte distribution wid th ratioOrdered By: Janak Hernandez on 10-31-2024 Erythrocyte distribution width (RBC) [Ratio] 14.4 % 11.6-14.6 [facility] Erythrocyte distribution wid th standard deviationOrdered By: Janak Hernandez on 10-31-2024 Erythrocyte distribution width (RBC) [Ratio] 54.5 fl High 35.1-43.9 [facility] Glomerular filtration rate ( GFR) estimation/1.73 sq m using serum, plasma, or whole bOrdered By: Janak Hernandez on 10-31-2024 GFR/1.73 sq M.predicted among non-blacks MDRD (S/P/Bld) [Vol rate/Area] 31 mL/min/{1.73_m2} Low >60 [facility] Comment on above: mL/min/1.73m2 CKD-EP I Creatinine Equation (2020) H AND P Exam - [facility] 10-31-2024 H&P Exam - Hospitalist Normal [facility] Hematocrit Auto (Bld) [Volum e fraction]Ordered By: Janak Hernandez on 10-31-2024 Hematocrit (Bld) [Volume fraction] 33.1 % Low 37-47 [facility] Hemoglobin measurementOrdere d By: Janak Hernandez on 10-31-2024 Hemoglobin (Bld) [Mass/Vol] 10.0 g/dL Low 12.0-15.0 [facility] Immature granulocytes/100 WB C Auto (Bld)Ordered By: Janak Hernandez on 10-31-2024 Immature granulocytes/100 WBC (Bld) 1.400 % High 0.0-0.9 [facility] Comment on above: IG% - Immature Granu locytes (promyelocytes, myelocytes and metamyelocytes) > 1% indicates that a LEFT SHIFT is Present. Influenza virus A and B and SARS-CoV-2 (COVID-19) and Respiratory syncytial virus RNAOrdered By: Janak Hernandez on 10-31-2024 SARS-CoV-2 (COVID-19) RNA NICOLE+probe Ql (Unsp spec) [facility] International normalized rat io (INR) calculationOrdered By: Janak Hernandez on 10-31-2024 INR Coag (Bld) [Relative time] 1.2 {INR} [facility] Ketones Test strip Ql (U)Ord ered By: Janak Hernandez on 10-31-2024 Ketones Ql (U) Negative Negative [facility] L499.0042on 10-31-2024 Trop T High Sen 30 ng/L High <=14 [facility] Comment on above: Performed By: #### L 499.0042 ####[facility] [address] [place], [address] L499.0043on 10-31-2024 Trop T High Sen 32 ng/L High <=14 [facility] Comment on above: Performed By: #### L 499.0043 ####[facility] [address] [place], [address] L501.4021on 10-31-2024 Trop T High Sen 35 ng/L High <=14 [facility] Comment on above: Performed By: #### L 300.3900, M200.1000, L500.4050, L300.4310, L503.6005, L501.4021, L100.0100 ####[facility] [address] [place], [place], [id number] L503.7505on 10-31-2024 Natriuretic peptide B (Bld) [Mass/Vol] 1111 pg/mL High <=900 [facility] Comment on above: Result Comment: Hear t Failure Unlikely: < 300 pg/mLHeart Failure Likely< 50 Years: > 450 pg/mL50-75 Years: > 900 pg/mL>75 Years: > 1800 pg/mL Performed By: #### L 503.7505 ####[facility] [address] [place], [place], [id number] Laboratory - Chemistry and C hemistry - challengeOrdered By: Janak Hernandez on 10-31-2024 AST [Catalytic activity/Vol] 19 U/L <32 [facility] Comment on above: Hemolysis present, R esults could be affected. Lactic Acidon 10-31-2024 Lactate [Moles/Vol] mmol/L Normal 0.0-2.0 [facility] Comment on above: Order Comment: Y Performed By: #### L 300.3900, M200.1000, L500.4050, L300.4310, L503.6005, L501.4021, L100.0100 ####[facility] [address] [place], [place], [id number] Lactic acid measurementOrder ed By: Janak Hernandez on 10-31-2024 Lactate [Moles/Vol] mmol/L 0.0-2.0 [facility] M100.678on 10-31-2024 M100.678 Pending SARS-CoV-2 (COVID 19) Negative INFLUENZA A Negative INFLUENZA B Negative RSV PCR Negative Normal [facility] Comment on above: Performed By: #### M 100.2200, L400.0001, M100.678 ####[facility] [address] [place], [address] MCV (mean corpuscular volume ) determinationOrdered By: Janak Hernandez on 10-31-2024 MCV (RBC) [Entitic vol] 105.1 fL High 81-99 [facility] Mean corpuscular hemoglobin (MCH) determinationOrdered By: Janak Hernandez on 10-31-2024 MCH (RBC) [Entitic mass] 31.7 pg 27.0-32.0 [facility] Mean corpuscular hemoglobin concentration (MCHC) determinationOrdered By: Janak Hernandez on 10-31-2024 MCHC (RBC) [Mass/Vol] 30.2 g/dL Low 32-36 [facility] Mean platelet volume determi nationOrdered By: Janak Hernandez on 10-31-2024 Platelet mean volume (Bld) [Entitic vol] 10.5 fL 6.2-12.0 [facility] Measurement, pHOrdered By: Kecia Hernandez on 10-31-2024 pH (Unsp spec) 7.18 [pH] Low 7.35-7.45 [facility] Microscopic analysis of urin e for red blood cells (RBC)Ordered By: Janak Hernandez on 10-31-2024 Microscopic analysis of urine for red blood cells (RBC) 0-5 SEEN /hpf 0-5 [facility] Monocyte percentageOrdered B y: Janak Hernandez on 10-31-2024 Monocytes/100 WBC (Bld) 9.9 % 0-10 [facility] Mucus LM Ql (Urine sed)Order ed By: Janak Hernandez on 10-31-2024 Mucus Ql (Urine sed) 0 SEEN /hpf [facility] Natriuretic peptide.B prohor marichuy N-Terminal [Mass/volume] in Serum or PlasmaOrdered By: Janak Hernandez on 10-31-2024 Natriuretic peptide.B prohormone N-Terminal [Mass/Vol] 1111 pg/mL High <900 [facility] Comment on above: Heart Failure Unlike ly: < 300 pg/mLHeart Failure Likely< 50 Years: > 450 pg/mL50-75 Years: > 900 pg/mL>75 Years: > 1800 pg/mL Neutrophil percentageOrdered By: Janak Hernandez on 10-31-2024 Neutrophils/100 WBC (Bld) 78.2 % High 47-70 [facility] Nitrite Test strip Ql (U)Ord ered By: Janak Hernandez on 10-31-2024 Nitrite Ql (U) Negative Negative [facility] No Panel InformationOrdered By: Janak Hernandez on 10-31-2024 Bld Gas Crit Called To/Read Back By Yes [facility] Blood Gas Notified Time 17:27:12 [facility] Blood Gas Notified Whom chichi Mosher [facility] Blood Gas Sample Site L Radial [facility] Blood Gas Specimen Type ART [facility] Blood Gas Vent Mode Not entered [facility] Oxygen Delivery Device BiPAP [facility] Nucleated red blood cell per centageOrdered By: Janak Hernandez on 10-31-2024 Nucleated RBC/100 WBC (Bld) [Ratio] 0 % 0-5 [facility] Partial Thromboplast Timeon 10-31-2024 aPTT Coag (Bld) [Time] 32.4 s Normal 24.1-36.2 [facility] Comment on above: Performed By: #### L 300.3900, M200.1000, L500.4050, L300.4310, L503.6005, L501.4021, L100.0100 ####[facility] [address] [place], [place], [id number] Platelet countOrdered By: Deven Hernandez on 10-31-2024 Platelets (Bld) [#/Vol] 156 10*3/uL 150-450 [facility] Potassium measurement (mass/ volume)Ordered By: Janak Hernandez on 10-31-2024 Potassium (Unsp spec) [Mass/Vol] 4.5 mmol/L 3.3-5.1 [facility] Comment on above: Hemolysis present, R esults could be affected. Protein Test strip Ql (U)Ord ered By: Janak Hernandez on 10-31-2024 Protein Ql (U) 500 mg/dl High Negative [facility] Prothrombin Time w/INRon INR Coag (PPP) [Relative time] 1.2 {INR} Normal [facility] Comment on above: Performed By: #### L 300.3900, M200.1000, L500.4050, L300.4310, L503.6005, L501.4021, L100.0100 ####[facility] [address] [place], [address] PT Coag (PPP) [Time] 15.0 s High 11.7-14.9 [facility] Comment on above: Performed By: #### L 300.3900, M200.1000, L500.4050, L300.4310, L503.6005, L501.4021, L100.0100 ####[facility] [address] [place], [address] Prothrombin timeOrdered By: Janak Hernandez on 10-31-2024 PT Coag (PPP) [Time] 15.0 s High 11.7-14.9 [facility] RBC Auto (Bld) [#/Vol]Ordere d By: Janak Hernandez on 10-31-2024 RBC (Bld) [#/Vol] 3.15 10*6/uL Low 4.2-5.4 [facility] Respiratory pathogens detect ion panel by molecular detection methodOrdered By: Zhane Stone on 10-31-2024 Respiratory pathogens DNA and RNA panel NICOLE+probe (Resp) [facility] Serum creatinine measurement (mass/volume)Ordered By: Janak Hernandez on 10-31-2024 Creatinine [Mass/Vol] 1.71 mg/dL High 0.70-1.20 [facility] Serum globulin measurementOr dered By: Janak Hernandez on 10-31-2024 Globulin (S) [Mass/Vol] 3.2 g/dL 2.2-4.2 [facility] Serum glucose measurement (m ass/volume)Ordered By: Janak Hernandez on 10-31-2024 Glucose [Mass/Vol] 112 mg/dL High 70-99 [facility] Serum or plasma alanine centeno otransferase (ALT) measurementOrdered By: Janak Hernandez on 10-31-2024 ALT [Catalytic activity/Vol] 8 U/L <35 [facility] Serum or plasma albumin reese urement (mass/volume)Ordered By: Janak Hernandez on 10-31-2024 Albumin [Mass/Vol] 3.7 g/dL 3.4-4.8 [facility] Serum or plasma albumin/glob ulin mass ratioOrdered By: Janak Hernandez on 10-31-2024 Albumin/Globulin [Mass ratio] 1.2 {ratio} 0.9-2.4 [facility] Serum or plasma alkaline sohail sphatase measurementOrdered By: Janak Hernandez on 10-31-2024 ALP [Catalytic activity/Vol] 66 U/L 35-104 [facility] Serum or plasma calcium reese urement (mass/volume)Ordered By: Janak Hernandez on 10-31-2024 Calcium [Mass/Vol] 8.9 mg/dL 7.6-11.0 [facility] Serum or plasma urea nitroge n measurement (mass/volume)Ordered By: Janak Hernandez on 10-31-2024 Urea nitrogen [Mass/Vol] 27 mg/dL High 4-19 [facility] Sodium levelOrdered By: Efrain Hernandez on 10-31-2024 Sodium [Moles/Vol] 139 mmol/L 133-145 [facility] Squamous epithelial cells de tection in urine sediment by light microscopyOrdered By: Janak Hernandez on 10-31-2024 Epithelial cells.squamous LM Ql (Urine sed) 0-5 SEEN /hpf 5-10 [facility] Total carbon dioxide measure mentOrdered By: Janak Hernandez on 10-31-2024 CO2 [Moles/Vol] 31 mmol/L [facility] Total proteinOrdered By: Boris Hernandez on 10-31-2024 Protein [Mass/Vol] 6.8 g/dL 5.9-8.4 [facility] Troponin T.cardiac [Mass/vol ume] in Serum or Plasma by High sensitivity methodOrdered By: Janak Hernandez on 10-31-2024 Troponin T.cardiac High sensitivity method [Mass/Vol] 32 ng/L High <14 [facility] Troponin T.cardiac High sensitivity method [Mass/Vol] 30 ng/L High <14 [facility] Troponin T.cardiac High sensitivity method [Mass/Vol] 35 ng/L High <14 [facility] Urinalysis, Completeon 10-31 AMORPHOUS 3+ Normal [facility] Comment on above: Order Comment: [facility] CTOR TO SPECIFY Performed By: #### M 100.2200, L400.0001, M100.678 ####[facility] [address] [place], [address] EPI,SQUAMOUS 0-5 SEEN Normal 5-10 [facility] Comment on above: Order Comment: COLLE CTOR TO SPECIFY Performed By: #### M 100.2200, L400.0001, M100.678 ####[facility] [address] [place], [address] RBC 0-5 SEEN Normal 0-5 [facility] Comment on above: Order Comment: [facility] CTOR TO SPECIFY Performed By: #### M 100.2200, L400.0001, M100.678 ####[facility] [address] [place], [address] WBC 0-5 SEEN Normal 0-5 [facility] Comment on above: Order Comment: [facility] CTOR TO SPECIFY Performed By: #### M 100.2200, L400.0001, M100.678 ####[facility] [address] [place], [address] BACTERIA 0 SEEN Normal None Seen [facility] Comment on above: Order Comment: [facility] CTOR TO SPECIFY Performed By: #### M 100.2200, L400.0001, M100.678 ####[facility] [address] [place], [address] Mucus Ql (Urine sed) 0 SEEN Normal [facility] Comment on above: Order Comment: [facility] CTOR TO SPECIFY Performed By: #### M 100.2200, L400.0001, M100.678 ####[facility] [address] [place], [address] Urine clarityOrdered By: Boris Hernandez on 10-31-2024 Clarity (U) Cloudy Clear [facility] Urine color determinationOrd ered By: Janak Hernandez on 10-31-2024 Color (U) Yellow Yellow [facility] Urine cultureOrdered By: Boris Hernandez on 10-31-2024 Bacteria identified Cx Nom (U) Positive Abnormal [facility] Urine glucose detectionOrder ed By: Janak Hernandez on 10-31-2024 Glucose Ql (U) Normal mg/dl Normal [facility] Urine leukocyte esterase det ection by dipstickOrdered By: Janak Hernandez on 10-31-2024 Leukocyte esterase Test strip Ql (U) Negative Negative [facility] Urine pHOrdered By: Janak steinberg on 10-31-2024 pH (U) 6.0 [pH] 5.0 - 8.0 [facility] Urine sediment bacteria coun t by microscopy (number/high power field)Ordered By: Janak Hernandez on 10-31-2024 Bacteria LM.HPF (Urine sed) [#/Area] 0 /[HPF] None Seen [facility] Urine specific gravity measu rementOrdered By: Janak Hernandez on 10-31-2024 Specific gravity (U) [Rel density] 1.020 1.002-1.030 [facility] Urine urobilinogen measureme ntOrdered By: Janak Hernandez on 10-31-2024 Urobilinogen Ql (U) Normal mg/dl Normal [facility] White blood cell (WBC) count Ordered By: Janak Hernandez on 10-31-2024 WBC (Bld) [#/Vol] 4.8 10*3/uL 4.4-11.0 [facility] White blood cell countOrdere d By: Janak Hernandez on 10-31-2024 White blood cell count 0-5 SEEN /hpf 0-5 [facility] MR/BMS.BVSon 06-29-2024 MR/BMS.BVS Normal [facility] CTA Head AND Neck W/ Contras ton 06-21-2024 CTA Head AND Neck W/ Contrast Normal [facility] Carotid Duplex Ultrasoundon 05-03-2024 Carotid Duplex Ultrasound Normal [facility] MR/BMS.BVSon 04-18-2024 MR/BMS.BVS Normal [facility] L509.8000on 03-29-2024 Syphilis Abs Non-Reactive Normal [facility] Comment on above: Performed By: #### L 509.8000 ####[facility] [address] [place], [address] Venous Duplex US, Unilateral on 03-10-2024 Venous Duplex US, Unilateral Normal [facility] Basic Metabolic Profile (BMP )on 01-25-2024 BUN Normal 7-18 [facility] Comment on above: Result Comment: Canc elled via OM: Order cancelled - Patient discharged Performed By: #### L 500.2500, L100.0100 ####[facility] [address] [place], [address] BUN/CRE Normal 10-20 [facility] Comment on above: Result Comment: Canc elled via OM: Order cancelled - Patient discharged Performed By: #### L 500.2500, L100.0100 ####[facility] [address] [place], [address] CA,Total Normal 8.5-10.1 [facility] Comment on above: Result Comment: Canc elled via OM: Order cancelled - Patient discharged Performed By: #### L 500.2500, L100.0100 ####[facility] [address] [place], [address] CL Normal 98-107 [facility] Comment on above: Result Comment: Canc elled via OM: Order cancelled - Patient discharged Performed By: #### L 500.2500, L100.0100 ####[facility] [address] [place], [address] CO2 Normal 21.0-32.0 [facility] Comment on above: Result Comment: Canc elled via OM: Order cancelled - Patient discharged Performed By: #### L 500.2500, L100.0100 ####[facility] [address] [place], [address] CREAT,SERUM Normal 0.55-1.02 [facility] Comment on above: Result Comment: Canc elled via OM: Order cancelled - Patient discharged Performed By: #### L 500.2500, L100.0100 ####[facility] [address] [place], [address] EST GFR Normal >60 [facility] Comment on above: Result Comment: Canc elled via OM: Order cancelled - Patient discharged Performed By: #### L 500.2500, L100.0100 ####[facility] [address] [place], [address] EST GFR - AA Normal >60 [facility] Comment on above: Result Comment: Canc elled via OM: Order cancelled - Patient discharged Performed By: #### L 500.2500, L100.0100 ####[facility] [address] [place], [address] GAP Normal 5-15 [facility] Comment on above: Result Comment: Canc elled via OM: Order cancelled - Patient discharged Performed By: #### L 500.2500, L100.0100 ####[facility] [address] [place], [address] GLU Normal 74-106 [facility] Comment on above: Result Comment: Canc elled via OM: Order cancelled - Patient discharged Performed By: #### L 500.2500, L100.0100 ####[facility] [address] [place], [address] Potassium Normal 3.5-5.1 [facility] Comment on above: Result Comment: Canc elled via OM: Order cancelled - Patient discharged Performed By: #### L 500.2500, L100.0100 ####[facility] [address] [place], [address] Basic Metabolic Profile (BMP) Normal 136-145 [facility] Comment on above: Result Comment: Canc elled via OM: Order cancelled - Patient discharged Performed By: #### L 500.2500, L100.0100 ####[facility] [address] [place], [address] CBC W/Diff, Automatedon 08- Absolute Neut Normal 2.0-7.7 [facility] Comment on above: Result Comment: Canc elled via OM: Order cancelled - Patient discharged Performed By: #### L 500.2500, L100.0100 ####[facility] [address] [place], [address] HCT Normal 37-47 [facility] Comment on above: Result Comment: Canc elled via OM: Order cancelled - Patient discharged Performed By: #### L 500.2500, L100.0100 ####[facility] [address] [place] [place], [address] HGB Normal 12.0-15.0 [facility] Comment on above: Result Comment: Canc elled via OM: Order cancelled - Patient discharged Performed By: #### L 500.2500, L100.0100 ####[facility] [address] [place], [address] MCH Normal 27.0-32.0 [facility] Comment on above: Result Comment: Canc elled via OM: Order cancelled - Patient discharged Performed By: #### L 500.2500, L100.0100 ####[facility] [address] [place], [address] MCHC Normal 32-36 [facility] Comment on above: Result Comment: Canc elled via OM: Order cancelled - Patient discharged Performed By: #### L 500.2500, L100.0100 ####[facility] [address] [place], [address] MCV Normal 81-99 [facility] Comment on above: Result Comment: Canc elled via OM: Order cancelled - Patient discharged Performed By: #### L 500.2500, L100.0100 ####[facility] [address] [place], [address] NEUT% Normal 47-70 [facility] Comment on above: Result Comment: Canc elled via OM: Order cancelled - Patient discharged Performed By: #### L 500.2500, L100.0100 ####[facility] [address] [place], [address] PLT Normal 150-450 [facility] Comment on above: Result Comment: Canc elled via OM: Order cancelled - Patient discharged Performed By: #### L 500.2500, L100.0100 ####[facility] [address] [place], [address] RBC Normal 4.2-5.4 [facility] Comment on above: Result Comment: Canc elled via OM: Order cancelled - Patient discharged Performed By: #### L 500.2500, L100.0100 ####[facility] [address] [place], [address] RDW CV Normal 11.6-14.6 [facility] Comment on above: Result Comment: Canc elled via OM: Order cancelled - Patient discharged Performed By: #### L 500.2500, L100.0100 ####[facility] [address] [place], [address] RDW SD Normal 35.1-43.9 [facility] Comment on above: Result Comment: Canc elled via OM: Order cancelled - Patient discharged Performed By: #### L 500.2500, L100.0100 ####[facility] [address] [place], [address] WBC Normal 4.4-11.0 [facility] Comment on above: Result Comment: Canc elled via OM: Order cancelled - Patient discharged Performed By: #### L 500.2500, L100.0100 ####[facility] [address] [place], [address] Basic Metabolic Profile (BMP )on 01-24-2024 BUN/CRE 24.9 RATIO High 10-20 [facility] Comment on above: Performed By: #### L 500.2500, L100.0100 ####[facility] [address] [place], [address] CA,Total 8.2 mg/dL Low 8.5-10.1 [facility] Comment on above: Performed By: #### L 500.2500, L100.0100 ####[facility] [address] [place], [address] Chloride [Moles/Vol] 108 mmol/L High 98-107 [facility] Comment on above: Performed By: #### L 500.2500, L100.0100 ####[facility] [address] [place], [address] CO2 [Moles/Vol] 26.0 mmol/L Normal 21.0-32.0 [facility] Comment on above: Performed By: #### L 500.2500, L100.0100 ####[facility] [address] [place], [address] Creatinine [Mass/Vol] 1.97 mg/dL High 0.55-1.02 [facility] Comment on above: Result Comment: The validity of the calculated GFR GFRAA in patients over70 years has not been determined. Clinical correlation isessential. Performed By: #### L 500.2500, L100.0100 ####[facility] [address] [place], [address] ECRCL 34.22 ml/min Normal [facility] Comment on above: Performed By: #### L 500.2500, L100.0100 ####[facility] [address] [place], [address] EST GFR - AA 32 mL/min Low >60 [facility] Comment on above: Result Comment: Afri can Gambian GFR Calc Performed By: #### L 500.2500, L100.0100 ####[facility] [address] [place], [address] GAP 5 Normal 5-15 [facility] Comment on above: Performed By: #### L 500.2500, L100.0100 ####[facility] [address] [place], [address] GFR/1.73 sq M.predicted among non-blacks MDRD (S/P/Bld) [Vol rate/Area] 26 mL/min/{1.73_m2} Low >60 [facility] Comment on above: Result Comment: Non- GFR Calc Performed By: #### L 500.2500, L100.0100 ####[facility] [address] [place], [address] Glucose [Mass/Vol] 107 mg/dL High 74-106 [facility] Comment on above: Result Comment: Fast ing Glucose result from 100 to 125 mg/dLsuggests IMPAIRED HOMEOSTASIS per A.D.A. criteria. Performed By: #### L 500.2500, L100.0100 ####[facility] [address] [place], [address] Potassium [Moles/Vol] 4.1 mmol/L Normal 3.5-5.1 [facility] Comment on above: Performed By: #### L 500.2500, L100.0100 ####[facility] [address] [place], [address] Sodium [Moles/Vol] 139 mmol/L Normal 136-145 [facility] Comment on above: Performed By: #### L 500.2500, L100.0100 ####[facility] [address] [place], [address] Urea nitrogen [Mass/Vol] 49 mg/dL High 7-18 [facility] Comment on above: Performed By: #### L 500.2500, L100.0100 ####[facility] [address] [place], [address] CBC W/Diff, Automatedon 08-2 -2023 Absolute Lymph 0.55 X10 3/uL Low 0.83-4.51 [facility] Comment on above: Performed By: #### L 500.2500, L100.0100 ####[facility] [address] [place], [address] Absolute Neut 3.5 X10 3/uL Normal 2.0-7.7 [facility] Comment on above: Performed By: #### L 500.2500, L100.0100 ####[facility] [address] [place], [address] Basophils/100 WBC (Bld) 0.2 % Normal 0-1 [facility] Comment on above: Performed By: #### L 500.2500, L100.0100 ####[facility] [address] [place], [address] Eosinophils/100 WBC (Bld) 0.0 % Normal 0-5 [facility] Comment on above: Performed By: #### L 500.2500, L100.0100 ####[facility] [address] [place], [address] Erythrocyte distribution width (RBC) [Ratio] 15.1 % High 11.6-14.6 [facility] Comment on above: Performed By: #### L 500.2500, L100.0100 ####[facility] [address] [place], [address] Hematocrit (Bld) [Volume fraction] 34.3 % Low 37-47 [facility] Comment on above: Performed By: #### L 500.2500, L100.0100 ####[facility] [address] [place], [address] Hemoglobin (Bld) [Mass/Vol] 10.6 g/dL Low 12.0-15.0 [facility] Comment on above: Performed By: #### L 500.2500, L100.0100 ####[facility] [address] [place], [address] IG% 1.100 High 0.0-0.9 [facility] Comment on above: Result Comment: IG% - Immature Granulocytes (promyelocytes, myelocytes andmetamyelocytes) > 1% indicates that a LEFT SHIFT is Present. Performed By: #### L 500.2500, L100.0100 ####[facility] [address] [place], [address] Lymphocytes/100 WBC (Bld) 11.7 % Low 19-41 [facility] Comment on above: Performed By: #### L 500.2500, L100.0100 ####[facility] [address] [place], [address] MCH (RBC) [Entitic mass] 32.1 pg High 27.0-32.0 [facility] Comment on above: Performed By: #### L 500.2500, L100.0100 ####[facility] [address] [place], [address] MCHC (RBC) [Mass/Vol] 30.9 g/dL Low 32-36 [facility] Comment on above: Performed By: #### L 500.2500, L100.0100 ####[facility] [address] [place], [address] MCV (RBC) [Entitic vol] 103.9 fL High 81-99 [facility] Comment on above: Performed By: #### L 500.2500, L100.0100 ####[facility] [address] [place], [address] Monocytes/100 WBC (Bld) 11.9 % High 0-10 [facility] Comment on above: Performed By: #### L 500.2500, L100.0100 ####[facility] [address] [place], [address] Neutrophils/100 WBC (Bld) 75.1 % High 47-70 [facility] Comment on above: Performed By: #### L 500.2500, L100.0100 ####[facility] [address] [place], [address] Nucleated RBC (Bld) [#/Vol] 0.9 10*3/uL Normal 0-5 [facility] Comment on above: Performed By: #### L 500.2500, L100.0100 ####[facility] [address] [place], [address] Platelet mean volume (Bld) [Entitic vol] 9.7 fL Normal 6.2-12.0 [facility] Comment on above: Performed By: #### L 500.2500, L100.0100 ####[facility] [address] [place], [address] Platelets (Bld) [#/Vol] 139 10*3/uL Low 150-450 [facility] Comment on above: Performed By: #### L 500.2500, L100.0100 ####[facility] [address] [place], [address] RBC (Bld) [#/Vol] 3.30 10*6/uL Low 4.2-5.4 [facility] Comment on above: Performed By: #### L 500.2500, L100.0100 ####[facility] [address] [place], [address] RDW SD 56.4 fl High 35.1-43.9 [facility] Comment on above: Performed By: #### L 500.2500, L100.0100 ####[facility] [address] [place], [address] WBC (Bld) [#/Vol] 4.7 10*3/uL Normal 4.4-11.0 [facility] Comment on above: Performed By: #### L 500.2500, L100.0100 ####[facility] [address] [place], [address] Discharge Instructionon 12-30 Discharge Instruction Normal [facility] Kidney and Bladderon 024 Kidney and Bladder Normal [facility] Basic Metabolic Profile (BMP )on 01-23-2024 BUN/CRE 24.8 RATIO High 10-20 [facility] Comment on above: Performed By: #### L 500.2500, L100.0100 ####[facility] [address] [place], [address] CA,Total 8.0 mg/dL Low 8.5-10.1 [facility] Comment on above: Performed By: #### L 500.2500, L100.0100 ####[facility] [address] [place], [address] Chloride [Moles/Vol] 106 mmol/L Normal 98-107 [facility] Comment on above: Performed By: #### L 500.2500, L100.0100 ####[facility] [address] [place], [address] CO2 [Moles/Vol] 23.0 mmol/L Normal 21.0-32.0 [facility] Comment on above: Performed By: #### L 500.2500, L100.0100 ####[facility] [address] [place], [address] Creatinine [Mass/Vol] 2.30 mg/dL High 0.55-1.02 [facility] Comment on above: Result Comment: The validity of the calculated GFR GFRAA in patients over70 years has not been determined. Clinical correlation isessential. Performed By: #### L 500.2500, L100.0100 ####[facility] [address] [place], [address] ECRCL 29.31 ml/min Normal [facility] Comment on above: Performed By: #### L 500.2500, L100.0100 ####[facility] [address] [place], [address] EST GFR - AA 27 mL/min Low >60 [facility] Comment on above: Result Comment: Afri can Gambian GFR Calc Performed By: #### L 500.2500, L100.0100 ####[facility] [address] [place], [address] GAP 8 Normal 5-15 [facility] Comment on above: Performed By: #### L 500.2500, L100.0100 ####[facility] [address] [place], [address] GFR/1.73 sq M.predicted among non-blacks MDRD (S/P/Bld) [Vol rate/Area] 22 mL/min/{1.73_m2} Low >60 [facility] Comment on above: Result Comment: Non- GFR Calc Performed By: #### L 500.2500, L100.0100 ####[facility] [address] [place], [address] Glucose [Mass/Vol] 106 mg/dL Normal 74-106 [facility] Comment on above: Result Comment: Fast ing Glucose result from 100 to 125 mg/dLsuggests IMPAIRED HOMEOSTASIS per A.D.A. criteria. Performed By: #### L 500.2500, L100.0100 ####[facility] [address] [place], [address] Potassium [Moles/Vol] 4.4 mmol/L Normal 3.5-5.1 [facility] Comment on above: Performed By: #### L 500.2500, L100.0100 ####[facility] [address] [place], [address] Sodium [Moles/Vol] 137 mmol/L Normal 136-145 [facility] Comment on above: Performed By: #### L 500.2500, L100.0100 ####[facility] [address] [place], [address] Urea nitrogen [Mass/Vol] 57 mg/dL High 7-18 [facility] Comment on above: Performed By: #### L 500.2500, L100.0100 ####[facility] [address] [place], [address] Blood Gases by [facility] 024 RHIANNON TEST Positive Normal [facility] Comment on above: Performed By: #### L 9000.0800 ####[facility] [address] [place], [address] Base excess Calc (Bld) [Moles/Vol] 0 mmol/L Normal -2 to +2 [facility] Comment on above: Performed By: #### L 9000.0800 ####[facility] [address] [place], [address] Blood Gas Type ART Normal [facility] Comment on above: Performed By: #### L 9000.0800 ####[facility] [address] [place], [address] CO2 [Moles/Vol] 28 mmol/L Normal [facility] Comment on above: Performed By: #### L 9000.0800 ####[facility] [address] [place], [address] FI02 2.0 Normal [facility] Comment on above: Performed By: #### L 9000.0800 ####[facility] [address] [place], [address] HCO3 (Bld) [Moles/Vol] 26.7 mmol/L High 22-26 [facility] Comment on above: Performed By: #### L 9000.0800 ####[facility] [address] [place], [address] Mode Not entered Normal [facility] Comment on above: Performed By: #### L 9000.0800 ####[facility] [address] [place], [address] O2 Delivery Dev Cannula Normal [facility] Comment on above: Performed By: #### L 9000.0800 ####[facility] [address] [place], [address] pCO2 55.5 mmHg High 35-45 [facility] Comment on above: Performed By: #### L 9000.0800 ####[facility] [address] [place], [address] pH (Bld) 7.29 [pH] Low 7.35-7.45 [facility] Comment on above: Performed By: #### L 9000.0800 ####[facility] [address] [place], [address] PO2 68 mmHG Low 75-100 [facility] Comment on above: Performed By: #### L 9000.0800 ####[facility] [address] [place], [address] SITE R Radial Normal [facility] Comment on above: Performed By: #### L 9000.0800 ####[facility] [address] [place], [address] SO2 91 Low 95-99 [facility] Comment on above: Performed By: #### L 9000.0800 ####[facility] [address] [place], [address] CBC W/Diff, Automatedon 12-30 Absolute Lymph 0.60 X10 3/uL Low 0.83-4.51 [facility] Comment on above: Performed By: #### L 500.2500, L100.0100 ####[facility] [address] [place], [address] Absolute Neut 3.9 X10 3/uL Normal 2.0-7.7 [facility] Comment on above: Performed By: #### L 500.2500, L100.0100 ####[facility] [address] [place], [address] Basophils/100 WBC (Bld) 0.4 % Normal 0-1 [facility] Comment on above: Performed By: #### L 500.2500, L100.0100 ####[facility] [address] [place], [address] Eosinophils/100 WBC (Bld) 0.0 % Normal 0-5 [facility] Comment on above: Performed By: #### L 500.2500, L100.0100 ####[facility] [address] [place], [address] Erythrocyte distribution width (RBC) [Ratio] 15.2 % High 11.6-14.6 [facility] Comment on above: Performed By: #### L 500.2500, L100.0100 ####[facility] [address] [place], [address] Hematocrit (Bld) [Volume fraction] 35.2 % Low 37-47 [facility] Comment on above: Performed By: #### L 500.2500, L100.0100 ####[facility] [address] [place], [address] Hemoglobin (Bld) [Mass/Vol] 10.6 g/dL Low 12.0-15.0 [facility] Comment on above: Performed By: #### L 500.2500, L100.0100 ####[facility] [address] [place], [address] IG% 1.000 High 0.0-0.9 [facility] Comment on above: Result Comment: IG% - Immature Granulocytes (promyelocytes, myelocytes andmetamyelocytes) > 1% indicates that a LEFT SHIFT is Present. Performed By: #### L 500.2500, L100.0100 ####[facility] [address] [place], [address] Lymphocytes/100 WBC (Bld) 11.5 % Low 19-41 [facility] Comment on above: Performed By: #### L 500.2500, L100.0100 ####[facility] [address] [place], [address] MCH (RBC) [Entitic mass] 32.0 pg Normal 27.0-32.0 [facility] Comment on above: Performed By: #### L 500.2500, L100.0100 ####[facility] [address] [place], [address] MCHC (RBC) [Mass/Vol] 30.1 g/dL Low 32-36 [facility] Comment on above: Performed By: #### L 500.2500, L100.0100 ####[facility] [address] [place], [address] MCV (RBC) [Entitic vol] 106.3 fL High 81-99 [facility] Comment on above: Performed By: #### L 500.2500, L100.0100 ####[facility] [address] [place], [address] Monocytes/100 WBC (Bld) 12.3 % High 0-10 [facility] Comment on above: Performed By: #### L 500.2500, L100.0100 ####[facility] [address] [place], [address] Neutrophils/100 WBC (Bld) 74.8 % High 47-70 [facility] Comment on above: Performed By: #### L 500.2500, L100.0100 ####[facility] [address] [place], [address] Nucleated RBC (Bld) [#/Vol] 1.0 10*3/uL Normal 0-5 [facility] Comment on above: Performed By: #### L 500.2500, L100.0100 ####[facility] [address] [place], [address] Platelet mean volume (Bld) [Entitic vol] 10.1 fL Normal 6.2-12.0 [facility] Comment on above: Performed By: #### L 500.2500, L100.0100 ####[facility] [address] [place], [address] Platelets (Bld) [#/Vol] 146 10*3/uL Low 150-450 [facility] Comment on above: Performed By: #### L 500.2500, L100.0100 ####[facility] [address] [place], [address] RBC (Bld) [#/Vol] 3.31 10*6/uL Low 4.2-5.4 [facility] Comment on above: Performed By: #### L 500.2500, L100.0100 ####[facility] [address] [place], [address] RDW SD 57.9 fl High 35.1-43.9 [facility] Comment on above: Performed By: #### L 500.2500, L100.0100 ####[facility] [address] [place], [address] WBC (Bld) [#/Vol] 5.2 10*3/uL Normal 4.4-11.0 [facility] Comment on above: Performed By: #### L 500.2500, L100.0100 ####[facility] [address] [place], [address] Basic Metabolic Profile (BMP )on 01-22-2024 BUN/CRE 20.4 RATIO High 10-20 [facility] Comment on above: Performed By: #### L 501.5200, L100.0100, L501.2300, L500.2500 ####[facility] [address] [place], [address] CA,Total 7.6 mg/dL Low 8.5-10.1 [facility] Comment on above: Performed By: #### L 501.5200, L100.0100, L501.2300, L500.2500 ####[facility] [address] [place], [address] Chloride [Moles/Vol] 103 mmol/L Normal 98-107 [facility] Comment on above: Performed By: #### L 501.5200, L100.0100, L501.2300, L500.2500 ####[facility] [address] [place], [address] CO2 [Moles/Vol] 28.0 mmol/L Normal 21.0-32.0 [facility] Comment on above: Performed By: #### L 501.5200, L100.0100, L501.2300, L500.2500 ####[facility] [address] [place], [address] Creatinine [Mass/Vol] 2.60 mg/dL High 0.55-1.02 [facility] Comment on above: Result Comment: The validity of the calculated GFR GFRAA in patients over70 years has not been determined. Clinical correlation isessential. Performed By: #### L 501.5200, L100.0100, L501.2300, L500.2500 ####[facility] [address] [place], [address] ECRCL 25.57 ml/min Normal [facility] Comment on above: Performed By: #### L 501.5200, L100.0100, L501.2300, L500.2500 ####[facility] [address] [place], [address] EST GFR - AA 23 mL/min Low >60 [facility] Comment on above: Result Comment: Afri can Gambian GFR Calc Performed By: #### L 501.5200, L100.0100, L501.2300, L500.2500 ####[facility] [address] [place], [address] GAP 7 Normal 5-15 [facility] Comment on above: Performed By: #### L 501.5200, L100.0100, L501.2300, L500.2500 ####[facility] [address] [place], [address] GFR/1.73 sq M.predicted among non-blacks MDRD (S/P/Bld) [Vol rate/Area] 19 mL/min/{1.73_m2} Low >60 [facility] Comment on above: Result Comment: Non- GFR Calc Performed By: #### L 501.5200, L100.0100, L501.2300, L500.2500 ####[facility] [address] [place], [address] Glucose [Mass/Vol] 121 mg/dL High 74-106 [facility] Comment on above: Result Comment: Fast ing Glucose result from 100 to 125 mg/dLsuggests IMPAIRED HOMEOSTASIS per A.D.A. criteria. Performed By: #### L 501.5200, L100.0100, L501.2300, L500.2500 ####[facility] [address] [place], [address] Potassium [Moles/Vol] 5.2 mmol/L High 3.5-5.1 [facility] Comment on above: Performed By: #### L 501.5200, L100.0100, L501.2300, L500.2500 ####[facility] [address] [place], [address] Sodium [Moles/Vol] 138 mmol/L Normal 136-145 [facility] Comment on above: Performed By: #### L 501.5200, L100.0100, L501.2300, L500.2500 ####[facility] [address] [place], [address] Urea nitrogen [Mass/Vol] 53 mg/dL High 7-18 [facility] Comment on above: Performed By: #### L 501.5200, L100.0100, L501.2300, L500.2500 ####[facility] [address] [place], [address] Blood Gases by [facility] 024 RHIANNON TEST Positive Normal [facility] Comment on above: Performed By: #### L 9000.0800 ####[facility] [address] [place], [address] Base excess Calc (Bld) [Moles/Vol] -2 mmol/L Normal -2 to +2 [facility] Comment on above: Performed By: #### L 9000.0800 ####[facility] [address] [place], [address] Blood Gas Type ART Normal [facility] Comment on above: Performed By: #### L 9000.0800 ####[facility] [address] [place], [address] CO2 [Moles/Vol] 29 mmol/L Normal [facility] Comment on above: Performed By: #### L 9000.0800 ####[facility] [address] [place], [address] FI02 50.0 Normal [facility] Comment on above: Performed By: #### L 9000.0800 ####[facility] [address] [place], [address] HCO3 (Bld) [Moles/Vol] 26.5 mmol/L High 22-26 [facility] Comment on above: Performed By: #### L 9000.0800 ####[facility] [address] [place], [address] Mode Not entered Normal [facility] Comment on above: Performed By: #### L 9000.0800 ####[facility] [address] [place], [address] O2 Delivery Dev BiPAP Normal [facility] Comment on above: Performed By: #### L 9000.0800 ####[facility] [address] [place], [address] pCO2 74.5 mmHg Invalid Interpretation Code 35-45 [facility] Comment on above: Performed By: #### L 9000.0800 ####[facility] [address] [place], [address] PEEP 18 Normal [facility] Comment on above: Performed By: #### L 9000.0800 ####[facility] [address] [place], [address] pH (Bld) 7.16 [pH] Invalid Interpretation Code 7.35-7.45 [facility] Comment on above: Performed By: #### L 9000.0800 ####[facility] [address] [place], [address] PO2 139 mmHG High 75-100 [facility] Comment on above: Performed By: #### L 9000.0800 ####[facility] [address] [place], [address] Read Back By Yes [facility] Comment on above: Performed By: #### L 9000.0800 ####[facility] [address] [place], [address] metzger [facility] Comment on above: Performed By: #### L 9000.0800 ####[facility] [address] [place], [address] RR 18 [facility] Comment on above: Performed By: #### L 9000.0800 ####[facility] [address] [place], [address] SITE R Radial [facility] Comment on above: Performed By: #### L 0.0800 ####[facility] [address] [place], [address] SO2 98 Normal 95-99 [facility] Comment on above: Performed By: #### L 0.0800 ####[facility] [address] [place], [address] Time Given 09:09:57 [facility] Comment on above: Performed By: #### L 9000.0800 ####[facility] [address] [place], [address] Vt 500.0 mL [facility] Comment on above: Performed By: #### L 9000.0800 ####[facility] [address] [place], [address] CBC W/Diff, Automatedon 08-2 Absolute Lymph 0.22 X10 3/uL Low 0.83-4.51 [facility] Comment on above: Performed By: #### L 501.5200, L100.0100, L501.2300, L500.2500 ####[facility] [address] [place], [address] Absolute Neut 4.1 X10 3/uL Normal 2.0-7.7 [facility] Comment on above: Performed By: #### L 501.5200, L100.0100, L501.2300, L500.2500 ####[facility] [address] [place], [address] Basophils/100 WBC (Bld) 0.2 % Normal 0-1 [facility] Comment on above: Performed By: #### L 501.5200, L100.0100, L501.2300, L500.2500 ####[facility] [address] [place], [address] Eosinophils/100 WBC (Bld) 0.0 % Normal 0-5 [facility] Comment on above: Performed By: #### L 501.5200, L100.0100, L501.2300, L500.2500 ####[facility] [address] [place], [address] Erythrocyte distribution width (RBC) [Ratio] 15.4 % High 11.6-14.6 [facility] Comment on above: Performed By: #### L 501.5200, L100.0100, L501.2300, L500.2500 ####[facility] [address] [place], [address] Hematocrit (Bld) [Volume fraction] 38.1 % Normal 37-47 [facility] Comment on above: Performed By: #### L 501.5200, L100.0100, L501.2300, L500.2500 ####[facility] [address] [place], [address] Hemoglobin (Bld) [Mass/Vol] 11.3 g/dL Low 12.0-15.0 [facility] Comment on above: Performed By: #### L 501.5200, L100.0100, L501.2300, L500.2500 ####[facility] [address] [place], [address] IG% 2.200 High 0.0-0.9 [facility] Comment on above: Result Comment: IG% - Immature Granulocytes (promyelocytes, myelocytes andmetamyelocytes) > 1% indicates that a LEFT SHIFT is Present. Performed By: #### L 501.5200, L100.0100, L501.2300, L500.2500 ####[facility] [address] [place], [address] Lymphocytes/100 WBC (Bld) 4.8 % Low 19-41 [facility] Comment on above: Performed By: #### L 501.5200, L100.0100, L501.2300, L500.2500 ####[facility] [address] [place], [address] MCH (RBC) [Entitic mass] 32.1 pg High 27.0-32.0 [facility] Comment on above: Performed By: #### L 501.5200, L100.0100, L501.2300, L500.2500 ####[facility] [address] [place], [address] MCHC (RBC) [Mass/Vol] 29.7 g/dL Low 32-36 [facility] Comment on above: Performed By: #### L 501.5200, L100.0100, L501.2300, L500.2500 ####[facility] [address] [place], [address] MCV (RBC) [Entitic vol] 108.2 fL High 81-99 [facility] Comment on above: Performed By: #### L 501.5200, L100.0100, L501.2300, L500.2500 ####[facility] [address] [place], [address] Monocytes/100 WBC (Bld) 3.7 % Normal 0-10 [facility] Comment on above: Performed By: #### L 501.5200, L100.0100, L501.2300, L500.2500 ####[facility] [address] [place], [address] Neutrophils/100 WBC (Bld) 89.1 % High 47-70 [facility] Comment on above: Performed By: #### L 501.5200, L100.0100, L501.2300, L500.2500 ####[facility] [address] [place], [address] Nucleated RBC (Bld) [#/Vol] 2.4 10*3/uL Normal 0-5 [facility] Comment on above: Performed By: #### L 501.5200, L100.0100, L501.2300, L500.2500 ####[facility] [address] [place], [address] Platelet mean volume (Bld) [Entitic vol] 10.2 fL Normal 6.2-12.0 [facility] Comment on above: Performed By: #### L 501.5200, L100.0100, L501.2300, L500.2500 ####[facility] [address] [place], [address] Platelets (Bld) [#/Vol] 154 10*3/uL Normal 150-450 [facility] Comment on above: Performed By: #### L 501.5200, L100.0100, L501.2300, L500.2500 ####[facility] [address] [place], [address] RBC (Bld) [#/Vol] 3.52 10*6/uL Low 4.2-5.4 [facility] Comment on above: Performed By: #### L 501.5200, L100.0100, L501.2300, L500.2500 ####[facility] [address] [place], [address] RDW SD 59.9 fl High 35.1-43.9 [facility] Comment on above: Performed By: #### L 501.5200, L100.0100, L501.2300, L500.2500 ####[facility] [address] [place], [address] WBC (Bld) [#/Vol] 4.6 10*3/uL Normal 4.4-11.0 [facility] Comment on above: Performed By: #### L 501.5200, L100.0100, L501.2300, L500.2500 ####[facility] [address] [place], [address] Magnesiumon 01-22-2024 Magnesium [Mass/Vol] 2.1 mg/dL Normal 1.6-2.6 [facility] Comment on above: Performed By: #### L 501.5200, L100.0100, L501.2300, L500.2500 ####[facility] [address] [place], [address] Phosphoruson 01-22-2024 Phosphate [Mass/Vol] 5.6 mg/dL High 2.5-4.9 [facility] Comment on above: Performed By: #### L 501.5200, L100.0100, L501.2300, L500.2500 ####[facility] [address] [place], [address] BNP,B-Type NATRIURETIC PEPTI Bhavin 01-21-2024 Natriuretic peptide B (Bld) [Mass/Vol] 830.1 pg/mL High 0-100 [facility] Comment on above: Performed By: #### L 500.4050, L300.3900, L503.6620, L501.5425, L503.6005, L100.0100, L300.4310 ####[facility] [address] [place], [address] Blood Gases by [facility] 024 Base excess Calc (Bld) [Moles/Vol] 0 mmol/L Normal -2 to +2 [facility] Comment on above: Performed By: #### L 9000.0800 ####[facility] [address] [place], [address] Blood Gas Type ART Normal [facility] Comment on above: Performed By: #### L 9000.0800 ####[facility] [address] [place], [address] CO2 [Moles/Vol] 34 mmol/L Normal [facility] Comment on above: Performed By: #### L 9000.0800 ####[facility] [address] [place], [address] FI02 40.0 Normal [facility] Comment on above: Performed By: #### L 9000.0800 ####[facility] [address] [place], [address] HCO3 (Bld) [Moles/Vol] 30.2 mmol/L High 22-26 [facility] Comment on above: Performed By: #### L 9000.0800 ####[facility] [address] [place], [address] Mode avaps Normal [facility] Comment on above: Performed By: #### L 9000.0800 ####[facility] [address] [place], [address] O2 Delivery Dev Not entered Normal [facility] Comment on above: Performed By: #### L 9000.0800 ####[facility] [address] [place], [address] pCO2 107.0 mmHg Invalid Interpretation Code 35-45 [facility] Comment on above: Performed By: #### L 9000.0800 ####[facility] [address] [place], [address] PEEP 14 Normal [facility] Comment on above: Performed By: #### L 9000.0800 ####[facility] [address] [place], [address] pH (Bld) 7.06 [pH] Invalid Interpretation Code 7.35-7.45 [facility] Comment on above: Performed By: #### L 9000.0800 ####[facility] [address] [place], [address] PIP 28 Normal [facility] Comment on above: Performed By: #### L 9000.0800 ####[facility] [address] [place], [address] PO2 71 mmHG Low 75-100 [facility] Comment on above: Performed By: #### L 9000.0800 ####[facility] [address] [place], [address] Read Back By Yes [facility] Comment on above: Performed By: #### L 9000.0800 ####[facility] [address] [place], [address] Results To ug Normal [facility] Comment on above: Performed By: #### L 9000.0800 ####[facility] [address] [place], [address] RR 18 Normal [facility] Comment on above: Performed By: #### L 9000.0800 ####[facility] [address] [place], [address] SITE R Brach Normal [facility] Comment on above: Performed By: #### L 9000.0800 ####[facility] [address] [place], [address] SO2 83 Low 95-99 [facility] Comment on above: Performed By: #### L 9000.0800 ####[facility] [address] [place], [address] Time Given 13:17:41 Normal [facility] Comment on above: Performed By: #### L 9000.0800 ####[facility] [address] [place], [address] Vt 500.0 mL Normal [facility] Comment on above: Performed By: #### L 9000.0800 ####[facility] [address] [place], [address] Base excess Calc (Bld) [Moles/Vol] 0 mmol/L Normal -2 to +2 [facility] Comment on above: Performed By: #### L 9000.0800 ####[facility] [address] [place], [address] Blood Gas Type ART Normal [facility] Comment on above: Performed By: #### L 9000.0800 ####[facility] [address] [place], [address] CO2 [Moles/Vol] 34 mmol/L Normal [facility] Comment on above: Performed By: #### L 9000.0800 ####[facility] [address] [place], [address] FI02 15.0 Normal [facility] Comment on above: Performed By: #### L 9000.0800 ####[facility] [address] [place], [address] HCO3 (Bld) [Moles/Vol] 30.6 mmol/L High 22-26 [facility] Comment on above: Performed By: #### L 9000.0800 ####[facility] [address] [place], [address] Mode Not entered [facility] Comment on above: Performed By: #### L 9000.0800 ####[facility] [address] [place], [address] O2 Delivery Dev NRB [facility] Comment on above: Performed By: #### L 9000.0800 ####[facility] [address] [place], [address] pCO2 106.6 mmHg Invalid Interpretation Code 35-45 [facility] Comment on above: Performed By: #### L 9000.0800 ####[facility] [address] [place], [address] pH (Bld) 7.07 [pH] Invalid Interpretation Code 7.35-7.45 [facility] Comment on above: Performed By: #### L 9000.0800 ####[facility] [address] [place], [address] PO2 82 mmHG Normal 75-100 [facility] Comment on above: Performed By: #### L 9000.0800 ####[facility] [address] [place], [address] Read Back By Yes [facility] Comment on above: Performed By: #### L 9000.0800 ####[facility] [address] [place], [address] Results To ug [facility] Comment on above: Performed By: #### L 9000.0800 ####[facility] [address] [place], [address] SITE L Brach [facility] Comment on above: Performed By: #### L 9000.0800 ####[facility] [address] [place], [address] SO2 89 Low 95-99 [facility] Comment on above: Performed By: #### L 9000.0800 ####[facility] [address] [place], [address] Time Given 11:33:30 Normal [facility] Comment on above: Performed By: #### L 0.0800 ####[facility] [address] [place], [address] CBC W/Diff, Automatedon 12-30 Absolute Lymph 0.69 X10 3/uL Low 0.83-4.51 [facility] Comment on above: Performed By: #### L 500.4050, L300.3900, L503.6620, L501.5425, L503.6005, L100.0100, L300.4310 ####[facility] [address] [place], [address] Absolute Neut 4.2 X10 3/uL Normal 2.0-7.7 [facility] Comment on above: Performed By: #### L 500.4050, L300.3900, L503.6620, L501.5425, L503.6005, L100.0100, L300.4310 ####[facility] [address] [place], [address] Basophils/100 WBC (Bld) 0.9 % Normal 0-1 [facility] Comment on above: Performed By: #### L 500.4050, L300.3900, L503.6620, L501.5425, L503.6005, L100.0100, L300.4310 ####[facility] [address] [place], [address] Eosinophils/100 WBC (Bld) 0.0 % Normal 0-5 [facility] Comment on above: Performed By: #### L 500.4050, L300.3900, L503.6620, L501.5425, L503.6005, L100.0100, L300.4310 ####[facility] [address] [place], [address] Erythrocyte distribution width (RBC) [Ratio] 15.8 % High 11.6-14.6 [facility] Comment on above: Performed By: #### L 500.4050, L300.3900, L503.6620, L501.5425, L503.6005, L100.0100, L300.4310 ####[facility] [address] [place], [address] Hematocrit (Bld) [Volume fraction] 40.0 % Normal 37-47 [facility] Comment on above: Performed By: #### L 500.4050, L300.3900, L503.6620, L501.5425, L503.6005, L100.0100, L300.4310 ####[facility] [address] [place], [address] Hemoglobin (Bld) [Mass/Vol] 11.7 g/dL Low 12.0-15.0 [facility] Comment on above: Performed By: #### L 500.4050, L300.3900, L503.6620, L501.5425, L503.6005, L100.0100, L300.4310 ####[facility] [address] [place], [address] IG% 2.700 High 0.0-0.9 [facility] Comment on above: Result Comment: IG% - Immature Granulocytes (promyelocytes, myelocytes andmetamyelocytes) > 1% indicates that a LEFT SHIFT is Present. Performed By: #### L 500.4050, L300.3900, L503.6620, L501.5425, L503.6005, L100.0100, L300.4310 ####[facility] [address] [place], [address] Lymphocytes/100 WBC (Bld) 12.3 % Low 19-41 [facility] Comment on above: Performed By: #### L 500.4050, L300.3900, L503.6620, L501.5425, L503.6005, L100.0100, L300.4310 ####[facility] [address] [place], [address] MCH (RBC) [Entitic mass] 31.9 pg Normal 27.0-32.0 [facility] [facility] Comment on above: Performed By: #### L 500.4050, L300.3900, L503.6620, L501.5425, L503.6005, L100.0100, L300.4310 ####[facility] [address] [place], [address] MCHC (RBC) [Mass/Vol] 29.3 g/dL Low 32-36 [facility] Comment on above: Performed By: #### L 500.4050, L300.3900, L503.6620, L501.5425, L503.6005, L100.0100, L300.4310 ####[facility] [address] [place], [address] MCV (RBC) [Entitic vol] 109.0 fL High 81-99 [facility] Comment on above: Performed By: #### L 500.4050, L300.3900, L503.6620, L501.5425, L503.6005, L100.0100, L300.4310 ####[facility] [address] [place], [address] Monocytes/100 WBC (Bld) 8.7 % Normal 0-10 [facility] Comment on above: Performed By: #### L 500.4050, L300.3900, L503.6620, L501.5425, L503.6005, L100.0100, L300.4310 ####[facility] [address] [place], [address] Neutrophils/100 WBC (Bld) 75.4 % High 47-70 [facility] Comment on above: Performed By: #### L 500.4050, L300.3900, L503.6620, L501.5425, L503.6005, L100.0100, L300.4310 ####[facility] [address] [place], [address] Nucleated RBC (Bld) [#/Vol] 2.0 10*3/uL Normal 0-5 [facility] Comment on above: Performed By: #### L 500.4050, L300.3900, L503.6620, L501.5425, L503.6005, L100.0100, L300.4310 ####[facility] [address] [place], [address] Platelet mean volume (Bld) [Entitic vol] 10.5 fL Normal 6.2-12.0 [facility] Comment on above: Performed By: #### L 500.4050, L300.3900, L503.6620, L501.5425, L503.6005, L100.0100, L300.4310 ####[facility] [address] [place], [address] Platelets (Bld) [#/Vol] 173 10*3/uL Normal 150-450 [facility] Comment on above: Performed By: #### L 500.4050, L300.3900, L503.6620, L501.5425, L503.6005, L100.0100, L300.4310 ####[facility] [address] [place], [address] RBC (Bld) [#/Vol] 3.67 10*6/uL Low 4.2-5.4 [facility] Comment on above: Performed By: #### L 500.4050, L300.3900, L503.6620, L501.5425, L503.6005, L100.0100, L300.4310 ####[facility] [address] [place], [address] RDW SD 62.0 fl High 35.1-43.9 [facility] Comment on above: Performed By: #### L 500.4050, L300.3900, L503.6620, L501.5425, L503.6005, L100.0100, L300.4310 ####[facility] [address] [place], [address] WBC (Bld) [#/Vol] 5.6 10*3/uL Normal 4.4-11.0 [facility] Comment on above: Performed By: #### L 500.4050, L300.3900, L503.6620, L501.5425, L503.6005, L100.0100, L300.4310 ####[facility] [address] [place], [address] Chest 1 View (Portable)on Chest 1 View (Portable) Normal [facility] Comprehensive Metabolic Prof ilon 01-21-2024 Albumin [Mass/Vol] 2.9 g/dL Low 3.2-5.0 [facility] Comment on above: Order Comment: 1Y Performed By: #### L 500.4050, L300.3900, L503.6620, L501.5425, L503.6005, L100.0100, L300.4310 ####[facility] [address] [place], [address] Albumin/Globulin [Mass ratio] 0.7 {ratio} Low 0.9-2.4 [facility] Comment on above: Order Comment: 1Y Performed By: #### L 500.4050, L300.3900, L503.6620, L501.5425, L503.6005, L100.0100, L300.4310 ####[facility] [address] [place], [address] ALK P 55 U/L Normal 45-117 [facility] Comment on above: Order Comment: 1Y Performed By: #### L 500.4050, L300.3900, L503.6620, L501.5425, L503.6005, L100.0100, L300.4310 ####[facility] [address] [place], [address] ALT [Catalytic activity/Vol] 21 U/L Normal 13-56 [facility] Comment on above: Order Comment: 1Y Performed By: #### L 500.4050, L300.3900, L503.6620, L501.5425, L503.6005, L100.0100, L300.4310 ####[facility] [address] [place], [address] AST [Catalytic activity/Vol] 24 U/L Normal 15-37 [facility] Comment on above: Order Comment: 1Y Performed By: #### L 500.4050, L300.3900, L503.6620, L501.5425, L503.6005, L100.0100, L300.4310 ####[facility] [address] [place], [address] Bilirubin [Mass/Vol] 0.30 mg/dL Normal 0.20-1.00 [facility] Comment on above: Order Comment: 1Y Result Comment: For patients on eltrombopag therapy, use of Dimension [place] TBIL is not recommended. Performed By: #### L 500.4050, L300.3900, L503.6620, L501.5425, L503.6005, L100.0100, L300.4310 ####[facility] [address] [place], [address] BUN/CRE 18.5 RATIO Normal 10-20 [facility] Comment on above: Order Comment: 1Y Performed By: #### L 500.4050, L300.3900, L503.6620, L501.5425, L503.6005, L100.0100, L300.4310 ####[facility] [address] [place], [address] CA,Total 8.0 mg/dL Low 8.5-10.1 [facility] Comment on above: Order Comment: 1Y Performed By: #### L 500.4050, L300.3900, L503.6620, L501.5425, L503.6005, L100.0100, L300.4310 ####[facility] [address] [place], [address] Chloride [Moles/Vol] 99 mmol/L Normal 98-107 [facility] Comment on above: Order Comment: 1Y Performed By: #### L 500.4050, L300.3900, L503.6620, L501.5425, L503.6005, L100.0100, L300.4310 ####[facility] [address] [place], [address] CO2 [Moles/Vol] 27.0 mmol/L Normal 21.0-32.0 [facility] Comment on above: Order Comment: 1Y Performed By: #### L 500.4050, L300.3900, L503.6620, L501.5425, L503.6005, L100.0100, L300.4310 ####[facility] [address] [place], [address] Creatinine [Mass/Vol] 2.65 mg/dL High 0.55-1.02 [facility] Comment on above: Order Comment: 1Y Result Comment: The validity of the calculated GFR GFRAA in patients over70 years has not been determined. Clinical correlation isessential. Performed By: #### L 500.4050, L300.3900, L503.6620, L501.5425, L503.6005, L100.0100, L300.4310 ####[facility] [address] [place], [address] ECRCL 25.41 ml/min Normal [facility] Comment on above: Order Comment: 1Y Performed By: #### L 500.4050, L300.3900, L503.6620, L501.5425, L503.6005, L100.0100, L300.4310 ####[facility] [address] [place], [address] EST GFR - AA 23 mL/min Low >60 [facility] Comment on above: Order Comment: 1Y Result Comment: Afri can Gambian GFR Calc Performed By: #### L 500.4050, L300.3900, L503.6620, L501.5425, L503.6005, L100.0100, L300.4310 ####[facility] [address] [place], [address] GAP 8 Normal 5-15 [facility] Comment on above: Order Comment: 1Y Performed By: #### L 500.4050, L300.3900, L503.6620, L501.5425, L503.6005, L100.0100, L300.4310 ####[facility] [address] [place], [address] GFR/1.73 sq M.predicted among non-blacks MDRD (S/P/Bld) [Vol rate/Area] 19 mL/min/{1.73_m2} Low >60 [facility] Comment on above: Order Comment: 1Y Result Comment: Non- GFR Calc Performed By: #### L 500.4050, L300.3900, L503.6620, L501.5425, L503.6005, L100.0100, L300.4310 ####[facility] [address] [place], [address] Globulin (S) [Mass/Vol] 4.1 g/dL Normal 2.2-4.2 [facility] Comment on above: Order Comment: 1Y Performed By: #### L 500.4050, L300.3900, L503.6620, L501.5425, L503.6005, L100.0100, L300.4310 ####[facility] [address] [place], [address] Glucose [Mass/Vol] 126 mg/dL High 74-106 [facility] Comment on above: Order Comment: 1Y Result Comment: Fast ing Glucose result greater than or equal to 126 mg/dLsuggests DIABETES MELLITUS per A.D.A. criteria. Performed By: #### L 500.4050, L300.3900, L503.6620, L501.5425, L503.6005, L100.0100, L300.4310 ####[facility] [address] [place], [address] Potassium [Moles/Vol] 4.8 mmol/L Normal 3.5-5.1 [facility] Comment on above: Order Comment: 1Y Performed By: #### L 500.4050, L300.3900, L503.6620, L501.5425, L503.6005, L100.0100, L300.4310 ####[facility] [address] [place], [address] Sodium [Moles/Vol] 134 mmol/L Low 136-145 [facility] Comment on above: Order Comment: 1Y Performed By: #### L 500.4050, L300.3900, L503.6620, L501.5425, L503.6005, L100.0100, L300.4310 ####[facility] [address] [place], [address] T PROT 7.0 g/dL Normal 6.4-8.2 [facility] Comment on above: Order Comment: 1Y Performed By: #### L 500.4050, L300.3900, L503.6620, L501.5425, L503.6005, L100.0100, L300.4310 ####[facility] [address] [place], [address] Urea nitrogen [Mass/Vol] 49 mg/dL High 7-18 [facility] Comment on above: Order Comment: 1Y Performed By: #### L 500.4050, L300.3900, L503.6620, L501.5425, L503.6005, L100.0100, L300.4310 ####[facility] [address] [place], [address] Emergency Department Summary on 01-21-2024 Emergency Department Summary Normal [facility] H AND P Exam - Hospitaliston 01-21-2024 H&P Exam - Hospitalist Normal [facility] L501.4020on 01-21-2024 TROPONIN-I HS 315 pg/mL Invalid Interpretation Code 3.0-54.0 [facility] Comment on above: Result Comment: Crit ical Result(s) Called at: 14:31:43 01/21/2024 by: TANIA. Results read back by Michaelle. Please Note: New Test Units and Gender Specific Reference Ranges. For more information see Policy Stat Procedure [place] High Sensitivity Troponin (TNIH) and attachments. Performed By: #### L 501.4020 ####[facility] [address] [place], [address] L501.5425on 01-21-2024 TROPONIN-I HS 277 pg/mL Invalid Interpretation Code 3.0-54.0 [facility] Comment on above: Order Comment: 1Y Result Comment: Crit ical Result(s) Called at: 12:30:09 01/21/2024 by: TANIA. Results read back by Pepper Please Note: New Test Units and Gender Specific Reference Ranges. For more information see Policy Stat Procedure [place] High Sensitivity Troponin (TNIH) and attachments. Performed By: #### L 500.4050, L300.3900, L503.6620, L501.5425, L503.6005, L100.0100, L300.4310 ####[facility] [address] [place], [address] Lactic Acidon 01-21-2024 Lactate [Moles/Vol] 0.5 mmol/L Normal 0.4-1.9 [facility] Comment on above: Order Comment: Y Performed By: #### L 500.4050, L300.3900, L503.6620, L501.5425, L503.6005, L100.0100, L300.4310 ####[facility] [address] [place], [address] M100.678on 01-21-2024 M100.678 Pending SARS-CoV-2 (COVID 19) Negative INFLUENZA A Negative INFLUENZA B Negative RSV PCR Negative Normal [facility] Comment on above: Performed By: #### M 100.678, L400.0001 ####[facility] [address] [place], [address] Partial Thromboplast Timeon 01-21-2024 aPTT Coag (Bld) [Time] 35.9 s Normal 24.1-36.2 [facility] Comment on above: Performed By: #### L 500.4050, L300.3900, L503.6620, L501.5425, L503.6005, L100.0100, L300.4310 ####[facility] [address] [place], [address] Prothrombin Time w/INRon INR Coag (PPP) [Relative time] 1.4 {INR} Normal [facility] Comment on above: Performed By: #### L 500.4050, L300.3900, L503.6620, L501.5425, L503.6005, L100.0100, L300.4310 ####[facility] [address] [place], [address] PT Coag (PPP) [Time] 17.1 s High 11.7-14.9 [facility] Comment on above: Performed By: #### L 500.4050, L300.3900, L503.6620, L501.5425, L503.6005, L100.0100, L300.4310 ####[facility] [address] [place], [address] RESPIRATORY PANEL MOLECULARo n 01-21-2024 RP PANEL Normal [facility] Comment on above: Performed By: #### M 100.638 ####[facility] [address] [place], [address] Urinalysis, Completeon 01-20 WBC 0-5 SEEN Normal 0-5 [facility] Comment on above: Order Comment: BOZENA TER SPECIMEN Performed By: #### M 100.678, L400.0001 ####[facility] [address] [place], [address] BACTERIA 0 SEEN Normal None Seen [facility] Comment on above: Order Comment: BOZENA TER SPECIMEN Performed By: #### M 100.678, L400.0001 ####[facility] [address] [place], [address] EPI,SQUAMOUS 0 SEEN Normal 5-10 [facility] Comment on above: Order Comment: BOZENA TER SPECIMEN Performed By: #### M 100.678, L400.0001 ####[facility] [address] [place], [address] Mucus Ql (Urine sed) 0 SEEN Normal [facility] Comment on above: Order Comment: BOZENA TER SPECIMEN Performed By: #### M 100.678, L400.0001 ####[facility] [address] [place], [place], [address] RBC 0 SEEN Normal 0-5 [facility] Comment on above: Order Comment: BOZENA BOYER SPECIMEN Performed By: #### M 100.678, L400.0001 ####[facility] [address] [place], [place], [id number] Absolute lymphocyte countOrd ered By: Zee Jose on 03-25-2023 Lymphocytes Auto (Unsp spec) [#/Vol] 0.75 10*3/uL 0.83-4.51 [facility] Basophil percentageOrdered B y: Zee Jose on 03-25-2023 Basophils/100 WBC (Bld) 0.7 % 0-1 [facility] Bilirubin [Mass/Vol] 0.20 mg/dL 0.20-1.00 [facility] Comment on above: For patients on eltr ombopag therapy, use of Dimension [place] TBIL is not recommended. Chloride [Moles/Vol] 106 mmol/L 98-107 [facility] Eosinophils/100 WBC (Bld) 1.1 % 0-5 [facility] Glucose [Mass/Vol] 86 mg/dL 74-106 [facility] Neutrophils (Bld) [#/Vol] 1.6 10*3/uL 2.0-7.7 [facility] Neutrophils/100 WBC (Bld) 58.6 % 47-70 [facility] Potassium [Moles/Vol] 4.8 mmol/L 3.5-5.1 [facility] Comment on above: Slight Hemolysis, Re sult may be falsely increased. Protein [Mass/Vol] 7.4 g/dL 6.4-8.2 [facility] Sodium [Moles/Vol] 140 mmol/L 136-145 [facility] WBC (Bld) [#/Vol] 2.8 10*3/uL 4.4-11.0 [facility] Blood erythrocytes count (nu mber/volume)Ordered By: Zee Jose on 03-25-2023 RBC (Bld) [#/Vol] 3.63 10*6/uL 4.2-5.4 [facility] Blood hemoglobin measurement (mass/volume)Ordered By: Zee Jose on 03-25-2023 Hemoglobin (Bld) [Mass/Vol] 11.8 g/dL 12.0-15.0 [facility] Blood lymphocytes/100 leukoc ytesOrdered By: Zee Jose on 03-25-2023 Lymphocytes/100 WBC (Bld) 26.8 % 19-41 [facility] Blood monocytes/100 leukocyt esOrdered By: Zee Jose on 03-25-2023 Monocytes/100 WBC (Bld) 12.1 % 0-10 [facility] Blood platelet mean volumeOr dered By: Zee Jose on 03-25-2023 Platelet mean volume (Bld) [Entitic vol] 10.9 fL 6.2-12.0 [facility] Determination of erythrocyte mean corpuscular volume (MCV)Ordered By: Zee Jose on 03-25-2023 MCV (RBC) [Entitic vol] 107.4 fL 81-99 [facility] Hematocrit Auto (Bld) [Volum e fraction]Ordered By: Zee Jose on 03-25-2023 Hematocrit (Bld) [Volume fraction] 39.0 % 37-47 [facility] Laboratory - Chemistry and C hemistry - challengeOrdered By: Zee Jose on 03-25-2023 ALP [Catalytic activity/Vol] 48 U/L 45-117 [facility] ALT [Catalytic activity/Vol] 19 U/L 13-56 [facility] CO2 [Moles/Vol] 28.0 mmol/L 21.0-32.0 [facility] Free T4 [Mass/Vol] 0.69 ng/dL 0.76-1.46 [facility] Globulin (S) [Mass/Vol] 4.1 g/dL 2.2-4.2 [facility] Urea nitrogen/Creatinine [Mass ratio] 16.9 mg/mg 10-20 [facility] Laboratory - Hematology and Cell countsOrdered By: Zee Jose on 03-25-2023 Erythrocyte distribution width (RBC) [Entitic vol] 54.5 fL 35.1-43.9 [facility] Erythrocyte distribution width (RBC) [Ratio] 13.7 % 11.6-14.6 [facility] Immature granulocytes/100 WBC (Bld) 0.700 % 0.0-0.9 [facility] Comment on above: IG% - Immature Granu locytes (promyelocytes, myelocytes and metamyelocytes) > 1% indicates that a LEFT SHIFT is Present. MCH (RBC) [Entitic mass] 32.5 pg 27.0-32.0 [facility] Nucleated RBC/100 WBC (Bld) [Ratio] 0 % 0-5 [facility] MCHC Auto (RBC) [Mass/Vol]Or dered By: Zee Jose on 03-25-2023 MCHC (RBC) [Mass/Vol] 30.3 g/dL 32-36 [facility] No Panel InformationOrdered By: Zee Jose on 03-25-2023 Estimated GFR (MDRD) Amer 37 mL/min >60 [facility] Comment on above: GFR Calc Estimated GFR (MDRD) Non-Af Amer 31 mL/min >60 [facility] Comment on above: Non- GFR Calc Thyroid Stimulating Hormone (TSH) 3.38 uIU/mL 0.358-3.74 [facility] Platelets bldOrdered By: Kim Jose on 03-25-2023 Platelets (Bld) [#/Vol] 145 10*3/uL 150-450 [facility] Serum or plasma albumin reese urement (mass/volume)Ordered By: Zee Jose on 03-25-2023 Albumin [Mass/Vol] 3.3 g/dL 3.2-5.0 [facility] Serum or plasma albumin/glob ulin mass ratioOrdered By: Zee Jose on 03-25-2023 Albumin/Globulin [Mass ratio] 0.8 {ratio} 0.9-2.4 [facility] Serum or plasma calcium reese urement (mass/volume)Ordered By: Zee Jose on 03-25-2023 Calcium [Mass/Vol] 8.9 mg/dL 8.5-10.1 [facility] Serum or plasma cortisol cathy surement (mass/volume)Ordered By: Zee Jose on 03-25-2023 Cortisol [Mass/Vol] 10.40 ug/dL 3.44-22.45 [facility] Comment on above: Adult (AM) 5.27 - 22 .45 ug/dL Adult (PM) 3.44 - 16.76 ug/dLPlease note revised CORTISOL reference range effective 2019. Serum or plasma creatinine m easurement (mass/volume)Ordered By: Zee Jose on 03-25-2023 Creatinine [Mass/Vol] 1.72 mg/dL 0.55-1.02 [facility] Comment on above: The validity of the calculated GFR & GFRAA in patients over 70 years has not been determined. Clinical correlation is essential. Serum or plasma urea nitroge n measurement (mass/volume)Ordered By: Zee Jose on 03-25-2023 Urea nitrogen [Mass/Vol] 29 mg/dL 12-15 [facility] Thin prep Papanicolaou smear with manual screeningOrdered By: Zee Jose on 03-25-2023 Thin prep Papanicolaou smear with manual screening 23 U/L [facility] Comment on above: Slight Hemolysis, Re sult may be falsely increased. Thin prep Papanicolaou smear with manual screening 6 10-12 [facility] Whole blood hemoglobin A1c/t otal hemoglobin ratio (mass fraction)Ordered By: Zee Jose on 03-25-2023 HbA1c (Bld) [Mass fraction] 4.9 % 3.8-5.6 [facility] Comment on above: Normal < 5.7 % Predi abetic 5.7 - 6.4 % Diabetic >or= 6.5 % Please note range changes. Assessment of wrist artery p atency prior to arterial punctureOrdered By: Dr. Whipple on 08-24-2022 Arterial patency Wrist artery --pre arterial puncture Positive [facility] Base excessOrdered By: Dr. Ronan gaspar on 08-24-2022 Base excess Calc (BldV) [Moles/Vol] 2 mmol/L -2-2 [facility] Basophil percentageOrdered B y: Dr. Whipple on 08-24-2022 Basophil percentage 31.9 mmol/L [facility] Basophils/100 WBC (Bld) 72 % 95-99 [facility] CO2 (BldA) [Partial pressure ]Ordered By: Dr. Whipple on 08-24-2022 CO2 (Bld) [Partial pressure] 106.4 mm[Hg] 35-45 [facility] Influenza virus A and B and SARS-CoV-2 (COVID-19) Ag panel - Upper respiratory specimOrdered By: Dr. Whipple on 08-24-2022 SARS-CoV-2 (COVID-19) RNA NICOLE+probe Ql (Resp) [facility] No Panel InformationOrdered By: Dr. Whipple on 08-24-2022 Bld Gas Crit Called To/Read Back By Yes [facility] Blood Gas Liter Flow 10.0 /min [facility] Blood Gas Sample Site R Radial [facility] Blood Gas Specimen Type ART [facility] Blood Gas Total CO2 35 mmol/L [facility] Oxygen Delivery Device Cannula [facility] Oxygen (BldA) [Partial press ure]Ordered By: Dr. Whipple on 08-24-2022 Oxygen (Bld) [Partial pressure] 55 mmHG 75-100 [facility] pH measurementOrdered By: Dr Saravanan Whipple on 08-24-2022 pH (Unsp spec) 7.09 [pH] 7.35-7.45 [facility] Absolute lymphocyte counton 12-04-2021 Lymphocytes Auto (Unsp spec) [#/Vol] 0.42 10*3/uL 0.83-4.51 [facility] Work Phone: Basophil percentageon 2021 Basophils/100 WBC (Bld) 0.3 % 0-1 [facility] Work Phone: Chloride [Moles/Vol] 105 mmol/L 98-107 [facility] Work Phone: Eosinophils/100 WBC (Bld) 0.0 % 0-5 [facility] Work Phone: Glucose [Mass/Vol] 84 mg/dL 74-106 [facility] Work Phone: Neutrophils (Bld) [#/Vol] 3.1 10*3/uL 2.0-7.7 [facility] Work Phone: Neutrophils/100 WBC (Bld) 81.0 % 47-70 [facility] Work Phone: Potassium [Moles/Vol] 3.6 mmol/L 3.5-5.1 [facility] [facility] Work Phone: Comment on above: Slight Hemolysis, Re sult may be falsely increased. Sodium [Moles/Vol] 140 mmol/L 136-145 [facility] Work Phone: WBC (Bld) [#/Vol] 3.8 10*3/uL 4.4-11.0 [facility] Work Phone: Blood erythrocytes count (nu mber/volume)on 12-04-2021 RBC (Bld) [#/Vol] 3.48 10*6/uL 4.2-5.4 [facility] Work Phone: Blood hemoglobin measurement (mass/volume)on 12-04-2021 Hemoglobin (Bld) [Mass/Vol] 11.0 g/dL 12.0-15.0 [facility] Work Phone: Blood lymphocytes/100 leukoc yteson 12-04-2021 Lymphocytes/100 WBC (Bld) 10.9 % 19-41 [facility] Work Phone: Blood manual differential co mment interpretation (narrative result)on 12-04-2021 Manual differential comment Alvaro (Bld) [Interp] SCANNED [facility] Work Phone: Blood monocytes/100 leukocyt eson 12-04-2021 Monocytes/100 WBC (Bld) 7.0 % 0-10 [facility] Work Phone: Blood platelet mean volumeon 12-04-2021 Platelet mean volume (Bld) [Entitic vol] 10.2 fL 6.2-12.0 [facility] Work Phone: Determination of erythrocyte mean corpuscular volume (MCV)on 12-04-2021 MCV (RBC) [Entitic vol] 98.9 fL 81-99 [facility] Work Phone: Hematocrit Auto (Bld) [Volum e fraction]on 12-04-2021 Hematocrit (Bld) [Volume fraction] 34.4 % 37-47 [facility] Work Phone: Laboratory - Chemistry and C hemistry - challengeon 12-04-2021 CO2 [Moles/Vol] 31.0 mmol/L 21.0-32.0 [facility] Work Phone: Urea nitrogen/Creatinine [Mass ratio] 21.5 mg/mg 10-20 [facility] Work Phone: Laboratory - Hematology and Cell countson 12-04-2021 Erythrocyte distribution width (RBC) [Entitic vol] 47.8 fL 35.1-43.9 [facility] Work Phone: Erythrocyte distribution width (RBC) [Ratio] 13.2 % 11.6-14.6 [facility] Work Phone: Immature granulocytes/100 WBC (Bld) 0.800 % 0.0-0.9 [facility] Work Phone: Comment on above: IG% - Immature Granu locytes (promyelocytes, myelocytes and metamyelocytes) > 1% indicates that a LEFT SHIFT is Present. MCH (RBC) [Entitic mass] 31.6 pg 27.0-32.0 [facility] Work Phone: Nucleated RBC/100 WBC (Bld) [Ratio] 0 % 0-5 [facility] Work Phone: MCHC Auto (RBC) [Mass/Vol]on 12-04-2021 MCHC (RBC) [Mass/Vol] 32.0 g/dL 32-36 [facility] Work Phone: No Panel Informationon 12-04 Estimated Creatinine Clearance Calc 43.02 ml/min [facility] Work Phone: Estimated GFR (MDRD) Amer 56 mL/min >60 [facility] Work Phone: Comment on above: GFR Calc Estimated GFR (MDRD) Non-Af Amer 47 mL/min >60 [facility] Work Phone: Comment on above: Non- GFR Calc Platelets bldon 12-04-2021 Platelets (Bld) [#/Vol] 108 10*3/uL 150-450 [facility] Work Phone: Review by pathologiston Pathologist review Alvaro (Unsp spec) [Interp] September toyin [facility] Work Phone: Serum or plasma calcium reese urement (mass/volume)on 12-04-2021 Calcium [Mass/Vol] 8.3 mg/dL 8.5-10.1 oste [facility] Work Phone: Serum or plasma creatinine m easurement (mass/volume)on 12-04-2021 Creatinine [Mass/Vol] 1.21 mg/dL 0.55-1.02 [facility] Work Phone: Comment on above: The validity of the calculated GFR & GFRAA in patients over 70 years has not been determined. Clinical correlation is essential. Serum or plasma urea nitroge n measurement (mass/volume)on 12-04-2021 Urea nitrogen [Mass/Vol] 26 mg/dL 7-18 [facility] Work Phone: Thin prep Papanicolaou smear with manual screeningon 12-04-2021 Thin prep Papanicolaou smear with manual screening 4 5-15 [facility] Work Phone: Assessment of wrist artery p atency prior to arterial punctureon 12-02-2021 Arterial patency Wrist artery --pre arterial puncture Positive [facility] Work Phone: Base excesson 12-02-2021 Base excess Calc (BldV) [Moles/Vol] -2 mmol/L -2-2 [facility] Work Phone: Basophil percentageon 2021 Basophil percentage 23.2 mmol/L 22-26 [facility] Work Phone: Basophils/100 WBC (Bld) 87 % 95-99 [facility] Work Phone: CO2 (BldA) [Partial pressure ]on 12-02-2021 CO2 (Bld) [Partial pressure] 41.8 mm[Hg] 35-45 [facility] Work Phone: Glucose Glucometer (BldC) [M ass/Vol]on 12-02-2021 Glucose [Mass/Vol] 99 mg/dL 74-106 [facility] Work Phone: Comment on above: MANAGEMENT OF PATIEN T CARE PER NURSING PROTOCOL No Panel Informationon 12-02 Bedside Blood Gas PEEP 5 [facility] Work Phone: Bedside Blood Gas Pressure Support 5 [facility] Work Phone: Blood Gas Oxygen Percent 25 [facility] Work Phone: Blood Gas Sample Site L Radial [facility] Work Phone: Blood Gas Specimen Type ART [facility] Work Phone: Blood Gas Total CO2 25 mmol/L [facility] Work Phone: Blood Gas Vent Mode CPAP/PS [facility] Work Phone: Oxygen Delivery Device Adult Vent [facility] Work Phone: Oxygen (BldA) [Partial press ure]on 12-02-2021 Oxygen (Bld) [Partial pressure] 55 mmHG 75-100 [facility] Work Phone: pH measurementon 12-02-2021 pH (Unsp spec) 7.35 [pH] 7.35-7.45 [facility] Work Phone: Basophil percentageon 2021 Bilirubin [Mass/Vol] 0.10 mg/dL 0.20-1.00 [facility] Work Phone: Comment on above: For patients on eltr ombopag therapy, use of Dimension [place] TBIL is not recommended. Protein [Mass/Vol] 7.3 g/dL 6.4-8.2 [facility] Work Phone: Triglyceride [Mass/Vol] 79 mg/dL <199 [facility] Work Phone: Comment on above: The drugs N-Acetylcy steine and Metamizole may falsely depress this assay.Serum Triglycerides Reference Interval Normal <150 mg/dL Borderline high 150 - 199 mg/dL High 200 - 499 mg/dL Very High > or = 500 mg/dL Laboratory - Chemistry and C hemistry - challengeon 12-01-2021 ALP [Catalytic activity/Vol] 53 U/L 45-117 [facility] Work Phone: ALT [Catalytic activity/Vol] 18 U/L 13-56 [facility] Work Phone: CK [Catalytic activity/Vol] 208 U/L 26-192 [facility] Work Phone: Globulin (S) [Mass/Vol] 4.0 g/dL 2.2-4.2 [facility] Work Phone: Natriuretic peptide B (Bld) [Mass/Vol] 266.5 pg/mL 0-100 [facility] Work Phone: Laboratory - Microbiology an d Antimicrobial susceptibilityon 12-01-2021 SARS-CoV-2 (COVID-19) RNA NICOLE+probe Ql (Unsp spec) Detected Not Detect [facility] Work Phone: Comment on above: RESULTS CALLED [...] Informationon 12-01 Blood Gas Respiration Rate 14 [facility] Work Phone: Blood Gas Tidal Volume 450 [facility] Work Phone: Bld Gas Crit Called To/Read Back By Yes [facility] Work Phone: Blood Gas Clinical Comments See comment [facility] Work Phone: Comment on above: AVAPS VT450 RR16 E8 MIN16 MAX26 45% Blood Gas Notified Whom Nicole Villa [facility] Work Phone: Serum or plasma albumin reese urement (mass/volume)on 12-01-2021 Albumin [Mass/Vol] 3.3 g/dL 3.2-5.0 [facility] Work Phone: Serum or plasma albumin/glob ulin mass ratioon 12-01-2021 Albumin/Globulin [Mass ratio] 0.8 {ratio} 0.9-2.4 [facility] Work Phone: Serum procalcitonin measurem enton 12-01-2021 Procalcitonin [Mass/Vol] 0.21 ng/mL 0.00-0.09 [facility] Work Phone: Comment on above: A procalcitonin [...] smear with manual screening 23 U/L 15-37 [facility] Work Phone: Absolute lymphocyte counton 11-30-2021 Lymphocytes Auto (Unsp spec) [#/Vol] 0.51 10*3/uL 0.83-4.51 [facility] Work Phone: Assessment of wrist artery p atency prior to arterial punctureon 11-30-2021 Arterial patency Wrist artery --pre arterial puncture Positive [facility] Work Phone: Base excesson 11-30-2021 Base excess Calc (BldV) [Moles/Vol] 0 mmol/L -2-2 [facility] Work Phone: Basophil percentageon 2021 Basophil percentage 29.4 mmol/L 22-26 [facility] Work Phone: Basophils/100 WBC (Bld) 89 % 95-99 [facility] Work Phone: Basophil percentage 0-5 SEEN /hpf 0-5 [facility] Work Phone: [phone] Basophils/100 WBC (Bld) 0.3 % 0-1 [facility] Work Phone: Bilirubin [Mass/Vol] 0.20 mg/dL 0.20-1.00 [facility] Work Phone: Comment on above: For patients on eltr ombopag therapy, use of Dimension [place] TBIL is not recommended. Chloride [Moles/Vol] 102 mmol/L 98-107 [facility] Work Phone: [phone] Eosinophils/100 WBC (Bld) 0.0 % 0-5 [facility] Work Phone: [phone] Glucose [Mass/Vol] 112 mg/dL 74-106 [facility] Work Phone: Comment on above: Fasting Glucose resu lt from 100 to 125 mg/dL suggests IMPAIRED HOMEOSTASIS per A.D.A. criteria. Lactate [Moles/Vol] 0.8 mmol/L 0.4-2.0 [facility] Work Phone: Neutrophils (Bld) [#/Vol] 2.8 10*3/uL 2.0-7.7 [facility] Work Phone: Neutrophils/100 WBC (Bld) 73.7 % 47-70 [facility] Work Phone: Potassium [Moles/Vol] 4.7 mmol/L 3.5-5.1 [facility] Work Phone: Protein [Mass/Vol] 7.6 g/dL 6.4-8.2 [facility] Work Phone: Sodium [Moles/Vol] 135 mmol/L 136-145 [facility] Work Phone: WBC (Bld) [#/Vol] 3.8 10*3/uL 4.4-11.0 [facility] Work Phone: Bilirubin Test strip Ql (U)o n 11-30-2021 Bilirubin Ql (U) 1 mg/dL Negative [facility] Work Phone: Comment on above: NCOLOR OF URINE MAY AFFECT DIPSTICK RESULTS. Blood erythrocytes count (nu mber/volume)on 11-30-2021 RBC (Bld) [#/Vol] 3.89 10*6/uL 4.2-5.4 [facility] Work Phone: Blood hemoglobin measurement (mass/volume)on 11-30-2021 Hemoglobin (Bld) [Mass/Vol] 12.4 g/dL 12.0-15.0 [facility] Work Phone: Blood lymphocytes/100 leukoc yteson 11-30-2021 Lymphocytes/100 WBC (Bld) 13.5 % 19-41 [facility] Work Phone: Blood manual differential co mment interpretation (narrative result)on 11-30-2021 Manual differential comment Alvaro (Bld) [Interp] SCANNED [facility] Work Phone: Comment on above: LYMPHOPENIA NOTED Blood monocytes/100 leukocyt eson 11-30-2021 Monocytes/100 WBC (Bld) 11.4 % 0-10 [facility] Work Phone: Blood platelet mean volumeon 11-30-2021 Platelet mean volume (Bld) [Entitic vol] 10.1 fL 6.2-12.0 [facility] Work Phone: CO2 (BldA) [Partial pressure ]on 11-30-2021 CO2 (Bld) [Partial pressure] 93.8 mm[Hg] 35-45 [facility] Work Phone: Determination of erythrocyte mean corpuscular volume (MCV)on 11-30-2021 MCV (RBC) [Entitic vol] 101.3 fL 81-99 [facility] Work Phone: Direct bilirubinon 2 Bilirubin.direct [Mass/Vol] 0.09 mg/dL 0.00-0.30 [facility] Work Phone: Hematocrit Auto (Bld) [Volum e fraction]on 11-30-2021 Hematocrit (Bld) [Volume fraction] 39.4 % 37-47 [facility] Work Phone: Ketones Test strip Ql (U)on 11-30-2021 Ketones Ql (U) Negative Negative [facility] Work Phone: Laboratory - Chemistry and C hemistry - challengeon 11-30-2021 ALP [Catalytic activity/Vol] 56 U/L 45-117 [facility] Work Phone: ALT [Catalytic activity/Vol] 17 U/L 13-56 [facility] Work Phone: CO2 [Moles/Vol] 27.0 mmol/L 21.0-32.0 [facility] Work Phone: Globulin (S) [Mass/Vol] 3.9 g/dL 2.2-4.2 [facility] Work Phone: Urea nitrogen/Creatinine [Mass ratio] 13.7 mg/mg 10-20 [facility] Work Phone: Laboratory - Hematology and Cell countson 11-30-2021 Erythrocyte distribution width (RBC) [Entitic vol] 50.4 fL 35.1-43.9 [facility] Work Phone: Erythrocyte distribution width (RBC) [Ratio] 13.6 % 11.6-14.6 [facility] Work Phone: Immature granulocytes/100 WBC (Bld) 1.100 % 0.0-0.9 [facility] Work Phone: Comment on above: IG% - Immature Granu locytes (promyelocytes, myelocytes and metamyelocytes) > 1% indicates that a LEFT SHIFT is Present. MCH (RBC) [Entitic mass] 31.9 pg 27.0-32.0 [facility] Work Phone: Nucleated RBC/100 WBC (Bld) [Ratio] 0 % 0-5 [facility] Work Phone: MCHC Auto (RBC) [Mass/Vol]on 11-30-2021 MCHC (RBC) [Mass/Vol] 31.5 g/dL 32-36 [facility] Work Phone: Mucus LM Ql (Urine sed)on Mucus Ql (Urine sed) 0 SEEN /hpf [facility] Work Phone: Nitrite Test strip Ql (U)on 11-30-2021 Nitrite Ql (U) Negative Negative [facility] Work Phone: No Panel Informationon 11-30 Methicillin-Resist S.aureus DNA PCR Negative Negative [facility] Work Phone: Bld Gas Crit Called To/Read Back By Yes [facility] Work Phone: Blood Gas Liter Flow 6.0 /min [facility] Work Phone: Blood Gas Notified Whom pranay [facility] Work Phone: Blood Gas Sample Site R Radial [facility] Work Phone: Blood Gas Specimen Type ART [facility] Work Phone: Blood Gas Total CO2 32 [facility]L [facility]: Oxygen Delivery Device Cannula [facility] Work Phone: Blood Gas Liter Flow 6.0 /min [facility] Work Phone: Blood Gas Notified Time 221 [facility] Work Phone: D-Dimer Quantitative (PE/DVT) 1.22 FEU/ug/m 0.27-0.49 [facility] Work Phone: Comment on above: D-Dimer ELEVATED (>0 .49): Additional studies and clinicalassessments are indicated to conclude diagnosis of:Deep Vein Thrombosis (DVT) or Pulmonary Embolism (PE)CRITICAL VALUE VERIFIED. CALLED TO [id number] Kaylah Maurice.RESULTS READ BACK BY SAME . Estimated Creatinine Clearance Calc 25.52 ml/min [facility] Work Phone: Estimated GFR (MDRD) Amer 31 mL/min >60 [facility] Work Phone: Comment on above: GFR Calc Estimated GFR (MDRD) Non-Af Amer 26 mL/min >60 [facility] Work Phone: Comment on above: Non- GFR Calc Troponin I High Sensitivity 41 pg/mL 3.0-54.0 [facility] Work Phone: Comment on above: Please Note: New Rosa Elena t Units and Gender Specific Reference Ranges. For more information see Policy Stat Procedure [place] High Sensitivity Troponin (TNIH) and attachments. Oxygen (BldA) [Partial press ure]on 11-30-2021 Oxygen (Bld) [Partial pressure] 78 mmHG 75-100 [facility] Work Phone: Platelets bldon 11-30-2021 Platelets (Bld) [#/Vol] 127 10*3/uL 150-450 [facility] Work Phone: Protein Test strip Ql (U)on 11-30-2021 Protein Ql (U) 100 mg/dl Negative [facility] Work Phone: Serum or plasma C reactive p rotein measurement (mass/volume)on 11-30-2021 CRP [Mass/Vol] 4.11 mg/L 0.0-3.0 [facility] Work Phone: Comment on above: C-Reactive Protein ( CRP) provides useful information for thediagnosis, therapy and monitoring of inflammatory processesand associated diseases. For the evaluation of Relative Riskfor Cardiovascular Disease, a High Sensitivity CRP (HSCRP)should be ordered. Serum or plasma albumin reese urement (mass/volume)on 11-30-2021 Albumin [Mass/Vol] 3.7 g/dL 3.2-5.0 [facility] Work Phone: Serum or plasma calcium reese urement (mass/volume)on 11-30-2021 Calcium [Mass/Vol] 8.7 mg/dL 8.5-10.1 [facility] Work Phone: Serum or plasma creatinine m easurement (mass/volume)on 11-30-2021 Creatinine [Mass/Vol] 2.04 mg/dL 0.55-1.02 [facility] Work Phone: Comment on above: The validity of the calculated GFR & GFRAA in patients over 70 years has not been determined. Clinical correlation is essential. Serum or plasma ferritin cathy surement (mass/volume)on 11-30-2021 Ferritin [Mass/Vol] 79 ng/mL 8-252 [facility] Work Phone: Serum or plasma urea nitroge n measurement (mass/volume)on 11-30-2021 Urea nitrogen [Mass/Vol] 28 mg/dL 7-18 [facility] Work Phone: Squamous epithelial cells de tection in urine sediment by light microscopyon 11-30-2021 Epithelial cells.squamous LM Ql (Urine sed) 0-5 SEEN /hpf 5-10 [facility] Work Phone: Thin prep Papanicolaou smear with manual screeningon 11-30-2021 Thin prep Papanicolaou smear with manual screening 22 U/L 15-37 [facility] Work Phone: Thin prep Papanicolaou smear with manual screening 6 5-15 [facility] Work Phone: Thin prep Papanicolaou smear with manual screening 198 U/L 84-246 [facility] Work Phone: Urine blood detectionon 07-0 RBC Ql (U) 50 /ul Negative [facility] Work Phone: RBC Ql (U) 0-5 SEEN /hpf 0-5 [facility] Work Phone: Urine clarityon 11-30-2021 Clarity (U) Clear Clear [facility] Work Phone: Urine coarse granular cast d etectionon 11-30-2021 Coarse Granular Casts LM Ql (Urine sed) 5-10 SEEN /lpf 0-5 /lpf [facility] Work Phone: Urine color determinationon 11-30-2021 Color (U) Yellow Yellow [facility] Work Phone: Urine glucose detectionon Glucose Ql (U) Normal mg/dl Normal [facility] Work Phone: Urine leukocyte esterase det ection by dipstickon 11-30-2021 Leukocyte esterase Test strip Ql (U) Negative Negative [facility] Work Phone: Urine pHon 11-30-2021 pH (U) 5.0 [pH] 5.0 - 8.0 [facility] Work Phone: Urine sediment bacteria coun t by microscopy (number/high power field)on 11-30-2021 Bacteria LM.HPF (Urine sed) [#/Area] RARE /hpf None Seen [facility] Work Phone: Urine sediment fine granular cast count by microscopy (number/low power field)on 11-30-2021 Fine Granular Casts LM.LPF (Urine sed) [#/Area] 5-10 SEEN /lpf 0-5 [facility] Work Phone: Urine specific gravity measu rementon 11-30-2021 Specific gravity (U) [Rel density] 1.020 1.002-1.030 [facility] Work Phone: Urobilinogen Auto test strip Ql (U)on 07-03-2022 Urobilinogen Ql (U) Normal mg/dl Normal [facility] Work Phone: pH measurementon 11-30-2021 pH (Unsp spec) 7.10 [pH] 7.35-7.45 [facility] Work Phone: Bronchoalveolar lavage cultu re with Gram stain Respiratory Culture Haemophilus influenzae [facility] Work Phone: Gram stain for investigation of transfusion reaction Microscopic observation Gram stain Nom (Unsp spec) [facility] Work Phone: No Panel Information SARS-CoV-2 & FLU Antigen (Rapid) [facility] Work Phone: Streptococcus pneumoniae Antigen (M [facility] Work Phone: Vital Signs Date Time Vital Sign Value Performing Clinician Facility 01-16-2025 13:21-0400 Body height 167.6 cm Katharine Akhtar MD Work Phone: [facility] 01-16-2025 13:21-0400 Body mass index (BMI) [Ratio] 41.32 kg/m2 Katharine Akhtar MD Work Phone: [facility] 01-16-2025 13:21-0400 Body weight 116.12 kg Katharine Akhtar MD Work Phone: [facility] 01-16-2025 13:21-0400 Diastolic blood pressure 58 mm[Hg] Katharine Akhtar MD Work Phone: [facility] 01-16-2025 13:21-0400 Heart rate 84 /min Katharine Akhtar MD Work Phone: [facility] 01-16-2025 13:21-0400 SaO2% (BldA) [Mass fraction] 94 % Katharine Akhtar MD Work Phone: [facility] 01-16-2025 13:21-0400 Systolic blood pressure 99 mm[Hg] Katharine Akhtar MD Work Phone: [facility] 01-16-2025 13:19-0400 Body mass index (BMI) [Ratio] 41.32 kg/m2 [facility] Work Phone: [facility] 01-16-2025 13:19-0400 Body weight 116.12 kg [facility] Work Phone: [facility] Comment on above: patient stated. unable to stand on scale 01-16-2025 13:19-0400 Heart rate 84 /min [facility] Work Phone: [facility] 01-16-2025 13:19-0400 SaO2% (BldA) [Mass fraction] 94 % [facility] Work Phone: [facility] 01-08-2025 14:00-0400 Inhaled oxygen flow rate 2 L/min Dr. Zee Jose DO Work Phone: [facility] 01-08-2025 09:10-0400 Heart rate 69 /min Dr. Zee Jose DO Work Phone: [facility] 01-08-2025 07:25-0400 Body temperature 97.7 [degF] Dr. Zee Jose DO Work Phone: [facility] 01-08-2025 07:25-0400 Diastolic blood pressure 69 mm[Hg] Dr. Zee Jose DO Work Phone: [facility] 01-08-2025 07:25-0400 Respiratory rate 17 /min Dr. Zee Jose DO Work Phone: [facility] 01-08-2025 07:25-0400 SaO2% (BldA) [Mass fraction] 94 % Dr. Zee Jose DO Work Phone: [facility] 01-08-2025 07:25-0400 Systolic blood pressure 145 mm[Hg] Dr. Zee Jose DO Work Phone: [facility] 01-06-2025 03:00-0400 Inhaled oxygen concentration 32 % Dr. Zee Jose DO Work Phone: [facility] 01-05-2025 14:27-0400 Body height 170.[address] Zee Jose DO Work Phone: [facility] 01-05-2025 14:27-0400 Body weight 117.[address] Zee Jose DO Work Phone: [facility] 01-05-2025 12:50-0400 Body mass index (BMI) [Ratio] 40.5 kg/m2 Dr. Zee Jose DO Work Phone: [facility] 01-05-2025 11:31-0400 Body temperature 96.8 [degF] Dr. Zee Jose DO Work Phone: [facility] 01-05-2025 11:31-0400 Diastolic blood pressure 73 mm[Hg] Dr. Zee Jose DO Work Phone: [facility] 01-05-2025 11:31-0400 Heart rate 75 /min Dr. Zee Jose DO Work Phone: [facility] 01-05-2025 11:31-0400 Respiratory rate 18 /min [facility]. Zee Jose DO [facility] [facility] 01-05-2025 11:31-0400 SaO2% (BldA) [Mass fraction] 91 % Dr. Zee Jose DO Work Phone: [facility] 01-05-2025 11:31-0400 Systolic blood pressure 125 mm[Hg] Dr. Zee Jose DO Work Phone: [facility] 01-05-2025 11:05-0400 Inhaled oxygen concentration 30 % Dr. Zee Jose DO Work Phone: [facility] 01-05-2025 10:30-0400 Inhaled oxygen flow rate 2 L/min Dr. Zee Jose DO Work Phone: [facility] 01-05-2025 09:52-0400 Body height 167.[address] Zee Jose DO Work Phone: [facility] 01-05-2025 09:52-0400 Body mass index (BMI) [Ratio] 42.5 kg/m2 Dr. Zee Jose DO Work Phone: [facility] 01-05-2025 09:52-0400 Body weight 119.[address] Zee Jose DO Work Phone: [facility] 11-03-2024 12:41-0400 Body temperature 98.5 [degF] Dr. Zee Jose DO Work Phone: [facility] 11-03-2024 12:41-0400 Diastolic blood pressure 83 mm[Hg] Dr. Zee Jose DO Work Phone: [facility] 11-03-2024 12:41-0400 Heart rate 67 /min Dr. Zee Jose DO Work Phone: [facility] 11-03-2024 12:41-0400 Respiratory rate 16 /min Dr. Zee Jose DO Work Phone: [facility] 11-03-2024 12:41-0400 SaO2% (BldA) [Mass fraction] 90 % Dr. Zee Jose DO Work Phone: [facility] 11-03-2024 12:41-0400 Systolic blood pressure 153 mm[Hg] Dr. Zee Jose DO Work Phone: [facility] 11-03-2024 08:06-0400 Inhaled oxygen flow rate 2 L/min Dr. Zee Jose DO Work Phone: [facility] 11-03-2024 04:34-0400 Body mass index (BMI) [Ratio] 41.3 kg/m2 Dr. Zee Jose DO Work Phone: [facility] 11-03-2024 04:34-0400 Body weight [address] Zee Jose DO Work Phone: [facility] 11-02-2024 20:32-0400 Inhaled oxygen concentration 93 % Dr. Zee Jose DO Work Phone: [facility] 11-01-2024 14:01-0400 Body height 167.[address] Zee Jose DO Work Phone: [facility] 10-31-2024 19:00-0400 Diastolic blood pressure 52 mm[Hg] Dr. Zee Jose DO Work Phone: [facility] 10-31-2024 19:00-0400 Heart rate 58 /min Dr. Zee Jose DO Work Phone: [facility] 10-31-2024 19:00-0400 Respiratory rate 17 /min Dr. Zee Jose DO Work Phone: [facility] 10-31-2024 19:00-0400 SaO2% (BldA) [Mass fraction] 98 % Dr. Zee Jose DO Work Phone: [facility] 10-31-2024 19:00-0400 Systolic blood pressure 139 mm[Hg] Dr. Zee Jose DO Work Phone: [facility] 10-31-2024 18:30-0400 Inhaled oxygen concentration 30 % Dr. Zee Jose DO Work Phone: [facility] 10-31-2024 17:09-0400 Body temperature 98 [degF] Dr. Zee Jose DO Work Phone: [facility] 10-31-2024 15:00-0400 Inhaled oxygen flow rate 2 L/min Dr. Zee Jose DO Work Phone: [facility] 10-31-2024 13:41-0400 Body mass index (BMI) [Ratio] 41.3 kg/m2 Dr. Zee Jose DO Work Phone: [facility] 10-31-2024 13:41-0400 Body weight 116.[address] Zee Jose DO Work Phone: [facility] 06-03-2025 13:12-0400 Body height 167.[address] Zee Jose DO Work Phone: [facility] 08-24-2022 14:29-0400 Diastolic blood pressure 63 mm[Hg] [facility] 08-24-2022 14:29-0400 Heart rate 68 /min [facility] 08-24-2022 14:29-0400 Respiratory rate 16 /min [facility] 08-24-2022 14:29-0400 SaO2% (BldA) [Mass fraction] 92 % [facility] 08-24-2022 14:29-0400 Systolic blood pressure 98 mm[Hg] [facility] 08-24-2022 12:38-0400 Inhaled oxygen flow rate 6 L/min [facility] 08-24-2022 10:30-0400 Inhaled oxygen concentration 40 % [facility] 08-24-2022 09:14-0400 Body height 172.72 cm [facility] 08-24-2022 09:14-0400 Body mass index (BMI) [Ratio] 39.2 kg/m2 [facility] 08-24-2022 09:14-0400 Body temperature 98.4 [degF] [facility] 08-24-2022 09:14-0400 Body weight 117 kg [facility] 12-04-2021 11:20-0400 Inhaled oxygen flow rate 1 L/min Dr. Zee Jose Work Phone: [facility] Work Phone: 12-04-2021 11:20-0400 SaO2% (BldA) [Mass fraction] 93 % Dr. Zee Jose Work Phone: [facility] Work Phone: 12-04-2021 11:16-0400 Heart rate 69 /min Dr. Zee Jose Work Phone: [facility] Work Phone: 12-04-2021 11:16-0400 Respiratory rate 17 /min Dr. Zee Jose Work Phone: [facility] Work Phone: 12-04-2021 10:40-0400 Body temperature 97.2 [degF] Dr. Zee Jose Work Phone: [facility] Work Phone: 12-04-2021 10:40-0400 Diastolic blood pressure 59 mm[Hg] Dr. Zee Jose Work Phone: [facility] Work Phone: 12-04-2021 10:40-0400 Systolic blood pressure 92 mm[Hg] Dr. Zee Jose Work Phone: [facility] Work Phone: 12-04-2021 09:07-0400 Body height 172.[address] Zee Jose Work Phone: [facility] Work Phone: 12-04-2021 09:07-0400 Body weight [address] Zee Jose Work Phone: [facility] Work Phone: 12-02-2021 06:00-0400 Inhaled oxygen concentration 25 % Dr. Zee Jose Work Phone: [facility] Work Phone: 11-30-2021 23:02-0400 Body mass index (BMI) [Ratio] 35.2 kg/m2 Dr. Zee Jose Work Phone: [facility] Work Phone: 11-30-2021 22:29-0400 Body temperature 99.4 [degF] [facility] Work Phone: 11-30-2021 22:29-0400 Diastolic blood pressure 90 mm[Hg] [facility] Work Phone: 11-30-2021 22:29-0400 Heart rate 103 /min [facility] Work Phone: 11-30-2021 22:29-0400 Respiratory rate 18 /min [facility] Work Phone: 11-30-2021 22:29-0400 SaO2% (BldA) [Mass fraction] 100 % [facility] Work Phone: 11-30-2021 22:29-0400 Systolic blood pressure 145 mm[Hg] [facility] Work Phone: 11-30-2021 22:13-0400 Inhaled oxygen flow rate 8 L/min [facility] Work Phone: 11-30-2021 20:24-0400 Body height 172.72 cm [facility] Work Phone: 11-30-2021 20:24-0400 Body mass index (BMI) [Ratio] 35.6 kg/m2 [facility] Work Phone: 11-30-2021 20:24-040 Body weight 106.4 kg [facility] Work Phone: Encounters Encounter Date Encounter Type Care Provider Facility Start: 03-19-2025 End: 03-19-2025 ambulatory [facility] Facility:[facility] Start: 01-17-2025 End: 01-17-2025 Telephone encounter Katharine Akhtar MD Work Phone: Pulmonary Medicine Comment on above: Insurance Authorizat ion Start: 01-16-2025 End: 01-16-2025 Patient encounter procedure [facility] Work Phone: [facility]UL[facility] Comment on above: Stage 3 severe COPD by GOLD classification ([facility]) (Primary Dx); Chronic respiratory failure with hypoxia and hypercapnia (HCC); YESSY (obstructive sleep apnea); Former cigarette smoker; Morbid obesity ([facility]); Pulmonary hypertension (HCC) Start: 01-16-2025 End: 01-16-2025 ambulatory [facility] Work Phone: PULM LAB COUNTS [facility]CLUDE [facility] [employer] Comment on above: Spirometry Start: 01-08-2025 Non-patient / Non-visit Dr. Laura Sol MD -[facility] Work Phone: Start: 01-07-2025 Non-patient / Non-visit Dr. Laura Sol MD -[facility] Work Phone: Start: 01-06-2025 Non-patient / Non-visit Dr. Laura Sol MD -[facility] Work Phone: Start: 01-05-2025 ambulatory Josafat Taylorjulian Gracia ity:[facility] Start: 01-05-2025 End: 01-08-2025 Evaluation and management of inpatient Dr. Laura Sol MD -[facility] Work Phone: Start: 11-03-2024 Non-patient / Non-visit Dr. Annette Zeng MD -[facility] Work Phone: Start: 11-02-2024 Non-patient / Non-visit Dr. Laura Sol MD [facility] Work Phone: Start: 11-01-2024 Non-patient / Non-visit Dr. Laura Sol MD [facility] Work Phone: Start: 11-01-2024 ambulatory Michelle Gonzales Facility:[facility] Start: 11-01-2024 Non-patient / Non-visit Dr. Michelle chaudhry MD -[facility] Start: 10-31-2024 ambulatory Zhane Stone Facility:[facility] Start: 10-31-2024 End: 11-03-2024 Evaluation and management of inpatient Dr. Teja Zeng MD -[facility] Work Phone: Start: 06-29-2024 End: 06-29-2024 ambulatory Zee Rebeca Facility:[facility] Start: 06-21-2024 End: 06-21-2024 ambulatory [facility] Facility:[facility] Start: 05-03-2024 ambulatory Yehuda Snider Facility:[facility] Start: 05-03-2024 End: 05-03-2024 ambulatory [facility] Facility:[facility] Start: 04-18-2024 End: 04-18-2024 ambulatory Allie Coreas Facility:[facility] Start: 03-29-2024 End: 03-29-2024 ambulatory Madalyn PITTS Facility:[facility] Start: 03-10-2024 ambulatory Yehudajeanine Snider Facility:[facility] Start: 03-10-2024 End: 03-10-2024 ambulatory Zee Jose Facility:[facility] Start: 01-21-2024 ambulatory Con Metzger Facility:[facility] Start: 01-21-2024 End: 01-24-2024 Evaluation and management of inpatient Con Metzger Facility:[facility] Start: 03-25-2023 End: 03-25-2023 ambulatory [facility] Work Phone: Start: 03-25-2023 End: 03-25-2023 Patient encounter procedure [facility]aka Angel Wangannita [facility] Start: 08-24-2022 End: 08-24-2022 Emergency department patient visit [facility]-Emergency Department Start: 12-04-2021 Non-patient / Non-visit Dr. Ramona Jose Work Phone: [facility] Start: 12-03-2021 Non-patient / Non-visit Dr. Ramona Jose Work Phone: [facility] Start: 12-03-2021 Non-patient / Non-visit Dr. Ramona Jose Work Phone: [facility] Start: 12-02-2021 Non-patient / Non-visit Dr. Ramona Jose Work Phone: [facility] Start: 12-02-2021 Non-patient / Non-visit Dr. Ramona Jose Work Phone: [facility] Start: 12-01-2021 Non-patient / Non-visit Dr. Ramona Jose Work Phone: [facility] Start: 12-01-2021 Non-patient / Non-visit Dr. Ramona Jose Work Phone: [facility] Start: 11-30-2021 End: 12-04-2021 Evaluation and management of inpatient [facility]-Intensive Care Unit Procedures Date Procedure Procedure Detail [...] Start: 01-05-[address] Zee Jose DO Work Phone: Start: 01-05-2025 End: 01-05-2025 [...] Visit Pulmonary Medicine [address] [place] [address] Katharine Akhtar MD [address] [place] [address] 3 mth follow up Pulmonary Medicine Comment on above: 3 mth follow up Start: 02-16-2025 End: 02-16-2025 Patient encounter procedure 02/16/2025 3:00 PM EDT Office Visit Neurology [address] [place] [address] Jacquelyn Castillo APRN.[employer] [address] [place] [address] Stage 3 severe COPD by GOLD classification (HCC) [J44.9]; YESSY (obstructive sleep apnea) [G47.33] Neurology Comment on above: Stage 3 severe COPD by GOLD classification (HCC) [J44.9]; YESSY (obstructive sleep apnea) [G47.33] Start: 01-29-2025 Influenza vaccination Influenza Vacc ine (#1) [facility] Start: 01-08-2025 Patient discharge [facility] Start: 01-05-2025 [facility] Start: 01-05-2025 Following clinical p athway protocol [facility] Start: 01-05-2025 Assessment of risk o f venous thromboembolism [facility] Start: 01-05-2025 Insertion of cathete r into peripheral vein [facility] Start: 01-05-2025 Measuring intake and output [facility] Start: 01-05-2025 Oxygen therapy [facility] Start: 01-05-2025 Providing care accor ding to standard [facility] Start: 01-05-2025 Provision of activit y privileges [facility] Start: 01-05-2025 Referral to occupati onal therapist [facility] Start: 01-05-2025 Referral to service [facility] Start: 01-05-2025 [facility] Start: 01-05-2025 Continuous pulse oximetry [facility] Start: 01-05-2025 Admission procedure [facility] Start: 01-05-2025 Hospital admission, emergency, from emergency room, medical nature [facility] Start: 01-05-2025 [facility] Start: 01-05-2025 Dual pressure sponta neous ventilation support [facility] Start: 01-05-2025 Inhalation therapy procedure [facility] Start: 01-05-2025 Patient referral to dietitian [facility] Start: 11-03-2024 Patient discharge [facility] Start: 11-02-2024 Referral to service [facility] Start: 10-31-2024 Following clinical p athway protocol [facility] Start: 10-31-2024 Assessment of risk o f venous thromboembolism [facility] Start: 10-31-2024 Catheterization of vein [facility] Start: 10-31-2024 Insertion of cathete r into peripheral vein [facility] Start: 10-31-2024 Measuring intake and output [facility] Start: 10-31-2024 Oxygen therapy [facility] Start: 10-31-2024 Patient referral to dietitian [facility] Start: 10-31-2024 Physiotherapy of chest [facility] Start: 10-31-2024 Providing care accor ding to standard [facility] Start: 10-31-2024 Referral to occupati onal therapist [facility] Start: 10-31-2024 Referral to service [facility] Start: 10-31-2024 [facility] Start: 10-31-2024 Respiratory pathogen s DNA and RNA panel - Respiratory specimen by NICOLE with probe detection [facility] Start: 10-31-2024 Verification routine [facility] Start: 10-31-2024 Admission procedure [facility] Start: 10-31-2024 Hospital admission, emergency, from emergency room, medical nature [facility] Start: 10-31-2024 Continuous pulse oximetry [facility] Start: 10-31-2024 Dual pressure sponta neous ventilation support [facility] Start: 10-31-2024 Bacteria identified in Blood by Culture Blood Culture [facility] Start: 10-31-2024 Bacteria identified in Urine by Culture Urine Culture [facility] Start: 10-31-2024 Blood culture Blood Culture [facility] Start: 10-31-2024 End: 10-31-2024 [facility] Start: 05-31-2024 Advance Directive Discussion Advance Directive Discussion [facility] Start: 08-24-2022 Continuous pulse oximetry [facility] Start: 08-24-2022 Dual pressure sponta neous ventilation support [facility] Start: 08-24-2022 Blood chemistry [facility] Start: 08-24-2022 Brain natriuretic pe ptide measurement [facility] Start: 08-24-2022 CT of head without contrast Brain/Head without Contrast [facility] Start: 08-24-2022 Troponin I measurement [facility] Start: 08-24-2022 End: 08-24-2022 [facility] Start: 12-04-2021 Patient discharge [facility] Work Phone: Start: 12-03-2021 Care planning and pr oblem solving actions [facility] Work Phone: Start: 12-01-2021 End: 12-02-2021 [facility] Work Phone: Start: 12-01-2021 Application of intermittent pneumatic compression device [facility] Work Phone: Start: 11-30-2021 Following clinical p athway protocol [facility] Work Phone: Start: 11-30-2021 Aspiration precautions [facility] Work Phone: Start: 11-30-2021 Assessment of risk o f venous thromboembolism [facility] Work Phone: Start: 11-30-2021 Consultation [facility] Work Phone: Start: 11-30-2021 Continuous pulse oximetry [facility] Work Phone: Start: 11-30-2021 Elevation of head of bed [facility] Work Phone: Start: 11-30-2021 Fall prevention [facility] Work Phone: Start: 11-30-2021 Incentive spirometry [facility] Work Phone: Start: 11-30-2021 Inhalation therapy procedure [facility] Work Phone: Start: 11-30-2021 Insertion of cathete r into peripheral vein [facility] Work Phone: Start: 11-30-2021 Introduction of urin raymundo catheter [facility] Work Phone: Start: 11-30-2021 Measuring intake and output [facility] Work Phone: Start: 11-30-2021 Methicillin resistan t Staphylococcus aureus screening test [facility] Work Phone: Start: 11-30-2021 Oxygen therapy [facility] Work Phone: Start: 11-30-2021 Providing care accor ding to standard [facility] Work Phone: Start: 11-30-2021 Provision of activit y privileges [facility] Work Phone: Start: 11-30-2021 Referral to occupati onal therapist [facility] Work Phone: Start: 11-30-2021 Referral to service [facility] Work Phone: Start: 11-30-2021 Vital signs measurements [facility] Work Phone: Start: 11-30-2021 Verification routine [facility] Work Phone: Start: 11-30-2021 Brain natriuretic pe ptide measurement [facility] Work Phone: Start: 11-30-2021 Dual pressure sponta neous ventilation support [facility] Work Phone: Start: 11-30-2021 Legionella pneumophi la Ag [Presence] in Urine [facility] Work Phone: Start: 11-30-2021 Streptococcus pneumo niae antigen assay [facility] Work Phone: Start: 11-30-2021 End: 11-30-2021 [facility] Work Phone: Start: 11-30-2021 Viral nucleic acid assay [facility] Work Phone: Start: 11-30-2021 Admission procedure [facility] Work Phone: Start: 11-30-2021 End: 11-30-2021 Blood culture [facility] Work Phone: Start: 11-30-2021 End: 12-01-2021 [facility] Work Phone: Start: 11-30-2021 Patient referral to dietitian [facility] Work Phone: Start: 04-13-2017 Diabetes Screening Diabetes Screenin g [facility] Start: 11-12-2015 Screening for osteoporosis Bone Dens ity Screening [facility] Start: 2010 RSV Vaccine (1 - Ris k 60-74 years 1-dose series) RSV Vaccine (1 - Risk 60-74 years 1-dose series) [facility] Start: 06-06-2010 Screening for malign ant neoplasm of colon [facility] Start: 12-29-2006 Medicare Annual Well ness Visit Medicare Annual Wellness Visit [facility] Start: 03-20-2006 Pneumococcal Vaccine : 50+ (2 of 2 - PCV) Pneumococcal Vaccine: 50+ (2 of 2 - PCV) [facility] Start: 2000 Shingrix Vaccine (1 of 2) Rodrigues grix Vaccine (1 of 2) [facility] Start: 11-12-1995 Lipid panel Lipid Screening [facility] Start: 11-12-1995 Screening for malign ant neoplasm of colon [facility] Start: 1990 Screening for malign ant neoplasm of breast Mammogram Screening [facility] Start: 1969 Urine microalbumin profile DTa P,Tdap,Td Vaccine (1 - Tdap) [facility] Start: 1968 Anxiety Screening Anxiety Screening [facility] Start: 1968 Depression Screening Depression Scre ening [facility] Start: 1968 Hepatitis C screening Hepatitis C [facility] Alanine aminotransfe rase [Enzymatic activity/volume] in Serum or Plasma [facility] Albumin [Mass/volume ] in Serum or Plasma [facility] Alkaline phosphatase [Enzymatic activity/volume] in Serum or Plasma [facility] Anion gap measurement [facility] Aspartate aminotrans ferase [Enzymatic activity/volume] in Serum or Plasma [facility] Bacteria identified in Blood by Culture Blood Culture [facility] Work Phone: Bilirubin, total measurement [facility] Bilirubin.direct [Mass/volume] in Serum or Plasma [facility] Blood culture [facility] Work Phone: Brain natriuretic pe ptide measurement [facility] Work Phone: BUN/Creatinine ratio [facility] C reactive protein [Mass/volume] in Serum or Plasma [facility] Work Phone: Calcium [Mass/volume ] in Serum or Plasma [facility] Carbon dioxide, tota l [Moles/volume] in Serum or Plasma [facility] Chloride [Moles/volu me] in Serum or Plasma [facility] Creatinine [Moles/vo lume] in Serum or Plasma [facility] Ferritin [Mass/volum e] in Serum or Plasma [facility] Work Phone: Glucose [Mass/volume ] in Serum or Plasma [facility] Hematocrit [Volume Fraction] of Blood [facility] Hemoglobin [Mass/vol ume] in Blood [facility] [facility] Work Phone: Leukocytes [#/volume ] in Blood [facility] Mean corpuscular hemoglobin concentration determination [facility] Mean corpuscular hemoglobin determination [facility] Measurement of renal function [facility] Neutrophil count [facility] Neutrophil percent differential count [facility] Patient Education [facility] Work Phone: Patient referral [facility] Work Phone: Platelets [#/volume] in Blood [facility] Potassium [Moles/vol ume] in Serum or Plasma [facility] Red blood cell count [facility] Red cell distributio n width determination [facility] Sodium [Moles/volume ] in Serum or Plasma [facility] Total protein measurement [facility] Urea nitrogen [Mass/volume] in Serum or Plasma [facility] Urine culture [facility] Immunizations Immunization Date Immunization Notes Care Provider Fa [facility] 03-25-2023 influenza, injectabl e, quadrivalent, preservative free Dr. Zee Jose DO Work Phone: [facility] 03-25-2023 influenza virus vacc ine, unspecified formulation Pulm Wstr Work Phone: [facility] 08-27-2020 Covid (Pfizer) [facility] 08-06-2020 Covid (Pfizer) [facility] 03-20-2005 pneumococcal polysaccharide vaccine, [address] Zee Jose DO Work Phone: [facility] Payers Date Payer Category Payer Self-pay [id number] 2006 Medicare MEDICARE [id number] 2006 Medicare [id number] [address] [facility] [id number] 2005 Private Health Insurance [id number] Unknown [id number] 2.16.840.1.670701.3.579 .2.462 Unknown [id number] 2.16840.1.173659.3.579 .2.462 Unknown [id number] 2.16.840.1.993693.3.579 .2.462 Unknown [id number] 2.16840.1.364082.3.579 .2.462 Unknown [id number] 2.16.840.1.300738.3.579 .2.462 Unknown [id number] 2.16840.1.504145.3.579 .2.462 Unknown [id number] 2.16840.1.930991.3.579 .2.462 Unknown [id number] 2.840.1.411309.3.579 .2.462 Unknown [id number] 2.840.1.613878.3.579 .2.462 Unknown [id number] 2.840.1.877522.3.579 .2.462 Unknown [id number] 2.840.1.430365.3.579 .2.462 Unknown [id number] 2.840.1.090829.3.579 .2.462 Unknown [id number] 2.840.1.904234.3.579 .2.462 Unknown [id number] 2.840.1.364245.3.579 .2.462 Unknown [id number] 2.840.1.120835.3.579 .2.462 Unknown [id number] 2.840.1.429790.3.579 .2.462 Unknown [id number] 2.840.1.743121.3.579 .2.462 Unknown [id number] 2.840.1.746962.3.579 .2.462 Unknown [id number] 2.16840.1.081859.3.579 .2.462 Unknown [id number] 2.16840.1.126991.3.579 .2.462 Unknown [id number] 2.840.1.192724.3.579 .2.462 Unknown [id number] 2.16.840.1.304368.3.579 .2.462 Unknown [id number] 2.16.840.1.249279.3.579 .2.462 Unknown [id number] 2.16.840.1.551552.3.579 .2.462 Social History Date Type Detail Facility Start: 11-30-2021 End: 08-24-2022 Tobacco smoking status NYIS Unknown if ever smoked [facility] Start: 03-07-2019 None [facility] Start: 03-07-2019 Spouse/ Signif icant Other [facility] Start: 03-08-2019 Cigarettes [facility] Start: 1950 Sex Assigned At Female [facility] Start: 10-31-2024 End: 01-16-2025 Tobacco smoking status NYIS Ex-smoker (finding) [facility] Start: 03-31-1986 End: 03-31-2006 History of tobacco use Current smoker [facility] Start: 03-31-1986 End: 03-31-2006 History of tobacco use Cigarette Smoker [facility] Start: 01-16-2025 Cigarettes smoked current (pack per day) - Reported 1 [facility] Start: 01-16-2025 Tobacco use and exposure Smokeless tobacco non-user [facility] Start: 01-16-2025 Alcoholic beverage intake Current non-drinker of alcohol (finding) [facility] Start: 01-16-2025 Tobacco use panel [facility] Start: 05-01-2012 National Score (1-10 0), lower number is lower risk 99 [facility] Start: 01-16-2025 Tobacco Comment Quit [address] [facility] Start: 1950 Sex assigned at Not on file [facility] Goals Date Patient Goal Desired Activity /State Functional Status Date Assessment Result Facility 01-08-2025 Functional status Chair;Stand and pivot [facility] Work Phone: 11-03-2024 Functional status Ambulates [facility] Work Phone: 12-04-2021 Functional status Chair [facility] Work Phone: Mental Status Date Assessment Result Facility 01-08-2025 Cognitive function Voice/Name [facility] Work Phone: 11-03-2024 Cognitive function Voice/Name [facility] Work Phone: 08-24-2022 Cognitive function Level Of Consciousness Drowsy [facility] Work Phone: 12-04-2021 Cognitive function Voice/Name [facility] Work Phone: Clinical Notes 01-24-2024 to 03-19-2025 Telephone Encounter - Beti Siegel LPN - 01/17/2025 9:33 AM EDTTelephone Encounter - Beti Siegel LPN - 01/17/2025 9:33 AM EDTPatient Instructions Note Date & Type Note Facility 03-19-2025 Note HNO ID: [id number] Author: JACQUELYN CASTILLO APRN.[employer] DEPARTMENT CHAIR Service: ? Author Type: Nurse Practitioner Type: Progress Notes Filed: 03/23/2025 17:15 Note Text: [facility] New Patient Evaluation PATIENT NAME: Desire Chaudhry DATE OF SERVICE: March 18, 2025 Recording using [employer] software for draft documentation of the visit was discussed with the patient/authorized customer development representative; all questions welcomed and answered. Patient/authorized customer development representative agreed to proceed CONSULTING PROVIDER: Katharine Akhtar (Edy) [address] [facility] [address] REASON FOR CONSULT: Katharine Akhtar sends the [...] BiPAP titration. She is accompanied by a marketing clerk who provides additional history. The patient was [...] CAP Take two capsules three times daily grvooygfcoa-gimtqlcoz-oolxsyft (TRELEGY ELLIPTA) 100-62.5-25 mcg inhalation powder Inhale 1 puff as instr (more content not included)... [facility] 01-17-2025 Telephone encounter Note Breztri is a non covered medication by patient's benefit plan. Prefer Trelegy Ellipta. Please advise. Beti Siegel LPN [facility] 01-17-2025 Miscellaneous Notes Breztri is a non covered medication by patient's benefit plan. Prefer Trelegy Ellipta. Please advise. Beti Siegel LPN documented in this encounter [facility] 01-16-2025 Instructions Katharine Akhtar MD - 01/16/2025 2:16 PM EDT COPD=Chronic obstructive lung disease documented in this encounter [facility] 01-16-2025 History of Present illness Narrative Images from the original note were not included. . [facility] [place] Note Patient name: Desire Chaudhry PCP: Zee Jose DO Referring Physician: same Recording using [employer] software for draft documentation of the visit was discussed with the patient/authorized customer development representative; all questions welcomed and answered. Patient/authorized customer development representative agreed to proceed Consultation requested by Dr. Jose for an opinion regarding COPD. My final recommendations will be communicated back to the requesting physician by way of shared Medical record or letter to requesting physician via [place] mail. CC: COPD HPI: Desire Chaudhry 74 year old female recently admitted to [facility] with acute on chronic hypoxemic and hypercapnic [...] CAP Take two capsules three times daily yjrfwzwqpz-kcfaoibz-bimgmnksjl (BREZTRI AEROSPHERE) 160-9-4.8 mcg/actuation HFA aerosol inhaler Inhale 2 puffs as instructed two times a day. SOCIAL HISTORY[1] Retired from [employer] 31 years Pets: None FAMILY HISTORY Problem [...] which included preparing to see the patient, ekia-io-iqwk patient care, completing clinical documentation, obtaining and/or reviewing separately obtained history, performing a medically appropriate examination, ordering medications, tests, or procedures, and independently interpreting results (not separately reported). Katharine Akhtar MD [facility] [1] Social History Tobacco Use Smoking status: Former Current packs/day: 0.00 Average packs/day: 1 pack/day for 20.0 years (20.0 ttl pk-yrs) Types: Cigarettes Start date: 03/31/1986 Quit date: 03/31/2006 Years since quittin.8 Smokeless tobacco: Never Tobacco comments: Quit 2009 Vaping Use Vaping status: Never Used Substance Use Topics Alcohol use: No Drug use: No documented in this encounter [facility] 01-16-2025 Note HNO ID: [id number] Author: KATHARINE AKHTAR MD Service: ? Author Type: Physician Type: Progress Notes Filed: 01/16/2025 16:32 Note Text: . [facility] [place] Note Patient name: Desire Chaudhry PCP: Zee Jose DO Referring Physician: same Recording using [employer] software for draft documentation of the visit was discussed with the patient/authorized customer development representative; all questions welcomed and answered. Patient/authorized customer development representative agreed to proceed Consultation requested by Dr. Jose for an opinion regarding COPD. My final recommendations will be communicated back to the requesting physician by way of shared Medical record or letter to requesting physician via [place] mail. CC: COPD HPI: Desire Chaudhry 74 year old female recently admitted to [facility] with acute on chronic hypoxemic and hypercapnic [...] CAP Take two capsules three times daily gtgbxjaumm-sacnkfjt-bfwtzfkppp (BREZTRI AEROSPHERE) 160-9-4.8 mcg/actuation HFA aerosol inhaler Inhale 2 puffs as instructed two times a day. SOCIAL HISTORY[1] Retired from [employer] 31 years Pets: None FAMILY HISTORY Problem [...] allergy problems. CARDIOVASCU (more content not included)... [facility] 01-08-2025 Consult note Note Date/Time January 08, 2025 2:44pm [facility] Medical Records Department [address] [place] [address] Counseling Note - Pharmacy 01/08/25 1443 MR#: [id number] Acct: [id number] Name: DESIRE CHAUDHRY Rep #:[id number] : 1950 74 From: Mansi Flores PCP: Dr. Zee Jose, DO Status:ADM IN Y Location: [place] [address] Pharmacy [facility] Counseling Pharmacy Service has performed discharge medication [...] Signature (if applicable): Date CC: ~ Signed [facility] Work Phone: 1(407) 184-762808-11-2025 Discharge summary [facility] Medical Records Department [address] [place] [address] Discharge Summary 01/08/25 1401 MR#: [id number] Acct: [id number] Name: DESIRE CHAUDHRY Rep #:[id number] : 1950 74 From: Laura Sol MD PCP: Dr. Zee Jose DO Status:ADM IN Location: [place] [address] Providers Date of Admission: 01/05/25 Date of Discharge: 01/08/25 Primary Care Physician: Dr. Zee Jose DO Consultations 01/05/25 18:43 Consult: Dental Service Chief / Pulmonary Medicine Routine Consulting Provider: Intensivists/Pulmonary [...] in the ED were BP of 153/65, SD of 72, RR of 20 and temp [...] 3 day course of PO levaquin 750mg [id number]. Sheis to follow up with her PCP and organ assembler within 1-2 weeks. Patient seen and examined [...] 87.5 H, Lymph % (Auto) 6.7 L, [place] % (Auto) 4.7, Eos % (Auto) 0.0, [...] Self Care Charges/Coding Visit Charges Inpatient E&M: 57733 Disch Hosp >30min 01/08/25 1632 Cosigner Signature (if applicable): CC: Dr. Zee Jose DO; Dr. Laura Sol MD~ Signed [facility]08-11-2025 Discharge summary Author Laura [facility] Note Date/Time January 08, 2025 2: 01pm [facility] Medical Records Department [address] [place] [address] Instructions for Home/Discharge Instructions 01/08/25 1359 MR#: [id number] Acct: [id number] Name: DESIRE CHAUDHRY Rep #:[id number] : 1950 74 From: Laura Sol MD [...] CC: Dr. Zee Jose DO ~ Signed [facility] Work Phone: 1(428) 774-366808-11-2025 Discharge summary Author [facility] Note Date/Time January 08, 2025 4: 38pm [facility] Medical Records Department [address] [place] [address] Discharge Summary 01/08/25 1401 MR#: [id number] Acct: [id number] Name: DESIRE CHAUDHRY Rep #:[id number] : 1950 74 From: Laura Sol MD PCP: Dr. Zee Jose DO Status:ADM IN Location: [facility] TIT446- 1 Providers Date of Admission: 01/05/25 Date of Discharge: 01/08/25 Primary Care Physician: Dr. Zee Jose DO Consultations 01/05/25 18:43 Consult: Dental Service Chief / Pulmonary Medicine Routine Consulting Provider: Intensivists/Pulmonary [...] in the ED were BP of 153/65, SD of 72, RR of 20 and temp [...] 3 day course of PO levaquin 750mg [id number]. She is to follow up with her PCP and organ assembler within 1-2 weeks. Patient seen and examined [...] 87.5 H, Lymph % (Auto) 6.7 L, [place] % (Auto) 4.7, Eos % (Auto) 0.0, [...] Self Care Charges/Coding Visit Charges Inpatient E&M: 83740 Disch Hosp >30min 01/08/25 1638 <Electronically signed by Laura Sol MD> Cosigner Signature (if applicable): CC: Dr. Zee Jose DO; Dr. Laura Sol MD~ Signed [facility] Work Phone: 1(642) 299-748908-11-2025 Consult note [facility] Medical Records Department [address] [place] [address] Counseling Note - Pharmacy 01/08/25 1443 MR#: [id number] Acct: [id number] Name: ISIDORODESIRE K Rep #:[id number] : 1950 74 From: Mansi Flores PCP: Dr. Zee Jose, DO Status:ADM IN Y Location: [place] [address] Pharmacy [facility] Pharmacy Service has performed discharge medication reconciliation [...] Signature (if applicable): Date CC: ~ Signed [facility]08-11-2025 Discharge summary [facility] Medical Records Department [address] [place] [address] Instructions for Home/Discharge Instructions 01/08/25 1359 MR#: [id number] Acct: [id number] Name: DESIRE CHAUDHRY Rep #:[id number] : 1950 74 From: Laura Sol MD [...] CC: Dr. Zee Jose DO ~ Signed [facility]08-11[facility] Discharge instructionsAdditional Instructions Date of Discharge: 01/08/25[facility] Work Phone: 1(996) 620-579708-10-2025 Progress note Author Matthew Tal [facility] Note Date/Time January 07, 2025 7: 40pm [facility] Medical Records Department [address] [place] [address] Progress Note - Dental Service Chief 01/07/25 180 MR#: [id number] Acct: [id number] Name: DESIRE CHAUDHRY Rep #:[id number] : 1950 74 From: Matthew Cheatham PCP: Dr. Zee Jose DO Status:ADM IN Location: [place] [address] Objective Data Objective Data Vital Signs: Vital [...] mls @ 15 mls/hr 01/05/25 14:30 IV .[id number] PRN Saline Flush Sodium Chloride 250 mls @ 15 mls/hr 01/05/25 14:30 IV .[id number] PRN Additional IVPB Infusion Methylprednisolone Sodium Succinate [...] Smz/Tmp Ds Tablet PO 0.5 tablet BIDCM [facility] Administration Lab / Micro Data 01/07/25 [...] 86.2 H, Lymph % (Auto) 8.3 L, [place] % (Auto) 4.7, Eos % (Auto) 0.0, [...] Cosigner Signature (if applicable): CC: ~ Signed [facility] Work Phone: 1(913) 244-344808-10-2025 Progress note [facility] Medical Records Department [address] [place] [address] Progress Note - Dental Service Chief 01/07/25 1805 MR#: [id number] Acct: [id number] Name: DESIRE CHAUDHRY Rep #:[id number] : 1950 74 From: Matthew Cheatham PCP: Dr. Zee Jose, DO Status:ADM IN Location: [address] Objective Data Objective Data Vital [...] Intake Total 1450 Output Total 7750 Balance -9760 Current Meds Ordered / Administered: Current meds [...] mls @ 15 mls/hr 01/05/25 14:30 IV .[id number] PRN Saline Flush Sodium Chloride 250 mls @ 15 mls/hr 01/05/25 14:30 IV .[id number] PRN Additional IVPB Infusion Methylprednisolone Sodium Succinate [...] 86.2 H, Lymph % (Auto) 8.3 L, [place] % (Auto) 4.7, Eos % (Auto) 0.0, [...] Cosigner Signature (if applicable): CC: ~ Signed [facility]08-10-2025 Progress note Author Laura Sol [facility] Note Date/Time January 07, 2025 3: 57pm [facility] Medical Records Department [address] [place] [address] Progress Note 01/07/25 1054 MR#: [id number] Acct: [id number] Name: DESIRE CHAUDHRY Rep #:[id number] : 1950 74 From: Laura Sol MD PCP: Dr. Zee Jose, DO Status:ADM IN Location: [place] [address] 1 Subjective Subjective Patient seen and examined. [...] 86.2 H, Lymph % (Auto) 8.3 L, [place] % (Auto) 4.7, Eos % (Auto) 0.0, [...] onset A-fib. Charges/Coding Visit Charges Inpatient E&M: 65156 Subs Hosp L2 01/07/25 7537 <Electronically signed by Laura Sol MD> Laura Sol MD Cosigner Signature (if applicable): CC: ~ Signed [facility] Work Phone: 1(107) 286-333508-10-2025 Progress note [facility] Medical Records Department [address] [place] [address] Progress Note 01/07/25 1054 MR#: [id number] Acct: [id number] Name: DESIRE CHAUDHRY Rep #:[id number] : 1950 74 From: Laura Sol MD PCP: Dr. Zee Jose, DO Status:ADM IN Location: [place] [address] 1 Subjective Subjective Patient seen and examined. [...] 86.2 H, Lymph % (Auto) 8.3 L, [place] % (Auto) 4.7, Eos % (Auto) 0.0, [...] onset A-fib. Charges/Coding Visit Charges Inpatient E&M: 61659 Subs Hosp L2 01/07/25 7591 Laura Sol MD Cosigner Signature (if applicable): CC: ~ Signed [facility]08-10-2025 Progress note Author Daisy Nicole [facility] Note Date/Time January 06, 2025 11: 28pm [facility] Medical Records Department [address] [place] [address] Progress Note - Hospitalist 01/06/252323 MR#: [id number] Acct: [id number] Name: DESIRE CHAUDHRY Rep #:[id number] : 1950 74 From: Daisy Rivera MD PCP: Dr. Zee Jose, DO Status:ADM IN Location: [place] [address] Hospitalist Note Patient with onset of chest fluttering, on monitor had onset PAF with RVR, does not appear to have history, already on eliquis. Will administer cardizem bolus and add oral BB regimen pending response to bolus. Recent ECHO 10/31/24 noted. Will obtain mag, TSH levels. 01/06/252327 <Electronically signed by Daisy Rivera MD> Cosigner Signature (if applicable): CC: ~ Signed [facility] Work Phone: 1(504) 918-409708-09-2025 Progress note [facility] Medical Records Department [address] [place] [address] Progress Note - Hospitalist 01/06/254 MR#: [id number] Acct: [id number] Name: DESIRE CHAUDHRY Rep #:[id number] : 1950 74 From: Daisy Rivera MD PCP: Dr. Zee Jose, DO Status:ADM IN Location: [place] [address] Hospitalist Note Patient with onset of chest fluttering, on monitor had onset PAF with RVR, does not appear to have history, already on eliquis. Will administer cardizem bolus and add oral BB regimen pending responseto bolus. Recent ECHO 10/31/24 noted. Will obtain mag, TSH levels. 01/06/252327 Cosigner Signature (if applicable): CC: ~ Signed [facility]08-09-2025 Progress note [facility] Note Date/Time January 06, 2025 4:3 9pm [facility] Medical Records Department [address] [place] [address] Progress Note 01/06/25 1635 MR#: [id number] Acct: [id number] Name: DESIRE CHAUDHRY Rep #:[id number] : 1950 74 From: Laura Sol MD PCP: Dr. Zee Jose, DO Status:ADM IN Location: [place] [address] Subjective Subjective Patient seen and examined. She [...] 83.7 H, Lymph % (Auto) 8.5 L, [place] % (Auto) 6.6, Eos % (Auto) 0.0, [...] medically stable Charges/Coding Visit Charges Inpatient E&M: 46718 Subs Hosp L2 01/06/25 1639 <Electronically signed by Laura Sol MD> Laura Sol MD Cosigner Signature (if applicable): CC: ~ Signed [facility] Work Phone: 1(685) 981-250908-09-2025 Progress note [facility] Medical Records Department [address] [place] [address] Progress Note 01/06/25 1635 MR#: [id number] Acct: [id number] Name: DESIRE CHAUDHRY Rep #:[id number] : 1950 74 From: Laura Sol MD PCP: Dr. Zee Jose, DO Status:ADM IN Location: [place] [address] Subjective Subjective Patient seen and examined. She [...] 83.7 H, Lymph % (Auto) 8.5 L, [place] % (Auto) 6.6, Eos % (Auto) 0.0, [...] medically stable Charges/Coding Visit Charges Inpatient E&M: 67835 Subs Hosp L2 01/06/25 1639 Laura Sol MD Cosigner Signature (if applicable): CC: ~ Signed [facility]08-09-2025 Progress note Author Matthew Parada [facility] Note Date/Time January 06, 2025 1:2 7pm [facility] Medical Records Department [address] [place] [address] Progress Note - Dental Service Chief 01/06/25 1326 MR#: [id number] Acct: [id number] Name: DESIRE CHAUDHRY Rep #:[id number] : 1950 74 From: Matthew Cheatham PCP: Dr. Zee Jose, DO Status:ADM IN Location: [place] [address] Objective Data Objective Data Vital Signs: Vital [...] mls @ 15 mls/hr 01/05/25 14:30 IV .[id number] PRN Saline Flush Sodium Chloride 250 mls @ 15 mls/hr 01/05/25 14:30 IV .E79A72K PRN Additional IVPB Infusion Methylprednisolone Sodium Succinate [...] 83.7 H, Lymph % (Auto) 8.5 L, [place] % (Auto) 6.6, Eos % (Auto) 0.0, [...] Cosigner Signature (if applicable): CC: ~ Signed [facility] Work Phone: 1(323) 235-227308-09-2025 Progress note [facility] Medical Records Department [address] [place] [address] Progress Note - Dental Service Chief 01/06/25 1326 MR#: [id number] Acct: [id number] Name: DESIRE CHAUDHRY Rep #:[id number] : 1950 74 From: Matthew Cheatham PCP: Dr. Zee Jose, DO Status:ADM IN Location: [place] [address] Objective Data Objective Data Vital Signs: Vital [...] mls @ 15 mls/hr 01/05/25 14:30 IV .M02Y44Z PRN Saline Flush Sodium Chloride 250 mls @ 15 mls/hr 01/05/25 14:30 IV .V35E06R PRN Additional IVPB Infusion Methylprednisolone Sodium Succinate [...] 83.7 H, Lymph % (Auto) 8.5 L, [place] % (Auto) 6.6, Eos % (Auto) 0.0, [...] Cosigner Signature (if applicable): CC: ~ Signed [facility]08-09-2025 Consult note Author Raji Hammond [facility] Note Date/Time January 06, 2025 4:5 1am [facility] Medical Records Department [address] [place] [address] Consultation - Dental Service Chief 01/06/25 0332 MR#: [id number] Acct: [id number] Name: DESIRE CHAUDHRY Rep #:[id number] : 1950 74 From: Raji Hammond MD PCP: Dr. Zee Jose, DO Status:ADM IN Location: [place] [address] HPI Consult Data Date of Consult: 01/06/25 [...] of sleep study and home noninvasive ventilation. [facility] Medical History Chronic anemia Constipation Emphysema [...] mls @ 15 mls/hr 01/05/25 14:30 IV .X76C77E PRN Saline Flush Sodium Chloride 250 mls @ 15 mls/hr 01/05/25 14:30 IV .D23F14S PRN Additional IVPB Infusion Methylprednisolone Sodium Succinate [...] 77.1 H, Lymph % (Auto) 9.6 L, [place] % (Auto) 8.5, Eos % (Auto) 0.2, [...] enlargement. Interstitial and alveolar edema. Reading Location: [facility] Chest CT 01/05/25 11:11 IMPRESSION: Coronary artery calcification (CAC) is is present Small bilateral effusions right greater than left with consolidation in the right lower lobe and possible atelectasis in the left lower lobe. Minimal pericardial thickening. Reading Location: [id number] Assessment and Plan . Assessment and plan: [...] to prevent recurrence; coordinate with pulmonology. 01/06/25 0457 <Electronically signed by Raji Hammond MD> Cosigner Signature (if applicable): CC: Dr. Zee Jose, ~ Signed [facility] Work Phone: 1(103) 747-427208-09-2025 Consult note [facility] Medical Records Department [address] [place] [address] Consultation - Dental Service Chief 01/06/25 0332 MR#: [id number] Acct: [id number] Name: DESIRE CHAUDHRY Rep #:[id number] : 1950 74 From: Raji Hammond MD PCP: Dr. Zee Jose, Status:ADM IN Location: [place] [id number]- 1 HPI Consult Data Date of Consult: [...] of sleep study and home noninvasive ventilation. [facility] Medical History Chronic anemia Constipation Emphysema [...] mls @ 15 mls/hr 01/05/25 14:30 IV .[id number] PRN Saline Flush Sodium Chloride 250 mls @ 15 mls/hr 01/05/25 14:30 IV .[id number] PRN Additional IVPB Infusion Methylprednisolone Sodium Succinate [...] 77.1 H, Lymph % (Auto) 9.6 L, [place] % (Auto) 8.5, Eos % (Auto) 0.2, [...] enlargement. Interstitial and alveolar edema. Reading Location: [facility] Chest CT 01/05/25 11:11 IMPRESSION: Coronary artery calcification (CAC) is is present Small bilateral effusions right greater than left with consolidation in the right lower lobe and possible atelectasis in the left lower lobe. Minimal pericardial thickening. Reading Location: [facility] Assessment and Plan . Assessment and plan: [...] applicable): CC: Dr. Zee Jose, DO~ Signed [facility]08-09-2025 Discharge summary Author Lobito Benson [facility] Note Date/Time January 05, 2025 10: 06pm [facility] Medical Records Department [address] [place] [address] Emergency Department Summary 01/05/25 MR#: [id number] Acct: [id number] Name: DESIRE CHAUDHRY Rep #:[id number] : 1950 74 From: Lobito Benson MD PCP: Dr. Zee Jose, Status:ADM IN Location: [place] [address] HPI History of Present Illness Chief Complaint: [...] chills. Denies recent illness. Was hospitalized at [facility] for similar event in early October. PE [...] edema or cords. Normal dorsi plantarflexion. 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 Neurologically she is awake and alert. [...] 77.1 H Lymph % (Auto) 9.6 L [place] % (Auto) 8.5 Eos % (Auto) 0.2 [...] rate of 65 no acute signs of VT or ischemia. Discharge Plan Triage Chief Complaint: [...] Jose, [Primary Care Provider] - Print Language: Kenyan What to do if you have Problems For any increased pain, shortness of breath, bleeding, nausea or vomiting, chestpain, or any unexpected problems, contact your Primary Care Provider. Call [facility] ([phone]) or report to the closest Emergency Room. Call 911 if necessary. 01/05/252205 <Electronically signed by Lobito Benson MD> Cosigner Signature (if applicable): CC: Dr. Zee Jose, DO ~ Signed [facility] Work Phone: 1(716) 223-732608-08-2025 Discharge summary [facility] Medical Records Department [address] [place] [address] Emergency Department Summary 01/05/25 MR#: [id number] Acct: [id number] Name: DESIRE CHAUDHRY Rep #:[id number] : 1950 74 From: Lobito Benson MD PCP: Dr. Zee Jose, Status:ADM IN Location: [place] [address] HPI History of Present Illness Chief Complaint: [...] chills. Denies recent illness. Was hospitalized at [facility] for similar event in early October. PE Risk Factors: Positive for Prior DVT or PE and Recent immobilization; Negative for Cancer, OCP +Smoking + > 35, Recent surgery or Recent travel Prior similar symptoms: Yes Recent Illness/[facility]ospital[facility] Medical History Chronic anemia Constipation Emphysema [...] without edema or cords. Normaldorsi plantarflexion. 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 Neurologically she is awake and alert. [...] 77.1 H Lymph % (Auto) 9.6 L [place] % (Auto) 8.5 Eos % (Auto) 0.2 [...] rate of 65 no acute signs of VT or ischemia. Discharge Plan Triage Chief Complaint: [...] DO [Primary Care Provider] - Print Language: Kenyan What to do if you have Problems For any increased pain, shortness of breath, bleeding, nausea or vomiting, chestpain, or any unexpected problems, contact your Primary Care Provider. Call [facility] ([phone]) or report tothe closest Emergency Room. Call 911 if necessary. 01/05/252205 Cosigner Signature (if applicable): CC: Dr. Zee Jose DO ~ Signed [facility]08-08-2025 History and physical note Author Laura Sol [facility] Note Date/Time January 05, 2025 6:2 3pm [facility] Medical Records Department [address] [place] [address] H&P Exam - Hospitalist 01/05/25 1107 MR#: [id number] Acct: [id number] Name: DESIRE CHAUDHRY Rep #:[id number] : 1950 74 From: Laura Sol MD PCP: Dr. Zee Jose, DO Status:ADM IN Location: [address] 1 HPI - General General Date [...] in the ED were BP of 153/65, SD of 72, RR of 20 and temp [...] cardiac enlargement with interstitial and alveolar edema. [facility] Medical History Chronic anemia Constipation Emphysema [...] 77.1 H, Lymph % (Auto) 9.6 L, [place] % (Auto) 8.5, Eos % (Auto) 0.2, [...] enlargement. Interstitial and alveolar edema. Reading Location: [id number] Assessment & Plan Assessment/Plan (1) Increasing shortness [...] this is what patient wanted. * Total erfr-dp-wxxr time 17 minutes. Charges/Coding Visit Charges Inpatient E&M: 58517 Init Hosp L3 Procedures Hospitalists Procedures: 36464 Advncd Care Plan 30 Min 01/05/25 2283 <Electronically signed by Laura Sol MD> Cosigner Signature (if applicable): CC: Dr. Zee Jose DO; Dr. Laura Sol MD~ Signed [facility] Work Phone: 1(468) 249-686508-08-2025 History and physical note [facility] Medical Records Department [address] [place] [address] H&P Exam - Hospitalist 01/05/25 1107 MR#: [id number] Acct: [id number] Name: DESIRE CHAUDHRY Rep #:[id number] : 1950 74 From: Laura Sol MD PCP: Dr. Zee Rebeca, DO Status:ADM IN Location: [facility] [id number]- 1 HPI - General General Date of [...] in the ED were BP of 153/65, SD of 72, RR of 20 and temp [...] cardiac enlargement with interstitial and alveolar edema. [facility] Medical History Chronic anemia Constipation Emphysema [...] 77.1 H, Lymph % (Auto) 9.6 L, [place] % (Auto) 8.5, Eos % (Auto) 0.2, [...] enlargement. Interstitial and alveolar edema. Reading Location: [id number] Assessment & Plan Assessment/Plan (1) Increasing shortness [...] that this is what patientwanted. * Total rywr-hh-kquj time 17 minutes. Charges/Coding Visit Charges Inpatient E&M: 29708 Init Hosp L3 Procedures Hospitalists Procedures: 23516 Advncd Care Plan 30 Min 01/05/25 1823 Cosigner Signature (if applicable): CC: Dr. Zee Jose DO; Dr. Laura Sol MD~ Signed [facility]08-08-2025 Radiology Diagnostic study note [facility] Imaging Services [address] [place] [address] Chest without Contrast MR#: [id number] Acct: [id number] Name: DESIRE CHAUDHRY Rep #: [id number] : 1950 F 74 From: Fredy Leyva MD PCP: Dr. Zee Jose DO Status: ADM IN Study:Chest without Contrast Date of Exam: 01/05/25 Exam# [id number] Ordering Dr: Acosta Benson MD PROCEDURE: CHEST [...] lower lobe. Minimal pericardial thickening. Reading Location: [id number] CC: Dr. Lobito Benson MD; Dr. Zee Jose DO ~ Maintenance Inspector: Signed [facility]08-08-2025 Radiology Diagnostic study note [facility] Imaging Services [address] [place] [address] Chest PA and Lateral MR#: [id number] Acct: [id number] Name: DESIRE CHAUDHRY Rep #: [id number] : 1950 F 74 From: Alondra Fraser MD PCP: Dr. Zee Jose DO Status: REG ER Study:Chest PA and Lateral Date of Exam: 01/05/25 Exam# [id number] Ordering Dr: Acosta Benson MD PROCEDURE: CHEST [...] enlargement. Interstitial and alveolar edema. Reading Location: [id number] CC: Dr. Lobito Benson MD; Dr. Zee Jose DO ~ Maintenance Inspector: Signed [facility]06-06-2025 [facility]06-06-2025 Discharge summary [facility] Medical Records Department [address] [place] [address] Instructions for Home/Discharge Instructions 11/03/24 1129 MR#: [id number] Acct: [id number] Name: DESIRE CHAUDHRY Rep #:[id number] : 1950 73 From: Teja post MD [...] DO; Dr. Laura Sol MD ~ Signed [facility]06-05-2025 Progress note Author [facility] Note Date/Time November 02, 2024 4:30p m [facility] Medical Records Department [address] [place] [address] Progress Note 11/02/24 1627 MR#: [id number] Acct: [id number] Name: DESIRE CHAUDHRY Rep #:[id number] : 1950 73 From: Laura Sol MD PCP: Dr. Zee Jose DO Status:ADM IN Location: [place] [address] Subjective Subjective Patient seen and examined. She [...] 86.9 H, Lymph % (Auto) 7.4 L, [place] % (Auto) 4.8, Eos % (Auto) 0.0, [...] 24 hours. Charges/Coding Visit Charges Inpatient E&M: 50734 Subs Hosp L2 11/02/24 1630 <Electronically signed by Laura Sol MD> Laura Sol MD Cosigner Signature (if applicable): CC: ~ Signed [facility] Work Phone: 1(878) 284-140406-05-2025 Progress note [facility] Medical Records Department [address] [place] [address] Progress Note 11/02/24 1627 MR#: [id number] Acct: [id number] Name: DESIRE CHAUDHRY Rep #:[id number] : 1950 73 From: Laura Sol MD PCP: Dr. Zee Jose, DO Status:ADM IN Location: [place] [address] Subjective Subjective Patient seen and examined. She [...] 86.9 H, Lymph % (Auto) 7.4 L, [place] % (Auto) 4.8, Eos % (Auto) 0.0, [...] 24 hours. Charges/Coding Visit Charges Inpatient E&M: 06933 Subs Hosp L2 11/02/24 1630 Laura Sol MD Cosigner Signature (if applicable): CC: ~ Signed [facility]06-04-2025 Progress note Author [facility] Note Date/Time November 01, 2024 5:43p m [facility] Medical Records Department [address] [place] [address] Progress Note 11/01/24 1634 MR#: [id number] Acct: [id number] Name: DESIRE CHAUDHRY Rep #:[id number] : 1950 73 From: Laura Sol MD PCP: Dr. Zee Jose, DO Status:ADM IN Location: [place] [address] Subjective Subjective Patient seen and examined. She [...] 88.9 H, Lymph % (Auto) 7.3 L, [place] % (Auto) 2.9, Eos % (Auto) 0.0, [...] on eliquis Charges/Coding Visit Charges Inpatient E&M: 09757 Subs Hosp L2 11/01/24 1743 <Electronically signed by Laura Sol MD> Laura Sol MD Cosigner Signature (if applicable): CC: ~ Signed [facility] Work Phone: 1(568) 778-856606-04-2025 Progress note [facility] Medical Records Department [address] [place] [address] Progress Note 11/01/24 1634 MR#: [id number] Acct: [id number] Name: DESIRE CHAUDHRY Rep #:[id number] : 1950 73 From: Laura Sol MD PCP: Dr. Zee Jose, DO Status:ADM IN Location: [place] [address] Subjective Subjective Patient seen and examined. She [...] 88.9 H, Lymph % (Auto) 7.3 L, [place] % (Auto) 2.9, Eos % (Auto) 0.0, [...] on eliquis Charges/Coding Visit Charges Inpatient E&M: 37867 Subs Hosp L2 11/01/24 1743 Laura Sol MD Cosigner Signature (if applicable): CC: ~ Signed [facility]06-04-2025 Progress note Author Zhane Stone [facility] Note Date/Time October 31, 2024 10:16 pm [facility] Medical Records Department [address] [place] [address] Progress Note - Hospitalist 10/31/245 MR#: [id number] Acct: [id number] Name: DESIRE CHAUDHRY Rep #:[id number] : 1950 73 From: Zhane Stone DO PCP: Dr. eZe Jose, DO Status:ADM IN Location: [facility] [id number]- 1 Sepsis Attestation Sepsis Alert: Yes Sepsis Attestation: Sepsis Ruled Out Date exam was performed: 10/31/24 Time exam was performed: 19:00 10/31/24 6408 <Electronically signed by Zhane Stone DO> Cosigner Signature (if applicable): CC: ~ Signed [facility] Work Phone: 1(163) 865-999306-04-2025 History and physical note Author Zhane Stone [facility] Note Date/Time October 31, 2024 10:15 pm [facility] Medical Records Department [address] [place] [address] H&P Exam - Hospitalist 10/31/24 1810 MR#: [id number] Acct: [id number] Name: DESIRE CHAUDHRY Rep #:[id number] : 1950 73 From: Zhane Stone DO PCP: Dr. Zee Jose, Status:ADM IN Location: [place] [id number]- 1 HPI - General General Date of Admission: 10/31/24 Date of Service: 10/31/24 Chief Complaint: Shortness of breath HPI Narrative DESIRE CHAUDHRY, is a 73 F who presented to the emergency department at [facility] on 10/31/2024 with a chief complaint of [...] to her kyphosis and instrumentation for fixation. [facility] Medical History Chronic anemia Constipation Emphysema [...] 78.2 H, Lymph % (Auto) 10.1 L, [place] % (Auto) 9.9, Eos % (Auto) 0.2, [...] Clarity Cloudy, Urine pH 6.0, Ur Specific [place] 1.020, Urine Protein 500 H, Urine Glucose [...] Other nonacute findings documented above. Reading Location: [place] [address] Assessment & Plan Assessment/Plan (1) Acute respiratory [...] no intubation Charges/Coding Visit Charges Inpatient E&M: 99637 Init Hosp L3 10/31/242154 <Electronically signed by Zhane Stone DO> Cosigner Signature (if applicable): CC: Dr. Zhane Stone DO; Dr. Zee Jose DO~ Signed ADDENDUM by Dr. Zhane Stone DO on 10/31/24 at 2215 Addendum . 10/31/242214<Electronically signed by Zhane Stone DO> Cosigner Signature (if applicable): cc: Dr. Zhane Stone DO; Dr. Zee Jose DO ~* Signed [facility] Work Phone: 1(220) 280-503206-03-2025 Progress note [facility] Medical Records Department [address] [facility] [place] [address] Progress Note - Hospitalist 10/31/242214 MR#: [id number] Acct: [id number] Name: DESIRE CHAUDHRY Rep #:[id number] : 1950 73 From: Zhane Stone DO PCP: Dr. Zee Jose DO Status:ADM IN Location: [place] [id number]- 1 Sepsis Attestation Sepsis Alert: Yes Sepsis Attestation: Sepsis Ruled Out Date exam was performed: 10/31/24 Time exam was performed: 19:00 10/31/242215 Cosigner Signature (if applicable): CC: ~ Signed [facility]06-03-2025 History and physical note [facility] Medical Records Department [address] [place] [address] H&P Exam - Hospitalist 10/31/24 1810 MR#: [id number] Acct: [id number] Name: DESIRE CHAUDHRY Rep #:[id number] : 1950 73 From: Zhane Stone DO PCP: Dr. Zee Jose DO Status:ADM IN Location: [place] [id number]- 1 HPI - General General Date of Admission: 10/31/24 Date of Service: 10/31/24 Chief Complaint: Shortness of breath HPI Narrative DESIRE CHAUDHRY, is a 73 F who presented to the emergency department at [facility] on10/31/2024 with a chief complaint of shortness [...] to her kyphosis and instrumentation for fixation. [facility] Medical History Chronic anemia Constipation Emphysema [...] 78.2 H, Lymph % (Auto) 10.1 L, [place] % (Auto) 9.9, Eos % (Auto) 0.2, [...] Clarity Cloudy, Urine pH 6.0, Ur Specific [place] 1.020, Urine Protein 500 H, Urine Glucose [...] Other nonacute findings documented above. Reading Location: [place] [address] Assessment & Plan Assessment/Plan (1) Acute respiratory [...] no intubation Charges/Coding Visit Charges Inpatient E&M: 79296 Init Hosp L3 10/31/242154 Cosigner Signature (if applicable): CC: Dr. Zhane Stone DO; Dr. Zee Jose DO~ Signed ADDENDUM by Dr. Zhane Stone DO on 10/31/24 at 2215 Addendum . 10/31/242214 Cosigner Signature (if applicable): cc: Dr. Zhane Stone DO; Dr. Zee Jose DO ~* Signed [facility]06-03-2025 Evaluation note* Diagnosis Onset Date Resolution Status Admit Date Acute respiratory failure wi th hypoxia and hypercapnia acute October 6:12pm CHF (congestive heart failure) acute October 31, 2024 6:12pm Elevated troponin acute October 6:12pm Chronic obstructive pulmonar y disease with (acute) exacerbation chronic October 31, 2024 6:12pm [facility] Work Phone: 1(876) 209-927506-03-2025 Evaluation note* Diagnosis Onset Date Resolution Status Admit Date Acute respiratory failure wi th hypoxia and hypercapnia acute October 6:12pm CHF (congestive heart failure) acute October 31, 2024 6:12pm Elevated troponin acute October 6:12pm Chronic obstructive pulmonar y disease with (acute) exacerbation resolved October 31, 2024 6 :12pm [facility] Work Phone: 1(334) 775-854606-03-2025 Evaluation note* Diagnosis Onset Date Resolution Status [...] COPD exacerbation chronic January 05, 2025 11:13am [facility] Work Phone: 1([phone]) 197-411106-03-2025 Discharge summary Author Janak Hernandez [facility] Note Date/Time October 31, 2024 5:44p m [facility] Medical Records Department [address] [place] [address] Emergency Department Summary 10/31/24 MR#: [id number] Acct: [id number] Name: DESIRE CHAUDHRY Rep #:[id number] : 1950 73 From: Janak Hernandez DO [...] has been compliant with all her medications [facility] Medical History Constipation Emphysema lung Thrombocytopenia Stroke/cerebrovascular [...] months and is following up with the corporate travel coordinator for this this is not new Cardiovascular: [...] follow commands knew that she was at [facility] the year is 2024 NIH of 0 [...] 78.2 H Lymph % (Auto) 10.1 L [place] % (Auto) 9.9 Eos % (Auto) 0.2 [...] Clarity Cloudy Urine pH 6.0 Ur Specific [place] 1.020 Urine Protein 500 H Urine Glucose [...] Other nonacute findings documented above. Reading Location: [place] [address] Discharge Plan Triage Chief Complaint: Shortness of [...] DO [Primary Care Provider] - Print Language: Kenyan Disposition Disposition: Acute Care Hospital [facility] What to do if you have Problems For any increased pain, shortness of breath, bleeding, nausea or vomiting, chestpain, or any unexpected problems, contact your Primary Care Provider. Call [facility] ([phone]) or report to the closest Emergency Room. Call 911 if necessary. 10/31/24 1744 <Electronically signed by Janak Hernandez DO> Cosigner Signature (if applicable): CC: Dr. Zee Jose DO ~ Signed [facility] Work Phone: [phone]) 897-711906-03-2025 Discharge summary [facility] Medical Records Department [address] [place] [address] Emergency Department Summary 10/31/24 MR#: [id number] Acct: [id number] Name: DESIRE CHAUDHRY Rep #:[id number] : 1950 73 From: Janak Hernandez DO [...] has been compliant with all her medications [facility] Medical History Constipation Emphysema lung Thrombocytopenia Stroke/cerebrovascular [...] for months and is followingup with the corporate travel coordinator for this this is not new Cardiovascular: [...] follow commands knew that she was at [facility] the year is 2024 NIH of0 GCS [...] 78.2 H Lymph % (Auto) 10.1 L [place] % (Auto) 9.9 Eos % (Auto) 0.2 [...] Clarity Cloudy Urine pH 6.0 Ur Specific [place] 1.020 Urine Protein 500 H Urine Glucose [...] Other nonacute findings documented above. Reading Location: [place] [address] Discharge Plan Triage Chief Complaint: Shortness of [...] DO [Primary Care Provider] - Print Language: Kenyan Disposition Disposition: Acute Care Hospital [facility] What to do if you have Problems For any increased pain, shortness of breath, bleeding, nausea or vomiting, chestpain, or any unexpected problems, contact your Primary Care Provider. Call [facility] ([phone]) or report tothe closest Emergency Room. Call 911 if necessary. 10/31/24 1744 Cosigner Signature (if applicable): CC: Dr. Zee Jose DO ~ Signed [facility]06-03-2025 Radiology Diagnostic study note [facility] Imaging Services [address] [place], [place] [address] Chest PA and Lateral MR#: [id number] Acct: [id number] Name: DESIRE CHAUDHRY Rep #: [id number] : 1950 F 73 From: Merline Hendrickson MD PCP: Dr. Zee Jose DO Status: [facility] ER Study:Chest PA and Lateral Date of Exam: 10/31/24 Exam# [id number] Ordering Dr: Kecia Hernandez DO PROCEDURE: CHEST [...] Other nonacute findings documented above. Reading Location: [place] [address] CC: Dr. Zee Jose DO; Dr. Janak Hernandez DO ~ Maintenance Inspector: Signed [facility]08-26-2024 [facility] Teja Zeng [facility] Note Date/Time November 03, 2024 11:33 am [facility] Medical Records Department [address] [place] [address] Instructions for Home/Discharge Instructions 11/03/24 1129 MR#: [id number] Acct: [id number] Name: DESIRE CHAUDHRY Rep #:[id number] : 1950 73 From: Teja post MD [...] DO; Dr. Laura Sol MD ~ Signed [facility] Work Phone: Evaluation note* Diagnosis Onset Date Resolution Status Generalized weakness acute Hypoxia acute Viral syndrome acute [facility] Work Phone: Evaluation note* Diagnosis Onset Date Resolution Status Acute respiratory failure with hypoxia and hypercapnia acute Generalized weakness acute Hypoxia acute Pneumonia due to COVID-19 virus acute Renal failure acute Toxic encephalopathy acute Viral syndrome acute [facility] Work Phone: Evaluation noteNo assessment information available [facility] Work Phone: Evaluation note* Diagnosis Onset Date Resolution Status Admit Date Acute respiratory failure wi th hypoxia and hypercapnia acute October 6:12pm Elevated troponin acute October 6:12pm Chronic obstructive pulmonar y disease with (acute) exacerbation chronic October 31, 2024 6:12pm [facility] Work Phone: Evaluation note* Diagnosis Chronic obstructive pulmonary disease, unspecified COPD type (HCC) documented in this encounter [facility] note* Diagnosis Chronic obstructive pulmonary disease, unspecified COPD type (HCC) Chronic obstructive pulmonary disease, unspecified COPD type (HCC) Stage 3 severe COPD by GOLD classification ([facility] Primary Chronic respiratory failure with hypoxia and hypercapnia (HCC) YESSY (obstructive sleep apnea) Obstructive sleep apnea (adult) (pediatric) Former cigarette smoker Personal history of tobacco use, presenting hazards to health Morbid obesity (HCC) Morbid obesity Pulmonary hypertension (HCC) Other chronic pulmonary heart diseases [facility] (n[facility]ative)No reason for referral information availableUniversity [facility]als [facility] Work Phone: Chief Complaint and Reason for [...] November 30, 2021 8 :30pm Power of Layboy Operator Yes November 30, 2021 8:30pm Name of Medical Power of Layboy Operator ARLYN WOLFE November 30, 2021 8:30pm Advance Directive Response Recorded Date/ Time Name of Medical Power of Layboy Operator Sharita November 30, 2021 11:02pm Advance Directives Yes October 20 1:05pm Living Will Yes November 30, 2021 1 1:02pm Power of Layboy Operator Yes November 30, 2021 11:02pm Advance Directive Response Recorded Date/ Time Advance Directives Yes October 20 1:05pm Living Will No August 24, 2022 9:29am Power of Layboy Operator No August 24 9:29am Advance Directive Response Recorded Date/ Time Do you have a Healthcare Power of Layboy Operator? Yes October 31, 2024 8:02pm Advance Directives Yes October 20 1:05pm Advance Directive Response Recorded Date/ Time Do you have a Healthcare Power of Layboy Operator? Yes October 31, 2024 1:41pm Advance Directives Yes October 20 1:05pm Advance Directive Response Recorded Date/ Time Do you have a Healthcare Power of Layboy Operator? No January 05, 2025 9:56am Do you have a Healthcare Power of Layboy Operator? Yes October 31, 2024 8:02pm Advance Directives Yes October 20 1:05pm Advance Directive Response Recorded Date/ Time Do you have a Healthcare Power of Layboy Operator? Yes January 05, 2025 12:50pm Name of Medical Power of Layboy Operator Michele Tirado January 05, 2025 12:50pm Do you have a Healthcare Power of Layboy Operator? Yes October 31, 2024 8:02pm Advance Directives [...] S tart: January 07, 2025 Dr. Rhona aMlave MD Other Provider Active Start: January 07, [...] Active Start: January 08, 2025 Dr. Lobito Bensno MD Emergency Provider Active S tart: January 08, 2025 Dr. Laura Sol MD Admit Provider Active St art: January 08, 2025 Dr. Laura Sol MD Attending Provider Active Start: January 08, 2025 Dr. Laura Sol MD Other Provider Active St art: January 08, 2025 Nursing Professor Relationship Specialty Start Date End Date Rebeca Zee DO Meka [address] [place] [address] PCP - General Family Medicine 01/16/25 Nursing Professor Relationship Specialty Start Date End Date Zee Jose DO [address] [place] [address] PCP - General Family Medicine 01/16/25 Nursing Professor Relationship Specialty Start Date End Date Zee Jose DO [address] [place] [address] PCP - General Family Medicine 01/16/25 INFORMATION SOURCE (unrecogn ized section and content) DATE CREATED AUTHOR [facility]14/20[facility] DATE CREATED AUTHOR AUTHOR'S ORGANIZ ATION 03/24/2025 [facility] Source Comments (unrecognize d section and content) In the event this informatio n is protected by the Federal Confidentiality of Alcohol and Drug Abuse Patient Records regulations: The Federal rules restrict any use of the information to criminally investigate or prosecute any alcohol or drug abuse patient.[facility] the event this information is protected by the Federal Confidentiality of Alcohol and Drug Abuse Patient Records regulations: The Federal rules restrict any use of the information to criminally investigate or prosecute any alcohol or drug abuse patient.[facility] the event this information is protected by the Federal Confidentiality of Alcohol and Drug Abuse Patient Records regulations: The Federal rules restrict any use of the information to criminally investigate or prosecute any alcohol or drug abuse patient.[facility] the event this information is protected by the Federal Confidentiality of Alcohol and Drug Abuse Patient Records regulations: The Federal rules restrict any use of the information to criminally investigate or prosecute any alcohol or drug abuse patient.[facility] Reason for Visit (unrecogniz ed section and content) Reason Comments Spirometry Specialty Diagnoses / Procedures Referred By Kp t Referred To Contact [facility] Diagnoses Chronic obstructive pulmonary disease, unspecified COPD type (HCC) Procedures LUNG DIFFUSION CAPACITY (DLCO) DIFFUSING CAPACITY Katharine Akhtar MD [address] [place] [address] Phone: tel: fax: [address] [phone] Referral ID Status Reason Start Date Expiration Date V isits Requested Visits Authorized [id number] Closed Auto-Generate d Referral 01/16/2025 02/15/2026 1 1 Specialty Diagnoses / Procedures Referred By Contac t Referred To [facility] Diagnoses Chronic obstructive pulmonary disease, unspecified COPD type (HCC) Procedures SPIROMETRY WITH DILATOR IF OBSTRUCTED BRNCDILAT RSPSE SPMTRY PRE&POST-BRNCDILAT ADMN Katharine Akhtar MD [address] [place] [address] Phone: tel: fax: [address] [phone] Referral ID Status Reason Start Date Expiration Date V isits Requested Visits Authorized [id number] Closed Auto-Generate d Referral 01/16/2025 02/15/2026 1 [...] BE BASED ON THE PRIMARY CLINICAL RECORDS. [employer] provides no warranty or guarantee of the accuracy or completeness of information in this document.
--- NOTE | 2025-05-06 04:11 | EX.ED.DYSGE1 ---
HPI History of Present Illness Chief Complaint: Fall Narrative Narrative: Patient was seen and examined after presenting to ED for evaluation from [facility] after patient states that she was on the toilet she slipped off of it landed directly on her buttocks did not hit her head did not lose consciousness not on blood thinners she states that she does not want anything evaluated apparently [facility] stated that they had a blood pressure in the 70s that was not seen with EMS or here with us. [facility] Medical History Chronic anticoagulation Chronic anemia Constipation Emphysema lung Thrombocytopenia Stroke/cerebrovascular accident History of pulmonary embolism HLD (hyperlipidemia) Chronic back pain COPD (chronic obstructive pulmonary disease) HTN (hypertension) Home Medications ?Medication ?Instructions ?Recorded ?Last Taken ?Type gemfibrozil 600 mg tablet 600 mg PO BID cholesteol 03/03/19 10/31/24 History apixaban 5 mg tablet (Eliquis) 5 mg PO BID blood thinner 01/21/24 10/31/24 History albuterol sulfate 90 mcg/actuation 2 puff inhalation Q6H PRN PRN 01/05/25 Unknown History aerosol inhaler wheezing budesonide-formoterol HFA 80 2 puff inhalation Q12H COPD 01/05/25 Unknown History mcg-4.5 mcg/actuation aerosol inhaler (Breyna) gabapentin 300 mg capsule 300 mg PO Q12H 01/05/25 Unknown History sennosides 8.6 mg-docusate sodium 2 tab-cap PO BID PRN constipation 01/05/25 Unknown History 50 mg tablet (Senna with Docusate Sodium) furosemide 40 mg tablet 40 mg PO DAILY #30 tabs 01/08/25 Unknown Rx OXYGEN - Supplemental ([facility] 04/23/25 Unknown History INFORMATIONAL USE ONLY) acetaminophen 325 mg capsule 325 mg PO Q4H PRN fever or pain 04/23/25 Unknown History loperamide 2 mg tablet 2 mg PO Q6H PRN loose stool 04/23/25 Unknown History (Anti-Diarrheal (loperamide)) magnesium hydroxide 400 mg/5 mL 30 ml PO PRN 04/23/25 Unknown History oral suspension (Gentle Laxative (magnesium hydroxide)) metoprolol tartrate 25 mg tablet 25 mg PO BID 04/23/25 Unknown History guaifenesin 600 mg tablet, 1,200 mg (2 x 600 mg) PO BID 10 04/25/25 Unknown Rx extended release 12 hr (Mucinex) days #40 tabs prednisone 20 mg tablet 20 mg PO BID 7 days #14 tabs 04/25/25 Unknown Rx spironolactone 25 mg tablet 25 mg PO DAILY #30 tabs 04/25/25 Unknown Rx (Aldactone) Allergy/AdvReac Type Severity Reaction Status Date / Time No Known Allergies Allergy Verified 05/06/25 02:37 Family History Mother Heart disease Father Heart disease Surgical History Previous back surgery Social History housing: assisted living facility Smoking Status: Former smoker alcohol intake: never substance use type: does not use ROS ROS ED ROS Narrative Pertinent Positives: Asymptomatic states that she just slipped off the toilet seat Pertinent Negatives: Chest pain fevers chills vomiting abdominal pain shortness of breath The remainder of review of systems negative unless otherwise stated in the HPI above. Systems reviewed including constitutional, psychiatric, cardiovascular, respiratory, integument, HENT, gastrointestinal. EXAM Physical Exam Narrative Exam Narrative: Afebrile hemodynamically stable does not appear toxic or in distress she is normocephalic atraumatic pupils equal round reactive to light nontender cervical spine no step-off deformities nontender chest wall her pelvis is stable she states that she is nonambulatory at baseline uses a wheelchair because of residual deficits of her left lower extremity. Const Vital Signs: 05/06/25 02:33 05/06/25 02:37 Temperature 98.6 F Temperature Source Oral Pulse Rate 60 Respiratory Rate 18 Respiratory Effort Normal Blood Pressure 121/46 H Blood Pressure Mean 71 Pulse Ox 95 Oxygen Delivery Method Room Air Room Air MDM MDM MDM Narrative Medical decision making narrative: Nursing notes, triage notes, available previous documentation, and vital signs were reviewed. Any discrepancies noted were addressed. Differential Diagnoses: Does not seem to have any symptoms that would be cause for concern for infectious causes or an intracranial injury or hip fracture Previous Documentation Reviewed: None available or applicable at this time. ED Course: Patient presenting with reason as stated above patient was offered labs and imaging however patient declined states she does not need them that she wants to go back to her facility she is completely asymptomatic states that she just slid down onto her buttocks so return precautions follow-up recommendations provided patient again completely hemodynamically stable here she is stable for discharge. This note was made utilizing voice recognition software. All attempts were made to correct spelling or other errors prior to note completion. However, due to the fast-paced nature of emergency medicine, some errors may still be present. Discharge Plan Triage Chief Complaint: Fall ED Provider: Estrada Louie Dx/Rx/DC Orders Clinical Impression: Encounter for medical screening examination Instructions: ED Screening Exam Medical Nonurgent Prescriptions: No Action gemfibrozil 600 MG tablet 600 mg PO BID albuterol sulfate 90 mcg/actuation HFA aerosol inhaler 2 puff inhalation Q6H PRN PRN (Reason: wheezing) budesonide-formoterol [Breyna] 80-4.5 mcg/actuation HFA aerosol inhaler 2 puff inhalation Q12H gabapentin 300 mg capsule 300 mg PO Q12H sennosides-docusate sodium [Senna with Docusate Sodium] 8.6-50 mg tablet 2 tab-cap PO BID PRN (Reason: constipation) furosemide 40 mg Tablet 40 mg PO DAILY Qty: 30 2RF loperamide [Anti-Diarrheal (loperamide)] 2 mg tablet 2 mg PO Q6H PRN (Reason: loose stool) magnesium hydroxide [Gentle Laxative (mag hydrox)] 400 mg/5 mL suspension 30 ml PO PRN acetaminophen 325 mg capsule 325 mg PO Q4H PRN (Reason: fever or pain) metoprolol tartrate 25 mg Tablet 25 mg PO BID (DME) OXYGEN - Supplemental ([facility] INFORMATIONAL USE ONLY) 0 .ROUTE .MEDSUPPLY Patient Comments: 2lpm O2 @HS spironolactone [Aldactone] 25 mg tablet 25 mg PO DAILY Qty: 30 0RF prednisone 20 mg tablet 20 mg PO BID 7 Days Qty: 14 0RF guaifenesin [Mucinex] 600 mg tablet extended release 12hr 1,200 mg PO BID 10 Days Qty: 40 0RF Eliquis 5 mg tablet 5 mg PO BID Primary Care Provider: Matthew Valdivia Referrals: Matthew Valdivia DO [Primary Care Provider, Family Practice] Print Language: Macedonian Disposition Disposition: Home, Self Care
[2025-05-06 04:21] VITALS: BP 101/51; PULSE 88; RESP 16; TEMP 36.3; O2SAT 97
== END 2025-05-06 04:22 | disposition intermediate care facility (04) ==
PROVIDERS: Emergency Provider Specialist/Technologist Athletic Trainer; PCP Family Medicine; Visit Provider Specialist/Technologist Athletic Trainer
DX: Z13.9 Encounter for screening, unspecified (principal); J44.9 Chronic obstructive pulmonary disease, unspecified; I10 Essential (primary) hypertension; Z87.891 Personal history of nicotine dependence; E78.5 Hyperlipidemia, unspecified; Z86.73 Personal history of transient ischemic attack (TIA), and cerebral infarction without residual deficits; Z79.899 Other long term (current) drug therapy; Z79.51 Long term (current) use of inhaled steroids
CPT/HCPCS: 99284

== ENCOUNTER 2025-05-14 16:37 | Emergency (ER) | payer MEDICARE, OTHER, SELFPAY ==
[2025-05-14 16:38] VITALS: BP 130/58; PULSE 64; RESP 18; TEMP 36.4; O2SAT 94; BMI 41.2
--- NOTE | 2025-05-14 16:55 | EDS_ITS ---
HPI History of Present Illness Chief Complaint: Fall [facility] Medical History Chronic anticoagulation Chronic anemia Constipation Emphysema lung Thrombocytopenia Stroke/cerebrovascular accident History of pulmonary embolism HLD (hyperlipidemia) Chronic back pain COPD (chronic obstructive pulmonary disease) HTN (hypertension) Home Medications ?Medication ?Instructions ?Recorded ?Last Taken ?Type gemfibrozil 600 mg tablet 600 mg PO BID cholesteol 09/1610/31/24 History apixaban 5 mg tablet (Eliquis) 5 mg PO BID blood thinn er 01/21/24 10/31/24 History albuterol sulfate 90 mcg/actuation 2 puff inhalation Q
--- NOTE | 2025-05-14 16:55 | EX.ED.GENINJ ---
HPI History of Present Illness Chief Complaint: Fall [facility] Medical History Chronic anticoagulation Chronic anemia Constipation Emphysema lung Thrombocytopenia Stroke/cerebrovascular accident History of pulmonary embolism HLD (hyperlipidemia) Chronic back pain COPD (chronic obstructive pulmonary disease) HTN (hypertension) Home Medications ?Medication ?Instructions ?Recorded ?Last Taken ?Type gemfibrozil 600 mg tablet 600 mg PO BID cholesteol 03/03/19 10/31/24 History apixaban 5 mg tablet (Eliquis) 5 mg PO BID blood thinner 01/21/24 10/31/24 History albuterol sulfate 90 mcg/actuation 2 puff inhalation Q6H PRN PRN 01/05/25 Unknown History aerosol inhaler wheezing budesonide-formoterol HFA 80 2 puff inhalation Q12H COPD 01/05/25 Unknown History mcg-4.5 mcg/actuation aerosol inhaler (Breyna) gabapentin 300 mg capsule 300 mg PO Q12H 01/05/25 Unknown History sennosides 8.6 mg-docusate sodium 2 tab-cap PO BID PRN constipation 01/05/25 Unknown History 50 mg tablet (Senna with Docusate Sodium) furosemide 40 mg tablet 40 mg PO DAILY #30 tabs 01/08/25 Unknown Rx OXYGEN - Supplemental ([facility] 04/23/25 Unknown History INFORMATIONAL USE ONLY) acetaminophen 325 mg capsule 325 mg PO Q4H PRN fever or pain 04/23/25 Unknown History loperamide 2 mg tablet 2 mg PO PRN loose stool 04/23/25 Unknown History (Anti-Diarrheal (loperamide)) magnesium hydroxide 400 mg/5 mL 30 ml PO PRN 04/23/25 Unknown History oral suspension (Gentle Laxative (magnesium hydroxide)) metoprolol tartrate 25 mg tablet 25 mg PO BID 04/23/25 Unknown History prednisone 20 mg tablet 20 mg PO BID 7 days #14 tabs 04/25/25 Unknown Rx spironolactone 25 mg tablet 25 mg PO DAILY #30 tabs 04/25/25 Unknown Rx (Aldactone) Allergy/AdvReac Type Severity Reaction Status Date / Time No Known Allergies Allergy Verified 05/14/25 16:39 Family History Mother Heart disease Father Heart disease Surgical History Previous back surgery Social History housing: assisted living facility Smoking Status: Former smoker alcohol intake: never substance use type: does not use EXAM Physical Exam Const Vital Signs: 05/14/25 16:38 05/14/25 17:17 Temperature 97.6 F L Temperature Source Temporal Pulse Rate 64 Respiratory Rate 18 Respiratory Effort Normal Non-Labored Respiratory Depth Normal Respiratory Pattern Normal Blood Pressure 130/58 H Blood Pressure Mean 82 Pulse Ox 94 Oxygen Delivery Method Room Air MDM MDM MDM Narrative Medical decision making narrative: HISTORY OF PRESENT ILLNESS: Chief complaint: Fall 74-year-old female presents after fall injuring her left knee. There is report of a laceration to the left van. Patient's history significant for atrial fibrillation (on Eliquis), COPD, CHF, hyperlipidemia, tobacco use. The patient further states she has been paralyzed on the left lower extremity for some time. She notes she slipped and fell onto her left lower leg. Denies hip pain. Denies back pain. Denies head trauma or loss of consciousness. Denies syncope. REVIEW OF SYSTEMS: Pertinent positives: Fall, left leg pain Pertinent negatives: Head trauma, loss of consciousness, vomiting. PHYSICAL EXAM: Nursing triage notes reviewed, Vital signs reviewed Primary Survey Airway: Intact Breathing: Bilateral breath sounds Circulation: Palpable bilateral femorals, Palpable bilateral radial, Palpable bilateral DP and Palpable bilateral PT Disability / Spine precautions GCS Score: Eye Openin Verbal Response: 5 Motor Response: 6 Secondary Survey Constitutional: Please see MDM Head: Atraumatic, Midface stable, NO jaw malocclusion, No Cephalohematoma, and No Lacerations noted Eye: Pupils equal round and reactive to light, Extraocular muscles intact and No periorbital ecchymosis or stepoff, no evidence of entrapment ENT: Oropharynx clear, no lacerations, no hemotympanum, no raccoon eyes or betts sign Cervical spine / Neck: No cervical spine bony tenderness, crepitance, or stepoff deformity Trachea midline Lungs: Clear to auscultation, No asymmetric rise and No crepitus, no flail chest Cardiac: Regular rate and rhythm and No murmurs Abdomen: Soft, Nontender and No rebound Pelvis: Pelvis stable to compression : No evidence of genital injury Back: No midline bony tenderness to thoracic/lumbar/sacral spines Neuro: Intact sensation L1-S1 dermatomal distributions. Intact 5/5 strength in hip flexion (T12-L3). Knee extension (L2-L4). Ankle dorsiflexion (L4-L5). Ankle plantar flexion (S1). Great toe extension (L5). 2+ patellar and Achilles DTRs. Extremities: NO gross Deformities, TTP over left tib-fib. TTP over left knee. Unable to assess extensor mechanism secondary to history of chronic left leg paralysis. Psych: Normal affect Skin: Approximately 2 cm linear laceration noted to the anterior surface of the mid tibia. No active bleeding. No obvious foreign bodies. Nursing triage notes reviewed, Vital signs reviewed MEDICAL DECISION MAKING: Chief Complaint: please see HPI External records reviewed: Reviewed prior imaging studies. Reviewed x-ray of the left knee from 2019 which showed mild arthrosis of the medial and lateral femoral-tibial compartment Factors affecting care: As per HPI Social determinants of health: History of tobacco History obtained from others: none Consults: none [facility] Narrative: Patient was initially hemodynamically stable, afebrile and nontoxic-appearing. Primary secondary trauma surveys concern for the following differential: I considered the following differential diagnosis: Bony injury to the left knee/left tib-fib I obtained an x-ray of the patient's left knee and left tibia to further determine if the patient was suffering from a life-threatening etiology. Initially treat the patient oral oxycodone applied let to the area for further hemostasis and pain control. ALL IMAGES (IF OBTAINED) HAVE BEEN PERSONALLY REVIEWED AND INTERPRETED BY MYSELF. X-rays read reviewed procedure myself X-ray of the left tibia/fibula showed no evidence's bony injury. X-ray of the left knee showed no obvious bony injury. Radiology read my interpretation Procedure: Laceration repair. The procedure was performed by myself. Indication: Wound repair Risks and benefits: risks, benefits and alternatives were discussed Consent: Consent was obtained. Wound Details: Approximately 2 cm vertically oriented linear laceration noted to anterior surface of the mid tibia approxi-1 mm depth. No foreign bodies or deeper structures involved. Anesthesia: Topical let Wound prep: Patient was prepped and draped in the usual sterile fashion. Tetanus: Up-to-date Irrigation Solution: Saline Wound Preparation: Wound was cleansed, cleaned chlorhexidine. The wound was explored to its base in a bloodless field. Procedure Description: Given blood thinner use, relatively small size laceration and superficial depth I chose to use Dermabond. Dermabond was placed with good approximation Tertiary exam without new injury. Although patient is having some pain and difficulty walking to lives at a fpc. She is safe for discharge back home to the fpc where she can receive appropriate care. Patient tolerated the procedure well with no immediate complications The patient and/or family, caregivers express understanding. The patient and/or family, caregivers agrees with the plan. Shared decision making: I will have a discussion with the patient and or visitors regarding risk/benefits of further testing or admission. They will be made aware of of the risk/benefits inherent in this decision they will be given the opportunity to voice understanding. Total critical care time today provided was at least 0 minutes. This excludes separately billable procedures. Critical care time (if documented) is secondary to the patient having high probability of clinically significant/life threatening deterioration in the patient's condition which required my urgent intervention. Impression: 1. Fall 2. Left leg 3. Left leg laceration Dispo: Discharge home This note was generated with [employer] dictation software. It may contain incorrect words, spelling, and punctuation that were not noted in review of the chart prior to signing. Radiography Diagnostic Testing: Clinical Impression(s) from Imaging Studies Knee X-Ray 05/14/25 17:06 IMPRESSION: No acute fracture or dislocation. Reading Location: [facility] Tibia/Fibula X-Ray 05/14/25 17:06 IMPRESSION: No acute fracture or dislocation. Reading Location: [facility] Discharge Plan Triage Chief Complaint: Fall ED Provider: Pito Miguel Dx/Rx/DC Orders Prescriptions: No Action gemfibrozil 600 MG tablet 600 mg PO BID albuterol sulfate 90 mcg/actuation HFA aerosol inhaler 2 puff inhalation Q6H PRN PRN (Reason: wheezing) budesonide-formoterol [Breyna] 80-4.5 mcg/actuation HFA aerosol inhaler 2 puff inhalation Q12H gabapentin 300 mg capsule 300 mg PO Q12H sennosides-docusate sodium [Senna with Docusate Sodium] 8.6-50 mg tablet 2 tab-cap PO BID PRN (Reason: constipation) furosemide 40 mg Tablet 40 mg PO DAILY Qty: 30 2RF loperamide [Anti-Diarrheal (loperamide)] 2 mg tablet 2 mg PO PRN magnesium hydroxide [Gentle Laxative (mag hydrox)] 400 mg/5 mL suspension 30 ml PO PRN acetaminophen 325 mg capsule 325 mg PO Q4H PRN (Reason: fever or pain) metoprolol tartrate 25 mg Tablet 25 mg PO BID (DME) OXYGEN - Supplemental ([facility] INFORMATIONAL USE ONLY) 0 .ROUTE .MEDSUPPLY Patient Comments: 2lpm O2 @HS spironolactone [Aldactone] 25 mg tablet 25 mg PO DAILY Qty: 30 0RF prednisone 20 mg tablet 20 mg PO BID 7 Days Qty: 14 0RF Eliquis 5 mg tablet 5 mg PO BID Primary Care Provider: Matthew Valdivia Referrals: Matthew Valdivia DO [Primary Care Provider, Family Practice] Print Language: Kazakh
--- NOTE | 2025-05-14 17:06 | RAD_ITS ---
PROCEDURE: LEFT KNEE 4 OR MORE VIEWS; TIBIA FIBULA 2 VIEWS 05/14/2025 REASON FOR EXAM: KNEE PAIN; PAIN TECHNIQUE: Procedure Code: RADKN; RADTF Modality: DX Procedure: KNEE 4 OR MORE VIEWS; TIBIA FIBULA 2 VIEWS Laterality: Left COMPARISON: 03/17/2019 FINDINGS: No evidence of acute fracture or dislocation. Joint spaces are relatively well preserved, with minimal arthrosis. Generalized qualitative osteopenia. No aggressive osseous lytic or blastic lesion. No appreciable joint effusion or marked soft tissue swelling. Scattered atherosclerotic vascular calcifications. RAD/Tibia & Fibula 2 Views IMPRESSION: No acute fracture or dislocation. Reading Location: [id number]
--- NOTE | 2025-05-14 17:06 | RAD_ITS ---
PROCEDURE: LEFT KNEE 4 OR MORE VIEWS; TIBIA FIBULA 2 VIEWS 05/14/2025 REASON FOR EXAM: KNEE PAIN; PAIN TECHNIQUE: Procedure Code: RADKN; RADTF Modality: DX Procedure: KNEE 4 OR MORE VIEWS; TIBIA FIBULA 2 VIEWS Laterality: Left COMPARISON: 03/17/2019 FINDINGS: No evidence of acute fracture or dislocation. Joint spaces are relatively well preserved, with minimal arthrosis. Generalized qualitative osteopenia. No aggressive osseous lytic or blastic lesion. No appreciable joint effusion or marked soft tissue swelling. Scattered atherosclerotic vascular calcifications. RAD/Knee 4 or More Views IMPRESSION: No acute fracture or dislocation. Reading Location: [id number]
[2025-05-14] MEDS: Lidocaine/Epi/Tetracaine 50 ML 1 APPLIC TOPICAL (17:13)
[2025-05-14 18:44] VITALS: BP 145/68; PULSE 87; RESP 18; O2SAT 97
[2025-05-14 18:45] VITALS: BP 145/68; PULSE 87; RESP 18; TEMP 36.7; O2SAT 97
== END 2025-05-14 18:47 | disposition home or self-care (01) ==
PROVIDERS: Emergency Provider Emergency Medicine; PCP Family Medicine; Visit Provider Emergency Medicine
DX: S81.812A Laceration without foreign body, left lower leg, initial encounter (principal); I11.0 Hypertensive heart disease with heart failure; I50.9 Heart failure, unspecified; J44.9 Chronic obstructive pulmonary disease, unspecified; E78.5 Hyperlipidemia, unspecified; Z87.891 Personal history of nicotine dependence; Z86.711 Personal history of pulmonary embolism; Z86.73 Personal history of transient ischemic attack (TIA), and cerebral infarction without residual deficits; Z79.01 Long term (current) use of anticoagulants; Z79.899 Other long term (current) drug therapy; Z79.51 Long term (current) use of inhaled steroids; W01.0XXA Fall on same level from slipping, tripping and stumbling without subsequent striking against object, initial encounter
CPT/HCPCS: 12001; 73564; 73590; 99285